=== PATIENT | female | born 1945 | race Caucasian/White ===

== ENCOUNTER 2019-04-20 12:21 | Outpatient (CLI) | payer MEDICARE, OTHER, SELFPAY ==
[2019-04-20 12:57] LABS: Hemoglobin A1C 5.7 % (<5.7)
[2019-04-20 13:01] LABS: Blood Urea Nitrogen 20 mg/dL (7-17); Calcium 8.5 mg/dL (8.4-10.2); Carbon Dioxide 18 mmol/L (22-30); Chloride 111 mmol/L (98-107); Estimated Glomerular Filt Rate 18; Glucose 274 mg/dL (65-105); Potassium 2.9 mmol/L (3.4-5.0); Sodium 140 mmol/L (137-145)
== END 2019-04-20 12:22 | disposition home or self-care (01) ==
PROVIDERS: PCP Family Medicine Adolescent Medicine; Visit Provider Family Medicine Adolescent Medicine
DX: N18.3 Chronic kidney disease, stage 3 (moderate) (principal); E11.22 Type 2 diabetes mellitus with diabetic chronic kidney disease
CPT/HCPCS: 36415; 80048; 83036

== ENCOUNTER 2019-05-17 14:35 | Outpatient (CLI) | payer MEDICARE, OTHER, SELFPAY ==
[2019-05-17 15:12] LABS: Hemoglobin 11.5 g/dL (12.0-15.0); Mean Corpuscular HGB Conc 32.9 g/dl (32-36); Mean Corpuscular Hemoglobin 27.8 pg (26-34); Mean Corpuscular Volume 84.7 fl (80-100); Platelet Count Result 174 k/mm3 (150-375); Red Blood Count 4.13 M/mm3 (4.2-5.4); Red Cell Distribution Width 14.7 % (11.5-14.5); White Blood Count 8.7 K/mm3 (4.5-10.0)
[2019-05-17 15:17] LABS: Potassium 3.8 mmol/L (3.4-5.0)
[2019-05-17 15:18] LABS: Alanine Aminotransferase 22 U/L (4-35); Albumin Level 2.9 g/dL (3.5-5.1); Alkaline Phosphatase 74 U/L (38-126); Aspartate Amino Transferase 21 U/L (14-36); Bilirubin,Total 0.4 mg/dL (0.2-1.3); Blood Urea Nitrogen 30 mg/dL (7-17); Calcium 8.6 mg/dL (8.4-10.2); Carbon Dioxide 21 mmol/L (22-30); Chloride 110 mmol/L (98-107); Estimated Glomerular Filt Rate 20; Glucose 124 mg/dL (65-105); Sodium 142 mmol/L (137-145)
== END 2019-05-17 14:36 | disposition home or self-care (01) ==
LOC: ANHLAB 14:37
PROVIDERS: PCP Family Medicine Adolescent Medicine; Visit Provider Family Medicine Adolescent Medicine
DX: R53.83 Other fatigue (principal); I12.9 Hypertensive chronic kidney disease with stage 1 through stage 4 chronic kidney disease, or unspecified chronic kidney disease; N18.4 Chronic kidney disease, stage 4 (severe); K50.913 Crohn's disease, unspecified, with fistula
CPT/HCPCS: 36415; 80053; 84443; 85027

== ENCOUNTER 2019-05-17 15:22 | Outpatient (CLI) | payer MEDICARE, OTHER, SELFPAY ==
--- NOTE | ~2019-05-17 | XR_ITS ---
XR knee RT min 4V 05/17/2019 15:53 Indication: Osteoarthritis. Chronic right knee pain. Procedure: 4 views right knee Comparison: No prior studies for comparison. Findings: There is mild tricompartment osteoarthritis. There is chondrocalcinosis. There is a small j oint effusion. Osteopenia. No acute fracture or traumatic malalignment. Impression: 1: Mild tricompartment osteoarthritis of the right knee. 2: Chondrocalcinosis. Reviewed, dictated and finalized at location B. GE MECHANIC Impression: 1: Mild tricompartment osteoarthritis of the right knee. 2: Chondrocalcinosis.
--- NOTE | ~2019-05-17 | XR_ITS ---
XR tibia fibula RT 2V 05/17/2019 15:53 Indication: Primary osteoarthritis Procedure: 2 views right tibia/fibula Comparison: No prior studies for comparison. Findings: Osteopenia. There is osteoarthritis of the right knee. No acute fracture or traumatic malal ignment. No significant soft tissue abnormality. No radiopaque foreign bodies. Impression: 1: No acute bone or joint abnormality. Reviewed, dictated and finalized at location B. H BURNER Impression: 1: No acute bone or joint abnormality.
== END 2019-05-17 15:23 | disposition home or self-care (01) ==
LOC: ANHIMG 15:27
PROVIDERS: PCP Family Medicine Adolescent Medicine; Visit Provider Family Medicine Adolescent Medicine
DX: M17.11 Unilateral primary osteoarthritis, right knee (principal)
CPT/HCPCS: 36415; 73564; 73590; 80053; 84443; 85027

== ENCOUNTER 2019-07-12 13:10 | Outpatient (CLI) | payer MEDICARE, SELFPAY ==
[2019-07-12 13:35] LABS: Hematocrit 37.5 % (37.0-47.0); Mean Corpuscular Hemoglobin 27.9 pg (26-34); Mean Corpuscular Volume 87.2 fl (80-100); Mean Platelet Volume 8.6 fl (7.4-10.4); Platelet Count Result 220 k/mm3 (150-375); White Blood Count 10.9 K/mm3 (4.5-10.0)
[2019-07-12 13:47] LABS: Creatinine Urine 100.5 mg/dL
[2019-07-12 13:51] LABS: Alanine Aminotransferase 23 U/L (4-35); Albumin Level 2.8 g/dL (3.5-5.1); Blood Urea Nitrogen 35 mg/dL (7-17); Calcium 8.8 mg/dL (8.4-10.2); Carbon Dioxide 21 mmol/L (22-30); Chloride 116 mmol/L (98-107); Cholesterol 209 mg/dL (0-200); Estimated Glomerular Filt Rate 15; Glucose 149 mg/dL (65-105); HDL Direct 39 mg/dL; Phosphorus 4.8 mg/dL (2.5-4.5); Potassium 4.1 mmol/L (3.4-5.0); Sodium 139 mmol/L (137-145); Triglycerides 221 mg/dL (<150)
[2019-07-12 13:55] LABS: Total Protein Urine Random > 600 mg/dL
[2019-07-12 14:01] LABS: LDL Cholesterol Direct 117 mg/dL; Parathyroid Intact 90.6 pg/mL (7.5-53.5)
[2019-07-12 14:42] LABS: Vitamin D 25 Hydroxy < 12.8 ng/mL
== END 2019-07-12 13:11 | disposition home or self-care (01) ==
PROVIDERS: PCP Family Medicine Adolescent Medicine; Referring Provider Family Medicine Adolescent Medicine; Visit Provider Internal Medicine Nephrology
DX: N18.4 Chronic kidney disease, stage 4 (severe) (principal); E78.5 Hyperlipidemia, unspecified
CPT/HCPCS: 36415; 80061; 80069; 82306; 82570; 83970; 84156; 84460; 85027

== ENCOUNTER 2019-08-24 00:33 | Outpatient (CLI) | payer MEDICARE, SELFPAY ==
[2019-08-24 17:33] LABS: SARS-CoV-2 RNA PCR Negative
== END 2019-08-24 00:34 | disposition home or self-care (01) ==
LOC: ANHCOVIDDT 00:34
PROVIDERS: PCP Family Medicine Adolescent Medicine; Visit Provider Internal Medicine Gastroenterology
DX: Z01.818 Encounter for other preprocedural examination (principal); Z11.59 Encounter for screening for other viral diseases
CPT/HCPCS: 87635; C9803; U0003

== ENCOUNTER 2019-08-26 00:46 | Day surgery (SDC) | payer MEDICARE, SELFPAY ==
[2019-08-23 14:25] VITALS: BMI 31.2
[2019-08-26] VITALS (7 sets, daily range): BP systolic 156–216; BP diastolic 68–89; PULSE 68–83; RESP 19–20; TEMP 36.6; O2SAT 98–99; BMI 32.5
[2019-08-26 07:09] LABS: Glucose Point of Care 129 (65-105)
--- NOTE | 2019-08-26 07:19 | WPDANESEPPF ---
Anes - Initial Pre Proc Eval Procedure: Operation Date: 08/26/19 08:00 Proposed Procedures p Colonoscopy - Isaac Melendez MD Date/Time: 08/26/19 07:19 Surgeon: Isaac Melendez MD Pre Op Diagnosis: Diarrhea Patient Data Age: 74 Gender: F Height: 5 ft 3 in Weight: 80 kg Allergies Allergy/AdvReac Type Severity Reaction Status Date / Time cortisone Allergy Intermediate Dyspnea / Verified 08/26/19 07:09 SOB Penicillins Allergy Intermediate Dyspnea / Verified 08/26/19 07:09 SOB Home Medications Medication Instructions Recorded Confirmed Type acetaminophen [Tylenol Arthritis 650 mg PO Q12H 08/23/19 08/26/19 History Pain] allopurinol 300 mg PO DAILY 08/23/19 08/26/19 History buspirone 10 mg PO BID 08/23/19 08/26/19 History ferrous sulfate 325 mg PO DAILY 08/23/19 08/26/19 History levothyroxine 75 mcg PO DAILY 08/23/19 08/26/19 History loperamide [Imodium A-D] 2 mg PO Q6H PRN 08/23/19 08/26/19 History metoprolol tartrate 50 mg PO Q12H 08/23/19 08/26/19 History gjcqzljx-coq-xyaa-FA-lutein 1 tablet PO DAILY 08/23/19 08/26/19 History [Centrum Silver Women] sertraline 100 mg PO DAILY 08/23/19 08/26/19 History simvastatin 10 mg PO DAILY 08/26/19 08/26/19 History vitamin B complex [Super B-50 1 cap PO DAILY 08/26/19 08/26/19 History Complex] Laboratory Tests 08/26/19 07:04 POC Capillary Glucose 129 mg/dl H mg/dl (65-105) Patient hx anesthesia problems: none Family hx anesthesia problems: none PMFSH Past Medical History Medical History CAD (coronary artery disease) Depression Hypertension BEKA (obstructive sleep apnea) Surgical History Surgical History Stented coronary artery Anes - Eval Final PreProcedure Day of Procedure 08/26/19 07:19 Patient weight: obese Heart: regular rate and rhythm Lungs: clear to auscultation Airway: Mallampati scale class II Neurological: alert and oriented Last oral intake: >/= 8 hours ASA classification: III Emergent: no Anesthetic plan: proceed Anesthesia type and monitoring: general GIVS and standard monitoring Informed Consent: The patient's anesthetic plan and its attendant risks and benefits were discussed with the patient/family/POA. Questions were solicited and answers provided to the satisfaction of the patient/family/POA.
[2019-08-26] MEDS: SODIUM CHLORIDE 0.9% IV 500 ML 10 ML IV CONT (07:23)
[2019-08-26] MEDS: LABETALOL HCL INJ 100 MG/20 ML VIAL IV PUSH (07:31)
--- NOTE | 2019-08-26 07:57 | WPDGICN ---
Assessment and Plan Assessment and plan (1) Abdominal pain: Code(s): R10.9 - Unspecified abdominal pain Status: Acute Assessment and Plan: Patient has diffuse poorly local localized abdominal pain suspicious for irritable bowel syndrome. She gives a history of inflammatory bowel disease but no confirmatory results have been identified. Plan is for colonoscopy for surveillance purposes also to assist with diagnosis. Subsequently she may require treatment for IBD or fiber for possible IBS. (2) History of Crohn's disease: Code(s): Z87.19 - Personal history of other diseases of the digestive system Status: Acute Assessment and Plan: Patient gives a history of Crohn's disease but this is not substantiated. Plan is to defer treatment until colonoscopy and possible small-bowel follow-through to assess for status of this diagnosis. Further recommendations pending colonoscopy. (3) Obesity (BMI 30.0-34.9): Code(s): E66.9 - Obesity, unspecified Status: Acute GI Consult Note Consult date/time: 08/26/19 07:57 HPI: Layla Maher is a 74 year old female Seen in evaluation at the request of Dr. Bonds. Patient presents because of complaints of abdominal pain. She describes rather diffuse abdominal pain. Diarrhea shortly after eating. She denies any bleeding or weight loss. Past medical history is significant for obesity. She has a history of stage 4 chronic kidney disease. She reports that she was diagnosed as having Crohn's disease 6 or 7 years ago but was never placed on medications. Current medications include Imodium taken for control of her diarrhea. Family history is noncontributory. Review of Systems Review of Systems: All systems reviewed & are unremarkable except as noted in HPI and below PMFSH Past Medical History Medical History CAD (coronary artery disease) Depression Hypertension BEKA (obstructive sleep apnea) Surgical History Surgical History Stented coronary artery Meds Home Medications and Allergies Home Medications Medication Instructions Recorded Confirmed Type acetaminophen [Tylenol Arthritis 650 mg PO Q12H 08/23/19 08/26/19 History Pain] allopurinol 300 mg PO DAILY 08/23/19 08/26/19 History buspirone 10 mg PO BID 08/23/19 08/26/19 History ferrous sulfate 325 mg PO DAILY 08/23/19 08/26/19 History levothyroxine 75 mcg PO DAILY 08/23/19 08/26/19 History loperamide [Imodium A-D] 2 mg PO Q6H PRN 08/23/19 08/26/19 History metoprolol tartrate 50 mg PO Q12H 08/23/19 08/26/19 History mhchkcfk-cdr-qetr-FA-lutein 1 tablet PO DAILY 08/23/19 08/26/19 History [Centrum Silver Women] sertraline 100 mg PO DAILY 08/23/19 08/26/19 History simvastatin 10 mg PO DAILY 08/26/19 08/26/19 History vitamin B complex [Super B-50 1 cap PO DAILY 08/26/19 08/26/19 History Complex] Allergies Allergy/AdvReac Type Severity Reaction Status Date / Time cortisone Allergy Intermediate Dyspnea / Verified 08/26/19 07:09 SOB Penicillins Allergy Intermediate Dyspnea / Verified 08/26/19 07:09 SOB Vital Signs Vital Signs - 24 hr 08/26/19 07:17 08/26/19 07:25 08/26/19 07:31 Temperature 36.6 C Pulse Rate 70 68 69 Respiratory Rate 20 Blood Pressure 189/89 H 216/68 H Pulse Oximetry 98 08/26/19 07:45 Temperature Pulse Rate 82 Respiratory Rate Blood Pressure 159/83 H Pulse Oximetry Exam Narrative: Exam Narrative: Physical exam reveals patient to be alert. Somewhat anxious at rest. HEENT exam unremarkable. She is anicteric. Lungs are clear to auscultation and percussion. Heart is without murmur or extra sounds. Abdominal exam she is obese. Bowel sounds are present soft no localized tenderness noted. Digital external rectal exam is normal.
== END 2019-08-26 09:29 | disposition home or self-care (01) ==
PROVIDERS: PCP Family Medicine Adolescent Medicine; Visit Provider Internal Medicine Gastroenterology
PROC: 0DJD8ZZ Inspection of Lower Intestinal Tract, Via Natural or Artificial Opening Endoscopic (ICD-10-PCS; CPT 45378; principal; 2019-08-26 08:00)
DX: K58.0 Irritable bowel syndrome with diarrhea (principal); K64.8 Other hemorrhoids; I10 Essential (primary) hypertension; I25.10 Atherosclerotic heart disease of native coronary artery without angina pectoris; G47.33 Obstructive sleep apnea (adult) (pediatric); F32.9 Major depressive disorder, single episode, unspecified; Z95.5 Presence of coronary angioplasty implant and graft; E66.9 Obesity, unspecified; Z68.32 Body mass index [BMI] 32.0-32.9, adult
CPT/HCPCS: 45378; J2704; J7040

== ENCOUNTER 2019-08-30 07:37 | Outpatient (CLI) | payer MEDICARE, SELFPAY ==
--- NOTE | ~2019-08-30 | XR_ITS ---
EXAMINATION: XR small bowel follow through DATE: 08/30/2019 09:41 INDICATION: Abdominal pain. Diarrhea. TECHNIQUE: Oral contrast was administered, and a time course of radiographs of the abdomen was obtain ed. Fluoroscopy of the small bowel was performed. Fluoroscopy exposure time was 0.3 minutes. The tota l number of images was 13. COMPARISON: CT abdomen and pelvis 07/26/2014 FINDINGS: There are no dilated loops of bowel. No mass or stricture. The terminal ileum is normal. Transit time from the stomach to proximal colon was approximately 1.5 hours. Surgical clips in the right upper qu adrant are likely from cholecystectomy. IMPRESSION: 1. Normal small bowel series. Reviewed, dictated and finalized at location A.
== END 2019-08-30 07:38 | disposition home or self-care (01) ==
PROVIDERS: PCP Family Medicine Adolescent Medicine; Visit Provider Internal Medicine Gastroenterology
DX: R10.9 Unspecified abdominal pain (principal); R19.7 Diarrhea, unspecified
CPT/HCPCS: 74250

== ENCOUNTER 2019-09-14 14:28 | Outpatient (CLI) | payer MEDICARE, SELFPAY ==
[2019-09-14 15:16] LABS: Albumin Level 2.6 g/dL (3.5-5.1); Blood Urea Nitrogen 32 mg/dL (7-17); Calcium 7.9 mg/dL (8.4-10.2); Carbon Dioxide 17 mmol/L (22-30); Chloride 120 mmol/L (98-107); Estimated Glomerular Filt Rate 12; Glucose 175 mg/dL (65-105); Phosphorus 4.9 mg/dL (2.5-4.5); Sodium 140 mmol/L (137-145)
== END 2019-09-14 14:29 | disposition home or self-care (01) ==
PROVIDERS: PCP Family Medicine Adolescent Medicine; Referring Provider Family Medicine Adolescent Medicine; Visit Provider Internal Medicine Nephrology
DX: N18.4 Chronic kidney disease, stage 4 (severe) (principal)
CPT/HCPCS: 36415; 80069

== ENCOUNTER 2019-09-29 15:54 | Outpatient (CLI) | payer MEDICARE, SELFPAY ==
[2019-09-29 16:53] LABS: Hematocrit 34.4 % (37.0-47.0); Mean Corpuscular Hemoglobin 28.7 pg (26-34); Mean Corpuscular Volume 89.8 fl (80-100); Mean Platelet Volume 8.9 fl (7.4-10.4); Platelet Count Result 233 k/mm3 (150-375); Red Blood Count 3.83 M/mm3 (4.2-5.4); Red Cell Distribution Width 16.8 % (11.5-14.5); White Blood Count 9.9 K/mm3 (4.5-10.0)
[2019-09-29 17:01] LABS: Alanine Aminotransferase 36 U/L (4-35); Albumin Level 2.9 g/dL (3.5-5.1); Alkaline Phosphatase 94 U/L (38-126); Aspartate Amino Transferase 35 U/L (14-36); Bilirubin,Total < 0.1 mg/dL (0.2-1.3); Blood Urea Nitrogen 37 mg/dL (7-17); Calcium 8.3 mg/dL (8.4-10.2); Carbon Dioxide 18 mmol/L (22-30); Chloride 117 mmol/L (98-107); Estimated Glomerular Filt Rate 12; Glucose 146 mg/dL (65-105); Potassium 3.3 mmol/L (3.4-5.0); Sodium 141 mmol/L (137-145)
[2019-09-29 17:13] LABS: Add Urine Microscopic? YES; Appearance Urine Clear (Clear); Bacteria Urine Trace /hpf; Bilirubin Urine Negative (Negative); Blood Urine Negative (Negative); Color Urine Yellow (Yellow); Glucose Urine UA 2+ mg/dL (Negative); Ketones Urine Negative (Negative); Leukocyte Esterase Ur Negative LEU/UL (NEGATIVE); Mucus Urine Rare /lpf; Nitrate Urine Negative (Negative); Protein Urine 3+ mg/dL (Negative); RBC Urine 0-2 /hpf (0-2); Specific Grav Ur 1.018 (1.001-1.035); Squamous Epithelial Cell Urine Occasional /hpf (Few); Urobilinogen Urine Negative mg/dL (<2.0); WBC Urine 16-20 /hpf (0-3)
== END 2019-09-29 15:55 | disposition home or self-care (01) ==
LOC: ANHLAB 15:59
PROVIDERS: PCP Family Medicine Adolescent Medicine; Visit Provider Family Medicine Adolescent Medicine
DX: E11.22 Type 2 diabetes mellitus with diabetic chronic kidney disease (principal); R53.83 Other fatigue; N18.4 Chronic kidney disease, stage 4 (severe); K50.913 Crohn's disease, unspecified, with fistula
CPT/HCPCS: 36415; 80053; 81001; 83036; 85027

== ENCOUNTER 2019-10-28 15:29 | Outpatient (CLI) | payer MEDICARE, SELFPAY ==
[2019-10-28 16:19] LABS: Hematocrit 32.1 % (37.0-47.0); Hemoglobin 10.4 g/dL (12.0-15.0); Mean Corpuscular HGB Conc 32.4 g/dl (32-36); Mean Corpuscular Volume 89.4 fl (80-100); Platelet Count Result 200 k/mm3 (150-375); Red Blood Count 3.59 M/mm3 (4.2-5.4); Red Cell Distribution Width 16.4 % (11.5-14.5); White Blood Count 9.8 K/mm3 (4.5-10.0)
[2019-10-28 16:26] LABS: Creatinine Urine 97.4 mg/dL
[2019-10-28 16:30] LABS: Albumin Level 2.9 g/dL (3.5-5.1); Anion Gap 8 mmol/L (8-16); Blood Urea Nitrogen 41 mg/dL (7-17); Calcium 8.2 mg/dL (8.4-10.2); Carbon Dioxide 15 mmol/L (22-30); Chloride 117 mmol/L (98-107); Estimated Glomerular Filt Rate 11; Glucose 120 mg/dL (65-105); Potassium 3.3 mmol/L (3.4-5.0); Sodium 140 mmol/L (137-145)
[2019-10-28 16:42] LABS: Parathyroid Intact 54.5 pg/mL (7.5-53.5)
[2019-10-28 17:12] LABS: Total Protein Urine Random > 600 mg/dL
[2019-10-28 17:47] LABS: Vitamin D 25 Hydroxy < 12.8 ng/mL
== END 2019-10-28 15:30 | disposition home or self-care (01) ==
LOC: ANHLAB 15:34
PROVIDERS: PCP Family Medicine Adolescent Medicine; Visit Provider Internal Medicine Nephrology
DX: N18.4 Chronic kidney disease, stage 4 (severe) (principal)
CPT/HCPCS: 36415; 80069; 82306; 82570; 83970; 84156; 85027

== ENCOUNTER 2020-01-21 06:44 | Outpatient (NON) | payer MEDICARE, SELFPAY ==
[2020-01-23 00:53] LABS: SARS-CoV-2 RNA PCR Negative
== END 2020-01-21 06:45 ==
PROVIDERS: PCP Family Medicine Adolescent Medicine
DX: Z01.812 Encounter for preprocedural laboratory examination (principal); Z20.828 Contact with and (suspected) exposure to other viral communicable diseases
CPT/HCPCS: 87635; C9803; U0003

== ENCOUNTER 2020-01-30 17:51 | Emergency (ER) | payer MEDICARE, SELFPAY ==
[2020-01-30 18:01] VITALS: BP 214/77; PULSE 80; RESP 16; TEMP 36.5; O2SAT 100
--- NOTE | 2020-01-30 18:06 | ECG_ITS ---
Measurements Intervals [place] Rate: 77 P: -4 FL: 170 QRS: -29 QRSD: 90 T: 110 QT: 406 QTc: 460 Interpretive Statements SINUS RHYTHM DELAYED PRECORDIAL R/S TRANSITION BORDERLINE ST-T WAVE ABNORMALITY- HIGH LATERAL LEADS BORDERLINE ECG Electronically Signed On 01-30-2020 20:29:04 PATTERNMAKER PRESSURE CAST by Brennen Keenan D.O.
[2020-01-30 18:48] VITALS: BP 218/74; PULSE 76; RESP 16; O2SAT 98
--- NOTE | 2020-01-30 18:55 | ED.RECABL ---
HPI - Recheck/Abnormal Lab/Rx General Chief Complaint: Recheck/Abnormal Lab/Rx Stated Complaint: htn Time Seen by Provider: 01/30/20 18:29 Source: patient Mode of arrival: ambulatory Limitations: no limitations History of Present Illness HPI narrative: This is a 74 year old female that presents to the ER for hypertension. Reports she was sent here by her home health nurse because her blood pressure was elevated. Patient denies any symptoms currently. Denies vision changes, dizziness, chest pain, shortness of breath, or headache. Related Data Home Medications Medication Instructions Recorded Confirmed acetaminophen [Tylenol Arthritis 650 mg PO Q12H 08/23/19 08/26/19 Pain] allopurinol 300 mg PO DAILY 08/23/19 08/26/19 buspirone 10 mg PO BID 08/23/19 08/26/19 ferrous sulfate 325 mg PO DAILY 08/23/19 08/26/19 levothyroxine 75 mcg PO DAILY 08/23/19 08/26/19 loperamide [Imodium A-D] 2 mg PO Q6H PRN 08/23/19 08/26/19 metoprolol tartrate 50 mg PO Q12H 08/23/19 08/26/19 yodlkvzz-ahu-lhrk-FA-lutein 1 tablet PO DAILY 08/23/19 08/26/19 [Centrum Silver Women] sertraline 100 mg PO DAILY 08/23/19 08/26/19 simvastatin 10 mg PO DAILY 08/26/19 08/26/19 vitamin B complex [Super B-50 1 cap PO DAILY 08/26/19 08/26/19 Complex] Allergies Allergy/AdvReac Type Severity Reaction Status Date / Time cortisone Allergy Intermediate Dyspnea / Verified 08/26/19 07:09 SOB Penicillins Allergy Intermediate Dyspnea / Verified 08/26/19 07:09 SOB Review of Systems Review of Systems: Narrative: CONSTITUTIONAL: Denies fever CARDIOVASCULAR: Denies chest pain RESPIRATORY: Denies dyspnea. NEUROLOGIC: Denies headache, numbness, or weakness. All systems reviewed & are unremarkable except as noted in HPI and below PMFSH Past Medical History Medical History (Updated 01/30/20 @ 20:39 by Nicole Cronin PA-C) CAD (coronary artery disease) Depression History of end stage renal disease Hypertension BEKA (obstructive sleep apnea) Surgical History Surgical History Stented coronary artery Social History Social History Gender identity (if verbalized by the patient): Female Exam Narrative: Exam Narrative: GENERAL: Well-appearing, well-nourished, and in no acute distress. HEAD: Normocephalic, atraumatic. EYES: PERRLA and EOMI. ENT: Nares clear, no rhinorrhea or epistaxis. Mucous membranes moist. Oropharynx without tonsillar hypertrophy exudate or other lesions. NECK: Supple. No adenopathy or masses. CHEST: Clear to auscultation. No respiratory distress. No wheezes rales or rhonchi HEART: Regular rate and rhythm. No murmur heard. Normal peripheral pulses. ABDOMEN: Soft, nontender, nondistended, normal active bowel sounds. Peritoneal dialysis catheter in place, bandage is clean dry and intact. No surrounding erythema, edema or abnormal drainage EXTREMITIES: Normal range of motion. 1+ pitting edema to the bilateral lower extremities SKIN: Warm, dry, no rash. NEURO: No focal deficits. Alert and oriented x3. PSYCH: Normal mood and affect Course Consultations Consultation #1: Spoke with patient's primary about patient and work-up. Would like amlodipine 5 mg added on to hypertension regimen. Will follow-up in clinic Date: 01/30/20 Time: 20:37 Vital Signs Vital signs: Vital Signs Temperature 97.7 F 01/30/20 18:01 Pulse Rate 80 01/30/20 18:01 Respiratory Rate 16 01/30/20 18:01 Blood Pressure 214/77 H 01/30/20 18:01 Pulse Oximetry 100 01/30/20 18:01 Temperature 97.7 F 01/30/20 18:01 Pulse Rate 83 01/30/20 20:23 Respiratory Rate 17 01/30/20 20:23 Blood Pressure 202/88 H 01/30/20 20:23 Pulse Oximetry 98 01/30/20 20:23 MDM - Recheck/Abnormal Lab/Rx MDM Narrative Medical decision making narrative: Patient presents to the emergency department for elevated blood pressure reading. Was sent here by jared
[2020-01-30 19:12] VITALS: PULSE 78
[2020-01-30] MEDS: METOPROLOL TARTRATE 50 MG TAB PO (19:12)
[2020-01-30 19:40] VITALS: BP 208/90; PULSE 82; RESP 17; O2SAT 98
[2020-01-30 20:23] VITALS: BP 202/88; PULSE 83; RESP 17; O2SAT 98
[2020-01-30] MEDS: amLODIPine BESYLATE 5 MG TABLET PO (20:40)
== END 2020-01-30 20:40 | disposition home or self-care (01) ==
PROVIDERS: Emergency Provider Emergency Medicine; PCP Family Medicine Adolescent Medicine
DX: I12.0 Hypertensive chronic kidney disease with stage 5 chronic kidney disease or end stage renal disease (principal); N18.6 End stage renal disease; I25.10 Atherosclerotic heart disease of native coronary artery without angina pectoris; F32.9 Major depressive disorder, single episode, unspecified; G47.33 Obstructive sleep apnea (adult) (pediatric); R94.31 Abnormal electrocardiogram [ECG] [EKG]
CPT/HCPCS: 93005; 99283; A9270

== ENCOUNTER 2020-02-02 10:44 | Inpatient (IN) | payer MEDICARE, SELFPAY ==
[2020-02-02] VITALS (11 sets, daily range): BP systolic 152–210; BP diastolic 60–83; PULSE 66–80; RESP 16–21; TEMP 35.9–36.6; O2SAT 98–100; BMI 33.0; BMI 30.9
--- NOTE | ~2020-02-02 | XR_ITS ---
XR chest 1V DATE: 02/02/2020 11:39 INDICATION: Abdominal pain. Infection. History of Crohn's disease. TECHNIQUE: AP view COMPARISON: 03/30/2019 and 03/15/2018 CT thorax FINDINGS: There is prominent opacity along the right cardiac margin of uncertain significance, not ex plained by prior CT examinations of the chest; repeat CT thorax is recommended. Approximately 1.5 cm opacity is suggested overlying the lateral right lower lung. No pulmonary consolidation is noted. No pleural effusion or pulmonary vascular congestion or pneumoth orax. Borderline heart size. IMPRESSION: Prominent opacity along the right cardiac margin; consider CT thorax for further evaluati on Reviewed, dictated and finalized at location B. ER CHOPPER IMPRESSION: Prominent opacity along the right cardiac margin; consider CT thora x for further evaluation
--- NOTE | ~2020-02-02 | CT_ITS ---
EXAMINATION: CT chest wo con EXAM DATE: 02/02/2020 12:09 INDICATION: Abnormal x-ray. TECHNIQUE: Spiral CT of the chest without contrast. Axial, coronal and sagittal images were reviewe d. Coronal maximum intensity pixel images of chest reviewed. The dose-length product (DLP) for this examination was 327.54 mGy-cm. The exposure was tailored according to patient size (auto mA exposur e control), and iterative reconstruction (ASIR) was used as additional dose reduction technique. Comp arison is made to prior examination from 03/15/2018, 03/30/2019. FINDINGS: Lobular right lower lobe nodules unchanged compared to prior studies, largest measuring 2- 3 cm depending on which plane measured in. There is no other right lower lobe 10 mm nodule also uncha nged. Trace right pleural effusion. Small cluster of left lower lobe nodules unchanged. There is mod erate-sized pericardial effusion. Tracheobronchial tree is patent. There is no mediastinal, hilar or axillary lymphadenopathy. There is no pneumothorax. Heart normal in size. The interventricula r septum is perceptible, suggesting patient is anemic. There are likely coronary arterial stent or s tents. Correlate with prior cardiac history. Cholecystectomy clips. Left renal arterial stent. Perih epatic dialysate. There is moderate thoracic spondylosis without osteoblastic or osteolytic lesions identified. IMPRESSION: 1. Stable pulmonary nodules, benign. 2. Moderate pericardial, small right pleural effusions. Reviewed, dictated and finalized at location A. OGIST AIDE
--- NOTE | ~2020-02-02 | CT_ITS ---
EXAMINATION: CT abdomen pelvis wo con EXAM DATE: 02/02/2020 11:20 INDICATION: Abdominal pain near peritoneal dialysis catheter. TECHNIQUE: Spiral CT of the abdomen and pelvis was performed without contrast. Axial, coronal and s agittal images were reviewed. The dose-length product (DLP) for this examination was 955.86 mGy-cm. The exposure was tailored according to patient size (auto mA exposure control), and iterative recons truction (ASIR) was used as additional dose reduction technique. Comparison is made to prior examinat ion from 07/26/2014. FINDINGS: Some generalized body wall edema. Peritoneal dialysis catheter in position with small amoun t of abdominal dialysate present. The liver, spleen, adrenal glands and pancreas are unremarkable. There are surgical clips in the gallbladder fossa. Some biliary duct dilation which is common findin g following cholecystectomy. There is no nephrolithiasis or hydronephrosis. Mild to moderate bilater al renal atrophy. Several renal cysts measuring up to 1.8 cm and the left kidney. The uterus is not identified and has likely been surgically resected. The bladder is unremarkable. There is no retrop eritoneal or pelvic lymphadenopathy. There is mild scattered arteriosclerotic disease. The appendix is normal. The stomach and small bowel are unremarkable. There is expected amount of c olonic stool. No free intraperitoneal gas. There is moderate-sized pericardial effusion, new comp ared to previous examination. The interventricular septum is perceptible, suggesting patient is anemi c. Lobular right lower lobe nodule measuring about 2 cm, unchanged compared to 2015, benign histol ogy such as hamartoma. Additional smaller right lower lobe nodule, stable or slightly decreased in si ze. There are no osteoblastic or osteolytic lesions identified. IMPRESSION: 1. No acute intra-abdominal findings. 2. Moderate pericardial effusion. 3. Stable right lower lobe nodules, benign. Reviewed, dictated and finalized at location A. K HANDLER
--- NOTE | 2020-02-02 11:07 | ECG_ITS ---
Measurements Intervals [place] Rate: 65 P: 27 UT: 220 QRS: -16 QRSD: 102 T: 121 QT: 433 QTc: 452 Interpretive Statements SINUS RHYTHM BORDERLINE AV CONDUCTION DELAY DELAYED PRECORDIAL R/S TRANSITION ST-T WAVE ABNORMALITY IN HIGH LATERAL LEADS- CONSIDER ISCHEMIA ABNORMAL ECG Electronically Signed On 02-02-2020 14:21:06 REFRIGERATION SPECIALIST by Brennen Keenan D.O.
--- NOTE | 2020-02-02 11:28 | ED.GENADULT ---
HPI - General Adult General Chief complaint: Abdominal Pain Stated complaint: infected peritoneal dialysis catheter Time Seen by Provider: 02/02/20 10:48 Source: patient and EMS Mode of arrival: EMS Limitations: no limitations History of Present Illness HPI narrative: Patient is a 74-year-old female who presents with feeling weak with some diarrhea over the last couple of days patient had on the a peritoneal dialysis catheter placed at [facility] patient has not began her peritoneal dialysis at this time patient lives at home by herself patient denies any URI symptoms chest pain shortness of breath presents in no distress notes some mild discomfort of the abdomen Related Data Home Medications Medication Instructions Recorded Confirmed acetaminophen [Tylenol Arthritis 650 mg PO Q12H 08/23/19 08/26/19 Pain] allopurinol 300 mg PO DAILY 08/23/19 08/26/19 buspirone 10 mg PO BID 08/23/19 08/26/19 ferrous sulfate 325 mg PO DAILY 08/23/19 08/26/19 levothyroxine 75 mcg PO DAILY 08/23/19 08/26/19 loperamide [Imodium A-D] 2 mg PO Q6H PRN 08/23/19 08/26/19 metoprolol tartrate 50 mg PO Q12H 08/23/19 08/26/19 ihhicjdo-nvl-sgap-FA-lutein 1 tablet PO DAILY 08/23/19 08/26/19 [Centrum Silver Women] sertraline 100 mg PO DAILY 08/23/19 08/26/19 simvastatin 10 mg PO DAILY 08/26/19 08/26/19 vitamin B complex [Super B-50 1 cap PO DAILY 08/26/19 08/26/19 Complex] Allergies Allergy/AdvReac Type Severity Reaction Status Date / Time cortisone Allergy Intermediate Dyspnea / Verified 02/02/20 11:08 SOB Penicillins Allergy Intermediate Dyspnea / Verified 02/02/20 11:08 SOB Review of Systems Review of Systems: All systems reviewed & are unremarkable except as noted in HPI and below PMFSH Past Medical History Medical History CAD (coronary artery disease) Depression History of end stage renal disease Hypertension BEKA (obstructive sleep apnea) Surgical History Surgical History Stented coronary artery Social History Social History Gender identity (if verbalized by the patient): Female Exam Narrative: Exam Narrative: GENERAL: Well-appearing, well-nourished, and in no acute distress. HEAD: Normocephalic, atraumatic. EYES: PERRLA and EOMI. ENT: Nares clear, no rhinorrhea or epistaxis. Mucous membranes moist. CHEST: Clear to auscultation. No respiratory distress. No wheezes rales or rhonchi HEART: Regular rate and rhythm. No murmur heard. Normal peripheral pulses. ABDOMEN: Soft, mild tenderness of the abdomen, nondistended. Surgical sites of the abdomen are without erythema or warmth to touch no redness or swelling around the peritoneal dialysis catheter in the left lower abdomen EXTREMITIES: Normal range of motion. No edema. SKIN: Warm, dry, no rash. NEURO: No focal deficits. Alert and oriented x3. Cranial nerves II through XII grossly intact PSYCH: Normal mood and affect. Course Vital Signs Vital signs: Vital Signs Temperature 97.8 F 02/02/20 11:02 Pulse Rate 69 02/02/20 11:02 Respiratory Rate 20 02/02/20 11:02 Blood Pressure 152/79 H 02/02/20 11:02 Pulse Oximetry 100 02/02/20 11:02 Temperature 97.8 F 02/02/20 11:02 Pulse Rate 69 02/02/20 11:02 Respiratory Rate 20 02/02/20 11:02 Blood Pressure 152/79 H 02/02/20 11:02 Pulse Oximetry 100 02/02/20 11:02 Medical Decision Making Vital Signs Vital Signs: Vital Signs Temperature 97.8 F 02/02/20 11:02 Pulse Rate 69 02/02/20 11:02 Respiratory Rate 20 02/02/20 11:02 Blood Pressure 152/79 H 02/02/20 11:02 Pulse Oximetry 100 02/02/20 11:02 Temperature 97.8 F 02/02/20 11:02 Pulse Rate 69 02/02/20 11:02 Respiratory Rate 20 02/02/20 11:02 Blood Pressure 152/79 H 02/02/20 11:02 Pulse Oximetry 100 02/02/20 11:02 Di
--- NOTE | 2020-02-02 11:37 | ED.ABDPAIN ---
HPI - Abdominal Pain General Chief Complaint: Abdominal Pain Stated Complaint: infected peritoneal dialysis catheter Time Seen by Provider: 02/02/20 10:48 Source: patient Mode of arrival: ambulatory Limitations: no limitations History of Present Illness HPI narrative: Patient is a 74-year-old female who presents from home for evaluation of diarrhea fatigue and abdominal discomfort over the last several days patient notes that she had peritoneal dialysis catheter placed on the at [facility] is followed by Dr. Joe. Patient notes loose stools denies any rectal bleeding melena denies fever chills URI symptoms or other complaints presents in no distress patient arrived per private vehicle patient has yet to begin peritoneal dialysis Related Data Home Medications Medication Instructions Recorded Confirmed acetaminophen [Tylenol Arthritis 650 mg PO Q12H 08/23/19 08/26/19 Pain] allopurinol 300 mg PO DAILY 08/23/19 08/26/19 buspirone 10 mg PO BID 08/23/19 08/26/19 ferrous sulfate 325 mg PO DAILY 08/23/19 08/26/19 levothyroxine 75 mcg PO DAILY 08/23/19 08/26/19 loperamide [Imodium A-D] 2 mg PO Q6H PRN 08/23/19 08/26/19 metoprolol tartrate 50 mg PO Q12H 08/23/19 08/26/19 tiissyxa-oxx-qfhe-FA-lutein 1 tablet PO DAILY 08/23/19 08/26/19 [Centrum Silver Women] sertraline 100 mg PO DAILY 08/23/19 08/26/19 simvastatin 10 mg PO DAILY 08/26/19 08/26/19 vitamin B complex [Super B-50 1 cap PO DAILY 08/26/19 08/26/19 Complex] Allergies Allergy/AdvReac Type Severity Reaction Status Date / Time cortisone Allergy Intermediate Dyspnea / Verified 02/02/20 11:08 SOB Penicillins Allergy Intermediate Dyspnea / Verified 02/02/20 11:08 SOB Review of Systems Review of Systems: All systems reviewed & are unremarkable except as noted in HPI and below PMFSH Past Medical History Medical History (Updated 02/02/20 @ 13:27 by Trevin Shipman PA-C) CAD (coronary artery disease) Chronic kidney disease, stage 5 Depression Diarrhea Erythropoietin deficiency anemia History of end stage renal disease Hypertension BEKA (obstructive sleep apnea) Peritonitis Surgical History Surgical History Stented coronary artery Social History Social History Smoking status: Never smoker Gender identity (if verbalized by the patient): Female Exam Narrative: Exam Narrative: GENERAL: Well-appearing, well-nourished, and in no acute distress. HEAD: Normocephalic, atraumatic. EYES: PERRLA and EOMI. ENT: Nares clear, no rhinorrhea or epistaxis. Mucous membranes moist. CHEST: Clear to auscultation. No respiratory distress. No wheezes rales or rhonchi HEART: Regular rate and rhythm. No murmur heard. Normal peripheral pulses. ABDOMEN: Soft, mild tenderness of the abdomen no rebound or guarding, nondistended, normal active bowel sounds. Surgical sites without erythema warmth to touch or drainage no erythema drainage or other abnormalities around the peritoneal dialysis catheter EXTREMITIES: Normal range of motion. No edema. SKIN: Warm, dry, no rash. NEURO: No focal deficits. Alert and oriented x3. Cranial nerves II through XII grossly intact PSYCH: Normal mood and affect. Course Course Emergency Course: Patient will be brought into the hospital per request of stippler antibiotics initiated in the emergency department will be treated for peritonitis patient is agreeing with this plan is hemodynamically stable ABCs stable patient felt appropriate for inpatient treatment. Patient resting comfortably in the room no distress Consultations Consultation #1: Discussed case with nephrology Dr. Joe who ordered an biotics to be given will have culture and cell count on peritoneal fluid placed in hospital for peritonitis patient case also discussed with the hospitalist Date: 02/02/20 Time: 13:24 Vital Signs Vital signs: Vital Sig
[2020-02-02 11:57] LABS: Basophils Absolute Auto 0.1 K/mm3 (0.0-0.1); Basophils Percent Auto 0.4 % (0.2-1.2); Eosinophils Absolute Auto 0.5 K/mm3 (0-0.3); Eosinophils Percent Auto 3.9 % (0-4.4); Hematocrit 29.2 % (37.0-47.0); Hemoglobin 9.2 g/dL (12.0-15.0); Immature Granulocyte Absolute 0.15 K/mm3 (0.00-0.031); Immature Granulocyte Percent A 1.2 % (0-0.5); Lymphocytes Percent Auto 15.7 % (18.3-44.2); Mean Corpuscular HGB Conc 31.5 g/dl (32-36); Mean Corpuscular Hemoglobin 28.8 pg (26-34); Mean Corpuscular Volume 91.5 fl (80-100); Mean Platelet Volume 9.1 fl (7.4-10.4); Monocytes Absolute Auto 1.1 K/mm3 (0.1-0.6); Monocytes Percent Auto 8.8 % (2.6-8.5); Platelet Count Result 262 k/mm3 (150-375); Red Blood Count 3.19 M/mm3 (4.2-5.4); Red Cell Distribution Width 17.2 % (11.5-14.5); White Blood Count 12.8 K/mm3 (4.5-10.0)
[2020-02-02 12:02] LABS: Add Urine Microscopic? YES; Appearance Urine Clear (Clear); Bilirubin Urine Negative (Negative); Blood Urine Negative (Negative); Color Urine Yellow (Yellow); Glucose Urine UA 2+ mg/dL (Negative); Ketones Urine Negative (Negative); Leukocyte Esterase Ur Negative LEU/UL (Negative); Mucus Urine Rare /lpf; Nitrate Urine Negative (Negative); Protein Urine 3+ mg/dL (Negative); Specific Grav Ur 1.023 (1.001-1.035); Squamous Epithelial Cell Urine Few /hpf (Few); Urobilinogen Urine Negative mg/dL (<2.0)
[2020-02-02 12:07] LABS: Prothrombin Time 13.4 Seconds (11.1-14.7)
[2020-02-02 12:08] LABS: Partial Thromboplastin Time 24.5 SECONDS (22.3-36.8)
[2020-02-02 12:14] LABS: Lactic Acid Reflex 0.5 mmol/L (0.7-2.1); Magnesium 1.9 mg/dL (1.6-2.3)
[2020-02-02 12:16] LABS: Alanine Aminotransferase 29 U/L (4-35); Albumin Level 2.7 g/dL (3.5-5.1); Alkaline Phosphatase 80 U/L (38-126); Anion Gap 6 mmol/L (8-16); Aspartate Amino Transferase 24 U/L (14-36); Bilirubin,Total 0.3 mg/dL (0.2-1.3); Blood Urea Nitrogen 44 mg/dL (7-17); CRP 0.6 mg/dL (<1.0); Calcium 8.1 mg/dL (8.4-10.2); Carbon Dioxide 17 mmol/L (22-30); Chloride 119 mmol/L (98-107); Estimated CRCL calculation 9 ml/min; Estimated Glomerular Filt Rate 8; Glucose 152 mg/dL (65-105); Lipase 302 U/L (23-300); Potassium 3.3 mmol/L (3.4-5.0); Sodium 142 mmol/L (137-145)
--- NOTE | 2020-02-02 13:02 | PM.CNNEP ---
Assessment and Plan Assessment and plan (1) Chronic kidney disease, stage 5: Code(s): N18.5 - Chronic kidney disease, stage 5 Status: Acute Assessment and Plan: the patient has chronic kidney disease stage 5. This is most likely due to hypertension and sleep apnea. Her creatinine is a little higher than it was back in October. It is not so high that we need to urgently do hemodialysis right now. (2) Peritonitis: Code(s): K65.9 - Peritonitis, unspecified Status: Acute Assessment and Plan: the patient has cloudy fluid. This is somewhat of a complex situation. One possibility is that she has bacterial peritonitis from contamination from her stool. She could also have translocated bacteria if her Crohn's disease is active. She does not have very much belly pain, however, so this is not an obvious diagnosis. Another possibility is that she has active Crohn's disease with inflammation and there is some sympathetic leukocytosis in the peritoneal cavity because of the inflammation of the colon. The stool cultures and cell count will help us with this. Just in case of infection the patient is receiving vancomycin and Fortaz. I will also add a g of vancomycin in the PD fluid when the dialysis nurses can come and do this. (3) Erythropoietin deficiency anemia: Code(s): D63.1 - Anemia in chronic kidney disease Status: Acute Assessment and Plan: Hemoglobin is a little bit low. I will add some Epogen (4) BEKA (obstructive sleep apnea): Code(s): G47.33 - Obstructive sleep apnea (adult) (pediatric) Status: Acute Assessment and Plan: the patient uses a CPAP machine (5) Hypertension: Code(s): I10 - Essential (primary) hypertension Status: Acute Assessment and Plan: her blood pressure is doing better than it was before. Will continue amlodipine for now (6) History of Crohn's disease: Code(s): Z87.19 - Personal history of other diseases of the digestive system Status: Acute Assessment and Plan: will have Dr. Melendez see While she is here. Is There something else we can do for her diarrhea? History of Present Illness Reason for Consult Consult date: 02/02/20 Chief Complaint Chief complaint: infected peritoneal dialysis catheter History of Present Illness Narrative: Layla is a very pleasant 74-year-old lady who has multiple medical problems including Crohn's disease, chronic kidney disease stage 5, gout, anemia, depression, anxiety, hyperlipidemia, coronary disease, hypertension, sleep apnea. The patient is approaching dialysis. For this reason she went to see Dr. Jordan narayanan who placed a peritoneal dialysis catheter last Thursday. There was a significant amount of adhesions so she also had adhesioysis. There was some bleeding so she was kept that evening. The next day her catheter flushed well so she was discharged. On Thursday the patient had a flush and this went well also. Thursday night she had high blood pressure so went to the ER and they started her on amlodipine. Her blood pressure has been better since then. Yesterday her Crohn's acted up. She had he large amounts of diarrhea. Apparently this stool welled up in her pants and contaminated her catheter. She did not call when this happened but did come to clinic today for another flush. When they brought the fluid out is looked cloudy. He is not having much belly pain. Because of the cloudy fluid she was sent to the emergency room. She says that she does have diarrhea frequently. She says that if she does not eat anything that diarrhea goes away. She says that she saw Dr. ubrnett recently who did a colonoscopy and this showed that the Crohn's was not too bad. So since then she has been using Imodium and dietary measures to slow down her diarrhea. She has no fevers or chills. No belly pain. No blood in her stools. Review of Systems C
--- NOTE | 2020-02-02 13:41 | PM.IMHP ---
H&P: HPI History of Present Illness Date/Time: 02/02/20 13:41 Chief complaint: peritonitis Narrative: Layla Maher is a 74 year old female Who has end-stage renal disease. She sees Dr. Joe. The patient had a peritoneal dialysis catheter placed on the of this month at [facility]. The patient has Crohn's disease and has chronic diarrhea. The patient stated that her insertion site was healing and it was itching until she had a large liquid stool and had gotten it into the surgical site. The patient tells me that she sees Dr. balderrama for her Crohn's disease. She is not on any long-term medications for her Crohn's disease. She takes Imodium for the diarrhea. She stated that she had a colonoscopy about a month ago and was told that everything was fine. She still continues to have loose stools. She denies any blood in her stool. She denies any fever chills. She stated that she had 3 COVID test already and she was negative. Her last COVID test was just prior to her dialysis catheter placement on 01/21/2020 she was found to be negative for COVID. Patient had cloudy fluid drawn from her dialysis catheter and was sent for cultures. Her chest CT was read as stable pulmonary nodules benign. Moderate pericardial small right pleural effusions. abdomen /pelvis CT was read as no acute intra-abdominal findings. Moderate pericardial effusion. Stable right lower lobe nodules benign. Dr. Joe has already seen the patient in the emergency room. The patient was started on vancomycin and Fortaz. Her white count was noted to be 12.8. H&H is 9.2 and 29.2. Potassium 3.3. Chloride 119. Anion gap is 6. BUN 44 creatinine 5.30. The patient was placed in inpatient admission. Date of service is 02/02/2020. Review of Systems Review of Systems: All systems reviewed & are unremarkable except as noted in HPI and below Constitutional: Constitutional: Reports as per HPI and Reports no additional constitutional complaints Eyes: Eyes: Reports as per HPI and Reports no additional eye complaints ENT: Reports system reviewed and no additional complaints, except as documented and Reports Normal hearing present Cardiovascular: Cardiovascular: Reports no additional cardiovascular complaints Respiratory: Respiratory: Reports no additional respiratory complaints and Reports no additional respiratory complaints Gastrointestinal: Gastrointestinal: Reports as per HPI and Reports no additional gastrointestinal complaints Musculoskeletal: Musculoskeletal: Reports no additional musculoskeletal complaints Integumentary/Breasts: Skin/Breast: Reports system reviewed and no additional complaints, except as docu and Reports as per HPI Neurologic: Reports system reviewed and no additional complaints, except as documented, Reports as per HPI and Reports Normal hearing present Psychiatric: Psychiatric: Reports no additional psychiatric complaints and Reports as per HPI Endocrine: Endocrine: Reports no additional endocrine complaints Hematologic/Lymphatic: Hematologic/Lymphatic: Reports no additional hematologic/lymphatic complaints Allergic/Immunologic: Allergic/Immunologic: Reports no additional allergic/immunologic complaints [facility] Past Medical History Medical History (Updated 02/02/20 @ 13:52 by Talya Gallego NP) Anemia of chronic disease CAD (coronary artery disease) 3 cardiac stents Chronic kidney disease, stage 5 Crohn's disease Depression Depression with anxiety Diarrhea DM2 (diabetes mellitus, type 2) the patient continues to monitor blood sugars even though she is no longer on any medications that she lost 40 lb. Erythropoietin deficiency anemia History of end stage renal disease History of kidney stones Hyperlipidemia Hypertension Hypothyroidism BEKA (obstructive sleep apnea) She no longer uses a CPAP machine since she lost 40 lb. Peripheral vascular disease Peritonitis Surgical History Surgical History (Updated 02/02/20 @ 1
--- NOTE | 2020-02-02 13:47 | PC.NURSE ---
TOMASAR faxed to [address] [place] [address].
--- NOTE | 2020-02-02 14:05 | ADMGEN ---
This patient, Layla Maher, was admitted to Medical Room 344-01. Patient/family oriented to hospital policies and general routines including ID bracelet, bed and alarms, visiting hours, pain management, procedures, bathroom and other care routines, personal items, smoking policy, room service/diet, and visiting hours. Information on how to activate the Rapid Response Team has been discussed. Patient/Family are encouraged to report perceived risks to care and to ask questions if they do not understand what they are told or what they should do.
[2020-02-02] MEDS: LACTATED RINGERS 1,000 ML 70 ML IV CONT (14:44)
[2020-02-02 16:27] LABS: Appearance Peritoneal Fluid Cloudy (Clear); Source Peritoneal Fluid Peritoneal Fluid
[2020-02-02 16:29] LABS: Color Peritoneal Fluid Other (Colorless); Lymphocytes Peritoneal Fluid 42 %; Macrophages Peritoneal Fluid 26 %; Mesothelial Cells Peritoneal Fluid 6 %; Neutrophils Peritoneal Fluid 26 % (0-25); Nucleated Cells Peritoneal Flu 90 /uL (0-500); RBC Peritoneal Fluid 1935 /uL (0-100000)
--- NOTE | 2020-02-02 16:42 | WPDGICN ---
Assessment and Plan Assessment and plan (1) Diarrhea: Code(s): R19.7 - Diarrhea, unspecified Status: Acute Assessment and Plan: Patient gives a history of chronic diarrhea. Recent GI evaluation fails to confirm any evidence for Crohn's disease. Colonoscopy was normal as was small-bowel follow-through period yet this remains on her record. Plan is to obtain IBD serology to hopefully exclude this condition. Because of her chronic diarrhea stool cultures will be obtained. Patient has noted some benefit with fiber supplementation which suggested irritable bowel syndrome as a contributing cause. At the present time will await stool cultures and try to limit her Imodium use. Given her history of diabetes diabetic diarrhea appears to be a very likely etiology at the present time period (2) Peritonitis: Code(s): K65.9 - Peritonitis, unspecified Status: Acute Assessment and Plan: Peritonitis is likely etiology for abdominal pain. Currently on antibiotics. Under the direction of the Nephrology service. (3) DM2 (diabetes mellitus, type 2): Code(s): E11.9 - Type 2 diabetes mellitus without complications Status: Chronic Assessment and Plan: Patient does have a history of diabetes mellitus was to likely also contributes to her chronic diarrhea. (4) Chronic kidney disease, stage 5: Code(s): N18.5 - Chronic kidney disease, stage 5 Status: Chronic GI Consult Note Consult date/time: 02/02/20 16:42 HPI: Layla Maher is a 74 year old female I am asked to see at the request of the hospitalist service for chronic diarrhea. Patient reports having diarrhea for many years. In the distant past it was felt she may have had Crohn's disease. She was recently seen my my service because of ongoing diarrhea. She is not taking medicines for Crohn's disease for many years. Recent colonoscopy was performed which revealed a normal findings. Small-bowel follow-through also obtained was unremarkable suggesting no evidence for Crohn's disease. Patient was started on fiber supplements with marked improvement of her diarrhea. She states her stools became somewhat more solid. Out of habit she continues take Imodium twice a day. So it is uncertain what her baseline bowel habits are. She recently complained of worsening diarrhea. She apparently has a standing history of chronic kidney disease for which she is on peritoneal dialysis since period dialysis catheter placed on 01/25/2020. She has developed pain at the catheter site is felt to have peritonitis on this basis. Patient denies any blood in her stools. She denies a any abdominal cramping. Her family history reveals no history of inflammatory bowel disease. Review of Systems Review of Systems: All systems reviewed & are unremarkable except as noted in HPI and below PMFSH Past Medical History Medical History (Updated 02/02/20 @ 13:52 by Talya Gallego NP) Anemia of chronic disease CAD (coronary artery disease) 3 cardiac stents Chronic kidney disease, stage 5 Crohn's disease Depression Depression with anxiety Diarrhea DM2 (diabetes mellitus, type 2) the patient continues to monitor blood sugars even though she is no longer on any medications that she lost 40 lb. Erythropoietin deficiency anemia History of end stage renal disease History of kidney stones Hyperlipidemia Hypertension Hypothyroidism BEKA (obstructive sleep apnea) She no longer uses a CPAP machine since she lost 40 lb. Peripheral vascular disease Peritonitis Surgical History Surgical History (Updated 02/02/20 @ 13:52 by Talya Gallego NP) H/O oophorectomy H/O: hysterectomy History of colonoscopy History of renal stent Hx of cystoscopy Stented coronary artery Social History Social History Smoking status: Never smoker Alcohol intake: never Substance use: never Substance use type: does
[2020-02-02 16:43] LABS: Glucose Point of Care 203 (65-105)
[2020-02-02] MEDS: GENTAMICIN SULFATE 0.1% CR 15 GM TUBE 1 APPLIC TOPICAL (18:40)
[2020-02-02] MEDS: busPIRone HCL 10 MG TABLET PO (18:59)
[2020-02-02] MEDS: oxyCODONE/ACETAMINOPHEN (*CRX) 5-325 MG TABLET 1 TABLET PO (21:08)
[2020-02-02] MEDS: METOPROLOL TARTRATE 50 MG TAB PO (21:09)
[2020-02-02] MEDS: FAMOTIDINE 20 MG/2 ML VIAL IV PUSH (21:09)
[2020-02-02] MEDS: oxyCODONE HCL (*CRX) 2.5 MG TAB IR PO (21:11)
[2020-02-02 22:42] LABS: Glucose Point of Care 139 (65-105)
[2020-02-03] VITALS (8 sets, daily range): BP systolic 167–197; BP diastolic 48–73; PULSE 65–80; RESP 16–17; TEMP 36–36.4; O2SAT 95–100
--- NOTE | 2020-02-03 | ECHO_ITS ---
Patient Info Name: Layla Maher Age: 74 years : 1945 Gender: Female Ht: 63 in Wt: 175 lbs BSA: 1.91 m2 HR: 75 bpm BP: 167 / 48 mmHg Heart Rhythm: Sinus Rhythm Technical Quality: Good Exam Date: 02/03/2020 11:34 AM Exam Location: [facility] Pulmonary Patient Status: Inpatient Admit Date: 02/02/2020 Staff Ordering Physician: Adriana Hutchins PA-C Machine Cloth Examiner: Alicia Holloway RDCS Attending Provider: Adriana Hutchins PA-C Referring Physician: Liset SULLIVAN; Exam Type: CA echo doppler color flow Study Info Indications I31.3 - Pericardial effusion (noninflammatory) Complete two-dimensional, color flow and Doppler transthoracic echocardiogram is performed. Summary 1. Complete two-dimensional, color flow and Doppler transthoracic echocardiogram is performed. 2. There is moderate concentric increased left ventricular wall thickness. 3. Left ventricular systolic function is normal, estimated at 55-60%. 4. There is small circumferential pericardial effusion. 5. There is invagination of the right atrial free wall but no evidence of RV diastolic collapse. Left Ventricle Left ventricular chamber dimension is normal. Left ventricular systolic function is normal, estimated at 55-60%. There is moderate concentric increased left ventricular wall thickness. The left ventricular diastolic function is grade I diastolic dysfunction. Right Ventricle Right ventricular chamber dimension is normal. Left Atria Left atrial chamber dimension is mildly enlarged. Right Atria Right atrial chamber dimension is normal. Aortic Valve The aortic valve is normal. Pulmonic Valve The pulmonic valve is normal. Mitral Valve The mitral valve has normal leaflets. There is trace mitral valve regurgitation. Tricuspid Valve The tricuspid valve leaflets are normal. Pericardium/Pleural There is small circumferential pericardial effusion. Effusion thickness measures 0.5-1.0 cm. Aorta The aortic root size at the sinus of Valsalva is normal. Left Ventricular Outflow Tract Name Value Normal LVOT 2D LVOT Diameter 2.1 cm LVOT Doppler LVOT Peak Velocity 109 cm/s LVOT Peak Gradient 5 mmHg LVOT Mean Gradient 3 mmHg LVOT VTI 21 cm LVOT VTI/AV VTI Ratio 0.7 LVOT Stroke Volume 71 ml LVOT CO 5.4 l/min LVOT CI 2.8 l/min/m2 Pulmonic Valve Name Value Normal RVOT Doppler RVOT Peak Gradient 3 mmHg PV Doppler PV Peak Velocity 103 cm/s PV Peak Gradient 4 mmHg Mitral Valve
[2020-02-03 06:03] LABS: Alanine Aminotransferase 23 U/L (4-35); Albumin Level 2.2 g/dL (3.5-5.1); Alkaline Phosphatase 62 U/L (38-126); Anion Gap 6 mmol/L (8-16); Aspartate Amino Transferase 18 U/L (14-36); Bilirubin,Total 0.3 mg/dL (0.2-1.3); Blood Urea Nitrogen 42 mg/dL (7-17); Calcium 7.9 mg/dL (8.4-10.2); Carbon Dioxide 17 mmol/L (22-30); Chloride 119 mmol/L (98-107); Estimated CRCL calculation 10 ml/min; Estimated Glomerular Filt Rate 9; Glucose 110 mg/dL (65-105); Magnesium 1.8 mg/dL (1.6-2.3); Sodium 142 mmol/L (137-145)
[2020-02-03 06:20] LABS: Basophils Percent Auto 0.3 % (0.2-1.2); Eosinophils Absolute Auto 0.5 K/mm3 (0-0.3); Eosinophils Percent Auto 4.2 % (0-4.4); Hematocrit 26.3 % (37.0-47.0); Hemoglobin 8.4 g/dL (12.0-15.0); Immature Granulocyte Absolute 0.09 K/mm3 (0.00-0.031); Immature Granulocyte Percent A 0.8 % (0-0.5); Lymphocytes Absolute Auto 2.01 K/mm3 (0.9-3.2); Lymphocytes Percent Auto 18.9 % (18.3-44.2); Mean Corpuscular HGB Conc 31.9 g/dl (32-36); Mean Corpuscular Hemoglobin 28.8 pg (26-34); Mean Corpuscular Volume 90.1 fl (80-100); Mean Platelet Volume 8.8 fl (7.4-10.4); Monocytes Absolute Auto 0.9 K/mm3 (0.1-0.6); Monocytes Percent Auto 8.5 % (2.6-8.5); Neutrophils Absolute Auto 7.2 K/mm3 (1.3-6.7); Neutrophils Percent Auto 67.3 % (45.5-73.1); Platelet Count Result 240 k/mm3 (150-375); Red Blood Count 2.92 M/mm3 (4.2-5.4); Red Cell Distribution Width 17.2 % (11.5-14.5); White Blood Count 10.7 K/mm3 (4.5-10.0)
[2020-02-03] MEDS: LEVOTHYROXINE SODIUM 75 MCG TABLET PO (06:24)
[2020-02-03] MEDS: LACTATED RINGERS 1,000 ML 70 ML IV CONT (06:25)
[2020-02-03 06:55] LABS: Lactic Acid Reflex < 0.5 mmol/L (0.7-2.1)
[2020-02-03 07:04] LABS: Hemoglobin A1C 4.8 % (<5.7)
[2020-02-03 07:28] LABS: Glucose Point of Care 112 (65-105)
[2020-02-03] MEDS: SIMVASTATIN 10 MG TABLET PO (08:37)
[2020-02-03] MEDS: VITAMIN B COMPLEX CAPSULE 1 CAP PO (08:37)
[2020-02-03] MEDS: allopurinoL 300 MG TABLET PO (08:37)
[2020-02-03] MEDS: busPIRone HCL 10 MG TABLET PO ×2 (08:37→16:51)
[2020-02-03] MEDS: POTASSIUM CHLORIDE 20 MEQ TABLET 40 MEQ PO (08:37)
[2020-02-03] MEDS: amLODIPine BESYLATE 5 MG TABLET PO (08:37)
[2020-02-03] MEDS: FAMOTIDINE 20 MG/2 ML VIAL IV PUSH ×2 (08:37→21:00)
[2020-02-03] MEDS: FERROUS SULFATE 324 MG TABLET PO (08:37)
[2020-02-03] MEDS: THERAPEUTIC MULTIVITAMINS/MINERALS TAB (*BKC) 1 TABLET PO (08:37)
[2020-02-03] MEDS: GENTAMICIN SULFATE 0.1% CR 15 GM TUBE 1 APPLIC TOPICAL ×3 (08:38→16:52)
[2020-02-03] MEDS: METOPROLOL TARTRATE 50 MG TAB PO ×2 (08:39→20:58)
--- NOTE | 2020-02-03 09:29 | WPDGIPROGNO ---
Progress Note: A&P Additional Plan Patient alert and comfortable this morning. Reports no diarrhea stools with no bowel movements overnight. This morning more comfortable. Physical exam reveals her to be a alert. Less anxious today. Lungs are clear. Heart without murmur. Abdomen bowel sounds are present soft some tenderness at the peritoneal dialysis catheter. She is somewhat obese. Impression 1. Chronic diarrhea. A component of irritable bowel syndrome suggested. Stool cultures are in progress. No evidence for Crohn's disease by recent workup. IBD serology is in progress. Plan is for fiber supplementation. Further recommendations after stool cultures obtained. 2. End-stage renal disease. Now on peritoneal dialysis. 3. Diabetes mellitus. Diarrhea may be on the basis of diabetes. 4. Peritonitis. Currently being managed with antibiotic therapy. Likely related to peritoneal dialysis catheter. Subjective Date/time seen: 02/03/20 09:29 Objective Data Vital Signs Vital Signs: Vital Signs - 24 hr 02/02/20 11:02 02/02/20 11:49 02/02/20 12:13 Temperature 97.8 F Pulse Rate 69 66 73 Respiratory Rate 20 17 Blood Pressure 152/79 H Pulse Oximetry 100 100 100 02/02/20 12:15 02/02/20 12:16 02/02/20 12:30 Temperature Pulse Rate 70 69 71 Respiratory Rate 21 H 19 17 Blood Pressure 171/60 H Pulse Oximetry 100 100 100 02/02/20 12:46 02/02/20 14:05 02/02/20 19:45 Temperature 97.0 F L 96.6 F L Pulse Rate 71 74 79 Respiratory Rate 18 18 16 Blood Pressure 205/72 H 189/75 H Pulse Oximetry 100 100 98 02/02/20 19:47 02/02/20 21:09 02/03/20 05:40 Temperature 96.8 F L Pulse Rate 80 65 Respiratory Rate 16 Blood Pressure 210/83 H 197/72 H Pulse Oximetry 95 02/03/20 08:00 02/03/20 08:39 02/03/20 08:45 Temperature Pulse Rate 75 75 75 Respiratory Rate 16 16 Blood Pressure 167/48 H Pulse Oximetry 100 100 Intake/Output Intake/Output: Intake & Output 01/31/20 02/01/20 02/02/20 02/03/20 23:59 23:59 23:59 23:59 Intake Total 657.126 5419 Output Total 450 800 Balance 21.875 600 Meds/Results Medications: Active Medications Generic Name Dose Route Start Last Admin Trade Name Frenayan PRN Reason Stop Dose Admin Allopurinol 300 mg 02/03/20 09:00 02/03/20 08:37 Allopurinol 300 Mg Tablet PO 300 mg DAILY SUKI Administration Amlodipine Besylate 5 mg 02/03/20 09:00 02/03/20 08:37 Amlodipine Besylate 5 Mg Tablet PO 5 mg DAILY SUKI Administration Buspirone HCl 10 mg 02/02/20 17:25 02/03/20 08:37 Buspirone Hcl 10 Mg Tablet PO 10 mg BID SUKI Administration Dextrose 12.5 gm 02/02/20 13:18 Dextrose 50% 25 Gm/50 Ml Syringe IV PUSH PRN PRN Hypoglycemia Protocol Famotidine 20 mg 02/02/20 21:00 02/03/20 08:37 Famotidine 20 Mg/2 Ml Vial IV PUSH 20 mg Q12HR SUKI Administration Ferrous Sulfate 324 mg 02/03/20 09:00 02/03/20 08:37 Ferrous Sulfate 324 Mg Tablet PO 324 mg DAILY SUKI Administration Gentamicin Sulfate 1 applic 02/02/20 17:30 02/03/20 08:38 Gentamicin Sulfate 0.1% Cr 15 Gm Tube TOPICAL 1 applic TID SUKI Administration Glucagon 1 mg 02/02/20 13:18 Glucagon For Inj 1 Mg Vial IM PRN PRN Hypoglycemia Protocol Glucose 15 gm 02/02/20 13:18 Glucose Oral Gel 15 Gm Of Glucse In 37.5 Gm Tube PO PRN PRN Hypoglycemia Protocol Hydralazine HCl 10 mg 02/03/20 07:57 Hydralazine Hcl 20 Mg/Ml Vial IV PUSH Q8H PRN SBP >180, DBP >100 Dextrose 1,000 mls @ 100 mls/hr 02/02/20 13:18 Dextrose 5% 1,000 Ml IVPB PRN PRN Hypoglycemia Protocol Acetaminophen 1,000 mg in 100 mls @ 400 mls/hr 02/02/20 13:28 Ofirmev 1,000 Mg Ivpb IVPB 02/03/20 13:29 Q6H PRN Mild Pain (1-3) or Fever Gentamicin Sulfate 75 mg/ 101.875 mls @ 100 mls/hr 02/04/20 18:00 Dextrose IVPB Q48H [facility] Insulin Aspart 2 - 5 unit
[2020-02-03 10:23] LABS: Vancomycin Random 17.1 ug/mL (10-20)
--- NOTE | 2020-02-03 11:24 | PM.IMPN ---
Progress Note: A&P Assessment and Plan (1) Peritonitis: Code(s): K65.9 - Peritonitis, unspecified Status: Acute Assessment and Plan: The patient had an episode of severe diarrhea 01/31 and the stool contaminated her catheter. She went to the office for a flush and the fluid was cloudy in appearance. She was informed to proceed to the ED due to concern for peritonitis. She is on empiric gentamicin at this time. Blood cultures and peritoneal cultures are pending. Initial anaerobic peritoneal cultures show no growth and aerobic cultures are pending. Cell counts show 26% neutrophils and 90 nucleated cells. Peritoneal fluid is cloudy. Nephrology is following. Management per nephrology. (2) Crohn's disease: Code(s): K50.90 - Crohn's disease, unspecified, without complications Status: Chronic Assessment and Plan: She has chronic diarrhea and takes immodium. Stool cultures were ordered as well as inflammatory bowel disease panel. She also had a recent colonoscopy which demonstrated mild nonspecific inflammation and internal hemorrhoids. SBFT was also normal per GI reports. GI is following and input is appreciated. Await stool cultures and IBD panel. Continue fiber supplementation. (3) Hypothyroidism: Code(s): E03.9 - Hypothyroidism, unspecified Status: Chronic Assessment and Plan: TSH is normal at 3.76. Continue levothyroxine. (4) Pericardial effusion: Code(s): I31.3 - Pericardial effusion (noninflammatory) Status: Acute Assessment and Plan: CT chest showed moderate sized pericardial effusion. This is likely secondary to CKD stage 5. Small pericardial effusion was visualized on CT chest 03/31/19. Echocardiogram was performed and demonstrates small circumferential pericardial effusion and invagination of the right atrial free wall without evidence of RV diastolic collapse. I will ask cardiology to see her for further recommendations. She is hemodynamically stable. (5) Erythropoietin deficiency anemia: Code(s): D63.1 - Anemia in chronic kidney disease Status: Acute Assessment and Plan: She is receiving EPO per nephrology. Continue to monitor hemoglobin and hematocrit. She has no evidence of ongoing bleeding. Transfuse as needed to maintain Hb >7. (6) Hypertension: Code(s): I10 - Essential (primary) hypertension Status: Acute Assessment and Plan: Blood pressures are fluctuant but intermittently elevated. Amlodipine was initiated recently and will be increased to 10mg PO QD. Dr. Joe is following. Hydralazine is available PRN for severe BP elevation. Continue to monitor. (7) Chronic kidney disease, stage 5: Code(s): N18.5 - Chronic kidney disease, stage 5 Status: Chronic Assessment and Plan: Secondary to hypertension and BEKA. She follows with Dr. Joe. PD catheter was recently placed 01/21/[address] [facility] by Dr. Bartlett in anticipation of peritoneal dialysis in the future. She is stable at this time. Management per nephrology. (8) Hyperlipidemia: Code(s): E78.5 - Hyperlipidemia, unspecified Status: Chronic Assessment and Plan: LFTs are normal. Continue simvastatin. (9) Depression with anxiety: Code(s): F41.8 - Other specified anxiety disorders Status: Chronic Assessment and Plan: Continue prior to admission sertraline and buspirone. (10) DM2 (diabetes mellitus, type 2): Code(s): E11.9 - Type 2 diabetes mellitus without complications Status: Chronic Assessment and Plan: Hemoglobin A1c was 4.8%. Blood sugars well-controlled. She is not on any hypoglycemics at this time since her insulin resistance improved with weight loss. Continue ACHS glucose monitoring, sliding scale insulin, and hypoglycemia protocol. (11) Hypokalemia: Code(s): E87.6 - Hypokalemia Status: Acute Assessment and Bob
[2020-02-03 11:36] LABS: Glucose Point of Care 159 (65-105)
--- NOTE | 2020-02-03 13:35 | PM.PNNEP ---
Progress Note: A&P Assessment and Plan (1) Chronic kidney disease, stage 5: Code(s): N18.5 - Chronic kidney disease, stage 5 Status: Chronic Assessment and Plan: the patient has chronic kidney disease stage 5. This is most likely due to hypertension and sleep apnea. Her creatinine is a little higher than it was back in October. labs stable. no need for HD. she starts training soon. (2) Peritonitis: Code(s): K65.9 - Peritonitis, unspecified Status: Acute Assessment and Plan: the patient has cloudy fluid. This is somewhat of a complex situation. fluid shows only 90 nuc cells. no peritoneal irritation on exam. the pain she has is drain pain, not related to peritonitis. this is just a sign of irritation from the tube on something internal like bowel wall or parietal peritoneum. it may be related to the adhesiolysis. culture is pending so will continue atbs until cx is back. I added triglycerides to the fluid from yesterday. (3) Erythropoietin deficiency anemia: Code(s): D63.1 - Anemia in chronic kidney disease Status: Acute Assessment and Plan: Hemoglobin is a little bit low. I added Epogen (4) BEKA (obstructive sleep apnea): Code(s): G47.33 - Obstructive sleep apnea (adult) (pediatric) Status: Acute Assessment and Plan: the patient uses a CPAP machine (5) Hypertension: Code(s): I10 - Essential (primary) hypertension Status: Acute Assessment and Plan: her blood pressure is doing better than it was before. Will continue amlodipine for now (6) History of Crohn's disease: Code(s): Z87.19 - Personal history of other diseases of the digestive system Status: Acute Assessment and Plan: Dr Melendez is on the case. Subjective Date/time seen: 02/03/20 13:35 Interval history: pt is getting PD. she had vanco IP overnight. She is getting 3 rapid flushes now. she was seen at 1:15pm pt is having pain upon draining when she gets to about 400cc in the cavity. she is not having pain unless she is in the late drain. she is up and walking the halls. Review of Systems Cardiovascular: Cardiovascular: Reports no additional cardiovascular complaints Respiratory: Respiratory: Reports no additional respiratory complaints Gastrointestinal: Gastrointestinal: Reports no additional gastrointestinal complaints Genitourinary: Genitourinary: Reports no additional female genitourinary complaints Exam Narrative: Exam Narrative: WDWN in NAD skin no rash head ncat lungs clear cor reg no rub abd BS+ nontender and soft some tenderness at the surgical site (only a week old) exit site looks okay. some serosanguinous fluid draining. ext no edema. Objective Data Vital Signs Vital Signs: Vital Signs - 24 hr 02/02/20 14:05 02/02/20 19:45 02/02/20 19:47 Temperature 36.1 C L 35.9 C L Pulse Rate 74 79 Respiratory Rate 18 16 Blood Pressure 205/72 H 189/75 H 210/83 H Pulse Oximetry 100 98 02/02/20 21:09 02/03/20 05:40 02/03/20 08:00 Temperature 36.0 C L Pulse Rate 80 65 75 Respiratory Rate 16 16 Blood Pressure 197/72 H Pulse Oximetry 95 100 02/03/20 08:39 02/03/20 08:45 Temperature Pulse Rate 75 75 Respiratory Rate 16 Blood Pressure 167/48 H Pulse Oximetry 100 Intake/Output Intake/Output: Intake & Output 01/31/20 02/01/20 02/02/20 02/03/20 23:59 23:59 23:59 23:59 Intake Total 255.402 2711 Output Total 450 -100 Balance 21.875 2240 Meds/Results Medications: Active Medications Generic Name Dose Route Start Last Admin Trade Name Freq PRN Reason Stop Dose Admin Allopurinol 300 mg 02/03/20 09:00 02/03/20 08:37 Allopurinol 300 Mg Tablet PO 300 mg DAILY SUKI Administration Amlodipine Besylate 5 mg 02/03/20 09:00 02/03/20 08:37 Amlodipine Besylate 5 Mg Tablet PO 5 mg DAILY SUKI Administration Buspirone HCl 10 mg 01/14
--- NOTE | 2020-02-03 13:37 | PC.NURSE ---
RN consult: 3 in/out PD flushes performed per MD order. Flushes performed to assist with pt comfort. MD in room during process and aware that pt retained an estimated 500 ml of 1.5% dianeal (can not continue drain due to pt discomfort).
[2020-02-03 13:45] LABS: Immunochemical Fecal Occult Bl Negative (N)
[2020-02-03 13:46] LABS: IFOB Positive Control Positive
[2020-02-03] MEDS: hydrALAZINE HCL 20 MG/ML VIAL 10 MG IV PUSH (14:08)
[2020-02-03 16:27] LABS: Glucose Point of Care 227 (65-105)
[2020-02-03] MEDS: INSULIN ASPART (*BKC) 100 UNITS/ML SUB-Q (16:52)
--- NOTE | 2020-02-03 17:36 | PCRCNOTE ---
PT REFUSES BIPAP/CPAP AUTO TITRATE. STATES THAT SHE DOES NOT WEAR ONE AT HOME AND HAS NEVER HAD A SLEEP STUDY. DINORAH COVINGTON NOTIFIED.
--- NOTE | 2020-02-03 18:31 | PM.CNCAR ---
Assessment and Plan Additional Plan 74-year-old female with: Stage 5 chronic kidney disease nearing the need for dialysis. She has a uremic pericardial effusion and I do not believe there is anything more to this than that. Uremic effusion such as this rarely become hemodynamically embarrassing and this 1 is not either. Infusions due to uremia can become a large however when they do they typically expand very gradually over time and as such the pericardium typically expands to accommodate the fluid and rarely results in tamponade physiology. There is no echocardiographic or physical exam evidence of tamponade in this lady and there are no specific cardiac recommendations. I informed her that when she does start dialysis very commonly these effusions may decrease in size over time Kirby Farrell MD [facility] History of Present Illness History of Present Illness Consult date/time: 02/03/20 18:31 Reason For Visit: peritonitis Narrative: This is a 74-year-old woman I am seeing this evening at the request of the hospitalist because she has been found to have a pericardial effusion. She is a patient with chronic kidney disease and is nearing the need for dialysis. 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 Jamshid Joe who has been participating in her care here at the hospital as well. She was hospitalized here yesterday it looks like with suspected bacterial peritonitis related to soiling of a recently implanted peritoneal dialysis catheter. she is not having any cardiac complaints or concerns. Part of her evaluation included a CT of the chest which did demonstrate the presence of some pericardial fluid. The finding led to a echocardiogram being requested which I read a short time ago. She does have a small circumferential pericardial effusion which as I mentioned in the report measures between 0.5 and 1 cm in thickness between the epicardial surface and the pericardium. She does have left ventricular hypertrophy with good systolic function. The echocardiogram does demonstrate some invagination of the right atrial free wall due to the increased intrapericardial pressure. As I mentioned in the report there is no stigmata of tamponade right ventricular diastolic collapse is not identified. Because of the findings on the echo I have been asked to see her in consultation. She is receiving antibiotics for her peritonitis and appears to be in fairly good spirits and does not have any other complaints this evening. Review of Systems Constitutional: Constitutional: Reports no additional constitutional complaints Eyes: Eyes: Reports no additional eye complaints ENT: Reports system reviewed and no additional complaints, except as documented Cardiovascular: Cardiovascular: Reports no additional cardiovascular complaints Respiratory: Respiratory: Reports no additional respiratory complaints Gastrointestinal: Gastrointestinal: Reports as per HPI Comments: Patient admitted with abdominal pain as mentioned above due to her peritonitis Genitourinary: Genitourinary: Reports no additional female genitourinary complaints Musculoskeletal: Musculoskeletal: Reports no additional musculoskeletal complaints Integumentary/Breasts: Skin/Breast: Reports system reviewed and no additional complaints, except as docu Endocrine: Endocrine: Reports no additional endocrine complaints Hematologic/Lymphatic: Hematologic/Lymphatic: Reports no additional hematologic/lymphatic complaints Allergic/Immunologic: Allergic/Immunologic: Reports no additional allergic/immunologic complaints [facility] Past Medical History Medical History (Updated 02/03/20 @ 15:42 by Adriana Hutchins PA-C) Anemia of chronic disease CAD (coronary artery disease) 3 cardiac stents Chronic kidney disease, stage 5 Crohn's disease Depression Depression with anxiety Diarrhea DM2 (diabetes mellitus, type 2) the patient continues to monitor blood sugars even though she is no longer on any medications th
[2020-02-03] MEDS: HEPARIN SODIUM 5,000 UNITS/ML VIAL 5000 UNITS SUB-Q (21:01)
[2020-02-03] MEDS: oxyCODONE HCL (*CRX) 2.5 MG TAB IR PO (21:15)
[2020-02-03 22:34] LABS: Glucose Point of Care 170 (65-105)
[2020-02-04] MEDS: LEVOTHYROXINE SODIUM 75 MCG TABLET PO (05:33)
[2020-02-04] MEDS: HEPARIN SODIUM 5,000 UNITS/ML VIAL 5000 UNITS SUB-Q ×2 (05:33→13:39)
[2020-02-04 05:41] VITALS: BP 183/73; PULSE 75; RESP 16; TEMP 36.2; O2SAT 98
[2020-02-04] MEDS: hydrALAZINE HCL 20 MG/ML VIAL 10 MG IV PUSH (05:50)
[2020-02-04 06:34] LABS: Hematocrit 28.1 % (37.0-47.0); Hemoglobin 8.9 g/dL (12.0-15.0); Mean Corpuscular HGB Conc 31.7 g/dl (32-36); Mean Corpuscular Hemoglobin 28.3 pg (26-34); Mean Corpuscular Volume 89.2 fl (80-100); Mean Platelet Volume 8.8 fl (7.4-10.4); Platelet Count Result 261 k/mm3 (150-375); Red Blood Count 3.15 M/mm3 (4.2-5.4); White Blood Count 11.1 K/mm3 (4.5-10.0)
[2020-02-04 06:50] LABS: Anion Gap 8 mmol/L (8-16); Blood Urea Nitrogen 45 mg/dL (7-17); Calcium 8.2 mg/dL (8.4-10.2); Carbon Dioxide 15 mmol/L (22-30); Chloride 119 mmol/L (98-107); Estimated CRCL calculation 9 ml/min; Estimated Glomerular Filt Rate 9; Glucose 136 mg/dL (65-105); Magnesium 1.8 mg/dL (1.6-2.3); Potassium 3.4 mmol/L (3.4-5.0); Sodium 142 mmol/L (137-145)
[2020-02-04 08:00] VITALS: PULSE 73; RESP 16; O2SAT 98
--- NOTE | 2020-02-04 08:19 | WPDGIPROGNO ---
Progress Note: A&P Additional Plan Patient alert and comfortable this morning. Much less anxious. She states she has had no diarrhea and has had good control of bowel movements with no accidents. Current medications include for bowel movements include only fiber supplement Physical exam reveals abdomen to be obese. Some tenderness at peritoneal dialysis site. Impression 1. Chronic diarrhea. Likely irritable bowel syndrome. Plan is to continue fiber supplementation. Stool cultures are pending. There is been no evidence for Crohn's disease. This diagnosis should be excluded at this point. 2. Chronic kidney disease. Patient now on peritoneal dialysis per renal service. 3. Diabetes mellitus. Likely a contributing factor for her diarrhea. Diabetic diarrhea is likely if diarrhea returns. 4. Peritonitis. Patient appears to have this on the basis of peritoneal dialysis. Antibiotics in progress. Subjective Date/time seen: 02/04/20 08:19 Objective Data Vital Signs Vital Signs: Vital Signs - 24 hr 02/03/20 08:39 02/03/20 08:45 02/03/20 14:00 Temperature 97.6 F Pulse Rate 75 75 70 Respiratory Rate 16 16 Blood Pressure 167/48 H 194/72 H Pulse Oximetry 100 100 02/03/20 17:35 02/03/20 20:58 02/03/20 21:39 Temperature 97.2 F L Pulse Rate 80 75 Respiratory Rate 17 Blood Pressure 175/73 H Pulse Oximetry 99 100 02/04/20 05:41 Temperature 97.1 F L Pulse Rate 75 Respiratory Rate 16 Blood Pressure 183/73 H Pulse Oximetry 98 Intake/Output Intake/Output: Intake & Output 02/01/20 02/02/20 02/03/20 02/04/20 23:59 23:59 23:59 23:59 Intake Total 913.391 9527 420 Output Total 450 700 Balance 21.875 2510 420 Meds/Results Medications: Active Medications Generic Name Dose Route Start Last Admin Trade Name Freq PRN Reason Stop Dose Admin Allopurinol 300 mg 02/03/20 09:00 02/03/20 08:37 Allopurinol 300 Mg Tablet PO 300 mg DAILY SUKI Administration Amlodipine Besylate 10 mg 02/04/20 09:00 Amlodipine Besylate 5 Mg Tablet PO DAILY SUKI Buspirone HCl 10 mg 02/02/20 17:25 02/03/20 16:51 Buspirone Hcl 10 Mg Tablet PO 10 mg BID SUKI Administration Dextrose 12.5 gm 02/02/20 13:18 Dextrose 50% 25 Gm/50 Ml Syringe IV PUSH PRN PRN Hypoglycemia Protocol Famotidine 20 mg 02/02/20 21:00 02/03/20 21:00 Famotidine 20 Mg/2 Ml Vial IV PUSH 20 mg Q12HR SUKI Administration Ferrous Sulfate 324 mg 02/03/20 09:00 02/03/20 08:37 Ferrous Sulfate 324 Mg Tablet PO 324 mg DAILY SUKI Administration Gentamicin Sulfate 1 applic 02/02/20 17:30 02/03/20 16:52 Gentamicin Sulfate 0.1% Cr 15 Gm Tube TOPICAL 1 applic TID SUKI Administration Glucagon 1 mg 02/02/20 13:18 Glucagon For Inj 1 Mg Vial IM PRN PRN Hypoglycemia Protocol Glucose 15 gm 02/02/20 13:18 Glucose Oral Gel 15 Gm Of Glucse In 37.5 Gm Tube PO PRN PRN Hypoglycemia Protocol Heparin Sodium (Porcine) 5,000 units 02/03/20 22:00 02/04/20 05:33 Heparin Sodium 5,000 Units/Ml Vial SUB-Q 5,000 units Q8HR SUKI Administration Hydralazine HCl 10 mg 02/03/20 07:57 02/04/20 05:50 Hydralazine Hcl 20 Mg/Ml Vial IV PUSH 10 mg Q8H PRN Administration SBP >180, DBP >100 Dextrose 1,000 mls @ 100 mls/hr 02/02/20 13:18 Dextrose 5% 1,000 Ml IVPB PRN PRN Hypoglycemia Protocol Gentamicin Sulfate 65 mg/ 101.625 mls @ 100 mls/hr 02/04/20 18:00 Dextrose IVPB Q48H [facility] Insulin Aspart 2 - 5 units 02/02/20 17:00 02/04/20 08:02 Insulin Aspart (*Bkc) 100 Units/Ml SUB-Q Not Given TIDWM [facility] Protocol Levothyroxine Sodium 75 mcg 02/03/20 06:30 02/04/20 05:33 Levothyroxine Sodium 75 Mcg Tablet PO 75 mcg DAILY@0630 SUKI Administration Loperamide HCl 2 mg 02/02/20 17:05 Loperamide Hcl 2 Mg Capsule PO Q6H PRN Diarrhea Metoprolol Tartrate 50 mg 02/02/20 21:00
[2020-02-04 08:28] LABS: Glucose Point of Care 145 (65-105)
[2020-02-04] MEDS: VITAMIN B COMPLEX CAPSULE 1 CAP PO (09:01)
[2020-02-04 09:02] VITALS: PULSE 73
[2020-02-04] MEDS: SIMVASTATIN 10 MG TABLET PO (09:02)
[2020-02-04] MEDS: amLODIPine BESYLATE 5 MG TABLET 10 MG PO (09:02)
[2020-02-04] MEDS: METOPROLOL TARTRATE 50 MG TAB PO (09:02)
[2020-02-04] MEDS: THERAPEUTIC MULTIVITAMINS/MINERALS TAB (*BKC) 1 TABLET PO (09:02)
[2020-02-04] MEDS: FERROUS SULFATE 324 MG TABLET PO (09:03)
[2020-02-04] MEDS: FAMOTIDINE 20 MG/2 ML VIAL IV PUSH (09:03)
[2020-02-04] MEDS: allopurinoL 300 MG TABLET PO (09:03)
[2020-02-04] MEDS: busPIRone HCL 10 MG TABLET PO (09:03)
--- NOTE | 2020-02-04 10:57 | PM.PNNEP ---
Progress Note: A&P Assessment and Plan (1) Chronic kidney disease, stage 5: Code(s): N18.5 - Chronic kidney disease, stage 5 Status: Chronic Assessment and Plan: the patient has chronic kidney disease stage 5. This is most likely due to hypertension and sleep apnea. Volume status looks okay. She does have pleural effusions and a pericardial effusion which may be from her uremia. She will be initiating dialysis on Thursday as an outpatient. Hopefully these will all get better with that. (2) Peritonitis: Code(s): K65.9 - Peritonitis, unspecified Status: Acute Assessment and Plan: the patient has cloudy fluid. She did not have enough cells in her fluid to make a cloudy. Her fluid cultures were negative. She had not had any antibiotics before that. Does not have fibrin in her fluid. 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 This is associated with lymphoma, pancreatitis, and amlodipine. The patient had CT scan of her pelvis abdomen and thorax and she has no lymph nodes on exam so I do not think she has lymphoma. She clearly does not have pancreatitis. She is on amlodipine so will stop this. We can start an ADALID-inhibitor once she is on dialysis. Okay for discharge any time from the kidney standpoint. (3) Erythropoietin deficiency anemia: Code(s): D63.1 - Anemia in chronic kidney disease Status: Acute Assessment and Plan: Hemoglobin is a little bit low. Will give a dose of EPO. (4) BEKA (obstructive sleep apnea): Code(s): G47.33 - Obstructive sleep apnea (adult) (pediatric) Status: Acute Assessment and Plan: the patient uses a CPAP machine (5) Hypertension: Code(s): I10 - Essential (primary) hypertension Status: Acute Assessment and Plan: her blood pressure is doing better than it was before. Will start ADALID-inhibitor as an outpatient. (6) History of Crohn's disease: Code(s): Z87.19 - Personal history of other diseases of the digestive system Status: Acute Assessment and Plan: Continue working with Dr. balderrama. (7) UTI (urinary tract infection): Code(s): N39.0 - Urinary tract infection, site not specified Status: Acute Assessment and Plan: The patient has frequency and suprapubic pain. Her urine culture is positive for Klebsiella. Will start Cipro and stop the other antibiotics. Subjective Date/time seen: 02/04/20 10:57 Interval history: The patient is having a little bit of suprapubic pain and frequent urination. No chest pain or shortness of breath Review of Systems Cardiovascular: Cardiovascular: Reports no additional cardiovascular complaints Respiratory: Respiratory: Reports no additional respiratory complaints Gastrointestinal: Gastrointestinal: Reports no additional gastrointestinal complaints Genitourinary: Genitourinary: Reports no additional female genitourinary complaints Exam Narrative: Exam Narrative: WDWN in NAD skin no rash head ncat lungs clear cor reg no rub abd BS+ nontender and soft ext no edema. Objective Data Vital Signs Vital Signs: Vital Signs - 24 hr 02/03/20 14:00 02/03/20 17:35 02/03/20 20:58 Temperature 36.4 C Pulse Rate 70 80 Respiratory Rate 16 Blood Pressure 194/72 H Pulse Oximetry 100 99 02/03/20 21:39 02/04/20 05:41 02/04/20 08:00 Temperature 36.2 C L 36.2 C L Pulse Rate 75 75 73 Respiratory Rate 17 16 16 Blood Pressure 175/73 H 183/73 H Pulse Oximetry 100 98 98 02/04/20 09:02 Temperature Pulse Rate 73 Respiratory Rate Blood Pressure Pulse Oximetry Intake/Output Intake/Output: Intake & Output 02/01/20 02/02/20 02/03/20 02/04/20 23:59 23:59 23:59 23:59 Intake Total 603.799 7534 660 Output Total 450 700 Balance 21.875 2510 660 Meds/Results Medications: Active Medications Generic Name Dose Route Start Last Admin Trade Name Freq PRN Reason Stop Dose Admin Allopurinol
[2020-02-04] MEDS: GENTAMICIN SULFATE 0.1% CR 15 GM TUBE 1 APPLIC TOPICAL (11:23)
[2020-02-04 11:50] LABS: Glucose Point of Care 183 (65-105)
--- NOTE | 2020-02-04 13:25 | PM.DS ---
DS: Admitting Diagnosis Admitting Diagnosis Admitting Diagnosis: peritonitis DS: Discharge Diagnosis Discharge Diagnosis (1) Peritonitis: Code(s): K65.9 - Peritonitis, unspecified Status: Acute Assessment and Plan: Discharge Summary (Date of service 02/04/20): Mrs. Maher is a 74 y.o. female with PMH significant for CKD stage 5 and approaching dialysis, Chron's disease, gout, anemia, hypertension, hypothyroidism, hyperlipidemia, BEKA, and depression who presented to the emergency department 02/02/20 due to concern for peritonitis. She had a peritoneal catheter placed 01/21/[address] Bartlett at [facility] in anticipation of starting peritoneal dialysis and she is followed by Dr. Joe. She notes that she had severe diarrhea with contamination at her PD catheter site 01/31. She went to the office for a flush and the fluid was cloudy in appearance. She was informed to proceed to the ED due to concern for peritonitis. Initial workup included WBC 12,[address] abd/pelvis with moderate pericardial effusion, stable right lower lobe nodules, and no acute intra-abdominal findings. She was treated with empiric gentamicin and admitted to the hospitalist service with nephrology consultation. Blood cultures, stool cultures, and peritoneal cultures were obtained. Peritoneal, stool, and blood cultures were negative for growth. Echocardiogram was ordered for her pericardial effusion and showed small effusion with no evidence of tamponade. The pericardial effusion was felt uremic in nature and cardiology recommended no further evaluation at this time. She was felt stable for discharge from a nephrology standpoint. Nephrology recommended ciprofloxacin for 7 days. She did have urinary frequency and suprapubic tenderness. Urine culture demonstrated klebsiella pneumoniae sensitive to ciprofloxacin. She felt much better. She was discharged in hemodynamically stable condition on the afternoon of 02/04/20. (2) Crohn's disease: Code(s): K50.90 - Crohn's disease, unspecified, without complications Status: Chronic Assessment and Plan: She has chronic diarrhea and takes immodium. Stool cultures were ordered as well as inflammatory bowel disease panel which were negative. She also had a recent colonoscopy which demonstrated mild nonspecific inflammation and internal hemorrhoids. SBFT was also normal per GI reports. GI was consulted and did see her. She will need to follow-up with GI outpatient. (3) Hypothyroidism: Code(s): E03.9 - Hypothyroidism, unspecified Status: Chronic Assessment and Plan: TSH is normal at 3.76. Levothyroxine was continued. (4) Pericardial effusion: Code(s): I31.3 - Pericardial effusion (noninflammatory) Status: Acute Assessment and Plan: CT chest showed moderate sized pericardial effusion. This is likely secondary to CKD stage 5. Small pericardial effusion was visualized on CT chest 03/31/19. Echocardiogram was performed and demonstrates small circumferential pericardial effusion and invagination of the right atrial free wall without evidence of RV diastolic collapse. She was seen by cardiology who felt this was uremic and recommended no further workup at this time. She will begin dialysis in the near future and this should improve. (5) Erythropoietin deficiency anemia: Code(s): D63.1 - Anemia in chronic kidney disease Status: Acute Assessment and Plan: She is receiving EPO per nephrology. H&H were stable. (6) Hypertension: Code(s): I10 - Essential (primary) hypertension Status: Acute Assessment and Plan: Blood pressures were fluctuant but intermittently elevated. Metoprolol was continued. She will be followed by nephrology outpatient for monitoring and medication adjustments. (7) Chronic kidney disease, stage 5: Code(s): N18.5 - Chronic kidney disease, stage 5 Status: Chronic Asse
[2020-02-04] MEDS: EPOETIN ALFA-EPBX 10,000 UNITS/ML VIAL 10000 UNITS SUB-Q (13:33)
[2020-02-04] MEDS: CIPROFLOXACIN 250 MG TABLET PO (14:54)
--- NOTE | 2020-02-04 15:00 | PC.NURSE ---
Home with home health. Verbalized understanding.
[2020-02-08 10:15] LABS: ANCA Screen Negative (Negative); Myeloperoxidase Ab <1.0 AI (<1.0); Proteinase-3 Ab <1.0 AI (<1.0); S cerevisiae Ab (IgA) 10.1 U (<=20.0); S cerevisiae Ab (IgG) 5.6 U (<=20.0)
== END 2020-02-04 15:10 | disposition home health service (06) | DRG 372 ==
LOC: ANHED 13:27 → ANH3MED 13:45
PROVIDERS: Emergency Medicine Emergency Medical Services; Internal Medicine Gastroenterology; Internal Medicine Nephrology; Nurse Practitioner; Admitting Provider Internal Medicine; Emergency Provider Emergency Medicine; PCP Family Medicine Adolescent Medicine; Visit Provider Physician Assistant
DX: K65.9 Peritonitis, unspecified; I12.0 Hypertensive chronic kidney disease with stage 5 chronic kidney disease or end stage renal disease; N18.5 Chronic kidney disease, stage 5; I31.3 Pericardial effusion (noninflammatory); K50.90 Crohn's disease, unspecified, without complications; N39.0 Urinary tract infection, site not specified; B96.1 Klebsiella pneumoniae [K. pneumoniae] as the cause of diseases classified elsewhere; E87.6 Hypokalemia; R91.8 Other nonspecific abnormal finding of lung field; G47.33 Obstructive sleep apnea (adult) (pediatric); E11.51 Type 2 diabetes mellitus with diabetic peripheral angiopathy without gangrene; E11.22 Type 2 diabetes mellitus with diabetic chronic kidney disease; I25.10 Atherosclerotic heart disease of native coronary artery without angina pectoris; F41.8 Other specified anxiety disorders; E78.5 Hyperlipidemia, unspecified; D63.1 Anemia in chronic kidney disease; E03.9 Hypothyroidism, unspecified; M10.9 Gout, unspecified; Z79.899 Other long term (current) drug therapy; Z88.0 Allergy status to penicillin; Z88.8 Allergy status to other drugs, medicaments and biological substances; Z87.442 Personal history of urinary calculi; Z95.5 Presence of coronary angioplasty implant and graft
CPT/HCPCS: 36415; 71045; 71250; 74176; 80048; 80053; 80202; 81001; 82274; 82728; 83036; 83605; 83690; 83735; 84100; 84443; 84478; 85025; 85027; 85610; 85730; 86021; 86140; 86671; 87040; 87045; 87046; 87070; 87075; 87077; 87086; 87088; 87177; 87186; 87205; 87209; 87269; 87272; 87427; 89051; 89055; 93005; 93306; 99283; 99285; A9270; J0360; J1580; J1644; J1815; J3370; J7120; Q5106

== ENCOUNTER 2020-02-07 17:34 | Outpatient (CLI) | payer MEDICARE, SELFPAY ==
--- NOTE | ~2020-02-07 | XR_ITS ---
EXAMINATION: XR abdomen/kub 1V DATE: 02/07/2020 17:59 INDICATION: Poorly functioning peritoneal dialysis catheter TECHNIQUE: A supine view of the abdomen on 2 radiographs was obtained. COMPARISON: CT dated 02/02/2020 FINDINGS: Again seen is a left lower quadrant peritoneal dialysis catheter with distal tip pulled in the deep c entral pelvis. Multiple phleboliths in the pelvis. Small amount of gas scattered throughout a few non dilated loops of small bowel and colon. Cholecystectomy clips in the right upper quadrant. Left renal artery stent. Moderate to severe lumbar spondylosis. IMPRESSION: 1. Dialysis catheter in unchanged position, coiled in the deep pelvis. Reviewed, dictated and finalized at location [facility]
== END 2020-02-07 17:35 | disposition home or self-care (01) ==
PROVIDERS: PCP Family Medicine Adolescent Medicine; Visit Provider Internal Medicine Nephrology
DX: T85.691A Other mechanical complication of intraperitoneal dialysis catheter, initial encounter (principal); M47.816 Spondylosis without myelopathy or radiculopathy, lumbar region; K91.86 Retained cholelithiasis following cholecystectomy
CPT/HCPCS: 74018

== ENCOUNTER 2020-02-28 10:34 | Inpatient (IN) | payer MEDICARE, SELFPAY ==
[2020-02-28] VITALS (13 sets, daily range): BP systolic 125–156; BP diastolic 54–110; PULSE 85–137; RESP 16–23; TEMP 36.8–37.3; O2SAT 91–99; BMI 32.2
--- NOTE | ~2020-02-28 | XR_ITS ---
XR chest port-a-cath/central 03/02/2020 11:27 Indication: Insertion of dialysis tunneled catheter Procedure: AP portable chest Comparison: Comparison to multiple prior studies sequentially, with oldest reviewed study dated 11/24. Findings: Large bore dual-lumen central venous catheter tip in the SVC. There has been development of diffuse bilateral airspace disease. No pleural effusion or pneumothorax. No acute osseous abnormalit y. There are cholecystectomy clips. Impression: 1: Developing diffuse bilateral airspace disease which may represent edema or pneumonia. 2: Cardiomegaly. Reviewed, dictated and finalized at location A. IGHT PIN MAKING MACHINE OPERATOR Impression: 1: Developing diffuse bilateral airspace disease which may represent edema or p neumonia. 2: Cardiomegaly.
--- NOTE | ~2020-02-28 | XR_ITS ---
XR chest 2V 02/28/2020 11:29 Indication: Weakness. Fluid retention. Procedure: 2 view chest Comparison: Comparison to multiple prior studies sequentially, with oldest reviewed study dated 10/2010. Findings: Patchy bilateral airspace disease, compatible with pneumonia. No pleural effusion or pneumo thorax. No acute osseous abnormality. No pneumothorax. Impression: 1: Patchy bilateral airspace disease, compatible with pneumonia. Reviewed, dictated and finalized at location A. TRICAL INTERN Impression: 1: Patchy bilateral airspace disease, compatible with pneumonia.
--- NOTE | ~2020-02-28 | XR_ITS ---
EXAMINATION: XR chest 1V portable EXAM DATE: 03/09/2020 09:47 INDICATION: COVID 19. TECHNIQUE: Portable AP frontal chest x-ray was obtained. Comparison is made to prior examination from 03/07/2020, 03/06/2020. FINDINGS: There is mild interval improvement in the diffuse bilateral airspace disease. Right-sided I J approach dialysis catheter. Mild cardiomegaly and pulmonary vascular congestion. There is no pneumo thorax suspected. There are no pleural effusions. The bones are osteopenic. There are bony degenerat enriqueta changes. IMPRESSION: Moderate bilateral airspace disease with mild improvement. COVID pneumonia. Reviewed, dictated and finalized at location A. O PRODUCTION ASSISTANT IMPRESSION: Moderate bilateral airspace disease with mild improvement. COVID p michelle.
--- NOTE | ~2020-02-28 | XR_ITS ---
EXAMINATION: XR fl guide central line place DATE: 03/02/2020 10:59 INDICATION: Central line placement. TECHNIQUE: 2 intraoperative fluoroscopic views of the chest were obtained. I was not present. Fluoros copy exposure time was 44 seconds. COMPARISON: Chest single view 03/02/2020 FINDINGS: A right internal jugular central venous catheter is seen with tip in the superior vena cava . IMPRESSION: 1. Central line tip in the superior vena cava. Reviewed, dictated and finalized at location A. ALER
--- NOTE | ~2020-02-28 | XR_ITS ---
EXAMINATION: XR chest port-a-cath/central EXAM DATE: 03/07/2020 11:15 INDICATION: Revision, possible replacement of tunneled catheter. TECHNIQUE: Portable AP frontal chest x-ray was obtained. Comparison is made to prior examination from 03/06/2020. FINDINGS: Right IJ approach double lumen dialysis catheter, tip overlying cavoatrial region. There is cardiomegaly. Moderate to large amount of left-sided, moderate right-sided acute airspace disease, e ither edema or infection. Clinical correlation. No pneumothorax. There are mild bony degenerative brent nges. IMPRESSION: 1. Rather extensive left-sided greater than right edema or infection. Clinical correlation. Reviewed, dictated and finalized at location B. US SUPERVISOR IMPRESSION: 1. Rather extensive left-sided greater than right edema or infection. Clinica l correlation.
--- NOTE | ~2020-02-28 | XR_ITS ---
EXAMINATION: XR cervical spine 1V DATE: 03/06/2020 11:38 INDICATION: Central line placement. TECHNIQUE: A lateral view of cervical spine on 2 radiographs was obtained. COMPARISON: Chest single view 03/06/2020 FINDINGS: There is a right internal jugular central venous catheter. There is a kink in the catheter at its most superior position at C3. Bone alignment is normal. There is mild cervical spondylosis. IMPRESSION: 1. Right internal jugular central venous catheter with kink in the catheter at its most superior posi tion at C3. Reviewed, dictated and finalized at location A. ABLE MACHINE SANDER IMPRESSION: 1. Right internal jugular central venous catheter with kink in the catheter at its most superior position at C3.
--- NOTE | ~2020-02-28 | XR_ITS ---
EXAMINATION: XR chest 1V portable INDICATION: Assess position of tunneled dialysis catheter TECHNIQUE: Portable AP chest at 1136 hours COMPARISON: 03/02/2020 FINDINGS: A right internal jugular tunneled dialysis catheter ends with its tip in the right atrium. Diffuse interstitial and airspace opacities persist with slight worsening in the right upper lung zon e. There is no pleural effusion or pneumothorax. Stable cardiomegaly is noted. Surgical clips in the right upper quadrant are likely from prior cholecystectomy. IMPRESSION: 1. Right internal jugular tunneled dialysis catheter ending with its tip in the proximal right atrium . 2. Stable cardiomegaly. 3. Diffuse lung disease with slight worsening in the right upper lung zone, consistent with pneumonia and/or pulmonary edema. Reviewed, dictated and finalized at location A. UNICATIONS PLANNER IMPRESSION: 1. Right internal jugular tunneled dialysis catheter ending with its tip in the proximal right atrium. 2. Stable cardiomegaly. 3. Diffuse lung disease with slight worsening in the right upper lung zone, con sistent with pneumonia and/or pulmonary edema.
--- NOTE | ~2020-02-28 | XR_ITS ---
EXAMINATION: XR fl guide central line place INDICATION: Possible tunnel dialysis catheter revision TECHNIQUE: Two intraoperative fluoroscopic images are submitted for review. Total fluoroscopic time i s 78.1 seconds. COMPARISON: None available FINDINGS: Final fluoroscopic image demonstrates a right internal jugular dialysis catheter coursing b eyond the inferior margin of the image. Please refer to procedure note for full details. IMPRESSION: 1. Right internal jugular tunneled dialysis catheter insertion. Please refer to procedure note for fu ll details. Reviewed, dictated and finalized at location A. SHOP MANAGER IMPRESSION: 1. Right internal jugular tunneled dialysis catheter insertion. Please refer to procedure note for full details.
--- NOTE | 2020-02-28 10:43 | ECG_ITS ---
Measurements Intervals [place] Rate: 106 P: 35 [place]: 188 QRS: -26 QRSD: 90 T: 93 QT: 376 QTc: 499 Interpretive Statements SINUS TACHYCARDIA FREQUENT ATRIAL PREMATURE COMPLEXES ST-T WAVE ABNORMALITY IN HIGH LATERAL LEADS- CONSIDER ISCHEMIA BASELINE ARTIFACT- I, II, III, AVR, AVL, AVF, V1 ABNORMAL ECG Electronically Signed On 02-28-2020 11:34:04 [employer] by Brennen Keenan D.O.
[2020-02-28 11:00] LABS: Basophils Percent Auto 0.1 % (0.2-1.2); Hematocrit 31.1 % (37.0-47.0); Immature Granulocyte Absolute 0.07 K/mm3 (0.00-0.031); Immature Granulocyte Percent A 0.8 % (0-0.5); Mean Corpuscular HGB Conc 32.2 g/dl (32-36); Mean Corpuscular Hemoglobin 28.7 pg (26-34); Mean Corpuscular Volume 89.1 fl (80-100); Mean Platelet Volume 9.1 fl (7.4-10.4); Monocytes Absolute Auto 0.7 K/mm3 (0.1-0.6); Monocytes Percent Auto 7.6 % (2.6-8.5); Neutrophils Absolute Auto 7.3 K/mm3 (1.3-6.7); Neutrophils Percent Auto 84.5 % (45.5-73.1); Platelet Count Result 207 k/mm3 (150-375); Red Blood Count 3.49 M/mm3 (4.2-5.4); Red Cell Distribution Width 16.2 % (11.5-14.5); White Blood Count 8.6 K/mm3 (4.5-10.0)
[2020-02-28 11:09] LABS: INR 1.1; Prothrombin Time 14.4 Seconds (11.1-14.7)
[2020-02-28 11:11] LABS: Alanine Aminotransferase 26 U/L (4-35); Albumin Level 2.5 g/dL (3.5-5.1); Alkaline Phosphatase 65 U/L (38-126); Anion Gap 11 mmol/L (8-16); Aspartate Amino Transferase 37 U/L (14-36); Bilirubin,Total 0.4 mg/dL (0.2-1.3); Blood Urea Nitrogen 42 mg/dL (7-17); Calcium 7.3 mg/dL (8.4-10.2); Carbon Dioxide 14 mmol/L (22-30); Chloride 114 mmol/L (98-107); Estimated CRCL calculation 8 ml/min; Estimated Glomerular Filt Rate 7; Glucose 150 mg/dL (65-105); Potassium 3.1 mmol/L (3.4-5.0); Sodium 139 mmol/L (137-145)
[2020-02-28 11:12] LABS: Lactic Acid Reflex 1.2 mmol/L (0.7-2.1)
[2020-02-28 11:18] LABS: Partial Thromboplastin Time 29.5 SECONDS (22.3-36.8)
[2020-02-28 11:33] LABS: Add Urine Microscopic? YES; Appearance Urine Clear (Clear); Bacteria Urine Trace /hpf; Bilirubin Urine Negative (Negative); Blood Urine 1+ (Negative); Color Urine Yellow (Yellow); Glucose Urine UA 2+ mg/dL (Negative); Ketones Urine Negative (Negative); Leukocyte Esterase Ur Negative LEU/UL (Negative); Mucus Urine Rare /lpf; Nitrate Urine Negative (Negative); Protein Urine 3+ mg/dL (Negative); RBC Urine 0-2 /hpf (0-2); Specific Grav Ur 1.014 (1.001-1.035); Squamous Epithelial Cell Urine Rare /hpf (Few); Urobilinogen Urine Negative mg/dL (<2.0); WBC Urine 0-3 /hpf
--- NOTE | 2020-02-28 11:52 | ED.GENADULT ---
HPI - General Adult General Chief complaint: Weakness Stated complaint: WEAKNESS Source: patient and EMS Mode of arrival: EMS Limitations: no limitations History of Present Illness HPI narrative: 74 years old white female lives alone, came to the emergency room with a chief complaint of generalized gradual progressive weakness, decreased oxygen level, arthritis with progression, scheduled for dialysis tomorrow by Dr. Joe and would like to get the dialysis in the hospital. Patient denies any fever, chills, nausea, vomiting, chest pain or shortness of breath. Basically patient unable to take care of herself. Related Data Home Medications Medication Instructions Recorded Confirmed Centrum Silver Women 1 tablet PO DAILY 08/23/19 02/02/20 acetaminophen [Tylenol Arthritis 650 mg PO Q12H 08/23/19 02/02/20 Pain] allopurinol 300 mg PO DAILY 08/23/19 02/02/20 buspirone 10 mg PO BID 08/23/19 02/02/20 ferrous sulfate 65 mg PO DAILY 08/23/19 02/02/20 levothyroxine 75 mcg PO DAILY 08/23/19 02/02/20 sertraline 100 mg PO DAILY 08/23/19 02/02/20 simvastatin 10 mg PO DAILY 08/26/19 02/02/20 amlodipine 5 mg PO DAILY 02/28/20 aspirin [Adult Aspirin] 81 mg PO DAILY 02/28/20 ergocalciferol (vitamin D2) 1,250 mcg PO WEEKLY 02/28/20 [Vitamin D2] oxybutynin chloride 15 mg PO DAILY 02/28/20 oxycodone-acetaminophen 1 tablet PO Q4H PRN 02/28/20 Allergies Allergy/AdvReac Type Severity Reaction Status Date / Time cortisone Allergy Intermediate Dyspnea / Verified 02/02/20 14:32 SOB Penicillins Allergy Intermediate Dyspnea / Verified 02/02/20 14:32 SOB Review of Systems Review of Systems: Narrative: CONSTITUTIONAL: Denies fever, chills, or sweats. EYES: Denies visual changes, redness, or discharge. ENT: Denies rhinorrhea, congestion, sore throat, or otalgia. CARDIOVASCULAR: Denies chest pain, palpitations, or edema. RESPIRATORY: Denies cough or dyspnea. GASTROINTESTINAL: Denies abdominal pain, nausea, vomiting, or diarrhea., Peritoneal dialysis catheter in place GENITOURINARY: Denies dysuria or hematuria. SKIN: 2+ edema lower extremity bilaterally up to the knees. MUSCULOSKELETAL: Generalized muscle and joint pain NEUROLOGIC: Denies headache, numbness, or weakness. PSYCHIATRIC: Denies anxiety or depression. PMFSH Past Medical History Medical History Anemia of chronic disease CAD (coronary artery disease) 3 cardiac stents Chronic kidney disease, stage 5 Crohn's disease Depression Depression with anxiety Diarrhea DM2 (diabetes mellitus, type 2) the patient continues to monitor blood sugars even though she is no longer on any medications that she lost 40 lb. Erythropoietin deficiency anemia History of end stage renal disease History of kidney stones Hyperlipidemia Hypertension Hypothyroidism BEKA (obstructive sleep apnea) She no longer uses a CPAP machine since she lost 40 lb. Peripheral vascular disease Peritonitis UTI (urinary tract infection) Surgical History Surgical History H/O oophorectomy H/O: hysterectomy History of colonoscopy History of renal stent Hx of cystoscopy Stented coronary artery Social History Social History Smoking status: Never smoker Alcohol intake: never Substance use: never Substance use type: does not use Gender identity (if verbalized by the patient): Female Spiritual care concerns: No Exam Narrative: Exam Narrative: General appearance: Well-developed, well-nourished Skin: Normal color, 2+ edema bilaterally of the lower extremities Head: Normocephalic, nontraumatic Eyes: Clear conjunctiva ENT: Oropharynx normal, ears normal, nose normal Neck: Supple, nontender Chest and respiratory: Airway patent, no respiratory distress, no accessory muscle use Heart: Regular rate/rhythm Abdomen: Soft, nontender, no organomeg
[2020-02-28] MEDS: POTASSIUM CHLORIDE 20 MEQ TABLET 40 MEQ PO ×2 (12:04→22:35)
[2020-02-28 12:38] LABS: CRP 12.6 mg/dL (<1.0)
--- NOTE | 2020-02-28 13:15 | PC.NURSE ---
report called from An[facility] in ED
--- NOTE | 2020-02-28 13:40 | ADMGEN ---
This patient, Layla Maher, was admitted to [facility] Room 331-01. Patient/family oriented to hospital policies and general routines including ID bracelet, bed and alarms, visiting hours, pain management, procedures, bathroom and other care routines, personal items, smoking policy, room service/diet, and visiting hours. Reviewed plan of care. Information on how to activate the Rapid Response Team has been discussed. Patient/Family are encouraged to report perceived risks to care and to ask questions if they do not understand what they are told or what they should do.
--- NOTE | 2020-02-28 14:45 | PM.IMHP ---
H&P: HPI History of Present Illness Date/Time: 02/28/20 14:45 Chief complaint: Generalized weakness. Cheif Complaint: Weakness. Narrative: Layla Maher is a 74-year-old female with diet-controlled diabetes, chronic kidney disease stage 5 for which she is to start peritoneal dialysis in the coming days, anemia of chronic disease, coronary artery disease, hypertension, hypothyroidism, and several other comorbidities who presented to the emergency department earlier today via EMS from home with complaints of generalized weakness. She has had progressive weakness over months, and is to the point where she has had several falls due to ?my legs are just not supporting me.? Her last fall was over a week ago when she denies any injury at that time. Within the last week she had a peritoneal dialysis catheter inserted with the intention of starting dialysis in the coming days per Dr. Joe. She goes on to tell me that she really came to the hospital because she want to start the dialysis here because she is not certain she will be able to do it at home due to weakness. In fact she thinks perhaps she needs rehab before returning home due to her progressive weakness and falls. She also mentions mild hypoxia (reportedly SpO2 around 90%) however she denies cough and shortness of breath. Chest x-ray in the emergency department showed patchy bilateral airspace disease consistent with pneumonia, and with further questioning she mentions that her son has been hacking all over the place? and he has a COVID test pending. At the time my evaluation she has no complaints aside from her chronic pain. She denies fever, chills, sweats, anosmia, dysgeusia, cough, shortness of breath, nausea, vomiting, diarrhea, and dysuria. Review of Systems Review of Systems: Narrative: Twelve systems were reviewed with pertinent positives and negatives as per HPI. She denies sinus congestion, rhinorrhea, otalgia, and odynophagia. No headache. She denies vertigo. No focal weakness or paresthesias. She denies chest pain, pleuritic pain, orthopnea, and PND. Sleep apnea as documented in her EMR however she states that she has never used a CPAP, and she is not really certain that she was ever diagnosed with sleep apnea but goes on to say that since she lost 40 lb as she no longer has it. In any event, she has chronic, intermittent lower extremity edema which is unchanged. She still urinates and denies dysuria and hematuria. Frequent loose stools due to history of Crohn's. Except as documented, all other systems were reviewed and are negative. [facility] Past Medical History Medical History (Updated 02/28/20 @ 20:51 by Yvette Macias PA-C) Anemia of chronic disease Chronic kidney disease, stage 5 In the process of preparing for peritoneal dialysis. Coronary artery disease History of stent x3. Crohn's disease Depression with anxiety Diet-controlled type 2 diabetes mellitus Hemoglobin A1c was 4.8% in 01/2020. Gastroesophageal reflux disease History of kidney stones Hyperlipidemia Hypertension Hypothyroidism Obstructive sleep apnea No longer using CPAP after 40 lb weight loss. Pericardial effusion (~01/2020) Small pericardial effusion on echocardiogram, felt to be related to uremia. Peripheral vascular disease Peritonitis (~01/2020) Renal cell carcinoma (~2004) Restless leg syndrome Shingles (~1991) Surgical History Surgical History (Updated 02/28/20 @ 14:50 by Yvette Macias PA-C) History of appendectomy History of bilateral carpal tunnel release History of cardiac catheterization With stent x3. History of cholecystectomy History of colonoscopy History of cystoscopy With ureteral stents for kidney stones. History of foot surgery Repair of left foot fracture with pinning. History of hysterectomy (~1976) With cystocele and rectocele repairs. History of partial nephrectomy (~2004) Left partial nephrectomy for kidney cancer. History of tonsillectomy F
--- NOTE | 2020-02-28 15:24 | PCPTNOTE ---
Attempted PT evaluation this PM. Pt fatigued and waiting for pain medication to kick in, requesting return for eval tomorrow. Michaela Bee, LEXIET
[2020-02-28 17:59] LABS: Potassium 2.8 mmol/L (3.4-5.0)
[2020-02-28 18:00] LABS: Magnesium 1.6 mg/dL (1.6-2.3)
[2020-02-28] MEDS: oxyCODONE/ACETAMINOPHEN (*CRX) 5-325 MG TABLET 1 TABLET PO (20:13)
[2020-02-28] MEDS: oxyCODONE HCL (*CRX) 2.5 MG TAB IR PO (20:15)
[2020-02-28 20:24] LABS: Magnesium 1.5 mg/dL (1.6-2.3); Phosphorus 5.9 mg/dL (2.5-4.5); Potassium 2.6 mmol/L (3.4-5.0)
[2020-02-28 20:58] LABS: Glucose Point of Care 114 (65-105)
[2020-02-28] MEDS: MAGNESIUM SULF 1 GM/D5W 100 ML 1 GM/100 ML BAG IVPB (22:35)
[2020-02-28] MEDS: SIMVASTATIN 10 MG TABLET PO (22:36)
[2020-02-28] MEDS: busPIRone HCL 10 MG TABLET PO (22:36)
[2020-02-28] MEDS: METOPROLOL TARTRATE 50 MG TAB PO (22:36)
[2020-02-29] VITALS (9 sets, daily range): BP systolic 121–149; BP diastolic 49–64; PULSE 60–92; RESP 16–20; TEMP 37.2–38.1; O2SAT 90–92; BMI 33.0
[2020-02-29 01:42] LABS: SARS-CoV-2 RNA PCR Positive
[2020-02-29] MEDS: ACETAMINOPHEN 325 MG TABLET 650 MG PO (04:40)
[2020-02-29] MEDS: LEVOTHYROXINE SODIUM 75 MCG TABLET PO (06:11)
[2020-02-29 06:32] LABS: Basophils Percent Auto 0.1 % (0.2-1.2); Eosinophils Percent Auto 0.1 % (0-4.4); Hematocrit 26.5 % (37.0-47.0); Hemoglobin 8.4 g/dL (12.0-15.0); Immature Granulocyte Absolute 0.12 K/mm3 (0.00-0.031); Immature Granulocyte Percent A 1.7 % (0-0.5); Lymphocytes Absolute Auto 0.43 K/mm3 (0.9-3.2); Lymphocytes Percent Auto 6.2 % (18.3-44.2); Mean Corpuscular HGB Conc 31.7 g/dl (32-36); Mean Corpuscular Volume 88.3 fl (80-100); Mean Platelet Volume 9.5 fl (7.4-10.4); Monocytes Absolute Auto 0.5 K/mm3 (0.1-0.6); Monocytes Percent Auto 7.1 % (2.6-8.5); Neutrophils Absolute Auto 5.9 K/mm3 (1.3-6.7); Neutrophils Percent Auto 84.8 % (45.5-73.1); Nucleated Red Blood Cells Perc 0.3 % (0.0-0.2); Platelet Count Result 192 k/mm3 (150-375); Red Cell Distribution Width 15.9 % (11.5-14.5); White Blood Count 6.9 K/mm3 (4.5-10.0)
--- NOTE | 2020-02-29 06:36 | PC.NURSE ---
PT REQUESTED HER SON BRETT BE CONTACTED. MESSAGE LEFT FOR SON TO CALL BACK.
[2020-02-29 06:47] LABS: Alanine Aminotransferase 22 U/L (4-35); Albumin Level 2.2 g/dL (3.5-5.1); Alkaline Phosphatase 54 U/L (38-126); Anion Gap 9 mmol/L (8-16); Aspartate Amino Transferase 32 U/L (14-36); Bilirubin,Total 0.2 mg/dL (0.2-1.3); Blood Urea Nitrogen 39 mg/dL (7-17); Calcium 7.5 mg/dL (8.4-10.2); Carbon Dioxide 15 mmol/L (22-30); Chloride 116 mmol/L (98-107); Creatine Kinase 278 U/L (30-135); Estimated CRCL calculation 8 ml/min; Estimated Glomerular Filt Rate 7; Glucose 174 mg/dL (65-105); Magnesium 1.8 mg/dL (1.6-2.3); Sodium 140 mmol/L (137-145)
--- NOTE | 2020-02-29 08:03 | PCOTNOTE ---
Attempted for Occupational Therapy evaluation, per RN unable to see at this time due to dialysis. Will attempt at later time.
[2020-02-29 09:29] LABS: Total Triiodothyronine (T3) 0.69 NG/ML (0.97-1.69)
[2020-02-29] MEDS: MULTIVITAMINS /C LUTEIN (CENTRUM SILVER) TABLET *BKC 1 TAB PO (09:46)
[2020-02-29] MEDS: SERTRALINE HCL 50 MG TABLET 100 MG PO (09:46)
[2020-02-29] MEDS: FERROUS SULFATE 324 MG TABLET PO (09:47)
[2020-02-29] MEDS: allopurinoL 300 MG TABLET PO (09:47)
[2020-02-29] MEDS: busPIRone HCL 10 MG TABLET PO ×2 (09:47→20:02)
[2020-02-29] MEDS: amLODIPine BESYLATE 5 MG TABLET PO (09:47)
[2020-02-29] MEDS: ASPIRIN 325 MG TABLET PO (09:47)
[2020-02-29] MEDS: METOPROLOL TARTRATE 50 MG TAB PO ×2 (09:48→20:01)
[2020-02-29 17:08] LABS: Hepatitis B Surface Antigen Negative (Negative)
[2020-02-29 17:26] LABS: Hepatitis B Surface Anti Res Negative
--- NOTE | 2020-02-29 17:46 | PM.EVENT ---
Event Note Event Note Event Note: On dialysis and tolerating it well. She says that she felt fine with the fluid in overnight last night. Will increase the volume to 1500 for each fill. Seen at 5:00 p.m.
--- NOTE | 2020-02-29 17:47 | PM.CNNEP ---
Assessment and Plan Assessment and plan (1) End stage renal disease: Code(s): N18.6 - End stage renal disease Status: Acute Assessment and Plan: The patient has end-stage renal disease. She has not COVID positive. This complicates things quite a bit. She has not done her training for her peritoneal dialysis. She has to wait 20 days after swab to go for training. If the patient is going home soon we should probably place a PermCath for hemodialysis so she can get dialysis at a COVID positive unit until she clears. Then she can start training for her PD. Discussed at length with the patient. (2) COVID-19: Code(s): U07.1 - COVID-19 Status: Acute Assessment and Plan: The patient has COVID-19. She is in isolation. (3) Anemia of chronic disease: Code(s): D63.8 - Anemia in other chronic diseases classified elsewhere Status: Acute Assessment and Plan: Hemoglobin is 8.4. Will start Epogen. (4) Pneumonia: Code(s): J18.9 - Pneumonia, unspecified organism Status: Acute Assessment and Plan: On ceftriaxone and azithromycin. (5) Pericardial effusion: Onset Date: ~01/2020 Code(s): I31.3 - Pericardial effusion (noninflammatory) Status: Acute Assessment and Plan: Will repeat an echocardiogram down the line. (6) Diet-controlled type 2 diabetes mellitus: Code(s): E11.9 - Type 2 diabetes mellitus without complications Status: Acute Assessment and Plan: On her diet (7) Hyperlipidemia: Code(s): E78.5 - Hyperlipidemia, unspecified Status: Chronic (8) BEKA (obstructive sleep apnea): Code(s): G47.33 - Obstructive sleep apnea (adult) (pediatric) Status: Acute Assessment and Plan: She does not use a CPAP machine History of Present Illness Reason for Consult Consult date: 02/29/20 Chief Complaint Chief complaint: pneumonia,ckd,hypokalemia History of Present Illness Narrative: Layla is a very pleasant 74-year-old lady who has multiple medical problems including end-stage renal disease and has been trying to get training going for peritoneal dialysis. She had a catheter placed a few weeks ago. When it was being flushed it did not work so she went to see Dr. Lockwood who opened up the catheter and it was working fine. She finished her healing. And then since last week she has the had a hard time making it in for training because of multiple symptoms. On Thursday the patient called and canceled her training session because she is afraid her son might have COVID. I talked her Thursday evening and she was going to have her son called Dr. Bonds to clarify his symptoms and see whether he might or might not have COVID or whether he needed to be tested. In the meantime yesterday the patient went to the ER because she had generalized weakness. She did not have a cough or shortness of breath. Her weakness has actually been coming on over a matter of months and is probably related to uremia. But because she had trouble getting in for the training and because recently she has had a hard time even walking, she decided to come to the emergency room. In the ER she was swabbed for COVID and is positive. She was admitted. She had peritoneal dialysis last night and will get it again tonight. She has no cough or shortness of breath. She is not on oxygen. She has coronary artery disease and has had stents x3. She has no chest pain currently. She has a history of a pericardial effusion. She has had hypertension for a long period of time in this is probably with affected her kidneys. She had renal cell carcinoma in 2004. Review of Systems Constitutional: Constitutional: Reports no additional constitutional complaints Eyes: Eyes: Reports no additional eye complaints ENT: Reports system reviewed and no additional complaints, except as documented Cardiovascular: Cardiovascular: Reports no addit
--- NOTE | 2020-02-29 18:01 | PM.IMPN ---
Progress Note: A&P Assessment and Plan (1) Generalized weakness: Code(s): R53.1 - Weakness Status: Acute Assessment and Plan: PT/ OT to start soon (2) Pneumonia: Code(s): J18.9 - Pneumonia, unspecified organism Status: Acute Assessment and Plan: Pt is on iv rocephin and iv zithromax (3) Hypokalemia: Code(s): E87.6 - Hypokalemia Status: Acute Assessment and Plan: potassium supplementation (4) Hypertension: Code(s): I10 - Essential (primary) hypertension Status: Acute (5) Chronic kidney disease, stage 5: Code(s): N18.5 - Chronic kidney disease, stage 5 Status: Chronic Assessment and Plan: Pt to start peritoneal dialysis (6) Anemia of chronic disease: Code(s): D63.8 - Anemia in other chronic diseases classified elsewhere Status: Acute (7) Diet-controlled type 2 diabetes mellitus: Code(s): E11.9 - Type 2 diabetes mellitus without complications Status: Acute (8) Hypothyroidism: Code(s): E03.9 - Hypothyroidism, unspecified Status: Chronic (9) Hyperlipidemia: Code(s): E78.5 - Hyperlipidemia, unspecified Status: Chronic (10) Depression with anxiety: Code(s): F41.8 - Other specified anxiety disorders Status: Chronic Assessment and Plan: Pt is on buspar (11) Crohn's disease: Code(s): K50.90 - Crohn's disease, unspecified, without complications Status: Chronic (12) Suspected COVID-19 virus infection: Code(s): Z20.828 - Contact with and (suspected) exposure to other viral communicable diseases Status: Acute Assessment and Plan: Pt is on isolation Subjective Date/time seen: 02/29/20 18:01 Interval history: 74-year-old female with diet-controlled diabetes, chronic kidney disease stage 5 for which she is to start peritoneal dialysis in the coming days, anemia of chronic disease, coronary artery disease, hypertension, hypothyroidism, and several other comorbidities who presented to the emergency department earlier today via EMS from home with complaints of generalized weakness. Pt is covid positive, presently discussing about dialysis with DR Joe. Review of Systems Review of Systems: All systems reviewed & are unremarkable except as noted in HPI and below Exam Narrative: Exam Narrative: General: Well-developed elderly female. Respiratory: Appears in no respiratory distress. . Gastrointestinal: Peritoneal dialysis catheter in the left mid quadrant. Skin: Warm and dry. Faint skin changes of the lower legs bilaterally due to chronic edema. Extremities: No cyanosis or clubbing. Mild chronic edema BL Neurological: Alert. Cranial nerves 2-12 are grossly intact. No gross focal deficits to casual conversation. Psychiatric: Cooperative. Normal mood and slightly odd affect. Objective Data Vital Signs Vital Signs: Vital Signs - 24 hr 02/28/20 20:39 02/28/20 22:36 02/29/20 00:09 Temperature 37.3 C 37.3 C Pulse Rate 91 91 60 Respiratory Rate 20 18 Blood Pressure 144/54 H 121/49 L Pulse Oximetry 92 92 02/29/20 04:40 02/29/20 05:00 02/29/20 08:00 Temperature 38.1 C H 38.1 C H 37.2 C Pulse Rate 70 66 Respiratory Rate 20 16 Blood Pressure 149/61 H 140/55 L Pulse Oximetry 91 90 02/29/20 09:48 02/29/20 12:00 02/29/20 16:00 Temperature 37.4 C 37.6 C H Pulse Rate 66 63 71 Respiratory Rate 18 16 Blood Pressure 123/58 L 145/56 H Pulse Oximetry 92 91 Intake/Output Intake/Output: Intake & Output 02/26/20 02/27/20 02/28/20 02/29/20 23:59 23:59 23:59 23:59 Intake Total 875 1135 Output Total 2458 Balance 875 -1323 Meds/Results Medications: Active Medications Generic Name Dose Route Start Last Admin Trade Name Freq PRN Reason Stop Dose Admin Acetaminophen 650 mg 02/28/20 19:07 02/29/20 04:40 Acetaminophen 325 Mg Tablet PO 650 mg Q6H PRN Administration Mi
[2020-02-29] MEDS: EPOETIN ALFA-EPBX 10,000 UNITS/ML VIAL 10000 UNITS SUB-Q (18:31)
--- NOTE | 2020-02-29 19:23 | PC.NURSE ---
02/29/20 PT CURRENTLY UNDERGOING PERITONEAL DAILYSIS, DAILY WEIGHT DEFERRED.
[2020-02-29] MEDS: SIMVASTATIN 10 MG TABLET PO (20:01)
[2020-02-29] MEDS: oxyCODONE/ACETAMINOPHEN (*CRX) 5-325 MG TABLET 1 TABLET PO (22:26)
[2020-02-29] MEDS: oxyCODONE HCL (*CRX) 2.5 MG TAB IR PO (22:42)
[2020-03-01] VITALS (10 sets, daily range): BP systolic 98–156; BP diastolic 41–70; PULSE 58–80; RESP 18–20; TEMP 36.2–36.8; O2SAT 89–92
[2020-03-01] MEDS: LEVOTHYROXINE SODIUM 75 MCG TABLET PO (05:35)
[2020-03-01] MEDS: oxyCODONE/ACETAMINOPHEN (*CRX) 5-325 MG TABLET 1 TABLET PO ×3 (05:38→18:17)
[2020-03-01] MEDS: oxyCODONE HCL (*CRX) 2.5 MG TAB IR PO ×3 (05:39→18:16)
--- NOTE | 2020-03-01 06:19 | PC.NURSE ---
MESSAGE LEFT WITH PT SON BRETT PER PT REQUEST.
[2020-03-01 06:42] LABS: Albumin Level 2.5 g/dL (3.5-5.1); Anion Gap 9 mmol/L (8-16); Blood Urea Nitrogen 36 mg/dL (7-17); Calcium 8.2 mg/dL (8.4-10.2); Carbon Dioxide 22 mmol/L (22-30); Chloride 112 mmol/L (98-107); Estimated CRCL calculation 7 ml/min; Estimated Glomerular Filt Rate 6; Glucose 253 mg/dL (65-105); Phosphorus 5.3 mg/dL (2.5-4.5); Potassium 2.8 mmol/L (3.4-5.0); Sodium 143 mmol/L (137-145)
--- NOTE | 2020-03-01 07:50 | PM.CNGS ---
Assessment and Plan Assessment and plan (1) End stage renal disease: Code(s): N18.6 - End stage renal disease Status: Chronic Assessment and Plan: see HPI. Plan to proceed with hemodialysis once access placed. (2) Admission for fitting and adjustment of vascular catheter: Code(s): Z45.2 - Encounter for adjustment and management of vascular access device Status: Acute Assessment and Plan: Patient is high risk for surgical procedure of any kind. Will plan to go ahead with placement of a tunneled Dura Flow central venous catheter under fluoroscopy tomorrow morning 03/02/2020 under anesthesia. The procedure the risks the benefits have been discussed with the patient. All questions were answered. She agrees to go ahead. (3) COVID-19: Code(s): U07.1 - COVID-19 Status: Acute Assessment and Plan: COVID precautions will be taken. Currently has few symptoms and difficult to tell what is from COVID and what is from uremia. (4) Pneumonia: Code(s): J18.9 - Pneumonia, unspecified organism Status: Acute Assessment and Plan: On antibiotics. (5) Hypokalemia: Code(s): E87.6 - Hypokalemia Status: Acute Assessment and Plan: Potassium 2.8 today. This will need to be treated. Defer to hospitalist and Dr. Joe. (6) Crohn's disease: Code(s): K50.90 - Crohn's disease, unspecified, without complications Status: Chronic Assessment and Plan: Had colonoscopy August of 2019. Postprocedure diagnosis was chronic diarrhea and irritable bowel syndrome. internal hemorrhoids and mild nonspecific inflammation was noted. (7) Diarrhea: Code(s): R19.7 - Diarrhea, unspecified Status: Chronic (8) BEKA (obstructive sleep apnea): Code(s): G47.33 - Obstructive sleep apnea (adult) (pediatric) Status: Chronic (9) Diet-controlled type 2 diabetes mellitus: Code(s): E11.9 - Type 2 diabetes mellitus without complications Status: Chronic History of Present Illness Consult details Consult date: 03/01/20 Reason for consult: central line ( Tunneled central venous catheter for hemodialysis requested) Requesting physician: Jamshid Joe MD Narrative: patient is a 74-year-old woman who came to the emergency room 2 days ago for generalized weakness. Weakness has been progressive over several months and she is started to have some falls. She feels her legs are just not supporting her. She has had no substantial injury due to falls. The patient was just discharged from [facility] on February 04, 2020. She had a history of having a peritoneal dialysis catheter placed January [address] Bartlett at [facility]. She has a history of Crohn's disease and chronic diarrhea. On 01/31 she had diarrhea and felt her peritoneal dialysis catheter had become contaminated. Peritoneal fluid flush was cloudy and she went to the emergency room. She was admitted here but thorough workup showed cultures to be negative in the peritoneal fluid, stool, and blood. She had a pericardial effusion but this was felt to be due to uremia. She did have evidence of a UTI and was discharged on ciprofloxacin for 7 days. She was admitted to [facility] two days ago and was noticed to have some evidence of bilateral interstitial infiltrates and pneumonia. PCR testing for COVID was positive. The patient has not been able to receive her training for peritoneal dialysis. Now she has to wait 20 days before she can go for peritoneal dialysis training. She has continued to have problems with uremia and we have been requested to place a tunneled central venous catheter for hemodialysis until training and peritoneal dialysis can be instituted. She is on ceftriaxone and a Zithromax for her pneumonia. She has diet-controlled diabetes as well as obstructive sleep apnea. She does not use a CPAP machine. She has anemia of chronic disease a
[2020-03-01] MEDS: ASPIRIN 325 MG TABLET PO (09:23)
[2020-03-01] MEDS: FERROUS SULFATE 324 MG TABLET PO (09:23)
[2020-03-01] MEDS: POTASSIUM CHLORIDE 20 MEQ PACKET (FOR LIQUID) 40 MEQ PO (09:23)
[2020-03-01] MEDS: amLODIPine BESYLATE 5 MG TABLET PO (09:23)
[2020-03-01] MEDS: allopurinoL 300 MG TABLET PO (09:23)
[2020-03-01] MEDS: METOPROLOL TARTRATE 50 MG TAB PO ×2 (09:24→20:53)
[2020-03-01] MEDS: busPIRone HCL 10 MG TABLET PO ×2 (09:24→20:53)
[2020-03-01] MEDS: MULTIVITAMINS /C LUTEIN (CENTRUM SILVER) TABLET *BKC 1 TAB PO (09:24)
[2020-03-01] MEDS: HEPARIN SODIUM 5,000 UNITS/ML VIAL 5000 UNITS SUB-Q (09:25)
[2020-03-01] MEDS: SERTRALINE HCL 50 MG TABLET 100 MG PO (09:26)
--- NOTE | 2020-03-01 10:09 | WPDANESEPPF ---
Anes - Initial Pre Proc Eval Procedure: Operation Date: 03/02/20 10:00 Proposed Procedures p Insertion Tunneled Dialysis Catheter Under Flouroscopy - Marques Waterman MD Date/Time: 03/01/20 10:09 Surgeon: Francis Pichardo MD Pre Op Diagnosis: pneumonia,ckd,hypokalemia Patient Data Age: 74 Gender: F Height: 1.6 m Weight: 80.8 kg Last Vital Signs Temp 36.6 C 03/01/20 08:00 Pulse 66 03/01/20 09:24 Resp 18 03/01/20 08:00 BP 123/64 03/01/20 08:00 Pulse Ox 92 03/01/20 08:00 Allergies Allergy/AdvReac Type Severity Reaction Status Date / Time cortisone Allergy Intermediate Dyspnea / Verified 02/28/20 15:34 SOB Penicillins Allergy Intermediate Dyspnea / Verified 02/28/20 15:34 SOB Home Medications Medication Instructions Recorded Confirmed Type Centrum Silver Women 1 tablet PO DAILY 08/23/19 02/28/20 History acetaminophen [Tylenol Arthritis 650 mg PO Q12H 08/23/19 02/28/20 History Pain] allopurinol 300 mg PO DAILY 08/23/19 02/28/20 History buspirone 10 mg PO BID 08/23/19 02/28/20 History ferrous sulfate 65 mg PO DAILY 08/23/19 02/28/20 History levothyroxine 75 mcg PO DAILY 08/23/19 02/28/20 History sertraline 100 mg PO DAILY 08/23/19 02/28/20 History simvastatin 10 mg PO HS 08/26/19 02/28/20 History amlodipine 5 mg PO DAILY 02/28/20 02/28/20 History aspirin 325 mg PO DAILY 02/28/20 02/28/20 History ergocalciferol (vitamin D2) 50,000 unit PO WEEKLY 02/28/20 02/28/20 History [Vitamin D2] metoprolol tartrate 50 mg PO Q12H 02/28/20 02/28/20 History oxybutynin chloride 15 mg PO DAILY 02/28/20 02/28/20 History oxycodone-acetaminophen 1 tablet PO Q4H PRN 02/28/20 02/28/20 History Laboratory Tests 02/29/20 03/01/20 03/01/20 15:48 05:50 08:09 Sodium 143 mmol/L mmol/L (137-145) Potassium 2.8 mmol/L L* mmol/L (3.4-5.0) Chloride 112 mmol/L H mmol/L (98-107) Carbon Dioxide 22 mmol/L mmol/L (22-30) Anion Gap 9 mmol/L mmol/L (8-16) BUN 36 mg/dL H mg/dL (7-17) Creatinine 6.50 mg/dL H mg/dL (0.7-1.0) Estim Creat Clear Calc 7 ml/min ml/min Estimated GFR 6 L (59 - ) Glucose 253 mg/dL H mg/dL (65-105) Calcium 8.2 mg/dL L mg/dL (8.4-10.2) Phosphorus 5.3 mg/dL H mg/dL (2.5-4.5) Albumin 2.5 g/dL L g/dL (3.5-5.1) Hep Bs Antigen Negative (Negative) Hep Bs Antibody Negative Blood Type B Positive Antibody Screen Negative Patient hx anesthesia problems: none Family hx anesthesia problems: none [facility] Past Medical History Medical History Anemia of chronic disease Chronic kidney disease, stage 5 In the process of preparing for peritoneal dialysis. Coronary artery disease History of stent x3. COVID-19 Crohn's disease Depression with anxiety Diet-controlled type 2 diabetes mellitus Hemoglobin A1c was 4.8% in 01/2020. End stage renal disease Gastroesophageal reflux disease History of kidney stones Hyperlipidemia Hypertension Hypothyroidism Obstructive sleep apnea No longer using CPAP after 40 lb weight loss. Pericardial effusion (~01/2020) Small pericardial effusion on echocardiogram, felt to be related to uremia. Peripheral vascular disease Peritonitis (~01/2020) Renal cell carcinoma (~2004) Restless leg syndrome Shingles (~1991) Surgical History Surgical History History of appendectomy History of bilateral carpal tunnel release History of cardiac catheterization With stent x3. History of cholecystectomy History of colonoscopy History of cystoscopy With ureteral stents for kidney stones. History of foot surgery Repair of left foot fracture with pinning. History of hysterectomy (~1976) With cystocele and rectocele repairs. History of partial nephrectomy (~2004)
--- NOTE | 2020-03-01 10:58 | PC.NURSE ---
Patient is not drinking her 0800 powdered potassium given to her this morning. I have educated the patient on her current potassium level and what it should be, and the risks involved with having an abnormal potassium level. The patient keeps stating that she is aware and she will drink the liquid sometime . We have changed her remaining doses of potassium to pill to see if she can get those down easier. notified.
[2020-03-01] MEDS: POTASSIUM CHLORIDE 20 MEQ TABLET.ER 40 MEQ PO ×2 (11:24→16:23)
--- NOTE | 2020-03-01 14:09 | PM.IMPN ---
Progress Note: A&P Assessment and Plan (1) Generalized weakness: Code(s): R53.1 - Weakness Status: Acute Assessment and Plan: PT/ OT to start soon (2) Pneumonia: Code(s): J18.9 - Pneumonia, unspecified organism Status: Acute Assessment and Plan: Pt is on iv rocephin and iv zithromax (3) Hypokalemia: Code(s): E87.6 - Hypokalemia Status: Acute Assessment and Plan: potassium supplementation (4) Hypertension: Code(s): I10 - Essential (primary) hypertension Status: Acute (5) Chronic kidney disease, stage 5: Code(s): N18.5 - Chronic kidney disease, stage 5 Status: Chronic Assessment and Plan: Pt to start hemodialysis in [place], pt to have tunnel catheter placement janine under surgery. (6) Anemia of chronic disease: Code(s): D63.8 - Anemia in other chronic diseases classified elsewhere Status: Acute (7) Diet-controlled type 2 diabetes mellitus: Code(s): E11.9 - Type 2 diabetes mellitus without complications Status: Chronic (8) Hypothyroidism: Code(s): E03.9 - Hypothyroidism, unspecified Status: Chronic (9) Hyperlipidemia: Code(s): E78.5 - Hyperlipidemia, unspecified Status: Chronic (10) Depression with anxiety: Code(s): F41.8 - Other specified anxiety disorders Status: Chronic Assessment and Plan: Pt is on buspar (11) Crohn's disease: Code(s): K50.90 - Crohn's disease, unspecified, without complications Status: Chronic (12) Suspected COVID-19 virus infection: Code(s): Z20.828 - Contact with and (suspected) exposure to other viral communicable diseases Status: Acute Assessment and Plan: Pt is on isolation Subjective Date/time seen: 03/01/20 14:09 Interval history: 74-year-old female with diet-controlled diabetes, chronic kidney disease stage 5 for which she is to start peritoneal dialysis in the coming days, anemia of chronic disease, coronary artery disease, hypertension, hypothyroidism, and several other comorbidities who presented to the emergency department earlier today via EMS from home with complaints of generalized weakness. Pt is covid positive, pt to have tunnel catheter placed under surgery and start hemodialysis in [place]. Pt is for discharge tomorrow. From respiratory point of view pt is stable. NO respiratory complaints. Review of Systems Review of Systems: All systems reviewed & are unremarkable except as noted in HPI and below Exam Narrative: Exam Narrative: General: Well-developed elderly female. Respiratory: Appears in no respiratory distress. Gastrointestinal: Peritoneal dialysis catheter in the left mid quadrant. Skin: Warm and dry. Faint skin changes of the lower legs bilaterally due to chronic edema. Extremities: No cyanosis or clubbing. Mild chronic edema BL Neurological: Alert. Cranial nerves 2-12 are grossly intact. No gross focal deficits to casual conversation. Psychiatric: Cooperative. Normal mood and slightly odd affect. Objective Data Vital Signs Vital Signs: Vital Signs - 24 hr 02/29/20 16:00 02/29/20 20:00 02/29/20 20:01 Temperature 37.6 C H 37.3 C Pulse Rate 71 72 92 Respiratory Rate 16 20 Blood Pressure 145/56 H 149/64 H Pulse Oximetry 91 90 03/01/20 00:00 03/01/20 04:00 03/01/20 08:00 Temperature 36.8 C 36.7 C 36.6 C Pulse Rate 70 66 58 L Respiratory Rate 18 18 18 Blood Pressure 154/58 H 153/54 H 123/64 Pulse Oximetry 90 92 92 03/01/20 09:24 Temperature Pulse Rate 66 Respiratory Rate Blood Pressure Pulse Oximetry Intake/Output Intake/Output: Intake & Output 02/27/20 02/28/20 02/29/20 03/01/20 23:59 23:59 23:59 23:59 Intake Total 875 1675 Output Total 8428 Balance 875 -783 Meds/Results Medications: Active Medications Generic Name Dose Route Start Last Admin Trade Name Freq PRN Reason Stop Dose Admin Acetaminoph
[2020-03-01 14:48] LABS: Anion Gap 10 mmol/L (8-16); Blood Urea Nitrogen 37 mg/dL (7-17); Calcium 7.9 mg/dL (8.4-10.2); Carbon Dioxide 20 mmol/L (22-30); Chloride 110 mmol/L (98-107); Estimated CRCL calculation 7 ml/min; Estimated Glomerular Filt Rate 6; Glucose 198 mg/dL (65-105); Sodium 140 mmol/L (137-145)
--- NOTE | 2020-03-01 17:34 | PM.PNNEP ---
Progress Note: A&P Assessment and Plan (1) End stage renal disease: Code(s): N18.6 - End stage renal disease Status: Chronic Assessment and Plan: The patient has end-stage renal disease. She is COVID positive. continue PD while here then change to HD once discharged. after 20 days from [facility] she can go to [place] [facility] and then train when nurse available. Discussed at length with the patient. (2) COVID-19: Code(s): U07.1 - COVID-19 Status: Acute Assessment and Plan: The patient has COVID-19. She is in isolation. NO dex since not hypoxic. (3) Anemia of chronic disease: Code(s): D63.8 - Anemia in other chronic diseases classified elsewhere Status: Acute Assessment and Plan: Hemoglobin is 8.4. she will get epo on HD (4) Pneumonia: Code(s): J18.9 - Pneumonia, unspecified organism Status: Acute Assessment and Plan: On ceftriaxone and azithromycin. (5) Pericardial effusion: Onset Date: ~01/2020 Code(s): I31.3 - Pericardial effusion (noninflammatory) Status: Acute Assessment and Plan: Will repeat an echocardiogram down the line. (6) Diet-controlled type 2 diabetes mellitus: Code(s): E11.9 - Type 2 diabetes mellitus without complications Status: Chronic Assessment and Plan: On her diet (7) Hyperlipidemia: Code(s): E78.5 - Hyperlipidemia, unspecified Status: Chronic (8) BEKA (obstructive sleep apnea): Code(s): G47.33 - Obstructive sleep apnea (adult) (pediatric) Status: Chronic Assessment and Plan: She does not use a CPAP machine Subjective Date/time seen: 03/01/20 17:34 Interval history: pt is up in a chair. feels fine. no sob. very anxious. On PD tariq it well. seen at 2pm. up to 1.5 L volume and doing fine. Review of Systems Cardiovascular: Cardiovascular: Reports no additional cardiovascular complaints Respiratory: Respiratory: Reports no additional respiratory complaints Gastrointestinal: Gastrointestinal: Reports no additional gastrointestinal complaints Genitourinary: Genitourinary: Reports no additional female genitourinary complaints Exam Narrative: Exam Narrative: WDWN in NAD skin no rash head ncat lungs clear bilaterally cor reg no rub abd BS+ nontender and soft ext no edema. Objective Data Vital Signs Vital Signs: Vital Signs - 24 hr 02/29/20 20:00 02/29/20 20:01 03/01/20 00:00 Temperature 37.3 C 36.8 C Pulse Rate 72 92 70 Respiratory Rate 20 18 Blood Pressure 149/64 H 154/58 H Pulse Oximetry 90 90 03/01/20 04:00 03/01/20 08:00 03/01/20 09:24 Temperature 36.7 C 36.6 C Pulse Rate 66 58 L 66 Respiratory Rate 18 18 Blood Pressure 153/54 H 123/64 Pulse Oximetry 92 92 03/01/20 12:00 03/01/20 16:00 Temperature 36.2 C L 36.6 C Pulse Rate 60 68 Respiratory Rate 20 18 Blood Pressure 98/53 L 156/70 H Pulse Oximetry 90 92 Intake/Output Intake/Output: Intake & Output 02/27/20 02/28/20 02/29/20 03/01/20 23:59 23:59 23:59 23:59 Intake Total 875 1675 1010 Output Total 2458 Balance 875 -783 1010 Meds/Results Medications: Active Medications Generic Name Dose Route Start Last Admin Trade Name Freq PRN Reason Stop Dose Admin Acetaminophen 650 mg 02/28/20 19:07 02/29/20 04:40 Acetaminophen 325 Mg Tablet PO 650 mg Q6H PRN Administration Mild Pain (1-3) or Fever Allopurinol 300 mg 02/29/20 09:00 03/01/20 09:23 Allopurinol 300 Mg Tablet PO 300 mg DAILY SUKI Administration Amlodipine Besylate 5 mg 02/29/20 09:00 03/01/20 09:23 Amlodipine Besylate 5 Mg Tablet PO 5 mg DAILY SUKI Administration Aspirin 325 mg 02/29/20 09:00 03/01/20 09:23 Aspirin 325 Mg Tablet PO 325 mg DAILY SUKI Administration Buspirone HCl 10 mg 02/28/20 21:00 03/01/20 09:24 Buspirone Hcl 10 Mg Tablet PO 10 mg Q12HR SUKI Administration Chlorhexidine Glucon
[2020-03-01] MEDS: SIMVASTATIN 10 MG TABLET PO (20:53)
[2020-03-02] VITALS (17 sets, daily range): BP systolic 108–162; BP diastolic 51–83; PULSE 63–83; RESP 16–24; TEMP 36.2–37.3; O2SAT 89–96
[2020-03-02 02:28] LABS: Pneumococcal Antigen Urine Not Detected (Not Detected)
[2020-03-02] MEDS: LEVOTHYROXINE SODIUM 75 MCG TABLET PO (05:47)
[2020-03-02 06:45] LABS: Hematocrit 27.6 % (37.0-47.0); Hemoglobin 8.7 g/dL (12.0-15.0); Mean Corpuscular HGB Conc 31.5 g/dl (32-36); Mean Corpuscular Hemoglobin 27.6 pg (26-34); Mean Corpuscular Volume 87.6 fl (80-100); Mean Platelet Volume 10.4 fl (7.4-10.4); Platelet Count Result 245 k/mm3 (150-375); Red Blood Count 3.15 M/mm3 (4.2-5.4); Red Cell Distribution Width 15.8 % (11.5-14.5)
[2020-03-02 06:57] LABS: Albumin Level 2.4 g/dL (3.5-5.1); Anion Gap 9 mmol/L (8-16); Blood Urea Nitrogen 37 mg/dL (7-17); Calcium 7.8 mg/dL (8.4-10.2); Carbon Dioxide 21 mmol/L (22-30); Chloride 110 mmol/L (98-107); Estimated CRCL calculation 7 ml/min; Estimated Glomerular Filt Rate 6; Glucose 191 mg/dL (65-105); Phosphorus 4.5 mg/dL (2.5-4.5); Sodium 140 mmol/L (137-145)
[2020-03-02] MEDS: METOPROLOL TARTRATE 50 MG TAB PO ×2 (07:30→20:53)
[2020-03-02] MEDS: CHLORHEXIDINE GLUCONATE 4% SOL 120 ML BTL 1 APPLIC TOPICAL (08:30)
--- NOTE | 2020-03-02 08:31 | WPDHPUPDATE1 ---
History and Physical Update Update Date/Time: 03/02/20 08:32 History and Physical has been reviewed, including an updated exam of the patient. There are NO changes in the patient's condition. Risks, benefits, and alternatives have been discussed and questions answered. Patient agrees to proceed with procedure.
--- NOTE | 2020-03-02 09:39 | PC.NURSE ---
Patient to surgery to bed.
[2020-03-02] MEDS: ceFAZolin SODIUM 1 GM VIAL 2 GM IV PUSH (10:12)
[2020-03-02] MEDS: SODIUM CHLORIDE 0.9% IV 1,000 ML 30 ML IV CONT (10:15)
[2020-03-02] MEDS: LIDO 1%/EPINEPHRINE 1:100,000 20 ML VIAL INFILTRATE (10:33)
[2020-03-02] MEDS: HEPARIN SODIUM, PORCINE 10,000 UNITS/10 ML VIAL 5 UNITS IV PUSH (10:35)
--- NOTE | 2020-03-02 11:18 | PM.PROC ---
Procedure Note - Detailed Date of procedure: 03/02/20 Pre-op diagnosis: END-STAGE RENAL DISEASE, INADEQUATE VENOUS ACCESS End-stage renal disease, inadequate venous access Post-op diagnosis: same Procedure performed: Placement right internal jugular tunneled Dura Flow central venous catheter under fluoroscopy Description of procedure: Patient was taken to surgery and induced into general anesthesia per laryngeal mask airway. The head was turned slightly to the left. The right neck and right upper chest were prepped and draped. Full sterile precautions and COVID precautions were used. Local anesthetic was infiltrated in the area of the right internal jugular vein. It took a few punctures to cannulate the vein such that a guidewire would pass but eventually this was accomplished. C-arm fluoroscopy showed the guidewire to be in the superior vena cava. Using C-arm fluoroscopy I mapped out the path of a 32 cm Dura Flow tunneled central venous catheter. The proposed counter incisions to tunnel the catheter were marked on the skin. Local anesthetic was infiltrated into the each of the counter incision sites. Incisions were then made. The exit site of the catheter also was incised. The catheter was then tunneled from just above the clavicle up the neck and out the incision where the guidewire was exiting. Serial dilators were then passed over the guidewire and into the superior vena cava. C-arm fluoroscopy was used to guide the dilators as well. The dilator with sleeve was then passed over the guidewire under fluoroscopy and into this superior vena cava. The dilator and guidewire were removed. The dura Flow catheter tip was then passed through the sleeve and into the superior vena cava. The sleeve was then removed. We checked the position of the catheter with fluoroscopy. It had a very smooth course with no kinks. The tip was in the distal SVC right atrial junction as planned. Both ports of the catheter aspirated blood easily and flushed well with heparin. Final flush of heparin was given into each of the 2 ports. Each port was capped as well. The catheter was sutured to the skin with 3 0 nylon. All the counter incisions were closed with subcuticular interrupted 4 O Vicryl suture. The counter incisions were dressed with Exofin surgical adhesive. Sterile transparent dressing was placed over the end of the catheter. Sponge and needle counts were correct x2. Implants: 32 cm Dura Flow catheter Anesthesia: GLMA and local (0.25% Marcaine with epinephrine) Surgeon: Marques Waterman MD Head Waiter: YARELIS Chavez Estimated blood loss (mL): 10 Drains: No Packing: No Pathology: none sent Complications: None Condition: stable Disposition: floor Findings: None significant
--- NOTE | 2020-03-02 11:30 | PCOTNOTE ---
Attempted to see Patient this A.M. Patient out of the room at this time. Per RN, Patient in down in surgery getting a dialysis catheter. No therapy this A.M.
--- NOTE | 2020-03-02 12:24 | SUR.PHASEI ---
1120 pt placed on cpap pf 5 after being extubated in or. pt drowsy not following commands or making sense. 1145 pt talking making sense, placed on 8L simple mask o2 sat>92%. weaned down to 6L still greater then 92%. 1208 pt placed on 5L nc hanging about 88-90%, alertx3 and talking. spoke with dr campoverde and he is ok with these numbers.
--- NOTE | 2020-03-02 12:54 | PC.NURSE ---
Pt returned from OR per bed.
[2020-03-02] MEDS: POTASSIUM CHLORIDE 20 MEQ TABLET.ER 40 MEQ PO ×2 (13:13→17:00)
[2020-03-02] MEDS: allopurinoL 300 MG TABLET PO (13:14)
[2020-03-02] MEDS: ASPIRIN 325 MG TABLET PO (13:14)
[2020-03-02] MEDS: FERROUS SULFATE 324 MG TABLET PO (13:14)
[2020-03-02] MEDS: busPIRone HCL 10 MG TABLET PO ×2 (13:14→20:54)
[2020-03-02] MEDS: MULTIVITAMINS /C LUTEIN (CENTRUM SILVER) TABLET *BKC 1 TAB PO (13:15)
[2020-03-02] MEDS: SERTRALINE HCL 50 MG TABLET 100 MG PO (13:15)
[2020-03-02] MEDS: amLODIPine BESYLATE 5 MG TABLET PO (13:15)
--- NOTE | 2020-03-02 13:17 | PM.IMPN ---
Progress Note: A&P Assessment and Plan (1) Generalized weakness: Code(s): R53.1 - Weakness Status: Acute Assessment and Plan: PT/ OT to start soon (2) Pneumonia: Code(s): J18.9 - Pneumonia, unspecified organism Status: Acute Assessment and Plan: Pt is on iv rocephin and iv zithromax (3) Hypokalemia: Code(s): E87.6 - Hypokalemia Status: Acute Assessment and Plan: potassium supplementation Potassium is 3 today (4) Hypertension: Code(s): I10 - Essential (primary) hypertension Status: Acute (5) Chronic kidney disease, stage 5: Code(s): N18.5 - Chronic kidney disease, stage 5 Status: Chronic Assessment and Plan: Pt to start hemodialysis in [place] soon, first dialysis here, sp tunnel catheter placement today (6) Anemia of chronic disease: Code(s): D63.8 - Anemia in other chronic diseases classified elsewhere Status: Acute Assessment and Plan: on epogen (7) Diet-controlled type 2 diabetes mellitus: Code(s): E11.9 - Type 2 diabetes mellitus without complications Status: Chronic (8) Hypothyroidism: Code(s): E03.9 - Hypothyroidism, unspecified Status: Chronic Assessment and Plan: on levothyroxine (9) Hyperlipidemia: Code(s): E78.5 - Hyperlipidemia, unspecified Status: Chronic (10) Depression with anxiety: Code(s): F41.8 - Other specified anxiety disorders Status: Chronic Assessment and Plan: Pt is on buspar (11) Crohn's disease: Code(s): K50.90 - Crohn's disease, unspecified, without complications Status: Chronic (12) Suspected COVID-19 virus infection: Code(s): Z20.828 - Contact with and (suspected) exposure to other viral communicable diseases Status: Acute Assessment and Plan: Pt is on isolation, not on oxygen no respiratory compliants Subjective Date/time seen: 03/02/20 13:17 Interval history: 74-year-old female with diet-controlled diabetes, chronic kidney disease stage 5, anemia of chronic disease, coronary artery disease, hypertension, hypothyroidism, and several other comorbidities who presented to the emergency department earlier today via EMS from home with complaints of generalized weakness. Pt is covid positive, pt sp tunnel catheter placed under surgery today, pt to and start hemodialysis here then at [place]. Pt is for discharge thursday. From respiratory point of view pt is stable. NO respiratory complaints. Wants a pepsi Review of Systems Review of Systems: All systems reviewed & are unremarkable except as noted in HPI and below Exam Narrative: Exam Narrative: General: Well-developed elderly female.friendly alert Respiratory: Appears in no respiratory distress. Neck: right internal jugular tunneled Gastrointestinal: soft non tender Skin: Warm and dry. Extremities: No cyanosis or clubbing. Mild chronic edema BL Neurological: Alert. Cranial nerves 2-12 are grossly intact. No gross focal deficits to casual conversation. Psychiatric: Cooperative. Objective Data Vital Signs Vital Signs: Vital Signs - 24 hr 03/01/20 16:00 03/01/20 20:00 03/01/20 20:53 Temperature 36.6 C 36.7 C Pulse Rate 68 64 80 Respiratory Rate 18 18 Blood Pressure 156/70 H 119/41 L Pulse Oximetry 92 90 03/01/20 22:45 03/01/20 23:05 03/02/20 00:00 Temperature 36.9 C Pulse Rate 62 63 Respiratory Rate 20 Blood Pressure 132/63 Pulse Oximetry 90 89 L 96 03/02/20 04:00 03/02/20 07:30 03/02/20 08:00 Temperature 36.7 C 37.1 C Pulse Rate 69 70 71 Respiratory Rate 18 16 Blood Pressure 150/54 H 155/59 H Pulse Oximetry 93 91 03/02/20 11:16 03/02/20 11:30 03/02/20 11:45 Temperature 36.2 C L Pulse Rate 81 83 81 Respiratory Rate 24 H 24 H 22 H Blood Pressure 158/83 H 162/63 H 161/55 H Pulse Oximetry 94 96 90 03/02/20 12:00 03/02/20 12:20 03/02/20 13:00 Temperat
[2020-03-02 14:38] LABS: Glucose Point of Care 207 (65-105)
[2020-03-02] MEDS: EPOETIN ALFA-EPBX 10,000 UNITS/ML VIAL 10000 UNITS SUB-Q (17:03)
[2020-03-02] MEDS: SIMVASTATIN 10 MG TABLET PO (20:53)
[2020-03-02] MEDS: HEPARIN SODIUM 5,000 UNITS/ML VIAL 5000 UNITS SUB-Q (20:54)
[2020-03-03] VITALS (9 sets, daily range): BP systolic 132–166; BP diastolic 54–63; PULSE 69–81; RESP 16–22; TEMP 36.4–36.9; O2SAT 90–91
[2020-03-03 03:13] LABS: Legionella pneumophila Ag Ur Not Detected (Not Detected)
[2020-03-03] MEDS: LEVOTHYROXINE SODIUM 75 MCG TABLET PO (05:27)
[2020-03-03 06:58] LABS: Hematocrit 28.2 % (37.0-47.0); Hemoglobin 8.8 g/dL (12.0-15.0); Mean Corpuscular HGB Conc 31.2 g/dl (32-36); Mean Corpuscular Volume 89.8 fl (80-100); Mean Platelet Volume 10.6 fl (7.4-10.4); Platelet Count Result 262 k/mm3 (150-375); Red Blood Count 3.14 M/mm3 (4.2-5.4); Red Cell Distribution Width 15.7 % (11.5-14.5); White Blood Count 8.4 K/mm3 (4.5-10.0)
[2020-03-03 07:10] LABS: Anion Gap 9 mmol/L (8-16); Blood Urea Nitrogen 39 mg/dL (7-17); Calcium 7.9 mg/dL (8.4-10.2); Carbon Dioxide 21 mmol/L (22-30); Chloride 109 mmol/L (98-107); Estimated CRCL calculation 6 ml/min; Estimated Glomerular Filt Rate 6; Glucose 219 mg/dL (65-105); Potassium 3.5 mmol/L (3.4-5.0); Sodium 139 mmol/L (137-145)
[2020-03-03] MEDS: allopurinoL 300 MG TABLET PO (08:19)
[2020-03-03] MEDS: POTASSIUM CHLORIDE 20 MEQ TABLET.ER 40 MEQ PO (08:19)
[2020-03-03] MEDS: amLODIPine BESYLATE 5 MG TABLET PO (08:20)
[2020-03-03] MEDS: MULTIVITAMINS /C LUTEIN (CENTRUM SILVER) TABLET *BKC 1 TAB PO (08:20)
[2020-03-03] MEDS: SERTRALINE HCL 50 MG TABLET 100 MG PO (08:20)
[2020-03-03] MEDS: FERROUS SULFATE 324 MG TABLET PO (08:20)
[2020-03-03] MEDS: METOPROLOL TARTRATE 50 MG TAB PO ×2 (08:20→23:20)
[2020-03-03] MEDS: busPIRone HCL 10 MG TABLET PO ×2 (08:20→23:23)
[2020-03-03] MEDS: ASPIRIN 325 MG TABLET PO (08:20)
[2020-03-03] MEDS: HEPARIN SODIUM 5,000 UNITS/ML VIAL 5000 UNITS SUB-Q (08:23)
[2020-03-03 12:48] LABS: Glucose Point of Care 258 (65-105)
--- NOTE | 2020-03-03 16:09 | PM.IMPN ---
Progress Note: A&P Assessment and Plan (1) Generalized weakness: Code(s): R53.1 - Weakness Status: Acute Assessment and Plan: PT/ OT to start soon (2) Pneumonia: Code(s): J18.9 - Pneumonia, unspecified organism Status: Acute Assessment and Plan: Pt is on iv rocephin and iv zithromax (3) Hypokalemia: Code(s): E87.6 - Hypokalemia Status: Resolved (4) Hypertension: Code(s): I10 - Essential (primary) hypertension Status: Acute (5) Chronic kidney disease, stage 5: Code(s): N18.5 - Chronic kidney disease, stage 5 Status: Chronic Assessment and Plan: Pt to start hemodialysis in [facility], sp tunnel catheter placement yesteday, PD while in hospital, thursday DC (6) Anemia of chronic disease: Code(s): D63.8 - Anemia in other chronic diseases classified elsewhere Status: Acute Assessment and Plan: on epogen (7) Diet-controlled type 2 diabetes mellitus: Code(s): E11.9 - Type 2 diabetes mellitus without complications Status: Chronic (8) Hypothyroidism: Code(s): E03.9 - Hypothyroidism, unspecified Status: Chronic Assessment and Plan: on levothyroxine (9) Hyperlipidemia: Code(s): E78.5 - Hyperlipidemia, unspecified Status: Chronic (10) Depression with anxiety: Code(s): F41.8 - Other specified anxiety disorders Status: Chronic Assessment and Plan: Pt is on buspar (11) Crohn's disease: Code(s): K50.90 - Crohn's disease, unspecified, without complications Status: Chronic (12) Suspected COVID-19 virus infection: Code(s): Z20.828 - Contact with and (suspected) exposure to other viral communicable diseases Status: Acute Assessment and Plan: Pt is on isolation, not on oxygen no respiratory complaints, covid stable Subjective Date/time seen: 03/03/20 16:09 Interval history: 74-year-old female with diet-controlled diabetes, chronic kidney disease stage 5, anemia of chronic disease, coronary artery disease, hypertension, hypothyroidism, and several other comorbidities who presented to the emergency department earlier today via EMS from home with complaints of generalized weakness. Pt is covid positive, pt sp tunnel catheter placed under surgery today, pt to and start hemodialysis here then at [facility] [place]. Pt is for discharge thursday. From respiratory point of view pt is stable. NO respiratory complaints. Review of Systems Review of Systems: All systems reviewed & are unremarkable except as noted in HPI and below Exam Narrative: Exam Narrative: General: Well-developed elderly female.friendly alert Respiratory: Appears in no respiratory distress. Neck: right internal jugular tunneled Gastrointestinal: soft non tender Skin: Warm and dry. Extremities: No cyanosis or clubbing. Mild chronic edema BL Neurological: Alert. Cranial nerves 2-12 are grossly intact. No gross focal deficits to casual conversation. Psychiatric: Cooperative. Objective Data Vital Signs Vital Signs: Vital Signs - 24 hr 03/02/20 19:30 03/02/20 20:53 03/02/20 22:13 Temperature 37.1 C Pulse Rate 70 72 Respiratory Rate 20 Blood Pressure 108/57 L Pulse Oximetry 92 90 03/03/20 01:08 03/03/20 04:00 03/03/20 08:00 Temperature 36.9 C 36.6 C 36.7 C Pulse Rate 70 71 69 Respiratory Rate 20 20 16 Blood Pressure 137/54 L 156/57 H 132/63 Pulse Oximetry 90 91 91 03/03/20 08:18 03/03/20 08:20 03/03/20 12:00 Temperature 36.6 C 36.8 C Pulse Rate 71 69 73 Respiratory Rate 20 16 Blood Pressure 156/57 H 141/55 H Pulse Oximetry 90 Intake/Output Intake/Output: Intake & Output 02/29/20 03/01/20 03/02/20 03/03/20 23:59 23:59 23:59 23:59 Intake Total 1675 1610 800 440 Output Total 4855 1448 1238 Balance -783 1610 -648 -798 Meds/Results Medications: Active Medications Generic Name Dose Route Start Last Admin T
--- NOTE | 2020-03-03 17:13 | PM.PNNEP ---
Progress Note: A&P Assessment and Plan (1) End stage renal disease: Code(s): N18.6 - End stage renal disease Status: Chronic Assessment and Plan: plan to continue nightly PD while hospitalized HD on discharge given her with outpatient PD training however, patient now refusing HD or PD at this time will need to address goals of care if she really does want to not do any type of dialysis... (2) COVID-19: Code(s): U07.1 - COVID-19 Status: Acute Assessment and Plan: remains on isolation supportive care (3) Anemia of chronic disease: Code(s): D63.8 - Anemia in other chronic diseases classified elsewhere Status: Acute Assessment and Plan: due to ESRD and acute illness Epogen SQ 3x/week planned to continue with HD on discharge (4) Pneumonia: Code(s): J18.9 - Pneumonia, unspecified organism Status: Acute Assessment and Plan: on ceftriaxone and azithromycin follow respiratory status (5) Pericardial effusion: Onset Date: ~01/2020 Code(s): I31.3 - Pericardial effusion (noninflammatory) Status: Acute Assessment and Plan: repeat an echocardiogram down the line related to ESRD (?) Will need to discuss with patient and family goals of care since she is now not wanting to pursue renal replacement therapy as treatment. Will continue to follow Subjective Date/time seen: 03/03/20 17:13 Tells me at the time of my visit that she does not want to do dialysis anymore -- says it is too much with all of her other issues and problems; does not appears to have told anyone else regarding this decision until now. Exam Narrative: Exam Narrative: General: WD/WN female in NAD Heart: normal S1 and S2; no rub Lungs: coarse breath sounds Abdomen: soft, nontender, nondistended, positive bowel sounds Extremities: no cyanosis or clubbing; no edema Skin: warm and dry Objective Data Vital Signs Vital Signs: Vital Signs Temp Pulse Resp BP Pulse Ox 03/03/20 12:00 36.8 C 73 16 141/55 H 90 03/03/20 08:20 69 03/03/20 08:18 36.6 C 71 20 156/57 H 03/03/20 08:00 36.7 C 69 16 132/63 91 03/03/20 04:00 36.6 C 71 20 156/57 H 91 03/03/20 01:08 36.9 C 70 20 137/54 L 90 03/02/20 22:13 37.1 C 72 20 108/57 L 90 03/02/20 20:53 70 03/02/20 19:30 92 Intake/Output Intake/Output: Intake & Output 02/29/20 03/01/20 03/02/20 03/03/20 23:59 23:59 23:59 23:59 Intake Total 1675 1610 800 440 Output Total 2458 1448 1238 Balance -783 1610 -648 -798 Meds/Results Medications: Active Medications Generic Name Dose Route Start Last Admin Trade Name Freq PRN Reason Stop Dose Admin Acetaminophen 650 mg 02/28/20 19:07 02/29/20 04:40 Acetaminophen 325 Mg Tablet PO 650 mg Q6H PRN Administration Mild Pain (1-3) or Fever Allopurinol 300 mg 02/29/20 09:00 03/03/20 08:19 Allopurinol 300 Mg Tablet PO 300 mg DAILY SUKI Administration Amlodipine Besylate 5 mg 02/29/20 09:00 03/03/20 08:20 Amlodipine Besylate 5 Mg Tablet PO 5 mg DAILY SUKI Administration Aspirin 325 mg 02/29/20 09:00 03/03/20 08:20 Aspirin 325 Mg Tablet PO 325 mg DAILY SUKI Administration Buspirone HCl 10 mg 02/28/20 21:00 03/03/20 08:20 Buspirone Hcl 10 Mg Tablet PO 10 mg Q12HR [facility] Administration Epoetin Kelechi-epbx 10,000 units 02/29/20 18:00 03/02/20 17:03 Epoetin Kelechi-Epbx 10,000 Units/Ml Vial SUB-Q 10,000 units [id number] [facility] Administration Ergocalciferol 50,000 unit 03/06/20 09:00 Ergocalciferol 50,000 Unit Capsule PO Tu@0900 [facility] Fentanyl Citrate 12.5 mcg 03/02/20 12:42 Fentanyl Citrate Inj (*Crx) 100 Mcg/2 Ml Vial IV PUSH Q2H PRN Pain Rated 4-6 Fentanyl Citrate 25 mcg 03/02/20 12:42 Fentanyl Citrate Inj (*Crx) 100 Mcg/2 Ml Vial IV PUSH Q2H PRN Pain Rated 7-10 Ferrous Sulfate 324 mg 02/29/20 0
--- NOTE | 2020-03-03 20:12 | PC.NURSE ---
Pt refused [facility] 03/03/20. Pt is alert and oriented x 4. Pt educated on need for treatment and potential consequences of refusing PD. Floor RN notified. Dr. Howard notified.
[2020-03-03] MEDS: oxyCODONE/ACETAMINOPHEN (*CRX) 5-325 MG TABLET 1 TABLET PO (22:42)
[2020-03-03] MEDS: oxyCODONE HCL (*CRX) 2.5 MG TAB IR PO (22:43)
[2020-03-03] MEDS: SIMVASTATIN 10 MG TABLET PO (23:23)
--- NOTE | 2020-03-03 23:37 | PC.NURSE ---
2200 Pt deckined to have her blood sugar checked.
--- NOTE | 2020-03-03 23:37 | PC.NURSE ---
2300 pt assisted to the chair with gait belt and ania steady with assist of 2 staff memebers. Tolerated well. Warm blankets provided. Soda to drink. C/O pain in her mouth and throat. Silvia NUNEZ gave a verbal order for magic mouthwash q 4 hours. Pt allowed time to vent. She wants to go home. She does not want to continue with any form of dialysis. She wants to go home most likely with hospice and spend time with her family.
[2020-03-04] VITALS (9 sets, daily range): BP systolic 106–144; BP diastolic 41–56; PULSE 62–86; RESP 16–20; TEMP 36.2–37.1; O2SAT 90–95
[2020-03-04] MEDS: MAGNES & ALUM HYD/SIMETH/DIPHENHYD/LIDOCAINE 119 ML MOUTHWASH BY MOUTH ×2 (01:00→22:30)
[2020-03-04] MEDS: oxyCODONE HCL (*CRX) 2.5 MG TAB IR PO (03:38)
[2020-03-04] MEDS: oxyCODONE/ACETAMINOPHEN (*CRX) 5-325 MG TABLET 1 TABLET PO (03:41)
[2020-03-04] MEDS: LEVOTHYROXINE SODIUM 75 MCG TABLET PO (06:16)
[2020-03-04] MEDS: busPIRone HCL 10 MG TABLET PO ×2 (09:28→22:29)
[2020-03-04] MEDS: amLODIPine BESYLATE 5 MG TABLET PO (09:28)
[2020-03-04] MEDS: ASPIRIN 325 MG TABLET PO (09:28)
[2020-03-04] MEDS: METOPROLOL TARTRATE 50 MG TAB PO ×2 (09:29→22:29)
[2020-03-04] MEDS: SERTRALINE HCL 50 MG TABLET 100 MG PO (09:30)
[2020-03-04] MEDS: HEPARIN SODIUM 5,000 UNITS/ML VIAL 5000 UNITS SUB-Q ×2 (09:39→22:29)
[2020-03-04 10:17] LABS: Magnesium 1.8 mg/dL (1.6-2.3)
[2020-03-04 10:18] LABS: Albumin Level 2.3 g/dL (3.5-5.1); Anion Gap 10 mmol/L (8-16); Blood Urea Nitrogen 47 mg/dL (7-17); Calcium 7.7 mg/dL (8.4-10.2); Carbon Dioxide 21 mmol/L (22-30); Chloride 106 mmol/L (98-107); Estimated CRCL calculation 6 ml/min; Estimated Glomerular Filt Rate 5; Glucose 112 mg/dL (65-105); Phosphorus 6.4 mg/dL (2.5-4.5); Potassium 4.2 mmol/L (3.4-5.0); Sodium 137 mmol/L (137-145)
--- NOTE | 2020-03-04 11:57 | PCDIET ---
Nutrition Follow-Up Complete: Inadequate Oral Intake as related to pneumonia as evidenced by reported weight loss reported and poor po intake. Meet estimated nutritional needs Goal: progressing towards goal; continue goal Pt current nutrition is Renal Dialysis Nutrition recommendation: + Nepro BID Last recorded weight is 80.1 kg, down from 84.5kg on assessment (I/O +199) Bowel Motility: 2 BMs yesterday Labs Reviewed: GFR 5, 6.4 Phosphorus, 2.3 Albumin Meds Noted:Epogen, Zithromax, fentanyl, Synthroid, multivitamin Additional Notes: Pt has three meals since . When she does eat, she eats well with an average of 70%. We will provide Nepro BID to help meet needs and restore lost protein from dialysis. Nepro provides 425 kcal and 19.1g protein per serving. It is a good source of fiber and an excellent source of high quality protein to help meet nutritional needs and replace protein lost in dialysis. It is low in phosphorus, potassium, and sodium with a carbohydrate steady blend to manage blood glucose response. Recommend assistance with feedings as needed. Will monitor for adequate PO intake every 5 days.
--- NOTE | 2020-03-04 14:04 | PM.PNNEP ---
Progress Note: A&P Assessment and Plan (1) End stage renal disease: Code(s): N18.6 - End stage renal disease Status: Chronic Assessment and Plan: plan was to continue nightly PD while hospitalized plan was also HD on discharge with outpatient PD training however, patient now refusing HD or PD at this time will need to address goals of care if she really does want to not do any type of dialysis...I would probably talk with her POA/family to make sure they aware of what she is saying (2) COVID-19: Code(s): U07.1 - COVID-19 Status: Acute Assessment and Plan: remains on isolation supportive care (3) Anemia of chronic disease: Code(s): D63.8 - Anemia in other chronic diseases classified elsewhere Status: Acute Assessment and Plan: due to ESRD and acute illness Epogen SQ 3x/week planned to continue with HD on discharge (4) Pneumonia: Code(s): J18.9 - Pneumonia, unspecified organism Status: Acute Assessment and Plan: on ceftriaxone and azithromycin follow respiratory status (5) Pericardial effusion: Onset Date: ~01/2020 Code(s): I31.3 - Pericardial effusion (noninflammatory) Status: Acute Assessment and Plan: repeat an echocardiogram down the line related to ESRD (?) Will need to discuss with family goals of care since she is now not wanting to pursue renal replacement therapy as treatment option. Will continue to follow Subjective Date/time seen: 03/04/20 14:04 Refused to do peritoneal dialysis last night and once again tells me that she does not want to do dialysis (peritoneal dialysis or hemodialysis) -- however, there is some concern that she may not fully understand the ramifications of what she is saying (due to possible depression). Exam Narrative: Exam Narrative: General: WD/WN female in NAD Heart: normal S1 and S2; no rub Lungs: coarse breath sounds Abdomen: soft, nontender, nondistended, positive bowel sounds Extremities: no cyanosis or clubbing; no edema Skin: warm and intact Objective Data Vital Signs Vital Signs: Vital Signs Temp Pulse Resp BP Pulse Ox 03/04/20 12:00 36.3 C L 72 18 125/44 L 92 03/04/20 09:29 86 03/04/20 08:00 36.2 C L 80 16 142/56 H 90 03/04/20 04:00 36.4 C 62 20 113/41 L 94 03/04/20 00:00 36.6 C 62 20 106/56 L 95 03/03/20 23:20 81 03/03/20 22:00 36.8 C 81 22 H 166/56 H 90 03/03/20 16:00 36.4 C L 76 18 152/57 H 90 Intake/Output Intake/Output: Intake & Output 03/01/20 03/02/20 03/03/20 03/04/20 23:59 23:59 23:59 23:59 Intake Total 1642 201 9205 200 Output Total 1448 1638 1 Balance 6340 -700 -258 199 Meds/Results Medications: Active Medications Generic Name Dose Route Start Last Admin Trade Name Freq PRN Reason Stop Dose Admin Acetaminophen 650 mg 02/28/20 19:07 02/29/20 04:40 Acetaminophen 325 Mg Tablet PO 650 mg Q6H PRN Administration Mild Pain (1-3) or Fever Allopurinol 300 mg 02/29/20 09:00 03/03/20 08:19 Allopurinol 300 Mg Tablet PO 300 mg DAILY SUKI Administration Amlodipine Besylate 5 mg 02/29/20 09:00 03/04/20 09:28 Amlodipine Besylate 5 Mg Tablet PO 5 mg DAILY SUKI Administration Aspirin 325 mg 02/29/20 09:00 03/04/20 09:28 Aspirin 325 Mg Tablet PO 325 mg DAILY SUKI Administration Buspirone HCl 10 mg 02/28/20 21:00 03/04/20 09:28 Buspirone Hcl 10 Mg Tablet PO 10 mg Q12HR [facility] Administration Epoetin Kelechi-epbx 10,000 units 02/29/20 18:00 03/02/20 17:03 Epoetin Kelechi-Epbx 10,000 Units/Ml Vial SUB-Q 10,000 units [id number] [facility] Administration Ergocalciferol 50,000 unit 03/06/20 09:00 Ergocalciferol 50,000 Unit Capsule PO Tu@0900 [facility] Fentanyl Citrate 12.5 mcg 03/02/20 12:42 Fentanyl Citrate Inj (*Crx) 100 Mcg/2 Ml Vial IV PUSH Q2H PRN Pain Rated 4-6 Fentanyl Citrate 25 mcg 03/02/20
[2020-03-04] MEDS: MULTIVITAMINS /C LUTEIN (CENTRUM SILVER) TABLET *BKC 1 TAB PO (14:08)
[2020-03-04] MEDS: allopurinoL 300 MG TABLET PO (14:09)
[2020-03-04] MEDS: FERROUS SULFATE 324 MG TABLET PO (14:09)
--- NOTE | 2020-03-04 14:26 | PM.IMPN ---
Progress Note: A&P Assessment and Plan (1) Generalized weakness: Code(s): R53.1 - Weakness Status: Acute Assessment and Plan: PT/ OT to start soon 74-year-old female with diet-controlled diabetes, chronic kidney disease stage 5, anemia of chronic disease, coronary artery disease, hypertension, hypothyroidism, and several other comorbidities who presented to the emergency department earlier today via EMS from home with complaints of generalized weakness. Pt is covid positive, pt sp tunnel catheter placed under surgery on , pt to and start hemodialysis here then at [place]. Pt is for discharge thursday. From respiratory point of view pt is stable. NO respiratory complaints. Today patient clinically stable on 4 L nasal cannula and has not had any fever for last 2 days however patient is quite depressed crying does not want to do dialysis, I spoke with the patient's son Dong he will talk to the patient and for dialysis, possibly discharge the patient home tomorrow to have outpatient dialysis. (2) Pneumonia: Code(s): J18.9 - Pneumonia, unspecified organism Status: Acute Assessment and Plan: Pt is on iv rocephin and iv zithromax (3) Hypokalemia: Code(s): E87.6 - Hypokalemia Status: Resolved (4) Hypertension: Code(s): I10 - Essential (primary) hypertension Status: Acute (5) Chronic kidney disease, stage 5: Code(s): N18.5 - Chronic kidney disease, stage 5 Status: Chronic Assessment and Plan: Pt to start hemodialysis in [place] soon, sp tunnel catheter placement yesteday, PD while in hospital, thursday DC (6) Anemia of chronic disease: Code(s): D63.8 - Anemia in other chronic diseases classified elsewhere Status: Acute Assessment and Plan: on epogen (7) Diet-controlled type 2 diabetes mellitus: Code(s): E11.9 - Type 2 diabetes mellitus without complications Status: Chronic (8) Hypothyroidism: Code(s): E03.9 - Hypothyroidism, unspecified Status: Chronic Assessment and Plan: on levothyroxine (9) Hyperlipidemia: Code(s): E78.5 - Hyperlipidemia, unspecified Status: Chronic (10) Depression with anxiety: Code(s): F41.8 - Other specified anxiety disorders Status: Chronic Assessment and Plan: Pt is on buspar (11) Crohn's disease: Code(s): K50.90 - Crohn's disease, unspecified, without complications Status: Chronic (12) Suspected COVID-19 virus infection: Code(s): Z20.828 - Contact with and (suspected) exposure to other viral communicable diseases Status: Acute Assessment and Plan: Pt is on isolation, not on oxygen no respiratory complaints, covid stable Subjective Date/time seen: 03/04/20 14:26 Interval history: 74-year-old female with diet-controlled diabetes, chronic kidney disease stage 5, anemia of chronic disease, coronary artery disease, hypertension, hypothyroidism, and several other comorbidities who presented to the emergency department earlier today via EMS from home with complaints of generalized weakness. Pt is covid positive, pt sp tunnel catheter placed under surgery on , pt to and start hemodialysis here then at [place]. Pt is for discharge thursday. From respiratory point of view pt is stable. NO respiratory complaints. Today patient clinically stable on 4 L nasal cannula and has not had any fever for last 2 days however patient is quite depressed crying does not want to do dialysis, I spoke with the patient's son Dong he will talk to the patient and for dialysis, possibly discharge the patient home tomorrow to have outpatient dialysis. Review of Systems Review of Systems: ROS unobtainable: Yes unobtainable due to medical condition Exam Narrative: Exam Narrative: Patient is crying sitting in the chair Patient is comfortable, NAD HEENT: eyes are clear and none icteric LUNGS: Normal respiratory
[2020-03-04 17:22] LABS: Glucose Point of Care 128 (65-105)
[2020-03-04] MEDS: ACETAMINOPHEN 325 MG TABLET 650 MG PO (22:28)
[2020-03-04] MEDS: SIMVASTATIN 10 MG TABLET PO (22:29)
[2020-03-04 22:53] LABS: Glucose Point of Care 143 (65-105)
[2020-03-05] VITALS (12 sets, daily range): BP systolic 132–162; BP diastolic 52–63; PULSE 70–83; RESP 18–24; TEMP 36.3–36.9; O2SAT 88–99
[2020-03-05] MEDS: MAGNES & ALUM HYD/SIMETH/DIPHENHYD/LIDOCAINE 119 ML MOUTHWASH BY MOUTH ×5 (05:31→21:09)
[2020-03-05 07:14] LABS: Albumin Level 2.4 g/dL (3.5-5.1); Anion Gap 9 mmol/L (8-16); Blood Urea Nitrogen 51 mg/dL (7-17); Calcium 8.1 mg/dL (8.4-10.2); Carbon Dioxide 24 mmol/L (22-30); Chloride 105 mmol/L (98-107); Estimated CRCL calculation 5 ml/min; Estimated Glomerular Filt Rate 5; Glucose 184 mg/dL (65-105); Phosphorus 6.1 mg/dL (2.5-4.5); Potassium 3.8 mmol/L (3.4-5.0); Sodium 138 mmol/L (137-145)
[2020-03-05] MEDS: FERROUS SULFATE 324 MG TABLET PO (09:24)
[2020-03-05] MEDS: allopurinoL 300 MG TABLET PO (09:25)
[2020-03-05] MEDS: amLODIPine BESYLATE 5 MG TABLET PO (09:26)
[2020-03-05] MEDS: busPIRone HCL 10 MG TABLET PO ×2 (09:26→21:09)
[2020-03-05] MEDS: ASPIRIN 325 MG TABLET PO (09:26)
[2020-03-05] MEDS: HEPARIN SODIUM 5,000 UNITS/ML VIAL 5000 UNITS SUB-Q ×2 (09:27→21:10)
[2020-03-05] MEDS: MULTIVITAMINS /C LUTEIN (CENTRUM SILVER) TABLET *BKC 1 TAB PO (09:28)
[2020-03-05] MEDS: METOPROLOL TARTRATE 50 MG TAB PO ×2 (09:28→21:09)
[2020-03-05] MEDS: POTASSIUM CHLORIDE 20 MEQ TABLET.ER 40 MEQ PO ×2 (09:29→18:01)
[2020-03-05] MEDS: SERTRALINE HCL 50 MG TABLET 100 MG PO (09:30)
[2020-03-05] MEDS: oxyCODONE/ACETAMINOPHEN (*CRX) 5-325 MG TABLET 1 TABLET PO (09:55)
[2020-03-05] MEDS: oxyCODONE HCL (*CRX) 2.5 MG TAB IR PO (09:56)
[2020-03-05 11:59] LABS: Glucose Point of Care 172 (65-105)
--- NOTE | 2020-03-05 16:00 | PM.IMPN ---
Progress Note: A&P Assessment and Plan (1) Generalized weakness: Code(s): R53.1 - Weakness Status: Acute Assessment and Plan: PT/ OT to start soon 74-year-old female with diet-controlled diabetes, chronic kidney disease stage 5, anemia of chronic disease, coronary artery disease, hypertension, hypothyroidism, and several other comorbidities who presented to the emergency department earlier today via EMS from home with complaints of generalized weakness. Pt is covid positive, pt sp tunnel catheter placed under surgery on , pt to and start hemodialysis here then at [place]. Pt is for discharge thursday. From respiratory point of view pt is stable. NO respiratory complaints. on 03/04 patient was clinically stable on 4 L nasal cannula and has not had any fever for last 2 days however patient was quite depressed crying, did not wanted to do HD dialysis, I spoke with the patient's son Dong to talk to the patient and decide about dialysis, today early in the morning patient was still quite depressed and was not communicating however later in the afternoon patient has decided to have a dialysis, will continue, patient be seen by manager culture, will monitor patient overnight and further recommendation to follow. (2) Pneumonia: Code(s): J18.9 - Pneumonia, unspecified organism Status: Acute Assessment and Plan: Pt is on iv rocephin and iv zithromax (3) Hypokalemia: Code(s): E87.6 - Hypokalemia Status: Resolved (4) Hypertension: Code(s): I10 - Essential (primary) hypertension Status: Acute (5) Chronic kidney disease, stage 5: Code(s): N18.5 - Chronic kidney disease, stage 5 Status: Chronic Assessment and Plan: Pt to start hemodialysis in [place] soon, sp tunnel catheter placement yesteday, PD while in hospital, thursday DC (6) Anemia of chronic disease: Code(s): D63.8 - Anemia in other chronic diseases classified elsewhere Status: Acute Assessment and Plan: on epogen (7) Diet-controlled type 2 diabetes mellitus: Code(s): E11.9 - Type 2 diabetes mellitus without complications Status: Chronic (8) Hypothyroidism: Code(s): E03.9 - Hypothyroidism, unspecified Status: Chronic Assessment and Plan: on levothyroxine (9) Hyperlipidemia: Code(s): E78.5 - Hyperlipidemia, unspecified Status: Chronic (10) Depression with anxiety: Code(s): F41.8 - Other specified anxiety disorders Status: Chronic Assessment and Plan: Pt is on buspar (11) Crohn's disease: Code(s): K50.90 - Crohn's disease, unspecified, without complications Status: Chronic (12) Suspected COVID-19 virus infection: Code(s): Z20.828 - Contact with and (suspected) exposure to other viral communicable diseases Status: Acute Assessment and Plan: Pt is on isolation, not on oxygen no respiratory complaints, covid stable Subjective Date/time seen: 03/05/20 16:00 Interval history: 74-year-old female with diet-controlled diabetes, chronic kidney disease stage 5, anemia of chronic disease, coronary artery disease, hypertension, hypothyroidism, and several other comorbidities who presented to the emergency department earlier today via EMS from home with complaints of generalized weakness. Pt is covid positive, pt sp tunnel catheter placed under surgery on , pt to and start hemodialysis here then at [place]. Pt is for discharge thursday. From respiratory point of view pt is stable. NO respiratory complaints. on 03/04 patient was clinically stable on 4 L nasal cannula and has not had any fever for last 2 days however patient was quite depressed crying, did not wanted to do HD dialysis, I spoke with the patient's son Dong to talk to the patient and decide about dialysis, today early in the morning patient was still quite depressed and was not communicating however later in the afternoo
--- NOTE | 2020-03-05 16:05 | PM.PNNEP ---
Progress Note: A&P Assessment and Plan (1) End stage renal disease: Code(s): N18.6 - End stage renal disease Status: Chronic Assessment and Plan: continue nightly PD while hospitalized attempted HD today unsuccessful due to HD catheter dysfunction reattempt HD tomorrow (cathflo to dwell in catheter overnight) tentative plan is for HD on discharge with outpatient training for peritoneal dialysis patient had been refusing dialysis treatments but seems amenable currently (2) COVID-19: Code(s): U07.1 - COVID-19 Status: Acute Assessment and Plan: remains on isolation supportive care (3) Anemia of chronic disease: Code(s): D63.8 - Anemia in other chronic diseases classified elsewhere Status: Acute Assessment and Plan: due to ESRD and acute illness Epogen SQ 3x/week planned to continue with HD on discharge (4) Pneumonia: Code(s): J18.9 - Pneumonia, unspecified organism Status: Acute Assessment and Plan: on ceftriaxone and azithromycin follow respiratory status (5) Pericardial effusion: Onset Date: ~01/2020 Code(s): I31.3 - Pericardial effusion (noninflammatory) Status: Acute Assessment and Plan: repeat an echocardiogram down the line related to ESRD (?) Will continue to follow Subjective Date/time seen: 03/05/20 16:05 Tolerated peritoneal dialysis overnight without any issues or problems; attempted hemodialysis today but HD catheter would not aspirate despite multiple attempts by HD nurses; Cathflo instilled in HD catheter to dwell overnight; no apparent distress voiced at this time; initially refused to do dialysis but did not refuse peritoneal dialysis last night. Exam Narrative: Exam Narrative: General: WD/WN female in NAD Heart: normal S1 and S2; no rub Lungs: coarse breath sounds Abdomen: soft, nontender, nondistended, positive bowel sounds Extremities: no cyanosis or clubbing; no edema Skin: no rash Objective Data Vital Signs Vital Signs: Vital Signs Temp Pulse Resp BP Pulse Ox 03/05/20 12:00 36.7 C 73 18 132/60 98 03/05/20 08:42 36.6 C 70 18 154/60 H 03/05/20 08:00 36.9 C 73 18 162/63 H 98 03/05/20 04:00 36.6 C 70 18 154/60 H 98 03/05/20 03:22 97 03/05/20 03:20 79 24 H 88 L 03/05/20 00:00 36.7 C 76 18 140/62 90 03/04/20 22:29 81 03/04/20 21:22 37.1 C 81 20 144/56 H 93 03/04/20 20:00 90 Intake/Output Intake/Output: Intake & Output 03/02/20 03/03/20 03/04/20 03/05/20 23:59 23:59 23:59 23:59 Intake Total 800 1460 1160 420 Output Total 1448 1638 1 142 Balance -648 -178 1159 278 Meds/Results Medications: Active Medications Generic Name Dose Route Start Last Admin Trade Name Freq PRN Reason Stop Dose Admin Acetaminophen 650 mg 02/28/20 19:07 03/04/20 22:28 Acetaminophen 325 Mg Tablet PO 650 mg Q6H PRN Administration Mild Pain (1-3) or Fever Allopurinol 300 mg 02/29/20 09:00 03/05/20 09:25 Allopurinol 300 Mg Tablet PO 300 mg DAILY SUKI Administration Amlodipine Besylate 5 mg 02/29/20 09:00 03/05/20 09:26 Amlodipine Besylate 5 Mg Tablet PO 5 mg DAILY SUKI Administration Aspirin 325 mg 02/29/20 09:00 03/05/20 09:26 Aspirin 325 Mg Tablet PO 325 mg DAILY SUKI Administration Buspirone HCl 10 mg 02/28/20 21:00 03/05/20 09:26 Buspirone Hcl 10 Mg Tablet PO 10 mg Q12HR SUKI Administration Dextrose 12.5 gm 03/04/20 16:48 Dextrose 50% 25 Gm/50 Ml Syringe IV PUSH PRN PRN Hypoglycemia Protocol Epoetin Kelechi-epbx 10,000 units 02/29/20 18:00 03/02/20 17:03 Epoetin Kelechi-Epbx 10,000 Units/Ml Vial SUB-Q 10,000 units [id number] [facility] Administration Ergocalciferol 50,000 unit 03/06/20 09:00 Ergocalciferol 50,000 Unit Capsule PO Tu@0900 [facility] Fentanyl Citrate 12.5 mcg 03/02/20 12:42 Fentanyl Citrate Inj (*Crx) 100
[2020-03-05 16:37] LABS: Glucose Point of Care 142 (65-105)
[2020-03-05] MEDS: ALTEPLASE 2 MG VIAL (CATHFLO) IV PUSH (17:13)
[2020-03-05] MEDS: ALBUMIN HUMAN 25% 12.5 GM/50ML 50 ML IVPB (17:14)
--- NOTE | 2020-03-05 17:46 | PCCCNOTE ---
03/05/2020 at 1746 [facility] unable to accept pt d/t no peritoneal services available
[2020-03-05] MEDS: EPOETIN ALFA-EPBX 10,000 UNITS/ML VIAL 10000 UNITS SUB-Q (18:03)
[2020-03-05] MEDS: SIMVASTATIN 10 MG TABLET PO (21:09)
[2020-03-05 21:39] LABS: Glucose Point of Care 217 (65-105)
[2020-03-06] VITALS (10 sets, daily range): BP systolic 140–181; BP diastolic 55–85; PULSE 74–116; RESP 14–22; TEMP 36–37; O2SAT 93–99
[2020-03-06] MEDS: LEVOTHYROXINE SODIUM 75 MCG TABLET PO (05:41)
[2020-03-06] MEDS: allopurinoL 300 MG TABLET PO (08:08)
[2020-03-06] MEDS: ASPIRIN 325 MG TABLET PO (08:09)
[2020-03-06] MEDS: amLODIPine BESYLATE 5 MG TABLET PO (08:09)
[2020-03-06] MEDS: busPIRone HCL 10 MG TABLET PO ×2 (08:10→20:54)
[2020-03-06] MEDS: ERGOCALCIFEROL 50,000 UNIT CAPSULE 50000 UNITS PO (08:10)
[2020-03-06] MEDS: METOPROLOL TARTRATE 50 MG TAB PO ×2 (08:11→21:09)
[2020-03-06] MEDS: MAGNES & ALUM HYD/SIMETH/DIPHENHYD/LIDOCAINE 119 ML MOUTHWASH BY MOUTH ×4 (08:11→21:30)
[2020-03-06] MEDS: MULTIVITAMINS /C LUTEIN (CENTRUM SILVER) TABLET *BKC 1 TAB PO (08:11)
[2020-03-06] MEDS: POTASSIUM CHLORIDE 20 MEQ TABLET.ER 40 MEQ PO ×2 (08:12→19:50)
[2020-03-06] MEDS: SERTRALINE HCL 50 MG TABLET 100 MG PO (08:13)
[2020-03-06 08:15] LABS: Glucose Point of Care 170 (65-105)
[2020-03-06 08:20] LABS: Potassium 3.8 mmol/L (3.4-5.0)
[2020-03-06 08:23] LABS: Albumin Level 2.5 g/dL (3.5-5.1); Anion Gap 9 mmol/L (8-16); Blood Urea Nitrogen 50 mg/dL (7-17); Carbon Dioxide 25 mmol/L (22-30); Chloride 105 mmol/L (98-107); Estimated CRCL calculation 6 ml/min; Estimated Glomerular Filt Rate 5; Glucose 176 mg/dL (65-105); Phosphorus 5.6 mg/dL (2.5-4.5); Sodium 139 mmol/L (137-145)
--- NOTE | 2020-03-06 11:18 | PCNFU ---
Nutrition Follow-Up Complete: Inadequate Oral Intake as related to pneumonia as evidenced by reported weight loss reported and poor po intake. Goal: Meet estimated nutritional needs Patient is progressing towards goal. We will continue current goal. Pt current nutrition is Renal Dialysis diet. Nutrition recommendation: Agree Last recorded weight is 78.1 kg, down from 84.5kg on admit. Bowel Motility:+BM report 03/05 Labs Reviewed:PO4 5.6,Glu 176,BUN 50,GFR 5,Alb 2.5 Meds Noted:Zoloft,MVI, Lopressor,Synthroid,Heparin,Norvasc,Buspar Additional Notes: Nutrition follow up. Patient has been receiving Peritoneal Dialysis. Nursing is reporting patient has a sore mouth. Oral Intake has been about 30-50%. Patient does have diet supplements of Nepro BID providing an additional 425 kcals and 19 gms protein. Monitoring: will monitor every 5 days.
[2020-03-06] MEDS: FERROUS SULFATE 324 MG TABLET PO (11:41)
[2020-03-06 11:58] LABS: Glucose Point of Care 193 (65-105)
--- NOTE | 2020-03-06 12:22 | PM.PNNEP ---
Progress Note: A&P Assessment and Plan (1) End stage renal disease: Code(s): N18.6 - End stage renal disease Status: Chronic Assessment and Plan: continue nightly PD while hospitalized attempted HD today once again unsuccessful due to HD catheter dysfunction Surgery consulted for possible revision/replacement of HD catheter tentative plan is for HD on discharge with outpatient training for peritoneal dialysis patient had been refusing dialysis treatments but seems amenable currently (2) COVID-19: Code(s): U07.1 - COVID-19 Status: Acute Assessment and Plan: remains on isolation supportive care (3) Anemia of chronic disease: Code(s): D63.8 - Anemia in other chronic diseases classified elsewhere Status: Acute Assessment and Plan: due to ESRD and acute illness Epogen SQ 3x/week planned to continue with HD on discharge (4) Pneumonia: Code(s): J18.9 - Pneumonia, unspecified organism Status: Acute Assessment and Plan: on ceftriaxone and azithromycin follow respiratory status (5) Pericardial effusion: Onset Date: ~01/2020 Code(s): I31.3 - Pericardial effusion (noninflammatory) Status: Acute Assessment and Plan: repeat an echocardiogram down the line related to ESRD (?) Will continue to follow Subjective Date/time seen: 03/06/20 12:22 Attempt at dialysis today unsuccessful despite cathflo dwell overnight in HD catheter; tolerated CCPD overnight without any issues; no other apparent issues or problems; depression/mood seems somewhat better. Exam Narrative: Exam Narrative: General: WD/WN female in NAD Heart: normal S1 and S2; no rub Lungs: coarse breath sounds Abdomen: soft, nontender, nondistended, positive bowel sounds Extremities: no cyanosis or clubbing; no edema Skin: no sq nodules Objective Data Vital Signs Vital Signs: Vital Signs Temp Pulse Resp BP Pulse Ox 03/06/20 12:00 36.9 C 82 18 148/55 H 97 03/06/20 10:07 37.0 C 85 18 159/70 H 03/06/20 09:15 80 150/72 H 03/06/20 08:54 84 146/70 H 03/06/20 08:00 36.9 C 88 14 181/61 H 94 03/06/20 04:00 36.8 C 74 18 159/62 H 99 03/05/20 23:52 36.3 C L 71 20 152/56 H 99 12/21/20 21:09 83 03/05/20 20:00 36.4 C 80 20 140/53 L 94 03/05/20 16:00 36.8 C 78 18 135/52 L 97 Intake/Output Intake/Output: Intake & Output 03/03/20 03/04/20 03/05/20 03/06/20 23:59 23:59 23:59 23:59 Intake Total 1460 1160 960 360 Output Total 1638 1 142 1754 Balance -178 1159 818 -1394 Meds/Results Medications: Active Medications Generic Name Dose Route Start Last Admin Trade Name Freq PRN Reason Stop Dose Admin Acetaminophen 650 mg 02/28/20 19:07 03/04/20 22:28 Acetaminophen 325 Mg Tablet PO 650 mg Q6H PRN Administration Mild Pain (1-3) or Fever Allopurinol 300 mg 02/29/20 09:00 03/06/20 08:08 Allopurinol 300 Mg Tablet PO 300 mg DAILY SUKI Administration Amlodipine Besylate 5 mg 02/29/20 09:00 03/06/20 08:09 Amlodipine Besylate 5 Mg Tablet PO 5 mg DAILY SUKI Administration Aspirin 325 mg 02/29/20 09:00 03/06/20 08:09 Aspirin 325 Mg Tablet PO 325 mg DAILY SUKI Administration Buspirone HCl 10 mg 02/28/20 21:00 03/06/20 08:10 Buspirone Hcl 10 Mg Tablet PO 10 mg Q12HR SUKI Administration Dextrose 12.5 gm 03/04/20 16:48 Dextrose 50% 25 Gm/50 Ml Syringe IV PUSH PRN PRN Hypoglycemia Protocol Epoetin Kelechi-epbx 10,000 units 02/29/20 18:00 03/05/20 18:03 Epoetin Kelechi-Epbx 10,000 Units/Ml Vial SUB-Q 10,000 units [id number] [facility] Administration Ergocalciferol 50,000 unit 03/06/20 09:00 03/06/20 08:10 Ergocalciferol 50,000 Unit Capsule PO 50,000 unit Tu@0900 [facility] Administration Fentanyl Citrate 12.5 mcg 03/02/20 12:42 Fentanyl Citrate Inj (*Crx) 100 Mcg/2 Ml Vial IV PUSH Q2H PRN Pain Ra
--- NOTE | 2020-03-06 14:31 | PCPTNOTE ---
Attempted therapy session, Patient refused treatment. Upon walking in Pt pretended to be asleep, once therapist identified themselves Pt stated abruptly What do you want?! . Therapist explained she was there to help Pt get up to the chair, exercise B LE, and walk around the room to build endurance and strength. Pt stated No. I'm not doing it. I am ready to go home. Just let me go home. Then shut her eyes tightly and refused to open them. Will continue per POC.
--- NOTE | 2020-03-06 15:39 | PM.IMPN ---
Progress Note: A&P Assessment and Plan (1) Generalized weakness: Code(s): R53.1 - Weakness Status: Acute Assessment and Plan: PT/ OT to start soon 03/06/20 15:39 74-year-old female with diet-controlled diabetes, chronic kidney disease stage 5, anemia of chronic disease, coronary artery disease, hypertension, hypothyroidism, and several other comorbidities who presented to the emergency department earlier today via EMS from home with complaints of generalized weakness. Pt is covid positive, pt sp tunnel catheter placed under surgery on , pt to and start hemodialysis here then at [place]. From respiratory point of view pt is stable. NO respiratory complaints. on 03/04 patient was clinically stable on 4 L nasal cannula and has not had any fever for last 2 days however patient was quite depressed crying, did not wanted to do HD dialysis, I spoke with the patient's son Dong to talk to the patient and decide about dialysis, on 03/05 early in the morning patient was still quite depressed and was not communicating however later in the afternoon patient hasd decided to have a dialysis, however dialysis catheter was cloggged catheflo was instilled to do HD today on 03/06 however the catheter is still clogged, will consult general surgery to another dialysis catheter and further recommendation to follow, I spoke her son today and gave the update, once patient is able to have HD will plan for discharge, patient be seen by street car mechanic, will monitor patient overnight and further recommendation to follow. (2) Pneumonia: Code(s): J18.9 - Pneumonia, unspecified organism Status: Acute Assessment and Plan: Pt is on iv rocephin and iv zithromax (3) Hypokalemia: Code(s): E87.6 - Hypokalemia Status: Resolved (4) Hypertension: Code(s): I10 - Essential (primary) hypertension Status: Acute (5) Chronic kidney disease, stage 5: Code(s): N18.5 - Chronic kidney disease, stage 5 Status: Chronic Assessment and Plan: Pt to start hemodialysis in [place] soon, sp tunnel catheter placement yesteday, PD while in hospital, thursday DC (6) Anemia of chronic disease: Code(s): D63.8 - Anemia in other chronic diseases classified elsewhere Status: Acute Assessment and Plan: on epogen (7) Diet-controlled type 2 diabetes mellitus: Code(s): E11.9 - Type 2 diabetes mellitus without complications Status: Chronic (8) Hypothyroidism: Code(s): E03.9 - Hypothyroidism, unspecified Status: Chronic Assessment and Plan: on levothyroxine (9) Hyperlipidemia: Code(s): E78.5 - Hyperlipidemia, unspecified Status: Chronic (10) Depression with anxiety: Code(s): F41.8 - Other specified anxiety disorders Status: Chronic Assessment and Plan: Pt is on buspar (11) Crohn's disease: Code(s): K50.90 - Crohn's disease, unspecified, without complications Status: Chronic (12) Suspected COVID-19 virus infection: Code(s): Z20.828 - Contact with and (suspected) exposure to other viral communicable diseases Status: Acute Assessment and Plan: Pt is on isolation, not on oxygen no respiratory complaints, covid stable Subjective Date/time seen: 03/06/20 15:39 74-year-old female with diet-controlled diabetes, chronic kidney disease stage 5, anemia of chronic disease, coronary artery disease, hypertension, hypothyroidism, and several other comorbidities who presented to the emergency department earlier today via EMS from home with complaints of generalized weakness. Pt is covid positive, pt sp tunnel catheter placed under surgery on , pt to and start hemodialysis here then at [place]. From respiratory point of view pt is stable. NO respiratory complaints. on 03/04 patient was clinically stable on 4 L nasal cannula and has not had any fever for last 2 days however patient was quite de
--- NOTE | 2020-03-06 17:16 | PM.PNGS ---
Progress Note: A&P Assessment and Plan (1) Problem with vascular access: Code(s): Z78.9 - Other specified health status Status: Acute Assessment and Plan: Discussed with Dr. Howard. Will try to revise or replace catheter in OR tomorrow under anesthesia. If cannot replace at IJ position, may need to place new catheter in subclavian position. (2) End stage renal disease: Code(s): N18.6 - End stage renal disease Status: Chronic (3) COVID-19: Code(s): U07.1 - COVID-19 Status: Acute Subjective Subjective Date/Time Seen: 03/06/20 17:16 Patient reports: other (patient confused; tunneled CVC for dialysis not able to flush. Asked to revise or replace.) Exam Const: General: confusion Nutritional Appearance: average body habitus Orientation/consciousness: confusion Neck: Neck: other (right IJ CVC normal appearance to exam) Objective Data Vital Signs Vital Signs: Vital Signs - 24 hr 03/05/20 20:00 03/05/20 21:09 03/05/20 23:52 Temperature 36.4 C 36.3 C L Pulse Rate 80 83 71 Respiratory Rate 20 20 Blood Pressure 140/53 L 152/56 H Pulse Oximetry 94 99 03/06/20 04:00 03/06/20 08:00 03/06/20 08:54 Temperature 36.8 C 36.9 C Pulse Rate 74 88 84 Respiratory Rate 18 14 Blood Pressure 159/62 H 181/61 H 146/70 H Pulse Oximetry 99 94 03/06/20 09:15 03/06/20 10:07 03/06/20 12:00 Temperature 37.0 C 36.9 C Pulse Rate 80 85 82 Respiratory Rate 18 18 Blood Pressure 150/72 H 159/70 H 148/55 H Pulse Oximetry 97 03/06/20 16:00 Temperature 36.6 C Pulse Rate 90 Respiratory Rate 14 Blood Pressure 152/75 H Pulse Oximetry 93 Intake/Output Intake/Output: Intake & Output 03/03/20 03/04/20 03/05/20 03/06/20 23:59 23:59 23:59 23:59 Intake Total 1460 1160 960 360 Output Total 1638 1 142 1754 Balance -178 1159 818 -1394 Meds/Results Medications: Active Medications Generic Name Dose Route Start Last Admin Trade Name Freq PRN Reason Stop Dose Admin Acetaminophen 650 mg 02/28/20 19:07 03/04/20 22:28 Acetaminophen 325 Mg Tablet PO 650 mg Q6H PRN Administration Mild Pain (1-3) or Fever Allopurinol 300 mg 02/29/20 09:00 03/06/20 08:08 Allopurinol 300 Mg Tablet PO 300 mg DAILY SUKI Administration Amlodipine Besylate 5 mg 02/29/20 09:00 03/06/20 08:09 Amlodipine Besylate 5 Mg Tablet PO 5 mg DAILY SUKI Administration Aspirin 325 mg 02/29/20 09:00 03/06/20 08:09 Aspirin 325 Mg Tablet PO 325 mg DAILY SUKI Administration Buspirone HCl 10 mg 02/28/20 21:00 03/06/20 08:10 Buspirone Hcl 10 Mg Tablet PO 10 mg Q12HR SUKI Administration Dextrose 12.5 gm 03/04/20 16:48 Dextrose 50% 25 Gm/50 Ml Syringe IV PUSH PRN PRN Hypoglycemia Protocol Epoetin Kelechi-epbx 10,000 units 02/29/20 18:00 03/05/20 18:03 Epoetin Kelechi-Epbx 10,000 Units/Ml Vial SUB-Q 10,000 units [id number]@1800 [facility] Administration Ergocalciferol 50,000 unit 03/06/20 09:00 03/06/20 08:10 Ergocalciferol 50,000 Unit Capsule PO 50,000 unit Tu@0900 [facility] Administration Fentanyl Citrate 12.5 mcg 03/02/20 12:42 Fentanyl Citrate Inj (*Crx) 100 Mcg/2 Ml Vial IV PUSH Q2H PRN Pain Rated 4-6 Fentanyl Citrate 25 mcg 03/02/20 12:42 Fentanyl Citrate Inj (*Crx) 100 Mcg/2 Ml Vial IV PUSH Q2H PRN Pain Rated 7-10 Ferrous Sulfate 324 mg 02/29/20 08:00 03/06/20 11:41 Ferrous Sulfate 324 Mg Tablet PO 324 mg DAILY@0800 [facility] Administration Glucagon 1 mg 03/04/20 16:48 Glucagon For Inj 1 Mg Vial IM PRN PRN Hypoglycemia Protocol Glucose 15 gm 03/04/20 16:48 Glucose Oral Gel 15 Gm Of Glucse In 37.5 Gm Tube PO PRN PRN Hypoglycemia Protocol Heparin Sodium (Porcine) 5,000 units 03/01/20 09:00 03/06/20 11:42 Heparin Sodium 5,000 Units/Ml Vial SUB-Q Not Given Q12HR [facility] Ceftriaxone Sodium/Dextrose 1 gm in 50 mls @ 100 mls/hr 02/28/20 17:00
[2020-03-06 17:27] LABS: Glucose Point of Care 158 (65-105)
[2020-03-06] MEDS: SIMVASTATIN 10 MG TABLET PO (20:54)
[2020-03-06 21:44] LABS: Glucose Point of Care 160 (65-105)
[2020-03-07] VITALS (27 sets, daily range): BP systolic 84–159; BP diastolic 43–107; PULSE 65–81; RESP 16–22; TEMP 36.1–37; O2SAT 80–99
[2020-03-07] MEDS: MAGNES & ALUM HYD/SIMETH/DIPHENHYD/LIDOCAINE 119 ML MOUTHWASH BY MOUTH ×3 (01:00→12:14)
--- NOTE | 2020-03-07 07:04 | WPDHPUPDATE1 ---
History and Physical Update Update Date/Time: 03/07/20 07:04 History and Physical has been reviewed, including an updated exam of the patient. There are NO changes in the patient's condition. Risks, benefits, and alternatives have been discussed and questions answered. Patient agrees to proceed with procedure.
[2020-03-07 07:10] LABS: Albumin Level 2.5 g/dL (3.5-5.1); Anion Gap 10 mmol/L (8-16); Blood Urea Nitrogen 48 mg/dL (7-17); Calcium 8.4 mg/dL (8.4-10.2); Carbon Dioxide 25 mmol/L (22-30); Chloride 105 mmol/L (98-107); Estimated CRCL calculation 5 ml/min; Estimated Glomerular Filt Rate 5; Glucose 200 mg/dL (65-105); Phosphorus 4.8 mg/dL (2.5-4.5); Potassium 4.4 mmol/L (3.4-5.0); Sodium 140 mmol/L (137-145)
--- NOTE | 2020-03-07 07:45 | WPDANESEFPP ---
Anes - Eval Final PreProcedure Day of Procedure 03/07/20 07:45 Patient weight: overweight Heart: regular rate and rhythm Lungs: decreased breath sounds Airway: Mallampati scale class II Neurological: alert and oriented Last oral intake: >/= 8 hours ASA classification: IV Emergent: no Anesthetic plan: proceed Anesthesia type and monitoring: general GIVS and LMA and standard monitoring Informed Consent: The patient's anesthetic plan and its attendant risks and benefits were discussed with the patient/family/POA. Questions were solicited and answers provided to the satisfaction of the patient/family/POA.
[2020-03-07 07:47] LABS: Glucose Point of Care 174 (65-105)
[2020-03-07 08:35] LABS: Hematocrit 30.8 % (37.0-47.0); Hemoglobin 9.3 g/dL (12.0-15.0); Mean Corpuscular HGB Conc 30.2 g/dl (32-36); Mean Corpuscular Hemoglobin 27.4 pg (26-34); Mean Corpuscular Volume 90.9 fl (80-100); Mean Platelet Volume 9.6 fl (7.4-10.4); Platelet Count Result 302 k/mm3 (150-375); Red Blood Count 3.39 M/mm3 (4.2-5.4); Red Cell Distribution Width 15.1 % (11.5-14.5); White Blood Count 11.2 K/mm3 (4.5-10.0)
[2020-03-07] MEDS: ceFAZolin SODIUM 1 GM VIAL 2 GM IV PUSH (09:49)
[2020-03-07] MEDS: HEPARIN SODIUM 5,000 UNITS/ML VIAL 10000 UNITS IV PUSH (10:01)
[2020-03-07] MEDS: LIDO 1%/EPINEPHRINE 1:100,000 20 ML VIAL INFILTRATE (10:03)
[2020-03-07] MEDS: HEPARIN SODIUM 5,000 UNITS/ML VIAL 5000 UNITS IRRIGATION (10:11)
[2020-03-07] MEDS: SODIUM CHLORIDE 0.9% IV 1,000 ML 30 ML IV CONT (10:15)
--- NOTE | 2020-03-07 10:55 | PM.PROC ---
Procedure Note - Detailed Date of procedure: 03/07/20 Pre-op diagnosis: ESRD, nonfunctioning dialysis vascular access End-stage renal disease, this function dialysis vascular access Post-op diagnosis: same Procedure performed: With removal right internal jugular tunneled central venous catheter, replacement right internal jugular tunneled Dura Flow central venous catheter under fluoroscopy Description of procedure: The patient was taken to surgery and induced into general anesthesia per LMA. The right-sided tunneled central venous catheter was initially left in place and the entire right neck and right upper chest for were prepped and draped. COVID precautions were also taken throughout the case. I initially used heparinized saline and checked each port. Both ports were patent but had sluggish return. I then infiltrated local under the top to right neck incisions as well as the next incision down. Each of these incisions was opened and the 2 incisions at the top were connected by opening the skin between the 2. I exposed the Dura Flow catheter as it curved into the internal jugular vein via the top to incisions. There was a definite kink. I tried multiple times to move or manipulate the catheter to alleviate the kink but was unable to do so. I decided it would be best to simply replace it. I then cut the catheter at this location and passed a guidewire through the distal tip of the catheter into the superior vena cava. The position of the guidewire was verified by fluoroscopy. The distal catheter was then removed. I then cut the suture to the proximal catheter as it exited the skin. I removed sutures from the exit site of the catheter. I then used a curved clamp to open the exit site. I also created a bit larger tunnel at the lower most open incision. The new Dura Flow catheter was then tunneled from the exit site of the existing catheter up and out the incision at the apex of the neck. I then removed the old Dura Flow catheter completely. After pulling the new catheter up to its entire length I then began to use the dilators to pass the catheter over the guidewire. The serial dilators were passed over the guidewire using fluoroscopy. Both passed easily. I then passed the dilator with the sleeve over the guidewire. It passed easily as well and its position was noted by fluoroscopy. I then removed the guidewire and the dilator and. The Dura Flow catheter tip was passed through the sleeve and down into the superior vena cava. The sleeve was then removed. This catheter also had a tendency to kink. I enlarged the lateral aspect of the tract. I also flattened the tissue at the entrance to the internal jugular vein. After some additional manipulation, the catheter passed directly into the internal jugular vein with no kinks whatsoever. This was confirmed by oblique views with C-arm fluoroscopy. AP views with C-arm fluoroscopy showed the tip to be in the distal SVC right atrial junction and no kinks in the catheter either. Both ports aspirated blood well and flushed easily with heparin. I then irrigated the 2 counter incisions that had been opened. The uppermost incisions were closed in layers. The deeper tissues were closed with 3 0 Vicryl interrupted suture. Subcuticular interrupted 4 O Vicryl skin stitches were placed. The 2nd counter incision that had been opened was closed with subcuticular 4 O Vicryl suture as well. I closed the exit site incision with subcuticular 4 O Vicryl skin suture. The catheter was sutured to the skin with 3 0 nylon. Final flush was passed through both ports of the catheter as well. The incisions were dressed with Exofin surgical adhesive. The patient was awakened in the operating room and then taken directly back to her room using standard COVID-19 precautions. Estimated blood loss 30 cc. Sponge and needle counts were correct x2. Surgeon: Marques Waterman MD Attendance Officer: YARELIS Chavez Estimated blood loss (mL):
[2020-03-07 12:06] LABS: Glucose Point of Care 158 (65-105)
[2020-03-07] MEDS: MULTIVITAMINS /C LUTEIN (CENTRUM SILVER) TABLET *BKC 1 TAB PO (12:11)
[2020-03-07] MEDS: METOPROLOL TARTRATE 50 MG TAB PO ×2 (12:12→21:04)
[2020-03-07] MEDS: POTASSIUM CHLORIDE 20 MEQ TABLET.ER 40 MEQ PO ×2 (12:12→17:07)
[2020-03-07] MEDS: allopurinoL 300 MG TABLET PO (12:13)
[2020-03-07] MEDS: amLODIPine BESYLATE 5 MG TABLET PO (12:13)
[2020-03-07] MEDS: FERROUS SULFATE 324 MG TABLET PO (12:13)
[2020-03-07] MEDS: busPIRone HCL 10 MG TABLET PO ×2 (12:13→21:03)
[2020-03-07] MEDS: ASPIRIN 325 MG TABLET PO (12:13)
--- NOTE | 2020-03-07 12:13 | PCPTNOTE ---
Patient out of room for procedure this A.M., unable to be seen for PT. Pt will continue to follow per plan of care.
[2020-03-07] MEDS: SERTRALINE HCL 50 MG TABLET 100 MG PO (12:14)
--- NOTE | 2020-03-07 14:29 | PM.PNNEP ---
Progress Note: A&P Assessment and Plan (1) End stage renal disease: Code(s): N18.6 - End stage renal disease Status: Chronic Assessment and Plan: Getting hemodialysis now. Catheter is working well. Will hold off on PD tonight but then continue PD while hospitalized. tentative plan is for HD at [facility]. Then moved to [place] and trained for peritoneal dialysis while on HD. (2) COVID-19: Code(s): U07.1 - COVID-19 Status: Acute Assessment and Plan: remains on isolation supportive care (3) Anemia of chronic disease: Code(s): D63.8 - Anemia in other chronic diseases classified elsewhere Status: Acute Assessment and Plan: due to ESRD and acute illness Epogen SQ 3x/week planned to continue with HD on discharge (4) Pneumonia: Code(s): J18.9 - Pneumonia, unspecified organism Status: Acute Assessment and Plan: on ceftriaxone and azithromycin follow respiratory status (5) Pericardial effusion: Onset Date: ~01/2020 Code(s): I31.3 - Pericardial effusion (noninflammatory) Status: Acute Assessment and Plan: repeat an echocardiogram down the line related to ESRD (?) Subjective Date/time seen: 03/07/20 14:29 Interval history: pt is lying in bed comfortably. feels fine. no sob. very anxious. Upset she can't see her PET and her 2 sons. On HD tariq it well. seen at 2:20 p.m. Review of Systems Cardiovascular: Cardiovascular: Reports no additional cardiovascular complaints Respiratory: Respiratory: Reports no additional respiratory complaints Gastrointestinal: Gastrointestinal: Reports no additional gastrointestinal complaints Genitourinary: Genitourinary: Reports no additional female genitourinary complaints Exam Narrative: Exam Narrative: General: WD/WN female in NAD Heart: normal S1 and S2; no rub Lungs: coarse breath sounds Abdomen: soft, nontender, nondistended, positive bowel sounds Extremities: no cyanosis or clubbing; no edema Skin: no sq nodules Objective Data Vital Signs Vital Signs: Vital Signs - 24 hr 03/06/20 16:00 03/06/20 20:00 03/06/20 21:09 Temperature 36.6 C 36.9 C Pulse Rate 90 116 H 116 H Respiratory Rate 14 22 H Blood Pressure 152/75 H 140/85 Pulse Oximetry 93 98 03/07/20 00:00 03/07/20 04:00 03/07/20 08:00 Temperature 36.4 C L 36.4 C 36.2 C L Pulse Rate 80 70 68 Respiratory Rate 20 20 20 Blood Pressure 153/73 H 144/61 H 149/62 H Pulse Oximetry 99 98 98 03/07/20 10:55 03/07/20 11:11 03/07/20 11:25 Temperature 36.1 C L Pulse Rate 75 69 72 Respiratory Rate 20 20 20 Blood Pressure 147/107 H 147/69 H 132/61 Pulse Oximetry 92 94 93 03/07/20 11:40 03/07/20 12:00 03/07/20 12:15 Temperature 36.1 C L 36.1 C L Pulse Rate 68 71 72 Respiratory Rate 20 16 20 Blood Pressure 141/65 H 134/52 L 140/58 L Pulse Oximetry 93 94 92 03/07/20 12:25 03/07/20 12:26 Temperature Pulse Rate Respiratory Rate Blood Pressure Pulse Oximetry 80 L 92 Intake/Output Intake/Output: Intake & Output 03/04/20 03/05/20 03/06/20 03/07/20 23:59 23:59 23:59 23:59 Intake Total 3042 015 8672 700 Output Total 1 462 5384 Balance 1155 818 -829 700 Meds/Results Medications: Active Medications Generic Name Dose Route Start Last Admin Trade Name Freq PRN Reason Stop Dose Admin Acetaminophen 650 mg 02/28/20 19:07 03/04/20 22:28 Acetaminophen 325 Mg Tablet PO 650 mg Q6H PRN Administration Mild Pain (1-3) or Fever Allopurinol 300 mg 02/29/20 09:00 03/07/20 12:13 Allopurinol 300 Mg Tablet PO 300 mg DAILY SUKI Administration Amlodipine Besylate 5 mg 02/29/20 09:00 03/07/20 12:13 Amlodipine Besylate 5 Mg Tablet PO 5 mg DAILY SUKI Administration Aspirin 325 mg 02/29/20 09:00 03/07/20 12:13 Aspirin 325 Mg Tablet PO 325 mg DAILY SUKI Administration Buspirone HCl 10 mg 02/28/20
--- NOTE | 2020-03-07 14:50 | PCPTNOTE ---
Patient unable to participate in PT this afternoon due to patient receiving dialysis. PT will continue to follow per plan of care.
--- NOTE | 2020-03-07 14:54 | PM.IMPN ---
Progress Note: A&P Assessment and Plan (1) Generalized weakness: Code(s): R53.1 - Weakness Status: Acute Assessment and Plan: PT/ OT to start soon 03/07/20 14:54 74-year-old female with diet-controlled diabetes, chronic kidney disease stage 5, anemia of chronic disease, coronary artery disease, hypertension, hypothyroidism, and several other comorbidities who presented to the emergency department earlier today via EMS from home with complaints of generalized weakness. Pt is covid positive, pt sp tunnel catheter placed under surgery on , pt to and start hemodialysis here then at [place]. From respiratory point of view pt is stable. NO respiratory complaints. on 03/04 patient was clinically stable on 4 L nasal cannula and has not had any fever for last 2 days however patient was quite depressed crying, did not wanted to do HD dialysis, I spoke with the patient's son Dong to talk to the patient and decide about dialysis, on 03/05 early in the morning patient was still quite depressed and was not communicating however later in the afternoon patient had decided to have a dialysis, however dialysis catheter was cloggged catheflo was instilled to do HD, on 03/06 however the catheter was still clogged, consulted general surgery today you patient was taken to the OR today old catheter was not repairable and new catheter was placed, patient will have HD dialysis today will be trained to have PD as an outpatient. Patient is depressed and wants to go home. (2) Pneumonia: Code(s): J18.9 - Pneumonia, unspecified organism Status: Acute Assessment and Plan: Pt is on iv rocephin and iv zithromax (3) Hypokalemia: Code(s): E87.6 - Hypokalemia Status: Resolved (4) Hypertension: Code(s): I10 - Essential (primary) hypertension Status: Acute (5) Chronic kidney disease, stage 5: Code(s): N18.5 - Chronic kidney disease, stage 5 Status: Chronic Assessment and Plan: Pt to start hemodialysis in [place] soon, sp tunnel catheter placement yesteday, PD while in hospital, thursday DC (6) Anemia of chronic disease: Code(s): D63.8 - Anemia in other chronic diseases classified elsewhere Status: Acute Assessment and Plan: on epogen (7) Diet-controlled type 2 diabetes mellitus: Code(s): E11.9 - Type 2 diabetes mellitus without complications Status: Chronic (8) Hypothyroidism: Code(s): E03.9 - Hypothyroidism, unspecified Status: Chronic Assessment and Plan: on levothyroxine (9) Hyperlipidemia: Code(s): E78.5 - Hyperlipidemia, unspecified Status: Chronic (10) Depression with anxiety: Code(s): F41.8 - Other specified anxiety disorders Status: Chronic Assessment and Plan: Pt is on buspar (11) Crohn's disease: Code(s): K50.90 - Crohn's disease, unspecified, without complications Status: Chronic (12) Suspected COVID-19 virus infection: Code(s): Z20.828 - Contact with and (suspected) exposure to other viral communicable diseases Status: Acute Assessment and Plan: Pt is on isolation, not on oxygen no respiratory complaints, covid stable Subjective Date/time seen: 03/07/20 14:54 74-year-old female with diet-controlled diabetes, chronic kidney disease stage 5, anemia of chronic disease, coronary artery disease, hypertension, hypothyroidism, and several other comorbidities who presented to the emergency department earlier today via EMS from home with complaints of generalized weakness. Pt is covid positive, pt sp tunnel catheter placed under surgery on , pt to and start hemodialysis here then at [place]. From respiratory point of view pt is stable. NO respiratory complaints. on 03/04 patient was clinically stable on 4 L nasal cannula and has not had any fever for last 2 days however patient was quite depressed crying, did not wanted to do HD dialysi
[2020-03-07] MEDS: oxyCODONE/ACETAMINOPHEN (*CRX) 5-325 MG TABLET 1 TABLET PO (17:06)
[2020-03-07] MEDS: EPOETIN ALFA-EPBX 10,000 UNITS/ML VIAL 10000 UNITS SUB-Q (17:08)
[2020-03-07] MEDS: INSULIN ASPART (*BKC) 100 UNITS/ML SUB-Q (18:20)
[2020-03-07 18:23] LABS: Glucose Point of Care 260 (65-105)
[2020-03-07] MEDS: HEPARIN SODIUM 5,000 UNITS/ML VIAL 5000 UNITS SUB-Q (21:02)
[2020-03-07] MEDS: SIMVASTATIN 10 MG TABLET PO (21:07)
[2020-03-07 21:51] LABS: Glucose Point of Care 182 (65-105)
[2020-03-08] VITALS (13 sets, daily range): BP systolic 101–166; BP diastolic 49–74; PULSE 68–78; RESP 20–22; TEMP 36.4–36.6; O2SAT 92–98
[2020-03-08] MEDS: MAGNES & ALUM HYD/SIMETH/DIPHENHYD/LIDOCAINE 119 ML MOUTHWASH BY MOUTH ×6 (00:19→20:46)
[2020-03-08] MEDS: LEVOTHYROXINE SODIUM 75 MCG TABLET PO (05:53)
[2020-03-08 07:12] LABS: Albumin Level 2.3 g/dL (3.5-5.1); Anion Gap 7 mmol/L (8-16); Blood Urea Nitrogen 36 mg/dL (7-17); Calcium 7.8 mg/dL (8.4-10.2); Carbon Dioxide 27 mmol/L (22-30); Chloride 104 mmol/L (98-107); Estimated CRCL calculation 8 ml/min; Estimated Glomerular Filt Rate 8; Glucose 135 mg/dL (65-105); Phosphorus 3.7 mg/dL (2.5-4.5); Potassium 5.5 mmol/L (3.4-5.0); Sodium 138 mmol/L (137-145)
[2020-03-08] MEDS: amLODIPine BESYLATE 5 MG TABLET PO (08:46)
[2020-03-08] MEDS: allopurinoL 300 MG TABLET PO (08:46)
[2020-03-08] MEDS: FERROUS SULFATE 324 MG TABLET PO (08:46)
[2020-03-08] MEDS: busPIRone HCL 10 MG TABLET PO ×2 (08:47→20:46)
[2020-03-08] MEDS: ASPIRIN 325 MG TABLET PO (08:47)
[2020-03-08] MEDS: METOPROLOL TARTRATE 50 MG TAB PO ×2 (08:49→20:46)
[2020-03-08] MEDS: MULTIVITAMINS /C LUTEIN (CENTRUM SILVER) TABLET *BKC 1 TAB PO (08:50)
[2020-03-08] MEDS: SERTRALINE HCL 50 MG TABLET 100 MG PO (08:52)
[2020-03-08] MEDS: POTASSIUM CHLORIDE 20 MEQ TABLET.ER 40 MEQ PO (08:52)
[2020-03-08] MEDS: HEPARIN SODIUM 5,000 UNITS/ML VIAL 5000 UNITS SUB-Q ×2 (08:53→20:46)
[2020-03-08] MEDS: oxyCODONE/ACETAMINOPHEN (*CRX) 5-325 MG TABLET 1 TABLET PO (08:59)
[2020-03-08 09:34] LABS: Glucose Point of Care 123 (65-105)
[2020-03-08 12:19] LABS: Glucose Point of Care 138 (65-105)
--- NOTE | 2020-03-08 14:15 | PM.IMPN ---
Progress Note: A&P Assessment and Plan (1) Generalized weakness: Code(s): R53.1 - Weakness Status: Acute Assessment and Plan: PT/ OT to start soon 03/08/20 14:15 74-year-old female with diet-controlled diabetes, chronic kidney disease stage 5, anemia of chronic disease, coronary artery disease, hypertension, hypothyroidism, and several other comorbidities who presented to the emergency department earlier today via EMS from home with complaints of generalized weakness. Pt is covid positive, pt sp tunnel catheter placed under surgery on , pt to and start hemodialysis here then at [place]. From respiratory point of view pt is stable. NO respiratory complaints. on 03/04 patient was clinically stable on 4 L nasal cannula and has not had any fever for last 2 days however patient was quite depressed crying, did not wanted to do HD dialysis, I spoke with the patient's son Dong to talk to the patient and decide about dialysis, on 03/05 early in the morning patient was still quite depressed and was not communicating however later in the afternoon patient had decided to have a dialysis, however dialysis catheter was cloggged catheflo was instilled to do HD, on 03/06 however the catheter was still clogged, consulted general surgery on 03/07 patient was taken to the OR and old catheter was not repairable and new catheter was placed, and patient had hemodialysis, patient will continue home on dialysis while in the hospital, will need to be trained to have PD as an outpatient. Patient is depressed and wants to go home however today patient is requiring 15 L of oxygen patient does not have any fever patient will be seen by Nephrology and further recommendation to follow. (2) Pneumonia: Code(s): J18.9 - Pneumonia, unspecified organism Status: Acute Assessment and Plan: Pt is on iv rocephin and iv zithromax (3) Hypokalemia: Code(s): E87.6 - Hypokalemia Status: Resolved (4) Hypertension: Code(s): I10 - Essential (primary) hypertension Status: Acute (5) Chronic kidney disease, stage 5: Code(s): N18.5 - Chronic kidney disease, stage 5 Status: Chronic Assessment and Plan: Pt to start hemodialysis in [place] soon, sp tunnel catheter placement yesteday, PD while in hospital, thursday DC (6) Anemia of chronic disease: Code(s): D63.8 - Anemia in other chronic diseases classified elsewhere Status: Acute Assessment and Plan: on epogen (7) Diet-controlled type 2 diabetes mellitus: Code(s): E11.9 - Type 2 diabetes mellitus without complications Status: Chronic (8) Hypothyroidism: Code(s): E03.9 - Hypothyroidism, unspecified Status: Chronic Assessment and Plan: on levothyroxine (9) Hyperlipidemia: Code(s): E78.5 - Hyperlipidemia, unspecified Status: Chronic (10) Depression with anxiety: Code(s): F41.8 - Other specified anxiety disorders Status: Chronic Assessment and Plan: Pt is on buspar (11) Crohn's disease: Code(s): K50.90 - Crohn's disease, unspecified, without complications Status: Chronic (12) Suspected COVID-19 virus infection: Code(s): Z20.828 - Contact with and (suspected) exposure to other viral communicable diseases Status: Acute Assessment and Plan: Pt is on isolation, not on oxygen no respiratory complaints, covid stable Subjective Date/time seen: 03/08/20 14:15 74-year-old female with diet-controlled diabetes, chronic kidney disease stage 5, anemia of chronic disease, coronary artery disease, hypertension, hypothyroidism, and several other comorbidities who presented to the emergency department earlier today via EMS from home with complaints of generalized weakness. Pt is covid positive, pt sp tunnel catheter placed under surgery on , pt to and start hemodialysis here then at [place]. From respiratory point of view pt is
[2020-03-08 17:53] LABS: Glucose Point of Care 139 (65-105)
[2020-03-08] MEDS: SIMVASTATIN 10 MG TABLET PO (20:46)
[2020-03-08 21:08] LABS: Glucose Point of Care 181 (65-105)
[2020-03-09] VITALS (14 sets, daily range): BP systolic 117–144; BP diastolic 48–63; PULSE 66–92; RESP 15–20; TEMP 36.4–37.3; O2SAT 91–97
[2020-03-09] MEDS: MAGNES & ALUM HYD/SIMETH/DIPHENHYD/LIDOCAINE 119 ML MOUTHWASH BY MOUTH ×5 (00:59→21:02)
[2020-03-09] MEDS: LEVOTHYROXINE SODIUM 75 MCG TABLET PO (05:45)
[2020-03-09] MEDS: POTASSIUM CHLORIDE 20 MEQ TABLET.ER 40 MEQ PO (08:50)
[2020-03-09] MEDS: ASPIRIN 325 MG TABLET PO (08:50)
[2020-03-09] MEDS: METOPROLOL TARTRATE 50 MG TAB PO ×2 (08:50→21:02)
[2020-03-09 08:51] LABS: Albumin Level 2.3 g/dL (3.5-5.1); Anion Gap 4 mmol/L (8-16); Blood Urea Nitrogen 36 mg/dL (7-17); Calcium 8.2 mg/dL (8.4-10.2); Carbon Dioxide 32 mmol/L (22-30); Chloride 102 mmol/L (98-107); Estimated CRCL calculation 8 ml/min; Estimated Glomerular Filt Rate 7; Glucose 205 mg/dL (65-105); Phosphorus 3.2 mg/dL (2.5-4.5); Potassium 4.4 mmol/L (3.4-5.0); Sodium 138 mmol/L (137-145)
[2020-03-09] MEDS: SERTRALINE HCL 50 MG TABLET 100 MG PO (08:51)
[2020-03-09] MEDS: allopurinoL 300 MG TABLET PO (08:52)
[2020-03-09] MEDS: FERROUS SULFATE 324 MG TABLET PO (08:52)
[2020-03-09] MEDS: amLODIPine BESYLATE 5 MG TABLET PO (08:52)
[2020-03-09] MEDS: busPIRone HCL 10 MG TABLET PO ×2 (08:52→21:02)
[2020-03-09] MEDS: MULTIVITAMINS /C LUTEIN (CENTRUM SILVER) TABLET *BKC 1 TAB PO (08:52)
[2020-03-09] MEDS: HEPARIN SODIUM 5,000 UNITS/ML VIAL 5000 UNITS SUB-Q ×2 (08:55→21:02)
[2020-03-09 08:59] LABS: Glucose Point of Care 128 (65-105)
--- NOTE | 2020-03-09 09:20 | PM.PNNEP ---
Progress Note: A&P Assessment and Plan (1) End stage renal disease: Code(s): N18.6 - End stage renal disease Status: Chronic Assessment and Plan: Getting hemodialysis now. Catheter is working well. Will hold off on PD tonight but then continue PD while hospitalized. tentative plan is for HD at [facility]. Then moved to [place] and trained for peritoneal dialysis while on HD. (2) COVID-19: Code(s): U07.1 - COVID-19 Status: Acute Assessment and Plan: remains on isolation supportive care (3) Anemia of chronic disease: Code(s): D63.8 - Anemia in other chronic diseases classified elsewhere Status: Acute Assessment and Plan: due to ESRD and acute illness Epogen SQ 3x/week planned to continue with HD on discharge (4) Pneumonia: Code(s): J18.9 - Pneumonia, unspecified organism Status: Acute Assessment and Plan: on ceftriaxone and azithromycin Oxygenation is worse. Will recheck a chest x-ray. Will try to take a little more fluid off tonight. (5) Pericardial effusion: Onset Date: ~01/2020 Code(s): I31.3 - Pericardial effusion (noninflammatory) Status: Acute Assessment and Plan: repeat an echocardiogram down the line related to ESRD (?) (6) Hypertension: Code(s): I10 - Essential (primary) hypertension Status: Acute Assessment and Plan: Well controlled. Since I am taking extra fluid off, I will stop her amlodipine. Subjective Date/time seen: 03/09/20 09:20 Interval history: pt is lying in bed comfortably. feels fine. no sob. very anxious. Upset she can't see her PET and her 2 sons. On HD tariq it well. seen at 9:15am Exam Narrative: Exam Narrative: General: WD/WN female in NAD Heart: normal S1 and S2; no rub Lungs: coarse breath sounds Abdomen: soft, nontender, nondistended, positive bowel sounds Extremities: no cyanosis or clubbing; no edema Skin: no sq nodules Objective Data Vital Signs Vital Signs: Vital Signs - 24 hr 03/08/20 12:03 03/08/20 12:45 03/08/20 15:55 Temperature 36.4 C L Pulse Rate 70 Respiratory Rate 20 Blood Pressure 101/51 L Pulse Oximetry 96 95 95 03/08/20 15:56 03/08/20 16:00 03/08/20 20:00 Temperature 36.6 C 36.6 C Pulse Rate 74 74 Respiratory Rate 20 20 Blood Pressure 139/49 L 141/51 H Pulse Oximetry 93 95 93 03/08/20 20:40 03/08/20 20:46 03/08/20 23:45 Temperature Pulse Rate 74 Respiratory Rate 20 Blood Pressure Pulse Oximetry 93 95 03/09/20 00:00 03/09/20 04:00 03/09/20 05:00 Temperature 36.6 C 36.4 C Pulse Rate 67 72 Respiratory Rate 20 20 20 Blood Pressure 137/61 123/63 Pulse Oximetry 96 96 96 03/09/20 08:00 03/09/20 08:50 Temperature 36.6 C Pulse Rate 66 66 Respiratory Rate 16 Blood Pressure 144/48 H Pulse Oximetry 97 Intake/Output Intake/Output: Intake & Output 03/06/20 03/07/20 03/08/20 03/09/20 23:59 23:59 23:59 23:59 Intake Total 1210 1250 990 200 Output Total 1754 1252 0 0 Balance -544 -2 990 200 Meds/Results Medications: Active Medications Generic Name Dose Route Start Last Admin Trade Name Freq PRN Reason Stop Dose Admin Acetaminophen 650 mg 02/28/20 19:07 03/04/20 22:28 Acetaminophen 325 Mg Tablet PO 650 mg Q6H PRN Administration Mild Pain (1-3) or Fever Allopurinol 300 mg 02/29/20 09:00 03/09/20 08:52 Allopurinol 300 Mg Tablet PO 300 mg DAILY SUKI Administration Aspirin 325 mg 02/29/20 09:00 03/09/20 08:50 Aspirin 325 Mg Tablet PO 325 mg DAILY SUKI Administration Buspirone HCl 10 mg 02/28/20 21:00 03/09/20 08:52 Buspirone Hcl 10 Mg Tablet PO 10 mg Q12HR SUKI Administration Dextrose 12.5 gm 03/04/20 16:48 Dextrose 50% 25 Gm/50 Ml Syringe IV PUSH PRN PRN Hypoglycemia Protocol Epoetin Kelechi-epbx 10,000 units 02/29/20 18:00 03/07/20 17:08 Epoetin
[2020-03-09 12:15] LABS: Glucose Point of Care 120 (65-105)
--- NOTE | 2020-03-09 13:29 | PM.IMPN ---
Progress Note: A&P Assessment and Plan (1) Generalized weakness: Code(s): R53.1 - Weakness Status: Acute Assessment and Plan: PT/ OT to start soon 03/09/20 13:29 74-year-old female with diet-controlled diabetes, chronic kidney disease stage 5, anemia of chronic disease, coronary artery disease, hypertension, hypothyroidism, and several other comorbidities who presented to the emergency department earlier today via EMS from home with complaints of generalized weakness. Pt is covid positive, pt sp tunnel catheter placed under surgery on , pt to and start hemodialysis here then at [place]. From respiratory point of view pt is stable. NO respiratory complaints. on 03/04 patient was clinically stable on 4 L nasal cannula and has not had any fever for last 2 days however patient was quite depressed crying, did not wanted to do HD dialysis, I spoke with the patient's son Dong to talk to the patient and decide about dialysis, on 03/05 early in the morning patient was still quite depressed and was not communicating however later in the afternoon patient had decided to have a dialysis, however dialysis catheter was clogged Cathflo was instilled to do HD, on 03/06 however the catheter was still clogged, consulted general surgery on 03/07 patient was taken to the OR and old catheter was not repairable and new catheter was placed, and patient had hemodialysis, patient will continue HD while in the hospital, will need to be trained to have PD as an outpatient. Patient is depressed and wants to go home however today patient is requiring less than 15 L of oxygen and her clinical symptoms are improving patient does not have any fever patient will be seen by Nephrology and will have HD tomorrow, and further recommendation to follow. (2) Pneumonia: Code(s): J18.9 - Pneumonia, unspecified organism Status: Acute Assessment and Plan: Pt is on iv rocephin and iv zithromax (3) Hypokalemia: Code(s): E87.6 - Hypokalemia Status: Resolved (4) Hypertension: Code(s): I10 - Essential (primary) hypertension Status: Acute (5) Chronic kidney disease, stage 5: Code(s): N18.5 - Chronic kidney disease, stage 5 Status: Chronic Assessment and Plan: Pt to start hemodialysis in [place] soon, sp tunnel catheter placement yesteday, PD while in hospital, thursday DC (6) Anemia of chronic disease: Code(s): D63.8 - Anemia in other chronic diseases classified elsewhere Status: Acute Assessment and Plan: on epogen (7) Diet-controlled type 2 diabetes mellitus: Code(s): E11.9 - Type 2 diabetes mellitus without complications Status: Chronic (8) Hypothyroidism: Code(s): E03.9 - Hypothyroidism, unspecified Status: Chronic Assessment and Plan: on levothyroxine (9) Hyperlipidemia: Code(s): E78.5 - Hyperlipidemia, unspecified Status: Chronic (10) Depression with anxiety: Code(s): F41.8 - Other specified anxiety disorders Status: Chronic Assessment and Plan: Pt is on buspar (11) Crohn's disease: Code(s): K50.90 - Crohn's disease, unspecified, without complications Status: Chronic (12) Suspected COVID-19 virus infection: Code(s): Z20.828 - Contact with and (suspected) exposure to other viral communicable diseases Status: Acute Assessment and Plan: Pt is on isolation, not on oxygen no respiratory complaints, covid stable Subjective Date/time seen: 03/09/20 13:29 74-year-old female with diet-controlled diabetes, chronic kidney disease stage 5, anemia of chronic disease, coronary artery disease, hypertension, hypothyroidism, and several other comorbidities who presented to the emergency department earlier today via EMS from home with complaints of generalized weakness. Pt is covid positive, pt sp tunnel catheter placed under surgery on , pt to and start hemodialys
[2020-03-09 17:35] LABS: Glucose Point of Care 123 (65-105)
[2020-03-09] MEDS: SIMVASTATIN 10 MG TABLET PO (21:02)
[2020-03-09 21:30] LABS: Glucose Point of Care 238 (65-105)
[2020-03-10] MEDS: MAGNES & ALUM HYD/SIMETH/DIPHENHYD/LIDOCAINE 119 ML MOUTHWASH BY MOUTH ×5 (00:36→17:29)
[2020-03-10 04:00] VITALS: BP 146/61; PULSE 74; RESP 18; TEMP 36.4; O2SAT 92
[2020-03-10] MEDS: LEVOTHYROXINE SODIUM 75 MCG TABLET PO (05:39)
[2020-03-10 06:59] LABS: Albumin Level 2.4 g/dL (3.5-5.1); Anion Gap 7 mmol/L (8-16); Blood Urea Nitrogen 33 mg/dL (7-17); Calcium 8.5 mg/dL (8.4-10.2); Carbon Dioxide 33 mmol/L (22-30); Chloride 101 mmol/L (98-107); Estimated CRCL calculation 7 ml/min; Estimated Glomerular Filt Rate 7; Glucose 239 mg/dL (65-105); Phosphorus 3.4 mg/dL (2.5-4.5); Potassium 4.2 mmol/L (3.4-5.0); Sodium 141 mmol/L (137-145)
[2020-03-10 08:00] VITALS: BP 103/67; PULSE 72; PULSE 75; RESP 18; TEMP 36.6; O2SAT 92; O2SAT 93
[2020-03-10 08:55] VITALS: BP 146/61; PULSE 74; RESP 18; TEMP 36.4
[2020-03-10 09:14] VITALS: PULSE 72
[2020-03-10] MEDS: POTASSIUM CHLORIDE 20 MEQ TABLET.ER 40 MEQ PO ×2 (09:14→17:29)
[2020-03-10] MEDS: METOPROLOL TARTRATE 50 MG TAB PO (09:14)
[2020-03-10] MEDS: allopurinoL 300 MG TABLET PO (09:15)
[2020-03-10] MEDS: FERROUS SULFATE 324 MG TABLET PO (09:15)
[2020-03-10] MEDS: ASPIRIN 325 MG TABLET PO (09:15)
[2020-03-10] MEDS: SERTRALINE HCL 50 MG TABLET 100 MG PO (09:15)
[2020-03-10] MEDS: MULTIVITAMINS /C LUTEIN (CENTRUM SILVER) TABLET *BKC 1 TAB PO (09:15)
[2020-03-10] MEDS: busPIRone HCL 10 MG TABLET PO (09:15)
[2020-03-10] MEDS: HEPARIN SODIUM 5,000 UNITS/ML VIAL 5000 UNITS SUB-Q (09:35)
[2020-03-10 10:14] LABS: Glucose Point of Care 149 (65-105)
[2020-03-10 12:00] VITALS: BP 102/58; PULSE 69; RESP 18; TEMP 36.4; O2SAT 98
[2020-03-10 12:01] LABS: Glucose Point of Care 226 (65-105)
--- NOTE | 2020-03-10 12:07 | PM.DS ---
DS: Admitting Diagnosis Admitting Diagnosis Admitting Diagnosis: Generalized weakness. DS: Discharge Diagnosis Discharge Diagnosis (1) Generalized weakness: Code(s): R53.1 - Weakness Status: Acute Assessment and Plan: PT/ OT to start soon 03/09/20 13:29 74-year-old female with diet-controlled diabetes, chronic kidney disease stage 5, anemia of chronic disease, coronary artery disease, hypertension, hypothyroidism, and several other comorbidities who presented to the emergency department earlier today via EMS from home with complaints of generalized weakness. Pt is covid positive, pt sp tunnel catheter placed under surgery on , pt to and start hemodialysis here then at [place]. From respiratory point of view pt is stable. NO respiratory complaints. on 03/04 patient was clinically stable on 4 L nasal cannula and has not had any fever for last 2 days however patient was quite depressed crying, did not wanted to do HD dialysis, I spoke with the patient's son Dong to talk to the patient and decide about dialysis, on 03/05 early in the morning patient was still quite depressed and was not communicating however later in the afternoon patient had decided to have a dialysis, however dialysis catheter was clogged Cathflo was instilled to do HD, on 03/06 however the catheter was still clogged, consulted general surgery on 03/07 patient was taken to the OR and old catheter was not repairable and new catheter was placed, and patient had hemodialysis, patient will continue HD while in the hospital, will need to be trained to have PD as an outpatient. Patient is depressed and wants to go home however today patient is requiring less than 15 L of oxygen and her clinical symptoms are improving patient does not have any fever patient will be seen by Nephrology and will have HD tomorrow, and further recommendation to follow. (2) Pneumonia: Code(s): J18.9 - Pneumonia, unspecified organism Status: Acute Assessment and Plan: Pt is on iv rocephin and iv zithromax (3) Hypokalemia: Code(s): E87.6 - Hypokalemia Status: Resolved (4) Hypertension: Code(s): I10 - Essential (primary) hypertension Status: Acute (5) Chronic kidney disease, stage 5: Code(s): N18.5 - Chronic kidney disease, stage 5 Status: Chronic Assessment and Plan: Pt to start hemodialysis in [place] soon, sp tunnel catheter placement yesteday, PD while in hospital, thursday DC (6) Anemia of chronic disease: Code(s): D63.8 - Anemia in other chronic diseases classified elsewhere Status: Acute Assessment and Plan: on epogen (7) Diet-controlled type 2 diabetes mellitus: Code(s): E11.9 - Type 2 diabetes mellitus without complications Status: Chronic (8) Hypothyroidism: Code(s): E03.9 - Hypothyroidism, unspecified Status: Chronic Assessment and Plan: on levothyroxine (9) Hyperlipidemia: Code(s): E78.5 - Hyperlipidemia, unspecified Status: Chronic (10) Depression with anxiety: Code(s): F41.8 - Other specified anxiety disorders Status: Chronic Assessment and Plan: Pt is on buspar (11) Crohn's disease: Code(s): K50.90 - Crohn's disease, unspecified, without complications Status: Chronic (12) Suspected COVID-19 virus infection: Code(s): Z20.828 - Contact with and (suspected) exposure to other viral communicable diseases Status: Acute Assessment and Plan: Pt is on isolation, not on oxygen no respiratory complaints, covid stable DS: Summary Hospital Course Reason for hospitalization: Chief complaint: Generalized weakness. Cheif Complaint: Weakness. Narrative: Layla Maher is a 74-year-old female with diet-controlled diabetes, chronic kidney disease stage 5 for which she is to start peritoneal dialysis in the coming days, anemia of chronic disease, coronary artery disease, hypertens
[2020-03-10] MEDS: INSULIN ASPART (*BKC) 100 UNITS/ML SUB-Q (12:56)
--- NOTE | 2020-03-10 15:31 | PM.PNNEP ---
Progress Note: A&P Assessment and Plan (1) End stage renal disease: Code(s): N18.6 - End stage renal disease Status: Chronic Assessment and Plan: HD cath working fine. Using PD until discharge. (2) COVID-19: Code(s): U07.1 - COVID-19 Status: Acute Assessment and Plan: remains on isolation supportive care breathing fine now (3) Anemia of chronic disease: Code(s): D63.8 - Anemia in other chronic diseases classified elsewhere Status: Acute Assessment and Plan: due to ESRD and acute illness Epogen SQ 3x/week planned to continue with HD on discharge (4) Pneumonia: Code(s): J18.9 - Pneumonia, unspecified organism Status: Acute Assessment and Plan: on ceftriaxone and azithromycin Oxygenation is worse. Will recheck a chest x-ray. Will try to take a little more fluid off tonight. (5) Pericardial effusion: Onset Date: ~01/2020 Code(s): I31.3 - Pericardial effusion (noninflammatory) Status: Acute Assessment and Plan: repeat an echocardiogram down the line related to ESRD (?) (6) Hypertension: Code(s): I10 - Essential (primary) hypertension Status: Acute Assessment and Plan: Well controlled. Since I am taking extra fluid off, I will stop her amlodipine. Subjective Date/time seen: 03/10/20 15:31 Interval history: pt is lying in bed comfortably. feels fine. no sob. eager for discharge Exam Narrative: Exam Narrative: General: WD/WN female in NAD Heart: normal S1 and S2; no rub Lungs: coarse breath sounds Abdomen: soft, nontender, nondistended, positive bowel sounds Extremities: no cyanosis or clubbing; no edema Skin: no sq nodules Objective Data Vital Signs Vital Signs: Vital Signs - 24 hr 03/09/20 16:00 03/09/20 19:01 03/09/20 20:00 Temperature 36.4 C 36.4 C 37.3 C Pulse Rate 74 74 92 Respiratory Rate 18 18 20 Blood Pressure 117/51 L 117/51 L 130/50 L Pulse Oximetry 93 91 03/09/20 21:00 03/09/20 21:02 03/09/20 23:58 Temperature 36.9 C Pulse Rate 72 79 Respiratory Rate 18 Blood Pressure 123/51 L Pulse Oximetry 91 91 03/10/20 04:00 03/10/20 08:00 03/10/20 08:55 Temperature 36.4 C L 36.6 C 36.4 C L Pulse Rate 74 75 74 Respiratory Rate 18 18 18 Blood Pressure 146/61 H 103/67 146/61 H Pulse Oximetry 92 93 03/10/20 09:14 03/10/20 12:00 Temperature 36.4 C Pulse Rate 72 69 Respiratory Rate 18 Blood Pressure 102/58 L Pulse Oximetry 98 Intake/Output Intake/Output: Intake & Output 03/07/20 03/08/20 03/09/20 03/10/20 23:59 23:59 23:59 23:59 Intake Total 1250 990 560 480 Output Total 1252 0 0 1974 Balance -2 990 560 -1494 Meds/Results Medications: Active Medications Generic Name Dose Route Start Last Admin Trade Name Freq PRN Reason Stop Dose Admin Acetaminophen 650 mg 02/28/20 19:07 03/04/20 22:28 Acetaminophen 325 Mg Tablet PO 650 mg Q6H PRN Administration Mild Pain (1-3) or Fever Allopurinol 300 mg 02/29/20 09:00 03/10/20 09:15 Allopurinol 300 Mg Tablet PO 300 mg DAILY SUKI Administration Aspirin 325 mg 02/29/20 09:00 03/10/20 09:15 Aspirin 325 Mg Tablet PO 325 mg DAILY SUKI Administration Buspirone HCl 10 mg 02/28/20 21:00 03/10/20 09:15 Buspirone Hcl 10 Mg Tablet PO 10 mg Q12HR SUKI Administration Dextrose 12.5 gm 03/04/20 16:48 Dextrose 50% 25 Gm/50 Ml Syringe IV PUSH PRN PRN Hypoglycemia Protocol Epoetin Kelechi-epbx 10,000 units 02/29/20 18:00 03/09/20 17:39 Epoetin Kelechi-Epbx 10,000 Units/Ml Vial SUB-Q Not Given [id number] [facility] Ergocalciferol 50,000 unit 03/06/20 09:00 03/06/20 08:10 Ergocalciferol 50,000 Unit Capsule PO 50,000 unit [id number] [facility] Administration Fentanyl Citrate 12.5 mcg 03/02/20 12:42 Fentanyl Citrate Inj (*Crx) 100 Mcg/2 Ml Vial IV PUSH Q2H PRN Pain Rated 4-6 Fentanyl Citr
[2020-03-10 16:00] VITALS: BP 136/64; PULSE 73; RESP 18; TEMP 36.9; O2SAT 92
[2020-03-10 18:15] LABS: Glucose Point of Care 115 (65-105)
== END 2020-03-10 18:25 | DRG 177 ==
LOC: ANHED 12:00 → ANH3MEDSUR 02-29 13:08
PROVIDERS: Family Medicine; Internal Medicine Nephrology; Physician Assistant; Surgery; Admitting Provider Internal Medicine; Emergency Provider Emergency Medicine; PCP Family Medicine Adolescent Medicine; Visit Provider Family Medicine
PROC: 02HV33Z Insertion of Infusion Device into Superior Vena Cava, Percutaneous Approach (ICD-10-PCS; CPT 36908; principal; 2020-03-02 10:00)
PROC: 0J2SXYZ Change Other Device in Head and Neck Subcutaneous Tissue and Fascia, External Approach (ICD-10-PCS; CPT 36908; principal; 2020-03-07 09:30)
DX: U07.1 COVID-19 (principal); N18.6 End stage renal disease; J12.89 Other viral pneumonia; I12.0 Hypertensive chronic kidney disease with stage 5 chronic kidney disease or end stage renal disease; N17.9 Acute kidney failure, unspecified; K50.90 Crohn's disease, unspecified, without complications; I31.3 Pericardial effusion (noninflammatory); T82.898A Other specified complication of vascular prosthetic devices, implants and grafts, initial encounter; E11.22 Type 2 diabetes mellitus with diabetic chronic kidney disease; E87.6 Hypokalemia; D63.8 Anemia in other chronic diseases classified elsewhere; E03.9 Hypothyroidism, unspecified; F41.8 Other specified anxiety disorders; I25.10 Atherosclerotic heart disease of native coronary artery without angina pectoris; G47.33 Obstructive sleep apnea (adult) (pediatric); E78.5 Hyperlipidemia, unspecified; E11.51 Type 2 diabetes mellitus with diabetic peripheral angiopathy without gangrene; Z90.722 Acquired absence of ovaries, bilateral; Z90.710 Acquired absence of both cervix and uterus; Z95.5 Presence of coronary angioplasty implant and graft; Z99.2 Dependence on renal dialysis; Z85.528 Personal history of other malignant neoplasm of kidney; Z90.49 Acquired absence of other specified parts of digestive tract; Z87.891 Personal history of nicotine dependence
CPT/HCPCS: 36415; 51701; 71045; 71046; 72020; 77001; 80048; 80053; 80069; 81001; 82550; 83605; 83735; 84100; 84132; 84439; 84443; 84480; 85025; 85027; 85610; 85730; 86140; 86706; 86850; 86900; 86901; 87040; 87340; 87449; 87635; 87899; 90945; 93005; 96374; 97110; 97116; 97161; 97165; 97530; 97535; 99285; A9270; C1750; C9803; G0257; J0131; J0456; J0690; J0696; J1100; J1644; J1815; J1956; J2405; J2704; J2997; J3010; J3475; J7030; P9047; Q5106; U0003

== ENCOUNTER → 2021-07-16 14:10 | Outpatient (CLI) | payer MEDICARE, SELFPAY ==
--- NOTE | ~2021-07-16 | MM_ITS ---
EXAMINATION: MM screening victorina BI w mady HISTORY: Screening mammogram TECHNIQUE: Craniocaudal and mediolateral oblique 3-D tomosynthesis images were obtained and synthetic 2-D images were generated. CAD analysis was submitted and interpreted. COMPARISON: 09/19/2013, 05/05/2012 bilateral screening mammogram examinations BREAST PARENCHYMAL COMPOSITION: FINDINGS: There is no evidence of suspicious mass, calcification, or architectural distortion to sugg est malignancy in either breast. There has been no suspicious interval change. IMPRESSION: 1. No mammographic evidence of malignancy. 2. Recommend routine screening mammography in one year. BI-RADS Category 1: Negative Reviewed, dictated and finalized at location A.
== END ==
PROVIDERS: PCP Family Medicine Adolescent Medicine; Visit Provider Family Medicine Adolescent Medicine
DX: Z12.31 Encounter for screening mammogram for malignant neoplasm of breast (principal)
CPT/HCPCS: 77063; 77067

== ENCOUNTER 2021-08-14 17:31 | Emergency (ER) | payer MEDICARE, SELFPAY ==
[2021-08-14 18:07] VITALS: BP 147/65; PULSE 67; RESP 20; TEMP 36.4; O2SAT 97
--- NOTE | 2021-08-14 18:13 | PC.NURSE ---
pt states she is going to go to [facility] where dr. tomas requested her to go.
== END 2021-08-15 02:38 | disposition left against medical advice (07) ==
PROVIDERS: PCP Family Medicine Adolescent Medicine
DX: T80.89XA Other complications following infusion, transfusion and therapeutic injection, initial encounter (principal)
CPT/HCPCS: 99199

== ENCOUNTER 2021-08-20 06:58 | Emergency (ER) | payer MEDICARE, SELFPAY ==
--- NOTE | ~2021-08-20 | XR_ITS ---
EXAMINATION: XR hand RT min 3V DATE: 08/20/2021 08:00 INDICATION: Right hand pain. TECHNIQUE: 3 views of right hand were obtained. COMPARISON: None. FINDINGS: There is widening of scapholunate joint. There is a nondisplaced fracture of radial styloid . There is a bone fragment posterior to the proximal carpal row. Trapezium is absent. There is severe narrowing of scaphoid-trapezoid joint with likely ankylosis. There is mild osteoarthritis of distal radioulnar joint, second and fifth metacarpophalangeal joints, and some of the interphalangeal joints . There are loose bodies in the radiocarpal compartment. IMPRESSION: 1. Nondisplaced fracture of radial styloid. 2. Bone fragment posterior to the proximal carpal row, which may be an avulsion fracture of dorsal po le of triquetrum or a loose body. 3. Absent trapezium. 4. Scapholunate dissociation. 5. Severe narrowing of scaphoid-trapezoid joint with likely ankylosis. 6. Polyarticular osteoarthritis. Reviewed, dictated and finalized at location A. IMPRESSION: 1. Nondisplaced fracture of radial styloid. 2. Bone fragment posterior to the proximal carpal row, which may be an avulsion fracture of dorsal pole of triquetrum or a loose body. 3. Absent trapezium. 4. Scapholunate dissociation. 5. Severe narrowing of scaphoid-trapezoid joint with likely ankylosis. 6. Polyarticular osteoarthritis.
--- NOTE | ~2021-08-20 | XR_ITS ---
EXAMINATION: XR wrist RT min 3V DATE: 08/20/2021 08:00 INDICATION: Right wrist pain. Fall. TECHNIQUE: 4 views of right wrist were obtained. COMPARISON: None. FINDINGS: There is widening of scapholunate joint. No fracture. Trapezium is absent. There is severe narrowing of scaphoid-trapezoid joint with likely ankylosis. There is mild osteoarthritis of distal r adioulnar joint. There are loose bodies in the radiocarpal compartment. IMPRESSION: 1. Scapholunate dissociation. 2. Absent trapezium. 3. Severe narrowing of scaphoid-trapezoid joint with likely ankylosis. 4. Loose bodies in the radiocarpal compartment. Reviewed, dictated and finalized at location A.
--- NOTE | ~2021-08-20 | XR_ITS ---
EXAMINATION: XR chest 2V DATE: 08/20/2021 08:00 INDICATION: Shortness of breath. Right chest wall pain. TECHNIQUE: Frontal and lateral views of the chest were obtained. COMPARISON: Chest single view 02/20/2021 FINDINGS: There is mild atelectasis in the lower lung zones. No pleural effusion or pneumothorax. Car diomegaly is noted. Surgical clips in the right upper quadrant are likely from cholecystectomy. IMPRESSION: 1. Mild atelectasis in the lower lung zones. 2. Cardiomegaly. Reviewed, dictated and finalized at location A.
[2021-08-20 06:57] VITALS: BP 149/50; PULSE 69; RESP 18; TEMP 36.6; O2SAT 93
--- NOTE | 2021-08-20 07:30 | ED.FALL ---
HPI - Fall General Chief Complaint: Fall Stated Complaint: dyspnea, fall last noc History of Present Illness HPI Narrative: 76-year-old female presenting to the emergency department for evaluation of right-sided chest wall pain and right hand pain. Patient reports last night she was walking her dog and the leash got wrapped around her left ankle. Patient reports falling to her right side. Patient did have some shortness of breath immediately after the fall. This morning patient noticed ecchymosis of the right hand and ecchymosis of the right lateral chest and proximal right breast. Patient does have history of renal failure and does have dialysis on Tuesdays and Thursday. When presenting to dialysis today patient was unable to start dialysis because she was having pain with deep inspiration. Related Data Home Medications Medication Instructions Recorded Confirmed ferrous sulfate 325 mg (65 mg 65 mg PO DAILY 08/23/19 05/21/21 iron) tablet levothyroxine 75 mcg tablet 75 mcg PO DAILY 08/23/19 05/21/21 multivit with 1 tablet PO DAILY 08/23/19 05/21/21 sdrrwjbm-cvix-RC-lutein 8 mg iron-400 mcg-300 mcg tablet (Centrum Silver Women) sertraline 100 mg tablet 100 mg PO DAILY 08/23/19 05/21/21 aspirin 325 mg tablet 325 mg PO DAILY 02/28/20 05/21/21 ergocalciferol (vitamin D2) 25,000 50,000 unit PO WEEKLY 02/28/20 05/21/21 unit capsule oxybutynin chloride 15 mg 15 mg PO DAILY 02/28/20 05/21/21 tablet,extended release 24 hr sevelamer carbonate 800 mg tablet 800 mg PO TID 05/21/21 05/21/21 Allergies Allergy/AdvReac Type Severity Reaction Status Date / Time cortisone Allergy Intermediate Dyspnea / Verified 08/20/21 07:05 SOB Penicillins Allergy Intermediate Dyspnea / Verified 08/20/21 07:05 SOB amlodipine AdvReac Intermediate Drowsy Verified 08/20/21 07:05 Review of Systems Review of Systems: CONSTITUTIONAL: Denies fever, chills, or sweats. EYES: Denies visual changes, redness, or discharge. ENT: Denies rhinorrhea, congestion, sore throat, or otalgia. CARDIOVASCULAR: Right lateral chest wall pain RESPIRATORY: Denies cough or dyspnea. GASTROINTESTINAL: Denies abdominal pain, nausea, vomiting, or diarrhea. GENITOURINARY: Denies dysuria or hematuria. SKIN: Denies rash or itching. MUSCULOSKELETAL: Right hand pain NEUROLOGIC: Denies headache, numbness, or weakness. [facility] Past Medical History Medical History Anemia of chronic disease Coronary artery disease History of stent x3. COVID-19 Crohn's disease Depression with anxiety End stage renal disease Gastroesophageal reflux disease History of kidney stones Hypothyroidism Normal colonoscopy 09/02 Obstructive sleep apnea No longer using CPAP after 40 lb weight loss. Pericardial effusion (~01/2020) Small pericardial effusion on echocardiogram, felt to be related to uremia. Peripheral vascular disease Peritonitis (~01/2020) Renal cell carcinoma (~2004) Restless leg syndrome Shingles (~1991) Surgical History Surgical History History of appendectomy History of bilateral carpal tunnel release History of cardiac catheterization With stent x3. History of cholecystectomy History of colonoscopy History of cystoscopy With ureteral stents for kidney stones. History of foot surgery Repair of left foot fracture with pinning. History of hysterectomy (~1976) With cystocele and rectocele repairs. History of partial nephrectomy (~2004) Left partial nephrectomy for kidney cancer. History of tonsillectomy Family History Family History Father Renal cell carcinoma Mother Lung cancer Social History Social History (Updated 05/21/21 @ 14:46 by Torie Bolden MA) Social History: The patient is and lives in [place]. 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
[2021-08-20 07:50] LABS: Basophils Percent Auto 0.3 % (0.2-1.2); Eosinophils Absolute Auto 0.6 K/mm3 (0-0.3); Eosinophils Percent Auto 5.4 % (0-4.4); Hematocrit 29.9 % (37.0-47.0); Hemoglobin 9.5 g/dL (12.0-15.0); Immature Granulocyte Percent A 0.9 % (0-0.5); Lymphocytes Absolute Auto 2.13 K/mm3 (0.9-3.2); Lymphocytes Percent Auto 18.4 % (18.3-44.2); Mean Corpuscular HGB Conc 31.8 g/dl (32-36); Mean Corpuscular Hemoglobin 29.4 pg (26-34); Mean Corpuscular Volume 92.6 fl (80-100); Mean Platelet Volume 8.6 fl (7.4-10.4); Monocytes Percent Auto 8.4 % (2.6-8.5); Neutrophils Absolute Auto 7.7 K/mm3 (1.3-6.7); Neutrophils Percent Auto 66.6 % (45.5-73.1); Platelet Count Result 213 k/mm3 (150-375); Red Blood Count 3.23 M/mm3 (4.2-5.4); Red Cell Distribution Width 15.9 % (11.5-14.5); White Blood Count 11.6 K/mm3 (4.5-10.0)
--- NOTE | 2021-08-20 07:54 | PC.NURSE ---
Patient in radiology.
[2021-08-20 08:04] LABS: Alanine Aminotransferase 18 U/L (6-35); Alkaline Phosphatase 184 U/L (38-126); Anion Gap 12 mmol/L (8-16); Aspartate Amino Transferase 23 U/L (14-36); Bilirubin,Total 0.3 mg/dL (0.2-1.3); Blood Urea Nitrogen 68 mg/dL (7-17); Calcium 8.4 mg/dL (8.4-10.2); Carbon Dioxide 22 mmol/L (22-30); Chloride 104 mmol/L (98-107); Estimated CRCL calculation 6 ml/min; Estimated Glomerular Filt Rate 5; Glucose 154 mg/dL (65-110); Potassium 4.2 mmol/L (3.4-5.0); Sodium 138 mmol/L (137-145)
[2021-08-20] MEDS: HYDROmorphone HCL INJ (*CRX) 1 MG/ML SYR 0.5 MG IV PUSH (08:04)
[2021-08-20 08:07] VITALS: BP 144/60; PULSE 71; RESP 17; O2SAT 95
[2021-08-20 09:13] VITALS: BP 134/59; PULSE 72; RESP 17; O2SAT 99
== END 2021-08-20 09:15 | disposition home or self-care (01) ==
PROVIDERS: Emergency Provider Emergency Medicine; PCP Family Medicine Adolescent Medicine
DX: S52.514A Nondisplaced fracture of right radial styloid process, initial encounter for closed fracture (principal); M25.331 Other instability, right wrist; N18.6 End stage renal disease; I25.10 Atherosclerotic heart disease of native coronary artery without angina pectoris; D64.9 Anemia, unspecified; Z86.16 Personal history of COVID-19; F41.9 Anxiety disorder, unspecified; F32.9 Major depressive disorder, single episode, unspecified; E03.9 Hypothyroidism, unspecified; Z87.442 Personal history of urinary calculi; G47.30 Sleep apnea, unspecified; G25.81 Restless legs syndrome; W01.0XXA Fall on same level from slipping, tripping and stumbling without subsequent striking against object, initial encounter
CPT/HCPCS: 29125; 36415; 71046; 73110; 73130; 80053; 85025; 96374; 99284; A4565; J1170

== ENCOUNTER 2021-12-02 10:55 | Inpatient (IN) | payer MEDICARE, SELFPAY ==
[2021-12-02] VITALS (24 sets, daily range): BP systolic 138–223; BP diastolic 61–102; PULSE 109–155; RESP 16–33; TEMP 36–37.8; O2SAT 93–98; BMI 29.4
--- NOTE | ~2021-12-02 | XR_ITS ---
XR chest 1V portable 12/02/2021 13:03 Indication: Shortness of breath Procedure: AP portable chest Comparison: Comparison to multiple prior studies sequentially, with oldest reviewed study dated 02/14. Findings: Cardiomegaly. There are infiltrates of the mid and lower lungs bilaterally. No significant effusion. No pneumothorax. No acute osseous abnormality. Impression: 1: Bilateral infiltrates of the mid and lower lungs which may represent edema or pneumonia. Reviewed, dictated and finalized at location A. Impression: 1: Bilateral infiltrates of the mid and lower lungs which may represent edema o r pneumonia.
--- NOTE | ~2021-12-02 | XR_ITS ---
EXAMINATION: XR chest 1V portable DATE: 12/04/2021 05:42 INDICATION: Pulmonary edema. TECHNIQUE: A single frontal view of the chest was obtained. COMPARISON: Chest single view 12/02/2021, chest CT 02/02/2020, 09/29/2016 FINDINGS: There is a diffuse interstitial pattern, consistent with mild pulmonary edema. There is mil d atelectasis at left lung base. There is a chronic nodule in right lower lobe, likely benign. No ple ural effusion or pneumothorax. Cardiomegaly is noted. IMPRESSION: 1. Mild pulmonary edema. 2. Mild atelectasis at left lung base. 3. Cardiomegaly. Reviewed, dictated and finalized at location A.
--- NOTE | ~2021-12-02 | US_ITS ---
EXAMINATION:US venous doppler LE BI INDICATION:Shortness of breath. Leg immobility. TECHNIQUE: Multiple grayscale, color flow and Doppler images of the right and left lower extremity de ep venous systems were obtained and reviewed. COMPARISON:09/29/2018 FINDINGS: The common femoral, superficial femoral and popliteal veins demonstrate normal respiratory variation, augmentation and compressibility. Color flow is also seen within the posterior tibial, pe roneal, greater saphenous and profunda veins. IMPRESSION: 1: No lower extremity deep venous thrombosis. Reviewed, dictated and finalized at location A.
--- NOTE | ~2021-12-02 | NM_ITS ---
EXAMINATION: NM pulmonary perfusion DATE: 12/02/2021 14:25 INDICATION: Shortness of breath. TECHNIQUE: 5.2 mCi Tc-99m MAA was administered intravenously for perfusion images. Scintigraphic abilio ges of the chest were obtained. COMPARISON: Chest single view 12/02/2021 FINDINGS: Perfusion images show small matched defects in the lower lobes. IMPRESSION: 1. Pulmonary embolism absent (low probability for pulmonary embolism). Reviewed, dictated and finalized at location A.
[2021-12-02] MEDS: diphenhydrAMINE HCl INJ 50 MG/ML VIAL 25 MG IV PUSH (10:58)
[2021-12-02] MEDS: FAMOTIDINE 20 MG/2 ML VIAL IV PUSH (10:59)
--- NOTE | 2021-12-02 12:27 | ECG_ITS ---
Measurements Intervals [place] Rate: 135 P: -13 NV: 122 QRS: -51 QRSD: 89 T: 61 QT: 310 QTc: 465 Interpretive Statements SINUS TACHYCARDIA LEFT ANTERIOR FASCICULAR BLOCK ABNORMAL ECG COMPARED TO ECG 02/28/2020 10:45:46 LEFT ANTERIOR FASCICULAR BLOCK NOW PRESENT Electronically Signed On 12-02-2021 14:03:32 CDT by Brennen Keenan D.O.
--- NOTE | 2021-12-02 12:28 | ECG_ITS ---
Measurements Intervals [place] Rate: 155 P: 200 CO: 77 QRS: -53 QRSD: 86 T: 55 QT: 292 QTc: 470 Interpretive Statements ATRIAL FLUTTER/TACHYCARDIA WITH RAPID VENTRICULAR RESPONSE LEFT AXIS DEVIATION BORDERLINE R WAVE PROGRESSION, ANTERIOR LEADS CONSIDER INFERIOR INFARCT, AGE INDETERMINATE BASELINE ARTIFACT- I, II, III, AVR, AVL, AVF, V1-V6 ABNORMAL ECG COMPARED TO ECG 02/28/2020 10:45:46 ATRIAL FLUTTER/TACHYCARDIA WITH RAPID VENTRICULAR RESPONSE NOW PRESENT Electronically Signed On 12-02-2021 16:53:01 CDT by Brennen Keenan D.O.
--- NOTE | 2021-12-02 12:28 | ED.ALLEREA ---
HPI - Allergic Reaction General Chief complaint: Allergic Reaction Stated complaint: ?allergic reaction to abx History of Present Illness HPI narrative: Pt received dose of rocephin this morning and then became SOB. Pt denies CP. Pt has PCN allergy. Pt is dialysis pt, M,W, F. Pt has recent hx of leg fx. Related Data Home Medications Medication Instructions Recorded Confirmed levothyroxine 75 mcg tablet 75 mcg PO DAILY 08/23/19 10/01/21 aspirin 325 mg tablet 325 mg PO DAILY 02/28/20 10/01/21 ergocalciferol (vitamin D2) 25,000 50,000 unit PO WEEKLY 02/28/20 10/01/21 unit capsule oxybutynin chloride 15 mg 15 mg PO DAILY 02/28/20 10/01/21 tablet,extended release 24 hr sevelamer carbonate 800 mg tablet 800 mg PO TID 05/21/21 10/01/21 psyllium husk 0.4 gram capsule 1.6 g PO DAILY 10/01/21 10/01/21 (Daily Fiber) vitamin B complex 1 tablet PO DAILY 10/01/21 10/01/21 Allergies Allergy/AdvReac Type Severity Reaction Status Date / Time cortisone Allergy Intermediate Dyspnea / Verified 12/02/21 10:56 SOB Penicillins Allergy Intermediate Dyspnea / Verified 12/02/21 10:56 SOB ceftriaxone [From Rocephin] Allergy Difficulty Verified 12/02/21 10:56 Breathing amlodipine AdvReac Intermediate Drowsy Verified 12/02/21 10:56 Review of Systems Review of Systems: All systems reviewed & are unremarkable except as noted in HPI and below PMFSH Past Medical History Medical History Anemia of chronic disease Coronary artery disease History of stent x3. COVID-19 Crohn's disease Depression with anxiety End stage renal disease Gastroesophageal reflux disease History of kidney stones Hypothyroidism Normal colonoscopy 09/02 Obstructive sleep apnea No longer using CPAP after 40 lb weight loss. Pericardial effusion (~01/2020) Small pericardial effusion on echocardiogram, felt to be related to uremia. Peripheral vascular disease Peritonitis (~01/2020) Renal cell carcinoma (~2004) Restless leg syndrome Shingles (~1991) Surgical History Surgical History History of appendectomy History of bilateral carpal tunnel release History of cardiac catheterization With stent x3. History of cholecystectomy History of colonoscopy History of cystoscopy With ureteral stents for kidney stones. History of foot surgery Repair of left foot fracture with pinning. History of hysterectomy (~1976) With cystocele and rectocele repairs. History of partial nephrectomy (~2004) Left partial nephrectomy for kidney cancer. History of tonsillectomy Family History Family History Father Renal cell carcinoma Acute myocardial infarction Cerebrovascular accident Colon polyp Heart disease Hypertension Mother Lung cancer Acute myocardial infarction Cerebrovascular accident Depression Heart disease Hypertension Son Asthma Social History Social History Social History: Surrogate medical decision maker: Dong Maher, son. Code status: Full code. Smoking packs per day: 1 Smoking cigarettes per day: 20.0 Years smoked: 40 Smoking pack-years: 40.00 Smoking status: Former smoker Tobacco type: cigarettes Second hand tobacco smoke exposure: No Smoking end date: 03/16/93 Alcohol intake: never Substance use: never Substance use type: does not use Additional living arrangements comments: , lives in [place]. 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 Spiritual care concerns: No Agree to blood products: Yes Exam Const: General: healthy appearing Nutritional Appearance: well nourished Orientation/consciousness: patient oriented x3 Limitations: no limitations Eyes: Conjunctivae: conjunctivae normal EOM: EOMs intact b
[2021-12-02 12:46] LABS: Basophils Percent Auto 0.2 % (0.2-1.2); Eosinophils Absolute Auto 0.3 K/mm3 (0-0.3); Eosinophils Percent Auto 2.4 % (0-4.4); Hematocrit 34.1 % (37.0-47.0); Immature Granulocyte Absolute 0.07 K/mm3 (0.00-0.031); Immature Granulocyte Percent A 0.6 % (0-0.5); Lymphocytes Absolute Auto 1.68 K/mm3 (0.9-3.2); Lymphocytes Percent Auto 13.2 % (18.3-44.2); Mean Corpuscular HGB Conc 29.3 g/dl (32-36); Mean Corpuscular Hemoglobin 29.9 pg (26-34); Mean Corpuscular Volume 102.1 fl (80-100); Mean Platelet Volume 8.8 fl (7.4-10.4); Monocytes Absolute Auto 0.5 K/mm3 (0.1-0.6); Monocytes Percent Auto 4.2 % (2.6-8.5); Neutrophils Absolute Auto 10.1 K/mm3 (1.3-6.7); Neutrophils Percent Auto 79.4 % (45.5-73.1); Platelet Count Result 290 k/mm3 (150-375); Red Blood Count 3.34 M/mm3 (4.2-5.4); Red Cell Distribution Width 16.4 % (11.5-14.5); White Blood Count 12.7 K/mm3 (4.5-10.0)
[2021-12-02 13:01] LABS: Alanine Aminotransferase 19 U/L (6-35); Albumin Level 4.5 g/dL (3.5-5.1); Alkaline Phosphatase 197 U/L (38-126); Anion Gap 16 mmol/L (8-16); Aspartate Amino Transferase 23 U/L (14-36); Bilirubin,Total 0.8 mg/dL (0.2-1.3); Blood Urea Nitrogen 42 mg/dL (7-17); Calcium 9.3 mg/dL (8.4-10.2); Carbon Dioxide 23 mmol/L (22-30); Chloride 103 mmol/L (98-107); Estimated CRCL calculation 7 ml/min; Estimated Glomerular Filt Rate 7; Glucose 154 mg/dL (65-110); Potassium 4.4 mmol/L (3.4-5.0); Sodium 142 mmol/L (137-145)
[2021-12-02 13:15] LABS: NT Pro B Type Natriuretic Pept 10500 pg/mL (5-100); Troponin I 0.056 ng/mL (0.000-0.034)
[2021-12-02 13:34] LABS: Platelet Estimate Adequate (Adequate)
[2021-12-02 13:35] LABS: Anisocytosis 1+ (NORMAL); Schistocytes 1+ (NORMAL); Spherocytes 1+ (NORMAL)
[2021-12-02 13:36] LABS: Poikilocytosis 1+ (NORMAL)
--- NOTE | 2021-12-02 13:55 | PC.NURSE ---
Lab called in regards to the blue top specimen being sent down.
[2021-12-02 15:06] LABS: SARS-CoV-2 RNA PCR Negative
[2021-12-02 15:11] LABS: INR 1.1; Partial Thromboplastin Time 24.9 SECONDS (22.3-36.8); Prothrombin Time 13.6 Seconds (11.1-14.7)
--- NOTE | 2021-12-02 15:48 | PC.NURSE ---
Patient taken to dialysis before ICU. carry out clerk to transport patient to ICU after.
--- NOTE | 2021-12-02 15:58 | PC.NURSE ---
Report given to Rubi in the ICU.
--- NOTE | 2021-12-02 16:00 | PC.NURSE ---
Report received from DINORAH Rosen@ in ER. Pt currently in dialysis. Pt placed on our monitor and ED notified.
--- NOTE | 2021-12-02 16:54 | PM.EVENT ---
Event Note Event Note Event Note: Patient was seen at 4:50 p.m.. She is on dialysis. She is very anxious and chilling. For some reason her dialysate temperature is 35.5?. I asked the nurse to change it to 37 right away. Then after examining her I had the nurse switch to dry ultrafiltration which will eliminate the dialysate and therefore the temperature issue. We will continue to remove fluid and see how she does. I asked nursing to give her 0.1 of clonidine p.o. x1 as well to bring her blood pressure down
[2021-12-02 17:07] LABS: Troponin I 0.364 ng/mL (0.000-0.034)
--- NOTE | 2021-12-02 17:11 | PM.EVENT ---
Event Note Event Note Event Note: I saw the patient again at 5:25 p.m.. She is still on dialysis. She is calmer now. She is no longer chilling. Her blood pressure is down to 149. Her pulses still somewhat high at about 138. Will see high we did do with fluid removal. She did get the clonidine as well. Is a lot calmer now. So hopefully things will settle down.
[2021-12-02 17:22] LABS: Hepatitis B Surface Antigen Negative (Negative)
--- NOTE | 2021-12-02 17:35 | PM.CNNEP ---
Assessment and Plan Assessment and plan (1) End stage renal disease: Code(s): N18.6 - End stage renal disease Status: Chronic Assessment and Plan: Layla has end-stage renal disease. She has been on dialysis for few years. She gets dialysis 3 times a week on Wednesdays and Fridays lately. Traditionally she has been on Thursday but she moved her shift because of her being in rehab. The patient does have fluid overload. She has been getting to her dry weight. Perhaps she is not eating very well in rehab and has lost some real weight. We will adjust her dry weight down words as an outpatient. Patient does have a history of coronary disease. Her 1st troponin was 0.056 under 2nd 1 was 0.364. we Can check another 1 later to make sure it does not continue to rise. She does have a flutter with RVR. Part of the fast heart rate could be her chills and anxiety. Part of it could be from fluid overload. Removing fluid might improve the heart rate. Changing the dialysis and having her chill less will also help the heart rate. The clonidine should help her heart rate as well. If the heart rate does not come down much we will give her some metoprolol. (2) Pulmonary edema: Code(s): J81.1 - Chronic pulmonary edema Status: Acute Assessment and Plan: The patient has volume overload. Will take fluid off. (3) Generalized anxiety disorder: Code(s): F41.1 - Generalized anxiety disorder Status: Acute Assessment and Plan: The patient is very anxious right now. (4) Atherosclerotic heart disease of [place] coronary artery without angina pectoris: Code(s): I25.10 - Atherosclerotic heart disease of [place] coronary artery without angina pectoris Status: Acute Assessment and Plan: She is not having any chest pain. (5) Type 2 diabetes mellitus with diabetic polyneuropathy: Code(s): E11.42 - Type 2 diabetes mellitus with diabetic polyneuropathy Status: Acute Assessment and Plan: She is on medications per hospitalist (6) Pure hypercholesterolemia, unspecified: Code(s): E78.00 - Pure hypercholesterolemia, unspecified Status: Acute Assessment and Plan: she is on simvastatin (7) BEKA (obstructive sleep apnea): Code(s): G47.33 - Obstructive sleep apnea (adult) (pediatric) Status: Chronic Assessment and Plan: she does not use a CPAP machine anymore because she lost a lot of weight. (8) Hypothyroidism: Code(s): E03.9 - Hypothyroidism, unspecified Status: Chronic Assessment and Plan: She is on supplements. Will check a TSH (9) Hypertensive chronic kidney disease with stage 5 chronic kidney disease or end stage renal disease: Code(s): I12.0 - Hypertensive chronic kidney disease with stage 5 chronic kidney disease or end stage renal disease Status: Acute Assessment and Plan: her blood pressure is high now. She is getting some clonidine and fluid removal. History of Present Illness Reason for Consult Consult date: 12/02/21 Chief Complaint Chief complaint: Pulmonary Edema History of Present Illness Narrative: Layla is a very pleasant 76-year-old lady who has multiple medical problems including end-stage renal disease on dialysis Wednesdays and Fridays, hypertension, hypothyroidism, gout, GERD, depression, anxiety, hyperlipidemia, anemia of chronic kidney disease, renal osteodystrophy, history of shingles, renal cell carcinoma in the past, peripheral vascular disease, sleep apnea, Crohn's disease. The patient fell and fractured her left leg. She has been in rehab because she is not strong enough to be at home. Today she apparently received some antibiotics and she felt funny and thought she might be having a reaction and so she came to the ER. By the time she got to the ER she was better but she was somewhat short of breath. S
--- NOTE | 2021-12-02 18:45 | PM.IMHP ---
H&P: HPI History of Present Illness Date/Time: 12/02/21 18:45 Chief Complaint: Shortness of breath. Narrative: This is a pleasant 76-year-old female with multiple medical problems including end-stage renal disease on hemodialysis, hypertension, hyperlipidemia, anemia of chronic kidney disease, renal osteodystrophy, renal cell carcinoma, sleep apnea, Crohn's disease, peripheral vascular disease, hypothyroidism, and other comorbidities who presented to the emergency department via EMS from a local rehab facility for evaluation of shortness of breath. She is currently in rehab as she is currently nonweightbearing after fracturing her left lower leg. The last several days she has been complaining of left ear pain and she was given 1 gram of ceftriaxone IM for presumed otitis media. Patient reports that the injection was extremely painful (given in right upper arm) and she became immediately short of breath with chest discomfort and feelings as though she could not move her extremities. She assumes that she was having an allergic reaction to the antibiotic and she came in for evaluation. She was afebrile on arrival however her temperature did get up to 100.1? this evening though she is asymptomatic with that. She was not hypotensive and in fact her blood pressure was 223/98 on arrival. Pertinent labs include a troponin of 0.056, proBNP 57363, sodium 142, potassium 4.4, and a D-dimer 1.40. V/Q scan was low probability for PE. EKG on arrival showed atrial flutter/tachycardia with rapid ventricular response of which she was asymptomatic. With the appearance of volume overload she was sent for dialysis and her blood pressures and heart rate have improved. She is no longer feeling short of breath it she has not had any chest discomfort since shortly after receiving the ceftriaxone today. Troponins have trended up to 1.470, however. On re-evaluation this evening she feels just fine and again she is not having any chest discomfort or shortness of breath. Her ear is no longer hurting. She has not had feelings of fever, chills, or sweats. She also denies sinus congestion, sore throat, and cough. No abdominal pain, nausea, vomiting, or diarrhea. She has not noticed any swelling in her lower extremities and is not having any calf pain. Review of Systems Review of Systems: Twelve systems were reviewed and are negative except for as per HPI. [facility] Past Medical History Medical History Anemia of chronic disease Coronary artery disease History of stent x3. COVID-19 Crohn's disease Depression with anxiety End-stage renal disease on hemodialysis Erythropoietin deficiency anemia Gastroesophageal reflux disease History of kidney stones Hypertension Hypothyroidism Normal colonoscopy (08/2019) Obstructive sleep apnea No longer using CPAP after 40 lb weight loss. Pericardial effusion (~01/2020) Small pericardial effusion on echocardiogram, felt to be related to uremia. Peripheral vascular disease Peritonitis (~01/2020) Renal cell carcinoma (~2004) Renal osteodystrophy Restless leg syndrome Shingles (~1991) Surgical History Surgical History History of appendectomy History of bilateral carpal tunnel release History of cardiac catheterization With stent x3. History of cholecystectomy History of colonoscopy History of cystoscopy With ureteral stents for kidney stones. History of foot surgery Repair of left foot fracture with pinning. History of hysterectomy (~1976) With cystocele and rectocele repairs. History of partial nephrectomy (~2004) Left partial nephrectomy for kidney cancer. History of tonsillectomy Family History Family History Father Renal cell carcinoma Acute myocardial infarction Cerebrovascular accident Colon polyp Heart disease Hypertension Mother Lung cancer Acut
--- NOTE | 2021-12-02 19:06 | ADMGEN ---
This patient, Layla Maher, was admitted to Intensive Care Unit-2. Patient/family oriented to hospital policies and general routines including ID bracelet, bed and alarms, visiting hours, pain management, procedures, bathroom and other care routines, personal items, smoking policy, room service/diet, and visiting hours. Information on how to activate the Rapid Response Team has been discussed. Patient/Family are encouraged to report perceived risks to care and to ask questions if they do not understand what they are told or what they should do. Report received from veneer puller. VS stable. 1.6L removed
--- NOTE | 2021-12-02 19:28 | ECG_ITS ---
Rate ME QRSd QT QTc P QRS T 113 139 91 351 482 -28 -32 48 SINUS TACHYCARDIA ATRIAL COUPLET AND FREQUENT ATRIAL PREMATURE COMPLEXES LEFT AXIS DEVIATION DELAYED PRECORDIAL R/S TRANSITION BASELINE WANDER- II, III ABNORMAL ECG COMPARED TO ECG 12/02/2021 12:54:54 LEFT ANTERIOR FASCICULAR BLOCK HAS RESOLVED Electronically Signed On 12-04-2021 7:45:44 CDT by Brennen MCCARTHY
[2021-12-03] VITALS (11 sets, daily range): BP systolic 135–168; BP diastolic 49–91; PULSE 70–109; RESP 14–24; TEMP 36.6–36.8; O2SAT 93–100
--- NOTE | 2021-12-03 02:36 | ECHO_ITS ---
Patient Info Name: Layla Maher Age: 76 years : 1945 Gender: Female Ht: 63 in Wt: 166 lbs BSA: 1.85 m2 HR: 90 bpm BP: 153 / 59 mmHg Heart Rhythm: Sinus Rhythm Technical Quality: Fair Exam Date: 12/03/2021 8:03 AM Exam Location: [facility] Patient Status: Outpatient Admit Date: 12/02/2021 Staff Ordering Physician: Yvette Macias PA-C Lye Peel Operator: Alize Hodges RDCS Attending Provider: Chrissy Oneal DO Referring Physician: Gilberto BARRON; Exam Type: CA echo doppler color flow Study Info Indications - atrial tachycardia/RVR, elevated troponin Complete two-dimensional, color flow and Doppler transthoracic echocardiogram is performed. Summary 1. Complete two-dimensional, color flow and Doppler transthoracic echocardiogram is performed. 2. Ventricular size with moderate concentric hypertrophy. Good systolic function of all segments with no segmental wall motion abnormalities. Diastolic dysfunction is present. Ejection fraction is 64%. 3. Left atrial chamber dimension is moderately enlarged. 4. There is mild to moderate mitral valve regurgitation. 5. Moderate pulmonary hypertension, estimated pulmonary arterial systolic pressure is 48 mmHg. 6. There is trivial pericardial effusion. 7. Normal sinus rhythm. Left Ventricle Left ventricular chamber dimension is normal. Left ventricular systolic function is normal, estimated at 60-65%. There is moderately increased left ventricular wall thickness. Left ventricular septal wall motion is normal. The left ventricular diastolic function is abnormal. Right Ventricle Right ventricular chamber dimension is normal. Right ventricular systolic function is normal. Left Atria Left atrial chamber dimension is moderately enlarged. Right Atria Right atrial chamber dimension is normal. Aortic Valve The aortic valve is trileaflet. There is mild aortic valve sclerosis. There is no aortic valve stenosis. There is no aortic valve regurgitation. Pulmonic Valve The pulmonic valve is normal. There is no pulmonic valve stenosis. There is trace pulmonic regurgitation. Mitral Valve The mitral valve has normal leaflets. There is no mitral valve stenosis. There is mild to moderate mitral valve regurgitation. The mitral valve annulus is moderately calcified. Tricuspid Valve The tricuspid valve leaflets are normal. There is no significant tricuspid valve stenosis. There is trace tricuspid valve regurgitation. Moderate pulmonary hypertension, estimated pulmonary arterial systolic pressure is 48 mmHg. Pericardium/Pleural The pericardium appears normal. There is trivial pericardial effusion. Inferior Vena Cava Normal inferior vena cava with >50% collapse upon inspiration consistent with Empty right atrial pressure, 10 mmHg. Aorta The aortic root size at the sinus of Valsalva is normal. The prox ascending aorta size is normal. Left Ventricular Outflow Tract Name Value Normal LVOT 2D LVOT Diameter 2.0 cm LVOT Doppler LVOT Peak Gradient 6 mmHg LVOT Mean Gradient 3 mm
[2021-12-03 04:56] LABS: Hematocrit 25.4 % (37.0-47.0); Hemoglobin 7.6 g/dL (12.0-15.0); Mean Corpuscular HGB Conc 29.9 g/dl (32-36); Mean Corpuscular Hemoglobin 30.3 pg (26-34); Mean Corpuscular Volume 101.2 fl (80-100); Mean Platelet Volume 9.3 fl (7.4-10.4); Platelet Count Result 223 k/mm3 (150-375); Red Blood Count 2.51 M/mm3 (4.2-5.4); Red Cell Distribution Width 15.9 % (11.5-14.5); White Blood Count 9.9 K/mm3 (4.5-10.0)
[2021-12-03 05:11] LABS: Alanine Aminotransferase 16 U/L (6-35); Albumin Level 3.6 g/dL (3.5-5.1); Alkaline Phosphatase 110 U/L (38-126); Anion Gap 14 mmol/L (8-16); Aspartate Amino Transferase 26 U/L (14-36); Bilirubin,Total 0.6 mg/dL (0.2-1.3); Blood Urea Nitrogen 36 mg/dL (7-17); Calcium 8.5 mg/dL (8.4-10.2); Carbon Dioxide 26 mmol/L (22-30); Chloride 101 mmol/L (98-107); Estimated CRCL calculation 8 ml/min; Estimated Glomerular Filt Rate 8; Glucose 129 mg/dL (65-110); Magnesium 1.7 mg/dL (1.6-2.3); Phosphorus 3.7 mg/dL (2.5-4.5); Potassium 4.4 mmol/L (3.4-5.0); Sodium 141 mmol/L (137-145)
[2021-12-03] MEDS: oxyCODONE HCL (*CRX) 5 MG TAB IR PO (06:17)
[2021-12-03] MEDS: LEVOTHYROXINE SODIUM 75 MCG TABLET PO (06:17)
--- NOTE | 2021-12-03 08:14 | PM.PNNEP ---
Progress Note: A&P Assessment and Plan (1) End stage renal disease: Code(s): N18.6 - End stage renal disease Status: Chronic Assessment and Plan: Layla has end-stage renal disease. She has been on dialysis for few years. It is due to diabetes and hypertension. She gets dialysis Wednesdays and Fridays. She is due tomorrow. (2) Pulmonary edema: Code(s): J81.1 - Chronic pulmonary edema Status: Acute Assessment and Plan: Lungs sound more clear today. Fluid was removed in dialysis yesterday. (3) Generalized anxiety disorder: Code(s): F41.1 - Generalized anxiety disorder Status: Acute Assessment and Plan: The patient is very anxious right now. (4) Atherosclerotic heart disease of [place] coronary artery without angina pectoris: Code(s): I25.10 - Atherosclerotic heart disease of [place] coronary artery without angina pectoris Status: Acute Assessment and Plan: She is not having any chest pain. She has positive troponins. Echo has been ordered. Cardiology consult is requested. She got a dose of Lovenox last night. (5) Type 2 diabetes mellitus with diabetic polyneuropathy: Code(s): E11.42 - Type 2 diabetes mellitus with diabetic polyneuropathy Status: Acute Assessment and Plan: She is on medications per hospitalist (6) Pure hypercholesterolemia, unspecified: Code(s): E78.00 - Pure hypercholesterolemia, unspecified Status: Acute Assessment and Plan: she is on simvastatin (7) BEKA (obstructive sleep apnea): Code(s): G47.33 - Obstructive sleep apnea (adult) (pediatric) Status: Chronic Assessment and Plan: she does not use a CPAP machine anymore because she lost a lot of weight. (8) Hypothyroidism: Code(s): E03.9 - Hypothyroidism, unspecified Status: Chronic Assessment and Plan: She is on supplements. Will check a TSH (9) Hypertensive chronic kidney disease with stage 5 chronic kidney disease or end stage renal disease: Code(s): I12.0 - Hypertensive chronic kidney disease with stage 5 chronic kidney disease or end stage renal disease Status: Acute Assessment and Plan: her blood pressure is high now. She is getting some clonidine and fluid removal. (10) Erythropoietin deficiency anemia: Code(s): D63.1 - Anemia in chronic kidney disease Status: Acute Assessment and Plan: the patient's hemoglobin was okay when she came in but has dropped to 7.6. Repeat is pending. She is on Epogen. Iron studies are ordered. (11) Renal osteodystrophy: Code(s): N25.0 - Renal osteodystrophy Status: Acute Assessment and Plan: Phosphorus level is normal Subjective Date/time seen: 12/03/21 08:14 Interval history: Patient is feeling better today. No shortness of breath. Heart rate is down. Review of Systems Cardiovascular: Cardiovascular: Reports no additional cardiovascular complaints Respiratory: Respiratory: Reports no additional respiratory complaints Gastrointestinal: Gastrointestinal: Reports no additional gastrointestinal complaints Genitourinary: Genitourinary: Reports no additional female genitourinary complaints Exam Narrative: WDWN in NAD skin no rash head ncat lungs clear cor reg no rub abd BS+ nontender and soft ext no edema. Objective Data Vital Signs Vital Signs: Vital Signs - 24 hr 12/02/21 10:48 12/02/21 11:11 12/02/21 11:42 Temperature 36.9 C Pulse Rate 155 H 143 H Respiratory Rate 33 H 16 Blood Pressure 223/98 H 204/90 H Pulse Oximetry 94 94 93 Oxygen Delivery Nasal Cannula Oxygen Flow Rate 2 12/02/21 11:45 12/02/21 11:46 12/02/21 12:00 Temperature Pulse Rate 140 H 139 H 137 H Respiratory Rate 28 H 27 H 31 H Blood Pressure 204/79 H Pulse Oximetry 93 94 93 Oxygen Delivery Oxygen Flow Rate
[2021-12-03 08:23] LABS: Basophils Percent Auto 0.2 % (0.2-1.2); Eosinophils Absolute Auto 0.4 K/mm3 (0-0.3); Hematocrit 23.8 % (37.0-47.0); Hemoglobin 7.1 g/dL (12.0-15.0); Immature Granulocyte Absolute 0.05 K/mm3 (0.00-0.031); Immature Granulocyte Percent A 0.5 % (0-0.5); Lymphocytes Absolute Auto 1.16 K/mm3 (0.9-3.2); Lymphocytes Percent Auto 12.5 % (18.3-44.2); Mean Corpuscular HGB Conc 29.8 g/dl (32-36); Mean Corpuscular Hemoglobin 30.3 pg (26-34); Mean Corpuscular Volume 101.7 fl (80-100); Mean Platelet Volume 8.6 fl (7.4-10.4); Monocytes Absolute Auto 0.7 K/mm3 (0.1-0.6); Monocytes Percent Auto 7.9 % (2.6-8.5); Neutrophils Absolute Auto 6.9 K/mm3 (1.3-6.7); Neutrophils Percent Auto 74.9 % (45.5-73.1); Platelet Count Result 182 k/mm3 (150-375); Red Blood Count 2.34 M/mm3 (4.2-5.4); White Blood Count 9.3 K/mm3 (4.5-10.0)
[2021-12-03 08:35] LABS: Iron 22 ug/dL (37-170)
[2021-12-03 08:36] LABS: Glucose Point of Care 115 mg/dl (65-105)
[2021-12-03] MEDS: PSYLLIUM POWDER PACKET 1 PACKET BY MOUTH (08:36)
[2021-12-03] MEDS: CHOLECALCIFEROL 1,000 UNITS TABLET 2000 UNITS PO (08:36)
[2021-12-03] MEDS: allopurinoL 300 MG TABLET PO (08:37)
[2021-12-03] MEDS: lisinopriL 20 MG TABLET PO (08:37)
[2021-12-03] MEDS: busPIRone HCL 10 MG TABLET PO ×2 (08:37→17:20)
[2021-12-03] MEDS: THERAPEUTIC MULTIVITAMINS/MINERALS TAB (*BKC) 1 TABLET PO (08:37)
[2021-12-03] MEDS: SERTRALINE HCL 50 MG TABLET 100 MG PO (08:37)
[2021-12-03] MEDS: SODIUM BICARBONATE TAB 650 MG TABLET PO ×2 (08:37→17:20)
--- NOTE | 2021-12-03 08:38 | PM.IMPN ---
Progress Note: A&P Assessment and Plan (1) Allergic reaction caused by a drug: Code(s): T78.40XA - Allergy, unspecified, initial encounter Status: Acute Assessment and Plan: Patient started having shortness of breath and chest discomfort after receiving intramuscular ceftriaxone in the right upper extremity. She also found that she could not move her upper extremities bilaterally, she was also hypertensive in the ER with blood pressure of 223/98 -patient did get dialyzed improvement on her symptoms -currently denies any shortness of breath, chest discomfort. Is able to move upper extremities -continue to monitor (2) End-stage renal disease on hemodialysis: Code(s): N18.6 - End stage renal disease; Z99.2 - Dependence on renal dialysis Status: Acute Assessment and Plan: End-stage renal disease on dialysis, likely related to diabetes and essential hypertension. She gets her dialysis on Mondays, Wednesdays and Fridays -nephrology following -dialysis per Nephrology (3) Volume overload: Code(s): E87.70 - Fluid overload, unspecified Status: Acute Assessment and Plan: Patient was found to have volume overload/pulmonary edema on admission. Could be related to an allergic reaction to the medications, end-stage renal disease -lungs much clear today -O2 sats have been good on room air (4) Hypertension: Code(s): I10 - Essential (primary) hypertension Status: Acute Assessment and Plan: Essential hypertension, patient's blood pressures have been labile according to her. -continue lisinopril -cardiology is evaluating her, may require small dose of beta-sunny given her atrial flutter/fibrillation (5) Anemia of chronic disease: Code(s): D63.8 - Anemia in other chronic diseases classified elsewhere Status: Acute Assessment and Plan: Patient with anemia of chronic disease, she does take iron pills/injections -iron panel does reflect anemia of chronic disease -will discuss with Nephrology regarding erythropoietin/Epogen with dialysis (6) Type 2 diabetes mellitus with diabetic polyneuropathy: Code(s): E11.42 - Type 2 diabetes mellitus with diabetic polyneuropathy Status: Acute Assessment and Plan: Continue sliding scale insulin and Accu-Cheks -continue Lantus (7) Elevated troponin: Code(s): R77.8 - Other specified abnormalities of plasma proteins Status: Acute Assessment and Plan: Elevated troponins, plateaued -could be related to atrial flutter/fibrillation RVR on EKG on admission, malignant hypertension -cardiology was consulted (8) Hypothyroidism: Code(s): E03.9 - Hypothyroidism, unspecified Status: Chronic Assessment and Plan: Continue levothyroxine (9) Pure hypercholesterolemia, unspecified: Code(s): E78.00 - Pure hypercholesterolemia, unspecified Status: Acute Assessment and Plan: Continue simvastatin Plan DVT prophylaxis: SCDs given anemia Stress ulcer prophylaxis: Patient on home famotidine Nutrition: Renal diet Code Status: Do not resuscitate Due to a high probability of clinically significant, life threatening deterioration, the patient required my highest level of preparedness to intervene emergently and I personally spent this critical care time directly and personally managing the patient. This critical care time included obtaining a history; examining the patient; pulse oximetry; ordering and review of studies; arranging urgent treatment with development of a management plan; evaluation of patient's response to treatment; frequent reassessment; and discussions with other providers. It was exclusive of separately billable procedures and treating other patients and teaching time. Please see Assessment and Plan section and the rest of the note for further information on patient assessment and treatment Subjective Date/time seen: 12/03/21 08:38 Inte
[2021-12-03] MEDS: rOPINIRole HCL 0.25 MG TABLET PO ×2 (08:44→17:20)
[2021-12-03 08:45] LABS: Percent Iron Saturation 8 % (20-50)
[2021-12-03 08:55] LABS: Anisocytosis 1+ (NORMAL); Platelet Estimate Adequate (Adequate); Poikilocytosis 1+ (NORMAL)
--- NOTE | 2021-12-03 09:13 | PM.CNCAR ---
Assessment and Plan Assessment and plan (1) Atrial flutter by electrocardiogram: Code(s): I48.92 - Unspecified atrial flutter <Lilia NielsenJONATHAN bates - Last Filed: 12/03/21 14:37> Status: Acute <Lilia ClarkJONATHAN - Last Filed: 12/03/21 14:37> Assessment and Plan: Possible atrial flutter with RVR demonstrated on EKG yesterday at admission. While EKG tracing suspicious for atrial flutter cannot confirm. She is back to sinus rhythm after being dialyzed, remains in sinus rhythm. No history of atrial arrhythmias, not describing any symptoms prior to admission that raise concern for atrial fib/flutter. Would continue to monitor on telemetry for any Aflutter/fib, if she does have any would need to consider anticoagulation, though would be cautious as she is anemic. <Lilia Vallecillo AmebrJONATHAN bates - Last Filed: 12/03/21 14:37> (2) Elevated troponin: Code(s): R77.8 - Other specified abnormalities of plasma proteins <Lilia AngieDana AmberJONATHAN bates - Last Filed: 12/03/21 14:37> Status: Acute <Lilia A. AmberJONATHAN bates - Last Filed: 12/03/21 14:37> Assessment and Plan: Troponin levels have been elevated (0.056, 0.364, 1.470, and 1.41). She denies having any chest pain. Likely elevated secondary to tachycardia, hypertension, CKD. Doubt ACS. She does have a history of CAD, had negative Dobutamine stress test in 2020. Could consider repeat outpatient stress testing. <JNOATHAN Jolly - Last Filed: 12/03/21 14:37> (3) CHF (congestive heart failure): Code(s): I50.9 - Heart failure, unspecified <JONATHAN Jolly - Last Filed: 12/03/21 14:37> Status: Acute <JONATHAN Jolly - Last Filed: 12/03/21 14:37> Assessment and Plan: Some evidence of CHF with CXR showing pulmonary edema and BNP 10,500. Seems euvolemic on exam now after having volume removed with dialysis yesterday. Echo pending. <JONATHAN Jolly - Last Filed: 12/03/21 14:37> (4) End-stage renal disease on hemodialysis: Code(s): N18.6 - End stage renal disease; Z99.2 - Dependence on renal dialysis <JONATHAN Jolly - Last Filed: 12/03/21 14:37> Status: Acute <JONATHAN Jolly - Last Filed: 12/03/21 14:37> Assessment and Plan: On HD. Followed by Dr. Joe. <JONATHAN Jolly - Last Filed: 12/03/21 14:37> On HD. Followed by Dr. Joe. <Noris Holden MD - Last Filed: 12/03/21 16:33> Assessment and Plan: Attending Physician: I have obtained a history, examined the patient and reviewed the records. Agree w/ Lilia Clark's assessment and plan. History as above, sudden onset total-body stiffness , arm pain, tachycardia and shortness of breath Temporally associated with an IM injection of Rocephin. Resolved after dialysis. No other episodes of chest pain or tachycardia. On exam the patient is alert pleasant and chatty, no distress, heart is regular rate rhythm, lungs clear, abdomen soft, no edema. 12/02/2021 EKG at 10:39 a.m. shows sinus tachycardia rate 137, no acute ischemic changes. ( done in the field? ) 12/02/2021 EKG at 10:55 a.m. a.m.: Read as atrial flutter /tachycardia with RVR, left axis deviation. On my review I cannot confirm this is atrial flutter, may be sinus tachycardia or an atrial tachycardia. Baseline artifact. 12/02/2021 EKG at 12:54 p.m.: Sinus tachycardia rate 135, left axis deviation, no ischemic changes. 12/02/2021 EKG at 6:49 p.m.: Sinus tachycardia rate 119, APCs, left axis deviation Rhythm strips reviewed, sinus rhythm/sinus tachycardia. Telemetry reviewed, starting yesterday afternoon, just sinus tachycardia gradually becoming sinus rhythm with APCs. Echo, labs reviewed. Elevated trop noted. up to 1.4, ProBNP 10,500. Impression 1. Possible allergic reaction 2. Tachycardia. I have not found any rhythm strips or EKGs that are convincing for atrial flutter. Looks like just sinus tachycardia. Would
[2021-12-03] MEDS: LOPERAMIDE HCL 2 MG CAPSULE PO ×2 (10:09→20:23)
[2021-12-03] MEDS: INSULIN ASPART (*BKC) 100 UNITS/ML SUB-Q (12:35)
[2021-12-03 12:44] LABS: Glucose Point of Care 239 mg/dl (65-105)
[2021-12-03 13:27] LABS: IFOB Positive Control Positive; Immunochemical Fecal Occult Bl Negative (N)
[2021-12-03 17:26] LABS: Glucose Point of Care 137 mg/dl (65-105)
[2021-12-03] MEDS: SIMVASTATIN 10 MG TABLET PO (20:23)
[2021-12-03 21:19] LABS: Glucose Point of Care 198 mg/dl (65-105)
[2021-12-04] VITALS (21 sets, daily range): BP systolic 105–183; BP diastolic 48–94; PULSE 82–112; RESP 14–22; TEMP 36.8–37.3; O2SAT 93–96
[2021-12-04] MEDS: LEVOTHYROXINE SODIUM 75 MCG TABLET PO (06:23)
[2021-12-04 07:23] LABS: Glucose Point of Care 132 mg/dl (65-105)
--- NOTE | 2021-12-04 08:10 | PC.NURSE ---
PATIENT TAKEN TO DIALYSIS PER BED.
--- NOTE | 2021-12-04 11:02 | PM.PNNEP ---
Progress Note: A&P Assessment and Plan (1) End stage renal disease: Code(s): N18.6 - End stage renal disease Status: Chronic Assessment and Plan: Layla has end-stage renal disease. She has been on dialysis for few years. It is due to diabetes and hypertension. She gets dialysis Wednesdays and Fridays. she is on dialysis currently. (2) Pulmonary edema: Code(s): J81.1 - Chronic pulmonary edema Status: Acute Assessment and Plan: Lungs sound more clear Repeat chest x-ray still shows some fluid. Will take some fluid off in dialysis. (3) Generalized anxiety disorder: Code(s): F41.1 - Generalized anxiety disorder Status: Acute Assessment and Plan: The patient is very anxious right now. (4) Atherosclerotic heart disease of [place] coronary artery without angina pectoris: Code(s): I25.10 - Atherosclerotic heart disease of [place] coronary artery without angina pectoris Status: Acute Assessment and Plan: She is not having any chest pain. She has positive troponins. Echo Shows normal LVEF, moderate pulmonary hypertension, and mild to moderate mitral valve regurgitation. She has left atrial enlargement as well. Cardiology seeing about her rapid heart rate. Considering anticoagulants. Notably, she has fallen twice in the last few months. also consider an outpatient stress test. (5) Type 2 diabetes mellitus with diabetic polyneuropathy: Code(s): E11.42 - Type 2 diabetes mellitus with diabetic polyneuropathy Status: Acute Assessment and Plan: She is on medications per hospitalist (6) Pure hypercholesterolemia, unspecified: Code(s): E78.00 - Pure hypercholesterolemia, unspecified Status: Acute Assessment and Plan: she is on simvastatin (7) BEKA (obstructive sleep apnea): Code(s): G47.33 - Obstructive sleep apnea (adult) (pediatric) Status: Chronic Assessment and Plan: she does not use a CPAP machine anymore because she lost a lot of weight. (8) Hypothyroidism: Code(s): E03.9 - Hypothyroidism, unspecified Status: Chronic Assessment and Plan: She is on supplements. Will check a TSH (9) Hypertensive chronic kidney disease with stage 5 chronic kidney disease or end stage renal disease: Code(s): I12.0 - Hypertensive chronic kidney disease with stage 5 chronic kidney disease or end stage renal disease Status: Acute Assessment and Plan: her blood pressure is high now. She is getting some clonidine and fluid removal. (10) Erythropoietin deficiency anemia: Code(s): D63.1 - Anemia in chronic kidney disease Status: Acute Assessment and Plan: the patient's hemoglobin was okay when she came in but has dropped to 7.6. Repeat is pending. She is on Epogen. Iron studies are ordered. (11) Renal osteodystrophy: Code(s): N25.0 - Renal osteodystrophy Status: Acute Assessment and Plan: Phosphorus level is normal Subjective Date/time seen: 12/04/21 11:02 Interval history: Patient is feeling better today. the patient is on dialysis and tolerating it well. She was seen at 11:05 a.m. Exam Narrative: WDWN in NAD skin no rash or nodules head ncat lungs clear to ausc cor reg no rub or gallop abd BS+ nontender and soft ext no edema. Objective Data Vital Signs Vital Signs: Vital Signs - 24 hr 12/03/21 16:00 12/03/21 20:00 12/03/21 22:00 Temperature 36.7 C 36.7 C Pulse Rate 94 90 Respiratory Rate 16 18 Blood Pressure 168/70 H 163/68 H Pulse Oximetry 98 98 98 Oxygen Delivery Room Air 12/04/21 06:21 12/03/21 19:55 12/04/21 07:25 Temperature 37.2 C 37.2 C Pulse Rate 99 Respiratory Rate 16 14 Blood Pressure 166/68 H 183/70 H Pulse Oximetry 95 98 96 Oxygen Delivery Room Air 12/04/21 08:00 12/04/21 08:08 12/04/21 08:17 Temperature 36.8
[2021-12-04] MEDS: EPOETIN ALFA-EPBX 10,000 UNITS/ML VIAL 10000 UNITS IV PUSH (11:45)
[2021-12-04] MEDS: SODIUM CHLORIDE 0.9% IV 1,000 ML 999 ML IV CONT (11:46)
[2021-12-04] MEDS: allopurinoL 300 MG TABLET PO (12:27)
[2021-12-04] MEDS: busPIRone HCL 10 MG TABLET PO ×2 (12:27→18:20)
[2021-12-04] MEDS: LOPERAMIDE HCL 2 MG CAPSULE PO ×2 (12:28→20:00)
[2021-12-04] MEDS: CHOLECALCIFEROL 1,000 UNITS TABLET 2000 UNITS PO (12:28)
[2021-12-04] MEDS: lisinopriL 20 MG TABLET PO (12:28)
[2021-12-04] MEDS: THERAPEUTIC MULTIVITAMINS/MINERALS TAB (*BKC) 1 TABLET PO (12:28)
[2021-12-04] MEDS: SERTRALINE HCL 50 MG TABLET 100 MG PO (12:29)
[2021-12-04] MEDS: SODIUM BICARBONATE TAB 650 MG TABLET PO ×2 (12:29→18:21)
[2021-12-04] MEDS: rOPINIRole HCL 0.25 MG TABLET PO ×2 (12:29→18:21)
[2021-12-04] MEDS: PSYLLIUM POWDER PACKET 1 PACKET BY MOUTH (12:29)
[2021-12-04 12:47] LABS: Glucose Point of Care 168 mg/dl (65-105)
[2021-12-04 13:05] LABS: Basophils Percent Auto 0.2 % (0.2-1.2); Eosinophils Absolute Auto 0.4 K/mm3 (0-0.3); Eosinophils Percent Auto 3.7 % (0-4.4); Hematocrit 27.6 % (37.0-47.0); Hemoglobin 8.5 g/dL (12.0-15.0); Immature Granulocyte Absolute 0.05 K/mm3 (0.00-0.031); Immature Granulocyte Percent A 0.5 % (0-0.5); Lymphocytes Absolute Auto 0.71 K/mm3 (0.9-3.2); Lymphocytes Percent Auto 7.6 % (18.3-44.2); Mean Corpuscular HGB Conc 30.8 g/dl (32-36); Mean Corpuscular Hemoglobin 30.2 pg (26-34); Mean Corpuscular Volume 98.2 fl (80-100); Mean Platelet Volume 9.1 fl (7.4-10.4); Monocytes Absolute Auto 0.8 K/mm3 (0.1-0.6); Monocytes Percent Auto 8.4 % (2.6-8.5); Neutrophils Absolute Auto 7.4 K/mm3 (1.3-6.7); Neutrophils Percent Auto 79.6 % (45.5-73.1); Platelet Count Result 209 k/mm3 (150-375); Red Blood Count 2.81 M/mm3 (4.2-5.4); Red Cell Distribution Width 15.4 % (11.5-14.5); White Blood Count 9.3 K/mm3 (4.5-10.0)
--- NOTE | 2021-12-04 13:10 | PM.IMPN ---
Progress Note: A&P Assessment and Plan (1) Allergic reaction caused by a drug: Code(s): T78.40XA - Allergy, unspecified, initial encounter Status: Acute Assessment and Plan: Patient started having shortness of breath and chest discomfort after receiving intramuscular ceftriaxone in the right upper extremity. Feeling better already. (2) End-stage renal disease on hemodialysis: Code(s): N18.6 - End stage renal disease; Z99.2 - Dependence on renal dialysis Status: Acute Assessment and Plan: End-stage renal disease on dialysis, likely related to diabetes and essential hypertension. She gets her dialysis on Mondays, Wednesdays and Fridays -nephrology following -dialysis per Nephrology (3) Volume overload: Code(s): E87.70 - Fluid overload, unspecified Status: Acute Assessment and Plan: Patient was found to have volume overload/pulmonary edema on admission. Could be related to an allergic reaction to the medications, end-stage renal disease -lungs much clear today -O2 sats have been good on room air (4) Hypertension: Code(s): I10 - Essential (primary) hypertension Status: Acute Assessment and Plan: Essential hypertension, patient's blood pressures have been labile according to her. -continue lisinopril -cardiology is evaluating her, may require small dose of beta-sunny given her atrial flutter/fibrillation (5) Anemia of chronic disease: Code(s): D63.8 - Anemia in other chronic diseases classified elsewhere Status: Acute Assessment and Plan: Patient with anemia of chronic disease, she does take iron pills/injections -iron panel does reflect anemia of chronic disease -will discuss with Nephrology regarding erythropoietin/Epogen with dialysis (6) Type 2 diabetes mellitus with diabetic polyneuropathy: Code(s): E11.42 - Type 2 diabetes mellitus with diabetic polyneuropathy Status: Acute Assessment and Plan: Continue sliding scale insulin and Accu-Cheks -continue Lantus (7) Elevated troponin: Code(s): R77.8 - Other specified abnormalities of plasma proteins Status: Acute Assessment and Plan: Elevated troponins, plateaued -could be related to atrial flutter/fibrillation RVR on EKG on admission, malignant hypertension -cardiology was consulted (8) Hypothyroidism: Code(s): E03.9 - Hypothyroidism, unspecified Status: Chronic Assessment and Plan: Continue levothyroxine (9) Pure hypercholesterolemia, unspecified: Code(s): E78.00 - Pure hypercholesterolemia, unspecified Status: Acute Assessment and Plan: Continue simvastatin Subjective Date/time seen: 12/04/21 13:10 No shortness of breaths Exam Narrative: General: Pleasant female in no acute distress HEENT:? Moist oral mucosa, pupils equal and reactive, sclera is clear Neck:? Supple, no lymphadenopathy Respiratory:? Clear to auscultation bilaterally, no wheezing, adequate air entry Cardiac:? Currently in sinus rhythm, rate controlled Abdomen:? Soft, nontender, nondistended, normoactive bowel sounds Extremities:? Left lower extremity in immobilizer, able to move left ankle joint wiggle her toes on the left foot. No edema Neuro:? Patient is awake, alert, oriented, nonfocal Skin: Warm and dry Psych:? Normal mentation and affect Objective Data Vital Signs Vital Signs: Vital Signs - 24 hr 12/03/21 16:00 12/03/21 20:00 12/03/21 22:00 Temperature 98.1 F 98.1 F Pulse Rate 94 90 Respiratory Rate 16 18 Blood Pressure 168/70 H 163/68 H Pulse Oximetry 98 98 98 Oxygen Delivery Room Air 12/04/21 06:21 12/03/21 19:55 12/04/21 07:25 Temperature 98.9 F 98.9 F Pulse Rate 99 Respiratory Rate 16 14 Blood Pressure 166/68 H 183/70 H Pulse Oximetry 95 98 96 Oxygen Delivery Room Air 12/04/21 08:00 12/04/21 08:08 12/04/21 08:17 Temperature 98.2 F Pulse Rate 88 95 86 Respiratory Rate 22
[2021-12-04 13:21] LABS: Alanine Aminotransferase 17 U/L (6-35); Albumin Level 4.1 g/dL (3.5-5.1); Alkaline Phosphatase 133 U/L (38-126); Anion Gap 13 mmol/L (8-16); Aspartate Amino Transferase 24 U/L (14-36); Bilirubin,Total 0.9 mg/dL (0.2-1.3); Blood Urea Nitrogen 14 mg/dL (7-17); Calcium 8.7 mg/dL (8.4-10.2); Carbon Dioxide 31 mmol/L (22-30); Chloride 95 mmol/L (98-107); Estimated CRCL calculation 19 ml/min; Estimated Glomerular Filt Rate 21; Glucose 160 mg/dL (65-110); Magnesium 1.8 mg/dL (1.6-2.3); Phosphorus 2.3 mg/dL (2.5-4.5); Potassium 3.7 mmol/L (3.4-5.0); Sodium 139 mmol/L (137-145)
[2021-12-04 16:29] LABS: Glucose Point of Care 216 mg/dl (65-105)
[2021-12-04 18:26] LABS: Glucose Point of Care 153 mg/dl (65-105)
[2021-12-04] MEDS: SIMVASTATIN 10 MG TABLET PO (20:00)
[2021-12-04] MEDS: MELATONIN 3 MG TABLET PO (20:11)
[2021-12-04] MEDS: oxyCODONE HCL (*CRX) 5 MG TAB IR PO (20:11)
[2021-12-04 20:18] LABS: Glucose Point of Care 193 mg/dl (65-105)
[2021-12-05 01:55] VITALS: BP 139/48; PULSE 84; RESP 18; TEMP 36.6; O2SAT 93
[2021-12-05 04:31] LABS: Albumin Level 3.4 g/dL (3.5-5.1); Anion Gap 8 mmol/L (8-16); Blood Urea Nitrogen 27 mg/dL (7-17); Calcium 8.4 mg/dL (8.4-10.2); Carbon Dioxide 34 mmol/L (22-30); Chloride 98 mmol/L (98-107); Estimated CRCL calculation 11 ml/min; Estimated Glomerular Filt Rate 11; Glucose 125 mg/dL (65-110); Phosphorus 3.4 mg/dL (2.5-4.5); Potassium 4.1 mmol/L (3.4-5.0); Sodium 140 mmol/L (137-145)
[2021-12-05] MEDS: LEVOTHYROXINE SODIUM 75 MCG TABLET PO (06:33)
--- NOTE | 2021-12-05 07:43 | PM.PNNEP ---
Progress Note: A&P Assessment and Plan (1) End stage renal disease: Code(s): N18.6 - End stage renal disease Status: Chronic Assessment and Plan: Layla has end-stage renal disease. It is due to diabetes and hypertension. she is due for dialysis tomorrow. (2) Pulmonary edema: Code(s): J81.1 - Chronic pulmonary edema Status: Acute Assessment and Plan: Lungs sound more clear Repeat chest x-ray still shows some fluid. 3L removed in dialysis yesterday. (3) Generalized anxiety disorder: Code(s): F41.1 - Generalized anxiety disorder Status: Acute Assessment and Plan: The patient is much calmer now. (4) Atherosclerotic heart disease of [place] coronary artery without angina pectoris: Code(s): I25.10 - Atherosclerotic heart disease of [place] coronary artery without angina pectoris Status: Acute Assessment and Plan: She is not having any chest pain. She has positive troponins. Echo Shows normal LVEF, moderate pulmonary hypertension, and mild to moderate mitral valve regurgitation. She has left atrial enlargement as well. Cardiology seeing about her rapid heart rate. Their recs: Considering changing to atorvastatin 40. No anticoagulation needed. (5) Type 2 diabetes mellitus with diabetic polyneuropathy: Code(s): E11.42 - Type 2 diabetes mellitus with diabetic polyneuropathy Status: Acute Assessment and Plan: She is on medications per hospitalist (6) Pure hypercholesterolemia, unspecified: Code(s): E78.00 - Pure hypercholesterolemia, unspecified Status: Acute Assessment and Plan: she is on simvastatin . Change to atorvastatin. (7) BEKA (obstructive sleep apnea): Code(s): G47.33 - Obstructive sleep apnea (adult) (pediatric) Status: Chronic Assessment and Plan: she does not use a CPAP machine anymore because she lost a lot of weight. (8) Hypothyroidism: Code(s): E03.9 - Hypothyroidism, unspecified Status: Chronic Assessment and Plan: She is on supplements. Will check a TSH (9) Hypertensive chronic kidney disease with stage 5 chronic kidney disease or end stage renal disease: Code(s): I12.0 - Hypertensive chronic kidney disease with stage 5 chronic kidney disease or end stage renal disease Status: Acute Assessment and Plan: her blood pressure is high now. She is getting some clonidine and fluid removal. (10) Erythropoietin deficiency anemia: Code(s): D63.1 - Anemia in chronic kidney disease Status: Acute Assessment and Plan: the patient's hemoglobin was okay when she came in but has dropped to 7.6. Repeat is pending. She is on Epogen. Iron studies are ordered. (11) Renal osteodystrophy: Code(s): N25.0 - Renal osteodystrophy Status: Acute Assessment and Plan: Phosphorus level is normal Subjective Date/time seen: 12/05/21 07:43 Interval history: Patient is feeling better today. Eager to go back to [facility]. She is excited that Dr. Mcclain can continue care. Exam Narrative: WDWN in NAD skin no rash or nodules head ncat lungs clear bilaterally cor reg no rub or gallop abd BS+ nontender and soft ext no edema or cyanosis. Objective Data Vital Signs Vital Signs: Vital Signs - 24 hr 12/04/21 08:00 12/04/21 08:08 12/04/21 08:17 Temperature 36.8 C Pulse Rate 88 95 86 Respiratory Rate 22 H 18 Blood Pressure 134/74 168/86 H Pulse Oximetry 94 Oxygen Delivery Room Air 12/04/21 08:40 12/04/21 09:00 12/04/21 09:20 Temperature Pulse Rate 96 96 106 H Respiratory Rate Blood Pressure 160/77 H 164/76 H 154/71 H Pulse Oximetry Oxygen Delivery 12/04/21 09:40 12/04/21 10:00 12/04/21 10:20 Temperature Pulse Rate 102 H 104 H 105 H Respiratory Rate Blood Pressure 157/73 H 150/64 H 139/94 H Pulse O
[2021-12-05 08:00] VITALS: BP 138/57; PULSE 93; RESP 17; TEMP 36.7; O2SAT 96
[2021-12-05 08:07] LABS: Glucose Point of Care 187 mg/dl (65-105)
[2021-12-05] MEDS: PSYLLIUM POWDER PACKET 1 PACKET BY MOUTH (08:19)
[2021-12-05] MEDS: allopurinoL 300 MG TABLET PO (08:19)
[2021-12-05] MEDS: THERAPEUTIC MULTIVITAMINS/MINERALS TAB (*BKC) 1 TABLET PO (08:20)
[2021-12-05] MEDS: SODIUM BICARBONATE TAB 650 MG TABLET PO (08:20)
[2021-12-05] MEDS: methocarbamoL 750 MG TABLET PO (08:20)
[2021-12-05] MEDS: CHOLECALCIFEROL 1,000 UNITS TABLET 2000 UNITS PO (08:20)
[2021-12-05] MEDS: busPIRone HCL 10 MG TABLET PO (08:20)
[2021-12-05] MEDS: lisinopriL 20 MG TABLET PO (08:20)
[2021-12-05] MEDS: SERTRALINE HCL 50 MG TABLET 100 MG PO (08:20)
[2021-12-05] MEDS: LOPERAMIDE HCL 2 MG CAPSULE PO (08:21)
[2021-12-05] MEDS: rOPINIRole HCL 0.25 MG TABLET PO (08:21)
[2021-12-05] MEDS: ATORVASTATIN 40 MG TABLET PO (08:39)
--- NOTE | 2021-12-05 11:37 | PM.DS ---
DS: Admitting Diagnosis Discharge Date December 05, 2021 Admitting Diagnosis pulmonary edema, medication reaction DS: Discharge Diagnosis Discharge Diagnosis (1) Volume overload: Code(s): E87.70 - Fluid overload, unspecified Status: Acute Assessment and Plan: The patient presented today with fluid overload and shortness of breath. She is heading to dialysis today per Dr. Joe. (2) Pulmonary edema: Code(s): J81.1 - Chronic pulmonary edema Status: Acute Assessment and Plan: Plan is as detailed above. (3) End-stage renal disease on hemodialysis: Code(s): N18.6 - End stage renal disease; Z99.2 - Dependence on renal dialysis Status: Acute Assessment and Plan: Dr. Joe consulted for dialysis. (4) Elevated troponin: Code(s): R77.8 - Other specified abnormalities of plasma proteins Status: Acute Assessment and Plan: Troponins have increased to 1.470 However she is not having any chest pain at this time, reportedly only having midsternal chest pain shortly after receiving an injection of ceftriaxone this morning. She was in atrial flutter/tachycardia with rapid ventricular response earlier and I suppose this could be rate related in the setting of end-stage renal disease. She now seems to be back into a sinus rhythm. She will be given a dose of Lovenox 1 milligram/kilogram x1 and an echocardiogram has been ordered for a.m. Cardiology has been consulted and their input is appreciated. (5) Hypertension: Code(s): I10 - Essential (primary) hypertension Status: Acute Assessment and Plan: Blood pressures were over 200 on arrival and they have improved with dialysis. Continue antihypertensives and monitor closely. (6) Allergic reaction caused by a drug: Code(s): T78.40XA - Allergy, unspecified, initial encounter Status: Acute Assessment and Plan: Patient believes that she had an allergic reaction to IM ceftriaxone this morning. She started to feel short of breath and had some chest discomfort at that time. There was no mention of urticaria, angioedema, or the like. Her vital signs were stable in fact blood pressures were high on arrival to the ER. I am wondering if instead her symptoms were related to pulmonary edema and high blood pressure. (7) Hypothyroidism: Code(s): E03.9 - Hypothyroidism, unspecified Status: Chronic (8) Anemia of chronic disease: Code(s): D63.8 - Anemia in other chronic diseases classified elsewhere Status: Acute (9) Pure hypercholesterolemia, unspecified: Code(s): E78.00 - Pure hypercholesterolemia, unspecified Status: Acute (10) Type 2 diabetes mellitus with diabetic polyneuropathy: Code(s): E11.42 - Type 2 diabetes mellitus with diabetic polyneuropathy Status: Acute Plan She is currently at [facility] for rehab since breaking her left leg and is eager to return. She wants to be discharged MISAEL. DS: Summary Hospital Course Hospital Course: Patient is a 76-year-old female who came in with medication reaction after a shot of Rocephin. Initial complaints were some shortness of breath and she wasa found have some pulmonary edema. cardiology was consult of and did not recommend any further workup. Patient did receive a couple dialysis treatments and did exceptionally well. She is currently sitting up in doing her normal activities. She can be discharged to follow-up with Cardiology, Nephrology. Time Spent with Patient Time attestation: Total time spent providing and/or coordinating discharge services: Exam Narrative: General: Pleasant female in no acute distress HEENT:? Moist oral mucosa, pupils equal and reactive, sclera is clear Neck:? Supple, no lymphadenopathy Respiratory:? Clear to auscultation bilaterally, no wheezing, adequate air entry Cardiac:? Currently in sinus rhythm, rate controlled Abdomen:? Soft, no
[2021-12-05 12:18] LABS: Glucose Point of Care 192 mg/dl (65-105)
== END 2021-12-05 13:55 | DRG 291 ==
LOC: ANHED 14:42 → ANHICU 15:27
PROVIDERS: Internal Medicine; Internal Medicine Nephrology; Physician Assistant; Admitting Provider Student in an Organized Health Care Education/Training Program; Emergency Provider Emergency Medicine; PCP Family Medicine Adolescent Medicine; Visit Provider Chiropractor
DX: I13.2 Hypertensive heart and chronic kidney disease with heart failure and with stage 5 chronic kidney disease, or end stage renal disease (principal); I50.31 Acute diastolic (congestive) heart failure; N18.6 End stage renal disease; K50.90 Crohn's disease, unspecified, without complications; I48.92 Unspecified atrial flutter; D63.1 Anemia in chronic kidney disease; T36.1X5A Adverse effect of cephalosporins and other beta-lactam antibiotics, initial encounter; R00.0 Tachycardia, unspecified; Z99.2 Dependence on renal dialysis; E78.00 Pure hypercholesterolemia, unspecified; E03.9 Hypothyroidism, unspecified; E11.51 Type 2 diabetes mellitus with diabetic peripheral angiopathy without gangrene; E11.42 Type 2 diabetes mellitus with diabetic polyneuropathy; E11.22 Type 2 diabetes mellitus with diabetic chronic kidney disease; F32.A Depression, unspecified; F41.1 Generalized anxiety disorder; G47.33 Obstructive sleep apnea (adult) (pediatric); G25.81 Restless legs syndrome; I25.10 Atherosclerotic heart disease of native coronary artery without angina pectoris; K21.9 Gastro-esophageal reflux disease without esophagitis; N25.0 Renal osteodystrophy; R06.02 Shortness of breath; R07.89 Other chest pain; R77.8 Other specified abnormalities of plasma proteins; S82.92XD Unspecified fracture of left lower leg, subsequent encounter for closed fracture with routine healing; W19.XXXD Unspecified fall, subsequent encounter; Z20.822 Contact with and (suspected) exposure to COVID-19; Z95.5 Presence of coronary angioplasty implant and graft; Z88.0 Allergy status to penicillin; Z86.16 Personal history of COVID-19; Z87.442 Personal history of urinary calculi; Z85.528 Personal history of other malignant neoplasm of kidney; Z90.49 Acquired absence of other specified parts of digestive tract; Z79.4 Long term (current) use of insulin; Z96.0 Presence of urogenital implants; Z90.710 Acquired absence of both cervix and uterus; Z90.5 Acquired absence of kidney; Z87.891 Personal history of nicotine dependence; Z66 Do not resuscitate
CPT/HCPCS: 36415; 71045; 78580; 80053; 80069; 82274; 82948; 83540; 83550; 83735; 83880; 84100; 84443; 84484; 85025; 85027; 85380; 85610; 85730; 87340; 93005; 93306; 93970; 96374; 96375; 97161; 97165; 97530; 99285; A9270; A9540; C9803; G0257; G0378; J1200; J1815; J7030; Q5105; U0003; U0005

== ENCOUNTER → 2022-02-18 14:29 | Outpatient (CLI) | payer MEDICARE, SELFPAY ==
--- NOTE | ~2022-02-18 | XR_ITS ---
XR lumbar spine 2-3V DATE: 02/18/2022 14:50 INDICATION: Fall 4 months ago. Minimal back pain. TECHNIQUE: AP, lateral, coned lateral lumbosacral views COMPARISON: None FINDINGS: Diffuse osteopenia. Degenerative changes in the lower thoracic spine including severe degen erative disc disease at T12-L1. Moderately prominent degenerative disc disease at L1-2, L2-3 and L3-4. Moderately severe degenerative disc disease at L4-5 with minimal anterolisthesis at this level due to degenerative change at the apophyseal joints. No fracture or bone destruction of the lumbar spine. Lumbar pedicles are intact. Degenerative changes at the sacroiliac joints. Probable left renal artery stent. Abdominal aortic and iliac artery calcifications. Status post cholecystectomy. Approximately 9 mm medial basilar right lower lung pulmonary nodule. IMPRESSION: 9 mm medial basilar right lower lung nodule Osteopenia Multilevel degenerative disc disease, most prominent at L4-5 Degenerative changes apophyseal joints with associated minimal grade 1 anterolisthesis at L4-5 Probable left renal artery stent. Abdominal aortic and iliac artery calcifications Status post cholecystectomy Reviewed, dictated and finalized at location B. ER OPERATOR IMPRESSION: 9 mm medial basilar right lower lung nodule Osteopenia Multilevel degenerative disc disease, most prominent at L4-5 Degenerative changes apophyseal joints with associated minimal grade 1 anteroli sthesis at L4-5 Probable left renal artery stent. Abdominal aortic and iliac artery calcificati ons Status post cholecystectomy
--- NOTE | ~2022-02-18 | XR_ITS ---
XR thoracic spine 3V DATE: 02/18/2022 14:50 INDICATION: Fall 4 months ago. Mid and low back pain TECHNIQUE: AP, lateral and swimmer views COMPARISON: None FINDINGS: There is diffuse osteopenia. There is prominent degenerative disc disease at C6-7. There is degenerative spurring of the thoracic spine with prominent degenerative disc disease particu larly at T12-L1. No fracture or dislocation or bone destruction is evident. The thoracic pedicles are intact. No sang matt soft tissue thickening. Surgical clips, right upper quadrant, likely due to cholecystectomy. IMPRESSION: Osteopenia Moderate degenerative disc disease at C6-7 Degenerative changes of the thoracic spine, most prominent at T12-L1 Reviewed, dictated and finalized at location B. ICAL MANAGER
== END ==
PROVIDERS: PCP Family Medicine Adolescent Medicine; Visit Provider Physician Assistant
DX: M54.50 Low back pain, unspecified (principal); R91.1 Solitary pulmonary nodule; M85.88 Other specified disorders of bone density and structure, other site; M51.36 Other intervertebral disc degeneration, lumbar region; M43.16 Spondylolisthesis, lumbar region; Z90.49 Acquired absence of other specified parts of digestive tract; M50.323 Other cervical disc degeneration at C6-C7 level
CPT/HCPCS: 72072; 72100

== ENCOUNTER 2022-03-13 12:13 | Emergency (ER) | payer MEDICARE, SELFPAY ==
[2022-03-13] VITALS (16 sets, daily range): BP systolic 164–183; BP diastolic 55–74; PULSE 70–94; RESP 12–21; TEMP 36.7; O2SAT 90–99
--- NOTE | ~2022-03-13 | XR_ITS ---
EXAMINATION: XR chest 1V portable INDICATION: Cough TECHNIQUE: Portable AP chest at 1255 hours COMPARISON: 12/04/2021 FINDINGS: Cardiomegaly is noted. There is a mild diffuse interstitial pattern. No pleural effusion or pneumothorax. A chronic nodule is noted in the right lower lobe. IMPRESSION: 1. Cardiomegaly with mild pulmonary edema. Reviewed, dictated and finalized at location L. FOLIO ACCOUNTANT
--- NOTE | ~2022-03-13 | CT_ITS ---
Non-contrast Head CT History: Altered mental status COMPARISON: 01/31/2018 Technique: Axial non-contrast imaging of the brain was performed. Dose reduction technique was used on this scan by utilizing automated exposure control and iterative reconstruction technique. The dose -length product (DLP) was 605.33 mGy-cm. Findings: There is no evidence of intracranial hemorrhage, mass lesion, or acute infarct. Brain par enchyma appears normal. The ventricles and subarachnoid spaces are normal in size. The calvarium ap pears normal. The visualized paranasal sinuses and mastoid air cells are clear. Impression: No significant abnormality seen. Reviewed, dictated and finalized at location . HYPERBARIC Impression: No significant abnormality seen.
--- NOTE | 2022-03-13 12:21 | ECG_ITS ---
Measurements Intervals [place] Rate: 79 P: 34 DE: 200 QRS: -33 QRSD: 98 T: 62 QT: 430 QTc: 494 Interpretive Statements SINUS RHYTHM LEFT AXIS DEVIATION [QRS AXIS < -30] COMPARED TO ECG 12/02/2021 18:49:52 SINUS RHYTHM NOW PRESENT Electronically Signed On 03-13-2022 15:01:19 CALL WORKER by Mark Kaur M.D.
--- NOTE | 2022-03-13 12:40 | ED.WEAKNESS ---
HPI - Weakness General Chief complaint: Weakness Stated complaint: weakness Time Seen by Provider: 03/13/22 12:29 Source: RN notes reviewed History of Present Illness HPI Narrative: Patient presents emergency department from home via EMS for weakness. Patient states that she has been progressively more weak over the past 2 days. States she began to feel sick 2 days ago with a cough this been nonproductive as well as generalized fatigue states that she has chronic renal failure and is followed by Dr. Howard she is on dialysis Thursday with her last dialysis Thursday she missed her Thursday as they would not let her come because her friend she had COVID. Patient states her son was around her on [place] and then tested positive for COVID she states she took a home test yesterday and believes it was positive Related Data Home Medications Medication Instructions Recorded Confirmed acetaminophen 650 mg tablet 650 mg PO Q6H PRN pain or fever 12/02/21 02/18/22 calcium carbonate 600 mg-vitamin 2 tablet PO DAILY 12/02/21 02/18/22 D3 10 mcg (400 unit) tablet (Calcium with Vitamin D) cholecalciferol (vitamin D3) 25 50 mcg PO DAILY 12/02/21 02/18/22 mcg (1,000 unit) tablet (Vitamin D3) loperamide 2 mg tablet 2 mg PO BID PRN Diarrhea 12/02/21 02/18/22 melatonin 3 mg tablet 3 mg PO HS PRN Sleep 12/02/21 02/18/22 multivitamin with minerals-folic 1 tablet PO DAILY 12/02/21 02/18/22 acid 0.4 mg tablet psyllium husk 0.52 gram capsule 0.52 g PO DAILY 12/02/21 02/18/22 (Fiber (psyllium husk)) simvastatin 10 mg tablet 10 mg PO HS 12/02/21 02/18/22 sodium bicarbonate 650 mg tablet 650 mg PO BID 12/02/21 02/18/22 aspirin 325 mg tablet 325 mg PO DAILY 12/26/21 02/18/22 metoprolol tartrate 50 mg tablet 50 mg PO BID 12/26/21 02/18/22 pantoprazole 40 mg tablet,delayed 40 mg PO QAM 12/26/21 02/18/22 release sevelamer carbonate 800 mg tablet 800 mg PO TID 12/26/21 02/18/22 vitamin B comp and C no.3 15 mg-10 1 cap PO DAILY 12/26/21 02/18/22 mg-50 mg-5 mg-300 mg capsule (B Complex Plus Vitamin C) Allergies Allergy/AdvReac Type Severity Reaction Status Date / Time cortisone Allergy Intermediate Dyspnea / Verified 02/18/22 12:50 SOB Penicillins Allergy Intermediate Dyspnea / Verified 02/18/22 12:50 SOB ceftriaxone [From Rocephin] Allergy Difficulty Verified 02/18/22 12:50 Breathing amlodipine AdvReac Intermediate Drowsy Verified 02/18/22 12:50 Review of Systems Review of Systems: Gen.: Denies fevers or chills, reports COVID Eyes: Denies eye pain or visual change ENT: Denies congestion Respiratory: Denies shortness of breath reports cough CV: Denies chest pain or palpitations GI: Denies abdominal pain nausea, emesis or diarrhea denies reports chronic renal failure dialysis Musculoskeletal: Denies back pain or muscle pain Neuro: Reports weakness Skin: Denies rash Except as documented, all other systems reviewed and negative [facility] Past Medical History Medical History Anemia of chronic disease Coronary artery disease History of stent x3. COVID-19 Crohn's disease Depression with anxiety End-stage renal disease on hemodialysis Erythropoietin deficiency anemia Gastroesophageal reflux disease History of kidney stones Hypothyroidism Normal colonoscopy (08/2019) Obstructive sleep apnea No longer using CPAP after 40 lb weight loss. Pericardial effusion (~01/2020) Small pericardial effusion on echocardiogram, felt to be related to uremia. Peripheral vascular disease Peritonitis (~01/2020) Renal cell carcinoma (~2004) Renal osteodystrophy Restless leg syndrome Shingles (~1991) Surgical History Surgical History History of appendectomy History of bilateral carpal tunnel release History of cardiac catheterization With stent x3. History of cholecystectomy History of colonoscopy H
[2022-03-13 13:37] LABS: Alanine Aminotransferase 13 U/L (6-35); Albumin Level 3.8 g/dL (3.5-5.1); Alkaline Phosphatase 127 U/L (38-126); Anion Gap 11 mmol/L (8-16); Aspartate Amino Transferase 20 U/L (14-36); Bilirubin,Total 0.4 mg/dL (0.2-1.3); Blood Urea Nitrogen 46 mg/dL (7-17); Calcium 7.7 mg/dL (8.4-10.2); Carbon Dioxide 27 mmol/L (22-30); Chloride 96 mmol/L (98-107); Estimated CRCL calculation 5 ml/min; Estimated Glomerular Filt Rate 5; Glucose 128 mg/dL (65-110); Magnesium 1.8 mg/dL (1.6-2.3); Sodium 134 mmol/L (137-145)
[2022-03-13 13:40] LABS: Basophils Percent Auto 0.3 % (0.2-1.2); Eosinophils Absolute Auto 0.1 K/mm3 (0-0.3); Eosinophils Percent Auto 1.6 % (0-4.4); Hemoglobin 10.9 g/dL (12.0-15.0); Immature Granulocyte Absolute 0.03 K/mm3 (0.00-0.031); Immature Granulocyte Percent A 0.4 % (0-0.5); Lymphocytes Absolute Auto 0.86 K/mm3 (0.9-3.2); Lymphocytes Percent Auto 10.9 % (18.3-44.2); Mean Corpuscular HGB Conc 30.3 g/dl (32-36); Mean Corpuscular Hemoglobin 27.9 pg (26-34); Mean Corpuscular Volume 92.3 fl (80-100); Mean Platelet Volume 9.6 fl (7.4-10.4); Monocytes Percent Auto 12.7 % (2.6-8.5); Neutrophils Absolute Auto 5.9 K/mm3 (1.3-6.7); Neutrophils Percent Auto 74.1 % (45.5-73.1); Platelet Count Result 181 k/mm3 (150-375); Red Cell Distribution Width 16.1 % (11.5-14.5); White Blood Count 7.9 K/mm3 (4.5-10.0)
[2022-03-13 13:47] LABS: INR 1.2; Partial Thromboplastin Time 32.4 SECONDS (22.3-36.8); Prothrombin Time 14.5 Seconds (11.1-14.7)
[2022-03-13 14:03] LABS: Influenza A QL RT-PCR Negative (Negative); Influenza B QL RT-PCR Negative (Negative); SARS-CoV-2 RNA PCR Positive
[2022-03-13 14:37] LABS: Add Urine Microscopic? YES; Appearance Urine Clear (Clear); Bilirubin Urine Negative (Negative); Blood Urine 2+ (Negative); Color Urine Yellow (Yellow); Glucose Urine UA 1+ mg/dL (Negative); Ketones Urine Negative (Negative); Leukocyte Esterase Ur Negative LEU/UL (Negative); Nitrate Urine Negative (Negative); Protein Urine 3+ mg/dL (Negative); Specific Grav Ur 1.015 (1.001-1.035); Urobilinogen Urine 0.2 mg/dL (<2.0); pH Urine 7.5 (5.0-9.0)
[2022-03-13 15:06] LABS: Bacteria Urine Trace /hpf; Mucus Urine Rare /lpf; Squamous Epithelial Cell Urine Few /hpf (Few)
--- NOTE | 2022-03-13 15:33 | PC.NURSE ---
Walked pt with the pulse ox. Pt was 94% starting out, after walking up the hallway, pt was 92%, and after walking back to pts room, pt was 91%. and RN notified.
== END 2022-03-13 16:23 | disposition home or self-care (01) ==
PROVIDERS: Emergency Provider Emergency Medicine; PCP Family Medicine Adolescent Medicine
DX: U07.1 COVID-19 (principal); N18.6 End stage renal disease; D63.1 Anemia in chronic kidney disease; I73.9 Peripheral vascular disease, unspecified; N25.0 Renal osteodystrophy; E03.9 Hypothyroidism, unspecified; K50.90 Crohn's disease, unspecified, without complications; K21.9 Gastro-esophageal reflux disease without esophagitis; G25.81 Restless legs syndrome; Z99.2 Dependence on renal dialysis; Z95.5 Presence of coronary angioplasty implant and graft; Z90.710 Acquired absence of both cervix and uterus; Z90.5 Acquired absence of kidney; Z85.528 Personal history of other malignant neoplasm of kidney; Z86.16 Personal history of COVID-19; Z87.442 Personal history of urinary calculi; Z87.891 Personal history of nicotine dependence; I51.7 Cardiomegaly; J81.1 Chronic pulmonary edema
CPT/HCPCS: 36415; 70450; 71045; 80053; 81001; 83735; 85025; 85610; 85730; 87636; 93005; 99284

== ENCOUNTER 2022-03-25 09:45 | Observation (INO) | payer MEDICARE, SELFPAY ==
[2022-03-25] VITALS (44 sets, daily range): BP systolic 171–202; BP diastolic 41–84; PULSE 59–81; RESP 13–22; TEMP 36.4–36.6; O2SAT 90–100
--- NOTE | ~2022-03-25 | NM_ITS ---
EXAMINATION: NM pulmonary perfusion DATE: 03/25/2022 15:03 INDICATION: Dyspnea TECHNIQUE: 5.5 mCi Tc-99m MAA by intravenous route. Scintigraphic images of the chest were obtained. COMPARISON: Chest radiograph dated 03/25/2022 and perfusion study dated 12/02/2021. FINDINGS: Cardiomegaly. There are tiny matched perfusion defects in the lower lobes which have decreased since the prior study. No unmatched or new perfusion defects identified. IMPRESSION: 1. Low probability for pulmonary embolism. Reviewed, dictated and finalized at location A. ING SPECIALIST
--- NOTE | ~2022-03-25 | XR_ITS ---
EXAMINATION: XR chest 1V portable DATE: 03/25/2022 10:51 INDICATION: Cough. TECHNIQUE: A single frontal view of the chest was obtained. COMPARISON: Chest single view 03/13/2022, chest CT 02/02/2020 FINDINGS: There is mild atelectasis in the lower lung zones. There is a diffuse interstitial pattern, consistent mild pulmonary edema. No pleural effusion or pneumothorax. Cardiomegaly is noted. IMPRESSION: 1. Mild pulmonary edema. 2. Cardiomegaly. Reviewed, dictated and finalized at location A. MIC TILE SETTER
--- NOTE | 2022-03-25 10:31 | ECG_ITS ---
Measurements Intervals [place] Rate: 61 P: -5 NV: 216 QRS: -29 QRSD: 101 T: 46 QT: 513 QTc: 517 Interpretive Statements SINUS RHYTHM WITH FIRST DEGREE AV BLOCK BORDERLINE R WAVE PROGRESSION, ANTERIOR LEADS BORDERLINE T WAVE ABNORMALITY- ANTERIOR LEADS PROLONGED QT INTERVAL BASELINE ARTIFACT- II, III ABNORMAL ECG COMPARED TO ECG 03/13/2022 12:22:44 FIRST DEGREE AV BLOCK NOW PRESENT PROLONGED QT INTERVAL NOW PRESENT Electronically Signed On 03-25-2022 11:15:01 LOSS PREVENTION OFFICER by Brennen Keenan D.O.
[2022-03-25 11:10] LABS: Partial Thromboplastin Time 24.7 SECONDS (22.3-36.8); Prothrombin Time 13.1 Seconds (11.1-14.7)
[2022-03-25 11:12] LABS: Alanine Aminotransferase 14 U/L (6-35); Albumin Level 3.6 g/dL (3.5-5.1); Alkaline Phosphatase 137 U/L (38-126); Anion Gap 9 mmol/L (8-16); Aspartate Amino Transferase 16 U/L (14-36); Bilirubin,Total 0.7 mg/dL (0.2-1.3); Blood Urea Nitrogen 26 mg/dL (7-17); Carbon Dioxide 32 mmol/L (22-30); Chloride 97 mmol/L (98-107); Estimated Glomerular Filt Rate 9; Glucose 134 mg/dL (65-110); Potassium 3.7 mmol/L (3.4-5.0); Sodium 138 mmol/L (137-145)
[2022-03-25 11:13] LABS: Basophils Percent Auto 0.2 % (0.2-1.2); Eosinophils Absolute Auto 0.3 K/mm3 (0-0.3); Eosinophils Percent Auto 3.5 % (0-4.4); Hematocrit 35.8 % (37.0-47.0); Hemoglobin 10.8 g/dL (12.0-15.0); Immature Granulocyte Absolute 0.07 K/mm3 (0.00-0.031); Immature Granulocyte Percent A 0.9 % (0-0.5); Lymphocytes Absolute Auto 1.24 K/mm3 (0.9-3.2); Lymphocytes Percent Auto 15.4 % (18.3-44.2); Mean Corpuscular HGB Conc 30.2 g/dl (32-36); Mean Corpuscular Hemoglobin 27.9 pg (26-34); Mean Corpuscular Volume 92.5 fl (80-100); Mean Platelet Volume 9.5 fl (7.4-10.4); Monocytes Absolute Auto 0.6 K/mm3 (0.1-0.6); Monocytes Percent Auto 7.3 % (2.6-8.5); Neutrophils Absolute Auto 5.8 K/mm3 (1.3-6.7); Neutrophils Percent Auto 72.7 % (45.5-73.1); Platelet Count Result 217 k/mm3 (150-375); Red Blood Count 3.87 M/mm3 (4.2-5.4); Red Cell Distribution Width 15.9 % (11.5-14.5)
[2022-03-25] MEDS: lisinopriL 20 MG TABLET PO (13:22)
--- NOTE | 2022-03-25 13:32 | PM.CNNEP ---
Assessment and Plan Assessment and plan (1) End stage renal disease: Code(s): N18.6 - End stage renal disease Status: Chronic Assessment and Plan: HD tomorrow and continue M/W/F schedule while hospitalized follow electrolytes, volume status, and clearance (2) COVID-19 virus infection: Code(s): U07.1 - COVID-19 Status: Acute Assessment and Plan: not requiring oxygen at the time of my visit would hold off on any further medications (remdesivir or steroids) continue supportive therapy (3) Hypertension: Code(s): I10 - Essential (primary) hypertension Status: Chronic Assessment and Plan: running a bit high resume home medications follow trend of hemodynamics (4) Anemia: Code(s): D64.9 - Anemia, unspecified Status: Chronic Assessment and Plan: due to ESRD Epogen with dialysis follow trend of H/H (5) Diabetes: Code(s): E11.9 - Type 2 diabetes mellitus without complications Status: Chronic Assessment and Plan: follow accuchecks glycemic control Will continue to follow. History of Present Illness Reason for Consult Consult date: 03/25/22 Reason for consult: end stage renal disease Chief Complaint Chief complaint: COVID-19,Acute Respiratory Failure w/Hypoxia History of Present Illness Narrative: The patient is a 76-year-old female with a past medical history as outlined below who presented to [facility] Emergency Room from home for further evaluation of shortness of breath. The patient was recently diagnosed with COVID-19 in mid November 2021. She has not required any type of hospitalization with regard to this issue and she has been contained to do her normal outpatient dialysis treatments without any significant issues or problems. However, since the diagnosis, she has had on and off issues with shortness of breath and she feels she has been somewhat slow to recover from the illness in general. She reports no fevers, chills, nausea, vomiting, chest pain, or any other symptoms other than a nonproductive cough. She also reported feeling that she is retaining more fluid since the diagnosis of COVID-19 as well. Given these constellation of symptoms and its persistence, she presented to the ER for further assessment. Workup and evaluation emergency room demonstrated the patient be mildly hypoxic and did require supplemental oxygen to get her O2 saturations greater than 90%. Routine blood test demonstrated labs consistent with her known history of end-stage renal disease an unremarkable CBC. Her chest x-ray showed some mild bilateral pleural effusions and cardiomegaly but no overt volume overload. Given her hypoxia and her complex medical history, she was admitted the hospital for further evaluation and therapy. Since her admission, her oxygen saturations have actually normalized without the use of supplement oxygen at the time of my visit. She still feels sort of ?blah? which she still attributes to the COVID-19 but does not feel any worse since her presentation. Renal consultation was requested due to her end-stage renal disease. The patient normally dialyzes on a Thursday, Thursday, Thursday dialysis schedule at [facility] dialysis under the care of Dr. Jamshid Joe. From a dialysis perspective, she has been doing reasonably well and has been compliant with her treatments. Due to her COVID 19 status, she has been dialyzed in an isolation room. However, stability in her electrolytes, volume status, clearance have been noted with her ongoing compliance with dialysis treatments. Her last dialysis treatment was yesterday, Thursday (01/22/2023). Currently, as mentioned above, she is not requiring supplemental oxygen and feels her respiratory status is stable. Review of Systems Review of Systems: As per HPI. [facility] Past Medical History Medical History (Reviewed 03/25/22 @ 15:49 by Nazanin
--- NOTE | 2022-03-25 14:40 | PC.NURSE ---
Patient was sent off with nuclear medicine staff for vq scan
--- NOTE | 2022-03-25 15:36 | PC.NURSE ---
Ambulated in grace. 02 sat dropped to 87% with activity. Pt reported feeling sob after walking.
--- NOTE | 2022-03-25 15:48 | ED.GENADULT ---
HPI - General Adult General Chief complaint: Upper Respiratory Infection Stated complaint: SOB POST COVID MAR 06 Time Seen by Provider: 03/25/22 10:27 Source: RN notes reviewed History of Present Illness HPI narrative: Patient presents emergency department from home for shortness of breath. Patient states she was diagnosed with COVID-19 on March 03. She states that she has not been able to fully recover and has been since feeling more short of breath. States she has had a cough this been nonproductive she is on dialysis and states she last had dialysis yesterday she denies any fevers or chills chest pain abdominal pain nausea vomiting or any other symptoms. States that she does feel since she is had COVID that with her dialysis she has been retaining fluid Related Data Home Medications Medication Instructions Recorded Confirmed acetaminophen 650 mg tablet 650 mg PO Q6H PRN pain or fever 12/02/21 02/18/22 calcium carbonate 600 mg-vitamin 2 tablet PO DAILY 12/02/21 02/18/22 D3 10 mcg (400 unit) tablet (Calcium with Vitamin D) cholecalciferol (vitamin D3) 25 50 mcg PO DAILY 12/02/21 02/18/22 mcg (1,000 unit) tablet (Vitamin D3) loperamide 2 mg tablet 2 mg PO BID PRN Diarrhea 12/02/21 02/18/22 melatonin 3 mg tablet 3 mg PO HS PRN Sleep 12/02/21 02/18/22 multivitamin with minerals-folic 1 tablet PO DAILY 12/02/21 02/18/22 acid 0.4 mg tablet psyllium husk 0.52 gram capsule 0.52 g PO DAILY 12/02/21 02/18/22 (Fiber (psyllium husk)) simvastatin 10 mg tablet 10 mg PO HS 12/02/21 02/18/22 sodium bicarbonate 650 mg tablet 650 mg PO BID 12/02/21 02/18/22 aspirin 325 mg tablet 325 mg PO DAILY 12/26/21 02/18/22 metoprolol tartrate 50 mg tablet 50 mg PO BID 12/26/21 02/18/22 pantoprazole 40 mg tablet,delayed 40 mg PO QAM 12/26/21 02/18/22 release sevelamer carbonate 800 mg tablet 800 mg PO TID 12/26/21 02/18/22 vitamin B comp and C no.3 15 mg-10 1 cap PO DAILY 12/26/21 02/18/22 mg-50 mg-5 mg-300 mg capsule (B Complex Plus Vitamin C) Allergies Allergy/AdvReac Type Severity Reaction Status Date / Time cortisone Allergy Intermediate Dyspnea / Verified 02/18/22 12:50 SOB Penicillins Allergy Intermediate Dyspnea / Verified 02/18/22 12:50 SOB ceftriaxone [From Rocephin] Allergy Difficulty Verified 02/18/22 12:50 Breathing amlodipine AdvReac Intermediate Drowsy Verified 02/18/22 12:50 Review of Systems Review of Systems: Gen.: Denies fevers or chills ENT: Denies congestion Respiratory: See HPI CV: Denies chest pain or palpitations GI: Denies abdominal pain nausea, emesis or diarrhea chronic renal failure with dialysis Musculoskeletal: Denies back pain or muscle pain Neuro: Denies numbness, tingling, weakness or focal weakness Skin: Denies rash Except as documented, all other systems reviewed and negative PMFSH Past Medical History Medical History Anemia of chronic disease Coronary artery disease History of stent x3. COVID-19 Crohn's disease Depression with anxiety End-stage renal disease on hemodialysis Erythropoietin deficiency anemia Gastroesophageal reflux disease History of kidney stones Hypothyroidism Normal colonoscopy (08/2019) Obstructive sleep apnea No longer using CPAP after 40 lb weight loss. Pericardial effusion (~01/2020) Small pericardial effusion on echocardiogram, felt to be related to uremia. Peripheral vascular disease Peritonitis (~01/2020) Renal cell carcinoma (~2004) Renal osteodystrophy Restless leg syndrome Shingles (~1991) Surgical History Surgical History History of appendectomy History of bilateral carpal tunnel release History of cardiac catheterization With stent x3. History of cholecystectomy History of colonoscopy History of cystoscopy With ureteral stents for kidney stones. History of foot surgery Repair of left foot fracture with
[2022-03-25] MEDS: IPRATROPIUM BR 0.02% INH SOLN 0.5 MG/2.5 ML VIAL INHALATION ×2 (16:16→21:04)
[2022-03-25] MEDS: ALBUTEROL SULFATE NEB 2.5 MG/3 ML INH 5 MG INHALATION ×2 (16:16→21:04)
--- NOTE | 2022-03-25 17:14 | PC.NURSE ---
EDP Tra notified of patient's blood pressure prior to admission. Per EDP [place], no further interventions needed at this time. Patient states her blood pressure has been running high for weeks.
--- NOTE | 2022-03-25 17:43 | ADMGEN ---
This patient, Layla Maher, was admitted to Medical Room 253-01. Patient/family oriented to hospital policies and general routines including ID bracelet, bed and alarms, visiting hours, pain management, procedures, bathroom and other care routines, personal items, smoking policy, room service/diet, and visiting hours. Information on how to activate the Rapid Response Team has been discussed. Patient/Family are encouraged to report perceived risks to care and to ask questions if they do not understand what they are told or what they should do.
--- NOTE | 2022-03-25 18:11 | PC.NURSE ---
Patient reports coming into contact with COVID-19 on 02/27/22. Patient officially diagnosed with the disease on 03/14/23. 11 Days have passed since the diagnosis, therefore no droplet precautions were initiated at this time per isolation protocol.
--- NOTE | 2022-03-25 20:32 | PM.IMHP ---
H&P: HPI History of Present Illness Date/Time: 03/25/22 20:32 Chief Complaint: Shortness of breath Narrative: This is a 76-year-old female with past medical history significant for end-stage renal disease on hemodialysis, patient tested positive for COVID 19 in late February she presents today to the emergency room due to worsening shortness of breath for the last few days or so, denies any fevers, rigors, chills, night sweats, nausea, vomiting patient did notice that she was having leg swelling which states is unusual for her. In emergency room patient received breathing treatments which give her significant relief from her symptoms. A chest x-ray was reported as: FINDINGS: There is mild atelectasis in the lower lung zones. There is a diffuse interstitial pattern, consistent mild pulmonary edema. No pleural effusion or pneumothorax. Cardiomegaly is noted. IMPRESSION: 1. Mild pulmonary edema. 2. Cardiomegaly. Review of Systems Review of Systems: Shortness of breath, leg swelling. Constitutional: Constitutional: Denies chills, Denies fever(s), Denies malaise, Denies night sweats and Denies weakness Eyes: Eyes: Denies change in vision ENT: Denies dysphagia, Denies vertigo, Denies dizziness and Denies odynophagia Cardiovascular: Cardiovascular: Denies chest pain and Reports leg edema Respiratory: Respiratory: Reports chest congestion, Denies cough, Denies excessive phlegm production and Reports dyspnea Gastrointestinal: Gastrointestinal: Denies abdominal pain, Denies dyspepsia, Denies heartburn and Denies nausea Genitourinary: Genitourinary: Denies dysuria Musculoskeletal: Musculoskeletal: Reports muscle weakness Integumentary/Breasts: Skin/Breast: Denies rash Neurologic: Denies focal weakness and Denies Sensory deficit (Neuro) Psychiatric: Psychiatric: Reports no additional psychiatric complaints Endocrine: Endocrine: Denies cold intolerance, Denies flushing, Denies heat intolerance, Denies polyphagia, Denies polydipsia and Denies palpitations Hematologic/Lymphatic: Hematologic/Lymphatic: Reports no additional hematologic/lymphatic complaints and Reports as per HPI Allergic/Immunologic: Allergic/Immunologic: Reports no additional allergic/immunologic complaints and Reports as per HPI PMFSH Past Medical History Medical History Anemia of chronic disease Coronary artery disease History of stent x3. COVID-19 Crohn's disease Depression with anxiety End-stage renal disease on hemodialysis Erythropoietin deficiency anemia Gastroesophageal reflux disease History of kidney stones Hypothyroidism Normal colonoscopy (08/2019) Obstructive sleep apnea No longer using CPAP after 40 lb weight loss. Pericardial effusion (~01/2020) Small pericardial effusion on echocardiogram, felt to be related to uremia. Peripheral vascular disease Peritonitis (~01/2020) Renal cell carcinoma (~2004) Renal osteodystrophy Restless leg syndrome Shingles (~1991) Surgical History Surgical History History of appendectomy History of bilateral carpal tunnel release History of cardiac catheterization With stent x3. History of cholecystectomy History of colonoscopy History of cystoscopy With ureteral stents for kidney stones. History of foot surgery Repair of left foot fracture with pinning. History of hysterectomy (~1976) With cystocele and rectocele repairs. History of partial nephrectomy (~2004) Left partial nephrectomy for kidney cancer. History of tonsillectomy Family History Family History Father Renal cell carcinoma Acute myocardial infarction Cerebrovascular accident Colon polyp Heart disease Hypertension Mother Lung cancer Acute myocardial infarction Cerebrovascular accident Depression Heart disease Hypertension Son Asthma Social His
[2022-03-25] MEDS: busPIRone HCL 10 MG TABLET PO (23:40)
[2022-03-25] MEDS: METOPROLOL TARTRATE 50 MG TAB PO (23:41)
[2022-03-25] MEDS: SIMVASTATIN 10 MG TABLET PO (23:41)
[2022-03-25] MEDS: oxyCODONE HCL (*CRX) 5 MG TAB IR PO (23:41)
[2022-03-25] MEDS: VITAMIN B COMPLEX/VIT C CAPSULE 1 EACH PO (23:43)
[2022-03-26] VITALS (20 sets, daily range): BP systolic 134–206; BP diastolic 60–107; PULSE 67–79; RESP 16–22; TEMP 36–36.7; O2SAT 93–99
[2022-03-26] MEDS: IPRATROPIUM BR 0.02% INH SOLN 0.5 MG/2.5 ML VIAL INHALATION ×2 (03:13→09:04)
[2022-03-26] MEDS: ALBUTEROL SULFATE NEB 2.5 MG/3 ML INH 5 MG INHALATION ×2 (03:13→09:04)
[2022-03-26] MEDS: LEVOTHYROXINE SODIUM 75 MCG TABLET PO (06:12)
--- NOTE | 2022-03-26 07:36 | P.PNIM_ITS ---
Progress Note: A&P Assessment and Plan (1) COVID-19 virus infection: Code(s): U07.1 - COVID-19 Status: Acute Assessment and Plan: * Tested positive on 03/13/23 * On room at this time * Probably does not need to be isolated as her shortness of breath is most likely related to fluid overload * On dialysis * Chest xray shows mild pulmonary edema * Nephrology on board * Trend respiratory status (2) Acute respiratory failure with hypoxia: Code(s): J96.01 - Acute respiratory failure with hypoxia Status: Acute Assessment and Plan: * Noted to have saturations * Patient is on room air * Continue to monitor pulse ox 88% * reports dyspnea with exertion, unable to complete sentences * Improved and remains on room air * Continue to trend saturation * Most likely related to fluid overload (3) Chronic kidney disease with end stage renal failure on dialysis: Code(s): N18.6 - End stage renal disease; Z99.2 - Dependence on renal dialysis Status: Acute Assessment and Plan: * Current BUN/Cr 26/4.70 * Nephrology consulted to manage dialysis * Trend labs * Avoid nephrotoxic medications * Renally adjust medications (4) Renal osteodystrophy: Code(s): N25.0 - Renal osteodystrophy Status: Acute Assessment and Plan: * Continue home meds (5) Restless leg syndrome: Code(s): G25.81 - Restless legs syndrome Status: Acute Assessment and Plan: * Continue home meds (6) Generalized anxiety disorder: Code(s): F41.1 - Generalized anxiety disorder Status: Acute Assessment and Plan: * Continue home meds * Trend Mood * Adjust therapy as indicated (7) Type 2 diabetes mellitus with diabetic polyneuropathy: Code(s): E11.42 - Type 2 diabetes mellitus with diabetic polyneuropathy Status: Acute Assessment and Plan: * Current glucose is 134 * A1c in am * Seemingly diet control as patient on no meds * Trend labs * Adjust therapy as indicated (8) Anemia of chronic disease: Code(s): D63.8 - Anemia in other chronic diseases classified elsewhere Status: Acute Assessment and Plan: * Follow-up in outpatient setting with Nephrology * H/H stable at 10.8/35.9 * Continue to trend labs * Anemia labs in the am * supplement as indicated (9) Crohn's disease: Code(s): K50.90 - Crohn's disease, unspecified, without complications Status: Chronic Assessment and Plan: * In remission (10) BEKA (obstructive sleep apnea): Code(s): G47.33 - Obstructive sleep apnea (adult) (pediatric) Status: Chronic Assessment and Plan: * Continue CPAP at nighttime Time Spent With Patient Time with patient: Greater than 35 minutes Subjective Date/time seen: 03/26/22 07:36 Interval history: 03/26/22 03/25/22? 20:32 This is a 76-year-old female with past medical history significant for end-stage renal disease on hemodialysis, patient tested positive for COVID 19 in late February she presents
--- NOTE | 2022-03-26 07:36 | PM.IMPN ---
Progress Note: A&P Assessment and Plan (1) COVID-19 virus infection: Code(s): U07.1 - COVID-19 Status: Acute Assessment and Plan: Tested positive on 03/13/23 On room at this time Probably does not need to be isolated as her shortness of breath is most likely related to fluid overload On dialysis Chest xray shows mild pulmonary edema Nephrology on board Trend respiratory status (2) Acute respiratory failure with hypoxia: Code(s): J96.01 - Acute respiratory failure with hypoxia Status: Acute Assessment and Plan: Noted to have saturations Patient is on room air Continue to monitor pulse ox 88% reports dyspnea with exertion, unable to complete sentences Improved and remains on room air Continue to trend saturation Most likely related to fluid overload (3) Chronic kidney disease with end stage renal failure on dialysis: Code(s): N18.6 - End stage renal disease; Z99.2 - Dependence on renal dialysis Status: Acute Assessment and Plan: Current BUN/Cr 26/4.70 Nephrology consulted to manage dialysis Trend labs Avoid nephrotoxic medications Renally adjust medications (4) Renal osteodystrophy: Code(s): N25.0 - Renal osteodystrophy Status: Acute Assessment and Plan: Continue home meds (5) Restless leg syndrome: Code(s): G25.81 - Restless legs syndrome Status: Acute Assessment and Plan: Continue home meds (6) Generalized anxiety disorder: Code(s): F41.1 - Generalized anxiety disorder Status: Acute Assessment and Plan: Continue home meds Trend Mood Adjust therapy as indicated (7) Type 2 diabetes mellitus with diabetic polyneuropathy: Code(s): E11.42 - Type 2 diabetes mellitus with diabetic polyneuropathy Status: Acute Assessment and Plan: Current glucose is 134 A1c in am Seemingly diet control as patient on no meds Trend labs Adjust therapy as indicated (8) Anemia of chronic disease: Code(s): D63.8 - Anemia in other chronic diseases classified elsewhere Status: Acute Assessment and Plan: Follow-up in outpatient setting with Nephrology H/H stable at 10.8/35.9 Continue to trend labs Anemia labs in the am supplement as indicated (9) Crohn's disease: Code(s): K50.90 - Crohn's disease, unspecified, without complications Status: Chronic Assessment and Plan: In remission (10) BEKA (obstructive sleep apnea): Code(s): G47.33 - Obstructive sleep apnea (adult) (pediatric) Status: Chronic Assessment and Plan: Continue CPAP at nighttime Time Spent With Patient Time with patient: Greater than 35 minutes Subjective Date/time seen: 03/26/22 07:36 Interval history: 03/26/22 03/25/22? 20:32 This is a 76-year-old female with past medical history significant for end-stage renal disease on hemodialysis, patient tested positive for COVID 19 in late February she presents today to the emergency room due to worsening shortness of breath for the last few days or so, denies any fevers, rigors, chills, night sweats, nausea, vomiting patient did notice that she was having leg swelling which states is unusual for her.? In emergency room patient received breathing treatments which give her significant relief from her symptoms.? Review of Systems Review of Systems: All systems reviewed & are unremarkable except as noted in HPI and below Exam Narrative: General: well-nourished, well-appearing 76-year-old female, sitting up in bed, comfortable, NARD Neuro: awake, alert and oriented x4, speech clear, no focal neuro deficits noted HEENMT: normocephalic, atraumatic, EOMI, sclerae anicteric, moist oral mucosa Respiratory: Clear to auscultati
[2022-03-26 08:51] LABS: Hepatitis B Surface Antigen Negative (Negative)
[2022-03-26] MEDS: PANTOPRAZOLE 40 MG TABLET PO (09:07)
[2022-03-26] MEDS: METOPROLOL TARTRATE 50 MG TAB PO (09:08)
[2022-03-26] MEDS: ASPIRIN 325 MG TABLET PO (09:08)
[2022-03-26] MEDS: SEVELAMER CARBONATE 800 MG TABLET PO ×2 (09:08→15:24)
[2022-03-26 09:09] LABS: Hepatitis B Surface Anti Res Negative
[2022-03-26] MEDS: busPIRone HCL 10 MG TABLET PO (09:09)
[2022-03-26] MEDS: PSYLLIUM POWDER PACKET 1 PACKET BY MOUTH (09:09)
[2022-03-26] MEDS: SERTRALINE HCL 50 MG TABLET 100 MG PO (09:09)
[2022-03-26] MEDS: allopurinoL 300 MG TABLET PO (09:09)
[2022-03-26] MEDS: lisinopriL 20 MG TABLET PO (09:09)
[2022-03-26] MEDS: rOPINIRole HCL 0.5 MG TABLET PO (09:09)
[2022-03-26] MEDS: VITAMIN B COMPLEX/VIT C CAPSULE 1 EACH PO (10:27)
[2022-03-26] MEDS: ENOXAPARIN 30 MG/0.3 ML SYRINGE SUB-Q (10:28)
--- NOTE | 2022-03-26 12:00 | PM.DS ---
DS: Admitting Diagnosis Discharge Date 03/26/22 1200 Admitting Diagnosis COVID-19, acute respiratory failure with hypoxia, fluid overload DS: Summary Hospital Course Hospital Course: patient is 76-year-old female with past medical history of end-stage renal disease on dialysis, COVID-19, hypertension, GERD, hyperlipidemia who presented the ED with complaints of increased shortness of breath for the last few days. Patient stated that on her chest x-ray was noted that she had extra fluid and patient stated that she has never had that and that she does not retain fluid after dialysis. She did state that she was feeling a lot better today. She also stated that she was able to breathe well. She is really wanting to go home with an albuterol inhaler. She denies any chest pain, nausea, vomiting, diarrhea, constipation, weakness or fatigue. Patient is sitting in the bed eating her lunch. her lungs are clear per auscultation and states that she feels okay. Patient is stable for discharge for labs and vital signs. patient will be discharged home. Status at Discharge Functional status at discharge: independent ambulation Overall status at discharge: patient is progressing back to baseline Time Spent with Patient Time attestation: Total time spent providing and/or coordinating discharge services: 38 minutes Time spent: Greater than 30 minutes Specific discharge activities: Diagnostic testing, chart review, developing a treatment plan, education, care coordination documentation, physical exam, result review Exam Narrative: General: well-nourished, well-appearing 76-year-old female, sitting up in bed, comfortable, NARD Neuro: awake, alert and oriented x4, speech clear, no focal neuro deficits noted HEENMT: normocephalic, atraumatic, EOMI, sclerae anicteric, moist oral mucosa Respiratory: Clear to auscultation bilaterally without crackles, rhonchi or wheezes, nonlabored breathing Cardio: regular rate, regular rhythm with S1-S2 Abdomen: nondistended, normoactive bowel sounds, soft, nontender to palpation Extremities: no edema, erythema, or tenderness to palpation, DP pulses 2+ bilaterally Skin: no rashes or lesions, warm and dry Psych: appropriate mood and affect, judgment and insight intact DS: Data Data Completed and Pending Labs on day of discharge: Labs from last 24 hours 03/26/22 03/26/22 07:35 07:35 Hep Bs Antigen Negative Hep Bs Antibody Negative Hep B Core Total Ab Pending Discharge Plan Discharge Attending physician on discharge: Kirby Matute Consulting providers: Marcelle Howard Discharging Clinician: Cornelio Wen Patient Disposition: Home, Self-Care Activity: may shower, unlimited and as tolerated Diet: renal Discharge Instructions: Care Coordination: Patient to have Dialysis at [facility] in [place] on MWF at 10:00 AM. Take all medications as prescribed even if feeling better Continue dialysis on your scheduled days Eat well-balanced meals and do not over hydrate Follow-up with Nephrology as indicated If you should experience any chest pain, shortness a breath, fevers greater than 100.4 or any other worrisome symptoms follow-up with primary care provider come back to the ED Follow-up with her primary care provider in 1 week It has been a pleasure taking care of you thank you for using our services Patient Instructions: Antibiotic Form, Help Prevent Suicide (DC) Stand Alone Forms: General Discharge Information Follow-up/Referrals: Marcelle Howard MD [Physician] - Call for Appointment Justen Singer MD [Primary Care Provider] - Call for Appointment Discharge Medications: New albuterol sulfate [Ventolin HFA] 90 mcg/actuation HFA aerosol inhaler 2 puff inhalation QID PRN (Reason: shortness of breath or wheezing) Qty: 8.5 3RF Continued metoprolol tartrate 50 mg tablet 50 mg PO BID aspirin 325 mg tablet 325 mg PO DAILY B Com
--- NOTE | 2022-03-26 14:07 | PM.PNNEP ---
Progress Note: A&P Assessment and Plan (1) End stage renal disease: Code(s): N18.6 - End stage renal disease Status: Chronic Assessment and Plan: HD today and continue M/W/F schedule while hospitalized follow electrolytes, volume status, and clearance (2) COVID-19 virus infection: Code(s): U07.1 - COVID-19 Status: Acute Assessment and Plan: not requiring oxygen at the time of my visit would hold off on any further medications (remdesivir or steroids) continue supportive therapy (3) Hypertension: Code(s): I10 - Essential (primary) hypertension Status: Chronic Assessment and Plan: running a bit high resumed home medications - may improve with dialysis follow trend of hemodynamics (4) Anemia: Code(s): D64.9 - Anemia, unspecified Status: Chronic Assessment and Plan: due to ESRD Epogen with dialysis follow trend of H/H (5) Diabetes: Code(s): E11.9 - Type 2 diabetes mellitus without complications Status: Chronic Assessment and Plan: follow accuchecks glycemic control Will continue to follow. Subjective Date/time seen: 03/26/22 14:07 Tolerating hemodialysis treatment at the time of my visit (seen on HD at 1:45PM); no apparent distress noted at the time of my visit; stable oxygenation and respiratory status without the need for supplemental oxygen; no other issues/events overnight or earlier this AM. Exam Narrative: General: WD/WN Caucsian female in NAD Heart: normal S1 and S2; no rub Lungs: clear anteriorly, decreased at bases Abdomen: soft, nontender, nondistended, positive bowel sounds Extremities: no cyanosis or clubbing; no edema Skin: warm and dry Objective Data Vital Signs Vital Signs: Vital Signs Temp Pulse Resp BP Pulse Ox O2 Del Method O2 Flow Rate 03/26/22 12:42 97.9 F 70 18 179/76 H 03/26/22 09:00 Room Air 03/26/22 09:32 79 22 H 03/26/22 09:31 76 20 03/26/22 09:31 76 20 99 7 03/26/22 09:08 76 03/26/22 06:00 97.8 F 78 16 184/60 H 93 03/26/22 03:13 78 18 03/25/22 23:41 66 03/25/22 21:04 64 16 93 Room Air 03/25/22 21:04 64 16 03/25/22 22:00 97.5 F L 66 18 180/49 H 95 03/25/22 17:35 98 F 72 16 176/62 H 100 03/25/22 18:21 Room Air 03/25/22 17:08 67 15 184/57 H 97 03/25/22 17:03 68 17 94 03/25/22 16:50 67 17 93 03/25/22 16:37 63 17 95 03/25/22 16:15 71 15 98 03/25/22 16:00 63 21 H 98 03/25/22 15:54 67 22 H 97 03/25/22 15:40 76 14 96 03/25/22 15:17 68 16 191/72 H 93 03/25/22 15:15 81 18 93 03/25/22 16:28 59 L 14 03/25/22 16:17 69 16 Intake/Output Intake/Output: Intake & Output 03/23/22 03/24/22 03/25/22 03/26/22 23:59 23:59 23:59 23:59 Intake Total 180 720 Output Total 150 Balance 180 570 Meds/Results Medications: Active Medications Generic Name Dose Route Start Last Admin Trade Name Freq PRN Reason Stop Dose Admin Acetaminophen 650 mg 03/25/22 22:54 Acetaminophen 325 Mg Tablet BY MOUTH Q6H PRN Pain 1-3 or fever Albuterol 5 mg 03/25/22 20:00 03/26/22 15:06 Albuterol Sulfate Neb 2.5 Mg/3 Ml Inh INHALATION Not Given Q6HRT [facility] Allopurinol 300 mg 03/26/22 08:00 03/26/22 09:09 Allopurinol 300 Mg Tablet PO 300 mg DAILY@0800 [facility] Administration Aspirin 325 mg 03/26/22 08:00 03/26/22 09:08 Aspirin 325 Mg Tablet PO 325 mg DAILY@0800 [facility] Administration Buspirone HCl 10 mg 03/25/22 22:55 03/26/22 09:09 Buspirone Hcl 10 Mg Tablet PO 10 mg Q12HR [facility] Administration Enoxaparin Sodium 30 mg 03/26/22 09:00 03/26/22 10:28 Enoxaparin 30 Mg/0.3 Ml Syringe SUB-Q 30 mg DAILY [facility] Administration Epoetin Kelechi-epbx 10,000 units 03/26/22 17:00 Epoetin Kelechi-Epbx 10,000 Units/Ml Vial IV
[2022-03-30 19:30] LABS: Hepatitis B Core Ab Total Nonreactive (Nonreactive)
== END 2022-03-26 17:45 | disposition home or self-care (01) ==
LOC: ANHED 10:44 → ANH2MED 16:45
PROVIDERS: Internal Medicine Nephrology; Admitting Provider Internal Medicine; Emergency Provider Emergency Medicine; PCP Family Medicine Adolescent Medicine; Visit Provider Chiropractor
DX: U07.1 COVID-19 (principal); J96.01 Acute respiratory failure with hypoxia; F41.8 Other specified anxiety disorders; Z86.16 Personal history of COVID-19; E11.22 Type 2 diabetes mellitus with diabetic chronic kidney disease; D63.1 Anemia in chronic kidney disease; N18.6 End stage renal disease; E11.42 Type 2 diabetes mellitus with diabetic polyneuropathy; Z99.2 Dependence on renal dialysis; Z90.5 Acquired absence of kidney; K21.9 Gastro-esophageal reflux disease without esophagitis; K50.90 Crohn's disease, unspecified, without complications; E03.9 Hypothyroidism, unspecified; I25.10 Atherosclerotic heart disease of native coronary artery without angina pectoris; I73.9 Peripheral vascular disease, unspecified; N25.0 Renal osteodystrophy; G47.33 Obstructive sleep apnea (adult) (pediatric); Z99.89 Dependence on other enabling machines and devices; G25.81 Restless legs syndrome; I51.7 Cardiomegaly; J81.1 Chronic pulmonary edema; I44.0 Atrioventricular block, first degree; R94.31 Abnormal electrocardiogram [ECG] [EKG]; J98.11 Atelectasis; E87.70 Fluid overload, unspecified; Z95.5 Presence of coronary angioplasty implant and graft; F41.1 Generalized anxiety disorder; Z87.891 Personal history of nicotine dependence; Z85.528 Personal history of other malignant neoplasm of kidney; Z79.1 Long term (current) use of non-steroidal anti-inflammatories (NSAID); Z79.51 Long term (current) use of inhaled steroids; Z79.82 Long term (current) use of aspirin; Z79.891 Long term (current) use of opiate analgesic; Z79.899 Other long term (current) drug therapy; Z82.49 Family history of ischemic heart disease and other diseases of the circulatory system; Z82.3 Family history of stroke; Z80.51 Family history of malignant neoplasm of kidney; Z80.2 Family history of malignant neoplasm of other respiratory and intrathoracic organs
CPT/HCPCS: 36415; 71045; 78580; 80053; 85025; 85610; 85730; 86704; 86706; 87340; 93005; 94640; 96372; 99291; A9270; A9540; G0257; G0378; J1650; J7030

== ENCOUNTER 2022-06-01 07:13 | Inpatient (IN) | payer MEDICARE, SELFPAY ==
[2022-06-01] VITALS (11 sets, daily range): BP systolic 151–209; BP diastolic 54–85; PULSE 66–78; RESP 14–20; TEMP 36.1–36.3; O2SAT 93–100
--- NOTE | ~2022-06-01 | MR_ITS ---
MRI of the left foot Clinical History: osteomyelitis Technique: Sagittal T1-weighted and STIR images, coronal T1-weighted and T2 fat-sat images, and axial T1-weighted, T1 fat-sat, and T2 fat-sat images were performed. Following intravenous administration of 14 cc MultiHance gadolinium, T1-weighted fat-sat imaging was performed in the axial, coronal, and sagittal planes. Findings: There is hypointense T1 marrow signal involving the distal pharynx of the second digit with areas of cortical destruction, compatible with osteomyelitis. There is associated marrow edema withi n the second distal appendix on fluid sensitive sequences. No evidence of osteomyelitis at any other visualized locations. There is moderate to advanced degenerative change at the second and third tarso metatarsal joints. Flexor and extensor tendons are intact. There is mild edematous change throughout the visualized plan tar musculature of the foot. Visual is plantar fascia is intact. There is minimal nonspecific edemato us change of the medial hallux sesamoid. There is mild dorsal subcutaneous soft tissue edema. No evid ence for abscess. IMPRESSION: Osteomyelitis of the distal phalanx of the second digit. Moderate to advanced degenerative change of the second and third tarsometatarsal joints. Nonspecific mild edema of the medial hallux sesamoid. Nonspecific myositis the plantar muscular to the foot. Reviewed, dictated and finalized at location M. IMPRESSION: Osteomyelitis of the distal phalanx of the second digit. Moderate to advanced degenerative change of the second and third tarsometatarsa l joints. Nonspecific mild edema of the medial hallux sesamoid. Nonspecific myositis the plantar muscular to the foot.
--- NOTE | ~2022-06-01 | XR_ITS ---
XR foot LT min 3V 06/01/2022 09:10 Indication: Left foot pain. Diabetes. Procedure: 4 views left foot Comparison: 10/04/2015 Findings: There is a healed fifth metatarsal fracture proximally. Osteopenia. There is polyarticular osteoarthritis. Lisfranc joint appears to be intact. No acute fracture, subluxation or dislocation. N o focal there is subtle deformity of the tuft of the first distal phalanx which appears changed since prior examination, suspicious for erosion. Mild soft tissue swelling. Impression: 1: Possible erosive change tuft of the left first distal phalanx with overlying soft tissue swelling. Consider osteomyelitis in the appropriate clinical setting. Consider correlation with MRI. Reviewed, dictated and finalized at location A. Impression: 1: Possible erosive change tuft of the left first distal phalanx with overlying soft tissue swelling. Consider osteomyelitis in the appropriate clinical setti ng. Consider correlation with MRI.
--- NOTE | 2022-06-01 08:01 | ED.WOUNDLAC ---
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 Patient still me that she been on different antibiotic including Bactrim and Keflex without improvement. Last dialysis 2 days ago. History of diabetes not on any medications. She denies any fever, chills, nausea, vomiting Related Data Home Medications Medication Instructions Recorded Confirmed acetaminophen 650 mg tablet 650 mg PO Q6H PRN pain or fever 12/02/21 05/26/22 psyllium husk 0.52 gram capsule 0.52 g PO DAILY 12/02/21 05/26/22 (Fiber (psyllium husk)) aspirin 325 mg tablet 325 mg PO DAILY 12/26/21 05/26/22 metoprolol tartrate 50 mg tablet 50 mg PO BID 12/26/21 05/26/22 pantoprazole 40 mg tablet,delayed 40 mg PO QAM 12/26/21 05/26/22 release sevelamer carbonate 800 mg tablet 800 mg PO TID 12/26/21 05/26/22 vitamin B comp and C no.3 15 mg-10 1 cap PO DAILY 12/26/21 05/26/22 mg-50 mg-5 mg-300 mg capsule (B Complex Plus Vitamin C) lisinopril 20 mg tablet 40 mg PO DAILY 05/06/22 05/26/22 loperamide 2 mg tablet 2 mg PO BID PRN Diarrhea 05/06/22 05/26/22 Allergies Allergy/AdvReac Type Severity Reaction Status Date / Time cortisone Allergy Intermediate Dyspnea / Verified 05/26/22 14:46 SOB Penicillins Allergy Intermediate Dyspnea / Verified 05/26/22 14:46 SOB ceftriaxone [From Rocephin] Allergy Difficulty Verified 05/26/22 14:46 Breathing amlodipine AdvReac Intermediate Drowsy Verified 05/26/22 14:46 Review of Systems Review of Systems: All systems reviewed & are unremarkable except as noted in HPI and below PMFSH Past Medical History Medical History Anemia of chronic disease Coronary artery disease History of stent x3. COVID-19 Crohn's disease Depression with anxiety End-stage renal disease on hemodialysis Erythropoietin deficiency anemia Gastroesophageal reflux disease History of kidney stones Hypothyroidism Normal colonoscopy (08/2019) Obstructive sleep apnea No longer using CPAP after 40 lb weight loss. Pericardial effusion (~01/2020) Small pericardial effusion on echocardiogram, felt to be related to uremia. Peripheral vascular disease Peritonitis (~01/2020) Renal cell carcinoma (~2004) Renal osteodystrophy Restless leg syndrome Shingles (~1991) Surgical History Surgical History History of appendectomy History of bilateral carpal tunnel release History of cardiac catheterization With stent x3. History of cholecystectomy History of colonoscopy History of cystoscopy With ureteral stents for kidney stones. History of foot surgery Repair of left foot fracture with pinning. History of hysterectomy (~1976) With cystocele and rectocele repairs. History of partial nephrectomy (~2004) Left partial nephrectomy for kidney cancer. 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 Lost one son of [place] after COVID. Surrogate medical decision maker: Dong Maher, son. Code status: Full code. Smoking packs per day: 1 Smoking cig
[2022-06-01] MEDS: SODIUM CHLORIDE 0.9% IV 1,000 ML 999 ML IV CONT (08:33)
[2022-06-01] MEDS: METOPROLOL TARTRATE 50 MG TAB PO ×2 (08:34→21:00)
[2022-06-01] MEDS: lisinopriL 20 MG TABLET 40 MG PO (08:34)
[2022-06-01] MEDS: amLODIPine BESYLATE 5 MG TABLET PO (08:34)
[2022-06-01 08:36] LABS: Basophils Percent Auto 0.4 % (0.2-1.2); Eosinophils Absolute Auto 0.6 K/mm3 (0-0.3); Eosinophils Percent Auto 7.2 % (0-4.4); Hematocrit 33.3 % (37.0-47.0); Hemoglobin 10.2 g/dL (12.0-15.0); Immature Granulocyte Absolute 0.04 K/mm3 (0.00-0.031); Immature Granulocyte Percent A 0.5 % (0-0.5); Lymphocytes Absolute Auto 1.54 K/mm3 (0.9-3.2); Lymphocytes Percent Auto 19.2 % (18.3-44.2); Mean Corpuscular HGB Conc 30.6 g/dl (32-36); Mean Corpuscular Hemoglobin 29.2 pg (26-34); Mean Corpuscular Volume 95.4 fl (80-100); Mean Platelet Volume 8.9 fl (7.4-10.4); Monocytes Absolute Auto 0.7 K/mm3 (0.1-0.6); Monocytes Percent Auto 8.6 % (2.6-8.5); Neutrophils Absolute Auto 5.1 K/mm3 (1.3-6.7); Neutrophils Percent Auto 64.1 % (45.5-73.1); Platelet Count Result 231 k/mm3 (150-375); Red Blood Count 3.49 M/mm3 (4.2-5.4); Red Cell Distribution Width 14.4 % (11.5-14.5)
[2022-06-01 08:50] LABS: Lactic Acid Reflex 0.9 mmol/L (0.7-2.0)
[2022-06-01 08:52] LABS: Alanine Aminotransferase 18 U/L (6-35); Albumin Level 3.8 g/dL (3.5-5.1); Alkaline Phosphatase 134 U/L (38-126); Anion Gap 7 mmol/L (8-16); Aspartate Amino Transferase 23 U/L (14-36); Bilirubin,Total 0.4 mg/dL (0.2-1.3); Blood Urea Nitrogen 31 mg/dL (7-17); CRP 0.8 mg/dL (<1.0); Calcium 8.7 mg/dL (8.4-10.2); Carbon Dioxide 34 mmol/L (22-30); Chloride 101 mmol/L (98-107); Estimated CRCL calculation 7 ml/min; Estimated Glomerular Filt Rate 8; Glucose 144 mg/dL (65-110); Potassium 4.1 mmol/L (3.4-5.0); Sodium 142 mmol/L (137-145)
[2022-06-01] MEDS: MORPHINE SULFATE (*CRX) 4 MG/ML INJ IV PUSH (09:37)
[2022-06-01] MEDS: ONDANSETRON INJ 4 MG/2 ML VIAL IV PUSH (09:37)
--- NOTE | 2022-06-01 11:49 | ADMGEN ---
This patient, Layla Maher, was admitted to [facility] Surg Room 300-01. Patient/family oriented to hospital policies and general routines including ID bracelet, bed and alarms, visiting hours, pain management, procedures, bathroom and other care routines, personal items, smoking policy, room service/diet, and visiting hours. Information on how to activate the Rapid Response Team has been discussed. Patient/Family are encouraged to report perceived risks to care and to ask questions if they do not understand what they are told or what they should do.
[2022-06-01 11:56] LABS: Glucose Point of Care 159 mg/dl (65-105)
--- NOTE | 2022-06-01 13:00 | PM.IMHP ---
H&P: HPI History of Present Illness Date/Time: 06/01/22 13:00 Chief Complaint: Left toe infection. Narrative: This is a pleasant 77-year-old female with multiple medical problems including end-stage renal disease on hemodialysis, hypertension, hyperlipidemia, anemia of chronic kidney disease, renal osteodystrophy, renal cell carcinoma, sleep apnea, Crohn's disease, peripheral vascular disease, hypothyroidism, diet-controlled diabetes, and other comorbidities who presented to the emergency department from home for evaluation of a worsening left toe infection. Several weeks ago she noticed redness at the tip of her left 2nd toe surrounding a very small ulceration which seemed to develop at the site of a callus. She endorses a small amount of serosanguineous fluid and perhaps a small amount of pus but that seemed to dry up after soaking her foot in Epsom salts. She saw her doctor on 05/19/2022 and was started on Bactrim for 7 days. She finished the antibiotics and had a repeat exam a week thereafter at which time the callused areas on the 1st and 2nd toes was trimmed with a 15 blade and she was started on cephalexin 500 mg t.i.d.. Overall it appeared the wound had improved. She maintains compliance with antibiotic unfortunately the toe has gotten increasingly red and swollen. 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 Radiographs done in the ED showed possible erosive change at the tuft of the left 1st distal phalanx with overlying soft tissue swelling, possibly osteomyelitis. She has been started on empiric antibiotics and is being admitted in this setting for further treatment and evaluation. She has no current complaints and denies fever, chills, sweats, nausea, and vomiting. No history of multidrug resistant organisms. Review of Systems Review of Systems: Twelve systems were reviewed and are negative except for as per HPI. [facility] Past Medical History Medical History (Updated 06/01/22 @ 19:57 by Yvette Macias PA-C) Anemia of chronic disease Coronary artery disease History of stent x3. Crohn's disease Depression with anxiety Diet-controlled diabetes mellitus A1c was 7.0 in 10/2018 and 4.8 in 01/2020. End-stage renal disease on hemodialysis Erythropoietin deficiency anemia Gastroesophageal reflux disease History of kidney stones Hypothyroidism Normal colonoscopy (08/2019) Obstructive sleep apnea No longer using CPAP after 40 lb weight loss. Pericardial effusion (01/2020) Small pericardial effusion on echocardiogram, felt to be related to uremia. Peripheral vascular disease Peritonitis (01/2020) Renal cell carcinoma (2004) Renal osteodystrophy Restless leg syndrome Shingles (1991) Surgical History Surgical History (Updated 06/01/22 @ 13:11 by Yvette Macias PA-C) History of appendectomy History of bilateral carpal tunnel release History of cardiac catheterization With stent x3. History of cholecystectomy History of colonoscopy History of cystoscopy With ureteral stents for kidney stones. History of foot surgery Repair of left foot fracture with pinning. History of hysterectomy (1976) With cystocele and rectocele repairs. History of partial nephrectomy (2004) Left partial nephrectomy for kidney cancer. History of tonsillectomy Family History Family History Father Renal cell carcinoma Acute myocardial infarction Cerebrovascular accident Colon polyp Heart disease Hypertension Mother Lung cancer Acute myocardial infarction Cerebrovascular accident Depression Heart disease Hypertension Son Asthma Social History Social History (Updated 06/01/22 @ 19:51 by Yvette Macias PA-C) Social History: Surrogate medical decision maker: Dong Maher, son. Code status: Full code. Smoking packs per day: 1 Smoking cigare
[2022-06-01 16:45] LABS: Glucose Point of Care 144 mg/dl (65-105)
[2022-06-01] MEDS: HYDROcodone/acetaminophen (*CRX) 5-325 MG TABLET 1 TAB PO (16:55)
--- NOTE | 2022-06-01 17:43 | PC.NURSE ---
Pt arrived to the unit this morning. Pt is A&O4. Pt had family at bedside shortly after arrival. Pt went for MRI this afternoon. Pt family has requested that care coordination give them a call to talk about options for care of pt. Pt has open sore on bottom of great and first toe. Pt reports having pain in her toes. Pt was nervous and anxious about MRI. Pt had elevated blood pressure that was reported to provider at 1419. No new orders. Will continue to monitor pt.
[2022-06-01] MEDS: HEPARIN SODIUM 5,000 UNITS/ML VIAL 5000 UNITS SUB-Q (19:56)
[2022-06-01] MEDS: metroNIDAZOLE 500 MG/ISO 100ML 500 MG/100 ML BAG 100 MG IVPB (19:56)
[2022-06-01 23:49] LABS: Glucose Point of Care 148 mg/dl (65-105)
[2022-06-02] VITALS (20 sets, daily range): BP systolic 131–181; BP diastolic 44–91; PULSE 60–76; RESP 12–16; TEMP 36–37.2; O2SAT 91–100; BMI 29.7
[2022-06-02] MEDS: metroNIDAZOLE 500 MG/ISO 100ML 500 MG/100 ML BAG 100 MG IVPB ×4 (02:52→21:32)
[2022-06-02] MEDS: LEVOTHYROXINE SODIUM 75 MCG TABLET PO (05:32)
[2022-06-02] MEDS: HYDROcodone/acetaminophen (*CRX) 5-325 MG TABLET 1 TAB PO ×3 (05:37→21:34)
[2022-06-02 05:47] LABS: Hematocrit 30.3 % (37.0-47.0); Hemoglobin 9.3 g/dL (12.0-15.0); Mean Corpuscular HGB Conc 30.7 g/dl (32-36); Mean Corpuscular Hemoglobin 28.7 pg (26-34); Mean Corpuscular Volume 93.5 fl (80-100); Platelet Count Result 224 k/mm3 (150-375); Red Blood Count 3.24 M/mm3 (4.2-5.4); Red Cell Distribution Width 14.1 % (11.5-14.5); White Blood Count 8.4 K/mm3 (4.5-10.0)
[2022-06-02 05:54] LABS: Anion Gap 9 mmol/L (8-16); Blood Urea Nitrogen 43 mg/dL (7-17); Carbon Dioxide 26 mmol/L (22-30); Chloride 102 mmol/L (98-107); Estimated CRCL calculation 7 ml/min; Estimated Glomerular Filt Rate 7; Glucose 100 mg/dL (65-110); Magnesium 1.9 mg/dL (1.6-2.3); Potassium 4.4 mmol/L (3.4-5.0); Sodium 137 mmol/L (137-145)
[2022-06-02 05:59] LABS: Hemoglobin A1C 5.7 % (<5.7)
[2022-06-02 06:32] LABS: Hepatitis B Surface Antigen Negative (Negative)
[2022-06-02 06:38] LABS: HAV RESULT Negative (Negative); Hepatitis B Core IgM Result Negative (Negative)
[2022-06-02 06:50] LABS: Hepatitis B Surface Anti Res Positive; Hepatitis C Virus Antibody Negative (Negative)
[2022-06-02 07:44] LABS: Glucose Point of Care 133 mg/dl (65-105)
[2022-06-02] MEDS: ATORVASTATIN 40 MG TABLET PO (08:53)
[2022-06-02] MEDS: rOPINIRole HCL 0.5 MG TABLET PO ×2 (08:53→16:35)
[2022-06-02] MEDS: SERTRALINE HCL 50 MG TABLET 100 MG PO (08:53)
[2022-06-02] MEDS: PANTOPRAZOLE 40 MG TABLET PO (08:53)
[2022-06-02] MEDS: allopurinoL 300 MG TABLET PO (08:53)
[2022-06-02] MEDS: oxyBUTYnin CHLORIDE XL 5 MG TAB.ER.24 15 MG PO (08:53)
[2022-06-02] MEDS: busPIRone HCL 10 MG TABLET PO ×2 (08:53→16:35)
[2022-06-02] MEDS: SEVELAMER CARBONATE 800 MG TABLET PO ×3 (08:54→16:34)
[2022-06-02] MEDS: ASPIRIN 325 MG TABLET PO (08:54)
[2022-06-02] MEDS: HEPARIN SODIUM 5,000 UNITS/ML VIAL 5000 UNITS SUB-Q ×2 (08:59→21:33)
--- NOTE | 2022-06-02 11:04 | PM.CNNEP ---
Assessment and Plan Assessment and plan (1) End stage renal disease: Code(s): N18.6 - End stage renal disease Status: Chronic Assessment and Plan: HD today and continue M/W/F schedule while hospitalized follow electrolytes, volume status, and clearance (2) Cellulitis of toe of left foot: Code(s): L03.032 - Cellulitis of left toe Status: Acute Assessment and Plan: based on exam continue empiric antibiotics follow culture data admission radiographs show possible osteomyelitis of the left 1st toe - MRI ordered for further evaluation. (3) Hypertension: Code(s): I10 - Essential (primary) hypertension Status: Chronic Assessment and Plan: running a bit high this AM but better currently continue home medications follow trend of hemodynamics (4) Anemia: Code(s): D64.9 - Anemia, unspecified Status: Chronic Assessment and Plan: due to ESRD Epogen with dialysis follow trend of H/H (5) Diabetes: Code(s): E11.9 - Type 2 diabetes mellitus without complications Status: Deleted Assessment and Plan: follow accuchecks diet controlled at this time Will continue to follow. History of Present Illness Reason for Consult Consult date: 06/02/22 Reason for consult: end stage renal disease Chief Complaint Chief complaint: toe osteomyelitis History of Present Illness Narrative: The patient is a 77-year-old female with a past medical history as outlined below who presented to [facility] Room from home for further evaluation of worsening left toe wound. Several weeks ago, she noticed some redness at the tip of her left 2nd toe surrounding a very small ulceration which apparently had developed at the side of a callus. She treated this with soaking her foot in Epsom salts and then saw her primary care physician who started her on oral antibiotic therapy. She finished the antibiotics and saw her primary care physician a week after for further assessment. He apparently trim the area with a 15 blade and start her on Keflex for further treatment of a suspected underlying infection. Unfortunately, despite the antibiotic therapy, the wound on her left 2nd toe became increasingly more erythematous, swollen and tender to touch. Given this issue, she presented to the ER for further assessment. Workup and evaluation emergency room demonstrated the patient be hemodynamically stable and routine blood test demonstrated labs consistent with her known history of end-stage renal disease. Imaging studies of her left foot showed possible erosive changes at the tuft of the left 1st distal phalanx with overlying soft tissue swelling and possibly osteomyelitis. Given this radiological finding, appropriate cultures were obtained and she was started on broad-spectrum IV antibiotic therapy with subsequent admission to the hospital for further evaluation and therapy. Renal consultation was requested due to her end-stage renal disease. The patient normally dialyzes on a Thursday, Thursday, Thursday dialysis schedule at [facility] dialysis under the care of Dr. Jamshid Joe. From a dialysis perspective, she has been doing reasonably well and has been compliant with her treatments. She has relative stability in her electrolytes, volume status, clearance have been noted by monthly labs. Her last outpatient dialysis treatment was on Thursday, (05/30/2022) and is due for dialysis today. Currently, she is receiving dialysis at the time of my visit (seen on HD at 11:00AM) and appears to be tolerating it well. Review of Systems Review of Systems: As per HPI. [facility] Past Medical History Medical History Anemia of chronic disease Coronary artery disease History of stent x3. Crohn's disease Depression with anxiety Diet-controlled diabetes mellitus A1c was 7.0 in 10/2018 an
[2022-06-02 11:43] LABS: Glucose Point of Care 136 mg/dl (65-105)
[2022-06-02] MEDS: SILVERGEL (ELTA) 45 ML 1 APPLIC TOPICAL (13:41)
--- NOTE | 2022-06-02 14:55 | PM.IMPN ---
Progress Note: A&P Assessment and Plan (1) Diabetic foot ulcer: Code(s): E11.621 - Type 2 diabetes mellitus with foot ulcer; L97.509 - Non-pressure chronic ulcer of other part of unspecified foot with unspecified severity Status: Acute Assessment and Plan: She has callused ulcers on the tips of the left 1st and 2nd toes as detailed in HPI. Encouraged to follow-up with podiatry at least on a yearly basis as she is a diabetic though diet-controlled. 06/02/2022 interval history: 77 y/o female with left 2nd toe necrosis, erythema, and painful, presented to ER and MRI is suspicious for OM of the left second toe, patient is being treated with levofloxacin, flagyl, and vancomycin, will consult orthopedic surgeon for further recommendation, will follow up. Patient ESRD-HD seen by her chocolate molder and will have scheudled dialysis. (2) Cellulitis of toe of left foot: Code(s): L03.032 - Cellulitis of left toe Status: Acute Assessment and Plan: Continue empiric vancomycin, metronidazole, and levofloxacin. Encouraged elevation of affected extremity. (3) Osteomyelitis of toe of left foot: Code(s): M86.9 - Osteomyelitis, unspecified Status: Acute Assessment and Plan: Radiograph show possible osteomyelitis affecting the tuft of the left 1st toe. Continue empiric antibiotics as above. MRI pending. (4) Diet-controlled diabetes mellitus: Code(s): E11.9 - Type 2 diabetes mellitus without complications Status: Acute Assessment and Plan: Initiate sliding scale insulin, Accu-Cheks, and hypoglycemic protocol. Check hemoglobin A1c. (5) End-stage renal disease on hemodialysis: Code(s): N18.6 - End stage renal disease; Z99.2 - Dependence on renal dialysis Status: Acute Assessment and Plan: Nephrology consulted for dialysis. (6) Anemia of chronic disease: Code(s): D63.8 - Anemia in other chronic diseases classified elsewhere Status: Acute Assessment and Plan: Stable on review of previous labs. (7) Hypertension: Code(s): I10 - Essential (primary) hypertension Status: Chronic Assessment and Plan: Blood pressures have been running high though she does seem a bit anxious. Continue antihypertensives and monitor closely. Blood pressures would be trended and adjustments can be made if indicated. (8) Hypothyroidism: Code(s): E03.9 - Hypothyroidism, unspecified Status: Chronic Assessment and Plan: Continue levothyroxine and check TSH. Subjective Date/time seen: 06/02/22 14:55 HPI-Narrative: This is a pleasant 77-year-old female with multiple medical problems including end-stage renal disease on hemodialysis, hypertension, hyperlipidemia, anemia of chronic kidney disease, renal osteodystrophy, renal cell carcinoma, sleep apnea, Crohn's disease, peripheral vascular disease, hypothyroidism, diet-controlled diabetes, and other comorbidities who presented to the emergency department from home for evaluation of a worsening left toe infection. Several weeks ago she noticed redness at the tip of her left 2nd toe surrounding a very small ulceration which seemed to develop at the site of a callus. She endorses a small amount of serosanguineous fluid and perhaps a small amount of pus but that seemed to dry up after soaking her foot in Epsom salts. She saw her doctor on 05/19/2022 and was started on Bactrim for 7 days. She finished the antibiotics and had a repeat exam a week thereafter at which time the callused areas on the 1st and 2nd toes was trimmed with a 15 blade and she was started on cephalexin 500 mg t.i.d.. Overall it appeared the wound had improved. She maintains compliance with antibiotic unfortunately the toe has gotten increasingly red and swollen. 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
[2022-06-02] MEDS: ALPRAZolam (*CRX) 0.125 MG TABLET PO (15:00)
--- NOTE | 2022-06-02 16:00 | PM.CNOR ---
Assessment and Plan Assessment and plan (1) Osteomyelitis of toe of left foot: Code(s): M86.9 - Osteomyelitis, unspecified Status: Acute Assessment and Plan: History, exam and radiographs/MRI reviewed with the patient. Discussed condition, nature, etiology and course of natural history. Conservative and operative treatment options discussed. Amputation of the 2nd ray of the left foot vs. conservative treatment with termination clerk IV antibiotics reviewed. Patient would like to further consider and discuss with family. Continue IV antibiotics in the interim. Continue daily dressing change as indicated by [facility] wound clinic nurses. Will reevaluate with the patient/Dr. Moran tomorrow to determine further plan of care. (2) Cellulitis of toe of left foot: Code(s): L03.032 - Cellulitis of left toe Status: Acute (3) Diabetic foot ulcer: Code(s): E11.621 - Type 2 diabetes mellitus with foot ulcer; L97.509 - Non-pressure chronic ulcer of other part of unspecified foot with unspecified severity Status: Acute Assessment and Plan: Defer management to medicine team. (4) Chronic kidney disease with end stage renal failure on dialysis: Code(s): N18.6 - End stage renal disease; Z99.2 - Dependence on renal dialysis Status: Acute Assessment and Plan: Nephrology following. (5) Hypertension: Code(s): I10 - Essential (primary) hypertension Status: Chronic History of Present Illness HPI Consult date: 06/02/22 Chief complaint: toe osteomyelitis Narrative: 77 year old female with a history of a 2nd left toe ulcer. Attempted treatment by her PCP with oral antibiotics with only mild improvement. Worsening of symptoms and pain prompted evaluation in the ED. Radiographs of the left foot revealed a possible erosive change tuft of the left first distal phalanx with overlying soft tissue swelling. MRI obtained which reveals osteomyelitis of the distal phalanx of the second digit and nonspecific mild edema of the medial hallux sesamoid. Patient admitted for IV antibiotics. Patient is also on HD. Orthopedic consult requested. Review of Systems Review of Systems: Twelve systems were reviewed and are negative except for as per HPI. [facility] Past Medical History Medical History Anemia of chronic disease Coronary artery disease History of stent x3. Crohn's disease Depression with anxiety Diet-controlled diabetes mellitus A1c was 7.0 in 10/2018 and 4.8 in 01/2020. End-stage renal disease on hemodialysis Erythropoietin deficiency anemia Gastroesophageal reflux disease History of kidney stones Hypothyroidism Normal colonoscopy (08/2019) Obstructive sleep apnea No longer using CPAP after 40 lb weight loss. Pericardial effusion (01/2020) Small pericardial effusion on echocardiogram, felt to be related to uremia. Peripheral vascular disease Peritonitis (01/2020) Renal cell carcinoma (2004) Renal osteodystrophy Restless leg syndrome [place] (1991) Surgical History Surgical History History of appendectomy History of bilateral carpal tunnel release History of cardiac catheterization With stent x3. History of cholecystectomy History of colonoscopy History of cystoscopy With ureteral stents for kidney stones. History of foot surgery Repair of left foot fracture with pinning. History of hysterectomy (1976) With cystocele and rectocele repairs. History of partial nephrectomy (2004) Left partial nephrectomy for kidney cancer. History of tonsillectomy Family History Family History Father Renal cell carcinoma Acute myocardial infarction Cerebrovascular accident Colon polyp Heart disease Hypertension Mother Lung cancer Acute myocardial infarction Cerebrovascular accident Depression Heart disease Hypertensi
[2022-06-02 16:52] LABS: Glucose Point of Care 160 mg/dl (65-105)
[2022-06-02 21:17] LABS: Glucose Point of Care 138 mg/dl (65-105)
[2022-06-02] MEDS: METOPROLOL TARTRATE 50 MG TAB PO (21:34)
[2022-06-03] MEDS: metroNIDAZOLE 500 MG/ISO 100ML 500 MG/100 ML BAG 100 MG IVPB ×4 (02:35→20:29)
[2022-06-03 05:31] VITALS: BP 184/66; PULSE 74; RESP 18; TEMP 36.3; O2SAT 95
[2022-06-03] MEDS: LEVOTHYROXINE SODIUM 75 MCG TABLET PO (06:26)
[2022-06-03 06:37] LABS: Hematocrit 29.7 % (37.0-47.0); Hemoglobin 9.1 g/dL (12.0-15.0); Mean Corpuscular HGB Conc 30.6 g/dl (32-36); Mean Corpuscular Hemoglobin 28.4 pg (26-34); Mean Corpuscular Volume 92.8 fl (80-100); Mean Platelet Volume 9.1 fl (7.4-10.4); Platelet Count Result 219 k/mm3 (150-375); Red Cell Distribution Width 14.2 % (11.5-14.5); White Blood Count 8.7 K/mm3 (4.5-10.0)
[2022-06-03 06:47] LABS: Albumin Level 3.3 g/dL (3.5-5.1); Anion Gap 5 mmol/L (8-16); Blood Urea Nitrogen 32 mg/dL (7-17); Calcium 8.6 mg/dL (8.4-10.2); Carbon Dioxide 29 mmol/L (22-30); Chloride 106 mmol/L (98-107); Estimated CRCL calculation 10 ml/min; Estimated Glomerular Filt Rate 10; Glucose 106 mg/dL (65-110); Magnesium 1.9 mg/dL (1.6-2.3); Phosphorus 3.8 mg/dL (2.5-4.5); Potassium 4.5 mmol/L (3.4-5.0); Sodium 140 mmol/L (137-145)
[2022-06-03 06:51] VITALS: BP 170/78
[2022-06-03 07:50] LABS: Glucose Point of Care 114 mg/dl (65-105)
[2022-06-03] MEDS: SERTRALINE HCL 50 MG TABLET 100 MG PO (08:11)
[2022-06-03] MEDS: oxyBUTYnin CHLORIDE XL 5 MG TAB.ER.24 15 MG PO (08:12)
[2022-06-03] MEDS: allopurinoL 300 MG TABLET PO (08:12)
[2022-06-03] MEDS: busPIRone HCL 10 MG TABLET PO ×2 (08:12→18:03)
[2022-06-03] MEDS: lisinopriL 20 MG TABLET 40 MG PO (08:12)
[2022-06-03] MEDS: ATORVASTATIN 40 MG TABLET PO (08:12)
[2022-06-03] MEDS: rOPINIRole HCL 0.5 MG TABLET PO ×2 (08:12→18:03)
[2022-06-03] MEDS: SEVELAMER CARBONATE 800 MG TABLET PO ×3 (08:12→18:03)
[2022-06-03] MEDS: METOPROLOL TARTRATE 50 MG TAB PO ×2 (08:12→20:30)
[2022-06-03] MEDS: amLODIPine BESYLATE 5 MG TABLET PO (08:12)
[2022-06-03] MEDS: PSYLLIUM SUGAR FREE POWDER PACKET 1 PACKET PO (08:13)
[2022-06-03] MEDS: PANTOPRAZOLE 40 MG TABLET PO (08:13)
--- NOTE | 2022-06-03 11:18 | P.PNNP_ITS ---
Progress Note: A&P Assessment and Plan (1) End stage renal disease: Code(s): N18.6 - End stage renal disease Status: Chronic Assessment and Plan: * HD tomorrow and continue M/W/F schedule while hospitalized * follow electrolytes, volume status, and clearance (2) Cellulitis of toe of left foot: Code(s): L03.032 - Cellulitis of left toe Status: Acute Assessment and Plan: * based on exam * continue empiric antibiotics * follow culture data * complicated by #3 (3) Osteomyelitis of toe of left foot: Code(s): M86.9 - Osteomyelitis, unspecified Status: Acute Assessment and Plan: * as noted by imaging to date (X-ray and MRI) * Orthopedic recommendations noted -- surgery versus ongoing conservative therapy * patient appears to be leaning toward surgical intervention * continue antibiotics for now (4) Hypertension: Code(s): I10 - Essential (primary) hypertension Status: Chronic Assessment and Plan: * somewhat erratic at baseline * continue home medications * follow trend of hemodynamics (5) Anemia: Code(s): D64.9 - Anemia, unspecified Status: Chronic Assessment and Plan: * due to ESRD * Epogen with dialysis * follow trend of H/H (6) Diabetes: Code(s): E11.9 - Type 2 diabetes mellitus without complications Status: Deleted Assessment and Plan: * follow blood sugars * diet controlled at this time Will continue to follow. Subjective Date/time seen: 06/03/22 11:18 Tolerated hemodialysis treatment yesterday without any issues or problems; reduce pain in foot/toes since IV antibiotic therapy initiated; no apparent distress voiced at the time of my visit. Exam Narrative: General: WD/WN female in NAD Heart: normal S1 and S2; no rub Lungs: clear to auscultation Abdomen: soft, nontender, nondistended, positive bowel sounds Extremities: no cyanosis or clubbing; no edema Skin: mild erythema noted on left 2nd toe Objective Data Vital Signs Vital Signs: Vital Signs Temp Pulse Resp BP Pulse Ox O2 Del Method 06/03/22 06:51 170/78 H 06/03/22 05:31 97.4 F L 74 18 184/66 H 95 06/02/22 21:00 76 16 97 Room Air 06/02/22 21:34 76 06/02/22 21:31 97.9 F 74 16 156/61 H 97 06/02/22 14:00 98.2 F 69 16 149/44 H 100 06/02/22 13:27 98.2 F 66 12 163/69 H 06/02/22 13:06 61 132/61 06/02/22 13:00 63 131/59 L 06/02/22 12:40 63 141/61 H 06/02/22 12:20 62 138/67 06/02/22 12:00 60 135/61 06/02/22 11:40 63 149/63 H 06/02/22 11:20 65 142/65 H Intake/Output Intake/Output: Intake & Output 05/31/22 06/01/22 06/02/22 06/03/22 23:59 23:59 23:59 23:59 Intake Total 2138 2420 440 Output Total 4175 Balance 2138 -8484 440 Meds/Results Medications: Active Medications Generic Name Dose Route Start Last Admin Trade Name Freq PRN Reason Stop Dose Admin Acetaminophen 650 mg 06/01/22 13:15 Acetaminophen 325 Mg Tablet PO Q6H PRN Mild Pain (1-3) or Fever
--- NOTE | 2022-06-03 11:18 | PM.PNNEP ---
Progress Note: A&P Assessment and Plan (1) End stage renal disease: Code(s): N18.6 - End stage renal disease Status: Chronic Assessment and Plan: HD tomorrow and continue M/W/F schedule while hospitalized follow electrolytes, volume status, and clearance (2) Cellulitis of toe of left foot: Code(s): L03.032 - Cellulitis of left toe Status: Acute Assessment and Plan: based on exam continue empiric antibiotics follow culture data complicated by #3 (3) Osteomyelitis of toe of left foot: Code(s): M86.9 - Osteomyelitis, unspecified Status: Acute Assessment and Plan: as noted by imaging to date (X-ray and MRI) Orthopedic recommendations noted -- surgery versus ongoing conservative therapy patient appears to be leaning toward surgical intervention continue antibiotics for now (4) Hypertension: Code(s): I10 - Essential (primary) hypertension Status: Chronic Assessment and Plan: somewhat erratic at baseline continue home medications follow trend of hemodynamics (5) Anemia: Code(s): D64.9 - Anemia, unspecified Status: Chronic Assessment and Plan: due to ESRD Epogen with dialysis follow trend of H/H (6) Diabetes: Code(s): E11.9 - Type 2 diabetes mellitus without complications Status: Deleted Assessment and Plan: follow blood sugars diet controlled at this time Will continue to follow. Subjective Date/time seen: 06/03/22 11:18 Tolerated hemodialysis treatment yesterday without any issues or problems; reduce pain in foot/toes since IV antibiotic therapy initiated; no apparent distress voiced at the time of my visit. Exam Narrative: General: WD/WN female in NAD Heart: normal S1 and S2; no rub Lungs: clear to auscultation Abdomen: soft, nontender, nondistended, positive bowel sounds Extremities: no cyanosis or clubbing; no edema Skin: mild erythema noted on left 2nd toe Objective Data Vital Signs Vital Signs: Vital Signs Temp Pulse Resp BP Pulse Ox O2 Del Method 06/03/22 06:51 170/78 H 06/03/22 05:31 97.4 F L 74 18 184/66 H 95 06/02/22 21:00 76 16 97 Room Air 06/02/22 21:34 76 06/02/22 21:31 97.9 F 74 16 156/61 H 97 06/02/22 14:00 98.2 F 69 16 149/44 H 100 06/02/22 13:27 98.2 F 66 12 163/69 H 06/02/22 13:06 61 132/61 06/02/22 13:00 63 131/59 L 06/02/22 12:40 63 141/61 H 06/02/22 12:20 62 138/67 06/02/22 12:00 60 135/61 06/02/22 11:40 63 149/63 H 06/02/22 11:20 65 142/65 H Intake/Output Intake/Output: Intake & Output 05/31/22 06/01/22 06/02/22 06/03/22 23:59 23:59 23:59 23:59 Intake Total 2135 2420 440 Output Total 4175 Balance 2138 -8956 440 Meds/Results Medications: Active Medications Generic Name Dose Route Start Last Admin Trade Name Freq PRN Reason Stop Dose Admin Acetaminophen 650 mg 06/01/22 13:15 Acetaminophen 325 Mg Tablet PO Q6H PRN Mild Pain (1-3) or Fever Hydrocodone Bitart/Acetaminophen 1 tab 06/01/22 13:15 06/02/22 21:34 Hydrocodone/Acetaminophen (*Crx) 5-325 Mg Tablet PO 1 tab Q6H PRN Administration Pain Rated 4-6 Albuterol 2 puff 06/01/22 19:59 Albuterol Sulfate (*Sp) Aerosol 1 Puff INHALATION QID PRN shortness of breath or wheezing Allopurinol 300 mg 06/02/22 09:00 06/03/22 08:12 Allopurinol 300 Mg Tablet PO 300 mg DAILY SUKI Administration Amlodipine Besylate 5 mg 06/02/22 09:00 06/03/22 08:12 Amlodipine Besylate 5 Mg Tablet PO 5 mg DAILY SUKI Administration Aspirin 325 mg 06/02/22 09:00 06/02/22 08:54 Aspirin 325 Mg Tablet PO 325 mg DAILY SUKI Administration Atorvastatin Calcium 40 mg 06/02/22 09:00 06/03/22 08:12 Atorvastatin 40 Mg Tablet PO 40 mg DAILY SUKI Administration Buspirone HCl 10 mg 06/02/22 09:00
--- NOTE | 2022-06-03 11:52 | P.CDI_ITS ---
CDI Query Clarified Diagnosis Clarified Diagnosis: Please clarify if there is a cause and effect relationship between Cellulitis and Diabetes Mellitus. * Cellulitis is related to Diabetes Mellitus. * Cellulitis is not related to Diabetes Mellitus * Unknown if Cellulitis is related to Diabetes Mellitus. <Leila Weber RN - Last Filed: 06/03/22 11:59> Provider Comments Patient with cellulitis most likely multifactorial secondary to diabetes and peripheral vascular disease. <Shakeel Centeno MD - Last Filed: 06/16/22 15:50>
[2022-06-03 12:08] LABS: Glucose Point of Care 215 mg/dl (65-105)
[2022-06-03] MEDS: ASPIRIN 325 MG TABLET PO (12:14)
[2022-06-03] MEDS: HEPARIN SODIUM 5,000 UNITS/ML VIAL 5000 UNITS SUB-Q ×2 (12:15→20:29)
[2022-06-03] MEDS: SILVERGEL (ELTA) 45 ML 1 APPLIC TOPICAL (12:15)
--- NOTE | 2022-06-03 13:12 | PM.IMPN ---
Progress Note: A&P Assessment and Plan (1) Diabetic foot ulcer: Code(s): E11.621 - Type 2 diabetes mellitus with foot ulcer; L97.509 - Non-pressure chronic ulcer of other part of unspecified foot with unspecified severity Status: Acute Assessment and Plan: She has callused ulcers on the tips of the left 1st and 2nd toes as detailed in HPI. Encouraged to follow-up with podiatry at least on a yearly basis as she is a diabetic though diet-controlled. 06/03/2022 interval history: 77 y/o female with left 2nd toe necrosis, erythema, and painful, presented to ER and MRI is suspicious for OM of the left second toe, patient is being treated with levofloxacin, flagyl, and vancomycin, today patient was seen by a orthopedic surgeon and scheduled to have surgery to amputate left 2nd distal phalanx on 06/05, will follow up. Patient with ESRD-HD seen by her head of mathematics and will have scheduled dialysis. (2) Cellulitis of toe of left foot: Code(s): L03.032 - Cellulitis of left toe Status: Acute Assessment and Plan: Continue empiric vancomycin, metronidazole, and levofloxacin. Encouraged elevation of affected extremity. (3) Osteomyelitis of toe of left foot: Code(s): M86.9 - Osteomyelitis, unspecified Status: Acute Assessment and Plan: Radiograph show possible osteomyelitis affecting the tuft of the left 1st toe. Continue empiric antibiotics as above. MRI pending. (4) Diet-controlled diabetes mellitus: Code(s): E11.9 - Type 2 diabetes mellitus without complications Status: Acute Assessment and Plan: Initiate sliding scale insulin, Accu-Cheks, and hypoglycemic protocol. Check hemoglobin A1c. (5) End-stage renal disease on hemodialysis: Code(s): N18.6 - End stage renal disease; Z99.2 - Dependence on renal dialysis Status: Acute Assessment and Plan: Nephrology consulted for dialysis. (6) Anemia of chronic disease: Code(s): D63.8 - Anemia in other chronic diseases classified elsewhere Status: Acute Assessment and Plan: Stable on review of previous labs. (7) Hypertension: Code(s): I10 - Essential (primary) hypertension Status: Chronic Assessment and Plan: Blood pressures have been running high though she does seem a bit anxious. Continue antihypertensives and monitor closely. Blood pressures would be trended and adjustments can be made if indicated. (8) Hypothyroidism: Code(s): E03.9 - Hypothyroidism, unspecified Status: Chronic Assessment and Plan: Continue levothyroxine and check TSH. Subjective Date/time seen: 06/03/22 13:12 She has callused ulcers on the tips of the left 1st and 2nd toes as detailed in HPI. Encouraged to follow-up with podiatry at least on a yearly basis as she is a diabetic though diet-controlled. 06/03/2022 interval history: 77 y/o female with left 2nd toe necrosis, erythema, and painful, presented to ER and MRI is suspicious for OM of the left second toe, patient is being treated with levofloxacin, flagyl, and vancomycin, today patient was seen by a orthopedic surgeon and scheduled to have surgery to amputate left 2nd distal planx on 06/05, will follow up. Patient with ESRD-HD seen by her head of mathematics and will have scheduled dialysis. Objective Data Vital Signs Vital Signs: Vital Signs - 24 hr 06/02/22 13:27 06/02/22 14:00 06/02/22 21:31 Temperature 98.2 F 98.2 F 97.9 F Pulse Rate 66 69 74 Respiratory Rate 12 16 16 Blood Pressure 163/69 H 149/44 H 156/61 H Pulse Oximetry 100 97 Oxygen Delivery 06/02/22 21:34 06/02/22 21:00 06/03/22 05:31 Temperature 97.4 F L Pulse Rate 76 76 74 Respiratory Rate 16 18 Blood Pressure 184/66 H Pulse Oximetry 97 95 Oxygen Delivery Room Air 06/03/22 06:51 Temperature Pulse Rate Respiratory Rate Blood Pressure 170/78 H Pulse Oximetry Oxygen Delivery Intake/Output Intake/Ou
[2022-06-03 14:00] VITALS: BP 163/59; PULSE 71; RESP 18; TEMP 36.4; O2SAT 98
[2022-06-03] MEDS: HYDROcodone/acetaminophen (*CRX) 5-325 MG TABLET 1 TAB PO (14:19)
--- NOTE | 2022-06-03 15:42 | PM.PNORT ---
Progress Note: A&P Assessment and Plan (1) Osteomyelitis of toe of left foot: Code(s): M86.9 - Osteomyelitis, unspecified Status: Acute Assessment and Plan: treatment options including IV antibiotics versus surgical treatment reviewed with patient. Risks, benefits and alternatives discussed in detail. Questions answered. She would like to consider options. Continue IV antibiotics in the interim. Dressing change with silver gel daily. Will follow up to discuss final treatment plan. Subjective Subjective Date/Time Seen: 06/03/22 15:42 Principal diagnosis: Left 2nd toe osteo Exam Const: General: comfortable and no acute distress HENMT: Mouth: Yes moist mucous membranes Eyes: General: appearance normal, both eyes and all related structures Neck: Neck: supple and no JVD Resp: Effort & Inspection: normal respiratory effort Cardio: Rate: regular rate Rhythm: regular rhythm GI: Inspection: non-distended GI Palp: Yes Soft to palpation and No Tenderness to palpation present (GI) Neuro: General: gait normal Cognition (Neuro): normal cognition Speech: normal speech Extrem: Left lower extremity: ankle Details: normal to inspection and no edema; no tenderness and no swelling and foot (see below ) Details: toes with normal ROM, vascular exam Details: dorsalis pedis pulse present, tendon exam active flexion normal and motor-sensory exam two point discrimination abnormal and light-touch abnormal; abnormal capillary refill (sluggish ), no ecchymosis and no crepitus Other: Ulcer on the distal aspect of the left 2nd toe measures 0.5x0.5x0.3cm. Unable to probe beneath skin surface. Unable to palpate bone. No malodor. No purulence. Scant sanguinous drainage. Mild erythema. Palpable pedal pulses. Limited sensation due to neuropathy at baseline. Abrasion to the plantar hallux without signs of infection. Right foot without ulcer. Psych: Mental Status: mental status grossly normal Affect: normal affect Objective Data Vital Signs Vital Signs: Vital Signs - 24 hr 06/02/22 21:31 06/02/22 21:34 06/02/22 21:00 Temperature 97.9 F Pulse Rate 74 76 76 Respiratory Rate 16 16 Blood Pressure 156/61 H Pulse Oximetry 97 97 Oxygen Delivery Room Air 06/03/22 05:31 06/03/22 06:51 06/03/22 14:00 Temperature 97.4 F L 97.5 F L Pulse Rate 74 71 Respiratory Rate 18 18 Blood Pressure 184/66 H 170/78 H 163/59 H Pulse Oximetry 95 98 Oxygen Delivery Intake/Output Intake/Output: Intake & Output 05/31/22 06/01/22 06/02/22 06/03/22 23:59 23:59 23:59 23:59 Intake Total 2132 2420 680 Output Total 4175 Balance 2138 -175 680 Meds/Results Medications: Active Medications Generic Name Dose Route Start Last Admin Trade Name Freq PRN Reason Stop Dose Admin Acetaminophen 650 mg 06/01/22 13:15 Acetaminophen 325 Mg Tablet PO Q6H PRN Mild Pain (1-3) or Fever Hydrocodone Bitart/Acetaminophen 1 tab 06/01/22 13:15 06/03/22 14:19 Hydrocodone/Acetaminophen (*Crx) 5-325 Mg Tablet PO 1 tab Q6H PRN Administration Pain Rated 4-6 Albuterol 2 puff 06/01/22 19:59 Albuterol Sulfate (*Sp) Aerosol 1 Puff INHALATION QID PRN shortness of breath or wheezing Allopurinol 300 mg 06/02/22 09:00 06/03/22 08:12 Allopurinol 300 Mg Tablet PO 300 mg DAILY SUKI Administration Amlodipine Besylate 5 mg 06/02/22 09:00 06/03/22 08:12 Amlodipine Besylate 5 Mg Tablet PO 5 mg DAILY SUKI Administration Aspirin 325 mg 06/02/22 09:00 06/03/22 12:14 Aspirin 325 Mg Tablet PO 325 mg DAILY SUKI Administration Atorvastatin Calcium 40 mg 06/02/22 09:00 06/03/22 08:12 Atorvastatin 40 Mg Tablet PO 40 mg DAILY SUKI Administration Buspirone HCl 10 mg 06/02/22 09:00 06/03/22 08:12 Buspirone Hcl 10 Mg Tablet PO 10 mg BID SUKI Administration Dextrose 12.5 gm 06/01/22 13:15 Dextrose 50% 25 Gm/50 Ml Syringe IV PUSH PRN [facility]
[2022-06-03 16:44] LABS: Glucose Point of Care 106 mg/dl (65-105)
[2022-06-03] MEDS: levoFLOXacin 500 MG/D5W 100 ML 500 MG/100 ML BAG 66.67 MG IVPB (18:03)
[2022-06-03 20:30] VITALS: PULSE 74
[2022-06-03 20:50] VITALS: BP 155/62; PULSE 58; RESP 16; TEMP 36.4; O2SAT 100
[2022-06-03 20:59] LABS: Glucose Point of Care 140 mg/dl (65-105)
[2022-06-04] VITALS (21 sets, daily range): BP systolic 146–193; BP diastolic 56–80; PULSE 65–82; RESP 16–23; TEMP 36–36.8; O2SAT 98–100
[2022-06-04] MEDS: HYDROcodone/acetaminophen (*CRX) 5-325 MG TABLET 1 TAB PO ×2 (01:16→06:42)
[2022-06-04] MEDS: metroNIDAZOLE 500 MG/ISO 100ML 500 MG/100 ML BAG 100 MG IVPB ×4 (03:01→21:14)
[2022-06-04] MEDS: LEVOTHYROXINE SODIUM 75 MCG TABLET PO (05:46)
[2022-06-04 06:35] LABS: Hematocrit 32.7 % (37.0-47.0); Hemoglobin 10.1 g/dL (12.0-15.0); Mean Corpuscular HGB Conc 30.9 g/dl (32-36); Mean Corpuscular Hemoglobin 28.4 pg (26-34); Mean Corpuscular Volume 91.9 fl (80-100); Mean Platelet Volume 9.6 fl (7.4-10.4); Platelet Count Result 236 k/mm3 (150-375); Red Blood Count 3.56 M/mm3 (4.2-5.4); Red Cell Distribution Width 14.2 % (11.5-14.5); White Blood Count 8.9 K/mm3 (4.5-10.0)
[2022-06-04 07:24] LABS: Albumin Level 3.8 g/dL (3.5-5.1); Anion Gap 9 mmol/L (8-16); Blood Urea Nitrogen 45 mg/dL (7-17); Calcium 8.9 mg/dL (8.4-10.2); Carbon Dioxide 27 mmol/L (22-30); Chloride 104 mmol/L (98-107); Estimated CRCL calculation 8 ml/min; Estimated Glomerular Filt Rate 7; Glucose 100 mg/dL (65-110); Magnesium 1.8 mg/dL (1.6-2.3); Phosphorus 3.7 mg/dL (2.5-4.5); Potassium 4.6 mmol/L (3.4-5.0); Sodium 140 mmol/L (137-145)
[2022-06-04 07:39] LABS: Glucose Point of Care 116 mg/dl (65-105)
[2022-06-04] MEDS: SILVERGEL (ELTA) 45 ML 1 APPLIC TOPICAL (08:02)
[2022-06-04] MEDS: oxyBUTYnin CHLORIDE XL 5 MG TAB.ER.24 15 MG PO (08:03)
[2022-06-04] MEDS: SERTRALINE HCL 50 MG TABLET 100 MG PO (08:03)
[2022-06-04] MEDS: rOPINIRole HCL 0.5 MG TABLET PO ×2 (08:04→16:50)
[2022-06-04] MEDS: SEVELAMER CARBONATE 800 MG TABLET PO ×3 (08:04→16:50)
[2022-06-04] MEDS: HEPARIN SODIUM 5,000 UNITS/ML VIAL 5000 UNITS SUB-Q (08:04)
[2022-06-04] MEDS: ASPIRIN 325 MG TABLET PO (08:04)
[2022-06-04] MEDS: PANTOPRAZOLE 40 MG TABLET PO (08:04)
[2022-06-04] MEDS: ATORVASTATIN 40 MG TABLET PO (08:04)
[2022-06-04] MEDS: allopurinoL 300 MG TABLET PO (08:04)
[2022-06-04] MEDS: busPIRone HCL 10 MG TABLET PO ×2 (08:04→16:49)
[2022-06-04 08:21] LABS: Vancomycin Random 9.4 ug/mL (10-20)
[2022-06-04 11:33] LABS: Glucose Point of Care 102 mg/dl (65-105)
--- NOTE | 2022-06-04 13:05 | PM.PNNEP ---
Progress Note: A&P Assessment and Plan (1) End stage renal disease: Code(s): N18.6 - End stage renal disease Status: Chronic Assessment and Plan: HD today and continue M/W/F schedule while hospitalized follow electrolytes, volume status, and clearance (2) Cellulitis of toe of left foot: Code(s): L03.032 - Cellulitis of left toe Status: Acute Assessment and Plan: based on exam continue empiric antibiotics follow culture data complicated by #3 (3) Osteomyelitis of toe of left foot: Code(s): M86.9 - Osteomyelitis, unspecified Status: Acute Assessment and Plan: as noted by imaging to date (X-ray and MRI) Orthopedic recommendations noted patient wants to pursue surgical intervention continue antibiotics for now (4) Hypertension: Code(s): I10 - Essential (primary) hypertension Status: Chronic Assessment and Plan: somewhat erratic at baseline continue home medications follow trend of hemodynamics (5) Anemia: Code(s): D64.9 - Anemia, unspecified Status: Chronic Assessment and Plan: due to ESRD Epogen with dialysis follow trend of H/H (6) Diabetes: Code(s): E11.9 - Type 2 diabetes mellitus without complications Status: Deleted Assessment and Plan: follow blood sugars diet controlled at this time Will continue to follow. Subjective Date/time seen: 06/04/22 13:05 Tolerating dialysis treatment at the time of my visit (seen on HD at 12:50PM); no apparent distress noted; has made decision to proceed with surgery regarding left toe which may tentatively be scheduled for tomorrow. Exam Narrative: General: WD/WN female in NAD Heart: normal S1 and S2; no rub Lungs: clear to auscultation Abdomen: soft, nontender, nondistended, positive bowel sounds Extremities: no cyanosis or clubbing; no edema Skin: mild erythema noted on left 2nd toe Objective Data Vital Signs Vital Signs: Vital Signs Temp Pulse Resp BP Pulse Ox 06/04/22 12:00 70 157/67 H 06/04/22 11:40 70 150/74 H 06/04/22 11:20 70 159/62 H 06/04/22 11:00 70 156/60 H 06/04/22 10:40 69 146/66 H 06/04/22 10:20 69 151/63 H 06/04/22 10:00 65 148/74 H 06/04/22 09:47 66 172/80 H 06/04/22 09:31 98.3 F 67 16 180/77 H 06/04/22 07:42 65 06/04/22 05:36 98.1 F 72 16 185/56 H 100 06/03/22 20:50 97.5 F L 58 L 16 155/62 H 100 06/03/22 20:30 74 06/03/22 14:00 97.5 F L 71 18 163/59 H 98 Intake/Output Intake/Output: Intake & Output 06/01/22 06/02/22 06/03/22 06/04/22 23:59 23:59 23:59 23:59 Intake Total 2138 2420 1520 640 Output Total 4175 200 300 Balance 2138 -1755 1320 340 Meds/Results Medications: Active Medications Generic Name Dose Route Start Last Admin Trade Name Freq PRN Reason Stop Dose Admin Acetaminophen 650 mg 06/01/22 13:15 Acetaminophen 325 Mg Tablet PO Q6H PRN Mild Pain (1-3) or Fever Hydrocodone Bitart/Acetaminophen 1 tab 06/01/22 13:15 06/04/22 06:42 Hydrocodone/Acetaminophen (*Crx) 5-325 Mg Tablet PO 1 tab Q6H PRN Administration Pain Rated 4-6 Albuterol 2 puff 06/01/22 19:59 Albuterol Sulfate (*Sp) Aerosol 1 Puff INHALATION QID PRN shortness of breath or wheezing Allopurinol 300 mg 06/02/22 09:00 06/04/22 08:04 Allopurinol 300 Mg Tablet PO 300 mg DAILY SUKI Administration Amlodipine Besylate 5 mg 06/02/22 09:00 06/04/22 07:42 Amlodipine Besylate 5 Mg Tablet PO Not Given DAILY SUKI Aspirin 325 mg 06/02/22 09:00 06/04/22 08:04 Aspirin 325 Mg Tablet PO 325 mg DAILY SUKI Administration Atorvastatin Calcium 40 mg 06/02/22 09:00 06/04/22 08:04 Atorvastatin 40 Mg Tablet PO 40 mg DAILY SUKI Administration Buspirone HCl 10 mg 06/02/22 09:00 06/04/22 08:04 Buspirone Hcl 10 Mg Tablet PO 10 mg
[2022-06-04] MEDS: EPOETIN ALFA-EPBX 10,000 UNITS/ML VIAL 10000 UNITS IV PUSH (13:11)
--- NOTE | 2022-06-04 16:14 | PC.NURSE ---
On 06/04/22, the student, Narciso Wilkinson, provided care and completed [facility] documentation on this patient. I have reviewed the student's documentation and agree with the findings.
--- NOTE | 2022-06-04 17:32 | PM.PNORT ---
Progress Note: A&P Assessment and Plan (1) Osteomyelitis of toe of left foot: Code(s): M86.9 - Osteomyelitis, unspecified Status: Acute Assessment and Plan: further discussion with the patient regarding left 2nd toe infection. Findings on radiographs and MRI reviewed. Current treatment with IV antibiotics discussed. Surgical treatment with toe amputation reviewed in detail. The risks, benefits and alternatives of operative and non operative treatment were reviewed in detail. All of her questions were answered. She would like to proceed with surgical treatment. We discussed amputation of the left 2nd toe. Discussed nonoperative and operative treatment options with the patient. Risks and benefits of each as well as alternatives were reviewed. All of the patient's questions were answered. The risks of surgery reviewed including but not limited to: Neurovascular damage, wound complication, infection, blood clot, pulmonary embolus, stroke, myocardial infarction, and anesthetic risks up to and including . Continued pain and possible dysfunction were explained. Specific risks of the procedure including later recurrence of deformity. No guarantees were offered. If hardware used, discussed risk of failure/ breakage and possible need for removal. If complications occur, the patient understands the need for further treatment, possible further surgery. Patient verbalizes understanding and wishes to proceed. PLAN: Amputation 2nd toe left foot. (2) Diabetic foot ulcer: Qualifiers: Diabetic foot ulcer location: toe Diabetes mellitus type: type 2 Laterality: left Non-pressure ulcer stage: with necrosis of bone Qualified Code(s): E11.621 - Type 2 diabetes mellitus with foot ulcer; L97.524 - Non-pressure chronic ulcer of other part of left foot with necrosis of bone Code(s): E11.621 - Type 2 diabetes mellitus with foot ulcer; L97.509 - Non-pressure chronic ulcer of other part of unspecified foot with unspecified severity Status: Acute (3) Acute osteomyelitis of toe: Qualifiers: Laterality: left Qualified Code(s): M86.172 - Other acute osteomyelitis, left ankle and foot Code(s): M86.179 - Other acute osteomyelitis, unspecified ankle and foot Status: Acute Subjective Subjective Date/Time Seen: 06/04/22 17:32 Principal diagnosis: Left 2nd toe osteomyelitis Interval history: patient complains of pain distal aspect of the 2nd toe. We reviewed treatment options once again. She would like to proceed with surgery. Review of Systems Constitutional: Constitutional: Denies fever(s) Eyes: Eyes: Denies blurry vision ENT: Reports Normal hearing present Cardiovascular: Cardiovascular: Denies chest pain and Denies dyspnea Respiratory: Respiratory: Denies dyspnea and Denies wheezing Gastrointestinal: Gastrointestinal: Denies abdominal pain Genitourinary: Genitourinary: Denies urinary urgency Musculoskeletal: Musculoskeletal: Reports as per HPI and Denies numbness Integumentary/Breasts: Skin/Breast: Denies changing lesions and Denies sores Neurologic: Reports Normal hearing present, Denies behavioral changes, Denies confusion, Denies numbness and Denies convulsions Psychiatric: Psychiatric: Denies behavioral changes, Denies confusion and Denies hallucinations Endocrine: Endocrine: Denies heat intolerance Hematologic/Lymphatic: Hematologic/Lymphatic: Denies easy bleeding Allergic/Immunologic: Allergic/Immunologic: Denies wheezing Exam Const: General: comfortable and no acute distress HENMT: Mouth: Yes moist mucous membranes Eyes: General: appearance normal, both eyes and all related structures Neck: Neck: supple and no JVD Resp: Effort & Inspection: normal respiratory effort Cardio: Rate: regular rate Rhythm: regular rhythm GI: Inspection: non-distended GI Palp: Yes Soft to palpation and No Tenderness to palpation present (GI) Neuro
[2022-06-04] MEDS: METOPROLOL TARTRATE 50 MG TAB PO (21:14)
[2022-06-05] VITALS (15 sets, daily range): BP systolic 110–192; BP diastolic 47–73; PULSE 60–72; RESP 12–18; TEMP 36–37.1; O2SAT 93–100
[2022-06-05] MEDS: metroNIDAZOLE 500 MG/ISO 100ML 500 MG/100 ML BAG 100 MG IVPB ×4 (03:18→20:11)
[2022-06-05 06:29] LABS: Hematocrit 32.2 % (37.0-47.0); Mean Corpuscular HGB Conc 31.1 g/dl (32-36); Mean Corpuscular Hemoglobin 28.9 pg (26-34); Mean Corpuscular Volume 93.1 fl (80-100); Mean Platelet Volume 9.4 fl (7.4-10.4); Platelet Count Result 205 k/mm3 (150-375); Red Blood Count 3.46 M/mm3 (4.2-5.4); Red Cell Distribution Width 14.2 % (11.5-14.5); White Blood Count 6.1 K/mm3 (4.5-10.0)
[2022-06-05 06:41] LABS: Albumin Level 3.3 g/dL (3.5-5.1); Anion Gap 7 mmol/L (8-16); Blood Urea Nitrogen 33 mg/dL (7-17); Calcium 8.3 mg/dL (8.4-10.2); Carbon Dioxide 29 mmol/L (22-30); Chloride 102 mmol/L (98-107); Estimated CRCL calculation 12 ml/min; Estimated Glomerular Filt Rate 12; Glucose 109 mg/dL (65-110); Magnesium 1.8 mg/dL (1.6-2.3); Phosphorus 2.7 mg/dL (2.5-4.5); Potassium 3.8 mmol/L (3.4-5.0); Sodium 138 mmol/L (137-145)
[2022-06-05] MEDS: SILVERGEL (ELTA) 45 ML 1 APPLIC TOPICAL (08:02)
--- NOTE | 2022-06-05 08:43 | WPDHPUPDATE1 ---
History and Physical Update Update Date/Time: 06/05/22 08:43 History and Physical has been reviewed, including an updated exam of the patient. There are NO changes in the patient's condition. Risks, benefits, and alternatives have been discussed and questions answered. Patient agrees to proceed with procedure.
--- NOTE | 2022-06-05 10:24 | PM.IMPN ---
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 Encouraged elevation of affected extremity. (3) Osteomyelitis of toe of left foot: Code(s): M86.9 - Osteomyelitis, unspecified Status: Acute Assessment and Plan: Radiograph show possible osteomyelitis affecting the tuft of the left 1st toe. Continue empiric antibiotics as above. MRI pending. (4) Diet-controlled diabetes mellitus: Code(s): E11.9 - Type 2 diabetes mellitus without complications Status: Acute Assessment and Plan: Initiate sliding scale insulin, Accu-Cheks, and hypoglycemic protocol. Check hemoglobin A1c. (5) End-stage renal disease on hemodialysis: Code(s): N18.6 - End stage renal disease; Z99.2 - Dependence on renal dialysis Status: Acute Assessment and Plan: Nephrology consulted for dialysis. (6) Anemia of chronic disease: Code(s): D63.8 - Anemia in other chronic diseases classified elsewhere Status: Acute Assessment and Plan: Stable on review of previous labs. (7) Hypertension: Code(s): I10 - Essential (primary) hypertension Status: Chronic Assessment and Plan: Blood pressures have been running high though she does seem a bit anxious. Continue antihypertensives and monitor closely. Blood pressures would be trended and adjustments can be made if indicated. (8) Hypothyroidism: Code(s): E03.9 - Hypothyroidism, unspecified Status: Chronic Assessment and Plan: Continue levothyroxine and check TSH. Subjective Date/time seen: 06/05/22 10:24 No new complaints Exam Narrative: General: Chronically ill-appearing female sitting at side of the bed in no distress. Weight: 70 kg. BMI: 27.3. HEENT: Wearing corrective lenses. PERRL, EOMI. Sclera anicteric. Oral mucosa moist. . Neck: Supple. Respiratory: Lungs are clear to auscultation bilaterally. Cardiovascular: Regular rate and rhythm with S1-S2. Murmur verse bruit from AV fistula. Gastrointestinal: Abdomen is soft, nontender, and nondistended with positive bowel sounds. Skin: Warm and dry. Callused ulcerations at the tip of the left 1st and 2nd toes. Unable to express drainage at this time. She is tender to palpation, more so about the left 2nd toe, where there is more erythema and edema comparatively. Edema and to a lesser extent erythema extends onto the dorsum of the foot and an lower leg. Extremities: No cyanosis or clubbing. She has some edema of the left lower leg. Left upper extremity AV fistula with palpable thrill and bruit. Peripheral pulses intact. Neurological: Alert. Cranial nerves 2-12 are grossly intact. No gross focal deficits to casual conversation. Psychiatric: Pleasant and cooperative with normal mood and affect. Judgment and insight intact. Objective Data Vital Signs Vital Signs: Vital Signs - 24 hr 06/04/22 10:40 06/04/22 11:00 06/04/22 11:20 Temperature Pulse Rate 69 70 70 Respiratory Rate Blood Pressure 146/66 H 156/60 H 159/62 H Pulse Oximetry 06/04/22 11:40 06/04/22 12:00 06/04/22 12:20 Temperature Pulse Rate 70 70 73 Respiratory Rate Blood Pressure 150/74 H 157/67 H 167/77 H
[2022-06-05] MEDS: METOPROLOL TARTRATE 50 MG TAB PO ×2 (13:11→20:12)
[2022-06-05] MEDS: amLODIPine BESYLATE 5 MG TABLET PO (13:11)
--- NOTE | 2022-06-05 13:41 | WPDANESEPPF ---
Anes - Initial Pre Proc Eval Procedure: Operation Date: 06/05/22 14:30 Proposed Procedures p Toe Amputation Left Second Toe(Left) - Simeon Moran MD Date/Time: 06/05/22 13:41 Surgeon: Shakeel Centeno MD Pre Op Diagnosis: toe osteomyelitis Patient Data Age: 77 Gender: F Height: 1.6 m Weight: 76.147 kg Last Vital Signs Temp 36.2 C L 06/05/22 04:52 Pulse 68 06/05/22 13:11 Resp 16 06/05/22 04:52 BP 191/63 H 06/05/22 04:52 Pulse Ox 98 06/05/22 04:52 O2 Del Method Room Air 06/02/22 21:00 Allergies Allergy/AdvReac Type Severity Reaction Status Date / Time cortisone Allergy Intermediate Dyspnea / Verified 06/01/22 12:09 SOB Penicillins Allergy Intermediate Dyspnea / Verified 06/01/22 12:09 SOB [facility] Allergy Difficulty Verified 06/01/22 12:09 Breathing Home Medications Medication Instructions Recorded Confirmed Type allopurinol 300 mg tablet 300 mg PO DAILY #90 tabs 06/24/21 06/01/22 Rx acetaminophen 650 mg tablet 650 mg PO Q6H PRN pain or fever 12/02/21 06/01/22 History psyllium husk 0.52 gram capsule 0.52 g PO DAILY 12/02/21 06/01/22 History (Fiber (psyllium husk)) sertraline 100 mg tablet 100 mg PO DAILY #90 tabs 12/02/21 06/01/22 Rx aspirin 325 mg tablet 325 mg PO DAILY 12/26/21 06/01/22 History metoprolol tartrate 50 mg tablet 50 mg PO BID 12/26/21 06/01/22 History pantoprazole 40 mg tablet,delayed 40 mg PO QAM 12/26/21 06/01/22 History release sevelamer carbonate 800 mg tablet 800 mg PO TID 12/26/21 06/01/22 History levothyroxine 75 mcg tablet 75 mcg PO DAILY #90 tabs 12/31/21 06/01/22 Rx oxybutynin chloride 15 mg 15 mg PO DAILY #30 tabs 01/07/22 06/01/22 Rx tablet,extended release 24 hr ropinirole 0.5 mg tablet 0.5 mg PO BID #60 tabs 02/18/22 06/01/22 Rx albuterol sulfate 90 mcg/actuation 2 puff inhalation QID PRN 03/26/22 06/01/22 Rx aerosol inhaler (Ventolin HFA) shortness of breath or wheezing #8.5 grams amlodipine 5 mg tablet 5 mg PO DAILY #90 tabs 05/06/22 06/01/22 Rx atorvastatin 40 mg tablet 40 mg PO DAILY #90 tabs 05/06/22 06/01/22 Rx lisinopril 20 mg tablet 40 mg PO DAILY 05/06/22 06/01/22 History loperamide 2 mg tablet 2 mg PO BID PRN Diarrhea 05/06/22 06/01/22 History oxycodone 10 mg tablet 10 mg PO TID PRN pain #90 tabs 05/06/22 06/01/22 Rx buspirone 10 mg tablet 10 mg PO BID #60 tabs 05/12/22 06/01/22 Rx cephalexin 500 mg capsule 500 mg PO TID #30 caps 05/26/22 06/01/22 Rx ergocalciferol (vitamin D2) 1,250 50,000 mcg PO WEEKLY 06/01/22 06/01/22 History mcg (50,000 unit) capsule Laboratory Tests 06/05/22 06/05/22 05:51 05:51 WBC 6.1 K/mm3 K/mm3 (4.5-10.0) RBC 3.46 M/mm3 L M/mm3 (4.2-5.4) Hgb 10.0 g/dL L g/dL (12.0-15.0) Hct 32.2 % L % (37.0-47.0) MCV 93.1 fl fl (80-100) MCH 28.9 pg pg (26-34) MCHC 31.1 g/dl L g/dl (32-36) RDW 14.2 % % (11.5-14.5) Plt Count 205 k/mm3 k/mm3 (150-375) MPV 9.4 fl fl (7.4-10.4) Sodium 138 mmol/L mmol/L (137-145) Potassium 3.8 mmol/L mmol/L (3.4-5.0) Chloride 102 mmol/L mmol/L (98-107) Carbon Dioxide 29 mmol/L mmol/L (22-30) Anion Gap 7 mmol/L L mmol/L (8-16) BUN 33 mg/dL H D mg/dL (7-17) Creatinine 3.60 mg/dL H mg/dL (0.7-1.0) Estim Creat Clear Calc 12 ml/min ml/min Estimated GFR 12 L (59 - ) Glucose 109 mg/dL mg/dL (65-110) Calcium 8.3 mg/dL L mg/dL (8.4-10.2) Phosphorus 2.7 mg/dL mg/dL (2.5-4.5) Magnesium 1.8 mg/dL mg/dL (1.6-2.3) Albumin 3.3 g/dL L g/dL (3.5-5.1) Patient hx anesthesia problems: none Family hx anesthesia problems: none Results Review: All pre-operative results and documents have been reviewed as part of the pre-operative evaluation. [facility] Past Medical History Medical History Anemi
[2022-06-05] MEDS: BUPivacaine HCL 0.5% 10 ML AMP 20 ML INFILTRATE (14:22)
[2022-06-05] MEDS: fentaNYL CITRATE INJ (*CRX) 100 MCG/2 ML VIAL 25 MCG IV PUSH ×4 (15:22→15:42)
--- NOTE | 2022-06-05 15:38 | W.PM.PROC2 ---
Procedure Note - Detailed Date of Procedure 06/05/22 Pre-op Diagnosis toe osteomyelitis Post-op Diagnosis Same Procedure Performed Left 2nd toe amputation Surgeon Simeon Moran MD [employer] 1st clinical education assistant Anesthesia MAC Indications 77-year-old with diabetes and peripheral neuropathy with osteomyelitis left 2nd toe. Presents for amputation. Description of Procedure Patient identified in the preoperative holding. Informed consent given. Operative extremity marked. Patient received intravenous antibiotics. Patient brought to the operating room where underwent Intravenous sedation anesthetic by anesthesia team. Positioned supine on operating room table. Time-out performed confirming the patient, site of the surgery and the plan. left foot prepped draped usual sterile surgical fashion using a ChloraPrep skin solution. Elliptical incision made at the middle portion of the left 2nd toe. The distal end of the toe was necrotic and had osteomyelitis changes at the distal phalanx. There was an ulcer present. Amputation level was chosen to provide adequate soft tissue for coverage of the bone. Soft tissue was then dissected off the bone circumferentially which was at the PIP joint level. The joint was then Released circumferentially and the distal toe was passed off as specimen. Articular surface of the distal aspect of the proximal phalanx removed with a rongeur. Wound irrigated. Capsule was repaired with 3 0 Monocryl interrupted suture. Skin repaired with 4 O nylon interrupted suture. Sterile dressing applied. The patient was then woken from anesthesia, extubated and taken to the recovery room in stable condition. All sponge, needle, instrument counts were correct at the end of the case. Urine Output 100
[2022-06-05 15:41] LABS: Glucose Point of Care 112 mg/dl (65-105)
--- NOTE | 2022-06-05 16:06 | PC.NURSE ---
Returned from OR per [[id number]]. Report received from [Cece].
[2022-06-05] MEDS: SODIUM CHLORIDE 0.9% IV 1,000 ML 125 ML IV CONT (16:14)
[2022-06-05] MEDS: SEVELAMER CARBONATE 800 MG TABLET PO (16:38)
[2022-06-05] MEDS: rOPINIRole HCL 0.5 MG TABLET PO (16:38)
[2022-06-05] MEDS: busPIRone HCL 10 MG TABLET PO (16:39)
[2022-06-05] MEDS: ceFAZolin 1 GM/NS 50 ML 1 GM/50 ML BAG IVPB (17:27)
[2022-06-05] MEDS: HYDROcodone/acetaminophen (*CRX) 5-325 MG TABLET 1 TAB PO ×2 (17:33→22:04)
[2022-06-05] MEDS: levoFLOXacin 500 MG/D5W 100 ML 500 MG/100 ML BAG 66.67 MG IVPB (18:23)
[2022-06-05] MEDS: HEPARIN SODIUM 5,000 UNITS/ML VIAL 5000 UNITS SUB-Q (20:16)
[2022-06-06] VITALS (20 sets, daily range): BP systolic 129–204; BP diastolic 58–92; PULSE 57–76; RESP 16–22; TEMP 36.3–36.7; O2SAT 97–100
[2022-06-06] MEDS: ceFAZolin 1 GM/NS 50 ML 1 GM/50 ML BAG IVPB ×2 (01:00→14:08)
[2022-06-06] MEDS: metroNIDAZOLE 500 MG/ISO 100ML 500 MG/100 ML BAG 100 MG IVPB ×2 (05:48→15:07)
[2022-06-06] MEDS: LEVOTHYROXINE SODIUM 75 MCG TABLET PO (05:58)
[2022-06-06] MEDS: HYDROcodone/acetaminophen (*CRX) 5-325 MG TABLET 1 TAB PO ×2 (06:14→12:17)
[2022-06-06 06:29] LABS: Hematocrit 33.2 % (37.0-47.0); Hemoglobin 10.1 g/dL (12.0-15.0); Mean Corpuscular HGB Conc 30.4 g/dl (32-36); Mean Corpuscular Hemoglobin 27.9 pg (26-34); Mean Corpuscular Volume 91.7 fl (80-100); Mean Platelet Volume 9.5 fl (7.4-10.4); Platelet Count Result 210 k/mm3 (150-375); Red Blood Count 3.62 M/mm3 (4.2-5.4); Red Cell Distribution Width 14.1 % (11.5-14.5); White Blood Count 6.7 K/mm3 (4.5-10.0)
[2022-06-06 06:43] LABS: Albumin Level 3.4 g/dL (3.5-5.1); Anion Gap 10 mmol/L (8-16); Blood Urea Nitrogen 42 mg/dL (7-17); Calcium 8.7 mg/dL (8.4-10.2); Carbon Dioxide 25 mmol/L (22-30); Chloride 104 mmol/L (98-107); Estimated CRCL calculation 8 ml/min; Estimated Glomerular Filt Rate 8; Glucose 93 mg/dL (65-110); Magnesium 1.9 mg/dL (1.6-2.3); Phosphorus 3.6 mg/dL (2.5-4.5); Potassium 4.2 mmol/L (3.4-5.0); Sodium 139 mmol/L (137-145)
[2022-06-06 09:02] LABS: Vancomycin Random 7.2 ug/mL (10-20)
--- NOTE | 2022-06-06 09:19 | PM.PNORT ---
Progress Note: A&P Assessment and Plan (1) Osteomyelitis of toe of left foot: Code(s): M86.9 - Osteomyelitis, unspecified Status: Acute Assessment and Plan: POD #1: Left 2nd toe amputation Intraoperative pathology pending. Dressing changed. Incision well approximated. Viable tissue noted. Change dressing daily with adaptic, gauze, kerlex and coband. Continue antibiotics. Okay to transition to oral at discharge. May require assistance with dressing changes at home with HH. PWB on heel with post op shoe. Okay to utilize cane/walker for assistance. Work restrictions reviewed. Dispo: Home when medically cleared Plan for follow up in 3 weeks for suture removal. (2) Diabetic foot ulcer: Qualifiers: Diabetic foot ulcer location: toe Diabetes mellitus type: type 2 Laterality: left Non-pressure ulcer stage: with necrosis of bone Qualified Code(s): E11.621 - Type 2 diabetes mellitus with foot ulcer; L97.524 - Non-pressure chronic ulcer of other part of left foot with necrosis of bone Code(s): E11.621 - Type 2 diabetes mellitus with foot ulcer; L97.509 - Non-pressure chronic ulcer of other part of unspecified foot with unspecified severity Status: Acute Assessment and Plan: Discussed importance of proper nutrition, diabetic diet and medication compliance for optimal healing. Reviewed signs and symptoms of infection including fever, chills, night sweats, nausea, vomiting, diarrhea, changes to the wound bed or purulent drainage to report to immediately once discharged. Patient verbalized understanding. (3) Acute osteomyelitis of toe: Qualifiers: Laterality: left Qualified Code(s): M86.172 - Other acute osteomyelitis, left ankle and foot Code(s): M86.179 - Other acute osteomyelitis, unspecified ankle and foot Status: Acute Subjective Subjective Date/Time Seen: 06/06/22 09:19 Post Op day: 2 Interval history: POD #1: Left 2nd toe amputation Patient doing well today. Hopeful for d/c home after HD. No new concerns. Review of Systems Constitutional: Constitutional: Denies fever(s) Eyes: Eyes: Denies blurry vision ENT: Reports Normal hearing present Cardiovascular: Cardiovascular: Denies chest pain and Denies dyspnea Respiratory: Respiratory: Denies dyspnea and Denies wheezing Gastrointestinal: Gastrointestinal: Denies abdominal pain Genitourinary: Genitourinary: Denies urinary urgency Musculoskeletal: Musculoskeletal: Reports as per HPI and Denies numbness Integumentary/Breasts: Skin/Breast: Denies changing lesions and Denies sores Neurologic: Reports Normal hearing present, Denies behavioral changes, Denies confusion, Denies numbness and Denies convulsions Psychiatric: Psychiatric: Denies behavioral changes, Denies confusion and Denies hallucinations Endocrine: Endocrine: Denies heat intolerance Hematologic/Lymphatic: Hematologic/Lymphatic: Denies easy bleeding Allergic/Immunologic: Allergic/Immunologic: Denies wheezing Exam Const: General: comfortable and no acute distress HENMT: Mouth: Yes moist mucous membranes Eyes: General: appearance normal, both eyes and all related structures Neck: Neck: supple and no JVD Resp: Effort & Inspection: normal respiratory effort Cardio: Rate: regular rate Rhythm: regular rhythm GI: Inspection: non-distended GI Palp: Yes Soft to palpation and No Tenderness to palpation present (GI) Neuro: General: gait normal Cognition (Neuro): normal cognition Speech: normal speech Extrem: Left lower extremity: ankle Details: normal to inspection and no edema; no tenderness and no swelling and foot (see below ) Details: toes with normal ROM, vascular exam Details: dorsalis pedis pulse present, tendon exam active flexion normal and motor-sensory exam two point discrimination abnormal and light-touch abnormal; abnormal capillary refill (sluggish ), no ecchymosis and no crepitus Other: s/p left 2
--- NOTE | 2022-06-06 12:34 | PM.DS ---
DS: Admitting Diagnosis Discharge Date June 06, 2022 Admitting Diagnosis Osteomyelitis of the 2nd toe DS: Discharge Diagnosis Discharge Diagnosis (1) Diabetic foot ulcer: Qualifiers: Diabetic foot ulcer location: toe Diabetes mellitus type: type 2 Laterality: left Non-pressure ulcer stage: with necrosis of bone Qualified Code(s): E11.621 - Type 2 diabetes mellitus with foot ulcer; L97.524 - Non-pressure chronic ulcer of other part of left foot with necrosis of bone Code(s): E11.621 - Type 2 diabetes mellitus with foot ulcer; L97.509 - Non-pressure chronic ulcer of other part of unspecified foot with unspecified severity Status: Acute Assessment and Plan: Surgery planned (2) Cellulitis of toe of left foot: Code(s): L03.032 - Cellulitis of left toe Status: Acute Assessment and Plan: Continue empiric vancomycin, metronidazole, and levofloxacin. Encouraged elevation of affected extremity. (3) Osteomyelitis of toe of left foot: Code(s): M86.9 - Osteomyelitis, unspecified Status: Acute Assessment and Plan: Radiograph show possible osteomyelitis affecting the tuft of the left 1st toe. Continue empiric antibiotics as above. MRI pending. (4) Diet-controlled diabetes mellitus: Code(s): E11.9 - Type 2 diabetes mellitus without complications Status: Acute Assessment and Plan: Initiate sliding scale insulin, Accu-Cheks, and hypoglycemic protocol. Check hemoglobin A1c. (5) End-stage renal disease on hemodialysis: Code(s): N18.6 - End stage renal disease; Z99.2 - Dependence on renal dialysis Status: Acute Assessment and Plan: Nephrology consulted for dialysis. (6) Anemia of chronic disease: Code(s): D63.8 - Anemia in other chronic diseases classified elsewhere Status: Acute Assessment and Plan: Stable on review of previous labs. (7) Hypertension: Code(s): I10 - Essential (primary) hypertension Status: Chronic Assessment and Plan: Blood pressures have been running high though she does seem a bit anxious. Continue antihypertensives and monitor closely. Blood pressures would be trended and adjustments can be made if indicated. (8) Hypothyroidism: Code(s): E03.9 - Hypothyroidism, unspecified Status: Chronic Assessment and Plan: Continue levothyroxine and check TSH. DS: Summary Hospital Course Hospital Course: 77-year-old female came in with osteomyelitis on her 2nd toe on her left foot. Started on antibiotics and Orthopedics was consulted and patient ultimately had amputation. Doing well. Discharge on antibiotics x1 week. Time Spent with Patient Time attestation: Total time spent providing and/or coordinating discharge services: Exam Narrative: General: Chronically ill-appearing female sitting at side of the bed in no distress. Weight: 70 kg. BMI: 27.3. HEENT: Wearing corrective lenses. PERRL, EOMI. Sclera anicteric. Oral mucosa moist. . Neck: Supple. Respiratory: Lungs are clear to auscultation bilaterally. Cardiovascular: Regular rate and rhythm with S1-S2. Murmur verse bruit from AV fistula. Gastrointestinal: Abdomen is soft, nontender, and nondistended with positive bowel sounds. Skin: Warm and dry. Callused ulcerations at the tip of the left 1st and 2nd toes. Unable to express drainage at this time. She is tender to palpation, more so about the left 2nd toe, where there is more erythema and edema comparatively. Edema and to a lesser extent erythema extends onto the dorsum of the foot and an lower leg. Extremities: No cyanosis or clubbing. She has some edema of the left lower leg. Left upper extremity AV fistula with palpable thrill and bruit. Peripheral pulses intact. Neurological: Alert. Cranial nerves 2-12 are grossly intact. No gross focal deficits to casual conversation. Psychiatric: Pleasant and cooperative with normal mood a
--- NOTE | 2022-06-06 13:00 | PM.PNNEP ---
Progress Note: A&P Assessment and Plan (1) End stage renal disease: Code(s): N18.6 - End stage renal disease Status: Chronic Assessment and Plan: HD today and continue M/W/F schedule while hospitalized follow electrolytes, volume status, and clearance (2) Cellulitis of toe of left foot: Code(s): L03.032 - Cellulitis of left toe Status: Acute Assessment and Plan: based on exam continue empiric antibiotics follow culture data complicated by #3 (3) Osteomyelitis of toe of left foot: Code(s): M86.9 - Osteomyelitis, unspecified Status: Acute Assessment and Plan: as noted by imaging to date (X-ray and MRI) s/p left 2nd toe amputation (on 06/05/22) Orthopedic following on antibiotics (4) Hypertension: Code(s): I10 - Essential (primary) hypertension Status: Chronic Assessment and Plan: somewhat erratic at baseline continue home medications follow trend of hemodynamics (5) Anemia: Code(s): D64.9 - Anemia, unspecified Status: Chronic Assessment and Plan: due to ESRD Epogen with dialysis follow trend of H/H (6) Diabetes: Code(s): E11.9 - Type 2 diabetes mellitus without complications Status: Deleted Assessment and Plan: follow blood sugars diet controlled at this time Will continue to follow. Subjective Date/time seen: 06/06/22 13:00 Tolerating dialysis treatment at the time of my visit (seen on HD at ~ 12:50PM); unable to see patient yesterday due to being out of room for procedure/OR; tolerated left 2nd toe amputation yesterday without any issues or problems; pain control seem satisfactory; major complaint is that of frequent bowel movement that she believes is related to too much stool softeners. Exam Narrative: General: WD/WN female in NAD Heart: normal S1 and S2; no rub Lungs: clear to auscultation Abdomen: soft, nontender, nondistended, positive bowel sounds Extremities: no cyanosis or clubbing; no edema Skin: mild erythema noted on left 2nd toe Objective Data Vital Signs Vital Signs: Vital Signs Temp Pulse Resp BP Pulse Ox O2 Del Method 06/06/22 13:00 69 184/82 H 06/06/22 12:40 64 161/92 H 06/06/22 14:07 76 03/24/23 12:20 64 185/92 H 06/06/22 12:00 62 189/84 H 06/06/22 11:40 60 168/65 H 06/06/22 11:20 63 168/78 H 06/06/22 11:00 60 156/82 H 06/06/22 10:40 60 158/67 H 06/06/22 10:20 60 143/75 H 06/06/22 10:00 61 147/71 H 06/06/22 09:53 58 L 181/77 H 06/06/22 09:40 97.7 F 60 20 199/69 H 06/06/22 09:00 Room Air 06/06/22 09:43 97.3 F L 59 L 16 170/70 H 97 06/06/22 06:00 97.6 F 67 16 184/58 H 98 06/05/22 21:43 96.8 F L 60 18 162/56 H 98 06/05/22 20:00 62 18 100 Room Air 06/05/22 20:12 62 06/05/22 18:27 98.2 F 64 18 177/51 H 100 06/05/22 16:50 97.3 F L 61 16 167/52 H 98 06/05/22 16:20 97.4 F L 67 16 163/62 H 98 Intake/Output Intake/Output: Intake & Output 06/03/22 06/04/22 06/05/22 06/06/22 23:59 23:59 23:59 23:59 Intake Total 1620 3304 058 2936 Output Total 200 2700 400 1762 Balance 1420 -870 530 -372 Meds/Results Medications: Active Medications Generic Name Dose Route Start Last Admin Trade Name Freq PRN Reason Stop Dose Admin Acetaminophen 650 mg 06/05/22 15:58 Acetaminophen 325 Mg Tablet PO Q6H PRN Pain Rated 1-3 Hydrocodone Bitart/Acetaminophen 1 tab 06/01/22 13:15 06/06/22 12:17 Hydrocodone/Acetaminophen (*Crx) 5-325 Mg Tablet PO 1 tab Q6H PRN Administration Pain Rated 4-6 Albuterol 2 puff 06/01/22 19:59 Albuterol Sulfate (*Sp) Aerosol 1 Puff INHALATION QID PRN shortness of breath or wheezing Allopurinol 300 mg 06/02/22 09:00 06/06/22 14:06 Allopurinol 300 Mg Tablet PO 300 mg DAILY [facility] Administratio
[2022-06-06] MEDS: SEVELAMER CARBONATE 800 MG TABLET PO ×2 (14:05→17:44)
[2022-06-06] MEDS: lisinopriL 20 MG TABLET 40 MG PO (14:05)
[2022-06-06] MEDS: oxyBUTYnin CHLORIDE XL 5 MG TAB.ER.24 15 MG PO (14:05)
[2022-06-06] MEDS: rOPINIRole HCL 0.5 MG TABLET PO ×2 (14:05→17:44)
[2022-06-06] MEDS: amLODIPine BESYLATE 5 MG TABLET PO (14:06)
[2022-06-06] MEDS: SERTRALINE HCL 50 MG TABLET 100 MG PO (14:06)
[2022-06-06] MEDS: allopurinoL 300 MG TABLET PO (14:06)
[2022-06-06] MEDS: busPIRone HCL 10 MG TABLET PO ×2 (14:06→17:44)
[2022-06-06] MEDS: PANTOPRAZOLE 40 MG TABLET PO (14:06)
[2022-06-06] MEDS: ATORVASTATIN 40 MG TABLET PO (14:07)
[2022-06-06] MEDS: METOPROLOL TARTRATE 50 MG TAB PO (14:07)
[2022-06-06] MEDS: ASPIRIN 325 MG TABLET PO (14:07)
[2022-06-06] MEDS: HEPARIN SODIUM 5,000 UNITS/ML VIAL 5000 UNITS SUB-Q (14:09)
--- NOTE | 2022-06-06 14:27 | WPDANESPN ---
Anes - Prog Note Post-Op Date/Time: 06/06/22 14:27 Cardiovascular status: normal Respiratory status: normal Airway patency: baseline Mental status: baseline Post-Op hydration status: normal Vital Signs: Last Vital Signs Temp 36.3 C L 06/06/22 09:43 Pulse 76 06/06/22 14:07 Resp 16 06/06/22 09:43 BP 185/92 H 06/06/22 12:20 Pulse Ox 97 06/06/22 09:43 O2 Del Method Room Air 06/06/22 09:00 O2 Flow Rate 8 06/05/22 15:15 Pain Score (VAS): 0 I/O: Intake & Output 06/05/22 06/06/22 06/06/22 23:59 07:59 15:59 Intake Total 730 50 120 Balance 730 50 120 Laboratory Tests 06/06/22 05:54 06/06/22 05:54 06/05/22 06/06/22 06/06/22 15:38 05:11 05:54 WBC 6.7 RBC 3.62 L Hgb 10.1 L Hct 33.2 L MCV 91.7 MCH 27.9 MCHC 30.4 L RDW 14.1 Plt Count 210 MPV 9.5 Sodium Potassium Chloride Carbon Dioxide Anion Gap BUN Creatinine Estim Creat Clear Calc Estimated GFR Glucose POC Capillary Glucose 112 H Calcium Phosphorus Magnesium Albumin Random Vancomycin 7.2 L 06/06/22 05:54 WBC RBC Hgb Hct MCV MCH MCHC RDW Plt Count MPV Sodium 139 Potassium 4.2 Chloride 104 Carbon Dioxide 25 Anion Gap 10 BUN 42 H Creatinine 5.30 H Estim Creat Clear Calc 8 Estimated GFR 8 L Glucose 93 POC Capillary Glucose Calcium 8.7 Phosphorus 3.6 Magnesium 1.9 Albumin 3.4 L Random Vancomycin Post-procedural complaints: none Patient Feedback: Patient satisfied with anesthetic care.
[2022-06-06] MEDS: LOPERAMIDE HCL 2 MG CAPSULE PO (16:00)
== END 2022-06-06 18:15 | disposition home health service (06) | DRG 617 ==
LOC: ANHED 09:45 → ANH3MEDSUR 10:41
PROVIDERS: Internal Medicine Nephrology; Orthopaedic Surgery; Physician Assistant; Admitting Provider Family Medicine; Emergency Provider Emergency Medicine; PCP Family Medicine Adolescent Medicine; Visit Provider Chiropractor
PROC: 0Y6S0Z1 Detachment at Left 2nd Toe, High, Open Approach (ICD-10-PCS; principal; 2022-06-05 14:30)
DX: E11.69 Type 2 diabetes mellitus with other specified complication (principal); I12.0 Hypertensive chronic kidney disease with stage 5 chronic kidney disease or end stage renal disease; M86.172 Other acute osteomyelitis, left ankle and foot; K50.90 Crohn's disease, unspecified, without complications; E11.621 Type 2 diabetes mellitus with foot ulcer; L97.524 Non-pressure chronic ulcer of other part of left foot with necrosis of bone; L03.032 Cellulitis of left toe; E11.22 Type 2 diabetes mellitus with diabetic chronic kidney disease; N18.6 End stage renal disease; E03.9 Hypothyroidism, unspecified; I25.10 Atherosclerotic heart disease of native coronary artery without angina pectoris; F41.8 Other specified anxiety disorders; K21.9 Gastro-esophageal reflux disease without esophagitis; D63.1 Anemia in chronic kidney disease; G25.81 Restless legs syndrome; I73.9 Peripheral vascular disease, unspecified; N25.0 Renal osteodystrophy; Z95.5 Presence of coronary angioplasty implant and graft; Z99.2 Dependence on renal dialysis; Z85.53 Personal history of malignant neoplasm of renal pelvis; Z90.49 Acquired absence of other specified parts of digestive tract; Z90.710 Acquired absence of both cervix and uterus; Z87.891 Personal history of nicotine dependence; Z79.82 Long term (current) use of aspirin; Z86.16 Personal history of COVID-19
CPT/HCPCS: 36415; 73630; 73720; 80048; 80053; 80069; 80074; 80202; 82948; 83036; 83605; 83735; 84443; 85025; 85027; 86140; 86706; 87040; 87081; 87340; 88305; 88311; 96361; 96365; 96366; 96367; 96375; 97161; 97165; 99285; A9270; A9577; G0257; G0378; J0690; J1644; J1956; J2270; J2405; J2704; J3010; J3370; J7030; Q5105

== ENCOUNTER 2022-07-20 15:12 | Inpatient (IN) | payer MEDICARE, SELFPAY ==
[2022-07-20] VITALS (59 sets, daily range): BP systolic 128–233; BP diastolic 46–108; PULSE 63–138; RESP 17–33; TEMP 37.1–39.7; O2SAT 94–100; BMI 22.4
--- NOTE | ~2022-07-20 | XR_ITS ---
Portable chest x-ray Comparison: 07/24/2022 Clinical History: Respiratory failure Findings: Endotracheal tube and NG tube are in satisfactory positions. Minimal right pleural effusio n present. There is bibasilar pulmonary edema/atelectasis. Cardiomediastinal silhouette is stable. B ones and soft tissues are unremarkable. Impression: Bibasilar pulmonary edema/atelectasis with minimal right pleural effusion. Support tubes, as above. Reviewed, dictated and finalized at location M. Impression: Bibasilar pulmonary edema/atelectasis with minimal right pleural effusion. Support tubes, as above.
--- NOTE | ~2022-07-20 | XR_ITS ---
EXAMINATION: XR chest 1V portable DATE: 07/20/2022 15:41 INDICATION: Intubation. TECHNIQUE: A single frontal view of the chest was obtained. COMPARISON: Chest single view 03/25/2022, chest CT 02/02/2020 FINDINGS: There is a chronic nodule in right lower lung zone, likely benign. There is a diffuse inter stitial pattern in the lungs, consistent with mild pulmonary edema. No pleural effusion or pneumothor ax. Cardiomegaly is noted. The endotracheal tube tip is 3.2 cm above the forrest. IMPRESSION: 1. Mild pulmonary edema. 2. Cardiomegaly. Reviewed, dictated and finalized at location A.
--- NOTE | ~2022-07-20 | XR_ITS ---
Portable chest x-ray Comparison: 07/23/2022 Clinical History: Respiratory failure Findings: Endotracheal tube and NG tube are in satisfactory positions. Questionable minimal patchy h aziness in the lungs. No pleural effusion or pneumothorax. Cardiomediastinal silhouette is stable. B ones and soft tissues are unremarkable. Impression: Questionable minimal pulmonary edema. Support tubes, as above. Reviewed, dictated and finalized at location . Impression: Questionable minimal pulmonary edema. Support tubes, as above.
--- NOTE | ~2022-07-20 | XR_ITS ---
EXAMINATION: XR abdomen NG/feed tube insert DATE: 07/20/2022 19:13 INDICATION: Orogastric tube insertion. TECHNIQUE: A semiupright view of the abdomen was obtained. COMPARISON: Abdomen radiographs 02/07/2020 FINDINGS: The lower abdomen and right lateral aspect of the abdomen are excluded. Surgical clips in t he right upper quadrant are likely from cholecystectomy. The orogastric tube tip is in the stomach. IMPRESSION: 1. Orogastric tube tip in the stomach. Reviewed, dictated and finalized at location A.
--- NOTE | ~2022-07-20 | CT_ITS ---
EXAMINATION: CT brain wo con DATE: 07/20/2022 15:30 INDICATION: Seizure. TECHNIQUE: Computed tomography (CT) of the head was performed without intravenous contrast. The mA wa s adjusted according to patient size. Iterative reconstruction technique was employed. The dose-lengt h product was 605.33 mGy-cm. COMPARISON: Head CT 03/13/2022 FINDINGS: There are scattered areas of low attenuation in the cerebral white matter. There is no intr acranial hemorrhage, acute infarction, or abnormal intracranial mass lesion. The ventricles are dannie l in size. The orbits are normal. There is mucosal thickening in the paranasal sinuses. The mastoid a ir cells are normal. IMPRESSION: 1. New/worsened extensive nonspecific cerebral white matter disease suspicious for posterior reversib le encephalopathy syndrome (PRES). Consider brain MRI without and with contrast. Reviewed, dictated and finalized at location A. IMPRESSION: 1. New/worsened extensive nonspecific cerebral white matter disease suspicious for posterior reversible encephalopathy syndrome (PRES). Consider brain MRI wit hout and with contrast.
--- NOTE | ~2022-07-20 | XR_ITS ---
EXAMINATION: XR chest 1V portable DATE: 07/21/2022 05:57 INDICATION: Intubated. TECHNIQUE: A single frontal view of the chest was obtained. COMPARISON: Chest single view 07/20/2022 FINDINGS: There are airspace opacities in the lower lung zones. No pleural effusion or pneumothorax. Cardiomegaly is noted. The endotracheal tube tip is 3.9 cm above the forrest. The nasogastric tube tip is in the stomach. IMPRESSION: 1. Worsened airspace opacities in the lower lung zones, consistent with atelectasis versus pneumonia. 2. Cardiomegaly. Reviewed, dictated and finalized at location A. IMPRESSION: 1. Worsened airspace opacities in the lower lung zones, consistent with atelect asis versus pneumonia. 2. Cardiomegaly.
--- NOTE | ~2022-07-20 | CT_ITS ---
EXAMINATION: CT abdomen pelvis wo con DATE: 07/21/2022 00:42 INDICATION: Crohn disease. Leukocytosis. TECHNIQUE: Computed tomography (CT) of the abdomen and pelvis was performed without intravenous contr ast. Automated exposure control and iterative reconstruction technique were employed. The dose-length product was 1028.99 mGy-cm. COMPARISON: CT abdomen and pelvis 02/02/2020 FINDINGS: The visualized portions of the lung bases demonstrate mild atelectasis. There is a stable 1 .8 cm nodule in right lower lobe, likely benign. There is a trace right pleural effusion. Cardiomegal y is noted. There are coronary artery calcifications. There is a small pericardial effusion. The naso gastric tube tip is in the stomach. The liver is normal. There are changes of cholecystectomy. The sp tanika is normal. The pancreatic duct is mildly enlarged without change, likely chronic pancreatitis. T he adrenal glands are normal. There is cortical thinning of the kidneys. There is a 9 mm cyst in left kidney. There is no urolithiasis. There are no dilated loops of bowel. The terminal ileum is normal. The appendix is not visualized. There are no pathologically enlarged lymph nodes. There is calcified atherosclerosis of the aorta and many of the other arteries. There is no free intraperitoneal fluid. There is severe lumbar spine spondylosis. There is mild chronic anterior wedging of multiple thoraci c vertebral bodies. IMPRESSION: 1. Small pericardial effusion with improvement from 02/02/2020. Reviewed, dictated and finalized at location A.
--- NOTE | ~2022-07-20 | XR_ITS ---
Portable chest x-ray Comparison: 07/22/2022 Clinical History: Respiratory failure Findings: Endotracheal tube and NG tube are in satisfactory positions. There are small bilateral ple ural effusions with bibasilar pulmonary edema/atelectasis. Cardiomediastinal silhouette is stable. B ones and soft tissues are unremarkable. Impression: Small bilateral pleural effusions with bibasilar mild pulmonary edema/atelectasis. Support tubes, as above. Reviewed, dictated and finalized at location M. Impression: Small bilateral pleural effusions with bibasilar mild pulmonary edema/atelectas is. Support tubes, as above.
--- NOTE | ~2022-07-20 | XR_ITS ---
EXAMINATION: XR Abdomen PICC DATE: 07/21/2022 12:40 INDICATION: Central line placement. TECHNIQUE: A supine view of the abdomen was obtained. COMPARISON: CT abdomen and pelvis 07/21/2022 FINDINGS: There are no dilated loops of bowel. The nasogastric tube tip is in the stomach. There is a stent in left renal artery. Surgical clips in the right upper quadrant are likely from cholecystecto my. There is a left lower extremity peripherally inserted central venous catheter (PICC) with tip in the inferior vena cava. A catheter overlies the pelvis. IMPRESSION: 1. PICC tip in the inferior vena cava. Reviewed, dictated and finalized at location A.
--- NOTE | ~2022-07-20 | XR_ITS ---
Portable chest x-ray Comparison: 07/21/2022 Clinical History: Respiratory failure Findings: Endotracheal tube and NG tube are in satisfactory positions. Probable minimal pulmonary ed julio cesar pattern. No pleural effusion or pneumothorax Cardiomediastinal silhouette is stable. Bones and s oft tissues are unremarkable. Impression: Probable minimal pulmonary edema pattern. Support tubes, as above. Reviewed, dictated and finalized at location . Impression: Probable minimal pulmonary edema pattern. Support tubes, as above.
[2022-07-20] MEDS: LORazepam INJ (*CRX) 2 MG/ML VIAL IV PUSH (15:14)
--- NOTE | 2022-07-20 15:17 | PC.NURSE ---
etomidate 20mg ivp succ 100 mg ivp 1518 7.5 et tube placed 24 at lip, positive color change on end tital co2 detector, lung sounds noted throughout lung randolph [address] scan with edp, rn and resp at bedside [address]
--- NOTE | 2022-07-20 15:20 | ECG_ITS ---
Measurements Intervals [place] Rate: 113 P: [place]: 0 QRS: -35 QRSD: 97 T: 57 QT: 353 QTc: 486 Interpretive Statements SINUS TACHYCARDIA DELAYED PRECORDIAL R/S TRANSITION CONSIDER INFERIOR INFARCT, AGE INDETERMINATE BASELINE ARTIFACT- II, III, AVL, AVF, V1 ABNORMAL ECG COMPARED TO ECG 03/25/2022 10:39:33 SINUS TACHYCARDIA NOW PRESENT Electronically Signed On 07-20-2022 21:22:17 CDT by Brennen Keenan D.O.
[2022-07-20 15:25] LABS: Glucose Point of Care 221 mg/dl (65-105)
--- NOTE | 2022-07-20 15:28 | ED.NEUROSD ---
HPI - Neuro Symptoms/Deficit General Chief Complaint: Suspected CVA Stated Complaint: code stroke Time Seen by Provider: 07/20/22 15:19 History of Present Illness HPI Narrative: Patient is a 77-year-old female who presents to the ER as a code stroke. Patient found unresponsive on the ground in the bathroom after lying being gone for approximately 5 minutes. Outbound call occurred 1444 so it is estimated that patient's last known well was 1440. Patient had a 1 minute seizure for EMS and the Accu-Chek was in the 300s. Upon arriving in room patient with sonorous respirations and not responsive to noxious stimuli. He does appear like she may have some the decerebrate posturing with sternal rub however then patient went into a second seizure lasting 2 minutes and fell patient received Ativan 2 mg and then received RSI medication. After speaking with the patient's son and it turns out nobody has seen or spoken to the patient since 2 days ago after her dialysis. Family started calling her today at 10 AM and was receiving no answer so went over to check on her. That is when the son found her on the ground with sonorous respirations in the bathroom. Related Data Home Medications Medication Instructions Recorded Confirmed acetaminophen 650 mg tablet 650 mg PO Q6H PRN pain or fever 12/02/21 07/01/22 psyllium husk 0.52 gram capsule 0.52 g PO DAILY 12/02/21 07/01/22 (Fiber (psyllium husk)) aspirin 325 mg tablet 325 mg PO DAILY 12/26/21 07/01/22 metoprolol tartrate 50 mg tablet 50 mg PO BID 12/26/21 07/01/22 sevelamer carbonate 800 mg tablet 800 mg PO TID 12/26/21 07/01/22 lisinopril 20 mg tablet 40 mg PO DAILY 05/06/22 07/01/22 loperamide 2 mg tablet 2 mg PO BID PRN Diarrhea 05/06/22 07/01/22 ergocalciferol (vitamin D2) 1,250 50,000 mcg PO WEEKLY 06/01/22 07/01/22 mcg (50,000 unit) capsule Allergies Allergy/AdvReac Type Severity Reaction Status Date / Time cortisone Allergy Intermediate Dyspnea / Verified 07/01/22 13:49 SOB Penicillins Allergy Intermediate Dyspnea / Verified 07/01/22 13:49 SOB ceftriaxone [From Rocephin] Allergy Difficulty Verified 07/01/22 13:49 Breathing Review of Systems Review of Systems: ROS unobtainable: Yes unobtainable due to medical condition [facility] Past Medical History Medical History Amputation toe Anemia of chronic disease Coronary artery disease History of stent x3. Crohn's disease Depression with anxiety Diet-controlled diabetes mellitus A1c was 7.0 in 10/2018 and 4.8 in 01/2020. End-stage renal disease on hemodialysis Erythropoietin deficiency anemia Gastroesophageal reflux disease History of complete ray amputation of second toe of left foot History of complete ray amputation of second toe of right foot History of kidney stones Hypothyroidism Normal colonoscopy (08/2019) Obstructive sleep apnea No longer using CPAP after 40 lb weight loss. Pericardial effusion (01/2020) Small pericardial effusion on echocardiogram, felt to be related to uremia. Peripheral vascular disease Peritonitis (01/2020) Renal cell carcinoma (2004) Renal osteodystrophy Restless leg syndrome Tushar (1991) Surgical History Surgical History History of appendectomy History of bilateral carpal tunnel release History of cardiac catheterization With stent x3. History of cholecystectomy History of colonoscopy History of cystoscopy With ureteral stents for kidney stones. History of foot surgery Repair of left foot fracture with pinning. History of hysterectomy (1976) With cystocele and rectocele repairs. History of partial nephrectomy (2004) Left partial nephrectomy for kidney cancer. History of tonsillectomy Family History Family History Father Renal cell carcinoma Acute myocardial infarction Cerebrovascular accident
--- NOTE | 2022-07-20 15:45 | PC.NURSE ---
pt noted to have decorticate posturing.
[2022-07-20 15:48] LABS: Basophils Absolute Auto 0.1 K/mm3 (0.0-0.1); Basophils Percent Auto 0.3 % (0.2-1.2); Hematocrit 43.2 % (37.0-47.0); Hemoglobin 13.4 g/dL (12.0-15.0); Immature Granulocyte Absolute 0.24 K/mm3 (0.00-0.031); Immature Granulocyte Percent A 1.1 % (0-0.5); Lymphocytes Absolute Auto 1.16 K/mm3 (0.9-3.2); Lymphocytes Percent Auto 5.2 % (18.3-44.2); Mean Corpuscular Hemoglobin 29.1 pg (26-34); Mean Corpuscular Volume 93.7 fl (80-100); Mean Platelet Volume 9.1 fl (7.4-10.4); Monocytes Absolute Auto 0.7 K/mm3 (0.1-0.6); Monocytes Percent Auto 3.1 % (2.6-8.5); Neutrophils Absolute Auto 20.1 K/mm3 (1.3-6.7); Neutrophils Percent Auto 90.3 % (45.5-73.1); Platelet Count Result 234 k/mm3 (150-375); Red Blood Count 4.61 M/mm3 (4.2-5.4); Red Cell Distribution Width 13.9 % (11.5-14.5); White Blood Count 22.3 K/mm3 (4.5-10.0)
[2022-07-20] MEDS: FENTANYL 2,500MCG/NS250ML(*CRX 2,500 MCG/250 ML BAG 7.5 MCG IV CONT (15:49)
[2022-07-20 15:52] LABS: Base Excess ABG -6.6 mEq/l (+/-2.0); Carboxyhemoglobin 1.2 % THb (0-2.0); Fractional Inspired Oxygen 100 %; HCO3 ABG 16.8 mEq/l (22.0-26.0); Methemoglobin ABG 0.2 %THb (0-1.5); Oxygen Content ABG 19.8 %vol (16.0-22.0); Oxygen Saturation ABG 99.8 % (95.0-100.0); PCO2 ABG 28.1 mmHg (35.0-45.0); PO2 ABG 372.9 mmHg (80.0-100.0); PO2 FiO2 Ratio Arterial Blood 3.73 %; Reduced Hemoglobin 0.6 %THb (0-5.0); Total Hemoglobin 13.7 g/dL (12.0-18.0); pH ABG 7.395 (7.350-7.450)
[2022-07-20] MEDS: MIDAZOLAM 100MG/NS 100ML(*CRX) 100 MG/100 ML BAG IV CONT (15:52)
[2022-07-20 15:53] LABS: Arterial Blood Gas Ventilator rate 18 /MIN; Device VENTILATOR; Modified Allen's Test Unable to perform; Site Drawn RIGHT RADIAL
[2022-07-20 15:54] LABS: Arterial Blood Gas PEEP 5 cmH2O; Arterial Blood Gas Tidal Volume 400 ml; Arterial Blood Gas Vent Mode CMV
[2022-07-20 15:58] LABS: Partial Thromboplastin Time 24.2 SECONDS (22.3-36.8); Prothrombin Time 13.5 Seconds (11.1-14.7)
[2022-07-20 16:06] LABS: Ethanol < 10 mg/dL (<10)
[2022-07-20 16:14] LABS: Alanine Aminotransferase 53 U/L (6-35); Albumin Level 4.7 g/dL (3.5-5.1); Alkaline Phosphatase 113 U/L (38-126); Anion Gap 23 mmol/L (8-16); Aspartate Amino Transferase 53 U/L (14-36); Bilirubin,Total 0.7 mg/dL (0.2-1.3); Blood Urea Nitrogen 31 mg/dL (7-17); Calcium 9.5 mg/dL (8.4-10.2); Carbon Dioxide 17 mmol/L (22-30); Chloride 102 mmol/L (98-107); Estimated CRCL calculation 8 ml/min; Estimated Glomerular Filt Rate 7; Glucose 256 mg/dL (65-110); Potassium 4.7 mmol/L (3.4-5.0); Sodium 142 mmol/L (137-145)
[2022-07-20] MEDS: levETIRAcetam 1000MG/NACL100ML 1,000 MG/100 ML BAG 400 MG IVPB (16:15)
[2022-07-20 16:21] LABS: Troponin I 0.057 ng/mL (0.000-0.034)
[2022-07-20] MEDS: LABETALOL HCL INJ 100 MG/20 ML VIAL 20 MG IV PUSH (16:35)
[2022-07-20] MEDS: LABETALOL HCL INJ 200 MG in DEXTROSE 5% IN WATER 160 ML 120 MG IV CONT ×2 (17:50→19:47)
--- NOTE | 2022-07-20 18:33 | ADMGEN ---
This patient, Layla Maher, was admitted to Intensive Care Unit-7 at 1833. Patient/family oriented to hospital policies and general routines including ID bracelet, bed and alarms, visiting hours, pain management, procedures, bathroom and other care routines, personal items, smoking policy, room service/diet, and visiting hours. Information on how to activate the Rapid Response Team has been discussed. Patient/Family are encouraged to report perceived risks to care and to ask questions if they do not understand what they are told or what they should do.
--- NOTE | 2022-07-20 18:39 | PM.IMHP ---
H&P: HPI History of Present Illness Date/Time: 07/20/22 18:00 Chief Complaint: Unresponsive. Narrative: This is a 77-year-old female with multiple medical problems including end-stage renal disease on hemodialysis, hypertension, hyperlipidemia, anemia of chronic kidney disease, renal osteodystrophy, renal cell carcinoma, sleep apnea, Crohn's disease, peripheral vascular disease, hypothyroidism, diet-controlled diabetes, and other comorbidities who presented to the emergency department via EMS from home for evaluation after she was found unresponsive by her son. She is currently sedated and on mechanical ventilation and all of the following history is obtained via a review of her electronic medical records as well as information obtained from her son and [id number]-[id number]. The patient is known to myself and the hospitalist service from numerous visits over the years, most recently she was admitted in May with an infected diabetic foot ulcer, cellulitis, and osteomyelitis of the left 2nd toe which was ultimately amputated. She has reportedly been doing well since that time however told her son the last couple of days that she was worried that the operative site may be getting infected due to the development of an open scab. Other than that he has not heard any complaints from her. She was last seen normal Thursday afternoon at her dialysis session and reportedly a home health nurse was there on Thursday evening. It does not sound as though anyone spoke to her on Thursday. Fimyeigu-uj-wws phoned her at 10:00 this morning and she did not answer and eventually her son went over to check on her at about 14:00. He found her unresponsive on the toilet with sonorous respirations. She has safety rails on her toilet and was leaning to her right side on the railings with her head just under the sink. It is unclear how long she was in that position but son noted that she made a phone call at about 22:30 last night. EMS was summoned and on their arrival she reportedly had a 1 minute tonic clonic seizure. Vital signs were reportedly stable in her Accu-Chek was in the 300s. Upon arrival to the emergency department she had another witnessed seizure and was given Ativan 2 mg. She was intubated shortly thereafter. ABG showed a pH of 7.395, pCO2 28.1, PO2 372.9, bicarb 16.8. Labs were significant for a WBC count of 22.3, sodium 142, potassium 4.7, chloride 102, carbon dioxide 17, BUN 31, creatinine 6.00, glucose 256, lactic acid 3.6, AST 53, ALT 53, total CK 764, troponin 0.057. Brain CT showed new/worsened extensive nonspecific cerebral white matter disease suspicious for posterior reversible encephalopathy syndrome. Chest x-ray showed mild pulmonary edema and cardiomegaly. EKG showed sinus tachycardia without acute ST segment depressions or elevations. In the ED she spiked a temperature of 103.5? F and her blood pressure were consistently elevated in the 200 systolic, as high as 230/107. She was started on a labetalol drip and she has been admitted to the ICU for close monitoring and further workup. Review of Systems Review of Systems: Unable to obtain given clinical condition. [facility] Past Medical History Medical History Anemia of chronic disease Coronary artery disease History of stent x3. Crohn's disease Depression with anxiety Diet-controlled diabetes mellitus A1c was 7.0 in 10/2018 and 4.8 in 01/2020. End-stage renal disease on hemodialysis Erythropoietin deficiency anemia Gastroesophageal reflux disease History of kidney stones Hypothyroidism Normal colonoscopy (08/2019) Obstructive sleep apnea No longer using CPAP after 40 lb weight loss. Pericardial effusion (01/2020) Small pericardial effusion on echocardiogram, felt to be related to uremia. Peripheral vascular disease Peritonitis (01/2020) Pneumonia Renal cell carcinoma (2004) Renal osteodystrophy Restless leg syndrome Tushar (1991) Surgical
[2022-07-20 19:22] LABS: Creatine Kinase 764 U/L (30-135); Lactic Acid Reflex 3.6 mmol/L (0.7-2.0)
[2022-07-20 22:00] LABS: Reflex Lactic Acid Yes or No Add Lactic
[2022-07-20 22:37] LABS: Lactic Acid 3.1 mmol/L (0.7-2.0)
[2022-07-21] VITALS (55 sets, daily range): BP systolic 126–221; BP diastolic 52–101; PULSE 63–116; RESP 12–211; TEMP 36–38.8; O2SAT 95–100; BMI 23.8
[2022-07-21] LABS: Base Excess ABG 2.3 mEq/l (+/-2.0); Fractional Inspired Oxygen 35 %; HCO3 ABG 25.4 mEq/l (22.0-26.0); Oxygen Content ABG 16.9 %vol (16.0-22.0); Oxygen Saturation ABG 96.9 % (95.0-100.0); Oxyhemoglobin 95.7 % THb (90.0-100.0); PCO2 ABG 34.7 mmHg (35.0-45.0); PO2 ABG 83.2 mmHg (80.0-100.0); PO2 FiO2 Ratio Arterial Blood 2.38 %; Total Hemoglobin 12.5 g/dL (12.0-18.0); pH ABG 7.483 (7.350-7.450)
[2022-07-21 00:01] LABS: Arterial Blood Gas PEEP 5 cmH2O; Arterial Blood Gas Tidal Volume 400 ml; Arterial Blood Gas Vent Mode CMV; Arterial Blood Gas Ventilator rate 18 /MIN; Device VENTILATOR; Modified Allen's Test Pass; Site Drawn RIGHT RADIAL
[2022-07-21 00:17] LABS: Hematocrit 36.1 % (37.0-47.0); Hemoglobin 11.4 g/dL (12.0-15.0); Mean Corpuscular HGB Conc 31.6 g/dl (32-36); Mean Corpuscular Hemoglobin 28.9 pg (26-34); Mean Corpuscular Volume 91.6 fl (80-100); Mean Platelet Volume 9.5 fl (7.4-10.4); Platelet Count Result 177 k/mm3 (150-375); Red Blood Count 3.94 M/mm3 (4.2-5.4); Red Cell Distribution Width 13.8 % (11.5-14.5); White Blood Count 15.6 K/mm3 (4.5-10.0)
[2022-07-21 00:58] LABS: Glucose Point of Care 155 mg/dl (65-105)
[2022-07-21 00:58] LABS: Alanine Aminotransferase 30 U/L (6-35); Albumin Level 3.5 g/dL (3.5-5.1); Alkaline Phosphatase 95 U/L (38-126); Anion Gap 12 mmol/L (8-16); Aspartate Amino Transferase 51 U/L (14-36); Bilirubin,Total 0.7 mg/dL (0.2-1.3); Blood Urea Nitrogen 35 mg/dL (7-17); CRP 3.1 mg/dL (<1.0); Calcium 8.1 mg/dL (8.4-10.2); Carbon Dioxide 25 mmol/L (22-30); Chloride 102 mmol/L (98-107); Creatine Kinase 964 U/L (30-135); Estimated CRCL calculation 8 ml/min; Estimated Glomerular Filt Rate 7; Glucose 134 mg/dL (65-110); Magnesium 1.7 mg/dL (1.6-2.3); Potassium 3.9 mmol/L (3.4-5.0); Sodium 139 mmol/L (137-145); Troponin I 0.492 ng/mL (0.000-0.034)
[2022-07-21 01:09] LABS: Procalcitonin 2.4 ng/mL
[2022-07-21 02:30] LABS: Appearance Urine Clear (Clear); Bacteria Urine None Seen /hpf; Bilirubin Urine Negative (Negative); Blood Urine 2+ (Negative); Color Urine Yellow (Yellow); Glucose Urine UA 2+ mg/dL (Negative); Ketones Urine Trace mg/dL (Negative); Leukocyte Esterase Ur Negative LEU/UL (NEGATIVE); Nitrate Urine Negative (Negative); Protein Urine 4+ mg/dL (Negative); Specific Grav Ur 1.028 (1.001-1.035); Squamous Epithelial Cell Urine None seen /hpf (Few); Urobilinogen Urine 0.2 mg/dL (<2.0); WBC Urine 0-5 /hpf (0-3); pH Urine 7.5 (5.0-9.0)
[2022-07-21 03:18] LABS: Add Urine Microscopic? YES
--- NOTE | 2022-07-21 03:55 | PC.NURSE ---
Temp salas catheter placed at 0220 using sterile techniqe. 50ml urine return. Patient tolerated procedure well. Urine specimen collected
[2022-07-21 04:26] LABS: Creatine Kinase 927 U/L (30-135); Lactic Acid Reflex 2.9 mmol/L (0.7-2.0); Phosphorus 3.7 mg/dL (2.5-4.5)
[2022-07-21] MEDS: MEROPENEM 500 MG in SODIUM CHLORIDE 0.9% IV 100 ML 200 ML IVPB (05:00)
[2022-07-21] MEDS: ACETAMINOPHEN 650 MG SUPPOSITORY RECTAL (06:53)
[2022-07-21] MEDS: LEVOTHYROXINE SODIUM 75 MCG TABLET PO (07:07)
[2022-07-21 07:20] LABS: Influenza A QL RT-PCR Negative (Negative); Influenza B QL RT-PCR Negative (Negative); SARS-CoV-2 RNA PCR Negative (Negative)
[2022-07-21 07:41] LABS: Glucose Point of Care 206 mg/dl (65-105)
[2022-07-21] MEDS: FENTANYL 2,500MCG/NS250ML(*CRX 2,500 MCG/250 ML BAG 10 MCG IV CONT (08:00)
--- NOTE | 2022-07-21 08:43 | WPDCNINT ---
Assessment and Plan Assessment and plan (1) Acute respiratory failure: Code(s): J96.00 - Acute respiratory failure, unspecified whether with hypoxia or hypercapnia Status: Acute Assessment and Plan: Acute respiratory failure likely related to altered mental status, seizures, intubated for airway protection on 07/20/2022 -currently on CMV mode of ventilation, peep of 5 in 35% FiO2, maintain O2 sats > 92% -chest x-ray this morning shows worsening airspace opacities in lower lung zones consistent with atelectasis versus pneumonia, cardiomegaly -ABGs reviewed, ventilator adjusted -continue bronchodilators -sedated with fentanyl and Versed infusion, I have asked the bedside RN to switch to propofol infusion, maintain RASS of 0 to -1. (2) Pneumonia: Qualifiers: Laterality: bilateral Lung location: lower lobe of lung Pneumonia type: due to unspecified organism Qualified Code(s): J18.9 - Pneumonia, unspecified organism Code(s): J18.9 - Pneumonia, unspecified organism Status: Resolved Assessment and Plan: Leukocytosis, fevers, infiltrates on the chest x-ray, likely related to pneumonia -patient started on add azithromycin, aztreonam and vancomycin (07/21), (allergic to penicillins and ceftriaxone) -check blood, sputum cultures, and MRSA screen (3) End-stage renal disease on hemodialysis: Code(s): N18.6 - End stage renal disease; Z99.2 - Dependence on renal dialysis Status: Acute Assessment and Plan: Patient has a history of end-stage renal disease on hemodialysis -nephrology has been following -dialysis per Nephrology (4) Malignant hypertension: Code(s): I10 - Essential (primary) hypertension Status: Acute Assessment and Plan: Patient malignant hypertension with systolic blood pressures in the ED of 230/107 and consistently remained elevated, patient was started on labetalol infusion which was discontinued upon arrival to the ICU -maintain SBP 160-180 mmHg. -CT scan of the brain revealed possibility of PRES syndrome -neurology has been consulted (5) Seizure: Code(s): R56.9 - Unspecified convulsions Status: Acute Assessment and Plan: Patient seizure activities x2 on 07/20/2022. One episode of seizure for EMS and 2nd episode in the ED. both were witnessed seizure activities. -patient started on Keppra, dosed for hemodialysis -neurology has been consulted and await their recommendations -patient will require EEG -cannot obtain MRI since she is on a ventilator (6) Type 2 diabetes mellitus with diabetic chronic kidney disease: Code(s): E11.22 - Type 2 diabetes mellitus with diabetic chronic kidney disease Status: Acute Assessment and Plan: Continue Accu-Cheks and sliding scale insulin (7) Elevated creatine kinase: Code(s): R74.8 - Abnormal levels of other serum enzymes Status: Acute Assessment and Plan: Elevated CK levels as patient was found sitting for extended amount of time in her toilet, also possible related to seizure activity. -will continue to monitor CK levels -volume expansion with albumin (8) Elevated troponin: Code(s): R77.8 - Other specified abnormalities of plasma proteins Status: Acute Assessment and Plan: Troponins 0.492 (initial troponin 0.057) -will repeat another set of troponin this morning -EKG did not show any ST-T changes (9) Hypothyroidism: Code(s): E03.9 - Hypothyroidism, unspecified Status: Acute Assessment and Plan: Continue levothyroxine Plan DVT prophylaxis: Heparin SQ Stress ulcer prophylaxis: Protonix Nutrition: Will start tube feeds Code Status: Full code Critical Care Time Spent: 55 minutes Due to a high probability of clinically significant, life threatening deterioration, the patient required my highest level of preparedness to intervene emergently and I personally spent this critical care time directly and pers
[2022-07-21 09:15] LABS: Triglycerides 182 mg/dL (<150)
[2022-07-21 09:26] LABS: Troponin I 0.443 ng/mL (0.000-0.034)
[2022-07-21] MEDS: INSULIN ASPART (*BKC) 100 UNITS/ML SUB-Q (09:40)
[2022-07-21] MEDS: ALBUMIN HUMAN 25% 25 GM/100 ML 100 ML IVPB ×2 (09:41→17:37)
[2022-07-21 11:16] LABS: Hepatitis B Surface Antigen Negative (Negative)
[2022-07-21 11:33] LABS: Hepatitis B Surface Anti Res Negative
[2022-07-21] MEDS: LIDOCAINE HCL 1% PF INJ 5 ML VIAL INFILTRATE (11:55)
--- NOTE | 2022-07-21 11:57 | WPDNEURCNPN ---
Assessment and Plan Assessment and plan (1) Posterior reversible encephalopathy syndrome (PRES): Code(s): I67.83 - Posterior reversible encephalopathy syndrome Status: Acute (2) Seizure: Code(s): R56.9 - Unspecified convulsions Status: Acute (3) Acute respiratory failure: Code(s): J96.00 - Acute respiratory failure, unspecified whether with hypoxia or hypercapnia Status: Acute (4) Malignant hypertension: Code(s): I10 - Essential (primary) hypertension Status: Acute Plan Layla Maher is a 77 year old female with a history of hypertension, hyperlipidemia, CKD on dialysis, RCC, diabetes mellitus, BEKA, Crohn's disease, peripheral vascular disease, hypothyoridism who presented after being found unresponsive by her son. She had two witnessed seizures on presentation. Blood pressure was elevated to 230s. CT head showed findings suggestive of PRES. - Blood pressure control per ICU - Agree with maintenance Keppra 500mg BID - Routine EEG - MRI brain once extubated Consult date: 07/21/22 Reason for consult: PRES HPI: Layla Maher is a 77 year old female with a history of hypertension, hyperlipidemia, CKD on dialysis, RCC, diabetes mellitus, BEKA, Crohn's disease, peripheral vascular disease, hypothyroidism who presented after being found unresponsive by her son. He found her unresponsive on the toilet, leaning on the safety railings with her head under the sink. Unknown how long patient was unresponsive. EMS was called, and on their arrival she had a 1 minute generalized tonic-clonic seizure. Her blood sugar was noted to be in the 300s. Upon arrival to ED, she had another witnessed seizure, and was given Ativan 2mg. She was intubated shortly afterwards. Labs were significant for elevated WBC 22.3 and elevated CK 764 as well as evidence of chronic renal disease. CT head showed new/worsened white matter disease, suspicious for posterior reversible encephalopathy syndrome. She did have a fever up to 103.5 and her blood pressure as high as 230s in the emergency department. She was started on a labetalol drip and admitted to the ICU. She is still being mechanically ventilated and is on versed and fentanyl. She has been taken of labetalol drip. Her blood pressure has been more stable in the 150s systolic. She is currently being treated for possible pneumonia. She has been started on Keppra 500mg BID. Review of Systems Review of Systems: ROS unobtainable: Yes unobtainable due to endotracheal tube, unobtainable due to medical condition and unobtainable due to mental status PMFSH Past Medical History Medical History Anemia of chronic disease Coronary artery disease History of stent x3. Crohn's disease Depression with anxiety Diet-controlled diabetes mellitus A1c was 7.0 in 10/2018 and 4.8 in 01/2020. End-stage renal disease on hemodialysis Erythropoietin deficiency anemia Gastroesophageal reflux disease History of kidney stones Hypothyroidism Normal colonoscopy (08/2019) Obstructive sleep apnea No longer using CPAP after 40 lb weight loss. Pericardial effusion (01/2020) Small pericardial effusion on echocardiogram, felt to be related to uremia. Peripheral vascular disease Peritonitis (01/2020) Pneumonia Renal cell carcinoma (2004) Renal osteodystrophy Restless leg syndrome Shinyobany (1991) Surgical History Surgical History Amputation toe Left 2nd toe. History of appendectomy History of bilateral carpal tunnel release History of cardiac catheterization With stent x3. History of cholecystectomy History of colonoscopy History of complete ray amputation of second toe of left foot History of complete ray amputation of second toe of right foot History of cystoscopy With ureteral stents for kidney stones. History of foot surgery Repair of left foot fracture with pinning. History o
[2022-07-21 12:44] LABS: Glucose Point of Care 142 mg/dl (65-105)
[2022-07-21] MEDS: HEPARIN SODIUM 5,000 UNITS/ML VIAL 5000 UNITS SUB-Q ×2 (12:49→20:04)
[2022-07-21] MEDS: MINERAL OIL/WHITE PETROLATUM OINTMENT 1 APPLIC EACH EYE ×2 (12:50→20:47)
[2022-07-21] MEDS: SODIUM CHLORIDE 0.9% IV 1,000 ML 999 ML IV CONT (13:20)
[2022-07-21] MEDS: LEVALBUTEROL NEB 1.25 MG/3 ML 0.63 MG INHALATION ×2 (13:41→19:33)
[2022-07-21] MEDS: IPRATROPIUM BR 0.02% INH SOLN 0.5 MG/2.5 ML VIAL INHALATION ×2 (13:41→19:33)
[2022-07-21] MEDS: PROPOFOL IV EMULSION 100 ML 2.27 MG IV CONT (14:07)
--- NOTE | 2022-07-21 14:11 | P.NEURO_ITS ---
Neurology EEG Report General Information Date of Study: 07/21/22 TEST Routine EEG DIAGNOSIS New onset seizure CONDITION OF RECORDING Sedated EEG NUMBER [id number] CLINICAL HISTORY Patient was found unresponsive by son. She had two seizures shortly afterwards described as GTC. Her CT head findings raise concern for PRES. EEG DESCRIPTION The recording is continuos. Background is significantly depressed with very low voltage activity. There are intermittent delta range waves noted throughout the recording, diffusely. There is no significant asymmetry in the background. There is no posterior dominant rhythm or anterior-posterior gradient. Normal sleep architecture was not observed. There are no epileptiform discharges or electrographic seizures. Activation procedures could not be performed due to patient's clinical status. IMPRESSION This is an abnormal routine EEG due to the presence of diffuse slowing and significantly suppressed background. These findings are suggestive of severe enc ephalopathy of unspecified etiology. No seizures were noted throughout the course of the recording. Clinical correlation is recommended.
--- NOTE | 2022-07-21 14:30 | P.CONNP_ITS ---
Assessment and Plan Assessment and plan (1) End stage renal disease: Code(s): N18.6 - End stage renal disease Status: Chronic Assessment and Plan: * HD today and continue M/W/F schedule while hospitalized * follow electrolytes, volume status, and clearance (2) Acute respiratory failure: Code(s): J96.00 - Acute respiratory failure, unspecified whether with hypoxia or hypercapnia Status: Acute Assessment and Plan: * intubated due to AMS, seizures, and airway protection * CXR (in comparison to on admission) concerning for possible pneumonia (see #3) * continue ventilator support * wean when more stable (3) Pneumonia: Qualifiers: Laterality: bilateral Lung location: lower lobe of lung Pneumonia type: due to unspecified organism Qualified Code(s): J18.9 - Pneumonia, unspecified organism Code(s): J18.9 - Pneumonia, unspecified organism Status: Resolved Assessment and Plan: * suggested by CXR findings this AM along with leukocytosis and fevers * follow culture data * empiric antibiotics (4) Seizure: Code(s): R56.9 - Unspecified convulsions Status: Acute Assessment and Plan: * seizure activity x 2 on admission/presentation (both witnessed) * Neurology recommendations noted * EEG today * further imaging once more stable (5) Hypertension: Code(s): I10 - Essential (primary) hypertension Status: Chronic Assessment and Plan: * systolic BP > 200 on admission * was on labetalol gtt but has since been weaned off * CT scan of brain concerning for PRES * resume home medications * follow trend of hemodynamics (6) Anemia: Code(s): D64.9 - Anemia, unspecified Status: Chronic Assessment and Plan: * due to ESRD * Epogen with dialysis * follow trend of H/H (7) Diabetes: Code(s): E11.9 - Type 2 diabetes mellitus without complications Status: Deleted Assessment and Plan: * follow accuchecks * glycemic control per weight recorder I will continue follow patient with you while she remains hospitalized to make further recommendations during hospital course. Thank you for allowing me to participate in the care of this patient. History of Present Illness Reason for Consult Consult date: 07/21/22 Reason for consult: end stage renal disease Chief Complaint Chief complaint: code stroke History of Present Illness Narrative: The information that I have obtained is from review of the electronic medical record as well as discussion with the physician/nurses involved in the patient's care his a.m. unable to get any history from the patient she is currently intubated and on mechanical ventilation. The patient is a 77-year-old female with a past medical history as outlined below who presented to [facility] Emergency Room after being found down. Apparently, the patient's son found the patient unresponsive on the toilet with abnormal breathing. She was leaning on her right side on the safety railing so with her head just underneath the sink. Is unclear how long the patient was in this position before the patient's son found her. She was last known to be in her normal state on Thursday evening EMS was called and apparently, on their arrival, she had a witnessed/documented 1 minute tonic clonic seizure. She was reportedly otherwise hemodynamically stable and her blood sugar was slightly elevated. She was subsequently transferred to the emergency room for further assessment. Workup and ev
--- NOTE | 2022-07-21 14:30 | PM.CNNEP ---
Assessment and Plan Assessment and plan (1) End stage renal disease: Code(s): N18.6 - End stage renal disease Status: Chronic Assessment and Plan: HD today and continue M/W/F schedule while hospitalized follow electrolytes, volume status, and clearance (2) Acute respiratory failure: Code(s): J96.00 - Acute respiratory failure, unspecified whether with hypoxia or hypercapnia Status: Acute Assessment and Plan: intubated due to AMS, seizures, and airway protection CXR (in comparison to on admission) concerning for possible pneumonia (see #3) continue ventilator support wean when more stable (3) Pneumonia: Qualifiers: Laterality: bilateral Lung location: lower lobe of lung Pneumonia type: due to unspecified organism Qualified Code(s): J18.9 - Pneumonia, unspecified organism Code(s): J18.9 - Pneumonia, unspecified organism Status: Resolved Assessment and Plan: suggested by CXR findings this AM along with leukocytosis and fevers follow culture data empiric antibiotics (4) Seizure: Code(s): R56.9 - Unspecified convulsions Status: Acute Assessment and Plan: seizure activity x 2 on admission/presentation (both witnessed) Neurology recommendations noted EEG today further imaging once more stable (5) Hypertension: Code(s): I10 - Essential (primary) hypertension Status: Chronic Assessment and Plan: systolic BP > 200 on admission was on labetalol gtt but has since been weaned off CT scan of brain concerning for PRES resume home medications follow trend of hemodynamics (6) Anemia: Code(s): D64.9 - Anemia, unspecified Status: Chronic Assessment and Plan: due to ESRD Epogen with dialysis follow trend of H/H (7) Diabetes: Code(s): E11.9 - Type 2 diabetes mellitus without complications Status: Deleted Assessment and Plan: follow accuchecks glycemic control per payroll accounting clerk I will continue follow patient with you while she remains hospitalized to make further recommendations during hospital course. Thank you for allowing me to participate in the care of this patient. History of Present Illness Reason for Consult Consult date: 07/21/22 Reason for consult: end stage renal disease Chief Complaint Chief complaint: code stroke History of Present Illness Narrative: The information that I have obtained is from review of the electronic medical record as well as discussion with the physician/nurses involved in the patient's care his a.m. unable to get any history from the patient she is currently intubated and on mechanical ventilation. The patient is a 77-year-old female with a past medical history as outlined below who presented to [facility] Emergency Room after being found down. Apparently, the patient's son found the patient unresponsive on the toilet with abnormal breathing. She was leaning on her right side on the safety railing so with her head just underneath the sink. Is unclear how long the patient was in this position before the patient's son found her. She was last known to be in her normal state on Thursday evening EMS was called and apparently, on their arrival, she had a witnessed/documented 1 minute tonic clonic seizure. She was reportedly otherwise hemodynamically stable and her blood sugar was slightly elevated. She was subsequently transferred to the emergency room for further assessment. Workup and evaluation emergency room demonstrated the patient be quite hypertensive in the 200 systolic. She apparently had another witnessed seizure in the emergency room and was given IV Ativan and was subsequently intubated for airway protection. Repeat labs demonstrated labs consistent with her known history of end-stage renal disease although her lactic acid was slightly elevated and she did have a leukocytosis 22.3. A CT scan of her b
[2022-07-21 16:52] LABS: Glucose Point of Care 170 mg/dl (65-105)
[2022-07-21] MEDS: PANTOPRAZOLE SODIUM IV 40 MG VIAL IV PUSH (16:53)
[2022-07-21] MEDS: CENTRAL LINE FLUSH 10 ML IV PUSH (16:53)
[2022-07-21] MEDS: metroNIDAZOLE 250 MG TABLET 500 MG PO ×2 (16:53→22:32)
[2022-07-21] MEDS: levETIRAcetam 500MG/NACL 100ML 500 MG/100 ML BAG 400 MG IVPB (16:57)
[2022-07-21] MEDS: LABETALOL HCL INJ 200 MG in DEXTROSE 5% IN WATER 160 ML 30 MG IV CONT (20:07)
[2022-07-21] MEDS: LABETALOL HCL INJ 200 MG in DEXTROSE 5% IN WATER 160 ML 120 MG IV CONT (22:03)
[2022-07-22] VITALS (33 sets, daily range): BP systolic 129–193; BP diastolic 40–74; PULSE 72–98; RESP 16–22; TEMP 37.6–37.9; O2SAT 95–100
[2022-07-22] MEDS: ALBUMIN HUMAN 25% 25 GM/100 ML 100 ML IVPB ×2 (00:34→05:28)
[2022-07-22 00:45] LABS: Glucose Point of Care 161 mg/dl (65-105)
[2022-07-22] MEDS: LEVALBUTEROL NEB 1.25 MG/3 ML 0.63 MG INHALATION ×4 (01:58→20:10)
[2022-07-22] MEDS: IPRATROPIUM BR 0.02% INH SOLN 0.5 MG/2.5 ML VIAL INHALATION ×4 (01:58→20:09)
[2022-07-22 05:03] LABS: Alveolar/Arterial O2 Gradient 85.9 mmHg; Base Excess ABG 4.3 mEq/l (+/-2.0); Carboxyhemoglobin 0.3 % THb (0-2.0); Device VENTILATOR; Fractional Inspired Oxygen 30 %; HCO3 ABG 28.7 mEq/l (22.0-26.0); Methemoglobin ABG 0.1 %THb (0-1.5); Modified Allen's Test Pass; Oxygen Content ABG 14.2 %vol (16.0-22.0); PCO2 ABG 42.3 mmHg (35.0-45.0); PO2 ABG 78.3 mmHg (80.0-100.0); PO2 FiO2 Ratio Arterial Blood 2.61 %; Reduced Hemoglobin 4.6 %THb (0-5.0); Site Drawn RIGHT RADIAL; Total Hemoglobin 10.6 g/dL (12.0-18.0)
[2022-07-22 05:04] LABS: Arterial Blood Gas PEEP 5 cmH2O; Arterial Blood Gas Tidal Volume 400 ml; Arterial Blood Gas Vent Mode CMV; Arterial Blood Gas Ventilator rate 16 /MIN
[2022-07-22 05:16] LABS: Glucose Point of Care 195 mg/dl (65-105)
[2022-07-22 05:19] LABS: Basophils Percent Auto 0.2 % (0.2-1.2); Eosinophils Absolute Auto 0.1 K/mm3 (0-0.3); Eosinophils Percent Auto 0.6 % (0-4.4); Hematocrit 26.5 % (37.0-47.0); Hemoglobin 9.3 g/dL (12.0-15.0); Immature Granulocyte Absolute 0.14 K/mm3 (0.00-0.031); Immature Granulocyte Percent A 1.1 % (0-0.5); Lymphocytes Percent Auto 5.4 % (18.3-44.2); Mean Corpuscular HGB Conc 35.1 g/dl (32-36); Mean Corpuscular Hemoglobin 33.1 pg (26-34); Mean Corpuscular Volume 94.3 fl (80-100); Mean Platelet Volume 10.3 fl (7.4-10.4); Monocytes Percent Auto 7.5 % (2.6-8.5); Neutrophils Percent Auto 85.2 % (45.5-73.1); Platelet Count Result 116 k/mm3 (150-375); Red Blood Count 2.81 M/mm3 (4.2-5.4); Red Cell Distribution Width 14.3 % (11.5-14.5); White Blood Count 12.9 K/mm3 (4.5-10.0)
[2022-07-22 05:28] LABS: Lactic Acid Reflex 1.9 mmol/L (0.7-2.0)
[2022-07-22] MEDS: metroNIDAZOLE 250 MG TABLET 500 MG PO ×2 (05:28→13:00)
[2022-07-22 05:33] LABS: Alanine Aminotransferase 23 U/L (6-35); Albumin Level 3.8 g/dL (3.5-5.1); Alkaline Phosphatase 65 U/L (38-126); Anion Gap 11 mmol/L (8-16); Aspartate Amino Transferase 35 U/L (14-36); Bilirubin,Total 0.7 mg/dL (0.2-1.3); Blood Urea Nitrogen 23 mg/dL (7-17); Calcium 8.6 mg/dL (8.4-10.2); Carbon Dioxide 29 mmol/L (22-30); Chloride 96 mmol/L (98-107); Creatine Kinase 602 U/L (30-135); Estimated CRCL calculation 13 ml/min; Estimated Glomerular Filt Rate 12; Glucose 169 mg/dL (65-110); Magnesium 1.9 mg/dL (1.6-2.3); Phosphorus 2.8 mg/dL (2.5-4.5); Potassium 4.3 mmol/L (3.4-5.0); Sodium 136 mmol/L (137-145)
[2022-07-22] MEDS: LEVOTHYROXINE SODIUM 75 MCG TABLET PO (05:37)
[2022-07-22] MEDS: LABETALOL HCL INJ 200 MG in DEXTROSE 5% IN WATER 160 ML 30 MG IV CONT (06:14)
--- NOTE | 2022-07-22 08:42 | WPDINTPN ---
Progress Note: A&P Assessment and Plan (1) Acute respiratory failure: Code(s): J96.00 - Acute respiratory failure, unspecified whether with hypoxia or hypercapnia Status: Acute Assessment and Plan: Acute respiratory failure likely related to altered mental status, seizures, intubated for airway protection on 07/20/2022 -currently on CMV mode of ventilation, peep of 5 in 35% FiO2, maintain O2 sats > 92% -chest x-ray , ABG and vent settings reviewed -continue bronchodilators -sedated with propofol -sedation holiday. Weaning will depend on mental status improvement (2) Pneumonia: Qualifiers: Laterality: bilateral Lung location: lower lobe of lung Pneumonia type: due to unspecified organism Qualified Code(s): J18.9 - Pneumonia, unspecified organism Code(s): J18.9 - Pneumonia, unspecified organism Status: Resolved Assessment and Plan: Leukocytosis, fevers, infiltrates on the chest x-ray, likely related to pneumonia -patient started on add azithromycin, aztreonam and vancomycin (07/21), (allergic to penicillins and ceftriaxone) -blood, sputum cultures, and MRSA screen are negative till now (3) Malignant hypertension: Code(s): I10 - Essential (primary) hypertension Status: Acute Assessment and Plan: Patient malignant hypertension with systolic blood pressures in the ED of 230/107 and consistently remained elevated, patient was started on labetalol infusion which was discontinued upon arrival to the ICU -maintain SBP 160-180 mmHg. -CT scan of the brain revealed possibility of PRES syndrome -neurology following -add amlodipine (4) Seizure: Code(s): R56.9 - Unspecified convulsions Status: Acute Assessment and Plan: Patient seizure activities x2 on 07/20/2022. One episode of seizure for EMS and 2nd episode in the ED. both were witnessed seizure activities. -patient started on Keppra, dosed for hemodialysis -neurology has been consulted and await their recommendations EEG This is an abnormal routine EEG due to the presence of diffuse slowing and significantly suppressed background. These findings are suggestive of severe encephalopathy of unspecified etiology. No seizures were noted throughout the course of the recording. Clinical correlation is recommended. -cannot obtain MRI at [facility] since she is on a ventilator -sedation holiday (5) Posterior reversible encephalopathy syndrome (PRES): Code(s): I67.83 - Posterior reversible encephalopathy syndrome Status: Acute Assessment and Plan: Head CT showed new/worsened extensive nonspecific cerebral white matter disease suspicious for posterior reversible encephalopathy syndrome (PRES). Consider brain MRI without and with contrast. Unable to obtain MRI although it will not change management administrator This may explain altered mental status and seizures Likely secondary to uncontrolled hypertension and end-stage renal disease Blood pressure control Neurology following (6) Type 2 diabetes mellitus with diabetic chronic kidney disease: Code(s): E11.22 - Type 2 diabetes mellitus with diabetic chronic kidney disease Status: Acute Assessment and Plan: Continue Accu-Cheks and sliding scale insulin (7) End-stage renal disease on hemodialysis: Code(s): N18.6 - End stage renal disease; Z99.2 - Dependence on renal dialysis Status: Acute Assessment and Plan: Patient has a history of end-stage renal disease on hemodialysis -nephrology has been following -dialysis per Nephrology (8) Elevated creatine kinase: Code(s): R74.8 - Abnormal levels of other serum enzymes Status: Acute Assessment and Plan: Elevated CK levels as patient was found sitting for extended amount of time in her toilet, also possible related to seizure activity. -will continue to monitor CK levels -receiving dialysis -volume expansion with albumin (9) Elevated troponin: Code(
--- NOTE | 2022-07-22 09:49 | PM.PNNEP ---
Progress Note: A&P Assessment and Plan (1) End stage renal disease: Code(s): N18.6 - End stage renal disease Status: Chronic Assessment and Plan: HD tomorrow and continue M/W/F schedule while hospitalized follow electrolytes, volume status, and clearance (2) Acute respiratory failure: Code(s): J96.00 - Acute respiratory failure, unspecified whether with hypoxia or hypercapnia Status: Acute Assessment and Plan: intubated due to AMS, seizures, and airway protection CXR (in comparison to on admission) concerning for possible pneumonia (see #3) continue ventilator support wean when more stable and improvement in mental status (3) Pneumonia: Qualifiers: Laterality: bilateral Lung location: lower lobe of lung Pneumonia type: due to unspecified organism Qualified Code(s): J18.9 - Pneumonia, unspecified organism Code(s): J18.9 - Pneumonia, unspecified organism Status: Resolved Assessment and Plan: suggested by CXR findings this AM along with leukocytosis and fevers follow culture data empiric antibiotics (4) Seizure: Code(s): R56.9 - Unspecified convulsions Status: Acute Assessment and Plan: seizure activity x 2 on admission/presentation (both witnessed) Neurology following and recommendations noted EEG yesterday with results reviewed further imaging once more stable (5) Hypertension: Code(s): I10 - Essential (primary) hypertension Status: Chronic Assessment and Plan: systolic BP > 200 on admission was on labetalol gtt but has since been weaned off CT scan of brain concerning for PRES resume home medications follow trend of hemodynamics (6) Anemia: Code(s): D64.9 - Anemia, unspecified Status: Chronic Assessment and Plan: due to ESRD Epogen with dialysis follow trend of H/H (7) Diabetes: Code(s): E11.9 - Type 2 diabetes mellitus without complications Status: Deleted Assessment and Plan: follow accuchecks glycemic control per sanitary engineering teacher Will continue to follow. Subjective Date/time seen: 07/22/22 09:49 Interval history: Follow-up for end stage renal disease on hemodialysis. Tolerated dialysis treatment yesterday without any issues or problems; blood pressure under reasonable control without labetalol gtt; remain intubated and on mechanical ventilation; still with low grade fevers in the last 24 hours. Exam Narrative: General: elderly female intubated and mechanical ventilation Heart: normal S1 and S2; no rub Lungs: coarse breath sounds Abdomen: soft, nontender, nondistended, positive bowel sounds Extremities: no cyanosis or clubbing; trace edema Skin: warm and dry Objective Data Vital Signs Vital Signs: Vital Signs Temp Pulse Resp BP Pulse Ox O2 Del Method FiO2 07/22/22 09:00 74 19 170/59 H 97 07/22/22 07:20 80 18 07/22/22 07:10 74 18 07/22/22 07:10 74 96 Mechanical Ventilation 30 07/22/22 07:36 99.6 F 79 17 178/59 H 100 07/22/22 06:14 75 181/55 H 07/22/22 06:00 99.9 F H 79 17 181/55 H 97 07/22/22 06:00 75 07/22/22 06:01 91 99 Mechanical Ventilation 30 07/22/22 05:15 192/57 H 07/22/22 04:00 99.7 F H 76 16 154/48 H 95 07/22/22 04:00 30 07/22/22 04:00 76 16 98 Mechanical Ventilation 07/22/22 01:00 139/46 L 07/22/22 01:15 129/42 L 07/22/22 02:00 99.8 F H 74 16 133/40 L 98 07/22/22 02:00 74 07/22/22 00:00 99.6 F 82 16 153/53 H 97 07/22/22 00:00 30 07/22/22 00:00 82 16 97 Mechanical Ventilation 07/22/22 00:00 76 07/22/22 02:18 76 16 07/22/22 02:00 75 98 Mechanical Ventilation 30 07/22/22 01:58 75 16 07/22/22 00:34 98 172/74 H 07/22/22 00:21 193/68 H 07/21/22 23:15 78 149/52 H 05/0
--- NOTE | 2022-07-22 09:49 | P.PNNP_ITS ---
Progress Note: A&P Assessment and Plan (1) End stage renal disease: Code(s): N18.6 - End stage renal disease Status: Chronic Assessment and Plan: * HD tomorrow and continue M/W/F schedule while hospitalized * follow electrolytes, volume status, and clearance (2) Acute respiratory failure: Code(s): J96.00 - Acute respiratory failure, unspecified whether with hypoxia or hypercapnia Status: Acute Assessment and Plan: * intubated due to AMS, seizures, and airway protection * CXR (in comparison to on admission) concerning for possible pneumonia (see #3) * continue ventilator support * wean when more stable and improvement in mental status (3) Pneumonia: Qualifiers: Laterality: bilateral Lung location: lower lobe of lung Pneumonia type: due to unspecified organism Qualified Code(s): J18.9 - Pneumonia, unspecified organism Code(s): J18.9 - Pneumonia, unspecified organism Status: Resolved Assessment and Plan: * suggested by CXR findings this AM along with leukocytosis and fevers * follow culture data * empiric antibiotics (4) Seizure: Code(s): R56.9 - Unspecified convulsions Status: Acute Assessment and Plan: * seizure activity x 2 on admission/presentation (both witnessed) * Neurology following and recommendations noted * EEG yesterday with results reviewed * further imaging once more stable (5) Hypertension: Code(s): I10 - Essential (primary) hypertension Status: Chronic Assessment and Plan: * systolic BP > 200 on admission * was on labetalol gtt but has since been weaned off * CT scan of brain concerning for PRES * resume home medications * follow trend of hemodynamics (6) Anemia: Code(s): D64.9 - Anemia, unspecified Status: Chronic Assessment and Plan: * due to ESRD * Epogen with dialysis * follow trend of H/H (7) Diabetes: Code(s): E11.9 - Type 2 diabetes mellitus without complications Status: Deleted Assessment and Plan: * follow accuchecks * glycemic control per buncher machine Will continue to follow. Subjective Date/time seen: 07/22/22 09:49 Interval history: Follow-up for end stage renal disease on hemodialysis. Tolerated dialysis treatment yesterday without any issues or problems; blood pressure under reasonable control without labetalol gtt; remain intubated and on mechanical ventilation; still with low grade fevers in the last 24 hours. Exam Narrative: General: elderly female intubated and mechanical ventilation Heart: normal S1 and S2; no rub Lungs: coarse breath sounds Abdomen: soft, nontender, nondistended, positive bowel sounds Extremities: no cyanosis or clubbing; trace edema Skin: warm and dry Objective Data Vital Signs Vital Signs: Vital Signs Temp Pulse Resp BP Pulse Ox O2 Del Method FiO2 07/22/22 09:00 74 19 170/59 H 97 07/22/22 07:20 80 18 07/22/22 07:10 74 18 07/22/22 07:10 74 96 Mechanical Ventilation 30 07/22/22 07:36 99.6 F 79 17 178/59 H 100 07/22/22 06:14 75 181/55 H 07/22/22 06:00 99.9 F H 79 17 181/55 H 97 07/22/22 06:00 75 07/22/22 06:01 91 99 Mechanical Ventilation 30 07/22/22 05:15 192/57 H 05
[2022-07-22] MEDS: HEPARIN SODIUM 5,000 UNITS/ML VIAL 5000 UNITS SUB-Q ×2 (09:57→20:42)
[2022-07-22] MEDS: MINERAL OIL/WHITE PETROLATUM OINTMENT 1 APPLIC EACH EYE ×2 (09:57→20:42)
[2022-07-22] MEDS: PANTOPRAZOLE SODIUM IV 40 MG VIAL IV PUSH (09:57)
[2022-07-22] MEDS: amLODIPine BESYLATE 5 MG TABLET 10 MG FEED TUBE (09:58)
[2022-07-22] MEDS: CENTRAL LINE FLUSH 10 ML IV PUSH ×2 (09:59→13:01)
--- NOTE | 2022-07-22 10:48 | PCNFU ---
Nutrition Follow-Up Complete: Inadequate Oral Intake as related to mechanical vent as evidenced by NPO. goal: Meet estimated nutritional needs Patient is progressing towards goal. We will continue current goal. Pt current nutrition is Nepro at 45 ml/hr. Last recorded weight is 72.1 kg. Bowel Motility:+Bm reported 07/20 Labs Reviewed:Glu 169, GFR 121, BUN 23, Cr 3.6,Hct 26.5,Hgb 9.3,Hct 26.5 Meds Noted:Keppra, Vancomycin, Versed, Fentanyl, Albumin Skin: WNL Additional Notes: Patient remains on mechanical vent and tube feedings of Nepro at 45 ml/hr and tolerating per nursing. Tube feedings providing 1782 kcals/80 gms protein/720 ml water. Meeting 98% caloric needs and 88% protein needs. Flush 30 ml q 4 hours. Agree with diet orders. Will monitor in ICU rounds and reassessing every Thursday and Thursday.
--- NOTE | 2022-07-22 12:03 | WPDNEUROPN ---
Progress Note: A&P Assessment and Plan (1) Seizure: Code(s): R56.9 - Unspecified convulsions Status: Acute (2) Malignant hypertension: Code(s): I10 - Essential (primary) hypertension Status: Acute (3) Posterior reversible encephalopathy syndrome (PRES): Code(s): I67.83 - Posterior reversible encephalopathy syndrome Status: Acute (4) Acute respiratory failure: Code(s): J96.00 - Acute respiratory failure, unspecified whether with hypoxia or hypercapnia Status: Acute Plan Layla Maher is a 77 year old female with a history of hypertension, hyperlipidemia, CKD on dialysis, RCC, diabetes mellitus, BEKA, Crohn's disease, peripheral vascular disease, hypothyroidism who presented after being found unresponsive by her son. It is unknown how long she was down. She had two witnessed seizures on presentation. Blood pressure was elevated to 230s. CT head showed findings suggestive of PRES. Her initial EEG showed very suppressed background, which could be sedation related, but also raises concern for more severe, global injury. No significant change in exam off sedation. Will need to repeat EEG off sedation if able. - I would like to repeat routine EEG tomorrow off sedation. - Blood pressure control per ICU - Agree with maintenance Keppra 500mg BID - MRI brain once extubated Subjective Date/time seen: 07/22/22 12:03 Interval history: Layla Maher is a 77 year old female with a history of hypertension, hyperlipidemia, CKD on dialysis, RCC, diabetes mellitus, BEKA, Crohn's disease, peripheral vascular disease, hypothyroidism who presented after being found unresponsive by her son. He found her unresponsive on the toilet, leaning on the safety railings with her head under the sink. Unknown how long patient was unresponsive. EMS was called, and on their arrival she had a 1 minute generalized tonic-clonic seizure. Her blood sugar was noted to be in the 300s. Upon arrival to ED, she had another witnessed seizure, and was given Ativan 2mg. She was intubated shortly afterwards. Labs were significant for elevated WBC? 22.3 and elevated CK 764 as well as evidence of chronic renal disease. CT head showed new/worsened white matter disease, suspicious for posterior reversible encephalopathy syndrome. She did have a fever up to 103.5 and her blood pressure as high as 230s in the emergency department. She was started on a labetalol drip and admitted to the ICU. She is still being mechanically ventilated and is on versed and fentanyl. She has been taken of labetalol drip. Her blood pressure has been more stable in the 150s systolic. She is currently being treated for possible pneumonia. She has been started on Keppra 500mg BID. Fentanyl and Versed were discontinued yesterday afternoon. Propofol was discontinued ast 7am this morning. Per RN, no significant improvement in exam. Routine EEG done yesterday showed very suppressed background and slowing but no seizures. Review of Systems Review of Systems: ROS unobtainable: Yes unobtainable due to endotracheal tube, unobtainable due to medical condition and unobtainable due to mental status Exam Const: Other: off sedation Eyes: Pupils: Equal, round and reactive pupils present Resp: Other: mechanical ventillation Skin: General skin exam: normal color Neuro: Other: off sedation, eyes are open, staring ahead, no spontaneous eye movements but seems to have some right gaze preference. PERRL. Cough is intact. No gag present. No spontaneous movement of the extremities. No withdrawal of upper extremities to noxious stimuli. Did withdraw LLE slightly to noxious stimuli and slight flicker in the toes of right foot as well. Patient unable to follow commands. Extrem: General: normal to inspection Objective Data Vital Signs Vital Signs: Vital Signs - 24 hr 07/21/22 13:05 07/21/22 13:05 07/21/22 13:05 Temperature 36.8 C 37.1 C Pulse Rate 8
[2022-07-22 12:21] LABS: Glucose Point of Care 176 mg/dl (65-105)
[2022-07-22 17:03] LABS: Glucose Point of Care 161 mg/dl (65-105)
[2022-07-22] MEDS: levETIRAcetam 500MG/NACL 100ML 500 MG/100 ML BAG 400 MG IVPB (17:55)
[2022-07-23] VITALS (34 sets, daily range): BP systolic 148–174; BP diastolic 48–94; PULSE 75–107; RESP 17–21; TEMP 36–38.3; O2SAT 95–98
[2022-07-23] MEDS: IPRATROPIUM BR 0.02% INH SOLN 0.5 MG/2.5 ML VIAL INHALATION ×4 (02:18→20:36)
[2022-07-23] MEDS: LEVALBUTEROL NEB 1.25 MG/3 ML 0.63 MG INHALATION ×4 (02:18→20:36)
[2022-07-23 06:16] LABS: Base Excess ABG 4.3 mEq/l (+/-2.0); HCO3 ABG 27.5 mEq/l (22.0-26.0); Oxygen Saturation ABG 95.2 % (95.0-100.0); PCO2 ABG 36.4 mmHg (35.0-45.0); PO2 ABG 69.1 mmHg (80.0-100.0); pH ABG 7.496 (7.350-7.450)
[2022-07-23 06:17] LABS: Carboxyhemoglobin 0.6 % THb (0-2.0); Oxygen Content ABG 17.7 %vol (16.0-22.0); Oxyhemoglobin 94.4 % THb (90.0-100.0); Total Hemoglobin 13.3 g/dL (12.0-18.0)
[2022-07-23 06:18] LABS: Device VENTILATOR; Fractional Inspired Oxygen 30 %; Modified Allen's Test Pass; Site Drawn RIGHT RADIAL
[2022-07-23 06:19] LABS: Arterial Blood Gas PEEP 5 cmH2O; Arterial Blood Gas Vent Mode CMV; Arterial Blood Gas Ventilator rate 16 /MIN
[2022-07-23 06:20] LABS: Arterial Blood Gas Tidal Volume 400 ml
[2022-07-23] MEDS: LEVOTHYROXINE SODIUM 75 MCG TABLET PO (06:49)
[2022-07-23] MEDS: PROPOFOL IV EMULSION 100 ML 2.27 MG IV CONT (07:05)
[2022-07-23 07:40] LABS: Vancomycin Random 17.6 ug/mL (10-20)
[2022-07-23 07:43] LABS: Alanine Aminotransferase 23 U/L (6-35); Albumin Level 3.7 g/dL (3.5-5.1); Alkaline Phosphatase 100 U/L (38-126); Anion Gap 11 mmol/L (8-16); Aspartate Amino Transferase 31 U/L (14-36); Bilirubin,Total 0.7 mg/dL (0.2-1.3); Blood Urea Nitrogen 40 mg/dL (7-17); Calcium 8.7 mg/dL (8.4-10.2); Carbon Dioxide 26 mmol/L (22-30); Chloride 95 mmol/L (98-107); Estimated CRCL calculation 10 ml/min; Estimated Glomerular Filt Rate 9; Glucose 171 mg/dL (65-110); Phosphorus 2.7 mg/dL (2.5-4.5); Potassium 3.8 mmol/L (3.4-5.0); Sodium 132 mmol/L (137-145)
[2022-07-23 07:59] LABS: Creatine Kinase 484 U/L (30-135); Triglycerides 130 mg/dL (<150)
[2022-07-23 08:11] LABS: Hematocrit 28.4 % (37.0-47.0); Hemoglobin 8.9 g/dL (12.0-15.0); Red Blood Count 3.09 M/mm3 (4.2-5.4); White Blood Count 13.4 K/mm3 (4.5-10.0)
[2022-07-23 08:12] LABS: Basophils Percent Auto 0.2 % (0.2-1.2); Eosinophils Percent Auto 3.2 % (0-4.4); Immature Granulocyte Absolute 0.12 K/mm3 (0.00-0.031); Immature Granulocyte Percent A 0.9 % (0-0.5); Lymphocytes Percent Auto 6.3 % (18.3-44.2); Mean Corpuscular HGB Conc 31.3 g/dl (32-36); Mean Corpuscular Hemoglobin 28.8 pg (26-34); Mean Corpuscular Volume 91.9 fl (80-100); Mean Platelet Volume 9.9 fl (7.4-10.4); Monocytes Percent Auto 7.4 % (2.6-8.5); Platelet Count Result 137 k/mm3 (150-375); Red Cell Distribution Width 14.1 % (11.5-14.5)
[2022-07-23 08:13] LABS: Eosinophils Absolute Auto 0.4 K/mm3 (0-0.3); Lymphocytes Absolute Auto 0.84 K/mm3 (0.9-3.2)
[2022-07-23] MEDS: PANTOPRAZOLE SODIUM IV 40 MG VIAL IV PUSH (08:15)
[2022-07-23] MEDS: amLODIPine BESYLATE 5 MG TABLET 10 MG FEED TUBE (08:15)
[2022-07-23] MEDS: HEPARIN SODIUM 5,000 UNITS/ML VIAL 5000 UNITS SUB-Q ×2 (08:15→20:44)
[2022-07-23] MEDS: metroNIDAZOLE 250 MG TABLET 500 MG PO ×3 (08:17→20:43)
[2022-07-23] MEDS: MINERAL OIL/WHITE PETROLATUM OINTMENT 1 APPLIC EACH EYE ×2 (08:17→20:43)
[2022-07-23 08:22] LABS: Glucose Point of Care 164 mg/dl (65-105)
[2022-07-23 08:22] LABS: Glucose Point of Care 152 mg/dl (65-105)
[2022-07-23 08:30] LABS: Basophils Percent Auto 0.2 % (0.2-1.2); Eosinophils Absolute Auto 0.5 K/mm3 (0-0.3); Eosinophils Percent Auto 3.4 % (0-4.4); Hematocrit 28.4 % (37.0-47.0); Hemoglobin 8.9 g/dL (12.0-15.0); Immature Granulocyte Absolute 0.13 K/mm3 (0.00-0.031); Immature Granulocyte Percent A 0.9 % (0-0.5); Immature Platelet Fraction Pct 4.3 % (0.9-11.2); Lymphocytes Absolute Auto 0.89 K/mm3 (0.9-3.2); Lymphocytes Percent Auto 6.5 % (18.3-44.2); Mean Corpuscular HGB Conc 31.3 g/dl (32-36); Mean Corpuscular Hemoglobin 28.7 pg (26-34); Mean Corpuscular Volume 91.6 fl (80-100); Mean Platelet Volume 10.7 fl (7.4-10.4); Monocytes Absolute Auto 0.9 K/mm3 (0.1-0.6); Monocytes Percent Auto 6.8 % (2.6-8.5); Neutrophils Absolute Auto 11.3 K/mm3 (1.3-6.7); Neutrophils Percent Auto 82.2 % (45.5-73.1); Platelet Count Result 145 k/mm3 (150-375); Red Cell Distribution Width 14.1 % (11.5-14.5); White Blood Count 13.7 K/mm3 (4.5-10.0)
[2022-07-23] MEDS: AZTREONAM 1 GM in SODIUM CHLORIDE 0.9% IV 50 ML 100 ML IVPB (08:30)
--- NOTE | 2022-07-23 09:40 | PC.NURSE ---
Paper documentation exists on this patient due to [employer] [facility] downtime on 07/23/22 from 2200 to 0600.
[2022-07-23] MEDS: LABETALOL HCL INJ 100 MG/20 ML VIAL 20 MG IV PUSH ×2 (09:44→20:54)
--- NOTE | 2022-07-23 09:46 | WPDINTPN ---
Progress Note: A&P Assessment and Plan (1) Acute respiratory failure: Code(s): J96.00 - Acute respiratory failure, unspecified whether with hypoxia or hypercapnia Status: Acute Assessment and Plan: Acute respiratory failure likely related to altered mental status, seizures, intubated for airway protection on 07/20/2022 -currently on CMV mode of ventilation, peep of 5 in 35% FiO2, maintain O2 sats > 92% -chest x-ray , ABG and vent settings reviewed -continue bronchodilators -sedation holiday. Weaning will depend on mental status improvement (2) Pneumonia: Qualifiers: Laterality: bilateral Lung location: lower lobe of lung Pneumonia type: due to unspecified organism Qualified Code(s): J18.9 - Pneumonia, unspecified organism Code(s): J18.9 - Pneumonia, unspecified organism Status: Resolved Assessment and Plan: Leukocytosis, fevers, infiltrates on the chest x-ray, likely related to pneumonia -patient started on add azithromycin, aztreonam and vancomycin (07/21), (allergic to penicillins and ceftriaxone) -blood, sputum cultures, and MRSA screen are negative till now (3) Malignant hypertension: Code(s): I10 - Essential (primary) hypertension Status: Acute Assessment and Plan: Patient malignant hypertension with systolic blood pressures in the ED of 230/107 and consistently remained elevated, patient was started on labetalol infusion which was discontinued upon arrival to the ICU -we have tried to maintain her SBP 160-180 mmHg till now. Will try to bring blood pressure further down to 140-160 -CT scan of the brain revealed possibility of PRES syndrome -neurology following -continue amlodipine. Add metoprolol and losartan -p.r.n. labetalol (4) Seizure: Code(s): R56.9 - Unspecified convulsions Status: Acute Assessment and Plan: Patient seizure activities x2 on 07/20/2022. One episode of seizure for EMS and 2nd episode in the ED. both were witnessed seizure activities. -patient started on Keppra, dosed for hemodialysis -neurology has been consulted and await their recommendations EEG This is an abnormal routine EEG due to the presence of diffuse slowing and significantly suppressed background. These findings are suggestive of severe encephalopathy of unspecified etiology. No seizures were noted throughout the course of the recording. Clinical correlation is recommended. -cannot obtain MRI at [facility] since she is on a ventilator -sedation holiday today - 07/23 repeat EEG performed and report pending (5) Posterior reversible encephalopathy syndrome (PRES): Code(s): I67.83 - Posterior reversible encephalopathy syndrome Status: Acute Assessment and Plan: Head CT showed new/worsened extensive nonspecific cerebral white matter disease suspicious for posterior reversible encephalopathy syndrome (PRES). Consider brain MRI without and with contrast. Unable to obtain MRI although it will not change management specialist This may explain altered mental status and seizures Likely secondary to uncontrolled hypertension and end-stage renal disease Continue with blood pressure control Neurology following (6) Type 2 diabetes mellitus with diabetic chronic kidney disease: Code(s): E11.22 - Type 2 diabetes mellitus with diabetic chronic kidney disease Status: Acute Assessment and Plan: Continue Accu-Cheks and sliding scale insulin (7) End-stage renal disease on hemodialysis: Code(s): N18.6 - End stage renal disease; Z99.2 - Dependence on renal dialysis Status: Acute Assessment and Plan: Patient has a history of end-stage renal disease on hemodialysis -nephrology has been following -dialysis per Nephrology and patient is scheduled for another session today (8) Elevated creatine kinase: Code(s): R74.8 - Abnormal levels of other serum enzymes Status: Acute Assessment and Plan: Elevated CK levels as pa
--- NOTE | 2022-07-23 11:04 | PCFNICU ---
ICU Rounding Note: Pt current nutrition is Nepro at 45 ml/hr. Last recorded weight is 72.1 kg. Bowel Motility:+BM reported 07/20 Labs Reviewed:Glu 171, Cr 4.7,GFR 9, BUN 40, Hct 28.4,Hgb 8.9 Meds Noted:Fentanyl, Keppra, Versed, Vancomycin,, Protonix Skin: WNL Additional Notes: Patient remains on mechanical vent and tube feedings of Nepro at 45 ml/hr and tolerating per nursing. Tube feedings providing 1782 kcals/80 gms protein/720 ml water. Water flush 30 ml a 4 hours. Agree with diet orders. Following daily in ICU rounds. Will monitor in ICU rounds and reassessing every Thursday and Thursday.
--- NOTE | 2022-07-23 11:12 | WPDNEUROLOGY ---
Neurology EEG Report General Information Date of Study: 07/23/22 TEST Routine EEG DIAGNOSIS PRES, new onset seizure CONDITION OF RECORDING Off-sedation EEG NUMBER [id number] CLINICAL HISTORY Repeat routine EEG off sedation. Patient presented initially due to concerns for seizure. She has remained unresponsive since sedation has been weaned off. EEG DESCRIPTION The recording is continuous. The background consists of diffuse mostly delta, but also at times, theta and alpha range waves. There are no significant asymmetries in the background. There is no well-formed posterior dominant rhythm or anterior-posterior gradient. There are occasional sharp transients noted in the left parasagittal region (C3). No electrographic seizures are seen. Normal sleep architecture is not observed. Activation procedures could not be performed due to patient's clinical status. IMPRESSION This is an abnormal routine EEG due to the presence of: 1. Occasional, sharp transients in the left parasagittal region (C3), suggesting a decreased threshold to have seizures from a focal onset mechanism. 2. Diffuse delta and theta range slowing, indicating moderate encephalopathy of unspecified etiology. Overall background is improved from prior routine EEG. Clinical correlation is recommended.
[2022-07-23] MEDS: LOSARTAN POTASSIUM 50 MG TABLET FEED TUBE (11:14)
[2022-07-23] MEDS: METOPROLOL TARTRATE 25 MG TABLET FEED TUBE ×2 (11:14→20:43)
[2022-07-23] MEDS: ALTEPLASE 2 MG VIAL (CATHFLO) IV PUSH ×4 (11:14→14:20)
--- NOTE | 2022-07-23 12:31 | WPDNEUROPN ---
Progress Note: A&P Assessment and Plan (1) Seizure: Code(s): R56.9 - Unspecified convulsions Status: Acute (2) Malignant hypertension: Code(s): I10 - Essential (primary) hypertension Status: Acute (3) Posterior reversible encephalopathy syndrome (PRES): Code(s): I67.83 - Posterior reversible encephalopathy syndrome Status: Acute (4) Acute respiratory failure: Code(s): J96.00 - Acute respiratory failure, unspecified whether with hypoxia or hypercapnia Status: Acute Plan Layla Maher is a 77 year old female with a history of hypertension, hyperlipidemia, CKD on dialysis, RCC, diabetes mellitus, BEKA, Crohn's disease, peripheral vascular disease, hypothyroidism who presented after being found unresponsive by her son. It is unknown how long she was down. She had two witnessed seizures on presentation. Blood pressure was elevated to 230s. CT head showed findings suggestive of PRES. Her initial EEG showed very suppressed background, which could be sedation related, but also raised concern for more severe, global injury. Repeat routine EEG from today shows improved background but still with diffuse slowing and occasional discharges. However, no seizures noted. - Blood pressure control per ICU - Continue maintenance Keppra 500mg BID - MRI brain once extubated Subjective Date/time seen: 07/23/22 12:31 Interval history: Layla Maher is a 77 year old female with a history of hypertension, hyperlipidemia, CKD on dialysis, RCC, diabetes mellitus, BEKA, Crohn's disease, peripheral vascular disease, hypothyroidism who presented after being found unresponsive by her son. He found her unresponsive on the toilet, leaning on the safety railings with her head under the sink. Unknown how long patient was unresponsive. EMS was called, and on their arrival she had a 1 minute generalized tonic-clonic seizure. Her blood sugar was noted to be in the 300s. Upon arrival to ED, she had another witnessed seizure, and was given Ativan 2mg. She was intubated shortly afterwards. Labs were significant for elevated WBC? 22.3 and elevated CK 764 as well as evidence of chronic renal disease. CT head showed new/worsened white matter disease, suspicious for posterior reversible encephalopathy syndrome. She did have a fever up to 103.5 and her blood pressure as high as 230s in the emergency department. She was started on a labetalol drip and admitted to the ICU. She is still being mechanically ventilated and is on versed and fentanyl. She has been taken of labetalol drip. Her blood pressure has been more stable in the 150s systolic. She is currently being treated for possible pneumonia. She has been started on Keppra 500mg BID. Currently on sedation holiday. More movement overall. Routine EEG repeated this morning which showed improved background, but also revealed discharges originating from the left parasagittal region. No seizures noted. Review of Systems Review of Systems: ROS unobtainable: Yes unobtainable due to endotracheal tube, unobtainable due to medical condition and unobtainable due to mental status Exam Const: Other: off sedation Eyes: Pupils: Equal, round and reactive pupils present Resp: Other: mechanical ventillation Skin: General skin exam: normal color Neuro: Other: off sedation, eyes are open with stimulation, gaze is midline. PERRL. Cough is intact. Moving lower extremities spontaneously, moves left more than right. No withdrawal of upper extremities to noxious stimuli. Not able to follow commands Extrem: General: normal to inspection Psych: Other: Unable to assess Objective Data Vital Signs Vital Signs: Vital Signs - 24 hr 07/22/22 13:15 07/22/22 13:15 07/22/22 13:25 Temperature Pulse Rate 78 78 77 Respiratory Rate 22 H 19 Blood Pressure Pulse Oximetry 97 Oxygen Delivery Mechanical Ventilation Fraction of Inspired Oxygen 30
[2022-07-23 12:36] LABS: Glucose Point of Care 173 mg/dl (65-105)
--- NOTE | 2022-07-23 14:45 | P.PNNP_ITS ---
Progress Note: A&P Assessment and Plan (1) End stage renal disease: Code(s): N18.6 - End stage renal disease Status: Chronic Assessment and Plan: * HD today * continue M/W/F schedule while hospitalized * follow electrolytes, volume status, and clearance (2) Acute respiratory failure: Code(s): J96.00 - Acute respiratory failure, unspecified whether with hypoxia or hypercapnia Status: Acute Assessment and Plan: * intubated due to AMS, seizures, and airway protection * CXR (in comparison to on admission) concerning for possible pneumonia (see #3) * continue ventilator support * wean when more stable and improvement in mental status (3) Pneumonia: Qualifiers: Laterality: bilateral Lung location: lower lobe of lung Pneumonia type: due to unspecified organism Qualified Code(s): J18.9 - Pneumonia, unspecified organism Code(s): J18.9 - Pneumonia, unspecified organism Status: Resolved Assessment and Plan: * suggested by CXR findings this AM along with leukocytosis and fevers * follow culture data * empiric antibiotics (4) Seizure: Code(s): R56.9 - Unspecified convulsions Status: Acute Assessment and Plan: * seizure activity x 2 on admission/presentation (both witnessed) * Neurology following and recommendations noted * EEG results reviewed * further imaging once more stable (5) Hypertension: Code(s): I10 - Essential (primary) hypertension Status: Chronic Assessment and Plan: * systolic BP > 200 on admission * was on labetalol gtt but has since been weaned off * CT scan of brain concerning for PRES * resume home medications * follow trend of hemodynamics (6) Anemia: Code(s): D64.9 - Anemia, unspecified Status: Chronic Assessment and Plan: * due to ESRD * Epogen with dialysis * follow trend of H/H (7) Diabetes: Code(s): E11.9 - Type 2 diabetes mellitus without complications Status: Deleted Assessment and Plan: * follow accuchecks * glycemic control per advertising supervisor Will continue to follow. Subjective Date/time seen: 07/23/22 14:45 Interval history: Follow-up for end stage renal disease on hemodialysis. Tolerating dialysis treatment at the time of my visit (seen on HD at ~ 2:35PM); remains intubated and on mechanical ventilation; remains unresponsive when off sedation; EEG results noted; BP on the higher side but stable; low grage temperature noted. Exam Narrative: General: elderly female intubated and mechanical ventilation Heart: normal S1 and S2; no rub Lungs: coarse breath sounds Abdomen: soft, nontender, nondistended, positive bowel sounds Extremities: no cyanosis or clubbing; trace edema Skin: warm and intact Objective Data Vital Signs Vital Signs: Vital Signs Temp Pulse Resp BP Pulse Ox O2 Del Method FiO2 07/23/22 13:55 100.6 F H 96 20 168/64 H 98 07/23/22 14:30 91 21 H 07/23/22 14:08 90 18 07/23/22 14:08 90 96 Mechanical Ventilation 30 07/23/22 12:00 100.6 F H 99 17 163/78 H 96 07/23/22 12:00 92 07/23/22 12:00 30 07/23/22 12:00 96 Mechanical Ventilation 30 07/23/22 11:14 102 H 07/23/22 11:07 104 H 95 Mechanical Ventilation
--- NOTE | 2022-07-23 14:45 | PM.PNNEP ---
Progress Note: A&P Assessment and Plan (1) End stage renal disease: Code(s): N18.6 - End stage renal disease Status: Chronic Assessment and Plan: HD today continue M/W/F schedule while hospitalized follow electrolytes, volume status, and clearance (2) Acute respiratory failure: Code(s): J96.00 - Acute respiratory failure, unspecified whether with hypoxia or hypercapnia Status: Acute Assessment and Plan: intubated due to AMS, seizures, and airway protection CXR (in comparison to on admission) concerning for possible pneumonia (see #3) continue ventilator support wean when more stable and improvement in mental status (3) Pneumonia: Qualifiers: Laterality: bilateral Lung location: lower lobe of lung Pneumonia type: due to unspecified organism Qualified Code(s): J18.9 - Pneumonia, unspecified organism Code(s): J18.9 - Pneumonia, unspecified organism Status: Resolved Assessment and Plan: suggested by CXR findings this AM along with leukocytosis and fevers follow culture data empiric antibiotics (4) Seizure: Code(s): R56.9 - Unspecified convulsions Status: Acute Assessment and Plan: seizure activity x 2 on admission/presentation (both witnessed) Neurology following and recommendations noted EEG results reviewed further imaging once more stable (5) Hypertension: Code(s): I10 - Essential (primary) hypertension Status: Chronic Assessment and Plan: systolic BP > 200 on admission was on labetalol gtt but has since been weaned off CT scan of brain concerning for PRES resume home medications follow trend of hemodynamics (6) Anemia: Code(s): D64.9 - Anemia, unspecified Status: Chronic Assessment and Plan: due to ESRD Epogen with dialysis follow trend of H/H (7) Diabetes: Code(s): E11.9 - Type 2 diabetes mellitus without complications Status: Deleted Assessment and Plan: follow accuchecks glycemic control per copy reader Will continue to follow. Subjective Date/time seen: 07/23/22 14:45 Interval history: Follow-up for end stage renal disease on hemodialysis. Tolerating dialysis treatment at the time of my visit (seen on HD at ~ 2:35PM); remains intubated and on mechanical ventilation; remains unresponsive when off sedation; EEG results noted; BP on the higher side but stable; low grage temperature noted. Exam Narrative: General: elderly female intubated and mechanical ventilation Heart: normal S1 and S2; no rub Lungs: coarse breath sounds Abdomen: soft, nontender, nondistended, positive bowel sounds Extremities: no cyanosis or clubbing; trace edema Skin: warm and intact Objective Data Vital Signs Vital Signs: Vital Signs Temp Pulse Resp BP Pulse Ox O2 Del Method FiO2 07/23/22 13:55 100.6 F H 96 20 168/64 H 98 07/23/22 14:30 91 21 H 07/23/22 14:08 90 18 07/23/22 14:08 90 96 Mechanical Ventilation 07/23/22 12:00 100.6 F H 99 17 163/78 H 96 07/23/22 12:00 92 07/23/22 12:00 30 07/23/22 12:00 96 Mechanical Ventilation 07/23/22 11:14 102 H 07/23/22 11:07 104 H 95 Mechanical Ventilation 07/23/22 10:00 98 07/23/22 10:00 95 21 H 150/68 H 96 07/23/22 08:00 87 07/23/22 08:00 30 07/23/22 08:00 96 Mechanical Ventilation 07/23/22 09:44 106 H 07/23/22 08:42 96 20 07/23/22 08:42 96 97 Mechanical Ventilation 07/23/22 07:47 100.2 F H 89 18 170/48 H 98 07/23/22 02:33 102 H 07/22/22 20:35 74 21 H 07/23/22 05:45 98 97 Mechanical Ventilation 07/23/22 02:18 107 H 97 Mechanical Ventilation 07/23/22 02:18 107 H 17 07/22/22 23:10 97 97 Mechanical Ventilation 07/22/22 20:00 30 07/22/22 20:00 1
--- NOTE | 2022-07-23 14:52 | PM.IMPN ---
Progress Note: A&P Assessment and Plan (1) Acute respiratory failure: Code(s): J96.00 - Acute respiratory failure, unspecified whether with hypoxia or hypercapnia Status: Acute Assessment and Plan: Acute respiratory failure likely related to altered mental status, seizures, intubated for airway protection on 07/20/2022 -currently on CMV mode of ventilation, peep of 5 in 35% FiO2, maintain O2 sats > 92% -chest x-ray , ABG and vent settings reviewed -continue bronchodilators -sedation holiday. Weaning will depend on mental status improvement -vent management per manager therapy (2) Pneumonia: Qualifiers: Laterality: bilateral Lung location: lower lobe of lung Pneumonia type: due to unspecified organism Qualified Code(s): J18.9 - Pneumonia, unspecified organism Code(s): J18.9 - Pneumonia, unspecified organism Status: Resolved Assessment and Plan: Leukocytosis, fevers, infiltrates on the chest x-ray likely related to pneumonia -patient started on azithromycin, aztreonam and vancomycin (07/21), (allergic to penicillins and ceftriaxone) -07/20 BCx: NGTD -07/21 MRSA screen negative -07/21 Sputum culture: Staph aureus Contineu current abx. Narrow coverage when able (3) Malignant hypertension: Code(s): I10 - Essential (primary) hypertension Status: Acute Assessment and Plan: Patient malignant hypertension with systolic blood pressures in the ED of 230/107 and consistently remained elevated, patient was started on labetalol infusion which was discontinued upon arrival to the ICU -try to maintain her SBP 160-180 mmHg till now. Will try to bring blood pressure further down to 140-160 -CT scan of the brain revealed possibility of PRES syndrome -neurology following -continue amlodipine. Metoprolol and losartan added -p.r.n. labetalol (4) Seizure: Code(s): R56.9 - Unspecified convulsions Status: Acute Assessment and Plan: Patient had seizure activity x2 on 07/20/2022. One episode of seizure for EMS and 2nd episode in the ED. both were witnessed seizures. -patient started on Keppra, dosed for hemodialysis -neurology has been consulted and await their recommendations -07/21 EEG: This is an abnormal routine EEG due to the presence of diffuse slowing and significantly suppressed background. These findings are suggestive of severe encephalopathy of unspecified etiology. No seizures were noted throughout the course of the recording. Clinical correlation is recommended. -07/23 EEG off sedation: This is an abnormal routine EEG due to the presence of: 1. Occasional, sharp transients in the left parasagittal region (C3), suggesting a decreased threshold to have seizures from a focal onset mechanism. 2. Diffuse delta and theta range slowing, indicating moderate encephalopathy of unspecified etiology. Overall background is improved from prior routine EEG. Clinical correlation is recommended. -cannot obtain MRI at [facility] since she is on a ventilator -sedation holiday today -appreciate neurology input (5) Posterior reversible encephalopathy syndrome (PRES): Code(s): I67.83 - Posterior reversible encephalopathy syndrome Status: Acute Assessment and Plan: -07/[address]: new/worsened extensive nonspecific cerebral white matter disease suspicious for posterior reversible encephalopathy syndrome (PRES). -Consider brain MRI without and with contrast when able Unable to obtain MRI although it will not global director air and climate change This may explain altered mental status and seizures Likely secondary to uncontrolled hypertension and end-stage renal disease Continue with blood pressure control Neurology following and appreciate theri input (6) Type 2 diabetes mellitus with diabetic chronic kidney disease: Code(s): E11.22 - Type 2 diabetes mellitus with diabetic chronic kidney disease Status: Acute Assessment and Plan: The patient's blood glucose
[2022-07-23] MEDS: levETIRAcetam 500MG/NACL 100ML 500 MG/100 ML BAG 400 MG IVPB (16:13)
[2022-07-23] MEDS: CENTRAL LINE FLUSH 10 ML IV PUSH ×2 (16:23→20:44)
[2022-07-23 18:24] LABS: Glucose Point of Care 213 mg/dl (65-105)
[2022-07-23] MEDS: ACETAMINOPHEN 650 MG SUPPOSITORY RECTAL (18:41)
[2022-07-23] MEDS: INSULIN ASPART (*BKC) 100 UNITS/ML SUB-Q (18:41)
[2022-07-23] MEDS: VANCOMYCIN HCL 500 MG in DEXTROSE 5% 100 ML IVPB (18:44)
[2022-07-23 23:57] LABS: Glucose Point of Care 165 mg/dl (65-105)
[2022-07-24] VITALS (66 sets, daily range): BP systolic 132–197; BP diastolic 53–116; PULSE 63–128; RESP 13–25; TEMP 36–38; O2SAT 94–100
[2022-07-24] MEDS: LABETALOL HCL INJ 100 MG/20 ML VIAL 20 MG IV PUSH ×5 (00:57→23:10)
[2022-07-24] MEDS: PROPOFOL IV EMULSION 100 ML 2.45 MG IV CONT (02:17)
[2022-07-24] MEDS: LEVALBUTEROL NEB 1.25 MG/3 ML 0.63 MG INHALATION ×4 (02:45→20:42)
[2022-07-24] MEDS: IPRATROPIUM BR 0.02% INH SOLN 0.5 MG/2.5 ML VIAL INHALATION ×4 (02:46→20:43)
[2022-07-24 04:49] LABS: Basophils Percent Auto 0.3 % (0.2-1.2); Eosinophils Absolute Auto 0.3 K/mm3 (0-0.3); Eosinophils Percent Auto 2.8 % (0-4.4); Hematocrit 27.1 % (37.0-47.0); Hemoglobin 8.7 g/dL (12.0-15.0); Immature Granulocyte Absolute 0.22 K/mm3 (0.00-0.031); Immature Granulocyte Percent A 1.9 % (0-0.5); Lymphocytes Absolute Auto 0.71 K/mm3 (0.9-3.2); Lymphocytes Percent Auto 6.1 % (18.3-44.2); Mean Corpuscular HGB Conc 32.1 g/dl (32-36); Mean Corpuscular Hemoglobin 29.3 pg (26-34); Mean Corpuscular Volume 91.2 fl (80-100); Mean Platelet Volume 10.1 fl (7.4-10.4); Monocytes Absolute Auto 1.1 K/mm3 (0.1-0.6); Monocytes Percent Auto 9.1 % (2.6-8.5); Neutrophils Absolute Auto 9.3 K/mm3 (1.3-6.7); Neutrophils Percent Auto 79.8 % (45.5-73.1); Platelet Count Result 166 k/mm3 (150-375); Red Blood Count 2.97 M/mm3 (4.2-5.4); White Blood Count 11.6 K/mm3 (4.5-10.0)
[2022-07-24 04:57] LABS: Lactic Acid Reflex 1.2 mmol/L (0.7-2.0); Triglycerides 116 mg/dL (<150)
[2022-07-24 05:01] LABS: Alanine Aminotransferase 25 U/L (6-35); Albumin Level 3.6 g/dL (3.5-5.1); Alkaline Phosphatase 119 U/L (38-126); Anion Gap 8 mmol/L (8-16); Aspartate Amino Transferase 39 U/L (14-36); Bilirubin,Total 0.8 mg/dL (0.2-1.3); Blood Urea Nitrogen 42 mg/dL (7-17); Carbon Dioxide 32 mmol/L (22-30); Chloride 96 mmol/L (98-107); Creatine Kinase 509 U/L (30-135); Estimated CRCL calculation 11 ml/min; Estimated Glomerular Filt Rate 10; Glucose 177 mg/dL (65-110); Magnesium 2.1 mg/dL (1.6-2.3); Phosphorus 2.7 mg/dL (2.5-4.5); Potassium 3.6 mmol/L (3.4-5.0); Sodium 136 mmol/L (137-145)
[2022-07-24 05:15] LABS: Alveolar/Arterial O2 Gradient 104.7 mmHg; Base Excess ABG 5.1 mEq/l (+/-2.0); Carboxyhemoglobin 0.3 % THb (0-2.0); Fractional Inspired Oxygen 30 %; HCO3 ABG 28.5 mEq/l (22.0-26.0); Methemoglobin ABG 0.3 %THb (0-1.5); Oxygen Content ABG 11.9 %vol (16.0-22.0); Oxygen Saturation ABG 94.6 % (95.0-100.0); Oxyhemoglobin 93.3 % THb (90.0-100.0); PCO2 ABG 37.1 mmHg (35.0-45.0); PO2 ABG 65.6 mmHg (80.0-100.0); PO2 FiO2 Ratio Arterial Blood 2.19 %; Reduced Hemoglobin 6.1 %THb (0-5.0)
[2022-07-24 05:17] LABS: Device VENTILATOR; Modified Allen's Test Pass; Site Drawn LEFT RADIAL; pH ABG 7.504 (7.350-7.450)
[2022-07-24 05:18] LABS: Arterial Blood Gas PEEP 5 cmH2O; Arterial Blood Gas Tidal Volume 400 ml; Arterial Blood Gas Vent Mode CMV; Arterial Blood Gas Ventilator rate 16 /MIN
[2022-07-24] MEDS: metroNIDAZOLE 250 MG TABLET 500 MG PO ×3 (06:17→20:31)
[2022-07-24] MEDS: LEVOTHYROXINE SODIUM 75 MCG TABLET PO (06:17)
[2022-07-24] MEDS: CENTRAL LINE FLUSH 10 ML IV PUSH ×3 (06:18→20:40)
[2022-07-24 07:01] LABS: Glucose Point of Care 165 mg/dl (65-105)
[2022-07-24] MEDS: MINERAL OIL/WHITE PETROLATUM OINTMENT 1 APPLIC EACH EYE ×2 (07:28→20:40)
[2022-07-24] MEDS: PROPOFOL IV EMULSION 100 ML 12.23 MG IV CONT (07:28)
[2022-07-24] MEDS: PANTOPRAZOLE SODIUM IV 40 MG VIAL IV PUSH (08:56)
[2022-07-24] MEDS: amLODIPine BESYLATE 5 MG TABLET 10 MG FEED TUBE (08:56)
[2022-07-24] MEDS: HEPARIN SODIUM 5,000 UNITS/ML VIAL 5000 UNITS SUB-Q ×2 (08:57→20:32)
[2022-07-24] MEDS: METOPROLOL TARTRATE 25 MG TABLET FEED TUBE ×2 (08:57→20:32)
[2022-07-24] MEDS: LOSARTAN POTASSIUM 50 MG TABLET FEED TUBE (08:57)
[2022-07-24] MEDS: AZTREONAM 1 GM in SODIUM CHLORIDE 0.9% IV 50 ML 100 ML IVPB (09:06)
--- NOTE | 2022-07-24 09:39 | WPDINTPN ---
Progress Note: A&P Assessment and Plan (1) Acute respiratory failure: Code(s): J96.00 - Acute respiratory failure, unspecified whether with hypoxia or hypercapnia Status: Acute Assessment and Plan: Acute respiratory failure likely related to altered mental status, seizures, intubated for airway protection on 07/20/2022 -currently on CMV mode of ventilation, peep of 5 in 35% FiO2, maintain O2 sats > 92% -chest x-ray , ABG and vent settings reviewed -continue bronchodilators -sedation holiday. Weaning will depend on mental status improvement -will switch propofol to Precedex infusion (2) Pneumonia: Qualifiers: Laterality: bilateral Lung location: lower lobe of lung Pneumonia type: due to unspecified organism Qualified Code(s): J18.9 - Pneumonia, unspecified organism Code(s): J18.9 - Pneumonia, unspecified organism Status: Resolved Assessment and Plan: Leukocytosis, fevers, infiltrates on the chest x-ray, likely related to pneumonia -07/20/2022: Blood cultures are negative x2 -07/21/2022 sputum cultures growing Staph aureus -07/21/2022 MRSA cultures screen are negative -continue azithromycin, aztreonam and vancomycin (07/21), (allergic to penicillins and ceftriaxone) (3) Malignant hypertension: Code(s): I10 - Essential (primary) hypertension Status: Acute Assessment and Plan: Patient malignant hypertension with systolic blood pressures in the ED of 230/107 and consistently remained elevated, patient was started on labetalol infusion which was discontinued upon arrival to the ICU -we have tried to maintain her SBP 160-180 mmHg till now. Will try to bring blood pressure further down to 140-160 -CT scan of the brain revealed possibility of PRES syndrome -neurology following -continue amlodipine, metoprolol, losartan, added hydralazine -p.r.n. labetalol (4) Seizure: Code(s): R56.9 - Unspecified convulsions Status: Acute Assessment and Plan: Patient seizure activities x2 on 07/20/2022. One episode of seizure for EMS and 2nd episode in the ED. both were witnessed seizure activities. -patient started on Keppra, dosed for hemodialysis -neurology has been consulted and await their recommendations 07/21/2022 EEG This is an abnormal routine EEG due to the presence of diffuse slowing and significantly suppressed background. These findings are suggestive of severe encephalopathy of unspecified etiology. No seizures were noted throughout the course of the recording. Clinical correlation is recommended. -cannot obtain MRI at [facility] since she is on a ventilator -sedation holiday today - 07/23 repeat EEG 1. Occasional, sharp transients in the left parasagittal region (C3), suggesting a decreased threshold to have seizures from a focal onset mechanism. 2. Diffuse delta and theta range slowing, indicating moderate encephalopathy of unspecified etiology.Overall background is improved from prior routine EEG. Clinical correlation is recommended. (5) Posterior reversible encephalopathy syndrome (PRES): Code(s): I67.83 - Posterior reversible encephalopathy syndrome Status: Acute Assessment and Plan: Head CT showed new/worsened extensive nonspecific cerebral white matter disease suspicious for posterior reversible encephalopathy syndrome (PRES). Consider brain MRI without and with contrast. Unable to obtain MRI although it will not acid changer This may explain altered mental status and seizures Likely secondary to uncontrolled hypertension and end-stage renal disease Continue with blood pressure control Neurology following (6) Type 2 diabetes mellitus with diabetic chronic kidney disease: Code(s): E11.22 - Type 2 diabetes mellitus with diabetic chronic kidney disease Status: Acute Assessment and Plan: Continue Accu-Cheks and sliding scale insulin (7) End-stage renal disease on hemodialysis: Code(s): N18.6 - E
[2022-07-24] MEDS: dexmedeTOMIDine 400 MCG/100 ML 400 MCG/100 ML BAG IV CONT (10:52)
--- NOTE | 2022-07-24 11:17 | PCFNICU ---
ICU Rounding Note: Pt current nutrition is Nepro at 45 ml/hr. Last recorded weight is 76.7 kg. Bowel Motility:FMS Labs Reviewed:Glu 170, GFR 10, Na 136, Cr 4.3,BUN 42 Meds Noted:Precedex, Propofol 20 [id number] kcals, Flagyl, Keppra, Vancomycin, Albumin. Skin: WNL Additional Notes: Patient on mechanical vent and tube feedings of Nepro at 45 ml/hr and tolerating per nursing. Flush remains at 30 ml q 4 hours. Dialysis planned for today. Agree with diet orders. Will monitor in ICU rounds and reassessing every Thursday and Thursday.
[2022-07-24] MEDS: hydrALAZINE HCL 50 MG TABLET PO ×3 (12:10→20:32)
--- NOTE | 2022-07-24 12:10 | PM.PNNEP ---
Progress Note: A&P Assessment and Plan (1) End stage renal disease: Code(s): N18.6 - End stage renal disease Status: Chronic Assessment and Plan: HD later today will plan/continue T/T/T schedule while in ICU follow electrolytes, volume status, and clearance (2) Acute respiratory failure: Code(s): J96.00 - Acute respiratory failure, unspecified whether with hypoxia or hypercapnia Status: Acute Assessment and Plan: intubated due to AMS, seizures, and airway protection CXR (in comparison to on admission) concerning for possible pneumonia (see #3) continue ventilator support wean when more stable and improvement in mental status (3) Pneumonia: Qualifiers: Laterality: bilateral Lung location: lower lobe of lung Pneumonia type: due to unspecified organism Qualified Code(s): J18.9 - Pneumonia, unspecified organism Code(s): J18.9 - Pneumonia, unspecified organism Status: Resolved Assessment and Plan: suggested by CXR findings this AM along with leukocytosis and fevers follow culture data empiric antibiotics (4) Seizure: Code(s): R56.9 - Unspecified convulsions Status: Acute Assessment and Plan: seizure activity x 2 on admission/presentation (both witnessed) Neurology following and recommendations noted EEG results reviewed further imaging once more stable (5) Hypertension: Code(s): I10 - Essential (primary) hypertension Status: Chronic Assessment and Plan: systolic BP > 200 on admission was on labetalol gtt but has since been weaned off CT scan of brain concerning for PRES on home medications follow trend of hemodynamics (6) Anemia: Code(s): D64.9 - Anemia, unspecified Status: Chronic Assessment and Plan: due to ESRD Epogen with dialysis follow trend of H/H (7) Diabetes: Code(s): E11.9 - Type 2 diabetes mellitus without complications Status: Deleted Assessment and Plan: follow accuchecks glycemic control per reproduction artist Will continue to follow. Subjective Date/time seen: 07/24/22 12:10 Interval history: Follow-up for end stage renal disease on hemodialysis. Only received a partial dialysis treatment (1 hour and 15 minutes) yesterday as infiltrated her AV access with movement of her arm so will receive another short HD treatment later this afternoon; remains intubated/sedated and on mechanical ventilation; even with holding sedation, she is not responsive and does not follow commands; elevated BP noted but remains afebrile. Exam Narrative: General: elderly female intubated/sedated and mechanical ventilation Heart: normal S1 and S2; no rub Lungs: coarse breath sounds Abdomen: soft, nontender, nondistended, positive bowel sounds Extremities: no cyanosis or clubbing; trace edema Skin: no rash Objective Data Vital Signs Vital Signs: Vital Signs Temp Pulse Resp BP Pulse Ox O2 Del Method FiO2 07/24/22 12:00 80 16 07/24/22 12:00 Mechanical Ventilation 30 07/24/22 12:00 77 07/24/22 12:00 30 07/24/22 12:00 99.9 F H 72 14 160/71 H 99 07/24/22 11:45 79 100 Mechanical Ventilation 30 07/24/22 10:00 108 H 17 166/89 H 99 07/24/22 10:56 76 16 07/24/22 10:52 78 13 07/24/22 10:00 79 07/24/22 08:00 Mechanical Ventilation 30 07/24/22 08:00 76 07/24/22 08:00 30 07/24/22 09:07 81 15 07/24/22 08:57 109 H 07/24/22 08:01 76 15 07/24/22 07:59 75 98 Mechanical Ventilation 30 07/24/22 07:50 73 15 07/24/22 07:41 100 F H 113 H 15 155/77 H 100 07/24/22 07:28 63 16 07/24/22 07:28 63 16 07/24/22 03:05 82 19 07/24/22 02:40 78 20 07/24/22 06:18 86 07/24/22 06:00 99.6 F 84 19 197/73 H 99 07/24/22 06:00 81 07/24/22 05:00
--- NOTE | 2022-07-24 12:10 | P.PNNP_ITS ---
Progress Note: A&P Assessment and Plan (1) End stage renal disease: Code(s): N18.6 - End stage renal disease Status: Chronic Assessment and Plan: * HD later today * will plan/continue T/T/T schedule while in ICU * follow electrolytes, volume status, and clearance (2) Acute respiratory failure: Code(s): J96.00 - Acute respiratory failure, unspecified whether with hypoxia or hypercapnia Status: Acute Assessment and Plan: * intubated due to AMS, seizures, and airway protection * CXR (in comparison to on admission) concerning for possible pneumonia (see #3) * continue ventilator support * wean when more stable and improvement in mental status (3) Pneumonia: Qualifiers: Laterality: bilateral Lung location: lower lobe of lung Pneumonia type: due to unspecified organism Qualified Code(s): J18.9 - Pneumonia, unspecified organism Code(s): J18.9 - Pneumonia, unspecified organism Status: Resolved Assessment and Plan: * suggested by CXR findings this AM along with leukocytosis and fevers * follow culture data * empiric antibiotics (4) Seizure: Code(s): R56.9 - Unspecified convulsions Status: Acute Assessment and Plan: * seizure activity x 2 on admission/presentation (both witnessed) * Neurology following and recommendations noted * EEG results reviewed * further imaging once more stable (5) Hypertension: Code(s): I10 - Essential (primary) hypertension Status: Chronic Assessment and Plan: * systolic BP > 200 on admission * was on labetalol gtt but has since been weaned off * CT scan of brain concerning for PRES * on home medications * follow trend of hemodynamics (6) Anemia: Code(s): D64.9 - Anemia, unspecified Status: Chronic Assessment and Plan: * due to ESRD * Epogen with dialysis * follow trend of H/H (7) Diabetes: Code(s): E11.9 - Type 2 diabetes mellitus without complications Status: Deleted Assessment and Plan: * follow accuchecks * glycemic control per tack picker Will continue to follow. Subjective Date/time seen: 07/24/22 12:10 Interval history: Follow-up for end stage renal disease on hemodialysis. Only received a partial dialysis treatment (1 hour and 15 minutes) yesterday as infiltrated her AV access with movement of her arm so will receive another short HD treatment later this afternoon; remains intubated/sedated and on mechanical ventilation; even with holding sedation, she is not responsive and does not follow commands; elevated BP noted but remains afebrile. Exam Narrative: General: elderly female intubated/sedated and mechanical ventilation Heart: normal S1 and S2; no rub Lungs: coarse breath sounds Abdomen: soft, nontender, nondistended, positive bowel sounds Extremities: no cyanosis or clubbing; trace edema Skin: no rash Objective Data Vital Signs Vital Signs: Vital Signs Temp Pulse Resp BP Pulse Ox O2 Del Method FiO2 07/24/22 12:00 80 16 07/24/22 12:00 Mechanical Ventilation 30 07/24/22 12:00 77 07/24/22 12:00 30 07/24/22 12:00 99.9 F H 72 14 160/71 H 99 07/24/22 11:45 79 100 Mechanical Ventilation 07/24/22 10:00 108 H 17 166/89 H 99 07/24/22 10:56
[2022-07-24 12:13] LABS: Glucose Point of Care 175 mg/dl (65-105)
[2022-07-24] MEDS: levETIRAcetam 500MG/NACL 100ML 500 MG/100 ML BAG 400 MG IVPB (15:47)
[2022-07-24] MEDS: EPOETIN ALFA-EPBX 10,000 UNITS/ML VIAL 10000 UNITS IV PUSH (17:07)
[2022-07-24] MEDS: INSULIN ASPART (*BKC) 100 UNITS/ML SUB-Q (17:09)
[2022-07-24 17:15] LABS: Glucose Point of Care 237 mg/dl (65-105)
--- NOTE | 2022-07-24 19:30 | PM.IMPN ---
Progress Note: A&P Assessment and Plan (1) Acute respiratory failure: Code(s): J96.00 - Acute respiratory failure, unspecified whether with hypoxia or hypercapnia Status: Acute Assessment and Plan: Acute respiratory failure likely related to altered mental status, seizures, intubated for airway protection on 07/20/2022 -continue bronchodilators -sedation holiday. Weaning will depend on mental status improvement -vent management per physical integration practitioner (2) Pneumonia: Qualifiers: Laterality: bilateral Lung location: lower lobe of lung Pneumonia type: due to unspecified organism Qualified Code(s): J18.9 - Pneumonia, unspecified organism Code(s): J18.9 - Pneumonia, unspecified organism Status: Resolved Assessment and Plan: Leukocytosis, fevers, infiltrates on the chest x-ray likely related to pneumonia -patient started on azithromycin, aztreonam and vancomycin (07/21), (allergic to penicillins and ceftriaxone) -07/20 BCx: NGTD -07/21 MRSA screen negative -07/21 Sputum culture: Staph aureus Contineu current abx. Narrow coverage when able (3) Malignant hypertension: Code(s): I10 - Essential (primary) hypertension Status: Acute Assessment and Plan: Patient with malignant hypertension with systolic blood pressures in the ED of 230/107 and consistently remained elevated, patient was started on labetalol infusion which was discontinued upon arrival to the ICU -try to maintain her SBP 140-160 -CT scan of the brain revealed possibility of PRES syndrome -neurology following -continue amlodipine, Metoprolol, hydralazine and losartan -p.r.n. labetalol (4) Seizure: Code(s): R56.9 - Unspecified convulsions Status: Acute Assessment and Plan: Patient had seizure activity x2 on 07/20/2022. One episode of seizure for EMS and 2nd episode in the ED. both were witnessed seizures. -patient started on Keppra, dosed for hemodialysis -neurology has been consulted -07/21 EEG: This is an abnormal routine EEG due to the presence of diffuse slowing and significantly suppressed background. These findings are suggestive of severe encephalopathy of unspecified etiology. No seizures were noted throughout the course of the recording. Clinical correlation is recommended. -07/23 EEG off sedation: This is an abnormal routine EEG due to the presence of: 1. Occasional, sharp transients in the left parasagittal region (C3), suggesting a decreased threshold to have seizures from a focal onset mechanism. 2. Diffuse delta and theta range slowing, indicating moderate encephalopathy of unspecified etiology. Overall background is improved from prior routine EEG. Clinical correlation is recommended. -cannot obtain MRI at [facility] since she is on a ventilator -sedation holiday per physical integration practitioner -appreciate neurology input (5) Posterior reversible encephalopathy syndrome (PRES): Code(s): I67.83 - Posterior reversible encephalopathy syndrome Status: Acute Assessment and Plan: -07/[address]: new/worsened extensive nonspecific cerebral white matter disease suspicious for posterior reversible encephalopathy syndrome (PRES). -Consider brain MRI without and with contrast when able Unable to obtain MRI although it will not change consultant This may explain altered mental status and seizures Likely secondary to uncontrolled hypertension and end-stage renal disease Continue with blood pressure control Neurology following and appreciate theri input (6) Type 2 diabetes mellitus with diabetic chronic kidney disease: Code(s): E11.22 - Type 2 diabetes mellitus with diabetic chronic kidney disease Status: Acute Assessment and Plan: The patient's blood glucose was reviewed on 07/24 Glucose remains well controlled. Continue AccuCheks covering with sliding scale. Hypoglycemia protocol available as needed. Continue to monitor (7) End-stage renal disease on hemodial
[2022-07-25] VITALS (27 sets, daily range): BP systolic 136–171; BP diastolic 50–100; PULSE 8–93; RESP 12–21; TEMP 37.5–38.1; O2SAT 93–100
[2022-07-25] MEDS: INSULIN ASPART (*BKC) 100 UNITS/ML SUB-Q ×3 (00:50→18:28)
[2022-07-25] MEDS: hydrALAZINE HCL 20 MG/ML VIAL 10 MG IV PUSH ×2 (01:43→06:29)
[2022-07-25] MEDS: LEVALBUTEROL NEB 1.25 MG/3 ML 0.63 MG INHALATION ×3 (02:32→14:00)
[2022-07-25] MEDS: IPRATROPIUM BR 0.02% INH SOLN 0.5 MG/2.5 ML VIAL INHALATION ×3 (02:32→14:00)
[2022-07-25 04:40] LABS: Glucose Point of Care 209 mg/dl (65-105)
[2022-07-25 06:05] LABS: Alveolar/Arterial O2 Gradient 89.6 mmHg; Base Excess ABG 4.2 mEq/l (+/-2.0); Carboxyhemoglobin 0.3 % THb (0-2.0); Fractional Inspired Oxygen 30 %; Oxygen Content ABG 15.3 %vol (16.0-22.0); Oxygen Saturation ABG 97.2 % (95.0-100.0); Oxyhemoglobin 96.3 % THb (90.0-100.0); PCO2 ABG 34.1 mmHg (35.0-45.0); PO2 ABG 84.2 mmHg (80.0-100.0); PO2 FiO2 Ratio Arterial Blood 2.81 %; Reduced Hemoglobin 3.4 %THb (0-5.0); Total Hemoglobin 11.2 g/dL (12.0-18.0)
[2022-07-25 06:07] LABS: Device VENTILATOR; Modified Allen's Test Pass; Site Drawn RIGHT RADIAL; pH ABG 7.516 (7.350-7.450)
[2022-07-25 06:08] LABS: Arterial Blood Gas PEEP 5 cmH2O; Arterial Blood Gas Vent Mode ASV
[2022-07-25 06:27] LABS: Basophils Absolute Auto 0.1 K/mm3 (0.0-0.1); Basophils Percent Auto 0.4 % (0.2-1.2); Eosinophils Absolute Auto 0.2 K/mm3 (0-0.3); Eosinophils Percent Auto 1.5 % (0-4.4); Hemoglobin 8.7 g/dL (12.0-15.0); Immature Granulocyte Absolute 0.36 K/mm3 (0.00-0.031); Lymphocytes Absolute Auto 0.81 K/mm3 (0.9-3.2); Lymphocytes Percent Auto 6.8 % (18.3-44.2); Mean Corpuscular HGB Conc 31.1 g/dl (32-36); Mean Corpuscular Hemoglobin 28.8 pg (26-34); Mean Corpuscular Volume 92.7 fl (80-100); Mean Platelet Volume 10.4 fl (7.4-10.4); Monocytes Percent Auto 8.7 % (2.6-8.5); Neutrophils Absolute Auto 9.5 K/mm3 (1.3-6.7); Neutrophils Percent Auto 79.6 % (45.5-73.1); Nucleated Red Blood Cells Perc 0.2 % (0.0-0.2); Platelet Count Result 196 k/mm3 (150-375); Red Blood Count 3.02 M/mm3 (4.2-5.4); Red Cell Distribution Width 14.1 % (11.5-14.5); White Blood Count 11.9 K/mm3 (4.5-10.0)
[2022-07-25] MEDS: LEVOTHYROXINE SODIUM 75 MCG TABLET PO (06:30)
[2022-07-25] MEDS: metroNIDAZOLE 250 MG TABLET 500 MG PO ×2 (06:30→14:15)
[2022-07-25 06:45] LABS: Alanine Aminotransferase 28 U/L (6-35); Albumin Level 3.5 g/dL (3.5-5.1); Alkaline Phosphatase 117 U/L (38-126); Anion Gap 8 mmol/L (8-16); Aspartate Amino Transferase 38 U/L (14-36); Bilirubin,Total 0.7 mg/dL (0.2-1.3); Blood Urea Nitrogen 34 mg/dL (7-17); Calcium 9.1 mg/dL (8.4-10.2); Carbon Dioxide 30 mmol/L (22-30); Chloride 101 mmol/L (98-107); Estimated CRCL calculation 15 ml/min; Estimated Glomerular Filt Rate 14; Glucose 216 mg/dL (65-110); Magnesium 2.2 mg/dL (1.6-2.3); Phosphorus 1.8 mg/dL (2.5-4.5); Potassium 3.4 mmol/L (3.4-5.0); Sodium 139 mmol/L (137-145)
[2022-07-25 06:50] LABS: Vancomycin Random 14.4 ug/mL (10-20)
[2022-07-25] MEDS: CENTRAL LINE FLUSH 10 ML IV PUSH ×2 (06:50→14:15)
[2022-07-25 07:26] LABS: Triglycerides 116 mg/dL (<150)
[2022-07-25] MEDS: hydrALAZINE HCL 50 MG TABLET PO ×3 (08:01→16:28)
[2022-07-25] MEDS: MINERAL OIL/WHITE PETROLATUM OINTMENT 1 APPLIC EACH EYE (08:01)
[2022-07-25] MEDS: METOPROLOL TARTRATE 25 MG TABLET FEED TUBE (08:01)
[2022-07-25] MEDS: PANTOPRAZOLE SODIUM IV 40 MG VIAL IV PUSH (08:01)
[2022-07-25] MEDS: LOSARTAN POTASSIUM 100 MG TABLET FEED TUBE (08:01)
[2022-07-25] MEDS: HEPARIN SODIUM 5,000 UNITS/ML VIAL 5000 UNITS SUB-Q (08:02)
[2022-07-25] MEDS: amLODIPine BESYLATE 5 MG TABLET 10 MG FEED TUBE (08:02)
[2022-07-25] MEDS: AZTREONAM 1 GM in SODIUM CHLORIDE 0.9% IV 50 ML 100 ML IVPB (08:04)
[2022-07-25] MEDS: dexmedeTOMIDine 400 MCG/100 ML 400 MCG/100 ML BAG 5.75 MCG IV CONT (08:13)
[2022-07-25] MEDS: VANCOMYCIN 1,000 MG/NS 250 ML 1,000 MG/250 ML BAG 250 MG IVPB (09:17)
--- NOTE | 2022-07-25 09:35 | P.PNNP_ITS ---
Progress Note: A&P Assessment and Plan (1) End stage renal disease: Code(s): N18.6 - End stage renal disease Status: Chronic Assessment and Plan: * HD tomorrow * will plan/continue T/T/T schedule while in ICU * follow electrolytes, volume status, and clearance (2) Acute respiratory failure: Code(s): J96.00 - Acute respiratory failure, unspecified whether with hypoxia or hypercapnia Status: Acute Assessment and Plan: * intubated due to AMS, seizures, and airway protection * CXR (in comparison to on admission) concerning for possible pneumonia (see #3) * continue ventilator support * wean when more stable and improvement in mental status (3) Pneumonia: Qualifiers: Laterality: bilateral Lung location: lower lobe of lung Pneumonia type: due to unspecified organism Qualified Code(s): J18.9 - Pneumonia, unspecified organism Code(s): J18.9 - Pneumonia, unspecified organism Status: Resolved Assessment and Plan: * suggested by CXR findings this AM along with leukocytosis and fevers * follow culture data * empiric antibiotics (4) Seizure: Code(s): R56.9 - Unspecified convulsions Status: Acute Assessment and Plan: * seizure activity x 2 on admission/presentation (both witnessed) * Neurology following and recommendations noted * EEG results reviewed * further imaging once more stable (5) Hypertension: Code(s): I10 - Essential (primary) hypertension Status: Chronic Assessment and Plan: * systolic BP > 200 on admission * was on labetalol gtt but has since been weaned off * CT scan of brain concerning for PRES * on home medications * follow trend of hemodynamics (6) Anemia: Code(s): D64.9 - Anemia, unspecified Status: Chronic Assessment and Plan: * due to ESRD * Epogen with dialysis * follow trend of H/H (7) Diabetes: Code(s): E11.9 - Type 2 diabetes mellitus without complications Status: Deleted Assessment and Plan: * follow accuchecks * glycemic control per hat blocker Will continue to follow. Subjective Date/time seen: 07/25/22 9:35 Interval history: Follow-up for end stage renal disease on hemodialysis. Tolerated short dialysis treatment yesterday without any issues or problems; remains intubated and on mechanical ventilation; blood pressure under better control; low grade fevers noted; still not waking up or following commands as of yet; no other issues/events overnight or earlier this morning. Exam Narrative: General: elderly female intubated/sedated and mechanical ventilation Heart: normal S1 and S2; no rub Lungs: coarse breath sounds Abdomen: soft, nontender, nondistended, positive bowel sounds Extremities: no cyanosis or clubbing; trace edema Skin: no nodules Objective Data Vital Signs Vital Signs: Vital Signs Temp Pulse Resp BP Pulse Ox O2 Del Method FiO2 07/25/22 09:00 74 07/25/22 08:00 59 L 07/25/22 08:00 30 07/25/22 08:00 Mechanical Ventilation 30 07/25/22 11:15 76 100 Mechanical Ventilation 30 07/25/22 10:00 75 16 158/61 H 100 07/25/22 10:27 78 07/25/22 08:00 99.7 F H 73 19 143/100 H 100 07/25/22 08:03 59 L 12 07/25/22 08:03
--- NOTE | 2022-07-25 09:35 | PM.PNNEP ---
Progress Note: A&P Assessment and Plan (1) End stage renal disease: Code(s): N18.6 - End stage renal disease Status: Chronic Assessment and Plan: HD tomorrow will plan/continue T/T/T schedule while in ICU follow electrolytes, volume status, and clearance (2) Acute respiratory failure: Code(s): J96.00 - Acute respiratory failure, unspecified whether with hypoxia or hypercapnia Status: Acute Assessment and Plan: intubated due to AMS, seizures, and airway protection CXR (in comparison to on admission) concerning for possible pneumonia (see #3) continue ventilator support wean when more stable and improvement in mental status (3) Pneumonia: Qualifiers: Laterality: bilateral Lung location: lower lobe of lung Pneumonia type: due to unspecified organism Qualified Code(s): J18.9 - Pneumonia, unspecified organism Code(s): J18.9 - Pneumonia, unspecified organism Status: Resolved Assessment and Plan: suggested by CXR findings this AM along with leukocytosis and fevers follow culture data empiric antibiotics (4) Seizure: Code(s): R56.9 - Unspecified convulsions Status: Acute Assessment and Plan: seizure activity x 2 on admission/presentation (both witnessed) Neurology following and recommendations noted EEG results reviewed further imaging once more stable (5) Hypertension: Code(s): I10 - Essential (primary) hypertension Status: Chronic Assessment and Plan: systolic BP > 200 on admission was on labetalol gtt but has since been weaned off CT scan of brain concerning for PRES on home medications follow trend of hemodynamics (6) Anemia: Code(s): D64.9 - Anemia, unspecified Status: Chronic Assessment and Plan: due to ESRD Epogen with dialysis follow trend of H/H (7) Diabetes: Code(s): E11.9 - Type 2 diabetes mellitus without complications Status: Deleted Assessment and Plan: follow accuchecks glycemic control per bag machine adjuster Will continue to follow. Subjective Date/time seen: 07/25/22 9:35 Interval history: Follow-up for end stage renal disease on hemodialysis. Tolerated short dialysis treatment yesterday without any issues or problems; remains intubated and on mechanical ventilation; blood pressure under better control; low grade fevers noted; still not waking up or following commands as of yet; no other issues/events overnight or earlier this morning. Exam Narrative: General: elderly female intubated/sedated and mechanical ventilation Heart: normal S1 and S2; no rub Lungs: coarse breath sounds Abdomen: soft, nontender, nondistended, positive bowel sounds Extremities: no cyanosis or clubbing; trace edema Skin: no nodules Objective Data Vital Signs Vital Signs: Vital Signs Temp Pulse Resp BP Pulse Ox O2 Del Method FiO2 07/25/22 09:00 74 07/25/22 08:00 59 L 07/25/22 08:00 30 07/25/22 08:00 Mechanical Ventilation 30 07/25/22 11:15 76 100 Mechanical Ventilation 30 07/25/22 10:00 75 16 158/61 H 100 07/25/22 10:27 78 07/25/22 08:00 99.7 F H 73 19 143/100 H 100 07/25/22 08:03 59 L 12 07/25/22 08:03 59 L 100 Mechanical Ventilation 30 07/25/22 08:01 62 07/25/22 00:20 88 20 07/25/22 00:05 78 18 07/25/22 06:00 99.6 F 79 17 168/67 H 100 07/25/22 06:00 79 07/25/22 04:00 74 07/25/22 05:50 75 100 Mechanical Ventilation 30 07/24/22 23:00 167/57 H 07/25/22 03:00 157/52 H 07/24/22 21:00 162/61 H 07/25/22 04:00 72 14 159/85 H 100 07/25/22 04:00 30 07/25/22 00:00 30 07/25/22 02:00 100.2 F H 77 15 142/50 H 07/25/22 00:00 100.3 F H 78 14 171/55 H 07/24/22 22:00 100.4 F H 81 13 156/94 H 07/24/22 20:00 100.0 F H 9
--- NOTE | 2022-07-25 09:52 | WPDINTPN ---
Progress Note: A&P Assessment and Plan (1) Acute respiratory failure: Code(s): J96.00 - Acute respiratory failure, unspecified whether with hypoxia or hypercapnia Status: Acute Assessment and Plan: Acute respiratory failure likely related to altered mental status, seizures, intubated for airway protection on 07/20/2022 -currently on CMV mode of ventilation, peep of 5 in 35% FiO2, maintain O2 sats > 92% -chest x-ray , ABG and vent settings reviewed -continue bronchodilators -sedation holiday. Weaning will depend on mental status improvement -currently on Precedex infusion, weaning Precedex to wake up the patient (2) Pneumonia: Qualifiers: Laterality: bilateral Lung location: lower lobe of lung Pneumonia type: due to unspecified organism Qualified Code(s): J18.9 - Pneumonia, unspecified organism Code(s): J18.9 - Pneumonia, unspecified organism Status: Resolved Assessment and Plan: Leukocytosis, fevers, infiltrates on the chest x-ray, likely related to pneumonia -07/20/2022: Blood cultures are negative x2 -07/21/2022 sputum cultures growing Staph aureus -07/21/2022 MRSA cultures screen are negative -repeat sputum cultures -continue vancomycin (07/21) -07/25/2022: Will discontinue azithromycin and aztreonam (3) Malignant hypertension: Code(s): I10 - Essential (primary) hypertension Status: Acute Assessment and Plan: Patient malignant hypertension with systolic blood pressures in the ED of 230/107 and consistently remained elevated, patient was started on labetalol infusion which was discontinued upon arrival to the ICU -we have tried to maintain her SBP 160-180 mmHg till now. Will try to bring blood pressure further down to 140-160 -CT scan of the brain revealed possibility of PRES syndrome -neurology following -continue amlodipine and hydralazine, increased metoprolol and losartan -p.r.n. labetalol (4) Seizure: Code(s): R56.9 - Unspecified convulsions Status: Acute Assessment and Plan: Patient seizure activities x2 on 07/20/2022. One episode of seizure for EMS and 2nd episode in the ED. both were witnessed seizure activities. -patient started on Keppra, dosed for hemodialysis -neurology has been consulted and await their recommendations 07/21/2022 EEG This is an abnormal routine EEG due to the presence of diffuse slowing and significantly suppressed background. These findings are suggestive of severe encephalopathy of unspecified etiology. No seizures were noted throughout the course of the recording. Clinical correlation is recommended. -cannot obtain MRI at [facility] since she is on a ventilator -sedation holiday today -patient may need to be transferred to outside hospital for MRI, will discuss with Neurology - 07/23 repeat EEG 1. Occasional, sharp transients in the left parasagittal region (C3), suggesting a decreased threshold to have seizures from a focal onset mechanism. 2. Diffuse delta and theta range slowing, indicating moderate encephalopathy of unspecified etiology.Overall background is improved from prior routine EEG. Clinical correlation is recommended. (5) Posterior reversible encephalopathy syndrome (PRES): Code(s): I67.83 - Posterior reversible encephalopathy syndrome Status: Acute Assessment and Plan: Head CT showed new/worsened extensive nonspecific cerebral white matter disease suspicious for posterior reversible encephalopathy syndrome (PRES). Consider brain MRI without and with contrast. Unable to obtain MRI although it will not exchange clerk This may explain altered mental status and seizures Likely secondary to uncontrolled hypertension and end-stage renal disease Continue with blood pressure control Neurology following (6) Type 2 diabetes mellitus with diabetic chronic kidney disease: Code(s): E11.22 - Type 2 diabetes mellitus with diabetic chronic kidney disease Status: Acute
[2022-07-25] MEDS: METOPROLOL TARTRATE 25 MG TABLET PO (10:27)
[2022-07-25] MEDS: ALTEPLASE 2 MG VIAL (CATHFLO) IV PUSH ×2 (12:00)
[2022-07-25 12:02] LABS: Glucose Point of Care 179 mg/dl (65-105)
--- NOTE | 2022-07-25 12:16 | PCNFU ---
Nutrition Follow-Up Complete: Inadequate Oral Intake as related to mechanican vent as evidenced by NPO. New: Increaased protein energy needs related to mechanical ventilation as evidenced by predictive equations Meet estimanted nutritional needs - Goal being met with tube feeding Goal: Pt current nutrition Nepro @ 45: 1782 kcals, 80 g protein, 720 ml free water. Tolerating well. Nutrition recommendation: Add Prosource 1x per day for additional 80 kcals and 20 g protein to meet protein needs. Last recorded weight is 76.7 kg. Bowel Motility:+ BM 07/25/22 Labs Reviewed: BUN 34, Cre 3.2, Glu 216, PO4 1.8 Meds Noted: Precedex, keppra, vanco, flagyl, zithromycin Skin: WNL Additional Notes: Remains on vent. Propofol is discontinued. Recommend adding Prosource 1x per day to meet protein needs while on vent. Will monitor in ICU rounds and reassessing every Thursday and Thursday.
[2022-07-25] MEDS: ACETAMINOPHEN 500 MG TABLET 1000 MG PO (13:10)
[2022-07-25] MEDS: LABETALOL HCL INJ 100 MG/20 ML VIAL 20 MG IV PUSH (15:06)
[2022-07-25] MEDS: levETIRAcetam 500MG/NACL 100ML 500 MG/100 ML BAG 400 MG IVPB (16:24)
--- NOTE | 2022-07-25 17:08 | PM.TDS ---
Transfer Discharge Sum: Prov Provider Date of admission: 07/20/22 17:04 Primary care physician: Justen Singer MD Admitting clinician: Kirby Matute MD Consults: 07/20/22 Consult to Physician Routine Comment: spoke w @ [id number] (, ) Consulting Provider: Marcelle Howard will call order clerk/MD group to consult: nephrology Reason for consultation: dialysis Has provider been notified: Yes 07/20/22 17:07 Consult to Physician Routine Comment: Consulting Provider: Andrés Tran Reason for consultation: malignant htn, pres syndrome, seizure Has provider been notified: Yes 07/20/22 17:08 Consult to Physician Routine Comment: Consulting Provider: Fernando Fleming Reason for consultation: seizure, pres syndrome Has provider been notified: Yes DS: Admitting Diagnosis Discharge Date 07/25/22 Admitting Diagnosis Press, seizure, malignant hypertension DS: Discharge Diagnosis Discharge Diagnosis (1) Posterior reversible encephalopathy syndrome (PRES): Code(s): I67.83 - Posterior reversible encephalopathy syndrome Status: Acute (2) Hypothyroidism: Code(s): E03.9 - Hypothyroidism, unspecified Status: Acute (3) Elevated troponin: Code(s): R77.8 - Other specified abnormalities of plasma proteins Status: Acute (4) Elevated lactic acid level: Code(s): R79.89 - Other specified abnormal findings of blood chemistry Status: Acute (5) Elevated creatine kinase: Code(s): R74.8 - Abnormal levels of other serum enzymes Status: Acute (6) Acute respiratory failure: Code(s): J96.00 - Acute respiratory failure, unspecified whether with hypoxia or hypercapnia Status: Acute Plan # acute respiratory failure #Pneumonia -continue on ventilator CMV peep 5, 35% FiO2 -antibiotics: Azithromycin, Flagyl, vancomycin (aztreonam discontinue) -sedation: Precedex -nebs: levalbuterol -bowel regimen: Colace, MiraLax # acute encephalopathy #malignant hypertension -may be secondary to PRES? Head CT concerning for PRES, recommendation for brain MRI to follow - Blood pressure was 230/107 in the ED, was on labetalol drip, switch amlodipine, hydralazine, increase metoprolol and losartan -patient being transferred for brain MRI while on ventilator, higher level of care -blood pressure management: Losartan 100 mg daily, metoprolol tartrate 50 mg q.12 hours, hydralazine 50 mg q.i.d., p.r.n. labetalol -Keppra for seizure, 2 episodes on 07/20/2022 -unclear underlying mental status, will need further evaluation with brain MRI # chronic conditions -hypothyroidism: Levothyroxine -essential hypertension: As above Diet: NPO, tube feeds DVT prophylaxis: Heparin GI prophylaxis: Protonix Code status: Full code Disposition: Transfer for brain MRI while on ventilator, high-level care Transfer Discharge Sum: Med Medications Active and Home Medications: Home Medications sertraline 100 mg tablet 100 mg PO DAILY #90 tabs 12/02/21 [Rx Confirmed 07/20/22] aspirin 325 mg tablet 325 mg PO DAILY 12/26/21 [History Confirmed 07/20/22] metoprolol tartrate 50 mg tablet 50 mg PO BID 12/26/21 [History Confirmed 07/20/22] levothyroxine 75 mcg tablet 75 mcg PO DAILY #90 tabs 12/31/21 [Rx Confirmed 07/20/22] albuterol sulfate 90 mcg/actuation aerosol inhaler (Ventolin HFA) 2 puff inhalation QID PRN shortness of breath or wheezing #8.5 grams 03/26/22 [Rx Confirmed 07/20/22] buspirone 10 mg tablet 10 mg PO BID #60 tabs 05/12/22 [Rx Confirmed 07/20/22] ergocalciferol (vitamin D2) 1,250 mcg (50,000 unit) capsule 50,000 mcg PO WEEKLY 06/01/22 [History Confirmed 07/20/22] ropinirole 0.5 mg tablet 0.5 mg PO BID #60 tabs 06/13/22 [Rx Confirmed 07/20/22] allopurinol 300 mg tablet 300 mg PO DAILY #90 tabs 06/26/22 [Rx Confirmed 07/20/22] pantoprazole 40 mg tablet,delayed release 40 mg PO QAM #90 tabs 06/26/22 [Rx Confirmed 07/20/22] bupropion HCl 150 mg 24 hr tablet, extended r
[2022-07-25 18:24] LABS: Glucose Point of Care 236 mg/dl (65-105)
== END 2022-07-25 19:25 | disposition short-term general hospital (02) | DRG 70 ==
LOC: ANHED 16:38 → ANHICU 18:35
PROVIDERS: Internal Medicine; Internal Medicine Nephrology; Physician Assistant; Admitting Provider Chiropractor; Emergency Provider Emergency Medicine; PCP Family Medicine Adolescent Medicine; Visit Provider Student in an Organized Health Care Education/Training Program
DX: I67.83 Posterior reversible encephalopathy syndrome (principal); J15.211 Pneumonia due to Methicillin susceptible Staphylococcus aureus; J96.00 Acute respiratory failure, unspecified whether with hypoxia or hypercapnia; N18.6 End stage renal disease; I12.0 Hypertensive chronic kidney disease with stage 5 chronic kidney disease or end stage renal disease; K50.90 Crohn's disease, unspecified, without complications; D63.1 Anemia in chronic kidney disease; E03.9 Hypothyroidism, unspecified; E78.5 Hyperlipidemia, unspecified; E11.22 Type 2 diabetes mellitus with diabetic chronic kidney disease; E11.51 Type 2 diabetes mellitus with diabetic peripheral angiopathy without gangrene; F41.8 Other specified anxiety disorders; G25.81 Restless legs syndrome; G47.33 Obstructive sleep apnea (adult) (pediatric); I25.10 Atherosclerotic heart disease of native coronary artery without angina pectoris; K21.9 Gastro-esophageal reflux disease without esophagitis; N25.0 Renal osteodystrophy; R56.9 Unspecified convulsions; R77.8 Other specified abnormalities of plasma proteins; Z99.2 Dependence on renal dialysis; Z20.822 Contact with and (suspected) exposure to COVID-19; Z88.0 Allergy status to penicillin; Z79.84 Long term (current) use of oral hypoglycemic drugs; Z79.82 Long term (current) use of aspirin; Z89.429 Acquired absence of other toe(s), unspecified side; Z95.5 Presence of coronary angioplasty implant and graft; Z89.422 Acquired absence of other left toe(s); Z89.421 Acquired absence of other right toe(s); Z85.528 Personal history of other malignant neoplasm of kidney; Z90.49 Acquired absence of other specified parts of digestive tract; Z90.710 Acquired absence of both cervix and uterus; Z90.5 Acquired absence of kidney; Z87.891 Personal history of nicotine dependence
CPT/HCPCS: 31500; 36415; 36569; 36600; 70450; 71045; 74176; 80053; 80202; 80307; 81001; 82375; 82550; 82805; 82948; 83050; 83605; 83735; 84100; 84145; 84443; 84478; 84484; 85025; 85027; 85055; 85610; 85730; 86140; 86706; 87040; 87070; 87081; 87147; 87181; 87186; 87205; 87340; 87636; 93005; 94003; 94640; 95816; 96365; 96368; 96375; 99285; A9270; C1751; C9113; G0257; J0131; J0330; J0360; J0456; J1644; J1815; J1953; J2060; J2185; J2250; J2704; J2997; J3010; J3370; J7030; J7060; L1830; P9047; Q5105

== ENCOUNTER 2022-09-28 15:39 | Emergency (ER) | payer MEDICARE, SELFPAY ==
--- NOTE | 2022-09-28 15:46 | ED.FEMALEGU ---
HPI - Female Genitourinary General Chief complaint: Urogenital-Female Stated complaint: painful urination Time Seen by Provider: 09/28/22 15:45 Source: patient Mode of arrival: ambulatory Limitations: no limitations History of Present Illness HPI Narrative: Patient is a 77-year-old female that presents with hallucinations and burning with urination. Patient concerned for UTI. Patient has dialysis Thursday. Patient states she started having the hallucinations on Thursday but is aware of the hallucinations. Patient states she normally urinates 3 to 4 times a day even with dialysis but has not been able to urinate since 7 or 8 this morning. Patient states she has the urgency but is not able to go to the bathroom. Denies any fever, chills, back pain, nausea, vomiting, diarrhea. MD elicited complaint: dysuria Related Data Home Medications Medication Instructions Recorded Confirmed aspirin 325 mg tablet 325 mg PO DAILY 12/26/21 09/28/22 metoprolol tartrate 50 mg tablet 50 mg PO BID 12/26/21 09/28/22 ergocalciferol (vitamin D2) 1,250 50,000 mcg PO WEEKLY 06/01/22 09/28/22 mcg (50,000 unit) capsule amlodipine 5 mg tablet 10 mg PO DAILY 07/21/22 09/28/22 atorvastatin 40 mg tablet 40 mg DAILY 07/21/22 09/28/22 ferrous sulfate 325 mg (65 mg 325 mg PO DAILY 07/21/22 09/28/22 iron) tablet glimepiride 1 mg tablet 1 mg PO BID 07/21/22 09/28/22 omega-3 fatty acids 1 cap PO DAILY 07/21/22 09/28/22 oxybutynin chloride 15 mg 15 mg PO DAILY 07/21/22 09/28/22 tablet,extended release 24 hr oxycodone 10 mg tablet 10 mg PO BID PRN Pain 07/21/22 09/28/22 Allergies Allergy/AdvReac Type Severity Reaction Status Date / Time cortisone Allergy Intermediate Dyspnea / Verified 09/28/22 15:53 SOB Penicillins Allergy Intermediate Dyspnea / Verified 09/28/22 15:53 SOB ceftriaxone [From Rocephin] Allergy Difficulty Verified 09/28/22 15:53 Breathing Review of Systems Review of Systems: All systems reviewed & are unremarkable except as noted in HPI and below Constitutional: Constitutional: Denies chills, Denies fever(s), Denies headache(s), Denies malaise and Denies weakness Eyes: Eyes: Denies change in vision, Denies eye discharge and Denies irritation ENT: Denies otalgia, Denies headache(s), Denies nasal congestion, Denies nasal discharge, Denies sinus pain and Denies sore throat Cardiovascular: Cardiovascular: Denies chest pain, Denies edema, Denies palpitations and Denies dyspnea Respiratory: Respiratory: Denies cough and Denies dyspnea Gastrointestinal: Gastrointestinal: Denies abdominal pain, Denies diarrhea, Denies nausea and Denies vomiting Genitourinary: Genitourinary: Denies hematuria, Reports urinary frequency, Reports nocturia, Reports dysuria, Denies flank pain and Reports urinary urgency Musculoskeletal: Musculoskeletal: Denies back pain and Denies numbness Integumentary/Breasts: Skin/Breast: Denies pruritus and Denies rash Neurologic: Denies headache(s), Denies numbness and Denies weakness Psychiatric: Psychiatric: Reports no additional psychiatric complaints Endocrine: Endocrine: Denies palpitations [facility] Past Medical History Medical History Anemia of chronic disease Coronary artery disease History of stent x3. Crohn's disease Depression with anxiety Diet-controlled diabetes mellitus A1c was 7.0 in 10/2018 and 4.8 in 01/2020. End-stage renal disease on hemodialysis Erythropoietin deficiency anemia Gastroesophageal reflux disease History of kidney stones Hypothyroidism Normal colonoscopy (08/2019) Obstructive sleep apnea No longer using CPAP after 40 lb weight loss. Pericardial effusion (01/2020) Small pericardial effusion on echocardiogram, felt to be related to uremia. Peripheral vascular disease Peritonitis (01/2020) Pneumonia Renal cell carcinoma (2004) Renal osteodystrophy Restless leg syndrome Shingles (199
[2022-09-28 16:00] VITALS: BP 127/95; PULSE 79; RESP 16; TEMP 36.7; O2SAT 98
== END 2022-09-28 17:21 | disposition home or self-care (01) ==
PROVIDERS: Emergency Provider Nurse Practitioner Family; PCP Family Medicine Adolescent Medicine
DX: R30.0 Dysuria (principal); Z87.891 Personal history of nicotine dependence; I25.10 Atherosclerotic heart disease of native coronary artery without angina pectoris; Z95.5 Presence of coronary angioplasty implant and graft; K50.90 Crohn's disease, unspecified, without complications; E11.9 Type 2 diabetes mellitus without complications; N18.6 End stage renal disease; D63.1 Anemia in chronic kidney disease; Z99.2 Dependence on renal dialysis; K21.9 Gastro-esophageal reflux disease without esophagitis; E03.9 Hypothyroidism, unspecified; I73.9 Peripheral vascular disease, unspecified; G25.81 Restless legs syndrome; Z85.528 Personal history of other malignant neoplasm of kidney; Z90.5 Acquired absence of kidney; Z89.422 Acquired absence of other left toe(s); Z89.421 Acquired absence of other right toe(s); Z79.82 Long term (current) use of aspirin
CPT/HCPCS: 99211; G0463

== ENCOUNTER 2022-09-29 11:53 | Emergency (ER) | payer MEDICARE, SELFPAY ==
[2022-09-29 12:05] VITALS: BP 147/47; PULSE 59; RESP 18; TEMP 36.4; O2SAT 96
--- NOTE | 2022-09-29 16:02 | ED.FEMALEGU ---
HPI - Female Genitourinary General Chief complaint: Urogenital-Female Stated complaint: Can't pee, knows she has UTI Time Seen by Provider: 09/29/22 15:15 History of Present Illness HPI Narrative: Patient is a 77-year-old female presenting with concerns for UTI. Patient is a peritoneal dialysis patient. States that she still makes urine. States that she has been unable to pee for the last day even though it feels like she needs to pee. States that this is what it typically feels like when she has a UTI. Denies chest pain, abdominal pain, nausea or vomiting, diarrhea, fevers. No further complaints. Related Data Home Medications Medication Instructions Recorded Confirmed aspirin 325 mg tablet 325 mg PO DAILY 12/26/21 09/28/22 metoprolol tartrate 50 mg tablet 50 mg PO BID 12/26/21 09/28/22 ergocalciferol (vitamin D2) 1,250 50,000 mcg PO WEEKLY 06/01/22 09/28/22 mcg (50,000 unit) capsule amlodipine 5 mg tablet 10 mg PO DAILY 07/21/22 09/28/22 atorvastatin 40 mg tablet 40 mg DAILY 07/21/22 09/28/22 ferrous sulfate 325 mg (65 mg 325 mg PO DAILY 07/21/22 09/28/22 iron) tablet glimepiride 1 mg tablet 1 mg PO BID 07/21/22 09/28/22 omega-3 fatty acids 1 cap PO DAILY 07/21/22 09/28/22 oxybutynin chloride 15 mg 15 mg PO DAILY 07/21/22 09/28/22 tablet,extended release 24 hr oxycodone 10 mg tablet 10 mg PO BID PRN Pain 07/21/22 09/28/22 Allergies Allergy/AdvReac Type Severity Reaction Status Date / Time cortisone Allergy Intermediate Dyspnea / Verified 09/28/22 15:53 SOB Penicillins Allergy Intermediate Dyspnea / Verified 09/28/22 15:53 SOB ceftriaxone [From Rocephin] Allergy Difficulty Verified 09/28/22 15:53 Breathing Review of Systems Review of Systems: All systems reviewed & are unremarkable except as noted in HPI and below PMFSH Past Medical History Medical History Anemia of chronic disease Coronary artery disease History of stent x3. Crohn's disease Depression with anxiety Diet-controlled diabetes mellitus A1c was 7.0 in 10/2018 and 4.8 in 01/2020. End-stage renal disease on hemodialysis Erythropoietin deficiency anemia Gastroesophageal reflux disease History of kidney stones Hypothyroidism Normal colonoscopy (08/2019) Obstructive sleep apnea No longer using CPAP after 40 lb weight loss. Pericardial effusion (01/2020) Small pericardial effusion on echocardiogram, felt to be related to uremia. Peripheral vascular disease Peritonitis (01/2020) Pneumonia Renal cell carcinoma (2004) Renal osteodystrophy Restless leg syndrome Shingles (1991) Surgical History Surgical History Amputation toe Left 2nd toe. History of appendectomy History of bilateral carpal tunnel release History of cardiac catheterization With stent x3. History of cholecystectomy History of colonoscopy History of complete ray amputation of second toe of left foot History of complete ray amputation of second toe of right foot History of cystoscopy With ureteral stents for kidney stones. History of foot surgery Repair of left foot fracture with pinning. History of hysterectomy (1976) With cystocele and rectocele repairs. History of partial nephrectomy (2004) Left partial nephrectomy for kidney cancer. History of tonsillectomy Family History Family History Father Renal cell carcinoma Acute myocardial infarction Cerebrovascular accident Colon polyp Heart disease Hypertension Mother Lung cancer Acute myocardial infarction Cerebrovascular accident Depression Heart disease Hypertension Son Asthma Social History Social History Social History: Surrogate medical decision maker: Dong Maher, son. Code status: Full code. Smoking packs per day: 1 Smoking cigarettes
[2022-09-29 16:45] LABS: Appearance Urine Clear (Clear); Bacteria Urine None Seen /hpf; Bilirubin Urine Negative (Negative); Blood Urine Negative (Negative); Color Urine Yellow (Yellow); Glucose Urine UA Trace mg/dL (Negative); Ketones Urine Negative (Negative); Leukocyte Esterase Ur Negative LEU/UL (Negative); Need Manual Microscopic Reviewed; Nitrate Urine Negative (Negative); Protein Urine 4+ mg/dL (Negative); RBC Urine 0-2 /hpf (0-2); Specific Grav Ur 1.019 (1.001-1.035); Squamous Epithelial Cell Urine None seen /hpf (Few); WBC Urine 0-5 /hpf; pH Urine 7.5 (5.0-9.0)
[2022-09-29 16:46] LABS: Add Urine Microscopic? YES
[2022-09-29 18:34] VITALS: BP 153/66; PULSE 61; RESP 18; O2SAT 97
== END 2022-09-29 18:35 | disposition home or self-care (01) ==
PROVIDERS: General Practice; Emergency Provider Emergency Medicine; PCP Family Medicine Adolescent Medicine
DX: R33.9 Retention of urine, unspecified (principal); F32.A Depression, unspecified; F41.9 Anxiety disorder, unspecified; N18.6 End stage renal disease; Z99.2 Dependence on renal dialysis; D53.8 Other specified nutritional anemias; K21.9 Gastro-esophageal reflux disease without esophagitis; Z87.442 Personal history of urinary calculi; G47.30 Sleep apnea, unspecified; G25.81 Restless legs syndrome; Z85.528 Personal history of other malignant neoplasm of kidney; E03.9 Hypothyroidism, unspecified
CPT/HCPCS: 81001; 99283

== ENCOUNTER 2022-11-04 08:14 | Inpatient (IN) | payer MEDICARE, SELFPAY ==
[2022-11-04] VITALS (41 sets, daily range): BP systolic 93–141; BP diastolic 45–92; PULSE 76–156; RESP 11–27; TEMP 35.9–37; O2SAT 89–100; BMI 25.4
--- NOTE | ~2022-11-04 | MR_ITS ---
EXAMINATION: MRA brain wo con DATE: 11/07/2022 16:53 INDICATION: Right middle cerebral artery vascular distribution infarct TECHNIQUE: Magnetic resonance angiography (MRA) of the brain was performed without intravenous contrast by the 3 D [id number] technique. COMPARISON: Brain MR dated 11/05/2022 FINDINGS: There is normal flow related signal seen within the vertebral, basilar and internal carotid arteries. There is no proximal stenosis. There are no aneurysms identified. Both A1 and P1 segments are paten t. There are also patent bilateral posterior communicator arteries. Cerebral arterial arborization ap pears symmetric. Hyperintense laminar necrosis associated with the region of chronic infarct in the r ight [id number]-esdfermav region. IMPRESSION: 1. 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 Otherwise normal MR angiogram with no evident hemodynamically significant stenosis or aneurysm. Reviewed, dictated and finalized at location A. IMPRESSION: 1. Laminar necrosis/with a region of chronic infarct in the right temporal darius etal occipital region. Otherwise normal MR angiogram with no evident hemodynami meghna significant stenosis or aneurysm.
--- NOTE | ~2022-11-04 | MR_ITS ---
EXAMINATION: MR brain/brain stem wo con DATE: 11/05/2022 10:34 INDICATION: Transient ischemic attack. TECHNIQUE: Magnetic resonance imaging (MRI) of the brain and brainstem was performed without intraven ous contrast. COMPARISON: Head CT 11/04/2022, 07/20/2022 FINDINGS: There is an old infarct in right temporal parietal occipital region. Cortical increased T1- weighted signal intensity and decreased T2*weighted signal intensity in this distribution may be bloo d products or calcification. There are scattered areas of nonspecific increased T2-weighted signal in tensity in the cerebral white matter, which is within normal limits for the patient's age. There is e x vacuo dilatation of trigone and occipital horn of right lateral ventricle. The orbits are normal. T here is mild mucosal thickening in the paranasal sinuses. The mastoid air cells are normal. IMPRESSION: 1. Old infarct in right temporal parietal occipital region, new from 07/20/2022. Reviewed, dictated and finalized at location A.
--- NOTE | ~2022-11-04 | XR_ITS ---
EXAMINATION: XR chest 1V DATE: 11/04/2022 12:58 INDICATION: Altered mental status. Adventitious lung sounds. TECHNIQUE: A single frontal view of the chest was obtained. COMPARISON: Chest single view 07/25/2022, CT abdomen and pelvis 07/21/2022 FINDINGS: There is no pneumonia, pleural effusion, or pneumothorax. Cardiomegaly is noted. IMPRESSION: 1. Cardiomegaly. Reviewed, dictated and finalized at location A. IMPRESSION: 1. Cardiomegaly.
--- NOTE | ~2022-11-04 | US_ITS ---
EXAMINATION: US carotid duplex BI DATE: 11/07/2022 16:48 INDICATION: History of stroke TECHNIQUE: Grayscale, color Doppler, and pulsed Doppler images of the cervical carotid arteries were obtained. The degree of vessel stenosis is placed in one of the following categories: normal, <50%, 5 0-69%, >=70% but less than near-occlusion, near-occlusion, or total occlusion. Note that percent sten osis relative to normal distal artery lumen diameter is indirectly measured from velocity measurement s as described by Reese, et al. Radiology 2003; 229:340-346. Notes: Normal: Peak systolic velocity <125 centimeters/sec and no plaque <50%. Peak systolic velocity <125 ( EDV <40; ICA/CCA PSV ratio <2.0; used these factors only a tandem lesions or low cardiac output or co ntralateral disease) 50-69 %: PSV 125-230 (EDV 40-100; ratio 2-4) >= 70% but less than near occlusion: PSV greater than 230 (EDV > 100; ratio> 4.0) Near Occlusion: PSV that is variable; markedly narrowed lumen Occlusion: Absent flow on color/spectral Doppler and no lumen on cheung scale. COMPARISON: None. FINDINGS: RIGHT: The right common carotid artery (CCA) peak systolic velocity (PSV) is 81 cm/s. The right internal car otid artery (ICA) PSV is 60 cm/s. The right ICA end-diastolic velocity (EDV) is 8 cm/s. The right ICA /CCA PSV ratio is 0.7. The external carotid artery (ECA) PSV is 65 cm/s. There is antegrade flow in t he right vertebral artery. LEFT: The left CCA PSV is 89 cm/s. The left ICA PSV is 74 cm/s. The left ICA EDV is 12 cm/s. The left ICA/C CA PSV ratio is 0.9. The ECA PSV is 108 cm/s. There is antegrade flow in the left vertebral artery. IMPRESSION: 1. Less than 50% stenosis in the right internal carotid artery by sonographic criteria. 2. Less than 50% stenosis in the left internal carotid artery by sonographic criteria. Reviewed, dictated and finalized at location B. IMPRESSION: 1. Less than 50% stenosis in the right internal carotid artery by sonographic c fallon. 2. Less than 50% stenosis in the left internal carotid artery by sonographic hero smart.
--- NOTE | ~2022-11-04 | CT_ITS ---
EXAMINATION: CT brain wo con DATE: 11/04/2022 12:53 INDICATION: Altered mental status. Weakness. TECHNIQUE: Computed tomography (CT) of the head was performed without intravenous contrast. The mA wa s adjusted according to patient size. Iterative reconstruction technique was employed. The dose-lengt h product was 681.00 mGy-cm. COMPARISON: Head CT 07/20/2022 FINDINGS: There is an old infarct in right temporal parietal occipital region. There is ex vacuo dila tation of occipital horn of right lateral ventricle. There is no intracranial hemorrhage, acute infar ction, or abnormal intracranial mass lesion. There is mild mucosal thickening in the paranasal sinuse s. The orbits are normal. There is a trace left mastoid effusion. IMPRESSION: 1. 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 Reviewed, dictated and finalized at location A.
--- NOTE | 2022-11-04 08:16 | ECG_ITS ---
Measurements Intervals [place] Rate: 90 P: TN: 0 QRS: -55 QRSD: 96 T: 43 QT: 388 QTc: 476 Interpretive Statements SINUS RHYTHM VS ECTOPIC ATRIAL RHYTHM WITH BRIEF RUNS OF SVT LEFT ANTERIOR FASCICULAR BLOCK [QRS AXIS <= -45, QR IN I, RS IN II] COMPARED TO ECG 07/20/2022 15:45:33 NO SIGNIFICANT CHANGES Electronically Signed On 11-04-2022 11:27:22 CDT by Mark Kaur M.D.
[2022-11-04 08:54] LABS: Basophils Percent Auto 0.2 % (0.2-1.2); Eosinophils Absolute Auto 0.8 K/mm3 (0-0.3); Eosinophils Percent Auto 5.7 % (0-4.4); Hematocrit 34.9 % (37.0-47.0); Hemoglobin 11.1 g/dL (12.0-15.0); Immature Granulocyte Absolute 0.08 K/mm3 (0.00-0.031); Immature Granulocyte Percent A 0.6 % (0-0.5); Lymphocytes Absolute Auto 1.09 K/mm3 (0.9-3.2); Lymphocytes Percent Auto 7.7 % (18.3-44.2); Mean Corpuscular HGB Conc 31.8 g/dl (32-36); Mean Corpuscular Hemoglobin 29.8 pg (26-34); Mean Corpuscular Volume 93.8 fl (80-100); Mean Platelet Volume 9.3 fl (7.4-10.4); Monocytes Absolute Auto 1.4 K/mm3 (0.1-0.6); Monocytes Percent Auto 9.6 % (2.6-8.5); Neutrophils Absolute Auto 10.7 K/mm3 (1.3-6.7); Neutrophils Percent Auto 76.2 % (45.5-73.1); Platelet Count Result 255 k/mm3 (150-375); Red Blood Count 3.72 M/mm3 (4.2-5.4); Red Cell Distribution Width 14.6 % (11.5-14.5); White Blood Count 14.1 K/mm3 (4.5-10.0)
[2022-11-04 09:03] LABS: Alanine Aminotransferase 15 U/L (6-35); Alkaline Phosphatase 88 U/L (38-126); Anion Gap 15 mmol/L (8-16); Aspartate Amino Transferase 18 U/L (14-36); Bilirubin,Total 0.5 mg/dL (0.2-1.3); Blood Urea Nitrogen 86 mg/dL (7-17); Calcium 8.8 mg/dL (8.4-10.2); Carbon Dioxide 25 mmol/L (22-30); Chloride 90 mmol/L (98-107); Estimated CRCL calculation 5 ml/min; Estimated Glomerular Filt Rate 4; Glucose 108 mg/dL (65-110); Potassium 5.5 mmol/L (3.4-5.0); Sodium 130 mmol/L (137-145)
[2022-11-04] MEDS: SODIUM CHLORIDE 0.9% IV 1,000 ML 999 ML IV CONT (12:33)
[2022-11-04 12:48] LABS: Acetaminophen < 10 ug/mL (10-30); Ammonia < 9 umol/L (9-30); Ethanol < 10 mg/dL (<10); Salicylate < 1.0 mg/dL (2-20)
[2022-11-04 12:54] LABS: INR 1.1; Prothrombin Time 14.6 Seconds (11.1-14.7)
[2022-11-04 12:55] LABS: Partial Thromboplastin Time 27.7 SECONDS (22.3-36.8)
[2022-11-04 12:59] LABS: Amphetamine Screen Urine Negative (Negative); Barbiturate Screen Urine Negative (Negative); Benzodiazepines Screen Urine Negative (Negative); Cannabinoid Screen Urine Negative (Negative); Cocaine Screen Urine Negative (Negative); Methadone Screen Urine Negative (Negative); Opiate Screen Urine Negative (Negative); Phencyclidine Screen Urine Negative (Negative)
[2022-11-04 13:00] LABS: Troponin I 0.018 ng/mL (0.000-0.034)
[2022-11-04 13:02] LABS: Appearance Urine Clear (Clear); Bacteria Urine None Seen /hpf; Bilirubin Urine Negative (Negative); Blood Urine Negative (Negative); Color Urine Yellow (Yellow); Glucose Urine UA Trace mg/dL (Negative); Hyaline Casts Urine Present /lpf; Ketones Urine Negative (Negative); Leukocyte Esterase Ur Negative LEU/UL (Negative); Nitrate Urine Negative (Negative); Protein Urine 3+ mg/dL (Negative); RBC Urine 0-2 /hpf (0-2); Specific Grav Ur 1.013 (1.001-1.035); Squamous Epithelial Cell Urine Occasional /hpf (Few); Urobilinogen Urine 0.2 mg/dL (<2.0)
[2022-11-04 13:05] LABS: Add Urine Microscopic? YES
[2022-11-04 13:11] LABS: Creatine Kinase 30 U/L (30-135)
[2022-11-04 14:05] LABS: Lactic Acid Reflex 1.2 mmol/L (0.7-2.0)
--- NOTE | 2022-11-04 14:50 | ED.GENADULT ---
HPI - General Adult General Chief complaint: Weakness Stated complaint: weak Time Seen by Provider: 11/04/22 11:24 History of Present Illness HPI narrative: 77-year-old female with a history of Crohn's, MDD, hypothyroidism, seizure, Pres Syndrome, HTN, CHF, CVA, CKD on hemodialysis, type 2 diabetes, BEKA reports for evaluation from her home via EMS for increased confusion and weakness. Patient is a poor historian. Per the patient and son at bedside, the patient has been confused for the past couple of days. He states he went to the patient's house yesterday and noticed all the doors were open and the patient was unable to explain why. Patient reports that this morning she got out of bed and walked to her living room, sat in her chair and was able to get up out of her chair. She attributes this to her left leg not working , however states it works fine now. She reports diarrhea that is secondary to her Crohn's disease and unchanged since she was diagnosed at age 10. She denies abdominal pain, chest pain, shortness of breath, headache, neck pain, vision changes, focal numbness or weakness currently, back pain, vomiting, cough, fever. states she was supposed to go to dialysis this morning, however missed it because she came to the ED. Patient lives at home alone. Son present at bedside states that he does not feel comfortable to patient being discharged back to home and is requesting she be placed in assisted living or long term facility. He does report she is DNR/DNI to which patient agrees. Related Data Home Medications Medication Instructions Recorded Confirmed aspirin 325 mg tablet 325 mg PO DAILY 12/26/21 11/04/22 metoprolol tartrate 50 mg tablet 50 mg PO BID 12/26/21 11/04/22 ergocalciferol (vitamin D2) 1,250 50,000 mcg PO WEEKLY 06/01/22 11/04/22 mcg (50,000 unit) capsule amlodipine 5 mg tablet 10 mg PO DAILY 07/21/22 11/04/22 atorvastatin 40 mg tablet 40 mg PO DAILY 07/21/22 11/04/22 ferrous sulfate 325 mg (65 mg 325 mg PO DAILY 07/21/22 11/04/22 iron) tablet glimepiride 1 mg tablet 1 mg PO BID 07/21/22 11/04/22 omega-3 fatty acids 1 cap PO DAILY 07/21/22 11/04/22 oxybutynin chloride 15 mg 15 mg PO DAILY 07/21/22 11/04/22 tablet,extended release 24 hr dronabinol 2.5 mg capsule 2.5 mg PO BID 10/03/22 11/04/22 lisinopril 40 mg tablet 40 mg PO DAILY 11/04/22 11/04/22 Allergies Allergy/AdvReac Type Severity Reaction Status Date / Time cortisone Allergy Intermediate Dyspnea / Verified 10/03/22 11:02 SOB Penicillins Allergy Intermediate Dyspnea / Verified 10/03/22 11:02 SOB ceftriaxone [From Rocephin] Allergy Difficulty Verified 10/03/22 11:02 Breathing Review of Systems Review of Systems: CONSTITUTIONAL: Denies fever, chills EYES: Denies visual changes, redness, or discharge. ENT: Denies rhinorrhea, congestion, sore throat, or otalgia. CARDIOVASCULAR: Denies chest pain, palpitations, or edema. RESPIRATORY: Denies cough or dyspnea. GASTROINTESTINAL: Denies abdominal pain, nausea, vomiting GENITOURINARY: Denies dysuria or hematuria. SKIN: Denies rash or itching. MUSCULOSKELETAL: Denies back pain, joint pain, or myalgia. NEUROLOGIC: See HPI PSYCHIATRIC: Denies anxiety or depression. [facility] Past Medical History Medical History Acute respiratory failure Anemia of chronic disease Coronary artery disease History of stent x3. COVID-19 virus infection Crohn's disease Diet-controlled diabetes mellitus A1c was 7.0 in 10/2018 and 4.8 in 01/2020. End-stage renal disease on hemodialysis Erythropoietin deficiency anemia Gastroesophageal reflux disease History of kidney stones Hypothyroidism Normal colonoscopy (08/2019) Obstructive sleep apnea No longer using CPAP after 40 lb weight loss. Pericardial effusion (01/2020) Small pericardial effusion on echocardiogram, felt to be related to uremia. Peripheral vascular disease Peritonitis (01/2020) P
[2022-11-04] MEDS: LORazepam INJ (*CRX) 2 MG/ML VIAL 0.5 MG IV PUSH ×2 (16:40→16:59)
--- NOTE | 2022-11-04 16:42 | PC.NURSE ---
pt was found at the foot of the bed, standing up, disconnected from the clinical research monitor. This RN and another RN asked pt to lay down and get into bed d/t being a fall risk and needing to be cardiac monitored. Pt states this is BS, i dont care, and I will not lay down. I dont care . This RN instructed that we will call family to come to see pt. Pt would not let RN have her phone and is attempting to get out of bed. LINDA Saunders, ordered medication for pt. PT becoming combative, agitated, and refusing to sit down. Medication given to pt to calm down.
--- NOTE | 2022-11-04 17:12 | PC.NURSE ---
telephone report given Alicia, for room 316.
--- NOTE | 2022-11-04 18:21 | PM.IMHP ---
H&P: HPI History of Present Illness Date/Time: 11/04/22 18:21 Chief Complaint: Confusion Narrative: 77-year-old female with history of Crohn's disease, seizures, PRES syndrome, hypertension, CHF, CVA, ESRD and DM is brought in by EMS for confusion and weakness. Patient is alert but confused; hx obtained from the chart and from family by bedside. Patient was hospitalized here in July for acute respiratory failure from pneumonia and was found to have posterior reversible encephalopathy syndrome. She was transferred to a tertiary care center. She did recover and is now living at home alone. She has a nurse that comes into her house once a week and prepares her medications for the week in a pillbox. Patient was doing well up until 4 days ago when she had difficulty getting out of bed. Family was called and they helped her. She remained weak the following day but family states that improved and she was able to go to hemodialysis. She does hemodialysis [facility]. She had clinical improvement after dialysis. She was able to go out to eat with her family later after dialysis. The next day she felt well. She normally walks with a walker. She does have home therapy. Therapist came out yesterday to see the patient and noted that the patient was very confused. Family was called. They noted that the doors were wide open. Paramedics were called because of the worsening confusion but patient refused transfer. Family states that there has been no complaints of fever, chills, night sweats, nausea, vomiting, chest pain, shortness of breath or cough. Patient makes small amount of urine. She has chronic diarrhea. She has been eating well. Family felt that the patient was safe to be left alone that evening. This morning however patient called the son again stating that she was very weak. Son arrived at the house noted that the patient was confused. She was sitting at the side of the bed and appeared ?depressed?. Speech was clear. Family did find medications scattered on the table and on the floor. Because of this reason, EMS was called and patient was brought to the emergency room for evaluation. Patient was hemodynamically stable. White blood cell count was 14K, sodium 130, potassium 5.5, BUN 86, creatinine 8.7. Total CK and troponins were normal. Ammonia level was less than 9. TSH was normal. Urinalysis was not consistent with UTI. Urine drug screen was negative. Salicylate, acetaminophen alcohol levels were negative. EKG showed normal sinus rhythm versus ectopic atrial rhythm with brief run of SVT. No significant change from prior EKG. Head CT showed old right temporal parietal occipital infarct. This is a new finding when compared to the head CT from July 20. Chest x-ray showed clear lung randolph. She had cardiomegaly noted. Blood cultures and urine cultures were collected. Was given IV fluids. She was given 2 doses of Ativan. According the family patient was yelling out in the emergency room. She also appeared to be paranoid that people were stealing things. Patient was admitted for further care. Patient is awake but confused and unable to provide history. She also was resistant to part of the exam. Review of Systems Review of Systems: ROS unobtainable: Yes unobtainable due to mental status PMFSH Past Medical History Medical History Acute respiratory failure Anemia of chronic disease Coronary artery disease History of stent x3. COVID-19 virus infection Crohn's disease Diet-controlled diabetes mellitus A1c was 7.0 in 10/2018 and 4.8 in 01/2020. End-stage renal disease on hemodialysis Erythropoietin deficiency anemia Gastroesophageal reflux disease History of kidney stones Hypothyroidism Normal colonoscopy (08/2019) Obstructive sleep apnea No longer using CPAP after 40 lb weight loss. Pericardial effusion (01/2020) Small pericardial effusion on ech
[2022-11-04] MEDS: levETIRAcetam 500 MG TABLET PO (20:34)
[2022-11-04] MEDS: MIRTAZAPINE 30 MG TABLET PO (20:34)
[2022-11-04 21:12] LABS: Glucose Point of Care 116 mg/dl (65-105)
[2022-11-05] VITALS (24 sets, daily range): BP systolic 100–188; BP diastolic 47–76; PULSE 69–107; RESP 14–18; TEMP 36–36.6; O2SAT 95–100
[2022-11-05 04:31] LABS: Base Excess ABG -2.4 mEq/l (+/-2.0); Fractional Inspired Oxygen 21 %; Oxygen Saturation ABG 94.3 % (95.0-100.0); Oxyhemoglobin 91.7 % THb (90.0-100.0); PCO2 ABG 36.3 mmHg (35.0-45.0); PO2 ABG 70.3 mmHg (80.0-100.0); PO2 FiO2 Ratio Arterial Blood 3.35 %
[2022-11-05 04:33] LABS: Device ROOM AIR; Modified Allen's Test Pass; Site Drawn RIGHT RADIAL
[2022-11-05 07:03] LABS: Basophils Percent Auto 0.3 % (0.2-1.2); Eosinophils Absolute Auto 0.9 K/mm3 (0-0.3); Eosinophils Percent Auto 9.3 % (0-4.4); Hematocrit 27.8 % (37.0-47.0); Hemoglobin 8.8 g/dL (12.0-15.0); Immature Granulocyte Absolute 0.07 K/mm3 (0.00-0.031); Immature Granulocyte Percent A 0.8 % (0-0.5); Lymphocytes Absolute Auto 1.64 K/mm3 (0.9-3.2); Lymphocytes Percent Auto 17.8 % (18.3-44.2); Mean Corpuscular HGB Conc 31.7 g/dl (32-36); Mean Corpuscular Hemoglobin 29.1 pg (26-34); Mean Corpuscular Volume 92.1 fl (80-100); Mean Platelet Volume 8.9 fl (7.4-10.4); Monocytes Absolute Auto 1.1 K/mm3 (0.1-0.6); Monocytes Percent Auto 11.6 % (2.6-8.5); Neutrophils Absolute Auto 5.5 K/mm3 (1.3-6.7); Neutrophils Percent Auto 60.2 % (45.5-73.1); Platelet Count Result 225 k/mm3 (150-375); Red Blood Count 3.02 M/mm3 (4.2-5.4); Red Cell Distribution Width 14.1 % (11.5-14.5); White Blood Count 9.2 K/mm3 (4.5-10.0)
[2022-11-05 07:20] LABS: Bilirubin,Total 0.4 mg/dL (0.2-1.3); Glucose 82 mg/dL (65-110); Magnesium 1.9 mg/dL (1.6-2.3); Phosphorus 9.7 mg/dL (2.5-4.5); Potassium 5.4 mmol/L (3.4-5.0); Sodium 135 mmol/L (137-145)
[2022-11-05 07:21] LABS: Alanine Aminotransferase 12 U/L (6-35); Albumin Level 3.3 g/dL (3.5-5.1); Alkaline Phosphatase 73 U/L (38-126); Anion Gap 17 mmol/L (8-16); Aspartate Amino Transferase 16 U/L (14-36); Blood Urea Nitrogen 92 mg/dL (7-17); Calcium 7.8 mg/dL (8.4-10.2); Carbon Dioxide 23 mmol/L (22-30); Chloride 95 mmol/L (98-107); Estimated CRCL calculation 4 ml/min; Estimated Glomerular Filt Rate 4
[2022-11-05 07:29] LABS: CRP 17.3 mg/dL (<1.0)
[2022-11-05 07:40] LABS: Cortisol Random 8.65 ug/dL
[2022-11-05 08:09] LABS: Glucose Point of Care 88 mg/dl (65-105)
[2022-11-05] MEDS: SERTRALINE HCL 50 MG TABLET 100 MG PO (08:25)
[2022-11-05] MEDS: levETIRAcetam 500 MG TABLET PO ×2 (08:25→20:45)
[2022-11-05] MEDS: ASPIRIN 325 MG TABLET PO (08:25)
[2022-11-05] MEDS: LEVOTHYROXINE SODIUM 75 MCG TABLET PO (08:25)
[2022-11-05] MEDS: allopurinoL 300 MG TABLET PO (08:25)
[2022-11-05] MEDS: OMEGA 3 POLYUNSAT FATTY ACIDS 1 GM CAP PO (08:25)
[2022-11-05] MEDS: ATORVASTATIN 40 MG TABLET PO (08:26)
[2022-11-05] MEDS: METOPROLOL TARTRATE 50 MG TAB PO ×2 (08:26→20:46)
[2022-11-05] MEDS: oxyBUTYnin CHLORIDE XL 5 MG TAB.ER.24 15 MG PO (08:26)
[2022-11-05] MEDS: buPROPion HCL XL (24 HR) 150 MG TABCR PO (08:26)
[2022-11-05] MEDS: busPIRone HCL 10 MG TABLET PO ×2 (08:26→18:29)
[2022-11-05] MEDS: FERROUS SULFATE 325 MG TABLET DR PO (08:27)
[2022-11-05] MEDS: PANTOPRAZOLE 40 MG TABLET PO (08:27)
[2022-11-05] MEDS: rOPINIRole HCL 0.5 MG TABLET PO ×2 (08:27→18:29)
[2022-11-05 08:31] LABS: Hemoglobin A1C 5.6 % (<5.7)
[2022-11-05 08:46] LABS: Hepatitis B Surface Antigen Negative (Negative)
[2022-11-05 09:07] LABS: Hepatitis B Surface Anti Res Positive
--- NOTE | 2022-11-05 11:38 | WPDNEURCNPN ---
Assessment and Plan Assessment and plan (1) CKD (chronic kidney disease) requiring chronic dialysis: Code(s): N18.6 - End stage renal disease; Z99.2 - Dependence on renal dialysis Status: Acute (2) Major depressive disorder, recurrent, moderate: Code(s): F33.1 - Major depressive disorder, recurrent, moderate Status: Acute (3) Posterior reversible encephalopathy syndrome (PRES): Code(s): I67.83 - Posterior reversible encephalopathy syndrome Status: Acute (4) Seizure: Code(s): R56.9 - Unspecified convulsions Status: Acute (5) Diet-controlled diabetes mellitus: Code(s): E11.9 - Type 2 diabetes mellitus without complications Status: Acute Plan 1 is status post documented stroke on the right side 2. End-stage renal disease on hemodialysis 3. Diabetes mellitus 4. History of posterior reversible ischemic encephalopathy syndrome and 5. History of seizure disorder in addition to the underlying multiple medical problems, will need the edge just mint of the medications will go through the hemodialysis will continue the antihypertensive medication and will benefit from the discharge planning Consult date: 11/05/22 HPI: Layla Maher is a 77 year old female admitted to the hospital in addition to the history of 1. Crohn's disease 2. Major depressive disorder 3. Hypothyroidism 4. Seizure disorder 5. Hypertension 6. Congestive heart failure 7. Press syndrome 8. Diabetes mellitus 9. Obstructive sleep apnea and 10. Chronic renal disease for which she is on hemodialysis brought to the hospital via EMS from home for the complaints of increasing confusion and weakness . This morning she got out of the bed walk to her living room setting chair and was unable to get out of the chair attribute ink that to the left lower extremity not working he did complain of diarrhea again secondary to Crohn's disease she lives at home and does not feel comfortable in going back to home. Medications include aspirin 325 mg daily metoprolol 50 mg b.i.d. amlodipine 10 mg daily atorvastatin 40 mg daily glimepiride 1 mg twice a day and lisinopril 40 mg daily. evaluation up until now includes her CBC with a hemoglobin on the 8.8, sodium 135 with potassium 5.4 but creatinine 9.5 with estimated GFR of only 4, brain MRI documented old infarct in the right temporoparietal occipital region which is new from 07/[address] scan was also abnormal in the same distribution, she is not alcohol intake but former smoker [facility] Past Medical History Medical History Acute respiratory failure Anemia of chronic disease Coronary artery disease History of stent x3. COVID-19 virus infection Crohn's disease Diet-controlled diabetes mellitus A1c was 7.0 in 10/2018 and 4.8 in 01/2020. End-stage renal disease on hemodialysis Erythropoietin deficiency anemia Gastroesophageal reflux disease History of kidney stones Hypothyroidism Normal colonoscopy (08/2019) Obstructive sleep apnea No longer using CPAP after 40 lb weight loss. Pericardial effusion (01/2020) Small pericardial effusion on echocardiogram, felt to be related to uremia. Peripheral vascular disease Peritonitis (01/2020) Pneumonia Renal cell carcinoma (2004) Renal osteodystrophy Restless leg syndrome Shingles (1991) Surgical History Surgical History Amputation toe Left 2nd toe. History of appendectomy History of bilateral carpal tunnel release History of cardiac catheterization With stent x3. History of cholecystectomy History of colonoscopy History of complete ray amputation of second toe of left foot History of complete ray amputation of second toe of right foot History of cystoscopy With ureteral stents for kidney stones. History of foot surgery Repair of left foot fracture with pinning. History of hysterectomy (1976) With cystocele and rectoce
[2022-11-05 11:46] LABS: Glucose Point of Care 170 mg/dl (65-105)
--- NOTE | 2022-11-05 12:05 | PM.IMPN ---
Progress Note: A&P Assessment and Plan (1) Altered mental status: Code(s): R41.82 - Altered mental status, unspecified Status: Acute (2) End-stage renal disease on hemodialysis: Code(s): N18.6 - End stage renal disease; Z99.2 - Dependence on renal dialysis Status: Acute (3) BEKA (obstructive sleep apnea): Code(s): G47.33 - Obstructive sleep apnea (adult) (pediatric) Status: Chronic (4) Diet-controlled diabetes mellitus: Code(s): E11.9 - Type 2 diabetes mellitus without complications Status: Acute (5) Posterior reversible encephalopathy syndrome (PRES): Code(s): I67.83 - Posterior reversible encephalopathy syndrome Status: Acute (6) Seizure: Code(s): R56.9 - Unspecified convulsions Status: Acute (7) Hypertension: Code(s): I10 - Essential (primary) hypertension Status: Chronic Plan Patient appears to been doing well up until a few days prior to this admission when she became more confused. Patient does have a nurse that dispenses her medications once a week. Patient may be taking medications inappropriately resulting in her symptoms. No clear evidence of infectious process. Cultures have been obtained but antibiotics have not been started. Will continue monitor for evidence of infection. She has not missed dialysis although her symptoms seem to improve after her dialysis treatment on Thursday suggesting that she may have a mild uremia contributing to her problems. CVA noted on CT which is a new finding since July but chronic so unlikely to be the cause of her acute symptoms but may be contributing to them. Consider TIA but symptoms have persisted longer than 24 hours making this less likely. No evidence of PRES syndrome by CT scan. Neurology has been consulted with plans for MRI and EEG. Her Keppra has been continued. Nephrology has been consulted with plans for dialysis tomorrow. Serial neuro checks. Start sliding scale protocol. Check A1c. No evidence of hypoglycemia but will hole Amyrl. BP noted to be soft. Will continue metoprolol with parameters. Hold Norvasc and Lisinopril at this time. Hold narcotic. Patient has sleep apnea but presumably has lost considerable amount of weight to no longer requires noninvasive ventilation. Will check ABG to exclude hypercapnia. Will review home medications and continue appropriate medications. SCDs for DVT prophylaxis. Further recommendation as course dictates. Subjective Date/time seen: 11/05/22 12:05 Interval history: No new complaints Exam Narrative: AF 98.3 117/52 92 27 95% ra Gen - well-nourished, well-developed female in no acute respiratory distress who is nontoxic-appearing lying semi recumbent in bed left side down HEENT - normocephalic. Atraumatic. Pupils equal round and reactive. Extraocular motions intact. mild nystagmus with left lateral gaze. Nares patent. Oropharynx was poorly visualized. Dry mucous membranes. Tongue was midline. Palate jackson symmetrically. No facial asymmetry. Neck - neck was supple. No dominant adenopathy, thyromegaly or masses. 2+ carotid upstrokes without bruits. Chest - lungs are clear to auscultation bilaterally. No wheezes or crackles. Breast exam was deferred. CV - heart was regular rate and rhythm. S1-S2. 2/6 systolic murmur USB Abd - abdomen was soft. Nontender. Nondistended. Positive bowel sounds. No organomegaly or masses. Ext - no clubbing, cyanosis or edema. 2+ DP pulses bilaterally. Thrill/bruit left arm fistula. Left 2nd toe amputation Neuro - patient is alert and oriented x2 (month, year). Strength is 5/5 in both upper and lower extremities on limited exam. She refused to lay supine. Cranial nerves 2-12 are intact. Speech is clear. Refused other testing. Psych - pleasant. confused. Skin - warm and dry. Objective Data Vital Signs Vital Signs: Vital Signs - 24 hr 11/04/22 12:21 11/04/22 12:30 11/04/22 13:01 Temp
--- NOTE | 2022-11-05 15:03 | PCNEURO ---
EEG cancelled per Dr Fleming. Pt had two recently and does not feel patient needs another one done at this time.
--- NOTE | 2022-11-05 15:30 | PM.CNNEP ---
Assessment and Plan Assessment and plan (1) End stage renal disease: Code(s): N18.6 - End stage renal disease Status: Deleted Assessment and Plan: HD today and resume T/T/s schedule tomorrow follow electrolytes, volume status, and clearance (2) Altered mental status: Code(s): R41.82 - Altered mental status, unspecified Status: Acute Assessment and Plan: etiology not clear Neurology recommendations noted EEG and MRI ordered uremia playing a role? 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 Thank you for allowing me to participate in the care of this patient. History of Present Illness Reason for Consult Consult date: 11/05/22 Reason for consult: end stage renal disease Chief Complaint Chief complaint: Delerium/CKD History of Present Illness Narrative: The patient is a 77-year-old female with a past medical history as outlined below who presented to [facility] Emergency room via EMS for further evaluation confusion and generalized weakness. The patient was just recently hospitalized in July of 2022 due to acute respiratory failure secondary to pneumonia as well as findings consistent with posterior reversible encephalopathy syndrome. At that time, she was transferred to another facility for ongoing management of this issue. She apparently recovered reasonably well and was subsequently discharged to home. Apparently, the patient had been doing well up until four days prior to admission when she had been having increasing difficulty just getting out of bed. Her family was called due this significance of her weakness and a role able to assist her out of bed. However, she remained weak for the next day but was able to go to her outpatient hemodialysis treatments without any issue. Home therapy came out to see the patient at her home the day prior to admission and noted that she was quite confused. Her family was informed and he requested EMS for further assessment. No reported issues or concerns with regard to fevers, chills, night sweats, nausea, vomiting, chest pain, shortness of breath, or cough. She does have chronic diarrhea secondary to her Crohn's disease but this has not been any different than baseline at the time of EMS assessment, the patient seems to doing somewhat better and refused transfer to the ER for assessment. The next day, the day of admission, the patient called her son same did once again she felt quite weak and with the son came to see the patient, she was once again quite confused. EMS was called once again and she was transferred to the emergency room for further assessment. Workup and evaluation in the emergency room demonstrated the patient to be hemodynamically stable but did seem to be somewhat confused particularly with the events that led to her presentation to the emergency room in general. Routine blood tests were done which demonstrated a mildly elevated white blood cell count, labs consistent with a known history of end-stage renal disease with mild hyponatremia and a mildly elevated potassium as well as an elevated BUN and creatinine. CPK and troponin levels were within normal limits and her ammonia level was normal. TSH was also within normal limits and a urinalysi
[2022-11-05 16:27] LABS: Glucose Point of Care 101 mg/dl (65-105)
--- NOTE | 2022-11-05 16:39 | PC.NURSE ---
Addendum entered by Sherry Atkinson RN 11/05/22 18:46: Pt Hemovac removed, pt tolerated well. Original Note: Pt having dialysis today. Pt continues to have confusion with agitation. Pt son gave consent for 2 nurse verification for pt to have MRI this morning. Pt tolerated well. Pt resting throughout the day. Will continue to monitor pt.
--- NOTE | 2022-11-05 16:54 | PCPTNOTE ---
Attempted PT evaluation, pt currently in dialysis. Will follow.
--- NOTE | 2022-11-05 18:47 | PC.NURSE ---
Pt having dialysis today. Pt continues to have confusion with agitation. Pt son gave consent for 2 nurse verification for pt to have MRI this morning. Pt tolerated well. Pt resting throughout the day. Will continue to monitor pt. Pt had dialysis and tolerated well. Pt had loose BM upon return from dialysis.
[2022-11-05] MEDS: LOPERAMIDE HCL 2 MG CAPSULE 4 MG PO (20:45)
[2022-11-05] MEDS: MIRTAZAPINE 30 MG TABLET PO (20:46)
[2022-11-06] VITALS (24 sets, daily range): BP systolic 119–184; BP diastolic 53–86; PULSE 68–82; RESP 12–18; TEMP 36–36.7; O2SAT 96–98
[2022-11-06 01:32] LABS: Glucose Point of Care 148 mg/dl (65-105)
--- NOTE | 2022-11-06 05:33 | PC.NURSE ---
pt had 3 episodes of diarrhea during this shift, beginning shortly after returning from hemodialysis. pt states she has had crohn's since she was 10yo, and that the diarrhea will not subside until she takes imodium. Pt also stated she would not attempt to eat any supper until she stopped having BMs. Call placed to [facility] who placed an order for a one time dose of imodium as well as an order to collect stool for c-diff testing. pt's diarrhea has seemed to subside since taking imodium, no specimen has been collected at the time of this note.
[2022-11-06 07:43] LABS: Glucose Point of Care 123 mg/dl (65-105)
[2022-11-06 08:02] LABS: Albumin Level 3.2 g/dL (3.5-5.1); Anion Gap 8 mmol/L (8-16); Blood Urea Nitrogen 37 mg/dL (7-17); Carbon Dioxide 24 mmol/L (22-30); Chloride 103 mmol/L (98-107); Estimated CRCL calculation 8 ml/min; Estimated Glomerular Filt Rate 9; Glucose 124 mg/dL (65-110); Phosphorus 5.3 mg/dL (2.5-4.5); Potassium 4.1 mmol/L (3.4-5.0); Sodium 135 mmol/L (137-145)
[2022-11-06] MEDS: oxyBUTYnin CHLORIDE XL 5 MG TAB.ER.24 15 MG PO (09:09)
[2022-11-06] MEDS: buPROPion HCL XL (24 HR) 150 MG TABCR PO (09:09)
[2022-11-06] MEDS: SERTRALINE HCL 50 MG TABLET 100 MG PO (09:10)
[2022-11-06] MEDS: ASPIRIN 325 MG TABLET PO (09:10)
[2022-11-06] MEDS: rOPINIRole HCL 0.5 MG TABLET PO ×2 (09:10→16:54)
[2022-11-06] MEDS: levETIRAcetam 500 MG TABLET PO ×2 (09:10→20:56)
[2022-11-06] MEDS: ATORVASTATIN 40 MG TABLET PO (09:10)
[2022-11-06] MEDS: PANTOPRAZOLE 40 MG TABLET PO (09:10)
[2022-11-06] MEDS: OMEGA 3 POLYUNSAT FATTY ACIDS 1 GM CAP PO (09:10)
[2022-11-06] MEDS: allopurinoL 300 MG TABLET PO (09:11)
[2022-11-06] MEDS: FERROUS SULFATE 325 MG TABLET DR PO (09:11)
[2022-11-06] MEDS: busPIRone HCL 10 MG TABLET PO ×2 (09:11→16:54)
[2022-11-06] MEDS: LEVOTHYROXINE SODIUM 75 MCG TABLET PO (09:11)
--- NOTE | 2022-11-06 10:55 | PM.PNNEP ---
Progress Note: A&P Assessment and Plan (1) End stage renal disease: Code(s): N18.6 - End stage renal disease Status: Deleted Assessment and Plan: HD today and continue T/T/s schedule tomorrow follow electrolytes, volume status, and clearance (2) Altered mental status: Code(s): R41.82 - Altered mental status, unspecified Status: Acute Assessment and Plan: improvement noted etiology not clear Neurology recommendations noted CT and MRI of brain noted EEG results pending follow-up on other pending studies uremia playing a role? -- HD yesterday and today follow mentation (3) Hypertension: Code(s): I10 - Essential (primary) hypertension Status: Chronic Assessment and Plan: reasonable control at this time resume home medications follow trend of hemodynamics (4) Anemia: Code(s): D64.9 - Anemia, unspecified Status: Chronic Assessment and Plan: due to ESRD Epogen with dialysis follow trend of H/H (5) Diabetes: Code(s): E11.9 - Type 2 diabetes mellitus without complications Status: Deleted Assessment and Plan: follow accuchecks glycemic control per line server Will continue to follow. Subjective Date/time seen: 11/06/22 10:55 Interval history: Follow-up for end stage renal disease on hemodialysis. Tolerating hemodialysis treatment at the time of my visit (seen on HD ~ 10:45AM); tolerated dialysis treatment yesterday afternoon as well; mentation seems better if not close to baseline. Exam Narrative: General: elderly female in NAD Heart: normal S1 and S2; no rub Lungs: clear anteriorly Abdomen: soft, nontender, nondistended, positive bowel sounds Extremities: no cyanosis or clubbing; trace edema Skin: warm and dry Objective Data Vital Signs Vital Signs: Vital Signs Temp Pulse Resp BP Pulse Ox O2 Del Method 11/06/22 08:00 73 11/06/22 09:07 75 11/06/22 06:00 97.7 F 75 12 155/53 H 96 11/06/22 04:00 77 11/05/22 20:00 Room Air 11/05/22 22:00 97.3 F L 85 14 155/74 H 100 11/06/22 00:00 78 11/05/22 20:00 90 11/05/22 20:46 85 08/23/23 18:08 87 153/71 H 08/23/23 18:00 88 157/72 H 11/05/22 18:14 97.9 F 89 16 154/68 H 11/05/22 17:40 107 H 163/76 H 11/05/22 17:20 85 157/76 H 11/05/22 17:00 81 134/63 11/05/22 16:40 78 138/62 11/05/22 16:20 75 121/61 11/05/22 16:00 71 124/58 L 11/05/22 15:40 71 118/58 L 11/05/22 15:20 71 115/53 L 11/05/22 16:00 72 11/05/22 15:07 72 114/59 L 11/05/22 14:53 97.3 F L 73 16 130/62 11/05/22 14:46 97.2 F L 69 18 188/58 H 96 11/05/22 14:00 97.8 F 69 18 100/47 L 96 Intake/Output Intake/Output: Intake & Output 11/03/22 11/04/22 11/05/22 11/06/22 23:59 23:59 23:59 23:59 Intake Total 1000 1070 180 Output Total 150 800 Balance 850 270 180 Meds/Results Medications: Active Medications Generic Name Dose Route Start Last Admin Trade Name Freq PRN Reason Stop Dose Admin Albuterol 2 puff 11/04/22 18:51 Albuterol Sulfate (*Sp) Aerosol 1 Puff INHALATION QID PRN shortness of breath or wheezing Allopurinol 300 mg 11/05/22 09:00 11/06/22 09:11 Allopurinol 300 Mg Tablet PO 300 mg DAILY SUKI Administration Aspirin 325 mg 11/05/22 09:00 11/06/22 09:10 Aspirin 325 Mg Tablet PO 325 mg DAILY SUKI Administration Atorvastatin Calcium 40 mg 11/05/22 09:00 11/06/22 09:10 Atorvastatin 40 Mg Tablet PO 40 mg DAILY SUKI Administration Bupropion HCl 150 mg 11/05/22 09:00 11/06/22 09:09 Bupropion Hcl Xl (24 Hr) 150 Mg Tabcr PO 150 mg QAM SUKI Administration Buspirone HCl 10 mg 11/05/22 09:00 11/06/22 09:11 Buspirone Hcl 10 Mg Tablet PO 10 mg BID SUKI Administration Dextrose 12.5 gm 11/04/22 18:48 D
--- NOTE | 2022-11-06 10:55 | P.PNNP_ITS ---
Progress Note: A&P Assessment and Plan (1) End stage renal disease: Code(s): N18.6 - End stage renal disease Status: Deleted Assessment and Plan: * HD today and continue T/T/s schedule tomorrow * follow electrolytes, volume status, and clearance (2) Altered mental status: Code(s): R41.82 - Altered mental status, unspecified Status: Acute Assessment and Plan: * improvement noted * etiology not clear * Neurology recommendations noted * CT and MRI of brain noted * EEG results pending * follow-up on other pending studies * uremia playing a role? -- HD yesterday and today * follow mentation (3) Hypertension: Code(s): I10 - Essential (primary) hypertension Status: Chronic Assessment and Plan: * reasonable control at this time * resume home medications * follow trend of hemodynamics (4) Anemia: Code(s): D64.9 - Anemia, unspecified Status: Chronic Assessment and Plan: * due to ESRD * Epogen with dialysis * follow trend of H/H (5) Diabetes: Code(s): E11.9 - Type 2 diabetes mellitus without complications Status: Deleted Assessment and Plan: * follow accuchecks * glycemic control per drivers' cash clerk Will continue to follow. Subjective Date/time seen: 11/06/22 10:55 Interval history: Follow-up for end stage renal disease on hemodialysis. Tolerating hemodialysis treatment at the time of my visit (seen on HD ~ 10:45AM); tolerated dialysis treatment yesterday afternoon as well; mentation seems better if not close to baseline. Exam Narrative: General: elderly female in NAD Heart: normal S1 and S2; no rub Lungs: clear anteriorly Abdomen: soft, nontender, nondistended, positive bowel sounds Extremities: no cyanosis or clubbing; trace edema Skin: warm and dry Objective Data Vital Signs Vital Signs: Vital Signs Temp Pulse Resp BP Pulse Ox O2 Del Method 11/06/22 08:00 73 11/06/22 09:07 75 11/06/22 06:00 97.7 F 75 12 155/53 H 96 11/06/22 04:00 77 11/05/22 20:00 Room Air 11/05/22 22:00 97.3 F L 85 14 155/74 H 100 11/06/22 00:00 78 11/05/22 20:00 90 11/05/22 20:46 85 11/05/22 18:08 87 153/71 H 11/05/22 18:00 88 157/72 H 11/05/22 18:14 97.9 F 89 16 154/68 H 11/05/22 17:40 107 H 163/76 H 11/05/22 17:20 85 157/76 H 11/05/22 17:00 81 134/63 11/05/22 16:40 78 138/62 11/05/22 16:20 75 121/61 11/05/22 16:00 71 124/58 L 11/05/22 15:40 71 118/58 L 11/05/22 15:20 71 115/53 L 11/05/22 16:00 72 11/05/22 15:07 72 114/59 L 11/05/22 14:53 97.3 F L 73 16 130/62 11/05/22 14:46 97.2 F L 69 18 188/58 H 96 11/05/22 14:00 97.8 F 69 18 100/47 L 96 Intake/Output Intake/Output: Intake & Output 11/03/22 11/04/22 11/05/22 11/06/22 23:59 23:59 23:59 23:59 Intake Total 1000 1070 180 Output Total 150 800 Balance 850 270 180 Meds/Results Medications: Active Medications
[2022-11-06 11:05] LABS: Toxigenic C. Diff POSITIVE (NEGATIVE)
--- NOTE | 2022-11-06 11:06 | PM.IMPN ---
Progress Note: A&P Assessment and Plan (1) Altered mental status: Code(s): R41.82 - Altered mental status, unspecified Status: Acute (2) End-stage renal disease on hemodialysis: Code(s): N18.6 - End stage renal disease; Z99.2 - Dependence on renal dialysis Status: Acute (3) BEKA (obstructive sleep apnea): Code(s): G47.33 - Obstructive sleep apnea (adult) (pediatric) Status: Chronic (4) Diet-controlled diabetes mellitus: Code(s): E11.9 - Type 2 diabetes mellitus without complications Status: Acute (5) Posterior reversible encephalopathy syndrome (PRES): Code(s): I67.83 - Posterior reversible encephalopathy syndrome Status: Acute (6) Seizure: Code(s): R56.9 - Unspecified convulsions Status: Acute (7) Hypertension: Code(s): I10 - Essential (primary) hypertension Status: Chronic Plan Awaiting placement Subjective Date/time seen: 11/06/22 11:06 Interval history: No complaint Exam Narrative: AF 98.3 117/52 92 27 95% ra Gen - well-nourished, well-developed female in no acute respiratory distress who is nontoxic-appearing lying semi recumbent in bed left side down HEENT - normocephalic. Atraumatic. Pupils equal round and reactive. Extraocular motions intact. mild nystagmus with left lateral gaze. Nares patent. Oropharynx was poorly visualized. Dry mucous membranes. Tongue was midline. Palate jackson symmetrically. No facial asymmetry. Neck - neck was supple. No dominant adenopathy, thyromegaly or masses. 2+ carotid upstrokes without bruits. Chest - lungs are clear to auscultation bilaterally. No wheezes or crackles. Breast exam was deferred. CV - heart was regular rate and rhythm. S1-S2. 2/6 systolic murmur USB Abd - abdomen was soft. Nontender. Nondistended. Positive bowel sounds. No organomegaly or masses. Ext - no clubbing, cyanosis or edema. 2+ DP pulses bilaterally. Thrill/bruit left arm fistula. Left 2nd toe amputation Neuro - patient is alert and oriented x2 (month, year). Strength is 5/5 in both upper and lower extremities on limited exam. She refused to lay supine. Cranial nerves 2-12 are intact. Speech is clear. Refused other testing. Psych - pleasant. confused. Skin - warm and dry. Objective Data Vital Signs Vital Signs: Vital Signs - 24 hr 11/05/22 14:00 11/05/22 14:46 11/05/22 14:53 Temperature 97.8 F 97.2 F L 97.3 F L Pulse Rate 69 69 73 Respiratory Rate 18 18 16 Blood Pressure 100/47 L 188/58 H 130/62 Pulse Oximetry 96 96 Oxygen Delivery 11/05/22 15:07 11/05/22 16:00 11/05/22 15:20 Temperature Pulse Rate 72 72 71 Respiratory Rate Blood Pressure 114/59 L 115/53 L Pulse Oximetry Oxygen Delivery 11/05/22 15:40 11/05/22 16:00 11/05/22 16:20 Temperature Pulse Rate 71 71 75 Respiratory Rate Blood Pressure 118/58 L 124/58 L 121/61 Pulse Oximetry Oxygen Delivery 11/05/22 16:40 11/05/22 17:00 11/05/22 17:20 Temperature Pulse Rate 78 81 85 Respiratory Rate Blood Pressure 138/62 134/63 157/76 H Pulse Oximetry Oxygen Delivery 11/05/22 17:40 11/05/22 18:14 11/05/22 18:00 Temperature 97.9 F Pulse Rate 107 H 89 88 Respiratory Rate 16 Blood Pressure 163/76 H 154/68 H 157/72 H Pulse Oximetry Oxygen Delivery 11/05/22 18:08 11/05/22 20:46 11/05/22 20:00 Temperature Pulse Rate 87 85 90 Respiratory Rate Blood Pressure 153/71 H Pulse Oximetry Oxygen Delivery 11/06/22 00:00 11/05/22 22:00 11/05/22 20:00 Temperature 97.3 F L Pulse Rate 78 85 Respiratory Rate 14 Blood Pressure 155/74 H Pulse Oximetry 100 Oxygen Delivery Room Air 11/06/22 04:00 11/06/22 06:00 11/06/22 09:07 Temperature 97.7 F Pulse Rate 77 75 75 Respiratory Rate 12 Blood Pressure 155/53 H Pulse Oximetry 96 Oxygen Delivery 11/06/22 08:00 Temperature Pulse Rate 73 Respiratory Rate Blood Pressure
--- NOTE | 2022-11-06 11:14 | PCPTNOTE ---
Attempted PT evaluation, pt in dialysis. Will follow.
[2022-11-06 11:21] LABS: Glucose Point of Care 131 mg/dl (65-105)
[2022-11-06] MEDS: VANCOMYCIN ORAL 125 MG/2.5 ML SYRUP PO ×2 (12:51→16:59)
[2022-11-06] MEDS: EPOETIN ALFA 10,000 UNITS/ML VIAL 10000 UNITS IV PUSH (13:19)
[2022-11-06 16:33] LABS: Glucose Point of Care 231 mg/dl (65-105)
[2022-11-06] MEDS: INSULIN ASPART (*BKC) 100 UNITS/ML SUB-Q (16:54)
[2022-11-06 17:37] LABS: Levetiracetam Keppra 50.3 mcg/mL (6.0-46.0)
[2022-11-06] MEDS: CHOLESTYRAMINE LIGHT 4 GM POWD.PACK PO (18:00)
[2022-11-06] MEDS: METOPROLOL TARTRATE 50 MG TAB PO (20:58)
[2022-11-06] MEDS: MIRTAZAPINE 30 MG TABLET PO (20:58)
[2022-11-06 23:27] LABS: Glucose Point of Care 92 mg/dl (65-105)
[2022-11-07] VITALS (14 sets, daily range): BP systolic 113–244; BP diastolic 50–90; PULSE 60–80; RESP 14–18; TEMP 35.9–36.6; O2SAT 98–100
[2022-11-07] MEDS: VANCOMYCIN ORAL 125 MG/2.5 ML SYRUP PO ×4 (00:23→17:01)
[2022-11-07] MEDS: hydrALAZINE HCL 20 MG/ML VIAL 10 MG IV PUSH (05:42)
--- NOTE | 2022-11-07 06:32 | PC.NURSE ---
elevated BP of 244/[address] Laws called, and ordered 10mg hydralazine one time IVP. Dose administered. BP rechecked manually after 35 minutes and is now 188/80. This RN called Dr. Laws back with updated pressure.
[2022-11-07 08:15] LABS: Glucose Point of Care 98 mg/dl (65-105)
[2022-11-07] MEDS: amLODIPine BESYLATE 5 MG TABLET PO (09:24)
[2022-11-07] MEDS: FERROUS SULFATE 325 MG TABLET DR PO (09:25)
[2022-11-07] MEDS: levETIRAcetam 500 MG TABLET PO ×2 (09:25→21:07)
[2022-11-07] MEDS: oxyBUTYnin CHLORIDE XL 5 MG TAB.ER.24 15 MG PO (09:25)
[2022-11-07] MEDS: busPIRone HCL 10 MG TABLET PO ×2 (09:25→17:01)
[2022-11-07] MEDS: SERTRALINE HCL 50 MG TABLET 100 MG PO (09:25)
[2022-11-07] MEDS: rOPINIRole HCL 0.5 MG TABLET PO ×2 (09:25→17:01)
[2022-11-07] MEDS: ATORVASTATIN 40 MG TABLET PO (09:25)
[2022-11-07] MEDS: LEVOTHYROXINE SODIUM 75 MCG TABLET PO (09:26)
[2022-11-07] MEDS: allopurinoL 300 MG TABLET PO (09:26)
[2022-11-07] MEDS: OMEGA 3 POLYUNSAT FATTY ACIDS 1 GM CAP PO (09:26)
[2022-11-07] MEDS: ASPIRIN 325 MG TABLET PO (09:26)
[2022-11-07] MEDS: buPROPion HCL XL (24 HR) 150 MG TABCR PO (09:26)
[2022-11-07] MEDS: METOPROLOL TARTRATE 50 MG TAB PO ×2 (09:26→21:06)
[2022-11-07] MEDS: PANTOPRAZOLE 40 MG TABLET PO (09:26)
--- NOTE | 2022-11-07 11:23 | P.PNNP_ITS ---
Progress Note: A&P Assessment and Plan (1) End stage renal disease: Code(s): N18.6 - End stage renal disease Status: Deleted Assessment and Plan: * HD tomorrow and continue T/T/s schedule tomorrow * follow electrolytes, volume status, and clearance (2) Altered mental status: Code(s): R41.82 - Altered mental status, unspecified Status: Acute Assessment and Plan: * improvement noted * etiology not clear * Neurology recommendations noted * CT and MRI of brain noted * carotid dopplers reviewed * uremia playing a role? -- s/p dialysis 2 days in row (Thursday and ) * follow mentation (3) Hypertension: Code(s): I10 - Essential (primary) hypertension Status: Chronic Assessment and Plan: * reasonable control at this time * resume home medications * follow trend of hemodynamics (4) Anemia: Code(s): D64.9 - Anemia, unspecified Status: Chronic Assessment and Plan: * due to ESRD * Epogen with dialysis * follow trend of H/H (5) Diabetes: Code(s): E11.9 - Type 2 diabetes mellitus without complications Status: Deleted Assessment and Plan: * follow accuchecks * glycemic control per basket mender Will continue to follow. Subjective Date/time seen: 11/07/22 11:23 Interval history: Follow-up for end stage renal disease on hemodialysis. Tolerated dialysis treatment yesterday without any issues or problems; seems to be in good spirits today; no apparent distress noted; no events overnight or earlier this morning. Exam Narrative: General: elderly female in NAD Heart: normal S1 and S2; no rub Lungs: clear anteriorly Abdomen: soft, nontender, nondistended, positive bowel sounds Extremities: no cyanosis or clubbing; trace edema Skin: warm and intact Objective Data Vital Signs Vital Signs: Vital Signs Temp Pulse Resp BP Pulse Ox O2 Del Method 11/07/22 10:50 97.1 F L 77 18 125/72 99 11/07/22 10:14 Room Air 11/07/22 08:00 Room Air 11/07/22 10:52 125/72 11/07/22 06:51 96.6 F L 73 14 205/81 H 98 11/07/22 06:14 188/80 H 11/07/22 05:29 67 244/90 H 11/06/22 23:50 98 Room Air 11/07/22 04:00 72 11/07/22 00:00 80 11/06/22 20:00 78 11/06/22 20:00 Room Air 11/06/22 22:00 97.1 F L 78 12 174/74 H 98 11/06/22 20:58 78 Intake/Output Intake/Output: Intake & Output 11/04/22 11/05/22 11/06/22 11/07/22 23:59 23:59 23:59 23:59 Intake Total 1000 1070 1020 440 Output Total 150 800 800 Balance 850 270 220 440 Meds/Results Medications: Active Medications Generic Name Dose Route Start Last Admin Trade Name Freq PRN Reason Stop Dose Admin Albuterol 2 puff 11/04/22 18:51 Albuterol Sulfate (*Sp) Aerosol 1 Puff INHALATION QID PRN shortness of breath or wheezing Allopurinol 300 mg 11/05/22 09:00 11/07/22 09:26 Allopurinol 300 Mg Tablet PO 300 mg DAILY SUKI Administration Amlodipine Besylate 5 mg 11/07/22 09:00 11/07/22 09:2
--- NOTE | 2022-11-07 11:23 | PM.PNNEP ---
Progress Note: A&P Assessment and Plan (1) End stage renal disease: Code(s): N18.6 - End stage renal disease Status: Deleted Assessment and Plan: HD tomorrow and continue T/T/s schedule tomorrow follow electrolytes, volume status, and clearance (2) Altered mental status: Code(s): R41.82 - Altered mental status, unspecified Status: Acute Assessment and Plan: improvement noted etiology not clear Neurology recommendations noted CT and MRI of brain noted carotid dopplers reviewed uremia playing a role? -- s/p dialysis 2 days in row (Thursday and ) follow mentation (3) Hypertension: Code(s): I10 - Essential (primary) hypertension Status: Chronic Assessment and Plan: reasonable control at this time resume home medications follow trend of hemodynamics (4) Anemia: Code(s): D64.9 - Anemia, unspecified Status: Chronic Assessment and Plan: due to ESRD Epogen with dialysis follow trend of H/H (5) Diabetes: Code(s): E11.9 - Type 2 diabetes mellitus without complications Status: Deleted Assessment and Plan: follow accuchecks glycemic control per dicer operator Will continue to follow. Subjective Date/time seen: 11/07/22 11:23 Interval history: Follow-up for end stage renal disease on hemodialysis. Tolerated dialysis treatment yesterday without any issues or problems; seems to be in good spirits today; no apparent distress noted; no events overnight or earlier this morning. Exam Narrative: General: elderly female in NAD Heart: normal S1 and S2; no rub Lungs: clear anteriorly Abdomen: soft, nontender, nondistended, positive bowel sounds Extremities: no cyanosis or clubbing; trace edema Skin: warm and intact Objective Data Vital Signs Vital Signs: Vital Signs Temp Pulse Resp BP Pulse Ox O2 Del Method 11/07/22 10:50 97.1 F L 77 18 125/72 99 11/07/22 10:14 Room Air 11/07/22 08:00 Room Air 11/07/22 10:52 125/72 11/07/22 06:51 96.6 F L 73 14 205/81 H 98 11/07/22 06:14 188/80 H 11/07/22 05:29 67 244/90 H 11/06/22 23:50 98 Room Air 11/07/22 04:00 72 11/07/22 00:00 80 11/06/22 20:00 78 11/06/22 20:00 Room Air 11/06/22 22:00 97.1 F L 78 12 174/74 H 98 11/06/22 20:58 78 Intake/Output Intake/Output: Intake & Output 11/04/22 11/05/22 11/06/22 11/07/22 23:59 23:59 23:59 23:59 Intake Total 1000 1070 1020 440 Output Total 150 800 800 Balance 850 270 220 440 Meds/Results Medications: Active Medications Generic Name Dose Route Start Last Admin Trade Name Freq PRN Reason Stop Dose Admin Albuterol 2 puff 11/04/22 18:51 Albuterol Sulfate (*Sp) Aerosol 1 Puff INHALATION QID PRN shortness of breath or wheezing Allopurinol 300 mg 11/05/22 09:00 11/07/22 09:26 Allopurinol 300 Mg Tablet PO 300 mg DAILY SUKI Administration Amlodipine Besylate 5 mg 11/07/22 09:00 11/07/22 09:24 Amlodipine Besylate 5 Mg Tablet PO 5 mg QAM SUKI Administration Aspirin 325 mg 11/05/22 09:00 11/07/22 09:26 Aspirin 325 Mg Tablet PO 325 mg DAILY SUKI Administration Atorvastatin Calcium 40 mg 11/05/22 09:00 11/07/22 09:25 Atorvastatin 40 Mg Tablet PO 40 mg DAILY SUKI Administration Bupropion HCl 150 mg 11/05/22 09:00 11/07/22 09:26 Bupropion Hcl Xl (24 Hr) 150 Mg Tabcr PO 150 mg QAM SUKI Administration Buspirone HCl 10 mg 11/05/22 09:00 11/07/22 17:01 Buspirone Hcl 10 Mg Tablet PO 10 mg BID SUKI Administration Cholestyramine Resin 4 gm 11/06/22 17:42 11/06/22 18:00 Cholestyramine Light 4 Gm Powd.Pack PO 4 gm BID@1000,1800 PRN Administration Diarrhea Dextrose 12.5 gm 11/04/22 18:48 Dextrose 50% 25 Gm/50 Ml Syringe IV PUSH PRN PRN Hypoglycemia Protocol Ferrous Sulfate
--- NOTE | 2022-11-07 11:31 | PM.DS ---
DS: Admitting Diagnosis Discharge Date November 07, 2022 Admitting Diagnosis Delirium, end-stage renal disease, C diff DS: Discharge Diagnosis Discharge Diagnosis (1) Altered mental status: Code(s): R41.82 - Altered mental status, unspecified Status: Acute (2) End-stage renal disease on hemodialysis: Code(s): N18.6 - End stage renal disease; Z99.2 - Dependence on renal dialysis Status: Acute (3) BEKA (obstructive sleep apnea): Code(s): G47.33 - Obstructive sleep apnea (adult) (pediatric) Status: Chronic (4) Diet-controlled diabetes mellitus: Code(s): E11.9 - Type 2 diabetes mellitus without complications Status: Acute (5) Posterior reversible encephalopathy syndrome (PRES): Code(s): I67.83 - Posterior reversible encephalopathy syndrome Status: Acute (6) Seizure: Code(s): R56.9 - Unspecified convulsions Status: Acute (7) Hypertension: Code(s): I10 - Essential (primary) hypertension Status: Chronic Plan Awaiting placement DS: Summary Hospital Course Hospital Course: Patient is a 77-year-old female who came in with delirium is likely secondary to end-stage renal disease. She was also found have some diarrhea and C diff was checked on admission and was positive. She will be sent home on oral vancomycin. Otherwise after a couple dialysis treatments she is back to her cognitive baseline. She can be discharged Time Spent with Patient Time attestation: Total time spent providing and/or coordinating discharge services: Exam Narrative: AF 98.3 117/52 92 27 95% ra Gen - well-nourished, well-developed female in no acute respiratory distress who is nontoxic-appearing lying semi recumbent in bed left side down HEENT - normocephalic. Atraumatic. Pupils equal round and reactive. Extraocular motions intact. mild nystagmus with left lateral gaze. Nares patent. Oropharynx was poorly visualized. Dry mucous membranes. Tongue was midline. Palate jackson symmetrically. No facial asymmetry. Neck - neck was supple. No dominant adenopathy, thyromegaly or masses. 2+ carotid upstrokes without bruits. Chest - lungs are clear to auscultation bilaterally. No wheezes or crackles. Breast exam was deferred. CV - heart was regular rate and rhythm. S1-S2. 2/6 systolic murmur USB Abd - abdomen was soft. Nontender. Nondistended. Positive bowel sounds. No organomegaly or masses. Ext - no clubbing, cyanosis or edema. 2+ DP pulses bilaterally. Thrill/bruit left arm fistula. Left 2nd toe amputation Neuro - patient is alert and oriented x2 (month, year). Strength is 5/5 in both upper and lower extremities on limited exam. She refused to lay supine. Cranial nerves 2-12 are intact. Speech is clear. Refused other testing. Psych - pleasant. confused. Skin - warm and dry. DS: Data Data Completed and Pending Labs on day of discharge: Labs from last 24 hours 11/07/22 11/06/22 11/06/22 08:12 22:28 16:28 POC Capillary Glucose 98 92 231 H Levetiracetam 11/04/22 15:23 POC Capillary Glucose Levetiracetam 50.3 H Preliminary micro results at discharge 11/04/22 13:47 Blood Culture - Preliminary Blood 11/04/22 12:36 Blood Culture - Preliminary Blood Discharge Plan Discharge Attending physician on discharge: Kirby Matute Consulting providers: Fernando Fleming; Marcelle Howard; Deepthi Maier Discharging Clinician: Kirby Matute Patient Disposition: Home Health Service Activity: as tolerated Diet: as tolerated Discharge Instructions: Per Care Coordination, patient to discharge and resume services with [facility] ) for PT/OT and retirement services. Please fax discharge instructions and medication sheets to [phone]. Patient Instructions: Antibiotic Form Stand Alone Forms: General Discharge Information Follow-up/Referrals: Marcelle Howard MD [Physicia
--- NOTE | 2022-11-07 11:48 | WPDNEUROPN ---
Progress Note: A&P Assessment and Plan (1) Altered mental status: Code(s): R41.82 - Altered mental status, unspecified Status: Acute (2) History of stroke: Code(s): Z86.73 - Personal history of transient ischemic attack (TIA), and cerebral infarction without residual deficits Status: Acute (3) Left arm weakness: Code(s): R29.898 - Other symptoms and signs involving the musculoskeletal system Status: Acute (4) CKD (chronic kidney disease) requiring chronic dialysis: Code(s): N18.6 - End stage renal disease; Z99.2 - Dependence on renal dialysis Status: Acute (5) Diet-controlled diabetes mellitus: Code(s): E11.9 - Type 2 diabetes mellitus without complications Status: Acute (6) Hypertension: Code(s): I10 - Essential (primary) hypertension Status: Chronic Plan Ms. Maher is a 77 year old female with a history of Crohn's disease, PRES, seizures, HTN, CHF, ESRD, and diabetes who was admitted for confusion and generalized weakness. Found to be C. diff positive during admission. MRI brain showed old infarcts in the R [id number] region. Patient denies ever experiencing any focal left sided weakness or numbness. She does have evidence of LUE weakness on exam which correlates with the location of the stroke. - MRA brain and carotid doppler studies - Surface echo with bubble study - Check LDL, A1c - Continue aspirin - LDL goal <70 -- may need to adjust statin dose Subjective Date/time seen: 11/07/22 11:48 Interval history: Ms. Maher is a 77 year old female with a history of Crohn's disease, PRES, seizures, HTN, CHF, ESRD, and diabetes who was admitted for confusion and generalized weakness. She was ultimately found to be C. diff positive and has been treated for that. During the admission she had a CT head which showed old right temporal parietal occipital infarct, which is new from the CT head that was done in July 2022. MRI brain confirmed the stroke as well. Patient denies any left numbness or weakness that she is aware of. She is now back to her baseline mental status. No vessel imaging has been completed yet, or any other stroke work-up. She is already on a daily aspirin and Lipitor 40mg daily. She gets dialysis for ESRD. She is on Keppra 500mg BID for history of seizures. Review of Systems Constitutional: Constitutional: Reports weakness Eyes: Eyes: Reports no additional eye complaints ENT: Reports system reviewed and no additional complaints, except as documented Cardiovascular: Cardiovascular: Reports no additional cardiovascular complaints Respiratory: Respiratory: Reports no additional respiratory complaints Gastrointestinal: Gastrointestinal: Reports diarrhea Genitourinary: Genitourinary: Reports no additional female genitourinary complaints Musculoskeletal: Musculoskeletal: Reports arthralgias Integumentary/Breasts: Skin/Breast: Reports system reviewed and no additional complaints, except as docu Neurologic: Reports as per HPI Psychiatric: Psychiatric: Reports depression Exam Const: General: comfortable and no acute distress HENMT: Mouth: Yes moist mucous membranes Eyes: Pupils: Equal, round and reactive pupils present EOM: EOMs intact bilaterally Resp: Effort & Inspection: normal respiratory effort Skin: General skin exam: normal color Neuro: Other: Awake, alert, PERRL, EOMI, face is symmetric, facial sensation is symmetric, tongue/palate is midline. Strength in RUE and RLE is 5/5. LUE strength is 4/5, LLE strength 5/5. Sensation is intact in the extremities and symmetrical. FNF is normal bilaterally. Comprehension and fluency is intact. Gait deferred. Extrem: General: normal to inspection Psych: Mental Status: mental status grossly normal Affect: normal affect Objective Data Vital Signs Vital Signs: Vital Signs - 24 hr 11/06/22 12:00 11/06/22 12:00 11/06/22 12:20 Temperature Pulse Rate
[2022-11-07 11:55] LABS: Glucose Point of Care 211 mg/dl (65-105)
[2022-11-07] MEDS: INSULIN ASPART (*BKC) 100 UNITS/ML SUB-Q (12:25)
[2022-11-07 12:42] LABS: LDL Cholesterol Direct 66 mg/dL
[2022-11-07 16:47] LABS: Glucose Point of Care 82 mg/dl (65-105)
[2022-11-07 20:38] LABS: Glucose Point of Care 177 mg/dl (65-105)
[2022-11-07] MEDS: MIRTAZAPINE 30 MG TABLET PO (21:07)
[2022-11-08] VITALS (21 sets, daily range): BP systolic 118–196; BP diastolic 53–108; PULSE 64–74; RESP 14–18; TEMP 36–36.6; O2SAT 96–99
--- NOTE | 2022-11-08 | ECHO_ITS ---
Patient Info Name: Layla Maher Age: 77 years : 1945 Gender: Female Ht: 66 in Wt: 157 lbs BSA: 1.83 m2 HR: 68 bpm BP: 125 / 72 mmHg Technical Quality: Fair Exam Date: 11/08/2022 12:52 PM Exam Location: [facility] Pulmonary Exam Room: [facility] Patient Status: Inpatient Admit Date: 11/05/2022 Staff Ordering Physician: Camelia Silvestre MD Music Supervisor: Yen Valencia RDCS Attending Provider: Valentín Robins MD Exam Type: CA echo doppler w bubble study Study Info Indications - stroke work up Complete two-dimensional, color flow and Doppler transthoracic echocardiogram is performed. Contrast/Agitated Saline Contrast/Ag. Saline: Agitated Saline Amount: 20.00 ml Existing IV Access: Yes IV Access Condition: patent with no signs of infiltration Summary 1. Complete two-dimensional, color flow and Doppler transthoracic echocardiogram is performed. 2. Left ventricular systolic function is hyperdynamic, estimated at >70%. 3. There is mildly increased left ventricular wall thickness. 4. The left ventricular diastolic function is grade I diastolic dysfunction. 5. Patent foramen ovale visualized by agitated saline imaging. 6. There is mild mitral valve regurgitation. 7. There is mild mitral valve calcification. 8. There is mild tricuspid valve regurgitation. 9. Mild pulmonary hypertension, estimated pulmonary arterial systolic pressure is 37 mmHg. Left Ventricle Left ventricular chamber dimension is normal. Left ventricular systolic function is hyperdynamic, estimated at >70%. There is mildly increased left ventricular wall thickness. Left ventricular septal wall motion is normal. The left ventricular diastolic function is grade I diastolic dysfunction. Right Ventricle Right ventricular chamber dimension is normal. Right ventricular systolic function is normal. Left Atria Left atrial chamber dimension is normal. Right Atria Right atrial chamber dimension is normal. Atrial Septum Patent foramen ovale visualized by agitated saline imaging. Aortic Valve The aortic valve is trileaflet. There is mild aortic valve sclerosis. There is no aortic valve stenosis. There is no aortic valve regurgitation. Pulmonic Valve The pulmonic valve is normal. There is no pulmonic valve stenosis. There is no pulmonic regurgitation. Mitral Valve The mitral valve has normal leaflets. There is no mitral valve stenosis. There is mild mitral valve regurgitation. There is mild mitral valve calcification. Tricuspid Valve The tricuspid valve leaflets are normal. There is no significant tricuspid valve stenosis. There is mild tricuspid valve regurgitation. Mild pulmonary hypertension, estimated pulmonary arterial systolic pressure is 37 mmHg. Pericardium/Pleural The pericardium appears normal. There is no pericardial effusion. Inferior Vena Cava Normal inferior vena cava with >50% collapse upon inspiration consistent with Empty right atrial pressure, 5 mmHg. Aorta The aortic root size at the sinus of Valsalva is normal. The prox ascending aorta size is normal. Left Ventricular Outflow Tract Name Value Normal LVOT 2D LVOT Diameter 2.0 cm LVOT Doppler
[2022-11-08] MEDS: VANCOMYCIN ORAL 125 MG/2.5 ML SYRUP PO ×4 (05:20→18:24)
[2022-11-08 07:28] LABS: Basophils Percent Auto 0.5 % (0.2-1.2); Eosinophils Absolute Auto 0.6 K/mm3 (0-0.3); Eosinophils Percent Auto 8.1 % (0-4.4); Hematocrit 30.6 % (37.0-47.0); Hemoglobin 9.4 g/dL (12.0-15.0); Immature Granulocyte Absolute 0.09 K/mm3 (0.00-0.031); Immature Granulocyte Percent A 1.2 % (0-0.5); Lymphocytes Absolute Auto 1.86 K/mm3 (0.9-3.2); Lymphocytes Percent Auto 23.9 % (18.3-44.2); Mean Corpuscular HGB Conc 30.7 g/dl (32-36); Mean Corpuscular Hemoglobin 29.4 pg (26-34); Mean Corpuscular Volume 95.6 fl (80-100); Mean Platelet Volume 8.9 fl (7.4-10.4); Monocytes Absolute Auto 0.9 K/mm3 (0.1-0.6); Monocytes Percent Auto 11.6 % (2.6-8.5); Neutrophils Absolute Auto 4.3 K/mm3 (1.3-6.7); Neutrophils Percent Auto 54.7 % (45.5-73.1); Platelet Count Result 302 k/mm3 (150-375); Red Cell Distribution Width 14.4 % (11.5-14.5); White Blood Count 7.8 K/mm3 (4.5-10.0)
[2022-11-08 07:34] LABS: Alanine Aminotransferase 17 U/L (6-35); Albumin Level 3.1 g/dL (3.5-5.1); Alkaline Phosphatase 83 U/L (38-126); Anion Gap 5 mmol/L (8-16); Aspartate Amino Transferase 23 U/L (14-36); Bilirubin,Total 0.3 mg/dL (0.2-1.3); Blood Urea Nitrogen 43 mg/dL (7-17); Calcium 8.4 mg/dL (8.4-10.2); Carbon Dioxide 26 mmol/L (22-30); Chloride 107 mmol/L (98-107); Estimated CRCL calculation 8 ml/min; Estimated Glomerular Filt Rate 8; Glucose 85 mg/dL (65-110); Potassium 4.2 mmol/L (3.4-5.0); Sodium 138 mmol/L (137-145)
[2022-11-08 07:49] LABS: Glucose Point of Care 83 mg/dl (65-105)
[2022-11-08] MEDS: amLODIPine BESYLATE 5 MG TABLET PO (08:51)
[2022-11-08] MEDS: METOPROLOL TARTRATE 50 MG TAB PO (08:51)
[2022-11-08] MEDS: levETIRAcetam 500 MG TABLET PO (08:51)
[2022-11-08] MEDS: busPIRone HCL 10 MG TABLET PO ×2 (08:52→18:24)
[2022-11-08] MEDS: SERTRALINE HCL 50 MG TABLET 100 MG PO (08:52)
[2022-11-08] MEDS: LEVOTHYROXINE SODIUM 75 MCG TABLET PO (08:52)
[2022-11-08] MEDS: allopurinoL 300 MG TABLET PO (08:52)
[2022-11-08] MEDS: OMEGA 3 POLYUNSAT FATTY ACIDS 1 GM CAP PO (08:52)
[2022-11-08] MEDS: PANTOPRAZOLE 40 MG TABLET PO (08:52)
[2022-11-08] MEDS: oxyBUTYnin CHLORIDE XL 5 MG TAB.ER.24 15 MG PO (08:52)
[2022-11-08] MEDS: ATORVASTATIN 40 MG TABLET PO (08:52)
[2022-11-08] MEDS: FERROUS SULFATE 325 MG TABLET DR PO (08:52)
[2022-11-08] MEDS: rOPINIRole HCL 0.5 MG TABLET PO ×2 (08:52→18:24)
[2022-11-08] MEDS: ASPIRIN 325 MG TABLET PO (08:52)
[2022-11-08] MEDS: buPROPion HCL XL (24 HR) 150 MG TABCR PO (09:05)
[2022-11-08 11:54] LABS: Glucose Point of Care 128 mg/dl (65-105)
--- NOTE | 2022-11-08 14:41 | P.PNNP_ITS ---
Progress Note: A&P Assessment and Plan (1) End stage renal disease: Code(s): N18.6 - End stage renal disease Status: Deleted Assessment and Plan: * HD today and continue T/T/s schedule tomorrow * follow electrolytes, volume status, and clearance (2) Altered mental status: Code(s): R41.82 - Altered mental status, unspecified Status: Acute Assessment and Plan: * improvement noted if not back to baseline * etiology not clear * Neurology recommendations noted * testing reviewed * uremia playing a role? * continue supportive therapy (3) Hypertension: Code(s): I10 - Essential (primary) hypertension Status: Chronic Assessment and Plan: * reasonable control at this time * resume home medications * follow trend of hemodynamics (4) Anemia: Code(s): D64.9 - Anemia, unspecified Status: Chronic Assessment and Plan: * due to ESRD * Epogen with dialysis * follow trend of H/H (5) Diabetes: Code(s): E11.9 - Type 2 diabetes mellitus without complications Status: Deleted Assessment and Plan: * follow accuchecks * glycemic control per agitator operator Will continue to follow. Subjective Date/time seen: 11/08/22 14:41 Interval history: Follow-up for end stage renal disease on hemodialysis. Tolerating hemodialysis treatment at the time of my visit (seen on HD at 2:35PM); she appears in good spirits and in no apparent distress; no issues/events overnight or earlier this morning. Exam Narrative: General: elderly female in NAD Heart: normal S1 and S2; no rub Lungs: clear anteriorly Abdomen: soft, nontender, nondistended, positive bowel sounds Extremities: no cyanosis or clubbing; trace edema Skin: no rash or nodules Objective Data Vital Signs Vital Signs: Vital Signs Temp Pulse Resp BP Pulse Ox O2 Del Method 11/08/22 14:00 97.4 F L 71 16 151/70 H 96 11/08/22 14:21 64 162/70 H 11/08/22 08:00 Room Air 11/08/22 08:00 65 11/08/22 08:48 99 Room Air 11/08/22 08:51 68 11/08/22 06:00 96.9 F L 67 14 155/53 H 99 11/08/22 04:00 72 11/08/22 00:00 74 11/07/22 20:00 60 16 100 Room Air 11/07/22 20:00 60 11/07/22 21:58 97.7 F 60 16 113/64 100 11/07/22 21:06 60 11/07/22 16:00 63 Intake/Output Intake/Output: Intake & Output 11/05/22 11/06/22 11/07/22 11/08/22 23:59 23:59 23:59 23:59 Intake Total 1070 1020 680 990 Output Total 800 800 675 Balance 270 220 680 315 Meds/Results Medications: Active Medications Generic Name Dose Route Start Last Admin Trade Name Freq PRN Reason Stop Dose Admin Albuterol 2 puff 11/04/22 18:51 Albuterol Sulfate (*Sp) Aerosol 1 Puff INHALATION QID PRN shortness of breath or wheezing Allopurinol 300 mg 11/05/22 09:00 11/08/22 08:52 Allopurinol 300 Mg Tablet PO 300 mg DAILY SUKI Administration Amlodipine Besylate 5 mg 11/07/22 09:00 11/08/22 08:51 Amlodipine Besylate 5 Mg Tablet PO 5 mg
--- NOTE | 2022-11-08 14:41 | PM.PNNEP ---
Progress Note: A&P Assessment and Plan (1) End stage renal disease: Code(s): N18.6 - End stage renal disease Status: Deleted Assessment and Plan: HD today and continue T/T/s schedule tomorrow follow electrolytes, volume status, and clearance (2) Altered mental status: Code(s): R41.82 - Altered mental status, unspecified Status: Acute Assessment and Plan: improvement noted if not back to baseline etiology not clear Neurology recommendations noted testing reviewed uremia playing a role? continue supportive therapy (3) Hypertension: Code(s): I10 - Essential (primary) hypertension Status: Chronic Assessment and Plan: reasonable control at this time resume home medications follow trend of hemodynamics (4) Anemia: Code(s): D64.9 - Anemia, unspecified Status: Chronic Assessment and Plan: due to ESRD Epogen with dialysis follow trend of H/H (5) Diabetes: Code(s): E11.9 - Type 2 diabetes mellitus without complications Status: Deleted Assessment and Plan: follow accuchecks glycemic control per lpn rn hospice Will continue to follow. Subjective Date/time seen: 11/08/22 14:41 Interval history: Follow-up for end stage renal disease on hemodialysis. Tolerating hemodialysis treatment at the time of my visit (seen on HD at 2:35PM); she appears in good spirits and in no apparent distress; no issues/events overnight or earlier this morning. Exam Narrative: General: elderly female in NAD Heart: normal S1 and S2; no rub Lungs: clear anteriorly Abdomen: soft, nontender, nondistended, positive bowel sounds Extremities: no cyanosis or clubbing; trace edema Skin: no rash or nodules Objective Data Vital Signs Vital Signs: Vital Signs Temp Pulse Resp BP Pulse Ox O2 Del Method 11/08/22 14:00 97.4 F L 71 16 151/70 H 96 11/08/22 14:21 64 162/70 H 11/08/22 08:00 Room Air 11/08/22 08:00 65 11/08/22 08:48 99 Room Air 11/08/22 08:51 68 11/08/22 06:00 96.9 F L 67 14 155/53 H 99 11/08/22 04:00 72 11/08/22 00:00 74 11/07/22 20:00 60 16 100 Room Air 11/07/22 20:00 60 08/25/23 21:58 97.7 F 60 16 113/64 100 11/07/22 21:06 60 11/07/22 16:00 63 Intake/Output Intake/Output: Intake & Output 11/05/22 11/06/22 11/07/22 11/08/22 23:59 23:59 23:59 23:59 Intake Total 1070 1020 680 990 Output Total 800 800 675 Balance 270 220 680 315 Meds/Results Medications: Active Medications Generic Name Dose Route Start Last Admin Trade Name Freq PRN Reason Stop Dose Admin Albuterol 2 puff 11/04/22 18:51 Albuterol Sulfate (*Sp) Aerosol 1 Puff INHALATION QID PRN shortness of breath or wheezing Allopurinol 300 mg 11/05/22 09:00 11/08/22 08:52 Allopurinol 300 Mg Tablet PO 300 mg DAILY SUKI Administration Amlodipine Besylate 5 mg 11/07/22 09:00 11/08/22 08:51 Amlodipine Besylate 5 Mg Tablet PO 5 mg QAM SUKI Administration Aspirin 325 mg 11/05/22 09:00 11/08/22 08:52 Aspirin 325 Mg Tablet PO 325 mg DAILY SUKI Administration Atorvastatin Calcium 40 mg 11/05/22 09:00 11/08/22 08:52 Atorvastatin 40 Mg Tablet PO 40 mg DAILY SUKI Administration Bupropion HCl 150 mg 11/05/22 09:00 11/08/22 09:05 Bupropion Hcl Xl (24 Hr) 150 Mg Tabcr PO 150 mg QAM SUKI Administration Buspirone HCl 10 mg 11/05/22 09:00 11/08/22 08:52 Buspirone Hcl 10 Mg Tablet PO 10 mg BID SUKI Administration Cholestyramine Resin 4 gm 11/06/22 17:42 11/06/22 18:00 Cholestyramine Light 4 Gm Powd.Pack PO 4 gm BID@1000,1800 PRN Administration Diarrhea Dextrose 12.5 gm 11/04/22 18:48 Dextrose 50% 25 Gm/50 Ml Syringe IV PUSH PRN PRN Hypoglycemia Protocol Epoetin Kelechi 10,000 units 11/08/22 20:00 Epoetin Kelechi 10,000 Unit
[2022-11-08] MEDS: EPOETIN ALFA 10,000 UNITS/ML VIAL 10000 UNITS IV PUSH (16:29)
== END 2022-11-08 18:35 | disposition home health service (06) | DRG 291 ==
LOC: ANHED 15:59 → ANH3MEDSUR 17:10
PROVIDERS: Emergency Medicine; Internal Medicine Nephrology; Nurse Practitioner; Student in an Organized Health Care Education/Training Program; Admitting Provider Internal Medicine; Emergency Provider Physician Assistant; PCP Family Medicine Adolescent Medicine; Visit Provider Chiropractor
DX: I13.2 Hypertensive heart and chronic kidney disease with heart failure and with stage 5 chronic kidney disease, or end stage renal disease (principal); N18.6 End stage renal disease; A04.72 Enterocolitis due to Clostridium difficile, not specified as recurrent; K50.90 Crohn's disease, unspecified, without complications; I50.9 Heart failure, unspecified; Z99.2 Dependence on renal dialysis; I25.10 Atherosclerotic heart disease of native coronary artery without angina pectoris; D63.8 Anemia in other chronic diseases classified elsewhere; E11.51 Type 2 diabetes mellitus with diabetic peripheral angiopathy without gangrene; E11.22 Type 2 diabetes mellitus with diabetic chronic kidney disease; E03.9 Hypothyroidism, unspecified; K21.9 Gastro-esophageal reflux disease without esophagitis; N25.0 Renal osteodystrophy; R56.9 Unspecified convulsions; G25.81 Restless legs syndrome; G47.33 Obstructive sleep apnea (adult) (pediatric); F32.9 Major depressive disorder, single episode, unspecified; Z85.528 Personal history of other malignant neoplasm of kidney; Z95.5 Presence of coronary angioplasty implant and graft; Z79.82 Long term (current) use of aspirin; Z86.73 Personal history of transient ischemic attack (TIA), and cerebral infarction without residual deficits; Z89.422 Acquired absence of other left toe(s); Z89.421 Acquired absence of other right toe(s); Z90.5 Acquired absence of kidney; Z87.891 Personal history of nicotine dependence
CPT/HCPCS: 36415; 36600; 70450; 70544; 70551; 71045; 80053; 80069; 80177; 80307; 81001; 82140; 82533; 82550; 82805; 82948; 83036; 83605; 83721; 83735; 84100; 84443; 84484; 85025; 85610; 85730; 86140; 86706; 87040; 87086; 87340; 87493; 93005; 93306; 93880; 96361; 96374; 96375; 97161; 97165; 99285; A9270; G0257; J0360; J1815; J2060; J7030; Q4081

== ENCOUNTER 2022-11-27 17:05 | Emergency (ER) | payer MEDICARE, SELFPAY ==
--- NOTE | ~2022-11-27 | XR_ITS ---
EXAMINATION: XR foot LT min 3V DATE: 11/27/2022 21:26 INDICATION: Left foot pain TECHNIQUE: Dorsoplantar, lateral, and oblique views of the left foot were obtained. COMPARISON: 11/14/2022 FINDINGS: Soft tissue swelling of the great toe persists but has improved. There are changes of amput ation of the second middle and distal phalanges. The bones are osteopenic which limits the sensitivit y for fracture however none is seen. IMPRESSION: 1. No acute osseous abnormality. Reviewed, dictated and finalized at location F.
--- NOTE | ~2022-11-27 | XR_ITS ---
EXAMINATION: XR foot RT min 3V DATE: 11/27/2022 21:26 INDICATION: Right foot pain TECHNIQUE: Dorsoplantar, lateral, and oblique views of the right foot were obtained. COMPARISON: 09/16/2003 FINDINGS: The bones are osteopenic which limits the sensitivity for fracture however none is seen. Th ere is moderate osteoarthritis of multiple interphalangeal joints. There are changes of prior interna l fixation of a fifth metatarsal fracture. Posterior and plantar calcaneal enthesophytes are noted. IMPRESSION: 1. No acute osseous abnormality. Reviewed, dictated and finalized at location F.
[2022-11-27 17:11] VITALS: BP 101/65; PULSE 81; RESP 16; TEMP 37; O2SAT 97
--- NOTE | 2022-11-27 21:33 | ED.GENADULT ---
HPI - General Adult General Chief complaint: Unspecified Stated complaint: foot infection Time Seen by Provider: 11/27/22 20:59 History of Present Illness HPI narrative: Patient is 77-year-old female who presents the emergency department with chief complaint of wounds to the feet. Patient reports she was recently in the hospital for a stroke and also had diarrhea and was treated with oral vancomycin the patient states that she has been seen by Dr. Moran in the orthopedic clinic patient reports that she had a callus on both of her feet the right foot has had with a callus has pulled up. Patient denies purulent drainage denies fever Related Data Home Medications Medication Instructions Recorded Confirmed aspirin 325 mg tablet 325 mg PO DAILY 12/26/21 11/14/22 metoprolol tartrate 50 mg tablet 50 mg PO BID 12/26/21 11/14/22 ergocalciferol (vitamin D2) 1,250 50,000 mcg PO WEEKLY 06/01/22 11/14/22 mcg (50,000 unit) capsule amlodipine 5 mg tablet 10 mg PO DAILY 07/21/22 11/14/22 atorvastatin 40 mg tablet 40 mg PO DAILY 07/21/22 11/14/22 ferrous sulfate 325 mg (65 mg 325 mg PO DAILY 07/21/22 11/14/22 iron) tablet glimepiride 1 mg tablet 1 mg PO BID 07/21/22 11/14/22 omega-3 fatty acids 1 cap PO DAILY 07/21/22 11/14/22 dronabinol 2.5 mg capsule 2.5 mg PO BID 10/03/22 11/14/22 lisinopril 40 mg tablet 40 mg PO DAILY 11/04/22 11/14/22 Allergies Allergy/AdvReac Type Severity Reaction Status Date / Time cortisone Allergy Intermediate Dyspnea / Verified 11/27/22 17:14 SOB Penicillins Allergy Intermediate Dyspnea / Verified 11/27/22 17:14 SOB ceftriaxone [From Rocephin] Allergy Difficulty Verified 11/27/22 17:14 Breathing Review of Systems Review of Systems: A 10 system review of systems was completed on the patient and is negative except for what is stated in the HPI. Nursing and ancillary documentation was reviewed. [facility] Past Medical History Medical History Acute respiratory failure Anemia of chronic disease Callus of foot Coronary artery disease History of stent x3. COVID-19 virus infection Crohn's disease Diet-controlled diabetes mellitus A1c was 7.0 in 10/2018 and 4.8 in 01/2020. End-stage renal disease on hemodialysis Erythropoietin deficiency anemia Gastroesophageal reflux disease History of kidney stones Hypothyroidism Normal colonoscopy (08/2019) Obstructive sleep apnea No longer using CPAP after 40 lb weight loss. Pericardial effusion (01/2020) Small pericardial effusion on echocardiogram, felt to be related to uremia. Peripheral autonomic neuropathy due to diabetes mellitus Peripheral vascular disease Peritonitis (01/2020) Pneumonia Renal cell carcinoma (2004) Renal osteodystrophy Restless leg syndrome Shingles (1991) Surgical History Surgical History Amputation toe Left 2nd toe. History of appendectomy History of bilateral carpal tunnel release History of cardiac catheterization With stent x3. History of cholecystectomy History of colonoscopy History of complete ray amputation of second toe of left foot History of complete ray amputation of second toe of right foot History of cystoscopy With ureteral stents for kidney stones. History of foot surgery Repair of left foot fracture with pinning. History of hysterectomy (1976) With cystocele and rectocele repairs. History of partial nephrectomy (2004) Left partial nephrectomy for kidney cancer. History of tonsillectomy Family History Family History Father Renal cell carcinoma Acute myocardial infarction Cerebrovascular accident Colon polyp Heart disease Hypertension Mother Lung cancer Acute myocardial infarction Cerebrovascular accident Depression Heart disease Hypertension Son Asthma Social History Social Hi
[2022-11-27 21:42] VITALS: BP 143/62; PULSE 83; RESP 16; O2SAT 100
--- NOTE | 2022-11-27 21:45 | PC.NURSE ---
pt c/o wounds to bilateral foot. pt with open wound to r foot. states it opened up yesterday and has been draining clear/pink fluid. states she is concerned that it is infected.
[2022-11-27 22:00] LABS: Basophils Percent Auto 0.4 % (0.2-1.2); Eosinophils Absolute Auto 1.1 K/mm3 (0-0.3); Eosinophils Percent Auto 11.7 % (0-4.4); Hematocrit 34.5 % (37.0-47.0); Hemoglobin 11.1 g/dL (12.0-15.0); Immature Granulocyte Absolute 0.11 K/mm3 (0.00-0.031); Immature Granulocyte Percent A 1.1 % (0-0.5); Lymphocytes Absolute Auto 2.11 K/mm3 (0.9-3.2); Mean Corpuscular HGB Conc 32.2 g/dl (32-36); Mean Corpuscular Hemoglobin 29.5 pg (26-34); Mean Corpuscular Volume 91.8 fl (80-100); Mean Platelet Volume 9.2 fl (7.4-10.4); Monocytes Absolute Auto 0.8 K/mm3 (0.1-0.6); Monocytes Percent Auto 8.8 % (2.6-8.5); Neutrophils Absolute Auto 5.4 K/mm3 (1.3-6.7); Platelet Count Result 292 k/mm3 (150-375); Red Blood Count 3.76 M/mm3 (4.2-5.4); Red Cell Distribution Width 13.6 % (11.5-14.5); White Blood Count 9.6 K/mm3 (4.5-10.0)
[2022-11-27 22:11] LABS: Partial Thromboplastin Time 29.4 SECONDS (22.3-36.8); Prothrombin Time 14.1 Seconds (11.1-14.7)
[2022-11-27 22:14] LABS: Alanine Aminotransferase 38 U/L (6-35); Albumin Level 3.9 g/dL (3.5-5.1); Alkaline Phosphatase 112 U/L (38-126); Anion Gap 9 mmol/L (8-16); Aspartate Amino Transferase 36 U/L (14-36); Bilirubin,Total 0.4 mg/dL (0.2-1.3); Blood Urea Nitrogen 21 mg/dL (7-17); Calcium 9.1 mg/dL (8.4-10.2); Carbon Dioxide 35 mmol/L (22-30); Chloride 92 mmol/L (98-107); Estimated CRCL calculation 12 ml/min; Estimated Glomerular Filt Rate 13; Glucose 138 mg/dL (65-110); Magnesium 2.1 mg/dL (1.6-2.3); Potassium 3.9 mmol/L (3.4-5.0); Sodium 136 mmol/L (137-145)
[2022-11-27 22:19] LABS: Lactic Acid Reflex 2.4 mmol/L (0.7-2.0)
[2022-11-27 22:24] LABS: Erythrocyte Sedimentation Rate 79 mm/hr (0-20)
[2022-11-27 23:08] LABS: Procalcitonin 0.4 ng/mL
[2022-11-27] MEDS: DOXYCYCLINE HYCLATE 100 MG TABLET PO (23:59)
[2022-11-28 00:10] VITALS: BP 107/68; PULSE 67; RESP 16; O2SAT 98
[2022-11-28 00:56] LABS: Reflex Lactic Acid Yes or No Add Lactic
== END 2022-11-28 00:10 | disposition home or self-care (01) ==
PROVIDERS: Emergency Provider Emergency Medicine; PCP Family Medicine Adolescent Medicine
DX: E11.621 Type 2 diabetes mellitus with foot ulcer (principal); L97.519 Non-pressure chronic ulcer of other part of right foot with unspecified severity; E11.22 Type 2 diabetes mellitus with diabetic chronic kidney disease; N18.6 End stage renal disease; D63.1 Anemia in chronic kidney disease; N25.0 Renal osteodystrophy; E11.43 Type 2 diabetes mellitus with diabetic autonomic (poly)neuropathy; E11.51 Type 2 diabetes mellitus with diabetic peripheral angiopathy without gangrene; I73.9 Peripheral vascular disease, unspecified; K50.90 Crohn's disease, unspecified, without complications; K21.9 Gastro-esophageal reflux disease without esophagitis; G47.33 Obstructive sleep apnea (adult) (pediatric); G25.81 Restless legs syndrome; Z99.2 Dependence on renal dialysis; Z66 Do not resuscitate; Z85.528 Personal history of other malignant neoplasm of kidney; Z86.73 Personal history of transient ischemic attack (TIA), and cerebral infarction without residual deficits; Z86.16 Personal history of COVID-19; Z87.01 Personal history of pneumonia (recurrent); Z87.442 Personal history of urinary calculi; Z87.891 Personal history of nicotine dependence; Z89.422 Acquired absence of other left toe(s); Z90.49 Acquired absence of other specified parts of digestive tract; Z89.421 Acquired absence of other right toe(s); Z90.710 Acquired absence of both cervix and uterus; Z90.5 Acquired absence of kidney; Z79.82 Long term (current) use of aspirin; Z79.84 Long term (current) use of oral hypoglycemic drugs
CPT/HCPCS: 11042; 36415; 73630; 80053; 83605; 83735; 84145; 85025; 85610; 85652; 85730; 99284; A9270

== ENCOUNTER 2022-12-21 22:50 | Inpatient (IN) | payer MEDICARE, SELFPAY ==
--- NOTE | ~2022-12-21 | XR_ITS ---
EXAMINATION: XR foot LT min 3V DATE: 12/22/2022 09:09 INDICATION: Left great toe wound. TECHNIQUE: 4 views of left foot were obtained. COMPARISON: Left foot radiographs 11/27/2022 FINDINGS: There is dorsiflexion of the metatarsophalangeal joints and flexion of the interphalangeal joints. There are erosions of tuft of first distal phalanx, consistent with osteomyelitis. There is m ild osteoarthritis of some of the midfoot joints and interphalangeal joints. There is amputation at l eft second proximal interphalangeal joint. IMPRESSION: 1. Erosions of tuft of first distal phalanx, consistent with osteomyelitis. Reviewed, dictated and finalized at location A.
--- NOTE | ~2022-12-21 | CT_ITS ---
EXAMINATION: CT brain wo con DATE: 12/21/2022 23:40 INDICATION: Head injury. TECHNIQUE: Computed tomography (CT) of the head was performed without intravenous contrast. The mA wa s adjusted according to patient size. Iterative reconstruction technique was employed. The dose-lengt h product was 756.67 mGy-cm. COMPARISON: Head CT 11/04/2022 FINDINGS: There is an old infarct in right temporal parietal occipital region. There is no intracrani al hemorrhage, acute infarction, or abnormal intracranial mass lesion. There is ex vacuo dilatation o f trigone and occipital horn of right lateral ventricle. Partially visualized is dental disease. Ther e is mucosal thickening in the paranasal sinuses. The mastoid air cells are normal. The orbits are no rmal. There is frontal scalp soft tissue swelling. IMPRESSION: 1. 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 Reviewed, dictated and finalized at location A.
--- NOTE | ~2022-12-21 | CT_ITS ---
EXAMINATION: CT facial & cervical spine wo DATE: 12/21/2022 23:39 INDICATION: Head injury. TECHNIQUE: Computed tomography (CT) of the maxillofacial region and cervical spine was performed with out intravenous contrast. Automated exposure control and iterative reconstruction technique were empl oyed. The dose-length product was 359.31 mGy-cm. COMPARISON: None FINDINGS: MAXILLOFACIAL CT: There is right frontal scalp soft tissue swelling. There is mild mucosal thickening in the paranasal sinuses. There are carious lesions of teeth 15, 28, and 29. CERVICAL SPINE CT: There is 7 degrees dextrocurvature of cervical spine. Vertebral body heights are normal. There is mil dly decreased disc height at C5-C6 and severely decreased disc height at C6-C7. The following disc le vels are specifically discussed: C2-C3: There is no uncovertebral joint osteoarthritis. There is moderate right and mild left facet barrington int osteoarthritis. There is mild left neural foraminal stenosis. There is mild central canal stenosi s. C3-C4: There is no uncovertebral joint osteoarthritis. There is no facet joint osteoarthritis. There is no neural foraminal stenosis. There is mild central canal stenosis. C4-C5: There is no uncovertebral joint osteoarthritis. There is no facet joint osteoarthritis. There is no neural foraminal stenosis. There is mild central canal stenosis. C5-C6: There is no uncovertebral joint osteoarthritis. There is mild bilateral facet joint osteoarthr itis. There is no neural foraminal stenosis. There is mild central canal stenosis. C6-C7: There is severe bilateral uncovertebral joint osteoarthritis. There is mild bilateral facet barrington int osteoarthritis. There is mild bilateral neural foraminal stenosis. There is mild central canal st enosis. C7-T1: There is no uncovertebral joint osteoarthritis. There is mild bilateral facet joint osteoarthr itis. There is no neural foraminal stenosis. There is no central canal stenosis. IMPRESSION: 1. No fracture. 2. Dental disease. 3. Severe cervical spondylosis. Reviewed, dictated and finalized at location A.
[2022-12-21 22:55] VITALS: BP 94/48; PULSE 83; RESP 16; TEMP 36.7; O2SAT 96
[2022-12-21 23:52] VITALS: BP 103/56; PULSE 75; RESP 13; O2SAT 97
--- NOTE | 2022-12-22 00:07 | ED.FALL ---
HPI - Fall General Chief Complaint: Fall Stated Complaint: Fall yesterday, bruise to forehead Time Seen by Provider: 12/21/22 23:14 History of Present Illness HPI Narrative: 77-year-old female presented to the emergency room for evaluation of altered mental status. Patient does have dementia and has had intermittent episodes of increased confusion. Patient did have a ground-level fall last night and was found lying on the floor this morning. Patient initially declined transport to the emergency department patient called her son seymour and was confused about where she was located. Upon arrival to the emergency department patient is confused but denies any complaints. Related Data Home Medications Medication Instructions Recorded Confirmed aspirin 325 mg tablet 325 mg PO DAILY 12/26/21 12/10/22 metoprolol tartrate 50 mg tablet 50 mg PO BID 12/26/21 12/10/22 amlodipine 5 mg tablet 10 mg PO DAILY 07/21/22 12/10/22 ferrous sulfate 325 mg (65 mg 325 mg PO DAILY 07/21/22 12/10/22 iron) tablet glimepiride 1 mg tablet 1 mg PO BID 07/21/22 12/10/22 omega-3 fatty acids 1 cap PO DAILY 07/21/22 12/10/22 dronabinol 2.5 mg capsule 2.5 mg PO BID 10/03/22 12/10/22 lisinopril 40 mg tablet 40 mg PO DAILY 11/04/22 12/10/22 Allergies Allergy/AdvReac Type Severity Reaction Status Date / Time cortisone Allergy Intermediate Dyspnea / Verified 12/10/22 15:03 SOB Penicillins Allergy Intermediate Dyspnea / Verified 12/10/22 15:03 SOB ceftriaxone [From Rocephin] Allergy Difficulty Verified 12/10/22 15:03 Breathing Review of Systems Review of Systems: All systems reviewed & are unremarkable except as noted in HPI and below PMFSH Past Medical History Medical History Acute respiratory failure Anemia of chronic disease Callus of foot Coronary artery disease History of stent x3. COVID-19 virus infection Crohn's disease Diet-controlled diabetes mellitus A1c was 7.0 in 10/2018 and 4.8 in 01/2020. End-stage renal disease on hemodialysis Erythropoietin deficiency anemia Gastroesophageal reflux disease History of kidney stones Hypothyroidism Normal colonoscopy (08/2019) Obstructive sleep apnea No longer using CPAP after 40 lb weight loss. Pericardial effusion (01/2020) Small pericardial effusion on echocardiogram, felt to be related to uremia. Peripheral autonomic neuropathy due to diabetes mellitus Peripheral vascular disease Peritonitis (01/2020) Pneumonia Renal cell carcinoma (2004) Renal osteodystrophy Restless leg syndrome Shingles (1991) Wound of right foot Surgical History Surgical History Amputation toe Left 2nd toe. History of appendectomy History of bilateral carpal tunnel release History of cardiac catheterization With stent x3. History of cholecystectomy History of colonoscopy History of complete ray amputation of second toe of left foot History of complete ray amputation of second toe of right foot History of cystoscopy With ureteral stents for kidney stones. History of foot surgery Repair of left foot fracture with pinning. History of hysterectomy (1976) With cystocele and rectocele repairs. History of partial nephrectomy (2004) Left partial nephrectomy for kidney cancer. History of tonsillectomy Family History Family History Father Renal cell carcinoma Acute myocardial infarction Cerebrovascular accident Colon polyp Heart disease Hypertension Mother Lung cancer Acute myocardial infarction Cerebrovascular accident Depression Heart disease Hypertension Son Asthma Social History Social History Social History: Surrogate medical decision maker: Dong Maher, son. Code status: DNR Smoking packs per day: 1 Smoking cigarettes per day: 20.0 Years smoked: 20 Smoking pac
[2022-12-22 00:31] LABS: Basophils Percent Auto 0.3 % (0.2-1.2); Eosinophils Absolute Auto 0.3 K/mm3 (0-0.3); Eosinophils Percent Auto 2.2 % (0-4.4); Hemoglobin 10.7 g/dL (12.0-15.0); Immature Granulocyte Absolute 0.13 K/mm3 (0.00-0.031); Lymphocytes Absolute Auto 1.39 K/mm3 (0.9-3.2); Lymphocytes Percent Auto 11.1 % (18.3-44.2); Mean Corpuscular HGB Conc 31.5 g/dl (32-36); Mean Corpuscular Hemoglobin 29.2 pg (26-34); Mean Corpuscular Volume 92.6 fl (80-100); Monocytes Percent Auto 7.7 % (2.6-8.5); Neutrophils Absolute Auto 9.7 K/mm3 (1.3-6.7); Neutrophils Percent Auto 77.7 % (45.5-73.1); Platelet Count Result 320 k/mm3 (150-375); Red Blood Count 3.67 M/mm3 (4.2-5.4); Red Cell Distribution Width 14.1 % (11.5-14.5); White Blood Count 12.5 K/mm3 (4.5-10.0)
[2022-12-22 00:42] LABS: Alanine Aminotransferase 15 U/L (6-35); Albumin Level 3.8 g/dL (3.5-5.1); Alkaline Phosphatase 86 U/L (38-126); Anion Gap 10 mmol/L (8-16); Aspartate Amino Transferase 25 U/L (14-36); Bilirubin,Total 0.7 mg/dL (0.2-1.3); Blood Urea Nitrogen 42 mg/dL (7-17); Calcium 9.1 mg/dL (8.4-10.2); Carbon Dioxide 33 mmol/L (22-30); Chloride 91 mmol/L (98-107); Estimated CRCL calculation 6 ml/min; Estimated Glomerular Filt Rate 7; Glucose 139 mg/dL (65-110); Potassium 4.3 mmol/L (3.4-5.0); Sodium 134 mmol/L (137-145)
[2022-12-22 00:45] LABS: Creatine Kinase 33 U/L (30-135)
[2022-12-22 01:07] LABS: Influenza A QL RT-PCR Negative (Negative); Influenza B QL RT-PCR Negative (Negative); RSV RNA, RT-PCR Negative (Negative); SARS-CoV-2 RNA PCR Negative (Negative)
[2022-12-22 01:32] LABS: Appearance Urine Clear (Clear); Bilirubin Urine Negative (Negative); Blood Urine Negative (Negative); Color Urine Yellow (Yellow); Glucose Urine UA Trace mg/dL (Negative); Ketones Urine Negative (Negative); Leukocyte Esterase Ur 1+ LEU/UL (Negative); Nitrate Urine Negative (Negative); Protein Urine 3+ mg/dL (Negative); Urobilinogen Urine 0.2 mg/dL (<2.0); pH Urine 8.5 (5.0-9.0)
[2022-12-22 01:47] LABS: Bacteria Urine None Seen /hpf; Need Manual Microscopic Reviewed; RBC Urine 0-2 /hpf (0-2); Squamous Epithelial Cell Urine Few /hpf (Few); WBC Urine 51-100 /hpf
[2022-12-22 01:58] LABS: Add Urine Microscopic? YES
--- NOTE | 2022-12-22 05:29 | PM.IMHP ---
H&P: HPI History of Present Illness Date/Time: 12/22/22 05:29 Chief Complaint: Patient was brought to the ER for evaluation with altered mental status Narrative: She is a pleasantly confused 77 years old white female who has dementia and chronic medical issues. She had a ground level fall last night and was found lying on the floor this morning. She called her son last night and was confused confused about her location and whereabouts. She was brought to the ER for evaluation, workup was done which showed UTI. She also has bilateral foot ulcers for which she saw orthopedics few days ago and was recommended amputation of toes. She is being admitted and started on IV antibiotics and IV hydration. Review of Systems Review of Systems: Unable to be obtained. Patient is pleasantly confused ROS unobtainable: Yes unobtainable due to medical condition and unobtainable due to mental status PMFSH Past Medical History Medical History Acute respiratory failure Anemia of chronic disease Callus of foot Coronary artery disease History of stent x3. COVID-19 virus infection Crohn's disease Diet-controlled diabetes mellitus A1c was 7.0 in 10/2018 and 4.8 in 01/2020. End-stage renal disease on hemodialysis Erythropoietin deficiency anemia Gastroesophageal reflux disease History of kidney stones Hypothyroidism Normal colonoscopy (08/2019) Obstructive sleep apnea No longer using CPAP after 40 lb weight loss. Pericardial effusion (01/2020) Small pericardial effusion on echocardiogram, felt to be related to uremia. Peripheral autonomic neuropathy due to diabetes mellitus Peripheral vascular disease Peritonitis (01/2020) Pneumonia Renal cell carcinoma (2004) Renal osteodystrophy Restless leg syndrome Shingles (1991) Wound of right foot Surgical History Surgical History Amputation toe Left 2nd toe. History of appendectomy History of bilateral carpal tunnel release History of cardiac catheterization With stent x3. History of cholecystectomy History of colonoscopy History of complete ray amputation of second toe of left foot History of complete ray amputation of second toe of right foot History of cystoscopy With ureteral stents for kidney stones. History of foot surgery Repair of left foot fracture with pinning. History of hysterectomy (1976) With cystocele and rectocele repairs. History of partial nephrectomy (2004) Left partial nephrectomy for kidney cancer. History of tonsillectomy Family History Family History Father Renal cell carcinoma Acute myocardial infarction Cerebrovascular accident Colon polyp Heart disease Hypertension Mother Lung cancer Acute myocardial infarction Cerebrovascular accident Depression Heart disease Hypertension Son Asthma Social History Social History Social History: Surrogate medical decision maker: Dong Maher, son. Code status: DNR Smoking packs per day: 1 Smoking cigarettes per day: 20.0 Years smoked: 20 Smoking pack-years: 20.00 Smoking status: Former smoker Tobacco type: cigarettes Second hand tobacco smoke exposure: Yes Alcohol intake: never Substance use: never Substance use type: does not use Lack of Transportation: No Lack of Food: Never True Current Housing: I Have Housing Concerned About Future Housing: No Difficulty Paying Gas/Electric Bills: No Difficulty Paying for Meds: No Currently Unemployed: No Education: Don't Know Difficulty w/ Childcare or Family Care: No Living arrangements: alone Additional living arrangements comments: , lives in [place]. 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 Spiritual care concerns: N
--- NOTE | 2022-12-22 08:23 | PC.NURSE ---
This patient, Layla Maher, was admitted to 3 [facility] Room 324-01 on 12/22/22 @ 0340. Patient/family oriented to hospital policies and general routines including ID bracelet, bed and alarms, visiting hours, pain management, procedures, bathroom and other care routines, personal items, smoking policy, room service/diet, and visiting hours. Information on how to activate the Rapid Response Team has been discussed. Patient/Family are encouraged to report perceived risks to care and to ask questions if they do not understand what they are told or what they should do.
[2022-12-22 08:40] VITALS: BMI 25.1
[2022-12-22 10:12] VITALS: O2SAT 92
--- NOTE | 2022-12-22 10:45 | PM.CNNEP ---
Assessment and Plan Assessment and plan (1) End stage renal disease: Code(s): N18.6 - End stage renal disease Status: Chronic Assessment and Plan: HD tomorrow and continue T/T/s outpatient dialysis schedule follow electrolytes, volume status, and clearance (2) Altered mental status: Code(s): R41.82 - Altered mental status, unspecified Status: Acute Assessment and Plan: suspicion falls on acute UTI clinically better at this time follow mentation (3) Acute UTI: Code(s): N39.0 - Urinary tract infection, site not specified Status: Acute Assessment and Plan: suggested by admission UA follow-on urine culture on antibiotics (4) Hypertension: Code(s): I10 - Essential (primary) hypertension Status: Chronic Assessment and Plan: reasonable control at this time resume home medications follow trend of hemodynamics (5) Anemia: Code(s): D64.9 - Anemia, unspecified Status: Chronic Assessment and Plan: due to ESRD Epogen with dialysis follow trend of H/H I will continue follow patient with you while she remains hospitalized to make further recommendations during hospital course. Thank you for allowing me to participate in the care of this patient. History of Present Illness Reason for Consult Consult date: 12/22/22 Reason for consult: end stage renal disease Chief Complaint Chief complaint: UTI, AMS, head injury, dementia History of Present Illness Narrative: The patient is a 77-year-old female with a past medical history as outlined below who presented to [facility] Emergency room via EMS for further evaluation of altered mental status. The patient apparently had a ground level fall the night before admission and she was subsequently found on the floor the next morning. She declined transport to the emergency room at that time as she did not feel any injury was sustained. However, she called her son later that evening and she seemed to be confused as to her overall situation including her whereabouts. Given his change in her mentation, EMS was called and she was subsequently transported to the emergency room for further assessment. Workup and evaluation emergency room demonstrated the patient to be hemodynamically stable but there did seem to be clear evidence of acute confusion. Subsequent imaging studies including a head CT did not demonstrate any acute intracranial pathology or any other type of injuries sustained from the previous fall. Routine blood work demonstrated labs consistent with her known history of end-stage renal disease without any critical electrolyte abnormalities. Her urinalysis was highly suggestive of a urinary tract infection. Given her acute confusion in conjunction with the findings consistent with a urinary tract infection, she was admitted the hospital for gentle IV fluids as well as IV antibiotic therapy and hopeful improvement in her overall mentation. Since her admission, her mentation seems to be doing somewhat better. At the time my visit, she room immediately recognized who I was and inquired if I had set up dialysis tomorrow here at the hospital. Renal consultation was requested due to her end-stage renal disease. The patient normally dialyzes on a Thursday, , Thursday dialysis schedule at [facility] under the care of Dr. Jamshid Joe. From a dialysis perspective, she has been doing reasonably well and has been compliant with her treatments. She has relative stability in her electrolytes, volume status, clearance have been noted by monthly labs. Her last outpatient dialysis treatment was on Thursday (12/20/22) and is due for dialysis tomorrow. Currently, her mention seems to be doing significantly better. Review of Systems Review of Systems: As per HPI. [facility] Past Medical History Medical History (Reviewed 12/22/22 @ 12:
--- NOTE | 2022-12-22 11:46 | PM.CNOR ---
Assessment and Plan Assessment and plan (1) Osteomyelitis of toe of left foot: Code(s): M86.9 - Osteomyelitis, unspecified <FERN Lopez - Last Filed: 12/22/22 12:57> Status: Acute <FERN Lopez - Last Filed: 12/22/22 12:57> Assessment and Plan: History exam and radiographs reviewed with the patient. Radiographs the left foot reveal erosions of tuft of first distal phalanx, consistent with osteomyelitis. Condition, nature, etiology and course of natural history discussed. Conservative and operative treatment options reviewed as well as the risks and benefits of both. The patients questions were answered. The patient desires operative treatment. Discussed Debridement of the left hallux vs. amputation by Dr. Moran. Risks of surgery including but not limited to neurovascular damage, wound complications, blood clot, pulmonary embolus, stroke, myocardial infarction, anesthetic risks up to and including were reviewed. Continued pain and possible dysfunction were explained. No guarantees were offered. The patient understands and wishes to proceed. Plan: Left Hallux debridement vs amputation pending extent of osteomyelitis by Dr. Moran In the interim, daily wound care per [facility] wound nurse team. WBAT. Post op shoe. Elevate. Pain Control. Obtain consent. <FERN Lopez - Last Filed: 12/22/22 12:57> Assessment and Plan: Discussed assessment, labs and radiographs with attending physician and customs consultant surgeon, Dr. Moran who agrees with current plan as indicated. <FERN Lopez - Last Filed: 12/22/22 12:57> Discussed assessment, labs and radiographs with attending physician and customs consultant surgeon, Dr. Moran who agrees with current plan as indicated. patient chart, exam, consultation reviewed. Previous toe amputation. New ulcer which is now failing to heal with exposed bone and radiographs demonstrating osteomyelitis. Reviewed with patient and family. Deteriorating medical condition overall. At risk for further infection. Recommend debridement versus amputation. <Simeon Moran MD - Last Filed: 12/22/22 14:29> History of Present Illness HPI Consult date: 12/22/22 <FERN Lopez - Last Filed: 12/22/22 12:57> 12/22/22 <Simeon Moran MD - Last Filed: 12/22/22 14:29> Chief complaint: UTI, AMS, head injury, dementia <FERN Lopez - Last Filed: 12/22/22 12:57> Narrative: 77-year-old female well [facility] for bilateral foot wounds he presented to the emergency room with confusion after a ground level fall. Per the patient and medical record as well as her son, she has been confused about her location whereabouts over the weekend. A workup in the emergency room revealed a UTI. Patient was admitted for UTI with IV antibiotics and IV hydration. Patient was previously seen in the wound clinic on Thursday at which point she was not exhibiting current symptoms of confusion. The wound on her left foot at that time was stable however there was concern for need for debridement in the future. Radiographs obtained during this hospitalization reveal osteomyelitis of the tuft of the left hallux. Orthopedic consult requested for further surgical workup. <FERN Lopez - Last Filed: 12/22/22 12:57> Review of Systems Review of Systems: All systems reviewed & are unremarkable except as noted in HPI and below <FERN Lopez - Last Filed: 12/22/22 12:57> [facility] Past Medical History Medical History: Medical History Acute respiratory failure Anemia of chronic disease Callus of foot Coronary artery disease History of stent x3. COVID-19 virus infection Crohn's disease Diet-controlled diabetes mellitus A1c was 7.0 in 10/2018 and 4.8 in 01/2020. End-stage renal disease on hemodialysis Erythropoietin deficiency anemia Gastroesophageal reflux disease
[2022-12-22] MEDS: levETIRAcetam 500 MG TABLET PO (13:05)
[2022-12-22] MEDS: SILVERGEL (ELTA) 45 ML 1 APPLIC TOPICAL (13:05)
[2022-12-22] MEDS: METOPROLOL TARTRATE 50 MG TAB PO ×2 (13:05→20:13)
[2022-12-22 14:00] VITALS: BP 92/45; PULSE 81; RESP 20; TEMP 36.7; O2SAT 99
[2022-12-22 14:09] VITALS: BMI 25.1
[2022-12-22] MEDS: rOPINIRole HCL 0.5 MG TABLET PO (17:05)
[2022-12-22] MEDS: busPIRone HCL 10 MG TABLET PO (17:05)
[2022-12-22 20:00] VITALS: BP 123/50; PULSE 77; RESP 18; TEMP 37.2; O2SAT 97
[2022-12-22 20:13] VITALS: PULSE 77
[2022-12-22] MEDS: HEPARIN SODIUM 5,000 UNITS/ML VIAL 5000 UNITS SUB-Q (20:13)
[2022-12-22] MEDS: MIRTAZAPINE 30 MG TABLET PO (20:13)
[2022-12-23] VITALS (31 sets, daily range): BP systolic 80–152; BP diastolic 41–94; PULSE 60–81; RESP 14–21; TEMP 36.4–37.4; O2SAT 94–99
[2022-12-23 06:31] LABS: Basophils Percent Auto 0.3 % (0.2-1.2); Eosinophils Absolute Auto 0.6 K/mm3 (0-0.3); Eosinophils Percent Auto 4.3 % (0-4.4); Hematocrit 30.7 % (37.0-47.0); Hemoglobin 9.6 g/dL (12.0-15.0); Immature Granulocyte Absolute 0.11 K/mm3 (0.00-0.031); Immature Granulocyte Percent A 0.9 % (0-0.5); Lymphocytes Absolute Auto 2.23 K/mm3 (0.9-3.2); Lymphocytes Percent Auto 17.4 % (18.3-44.2); Mean Corpuscular HGB Conc 31.3 g/dl (32-36); Mean Corpuscular Hemoglobin 28.9 pg (26-34); Mean Corpuscular Volume 92.5 fl (80-100); Mean Platelet Volume 9.1 fl (7.4-10.4); Monocytes Absolute Auto 0.9 K/mm3 (0.1-0.6); Monocytes Percent Auto 6.8 % (2.6-8.5); Neutrophils Percent Auto 70.3 % (45.5-73.1); Platelet Count Result 316 k/mm3 (150-375); Red Blood Count 3.32 M/mm3 (4.2-5.4); Red Cell Distribution Width 13.6 % (11.5-14.5); White Blood Count 12.8 K/mm3 (4.5-10.0)
[2022-12-23 06:40] LABS: Lactic Acid Reflex 0.8 mmol/L (0.7-2.0)
[2022-12-23 06:47] LABS: Anion Gap 12 mmol/L (8-16); Blood Urea Nitrogen 56 mg/dL (7-17); Calcium 8.7 mg/dL (8.4-10.2); Carbon Dioxide 29 mmol/L (22-30); Chloride 91 mmol/L (98-107); Estimated CRCL calculation 4 ml/min; Estimated Glomerular Filt Rate 5; Glucose 89 mg/dL (65-110); Phosphorus 6.9 mg/dL (2.5-4.5); Potassium 4.3 mmol/L (3.4-5.0); Sodium 132 mmol/L (137-145)
[2022-12-23 07:26] LABS: Hepatitis B Surface Antigen Negative (Negative)
[2022-12-23 07:47] LABS: Hepatitis B Surface Anti Res Positive
[2022-12-23] MEDS: METOPROLOL TARTRATE 50 MG TAB PO ×2 (09:10→20:18)
[2022-12-23] MEDS: oxyBUTYnin CHLORIDE XL 5 MG TAB.ER.24 15 MG PO (09:11)
[2022-12-23] MEDS: busPIRone HCL 10 MG TABLET PO ×2 (09:12→17:11)
[2022-12-23] MEDS: PANTOPRAZOLE 40 MG TABLET PO (09:12)
[2022-12-23] MEDS: rOPINIRole HCL 0.5 MG TABLET PO ×2 (09:12→17:11)
[2022-12-23] MEDS: buPROPion HCL XL (24 HR) 150 MG TABCR PO (09:12)
[2022-12-23] MEDS: ATORVASTATIN 40 MG TABLET PO (09:12)
[2022-12-23] MEDS: SILVERGEL (ELTA) 45 ML 1 APPLIC TOPICAL (09:13)
--- NOTE | 2022-12-23 09:35 | PCOTNOTE ---
Attempted to see Patient prior to dialysis this A.M. Patient declined to participate, turning head away from therapist. Therapisr attempted again, Patient had been taken to dialysis, out od the room.
--- NOTE | 2022-12-23 10:01 | PCPTNOTE ---
The patient treatment was not able to be completed due to patient out of room for dialysis. Will plan to continue treatment per plan of care.
--- NOTE | 2022-12-23 10:35 | PM.PNNEP ---
Progress Note: A&P Assessment and Plan (1) End stage renal disease: Code(s): N18.6 - End stage renal disease Status: Chronic Assessment and Plan: HD today and continue T/T/s outpatient dialysis schedule follow electrolytes, volume status, and clearance (2) Altered mental status: Code(s): R41.82 - Altered mental status, unspecified Status: Acute Assessment and Plan: suspicion falls on acute UTI clinically better at this time (but a significant component of anxiety noted) follow mentation (3) Acute UTI: Code(s): N39.0 - Urinary tract infection, site not specified Status: Acute Assessment and Plan: suggested by admission UA follow-on urine culture on antibiotics (4) Hypertension: Code(s): I10 - Essential (primary) hypertension Status: Chronic Assessment and Plan: reasonable control at this time if not on the lower side follow trend of hemodynamics (5) Anemia: Code(s): D64.9 - Anemia, unspecified Status: Chronic Assessment and Plan: due to ESRD Epogen with dialysis follow trend of H/H Will continue to follow. Subjective Date/time seen: 12/23/22 10:35 Interval history: Follow-up for end stage renal disease on hemodialysis. Tolerating hemodialysis treatment at the time of my visit (seen on HD at 10:25AM); BP on the low side at start of treatment so getting saline bolus as well as IV albumin; very anxious when seen and worried about procedure/surgery later today. Exam Narrative: General: elderly female in NAD Heart: normal S1 and S2; no rub Lungs: clear anteriorly Abdomen: soft, nontender, nondistended, positive bowel sounds Extremities: no cyanosis or clubbing; no edema Skin: warm and dry Objective Data Vital Signs Vital Signs: Vital Signs Temp Pulse Resp BP Pulse Ox O2 Del Method 12/23/22 09:10 76 12/23/22 06:17 98.1 F 76 18 130/56 L 98 12/22/22 20:00 Room Air 12/22/22 20:00 98.9 F 77 18 123/50 L 97 12/22/22 20:13 77 12/22/22 14:00 98.0 F 81 20 92/45 L 99 Intake/Output Intake/Output: Intake & Output 12/20/22 12/21/22 12/22/22 12/23/22 23:59 23:59 23:59 23:59 Intake Total 120 0 Balance 120 0 Meds/Results Medications: Active Medications Generic Name Dose Route Start Last Admin Trade Name Paul PRN Reason Stop Dose Admin Acetaminophen 650 mg 12/22/22 05:53 Acetaminophen 325 Mg Tablet PO Q4H PRN Mild Pain (1-3) or Fever Al Hydrox/Mg Hydrox/Simethicone 30 ml 12/22/22 05:53 Mag Hydrox/Al Hydrox/Simeth 30 Ml Udc PO QID PRN Dyspepsia Amlodipine Besylate 5 mg 12/23/22 09:00 12/23/22 09:09 Amlodipine Besylate 5 Mg Tablet PO Not Given DAILY SUKI Atorvastatin Calcium 40 mg 12/23/22 09:00 12/23/22 09:12 Atorvastatin 40 Mg Tablet PO 40 mg DAILY SUKI Administration Bupropion HCl 150 mg 12/23/22 09:00 12/23/22 09:12 Bupropion Hcl Xl (24 Hr) 150 Mg Tabcr PO 150 mg QAM SUKI Administration Buspirone HCl 10 mg 12/22/22 17:00 12/23/22 09:12 Buspirone Hcl 10 Mg Tablet PO 10 mg BID SUKI Administration Epoetin Kelechi-epbx 10,000 units 12/23/22 20:00 Epoetin Kelechi-Epbx 10,000 Units/Ml Vial IV PUSH 12/23/22 20:01 ONCE ONE Ergocalciferol 50,000 units 12/29/22 09:00 Ergocalciferol 50,000 Units Capsule PO WEEKLY [facility] Heparin Sodium (Porcine) 5,000 units 12/22/22 09:00 12/23/22 11:02 Heparin Sodium 5,000 Units/Ml Vial SUB-Q Not Given Q12HR SUKI Levofloxacin/Dextrose 500 mg in 100 mls @ 100 mls/hr 12/24/22 06:00 Levaquin 500 Mg/D5w 100 Ml IVPB Q48H SUKI Albumin Human 50 mls @ 999 mls/hr 12/23/22 06:21 Albutein IVPB 01/22/23 06:20 Q10M PRN HYPOTENSION Levetiracetam 500 mg 12/22/22 11:00 12/23/22 11:04 Levetiracetam 500 Mg Tablet PO 500 mg Q12H SUKI Administration Metoprolol Tartr
[2022-12-23] MEDS: levETIRAcetam 500 MG TABLET PO (11:04)
--- NOTE | 2022-12-23 11:04 | PM.IMPN ---
Progress Note: A&P Assessment and Plan (1) Acute UTI: Code(s): N39.0 - Urinary tract infection, site not specified Status: Acute Assessment and Plan: Continue Levaquin. (2) Head injury: Code(s): S09.90XA - Unspecified injury of head, initial encounter Status: Acute Assessment and Plan: No focal neuro deficits. Monitor (3) AMS (altered mental status): Code(s): R41.82 - Altered mental status, unspecified Status: Acute Assessment and Plan: Improved. (4) Wound of right foot: Code(s): S91.301A - Unspecified open wound, right foot, initial encounter Status: Acute Assessment and Plan: Orthopedics consult, planned amputation. Continue antibiotics. (5) Peripheral autonomic neuropathy due to diabetes mellitus: Code(s): E11.43 - Type 2 diabetes mellitus with diabetic autonomic (poly)neuropathy Status: Acute (6) CKD (chronic kidney disease) requiring chronic dialysis: Code(s): N18.6 - End stage renal disease; Z99.2 - Dependence on renal dialysis Status: Acute Assessment and Plan: Nephrology following (7) Major depressive disorder, recurrent, moderate: Code(s): F33.1 - Major depressive disorder, recurrent, moderate Status: Acute Assessment and Plan: Chronic and stable (8) Hypothyroidism: Code(s): E03.9 - Hypothyroidism, unspecified Status: Acute Assessment and Plan: Chronic and stable (9) Diabetic foot ulcer: Code(s): E11.621 - Type 2 diabetes mellitus with foot ulcer; L97.509 - Non-pressure chronic ulcer of other part of unspecified foot with unspecified severity Status: Acute Assessment and Plan: Monitor blood sugars. (10) Anemia: Code(s): D64.9 - Anemia, unspecified Status: Chronic Assessment and Plan: Chronic, monitor. Transfuse as needed. (11) Hypertension: Code(s): I10 - Essential (primary) hypertension Status: Chronic Assessment and Plan: Blood pressure is stable, monitor. (12) Depression: Code(s): F32.A - Depression, unspecified Status: Acute (13) Renal osteodystrophy: Code(s): N25.0 - Renal osteodystrophy Status: Acute (14) Erythropoietin deficiency anemia: Code(s): D63.1 - Anemia in chronic kidney disease Status: Acute (15) End-stage renal disease on hemodialysis: Code(s): N18.6 - End stage renal disease; Z99.2 - Dependence on renal dialysis Status: Acute Assessment and Plan: Management per Nephrology (16) Restless leg syndrome: Code(s): G25.81 - Restless legs syndrome Status: Acute Assessment and Plan: Chronic and stable (17) Aortic atherosclerosis: Code(s): I70.0 - Atherosclerosis of aorta Status: Acute (18) Pure hypercholesterolemia, unspecified: Code(s): E78.00 - Pure hypercholesterolemia, unspecified Status: Acute Assessment and Plan: Chronic and stable (19) Peripheral vascular disease: Code(s): I73.9 - Peripheral vascular disease, unspecified Status: Chronic Subjective Date/time seen: 12/23/22 11:04 Interval history: No complaints Exam Narrative: PHYSICAL EXAMINATION: Vital signs: Please see the chart General physical exam: Unable to be obtained. Patient is pleasantly confused Head/eyes: Atraumatic, EOMI, PERRLA ENT: Moist mucous membranes, nasal passages clear Neck: Supple, full range of motion, trachea midline CVS: S1 + S2, regular rate and rhythm, no murmurs Respiratory: Bilaterally fair air entry in both lung randolph, mild B/L crackles, symmetric chest expansion, no distress Abdomen: Soft, non-tender, bowel sounds +ve, no organomegaly Extremities: No clubbing, no cyanosis, no edema, no calf tenderness Musculoskeletal: Moves all, adequate range of motion, no muscle spasms Skin: Warm, dry, no jaundice, no cyanosis, + bilateral foot ulcers Neurologic
--- NOTE | 2022-12-23 13:35 | PCOTNOTE ---
Patient being taken down to surgery from dialysis at this time. Patient not available for OT treatment session this date.
[2022-12-23] MEDS: SODIUM CHLORIDE 0.9% IV 500 ML 30 ML IV CONT (13:40)
[2022-12-23 13:53] LABS: Glucose Point of Care 100 mg/dl (65-105)
--- NOTE | 2022-12-23 13:53 | WPDANESEPPF ---
Anes - Initial Pre Proc Eval Procedure: Operation Date: 12/23/22 14:00 Proposed Procedures p Left Hallux Debridement Versus Left Hallux Amputation - Simeon Moran MD Date/Time: 12/23/22 13:53 Surgeon: Ashu Da Silva MD Pre Op Diagnosis: UTI, AMS, head injury, dementia Patient Data Age: 77 Gender: F Height: 1.6 m Weight: 64.4 kg Last Vital Signs Temp 97.9 F 12/23/22 09:35 Pulse 78 12/23/22 12:00 Resp 18 12/23/22 09:35 BP 121/58 L 12/23/22 12:03 Pulse Ox 98 12/23/22 06:17 O2 Del Method Room Air 12/22/22 20:00 Allergies Allergy/AdvReac Type Severity Reaction Status Date / Time cortisone Allergy Intermediate Dyspnea / Verified 12/10/22 15:03 SOB Penicillins Allergy Intermediate Dyspnea / Verified 12/10/22 15:03 SOB [facility]ri[facility]one [facility]] Allergy Difficulty Verified 12/10/22 15:03 Breathing Home Medications Medication Instructions Recorded Confirmed Type metoprolol tartrate 50 mg tablet 50 mg PO BID 12/26/21 12/22/22 History pantoprazole 40 mg tablet,delayed 40 mg PO QAM #90 tabs 06/26/22 12/22/22 Rx release amlodipine 5 mg tablet 5 mg PO DAILY 07/21/22 12/22/22 History levetiracetam 500 mg tablet 500 mg PO Q12H #60 tabs 10/29/22 12/22/22 Rx atorvastatin 40 mg tablet 40 mg PO DAILY #90 tabs 12/10/22 12/22/22 Rx bupropion HCl 150 mg 24 hr tablet, 150 mg PO QAM #30 tabs 12/10/22 12/22/22 Rx extended release buspirone 10 mg tablet 10 mg PO BID #60 tabs 12/10/22 12/22/22 Rx ergocalciferol (vitamin D2) 1,250 50,000 mcg PO WEEKLY #4 caps 12/10/22 12/22/22 Rx mcg (50,000 unit) capsule mirtazapine 30 mg tablet 30 mg PO QHS #30 tabs 12/10/22 12/22/22 Rx oxycodone 10 mg tablet 10 mg PO BID PRN Pain #60 tabs 12/10/22 12/22/22 Rx ropinirole 0.5 mg tablet 0.5 mg PO BID #60 tabs 12/10/22 12/22/22 Rx oxybutynin chloride 15 mg 15 mg PO DAILY 12/22/22 12/22/22 History tablet,extended release 24 hr Laboratory Tests 12/23/22 12/23/22 06:14 13:44 WBC 12.8 H K/mm3 (4.5-10.0) RBC 3.32 L M/mm3 (4.2-5.4) Hgb 9.6 L g/dL (12.0-15.0) Hct 30.7 L % (37.0-47.0) MCV 92.5 fl (80-100) MCH 28.9 pg (26-34) MCHC 31.3 L g/dl (32-36) RDW 13.6 % (11.5-14.5) Plt Count 316 k/mm3 (150-375) MPV 9.1 fl (7.4-10.4) Immature Gran % (Auto) 0.9 H % (0-0.5) Neut % (Auto) 70.3 % (45.5-73.1) Lymph % (Auto) 17.4 L % (18.3-44.2) Harnett % (Auto) 6.8 % (2.6-8.5) Eos % (Auto) 4.3 % (0-4.4) Baso % (Auto) 0.3 % (0.2-1.2) Lymph # (Auto) 2.23 K/mm3 (0.9-3.2) Harnett # (Auto) 0.9 H K/mm3 (0.1-0.6) Eos # (Auto) 0.6 H K/mm3 (0-0.3) Baso # (Auto) 0.0 K/mm3 (0.0-0.1) Abs Immat Gran (auto) 0.11 H K/mm3 (0.00-0.031) Absolute Neuts (auto) 9.0 H K/mm3 (1.3-6.7) Absolute Nucleated RBC 0.0 K/mm3 (0.0-0.012) Nucleated RBC % 0.0 % (0.0-0.2) Sodium 132 L mmol/L (137-145) Potassium 4.3 mmol/L (3.4-5.0) Chloride 91 L mmol/L (98-107) Carbon Dioxide 29 mmol/L (22-30) Anion Gap 12 mmol/L (8-16) BUN 56 H D mg/dL (7-17) Creatinine 8.40 H mg/dL (0.7-1.0) Estim Creat Clear Calc 4 ml/min Estimated GFR 5 L (59 - ) Glucose 89 mg/dL (65-110) POC Capillary Glucose Pending Lactic Acid 0.8 mmol/L (0.7-2.0) Calcium 8.7 mg/dL (8.4-10.2) Phosphorus 6.9 H mg/dL (2.5-4.5) Magnesium 2.0 mg/dL (1.6-2.3) Hep Bs Antigen Negative (Negative) Hep Bs Antibody Positive Patient hx anesthesia problems: none Family hx anesthesia problems: none Results Review: All pre-operative results and documents have been reviewed as part of the pre-operative evaluation. [facility] Past Medical History Medical History Acute respiratory fail
--- NOTE | 2022-12-23 14:20 | WPDHPUPDATE1 ---
History and Physical Update Update Date/Time: 12/23/22 14:20 History and Physical has been reviewed, including an updated exam of the patient. There are NO changes in the patient's condition. Risks, benefits, and alternatives have been discussed and questions answered. Patient agrees to proceed with procedure.
[2022-12-23] MEDS: ceFAZolin 500 MG in DEXTROSE 5% IN WATER 50 ML 100 MG IVPB (14:51)
--- NOTE | 2022-12-23 15:00 | SUR.OPER ---
a-v fistula in left upper arm/+ thrill strong in pre op
[2022-12-23] MEDS: BUPivacaine HCL 0.5% PF 30 ML VIAL INFILTRATE (15:08)
--- NOTE | 2022-12-23 15:28 | W.PM.PROC2 ---
Procedure Note - Detailed Date of Procedure 12/23/22 Pre-op Diagnosis UTI, AMS, head injury, dementia Post-op Diagnosis Other (Left hallux osteomyelitis) Procedure Performed Left hallux amputation Surgeon Simeon Moran MD Global Marketing Intern 1st assist Anesthesia MAC Indications 77 year neuropathy and peripheral vascular disease left hallux osteomyelitis ulcer. Ulceration nonhealing. Presents for treatment. Findings Osteomyelitis involving the distal phalanx of hallux. Description of Procedure Patient identified in the preoperative holding. Informed consent given. Operative extremity marked. Patient received intravenous antibiotics. Patient brought to the operating room where underwent IV sedation by anesthesia team. Positioned supine on operating room table. Time-out performed confirming the patient, site of the surgery and the plan. Right foot prepped and draped in usual sterile surgical fashion using Betadine prep solution. There was an ulcer over the distal aspect of the hallux which revealed full-thickness necrosis with exposed bone of the distal phalanx. No ability to heal the wound and no soft tissue coverage of the bone, amputation of the hallux was indicated. Fifteen blade knife used to make fishmouth shaped incision at the base of the hallux. Hemostasis controlled with electrocautery. Interphalangeal joint incised circumferentially with a 15 blade knife and hallux removed and passed off the table. Thorough irrigation done. Articular surface of the proximal phalanx head removed with a rongeur and smoothed. Wound thoroughly irrigated again. Wound closed with 2 0 Vicryl interrupted suture for the deep tissue, 3 O Monocryl interrupted suture for the subcutaneous tissue and 3 O nylon interrupted sutures for the skin. Sterile dressings applied. Patient awoke from anesthesia and taken to the recovery room in stable condition. All sponge needle and instrument counts correct at the end the case. Implants None Estimated Blood Loss 5 Tourniquet Time 0 Drains No Packing No Pathology Yes (Hallux specimen) Complications None Condition Stable Disposition PACU [facility] Billing Surgery - Charge Forward: Surgery Billing ([id number])
[2022-12-23 15:37] LABS: Glucose Point of Care 96 mg/dl (65-105)
--- NOTE | 2022-12-23 15:57 | PC.NURSE ---
Addendum entered by Traci Quispe RN 12/23/22 15:58: Left close to 1pm Original Note: To OR per [], IV [22 r wrist]. Report given to [Leila].
--- NOTE | 2022-12-23 16:13 | PC.NURSE ---
Returned from OR per [ ]. Report received from [Meg].
[2022-12-23] MEDS: MIRTAZAPINE 30 MG TABLET PO (20:18)
[2022-12-23] MEDS: HEPARIN SODIUM 5,000 UNITS/ML VIAL 5000 UNITS SUB-Q (20:19)
--- NOTE | 2022-12-23 23:32 | PC.NURSE ---
PT CONTINUES TO YELL OUT AND STATES SOMEONE IS COMING INTO THE ROOM TO GET HER . PT HAS BEEN REPEATEDLY REORIENTED. PT REFUSING MEDS AND VITALS.
[2022-12-24] VITALS (7 sets, daily range): BP systolic 122–136; BP diastolic 41–64; PULSE 50–73; RESP 16–20; TEMP 36.3–36.9; O2SAT 93–99
[2022-12-24] MEDS: levoFLOXacin 500 MG/D5W 100 ML 500 MG/100 ML BAG 100 MG IVPB (05:22)
[2022-12-24 07:24] LABS: Basophils Percent Auto 0.4 % (0.2-1.2); Eosinophils Absolute Auto 0.5 K/mm3 (0-0.3); Eosinophils Percent Auto 4.4 % (0-4.4); Hematocrit 28.5 % (37.0-47.0); Hemoglobin 8.8 g/dL (12.0-15.0); Immature Granulocyte Absolute 0.09 K/mm3 (0.00-0.031); Immature Granulocyte Percent A 0.8 % (0-0.5); Lymphocytes Absolute Auto 1.43 K/mm3 (0.9-3.2); Lymphocytes Percent Auto 13.4 % (18.3-44.2); Mean Corpuscular HGB Conc 30.9 g/dl (32-36); Mean Corpuscular Hemoglobin 29.1 pg (26-34); Mean Corpuscular Volume 94.4 fl (80-100); Mean Platelet Volume 9.1 fl (7.4-10.4); Monocytes Absolute Auto 0.8 K/mm3 (0.1-0.6); Monocytes Percent Auto 7.7 % (2.6-8.5); Neutrophils Absolute Auto 7.8 K/mm3 (1.3-6.7); Neutrophils Percent Auto 73.3 % (45.5-73.1); Platelet Count Result 282 k/mm3 (150-375); Red Blood Count 3.02 M/mm3 (4.2-5.4); Red Cell Distribution Width 13.9 % (11.5-14.5); White Blood Count 10.6 K/mm3 (4.5-10.0)
[2022-12-24 07:38] LABS: Anion Gap 9 mmol/L (8-16); Blood Urea Nitrogen 24 mg/dL (7-17); Calcium 8.6 mg/dL (8.4-10.2); Carbon Dioxide 25 mmol/L (22-30); Chloride 102 mmol/L (98-107); Estimated CRCL calculation 7 ml/min; Estimated Glomerular Filt Rate 9; Glucose 89 mg/dL (65-110); Potassium 3.8 mmol/L (3.4-5.0); Sodium 136 mmol/L (137-145)
--- NOTE | 2022-12-24 08:09 | PM.PNORT ---
Progress Note: A&P Assessment and Plan (1) Osteomyelitis of toe of left foot: Code(s): M86.9 - Osteomyelitis, unspecified Status: Acute Assessment and Plan: Postoperative day 1 left hallux amputation. Patient states pain much improved today. Anxiety improved. PT/OT with weight-bearing as tolerated. Postop shoe when up. Dressing change in a.m.. Continue IV antibiotics. Subjective Subjective Date/Time Seen: 12/24/22 08:09 Post Op day: 1 Principal diagnosis: Left hallux osteomyelitis Interval history: Patient resting comfortably. Awake and alert. Less confused today. Oriented to person, place and time. Complains of minimal pain left foot. Exam HENMT: Head: normal to inspection, normocephalic and atraumatic Eyes: Conjunctivae: conjunctivae normal Sclera: sclerae normal Resp: Effort & Inspection: normal respiratory effort and no audible wheezes Neuro: General: patient oriented x3 and No confusion Extrem: Other: left foot dressing clean and dry, intact. Negative Homans sign. Right foot toes with good capillary refill and negative Homans sign. Psych: Affect: normal affect Objective Data Vital Signs Vital Signs: Vital Signs - 24 hr 12/23/22 09:10 12/23/22 09:35 12/23/22 09:58 Temperature 97.9 F Pulse Rate 76 70 63 Respiratory Rate 18 Blood Pressure 103/69 89/44 L Pulse Oximetry Oxygen Delivery Oxygen Flow Rate 12/23/22 10:04 12/23/22 10:10 12/23/22 10:15 Temperature Pulse Rate 63 61 72 Respiratory Rate Blood Pressure 80/46 L 106/55 L 94/53 L Pulse Oximetry Oxygen Delivery Oxygen Flow Rate 12/23/22 10:20 12/23/22 10:30 12/23/22 10:45 Temperature Pulse Rate 60 63 65 Respiratory Rate Blood Pressure 86/45 L 84/41 L 103/44 L Pulse Oximetry Oxygen Delivery Oxygen Flow Rate 12/23/22 11:00 12/23/22 11:15 12/23/22 11:30 Temperature Pulse Rate 64 73 78 Respiratory Rate Blood Pressure 120/49 L 126/54 L 131/65 Pulse Oximetry Oxygen Delivery Oxygen Flow Rate 12/23/22 12:03 12/23/22 11:45 12/23/22 12:00 Temperature Pulse Rate 77 78 Respiratory Rate Blood Pressure 121/58 L 134/60 121/58 L Pulse Oximetry Oxygen Delivery Oxygen Flow Rate 12/23/22 15:15 12/23/22 15:30 12/23/22 15:45 Temperature 99.3 F Pulse Rate 78 77 77 Respiratory Rate 21 H 16 14 Blood Pressure 129/43 L 126/66 130/94 H Pulse Oximetry 98 97 96 Oxygen Delivery Simple Face Mask Room Air Room Air Oxygen Flow Rate 6 12/23/22 16:00 12/23/22 16:15 12/23/22 16:30 Temperature 97.6 F 97.7 F Pulse Rate 78 77 76 Respiratory Rate 14 20 16 Blood Pressure 144/60 H 126/51 L 138/48 L Pulse Oximetry 99 98 98 Oxygen Delivery Room Air Oxygen Flow Rate 12/23/22 16:15 12/23/22 16:30 12/23/22 17:00 Temperature 97.6 F 97.7 F 98.1 F Pulse Rate 77 76 69 Respiratory Rate 20 16 18 Blood Pressure 126/51 L 138/48 L 111/63 Pulse Oximetry 98 98 97 Oxygen Delivery Oxygen Flow Rate 12/23/22 17:54 12/23/22 12:15 12/23/22 13:08 Temperature 98.0 F 97.9 F Pulse Rate 66 77 81 Respiratory Rate 20 18 Blood Pressure 114/46 L 125/57 L 136/75 Pulse Oximetry 99 Oxygen Delivery Oxygen Flow Rate 12/23/22 12:30 12/23/22 12:45 12/23/22 12:57 Temperature Pulse Rate 78 79 78 Respiratory Rate Blood Pressure 130/61 135/59 L 152/58 H Pulse Oximetry Oxygen Delivery Oxygen Flow Rate 12/23/22 20:18 12/23/22 21:06 12/23/22 20:00 Temperature 98.6 F Pulse Rate 60 66 Respiratory Rate 18 Blood Pressure 129/51 L Pulse Oximetry 94 Oxygen Delivery Room Air Oxygen Flow Rate 12/24/22 05:54 12/24/22 07:56 Temperature 98.4 F 97.3 F L Pulse Rate 72 71 Respiratory Rate 18 18 Blood Pressure 127/64 136/43 L Pulse Oximetry 96 93 Oxygen Delivery Oxygen Flow Rate Intake/Output Intake/Output: Intake & Output 12/21/22 12/22/22 12/23/22 12/24/22 23:59 2
[2022-12-24] MEDS: oxyBUTYnin CHLORIDE XL 5 MG TAB.ER.24 15 MG PO (09:25)
[2022-12-24] MEDS: PANTOPRAZOLE 40 MG TABLET PO (09:25)
[2022-12-24] MEDS: METOPROLOL TARTRATE 50 MG TAB PO ×2 (09:25→19:53)
[2022-12-24] MEDS: rOPINIRole HCL 0.5 MG TABLET PO ×2 (09:25→17:06)
[2022-12-24] MEDS: ATORVASTATIN 40 MG TABLET PO (09:27)
[2022-12-24] MEDS: HEPARIN SODIUM 5,000 UNITS/ML VIAL 5000 UNITS SUB-Q ×2 (09:27→19:55)
[2022-12-24] MEDS: buPROPion HCL XL (24 HR) 150 MG TABCR PO (09:28)
[2022-12-24] MEDS: amLODIPine BESYLATE 5 MG TABLET PO (09:28)
[2022-12-24] MEDS: busPIRone HCL 10 MG TABLET PO ×2 (09:28→17:06)
[2022-12-24] MEDS: SILVERGEL (ELTA) 45 ML 1 APPLIC TOPICAL (09:30)
[2022-12-24] MEDS: oxyCODONE HCL (*CRX) 5 MG TAB IR 10 MG PO ×2 (10:36→19:53)
[2022-12-24] MEDS: levETIRAcetam 500 MG TABLET PO ×2 (10:36→22:34)
--- NOTE | 2022-12-24 11:24 | PM.IMPN ---
Progress Note: A&P Assessment and Plan (1) End stage renal disease: Code(s): N18.6 - End stage renal disease Status: Chronic (2) AMS (altered mental status): Code(s): R41.82 - Altered mental status, unspecified Status: Acute (3) Diabetes: Code(s): E11.9 - Type 2 diabetes mellitus without complications Status: Chronic (4) Acute UTI: Code(s): N39.0 - Urinary tract infection, site not specified Status: Acute Plan 77F w/ PMH ESRD, hypothyroidism, PVD, crohn's, BEKA, AOCD, DM, CORBY, RLS, OA, HTN, depression, presented with fall at home. she hit her head and was altered. found to have UTI. 12/23 underwent amputation for left hallux osteomyelitis. 1) left hallux osteomyelitis - POD #1 for amputation. mgmt per surgery - cont levaquin, f/u surgical pathology and blood cultures 2) acute UTI - cont levaquin 3) AMS - resolved, likely 2/2 to fall and UTI 4) ESRD - nephrology to manage 5) DM - continue accuchecks. - check HBA1c Full code stable. Subjective Date/time seen: 12/24/22 11:24 Interval history: pt denies complaints aside from pain at her amputation site as the nursing staff has just changed dressings Review of Systems Cardiovascular: Cardiovascular: Denies chest pain and Denies dyspnea Respiratory: Respiratory: Denies cough and Denies dyspnea Gastrointestinal: Gastrointestinal: Denies abdominal pain and Denies vomiting Exam Const: General: comfortable and no acute distress Eyes: Pupils: Equal, round and reactive pupils present Neck: Neck: supple Resp: Effort & Inspection: normal respiratory effort Auscultation: clear to auscultation bilaterally Cardio: Rate: regular rate Rhythm: regular rhythm GI: GI Palp: Yes Soft to palpation and No Tenderness to palpation present (GI) Skin: General skin exam: no erythema Extrem: General: no edema Other: left foot dressings c/d/i Objective Data Vital Signs Vital Signs: Vital Signs - 24 hr 12/23/22 11:30 12/23/22 12:03 12/23/22 11:45 Temperature Pulse Rate 78 77 Respiratory Rate Blood Pressure 131/65 121/58 L 134/60 Pulse Oximetry Oxygen Delivery Oxygen Flow Rate 12/23/22 12:00 12/23/22 15:15 12/23/22 15:30 Temperature 99.3 F Pulse Rate 78 78 77 Respiratory Rate 21 H 16 Blood Pressure 121/58 L 129/43 L 126/66 Pulse Oximetry 98 97 Oxygen Delivery Simple Face Mask Room Air Oxygen Flow Rate 6 12/23/22 15:45 12/23/22 16:00 12/23/22 16:15 Temperature 97.6 F Pulse Rate 77 78 77 Respiratory Rate 14 14 20 Blood Pressure 130/94 H 144/60 H 126/51 L Pulse Oximetry 96 99 98 Oxygen Delivery Room Air Room Air Oxygen Flow Rate 12/23/22 16:30 12/23/22 16:15 12/23/22 16:30 Temperature 97.7 F 97.6 F 97.7 F Pulse Rate 76 77 76 Respiratory Rate 16 20 16 Blood Pressure 138/48 L 126/51 L 138/48 L Pulse Oximetry 98 98 98 Oxygen Delivery Oxygen Flow Rate 12/23/22 17:00 12/23/22 17:54 12/23/22 12:15 Temperature 98.1 F 98.0 F Pulse Rate 69 66 77 Respiratory Rate 18 20 Blood Pressure 111/63 114/46 L 125/57 L Pulse Oximetry 97 99 Oxygen Delivery Oxygen Flow Rate 12/23/22 13:08 12/23/22 12:30 12/23/22 12:45 Temperature 97.9 F Pulse Rate 81 78 79 Respiratory Rate 18 Blood Pressure 136/75 130/61 135/59 L Pulse Oximetry Oxygen Delivery Oxygen Flow Rate 12/23/22 12:57 12/23/22 20:18 12/23/22 21:06 Temperature 98.6 F Pulse Rate 78 60 66 Respiratory Rate 18 Blood Pressure 152/58 H 129/51 L Pulse Oximetry 94 Oxygen Delivery Oxygen Flow Rate 12/23/22 20:00 12/24/22 05:54 12/24/22 07:56 Temperature 98.4 F 97.3 F L Pulse Rate 72 71 Respiratory Rate 18 18 Blood Pressure 127/64 136/43 L Pulse Oximetry 96 93 Oxygen Delivery Room Air Oxygen Flow Rate 12/24/22 09:25 12/24/22 09:27 Temperature Pulse Rate 66 Respiratory Rate Blood Pressure Pulse Oximetry Oxygen Delive
--- NOTE | 2022-12-24 11:43 | PC.NURSE ---
On 12/24/22, the student, [Mary Currie ], provided care and completed [facility] documentation on this patient. I have reviewed the student's documentation and agree with the findings.
[2022-12-24 11:59] LABS: Hemoglobin A1C 5.6 % (<5.7)
--- NOTE | 2022-12-24 13:32 | P.PNNP_ITS ---
Progress Note: A&P Assessment and Plan (1) End stage renal disease: Code(s): N18.6 - End stage renal disease Status: Chronic Assessment and Plan: * HD tomorrow and continue T/T/s outpatient dialysis schedule * follow electrolytes, volume status, and clearance (2) Altered mental status: Code(s): R41.82 - Altered mental status, unspecified Status: Acute Assessment and Plan: * suspicion falls on acute UTI * clinically better at this time (but a significant component of anxiety noted) * follow mentation (3) Acute UTI: Code(s): N39.0 - Urinary tract infection, site not specified Status: Acute Assessment and Plan: * suggested by admission UA * urine culture with Group B Strep * on antibiotics (4) Osteomyelitis of toe of left foot: Code(s): M86.9 - Osteomyelitis, unspecified Status: Acute Assessment and Plan: * Orthopedics following * s/p left hallux amputation (on 12/23/22) * wound care * pain control (5) Hypertension: Code(s): I10 - Essential (primary) hypertension Status: Chronic Assessment and Plan: * reasonable control at this time * follow trend of hemodynamics (6) Anemia: Code(s): D64.9 - Anemia, unspecified Status: Chronic Assessment and Plan: * due to ESRD * Epogen with dialysis * follow trend of H/H Will continue to follow. Subjective Date/time seen: 12/24/22 13:32 Interval history: Follow-up for end stage renal disease on hemodialysis. Tolerated dialysis treatment yesterday although BP ran low during the treatment; s/p surgical intervention by Orthopedics yesterday as well and tolerated the intervention reasonably well; no acute distress voiced. Exam Narrative: General: elderly female in NAD Heart: normal S1 and S2; no rub Lungs: clear anteriorly Abdomen: soft, nontender, nondistended, positive bowel sounds Extremities: no cyanosis or clubbing; no edema Skin: warm and intact Objective Data Vital Signs Vital Signs: Vital Signs Temp Pulse Resp BP Pulse Ox O2 Del Method 12/24/22 13:24 Room Air 12/24/22 11:55 97.3 F L 73 18 126/46 L 95 12/24/22 09:27 Room Air 12/24/22 09:25 66 12/24/22 07:56 97.3 F L 71 18 136/43 L 93 12/24/22 05:54 98.4 F 72 18 127/64 96 12/23/22 20:00 Room Air 12/23/22 21:06 98.6 F 66 18 129/51 L 94 12/23/22 20:18 60 Intake/Output Intake/Output: Intake & Output 12/21/22 12/22/22 12/23/22 12/24/22 23:59 23:59 23:59 23:59 Intake Total 120 0 700 Output Total 0 Balance 120 0 700 Meds/Results Medications: Active Medications Generic Name Dose Route Start Last Admin Trade Name Freq PRN Reason Stop Dose Admin Acetaminophen 650 mg 12/22/22 05:53 Acetaminophen 325 Mg Tablet PO Q4H PRN Mild Pain (1-3) or Fever Al Hydrox/Mg Hydrox/Simethicone 30 ml 12/22/22 05:53 Mag Hydrox/Al Hydrox/Simeth 30 Ml Udc PO QID PRN Dyspepsia Amlodipine Besylate 5 mg 12/23/22 09:00 12/24/22 09:28 Amlodipine Be
--- NOTE | 2022-12-24 13:32 | PM.PNNEP ---
Progress Note: A&P Assessment and Plan (1) End stage renal disease: Code(s): N18.6 - End stage renal disease Status: Chronic Assessment and Plan: HD tomorrow and continue T/T/s outpatient dialysis schedule follow electrolytes, volume status, and clearance (2) Altered mental status: Code(s): R41.82 - Altered mental status, unspecified Status: Acute Assessment and Plan: suspicion falls on acute UTI clinically better at this time (but a significant component of anxiety noted) follow mentation (3) Acute UTI: Code(s): N39.0 - Urinary tract infection, site not specified Status: Acute Assessment and Plan: suggested by admission UA urine culture with Group B Strep on antibiotics (4) Osteomyelitis of toe of left foot: Code(s): M86.9 - Osteomyelitis, unspecified Status: Acute Assessment and Plan: Orthopedics following s/p left hallux amputation (on 12/23/22) wound care pain control (5) Hypertension: Code(s): I10 - Essential (primary) hypertension Status: Chronic Assessment and Plan: reasonable control at this time follow trend of hemodynamics (6) Anemia: Code(s): D64.9 - Anemia, unspecified Status: Chronic Assessment and Plan: due to ESRD Epogen with dialysis follow trend of H/H Will continue to follow. Subjective Date/time seen: 12/24/22 13:32 Interval history: Follow-up for end stage renal disease on hemodialysis. Tolerated dialysis treatment yesterday although BP ran low during the treatment; s/p surgical intervention by Orthopedics yesterday as well and tolerated the intervention reasonably well; no acute distress voiced. Exam Narrative: General: elderly female in NAD Heart: normal S1 and S2; no rub Lungs: clear anteriorly Abdomen: soft, nontender, nondistended, positive bowel sounds Extremities: no cyanosis or clubbing; no edema Skin: warm and intact Objective Data Vital Signs Vital Signs: Vital Signs Temp Pulse Resp BP Pulse Ox O2 Del Method 12/24/22 13:24 Room Air 12/24/22 11:55 97.3 F L 73 18 126/46 L 95 12/24/22 09:27 Room Air 12/24/22 09:25 66 12/24/22 07:56 97.3 F L 71 18 136/43 L 93 12/24/22 05:54 98.4 F 72 18 127/64 96 12/23/22 20:00 Room Air 12/23/22 21:06 98.6 F 66 18 129/51 L 94 12/23/22 20:18 60 Intake/Output Intake/Output: Intake & Output 12/21/22 12/22/22 12/23/22 12/24/22 23:59 23:59 23:59 23:59 Intake Total 120 0 700 Output Total 0 Balance 120 0 700 Meds/Results Medications: Active Medications Generic Name Dose Route Start Last Admin Trade Name Freq PRN Reason Stop Dose Admin Acetaminophen 650 mg 12/22/22 05:53 Acetaminophen 325 Mg Tablet PO Q4H PRN Mild Pain (1-3) or Fever Al Hydrox/Mg Hydrox/Simethicone 30 ml 12/22/22 05:53 Mag Hydrox/Al Hydrox/Simeth 30 Ml Udc PO QID PRN Dyspepsia Amlodipine Besylate 5 mg 12/23/22 09:00 12/24/22 09:28 Amlodipine Besylate 5 Mg Tablet PO 5 mg DAILY SUKI Administration Atorvastatin Calcium 40 mg 12/23/22 09:00 12/24/22 09:27 Atorvastatin 40 Mg Tablet PO 40 mg DAILY SUKI Administration Bupropion HCl 150 mg 12/23/22 09:00 12/24/22 09:28 Bupropion Hcl Xl (24 Hr) 150 Mg Tabcr PO 150 mg QAM SUKI Administration Buspirone HCl 10 mg 12/22/22 17:00 12/24/22 17:06 Buspirone Hcl 10 Mg Tablet PO 10 mg BID SUKI Administration Ergocalciferol 50,000 units 12/29/22 09:00 Ergocalciferol 50,000 Units Capsule PO WEEKLY [facility] Heparin Sodium (Porcine) 5,000 units 12/22/22 09:00 12/24/22 09:27 Heparin Sodium 5,000 Units/Ml Vial SUB-Q 5,000 units Q12HR SUKI Administration Levofloxacin/Dextrose 500 mg in 100 mls @ 100 mls/hr 12/24/22 06:00 12/24/22 06:22 Levaquin 500 Mg/D5w 100 Ml IVPB Infused Q48H [facility] Infusi
[2022-12-24 16:33] LABS: Glucose Point of Care 137 mg/dl (65-105)
--- NOTE | 2022-12-24 19:45 | PC.NURSE ---
Pt has been up in chair and back to bed today. Pt has not had a good appetite, but pt has been encouraged to eat. Pt reports being depressed being in the hospital. Pt dressing change done this AM, pt tolerated well. Pt has been monitored for any changes in status while here.
[2022-12-24] MEDS: MIRTAZAPINE 30 MG TABLET PO (19:55)
[2022-12-24 20:39] LABS: Glucose Point of Care 154 mg/dl (65-105)
[2022-12-25] VITALS (14 sets, daily range): BP systolic 103–185; BP diastolic 51–104; PULSE 68–75; RESP 16–18; TEMP 36.6–37.2; O2SAT 95–97
[2022-12-25 07:02] LABS: Basophils Percent Auto 0.4 % (0.2-1.2); Eosinophils Absolute Auto 0.5 K/mm3 (0-0.3); Eosinophils Percent Auto 4.5 % (0-4.4); Hemoglobin 9.2 g/dL (12.0-15.0); Immature Granulocyte Absolute 0.13 K/mm3 (0.00-0.031); Immature Granulocyte Percent A 1.3 % (0-0.5); Lymphocytes Absolute Auto 1.82 K/mm3 (0.9-3.2); Lymphocytes Percent Auto 18.2 % (18.3-44.2); Mean Corpuscular HGB Conc 31.7 g/dl (32-36); Mean Corpuscular Hemoglobin 29.7 pg (26-34); Mean Corpuscular Volume 93.5 fl (80-100); Monocytes Absolute Auto 0.8 K/mm3 (0.1-0.6); Monocytes Percent Auto 8.1 % (2.6-8.5); Neutrophils Absolute Auto 6.7 K/mm3 (1.3-6.7); Neutrophils Percent Auto 67.5 % (45.5-73.1); Platelet Count Result 298 k/mm3 (150-375); Red Cell Distribution Width 13.6 % (11.5-14.5)
[2022-12-25 07:22] LABS: Anion Gap 10 mmol/L (8-16); Blood Urea Nitrogen 35 mg/dL (7-17); Calcium 8.6 mg/dL (8.4-10.2); Carbon Dioxide 24 mmol/L (22-30); Chloride 102 mmol/L (98-107); Estimated CRCL calculation 7 ml/min; Estimated Glomerular Filt Rate 7; Glucose 86 mg/dL (65-110); Potassium 3.8 mmol/L (3.4-5.0); Sodium 136 mmol/L (137-145)
[2022-12-25 07:49] LABS: Glucose Point of Care 97 mg/dl (65-105)
[2022-12-25] MEDS: PANTOPRAZOLE 40 MG TABLET PO (08:24)
[2022-12-25] MEDS: busPIRone HCL 10 MG TABLET PO ×2 (08:24→18:06)
[2022-12-25] MEDS: rOPINIRole HCL 0.5 MG TABLET PO ×2 (08:24→18:06)
[2022-12-25] MEDS: buPROPion HCL XL (24 HR) 150 MG TABCR PO (08:24)
[2022-12-25] MEDS: oxyBUTYnin CHLORIDE XL 5 MG TAB.ER.24 15 MG PO (08:24)
[2022-12-25] MEDS: ATORVASTATIN 40 MG TABLET PO (08:25)
[2022-12-25] MEDS: SILVERGEL (ELTA) 45 ML 1 APPLIC TOPICAL (08:28)
--- NOTE | 2022-12-25 09:14 | PM.PNORT ---
Progress Note: A&P Assessment and Plan (1) Osteomyelitis of toe of left foot: Code(s): M86.9 - Osteomyelitis, unspecified Status: Acute Assessment and Plan: POD #2: Left Hallux Amputation PT/OT. WBAT on Heel. Post Op Shoe. Dressing removed. Begin daily dressing changes with adaptic to the incision line, cover with gauze, wrap with kerlex and tape in place. Continue IV antibiotics. Pathology results pending. Outpatient antibiotics per hospitalist team. Follow up appt scheduled in the [facility] wound clinic in 1 week. Subjective Subjective Date/Time Seen: 12/25/22 09:14 Post Op day: 2 Principal diagnosis: Left hallux osteomyelitis Interval history: Patient awake and sitting up in chair. Answering all questions appropriately. No new concerns. Hopeful for discharge to Assisted Living. Review of Systems Review of Systems: All systems reviewed & are unremarkable except as noted in HPI and below Exam HENMT: Head: normal to inspection, normocephalic and atraumatic Eyes: Conjunctivae: conjunctivae normal Sclera: sclerae normal Resp: Effort & Inspection: normal respiratory effort and no audible wheezes Neuro: General: patient oriented x3 and No confusion Extrem: Other: Left foot dressing removed. Sutures intact. Incision well approximated. Mild ecchymosis/purplish discoloration to the remaining aspect of the hallux. Palpable pedal pulses. Negative Homans sign. Right foot toes with good capillary refill and negative Homans sign. Psych: Affect: normal affect Objective Data Vital Signs Vital Signs: Vital Signs - 24 hr 12/24/22 09:25 12/24/22 09:27 12/24/22 11:55 Temperature 36.3 C L Pulse Rate 66 73 Respiratory Rate 18 Blood Pressure 126/46 L Pulse Oximetry 95 Oxygen Delivery Room Air 12/24/22 14:24 12/24/22 15:57 12/24/22 19:53 Temperature 36.5 C Pulse Rate 50 L 68 Respiratory Rate 20 Blood Pressure 122/41 L Pulse Oximetry 99 Oxygen Delivery Room Air 12/24/22 20:44 12/24/22 20:00 12/25/22 05:49 Temperature 36.3 C L 36.6 C Pulse Rate 67 73 Respiratory Rate 16 16 Blood Pressure 134/55 L 144/64 H Pulse Oximetry 99 97 Oxygen Delivery Room Air Intake/Output Intake/Output: Intake & Output 12/22/22 12/23/22 12/24/22 12/25/22 23:59 23:59 23:59 23:59 Intake Total 120 0 700 Output Total 0 Balance 120 0 700 Meds/Results Medications: Active Medications Generic Name Dose Route Start Last Admin Trade Name Freq PRN Reason Stop Dose Admin Acetaminophen 650 mg 12/22/22 05:53 Acetaminophen 325 Mg Tablet PO Q4H PRN Mild Pain (1-3) or Fever Al Hydrox/Mg Hydrox/Simethicone 30 ml 12/22/22 05:53 Mag Hydrox/Al Hydrox/Simeth 30 Ml Udc PO QID PRN Dyspepsia Amlodipine Besylate 5 mg 12/23/22 09:00 12/24/22 09:28 Amlodipine Besylate 5 Mg Tablet PO 5 mg DAILY SUKI Administration Atorvastatin Calcium 40 mg 12/23/22 09:00 12/25/22 08:25 Atorvastatin 40 Mg Tablet PO 40 mg DAILY [facility]KI Administration Bupropion HCl 150 mg 12/23/22 09:00 12/25/22 08:24 Bupropion Hcl Xl (24 Hr) 150 Mg Tabcr PO 150 mg QAM [facility]KI Administration Buspirone HCl 10 mg 12/22/22 17:00 12/25/22 08:24 Buspirone Hcl 10 Mg Tablet PO 10 mg BID [facility]KI Administration Epoetin Kelechi-epbx 10,000 units 12/25/22 20:00 Epoetin Kelechi-Epbx 10,000 Units/Ml Vial IV PUSH 12/25/22 20:01 ONCE ONE Ergocalciferol 50,000 units 12/29/22 09:00 Ergocalciferol 50,000 Units Capsule PO WEEKLY [facility] Heparin Sodium (Porcine) 5,000 units 12/22/22 09:00 12/24/22 19:55 Heparin Sodium 5,000 Units/Ml Vial SUB-Q 5,000 units Q12HR [facility] Administration Levofloxacin/Dextrose 500 mg in 100 mls @ 100 mls/hr 12/24/22 06:00 12/24/22 06:22 Levaquin 500 Mg/D5w 100 Ml IVPB Infused Q48H [facility] Infusion Albumin Human 50 mls @ 999 mls/hr 12/23/22 06:21 Albutein IVPB 01/22/23 06:20 Q10M PRN HYPO
[2022-12-25] MEDS: METOPROLOL TARTRATE 50 MG TAB PO ×2 (09:28→22:10)
[2022-12-25] MEDS: amLODIPine BESYLATE 5 MG TABLET PO (09:30)
[2022-12-25] MEDS: HEPARIN SODIUM 5,000 UNITS/ML VIAL 5000 UNITS SUB-Q ×2 (09:30→22:11)
[2022-12-25 11:25] LABS: Glucose Point of Care 179 mg/dl (65-105)
--- NOTE | 2022-12-25 11:48 | PM.DS ---
DS: Admitting Diagnosis Discharge Date 12/25 Admitting Diagnosis uti and falls DS: Discharge Diagnosis Discharge Diagnosis (1) End stage renal disease: Code(s): N18.6 - End stage renal disease Status: Chronic (2) Acute UTI: Code(s): N39.0 - Urinary tract infection, site not specified Status: Acute (3) AMS (altered mental status): Code(s): R41.82 - Altered mental status, unspecified Status: Acute (4) Osteomyelitis of toe of left foot: Code(s): M86.9 - Osteomyelitis, unspecified Status: Acute DS: Summary Hospital Course Hospital Course: 77F w/ PMH ESRD, hypothyroidism, PVD, crohn's, BEKA, AOCD, DM, CORBY, RLS, OA, HTN, depression,? presented with fall at home. she hit her head and was altered. found to have UTI. 12/23 underwent amputation for left hallux osteomyelitis. Since source has been adequately controlled and there are no signs of systemic toxicity, she will complete 7 days of levofloxacin (dialysis dosed), another 5 days of PO abx as outpatient. This will also cover her gram positive UTI. follow up with PCP and ortho, surgical pathology pending She is in stable, improved condition and will be de'ed to SNF for rehab. More than 30 minutes spent on discharge planning and documentation. Time Spent with Patient Time attestation: Total time spent providing and/or coordinating discharge services: Exam Const: General: no acute distress, alert and Physically active Resp: Effort & Inspection: normal respiratory effort Auscultation: clear to auscultation bilaterally Cardio: Rate: regular rate Rhythm: regular rhythm Heart sounds: S1 normal heart sound present and S2 normal heart sound present GI: Inspection: non-distended GI Palp: No abdominal tenderness Auscultation: normal bowel sounds Extrem: Right upper extremity: no edema DS: Data Data Completed and Pending Pending studies at discharge: Pending at discharge 12/23/22 15:06 Surgical [PTH] Routine Labs on day of discharge: Labs from last 24 hours 12/25/22 12/25/22 12/25/22 11:18 07:31 06:39 WBC 10.0 RBC 3.10 L Hgb 9.2 L Hct 29.0 L MCV 93.5 MCH 29.7 MCHC 31.7 L RDW 13.6 Plt Count 298 MPV 9.0 Immature Gran % (Auto) 1.3 H Neut % (Auto) 67.5 Lymph % (Auto) 18.2 L Dundy % (Auto) 8.1 Eos % (Auto) 4.5 H Baso % (Auto) 0.4 Lymph # (Auto) 1.82 Dundy # (Auto) 0.8 H Eos # (Auto) 0.5 H Baso # (Auto) 0.0 Abs Immat Gran (auto) 0.13 H Absolute Neuts (auto) 6.7 Absolute Nucleated RBC 0.0 Nucleated RBC % 0.0 Sodium 136 L Potassium 3.8 Chloride 102 Carbon Dioxide 24 Anion Gap 10 BUN 35 H D Creatinine 6.10 H Estim Creat Clear Calc 7 Estimated GFR 7 L Glucose 86 POC Capillary Glucose 179 H 97 Hemoglobin A1c Calcium 8.6 12/24/22 12/24/22 12/24/22 20:31 16:25 06:53 WBC RBC Hgb Hct MCV MCH MCHC RDW Plt Count MPV Immature Gran % (Auto) Neut % (Auto) Lymph % (Auto) Dundy % (Auto) Eos % (Auto) Baso % (Auto) Lymph # (Auto) Dundy # (Auto) Eos # (Auto) Baso # (Auto) Abs Immat Gran (auto) Absolute Neuts (auto) Absolute Nucleated RBC Nucleated RBC % Sodium Potassium Chloride Carbon Dioxide Anion Gap BUN Creatinine Estim Creat Clear Calc Estimated GFR Glucose POC Capillary Glucose 154 H 137 H Hemoglobin A1c 5.6 Calcium Preliminary micro results at discharge 12/22/22 02:42 Blood Culture - Preliminary Blood Discharge Plan Discharge Attending physician on discharge: Huyen Bass Consulting providers: Marcelle Howard; Simeon Moran Discharging Clinician: Huyen Bass Patient Disposition: SNF Activity: no shower and follow weight bearing status Diet: heart healthy, diabetic and renal Wound Care Instructions: follow gigi
--- NOTE | 2022-12-25 11:51 | PCNFU ---
Nutrition Follow-Up Complete: Moderate protein calorie malnutrition related to chronic illness, increased needs from hemodialysis, inadequate intake as evidenced by weight loss 10%/2 months; Intakes <75% needs >1 month; NFPE findings of moderate muscle wasting and fat loss. Goal:Adequate PO intake at least 75% meals and supplements Pt is progressing towards goal. continue with current goal. Pt current nutrition is 2gm NA, Nepro shakes. Nutrition recommendation: Continue with current plan of care Last recorded weight is 69.1 kg. Bowel Motility: +BM 12/24 Labs Reviewed: Hgb:9.2, HCT:29, NA:136, GFR:7, BUN:35, Cr:6.1 Meds Noted: remeron, protonix Skin: toe surgical wound Additional Notes: Pt intake is good per her report, good appetite, drinking Nepro shakes and likes them. Charted intake 50%. Continue to encourage good po intake. Monitoring intakes, weights, labs, supplement tolerance, plan of care Follow up in 7 days
[2022-12-25] MEDS: levETIRAcetam 500 MG TABLET PO ×2 (13:33→22:09)
[2022-12-25] MEDS: oxyCODONE HCL (*CRX) 5 MG TAB IR 10 MG PO ×2 (13:33→22:23)
--- NOTE | 2022-12-25 14:04 | PM.PNNEP ---
Progress Note: A&P Assessment and Plan (1) End stage renal disease: Code(s): N18.6 - End stage renal disease Status: Chronic Assessment and Plan: HD today and continue T/T/s outpatient dialysis schedule follow electrolytes, volume status, and clearance (2) Altered mental status: Code(s): R41.82 - Altered mental status, unspecified Status: Acute Assessment and Plan: suspicion falls on acute UTI clinically better at this time (but a significant component of anxiety noted) follow mentation (3) Acute UTI: Code(s): N39.0 - Urinary tract infection, site not specified Status: Acute Assessment and Plan: suggested by admission UA urine culture with Group B Strep on antibiotics (4) Osteomyelitis of toe of left foot: Code(s): M86.9 - Osteomyelitis, unspecified Status: Acute Assessment and Plan: Orthopedics following s/p left hallux amputation (on 12/23/22) wound care pain control (5) Hypertension: Code(s): I10 - Essential (primary) hypertension Status: Chronic Assessment and Plan: reasonable control at this time follow trend of hemodynamics (6) Anemia: Code(s): D64.9 - Anemia, unspecified Status: Chronic Assessment and Plan: due to ESRD Epogen with dialysis follow trend of H/H Will continue to follow. Subjective Date/time seen: 12/25/22 14:04 Interval history: Follow-up for end stage renal disease on hemodialysis. Overall, seems to be doing reasonably well; no apparent distress noted; no issues/events overnight or earlier this morning; plan for dialysis this afternoon. Exam Narrative: General: elderly female in NAD Heart: normal S1 and S2; no rub Lungs: clear anteriorly Abdomen: soft, nontender, nondistended, positive bowel sounds Extremities: no cyanosis or clubbing; no edema Skin: no rash or nodules Objective Data Vital Signs Vital Signs: Vital Signs Temp Pulse Resp BP Pulse Ox O2 Del Method 12/25/22 08:20 Room Air 12/25/22 09:28 68 12/25/22 05:49 97.8 F 73 16 144/64 H 97 12/24/22 20:00 Room Air 12/24/22 20:44 97.4 F L 67 16 134/55 L 99 12/24/22 19:53 68 Intake/Output Intake/Output: Intake & Output 12/22/22 12/23/22 12/24/22 12/25/22 23:59 23:59 23:59 23:59 Intake Total 120 0 700 240 Output Total 0 Balance 120 0 700 240 Meds/Results Medications: Active Medications Generic Name Dose Route Start Last Admin Trade Name Freq PRN Reason Stop Dose Admin Acetaminophen 650 mg 12/22/22 05:53 Acetaminophen 325 Mg Tablet PO Q4H PRN Mild Pain (1-3) or Fever Al Hydrox/Mg Hydrox/Simethicone 30 ml 12/22/22 05:53 Mag Hydrox/Al Hydrox/Simeth 30 Ml Udc PO QID PRN Dyspepsia Amlodipine Besylate 5 mg 12/23/22 09:00 12/25/22 09:30 Amlodipine Besylate 5 Mg Tablet PO 5 mg DAILY SUKI Administration Atorvastatin Calcium 40 mg 12/23/22 09:00 12/25/22 08:25 Atorvastatin 40 Mg Tablet PO 40 mg DAILY SUKI Administration Bupropion HCl 150 mg 12/23/22 09:00 12/25/22 08:24 Bupropion Hcl Xl (24 Hr) 150 Mg Tabcr PO 150 mg QAM SUKI Administration Buspirone HCl 10 mg 12/22/22 17:00 12/25/22 08:24 Buspirone Hcl 10 Mg Tablet PO 10 mg BID SUKI Administration Epoetin Kelechi-epbx 10,000 units 12/25/22 20:00 Epoetin Kelechi-Epbx 10,000 Units/Ml Vial IV PUSH 12/25/22 20:01 ONCE ONE Ergocalciferol 50,000 units 12/30/22 09:00 Ergocalciferol 50,000 Units Capsule PO WEEKLY [facility] Heparin Sodium (Porcine) 5,000 units 12/22/22 09:00 12/25/22 09:30 Heparin Sodium 5,000 Units/Ml Vial SUB-Q 5,000 units Q12HR SUKI Administration Levofloxacin/Dextrose 500 mg in 100 mls @ 100 mls/hr 12/24/22 06:00 12/24/22 06:22 Levaquin 500 Mg/D5w 100 Ml IVPB Infused Q48H [facility] Infusion Albumin Human 50 mls @ 999 mls/hr
--- NOTE | 2022-12-25 14:04 | P.PNNP_ITS ---
Progress Note: A&P Assessment and Plan (1) End stage renal disease: Code(s): N18.6 - End stage renal disease Status: Chronic Assessment and Plan: * HD today and continue T/T/s outpatient dialysis schedule * follow electrolytes, volume status, and clearance (2) Altered mental status: Code(s): R41.82 - Altered mental status, unspecified Status: Acute Assessment and Plan: * suspicion falls on acute UTI * clinically better at this time (but a significant component of anxiety noted) * follow mentation (3) Acute UTI: Code(s): N39.0 - Urinary tract infection, site not specified Status: Acute Assessment and Plan: * suggested by admission UA * urine culture with Group B Strep * on antibiotics (4) Osteomyelitis of toe of left foot: Code(s): M86.9 - Osteomyelitis, unspecified Status: Acute Assessment and Plan: * Orthopedics following * s/p left hallux amputation (on 12/23/22) * wound care * pain control (5) Hypertension: Code(s): I10 - Essential (primary) hypertension Status: Chronic Assessment and Plan: * reasonable control at this time * follow trend of hemodynamics (6) Anemia: Code(s): D64.9 - Anemia, unspecified Status: Chronic Assessment and Plan: * due to ESRD * Epogen with dialysis * follow trend of H/H Will continue to follow. Subjective Date/time seen: 12/25/22 14:04 Interval history: Follow-up for end stage renal disease on hemodialysis. Overall, seems to be doing reasonably well; no apparent distress noted; no issues/events overnight or earlier this morning; plan for dialysis this afternoon. Exam Narrative: General: elderly female in NAD Heart: normal S1 and S2; no rub Lungs: clear anteriorly Abdomen: soft, nontender, nondistended, positive bowel sounds Extremities: no cyanosis or clubbing; no edema Skin: no rash or nodules Objective Data Vital Signs Vital Signs: Vital Signs Temp Pulse Resp BP Pulse Ox O2 Del Method 12/25/22 08:20 Room Air 12/25/22 09:28 68 12/25/22 05:49 97.8 F 73 16 144/64 H 97 12/24/22 20:00 Room Air 12/24/22 20:44 97.4 F L 67 16 134/55 L 99 12/24/22 19:53 68 Intake/Output Intake/Output: Intake & Output 12/22/22 12/23/22 12/24/22 12/25/22 23:59 23:59 23:59 23:59 Intake Total 120 0 700 240 Output Total 0 Balance 120 0 700 240 Meds/Results Medications: Active Medications Generic Name Dose Route Start Last Admin Trade Name Freq PRN Reason Stop Dose Admin Acetaminophen 650 mg 12/22/22 05:53 Acetaminophen 325 Mg Tablet PO Q4H PRN Mild Pain (1-3) or Fever Al Hydrox/Mg Hydrox/Simethicone 30 ml 12/22/22 05:53 Mag Hydrox/Al Hydrox/Simeth 30 Ml Udc PO QID PRN Dyspepsia Amlodipine Besylate 5 mg 12/23/22 09:00 12/25/22 09:30 Amlodipine Besylate 5 Mg Tablet PO 5 mg DAILY SUKI Administration Atorvastatin Calcium 40 mg 12/23/22 09:00 12/25/22 08:25 Atorvastatin 40 Mg Tablet PO 40 mg SCOTTY
[2022-12-25 17:06] LABS: Glucose Point of Care 127 mg/dl (65-105)
--- NOTE | 2022-12-25 17:28 | PC.NURSE ---
Dialysis unable to take patient earlier today. Pt will receive dialysis late tonight. Family decided to take family to [facility] tomorrow 12/26/22 due to pt receiving dialysis late today. Dr. Bass made aware and is ok with patient discharging tomorrow.
--- NOTE | 2022-12-25 18:39 | PC.NURSE ---
Mary Pearson performed patient's assessment and care on 12/25/22. I have reviewed her assessments and agree with her charting.
[2022-12-25] MEDS: EPOETIN ALFA-EPBX 10,000 UNITS/ML VIAL 10000 UNITS IV PUSH (20:05)
[2022-12-25 21:01] LABS: Glucose Point of Care 159 mg/dl (65-105)
[2022-12-25] MEDS: MIRTAZAPINE 30 MG TABLET PO (22:11)
[2022-12-26] MEDS: levoFLOXacin 500 MG/D5W 100 ML 500 MG/100 ML BAG 100 MG IVPB (05:34)
[2022-12-26] MEDS: METOPROLOL TARTRATE 50 MG TAB PO (06:21)
[2022-12-26 06:23] VITALS: BP 200/80; PULSE 73; RESP 16; TEMP 37.2; O2SAT 96
[2022-12-26 07:50] LABS: Glucose Point of Care 98 mg/dl (65-105)
[2022-12-26 07:55] VITALS: BP 135/70
[2022-12-26] MEDS: buPROPion HCL XL (24 HR) 150 MG TABCR PO (08:41)
[2022-12-26] MEDS: PANTOPRAZOLE 40 MG TABLET PO (08:41)
[2022-12-26] MEDS: oxyBUTYnin CHLORIDE XL 5 MG TAB.ER.24 15 MG PO (08:41)
[2022-12-26] MEDS: amLODIPine BESYLATE 5 MG TABLET PO (08:41)
[2022-12-26] MEDS: rOPINIRole HCL 0.5 MG TABLET PO (08:42)
[2022-12-26] MEDS: ATORVASTATIN 40 MG TABLET PO (08:42)
[2022-12-26] MEDS: HEPARIN SODIUM 5,000 UNITS/ML VIAL 5000 UNITS SUB-Q (08:42)
[2022-12-26] MEDS: busPIRone HCL 10 MG TABLET PO (08:42)
--- NOTE | 2022-12-26 08:55 | PM.PNORT ---
Progress Note: A&P Assessment and Plan (1) Osteomyelitis of toe of left foot: Code(s): M86.9 - Osteomyelitis, unspecified Status: Acute Assessment and Plan: POD #3: Left Hallux Amputation PT/OT. WBAT on Heel. Post Op Shoe. Dressing removed. Daily dressing changes with gauze to the incision line, wrap with Kerlex and tape in place. Continue antibiotics. Pathology results pending. Outpatient antibiotics per hospitalist team. Follow up appt scheduled in the [facility] wound clinic in 1 week. Subjective Subjective Date/Time Seen: 12/26/22 08:55 Post Op day: 3 Principal diagnosis: Left hallux osteomyelitis Interval history: Patient awake and sitting at bedside. Answering all questions appropriately. No new concerns. Hopeful for discharge to Assisted Living today Review of Systems Review of Systems: All systems reviewed & are unremarkable except as noted in HPI and below Exam HENMT: Head: normal to inspection, normocephalic and atraumatic Eyes: Conjunctivae: conjunctivae normal Sclera: sclerae normal Resp: Effort & Inspection: normal respiratory effort and no audible wheezes Neuro: General: patient oriented x3 and No confusion Extrem: Other: Left foot dressing removed. Sutures intact. Incision well approximated. Mild ecchymosis to the remaining aspect of the hallux. Palpable pedal pulses. Negative Homans sign. Right foot toes with good capillary refill and negative Homans sign. Psych: Affect: normal affect Objective Data Vital Signs Vital Signs: Vital Signs - 24 hr 12/25/22 09:28 12/25/22 19:30 12/25/22 18:37 Temperature 36.6 C Pulse Rate 68 75 70 Respiratory Rate 18 Blood Pressure 164/80 H 173/66 H Pulse Oximetry 12/25/22 18:45 12/25/22 19:00 12/25/22 19:15 Temperature Pulse Rate 72 72 71 Respiratory Rate Blood Pressure 185/72 H 156/82 H 175/70 H Pulse Oximetry 12/25/22 19:30 12/25/22 19:45 12/25/22 20:00 Temperature Pulse Rate 70 72 72 Respiratory Rate Blood Pressure 158/51 H 168/84 H 167/71 H Pulse Oximetry 12/25/22 20:15 12/25/22 20:30 12/25/22 20:45 Temperature Pulse Rate 73 71 70 Respiratory Rate Blood Pressure 158/66 H 135/78 156/104 H Pulse Oximetry 12/25/22 21:00 12/25/22 21:19 12/26/22 06:23 Temperature 37.2 C 37.2 C Pulse Rate 71 73 73 Respiratory Rate 16 16 Blood Pressure 103/64 158/66 H 200/80 H Pulse Oximetry 95 96 12/26/22 07:55 Temperature Pulse Rate Respiratory Rate Blood Pressure 135/70 Pulse Oximetry Intake/Output Intake/Output: Intake & Output 12/23/22 12/24/22 12/25/22 12/26/22 23:59 23:59 23:59 23:59 Intake Total 0 700 910 Output Total 0 Balance 0 700 910 Meds/Results Medications: Active Medications Generic Name Dose Route Start Last Admin Trade Name Freq PRN Reason Stop Dose Admin Acetaminophen 650 mg 12/22/22 05:53 Acetaminophen 325 Mg Tablet PO Q4H PRN Mild Pain (1-3) or Fever Al Hydrox/Mg Hydrox/Simethicone 30 ml 12/22/22 05:53 Mag Hydrox/Al Hydrox/Simeth 30 Ml Udc PO QID PRN Dyspepsia Amlodipine Besylate 5 mg 12/23/22 09:00 12/26/22 08:41 Amlodipine Besylate 5 Mg Tablet PO 5 mg DAILY SUKI Administration Atorvastatin Calcium 40 mg 12/23/22 09:00 12/26/22 08:42 Atorvastatin 40 Mg Tablet PO 40 mg DAILY SUKI Administration Bupropion HCl 150 mg 12/23/22 09:00 12/26/22 08:41 Bupropion Hcl Xl (24 Hr) 150 Mg Tabcr PO 150 mg QAM SUKI Administration Buspirone HCl 10 mg 12/22/22 17:00 12/26/22 08:42 Buspirone Hcl 10 Mg Tablet PO 10 mg BID SUKI Administration Ergocalciferol 50,000 units 12/30/22 09:00 Ergocalciferol 50,000 Units Capsule PO WEEKLY [facility] Heparin Sodium (Porcine) 5,000 units 12/22/22 09:00 12/26/22 08:42 Heparin Sodium 5,000 Units/Ml Vial SUB-Q 5,000 units Q12HR SUKI Administration Levofloxacin/Dextrose 500 mg in 100 mls @ 100 mls/hr
[2022-12-26 10:19] LABS: SARS-CoV-2 RNA PCR Negative (Negative)
[2022-12-26] MEDS: oxyCODONE HCL (*CRX) 5 MG TAB IR 10 MG PO (10:23)
[2022-12-26] MEDS: levETIRAcetam 500 MG TABLET PO (10:23)
== END 2022-12-26 13:20 | DRG 617 ==
LOC: ANHED 12-22 02:37 → ANH3MEDSUR 12-22 03:45
PROVIDERS: Internal Medicine Nephrology; Orthopaedic Surgery; Admitting Provider Family Medicine; Emergency Provider Emergency Medicine; PCP Family Medicine Adolescent Medicine; Visit Provider General Practice
PROC: 0Y6Q0Z0 Detachment at Left 1st Toe, Complete, Open Approach (ICD-10-PCS; principal; 2022-12-23 14:00)
DX: F33.1 Major depressive disorder, recurrent, moderate; E11.621 Type 2 diabetes mellitus with foot ulcer; M86.172 Other acute osteomyelitis, left ankle and foot; K50.90 Crohn's disease, unspecified, without complications; N39.0 Urinary tract infection, site not specified; I12.0 Hypertensive chronic kidney disease with stage 5 chronic kidney disease or end stage renal disease; N18.6 End stage renal disease; L97.524 Non-pressure chronic ulcer of other part of left foot with necrosis of bone; B95.1 Streptococcus, group B, as the cause of diseases classified elsewhere; S00.93XA Contusion of unspecified part of head, initial encounter; W18.30XA Fall on same level, unspecified, initial encounter; D63.1 Anemia in chronic kidney disease; E78.00 Pure hypercholesterolemia, unspecified; E03.9 Hypothyroidism, unspecified; E11.22 Type 2 diabetes mellitus with diabetic chronic kidney disease; E11.51 Type 2 diabetes mellitus with diabetic peripheral angiopathy without gangrene; E11.43 Type 2 diabetes mellitus with diabetic autonomic (poly)neuropathy; F41.1 Generalized anxiety disorder; F03.90 Unspecified dementia, unspecified severity, without behavioral disturbance, psychotic disturbance, mood disturbance, and anxiety; G47.33 Obstructive sleep apnea (adult) (pediatric); G25.81 Restless legs syndrome; I25.10 Atherosclerotic heart disease of native coronary artery without angina pectoris; K21.9 Gastro-esophageal reflux disease without esophagitis; Z99.2 Dependence on renal dialysis; Z66 Do not resuscitate; Z85.528 Personal history of other malignant neoplasm of kidney; Z20.822 Contact with and (suspected) exposure to COVID-19; Z79.82 Long term (current) use of aspirin; Z79.84 Long term (current) use of oral hypoglycemic drugs; Z89.422 Acquired absence of other left toe(s); Z89.421 Acquired absence of other right toe(s); Z90.49 Acquired absence of other specified parts of digestive tract; Z90.710 Acquired absence of both cervix and uterus; Z90.5 Acquired absence of kidney; Z95.5 Presence of coronary angioplasty implant and graft; Z86.16 Personal history of COVID-19; Z87.891 Personal history of nicotine dependence
CPT/HCPCS: 36415; 70450; 70486; 72125; 73630; 80048; 80053; 81001; 82550; 82948; 83036; 83605; 83735; 84100; 85025; 86706; 87040; 87077; 87086; 87088; 87340; 87635; 87637; 88305; 88311; 97110; 97116; 97161; 97164; 97166; 99285; A9270; G0257; J0690; J1644; J1956; J2405; J2704; J3010; J7030; J7040; P9047; Q5105

== ENCOUNTER 2023-01-13 07:16 | Outpatient (RCR) | payer OTHER, MEDICARE, SELFPAY ==
[2022-12-09 09:21] VITALS: BMI 25.8
--- NOTE | 2022-12-09 09:52 | PM.IMHP ---
H&P: HPI History of Present Illness Date/Time: 12/09/22 09:52 Chief Complaint: Bilateral foot ulcers Narrative: 77-year-old female presents to the [place] wound clinic today for evaluation of bilateral foot ulcers. She was previously seen in the outpatient orthopedic clinic by Dr. Laureano and was referred to the Wound Clinic for frequent wound care and monitoring of her foot wounds. She is currently awaiting ROM and TBI which are to be performed in January. Dr. Hill has previously discussed possible need for TMA due to poor blood flow to the digits of bilateral feet. Review of Systems Review of Systems: All systems reviewed & are unremarkable except as noted in HPI and below PMFSH Past Medical History Medical History Acute respiratory failure Anemia of chronic disease Callus of foot Coronary artery disease History of stent x3. COVID-19 virus infection Crohn's disease Diet-controlled diabetes mellitus A1c was 7.0 in 10/2018 and 4.8 in 01/2020. End-stage renal disease on hemodialysis Erythropoietin deficiency anemia Gastroesophageal reflux disease History of kidney stones Hypothyroidism Normal colonoscopy (08/2019) Obstructive sleep apnea No longer using CPAP after 40 lb weight loss. Pericardial effusion (01/2020) Small pericardial effusion on echocardiogram, felt to be related to uremia. Peripheral autonomic neuropathy due to diabetes mellitus Peripheral vascular disease Peritonitis (01/2020) Pneumonia Renal cell carcinoma (2004) Renal osteodystrophy Restless leg syndrome Shingles (1991) Wound of right foot Surgical History Surgical History Amputation toe Left 2nd toe. History of appendectomy History of bilateral carpal tunnel release History of cardiac catheterization With stent x3. History of cholecystectomy History of colonoscopy History of complete ray amputation of second toe of left foot History of complete ray amputation of second toe of right foot History of cystoscopy With ureteral stents for kidney stones. History of foot surgery Repair of left foot fracture with pinning. History of hysterectomy (1976) With cystocele and rectocele repairs. History of partial nephrectomy (2004) Left partial nephrectomy for kidney cancer. History of tonsillectomy Family History Family History Father Renal cell carcinoma Acute myocardial infarction Cerebrovascular accident Colon polyp Heart disease Hypertension Mother Lung cancer Acute myocardial infarction Cerebrovascular accident Depression Heart disease Hypertension Son Asthma Social History Social History Social History: Surrogate medical decision maker: Dong Maher, son. Code status: DNR Smoking packs per day: 1 Smoking cigarettes per day: 20.0 Years smoked: 20 Smoking pack-years: 20.00 Smoking status: Former smoker Tobacco type: cigarettes Second hand tobacco smoke exposure: Yes Alcohol intake: never Substance use: never Substance use type: does not use Lack of Transportation: No Lack of Food: Never True Current Housing: I Have Housing Concerned About Future Housing: No Difficulty Paying Gas/Electric Bills: No Difficulty Paying for Meds: No Currently Unemployed: No Education: Don't Know Difficulty w/ Childcare or Family Care: No Living arrangements: alone Additional living arrangements comments: , lives in [place]. 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 Spiritual care concerns: No Agree to blood products: Yes Meds Home Medications and Allergies Home Medications Medication Instructions Recorded Confirmed Type sertraline 100 mg tablet 100 mg PO DAILY #90 tabs 09
--- NOTE | 2022-12-19 08:59 | PM.IMHP ---
H&P: HPI History of Present Illness Date/Time: 12/19/22 08:59 Chief Complaint: Bilateral foot ulcers Narrative: 77-year-old female presents to the [place] wound clinic today for evaluation of bilateral foot ulcers. She was previously seen in the outpatient orthopedic clinic by Dr. Moran and was referred to the Wound Clinic for frequent wound care and monitoring of her foot wounds. She is currently awaiting ROM and TBI which are to be performed in January. Dr. Moran has previously discussed possible need for TMA due to poor blood flow to the digits of bilateral feet. Review of Systems Review of Systems: All systems reviewed & are unremarkable except as noted in HPI and below PMFSH Past Medical History Medical History Acute respiratory failure Anemia of chronic disease Callus of foot Coronary artery disease History of stent x3. COVID-19 virus infection Crohn's disease Diet-controlled diabetes mellitus A1c was 7.0 in 10/2018 and 4.8 in 01/2020. End-stage renal disease on hemodialysis Erythropoietin deficiency anemia Gastroesophageal reflux disease History of kidney stones Hypothyroidism Normal colonoscopy (08/2019) Obstructive sleep apnea No longer using CPAP after 40 lb weight loss. Pericardial effusion (01/2020) Small pericardial effusion on echocardiogram, felt to be related to uremia. Peripheral autonomic neuropathy due to diabetes mellitus Peripheral vascular disease Peritonitis (01/2020) Pneumonia Renal cell carcinoma (2004) Renal osteodystrophy Restless leg syndrome Shingles (1991) Wound of right foot Surgical History Surgical History Amputation toe Left 2nd toe. History of appendectomy History of bilateral carpal tunnel release History of cardiac catheterization With stent x3. History of cholecystectomy History of colonoscopy History of complete ray amputation of second toe of left foot History of complete ray amputation of second toe of right foot History of cystoscopy With ureteral stents for kidney stones. History of foot surgery Repair of left foot fracture with pinning. History of hysterectomy (1976) With cystocele and rectocele repairs. History of partial nephrectomy (2004) Left partial nephrectomy for kidney cancer. History of tonsillectomy Family History Family History Father Renal cell carcinoma Acute myocardial infarction Cerebrovascular accident Colon polyp Heart disease Hypertension Mother Lung cancer Acute myocardial infarction Cerebrovascular accident Depression Heart disease Hypertension Son Asthma Social History Social History Social History: Surrogate medical decision maker: Dong Maher, son. Code status: DNR Smoking packs per day: 1 Smoking cigarettes per day: 20.0 Years smoked: 20 Smoking pack-years: 20.00 Smoking status: Former smoker Tobacco type: cigarettes Second hand tobacco smoke exposure: Yes Alcohol intake: never Substance use: never Substance use type: does not use Lack of Transportation: No Lack of Food: Never True Current Housing: I Have Housing Concerned About Future Housing: No Difficulty Paying Gas/Electric Bills: No Difficulty Paying for Meds: No Currently Unemployed: No Education: Don't Know Difficulty w/ Childcare or Family Care: No Living arrangements: alone Additional living arrangements comments: , lives in [place]. 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 Spiritual care concerns: No Agree to blood products: Yes Meds Home Medications and Allergies Home Medications Medication Instructions Recorded Confirmed Type aspirin 325 mg tablet 325 mg PO DAILY 12/26/2112/10/
--- NOTE | 2023-01-13 08:57 | PM.PNORT ---
Progress Note: A&P Assessment and Plan (1) Osteomyelitis of toe of left foot: Code(s): M86.9 - Osteomyelitis, unspecified Status: Acute Assessment and Plan: 3 weeks s/p Left Hallux Amputation Sutures removed. Incision well approximated. Small abrasion. Okay to apply silver gel and band-aid daily. Follow up as needed. Subjective Subjective Date/Time Seen: 01/13/23 08:57 Interval history: 3 weeks s/p left hallux amputation. No new concerns. Review of Systems Review of Systems: All systems reviewed & are unremarkable except as noted in HPI and below Exam Const: General: cooperative and average body habitus Nutritional Appearance: average body habitus Orientation/consciousness: patient oriented x3 Limitations: no limitations HENMT: Head: normal to inspection Ears: hearing grossly normal bilaterally Face/Nose/Sinus: Normal external nose present and normal facial exam Face and sinus: normal facial exam Mouth: Yes moist mucous membranes Teeth and gingiva: dentition normal Eyes: General: appearance normal, both eyes and all related structures Pupils: Equal, round and reactive pupils present EOM: EOMs intact bilaterally Neck: Neck: normal visual inspection Chest: Chest palpation & inspection: normal inspection of the chest Resp: Effort & Inspection: normal respiratory effort and able to speak in complete sentences Cardio: Jugular venous distension: no JVD Neuro: General: patient oriented x3 Cranial nerves: Yes Equal, round and reactive pupils present Extrem: Other: Left Hallux amputation with incision well approximated. Sutures removed. No open wounds. Small abraison. Psych: Mental Status: mental status grossly normal Objective Data Meds/Results Medications: Active Medications Generic Name Dose Route Start Last Admin Trade Name Freq PRN Reason Stop Dose Admin Silver Nitrate 1 applic 12/09/22 14:11 Silvergel (Elta) 45 Ml TOPICAL 03/10/23 23:59 PRN PRN Wound Care Wound Care/Dressing Products 1 each 12/09/22 14:11 Foam Bandage (Mepilex 4x4) Bandage TOPICAL 03/10/23 23:55 PRN PRN Wound Care
== END 2023-02-23 10:06 | disposition home or self-care (01) ==
LOC: ANHWOC 07:16
PROVIDERS: PCP Family Medicine Adolescent Medicine; Visit Provider Nurse Practitioner Family
DX: L97.419 Non-pressure chronic ulcer of right heel and midfoot with unspecified severity (principal); L97.529 Non-pressure chronic ulcer of other part of left foot with unspecified severity; E11.621 Type 2 diabetes mellitus with foot ulcer; E11.43 Type 2 diabetes mellitus with diabetic autonomic (poly)neuropathy; L84 Corns and callosities; S98.139D Complete traumatic amputation of one unspecified lesser toe, subsequent encounter; R41.82 Altered mental status, unspecified; Z86.73 Personal history of transient ischemic attack (TIA), and cerebral infarction without residual deficits
CPT/HCPCS: 99213; G0463

== ENCOUNTER 2023-06-03 06:52 | Emergency (ER) | payer MEDICARE, SELFPAY ==
[2023-06-03] VITALS (7 sets, daily range): BP systolic 121–147; BP diastolic 48–58; PULSE 72–82; RESP 12–22; TEMP 37.1; O2SAT 93–97
--- NOTE | ~2023-06-03 | XR_ITS ---
EXAMINATION: XR lumbar spine 2-3V DATE: 06/03/2023 11:08 INDICATION: Low back pain TECHNIQUE: Anteroposterior and lateral views of the lumbar spine, and cone-down lateral view of the l umbosacral junction were obtained. COMPARISON: 02/18/2022 FINDINGS: Alignment is normal. Vertebral body heights are normal. Moderate disc height loss at L4-L5 and at T10 -T11 through T12-L1. Mild disc height loss at L3-4. Severe lower lumbar facet osteoarthritis. Moderat e bilateral sacroiliac osteoarthritis. Cholecystectomy clips in the right upper quadrant. Atheroscler otic abdominal aorta and left renal artery stenting. IMPRESSION: 1. Moderate lumbar and lower thoracic spondylosis. Reviewed, dictated and finalized at location A.
--- NOTE | ~2023-06-03 | CT_ITS ---
Non-contrast Head CT History: Head trauma COMPARISON: 12/21/2022 Technique: Axial non-contrast imaging of the brain was performed. Dose reduction technique was used on this scan by utilizing automated exposure control and iterative reconstruction technique. The dose -length product (DLP) was 908.00 mGy-cm. Findings: There is no evidence of intracranial hemorrhage, mass lesion, or acute infarct. Chronic ri ght parietal infarct noted.. The ventricles and subarachnoid spaces are normal in size. The calvari um appears normal. The visualized paranasal sinuses and mastoid air cells are clear. Impression: No acute abnormality seen. Stable chronic right parietal infarct. Reviewed, dictated and finalized at location . Impression: No acute abnormality seen. Stable chronic right parietal infarct.
--- NOTE | 2023-06-03 07:12 | PC.NURSE ---
BSSR given to DINORAH Urbina and DINORAH Lal at this time. Pt resting comfortably in bed.
--- NOTE | 2023-06-03 07:23 | ECG_ITS ---
Measurements Intervals [place] Rate: 76 P: 10 NE: 220 QRS: -47 QRSD: 96 T: 59 QT: 443 QTc: 499 Interpretive Statements SINUS RHYTHM WITH FIRST DEGREE AV BLOCK LEFT ANTERIOR FASCICULAR BLOCK BASELINE ARTIFACT- I, III, AVR, AVL, V5 ABNORMAL ECG COMPARED TO ECG 11/04/2022 08:18:57 FIRST DEGREE AV BLOCK NOW PRESENT Electronically Signed On 06-03-2023 10:11:18 CDT by Brennen Keenan D.O.
--- NOTE | 2023-06-03 07:36 | ED.FALL ---
HPI - Fall General Chief Complaint: Fall Stated Complaint: fall Time Seen by Provider: 06/03/23 08:08 History of Present Illness HPI Narrative: Pt says she fell and could not get herself up. Pt denies injury but thinks she did hit head. Pt is dialysis pt and had dialysis yesterday. Pt unsure when she fell. Pt has no specific complaints. Related Data Allergies Allergy/AdvReac Type Severity Reaction Status Date / Time cortisone Allergy Intermediate Dyspnea / Verified 06/03/23 07:02 SOB Penicillins Allergy Intermediate Dyspnea / Verified 06/03/23 07:02 SOB ceftriaxone [From Rocephin] Allergy Difficulty Verified 06/03/23 07:02 Breathing Review of Systems Review of Systems: All systems reviewed & are unremarkable except as noted in HPI and below PMFSH Past Medical History Medical History Acute respiratory failure Anemia of chronic disease Callus of foot Coronary artery disease History of stent x3. COVID-19 virus infection Crohn's disease Diet-controlled diabetes mellitus A1c was 7.0 in 10/2018 and 4.8 in 01/2020. End-stage renal disease on hemodialysis Erythropoietin deficiency anemia Gastroesophageal reflux disease History of kidney stones Hypothyroidism Normal colonoscopy (08/2019) Obstructive sleep apnea No longer using CPAP after 40 lb weight loss. Pericardial effusion (01/2020) Small pericardial effusion on echocardiogram, felt to be related to uremia. Peripheral autonomic neuropathy due to diabetes mellitus Peripheral vascular disease Peritonitis (01/2020) Pneumonia Renal cell carcinoma (2004) Renal osteodystrophy Restless leg syndrome Shingles (1991) Wound of right foot Surgical History Surgical History Amputation toe Left 2nd toe. History of appendectomy History of bilateral carpal tunnel release History of cardiac catheterization With stent x3. History of cholecystectomy History of colonoscopy History of complete ray amputation of second toe of left foot History of complete ray amputation of second toe of right foot History of cystoscopy With ureteral stents for kidney stones. History of foot surgery Repair of left foot fracture with pinning. History of hysterectomy (1976) With cystocele and rectocele repairs. History of partial nephrectomy (2004) Left partial nephrectomy for kidney cancer. History of tonsillectomy Family History Family History Father Renal cell carcinoma Acute myocardial infarction Cerebrovascular accident Colon polyp Heart disease Hypertension Mother Lung cancer Acute myocardial infarction Cerebrovascular accident Depression Heart disease Hypertension Son Asthma Social History Social History Social History: Surrogate medical decision maker: Dong Maher, son. Code status: DNR Smoking packs per day: 1 Smoking cigarettes per day: 20.0 Years smoked: 20 Smoking pack-years: 20.00 Smoking status: Never smoker Tobacco type: cigarettes Second hand tobacco smoke exposure: Yes Alcohol intake: never Substance use: never Lack of Transportation: No Lack of Food: Never True Current Housing: I Have Housing Concerned About Future Housing: No Difficulty Paying Gas/Electric Bills: No Difficulty Paying for Meds: No Currently Unemployed: No Education: Don't Know Difficulty w/ Childcare or Family Care: No Living arrangements: alone Additional living arrangements comments: , lives in [place]. 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 Spiritual care concerns: No Agree to blood products: Yes Exam Const: General: healthy appearing, no acute distress and alert Orientation/consciousness: p
[2023-06-03 07:55] LABS: Basophils Percent Auto 0.4 % (0.2-1.2); Eosinophils Absolute Auto 0.1 K/mm3 (0-0.3); Eosinophils Percent Auto 0.9 % (0-4.4); Hematocrit 35.5 % (37.0-47.0); Hemoglobin 11.1 g/dL (12.0-15.0); Immature Granulocyte Percent A 1.2 % (0-0.5); Lymphocytes Percent Auto 10.6 % (18.3-44.2); Mean Corpuscular HGB Conc 31.3 g/dl (32-36); Mean Corpuscular Volume 95.9 fl (80-100); Monocytes Absolute Auto 0.8 K/mm3 (0.1-0.6); Monocytes Percent Auto 9.6 % (2.6-8.5); Neutrophils Absolute Auto 6.6 K/mm3 (1.3-6.7); Neutrophils Percent Auto 77.3 % (45.5-73.1); Platelet Count Result 232 k/mm3 (150-375); Red Cell Distribution Width 15.9 % (11.5-14.5); White Blood Count 8.5 K/mm3 (4.5-10.0)
[2023-06-03 08:06] LABS: Prothrombin Time 14.1 Seconds (11.1-14.7)
[2023-06-03 08:07] LABS: Partial Thromboplastin Time 30.4 Seconds (22.3-36.8)
[2023-06-03 08:18] LABS: Alanine Aminotransferase 23 U/L (6-35); Albumin Level 3.7 g/dL (3.5-5.1); Alkaline Phosphatase 111 U/L (38-126); Aspartate Amino Transferase 36 U/L (14-36); Bilirubin,Total 0.7 mg/dL (0.2-1.3); Blood Urea Nitrogen 26 mg/dL (7-17); Calcium 8.8 mg/dL (8.4-10.2); Carbon Dioxide > 40 mmol/L (22-30); Chloride 93 mmol/L (98-107); Estimated CRCL calculation 7 ml/min; Estimated Glomerular Filt Rate 7; Glucose 115 mg/dL (65-110); Potassium 3.6 mmol/L (3.4-5.0); Sodium 139 mmol/L (137-145)
--- NOTE | 2023-06-03 08:43 | PCRCNOTE ---
Attempted ABG one time; Pt. refused to be stuck again. O2 sat is currently 97% on room air. Dr. Saldana notified.
[2023-06-03] MEDS: MORPHINE SULFATE (*CRX) 2 MG/ML INJ 1 MG IV PUSH (11:09)
== END 2023-06-03 14:16 | disposition home or self-care (01) ==
PROVIDERS: Emergency Provider Emergency Medicine; PCP Family Medicine Adolescent Medicine
DX: M54.50 Low back pain, unspecified (principal); W19.XXXA Unspecified fall, initial encounter; I25.10 Atherosclerotic heart disease of native coronary artery without angina pectoris; K50.90 Crohn's disease, unspecified, without complications; N18.6 End stage renal disease; Z99.2 Dependence on renal dialysis; E03.9 Hypothyroidism, unspecified; G47.33 Obstructive sleep apnea (adult) (pediatric); Z85.53 Personal history of malignant neoplasm of renal pelvis; Z89.422 Acquired absence of other left toe(s)
CPT/HCPCS: 36415; 70450; 72100; 80053; 85025; 85610; 85730; 93005; 96374; 99284; J2270

== ENCOUNTER 2023-07-21 05:02 | Emergency (ER) | payer OTHER, MEDICARE, SELFPAY ==
--- NOTE | ~2023-07-21 | XR_ITS ---
Right foot Technique: AP, oblique, and lateral views were obtained. Clinical History: Pain COMPARISON: 11/27/2022 Findings: There is a probable acute, transverse fracture of the distal portion of the fourth proximal phalanx, nondisplaced. Prior ORIF of the fifth metatarsal is unchanged. Osseous alignment is anatomi c. Joint spaces are preserved without erosive or degenerative change. Soft tissues are unremarkable. Impression: Acute transverse, nondisplaced fracture the distal aspect of the fourth proximal phalanx. Stable prior ORIF of the fifth metatarsal. Reviewed, dictated and finalized at location . Impression: Acute transverse, nondisplaced fracture the distal aspect of the fourth proxima l phalanx. Stable prior ORIF of the fifth metatarsal.
[2023-07-21 05:03] VITALS: BP 146/60; PULSE 77; RESP 16; TEMP 36.5; O2SAT 100
--- NOTE | 2023-07-21 08:18 | PC.NURSE ---
updated [facility].
--- NOTE | 2023-07-21 08:29 | ED.GENADULT ---
HPI - General Adult General Chief complaint: Extremity Injury, Lower Stated complaint: R foot injury Time Seen by Provider: 07/21/23 06:54 History of Present Illness HPI narrative: 78-year-old female presented to the emergency department for evaluation right foot pain. Patient states she was walking back from the bathroom and had acute onset right foot pain. Patient denies any specific incident injury. Patient does have a prior fracture to that foot. Related Data Allergies Allergy/AdvReac Type Severity Reaction Status Date / Time cortisone Allergy Intermediate Dyspnea / Verified 06/17/23 12:41 SOB Penicillins Allergy Intermediate Dyspnea / Verified 06/17/23 12:41 SOB ceftriaxone [From Rocephin] Allergy Difficulty Verified 06/17/23 12:41 Breathing Review of Systems Review of Systems: All systems reviewed & are unremarkable except as noted in HPI and below PMFSH Past Medical History Medical History Acute respiratory failure Anemia of chronic disease Callus of foot Coronary artery disease History of stent x3. COVID-19 virus infection Crohn's disease Diet-controlled diabetes mellitus A1c was 7.0 in 10/2018 and 4.8 in 01/2020. End-stage renal disease on hemodialysis Erythropoietin deficiency anemia Gastroesophageal reflux disease History of kidney stones Hypothyroidism Normal colonoscopy (08/2019) Obstructive sleep apnea No longer using CPAP after 40 lb weight loss. Pericardial effusion (01/2020) Small pericardial effusion on echocardiogram, felt to be related to uremia. Peripheral autonomic neuropathy due to diabetes mellitus Peripheral vascular disease Peritonitis (01/2020) Pneumonia Renal cell carcinoma (2004) Renal osteodystrophy Restless leg syndrome Shingles (1991) Wound of right foot Surgical History Surgical History Amputation toe Left 2nd toe. History of appendectomy History of bilateral carpal tunnel release History of cardiac catheterization With stent x3. History of cholecystectomy History of colonoscopy History of complete ray amputation of second toe of left foot History of complete ray amputation of second toe of right foot History of cystoscopy With ureteral stents for kidney stones. History of foot surgery Repair of left foot fracture with pinning. History of hysterectomy (1976) With cystocele and rectocele repairs. History of partial nephrectomy (2004) Left partial nephrectomy for kidney cancer. History of tonsillectomy Family History Family History Father Renal cell carcinoma Acute myocardial infarction Cerebrovascular accident Colon polyp Heart disease Hypertension Mother Lung cancer Acute myocardial infarction Cerebrovascular accident Depression Heart disease Hypertension Son Asthma Social History Social History Social History: Surrogate medical decision maker: Dong Maher, son. Code status: DNR Smoking packs per day: 1 Smoking cigarettes per day: 20.0 Years smoked: 20 Smoking pack-years: 20.00 Smoking status: Never smoker Tobacco type: cigarettes Second hand tobacco smoke exposure: Yes Alcohol intake: never Substance use: never Lack of Transportation: No Lack of Food: Never True Current Housing: I Have Housing Concerned About Future Housing: No Difficulty Paying Gas/Electric Bills: No Difficulty Paying for Meds: No Currently Unemployed: No Education: Don't Know Difficulty w/ Childcare or Family Care: No Living arrangements: alone Additional living arrangements comments: , lives in [place]. 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 Spiritual care concerns: No Agree to blood produc
[2023-07-21] MEDS: ACETAMINOPHEN 325 MG TABLET 650 MG PO (08:42)
--- NOTE | 2023-07-21 09:07 | PC.NURSE ---
attempted to call [facility]. no answer. left voicemail with call back number for any questions.
== END 2023-07-21 09:10 ==
PROVIDERS: Emergency Provider Emergency Medicine; PCP Family Medicine Adolescent Medicine
DX: S92.534A Nondisplaced fracture of distal phalanx of right lesser toe(s), initial encounter for closed fracture (principal); D64.9 Anemia, unspecified; I25.10 Atherosclerotic heart disease of native coronary artery without angina pectoris; K21.9 Gastro-esophageal reflux disease without esophagitis; Z87.442 Personal history of urinary calculi; G25.81 Restless legs syndrome; G47.30 Sleep apnea, unspecified; N18.6 End stage renal disease; Z99.2 Dependence on renal dialysis; X58.XXXA Exposure to other specified factors, initial encounter
CPT/HCPCS: 73630; 99284; A9270

== ENCOUNTER 2023-08-18 12:23 | Emergency (ER) | payer OTHER, MEDICARE, SELFPAY ==
[2023-08-18] VITALS (16 sets, daily range): BP systolic 73–152; BP diastolic 42–70; PULSE 67–76; RESP 12–19; TEMP 36.6; O2SAT 88–100
--- NOTE | ~2023-08-18 | XR_ITS ---
EXAMINATION: XR chest 2V DATE: 08/18/2023 13:20 INDICATION: Weakness. Dizziness. TECHNIQUE: Frontal and lateral views of the chest were obtained. COMPARISON: Chest single view 11/04/2022 FINDINGS: There is mild atelectasis in the lower lung zones. No pleural effusion or pneumothorax. Car diomegaly is noted. Surgical clips in the right upper quadrant are likely from cholecystectomy. IMPRESSION: 1. Mild atelectasis in the lower lung zones. 2. Cardiomegaly. Reviewed, dictated and finalized at location A.
--- NOTE | 2023-08-18 12:34 | ECG_ITS ---
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 Measurements Intervals [place] Rate: 68 P: -77 MN: 152 QRS: -45 QRSD: 85 T: 59 QT: 450 QTc: 480 Interpretive Statements ECTOPIC ATRIAL RHYTHM LEFT ANTERIOR FASCICULAR BLOCK [QRS AXIS <= -45, QR IN I, RS IN II] No previous ECG available for comparison Electronically Signed On 08-18-2023 14:28:12 CDT by Mark Kaur M.D.
[2023-08-18 12:56] LABS: Basophils Percent Auto 0.2 % (0.2-1.2); Eosinophils Absolute Auto 0.3 K/mm3 (0-0.3); Eosinophils Percent Auto 3.1 % (0-4.4); Hematocrit 36.6 % (37.0-47.0); Hemoglobin 11.6 g/dL (12.0-15.0); Immature Granulocyte Absolute 0.08 K/mm3 (0.00-0.031); Immature Granulocyte Percent A 0.7 % (0-0.5); Lymphocytes Percent Auto 13.1 % (18.3-44.2); Mean Corpuscular HGB Conc 31.7 g/dl (32-36); Mean Corpuscular Hemoglobin 30.4 pg (26-34); Mean Corpuscular Volume 95.8 fl (80-100); Mean Platelet Volume 9.5 fl (7.4-10.4); Monocytes Percent Auto 9.6 % (2.6-8.5); Neutrophils Absolute Auto 7.8 K/mm3 (1.3-6.7); Neutrophils Percent Auto 73.3 % (45.5-73.1); Platelet Count Result 233 k/mm3 (150-375); Red Blood Count 3.82 M/mm3 (4.2-5.4); Red Cell Distribution Width 15.9 % (11.5-14.5); White Blood Count 10.7 K/mm3 (4.5-10.0)
[2023-08-18 13:06] LABS: Alanine Aminotransferase 15 U/L (6-35); Albumin Level 4.1 g/dL (3.5-5.1); Alkaline Phosphatase 152 U/L (38-126); Anion Gap 14 mmol/L (4-12); Aspartate Amino Transferase 18 U/L (14-36); Bilirubin,Total 0.7 mg/dL (0.2-1.3); Blood Urea Nitrogen 44 mg/dL (7-17); Calcium 8.5 mg/dL (8.4-10.2); Carbon Dioxide 30 mmol/L (22-30); Chloride 96 mmol/L (98-107); Estimated Glomerular Filt Rate 4; Glucose 232 mg/dL (65-110); Potassium 3.7 mmol/L (3.4-5.0); Sodium 140 mmol/L (137-145)
[2023-08-18] MEDS: SODIUM CHLORIDE 0.9% IV 500 ML 999 ML IV CONT (14:41)
--- NOTE | 2023-08-18 15:20 | ED.DIZZY ---
HPI - Dizziness General Chief Complaint: Dizziness Stated Complaint: dizzy, missed dialysis Time Seen by Provider: 08/18/23 13:26 Source: patient Mode of arrival: EMS Limitations: no limitations History of Present Illness HPI Narrative: 78-year-old with a history of [place] ESRD on hemodialysis here with complaints of dizziness since this morning. Patient states that for past few days she has not been eating or drinking enough. She states occasionally she gets nauseated which is been ongoing issue for past several years. This morning she felt dizzy and has decided not to go to the dialysis. She presently denies any headache, chest pain no shortness of breath or abdominal pain. MD elicited complaint: dizziness Exacerbating factors: nothing Relieving factors: nothing Associated symptoms: denies other symptoms Related Data Allergies Allergy/AdvReac Type Severity Reaction Status Date / Time cortisone Allergy Intermediate Dyspnea / Verified 08/18/23 12:39 SOB Penicillins Allergy Intermediate Dyspnea / Verified 08/18/23 12:39 SOB ceftriaxone [From Rocephin] Allergy Difficulty Verified 08/18/23 12:39 Breathing Review of Systems Review of Systems: All systems reviewed & are unremarkable except as noted in HPI and below Constitutional: Constitutional: Reports no additional constitutional complaints Eyes: Eyes: Reports no additional eye complaints ENT: Reports system reviewed and no additional complaints, except as documented Cardiovascular: Cardiovascular: Reports no additional cardiovascular complaints Respiratory: Respiratory: Reports no additional respiratory complaints Gastrointestinal: Gastrointestinal: Reports no additional gastrointestinal complaints Musculoskeletal: Musculoskeletal: Reports no additional musculoskeletal complaints Integumentary/Breasts: Skin/Breast: Reports system reviewed and no additional complaints, except as docu Neurologic: Reports system reviewed and no additional complaints, except as documented [facility] Past Medical History Medical History Acute respiratory failure Anemia of chronic disease Callus of foot Coronary artery disease History of stent x3. COVID-19 virus infection Crohn's disease Diet-controlled diabetes mellitus A1c was 7.0 in 10/2018 and 4.8 in 01/2020. End-stage renal disease on hemodialysis Erythropoietin deficiency anemia Gastroesophageal reflux disease History of kidney stones Hypothyroidism Normal colonoscopy (08/2019) Obstructive sleep apnea No longer using CPAP after 40 lb weight loss. Pericardial effusion (01/2020) Small pericardial effusion on echocardiogram, felt to be related to uremia. Peripheral autonomic neuropathy due to diabetes mellitus Peripheral vascular disease Peritonitis (01/2020) Pneumonia Renal cell carcinoma (2004) Renal osteodystrophy Restless leg syndrome Shingles (1991) Wound of right foot Surgical History Surgical History Amputation toe Left 2nd toe. History of appendectomy History of bilateral carpal tunnel release History of cardiac catheterization With stent x3. History of cholecystectomy History of colonoscopy History of complete ray amputation of second toe of left foot History of complete ray amputation of second toe of right foot History of cystoscopy With ureteral stents for kidney stones. History of foot surgery Repair of left foot fracture with pinning. History of hysterectomy (1976) With cystocele and rectocele repairs. History of partial nephrectomy (2004) Left partial nephrectomy for kidney cancer. History of tonsillectomy Family History Family History Father Renal cell carcinoma Acute myocardial infarction Cerebrovascular accident Colon polyp Heart disease Hypertension Mother Lung cancer Acute myocardial infarction Cerebrovascula
== END 2023-08-18 15:38 ==
PROVIDERS: Emergency Provider Family Medicine; PCP Family Medicine Adolescent Medicine
DX: R42 Dizziness and giddiness (principal); N18.6 End stage renal disease; E11.22 Type 2 diabetes mellitus with diabetic chronic kidney disease; E86.1 Hypovolemia; D63.1 Anemia in chronic kidney disease; Z99.2 Dependence on renal dialysis; I25.10 Atherosclerotic heart disease of native coronary artery without angina pectoris; E11.51 Type 2 diabetes mellitus with diabetic peripheral angiopathy without gangrene; I73.9 Peripheral vascular disease, unspecified; E11.43 Type 2 diabetes mellitus with diabetic autonomic (poly)neuropathy; E03.9 Hypothyroidism, unspecified; K50.90 Crohn's disease, unspecified, without complications; K21.9 Gastro-esophageal reflux disease without esophagitis; G47.33 Obstructive sleep apnea (adult) (pediatric); F17.210 Nicotine dependence, cigarettes, uncomplicated; Z66 Do not resuscitate; Z95.5 Presence of coronary angioplasty implant and graft; Z87.442 Personal history of urinary calculi; Z90.49 Acquired absence of other specified parts of digestive tract; Z89.422 Acquired absence of other left toe(s); Z89.421 Acquired absence of other right toe(s); Z90.710 Acquired absence of both cervix and uterus; Z90.5 Acquired absence of kidney; I44.4 Left anterior fascicular block; Z79.899 Other long term (current) drug therapy
CPT/HCPCS: 36415; 71046; 80053; 85025; 93005; 96360; 99284; J7040

== ENCOUNTER 2023-09-09 18:49 | Emergency (ER) | payer OTHER, MEDICARE, SELFPAY ==
--- NOTE | ~2023-09-09 | US_ITS ---
EXAMINATION: US venous doppler UE LT DATE: 09/09/2023 21:06 INDICATION: swelling av fistual eval for thrombus . TECHNIQUE: Grayscale ultrasound images without and with compression and Doppler ultrasound images of the left upper extremity veins were obtained. COMPARISON: None. FINDINGS: The visualized portions of the left internal jugular vein, subclavian vein, axillary vein, brachial v eins, basilic vein, cephalic vein, radial vein, and ulnar vein are patent. Fusiform dilation of the p roximal brachiocephalic fistula to 2.4 cm. IMPRESSION: No deep venous thrombosis. 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 No stenosis or thrombus detect ed in the fistula. Reviewed, dictated and finalized at location K. IMPRESSION: No deep venous thrombosis. 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 No steno sis or thrombus detected in the fistula.
[2023-09-09 18:53] VITALS: BP 104/49; PULSE 55; RESP 16; TEMP 36.3; O2SAT 93
--- NOTE | 2023-09-09 20:35 | ED.GENADULT ---
HPI - General Adult General Chief complaint: Unspecified Stated complaint: HD ACCESS SWELLING LAST HD YESTERDAY Time Seen by Provider: 09/09/23 20:05 History of Present Illness HPI narrative: Patient is a 78-year-old female who presents emergency department with chief complaint of swelling of her left arm AV fistula. The patient reports she is a dialysis patient goes to dialysis Thursday reports that she did normal dialysis yesterday patient reports that she has noticed that her dialysis access has been bruised and has been somewhat swollen the patient states that they did not have difficulty performing dialysis on her yesterday and reports that she still has a palpable thrill although it feels a little subdued compared to normally. Related Data Allergies Allergy/AdvReac Type Severity Reaction Status Date / Time cortisone Allergy Intermediate Dyspnea / Verified 08/26/23 08:53 SOB Penicillins Allergy Intermediate Dyspnea / Verified 08/26/23 08:53 SOB ceftriaxone [From Rocephin] Allergy Difficulty Verified 08/26/23 08:53 Breathing Review of Systems Review of Systems: A 10 system review of systems was completed on the patient and is negative except for what is stated in the HPI. Nursing and ancillary documentation was reviewed. [facility] Past Medical History Medical History Acute respiratory failure Anemia of chronic disease Callus of foot Coronary artery disease History of stent x3. COVID-19 virus infection Crohn's disease Diet-controlled diabetes mellitus A1c was 7.0 in 10/2018 and 4.8 in 01/2020. End-stage renal disease on hemodialysis Erythropoietin deficiency anemia Gastroesophageal reflux disease History of kidney stones Hypothyroidism Normal colonoscopy (08/2019) Obstructive sleep apnea No longer using CPAP after 40 lb weight loss. Osteomyelitis of toe of left foot Pericardial effusion (01/2020) Small pericardial effusion on echocardiogram, felt to be related to uremia. Peripheral autonomic neuropathy due to diabetes mellitus Peripheral vascular disease Peritonitis (01/2020) Pneumonia Renal cell carcinoma (2004) Renal osteodystrophy Restless leg syndrome Shingles (1991) Wound of right foot Surgical History Surgical History Amputation toe Left 2nd toe. History of appendectomy History of bilateral carpal tunnel release History of cardiac catheterization With stent x3. History of cholecystectomy History of colonoscopy History of complete ray amputation of second toe of left foot History of complete ray amputation of second toe of right foot History of cystoscopy With ureteral stents for kidney stones. History of foot surgery Repair of left foot fracture with pinning. History of hysterectomy (1976) With cystocele and rectocele repairs. History of partial nephrectomy (2004) Left partial nephrectomy for kidney cancer. History of tonsillectomy Family History Family History Father Renal cell carcinoma Acute myocardial infarction Cerebrovascular accident Colon polyp Heart disease Hypertension Mother Lung cancer Acute myocardial infarction Cerebrovascular accident Depression Heart disease Hypertension Son Asthma Social History Social History Social History: Surrogate medical decision maker: Dong Maher, son. Code status: DNR Smoking packs per day: 1 Smoking cigarettes per day: 20.0 Years smoked: 20 Smoking pack-years: 20.00 Smoking status: Never smoker Tobacco type: cigarettes Second hand tobacco smoke exposure: Yes Alcohol intake: never Substance use: never Lack of Transportation: No Lack of Food: Never True Current Housing: I Have Housing Concerned About Future Housing:
== END 2023-09-09 21:26 | disposition home or self-care (01) ==
PROVIDERS: Emergency Provider Emergency Medicine; PCP Family Medicine Adolescent Medicine
DX: R22.32 Localized swelling, mass and lump, left upper limb (principal); E11.22 Type 2 diabetes mellitus with diabetic chronic kidney disease; N18.6 End stage renal disease; Z99.2 Dependence on renal dialysis; D63.1 Anemia in chronic kidney disease; N25.0 Renal osteodystrophy; E11.43 Type 2 diabetes mellitus with diabetic autonomic (poly)neuropathy; E11.51 Type 2 diabetes mellitus with diabetic peripheral angiopathy without gangrene; I73.9 Peripheral vascular disease, unspecified; I25.10 Atherosclerotic heart disease of native coronary artery without angina pectoris; E03.9 Hypothyroidism, unspecified; K50.90 Crohn's disease, unspecified, without complications; K21.9 Gastro-esophageal reflux disease without esophagitis; G47.33 Obstructive sleep apnea (adult) (pediatric); G25.81 Restless legs syndrome; Z66 Do not resuscitate; Z95.5 Presence of coronary angioplasty implant and graft; Z86.16 Personal history of COVID-19; Z87.442 Personal history of urinary calculi; Z87.01 Personal history of pneumonia (recurrent); Z85.528 Personal history of other malignant neoplasm of kidney; Z87.891 Personal history of nicotine dependence; Z89.422 Acquired absence of other left toe(s); Z89.421 Acquired absence of other right toe(s); Z90.49 Acquired absence of other specified parts of digestive tract; Z90.710 Acquired absence of both cervix and uterus; Z90.5 Acquired absence of kidney; Z79.899 Other long term (current) drug therapy
CPT/HCPCS: 93971; 99284

== ENCOUNTER 2023-09-21 14:34 | Emergency (ER) | payer OTHER, MEDICARE, SELFPAY ==
--- NOTE | ~2023-09-21 | CT_ITS ---
EXAMINATION: CT hip RT wo con DATE: 09/21/2023 17:06 INDICATION: Right hip pain post fall TECHNIQUE: High resolution computed tomography (CT) of the right hip was performed without intravenou s contrast. Additional sagittal and coronal reconstructions were performed. Automated exposure contro l and iterative reconstruction technique were employed. The dose-length product was 331.03 mGy-cm. COMPARISON: None FINDINGS: Nondisplaced fracture of the right inferior pubic ramus. No other fractures identified. Alignment rem ains essentially anatomic. Chondrocalcinosis and mild osteoarthritis at the right hip with subarticul ar cystic change at both sides of the posterior aspect of the joint space. No right hip joint effusio n.. Moderate osteoarthritis at the right sacroiliac joint. Normal decompressed bladder. The uterus is not identified and has likely been surgically resected. Visualized portions of the bowels are unrema rkable. Mild stranding of the subcutaneous edema or contusion overlying the right greater trochanter. IMPRESSION: 1. Nondisplaced fracture of the right inferior pubic ramus. Reviewed, dictated and finalized at location A.
--- NOTE | ~2023-09-21 | CT_ITS ---
EXAMINATION: CT wrist RT wo con DATE: 09/21/2023 17:06 INDICATION: Right wrist pain. Fall. TECHNIQUE: Computed tomography (CT) of the right wrist was performed without intravenous contrast. Au tomated exposure control and iterative reconstruction technique were employed. The dose-length produc t was 786.47 mGy-cm. COMPARISON: Right wrist radiographs 09/21/2023 FINDINGS: There is a comminuted fracture of distal radius with involvement of the distal articular nova rface and distal radioulnar joint. The main distal fracture fragment demonstrates impaction and dorsa l angulation. There is 8 degrees dorsal tilt of the distal articular surface. Scapholunate dissociati on is noted. There is moderate osteoarthritis of radioscaphoid joint and scaphoid-capitate joint. The re is severe osteoarthritis of the scaphoid-trapezoid joint. Trapezium is absent. There is heterotopi c ossification in the area of trapezium. IMPRESSION: 1. Comminuted fracture of distal radius. 2. Scapholunate dissociation. 3. Polyarticular osteoarthritis. Reviewed, dictated and finalized at location E.
--- NOTE | ~2023-09-21 | XR_ITS ---
XR hip RT min 2V Ordering provider: Alex Goodwin MD History: . RIGHT HIP PAIN, FALL . Comparison: June 11, 2005 FINDINGS: BONES: Highly suggestive fracture of the inferior pubic ramus. Clinical correlation and follow-up adv ised. HIP JOINT SPACES: Mild osteoarthritic changes. SACROILIAC JOINT SPACES: The sacroiliac joint spaces shows a right sacroiliitis. PUBIC SYMPHYSIS: Normal. SOFT TISSUES: Vascular calcifications. IMPRESSION: Highly suggestive fracture of the inferior pubic ramus follow-up and clinical correlation advised.. Reviewed, dictated and finalized at location A. IMPRESSION: Highly suggestive fracture of the inferior pubic ramus follow-up and clinical c orrelation advised..
--- NOTE | ~2023-09-21 | XR_ITS ---
EXAMINATION: XR wrist RT min 3V DATE: 09/21/2023 15:23 INDICATION: Right wrist injury. TECHNIQUE: 3 views of right wrist were obtained. COMPARISON: Right wrist radiographs 08/20/21 FINDINGS: There is a comminuted fracture of distal radius with involvement of the distal articular nova rface. The main distal fracture fragment demonstrates dorsal angulation and impaction. There is 21 de grees dorsal tilt of the distal articular surface. There is an avulsion fracture of the ulnar styloid . Scapholunate dissociation is noted. There is severe osteoarthritis of scaphoid-trapezoid joint. The re are changes of triquetrum resection. IMPRESSION: 1. Comminuted fracture of distal radius. 2. Avulsion fracture of the ulnar styloid. 3. Scapholunate dissociation. 4. Polyarticular osteoarthritis. Reviewed, dictated and finalized at location E.
[2023-09-21 14:35] VITALS: BP 120/58; PULSE 98; RESP 16; TEMP 36.4; O2SAT 98
[2023-09-21 15:57] VITALS: BP 97/73; PULSE 106; RESP 21; O2SAT 96
--- NOTE | 2023-09-21 16:06 | ED.UPPEXIN ---
HPI - Extremity Injury (Upper) General Chief Complaint: Extremity Injury, Upper Stated Complaint: R wrist pain Time Seen by Provider: 09/21/23 16:05 Source: patient Mode of arrival: ambulatory Limitations: no limitations History of Present Illness HPI narrative: 78 YEARS OLD WHITE FEMALE CAME TO THE ED WITH RIGHT WRIST PAIN. PATIENT WAS TRANSFERRING FROM A CHAIR TO CHAIR, LOST BALANCE AND FELL LANDED ON THE RIGHT HAND. ALSO COMPLAINING OF RIGHT GROIN PAIN SHE DENIES ANY HEAD INJURY OR NECK INJURY OR LOSS OF CONSCIOUSNESS OR OTHER INJURIES. Related Data Allergies Allergy/AdvReac Type Severity Reaction Status Date / Time cortisone Allergy Intermediate Dyspnea / Verified 08/26/23 08:53 SOB Penicillins Allergy Intermediate Dyspnea / Verified 08/26/23 08:53 SOB ceftriaxone [From Rocephin] Allergy Difficulty Verified 08/26/23 08:53 Breathing Review of Systems Review of Systems: All systems reviewed & are unremarkable except as noted in HPI and below PMFSH Past Medical History Medical History Acute respiratory failure Anemia of chronic disease Callus of foot Coronary artery disease History of stent x3. COVID-19 virus infection Crohn's disease Diet-controlled diabetes mellitus A1c was 7.0 in 10/2018 and 4.8 in 01/2020. End-stage renal disease on hemodialysis Erythropoietin deficiency anemia Gastroesophageal reflux disease History of kidney stones Hypothyroidism Normal colonoscopy (08/2019) Obstructive sleep apnea No longer using CPAP after 40 lb weight loss. Osteomyelitis of toe of left foot Pericardial effusion (01/2020) Small pericardial effusion on echocardiogram, felt to be related to uremia. Peripheral autonomic neuropathy due to diabetes mellitus Peripheral vascular disease Peritonitis (01/2020) Pneumonia Renal cell carcinoma (2004) Renal osteodystrophy Restless leg syndrome Shingles (1991) Wound of right foot Surgical History Surgical History Amputation toe Left 2nd toe. History of appendectomy History of bilateral carpal tunnel release History of cardiac catheterization With stent x3. History of cholecystectomy History of colonoscopy History of complete ray amputation of second toe of left foot History of complete ray amputation of second toe of right foot History of cystoscopy With ureteral stents for kidney stones. History of foot surgery Repair of left foot fracture with pinning. History of hysterectomy (1976) With cystocele and rectocele repairs. History of partial nephrectomy (2004) Left partial nephrectomy for kidney cancer. History of tonsillectomy Family History Family History Father Renal cell carcinoma Acute myocardial infarction Cerebrovascular accident Colon polyp Heart disease Hypertension Mother Lung cancer Acute myocardial infarction Cerebrovascular accident Depression Heart disease Hypertension Son Asthma Social History Social History Social History: Surrogate medical decision maker: Dong Maher, son. Code status: DNR Smoking packs per day: 1 Smoking cigarettes per day: 20.0 Years smoked: 20 Smoking pack-years: 20.00 Smoking status: Never smoker Tobacco type: cigarettes Second hand tobacco smoke exposure: Yes Alcohol intake: never Substance use: never Lack of Transportation: No Lack of Food: Never True Current Housing: I Have Housing Concerned About Future Housing: No Difficulty Paying Gas/Electric Bills: No Difficulty Paying for Meds: No Currently Unemployed: No Education: Don't Know Difficulty w/ Childcare or Family Care: No Living arrangements: alone Additional living arrangements comments: , lives in [place]. Occupation/Education: retired Additional occupation/education
--- NOTE | 2023-09-21 16:09 | PC.NURSE ---
called patients sidra Villalobos at [phone] per patients request.
[2023-09-21 17:09] VITALS: BP 121/52; PULSE 85; RESP 19; O2SAT 99
[2023-09-21] MEDS: HYDROcodone/acetaminophen (*CRX) 5-325 MG TABLET 1 TAB PO (18:10)
[2023-09-21 18:52] VITALS: BP 111/69; PULSE 78; RESP 19; TEMP 36.8; O2SAT 99
== END 2023-09-21 18:55 | disposition home or self-care (01) ==
PROVIDERS: Emergency Provider Emergency Medicine; PCP Family Medicine Adolescent Medicine
DX: S52.501A Unspecified fracture of the lower end of right radius, initial encounter for closed fracture (principal); S52.611A Displaced fracture of right ulna styloid process, initial encounter for closed fracture; S32.591A Other specified fracture of right pubis, initial encounter for closed fracture
CPT/HCPCS: 29125; 73110; 73200; 73502; 73700; 99284; A4565; A9270

== ENCOUNTER 2023-09-22 10:39 | Observation (INO) | payer OTHER, MEDICARE, SELFPAY ==
[2023-09-22 10:48] VITALS: BP 132/64; PULSE 91; RESP 20; TEMP 36.7; O2SAT 96
[2023-09-22 11:45] VITALS: PULSE 87; RESP 20; O2SAT 100
--- NOTE | 2023-09-22 12:10 | PC.NURSE ---
Zainab josue contacted for additional information/update. Pt was not sent with any emergency paperwork but Ashley, primary caregiver, states they are only an assisted living facility and cannot take care of patient in her current condition - she is a 3 person assist at the moment, unable to bear weight on R leg and she needs more care than they can provide. Pt was given her usual hydrocodone prescription at 0945 this AM but was unable to go to dialysis due to limited transfer mobility from staff/no bina pads. Facility states family usually coordinates any follow-up apts and pt reports unable to get in to see Dr. Vanessa.
--- NOTE | 2023-09-22 12:15 | ED.GENADULT ---
HPI - General Adult General Chief complaint: Unspecified Stated complaint: unable to walk Time Seen by Provider: 09/22/23 12:05 History of Present Illness HPI narrative: 78-year-old female presenting with uncontrolled pain following fractured pelvis. She resides at an assisted living facility and uses a Rollator to ambulate. She fell yesterday and sustained a right wrist fracture and right pelvis fracture. Her pain was controlled with p.o. medications and she was discharged back to her assisted living facility. Unfortunately, the facility feels her pain was poorly controlled they do not feel comfortable giving her more pain meds. Further workup which she was unable to ambulate with her Rollator due to the pain. Patient denies any further trauma or new complaints. Patient is a peritoneal dialysis patient, was unable to get dialysis today due to uncontrolled pain. Related Data Allergies Allergy/AdvReac Type Severity Reaction Status Date / Time cortisone Allergy Intermediate Dyspnea / Verified 09/22/23 15:14 SOB Penicillins Allergy Intermediate Dyspnea / Verified 09/22/23 15:14 SOB ceftriaxone [From Rocephin] Allergy Difficulty Verified 09/22/23 15:14 Breathing Review of Systems Review of Systems: All systems reviewed & are unremarkable except as noted in HPI and below PMFSH Past Medical History Medical History Acute respiratory failure Anemia of chronic disease Callus of foot Coronary artery disease History of stent x3. COVID-19 virus infection Crohn's disease Diet-controlled diabetes mellitus A1c was 7.0 in 10/2018 and 4.8 in 01/2020. End-stage renal disease on hemodialysis Erythropoietin deficiency anemia Gastroesophageal reflux disease History of kidney stones Hypothyroidism Normal colonoscopy (08/2019) Obstructive sleep apnea No longer using CPAP after 40 lb weight loss. Osteomyelitis of toe of left foot Pericardial effusion (01/2020) Small pericardial effusion on echocardiogram, felt to be related to uremia. Peripheral autonomic neuropathy due to diabetes mellitus Peripheral vascular disease Peritonitis (01/2020) Pneumonia Renal cell carcinoma (2004) Renal osteodystrophy Restless leg syndrome Shingles (1991) Wound of right foot Surgical History Surgical History Amputation toe Left 2nd toe. History of appendectomy History of bilateral carpal tunnel release History of cardiac catheterization With stent x3. History of cholecystectomy History of colonoscopy History of complete ray amputation of second toe of left foot History of complete ray amputation of second toe of right foot History of cystoscopy With ureteral stents for kidney stones. History of foot surgery Repair of left foot fracture with pinning. History of hysterectomy (1976) With cystocele and rectocele repairs. History of partial nephrectomy (2004) Left partial nephrectomy for kidney cancer. History of tonsillectomy Family History Family History Father Renal cell carcinoma Acute myocardial infarction Cerebrovascular accident Colon polyp Heart disease Hypertension Mother Lung cancer Acute myocardial infarction Cerebrovascular accident Depression Heart disease Hypertension Son Asthma Social History Social History Social History: Surrogate medical decision maker: Dong Maher, son. Code status: DNR Smoking packs per day: 1 Smoking cigarettes per day: 20.0 Years smoked: 20 Smoking pack-years: 20.00 Smoking status: Never smoker Tobacco type: cigarettes Second hand tobacco smoke exposure: Yes Alcohol intake: never Substance use: never Do You Feel Safe in your Home?: Yes Lack of Transportation: YES Lack of Food: Never True Current Housing: I
[2023-09-22] MEDS: HYDROcodone/acetaminophen (*CRX) 5-325 MG TABLET 1 TAB PO ×2 (13:14→16:57)
[2023-09-22 13:36] LABS: Basophils Percent Auto 0.3 % (0.2-1.2); Eosinophils Absolute Auto 0.3 K/mm3 (0-0.3); Eosinophils Percent Auto 2.4 % (0-4.4); Hematocrit 31.1 % (37.0-47.0); Hemoglobin 10.2 g/dL (12.0-15.0); Immature Granulocyte Absolute 0.13 K/mm3 (0.00-0.031); Immature Granulocyte Percent A 1.1 % (0-0.5); Lymphocytes Absolute Auto 1.37 K/mm3 (0.9-3.2); Lymphocytes Percent Auto 11.6 % (18.3-44.2); Mean Corpuscular HGB Conc 32.8 g/dl (32-36); Mean Corpuscular Hemoglobin 30.6 pg (26-34); Mean Corpuscular Volume 93.4 fl (80-100); Mean Platelet Volume 9.1 fl (7.4-10.4); Monocytes Percent Auto 8.5 % (2.6-8.5); Neutrophils Percent Auto 76.1 % (45.5-73.1); Platelet Count Result 202 k/mm3 (150-375); Red Blood Count 3.33 M/mm3 (4.2-5.4); Red Cell Distribution Width 14.9 % (11.5-14.5); White Blood Count 11.9 K/mm3 (4.5-10.0)
[2023-09-22 13:46] LABS: Anion Gap 17 mmol/L (4-12); Blood Urea Nitrogen 44 mg/dL (7-17); Calcium 8.6 mg/dL (8.4-10.2); Carbon Dioxide 23 mmol/L (22-30); Chloride 98 mmol/L (98-107); Estimated CRCL calculation 5 ml/min; Estimated Glomerular Filt Rate 5; Glucose 159 mg/dL (65-110); Potassium 3.5 mmol/L (3.4-5.0); Sodium 138 mmol/L (137-145)
[2023-09-22 14:14] VITALS: BP 133/54; PULSE 80; RESP 18; O2SAT 97
--- NOTE | 2023-09-22 15:11 | ADMGEN ---
This patient, Layla Maher, was admitted to 3 [facility] Surg Room 320-01. Patient/family oriented to hospital policies and general routines including ID bracelet, bed and alarms, visiting hours, pain management, procedures, bathroom and other care routines, personal items, smoking policy, room service/diet, and visiting hours. Information on how to activate the Rapid Response Team has been discussed. Patient/Family are encouraged to report perceived risks to care and to ask questions if they do not understand what they are told or what they should do.
[2023-09-22 15:12] VITALS: BMI 28.8
--- NOTE | 2023-09-22 15:14 | PM.IMHP ---
H&P: HPI History of Present Illness Date/Time: 09/22/23 15:14 Chief Complaint: Pain in the right hip, right wrist Narrative: Layla Maher is a 78 year old female with pmh of T2DM, ESRD, Anemia, and GERD who presents from home after a fall yesterday with resulting right inf. pubic ramus fracture and right wrist fracture. She was initially seen yesterday in the ED and had improvement in her pain, with f/u arranged with orthopedics, Dr. Paez and was discharged to home. She reports she was at home last night and had pain, but assisted facility nursing staff did not dispense any pain medications as were ordered on her discharge yesterday. The pain continued to increase and she was sent to the Emergency Department for further management of the above noted injuries and intractable pain. On her presentation today, she notes that she was scheduled for dialysis and has now missed that appointment. She denies any shortness of breath. She states she has been well recently, at her approximate baseline in regards to her health status. She does endorse right wrist pain, worse with any movement of the extremity (which is immobilized), and with any attempt to bear weight or transfer. She does deny any recent illness. She has not had shortness of breath, chest pain, n/v. She does generally have diarrheal stools with her Chrons. On ED evaluation she was reporting uncontrolled pain, but this improved significantly with oral pain medications. She is being admitted for further management of her pain and for PT/OT evaluation. Review of Systems Review of Systems: CONSTITUTIONAL: ?No new weight loss, fever, chills, weakness, or fatigue. HEENT: ? No new visual loss, blurred vision, or double vision.? No hearing loss or ear pain.? SKIN: ?No rash or pruritis. CARDIOVASCULAR: ?No chest pain, chest pressure or chest discomfort. No palpitations.? RESPIRATORY: ?No shortness of breath, cough or sputum. GASTROINTESTINAL: ?No anorexia, nausea, vomiting, constipation, or diarrhea. No abdominal pain or bloody stools. NEUROLOGICAL: ?No new headache, dizziness, syncope, paralysis, numbness or tingling in the extremities. No change in bowel or bladder control. ROS negative other than as mentioned above over 14 systems. [facility] Past Medical History Medical History Acute respiratory failure Anemia of chronic disease Callus of foot Coronary artery disease History of stent x3. COVID-19 virus infection Crohn's disease Diet-controlled diabetes mellitus A1c was 7.0 in 10/2018 and 4.8 in 01/2020. End-stage renal disease on hemodialysis Erythropoietin deficiency anemia Gastroesophageal reflux disease History of kidney stones Hypothyroidism Normal colonoscopy (08/2019) Obstructive sleep apnea No longer using CPAP after 40 lb weight loss. Osteomyelitis of toe of left foot Pericardial effusion (01/2020) Small pericardial effusion on echocardiogram, felt to be related to uremia. Peripheral autonomic neuropathy due to diabetes mellitus Peripheral vascular disease Peritonitis (01/2020) Pneumonia Renal cell carcinoma (2004) Renal osteodystrophy Restless leg syndrome [place] (1991) Wound of right foot Surgical History Surgical History Amputation toe Left 2nd toe. History of appendectomy History of bilateral carpal tunnel release History of cardiac catheterization With stent x3. History of cholecystectomy History of colonoscopy History of complete ray amputation of second toe of left foot History of complete ray amputation of second toe of right foot History of cystoscopy With ureteral stents for kidney stones. History of foot surgery Repair of left foot fracture with pinning. History of hysterectomy (1976) With cystocele and rectocele repairs. History of partial nephrectomy (2004) Left partial nephrectomy for kidney cancer.
[2023-09-22 15:24] VITALS: BMI 30.9
[2023-09-22] MEDS: DICYCLOMINE HCL 10 MG CAPSULE 20 MG PO (16:44)
[2023-09-22] MEDS: rOPINIRole HCL 0.5 MG TABLET PO (16:44)
[2023-09-22] MEDS: CYCLOBENZAPRINE HCL 5 MG TABLET PO (16:44)
[2023-09-22] MEDS: busPIRone HCL 10 MG TABLET PO (16:44)
--- NOTE | 2023-09-22 16:55 | PM.CNNEP ---
Assessment and Plan Assessment and plan (1) End stage renal disease: Code(s): N18.6 - End stage renal disease Status: Chronic Assessment and Plan: HD tomorrow (since missed HD treatment today) eventually transition back to T/T/s outpatient dialysis schedule follow electrolytes, volume status, and clearance (2) Pubic ramus fracture: Code(s): S32.599A - Other specified fracture of unspecified pubis, initial encounter for closed fracture Status: Acute Assessment and Plan: Orthopedic Surgery consultation pain control PT/OT as tolerated (3) Wrist fracture: Qualifiers: Encounter type: initial encounter Fracture type: closed Laterality: right Qualified Code(s): S62.101A - Fracture of unspecified carpal bone, right wrist, initial encounter for closed fracture Code(s): S62.109A - Fracture of unspecified carpal bone, unspecified wrist, initial encounter for closed fracture Status: Acute Assessment and Plan: pain control Plastic Surgery consulted (4) Hypertension: Code(s): I10 - Essential (primary) hypertension Status: Chronic Assessment and Plan: reasonable control at this time resume home medications follow trend of hemodynamics (5) Crohn's disease: Code(s): K50.90 - Crohn's disease, unspecified, without complications Status: Chronic Assessment and Plan: chronic issue loose stools/diarrhea at baseline Continue emory and tommie (6) Anemia: Code(s): D64.9 - Anemia, unspecified Status: Chronic Assessment and Plan: due to ESRD Epogen with dialysis follow trend of H/H I will continue follow patient with you while she remains hospitalized to make further recommendations during hospital course. Thank you for allowing me to participate in the care of this patient. History of Present Illness Reason for Consult Consult date: 09/22/23 Reason for consult: end stage renal disease Chief Complaint Chief complaint: pelvic fracture History of Present Illness Narrative: The patient is an 78-year-old female with a past medical history as outlined below who presented to [facility] Emergency room for increased pain secondary to her previous diagnosed right wrist fracture and right inferior pubic ramus fracture. The patient was initially seen the day before in the emergency room following her fall. At that time, she was diagnosed with the above fractures. Her pain was reasonably controlled in the ER and she was arranged for follow-up with outpatient orthopedics and subsequently discharged home. When she returned to her home /assisted living, her pain was initially controlled but apparently the facility nursing staff did not dispense any further pain medications as ordered on her discharge paperwork. The pain continued to worsen / increased to the point where it became almost unbearable. She was subsequently transferred back to the emergency room for further assessment. Workup and evaluation in the emergency room demonstrated the patient was in significant pain but once oral medications were administered, this quickly improved. She had no other acute complaints other than the aforementioned pain. She reported no shortness of breath, chest pain, nausea, vomiting, dizziness, lightheadedness, or palpitations. She does have diarrhea but this is a chronic issue secondary to her Crohn's disease. Given her intractable pain in the likelihood that she would require possible sniff versus rehabilitation, she was admitted for pain management and physical and occupational evaluation. Renal consultation was requested due to her end-stage renal disease. The patient normally dialyzes on a Thursday, , Thursday dialysis schedule at [facility] under the care of Dr. Jamshid Joe. From a dialysis perspective, she has been doing reasonably well and has been compliant w
[2023-09-22 19:46] VITALS: PULSE 80; RESP 18; O2SAT 97
[2023-09-22 20:05] VITALS: BP 152/63; PULSE 83; RESP 18; TEMP 36.4; O2SAT 96
[2023-09-22] MEDS: MIRTAZAPINE 30 MG TABLET PO (20:33)
[2023-09-22] MEDS: METOPROLOL TARTRATE 25 MG TABLET PO (20:33)
[2023-09-22] MEDS: HEPARIN SODIUM 5,000 UNITS/ML VIAL 5000 UNITS SUB-Q (20:33)
[2023-09-22] MEDS: levETIRAcetam 500 MG TABLET PO (20:33)
[2023-09-22] MEDS: CHOLESTYRAMINE LIGHT 4 GM POWD.PACK PO (20:34)
[2023-09-22 20:48] LABS: Glucose Point of Care 168 mg/dl (65-105)
[2023-09-23] VITALS (21 sets, daily range): BP systolic 90–155; BP diastolic 45–68; PULSE 70–86; RESP 16–18; TEMP 35.8–37.9; O2SAT 95–100
[2023-09-23] MEDS: HYDROcodone/acetaminophen (*CRX) 5-325 MG TABLET 1 TAB PO ×4 (06:50→20:31)
--- NOTE | 2023-09-23 06:57 | PM.CNOR ---
Assessment and Plan Assessment and plan (1) Pubic ramus fracture: Code(s): S32.599A - Other specified fracture of unspecified pubis, initial encounter for closed fracture Status: Acute Assessment and Plan: Patient tripped and fell suffering a fracture of the inferior pubic ramus. Apparently she also has a wrist fracture was Dr. Gonzalez consult on. For her pubic ramus fracture this should heal uneventfully with just conservative treatment when she is comfortable she can start putting some weight on it otherwise she will be bed to chair. She will need fdc or rehab consult for now. I anticipate follow-up in 2 weeks will take x-rays again at that point. She has any changes or problems interim she will call discussed. History of Present Illness HPI Consult date: 09/23/23 Chief complaint: pelvic fracture Narrative: Patient suffered a fall tripping over some carpet when she is getting out of a chair to go to her walker. She not only her pelvis but also her wrist. Apparently Dr. Gonzalez is been consult to take care of her wrist. Review of Systems Musculoskeletal: Musculoskeletal: Reports arthralgias, Reports joint swelling and Reports stiffness PMFSH Past Medical History Medical History Acute respiratory failure Anemia of chronic disease Callus of foot Coronary artery disease History of stent x3. COVID-19 virus infection Crohn's disease Diet-controlled diabetes mellitus A1c was 7.0 in 10/2018 and 4.8 in 01/2020. End-stage renal disease on hemodialysis Erythropoietin deficiency anemia Gastroesophageal reflux disease History of kidney stones Hypothyroidism Normal colonoscopy (08/2019) Obstructive sleep apnea No longer using CPAP after 40 lb weight loss. Osteomyelitis of toe of left foot Pericardial effusion (01/2020) Small pericardial effusion on echocardiogram, felt to be related to uremia. Peripheral autonomic neuropathy due to diabetes mellitus Peripheral vascular disease Peritonitis (01/2020) Pneumonia Renal cell carcinoma (2004) Renal osteodystrophy Restless leg syndrome [place] (1992) Wound of right foot Surgical History Surgical History Amputation toe Left 2nd toe. History of appendectomy History of bilateral carpal tunnel release History of cardiac catheterization With stent x3. History of cholecystectomy History of colonoscopy History of complete ray amputation of second toe of left foot History of complete ray amputation of second toe of right foot History of cystoscopy With ureteral stents for kidney stones. History of foot surgery Repair of left foot fracture with pinning. History of hysterectomy (1976) With cystocele and rectocele repairs. History of partial nephrectomy (2004) Left partial nephrectomy for kidney cancer. History of tonsillectomy Family History Family History Father Renal cell carcinoma Acute myocardial infarction Cerebrovascular accident Colon polyp Heart disease Hypertension Mother Lung cancer Acute myocardial infarction Cerebrovascular accident Depression Heart disease Hypertension Son Asthma Social History Social History Social History: Surrogate medical decision maker: Dong Maher, son. Code status: DNR Smoking packs per day: 1 Smoking cigarettes per day: 20.0 Years smoked: 20 Smoking pack-years: 20.00 Smoking status: Never smoker Tobacco type: cigarettes Second hand tobacco smoke exposure: Yes Alcohol intake: never Substance use: never Do You Feel Safe in your Home?: Yes Lack of Transportation: YES Lack of Food: Never True Current Housing: I Have Housing Concerned About Future Housing: No Difficulty Paying Gas/Electric Bills: No Difficulty Paying for Meds:
[2023-09-23 07:08] LABS: Albumin Level 3.5 g/dL (3.5-5.1); Anion Gap 16 mmol/L (4-12); Blood Urea Nitrogen 50 mg/dL (7-17); Calcium 8.1 mg/dL (8.4-10.2); Carbon Dioxide 24 mmol/L (22-30); Chloride 98 mmol/L (98-107); Estimated CRCL calculation 5 ml/min; Estimated Glomerular Filt Rate 4; Glucose 119 mg/dL (65-110); Phosphorus 5.1 mg/dL (2.5-4.5); Potassium 3.6 mmol/L (3.4-5.0); Sodium 138 mmol/L (137-145)
[2023-09-23 07:11] LABS: Hematocrit 30.6 % (37.0-47.0); Hemoglobin 9.7 g/dL (12.0-15.0); Mean Corpuscular HGB Conc 31.7 g/dl (32-36); Mean Corpuscular Hemoglobin 30.1 pg (26-34); Mean Platelet Volume 9.6 fl (7.4-10.4); Platelet Count Result 203 k/mm3 (150-375); Red Blood Count 3.22 M/mm3 (4.2-5.4); Red Cell Distribution Width 14.6 % (11.5-14.5); White Blood Count 8.9 K/mm3 (4.5-10.0)
[2023-09-23 07:41] LABS: Hepatitis B Surface Antigen Negative (Negative)
[2023-09-23 07:41] LABS: Glucose Point of Care 128 mg/dl (65-105)
[2023-09-23 07:59] LABS: Hepatitis B Surface Anti Res Negative
[2023-09-23] MEDS: MORPHINE SULFATE (*CRX) 4 MG/ML INJ IV PUSH ×2 (08:14→13:41)
--- NOTE | 2023-09-23 09:23 | PM.IMPN ---
Progress Note: A&P Assessment and Plan (1) Pubic ramus fracture: Code(s): S32.599A - Other specified fracture of unspecified pubis, initial encounter for closed fracture Status: Acute (2) Wrist fracture: Code(s): S62.109A - Fracture of unspecified carpal bone, unspecified wrist, initial encounter for closed fracture Status: Acute Plan (1) Wrist fracture: Code(s): S62.109A - Fracture of unspecified carpal bone, unspecified wrist, initial encounter for closed fracture Status: Acute Assessment and Plan: - Pain is improved at this time with oral pain medications. Will follow with Lisa for further management. - Cont. with pain medications mild apap, mod norco, severe morphine. Appreciate plastic surgeon recommendations. (2) Pubic ramus fracture: Code(s): S32.599A - Other specified fracture of unspecified pubis, initial encounter for closed fracture Status: Acute Assessment and Plan: - orthopedics have been consulted. Plan for pt/ot evaluation. (3) End stage renal disease: Code(s): N18.6 - End stage renal disease Status: Chronic Assessment and Plan: Missed dialysis today - nephrology has been consulted. Not in florid fluid overload on examination - resting comfortably. (4) Dependence on renal dialysis: Code(s): Z99.2 - Dependence on renal dialysis Status: Acute (5) Anemia of chronic disease: Code(s): D63.8 - Anemia in other chronic diseases classified elsewhere Status: Acute Assessment and Plan: Hgb 10.2, stable with her prior labwork on file. Trend. (6) Crohn's disease: Code(s): K50.90 - Crohn's disease, unspecified, without complications Status: Chronic Assessment and Plan: - Routinely loose stools/diarrhea, no abd. pain. On questran and bentyl which will continue. Plan Layla Maher is a 78 year old female who presents after failing outpatient management of a one day history of right wrist fracture and right inferior ramus fracture with uncontrolled pain. Plan for pt/ot evaluation and further pain management interventions. Subjective Date/time seen: 09/23/23 09:23 Interval history: I saw exam patient today, patient still has pain of left wrist, and pelvics, worse with movement. Denies chest pain, shortness breast, abdomen pain nausea vomiting diarrhea Review of Systems Review of Systems: GENERAL: Pleasant, in no acute distress. Well-nourished. - EYES: EOMI. Anicteric. - HENT: Moist mucous membranes. - LUNGS: Clear to auscultation bilaterally, no wheezing, rhonchi, or rales. - CARDIOVASCULAR: Regular rate and rhythm. No murmur. No JVD. - ABDOMEN: Soft, non-tender and non-distended. No palpable masses. - EXTREMITIES: No edema. Peripheral pulses 2+. Non-tender. Right wrist pain with movement, - NEUROLOGIC: No focal neurological deficits. CN II-XII grossly intact. - PSYCHIATRIC: Awake, Alert and oriented x 3. Appropriate mood and affect. - SKIN: No rashes or lesions. Warm. - LYMPH: No cervical lymphadenopathy. Exam Narrative: GENERAL APPEARANCE: Appears to be in no acute distress. HEAD: normocephalic atraumatic EYES: Vision grossly intact. ENT: Hearing grossly intact, no nasal discharge NECK: Neck supple, trachea midline. CARDIAC: Normal S1/S2. Rhythm is regular. No murmurs, rubs, or gallops. No cyanosis or pallor. Extremities are warm and well perfused. LUNGS: Clear to auscultation without rales, rhonchi, wheezing or diminished breath sounds. Respirations even and unlabored. ABDOMEN: BS positive x 4 quadrants. Soft, nondistended, nontender. No guarding or rebound. MSK: Right wrist immobilized. Distal sensation intact. PERIPHERAL VASCULAR: Peripheral pulses palpable. Normal perfusion, cap refill <2 seconds. No edema. NEURO: Follows commands. No focal deficits. SKIN: [place] without lesions or eruptions. A LUE diaysis graft in place with palpable t
[2023-09-23] MEDS: EPOETIN ALFA-EPBX 4,000 UNITS/ML VIAL 4000 UNITS IV PUSH (10:34)
--- NOTE | 2023-09-23 11:05 | P.PNNP_ITS ---
Progress Note: A&P Assessment and Plan (1) End stage renal disease: Code(s): N18.6 - End stage renal disease Status: Chronic Assessment and Plan: * HD today since missed HD treatment yesterday) * eventually transition back to T/T/s outpatient dialysis schedule - tentatively plan HD tomorrow * follow electrolytes, volume status, and clearance (2) Pubic ramus fracture: Code(s): S32.599A - Other specified fracture of unspecified pubis, initial encounter for closed fracture Status: Acute Assessment and Plan: * Orthopedic Surgery recommendations noted * conservative therapy - no surgical intervention needed * pain control * PT/OT as tolerated * awaiting placement (3) Wrist fracture: Qualifiers: Encounter type: initial encounter Fracture type: closed Laterality: right Qualified Code(s): S62.101A - Fracture of unspecified carpal bone, right wrist, initial encounter for closed fracture Code(s): S62.109A - Fracture of unspecified carpal bone, unspecified wrist, initial encounter for closed fracture Status: Acute Assessment and Plan: * pain control * Plastic Surgery recommendations noted * no surgical intervention * continue splint (4) Hypertension: Code(s): I10 - Essential (primary) hypertension Status: Chronic Assessment and Plan: * reasonable control at this time * resume home medications * follow trend of hemodynamics (5) Crohn's disease: Code(s): K50.90 - Crohn's disease, unspecified, without complications Status: Chronic Assessment and Plan: * chronic issue * loose stools/diarrhea at baseline * Continue questran and bentyl (6) Anemia: Code(s): D64.9 - Anemia, unspecified Status: Chronic Assessment and Plan: * due to ESRD * Epogen with dialysis * follow trend of H/H Will continue to follow. Subjective Date/time seen: 09/23/23 11:05 Interval history: Follow-up for end stage renal disease on hemodialysis. Tolerating dialysis treatment at the time of my visit (seen on HD at 10:55AM); pain control seems to be adequate; no acute distress noted; no issues/events overnight or earlier this AM. Exam Narrative: General: elderly female in NAD Heart: normal S1 and S2; no rub Lungs: clear anteriorly Abdomen: soft, nontender, nondistended, positive bowel sounds Extremities: no cyanosis or clubbing; no edema Skin: warm and dry Objective Data Vital Signs Vital Signs: Vital Signs Temp Pulse Resp BP Pulse Ox O2 Del Method 09/23/23 11:03 83 117/59 L 09/23/23 10:49 83 116/56 L 09/23/23 10:20 86 101/53 L 09/23/23 11:20 84 121/59 L 09/23/23 10:40 83 116/52 L 09/23/23 10:00 85 119/56 L 09/23/23 09:40 76 105/53 L 09/23/23 09:20 73 117/51 L 09/23/23 09:00 70 105/45 L 09/23/23 08:57 71 113/50 L 09/23/23 08:39 98.4 F 71 16 100/48 L 97 09/23/23 04:45 96.4 F L 72 18 155/50 H 95 09/22/23 20:05 97.6 F 83 18 152/63 H 96 09/22/23 19:46 80 18 97 Room Air 09/22/23 15:23 Room Air 09/22/23 14:14 80 18 133/54 L 97 Intake/Output Intake/Output: Intake & Outpu
--- NOTE | 2023-09-23 11:05 | PM.PNNEP ---
Progress Note: A&P Assessment and Plan (1) End stage renal disease: Code(s): N18.6 - End stage renal disease Status: Chronic Assessment and Plan: HD today since missed HD treatment yesterday) eventually transition back to T/T/s outpatient dialysis schedule - tentatively plan HD tomorrow follow electrolytes, volume status, and clearance (2) Pubic ramus fracture: Code(s): S32.599A - Other specified fracture of unspecified pubis, initial encounter for closed fracture Status: Acute Assessment and Plan: Orthopedic Surgery recommendations noted conservative therapy - no surgical intervention needed pain control PT/OT as tolerated awaiting placement (3) Wrist fracture: Qualifiers: Encounter type: initial encounter Fracture type: closed Laterality: right Qualified Code(s): S62.101A - Fracture of unspecified carpal bone, right wrist, initial encounter for closed fracture Code(s): S62.109A - Fracture of unspecified carpal bone, unspecified wrist, initial encounter for closed fracture Status: Acute Assessment and Plan: pain control Plastic Surgery recommendations noted no surgical intervention continue splint (4) Hypertension: Code(s): I10 - Essential (primary) hypertension Status: Chronic Assessment and Plan: reasonable control at this time resume home medications follow trend of hemodynamics (5) Crohn's disease: Code(s): K50.90 - Crohn's disease, unspecified, without complications Status: Chronic Assessment and Plan: chronic issue loose stools/diarrhea at baseline Continue questran and bentyl (6) Anemia: Code(s): D64.9 - Anemia, unspecified Status: Chronic Assessment and Plan: due to ESRD Epogen with dialysis follow trend of H/H Will continue to follow. Subjective Date/time seen: 09/23/23 11:05 Interval history: Follow-up for end stage renal disease on hemodialysis. Tolerating dialysis treatment at the time of my visit (seen on HD at 10:55AM); pain control seems to be adequate; no acute distress noted; no issues/events overnight or earlier this AM. Exam Narrative: General: elderly female in NAD Heart: normal S1 and S2; no rub Lungs: clear anteriorly Abdomen: soft, nontender, nondistended, positive bowel sounds Extremities: no cyanosis or clubbing; no edema Skin: warm and dry Objective Data Vital Signs Vital Signs: Vital Signs Temp Pulse Resp BP Pulse Ox O2 Del Method 07/10/24 11:03 83 117/59 L 09/23/23 10:49 83 116/56 L 09/23/23 10:20 86 101/53 L 09/23/23 11:20 84 121/59 L 09/23/23 10:40 83 116/52 L 09/23/23 10:00 85 119/56 L 09/23/23 09:40 76 105/53 L 09/23/23 09:20 73 117/51 L 09/23/23 09:00 70 105/45 L 09/23/23 08:57 71 113/50 L 09/23/23 08:39 98.4 F 71 16 100/48 L 97 09/23/23 04:45 96.4 F L 72 18 155/50 H 95 09/22/23 20:05 97.6 F 83 18 152/63 H 96 09/22/23 19:46 80 18 97 Room Air 09/22/23 15:23 Room Air 09/22/23 14:14 80 18 133/54 L 97 Intake/Output Intake/Output: Intake & Output 09/20/23 09/21/23 09/22/23 09/23/23 23:59 23:59 23:59 23:59 Intake Total 185 220 Output Total 0 Balance 185 220 Meds/Results Medications: Active Medications Generic Name Dose Route Start Last Admin Trade Name Freq PRN Reason Stop Dose Admin Acetaminophen 325 mg 09/22/23 15:58 Acetaminophen 325 Mg Tablet PO Q4H PRN Mild Pain (1-3) or Fever Hydrocodone Bitart/Acetaminophen 1 tab 09/22/23 15:58 09/23/23 11:37 Hydrocodone/Acetaminophen (*Crx) 5-325 Mg Tablet PO 1 tab Q4H PRN Administration Pain Rated 4-6 Atorvastatin Calcium 40 mg 09/23/23 09:00 Atorvastatin 40 Mg Tablet PO DAILY SUKI Bupropion HCl 150 mg 09/23/23 09:00 Bupropion Hcl Xl (24 Hr) 150 Mg Ta
[2023-09-23] MEDS: HEPARIN SODIUM 1,000 UNITS/ML VIAL 1000 UNITS IV PUSH (11:11)
--- NOTE | 2023-09-23 12:23 | PCPTNOTE ---
Continue to wait for recommendations regarding wrist fractures prior to PT evaluation. Will follow.
[2023-09-23] MEDS: DICYCLOMINE HCL 10 MG CAPSULE 20 MG PO ×2 (13:43→17:12)
--- NOTE | 2023-09-23 13:43 | PCOTNOTE ---
Continue to wait for recommendations regarding wrist fractures prior to OT evaluation. Will follow.
[2023-09-23 14:02] LABS: Glucose Point of Care 162 mg/dl (65-105)
--- NOTE | 2023-09-23 14:18 | WPDCN ---
Assessment and Plan Assessment and plan (1) Wrist fracture: Qualifiers: Encounter type: initial encounter Fracture type: closed Laterality: right Qualified Code(s): S62.101A - Fracture of unspecified carpal bone, right wrist, initial encounter for closed fracture Code(s): S62.109A - Fracture of unspecified carpal bone, unspecified wrist, initial encounter for closed fracture Status: Acute Assessment and Plan: 78yo female with closed intrarticular right distal radius fx, ulnar styloid fx and likley old SL interval widening xray and cit images revwied and agree with report discussed impression and Dx and hopeful expectaiton for healing with conservative mgmt noting articular surface and sicplacement on ct appears reasonable for healing with minimal decrease in hand function. discussed plan for repeat xray weekly to ensure no change in reduction and that surgery could still be possibility if this happens reviwed fx healing and timing Plan: 1) cont splint 2) elevation 3) pain control per primary 4) f/u 1 week HPI Data of Consult Date/Time: 09/23/23 14:18 Requesting Physician: Jakob Robins MD Primary Care Provider: Justen Singer MD Consult Narrative Narrative: Layla Maher is a 78 year old female s/p fall who presented to ED after fall at her assisted living facility noted to have pelvic fx and distal radius fx. placed in right volar splint and discharged but facility unable to achieve adequate pain control so patient now admitted and I was consulted for further fx eval and mgmt has been elevating and compliant with splint no other concerns regarding hand as pt seen and examined bedside PMFSH Past Medical History Medical History Acute respiratory failure Anemia of chronic disease Callus of foot Coronary artery disease History of stent x3. COVID-19 virus infection Crohn's disease Diet-controlled diabetes mellitus A1c was 7.0 in 10/2018 and 4.8 in 01/2020. End-stage renal disease on hemodialysis Erythropoietin deficiency anemia Gastroesophageal reflux disease History of kidney stones Hypothyroidism Normal colonoscopy (08/2019) Obstructive sleep apnea No longer using CPAP after 40 lb weight loss. Osteomyelitis of toe of left foot Pericardial effusion (01/2020) Small pericardial effusion on echocardiogram, felt to be related to uremia. Peripheral autonomic neuropathy due to diabetes mellitus Peripheral vascular disease Peritonitis (01/2020) Pneumonia Renal cell carcinoma (2004) Renal osteodystrophy Restless leg syndrome Shingles (1991) Wound of right foot Surgical History Surgical History Amputation toe Left 2nd toe. History of appendectomy History of bilateral carpal tunnel release History of cardiac catheterization With stent x3. History of cholecystectomy History of colonoscopy History of complete ray amputation of second toe of left foot History of complete ray amputation of second toe of right foot History of cystoscopy With ureteral stents for kidney stones. History of foot surgery Repair of left foot fracture with pinning. History of hysterectomy (1976) With cystocele and rectocele repairs. History of partial nephrectomy (2004) Left partial nephrectomy for kidney cancer. History of tonsillectomy Family History Family History Father Renal cell carcinoma Acute myocardial infarction Cerebrovascular accident Colon polyp Heart disease Hypertension Mother Lung cancer Acute myocardial infarction Cerebrovascular accident Depression Heart disease Hypertension Son Asthma Social History Social History Social History: Surrogate medical decision maker: Dong Maher, son. Code status: DNR Smoking packs per
[2023-09-23] MEDS: CHOLESTYRAMINE LIGHT 4 GM POWD.PACK PO (14:43)
[2023-09-23 16:36] LABS: Glucose Point of Care 251 mg/dl (65-105)
[2023-09-23] MEDS: MEGESTROL ACETATE (*CHEMO) ORAL SUSP 40 MG/ML SYR 200 MG PO (17:10)
[2023-09-23] MEDS: rOPINIRole HCL 0.5 MG TABLET PO (17:12)
[2023-09-23] MEDS: busPIRone HCL 10 MG TABLET PO (17:12)
[2023-09-23] MEDS: HEPARIN SODIUM 5,000 UNITS/ML VIAL 5000 UNITS SUB-Q (20:30)
[2023-09-23] MEDS: levETIRAcetam 500 MG TABLET PO (20:30)
[2023-09-23] MEDS: MIRTAZAPINE 30 MG TABLET PO (20:30)
[2023-09-23] MEDS: METOPROLOL TARTRATE 25 MG TABLET PO (20:31)
[2023-09-24] VITALS (20 sets, daily range): BP systolic 93–161; BP diastolic 41–75; PULSE 57–97; RESP 12–18; TEMP 35.9–37; O2SAT 95–99
[2023-09-24] MEDS: HYDROcodone/acetaminophen (*CRX) 5-325 MG TABLET 1 TAB PO ×4 (00:57→21:40)
[2023-09-24 05:52] LABS: Hematocrit 30.5 % (37.0-47.0); Hemoglobin 9.5 g/dL (12.0-15.0); Mean Corpuscular HGB Conc 31.1 g/dl (32-36); Mean Corpuscular Hemoglobin 29.8 pg (26-34); Mean Corpuscular Volume 95.6 fl (80-100); Mean Platelet Volume 9.1 fl (7.4-10.4); Platelet Count Result 196 k/mm3 (150-375); Red Blood Count 3.19 M/mm3 (4.2-5.4); Red Cell Distribution Width 14.6 % (11.5-14.5); White Blood Count 8.8 K/mm3 (4.5-10.0)
[2023-09-24 06:11] LABS: Alanine Aminotransferase 10 U/L (6-35); Albumin Level 3.3 g/dL (3.5-5.1); Alkaline Phosphatase 140 U/L (38-126); Anion Gap 12 mmol/L (4-12); Aspartate Amino Transferase 13 U/L (14-36); Bilirubin,Total 0.6 mg/dL (0.2-1.3); Blood Urea Nitrogen 28 mg/dL (7-17); Calcium 8.3 mg/dL (8.4-10.2); Carbon Dioxide 29 mmol/L (22-30); Chloride 100 mmol/L (98-107); Estimated CRCL calculation 8 ml/min; Estimated Glomerular Filt Rate 7; Glucose 122 mg/dL (65-110); Phosphorus 3.6 mg/dL (2.5-4.5); Potassium 3.4 mmol/L (3.4-5.0); Sodium 141 mmol/L (137-145)
[2023-09-24 07:40] LABS: Glucose Point of Care 134 mg/dl (65-105)
--- NOTE | 2023-09-24 08:02 | PM.IMPN ---
Progress Note: A&P Assessment and Plan (1) Pubic ramus fracture: Code(s): S32.599A - Other specified fracture of unspecified pubis, initial encounter for closed fracture Status: Acute (2) Wrist fracture: Qualifiers: Encounter type: initial encounter Fracture type: closed Laterality: right Qualified Code(s): S62.101A - Fracture of unspecified carpal bone, right wrist, initial encounter for closed fracture Code(s): S62.109A - Fracture of unspecified carpal bone, unspecified wrist, initial encounter for closed fracture Status: Acute Plan (1) Wrist fracture: Code(s): S62.109A - Fracture of unspecified carpal bone, unspecified wrist, initial encounter for closed fracture Status: Acute Assessment and Plan: - Pain is improved at this time with oral pain medications. Will follow with [place] for further management. - Cont. with pain medications mild apap, mod norco, severe morphine. Appreciate plastic surgeon recommendations. (2) Pubic ramus fracture: Code(s): S32.599A - Other specified fracture of unspecified pubis, initial encounter for closed fracture Status: Acute Assessment and Plan: - orthopedics have been consulted. Plan for pt/ot evaluation. (3) End stage renal disease: Code(s): N18.6 - End stage renal disease Status: Chronic Assessment and Plan: Missed dialysis today - nephrology has been consulted. Not in florid fluid overload on examination - resting comfortably. (4) Dependence on renal dialysis: Code(s): Z99.2 - Dependence on renal dialysis Status: Acute (5) Anemia of chronic disease: Code(s): D63.8 - Anemia in other chronic diseases classified elsewhere Status: Acute Assessment and Plan: Hgb 10.2, stable with her prior labwork on file. Trend. (6) Crohn's disease: Code(s): K50.90 - Crohn's disease, unspecified, without complications Status: Chronic Assessment and Plan: - Routinely loose stools/diarrhea, no abd. pain. On questran and bentyl which will continue. Consulted PT OT home care manager, home care manager is working on placement. Patient will benefit from rehab placement after discharge Subjective Date/time seen: 09/24/23 08:02 Interval history: I saw examined the patient when patient was on hemodialysis. Patient feels pain is better controlled but has still has severe pain when patient was moved out of bed. Patient denies chest pain, shortness of breath. Patient is afebrile, hemodynamically stable Exam Narrative: GENERAL APPEARANCE: Appears to be in no acute distress. HEAD: normocephalic atraumatic EYES: Vision grossly intact. ENT: Hearing grossly intact, no nasal discharge NECK: Neck supple, trachea midline. CARDIAC: Normal S1/S2. Rhythm is regular. No murmurs, rubs, or gallops. No cyanosis or pallor. Extremities are warm and well perfused. LUNGS: Clear to auscultation without rales, rhonchi, wheezing or diminished breath sounds. Respirations even and unlabored. ABDOMEN: BS positive x 4 quadrants. Soft, nondistended, nontender. No guarding or rebound. MSK: Right wrist immobilized. Distal sensation intact. PERIPHERAL VASCULAR: Peripheral pulses palpable. Normal perfusion, cap refill <2 seconds. No edema. NEURO: Follows commands. No focal deficits. SKIN: [place] without lesions or eruptions. A LUE diaysis graft in place with palpable thrill. PSYCH: Stable, no paranoia or delusional thinking. Objective Data Vital Signs Vital Signs: Vital Signs - 24 hr 09/23/23 08:39 09/23/23 08:57 09/23/23 09:00 Temperature 98.4 F Pulse Rate 71 71 70 Respiratory Rate 16 Blood Pressure 100/48 L 113/50 L 105/45 L Pulse Oximetry 97 Oxygen Delivery Fraction of Inspired Oxygen 09/23/23 09:20 09/23/23 09:40 09/23/23 10:00 Temperature Pulse Rate 73 76 85 Respiratory Rate Blood Pressure 117/51 L 105/53 L 119/56 L P
[2023-09-24] MEDS: rOPINIRole HCL 0.5 MG TABLET PO ×2 (08:35→17:01)
[2023-09-24] MEDS: busPIRone HCL 10 MG TABLET PO ×2 (08:35→17:01)
[2023-09-24] MEDS: ATORVASTATIN 40 MG TABLET PO (08:35)
[2023-09-24] MEDS: PANTOPRAZOLE 40 MG TABLET PO (08:35)
[2023-09-24] MEDS: DICYCLOMINE HCL 10 MG CAPSULE 20 MG PO ×2 (08:35→17:01)
[2023-09-24] MEDS: MEGESTROL ACETATE (*CHEMO) ORAL SUSP 40 MG/ML SYR 200 MG PO ×2 (08:35→17:02)
[2023-09-24] MEDS: buPROPion HCL XL (24 HR) 150 MG TABCR PO (08:35)
[2023-09-24] MEDS: levETIRAcetam 500 MG TABLET PO ×2 (08:35→20:28)
[2023-09-24] MEDS: ESCITALOPRAM OXALATE 10 MG TABLET PO (08:35)
--- NOTE | 2023-09-24 08:55 | PCPTNOTE ---
Spoke with Dr. Schmidt (current hospitalist), pt OK to come off bedrest. RN made aware.
--- NOTE | 2023-09-24 08:56 | PCPTNOTE ---
Attempted PT evaluation, pt off the unit at dialysis. Will follow.
--- NOTE | 2023-09-24 09:24 | PC.NURSE ---
during morning med pass this nurse was told that dialysis nurse was ready for pt and to give morning meds, but hold blood pressure meds until she was finished with dialysis. pt stated she does not want dialysis today. pt asked who ordered dialysis. pt was told nephrology doctor ordered dialysis for today. pt also stated she does not want her meds at this time. pt was educated on importance of meds and she then accepted and took meds. pt was then accepting of dialysis if she was able to ask her son first and wanted a cookie before she started. after her needs were met she was accepting with getting dialysis.
[2023-09-24] MEDS: CYCLOBENZAPRINE HCL 5 MG TABLET PO (11:30)
--- NOTE | 2023-09-24 12:15 | P.PNNP_ITS ---
Progress Note: A&P Assessment and Plan (1) End stage renal disease: Code(s): N18.6 - End stage renal disease Status: Chronic Assessment and Plan: * HD today * transitioning back to T/T/s outpatient dialysis schedule * follow electrolytes, volume status, and clearance (2) Pubic ramus fracture: Code(s): S32.599A - Other specified fracture of unspecified pubis, initial encounter for closed fracture Status: Acute Assessment and Plan: * Orthopedic Surgery recommendations noted * conservative therapy - no surgical intervention needed * pain control * PT/OT as tolerated * awaiting placement (3) Wrist fracture: Qualifiers: Encounter type: initial encounter Fracture type: closed Laterality: right Qualified Code(s): S62.101A - Fracture of unspecified carpal bone, right wrist, initial encounter for closed fracture Code(s): S62.109A - Fracture of unspecified carpal bone, unspecified wrist, initial encounter for closed fracture Status: Acute Assessment and Plan: * pain control * Plastic Surgery recommendations noted * no surgical intervention * continue splint (4) Hypertension: Code(s): I10 - Essential (primary) hypertension Status: Chronic Assessment and Plan: * reasonable control at this time * resume home medications * follow trend of hemodynamics (5) Crohn's disease: Code(s): K50.90 - Crohn's disease, unspecified, without complications Status: Chronic Assessment and Plan: * chronic issue * loose stools/diarrhea at baseline * Continue questran and bentyl (6) Anemia: Code(s): D64.9 - Anemia, unspecified Status: Chronic Assessment and Plan: * due to ESRD * Epogen with dialysis * follow trend of H/H Will continue to follow. Subjective Date/time seen: 09/24/23 12:15 Interval history: Follow-up for end stage renal disease on hemodialysis. Tolerating dialysis treatment at the time of my visit (seen on HD at 12:05PM); pain control satisfactory but reports that it worsens with any significant amount of movement; no other issues voiced currently. Exam Narrative: General: elderly female in NAD Heart: normal S1 and S2; no rub Lungs: clear anteriorly Abdomen: soft, nontender, nondistended, positive bowel sounds Extremities: no cyanosis or clubbing; no edema Skin: warm and intact Objective Data Vital Signs Vital Signs: Vital Signs Temp Pulse Resp BP Pulse Ox O2 Del Method FiO2 09/24/23 08:00 Room Air 09/23/23 20:00 Room Air 09/23/23 21:29 99.5 F 81 16 140/68 98 09/23/23 20:31 80 09/23/23 15:45 97 Room Air 21 09/23/23 14:00 97.9 F 80 16 139/57 L 100 Intake/Output Intake/Output: Intake & Output 09/21/23 09/22/23 09/23/23 09/24/23 23:59 23:59 23:59 23:59 Intake Total 185 580 200 Output Total 1550 Balance 185 -970 200 Meds/Results Medications: Active Medications Generic Name Dose Route Start Last Admin Trade Name Jordinq PRN Reason Stop Dose Admin Acetaminophen 325 mg 09/22/23 15:58 Acetaminophen 325 Mg Tablet PO
--- NOTE | 2023-09-24 12:15 | PM.PNNEP ---
Progress Note: A&P Assessment and Plan (1) End stage renal disease: Code(s): N18.6 - End stage renal disease Status: Chronic Assessment and Plan: HD today transitioning back to T/T/s outpatient dialysis schedule follow electrolytes, volume status, and clearance (2) Pubic ramus fracture: Code(s): S32.599A - Other specified fracture of unspecified pubis, initial encounter for closed fracture Status: Acute Assessment and Plan: Orthopedic Surgery recommendations noted conservative therapy - no surgical intervention needed pain control PT/OT as tolerated awaiting placement (3) Wrist fracture: Qualifiers: Encounter type: initial encounter Fracture type: closed Laterality: right Qualified Code(s): S62.101A - Fracture of unspecified carpal bone, right wrist, initial encounter for closed fracture Code(s): S62.109A - Fracture of unspecified carpal bone, unspecified wrist, initial encounter for closed fracture Status: Acute Assessment and Plan: pain control Plastic Surgery recommendations noted no surgical intervention continue splint (4) Hypertension: Code(s): I10 - Essential (primary) hypertension Status: Chronic Assessment and Plan: reasonable control at this time resume home medications follow trend of hemodynamics (5) Crohn's disease: Code(s): K50.90 - Crohn's disease, unspecified, without complications Status: Chronic Assessment and Plan: chronic issue loose stools/diarrhea at baseline Continue emory and luisyl (6) Anemia: Code(s): D64.9 - Anemia, unspecified Status: Chronic Assessment and Plan: due to ESRD Epogen with dialysis follow trend of H/H Will continue to follow. Subjective Date/time seen: 09/24/23 12:15 Interval history: Follow-up for end stage renal disease on hemodialysis. Tolerating dialysis treatment at the time of my visit (seen on HD at 12:05PM); pain control satisfactory but reports that it worsens with any significant amount of movement; no other issues voiced currently. Exam Narrative: General: elderly female in NAD Heart: normal S1 and S2; no rub Lungs: clear anteriorly Abdomen: soft, nontender, nondistended, positive bowel sounds Extremities: no cyanosis or clubbing; no edema Skin: warm and intact Objective Data Vital Signs Vital Signs: Vital Signs Temp Pulse Resp BP Pulse Ox O2 Del Method FiO2 09/24/23 08:00 Room Air 09/23/23 20:00 Room Air 09/23/23 21:29 99.5 F 81 16 140/68 98 09/23/23 20:31 80 09/23/23 15:45 97 Room Air 21 09/23/23 14:00 97.9 F 80 16 139/57 L 100 Intake/Output Intake/Output: Intake & Output 09/21/23 09/22/23 09/23/23 09/24/23 23:59 23:59 23:59 23:59 Intake Total 185 580 200 Output Total 1550 Balance 185 -970 200 Meds/Results Medications: Active Medications Generic Name Dose Route Start Last Admin Trade Name Freq PRN Reason Stop Dose Admin Acetaminophen 325 mg 09/22/23 15:58 Acetaminophen 325 Mg Tablet PO Q4H PRN Mild Pain (1-3) or Fever Hydrocodone Bitart/Acetaminophen 1 tab 09/22/23 15:58 09/24/23 11:29 Hydrocodone/Acetaminophen (*Crx) 5-325 Mg Tablet PO 1 tab Q4H PRN Administration Pain Rated 4-6 Atorvastatin Calcium 40 mg 09/23/23 09:00 09/24/23 08:35 Atorvastatin 40 Mg Tablet PO 40 mg DAILY SUKI Administration Bupropion HCl 150 mg 09/23/23 09:00 09/24/23 08:35 Bupropion Hcl Xl (24 Hr) 150 Mg Tabcr PO 150 mg QAM SUKI Administration Buspirone HCl 10 mg 09/22/23 17:00 09/24/23 08:35 Buspirone Hcl 10 Mg Tablet PO 10 mg BID SUKI Administration Cholestyramine Resin 4 gm 09/22/23 22:00 09/24/23 10:04 Cholestyramine Light 4 Gm Powd.Pack PO Not Given BID@1000,2200 SUKI Cyclobenzaprine HCl 5 mg 09/22/23 16:01 09/24/23 11:3
[2023-09-24] MEDS: EPOETIN ALFA-EPBX 10,000 UNITS/ML VIAL 10000 UNITS IV PUSH (12:17)
[2023-09-24 14:14] LABS: Glucose Point of Care 124 mg/dl (65-105)
[2023-09-24 17:01] LABS: Glucose Point of Care 224 mg/dl (65-105)
[2023-09-24] MEDS: HEPARIN SODIUM 5,000 UNITS/ML VIAL 5000 UNITS SUB-Q (20:27)
[2023-09-24] MEDS: MIRTAZAPINE 30 MG TABLET PO (20:28)
[2023-09-24 21:10] LABS: Glucose Point of Care 227 mg/dl (65-105)
[2023-09-24] MEDS: CHOLESTYRAMINE LIGHT 4 GM POWD.PACK PO (21:37)
[2023-09-25 06:20] VITALS: BP 177/74; PULSE 77; RESP 20; TEMP 35.8; O2SAT 94
[2023-09-25 07:27] LABS: Glucose Point of Care 126 mg/dl (65-105)
[2023-09-25] MEDS: HEPARIN SODIUM 5,000 UNITS/ML VIAL 5000 UNITS SUB-Q (08:14)
[2023-09-25] MEDS: ATORVASTATIN 40 MG TABLET PO (08:15)
[2023-09-25] MEDS: DICYCLOMINE HCL 10 MG CAPSULE 20 MG PO ×3 (08:15→17:10)
[2023-09-25] MEDS: ESCITALOPRAM OXALATE 10 MG TABLET PO (08:15)
[2023-09-25] MEDS: rOPINIRole HCL 0.5 MG TABLET PO ×2 (08:15→17:11)
[2023-09-25] MEDS: levETIRAcetam 500 MG TABLET PO ×2 (08:15→21:24)
[2023-09-25] MEDS: PANTOPRAZOLE 40 MG TABLET PO (08:16)
[2023-09-25] MEDS: busPIRone HCL 10 MG TABLET PO ×2 (08:16→17:11)
[2023-09-25] MEDS: buPROPion HCL XL (24 HR) 150 MG TABCR PO (08:16)
[2023-09-25] MEDS: MEGESTROL ACETATE (*CHEMO) ORAL SUSP 40 MG/ML SYR 200 MG PO ×2 (08:16→17:12)
[2023-09-25] MEDS: HYDROcodone/acetaminophen (*CRX) 5-325 MG TABLET 1 TAB PO ×2 (08:18→21:30)
[2023-09-25 08:20] VITALS: O2SAT 96
[2023-09-25] MEDS: CHOLESTYRAMINE LIGHT 4 GM POWD.PACK PO (09:41)
[2023-09-25 11:24] LABS: Glucose Point of Care 262 mg/dl (65-105)
--- NOTE | 2023-09-25 12:58 | PM.PNNEP ---
Progress Note: A&P Assessment and Plan (1) End stage renal disease: Code(s): N18.6 - End stage renal disease Status: Chronic Assessment and Plan: HD today transitioning back to T/T/s outpatient dialysis schedule follow electrolytes, volume status, and clearance (2) Pubic ramus fracture: Code(s): S32.599A - Other specified fracture of unspecified pubis, initial encounter for closed fracture Status: Acute Assessment and Plan: Orthopedic Surgery recommendations noted conservative therapy - no surgical intervention needed pain control PT/OT as tolerated awaiting placement (3) Wrist fracture: Qualifiers: Encounter type: initial encounter Fracture type: closed Laterality: right Qualified Code(s): S62.101A - Fracture of unspecified carpal bone, right wrist, initial encounter for closed fracture Code(s): S62.109A - Fracture of unspecified carpal bone, unspecified wrist, initial encounter for closed fracture Status: Acute Assessment and Plan: pain control Plastic Surgery recommendations noted no surgical intervention continue splint (4) Hypertension: Code(s): I10 - Essential (primary) hypertension Status: Chronic Assessment and Plan: reasonable control at this time resumed on home medications follow trend of hemodynamics (5) Crohn's disease: Code(s): K50.90 - Crohn's disease, unspecified, without complications Status: Chronic Assessment and Plan: chronic issue loose stools/diarrhea at baseline continue emory and tommie (6) Anemia: Code(s): D64.9 - Anemia, unspecified Status: Chronic Assessment and Plan: due to ESRD Epogen with dialysis follow trend of H/H Will continue to follow. Subjective Date/time seen: 09/25/23 12:58 Interval history: Follow-up for end stage renal disease on hemodialysis. Tolerated dialysis treatment yesterday without any issues or problems; pain control seems to be doing better with movement; no events overnight or earlier this morning. Exam Narrative: General: elderly female in NAD Heart: normal S1 and S2; no rub Lungs: clear anteriorly Abdomen: soft, nontender, nondistended, positive bowel sounds Extremities: no cyanosis or clubbing; no edema Skin: no rash Objective Data Vital Signs Vital Signs: Vital Signs Temp Pulse Resp BP Pulse Ox O2 Del Method FiO2 09/25/23 12:53 97.3 F L 76 16 106/88 96 09/25/23 08:20 96 Room Air 09/25/23 06:20 96.4 F L 77 20 177/74 H 94 09/24/23 21:00 96.7 F L 73 18 111/54 L 99 09/24/23 20:20 74 12 95 Room Air 21 Intake/Output Intake/Output: Intake & Output 09/22/23 09/23/23 09/24/23 09/25/23 23:59 23:59 23:59 23:59 Intake Total 185 580 902 730 Output Total 1550 1500 0 Balance 185 -970 -598 730 Meds/Results Medications: Active Medications Generic Name Dose Route Start Last Admin Trade Name Freq PRN Reason Stop Dose Admin Acetaminophen 325 mg 09/22/23 15:58 Acetaminophen 325 Mg Tablet PO Q4H PRN Mild Pain (1-3) or Fever Hydrocodone Bitart/Acetaminophen 1 tab 09/22/23 15:58 09/25/23 08:18 Hydrocodone/Acetaminophen (*Crx) 5-325 Mg Tablet PO 1 tab Q4H PRN Administration Pain Rated 4-6 Atorvastatin Calcium 40 mg 09/23/23 09:00 09/25/23 08:15 Atorvastatin 40 Mg Tablet PO 40 mg DAILY SUKI Administration Bupropion HCl 150 mg 09/23/23 09:00 09/25/23 08:16 Bupropion Hcl Xl (24 Hr) 150 Mg Tabcr PO 150 mg QAM SUKI Administration Buspirone HCl 10 mg 09/22/23 17:00 09/25/23 17:11 Buspirone Hcl 10 Mg Tablet PO 10 mg BID SUKI Administration Cholestyramine Resin 4 gm 09/22/23 22:00 09/25/23 09:41 Cholestyramine Light 4 Gm Powd.Pack PO 4 gm BID@1000,2200 SUKI Administration Cyclobenzaprine HCl 5 mg 09/22/23 16:01 09/24/23 11:30 Cyclobenzapri
--- NOTE | 2023-09-25 12:58 | P.PNNP_ITS ---
Progress Note: A&P Assessment and Plan (1) End stage renal disease: Code(s): N18.6 - End stage renal disease Status: Chronic Assessment and Plan: * HD today * transitioning back to T/T/s outpatient dialysis schedule * follow electrolytes, volume status, and clearance (2) Pubic ramus fracture: Code(s): S32.599A - Other specified fracture of unspecified pubis, initial encounter for closed fracture Status: Acute Assessment and Plan: * Orthopedic Surgery recommendations noted * conservative therapy - no surgical intervention needed * pain control * PT/OT as tolerated * awaiting placement (3) Wrist fracture: Qualifiers: Encounter type: initial encounter Fracture type: closed Laterality: right Qualified Code(s): S62.101A - Fracture of unspecified carpal bone, right wrist, initial encounter for closed fracture Code(s): S62.109A - Fracture of unspecified carpal bone, unspecified wrist, initial encounter for closed fracture Status: Acute Assessment and Plan: * pain control * Plastic Surgery recommendations noted * no surgical intervention * continue splint (4) Hypertension: Code(s): I10 - Essential (primary) hypertension Status: Chronic Assessment and Plan: * reasonable control at this time * resumed on home medications * follow trend of hemodynamics (5) Crohn's disease: Code(s): K50.90 - Crohn's disease, unspecified, without complications Status: Chronic Assessment and Plan: * chronic issue * loose stools/diarrhea at baseline * continue questran and bentyl (6) Anemia: Code(s): D64.9 - Anemia, unspecified Status: Chronic Assessment and Plan: * due to ESRD * Epogen with dialysis * follow trend of H/H Will continue to follow. Subjective Date/time seen: 09/25/23 12:58 Interval history: Follow-up for end stage renal disease on hemodialysis. Tolerated dialysis treatment yesterday without any issues or problems; pain control seems to be doing better with movement; no events overnight or earlier this morning. Exam Narrative: General: elderly female in NAD Heart: normal S1 and S2; no rub Lungs: clear anteriorly Abdomen: soft, nontender, nondistended, positive bowel sounds Extremities: no cyanosis or clubbing; no edema Skin: no rash Objective Data Vital Signs Vital Signs: Vital Signs Temp Pulse Resp BP Pulse Ox O2 Del Method FiO2 09/25/23 12:53 97.3 F L 76 16 106/88 96 09/25/23 08:20 96 Room Air 09/25/23 06:20 96.4 F L 77 20 177/74 H 94 09/24/23 21:00 96.7 F L 73 18 111/54 L 99 09/24/23 20:20 74 12 95 Room Air 21 Intake/Output Intake/Output: Intake & Output 09/22/23 09/23/23 09/24/23 09/25/23 23:59 23:59 23:59 23:59 Intake Total 185 580 902 730 Output Total 1550 1500 0 Balance 185 -970 -598 730 Meds/Results Medications: Active Medications Generic Name Dose Route Start Last Admin Trade Name Freq PRN Reason Stop Dose Admin Acetaminophen 325 mg 09/22/23 15:58 Acetaminophen 325 Mg Tablet PO Q4H PRN Mild Pain (
--- NOTE | 2023-09-25 13:15 | PM.IMPN ---
Progress Note: A&P Assessment and Plan (1) Pubic ramus fracture: Code(s): S32.599A - Other specified fracture of unspecified pubis, initial encounter for closed fracture Status: Acute (2) Wrist fracture: Qualifiers: Encounter type: initial encounter Fracture type: closed Laterality: right Qualified Code(s): S62.101A - Fracture of unspecified carpal bone, right wrist, initial encounter for closed fracture Code(s): S62.109A - Fracture of unspecified carpal bone, unspecified wrist, initial encounter for closed fracture Status: Acute Plan 79-year-old female presented with uncontrolled pain following fractured pelvis. She decides at in assisted living facility and. She fell on 09/21/2023 and sustained right wrist fracture and right pelvis fracture. Patient was discharged back to her facility however patient was not able to ambulate due to pain and was brought to the ED for further evaluation. Vitals were stable on presentation no new injury or complaint on admission. Patient was admitted for PT OT and placement. Orthopedics were consulted for pelvic fracture ( nondisplaced fracture of right inferior pubic ramus) and will be managed non operatively and weight-bearing as tolerated. Plastic surgery was consulted for right wrist fracture and has been placed on splint. Patient will follow-up with them as an outpatient basis. End-stage renal disease on hemodialysis nephrology on board for inpatient hemodialysis. Anemia chronic disease Type 2 diabetes check A1c at [facility] Crohn's disease Disposition prefers [facility] Subjective Date/time seen: 09/25/23 13:15 Interval history: no overnight events, no fever, chills, no sob, chest pain. up to chair pain controlled on hip Review of Systems Review of Systems: All systems reviewed & are unremarkable except as noted in HPI and below Exam Narrative: GENERAL APPEARANCE: Appears to be in no acute distress. Alert and oriented x3 HEAD: normocephalic atraumatic ENT: Hearing grossly intact, no nasal discharge NECK: Neck supple, trachea midline. CARDIAC: Normal S1/S2. Rhythm is regular. No murmurs, rubs, or gallops. No cyanosis or pallor. Extremities are warm and well perfused LUNGS: Clear to auscultation without rales, rhonchi, wheezing or diminished breath sounds. Respirations even and unlabored. ABDOMEN: BS positive x 4 quadrants. Soft, nondistended, nontender. No guarding or rebound. MSK: Right wrist immobilized. Distal sensation intact. PERIPHERAL VASCULAR: Peripheral pulses palpable. Normal perfusion, cap refill <2 seconds. No edema. NEURO: Follows commands. No focal deficits. SKIN: [place] without lesions or eruptions. A LUE diaysis graft in place with palpable thrill. PSYCH: Stable, no paranoia or delusional thinking. Objective Data Vital Signs Vital Signs: Vital Signs - 24 hr 09/24/23 14:00 09/24/23 15:23 09/24/23 13:20 Temperature 97.1 F L Pulse Rate 74 70 Respiratory Rate 12 Blood Pressure 119/52 L 102/47 L Pulse Oximetry 95 Oxygen Delivery Room Air Fraction of Inspired Oxygen 09/24/23 13:32 09/24/23 20:20 09/24/23 21:00 Temperature 97.5 F L 96.7 F L Pulse Rate 70 74 73 Respiratory Rate 18 12 18 Blood Pressure 102/43 L 111/54 L Pulse Oximetry 95 99 Oxygen Delivery Room Air Fraction of Inspired Oxygen 09/25/23 06:20 09/25/23 08:20 Temperature 96.4 F L Pulse Rate 77 Respiratory Rate 20 Blood Pressure 177/74 H Pulse Oximetry 94 96 Oxygen Delivery Room Air Fraction of Inspired Oxygen Intake/Output Intake/Output: Intake & Output 09/22/23 09/23/23 09/24/23 09/25/23 23:59 23:59 23:59 23:59 Intake Total 185 580 902 730 Output Total 1550 1500 Balance 185 -970 -598 730 Meds/Results Medications: Active Medications Generic Name Dose Route Start Last Admin Trade Name Jordinq PRN Reason Stop Dose Admin Acetaminophen 325 mg 09/22/23 15:58 Acetaminophen 325 Mg Tablet PO
[2023-09-25 13:53] VITALS: BP 106/88; PULSE 76; RESP 16; TEMP 36.3; O2SAT 96
[2023-09-25 16:54] LABS: Glucose Point of Care 157 mg/dl (65-105)
[2023-09-25 16:54] LABS: Hemoglobin A1C 6.9 % (<5.7)
[2023-09-25 20:48] LABS: Glucose Point of Care 264 mg/dl (65-105)
[2023-09-25 21:19] VITALS: BP 149/43; PULSE 82; RESP 18; TEMP 36.6; O2SAT 95
[2023-09-25] MEDS: MIRTAZAPINE 30 MG TABLET PO (21:24)
[2023-09-26] VITALS (20 sets, daily range): BP systolic 99–158; BP diastolic 41–75; PULSE 69–93; RESP 16–20; TEMP 36.3–37; O2SAT 96–99
[2023-09-26] MEDS: HYDROcodone/acetaminophen (*CRX) 5-325 MG TABLET 1 TAB PO ×3 (05:39→22:25)
[2023-09-26 07:49] LABS: Glucose Point of Care 149 mg/dl (65-105)
[2023-09-26] MEDS: busPIRone HCL 10 MG TABLET PO ×2 (08:47→17:58)
[2023-09-26] MEDS: ESCITALOPRAM OXALATE 10 MG TABLET PO (08:47)
[2023-09-26] MEDS: buPROPion HCL XL (24 HR) 150 MG TABCR PO (08:47)
[2023-09-26] MEDS: rOPINIRole HCL 0.5 MG TABLET PO ×2 (08:47→17:58)
[2023-09-26] MEDS: ATORVASTATIN 40 MG TABLET PO (08:47)
[2023-09-26] MEDS: DICYCLOMINE HCL 10 MG CAPSULE 20 MG PO ×3 (08:48→17:58)
[2023-09-26] MEDS: levETIRAcetam 500 MG TABLET PO ×2 (08:48→21:00)
[2023-09-26] MEDS: PANTOPRAZOLE 40 MG TABLET PO (08:50)
--- NOTE | 2023-09-26 11:11 | P.PNNP_ITS ---
Progress Note: A&P Assessment and Plan (1) End stage renal disease: Code(s): N18.6 - End stage renal disease Status: Chronic Assessment and Plan: * HD today * continue T/T/s outpatient dialysis schedule * follow electrolytes, volume status, and clearance (2) Pubic ramus fracture: Code(s): S32.599A - Other specified fracture of unspecified pubis, initial encounter for closed fracture Status: Acute Assessment and Plan: * Orthopedic Surgery recommendations noted * conservative therapy - no surgical intervention needed * pain control * PT/OT as tolerated * awaiting placement (3) Wrist fracture: Qualifiers: Encounter type: initial encounter Fracture type: closed Laterality: right Qualified Code(s): S62.101A - Fracture of unspecified carpal bone, right wrist, initial encounter for closed fracture Code(s): S62.109A - Fracture of unspecified carpal bone, unspecified wrist, initial encounter for closed fracture Status: Acute Assessment and Plan: * pain control * Plastic Surgery recommendations noted * no surgical intervention * continue splint (4) Hypertension: Code(s): I10 - Essential (primary) hypertension Status: Chronic Assessment and Plan: * reasonable control at this time * resumed on home medications * follow trend of hemodynamics (5) Crohn's disease: Code(s): K50.90 - Crohn's disease, unspecified, without complications Status: Chronic Assessment and Plan: * chronic issue * loose stools/diarrhea at baseline * continue questran and bentyl (6) Anemia: Code(s): D64.9 - Anemia, unspecified Status: Chronic Assessment and Plan: * due to ESRD * Epogen with dialysis * follow trend of H/H Will continue to follow. Subjective Date/time seen: 09/26/23 11:11 Interval history: Follow-up for end stage renal disease on hemodialysis. Tolerating dialysis treatment at the time of my visit (seen on HD at 11:00AM); pain control seems reasonable; no apparent distress voiced currently; no other issues/events overnight or earlier this morning. Exam Narrative: General: elderly female in NAD Heart: normal S1 and S2; no rub Lungs: clear anteriorly Abdomen: soft, nontender, nondistended, positive bowel sounds Extremities: no cyanosis or clubbing; no edema Skin: no nodules Objective Data Vital Signs Vital Signs: Vital Signs Temp Pulse Resp BP Pulse Ox O2 Del Method O2 Flow Rate 09/26/23 11:00 78 132/58 L 09/26/23 10:45 73 139/55 L 09/26/23 10:30 81 127/58 L 09/26/23 10:15 84 99/48 L 09/26/23 10:00 69 121/55 L 09/26/23 13:39 98.2 F 89 16 142/62 H 98 09/26/23 09:49 75 158/67 H 09/26/23 09:33 97.3 F L 76 18 150/65 H 98 09/26/23 09:33 0 09/26/23 14:00 97.4 F L 87 20 115/75 99 09/26/23 08:00 Room Air 09/26/23 05:33 97.4 F L 80 16 151/51 H 96 09/25/23 21:19 97.8 F 82 18 149/43 H 95 09/25/23 19:47 Room Air Intake/Output Intake/Output: Intake & Output 09/23/23 09/24/23 09/25/23 09/26/23 23:59 23:59 23:59 23:59 Intake Total 580 902 970 42
--- NOTE | 2023-09-26 11:11 | PM.PNNEP ---
Progress Note: A&P Assessment and Plan (1) End stage renal disease: Code(s): N18.6 - End stage renal disease Status: Chronic Assessment and Plan: HD today continue T/T/s outpatient dialysis schedule follow electrolytes, volume status, and clearance (2) Pubic ramus fracture: Code(s): S32.599A - Other specified fracture of unspecified pubis, initial encounter for closed fracture Status: Acute Assessment and Plan: Orthopedic Surgery recommendations noted conservative therapy - no surgical intervention needed pain control PT/OT as tolerated awaiting placement (3) Wrist fracture: Qualifiers: Encounter type: initial encounter Fracture type: closed Laterality: right Qualified Code(s): S62.101A - Fracture of unspecified carpal bone, right wrist, initial encounter for closed fracture Code(s): S62.109A - Fracture of unspecified carpal bone, unspecified wrist, initial encounter for closed fracture Status: Acute Assessment and Plan: pain control Plastic Surgery recommendations noted no surgical intervention continue splint (4) Hypertension: Code(s): I10 - Essential (primary) hypertension Status: Chronic Assessment and Plan: reasonable control at this time resumed on home medications follow trend of hemodynamics (5) Crohn's disease: Code(s): K50.90 - Crohn's disease, unspecified, without complications Status: Chronic Assessment and Plan: chronic issue loose stools/diarrhea at baseline continue emory and tommie (6) Anemia: Code(s): D64.9 - Anemia, unspecified Status: Chronic Assessment and Plan: due to ESRD Epogen with dialysis follow trend of H/H Will continue to follow. Subjective Date/time seen: 09/26/23 11:11 Interval history: Follow-up for end stage renal disease on hemodialysis. Tolerating dialysis treatment at the time of my visit (seen on HD at 11:00AM); pain control seems reasonable; no apparent distress voiced currently; no other issues/events overnight or earlier this morning. Exam Narrative: General: elderly female in NAD Heart: normal S1 and S2; no rub Lungs: clear anteriorly Abdomen: soft, nontender, nondistended, positive bowel sounds Extremities: no cyanosis or clubbing; no edema Skin: no nodules Objective Data Vital Signs Vital Signs: Vital Signs Temp Pulse Resp BP Pulse Ox O2 Del Method O2 Flow Rate 09/26/23 11:00 78 132/58 L 09/26/23 10:45 73 139/55 L 09/26/23 10:30 81 127/58 L 09/26/23 10:15 84 99/48 L 09/26/23 10:00 69 121/55 L 09/26/23 13:39 98.2 F 89 16 142/62 H 98 09/26/23 09:49 75 158/67 H 09/26/23 09:33 97.3 F L 76 18 150/65 H 98 09/26/23 09:33 0 09/26/23 14:00 97.4 F L 87 20 115/75 99 09/26/23 08:00 Room Air 09/26/23 05:33 97.4 F L 80 16 151/51 H 96 09/25/23 21:19 97.8 F 82 18 149/43 H 95 09/25/23 19:47 Room Air Intake/Output Intake/Output: Intake & Output 09/23/23 09/24/23 09/25/23 09/26/23 23:59 23:59 23:59 23:59 Intake Total 580 902 970 420 Output Total 1550 1500 0 1000 Balance -970 -598 970 -580 Meds/Results Medications: Active Medications Generic Name Dose Route Start Last Admin Trade Name Freq PRN Reason Stop Dose Admin Acetaminophen 325 mg 09/22/23 15:58 Acetaminophen 325 Mg Tablet PO Q4H PRN Mild Pain (1-3) or Fever Hydrocodone Bitart/Acetaminophen 1 tab 09/22/23 15:58 09/26/23 05:39 Hydrocodone/Acetaminophen (*Crx) 5-325 Mg Tablet PO 1 tab Q4H PRN Administration Pain Rated 4-6 Atorvastatin Calcium 40 mg 09/23/23 09:00 09/26/23 08:47 Atorvastatin 40 Mg Tablet PO 40 mg DAILY SUKI Administration Bupropion HCl 150 mg 09/23/23 09:00 09/26/23 08:47 Bupropion Hcl Xl (24 Hr) 150 Mg Tabcr PO 150 mg QAM SUKI
[2023-09-26 11:40] LABS: Albumin Level 3.5 g/dL (3.5-5.1); Anion Gap 11 mmol/L (4-12); Blood Urea Nitrogen 22 mg/dL (7-17); Calcium 8.7 mg/dL (8.4-10.2); Carbon Dioxide 26 mmol/L (22-30); Chloride 103 mmol/L (98-107); Estimated CRCL calculation 12 ml/min; Estimated Glomerular Filt Rate 13; Glucose 187 mg/dL (65-110); Potassium 3.4 mmol/L (3.4-5.0); Sodium 140 mmol/L (137-145)
[2023-09-26] MEDS: EPOETIN ALFA-EPBX 10,000 UNITS/ML VIAL 10000 UNITS IV PUSH (11:41)
[2023-09-26 11:53] LABS: Glucose Point of Care 172 mg/dl (65-105)
--- NOTE | 2023-09-26 12:45 | PM.IMPN ---
Progress Note: A&P Assessment and Plan (1) Pubic ramus fracture: Code(s): S32.599A - Other specified fracture of unspecified pubis, initial encounter for closed fracture Status: Acute (2) Wrist fracture: Qualifiers: Encounter type: initial encounter Fracture type: closed Laterality: right Qualified Code(s): S62.101A - Fracture of unspecified carpal bone, right wrist, initial encounter for closed fracture Code(s): S62.109A - Fracture of unspecified carpal bone, unspecified wrist, initial encounter for closed fracture Status: Acute Plan 79-year-old female presented with uncontrolled pain following fractured pelvis. She decides at in assisted living facility and. She fell on 09/21/2023 and sustained right wrist fracture and right pelvis fracture. Patient was discharged back to her facility however patient was not able to ambulate due to pain and was brought to the ED for further evaluation. Vitals were stable on presentation no new injury or complaint on admission. Patient was admitted for PT OT and placement. Orthopedics were consulted for pelvic fracture ( nondisplaced fracture of right inferior pubic ramus) and will be managed non operatively and weight-bearing as tolerated. Plastic surgery was consulted for right wrist fracture and has been placed on splint. Patient will follow-up with them as an outpatient basis. End-stage renal disease on hemodialysis nephrology on board for inpatient hemodialysis. Anemia chronic disease Type 2 diabetes check A1c at [facility] Crohn's disease Disposition prefers SNF placement authorization pending Subjective Date/time seen: 09/26/23 12:45 Interval history: no new complaints. Seen during dialysis. No fever chills. Review of Systems Review of Systems: All systems reviewed & are unremarkable except as noted in HPI and below Exam Narrative: GENERAL APPEARANCE: Appears to be in no acute distress. Alert and oriented x3 HEAD: normocephalic atraumatic ENT: Hearing grossly intact, no nasal discharge NECK: Neck supple, trachea midline. CARDIAC: Normal S1/S2. Rhythm is regular. No murmurs, rubs, or gallops. No cyanosis or pallor. Extremities are warm and well perfused LUNGS: Clear to auscultation without rales, rhonchi, wheezing or diminished breath sounds. Respirations even and unlabored. ABDOMEN: BS positive x 4 quadrants. Soft, nondistended, nontender. No guarding or rebound. MSK: Right wrist immobilized. Distal sensation intact. PERIPHERAL VASCULAR: Peripheral pulses palpable. Normal perfusion, cap refill <2 seconds. No edema. NEURO: Follows commands. No focal deficits. SKIN: [place] without lesions or eruptions. A LUE diaysis graft in place with palpable thrill. PSYCH: Stable, no paranoia or delusional thinking. Objective Data Vital Signs Vital Signs: Vital Signs - 24 hr 09/25/23 13:53 09/25/23 19:47 09/25/23 21:19 Temperature 97.3 F L 97.8 F Pulse Rate 76 82 Respiratory Rate 16 18 Blood Pressure 106/88 149/43 H Pulse Oximetry 96 95 Oxygen Delivery Room Air 09/26/23 05:33 09/26/23 08:00 Temperature 97.4 F L Pulse Rate 80 Respiratory Rate 16 Blood Pressure 151/51 H Pulse Oximetry 96 Oxygen Delivery Room Air Intake/Output Intake/Output: Intake & Output 09/23/23 09/24/23 09/25/23 09/26/23 23:59 23:59 23:59 23:59 Intake Total 580 902 970 420 Output Total 1550 1500 0 Balance -970 -598 970 420 Meds/Results Medications: Active Medications Generic Name Dose Route Start Last Admin Trade Name Freq PRN Reason Stop Dose Admin Acetaminophen 325 mg 09/22/23 15:58 Acetaminophen 325 Mg Tablet PO Q4H PRN Mild Pain (1-3) or Fever Hydrocodone Bitart/Acetaminophen 1 tab 09/22/23 15:58 09/26/23 05:39 Hydrocodone/Acetaminophen (*Crx) 5-325 Mg Tablet PO 1 tab Q4H PRN Administration Pain Rated 4-6 Atorvastatin Calcium 40 mg 09/23/23 09:00 09/26/23 08:47 Atorvastatin 40 Mg Tablet
[2023-09-26 14:01] LABS: Hematocrit 33.1 % (37.0-47.0); Hemoglobin 10.8 g/dL (12.0-15.0); Mean Corpuscular HGB Conc 32.6 g/dl (32-36); Mean Corpuscular Hemoglobin 30.4 pg (26-34); Mean Corpuscular Volume 93.2 fl (80-100); Mean Platelet Volume 9.5 fl (7.4-10.4); Platelet Count Result 196 k/mm3 (150-375); Red Blood Count 3.55 M/mm3 (4.2-5.4); Red Cell Distribution Width 14.2 % (11.5-14.5); White Blood Count 8.5 K/mm3 (4.5-10.0)
[2023-09-26 17:12] LABS: Glucose Point of Care 264 mg/dl (65-105)
[2023-09-26] MEDS: MEGESTROL ACETATE (*CHEMO) ORAL SUSP 40 MG/ML SYR 200 MG PO (17:58)
[2023-09-26 20:31] LABS: Glucose Point of Care 247 mg/dl (65-105)
[2023-09-26] MEDS: MIRTAZAPINE 30 MG TABLET PO (20:59)
[2023-09-27 05:11] VITALS: BP 155/41; PULSE 75; RESP 20; TEMP 36.6; O2SAT 96
[2023-09-27 07:52] LABS: Glucose Point of Care 118 mg/dl (65-105)
[2023-09-27] MEDS: MEGESTROL ACETATE (*CHEMO) ORAL SUSP 40 MG/ML SYR 200 MG PO ×2 (09:02→16:33)
[2023-09-27] MEDS: DICYCLOMINE HCL 10 MG CAPSULE 20 MG PO ×3 (09:02→16:33)
[2023-09-27] MEDS: buPROPion HCL XL (24 HR) 150 MG TABCR PO (09:02)
[2023-09-27] MEDS: CHOLESTYRAMINE LIGHT 4 GM POWD.PACK PO ×2 (09:02→21:05)
[2023-09-27] MEDS: HEPARIN SODIUM 5,000 UNITS/ML VIAL 5000 UNITS SUB-Q ×2 (09:02→21:05)
[2023-09-27] MEDS: ATORVASTATIN 40 MG TABLET PO (09:02)
[2023-09-27] MEDS: ESCITALOPRAM OXALATE 10 MG TABLET PO (09:02)
[2023-09-27] MEDS: rOPINIRole HCL 0.5 MG TABLET PO ×2 (09:03→16:33)
[2023-09-27] MEDS: HYDROcodone/acetaminophen (*CRX) 5-325 MG TABLET 1 TAB PO ×3 (09:03→19:20)
[2023-09-27] MEDS: levETIRAcetam 500 MG TABLET PO ×2 (09:03→21:05)
[2023-09-27 09:04] VITALS: PULSE 70
[2023-09-27] MEDS: PANTOPRAZOLE 40 MG TABLET PO (09:04)
[2023-09-27] MEDS: busPIRone HCL 10 MG TABLET PO ×2 (09:04→16:33)
[2023-09-27] MEDS: METOPROLOL TARTRATE 25 MG TABLET PO ×2 (09:04→21:05)
--- NOTE | 2023-09-27 11:20 | P.PNNP_ITS ---
Progress Note: A&P Assessment and Plan (1) End stage renal disease: Code(s): N18.6 - End stage renal disease Status: Chronic Assessment and Plan: * HD yesterday * continue T/T/s outpatient dialysis schedule * follow electrolytes, volume status, and clearance (2) Pubic ramus fracture: Code(s): S32.599A - Other specified fracture of unspecified pubis, initial encounter for closed fracture Status: Acute Assessment and Plan: * Orthopedic Surgery recommendations noted * conservative therapy - no surgical intervention needed * pain control * PT/OT as tolerated * awaiting placement (3) Wrist fracture: Qualifiers: Encounter type: initial encounter Fracture type: closed Laterality: right Qualified Code(s): S62.101A - Fracture of unspecified carpal bone, right wrist, initial encounter for closed fracture Code(s): S62.109A - Fracture of unspecified carpal bone, unspecified wrist, initial encounter for closed fracture Status: Acute Assessment and Plan: * pain control * Plastic Surgery recommendations noted * no surgical intervention * continue splint (4) Hypertension: Code(s): I10 - Essential (primary) hypertension Status: Chronic Assessment and Plan: * reasonable control at this time * resumed on home medications * follow trend of hemodynamics (5) Crohn's disease: Code(s): K50.90 - Crohn's disease, unspecified, without complications Status: Chronic Assessment and Plan: * chronic issue * loose stools/diarrhea at baseline * continue questran and bentyl (6) Anemia: Code(s): D64.9 - Anemia, unspecified Status: Chronic Assessment and Plan: * due to ESRD * Epogen with dialysis * follow trend of H/H Will continue to follow. Subjective Date/time seen: 09/27/23 11:20 Interval history: Follow-up for end stage renal disease on hemodialysis. Tolerated dialysis treatment yesterday without any issues or problems; able to move around better now given good pain control with current medications; no events overnight or earlier this morning; overall, feels pretty good. Exam Narrative: General: elderly female in NAD Heart: normal S1 and S2; no rub Lungs: clear anteriorly Abdomen: soft, nontender, nondistended, positive bowel sounds Extremities: no cyanosis or clubbing; no edema Skin: warm and dry Objective Data Vital Signs Vital Signs: Vital Signs Temp Pulse Resp BP Pulse Ox O2 Del Method FiO2 09/27/23 11:18 97.6 F 72 16 157/86 H 98 09/27/23 08:00 Room Air 09/27/23 09:04 70 09/27/23 05:11 97.9 F 75 20 155/41 H 96 09/26/23 21:02 98.4 F 90 18 122/51 L 97 09/26/23 19:57 87 20 99 Room Air 0 Intake/Output Intake/Output: Intake & Output 09/24/23 09/25/23 09/26/23 09/27/23 23:59 23:59 23:59 23:59 Intake Total 067 648 3352 560 Output Total 1500 0 1000 0 Balance -598 970 680 560 Meds/Results Medications: Active Medications Generic Name Dose Route Start Last Admin Trade Name Freq PRN Reason Stop Dose Admin Acetaminophen 325 mg 09/22/23 15:58
--- NOTE | 2023-09-27 11:20 | PM.PNNEP ---
Progress Note: A&P Assessment and Plan (1) End stage renal disease: Code(s): N18.6 - End stage renal disease Status: Chronic Assessment and Plan: HD yesterday continue T/T/s outpatient dialysis schedule follow electrolytes, volume status, and clearance (2) Pubic ramus fracture: Code(s): S32.599A - Other specified fracture of unspecified pubis, initial encounter for closed fracture Status: Acute Assessment and Plan: Orthopedic Surgery recommendations noted conservative therapy - no surgical intervention needed pain control PT/OT as tolerated awaiting placement (3) Wrist fracture: Qualifiers: Encounter type: initial encounter Fracture type: closed Laterality: right Qualified Code(s): S62.101A - Fracture of unspecified carpal bone, right wrist, initial encounter for closed fracture Code(s): S62.109A - Fracture of unspecified carpal bone, unspecified wrist, initial encounter for closed fracture Status: Acute Assessment and Plan: pain control Plastic Surgery recommendations noted no surgical intervention continue splint (4) Hypertension: Code(s): I10 - Essential (primary) hypertension Status: Chronic Assessment and Plan: reasonable control at this time resumed on home medications follow trend of hemodynamics (5) Crohn's disease: Code(s): K50.90 - Crohn's disease, unspecified, without complications Status: Chronic Assessment and Plan: chronic issue loose stools/diarrhea at baseline continue emory and tommie (6) Anemia: Code(s): D64.9 - Anemia, unspecified Status: Chronic Assessment and Plan: due to ESRD Epogen with dialysis follow trend of H/H Will continue to follow. Subjective Date/time seen: 09/27/23 11:20 Interval history: Follow-up for end stage renal disease on hemodialysis. Tolerated dialysis treatment yesterday without any issues or problems; able to move around better now given good pain control with current medications; no events overnight or earlier this morning; overall, feels pretty good. Exam Narrative: General: elderly female in NAD Heart: normal S1 and S2; no rub Lungs: clear anteriorly Abdomen: soft, nontender, nondistended, positive bowel sounds Extremities: no cyanosis or clubbing; no edema Skin: warm and dry Objective Data Vital Signs Vital Signs: Vital Signs Temp Pulse Resp BP Pulse Ox O2 Del Method FiO2 09/27/23 11:18 97.6 F 72 16 157/86 H 98 09/27/23 08:00 Room Air 09/27/23 09:04 70 09/27/23 05:11 97.9 F 75 20 155/41 H 96 09/26/23 21:02 98.4 F 90 18 122/51 L 97 09/26/23 19:57 87 20 99 Room Air 0 Intake/Output Intake/Output: Intake & Output 09/24/23 09/25/23 09/26/23 09/27/23 23:59 23:59 23:59 23:59 Intake Total 054 284 4691 560 Output Total 1500 0 1000 0 Balance -598 970 680 560 Meds/Results Medications: Active Medications Generic Name Dose Route Start Last Admin Trade Name Freq PRN Reason Stop Dose Admin Acetaminophen 325 mg 09/22/23 15:58 Acetaminophen 325 Mg Tablet PO Q4H PRN Mild Pain (1-3) or Fever Hydrocodone Bitart/Acetaminophen 1 tab 09/22/23 15:58 09/27/23 14:32 Hydrocodone/Acetaminophen (*Crx) 5-325 Mg Tablet PO 1 tab Q4H PRN Administration Pain Rated 4-6 Atorvastatin Calcium 40 mg 09/23/23 09:00 09/27/23 09:02 Atorvastatin 40 Mg Tablet PO 40 mg DAILY SUKI Administration Bupropion HCl 150 mg 09/23/23 09:00 09/27/23 09:02 Bupropion Hcl Xl (24 Hr) 150 Mg Tabcr PO 150 mg QAM SUKI Administration Buspirone HCl 10 mg 09/22/23 17:00 09/27/23 16:33 Buspirone Hcl 10 Mg Tablet PO 10 mg BID SUKI Administration Cholestyramine Resin 4 gm 09/22/23 22:00 09/27/23 09:02 Cholestyramine Light 4 Gm Powd.Pack PO 4 gm BID@1000,2200 SUKI Administration C
[2023-09-27 11:53] LABS: Glucose Point of Care 267 mg/dl (65-105)
--- NOTE | 2023-09-27 12:36 | PM.IMPN ---
Progress Note: A&P Assessment and Plan (1) Pubic ramus fracture: Code(s): S32.599A - Other specified fracture of unspecified pubis, initial encounter for closed fracture Status: Acute (2) Wrist fracture: Qualifiers: Encounter type: initial encounter Fracture type: closed Laterality: right Qualified Code(s): S62.101A - Fracture of unspecified carpal bone, right wrist, initial encounter for closed fracture Code(s): S62.109A - Fracture of unspecified carpal bone, unspecified wrist, initial encounter for closed fracture Status: Acute Plan 79-year-old female presented with uncontrolled pain following fractured pelvis. She decides at in assisted living facility and. She fell on 09/21/2023 and sustained right wrist fracture and right pelvis fracture. Patient was discharged back to her facility however patient was not able to ambulate due to pain and was brought to the ED for further evaluation. Vitals were stable on presentation no new injury or complaint on admission. Patient was admitted for PT OT and placement. Orthopedics were consulted for pelvic fracture ( nondisplaced fracture of right inferior pubic ramus) and will be managed non operatively and weight-bearing as tolerated. Plastic surgery was consulted for right wrist fracture and has been placed on splint. Patient will follow-up with them as an outpatient basis. End-stage renal disease on hemodialysis nephrology on board for inpatient hemodialysis. Anemia chronic disease Type 2 diabetes check A1c at [facility] Crohn's disease Disposition prefers SNF placement authorization pending Subjective Date/time seen: 09/27/23 12:36 Interval history: No overnight events pain controlled. No chest pain or shortness of breath. Review of Systems Review of Systems: All systems reviewed & are unremarkable except as noted in HPI and below Exam Narrative: GENERAL APPEARANCE: Appears to be in no acute distress. Alert and oriented x3 HEAD: normocephalic atraumatic ENT: Hearing grossly intact, no nasal discharge NECK: Neck supple, trachea midline. CARDIAC: Normal S1/S2. Rhythm is regular. No murmurs, rubs, or gallops. No cyanosis or pallor. Extremities are warm and well perfused LUNGS: Clear to auscultation without rales, rhonchi, wheezing or diminished breath sounds. Respirations even and unlabored. ABDOMEN: BS positive x 4 quadrants. Soft, nondistended, nontender. No guarding or rebound. MSK: Right wrist immobilized. Distal sensation intact. PERIPHERAL VASCULAR: Peripheral pulses palpable. Normal perfusion, cap refill <2 seconds. No edema. NEURO: Follows commands. No focal deficits. SKIN: [place] without lesions or eruptions. A LUE diaysis graft in place with palpable thrill. PSYCH: Stable, no paranoia or delusional thinking. Objective Data Vital Signs Vital Signs: Vital Signs - 24 hr 09/26/23 14:00 09/26/23 13:39 09/26/23 12:45 Temperature 97.4 F L 98.2 F Pulse Rate 87 89 87 Respiratory Rate 20 16 Blood Pressure 115/75 142/62 H 135/62 Pulse Oximetry 99 98 Oxygen Delivery Fraction of Inspired Oxygen 09/26/23 13:00 09/26/23 13:15 09/26/23 13:26 Temperature Pulse Rate 92 93 80 Respiratory Rate Blood Pressure 122/41 L 109/62 116/52 L Pulse Oximetry Oxygen Delivery Fraction of Inspired Oxygen 09/26/23 19:57 09/26/23 21:02 09/27/23 05:11 Temperature 98.4 F 97.9 F Pulse Rate 87 90 75 Respiratory Rate 20 18 20 Blood Pressure 122/51 L 155/41 H Pulse Oximetry 99 97 96 Oxygen Delivery Room Air Fraction of Inspired Oxygen 0 09/27/23 09:04 09/27/23 08:00 Temperature Pulse Rate 70 Respiratory Rate Blood Pressure Pulse Oximetry Oxygen Delivery Room Air Fraction of Inspired Oxygen Intake/Output Intake/Output: Intake & Output 09/24/23 09/25/23 09/26/23 09/27/23 23:59 23:59 23:59 23:59 Intake Total 025 409 3908 440 Output Total 1500 0 1000 0 Balance -598 970 680 440 Meds
--- NOTE | 2023-09-27 13:17 | PC.NURSE ---
pt refused insulin despite poc glucose reading 264 mg/dl. pt was educated about high blood sugar and the risks that come with it. pt states she does not take insulin at home and refuses to take it here. informed MD of her refusal.
[2023-09-27 13:48] VITALS: BP 157/86; PULSE 72; RESP 16; TEMP 36.4; O2SAT 98
[2023-09-27 16:36] LABS: Glucose Point of Care 181 mg/dl (65-105)
[2023-09-27 20:00] VITALS: O2SAT 98
[2023-09-27 21:05] VITALS: BP 127/90; PULSE 69; RESP 18; TEMP 36.2; O2SAT 98
[2023-09-27] MEDS: MIRTAZAPINE 30 MG TABLET PO (21:05)
[2023-09-27 21:29] LABS: Glucose Point of Care 172 mg/dl (65-105)
[2023-09-28] MEDS: HYDROcodone/acetaminophen (*CRX) 5-325 MG TABLET 1 TAB PO ×3 (01:49→20:55)
[2023-09-28 05:50] VITALS: BP 155/51; PULSE 70; RESP 20; TEMP 35.9; O2SAT 95
[2023-09-28 07:57] LABS: Glucose Point of Care 132 mg/dl (65-105)
[2023-09-28 08:00] VITALS: PULSE 70; RESP 20; O2SAT 95
[2023-09-28] MEDS: METOPROLOL TARTRATE 25 MG TABLET PO ×2 (09:04→20:56)
[2023-09-28] MEDS: HEPARIN SODIUM 5,000 UNITS/ML VIAL 5000 UNITS SUB-Q ×2 (09:04→20:56)
[2023-09-28] MEDS: ATORVASTATIN 40 MG TABLET PO (09:04)
[2023-09-28] MEDS: buPROPion HCL XL (24 HR) 150 MG TABCR PO (09:04)
[2023-09-28] MEDS: levETIRAcetam 500 MG TABLET PO ×2 (09:04→20:56)
[2023-09-28] MEDS: ESCITALOPRAM OXALATE 10 MG TABLET PO (09:04)
[2023-09-28] MEDS: PANTOPRAZOLE 40 MG TABLET PO (09:04)
[2023-09-28] MEDS: busPIRone HCL 10 MG TABLET PO ×2 (09:04→18:08)
[2023-09-28] MEDS: DICYCLOMINE HCL 10 MG CAPSULE 20 MG PO ×3 (09:04→18:07)
[2023-09-28] MEDS: rOPINIRole HCL 0.5 MG TABLET PO ×2 (09:05→18:08)
[2023-09-28] MEDS: MEGESTROL ACETATE (*CHEMO) ORAL SUSP 40 MG/ML SYR 200 MG PO (09:05)
--- NOTE | 2023-09-28 10:06 | PM.PNNEP ---
Progress Note: A&P Assessment and Plan (1) End stage renal disease: Code(s): N18.6 - End stage renal disease Status: Chronic Assessment and Plan: HD tomorrow continue T/T/s outpatient dialysis schedule follow electrolytes, volume status, and clearance (2) Pubic ramus fracture: Code(s): S32.599A - Other specified fracture of unspecified pubis, initial encounter for closed fracture Status: Acute Assessment and Plan: Orthopedic Surgery recommendations noted conservative therapy - no surgical intervention needed pain control PT/OT as tolerated awaiting placement (3) Wrist fracture: Qualifiers: Encounter type: initial encounter Fracture type: closed Laterality: right Qualified Code(s): S62.101A - Fracture of unspecified carpal bone, right wrist, initial encounter for closed fracture Code(s): S62.109A - Fracture of unspecified carpal bone, unspecified wrist, initial encounter for closed fracture Status: Acute Assessment and Plan: pain control Plastic Surgery recommendations noted no surgical intervention continue splint (4) Hypertension: Code(s): I10 - Essential (primary) hypertension Status: Chronic Assessment and Plan: reasonable control at this time resumed on home medications follow trend of hemodynamics (5) Crohn's disease: Code(s): K50.90 - Crohn's disease, unspecified, without complications Status: Chronic Assessment and Plan: chronic issue loose stools/diarrhea at baseline continue emory and tommie (6) Anemia: Code(s): D64.9 - Anemia, unspecified Status: Chronic Assessment and Plan: due to ESRD Epogen with dialysis follow trend of H/H Will continue to follow. Subjective Date/time seen: 09/28/23 10:06 Interval history: Follow-up for end stage renal disease on hemodialysis. No apparent distress noted at the time of my visit; placement attempting to be finalized per care coordination/social work; no new issues/events to report currently. Exam Narrative: General: elderly female in NAD Heart: normal S1 and S2; no rub Lungs: clear anteriorly Abdomen: soft, nontender, nondistended, positive bowel sounds Extremities: no cyanosis or clubbing; no edema Skin: warm and intact Objective Data Vital Signs Vital Signs: Vital Signs Temp Pulse Resp BP Pulse Ox O2 Del Method FiO2 09/28/23 10:02 97.6 F 67 18 126/50 L 100 09/28/23 08:00 70 20 95 Room Air 0 09/28/23 05:50 96.6 F L 70 20 155/51 H 95 09/27/23 21:05 97.2 F L 69 18 127/90 98 09/27/23 20:00 98 Room Air Intake/Output Intake/Output: Intake & Output 09/25/23 09/26/23 09/27/23 09/28/23 23:59 23:59 23:59 23:59 Intake Total 970 1680 1080 520 Output Total 0 1000 0 Balance 528 637 8970 520 Meds/Results Medications: Active Medications Generic Name Dose Route Start Last Admin Trade Name Freq PRN Reason Stop Dose Admin Acetaminophen 325 mg 09/22/23 15:58 Acetaminophen 325 Mg Tablet PO Q4H PRN Mild Pain (1-3) or Fever Hydrocodone Bitart/Acetaminophen 1 tab 09/22/23 15:58 09/28/23 13:31 Hydrocodone/Acetaminophen (*Crx) 5-325 Mg Tablet PO 1 tab Q4H PRN Administration Pain Rated 4-6 Atorvastatin Calcium 40 mg 09/23/23 09:00 09/28/23 09:04 Atorvastatin 40 Mg Tablet PO 40 mg DAILY SUKI Administration Bupropion HCl 150 mg 09/23/23 09:00 09/28/23 09:04 Bupropion Hcl Xl (24 Hr) 150 Mg Tabcr PO 150 mg QAM SUKI Administration Buspirone HCl 10 mg 09/22/23 17:00 09/28/23 09:04 Buspirone Hcl 10 Mg Tablet PO 10 mg BID SUKI Administration Cholestyramine Resin 4 gm 09/22/23 22:00 09/28/23 12:56 Cholestyramine Light 4 Gm Powd.Pack PO 4 gm BID@1000,2200 SUKI Administration Cyclobenzaprine HCl 5 mg 09/22/23 16:01 09/24/23 11:30 Cyclobenzaprine Hcl 5 M
--- NOTE | 2023-09-28 10:06 | P.PNNP_ITS ---
Progress Note: A&P Assessment and Plan (1) End stage renal disease: Code(s): N18.6 - End stage renal disease Status: Chronic Assessment and Plan: * HD tomorrow * continue T/T/s outpatient dialysis schedule * follow electrolytes, volume status, and clearance (2) Pubic ramus fracture: Code(s): S32.599A - Other specified fracture of unspecified pubis, initial encounter for closed fracture Status: Acute Assessment and Plan: * Orthopedic Surgery recommendations noted * conservative therapy - no surgical intervention needed * pain control * PT/OT as tolerated * awaiting placement (3) Wrist fracture: Qualifiers: Encounter type: initial encounter Fracture type: closed Laterality: right Qualified Code(s): S62.101A - Fracture of unspecified carpal bone, right wrist, initial encounter for closed fracture Code(s): S62.109A - Fracture of unspecified carpal bone, unspecified wrist, initial encounter for closed fracture Status: Acute Assessment and Plan: * pain control * Plastic Surgery recommendations noted * no surgical intervention * continue splint (4) Hypertension: Code(s): I10 - Essential (primary) hypertension Status: Chronic Assessment and Plan: * reasonable control at this time * resumed on home medications * follow trend of hemodynamics (5) Crohn's disease: Code(s): K50.90 - Crohn's disease, unspecified, without complications Status: Chronic Assessment and Plan: * chronic issue * loose stools/diarrhea at baseline * continue questran and bentyl (6) Anemia: Code(s): D64.9 - Anemia, unspecified Status: Chronic Assessment and Plan: * due to ESRD * Epogen with dialysis * follow trend of H/H Will continue to follow. Subjective Date/time seen: 09/28/23 10:06 Interval history: Follow-up for end stage renal disease on hemodialysis. No apparent distress noted at the time of my visit; placement attempting to be finalized per care coordination/social work; no new issues/events to report currently. Exam Narrative: General: elderly female in NAD Heart: normal S1 and S2; no rub Lungs: clear anteriorly Abdomen: soft, nontender, nondistended, positive bowel sounds Extremities: no cyanosis or clubbing; no edema Skin: warm and intact Objective Data Vital Signs Vital Signs: Vital Signs Temp Pulse Resp BP Pulse Ox O2 Del Method FiO2 09/28/23 10:02 97.6 F 67 18 126/50 L 100 09/28/23 08:00 70 20 95 Room Air 0 09/28/23 05:50 96.6 F L 70 20 155/51 H 95 09/27/23 21:05 97.2 F L 69 18 127/90 98 09/27/23 20:00 98 Room Air Intake/Output Intake/Output: Intake & Output 09/25/23 09/26/23 09/27/23 09/28/23 23:59 23:59 23:59 23:59 Intake Total 970 1680 1080 520 Output Total 0 1000 0 Balance 054 443 6620 520 Meds/Results Medications: Active Medications Generic Name Dose Route Start Last Admin Trade Name Freq PRN Reason Stop Dose Admin Acetaminophen 325 mg 09/22/23 15:58 Acetaminophen 325 Mg Tablet PO Q4H PRN Mild Pain (1-3) or Fe
[2023-09-28 11:46] LABS: Glucose Point of Care 158 mg/dl (65-105)
--- NOTE | 2023-09-28 11:46 | PM.DS ---
DS: Admitting Diagnosis Discharge Date Admitting Diagnosis fall DS: Discharge Diagnosis Discharge Diagnosis (1) Pubic ramus fracture: Code(s): S32.599A - Other specified fracture of unspecified pubis, initial encounter for closed fracture Status: Acute (2) Wrist fracture: Qualifiers: Encounter type: initial encounter Fracture type: closed Laterality: right Qualified Code(s): S62.101A - Fracture of unspecified carpal bone, right wrist, initial encounter for closed fracture Code(s): S62.109A - Fracture of unspecified carpal bone, unspecified wrist, initial encounter for closed fracture Status: Acute DS: Summary Hospital Course Hospital Course: 79-year-old female presented with uncontrolled pain following fractured pelvis. She decides at in assisted living facility where She fell on 09/21/2023 and sustained right wrist fracture and right pelvis fracture. Patient was discharged back to her facility however patient was not able to ambulate due to pain and was brought to the ED for further evaluation. Vitals were stable on presentation no new injury or complaint on admission. Patient was admitted for PT OT and placement. Orthopedics were consulted for pelvic fracture ( nondisplaced fracture of right inferior pubic ramus) and will be managed non operatively and weight-bearing as tolerated. Plastic surgery was consulted for right wrist fracture and has been placed on splint. Patient will follow-up with them as an outpatient basis. End-stage renal disease on hemodialysis nephrology on board for inpatient hemodialysis. this was continued while hospitalization Anemia chronic disease Type 2 diabetes A1c 6.9. Placed on SSI. Continue to follow-up as an outpatient to discuss treatment options Crohn's disease Disposition prefers SNF placement authorization obtained and will be discharged to SNF today. Time Spent with Patient Time attestation: Total time spent providing and/or coordinating discharge services: 35 minutes Exam Narrative: GENERAL APPEARANCE: Appears to be in no acute distress. Alert and oriented x3 HEAD: normocephalic atraumatic ENT: Hearing grossly intact, no nasal discharge NECK: Neck supple, trachea midline. CARDIAC: Normal S1/S2. Rhythm is regular. No murmurs, rubs, or gallops. No cyanosis or pallor. Extremities are warm and well perfused LUNGS: Clear to auscultation without rales, rhonchi, wheezing or diminished breath sounds. Respirations even and unlabored. ABDOMEN: BS positive x 4 quadrants. Soft, nondistended, nontender. No guarding or rebound. MSK: Right wrist immobilized. Distal sensation intact. PERIPHERAL VASCULAR: Peripheral pulses palpable. Normal perfusion, cap refill <2 seconds. No edema. NEURO: Follows commands. No focal deficits. SKIN: [place] without lesions or eruptions. A LUE diaysis graft in place with palpable thrill. PSYCH: Stable, no paranoia or delusional thinking. DS: Data Data Completed and Pending Labs on day of discharge: Labs from last 24 hours 09/28/23 09/28/23 09/27/23 11:39 07:46 21:05 POC Capillary Glucose 158 H 132 H 172 H 09/27/23 09/27/23 16:31 11:47 POC Capillary Glucose 181 H 267 H Discharge Plan Discharge Attending physician on discharge: Mendez Chen Consulting providers: Taqueria Martinez; Lan Strong; Marcelle Howard Discharging Clinician: Mendez Chen Anticipated Discharge Date/Time: 09/28/23 11:43 Patient Disposition: SNF Activity: as tolerated Diet: heart healthy and renal Discharge Instructions: hemodialysis as previously scheduled Thursday accuchecks ac and hs. Stand Alone Forms: General Discharge Information Follow-up/Referrals: Jae Vanessa MD [Physician] - 1 Week Lan Strong MD [Physician] - 2 Weeks Justen Singer MD [Primary Care Provider] - 1 Week Discharge Medications: Continued dicyclomine 2
[2023-09-28] MEDS: CHOLESTYRAMINE LIGHT 4 GM POWD.PACK PO (12:56)
[2023-09-28 13:32] VITALS: BP 126/50; PULSE 67; RESP 18; TEMP 36.4; O2SAT 100
--- NOTE | 2023-09-28 16:32 | PM.IMPN ---
Progress Note: A&P Assessment and Plan (1) Pubic ramus fracture: Code(s): S32.599A - Other specified fracture of unspecified pubis, initial encounter for closed fracture Status: Acute (2) Wrist fracture: Qualifiers: Encounter type: initial encounter Fracture type: closed Laterality: right Qualified Code(s): S62.101A - Fracture of unspecified carpal bone, right wrist, initial encounter for closed fracture Code(s): S62.109A - Fracture of unspecified carpal bone, unspecified wrist, initial encounter for closed fracture Status: Acute Plan 79-year-old female presented with uncontrolled pain following fractured pelvis. She decides at in assisted living facility and. She fell on 09/21/2023 and sustained right wrist fracture and right pelvis fracture. Patient was discharged back to her facility however patient was not able to ambulate due to pain and was brought to the ED for further evaluation. Vitals were stable on presentation no new injury or complaint on admission. Patient was admitted for PT OT and placement. Orthopedics were consulted for pelvic fracture ( nondisplaced fracture of right inferior pubic ramus) and will be managed non operatively and weight-bearing as tolerated. Plastic surgery was consulted for right wrist fracture and has been placed on splint. Patient will follow-up with them as an outpatient basis. End-stage renal disease on hemodialysis nephrology on board for inpatient hemodialysis. Anemia chronic disease Type 2 diabetes check A1c at [facility] Crohn's disease Disposition prefers SNF placement authorization pending Subjective Date/time seen: 09/28/23 16:32 Interval history: No overnight events pain controlled. No chest pain or shortness of breath. SNF authorization still pending Review of Systems Review of Systems: All systems reviewed & are unremarkable except as noted in HPI and below Exam Narrative: GENERAL APPEARANCE: Appears to be in no acute distress. Alert and oriented x3 HEAD: normocephalic atraumatic ENT: Hearing grossly intact, no nasal discharge NECK: Neck supple, trachea midline. CARDIAC: Normal S1/S2. Rhythm is regular. No murmurs, rubs, or gallops. No cyanosis or pallor. Extremities are warm and well perfused LUNGS: Clear to auscultation without rales, rhonchi, wheezing or diminished breath sounds. Respirations even and unlabored. ABDOMEN: BS positive x 4 quadrants. Soft, nondistended, nontender. No guarding or rebound. MSK: Right wrist immobilized. Distal sensation intact. PERIPHERAL VASCULAR: Peripheral pulses palpable. Normal perfusion, cap refill <2 seconds. No edema. NEURO: Follows commands. No focal deficits. SKIN: [place] without lesions or eruptions. A LUE diaysis graft in place with palpable thrill. PSYCH: Stable, no paranoia or delusional thinking. Objective Data Vital Signs Vital Signs: Vital Signs - 24 hr 09/27/23 20:00 09/27/23 21:05 09/28/23 05:50 Temperature 97.2 F L 96.6 F L Pulse Rate 69 70 Respiratory Rate 18 20 Blood Pressure 127/90 155/51 H Pulse Oximetry 98 98 95 Oxygen Delivery Room Air Fraction of Inspired Oxygen 09/28/23 08:00 09/28/23 13:32 Temperature 97.6 F Pulse Rate 70 67 Respiratory Rate 20 18 Blood Pressure 126/50 L Pulse Oximetry 95 100 Oxygen Delivery Room Air Fraction of Inspired Oxygen 0 Intake/Output Intake/Output: Intake & Output 09/25/23 09/26/23 09/27/23 09/28/23 23:59 23:59 23:59 23:59 Intake Total 970 1680 1080 520 Output Total 0 1000 0 Balance 142 445 3015 520 Meds/Results Medications: Active Medications Generic Name Dose Route Start Last Admin Trade Name Freq PRN Reason Stop Dose Admin Acetaminophen 325 mg 09/22/23 15:58 Acetaminophen 325 Mg Tablet PO Q4H PRN Mild Pain (1-3) or Fever Hydrocodone Bitart/Acetaminophen 1 tab 09/22/23 15:58 09/28/23 13:31 Hydrocodone/Acetaminophen (*Crx) 5-325 Mg Tablet PO 1 tab Q4H PRN Admini
[2023-09-28 17:09] LABS: Glucose Point of Care 157 mg/dl (65-105)
[2023-09-28 20:00] VITALS: O2SAT 92
[2023-09-28 20:55] VITALS: BP 133/60; PULSE 69; RESP 18; TEMP 36.5; O2SAT 92
[2023-09-28] MEDS: MIRTAZAPINE 30 MG TABLET PO (20:56)
[2023-09-28 21:34] LABS: Glucose Point of Care 265 mg/dl (65-105)
[2023-09-29] VITALS (20 sets, daily range): BP systolic 101–131; BP diastolic 50–84; PULSE 59–75; RESP 16–20; TEMP 36–37; O2SAT 95–98
[2023-09-29] MEDS: HYDROcodone/acetaminophen (*CRX) 5-325 MG TABLET 1 TAB PO ×3 (03:16→19:42)
[2023-09-29 06:56] LABS: Hematocrit 31.3 % (37.0-47.0); Hemoglobin 10.2 g/dL (12.0-15.0); Mean Corpuscular HGB Conc 32.6 g/dl (32-36); Mean Corpuscular Hemoglobin 30.5 pg (26-34); Mean Corpuscular Volume 93.7 fl (80-100); Mean Platelet Volume 9.1 fl (7.4-10.4); Platelet Count Result 233 k/mm3 (150-375); Red Blood Count 3.34 M/mm3 (4.2-5.4); Red Cell Distribution Width 14.7 % (11.5-14.5); White Blood Count 10.9 K/mm3 (4.5-10.0)
[2023-09-29 07:05] LABS: Albumin Level 3.6 g/dL (3.5-5.1); Anion Gap 15 mmol/L (4-12); Blood Urea Nitrogen 54 mg/dL (7-17); Calcium 8.9 mg/dL (8.4-10.2); Carbon Dioxide 23 mmol/L (22-30); Chloride 101 mmol/L (98-107); Estimated CRCL calculation 6 ml/min; Estimated Glomerular Filt Rate 5; Glucose 137 mg/dL (65-110); Potassium 4.2 mmol/L (3.4-5.0); Sodium 139 mmol/L (137-145)
[2023-09-29 07:30] LABS: Glucose Point of Care 141 mg/dl (65-105)
[2023-09-29] MEDS: METOPROLOL TARTRATE 25 MG TABLET PO ×2 (10:37→19:41)
[2023-09-29] MEDS: DICYCLOMINE HCL 10 MG CAPSULE 20 MG PO ×3 (10:37→18:30)
[2023-09-29] MEDS: levETIRAcetam 500 MG TABLET PO ×2 (10:38→19:41)
[2023-09-29] MEDS: PANTOPRAZOLE 40 MG TABLET PO (10:38)
[2023-09-29] MEDS: busPIRone HCL 10 MG TABLET PO ×2 (10:38→18:29)
[2023-09-29] MEDS: ESCITALOPRAM OXALATE 10 MG TABLET PO (10:38)
[2023-09-29] MEDS: buPROPion HCL XL (24 HR) 150 MG TABCR PO (10:38)
[2023-09-29] MEDS: rOPINIRole HCL 0.5 MG TABLET PO ×2 (10:38→18:30)
[2023-09-29] MEDS: ATORVASTATIN 40 MG TABLET PO (10:38)
[2023-09-29] MEDS: HEPARIN SODIUM 5,000 UNITS/ML VIAL 5000 UNITS SUB-Q ×2 (10:39→19:41)
[2023-09-29] MEDS: CHOLESTYRAMINE LIGHT 4 GM POWD.PACK PO (10:39)
[2023-09-29 11:18] LABS: Glucose Point of Care 132 mg/dl (65-105)
--- NOTE | 2023-09-29 12:39 | PCNWS ---
Weekly nutritional screen. Patient is tolerating current Renal diet with adequate intake most meals. No weight loss reported. Will send Nepro shakes daily for pt to consume during dialysis times.
--- NOTE | 2023-09-29 15:20 | PM.PNNEP ---
Progress Note: A&P Assessment and Plan (1) End stage renal disease: Code(s): N18.6 - End stage renal disease Status: Chronic Assessment and Plan: HD today continue T/T/s outpatient dialysis schedule follow electrolytes, volume status, and clearance (2) Pubic ramus fracture: Code(s): S32.599A - Other specified fracture of unspecified pubis, initial encounter for closed fracture Status: Acute Assessment and Plan: Orthopedic Surgery recommendations noted conservative therapy - no surgical intervention needed pain control PT/OT as tolerated awaiting placement (3) Wrist fracture: Qualifiers: Encounter type: initial encounter Fracture type: closed Laterality: right Qualified Code(s): S62.101A - Fracture of unspecified carpal bone, right wrist, initial encounter for closed fracture Code(s): S62.109A - Fracture of unspecified carpal bone, unspecified wrist, initial encounter for closed fracture Status: Acute Assessment and Plan: pain control Plastic Surgery recommendations noted no surgical intervention continue splint (4) Hypertension: Code(s): I10 - Essential (primary) hypertension Status: Chronic Assessment and Plan: reasonable control at this time resumed on home medications follow trend of hemodynamics (5) Crohn's disease: Code(s): K50.90 - Crohn's disease, unspecified, without complications Status: Chronic Assessment and Plan: chronic issue loose stools/diarrhea at baseline continue emory and tommie (6) Anemia: Code(s): D64.9 - Anemia, unspecified Status: Chronic Assessment and Plan: due to ESRD Epogen with dialysis follow trend of H/H Will continue to follow. Subjective Date/time seen: 09/29/23 15:20 Interval history: Follow-up regarding end stage renal disease on hemodialysis. Tolerating dialysis treatment at the time of my visit (seen on HD at 3:10PM); no new issues or problems voiced; hoping for discharge today assuming insurance approved SNF/rehab; no apparent distress otherwise; pain control seems well controlled. Exam Narrative: General: elderly female in NAD Heart: normal S1 and S2; no rub Lungs: clear anteriorly Abdomen: soft, nontender, nondistended, positive bowel sounds Extremities: no cyanosis or clubbing; no edema Skin: no rash or nodules Objective Data Vital Signs Vital Signs: Vital Signs Temp Pulse Resp BP Pulse Ox O2 Del Method FiO2 09/29/23 15:15 61 121/52 L 09/29/23 15:00 60 117/59 L 09/29/23 14:21 59 L 119/54 L 09/29/23 14:11 97.5 F L 64 16 119/54 L 95 09/29/23 14:11 95 09/29/23 05:10 96.8 F L 66 20 123/84 98 09/28/23 20:00 92 Room Air 09/28/23 20:55 97.7 F 69 18 133/60 92 Intake/Output Intake/Output: Intake & Output 09/26/23 09/27/23 09/28/23 09/29/23 23:59 23:59 23:59 23:59 Intake Total 1680 1080 760 540 Output Total 1000 0 Balance 680 1080 760 540 Meds/Results Medications: Active Medications Generic Name Dose Route Start Last Admin Trade Name Freq PRN Reason Stop Dose Admin Acetaminophen 325 mg 09/22/23 15:58 Acetaminophen 325 Mg Tablet PO Q4H PRN Mild Pain (1-3) or Fever Hydrocodone Bitart/Acetaminophen 1 tab 09/22/23 15:58 09/29/23 10:38 Hydrocodone/Acetaminophen (*Crx) 5-325 Mg Tablet PO 1 tab Q4H PRN Administration Pain Rated 4-6 Atorvastatin Calcium 40 mg 09/23/23 09:00 09/29/23 10:38 Atorvastatin 40 Mg Tablet PO 40 mg DAILY SUKI Administration Bupropion HCl 150 mg 09/23/23 09:00 09/29/23 10:38 Bupropion Hcl Xl (24 Hr) 150 Mg Tabcr PO 150 mg QAM SUKI Administration Buspirone HCl 10 mg 09/22/23 17:00 09/29/23 10:38 Buspirone Hcl 10 Mg Tablet PO 10 mg BID SUKI Administration Cholestyramine Resin 4 gm 09/22/23 22:00 09/29/23 10:3
--- NOTE | 2023-09-29 15:20 | P.PNNP_ITS ---
Progress Note: A&P Assessment and Plan (1) End stage renal disease: Code(s): N18.6 - End stage renal disease Status: Chronic Assessment and Plan: * HD today * continue T/T/s outpatient dialysis schedule * follow electrolytes, volume status, and clearance (2) Pubic ramus fracture: Code(s): S32.599A - Other specified fracture of unspecified pubis, initial encounter for closed fracture Status: Acute Assessment and Plan: * Orthopedic Surgery recommendations noted * conservative therapy - no surgical intervention needed * pain control * PT/OT as tolerated * awaiting placement (3) Wrist fracture: Qualifiers: Encounter type: initial encounter Fracture type: closed Laterality: right Qualified Code(s): S62.101A - Fracture of unspecified carpal bone, right wrist, initial encounter for closed fracture Code(s): S62.109A - Fracture of unspecified carpal bone, unspecified wrist, initial encounter for closed fracture Status: Acute Assessment and Plan: * pain control * Plastic Surgery recommendations noted * no surgical intervention * continue splint (4) Hypertension: Code(s): I10 - Essential (primary) hypertension Status: Chronic Assessment and Plan: * reasonable control at this time * resumed on home medications * follow trend of hemodynamics (5) Crohn's disease: Code(s): K50.90 - Crohn's disease, unspecified, without complications Status: Chronic Assessment and Plan: * chronic issue * loose stools/diarrhea at baseline * continue questran and bentyl (6) Anemia: Code(s): D64.9 - Anemia, unspecified Status: Chronic Assessment and Plan: * due to ESRD * Epogen with dialysis * follow trend of H/H Will continue to follow. Subjective Date/time seen: 09/29/23 15:20 Interval history: Follow-up regarding end stage renal disease on hemodialysis. Tolerating dialysis treatment at the time of my visit (seen on HD at 3:10PM); no new issues or problems voiced; hoping for discharge today assuming insurance approved SNF/rehab; no apparent distress otherwise; pain control seems well controlled. Exam Narrative: General: elderly female in NAD Heart: normal S1 and S2; no rub Lungs: clear anteriorly Abdomen: soft, nontender, nondistended, positive bowel sounds Extremities: no cyanosis or clubbing; no edema Skin: no rash or nodules Objective Data Vital Signs Vital Signs: Vital Signs Temp Pulse Resp BP Pulse Ox O2 Del Method FiO2 09/29/23 15:15 61 121/52 L 09/29/23 15:00 60 117/59 L 09/29/23 14:21 59 L 119/54 L 09/29/23 14:11 97.5 F L 64 16 119/54 L 95 09/29/23 14:11 95 09/29/23 05:10 96.8 F L 66 20 123/84 98 09/28/23 20:00 92 Room Air 09/28/23 20:55 97.7 F 69 18 133/60 92 Intake/Output Intake/Output: Intake & Output 09/26/23 09/27/23 09/28/23 09/29/23 23:59 23:59 23:59 23:59 Intake Total 1680 1080 760 540 Output Total 1000 0 Balance 680 1080 760 540 Meds/Results Medications: Active Medications Generic Name Dose Route Start Last Admin
[2023-09-29] MEDS: EPOETIN ALFA-EPBX 4,000 UNITS/ML VIAL 4000 UNITS IV PUSH (17:00)
[2023-09-29] MEDS: HEPARIN SODIUM 1,000 UNITS/ML VIAL 3000 UNITS (17:01)
[2023-09-29 18:07] LABS: SARS-CoV-2 RNA PCR Negative (Negative)
[2023-09-29] MEDS: MIRTAZAPINE 30 MG TABLET PO (19:41)
== END 2023-09-29 19:57 ==
LOC: ANHED 12:48 → ANH3MEDSUR 15:13
PROVIDERS: Internal Medicine Nephrology; Nurse Practitioner Family; Admitting Provider Internal Medicine; Emergency Provider Emergency Medicine; PCP Family Medicine Adolescent Medicine; Visit Provider Internal Medicine
DX: G89.11 Acute pain due to trauma (principal); R10.2 Pelvic and perineal pain; S32.591D Other specified fracture of right pubis, subsequent encounter for fracture with routine healing; S62.101D Fracture of unspecified carpal bone, right wrist, subsequent encounter for fracture with routine healing; W01.0XXD Fall on same level from slipping, tripping and stumbling without subsequent striking against object, subsequent encounter; I12.0 Hypertensive chronic kidney disease with stage 5 chronic kidney disease or end stage renal disease; E11.22 Type 2 diabetes mellitus with diabetic chronic kidney disease; N18.6 End stage renal disease; Z99.2 Dependence on renal dialysis; D63.1 Anemia in chronic kidney disease; E11.42 Type 2 diabetes mellitus with diabetic polyneuropathy; E11.51 Type 2 diabetes mellitus with diabetic peripheral angiopathy without gangrene; E03.9 Hypothyroidism, unspecified; Z11.52 Encounter for screening for COVID-19; G47.33 Obstructive sleep apnea (adult) (pediatric); K50.90 Crohn's disease, unspecified, without complications; I25.10 Atherosclerotic heart disease of native coronary artery without angina pectoris; K21.9 Gastro-esophageal reflux disease without esophagitis; N25.0 Renal osteodystrophy; G25.81 Restless legs syndrome; Z95.5 Presence of coronary angioplasty implant and graft; Z90.5 Acquired absence of kidney; Z85.528 Personal history of other malignant neoplasm of kidney; Z66 Do not resuscitate
CPT/HCPCS: 36415; 80048; 80053; 80069; 82948; 83036; 84100; 85025; 85027; 86706; 87340; 87635; 96372; 96374; 96375; 96376; 97110; 97116; 97161; 97166; 97530; 97535; 99285; A9270; G0257; G0378; J1644; J2270; J7030; Q5105

== ENCOUNTER 2023-10-05 00:14 | Emergency (ER) | payer OTHER, MEDICARE, SELFPAY ==
--- NOTE | ~2023-10-05 | CT_ITS ---
EXAMINATION: CT cervical spine wo con DATE: 10/05/2023 00:44 INDICATION: Status post fall. Neck pain. TECHNIQUE: Computed tomography (CT) of the cervical spine was performed without intravenous contrast. The dose-length product was 377 mGy-cm. Automated exposure control and iterative reconstruction tech nique were employed. COMPARISON: None FINDINGS: Straightening of cervical lordosis. There is degenerative anterolisthesis at C3-4. There is disc narrowing at C6-7. There is multilevel uncinate and facet hypertrophy. Lung apices are unremark able. No fracture or traumatic malalignment. IMPRESSION: 1. No acute abnormality of the cervical spine. 2: Moderate cervical spondylosis. Reviewed, dictated and finalized at location B.
--- NOTE | ~2023-10-05 | CT_ITS ---
CT brain wo con Ordering provider: Ramon Mclaughlin History: 78 years Female with . Fall . Comparison: June 03, 2023 Technique: CT of the head without contrast. Radiation reduction technique utilized. DLP is 681mGy-cm. FINDINGS: BRAIN PARENCHYMA AND CSF SPACES: Mild leukoaraiosis and diffuse cortical atrophy. Mild atheromatous d isease. Widening of the CSF space in the frontal areas which may indicate CSF hygroma. 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 Small frontal right parafalcine meningioma is noted measuring 6 mm unchang ed from previous examination. No midline shift, mass effect or hemorrhage. The brain parenchyma and CSF spaces are otherwise normal. VISUALIZED PARANASAL SINUSES: Bilateral maxillary sinus disease. MASTOIDS: Well aerated. BONES: The bones appear intact. SOFT TISSUES: Visualized nasopharynx is normal. Superficial soft tissues are normal. IMPRESSION: No acute intracranial findings. Possible bifrontal CSF hygroma. 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 Small frontal right parafalcine meningioma unchanged from previous examination. Reviewed, dictated and finalized at location A.
--- NOTE | ~2023-10-05 | XR_ITS ---
EXAMINATION: XR pelvis 1-2V DATE: 10/05/2023 00:48 INDICATION: Pelvic pain post fall TECHNIQUE: An anteroposterior view of the pelvis was obtained. COMPARISON: CT dated 09/21/2023 FINDINGS: Subtle cortical irregularity and suggestion of some early callus formation at a nondisplaced fracture at the right inferior pubic ramus. No new fractures identified. Alignment remains anatomic. Moderate osteoarthritis at the bilateral sacroiliac joints. Bilateral hip joint spaces appear relatively pres erved. Moderate lower lumbar spondylosis with severe facet osteoarthritis. IMPRESSION: 1. Nondisplaced subacute fracture of the right inferior pubic ramus. No acute osseous abnormality. Reviewed, dictated and finalized at location A. IMPRESSION: 1. Nondisplaced subacute fracture of the right inferior pubic ramus. No acute o sseous abnormality.
[2023-10-05 00:12] VITALS: BP 156/67; PULSE 82; RESP 16; TEMP 36.4; O2SAT 100
[2023-10-05 01:05] VITALS: BP 147/57; PULSE 86; RESP 16; O2SAT 98
[2023-10-05] MEDS: ACETAMINOPHEN 500 MG TABLET 1000 MG PO (01:56)
--- NOTE | 2023-10-05 02:06 | ED.GENADULT ---
HPI - General Adult General Chief complaint: Fall Stated complaint: FELL HIT HEAD Time Seen by Provider: 10/05/23 00:20 History of Present Illness HPI narrative: This is a 70-year-old female presenting after a fall. Patient said she sat on a slippery pillow on her bed and then slid off her bed onto the ground. She then landed on her rear end. She believe she may have hit her head but is unsure. Patient is not in any pain at this time. Related Data Allergies Allergy/AdvReac Type Severity Reaction Status Date / Time cortisone Allergy Intermediate Dyspnea / Verified 09/22/23 15:14 SOB Penicillins Allergy Intermediate Dyspnea / Verified 09/22/23 15:14 SOB ceftriaxone [From Rocephin] Allergy Difficulty Verified 09/22/23 15:14 Breathing PMFSH Past Medical History Medical History Acute respiratory failure Anemia of chronic disease Callus of foot Coronary artery disease History of stent x3. COVID-19 virus infection Crohn's disease Diet-controlled diabetes mellitus A1c was 7.0 in 10/2018 and 4.8 in 01/2020. End-stage renal disease on hemodialysis Erythropoietin deficiency anemia Gastroesophageal reflux disease History of kidney stones Hypothyroidism Normal colonoscopy (08/2019) Obstructive sleep apnea No longer using CPAP after 40 lb weight loss. Osteomyelitis of toe of left foot Pericardial effusion (01/2020) Small pericardial effusion on echocardiogram, felt to be related to uremia. Peripheral autonomic neuropathy due to diabetes mellitus Peripheral vascular disease Peritonitis (01/2020) Pneumonia Renal cell carcinoma (2004) Renal osteodystrophy Restless leg syndrome Shingles (1991) Wound of right foot Surgical History Surgical History Amputation toe Left 2nd toe. History of appendectomy History of bilateral carpal tunnel release History of cardiac catheterization With stent x3. History of cholecystectomy History of colonoscopy History of complete ray amputation of second toe of left foot History of complete ray amputation of second toe of right foot History of cystoscopy With ureteral stents for kidney stones. History of foot surgery Repair of left foot fracture with pinning. History of hysterectomy (1976) With cystocele and rectocele repairs. History of partial nephrectomy (2004) Left partial nephrectomy for kidney cancer. History of tonsillectomy Family History Family History Father Renal cell carcinoma Acute myocardial infarction Cerebrovascular accident Colon polyp Heart disease Hypertension Mother Lung cancer Acute myocardial infarction Cerebrovascular accident Depression Heart disease Hypertension Son Asthma Social History Social History Social History: Surrogate medical decision maker: Dong Maher, son. Code status: DNR Smoking packs per day: 1 Smoking cigarettes per day: 20.0 Years smoked: 20 Smoking pack-years: 20.00 Smoking status: Never smoker Tobacco type: cigarettes Second hand tobacco smoke exposure: Yes Alcohol intake: never Substance use: never Do You Feel Safe in your Home?: Yes Lack of Transportation: YES Lack of Food: Never True Current Housing: I Have Housing Concerned About Future Housing: No Difficulty Paying Gas/Electric Bills: No Difficulty Paying for Meds: No Currently Unemployed: No Education: Decline to Answer Difficulty w/ Childcare or Family Care: No Living arrangements: alone Additional living arrangements comments: , lives in [place]. 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 Spiritual care concerns: No Agree to blood products: Yes Exam Narrative: APPEARANCE: No apparent
== END 2023-10-05 03:28 ==
PROVIDERS: Emergency Provider Emergency Medicine; PCP Family Medicine Adolescent Medicine
DX: Z04.3 Encounter for examination and observation following other accident (principal); S32.591D Other specified fracture of right pubis, subsequent encounter for fracture with routine healing; X58.XXXD Exposure to other specified factors, subsequent encounter; R93.0 Abnormal findings on diagnostic imaging of skull and head, not elsewhere classified; M47.812 Spondylosis without myelopathy or radiculopathy, cervical region; E11.22 Type 2 diabetes mellitus with diabetic chronic kidney disease; N18.6 End stage renal disease; Z99.2 Dependence on renal dialysis; D63.1 Anemia in chronic kidney disease; N25.0 Renal osteodystrophy; E11.43 Type 2 diabetes mellitus with diabetic autonomic (poly)neuropathy; E11.51 Type 2 diabetes mellitus with diabetic peripheral angiopathy without gangrene; I73.9 Peripheral vascular disease, unspecified; I25.10 Atherosclerotic heart disease of native coronary artery without angina pectoris; E03.9 Hypothyroidism, unspecified; K50.90 Crohn's disease, unspecified, without complications; K21.9 Gastro-esophageal reflux disease without esophagitis; G47.33 Obstructive sleep apnea (adult) (pediatric); G25.81 Restless legs syndrome; Z66 Do not resuscitate; Z95.5 Presence of coronary angioplasty implant and graft; Z86.16 Personal history of COVID-19; Z87.442 Personal history of urinary calculi; Z87.01 Personal history of pneumonia (recurrent); Z85.528 Personal history of other malignant neoplasm of kidney; Z87.891 Personal history of nicotine dependence; Z89.422 Acquired absence of other left toe(s); Z89.421 Acquired absence of other right toe(s); Z90.49 Acquired absence of other specified parts of digestive tract; Z90.710 Acquired absence of both cervix and uterus; Z90.5 Acquired absence of kidney; Z79.899 Other long term (current) drug therapy; W06.XXXA Fall from bed, initial encounter
CPT/HCPCS: 70450; 72125; 72170; 99284; A9270

== ENCOUNTER 2023-12-22 14:34 | Outpatient (CLI) | payer MEDICARE, SELFPAY ==
--- NOTE | ~2023-12-22 | XR_ITS ---
Right wrist Technique: PA, oblique, lateral, and ulnar deviation views were obtained. Clinical History: Fracture COMPARISON: 09/21/2023 Findings: There are subacute probable healing fracture of the distal radius, with fracture line still visible as discrete lucencies, but surrounding callus formation is present. Alignment is unchanged. Stable widening of the scapholunate interval. There is advanced degenerative change of the triscaphe joint and first CMC joint. Trapezium is absent. Soft tissues are unremarkable. Impression: Subacute healing fracture of the distal radius, unchanged in alignment from prior exam. Scapholunate dissociation, unchanged. Degenerative changes at the radial side of the wrist, as above. Reviewed, dictated and finalized at location M. Impression: Subacute healing fracture of the distal radius, unchanged in alignment from gigi or exam. Scapholunate dissociation, unchanged. Degenerative changes at the radial side of the wrist, as above.
== END 2023-12-22 14:35 | disposition home or self-care (01) ==
PROVIDERS: PCP Family Medicine Adolescent Medicine; Visit Provider Plastic Surgery
DX: S52.501D Unspecified fracture of the lower end of right radius, subsequent encounter for closed fracture with routine healing (principal); X58.XXXD Exposure to other specified factors, subsequent encounter; M19.031 Primary osteoarthritis, right wrist; M18.11 Unilateral primary osteoarthritis of first carpometacarpal joint, right hand
CPT/HCPCS: 73110

== ENCOUNTER 2024-01-14 10:14 | Emergency (ER) | payer MEDICARE, SELFPAY ==
[2024-01-14 10:17] VITALS: BP 109/68; PULSE 96; RESP 16; O2SAT 95
--- NOTE | 2024-01-14 11:10 | ED.GENADULT ---
HPI - General Adult General Chief complaint: Recheck/Abnormal Lab/Rx Stated complaint: low BP, weakness Time Seen by Provider: 01/14/24 10:16 History of Present Illness HPI narrative: 70-year-old female presents to the emergency department for evaluation for weakness. Patient states after she got her dialysis on Thursday and afterwards was feeling lightheaded. Patient states she no longer feels weak and patient's blood pressure is improved. At time of evaluation patient is not hypotensive and patient denies any pain or complaints. Related Data Allergies Allergy/AdvReac Type Severity Reaction Status Date / Time cortisone Allergy Intermediate Dyspnea / Verified 12/22/23 13:39 SOB Penicillins Allergy Intermediate Dyspnea / Verified 12/22/23 13:39 SOB ceftriaxone [From Rocephin] Allergy Difficulty Verified 12/22/23 13:39 Breathing Review of Systems Review of Systems: All systems reviewed & are unremarkable except as noted in HPI and below PMFSH Past Medical History Medical History Acute respiratory failure Anemia of chronic disease Callus of foot Coronary artery disease History of stent x3. COVID-19 virus infection Crohn's disease Diet-controlled diabetes mellitus A1c was 7.0 in 10/2018 and 4.8 in 01/2020. End-stage renal disease on hemodialysis Erythropoietin deficiency anemia Gastroesophageal reflux disease History of kidney stones Hypothyroidism Normal colonoscopy (08/2019) Obstructive sleep apnea No longer using CPAP after 40 lb weight loss. Osteomyelitis of toe of left foot Pericardial effusion (01/2020) Small pericardial effusion on echocardiogram, felt to be related to uremia. Peripheral autonomic neuropathy due to diabetes mellitus Peripheral vascular disease Peritonitis (01/2020) Pneumonia Renal cell carcinoma (2004) Renal osteodystrophy Restless leg syndrome Shingles (1991) Wound of right foot Surgical History Surgical History Amputation toe Left 2nd toe. History of appendectomy History of bilateral carpal tunnel release History of cardiac catheterization With stent x3. History of cholecystectomy History of colonoscopy History of complete ray amputation of second toe of left foot History of complete ray amputation of second toe of right foot History of cystoscopy With ureteral stents for kidney stones. History of foot surgery Repair of left foot fracture with pinning. History of hysterectomy (1976) With cystocele and rectocele repairs. History of partial nephrectomy (2004) Left partial nephrectomy for kidney cancer. History of tonsillectomy Family History Family History Father Renal cell carcinoma Acute myocardial infarction Cerebrovascular accident Colon polyp Heart disease Hypertension Mother Lung cancer Acute myocardial infarction Cerebrovascular accident Depression Heart disease Hypertension Son Asthma Social History Social History Social History: Surrogate medical decision maker: Dong Maher, son. Code status: DNR Smoking packs per day: 1 Smoking cigarettes per day: 20.0 Years smoked: 20 Smoking pack-years: 20.00 Smoking status: Never smoker Tobacco type: cigarettes Second hand tobacco smoke exposure: Yes Alcohol intake: never Substance use: never Do You Feel Safe in your Home?: Yes Lack of Transportation: YES Lack of Food: Never True Current Housing: I Have Housing Concerned About Future Housing: No Difficulty Paying Gas/Electric Bills: No Difficulty Paying for Meds: No Currently Unemployed: No Education: Decline to Answer Difficulty w/ Childcare or Family Care: No Living arrangements: alone Additional living arrangements comments: , lives in [place]. 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 Spiritual care concerns: No Agree to blood products: Yes Exam Narrative: APPEARANCE: Well appearing, no pain, no distress, well-nourished. HEAD: normocephalic, atraumatic. EYES: PERRLA/EOMI, conjunctivae clear. NOSE: Normal no drainage EARS:TMS clear with good light reflex. THROAT: Pharynx clear, no exudate. NECK: Supple. No adenopathy, no masses. RESPIRATORY: Airway patent, respirations nonlabored. Clear to auscultation bilaterally, no rales, rhonchi, wheezing. CARDIOVASCULAR: Regular rate and rhythm without murmurs rubs or gallops. ABDOMINAL: Soft, nontender, nondistended, normal bowel sounds MUSCULOSKELETAL: Moves all extremities. Strength/ROM intact, No edema, No calf tenderness. NEURO: Alert. Cranial nerves II through XII intact. Grossly intact SKIN: Warm, dry. Normal Color Course Vital Signs Vital signs: Vital Signs Pulse Rate 96 01/14/24 10:17 Respiratory Rate 16 01/14/24 10:17 Blood Pressure 109/68 10/31/24 10:17 Pulse Oximetry 95 01/14/24 10:17 Oxygen Delivery Room Air 01/14/24 10:17 Pulse Rate 90 01/14/24 12:04 Respiratory Rate 16 01/14/24 12:04 Blood Pressure 115/47 L 01/14/24 12:04 Pulse Oximetry 97 01/14/24 12:04 Oxygen Delivery Room Air 01/14/24 10:17 Medical Decision Making MDM Narrative Medical decision making narrative: 70-year-old female presents emergency department for evaluation for hypotension. Patient's blood pressures remained stable emergency department. Patient was treated with a 500 mL bolus. Patient is afebrile with no leukocytosis and hemoglobin of 10. Patient electrolytes are similar to her baseline. Patient was comfortable the plan for discharge and close follow-up. Differential Diagnosis Differential Diagnosis: Electrolyte abnormality, hypotension Vital Signs Vital Signs: Vital Signs Pulse Rate 96 01/14/24 10:17 Respiratory Rate 16 01/14/24 10:17 Blood Pressure 109/68 01/14/24 10:17 Pulse Oximetry 95 01/14/24 10:17 Oxygen Delivery Room Air 01/14/24 10:17 Pulse Rate 90 01/14/24 12:04 Respiratory Rate 16 01/14/24 12:04 Blood Pressure 115/47 L 01/14/24 12:04 Pulse Oximetry 97 01/14/24 12:04 Oxygen Delivery Room Air 01/14/24 10:17 Lab Data 01/14/24 12:01 01/14/24 12:01 Labs: Lab Results 01/14/24 Range/Units 12:01 WBC 8.8 (4.5-10.0) K/mm3 RBC 3.24 L (4.2-5.4) M/mm3 Hgb 10.0 L (12.0-15.0) g/dL Hct 30.5 L (37.0-47.0) % MCV 94.1 (80-100) fl MCH 30.9 (26-34) pg MCHC 32.8 (32-36) g/dl RDW 17.0 H (11.5-14.5) % Plt Count 203 (150-375) k/mm3 MPV 9.1 (7.4-10.4) fl Immature Gran % (Auto) 0.8 H (0-0.5) % Neut % (Auto) 72.2 (45.5-73.1) % Lymph % (Auto) 14.6 L (18.3-44.2) % [place] % (Auto) 8.5 (2.6-8.5) % Eos % (Auto) 3.6 (0-4.4) % Baso % (Auto) 0.3 (0.2-1.2) % Lymph # (Auto) 1.29 (0.9-3.2) K/mm3 [place] # (Auto) 0.8 H (0.1-0.6) K/mm3 Eos # (Auto) 0.3 (0-0.3) K/mm3 Baso # (Auto) 0.0 (0.0-0.1) K/mm3 Abs Immat Gran (auto) 0.07 H (0.00-0.031) K/mm3 Absolute Neuts (auto) 6.4 (1.3-6.7) K/mm3 Absolute Nucleated RBC 0.000 (0.0-0.012) K/mm3 Nucleated RBC % 0.0 (0.0-0.2) % Sodium 138 (137-145) mmol/L Potassium 3.4 (3.4-5.0) mmol/L Chloride 97 L (98-107) mmol/L Carbon Dioxide 28 (22-30) mmol/L Anion Gap 13 H (4-12) mmol/L BUN 32 H D (7-17) mg/dL Creatinine 5.90 H (0.7-1.0) mg/dL Estim Creat Clear Calc 7 ml/min Estimated GFR 7 L (59 - ) Glucose 251 H (65-110) mg/dL Calcium 8.7 (8.4-10.2) mg/dL Total Bilirubin 0.5 (0.2-1.3) mg/dL AST 19 (14-36) U/L ALT 15 (6-35) U/L Alkaline Phosphatase 158 H (38-126) U/L Total Protein 7.0 (6.3-8.2) g/dL Albumin 3.7 (3.5-5.1) g/dL Discharge Plan Discharge Clinical Impression: Hypotension Patient Disposition: Home, Self-Care Condition: Stable Instructions: Antibiotic Form Additional Instructions: Have close follow-up with your primary care physician. If you have any worsening symptoms please call or return to the emergency department. Prescriptions: No Action dicyclomine 20 mg tablet 20 mg PO TID Qty: 90 5RF metoprolol tartrate 25 mg tablet 25 mg PO BID Qty: 60 5RF Cholestyramine Light 4 gram powder 4 g PO BID Qty: 239.4 5RF Rx Instructions: administer w/meal; avoid other meds within 1hr before or 4-6hr after dose escitalopram oxalate 10 mg tablet 10 mg PO DAILY Qty: 30 5RF cyclobenzaprine 5 mg tablet 5 mg PO TID PRN (Reason: muscle spasm) Qty: 10 0RF atorvastatin 40 mg tablet 40 mg PO DAILY Qty: 90 2RF bupropion HCl 150 mg tablet extended release 24 hr 150 mg PO QAM Qty: 90 1RF buspirone 10 mg tablet 10 mg PO BID Qty: 180 1RF diclofenac sodium [Voltaren Arthritis Pain] 1 % gel 2 g topical BID PRN (Reason: knee pain) Qty: 200 5RF Rx Instructions: apply to single elbow, wrist or hand; for hand includes palm/fingers/back of hand ergocalciferol (vitamin D2) 1,250 mcg (50,000 unit) capsule 50,000 mcg PO WEEKLY Qty: 4 5RF levetiracetam 500 mg tablet 500 mg PO Q12H Qty: 180 1RF mirtazapine 30 mg tablet 30 mg PO QHS Qty: 90 1RF pantoprazole 40 mg tablet,delayed release (DR/EC) 40 mg PO QAM Qty: 90 1RF ropinirole 0.5 mg tablet 0.5 mg PO BID Qty: 180 1RF megestrol 400 mg/10 mL (10 mL) suspension 200 mg PO BID Qty: 300 3RF hydrocodone-acetaminophen 5-325 mg tablet 1 tablet PO QID PRN (Reason: pain) Qty: 120 0RF Follow-up/Referrals: Justen Singer MD [Primary Care Provider] -
[2024-01-14 12:04] VITALS: BP 115/47; PULSE 90; RESP 16; O2SAT 97
[2024-01-14] MEDS: SODIUM CHLORIDE 0.9% IV 500 ML 999 ML IV CONT (12:04)
[2024-01-14 12:09] LABS: Basophils Percent Auto 0.3 % (0.2-1.2); Eosinophils Absolute Auto 0.3 K/mm3 (0-0.3); Eosinophils Percent Auto 3.6 % (0-4.4); Hematocrit 30.5 % (37.0-47.0); Immature Granulocyte Absolute 0.07 K/mm3 (0.00-0.031); Immature Granulocyte Percent A 0.8 % (0-0.5); Lymphocytes Absolute Auto 1.29 K/mm3 (0.9-3.2); Lymphocytes Percent Auto 14.6 % (18.3-44.2); Mean Corpuscular HGB Conc 32.8 g/dl (32-36); Mean Corpuscular Hemoglobin 30.9 pg (26-34); Mean Corpuscular Volume 94.1 fl (80-100); Mean Platelet Volume 9.1 fl (7.4-10.4); Monocytes Absolute Auto 0.8 K/mm3 (0.1-0.6); Monocytes Percent Auto 8.5 % (2.6-8.5); Neutrophils Absolute Auto 6.4 K/mm3 (1.3-6.7); Neutrophils Percent Auto 72.2 % (45.5-73.1); Platelet Count Result 203 k/mm3 (150-375); Red Blood Count 3.24 M/mm3 (4.2-5.4); White Blood Count 8.8 K/mm3 (4.5-10.0)
[2024-01-14 12:20] LABS: Alanine Aminotransferase 15 U/L (6-35); Albumin Level 3.7 g/dL (3.5-5.1); Alkaline Phosphatase 158 U/L (38-126); Anion Gap 13 mmol/L (4-12); Aspartate Amino Transferase 19 U/L (14-36); Bilirubin,Total 0.5 mg/dL (0.2-1.3); Blood Urea Nitrogen 32 mg/dL (7-17); Calcium 8.7 mg/dL (8.4-10.2); Carbon Dioxide 28 mmol/L (22-30); Chloride 97 mmol/L (98-107); Estimated CRCL calculation 7 ml/min; Estimated Glomerular Filt Rate 7; Glucose 251 mg/dL (65-110); Potassium 3.4 mmol/L (3.4-5.0); Sodium 138 mmol/L (137-145)
--- NOTE | 2024-01-14 12:27 | PC.NURSE ---
Per pt request, son and POA called and updated of pt condition. All questions answered.
--- NOTE | 2024-01-14 13:15 | PC.NURSE ---
Report called to DINORAH Shepard at [facility]. All questions answered. Son, Dong, to pick pt up at approximately 1400 and transport pt back to [facility].
== END 2024-01-14 14:40 | disposition home or self-care (01) ==
PROVIDERS: Emergency Provider Emergency Medicine; PCP Family Medicine Adolescent Medicine
DX: I95.9 Hypotension, unspecified (principal); I25.10 Atherosclerotic heart disease of native coronary artery without angina pectoris; E03.9 Hypothyroidism, unspecified; K50.90 Crohn's disease, unspecified, without complications; K21.9 Gastro-esophageal reflux disease without esophagitis; G47.33 Obstructive sleep apnea (adult) (pediatric); Z85.528 Personal history of other malignant neoplasm of kidney; E11.22 Type 2 diabetes mellitus with diabetic chronic kidney disease; N18.6 End stage renal disease; Z99.2 Dependence on renal dialysis
CPT/HCPCS: 36415; 80053; 85025; 96360; 99283; J7040

== ENCOUNTER 2024-02-17 13:57 | Inpatient (IN) | payer MEDICARE, SELFPAY ==
--- NOTE | ~2024-02-17 | CT_ITS ---
CTA chest PE protocol Ordering provider: Johnie Hunter MD History: 78 years Female with . dyspnea . Comparison: None. Technique: CT angiogram chest was performed following timed intravenous injection of contrast. Thin s lice axial images and reformatted coronal images were obtained. Three dimensional reformatted images of the chest were also obtained using a [employer] workstation. . Automated exposure control and iterati ve reconstruction technique were employed. The dose-length product was 413.35 mGy-cm. 100 mL Omnipaqu e 350 was given IV. Findings: PULMONARY ARTERIES: No pulmonary embolus. VISUALIZED THORACIC INLET: Normal. MEDIASTINUM: Aorta/coronary arteries: Mild atheromatous disease. Heart/other: The heart is slightly enlarged. Lymph nodes: No mediastinal or hilar adenopathy. Prevascular lymph nodes with the largest measuring 1 .1 cm is seen. LUNGS: Soft tissues density is seen in the left upper lobe which may be pneumonia but a mass is not excluded . Nodule is seen in the left lung upper lobe anteriorly measuring 1 cm. Focal area also seen in the l eft lower lobe laterally measuring 1.8 cm. Nodule is seen in the right lower lobe measuring 1.6 cm. M ass is seen in the right upper lobe measuring 2.7 cm. No infiltrates or effusions. No pneumothorax. VISUALIZED UPPER ABDOMEN: Severe narrowing at the origin of the superior mesenteric artery. Sliding h iatus hernia. Prominent pancreatic duct. Dilated CBD. Hepatomegaly. Atrophic kidneys. Slightly promi nent left adrenal gland. Otherwise, the visualized upper abdomen is normal. MUSCULOSKELETAL: Soft tissues: The superficial soft tissues are normal. Bones: Age appropriate degenerative changes of the spine. . Fracture is seen in the right 4 and fifth ribs IMPRESSION: 1. Multiple nodules with the largest in the right upper lobe. Further evaluation with PET scan advis ed. 2. Left upper lobe density which may indicate pneumonia versus a mass. Further evaluation advised. 3. No pulmonary embolism. 4. 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 5. Sliding hiatus hernia 6. Atrophic kidneys. 7. Hepatomegaly 8. Prominent pancreatic duct and CBD. Reviewed, dictated and finalized at location A. 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 Multiple nodules with the largest in the right upper lobe. Further evaluati on with PET scan advised. 2. Left upper lobe density which may indicate pneumonia versus a mass. Further evaluation advised. 3. No pulmonary embolism. 4. Severe near occlusion narrowing of the origin of the superior mesenteric ar fran. 5. Sliding hiatus hernia 6. Atrophic kidneys. 7. Hepatomegaly 8. Prominent pancreatic duct and CBD.
--- NOTE | ~2024-02-17 | XR_ITS ---
Clinical Indication: Chest pain PA and lateral views of the chest: Comparison: 08/18/2023 Findings: Stable linear scarring right lung base. There is a new 1.8 cm nodular opacity at the periph eral right midlung. There is a hazy airspace opacity left perihilar region measuring approximately 3 cm in diameter.. Cardiomediastinal silhouette is within normal limits. Bones and soft tissues are un remarkable. Impression: New bilateral airspace opacities versus nodules, as detailed above. This could reflect pneumonia vers us neoplastic/metastatic disease. Chest CT recommended to further evaluate. Reviewed, dictated and finalized at location . [place] [employer] Impression: New bilateral airspace opacities versus nodules, as detailed above. This could reflect pneumonia versus neoplastic/metastatic disease. Chest CT recommended to further evaluate.
--- NOTE | 2024-02-17 13:59 | ECG_ITS ---
Test Date: 2024-02-17 14:05:17 Measurements Intervals [place] Rate: 92 P: 72 [place]: 204 QRS: -66 QRSD: 90 T: 52 QT: 373 QTc: 463 Interpretive Statements SINUS RHYTHM WITH OCCASIONAL SUPRAVENTRICULAR PREMATURE COMPLEXES PATTERN CONSISTENT WITH PULMONARY DISEASE LEFT ANTERIOR FASCICULAR BLOCK [QRS AXIS <= -45, QR IN I, RS IN II] ABNORMAL ECG Compared to ECG 08/18/2023 12:39:44 Ectopic atrial rhythm no longer present Electronically Signed On 02-17-2024 15:05:11 [employer] by Michael Enciso M.D.
[2024-02-17 14:00] VITALS: BP 122/49; PULSE 93; RESP 16; TEMP 36.4; O2SAT 99
[2024-02-17 14:17] LABS: Basophils Percent Auto 0.5 % (0.2-1.2); Eosinophils Absolute Auto 0.4 K/mm3 (0-0.3); Eosinophils Percent Auto 4.6 % (0-4.4); Hematocrit 34.3 % (37.0-47.0); Immature Granulocyte Percent A 1.2 % (0-0.5); Lymphocytes Absolute Auto 1.36 K/mm3 (0.9-3.2); Lymphocytes Percent Auto 16.8 % (18.3-44.2); Mean Corpuscular HGB Conc 32.1 g/dl (32-36); Mean Corpuscular Hemoglobin 30.8 pg (26-34); Mean Corpuscular Volume 96.1 fl (80-100); Mean Platelet Volume 8.8 fl (7.4-10.4); Monocytes Absolute Auto 0.5 K/mm3 (0.1-0.6); Monocytes Percent Auto 6.4 % (2.6-8.5); Neutrophils Absolute Auto 5.7 K/mm3 (1.3-6.7); Neutrophils Percent Auto 70.5 % (45.5-73.1); Platelet Count Result 220 k/mm3 (150-375); Red Blood Count 3.57 M/mm3 (4.2-5.4); Red Cell Distribution Width 15.2 % (11.5-14.5); White Blood Count 8.1 K/mm3 (4.5-10.0)
[2024-02-17 14:31] LABS: Prothrombin Time 13.8 Seconds (11.1-14.7)
[2024-02-17 14:32] LABS: Partial Thromboplastin Time 31.4 Seconds (22.3-36.8)
[2024-02-17 14:35] LABS: Alanine Aminotransferase 16 U/L (6-35); Albumin Level 4.2 g/dL (3.5-5.1); Alkaline Phosphatase 162 U/L (38-126); Anion Gap 13 mmol/L (4-12); Aspartate Amino Transferase 18 U/L (14-36); Bilirubin,Total 0.6 mg/dL (0.2-1.3); Blood Urea Nitrogen 22 mg/dL (7-17); Calcium 8.5 mg/dL (8.4-10.2); Carbon Dioxide 26 mmol/L (22-30); Chloride 98 mmol/L (98-107); Estimated CRCL calculation 9 ml/min; Estimated Glomerular Filt Rate 9; Glucose 299 mg/dL (65-110); Lipase 194 U/L (23-300); Potassium 3.3 mmol/L (3.4-5.0); Sodium 137 mmol/L (137-145)
--- NOTE | 2024-02-17 15:14 | ED_ITS ---
HPI - Chest Pain General Chief Complaint: Chest Pain <Divine Leone PA-C - Last Filed: 02/17/24 15:23> Stated Complaint: chest pain <Divine Leone PA-C - Last Filed: 02/17/24 15:23> Time Seen by Provider: 02/17/24 15:16 <Divine Leone PA-C - Last Filed: 02/17/24 15:23> Focused HPI: Patient is a 78 y/o female, with PMH of CAD s/p stent placement 10+ years ago, DM, Crohn's disease, ESRD on HD MWF, who presents to the ED with c/o CP. Having intermittent midsternal chest pain, radiating through to her back over the last 2 days. States pain is intermittent. States pain is worse with stress and exertion. She has had a mild cough, mild shortness of breath recently. Denies pain or swelling in legs. Denies fevers. Patient received her full dialysis treatment today. States during her last two treatments, her HR has been elevated throughout the treatments. Patient notes she was taken off her metoprolol 2 weeks ago d/t hypotension. GENERAL: elderly, obese with BMI of 30.1, and in no acute distress. HEAD: Normocephalic, atraumatic. CHEST: Clear to auscultation. ?No respiratory distress. no focal lung sounds. HEART: Regular rate and rhythm.? NEURO: ?Alert and oriented x3. Patient screened in triage and initial orders placed.? ?Additional care and disposition to be based upon?diagnostic testing and treatment. <Divine Leone PA-C - Last Filed: 02/17/24 15:23> Source: patient <Divine Leone PA-C - Last Filed: 02/17/24 15:23> Mode of arrival: ambulatory <Divine Leone PA-C - Last Filed: 02/17/24 15:23> Limitations: no limitations <SEDRICK Nicole Last Filed: 02/17/24 15:23> History of Present Illness HPI narrative: I agree with the HPI as written in the medical screening exam. <Johnie Hunter MD - Last Filed: 02/18/24 00:25> Related Data Allergies/Adverse Reactions: Allergies Allergy/AdvReac Type Severity Reaction Status Date / Time cortisone Allergy Intermediate Dyspnea / Verified 02/10/24 13:51 SOB Penicillins Allergy Intermediate Dyspnea / Verified 02/10/24 13:51 SOB ceftriaxone [From Rocephin] Allergy Difficulty Verified 02/10/24 13:51 Breathing <Divine Leone PA-C - Last Filed: 02/17/24 15:23> Review of Systems Review of Systems: All systems reviewed & are unremarkable except as noted in HPI and below <Johnie Hunter MD - Last Filed: 02/18/24 00:25> PENDING SALE TO [facility] Past Medical History Medical History: Medical History Acute respiratory failure Anemia of chronic disease Callus of foot Coronary artery disease History of stent x3. COVID-19 virus infection Crohn's disease Diet-controlled diabetes mellitus A1c was 7.0 in 10/2018 and 4.8 in 01/2020. End-stage renal disease on hemodialysis Erythropoietin deficiency anemia Gastroesophageal reflux disease History of kidney stones Hypothyroidism Normal colonoscopy (08/2019) Obstructive sleep apnea No longer using CPAP after 40 lb weight loss. Osteomyelitis of toe of left foot Pericardial effusion (01/2020) Small pericardial effusion on echocardiogram, felt to be related to uremia. Peripheral autonomic neuropathy due to diabetes mellitus Peripheral vascular disease Peritonitis (01/2020) Pneumonia Renal cell carcinoma (2004) Renal osteodystrophy Restless leg syndrome Shingles (1991) Wound of right foot <Divine Leone PA-C - Last Filed: 02/17/24 15:23> Surgical History Surgical History: Surgical History Amputation toe Left 2nd toe. History of appendectomy History of bilateral carpal tunnel release History of cardiac catheterization With stent x3. History of cholecystectomy History of colonoscopy History of complete ray amputation of second toe of left foot History of complete ray amputation of second toe of right foot History of cystoscopy With ureteral stents for kidney stones. History of foot surgery Repair of left foot fracture with pinning. History of hysterectomy (1976) With cystocele and rectocele repairs. History of partial nephrectomy (2004) Left partial nephrectomy for kidney cancer. History of tonsillectomy <Divine Leone PA-C - Last Filed: 02/17/24 15:23> Family History Family History: Family History Father Renal cell carcinoma Acute myocardial infarction Cerebrovascular accident Colon polyp Heart disease Hypertension Mother Lung cancer Acute myocardial infarction Cerebrovascular accident Depression Heart disease Hypertension Son Asthma <Divine Leone PA-C - Last Filed: 02/17/24 15:23> Social History Social History: Social History Social History: Surrogate medical decision maker: Dong Maher, son. Code status: DNR Smoking packs per day: 1 Smoking cigarettes per day: 20.0 Years smoked: 20 Smoking pack-years: 20.00 Smoking status: Never smoker Tobacco type: cigarettes Second hand tobacco smoke exposure: No Alcohol intake: never Substance use: never Do You Feel Safe in your Home?: Yes Lack of Transportation: No Lack of Food: Never True Current Housing: I Have Housing Concerned About Future Housing: No Difficulty Paying Gas/Electric Bills: No Difficulty Paying for Meds: No Currently Unemployed: No Education: High School Diploma/GED Difficulty w/ Childcare or Family Care: No Living arrangements: alone Additional living arrangements comments: , lives in [place]. 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 Spiritual care concerns: No Agree to blood products: Yes <Divine Leone PA-C - Last Filed: 02/17/24 15:23> Exam Narrative: GENERAL: Well-developed, well-nourished, and in no acute distress. HEAD: Normocephalic, atraumatic. EYES: PERRLA and EOMI. NECK: Supple. No JVD CHEST: Faint rales noted in the left posterior lung field with good aeration. No respiratory distress. No wheezes or rhonchi HEART: Regular rate and rhythm. No murmur heard. Normal peripheral pulses. ABDOMEN: Soft, nontender, nondistended, normal active bowel sounds. EXTREMITIES: Normal range of motion. No edema. SKIN: Warm, dry, no rash. NEURO: Alert and oriented x3. No focal deficit. Moving all 4 limbs spontaneously PSYCH: Normal mood and affect. <Johnie Hunter MD - Last Filed: 02/18/24 00:25> Course Course Emergency Course: 20:48 - Troponins negative x2. CBC demonstrates white count of 8.1 hemoglobin of 11. Chemistries demonstrate creatinine of 4.6 with BUN of 22 and potassium of 3.3. The patient tested negative for influenza, COVID and RSV. Chest x-ray showed changes concerning for pulmonary nodules versus pneumonia. CTA of the chest demonstrates his consistent with pneumonia in the left upper lobe with nodules in the right lower lung concerning for malignancy with PET scan recommended. Interpretation of the image was delayed. EKG is not concerning for ischemia. Will start on cefepime and Doxycycline. I discussed the patient with hospitalist, FELISA Bruno who accepts admission and requests nephrology referral. 21:16 - I discussed the patient with educational program assistant, Dr. Howard who agrees to consult <Johnie Hunter MD - Last Filed: 02/18/24 00:25> Vital Signs Vital signs: Vital Signs Temperature 97.6 F 02/17/24 14:00 Pulse Rate 93 02/17/24 14:00 Respiratory Rate 16 02/17/24 14:00 Blood Pressure 122/49 L 02/17/24 14:00 Pulse Oximetry 99 02/17/24 14:00 Temperature 97.4 F L 02/17/24 22:00 Pulse Rate 88 02/17/24 22:00 Respiratory Rate 20 02/17/24 22:00 Blood Pressure 128/48 L 02/17/24 22:00 Pulse Oximetry 99 02/17/24 22:00 Oxygen Delivery Room Air 02/17/24 18:10 <Divine Leone PA-C - Last Filed: 02/17/24 15:23> Vital Signs Temperature 97.6 F 02/17/24 14:00 Pulse Rate 93 02/17/24 14:00 Respiratory Rate 16 02/17/24 14:00 Blood Pressure 122/49 L 02/17/24 14:00 Pulse Oximetry 99 02/17/24 14:00 Temperature 97.4 F L 02/17/24 22:00 Pulse Rate 88 02/17/24 22:00 Respiratory Rate 20 02/17/24 22:00 Blood Pressure 128/48 L 02/17/24 22:00 Pulse Oximetry 99 02/17/24 22:00 Oxygen Delivery Room Air 02/17/24 18:10 <Johnie Hunter MD - Last Filed: 02/18/24 00:25> MDM - Chest Pain MDM Narrative Medical decision making narrative: MSE by SHWETHA in triage. <Divine Leone PA-C - Last Filed: 02/17/24 15:23> MSE by SHWETHA in triage. plan: Imaging, labs, EKG, troponin, reassess <Johnie Hunter MD - Last Filed: 02/18/24 00:25> Differential Diagnosis Differential diagnosis: Likely costochondritis and other ( ACS, pneumonia, PE, pleurisy, metabolic abnormality, other) <Johnie Hunter MD - Last Filed: 02/18/24 00:25> Lab Data Result diagrams: 02/17/24 14:09 02/17/24 14:09 <Divine Leone PA-C - Last Filed: 02/17/24 15:23> Labs: Lab Results 02/17/24 02/17/24 02/17/24 Range/Units 14:09 15:34 17:10 WBC 8.1 (4.5-10.0) K/mm3 RBC 3.57 L (4.2-5.4) M/mm3 Hgb 11.0 L (12.0-15.0) g/dL Hct 34.3 L (37.0-47.0) % MCV 96.1 (80-100) fl MCH 30.8 (26-34) pg MCHC 32.1 (32-36) g/dl RDW 15.2 H (11.5-14.5) % Plt Count 220 (150-375) k/mm3 MPV 8.8 (7.4-10.4) fl Immature Gran % (Auto) 1.2 H (0-0.5) % Neut % (Auto) 70.5 (45.5-73.1) % Lymph % (Auto) 16.8 L (18.3-44.2) % [place] % (Auto) 6.4 (2.6-8.5) % Eos % (Auto) 4.6 H (0-4.4) % Baso % (Auto) 0.5 (0.2-1.2) % Lymph # (Auto) 1.36 (0.9-3.2) K/mm3 [place] # (Auto) 0.5 (0.1-0.6) K/mm3 Eos # (Auto) 0.4 H (0-0.3) K/mm3 Baso # (Auto) 0.0 (0.0-0.1) K/mm3 Abs Immat Gran (auto) 0.10 H (0.00-0.031) K/mm3 Absolute Neuts (auto) 5.7 (1.3-6.7) K/mm3 Absolute Nucleated RBC 0.000 (0.0-0.012) K/mm3 Nucleated RBC % 0.0 (0.0-0.2) % PT 13.8 (11.1-14.7) Seconds INR 1.0 APTT 31.4 (22.3-36.8) Seconds D-Dimer 0.71 H (<0.48) ug/mL Sodium 137 (137-145) mmol/L Potassium 3.3 L (3.4-5.0) mmol/L Chloride 98 (98-107) mmol/L Carbon Dioxide 26 (22-30) mmol/L Anion Gap 13 H (4-12) mmol/L BUN 22 H D (7-17) mg/dL Creatinine 4.60 H (0.7-1.0) mg/dL Estim Creat Clear Calc 9 ml/min Estimated GFR 9 L (59 - ) Glucose 299 H (65-110) mg/dL Hemoglobin A1c Pending Calcium 8.5 (8.4-10.2) mg/dL Total Bilirubin 0.6 (0.2-1.3) mg/dL AST 18 (14-36) U/L ALT 16 (6-35) U/L Alkaline Phosphatase 162 H (38-126) U/L Troponin I 0.030 0.027 (0.000-0.034) ng/mL Total Protein 7.0 (6.3-8.2) g/dL Albumin 4.2 (3.5-5.1) g/dL Lipase 194 (23-300) U/L Influenza A (RT-PCR) Negative (Negative) Influenza B (RT-PCR) Negative (Negative) RSV (RT-PCR) Negative (Negative) SARS-CoV-2 RNA (RT-PCR) Negative (Negative) 02/17/24 Range/Units 20:27 WBC (4.5-10.0) K/mm3 RBC (4.2-5.4) M/mm3 Hgb (12.0-15.0) g/dL Hct (37.0-47.0) % MCV (80-100) fl MCH (26-34) pg MCHC (32-36) g/dl RDW (11.5-14.5) % Plt Count (150-375) k/mm3 MPV (7.4-10.4) fl Immature Gran % (Auto) (0-0.5) % Neut % (Auto) (45.5-73.1) % Lymph % (Auto) (18.3-44.2) % [place] % (Auto) (2.6-8.5) % Eos % (Auto) (0-4.4) % Baso % (Auto) (0.2-1.2) % Lymph # (Auto) (0.9-3.2) K/mm3 [place] # (Auto) (0.1-0.6) K/mm3 Eos # (Auto) (0-0.3) K/mm3 Baso # (Auto) (0.0-0.1) K/mm3 Abs Immat Gran (auto) (0.00-0.031) K/mm3 Absolute Neuts (auto) (1.3-6.7) K/mm3 Absolute Nucleated RBC (0.0-0.012) K/mm3 Nucleated RBC % (0.0-0.2) % PT (11.1-14.7) Seconds INR APTT (22.3-36.8) Seconds D-Dimer (<0.48) ug/mL Sodium (137-145) mmol/L Potassium (3.4-5.0) mmol/L Chloride (98-107) mmol/L Carbon Dioxide (22-30) mmol/L Anion Gap (4-12) mmol/L BUN (7-17) mg/dL Creatinine (0.7-1.0) mg/dL Estim Creat Clear Calc ml/min Estimated GFR (59 - ) Glucose (65-110) mg/dL Hemoglobin A1c Calcium (8.4-10.2) mg/dL Total Bilirubin (0.2-1.3) mg/dL AST (14-36) U/L ALT (6-35) U/L Alkaline Phosphatase (38-126) U/L Troponin I 0.025 (0.000-0.034) ng/mL Total Protein (6.3-8.2) g/dL Albumin (3.5-5.1) g/dL Lipase (23-300) U/L Influenza A (RT-PCR) (Negative) Influenza B (RT-PCR) (Negative) RSV (RT-PCR) (Negative) SARS-CoV-2 RNA (RT-PCR) (Negative) <Divine Leone PA-C - Last Filed: 02/17/24 15:23> Lab Results 02/17/24 02/17/24 02/17/24 Range/Units 14:09 15:34 17:10 WBC 8.1 (4.5-10.0) K/mm3 RBC 3.57 L (4.2-5.4) M/mm3 Hgb 11.0 L (12.0-15.0) g/dL Hct 34.3 L (37.0-47.0) % MCV 96.1 (80-100) fl MCH 30.8 (26-34) pg MCHC 32.1 (32-36) g/dl RDW 15.2 H (11.5-14.5) % Plt Count 220 (150-375) k/mm3 MPV 8.8 (7.4-10.4) fl Immature Gran % (Auto) 1.2 H (0-0.5) % Neut % (Auto) 70.5 (45.5-73.1) % Lymph % (Auto) 16.8 L (18.3-44.2) % [place] % (Auto) 6.4 (2.6-8.5) % Eos % (Auto) 4.6 H (0-4.4) % Baso % (Auto) 0.5 (0.2-1.2) % Lymph # (Auto) 1.36 (0.9-3.2) K/mm3 [place] # (Auto) 0.5 (0.1-0.6) K/mm3 Eos # (Auto) 0.4 H (0-0.3) K/mm3 Baso # (Auto) 0.0 (0.0-0.1) K/mm3 Abs Immat Gran (auto) 0.10 H (0.00-0.031) K/mm3 Absolute Neuts (auto) 5.7 (1.3-6.7) K/mm3 Absolute Nucleated RBC 0.000 (0.0-0.012) K/mm3 Nucleated RBC % 0.0 (0.0-0.2) % PT 13.8 (11.1-14.7) Seconds INR 1.0 APTT 31.4 (22.3-36.8) Seconds D-Dimer 0.71 H (<0.48) ug/mL Sodium 137 (137-145) mmol/L Potassium 3.3 L (3.4-5.0) mmol/L Chloride 98 (98-107) mmol/L Carbon Dioxide 26 (22-30) mmol/L Anion Gap 13 H (4-12) mmol/L BUN 22 H D (7-17) mg/dL Creatinine 4.60 H (0.7-1.0) mg/dL Estim Creat Clear Calc 9 ml/min Estimated GFR 9 L (59 - ) Glucose 299 H (65-110) mg/dL Hemoglobin A1c Pending Calcium 8.5 (8.4-10.2) mg/dL Total Bilirubin 0.6 (0.2-1.3) mg/dL AST 18 (14-36) U/L ALT 16 (6-35) U/L Alkaline Phosphatase 162 H (38-126) U/L Troponin I 0.030 0.027 (0.000-0.034) ng/mL Total Protein 7.0 (6.3-8.2) g/dL Albumin 4.2 (3.5-5.1) g/dL Lipase 194 (23-300) U/L Influenza A (RT-PCR) Negative (Negative) Influenza B (RT-PCR) Negative (Negative) RSV (RT-PCR) Negative (Negative) SARS-CoV-2 RNA (RT-PCR) Negative (Negative) 02/17/24 Range/Units 20:27 WBC (4.5-10.0) K/mm3 RBC (4.2-5.4) M/mm3 Hgb (12.0-15.0) g/dL Hct (37.0-47.0) % MCV (80-100) fl MCH (26-34) pg MCHC (32-36) g/dl RDW (11.5-14.5) % Plt Count (150-375) k/mm3 MPV (7.4-10.4) fl Immature Gran % (Auto) (0-0.5) % Neut % (Auto) (45.5-73.1) % Lymph % (Auto) (18.3-44.2) % [place] % (Auto) (2.6-8.5) % Eos % (Auto) (0-4.4) % Baso % (Auto) (0.2-1.2) % Lymph # (Auto) (0.9-3.2) K/mm3 [place] # (Auto) (0.1-0.6) K/mm3 Eos # (Auto) (0-0.3) K/mm3 Baso # (Auto) (0.0-0.1) K/mm3 Abs Immat Gran (auto) (0.00-0.031) K/mm3 Absolute Neuts (auto) (1.3-6.7) K/mm3 Absolute Nucleated RBC (0.0-0.012) K/mm3 Nucleated RBC % (0.0-0.2) % PT (11.1-14.7) Seconds INR APTT (22.3-36.8) Seconds D-Dimer (<0.48) ug/mL Sodium (137-145) mmol/L Potassium (3.4-5.0) mmol/L Chloride (98-107) mmol/L Carbon Dioxide (22-30) mmol/L Anion Gap (4-12) mmol/L BUN (7-17) mg/dL Creatinine (0.7-1.0) mg/dL Estim Creat Clear Calc ml/min Estimated GFR (59 - ) Glucose (65-110) mg/dL Hemoglobin A1c Calcium (8.4-10.2) mg/dL Total Bilirubin (0.2-1.3) mg/dL AST (14-36) U/L ALT (6-35) U/L Alkaline Phosphatase (38-126) U/L Troponin I 0.025 (0.000-0.034) ng/mL Total Protein (6.3-8.2) g/dL Albumin (3.5-5.1) g/dL Lipase (23-300) U/L Influenza A (RT-PCR) (Negative) Influenza B (RT-PCR) (Negative) RSV (RT-PCR) (Negative) SARS-CoV-2 RNA (RT-PCR) (Negative) <Johnie Hunter MD - Last Filed: 02/18/24 00:25> ECG Data EKG #1: Attestation: I personally reviewed and interpreted this ECG as follows: <Johnie Hunter MD - Last Filed: 02/18/24 00:25> ECG completion date: 02/17/24 <Johnie Hunter MD - Last Filed: 02/18/24 00:25> ECG completion time: 14:05 <Johnie Hunter MD - Last Filed: 02/18/24 00:25> Prior ECG tracings: available for review <Johnie Hunter MD - Last Filed: 02/18/24 00:25> Interpretation: sinus rhythm With first-degree AV block, rate 92, left axis, no ST segment elevations or T-wave inversions concerning for ischemia, otherwise normal intervals with QTC 463. compared to EKG done in August 2023, ectopic atrial rhythm no longer present <Johnie Hunter MD - Last Filed: 02/18/24 00:25> EKG #2: Attestation: I personally reviewed and interpreted this ECG as follows: <Johnie Hunter MD - Last Filed: 02/18/24 00:25> ECG completion date: 02/17/24 <Johnie Hunter MD - Last Filed: 02/18/24 00:25> ECG completion time: 18:33 <Johnie Hunter MD - Last Filed: 02/18/24 00:25> Prior ECG tracings: available for review <Johnie Hunter MD - Last Filed: 02/18/24 00:25> Interpretation: sinus rhythm, rate 79, left axis, first-degree AV block, no ST segment elevations concerning for ischemia <Johnie Hunter MD - Last Filed: 02/18/24 00:25> Discharge Plan Discharge Clinical Impression: Pneumonia, End stage renal disease, Multiple lung nodules on CT <Divine Leone PA-C - Last Filed: 02/17/24 15:23> Patient Disposition: Still a Patient <Divine Lenoe PA-C - Last Filed: 02/17/24 15:23> Condition: Serious <Divine Leone PA-C - Last Filed: 02/17/24 15:23> Time of Disposition: 20:48 <Divine Leone PA-C - Last Filed: 02/17/24 15:23> 20:48 <Johnie Hunter MD - Last Filed: 02/18/24 00:25>
[2024-02-17 15:46] LABS: D Dimer 0.71 ug/mL (<0.48)
[2024-02-17 16:19] LABS: Influenza A QL RT-PCR Negative (Negative); Influenza B QL RT-PCR Negative (Negative); RSV RNA, RT-PCR Negative (Negative); SARS-CoV-2 RNA PCR Negative (Negative)
[2024-02-17 17:43] LABS: Troponin I 0.027 ng/mL (0.000-0.034)
[2024-02-17 18:10] VITALS: BP 111/44; PULSE 77; PULSE 80; RESP 20; O2SAT 100
--- NOTE | 2024-02-17 18:16 | ECG_ITS ---
Test Date: 2024-02-17 18:33:28 Measurements Intervals [place] Rate: 79 P: 3 MD: 241 QRS: -58 QRSD: 97 T: 67 QT: 429 QTc: 494 Interpretive Statements SINUS RHYTHM WITH FIRST DEGREE AV BLOCK PATTERN CONSISTENT WITH PULMONARY DISEASE LEFT ANTERIOR FASCICULAR BLOCK [QRS AXIS <= -45, QR IN I, RS IN II] Compared to ECG 02/17/2024 14:05:17 First degree AV block now present Electronically Signed On 02-18-2024 09:49:27 PRODUCTION MECHANIC by Regan Singh M.D.
--- NOTE | 2024-02-17 19:14 | PC.NURSE ---
Assumed care of patient after receiving report from DINORAH Urbina. No questions at this time.
[2024-02-17 19:16] VITALS: BP 157/74; PULSE 83; RESP 20; O2SAT 100
[2024-02-17 20:54] LABS: Troponin I 0.025 ng/mL (0.000-0.034)
--- NOTE | 2024-02-17 21:15 | PC.NURSE ---
This RN attempted to get blood cultures. Pt refused all suggestions stating Youre not going to get anything. ED Charge, Barbara, notified. Phlebotomy called.
[2024-02-17 21:43] VITALS: BP 148/82; PULSE 88; RESP 16; O2SAT 96
[2024-02-17 21:46] VITALS: BMI 31.6
[2024-02-17 22:00] VITALS: BP 128/48; PULSE 88; RESP 20; TEMP 36.3; O2SAT 99
--- NOTE | 2024-02-17 22:23 | ADMGEN ---
This patient, Layla Maher, was admitted to [facility] Surg Room 302-01. Patient/family oriented to hospital policies and general routines including ID bracelet, bed and alarms, visiting hours, pain management, procedures, bathroom and other care routines, personal items, smoking policy, room service/diet, and visiting hours. Information on how to activate the Rapid Response Team has been discussed. Patient/Family are encouraged to report perceived risks to care and to ask questions if they do not understand what they are told or what they should do.
[2024-02-17] MEDS: CEFEPIME 2 GM/NS 50 ML 2 GM/50 ML BAG IVPB (23:26)
[2024-02-17] MEDS: DOXYCYCLINE HYCLATE 100 MG TABLET PO (23:27)
--- NOTE | 2024-02-17 23:57 | PM.IMHP ---
H&P: HPI History of Present Illness Date/Time: 02/17/24 23:07 Chief Complaint: cough, shortness of breath Narrative: This is a 78-year-old female patient with a history of CAD s/p stent placement 10+ years ago, DM, Crohn's disease, ESRD on HD MWF, who presented to the ED with c/o central chest pain radiating into her back. Patient reported mild cough mild shortness of breath recently. She reports that the pain is intermittent and worsens with exertion. Pain has been present for 2 days. She went to dialysis today. Patient recently had her metoprolol stopped because of low blood pressure. She was able to complete full session of dialysis but noted her heart rate went up to [address] Joe recommended she come to the ER for evaluation. Workup shows normal troponins, normal white blood cell count and stable chronic anemia. Chemistry panel consistent with ESRD. Imaging showed left upper lobe pneumonia and concerning nodules in multiple lobes that might be malignancy. Patient was started on cefepime and doxycycline in the emergency department. She did receive a CTA of the chest to rule out PE so she will likely have to undergo hemodialysis again in the morning after contrast exposure. Nephrology was consulted by the emergency department. Review of patient's past medical history does include renal cell carcinoma. Review of Systems Review of Systems: All systems reviewed & are unremarkable except as noted in HPI and below PMFSH Past Medical History Medical History Acute respiratory failure Anemia of chronic disease Callus of foot Coronary artery disease History of stent x3. COVID-19 virus infection Crohn's disease Diet-controlled diabetes mellitus A1c was 7.0 in 10/2018 and 4.8 in 01/2020. End-stage renal disease on hemodialysis Erythropoietin deficiency anemia Gastroesophageal reflux disease History of kidney stones Hypothyroidism Normal colonoscopy (08/2019) Obstructive sleep apnea No longer using CPAP after 40 lb weight loss. Osteomyelitis of toe of left foot Pericardial effusion (01/2020) Small pericardial effusion on echocardiogram, felt to be related to uremia. Peripheral autonomic neuropathy due to diabetes mellitus Peripheral vascular disease Peritonitis (01/2020) Pneumonia Renal cell carcinoma (2004) Renal osteodystrophy Restless leg syndrome [place] (1991) Wound of right foot Surgical History Surgical History Amputation toe Left 2nd toe. History of appendectomy History of bilateral carpal tunnel release History of cardiac catheterization With stent x3. History of cholecystectomy History of colonoscopy History of complete ray amputation of second toe of left foot History of complete ray amputation of second toe of right foot History of cystoscopy With ureteral stents for kidney stones. History of foot surgery Repair of left foot fracture with pinning. History of hysterectomy (1976) With cystocele and rectocele repairs. History of partial nephrectomy (2004) Left partial nephrectomy for kidney cancer. History of tonsillectomy Family History Family History Father Renal cell carcinoma Acute myocardial infarction Cerebrovascular accident Colon polyp Heart disease Hypertension Mother Lung cancer Acute myocardial infarction Cerebrovascular accident Depression Heart disease Hypertension Son Asthma Social History Social History (Updated 02/18/24 @ 03:06 by Damion Maynard APRN) Social History: Surrogate medical decision maker: Dong Maher, son. Code status: Modified Code, No Intubation Smoking packs per day: 1 Smoking cigarettes per day: 20.0 Years smoked: 20 Smoking pack-years: 20.00 Smoking status: Former smoker Tobacco type: cigarettes Second hand tobacco smoke exposure: No Alcohol intake: never Substance use: never Do You Feel Safe in your Home?: Yes Lack of Transportation: No Lack of Food: Never True Current Housing: I Have Housing Concerned About Future Housing: No Difficulty Paying Gas/Electric Bills: No Difficulty Paying for Meds: No Currently Unemployed: No Education: High School Diploma/GED Difficulty w/ Childcare or Family Care: No Living arrangements: alone Additional living arrangements comments: , lives in [place]. 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 Spiritual care concerns: No Agree to blood products: Yes Meds Home Medications and Allergies Home Medications Medication Instructions Recorded Confirmed Type atorvastatin 40 mg tablet 40 mg PO DAILY #90 tabs 03/11/23 02/17/24 Rx bupropion HCl 150 mg 24 hr tablet, 150 mg PO QAM #90 tabs 03/11/23 02/17/24 Rx extended release buspirone 10 mg tablet 10 mg PO BID #180 tabs 03/11/23 02/17/24 Rx diclofenac sodium 1 % topical gel 2 g topical BID PRN knee pain #200 03/11/23 02/17/24 Rx (Voltaren Arthritis Pain) grams ergocalciferol (vitamin D2) 1,250 50,000 mcg PO WEEKLY #4 caps 03/11/23 02/17/24 Rx mcg (50,000 unit) capsule levetiracetam 500 mg tablet 500 mg PO Q12H #180 tabs 03/11/23 02/17/24 Rx mirtazapine 30 mg tablet 30 mg PO QHS #90 tabs 03/11/23 02/17/24 Rx pantoprazole 40 mg tablet,delayed 40 mg PO QAM #90 tabs 03/11/23 02/17/24 Rx release ropinirole 0.5 mg tablet 0.5 mg PO BID #180 tabs 03/11/23 02/17/24 Rx cyclobenzaprine 5 mg tablet 5 mg PO TID PRN muscle spasm #10 06/03/23 02/17/24 Rx tabs escitalopram oxalate 10 mg tablet 10 mg PO DAILY #30 tabs 06/17/23 02/17/24 Rx dicyclomine 20 mg tablet 20 mg PO TID #90 tabs 08/05/23 02/17/24 Rx megestrol 400 mg/10 mL (10 mL) 200 mg (5 mL) PO BID #300 mL 08/27/23 02/17/24 Rx oral suspension hydrocodone 5 mg-acetaminophen 325 1 tablet PO QID PRN pain #120 tabs 01/26/24 02/17/24 Rx mg tablet cholestyramine-aspartame 4 gram 4 g PO TID #239.4 grams 02/10/24 02/17/24 Rx oral powder (Cholestyramine Light) clobetasol 0.05 % topical cream 1 applic topical BID #30 grams 02/10/24 02/17/24 Rx loperamide 2 mg tablet 4 mg PO QID PRN loose stool #100 02/10/24 02/17/24 Rx tabs Allergies Allergy/AdvReac Type Severity Reaction Status Date / Time cortisone Allergy Intermediate Dyspnea / Verified 02/10/24 13:51 SOB Penicillins Allergy Intermediate Dyspnea / Verified 02/10/24 13:51 SOB ceftriaxone [From Rocephin] Allergy Difficulty Verified 02/10/24 13:51 Breathing Vital Signs Vital Signs - 24 hr 02/17/24 14:00 02/17/24 18:10 02/17/24 18:10 Temperature 36.4 C Pulse Rate 93 77 Respiratory Rate 16 Blood Pressure 122/49 L Pulse Oximetry 99 100 Oxygen Delivery Room Air 02/17/24 18:10 02/17/24 19:16 02/17/24 21:43 Temperature Pulse Rate 80 83 88 Respiratory Rate 20 20 16 Blood Pressure 111/44 L 157/74 H 148/82 H Pulse Oximetry 100 100 96 Oxygen Delivery 02/17/24 22:00 Temperature 36.3 C L Pulse Rate 88 Respiratory Rate 20 Blood Pressure 128/48 L Pulse Oximetry 99 Oxygen Delivery Exam Narrative: GENERAL: Chronically ill appearing but in no acute distress. HEAD: Normocephalic, atraumatic. EYES: PERRLA and EOMI. NECK: Supple. No JVD CHEST: Faint rales noted in the left posterior lung field with good aeration. No respiratory distress. No wheezes or rhonchi HEART: Regular rate and rhythm. No murmur heard. Normal peripheral pulses. ABDOMEN: Soft, nontender, nondistended, normal active bowel sounds. EXTREMITIES: Normal range of motion. No edema. Left upper arm dialysis site intact. SKIN: Warm, dry, no rash. NEURO: Alert and oriented x3. No focal deficit. Moving all 4 limbs spontaneously PSYCH: Normal mood and affect. H&P: Results Labs Labs: Short CBC 02/17/24 Range/Units 14:09 WBC 8.1 (4.5-10.0) K/mm3 Hgb 11.0 L (12.0-15.0) g/dL Hct 34.3 L (37.0-47.0) % Plt Count 220 (150-375) k/mm3 [facility] 02/17/24 14:09 Sodium 137 Potassium 3.3 L Chloride 98 Carbon Dioxide 26 BUN 22 H D Creatinine 4.60 H Glucose 299 H Calcium 8.5 Cardiac Enzymes 02/17/24 02/17/24 02/17/24 Range/Units 14:09 17:10 20:27 Troponin I 0.030 0.027 0.025 (0.000-0.034) ng/mL Liver Function 02/17/24 Range/Units 14:09 Total Bilirubin 0.6 (0.2-1.3) mg/dL AST 18 (14-36) U/L ALT 16 (6-35) U/L Alkaline Phosphatase 162 H (38-126) U/L Albumin 4.2 (3.5-5.1) g/dL Pulse Oximetry SpO2 results: 96-99% on room air Attestation: I personally reviewed and interpreted this pulse oximetry as follows: Interpretation: No need for supplemental oxygenation at this time ECG Attestation: I personally reviewed and interpreted this ECG as follows: ECG completion date: 02/17/24 ECG completion time: 18:33 Prior ECG tracings: available for review Interpretation: Sinus rhythm rate of 79 first-degree block TX interval 241 QRS duration 97 QTC prolonged at 494 QRS axis -58 left axis deviation no STEMI Imaging Chest x-ray: Radiologist's impression: Clinical Indication: Chest pain PA and lateral views of the chest: Comparison: 08/18/2023 Findings: Stable linear scarring right lung base. There is a new 1.8 cm nodular opacity at the peripheral right midlung. There is a hazy airspace opacity left perihilar region measuring approximately 3 cm in diameter.. Cardiomediastinal silhouette is within normal limits. Bones and soft tissues are unremarkable. Impression: New bilateral airspace opacities versus nodules, as detailed above. This could reflect pneumonia versus neoplastic/metastatic disease. Chest CT recommended to further evaluate. Reviewed, dictated and finalized at location . [place] [employer] CT scan - chest: Radiologist's impression: CTA chest PE protocol Ordering provider: Johnie Hunter MD History: 78 years Female with . dyspnea . Comparison: None. Technique: CT angiogram chest was performed following timed intravenous injection of contrast. Thin slice axial images and reformatted coronal images were obtained. Three dimensional reformatted images of the chest were also obtained using a [employer] workstation. . Automated exposure control and iterative reconstruction technique were employed. The dose-length product was 413.35 mGy-cm. 100 mL Omnipaque 350 was given IV. Findings: PULMONARY ARTERIES: No pulmonary embolus. VISUALIZED THORACIC INLET: Normal. MEDIASTINUM: Aorta/coronary arteries: Mild atheromatous disease. Heart/other: The heart is slightly enlarged. Lymph nodes: No mediastinal or hilar adenopathy. Prevascular lymph nodes with the largest measuring 1.1 cm is seen. LUNGS: Soft tissues density is seen in the left upper lobe which may be pneumonia but a mass is not excluded. Nodule is seen in the left lung upper lobe anteriorly measuring 1 cm. Focal area also seen in the left lower lobe laterally measuring 1.8 cm. Nodule is seen in the right lower lobe measuring 1.6 cm. Mass is seen in the right upper lobe measuring 2.7 cm. No infiltrates or effusions. No pneumothorax. VISUALIZED UPPER ABDOMEN: Severe narrowing at the origin of the superior mesenteric artery. Sliding hiatus hernia. Prominent pancreatic duct. Dilated CBD. Hepatomegaly. Atrophic kidneys. Slightly prominent left adrenal gland. Otherwise, the visualized upper abdomen is normal. MUSCULOSKELETAL: Soft tissues: The superficial soft tissues are normal. Bones: Age appropriate degenerative changes of the spine. . Fracture is seen in the right 4 and fifth ribs IMPRESSION: 1. Multiple nodules with the largest in the right upper lobe. Further evaluation with PET scan advised. 2. Left upper lobe density which may indicate pneumonia versus a mass. Further evaluation advised. 3. No pulmonary embolism. 4. 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 5. Sliding hiatus hernia 6. Atrophic kidneys. 7. Hepatomegaly 8. Prominent pancreatic duct and CBD. Reviewed, dictated and finalized at location A. [place] [employer] Assessment and Plan Assessment and plan (1) Pneumonia: Qualifiers: Laterality: left Lung location: upper lobe of lung Pneumonia type: due to unspecified organism Qualified Code(s): J18.9 - Pneumonia, unspecified organism Code(s): J18.9 - Pneumonia, unspecified organism Status: Acute Assessment and Plan: -Left upper lobe nodule vs focal pneumonia -Chest pain on exertion with negative troponins -Cefepime and doxycycline ordered -MRSA PCR ordered -Prolonged QTC would limit azithromycin or levofloxacin from being preferred agents (2) Multiple lung nodules on CT: Code(s): R91.8 - Other nonspecific abnormal finding of lung field Status: Acute Assessment and Plan: -Multiple nodules in multiple lobes -Former smoker and family history of lung cancer -Personal history documented of renal cell carcinoma -PET scan recommended by Radiology -Check with IR to see if biopsy can be obtained on this hospitalization, will hold heparin SQ until this is answered (3) Type 2 diabetes mellitus with diabetic chronic kidney disease: Code(s): E11.22 - Type 2 diabetes mellitus with diabetic chronic kidney disease Status: Acute Assessment and Plan: -Hemoglobin A1c 7.2 -Patient not on any medications for diabetes at this time -ACHS fingerstick with SSI (4) Crohn's disease: Code(s): K50.90 - Crohn's disease, unspecified, without complications Status: Chronic Assessment and Plan: Chronic, currently symptoms controlled. (5) End-stage renal disease on hemodialysis: Code(s): N18.6 - End stage renal disease; Z99.2 - Dependence on renal dialysis Status: Acute Assessment and Plan: -MWF Dialysis schedule -Recieved IV contrast for CTA after dialysis on Friday 02/16 -Nephrology consulted -Hold on replacement of potassium 3.3 at this time -Monitor AM labs Plan -Recommend reaching out to Interventional Radiology to see if any lung mass can be biopsied while patient is admitted. -Consider pulmonology consult if IR unable to biopsy. Quality VTE Prophylaxis VTE prophylaxis: pharmacologic ordered (heparin SQ) Hospitalist [facility] Advance Care Plan I have confirmed that the patient's Advanced Care Plan is present, code status is documented, or surrogate decision maker is listed in patient medical record.: Yes Medication Reconciliation I have utilized all available resources to obtain, update and review the patients current medications (includes all prescriptions, OTC, herbals, cannabis, and nutritional supplements).: Yes
[2024-02-18 01:02] LABS: Hemoglobin A1C 7.2 % (<5.7)
[2024-02-18] MEDS: levETIRAcetam 500 MG TABLET PO ×3 (01:15→20:14)
[2024-02-18] MEDS: HYDROcodone/acetaminophen (*CRX) 5-325 MG TABLET 1 TAB PO ×4 (01:16→20:13)
[2024-02-18] MEDS: rOPINIRole HCL 0.5 MG TABLET PO ×3 (01:16→20:14)
[2024-02-18] MEDS: MIRTAZAPINE 30 MG TABLET PO ×2 (01:16→20:14)
[2024-02-18 05:53] VITALS: BP 123/52; PULSE 79; RESP 20; TEMP 36.2; O2SAT 97
[2024-02-18 06:59] LABS: MRSA (PCR) NOT DETECTED (NOT DETECTE)
[2024-02-18 07:27] LABS: Basophils Percent Auto 0.3 % (0.2-1.2); Eosinophils Absolute Auto 0.4 K/mm3 (0-0.3); Eosinophils Percent Auto 4.5 % (0-4.4); Hematocrit 29.8 % (37.0-47.0); Hemoglobin 9.6 g/dL (12.0-15.0); Immature Granulocyte Absolute 0.11 K/mm3 (0.00-0.031); Immature Granulocyte Percent A 1.3 % (0-0.5); Lymphocytes Absolute Auto 1.64 K/mm3 (0.9-3.2); Lymphocytes Percent Auto 18.9 % (18.3-44.2); Mean Corpuscular HGB Conc 32.2 g/dl (32-36); Mean Corpuscular Hemoglobin 30.8 pg (26-34); Mean Corpuscular Volume 95.5 fl (80-100); Mean Platelet Volume 9.4 fl (7.4-10.4); Monocytes Absolute Auto 0.8 K/mm3 (0.1-0.6); Monocytes Percent Auto 9.3 % (2.6-8.5); Neutrophils Absolute Auto 5.7 K/mm3 (1.3-6.7); Neutrophils Percent Auto 65.7 % (45.5-73.1); Platelet Count Result 207 k/mm3 (150-375); Red Blood Count 3.12 M/mm3 (4.2-5.4); Red Cell Distribution Width 15.1 % (11.5-14.5); White Blood Count 8.7 K/mm3 (4.5-10.0)
[2024-02-18] MEDS: CHOLESTYRAMINE LIGHT 4 GM POWD.PACK PO ×2 (07:47→15:23)
[2024-02-18 07:50] LABS: Glucose Point of Care 102 mg/dl (65-105)
[2024-02-18 08:02] LABS: Alanine Aminotransferase 12 U/L (6-35); Albumin Level 3.4 g/dL (3.5-5.1); Alkaline Phosphatase 141 U/L (38-126); Aspartate Amino Transferase 16 U/L (14-36); Bilirubin,Total 0.5 mg/dL (0.2-1.3); Blood Urea Nitrogen 31 mg/dL (7-17); Calcium 8.2 mg/dL (8.4-10.2); Carbon Dioxide 30 mmol/L (22-30); Estimated CRCL calculation 6 ml/min; Estimated Glomerular Filt Rate 6; Glucose 99 mg/dL (65-110); Magnesium 1.4 mg/dL (1.6-2.3)
[2024-02-18] MEDS: ATORVASTATIN 40 MG TABLET PO (08:53)
[2024-02-18] MEDS: buPROPion HCL XL (24 HR) 150 MG TABCR PO (08:54)
[2024-02-18] MEDS: PANTOPRAZOLE 40 MG TABLET PO (08:54)
[2024-02-18] MEDS: DICYCLOMINE HCL 10 MG CAPSULE 20 MG PO ×3 (08:54→17:55)
[2024-02-18] MEDS: ESCITALOPRAM OXALATE 10 MG TABLET PO (08:54)
[2024-02-18] MEDS: busPIRone HCL 10 MG TABLET PO ×2 (08:54→17:55)
[2024-02-18] MEDS: CLOBETASOL PROPIONATE 0.05% CREAM 15 GM 1 APPLIC TOPICAL (08:55)
--- NOTE | 2024-02-18 09:15 | PM.IMPN ---
Progress Note: A&P Assessment and Plan (1) Pneumonia: Qualifiers: Laterality: left Lung location: upper lobe of lung Pneumonia type: due to unspecified organism Qualified Code(s): J18.9 - Pneumonia, unspecified organism Code(s): J18.9 - Pneumonia, unspecified organism Status: Acute Assessment and Plan: -Left upper lobe nodule vs focal pneumonia -Chest pain on exertion with negative troponins -Cefepime and doxycycline ordered -MRSA PCR ordered -Prolonged QTC would limit azithromycin or levofloxacin from being preferred agents (2) Multiple lung nodules on CT: Code(s): R91.8 - Other nonspecific abnormal finding of lung field Status: Acute Assessment and Plan: -Multiple nodules in multiple lobes -Former smoker and family history of lung cancer -Personal history documented of renal cell carcinoma -PET scan recommended by Radiology will resume heparin for DVT prophylaxis _pulm. consulted- will treat pneumonia first. Dr Barrios will see her tomorrow. will need to f/up as an oupt. to establish, monitor nodules and re assess mass (3) Type 2 diabetes mellitus with diabetic chronic kidney disease: Code(s): E11.22 - Type 2 diabetes mellitus with diabetic chronic kidney disease Status: Acute Assessment and Plan: -Hemoglobin A1c 7.2 -Patient not on any medications for diabetes at this time -ACHS fingerstick with SSI (4) Crohn's disease: Code(s): K50.90 - Crohn's disease, unspecified, without complications Status: Chronic Assessment and Plan: Chronic, currently symptoms controlled. (5) End-stage renal disease on hemodialysis: Code(s): N18.6 - End stage renal disease; Z99.2 - Dependence on renal dialysis Status: Acute Assessment and Plan: -MWF Dialysis schedule -Recieved IV contrast for CTA after dialysis on Friday 02/16 -Nephrology consulted -Hold on replacement of potassium 3.3 at this time -Monitor AM labs Plan -Recommend reaching out to Interventional Radiology to see if any lung mass can be biopsied while patient is admitted. -Consider pulmonology consult if IR unable to biopsy. Time Spent With Patient Time with patient: Greater than 35 minutes Subjective Date/time seen: 02/18/24 09:15 Interval history: cough, shortness of breath Narrative retrieved from H/P: This is a 78-year-old female patient with a history of CAD s/p stent placement 10+ years ago, DM, Crohn's disease, ESRD on HD MWF, who presented to the ED with c/o central chest pain radiating into her back. Patient reported mild cough mild shortness of breath recently. She reports that the pain is intermittent and worsens with exertion. Pain has been present for 2 days. She went to dialysis today. Patient recently had her metoprolol stopped because of low blood pressure. She was able to complete full session of dialysis but noted her heart rate went up to [address] Joe recommended she come to the ER for evaluation. Workup shows normal troponins, normal white blood cell count and stable chronic anemia. Chemistry panel consistent with ESRD. Imaging showed left upper lobe pneumonia and concerning nodules in multiple lobes that might be malignancy. Patient was started on cefepime and doxycycline in the emergency department. She did receive a CTA of the chest to rule out PE so she will likely have to undergo hemodialysis again in the morning after contrast exposure. Nephrology was consulted by the emergency department. Review of patient's past medical history does include renal cell carcinoma. seen and examined. nephrology consulted. Review of Systems Review of Systems: All systems reviewed & are unremarkable except as noted in HPI and below Exam Narrative: GENERAL: Chronically ill appearing but in no acute distress. HEAD: Normocephalic, atraumatic. EYES: PERRLA and EOMI. NECK: Supple. No JVD CHEST: Faint rales noted in the left posterior lung field with good aeration. No respiratory distress. No wheezes or rhonchi HEART: Regular rate and rhythm. No murmur heard. Normal peripheral pulses. ABDOMEN: Soft, nontender, nondistended, normal active bowel sounds. EXTREMITIES: Normal range of motion. No edema. Left upper arm dialysis site intact. SKIN: Warm, dry, no rash. NEURO: Alert and oriented x3. No focal deficit. Moving all 4 limbs spontaneously PSYCH: Normal mood and affect. Objective Data Vital Signs Vital Signs: Vital Signs - 24 hr 02/17/24 14:00 02/17/24 18:10 02/17/24 18:10 Temperature 97.6 F Pulse Rate 93 77 Respiratory Rate 16 Blood Pressure 122/49 L Pulse Oximetry 99 100 Oxygen Delivery Room Air 02/17/24 18:10 02/17/24 19:16 02/17/24 21:43 Temperature Pulse Rate 80 83 88 Respiratory Rate 20 20 16 Blood Pressure 111/44 L 157/74 H 148/82 H Pulse Oximetry 100 100 96 Oxygen Delivery 02/17/24 22:00 02/18/24 04:41 02/18/24 05:53 Temperature 97.4 F L 97.2 F L Pulse Rate 88 79 Respiratory Rate 20 20 Blood Pressure 128/48 L 123/52 L Pulse Oximetry 99 97 Oxygen Delivery Room Air Intake/Output Intake/Output: Intake & Output 02/15/24 02/16/24 02/17/24 02/18/24 23:59 23:59 23:59 23:59 Intake Total 50 Balance 50 Meds/Results Medications: Active Medications Generic Name Dose Route Start Last Admin Trade Name Freq PRN Reason Stop Dose Admin Acetaminophen 650 mg 02/17/24 20:48 Acetaminophen 325 Mg Tablet PO Q4H PRN Mild Pain (1-3) or Fever Hydrocodone Bitart/Acetaminophen 1 tab 02/17/24 23:38 02/18/24 08:58 Hydrocodone/Acetaminophen (*Crx) 5-325 Mg Tablet PO 1 tab QID PRN Administration pain 4-6 Atorvastatin Calcium 40 mg 02/18/24 09:00 02/18/24 08:53 Atorvastatin 40 Mg Tablet PO 40 mg DAILY SUKI Administration Bupropion HCl 150 mg 02/18/24 09:00 02/18/24 08:54 Bupropion Hcl Xl (24 Hr) 150 Mg Tabcr PO 150 mg QAM SUKI Administration Buspirone HCl 10 mg 02/18/24 09:00 02/18/24 08:54 Buspirone Hcl 10 Mg Tablet PO 10 mg BID SUKI Administration Cholestyramine Resin 4 gm 02/18/24 09:00 02/18/24 07:47 Cholestyramine Light 4 Gm Powd.Pack PO 4 gm TID SUKI Administration Clobetasol Propionate 1 applic 02/18/24 09:00 02/18/24 08:55 Clobetasol Propionate 0.05% Cream 15 Gm TOPICAL 1 applic BID SUKI Administration Cyclobenzaprine HCl 5 mg 02/17/24 23:38 Cyclobenzaprine Hcl 5 Mg Tablet PO TID PRN muscle spasm Dextrose 12.5 gm 02/17/24 23:59 Dextrose 50% 25 Gm/50 Ml Syringe IV PUSH PRN PRN Hypoglycemia Protocol Diclofenac Sodium 1 applic 02/17/24 23:38 Diclofenac Sodium 1% 100 Gm Gel (*Bkc) TOPICAL BID PRN painful joints Dicyclomine HCl 20 mg 02/18/24 09:00 02/18/24 08:54 Dicyclomine Hcl 10 Mg Capsule PO 20 mg TID SUKI Administration Escitalopram Oxalate 10 mg 02/18/24 09:00 02/18/24 08:54 Escitalopram Oxalate 10 Mg Tablet PO 10 mg DAILY SUKI Administration Glucagon 1 mg 02/17/24 23:59 Glucagon For Inj 1 Mg Vial IM PRN PRN Hypoglycemia Protocol Glucose 15 gm 02/17/24 23:59 Glucose Oral Gel 15 Gm Of Glucse In 37.5 Gm Tube PO PRN PRN Hypoglycemia Protocol Heparin Sodium (Porcine) 5,000 units 02/18/24 09:00 Heparin Sodium 5,000 Units/Ml Vial SUB-Q Q12HR SUKI Cefepime HCl 1 gm in 50 mls @ 100 mls/hr 02/18/24 18:00 Maxipime 1 Gm/Ns 50 Ml IVPB Q24H SUKI Insulin Aspart 4 - 8 units 02/18/24 08:00 02/18/24 08:02 Insulin Aspart (*Bkc) 100 Units/Ml SUB-Q Not Given TIDWM [facility] Protocol Levetiracetam 500 mg 02/17/24 23:40 02/18/24 08:54 Levetiracetam 500 Mg Tablet PO 500 mg Q12HR SUKI Administration Loperamide HCl 4 mg 02/17/24 23:38 Loperamide Hcl 2 Mg Capsule PO QID PRN loose stool Megestrol Acetate 200 mg 02/18/24 09:00 02/18/24 08:55 Megestrol Acetate (*Chemo) Oral Susp 40 Mg/Ml Syr PO Not Given BID SUKI Mirtazapine 30 mg 02/17/24 23:40 02/18/24 01:16 Mirtazapine 30 Mg Tablet PO 30 mg QHS SUKI Administration Pantoprazole Sodium 40 mg 02/18/24 09:00 02/18/24 08:54 Pantoprazole 40 Mg Tablet PO 40 mg QAM SUKI Administration Ropinirole HCl 0.5 mg 02/17/24 23:40 02/18/24 08:54 Ropinirole Hcl 0.5 Mg Tablet PO 0.5 mg Q12HR SUKI Administration Radiology Results: ITS Impressions Chest X-Ray 02/17/24 14:42 Impression: New bilateral airspace opacities versus nodules, as detailed above. This could reflect pneumonia versus neoplastic/metastatic disease. Chest CT recommended to further evaluate. Chest CTA 02/17/24 20:14 IMPRESSION: 1. Multiple nodules with the largest in the right upper lobe. Further evaluation with PET scan advised. 2. Left upper lobe density which may indicate pneumonia versus a mass. Further evaluation advised. 3. No pulmonary embolism. 4. 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 5. Sliding hiatus hernia 6. Atrophic kidneys. 7. Hepatomegaly 8. Prominent pancreatic duct and CBD. Labs Labs: Laboratory Results - last 24 hr 02/17/24 02/17/24 02/17/24 14:09 15:34 17:10 WBC 8.1 RBC 3.57 L Hgb 11.0 L Hct 34.3 L MCV 96.1 MCH 30.8 MCHC 32.1 RDW 15.2 H Plt Count 220 MPV 8.8 Immature Gran % (Auto) 1.2 H Neut % (Auto) 70.5 Lymph % (Auto) 16.8 L [place] % (Auto) 6.4 Eos % (Auto) 4.6 H Baso % (Auto) 0.5 Lymph # (Auto) 1.36 [place] # (Auto) 0.5 Eos # (Auto) 0.4 H Baso # (Auto) 0.0 Abs Immat Gran (auto) 0.10 H Absolute Neuts (auto) 5.7 Absolute Nucleated RBC 0.000 Nucleated RBC % 0.0 PT 13.8 INR 1.0 APTT 31.4 D-Dimer 0.71 H Sodium 137 Potassium 3.3 L Chloride 98 Carbon Dioxide 26 Anion Gap 13 H BUN 22 H D Creatinine 4.60 H Estim Creat Clear Calc 9 Estimated GFR 9 L Glucose 299 H POC Capillary Glucose Hemoglobin A1c Calcium 8.5 Magnesium Total Bilirubin 0.6 AST 18 ALT 16 Alkaline Phosphatase 162 H Troponin I 0.030 0.027 Total Protein 7.0 Albumin 4.2 Lipase 194 Nasal MRSA (PCR) Influenza A (RT-PCR) Negative Influenza B (RT-PCR) Negative RSV (RT-PCR) Negative SARS-CoV-2 RNA (RT-PCR) Negative 02/17/24 02/17/24 02/18/24 20:27 23:10 05:32 WBC RBC Hgb Hct MCV MCH MCHC RDW Plt Count MPV Immature Gran % (Auto) Neut % (Auto) Lymph % (Auto) [place] % (Auto) Eos % (Auto) Baso % (Auto) Lymph # (Auto) [place] # (Auto) Eos # (Auto) Baso # (Auto) Abs Immat Gran (auto) Absolute Neuts (auto) Absolute Nucleated RBC Nucleated RBC % PT INR APTT D-Dimer Sodium Potassium Chloride Carbon Dioxide Anion Gap BUN Creatinine Estim Creat Clear Calc Estimated GFR Glucose POC Capillary Glucose Hemoglobin A1c 7.2 H Calcium Magnesium Total Bilirubin AST ALT Alkaline Phosphatase Troponin I 0.025 Total Protein Albumin Lipase Nasal MRSA (PCR) Not detected Influenza A (RT-PCR) Influenza B (RT-PCR) RSV (RT-PCR) SARS-CoV-2 RNA (RT-PCR) 02/18/24 02/18/24 06:17 07:33 WBC 8.7 RBC 3.12 L Hgb 9.6 L Hct 29.8 L MCV 95.5 MCH 30.8 MCHC 32.2 RDW 15.1 H Plt Count 207 MPV 9.4 Immature Gran % (Auto) 1.3 H Neut % (Auto) 65.7 Lymph % (Auto) 18.9 [place] % (Auto) 9.3 H Eos % (Auto) 4.5 H Baso % (Auto) 0.3 Lymph # (Auto) 1.64 [place] # (Auto) 0.8 H Eos # (Auto) 0.4 H Baso # (Auto) 0.0 Abs Immat Gran (auto) 0.11 H Absolute Neuts (auto) 5.7 Absolute Nucleated RBC 0.000 Nucleated RBC % 0.0 PT INR APTT D-Dimer Sodium Potassium Chloride Carbon Dioxide 30 Anion Gap BUN 31 H Creatinine 6.70 H Estim Creat Clear Calc 6 Estimated GFR 6 L Glucose 99 POC Capillary Glucose 102 Hemoglobin A1c Calcium 8.2 L Magnesium 1.4 L Total Bilirubin 0.5 AST 16 ALT 12 Alkaline Phosphatase 141 H Troponin I Total Protein 6.0 L Albumin 3.4 L Lipase Nasal MRSA (PCR) Influenza A (RT-PCR) Influenza B (RT-PCR) RSV (RT-PCR) SARS-CoV-2 RNA (RT-PCR) Quality VTE Prophylaxis VTE prophylaxis: pharmacologic ordered (heparin SQ)
[2024-02-18 09:17] VITALS: O2SAT 96
[2024-02-18 09:42] LABS: Anion Gap 8 mmol/L (4-12); Chloride 102 mmol/L (98-107); Potassium 3.7 mmol/L (3.4-5.0); Sodium 140 mmol/L (137-145)
[2024-02-18 10:18] LABS: Hepatitis B Surface Antigen Negative (Negative)
[2024-02-18 10:39] LABS: Hepatitis B Surface Anti Res Positive
[2024-02-18 11:41] LABS: Glucose Point of Care 223 mg/dl (65-105)
--- NOTE | 2024-02-18 12:01 | P.CONNP_ITS ---
Assessment and Plan Assessment and plan (1) End stage renal disease: Code(s): N18.6 - End stage renal disease Status: Chronic Assessment and Plan: * HD tomorrow * continue T/T/S outpatient dialysis schedule * follow electrolytes, volume status, and clearance (2) Pneumonia: Qualifiers: Laterality: left Lung location: upper lobe of lung Pneumonia type: due to unspecified organism Qualified Code(s): J18.9 - Pneumonia, unspecified organism Code(s): J18.9 - Pneumonia, unspecified organism Status: Acute Assessment and Plan: * based on admission imaging * follow culture data * on antibiotics * respiratory status stable (3) Multiple lung nodules on CT: Code(s): R91.8 - Other nonspecific abnormal finding of lung field Status: Acute Assessment and Plan: * as noted on admission CT of chest * multiple nodules in multiple lobes * known former smoker and family history of lung cancer * known history of renal cell carcinoma as well * possible biopsy if IR able (4) Hypertension: Code(s): I10 - Essential (primary) hypertension Status: Chronic Assessment and Plan: * reasonable control at this time * resume home medications * follow trend of hemodynamics (5) Crohn's disease: Code(s): K50.90 - Crohn's disease, unspecified, without complications Status: Chronic Assessment and Plan: * chronic issue * loose stools/diarrhea at baseline * continue supportive therapy (6) Anemia: Code(s): D64.9 - Anemia, unspecified Status: Chronic Assessment and Plan: * due to ESRD * Retacrit with dialysis * follow trend of H/H (7) Diabetes: Code(s): E11.9 - Type 2 diabetes mellitus without complications Status: Chronic Assessment and Plan: * follow accu-cheks * glycemic control per hospitalists I will continue to follow the patient with you while she remains hospitalized and make further recommendations as deemed necessary. Thank you for allowing me to participate in the care of this patient. History of Present Illness Reason for Consult Consult date: 02/18/24 Reason for consult: end stage renal disease Chief Complaint Chief complaint: Pneumonia History of Present Illness Narrative: Renal consultation was requested due to her end-stage renal disease. The patient normally dialyzes on a Thursday, , Thursday dialysis schedule at [facility] under the care of Dr. Jamshid Joe. From a dialysis perspective, she has been doing reasonably well and has been compliant with her treatments. She has relative stability in her electrolytes, volume status, clearance as noted by monthly labs. Her last outpatient dialysis treatment was yesterday (02/17/24) and is due for dialysis tomorrow Currently, her appears in no acute distress at the time of my visit Review of Systems Review of Systems: As per HPI. [facility] Past Medical History Medical History Acute respiratory failure Anemia of chronic disease Callus of foot Coronary artery disease History of stent x3. COVID-19 virus infection Crohn's disease Diet-controlled diabetes mellitus A1c was 7.0 in 10/2018 and 4.8 in 01/2020. End-stage renal disease on hemodialysis Erythropoietin deficiency anemia Gastroesophageal reflux disease History of kidney stones Hypothyroidism Normal colonoscopy (08/2019) Obstructive sleep apnea No longer using CPAP after 40 lb weight loss. Osteomyelitis of toe of left foot Pericardial effusion (01/2020) Small pericardial effusion on echocardiogram, felt to be related to uremia. Peripheral autonomic neuropathy due to diabetes mellitus Peripheral vascular disease Peritonitis (01/2020) Pneumonia Renal cell carcinoma (2004) Renal osteodystrophy Restless leg syndrome Shingles (1991) Wound of right foot Surgical History Surgical History Amputation toe Left 2nd toe. History of appendectomy History of bilateral carpal tunnel release History of cardiac catheterization With stent x3. History of cholecystectomy History of colonoscopy History of complete ray amputation of second toe of left foot History of complete ray amputation of second toe of right foot History of cystoscopy With ureteral stents for kidney stones. History of foot surgery Repair of left foot fracture with pinning. History of hysterectomy (1976) With cystocele and rectocele repairs. History of partial nephrectomy (2004) Left partial nephrectomy for kidney cancer. History of tonsillectomy Family History Family History Father Renal cell carcinoma Acute myocardial infarction Cerebrovascular accident Colon polyp Heart disease Hypertension Mother Lung cancer Acute myocardial infarction Cerebrovascular accident Depression Heart disease Hypertension Son Asthma Social History Social History (Updated 02/18/24 @ 03:06 by Damion Maynard APRN) Social History: Surrogate medical decision maker: Dong Maher, son. Code status: Modified Code, No Intubation Smoking packs per day: 1 Smoking cigarettes per day: 20.0 Years smoked: 20 Smoking pack-years: 20.00 Smoking status: Former smoker Tobacco type: cigarettes Second hand tobacco smoke exposure: No Alcohol intake: never Substance use: never Do You Feel Safe in your Home?: Yes Lack of Transportation: No Lack of Food: Never True Current Housing: I Have Housing Concerned About Future Housing: No Difficulty Paying Gas/Electric Bills: No Difficulty Paying for Meds: No Currently Unemployed: No Education: High School Diploma/GED Difficulty w/ Childcare or Family Care: No Living arrangements: alone Additional living arrangements comments: , lives in [place]. 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 Spiritual care concerns: No Agree to blood products: Yes Meds Home Medications and Allergies Home Medications Medication Instructions Recorded Confirmed Type atorvastatin 40 mg tablet 40 mg PO DAILY #90 tabs 03/11/23 02/17/24 Rx bupropion HCl 150 mg 24 hr tablet, 150 mg PO QAM #90 tabs 03/11/23 02/17/24 Rx extended release buspirone 10 mg tablet 10 mg PO BID #180 tabs 03/11/23 02/17/24 Rx diclofenac sodium 1 % topical gel 2 g topical BID PRN knee pain #200 03/11/23 02/17/24 Rx (Voltaren Arthritis Pain) grams ergocalciferol (vitamin D2) 1,250 50,000 mcg PO WEEKLY #4 caps 03/11/23 02/17/24 Rx mcg (50,000 unit) capsule levetiracetam 500 mg tablet 500 mg PO Q12H #180 tabs 03/11/23 02/17/24 Rx mirtazapine 30 mg tablet 30 mg PO QHS #90 tabs 03/11/23 02/17/24 Rx pantoprazole 40 mg tablet,delayed 40 mg PO QAM #90 tabs 03/11/23 02/17/24 Rx release ropinirole 0.5 mg tablet 0.5 mg PO BID #180 tabs 03/11/23 02/17/24 Rx cyclobenzaprine 5 mg tablet 5 mg PO TID PRN muscle spasm #10 06/03/23 02/17/24 Rx tabs escitalopram oxalate 10 mg tablet 10 mg PO DAILY #30 tabs 06/17/23 02/17/24 Rx dicyclomine 20 mg tablet 20 mg PO TID #90 tabs 08/05/23 02/17/24 Rx megestrol 400 mg/10 mL (10 mL) 200 mg (5 mL) PO BID #300 mL 08/27/23 02/17/24 Rx oral suspension hydrocodone 5 mg-acetaminophen 325 1 tablet PO QID PRN pain #120 tabs 01/26/24 02/17/24 Rx mg tablet cholestyramine-aspartame 4 gram 4 g PO TID #239.4 grams 02/10/24 02/17/24 Rx oral powder (Cholestyramine Light) clobetasol 0.05 % topical cream 1 applic topical BID #30 grams 02/10/24 02/17/24 Rx loperamide 2 mg tablet 4 mg PO QID PRN loose stool #100 02/10/24 02/17/24 Rx tabs Allergies Allergy/AdvReac Type Severity Reaction Status Date / Time cortisone Allergy Intermediate Dyspnea / Verified 02/10/24 13:51 SOB Penicillins Allergy Intermediate Dyspnea / Verified 02/10/24 13:51 SOB ceftriaxone [From Rocephin] Allergy Difficulty Verified 02/10/24 13:51 Breathing Vital Signs Vital Signs Temp Pulse Resp BP Pulse Ox O2 Del Method 02/18/24 09:17 96 Room Air 02/18/24 05:53 97.2 F L 79 20 123/52 L 97 02/18/24 04:41 Room Air 02/17/24 22:00 97.4 F L 88 20 128/48 L 99 02/17/24 21:43 88 16 148/82 H 96 02/17/24 19:16 83 20 157/74 H 100 02/17/24 18:10 80 20 111/44 L 100 02/17/24 18:10 100 Room Air 02/17/24 18:10 77 02/17/24 14:00 97.6 F 93 16 122/49 L 99 Exam Narrative: GENERAL APPEARANCE: elderly female in NAD HEENT: normocephalic, atraumatic, normal conjunctiva and sclera, nares patient NECK: no lymphadenopathy, thyromegaly, or JVD MOUTH: normal lips, teeth, and gums CARDIOVASCULAR: RRR, normal S1 and S2, no rub RESPIRATORY: clear anteriorly; a few bibasilar crackles ABDOMEN: soft, nontender, nondistended, positive bowel sounds present EXTREMITIES: no evidence of cyanosis, clubbing; trace edema NEUROLOGICAL: awake and alert; CN II - XII intact; no focal deficits Results Lab Results 02/18/24 06:17 02/18/24 06:17 Lab results: Most recent lab results Calcium 8.2 mg/dL (8.4-10.2) L 02/18/24 06:17 Magnesium 1.4 mg/dL (1.6-2.3) L 02/18/24 06:17
[2024-02-18 14:00] VITALS: BP 105/74; PULSE 73; RESP 18; TEMP 36.2; O2SAT 100
--- NOTE | 2024-02-18 15:44 | P.CONPL_ITS ---
Assessment and Plan Assessment and plan (1) Multiple lung nodules on CT: Code(s): R91.8 - Other nonspecific abnormal finding of lung field Status: Acute Assessment and Plan: CT 02/17/24 shows multiple pulmonary nodules, largest RUL 2.7 cm, RLL 1.6 cm, YAZMIN 1 cm, LLL 1.8 cm. Radiologist recommended PET scan after discharge. She has a family history of lung cancer, her mother from lung cancer age 74. (2) History of tobacco abuse: Code(s): Z87.891 - Personal history of nicotine dependence Status: Acute Assessment and Plan: smoked 1.2 ppd, stopped 1993, 30 years = 15 pack years, no vaping or marijuana. Plan plan: She is stable for discharge. Best plan is to have her PET scan after discharge, then follow up in pulmonary office. Biopsy will be considered based on results of the PET scan. I will request Dr Singer order the PET and see her after results are available. History of Present Illness History of Present Illness Consult date: 02/19/24 Chief complaint: Pneumonia Narrative: patient was seen Feb 19, 2024 at 18:45 Room 302; son Wilfredo was present during the visit She is being discharged home to [facility] NEW: Layla Maher is 78 years old, had a CTA Feb 16 showing multiple nodules including 2.6 cm nodule in the RUL peripherally, RLL 1.6 cm, YAZMIN 1 cm, LLL 1.8 cm. Radiologist recommends PET scan. She was admitted Dec 5 c/o intermittent chest pain, mild cough, and shortness of breath. Chest CT showed multiple pulmonary nodules. She was at treated for pneumonia, feels much better compared to admission. She did not have occupational exposure to asbestos, silica, vapors. No history. 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 The patient's mother from lung cancer at age 74, was a smoker. tobacco: She is an ex-smoker, quit 1993, smoked 1/2 ppd. 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 PMH: CAD s/p stent placement 10+ years ago, DM, Crohn's disease, ESRD on HD MWF for 4 years. DATA * 02/17/2024 CTA ;MEDIASTINUM: Aorta/coronary arteries: Mild atheromatous disease. Heart/other: The heart is slightly enlarged. Lymph nodes: No mediastinal or hi lar adenopathy. Prevascular lymph nodes with the largest measuring 1.1 cm is seen. LUNGS: Soft tissues density is seen in the left upper lobe which may be pneumonia but a mass is not excluded. Nodule is seen in the left lung upper lobe anteriorly measuring 1 cm. Focal area also seen in the left lower lobe laterally measuring 1.8 cm. Nodule is seen in the right lower lobe measuring 1.6 cm. Mass is seen in the right upper lobe measuring 2.7 cm. No infiltrates or effusions. No pneumothorax. VISUALIZED UPPER ABDOMEN: Severe narrowing at the origin of the superior mesenteric artery. Sliding hiatus hernia. Prominent pancreatic duct. Dilated CBD. Hepatomegaly. Atrophic kidneys. Slightly prominent left adrenal gland. Otherwise, the visualized upper abdomen is normal. MUSCULOSKELETAL: Soft tissues: The superficial soft tissues are normal. Bones: Age appropriate degenerative changes of the spine. . Fracture is seen in the right 4 and fifth ribs IMPRESSION: 1. Multiple nodules with the largest in the right upper lobe. Further evaluation with PET scan advised. 2. Left upper lobe density which may indicate pneumonia versus a mass. Further evaluation advised. 3. No pulmonary embolism. 4. 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 5. Sliding hiatus hernia 6. Atrophic kidneys. 7. Hepatomegaly 8. Prominent pancreatic duct and CBD. Review of Systems Review of Systems: no weight loss, no dysphagia, no chronic cough, no chest pain, no hemoptysis. All systems reviewed & are unremarkable except as noted in HPI and below PMFSH Past Medical History Medical History Acute respiratory failure Anemia of chronic disease Callus of foot Coronary artery disease History of stent x3. COVID-19 virus infection Crohn's disease Diet-controlled diabetes mellitus A1c was 7.0 in 10/2018 and 4.8 in 01/2020. End-stage renal disease on hemodialysis Erythropoietin deficiency anemia Gastroesophageal reflux disease History of kidney stones Hypothyroidism Normal colonoscopy (08/2019) Obstructive sleep apnea No longer using CPAP after 40 lb weight loss. Osteomyelitis of toe of left foot Pericardial effusion (01/2020) Small pericardial effusion on echocardiogram, felt to be related to uremia. Peripheral autonomic neuropathy due to diabetes mellitus Peripheral vascular disease Peritonitis (01/2020) Pneumonia Renal cell carcinoma (2004) Renal osteodystrophy Restless leg syndrome Shingles (1991) Wound of right foot Surgical History Surgical History Amputation toe Left 2nd toe. History of appendectomy History of bilateral carpal tunnel release History of cardiac catheterization With stent x3. History of cholecystectomy History of colonoscopy History of complete ray amputation of second toe of left foot History of complete ray amputation of second toe of right foot History of cystoscopy With ureteral stents for kidney stones. History of foot surgery Repair of left foot fracture with pinning. History of hysterectomy (1976) With cystocele and rectocele repairs. History of partial nephrectomy (2004) Left partial nephrectomy for kidney cancer. History of tonsillectomy Family History Family History Father Renal cell carcinoma Acute myocardial infarction Cerebrovascular accident Colon polyp Heart disease Hypertension Mother Lung cancer Acute myocardial infarction Cerebrovascular accident Depression Heart disease Hypertension Son Asthma Social History Social History (Updated 02/18/24 @ 03:06 by Damion Maynard APRN) Social History: Surrogate medical decision maker: Dong Maher, son. Code status: Modified Code, No Intubation Smoking packs per day: 1 Smoking cigarettes per day: 20.0 Years smoked: 20 Smoking pack-years: 20.00 Smoking status: Former smoker Tobacco type: cigarettes Second hand tobacco smoke exposure: No Alcohol intake: never Substance use: never Do You Feel Safe in your Home?: Yes Lack of Transportation: No Lack of Food: Never True Current Housing: I Have Housing Concerned About Future Housing: No Difficulty Paying Gas/Electric Bills: No Difficulty Paying for Meds: No Currently Unemployed: No Education: High School Diploma/GED Difficulty w/ Childcare or Family Care: No Living arrangements: alone Additional living arrangements comments: , lives in [place]. 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 Spiritual care concerns: No Agree to blood products: Yes Meds Home Medications and Allergies Home Medications Medication Instructions Recorded Confirmed Type atorvastatin 40 mg tablet 40 mg PO DAILY #90 tabs 03/11/23 02/17/24 Rx bupropion HCl 150 mg 24 hr tablet, 150 mg PO QAM #90 tabs 03/11/23 02/17/24 Rx extended release buspirone 10 mg tablet 10 mg PO BID #180 tabs 03/11/23 02/17/24 Rx diclofenac sodium 1 % topical gel 2 g topical BID PRN knee pain #200 03/11/23 02/17/24 Rx (Voltaren Arthritis Pain) grams ergocalciferol (vitamin D2) 1,250 50,000 mcg PO WEEKLY #4 caps 03/11/23 02/17/24 Rx mcg (50,000 unit) capsule levetiracetam 500 mg tablet 500 mg PO Q12H #180 tabs 03/11/23 02/17/24 Rx mirtazapine 30 mg tablet 30 mg PO QHS #90 tabs 03/11/23 02/17/24 Rx pantoprazole 40 mg tablet,delayed 40 mg PO QAM #90 tabs 03/11/23 02/17/24 Rx release ropinirole 0.5 mg tablet 0.5 mg PO BID #180 tabs 03/11/23 02/17/24 Rx cyclobenzaprine 5 mg tablet 5 mg PO TID PRN muscle spasm #10 06/03/23 02/17/24 Rx tabs escitalopram oxalate 10 mg tablet 10 mg PO DAILY #30 tabs 06/17/23 02/17/24 Rx dicyclomine 20 mg tablet 20 mg PO TID #90 tabs 08/05/23 02/17/24 Rx megestrol 400 mg/10 mL (10 mL) 200 mg (5 mL) PO BID #300 mL 08/27/23 02/17/24 Rx oral suspension hydrocodone 5 mg-acetaminophen 325 1 tablet PO QID PRN pain #120 tabs 01/26/24 02/17/24 Rx mg tablet cholestyramine-aspartame 4 gram 4 g PO TID #239.4 grams 02/10/24 02/17/24 Rx oral powder (Cholestyramine Light) clobetasol 0.05 % topical cream 1 applic topical BID #30 grams 02/10/24 02/17/24 Rx loperamide 2 mg tablet 4 mg PO QID PRN loose stool #100 02/10/24 02/17/24 Rx tabs doxycycline monohydrate 100 mg 100 mg PO BID #10 caps 02/19/24 Rx capsule Allergies Allergy/AdvReac Type Severity Reaction Status Date / Time cortisone Allergy Intermediate Dyspnea / Verified 02/10/24 13:51 SOB Penicillins Allergy Intermediate Dyspnea / Verified 02/10/24 13:51 SOB ceftriaxone [From Rocephin] Allergy Difficulty Verified 02/10/24 13:51 Breathing Vital Signs Vital Signs - 24 hr 02/17/24 18:10 02/17/24 18:10 02/17/24 18:10 Temperature Pulse Rate 77 80 Respiratory Rate 20 Blood Pressure 111/44 L Pulse Oximetry 100 100 Oxygen Delivery Room Air 02/17/24 19:16 02/17/24 21:43 02/17/24 22:00 Temperature 36.3 C L Pulse Rate 83 88 88 Respiratory Rate 20 16 20 Blood Pressure 157/74 H 148/82 H 128/48 L Pulse Oximetry 100 96 99 Oxygen Delivery 02/18/24 04:41 02/18/24 05:53 02/18/24 09:17 Temperature 36.2 C L Pulse Rate 79 Respiratory Rate 20 Blood Pressure 123/52 L Pulse Oximetry 97 96 Oxygen Delivery Room Air Room Air 02/18/24 08:00 02/18/24 14:00 Temperature 36.2 C L Pulse Rate 73 Respiratory Rate 18 Blood Pressure 105/74 Pulse Oximetry 100 Oxygen Delivery Room Air Exam Narrative: GEN: Alert, oriented, not in distress. She is breathing room air, saturation is 97%. Shei s in a wheelchair for her ride to the car. HEENT: pupils are equal, EOMI, symmetrical face; oral membranes dry, Mallampati II airway NECK: Trachea is midline CHEST: Equal air entry, symmetric excursion, decresed breath sounds right base. No wheezing. CV: Regular S1S2 no m/g/r ABD : (+) bowel sounds Extremities : no clubbing, cyanosis, or edema PSYCH: normal thought and speech Results Laboratory Findings 02/19/24 05:32 02/19/24 05:32 ABG, PT/INR, D-dimer: PT/INR, D-dimer PT 13.8 Seconds (11.1-14.7) 02/17/24 14:09 INR 1.0 02/17/24 14:09 D-Dimer 0.71 ug/mL (<0.48) H 02/17/24 14:09 Abnormal lab findings: Abnormal Labs 02/17/24 02/17/24 02/18/24 14:09 23:10 06:17 RBC 3.57 L 3.12 L Hgb 11.0 L 9.6 L Hct 34.3 L 29.8 L RDW 15.2 H 15.1 H Immature Gran % (Auto) 1.2 H 1.3 H Lymph % (Auto) 16.8 L Drew % (Auto) 9.3 H Eos % (Auto) 4.6 H 4.5 H Drew # (Auto) 0.8 H Eos # (Auto) 0.4 H 0.4 H Abs Immat Gran (auto) 0.10 H 0.11 H D-Dimer 0.71 H Potassium 3.3 L Anion Gap 13 H BUN 22 H D 31 H Creatinine 4.60 H 6.70 H Estimated GFR 9 L 6 L Glucose 299 H POC Capillary Glucose Hemoglobin A1c 7.2 H Calcium 8.2 L Magnesium 1.4 L Alkaline Phosphatase 162 H 141 H Total Protein 6.0 L Albumin 3.4 L 02/18/24 11:30 RBC Hgb Hct RDW Immature Gran % (Auto) Lymph % (Auto) [place] % (Auto) Eos % (Auto) Drew # (Auto) Eos # (Auto) Abs Immat Gran (auto) D-Dimer Potassium Anion Gap BUN Creatinine Estimated GFR Glucose POC Capillary Glucose 223 H Hemoglobin A1c Calcium Magnesium Alkaline Phosphatase Total Protein Albumin
[2024-02-18 17:02] LABS: Glucose Point of Care 152 mg/dl (65-105)
[2024-02-18] MEDS: CEFEPIME 1 GM/NS 50 ML 1 GM/50 ML BAG IVPB (17:54)
[2024-02-18] MEDS: CYCLOBENZAPRINE HCL 5 MG TABLET PO (20:13)
[2024-02-18 20:48] LABS: Glucose Point of Care 276 mg/dl (65-105)
[2024-02-18 22:00] VITALS: BP 150/58; PULSE 90; RESP 16; TEMP 35.9; O2SAT 95
[2024-02-19] VITALS (19 sets, daily range): BP systolic 126–179; BP diastolic 47–83; PULSE 73–101; RESP 16–18; TEMP 36–37; O2SAT 95–98
[2024-02-19] MEDS: HYDROcodone/acetaminophen (*CRX) 5-325 MG TABLET 1 TAB PO ×2 (05:24→19:47)
[2024-02-19 06:08] LABS: Basophils Percent Auto 0.2 % (0.2-1.2); Eosinophils Absolute Auto 0.5 K/mm3 (0-0.3); Eosinophils Percent Auto 5.1 % (0-4.4); Hematocrit 30.8 % (37.0-47.0); Hemoglobin 9.9 g/dL (12.0-15.0); Immature Granulocyte Absolute 0.11 K/mm3 (0.00-0.031); Immature Granulocyte Percent A 1.2 % (0-0.5); Lymphocytes Absolute Auto 1.61 K/mm3 (0.9-3.2); Mean Corpuscular HGB Conc 32.1 g/dl (32-36); Mean Corpuscular Hemoglobin 30.7 pg (26-34); Mean Corpuscular Volume 95.4 fl (80-100); Monocytes Absolute Auto 0.7 K/mm3 (0.1-0.6); Monocytes Percent Auto 7.3 % (2.6-8.5); Neutrophils Absolute Auto 6.5 K/mm3 (1.3-6.7); Neutrophils Percent Auto 69.2 % (45.5-73.1); Platelet Count Result 223 k/mm3 (150-375); Red Blood Count 3.23 M/mm3 (4.2-5.4); Red Cell Distribution Width 14.9 % (11.5-14.5); White Blood Count 9.5 K/mm3 (4.5-10.0)
[2024-02-19 06:53] LABS: Alanine Aminotransferase 13 U/L (6-35); Albumin Level 3.8 g/dL (3.5-5.1); Alkaline Phosphatase 155 U/L (38-126); Anion Gap 14 mmol/L (4-12); Aspartate Amino Transferase 16 U/L (14-36); Bilirubin,Total 0.6 mg/dL (0.2-1.3); Blood Urea Nitrogen 44 mg/dL (7-17); Calcium 8.6 mg/dL (8.4-10.2); Carbon Dioxide 24 mmol/L (22-30); Chloride 103 mmol/L (98-107); Estimated CRCL calculation 5 ml/min; Estimated Glomerular Filt Rate 5; Glucose 114 mg/dL (65-110); Magnesium 1.5 mg/dL (1.6-2.3); Sodium 141 mmol/L (137-145)
[2024-02-19 07:33] LABS: Glucose Point of Care 117 mg/dl (65-105)
--- NOTE | 2024-02-19 09:11 | PC.NURSE ---
Patient taken to dialysis via bed at 0900.
--- NOTE | 2024-02-19 09:14 | PM.IMPN ---
Progress Note: A&P Assessment and Plan (1) Pneumonia: Qualifiers: Laterality: left Lung location: upper lobe of lung Pneumonia type: due to unspecified organism Qualified Code(s): J18.9 - Pneumonia, unspecified organism Code(s): J18.9 - Pneumonia, unspecified organism Status: Acute Assessment and Plan: -Left upper lobe nodule vs focal pneumonia -Chest pain on exertion with negative troponins -Cefepime and doxycycline ordered -MRSA PCR ordered -Prolonged QTC would limit azithromycin or levofloxacin from being preferred agents (2) Multiple lung nodules on CT: Code(s): R91.8 - Other nonspecific abnormal finding of lung field Status: Acute Assessment and Plan: -Multiple nodules in multiple lobes -Former smoker and family history of lung cancer -Personal history documented of renal cell carcinoma -PET scan recommended by Radiology will resume heparin for DVT prophylaxis _pulm. consulted- will treat pneumonia first. Dr Barrios will see her tomorrow. will need to f/up as an oupt. to establish, monitor nodules and re assess mass (3) Type 2 diabetes mellitus with diabetic chronic kidney disease: Code(s): E11.22 - Type 2 diabetes mellitus with diabetic chronic kidney disease Status: Acute Assessment and Plan: -Hemoglobin A1c 7.2 -Patient not on any medications for diabetes at this time -ACHS fingerstick with SSI (4) Crohn's disease: Code(s): K50.90 - Crohn's disease, unspecified, without complications Status: Chronic Assessment and Plan: Chronic, currently symptoms controlled. (5) End-stage renal disease on hemodialysis: Code(s): N18.6 - End stage renal disease; Z99.2 - Dependence on renal dialysis Status: Acute Assessment and Plan: -MWF Dialysis schedule -Recieved IV contrast for CTA after dialysis on Friday 02/16 -Nephrology consulted -Hold on replacement of potassium 3.3 at this time -Monitor AM labs Plan -Recommend reaching out to Interventional Radiology to see if any lung mass can be biopsied while patient is admitted. -Consider pulmonology consult if IR unable to biopsy. Subjective Date/time seen: 02/19/24 09:14 Interval history: cough, shortness of breath Narrative retrieved from H/P: This is a 78-year-old female patient with a history of CAD s/p stent placement 10+ years ago, DM, Crohn's disease, ESRD on HD MWF, who presented to the ED with c/o central chest pain radiating into her back. Patient reported mild cough mild shortness of breath recently. She reports that the pain is intermittent and worsens with exertion. Pain has been present for 2 days. She went to dialysis today. Patient recently had her metoprolol stopped because of low blood pressure. She was able to complete full session of dialysis but noted her heart rate went up to [address] Joe recommended she come to the ER for evaluation. Workup shows normal troponins, normal white blood cell count and stable chronic anemia. Chemistry panel consistent with ESRD. Imaging showed left upper lobe pneumonia and concerning nodules in multiple lobes that might be malignancy. Patient was started on cefepime and doxycycline in the emergency department. She did receive a CTA of the chest to rule out PE so she will likely have to undergo hemodialysis again in the morning after contrast exposure. Nephrology was consulted by the emergency department. Review of patient's past medical history does include renal cell carcinoma. 02/17 seen and examined. nephrology consulted. 02/18 pulm was consulted. will need to establish and f/u with pulm for further monitoring and r eval. Review of Systems Review of Systems: All systems reviewed & are unremarkable except as noted in HPI and below Exam Narrative: GENERAL: Chronically ill appearing but in no acute distress. HEAD: Normocephalic, atraumatic. EYES: PERRLA and EOMI. NECK: Supple. No JVD CHEST: Faint rales noted in the left posterior lung field with good aeration. No respiratory distress. No wheezes or rhonchi HEART: Regular rate and rhythm. No murmur heard. Normal peripheral pulses. ABDOMEN: Soft, nontender, nondistended, normal active bowel sounds. EXTREMITIES: Normal range of motion. No edema. Left upper arm dialysis site intact. SKIN: Warm, dry, no rash. NEURO: Alert and oriented x3. No focal deficit. Moving all 4 limbs spontaneously PSYCH: Normal mood and affect. Objective Data Vital Signs Vital Signs: Vital Signs - 24 hr 02/18/24 09:17 02/18/24 14:00 02/18/24 20:00 Temperature 97.2 F L Pulse Rate 73 Respiratory Rate 18 Blood Pressure 105/74 Pulse Oximetry 96 100 Oxygen Delivery Room Air Room Air 02/18/24 22:00 02/19/24 05:50 Temperature 96.7 F L 97.2 F L Pulse Rate 90 86 Respiratory Rate 16 16 Blood Pressure 150/58 H 148/57 H Pulse Oximetry 95 95 Oxygen Delivery Intake/Output Intake/Output: Intake & Output 02/16/24 02/17/24 02/18/24 02/19/24 23:59 23:59 23:59 23:59 Intake Total 50 1020 Balance 50 1020 Meds/Results Medications: Active Medications Generic Name Dose Route Start Last Admin Trade Name Freq PRN Reason Stop Dose Admin Acetaminophen 650 mg 02/17/24 20:48 Acetaminophen 325 Mg Tablet PO Q4H PRN Mild Pain (1-3) or Fever Hydrocodone Bitart/Acetaminophen 1 tab 02/17/24 23:38 02/19/24 05:24 Hydrocodone/Acetaminophen (*Crx) 5-325 Mg Tablet PO 1 tab QID PRN Administration pain 4-6 Atorvastatin Calcium 40 mg 02/18/24 09:00 02/18/24 08:53 Atorvastatin 40 Mg Tablet PO 40 mg DAILY SUKI Administration Bupropion HCl 150 mg 02/18/24 09:00 02/18/24 08:54 Bupropion Hcl Xl (24 Hr) 150 Mg Tabcr PO 150 mg QAM SUKI Administration Buspirone HCl 10 mg 02/18/24 09:00 02/18/24 17:55 Buspirone Hcl 10 Mg Tablet PO 10 mg BID SUKI Administration Cholestyramine Resin 4 gm 02/18/24 15:00 02/19/24 09:11 Cholestyramine Light 4 Gm Powd.Pack PO Not Given 1000,1500,2200 SUKI Clobetasol Propionate 1 applic 02/18/24 11:06 Clobetasol Propionate 0.05% Cream 15 Gm TOPICAL BID PRN rash Cyclobenzaprine HCl 5 mg 02/17/24 23:38 02/18/24 20:13 Cyclobenzaprine Hcl 5 Mg Tablet PO 5 mg TID PRN Administration muscle spasm Dextrose 12.5 gm 02/17/24 23:59 Dextrose 50% 25 Gm/50 Ml Syringe IV PUSH PRN PRN Hypoglycemia Protocol Diclofenac Sodium 1 applic 02/17/24 23:38 Diclofenac Sodium 1% 100 Gm Gel (*Bkc) TOPICAL BID PRN painful joints Dicyclomine HCl 20 mg 02/18/24 09:00 02/18/24 17:55 Dicyclomine Hcl 10 Mg Capsule PO 20 mg TID SUKI Administration Epoetin Kelechi-epbx 10,000 units 02/19/24 18:10 Epoetin Kelechi-Epbx 10,000 Units/Ml Vial IV PUSH 02/19/24 18:11 ONCE ONE Escitalopram Oxalate 10 mg 02/18/24 09:00 02/18/24 08:54 Escitalopram Oxalate 10 Mg Tablet PO 10 mg DAILY SUKI Administration Glucagon 1 mg 02/17/24 23:59 Glucagon For Inj 1 Mg Vial IM PRN PRN Hypoglycemia Protocol Glucose 15 gm 02/17/24 23:59 Glucose Oral Gel 15 Gm Of Glucse In 37.5 Gm Tube PO PRN PRN Hypoglycemia Protocol Heparin Sodium (Porcine) 5,000 units 02/18/24 09:00 02/18/24 20:16 Heparin Sodium 5,000 Units/Ml Vial SUB-Q Not Given Q12HR SUKI Cefepime HCl 1 gm in 50 mls @ 100 mls/hr 02/18/24 18:00 02/18/24 18:24 Maxipime 1 Gm/Ns 50 Ml IVPB Infused Q24H SUKI Infusion Albumin Human 50 mls @ 999 mls/hr 02/19/24 06:08 Albutein IVPB 03/20/24 06:07 Q10M PRN HYPOTENSION Insulin Aspart 4 - 8 units 02/18/24 08:00 02/19/24 07:36 Insulin Aspart (*Bkc) 100 Units/Ml SUB-Q Not Given TIDWM SUKI Protocol Levetiracetam 500 mg 02/17/24 23:40 02/18/24 20:14 Levetiracetam 500 Mg Tablet PO 500 mg Q12HR SUKI Administration Loperamide HCl 4 mg 02/17/24 23:38 Loperamide Hcl 2 Mg Capsule PO QID PRN loose stool Mirtazapine 30 mg 02/17/24 23:40 02/18/24 20:14 Mirtazapine 30 Mg Tablet PO 30 mg QHS SUKI Administration Pantoprazole Sodium 40 mg 02/18/24 09:00 02/18/24 08:54 Pantoprazole 40 Mg Tablet PO 40 mg QAM SUKI Administration Ropinirole HCl 0.5 mg 02/17/24 23:40 02/18/24 20:14 Ropinirole Hcl 0.5 Mg Tablet PO 0.5 mg Q12HR SUKI Administration Radiology Results: ITS Impressions Chest X-Ray 02/17/24 14:42 Impression: New bilateral airspace opacities versus nodules, as detailed above. This could reflect pneumonia versus neoplastic/metastatic disease. Chest CT recommended to further evaluate. Chest CTA 02/17/24 20:14 IMPRESSION: 1. Multiple nodules with the largest in the right upper lobe. Further evaluation with PET scan advised. 2. Left upper lobe density which may indicate pneumonia versus a mass. Further evaluation advised. 3. No pulmonary embolism. 4. 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 5. Sliding hiatus hernia 6. Atrophic kidneys. 7. Hepatomegaly 8. Prominent pancreatic duct and CBD. Labs Labs: Laboratory Results - last 24 hr 02/18/24 02/18/24 02/18/24 06:17 11:30 16:58 WBC RBC Hgb Hct MCV MCH MCHC RDW Plt Count MPV Immature Gran % (Auto) Neut % (Auto) Lymph % (Auto) [place] % (Auto) Eos % (Auto) Baso % (Auto) Lymph # (Auto) [place] # (Auto) Eos # (Auto) Baso # (Auto) Abs Immat Gran (auto) Absolute Neuts (auto) Absolute Nucleated RBC Nucleated RBC % Sodium 140 Potassium 3.7 Chloride 102 Carbon Dioxide Anion Gap 8 BUN Creatinine Estim Creat Clear Calc Estimated GFR Glucose POC Capillary Glucose 223 H 152 H Calcium Magnesium Total Bilirubin AST ALT Alkaline Phosphatase Total Protein Albumin Hep Bs Antigen Negative Hep Bs Antibody Positive 02/18/24 02/19/24 02/19/24 20:43 05:32 07:16 WBC 9.5 RBC 3.23 L Hgb 9.9 L Hct 30.8 L MCV 95.4 MCH 30.7 MCHC 32.1 RDW 14.9 H Plt Count 223 MPV 9.0 Immature Gran % (Auto) 1.2 H Neut % (Auto) 69.2 Lymph % (Auto) 17.0 L [place] % (Auto) 7.3 Eos % (Auto) 5.1 H Baso % (Auto) 0.2 Lymph # (Auto) 1.61 [place] # (Auto) 0.7 H Eos # (Auto) 0.5 H Baso # (Auto) 0.0 Abs Immat Gran (auto) 0.11 H Absolute Neuts (auto) 6.5 Absolute Nucleated RBC 0.000 Nucleated RBC % 0.0 Sodium 141 Potassium 4.0 Chloride 103 Carbon Dioxide 24 Anion Gap 14 H BUN 44 H D Creatinine 8.50 H Estim Creat Clear Calc 5 Estimated GFR 5 L Glucose 114 H POC Capillary Glucose 276 H 117 H Calcium 8.6 Magnesium 1.5 L Total Bilirubin 0.6 AST 16 ALT 13 Alkaline Phosphatase 155 H Total Protein 7.0 Albumin 3.8 Hep Bs Antigen Hep Bs Antibody Quality VTE Prophylaxis VTE prophylaxis: pharmacologic ordered (heparin SQ)
--- NOTE | 2024-02-19 09:40 | P.PNNP_ITS ---
Progress Note: A&P Assessment and Plan (1) End stage renal disease: Code(s): N18.6 - End stage renal disease Status: Chronic Assessment and Plan: * HD today * continue T/T/S outpatient dialysis schedule * follow electrolytes, volume status, and clearance (2) Pneumonia: Qualifiers: Laterality: left Lung location: upper lobe of lung Pneumonia type: due to unspecified organism Qualified Code(s): J18.9 - Pneumonia, unspecified organ ism Code(s): J18.9 - Pneumonia, unspecified organism Status: Acute Assessment and Plan: * based on admission imaging * follow culture data * on antibiotics * respiratory status stable (3) Multiple lung nodules on CT: Code(s): R91.8 - Other nonspecific abnormal finding of lung field Status: Acute Assessment and Plan: * as noted on admission CT of chest * multiple nodules in multiple lobes * known former smoker and family history of lung cancer * known history of renal cell carcinoma as well * Pulmonary consulted/following (4) Hypertension: Code(s): I10 - Essential (primary) hypertension Status: Chronic Assessment and Plan: * reasonable control at this time * resume home medications * follow trend of hemodynamics (5) Crohn's disease: Code(s): K50.90 - Crohn's disease, unspecified, without complications Status: Chronic Assessment and Plan: * chronic issue * loose stools/diarrhea at baseline * continue supportive therapy (6) Anemia: Code(s): D64.9 - Anemia, unspecified Status: Chronic Assessment and Plan: * due to ESRD * Retacrit with dialysis * follow trend of H/H (7) Diabetes: Code(s): E11.9 - Type 2 diabetes mellitus without complications Status: Chronic Assessment and Plan: * follow accu-cheks * glycemic control per hospitalists Will continue to follow. Subjective Date/time seen: 02/19/24 09:40 Interval history: Follow-up for end stage renal disease on hemodialysis. Tolerating dialysis treatment at the time of my visit (seen on HD at 9:30AM); no apparent distress noted; reports feeling better overall with less coughing since admission; no issues/events overnight or earlier this morning. Exam Narrative: General: elderly female in NAD Heart: normal S1 and S2; no rub Lungs: clear anteriorly; few crackles at the bases Abdomen: soft, nontender, nondistended, positive bowel sounds Extremities: no cyanosis or clubbing; no edema Skin: warm and dry Objective Data Vital Signs Vital Signs: Vital Signs Temp Pulse Resp BP Pulse Ox O2 Del Method FiO2 02/19/24 09:33 75 146/66 H 02/19/24 09:21 98.1 F 84 16 146/63 H 98 02/19/24 09:21 98 02/19/24 08:00 Room Air 02/19/24 05:50 97.2 F L 86 16 148/57 H 95 02/18/24 22:00 96.7 F L 90 16 150/58 H 95 02/18/24 20:00 Room Air 02/18/24 14:00 97.2 F L 73 18 105/74 100 Intake/Output Intake/Output: Intake & Output 02/16/24 02/17/24 02/18/24 02/19/24 23:59 23:59 23:59 23:59 Intake Total 50 1020 Balance 50 1020 Meds/Results Medications: Active Medications Generic Name Dose Route Start Last Admin Trade Name Freq PRN Reason Stop Dose Admin Acetaminophen 650 mg 02/17/24 20:48 Acetaminophen 325 Mg Tablet PO Q4H PRN Mild Pain (1-3) or Fever Hydrocodone Bitart/Acetaminophen 1 tab 02/17/24 23:38 02/19/24 05:24 Hydrocodone/Acetaminophen (*Crx) 5-325 Mg Tablet PO 1 tab QID PRN Administration pain 4-6 Atorvastatin Calcium 40 mg 02/18/24 09:00 02/18/24 08:53 Atorvastatin 40 Mg Tablet PO 40 mg DAILY SUKI Administration Bupropion HCl 150 mg 02/18/24 09:00 02/18/24 08:54 Bupropion Hcl Xl (24 Hr) 150 Mg Tabcr PO 150 mg QAM SUKI Administration Buspirone HCl 10 mg 02/18/24 09:00 02/18/24 17:55 Buspirone Hcl 10 Mg Tablet PO 10 mg BID SUKI Administration Cholestyramine Resin 4 gm 02/18/24 15:00 02/19/24 09:11 Cholestyramine Light 4 Gm Powd.Pack PO Not Given 1000,1500,2200 SUKI Clobetasol Propionate 1 applic 02/18/24 11:06 Clobetasol Propionate 0.05% Cream 15 Gm TOPICAL BID PRN rash Cyclobenzaprine HCl 5 mg 02/17/24 23:38 02/18/24 20:13 Cyclobenzaprine Hcl 5 Mg Tablet PO 5 mg TID PRN Administration muscle spasm Dextrose 12.5 gm 02/17/24 23:59 Dextrose 50% 25 Gm/50 Ml Syringe IV PUSH PRN PRN Hypoglycemia Protocol Diclofenac Sodium 1 applic 02/17/24 23:38 Diclofenac Sodium 1% 100 Gm Gel (*Bkc) TOPICAL BID PRN painful joints Dicyclomine HCl 20 mg 02/18/24 09:00 02/19/24 09:21 Dicyclomine Hcl 10 Mg Capsule PO Not Given TID SUKI Epoetin Kelechi-epbx 10,000 units 02/19/24 18:10 Epoetin Kelechi-Epbx 10,000 Units/Ml Vial IV PUSH 02/19/24 18:11 ONCE ONE Escitalopram Oxalate 10 mg 02/18/24 09:00 02/18/24 08:54 Escitalopram Oxalate 10 Mg Tablet PO 10 mg DAILY SUKI Administration Glucagon 1 mg 02/17/24 23:59 Glucagon For Inj 1 Mg Vial IM PRN PRN Hypoglycemia Protocol Glucose 15 gm 02/17/24 23:59 Glucose Oral Gel 15 Gm Of Glucse In 37.5 Gm Tube PO PRN PRN Hypoglycemia Protocol Heparin Sodium (Porcine) 5,000 units 02/18/24 09:00 02/18/24 20:16 Heparin Sodium 5,000 Units/Ml Vial SUB-Q Not Given Q12HR SUKI Cefepime HCl 1 gm in 50 mls @ 100 mls/hr 02/18/24 18:00 02/18/24 18:24 Maxipime 1 Gm/Ns 50 Ml IVPB Infused Q24H SUKI Infusion Albumin Human 50 mls @ 999 mls/hr 02/19/24 06:08 Albutein IVPB 03/20/24 06:07 Q10M PRN HYPOTENSION Insulin Aspart 4 - 8 units 02/18/24 08:00 02/19/24 07:36 Insulin Aspart (*Bkc) 100 Units/Ml SUB-Q Not Given TIDWM SUKI Protocol Levetiracetam 500 mg 02/17/24 23:40 02/18/24 20:14 Levetiracetam 500 Mg Tablet PO 500 mg Q12HR SUKI Administration Loperamide HCl 4 mg 02/17/24 23:38 Loperamide Hcl 2 Mg Capsule PO QID PRN loose stool Mirtazapine 30 mg 02/17/24 23:40 02/18/24 20:14 Mirtazapine 30 Mg Tablet PO 30 mg QHS SUKI Administration Pantoprazole Sodium 40 mg 02/18/24 09:00 02/18/24 08:54 Pantoprazole 40 Mg Tablet PO 40 mg QAM SUKI Administration Ropinirole HCl 0.5 mg 02/17/24 23:40 02/18/24 20:14 Ropinirole Hcl 0.5 Mg Tablet PO 0.5 mg Q12HR SUKI Administration Radiology Results: ITS Impressions Chest X-Ray 02/17/24 14:42 Impression: New bilateral airspace opacities versus nodules, as detailed above. This could reflect pneumonia versus neoplastic/metastatic disease. Chest CT recommended to further evaluate. Chest CTA 02/17/24 20:14 IMPRESSION: 1. Multiple nodules with the largest in the right upper lobe. Further evaluation with PET scan advised. 2. Left upper lobe density which may indicate pneumonia versus a mass. Further evaluation advised. 3. No pulmonary embolism. 4. 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 5. Sliding hiatus hernia 6. Atrophic kidneys. 7. Hepatomegaly 8. Prominent pancreatic duct and CBD. Labs Labs: Laboratory Tests 02/19/24 05:32 02/19/24 05:32 Calcium 8.6 Magnesium 1.5 L Total Bilirubin 0.6 AST 16 ALT 13 Alkaline Phosphatase 155 H Total Protein 7.0 Albumin 3.8 Microbiology 02/17/24 23:10 Blood Blood Culture - Preliminary 02/17/24 23:10 Blood Blood Culture - Preliminary
[2024-02-19] MEDS: SODIUM CHLORIDE 0.9% IV 1,000 ML 999 ML IV CONT (11:27)
[2024-02-19] MEDS: HEPARIN SODIUM 1,000 UNITS/ML VIAL 5000 UNITS (11:28)
[2024-02-19] MEDS: EPOETIN ALFA-EPBX 10,000 UNITS/ML VIAL 10000 UNITS IV PUSH (11:29)
--- NOTE | 2024-02-19 13:33 | PC.NURSE ---
Patient back from dialysis at this time.
[2024-02-19] MEDS: ESCITALOPRAM OXALATE 10 MG TABLET PO (13:41)
[2024-02-19] MEDS: DICYCLOMINE HCL 10 MG CAPSULE 20 MG PO ×2 (13:41→16:35)
[2024-02-19] MEDS: levETIRAcetam 500 MG TABLET PO ×2 (13:41→19:44)
[2024-02-19] MEDS: HEPARIN SODIUM 5,000 UNITS/ML VIAL 5000 UNITS SUB-Q (13:41)
[2024-02-19] MEDS: PANTOPRAZOLE 40 MG TABLET PO (13:41)
[2024-02-19] MEDS: rOPINIRole HCL 0.5 MG TABLET PO ×2 (13:41→19:44)
[2024-02-19] MEDS: ATORVASTATIN 40 MG TABLET PO (13:41)
[2024-02-19] MEDS: buPROPion HCL XL (24 HR) 150 MG TABCR PO (13:41)
[2024-02-19] MEDS: busPIRone HCL 10 MG TABLET PO ×2 (13:41→16:35)
--- NOTE | 2024-02-19 14:05 | PM.DS ---
DS: Admitting Diagnosis Discharge Date 02/18 Admitting Diagnosis sob,cough DS: Discharge Diagnosis Discharge Diagnosis (1) Pneumonia: Qualifiers: Laterality: left Lung location: upper lobe of lung Pneumonia type: due to unspecified organism Qualified Code(s): J18.9 - Pneumonia, unspecified organism Code(s): J18.9 - Pneumonia, unspecified organism Status: Acute (2) Multiple lung nodules on CT: Code(s): R91.8 - Other nonspecific abnormal finding of lung field Status: Acute (3) Type 2 diabetes mellitus with diabetic chronic kidney disease: Code(s): E11.22 - Type 2 diabetes mellitus with diabetic chronic kidney disease Status: Acute (4) Crohn's disease: Code(s): K50.90 - Crohn's disease, unspecified, without complications Status: Chronic (5) End-stage renal disease on hemodialysis: Code(s): N18.6 - End stage renal disease; Z99.2 - Dependence on renal dialysis Status: Acute DS: Summary Hospital Course Hospital Course: cough, shortness of breath Narrative retrieved from H/P: This is a 78-year-old female patient with a history of CAD s/p stent placement 10+ years ago, DM, Crohn's disease, ESRD on HD MWF, who presented to the ED with c/o central chest pain radiating into her back. Patient reported mild cough mild shortness of breath recently. She reports that the pain is intermittent and worsens with exertion. Pain has been present for 2 days. She went to dialysis today. Patient recently had her metoprolol stopped because of low blood pressure. She was able to complete full session of dialysis but noted her heart rate went up to [address] Joe recommended she come to the ER for evaluation. Workup shows normal troponins, normal white blood cell count and stable chronic anemia. Chemistry panel consistent with ESRD. Imaging showed left upper lobe pneumonia and concerning nodules in multiple lobes that might be malignancy. Patient was started on cefepime and doxycycline in the emergency department. She did receive a CTA of the chest to rule out PE so she will likely have to undergo hemodialysis again in the morning after contrast exposure. Nephrology was consulted by the emergency department. Review of patient's past medical history does include renal cell carcinoma. Discussed with pulmonology- Dr Barrios- will see and mehran burks today. Once antibiotics are completed and pneumonia treatment- pt is to f/u with pulm for further evaluation or nodules/mass. Pt had dialysis today- 02/18- toelrated it well. COugh is pretty much gone- pt denies sob, on RA- stable for discharge with PO antibiotics and close f/u with nephrology/pulm. Once she is seen per Dr Barrios, she is free to go. Status at Discharge Functional status at discharge: independent ambulation Overall status at discharge: patient is progressing back to baseline Time Spent with Patient Time attestation: Total time spent providing and/or coordinating discharge services: Time spent: Greater than 30 minutes Exam Narrative: GENERAL: Chronically ill appearing but in no acute distress. HEAD: Normocephalic, atraumatic. EYES: PERRLA and EOMI. NECK: Supple. No JVD CHEST: Faint rales noted in the left posterior lung field with good aeration. No respiratory distress. No wheezes or rhonchi HEART: Regular rate and rhythm. No murmur heard. Normal peripheral pulses. ABDOMEN: Soft, nontender, nondistended, normal active bowel sounds. EXTREMITIES: Normal range of motion. No edema. Left upper arm dialysis site intact. SKIN: Warm, dry, no rash. NEURO: Alert and oriented x3. No focal deficit. Moving all 4 limbs spontaneously PSYCH: Normal mood and affect. Const: General: comfortable DS: Data Data Completed and Pending Completed studies during hospitalization: chest CTA Labs on day of discharge: Labs from last 24 hours 02/19/24 02/19/24 02/18/24 07:16 05:32 20:43 WBC 9.5 RBC 3.23 L Hgb 9.9 L Hct 30.8 L MCV 95.4 MCH 30.7 MCHC 32.1 RDW 14.9 H Plt Count 223 MPV 9.0 Immature Gran % (Auto) 1.2 H Neut % (Auto) 69.2 Lymph % (Auto) 17.0 L Edmonson % (Auto) 7.3 Eos % (Auto) 5.1 H Baso % (Auto) 0.2 Lymph # (Auto) 1.61 Edmonson # (Auto) 0.7 H Eos # (Auto) 0.5 H Baso # (Auto) 0.0 Abs Immat Gran (auto) 0.11 H Absolute Neuts (auto) 6.5 Absolute Nucleated RBC 0.000 Nucleated RBC % 0.0 Sodium 141 Potassium 4.0 Chloride 103 Carbon Dioxide 24 Anion Gap 14 H BUN 44 H D Creatinine 8.50 H Estim Creat Clear Calc 5 Estimated GFR 5 L Glucose 114 H POC Capillary Glucose 117 H 276 H Calcium 8.6 Magnesium 1.5 L Total Bilirubin 0.6 AST 16 ALT 13 Alkaline Phosphatase 155 H Total Protein 7.0 Albumin 3.8 02/18/24 16:58 WBC RBC Hgb Hct MCV MCH MCHC RDW Plt Count MPV Immature Gran % (Auto) Neut % (Auto) Lymph % (Auto) Edmonson % (Auto) Eos % (Auto) Baso % (Auto) Lymph # (Auto) Edmonson # (Auto) Eos # (Auto) Baso # (Auto) Abs Immat Gran (auto) Absolute Neuts (auto) Absolute Nucleated RBC Nucleated RBC % Sodium Potassium Chloride Carbon Dioxide Anion Gap BUN Creatinine Estim Creat Clear Calc Estimated GFR Glucose POC Capillary Glucose 152 H Calcium Magnesium Total Bilirubin AST ALT Alkaline Phosphatase Total Protein Albumin Preliminary micro results at discharge 02/17/24 23:10 Blood Culture - Preliminary Blood 02/17/24 23:10 Blood Culture - Preliminary Blood Discharge Plan Discharge Attending physician on discharge: Valentín Robins Consulting providers: Marcelle Howard; Barbara Barrios Discharging Clinician: Merly Bruno Patient Disposition: Home, Self-Care Activity: july shower Diet: as tolerated and renal Discharge Instructions: you were admitted for pneumonia. You were treated with IV antibiotics and switched to orals. Please continue taking them until the course is finished. As we discussed, Dr Barrios will see you prior to your discharge and you will follow up with her outpt. Patient Instructions: Antibiotic Form Stand Alone Forms: General Discharge Information Follow-up/Referrals: Barbara Barrios MD [Physician] - 2 Weeks Marcelle Howard MD [Physician] - 2 Weeks Justen Singer MD [Primary Care Provider] - 2 Weeks Discharge Medications: New doxycycline monohydrate 100 mg capsule 100 mg PO BID Qty: 10 0RF Continued dicyclomine 20 mg tablet 20 mg PO TID Qty: 90 5RF loperamide 2 mg tablet 4 mg PO QID PRN (Reason: loose stool) Qty: 100 5RF Cholestyramine Light 4 gram powder 4 g PO TID Qty: 239.4 5RF Rx Instructions: administer w/meal; avoid other meds within 1hr before or 4-6hr after dose clobetasol 0.05 % cream 1 applic topical BID Qty: 30 0RF escitalopram oxalate 10 mg tablet 10 mg PO DAILY Qty: 30 5RF cyclobenzaprine 5 mg tablet 5 mg PO TID PRN (Reason: muscle spasm) Qty: 10 0RF atorvastatin 40 mg tablet 40 mg PO DAILY Qty: 90 2RF bupropion HCl 150 mg tablet extended release 24 hr 150 mg PO QAM Qty: 90 1RF buspirone 10 mg tablet 10 mg PO BID Qty: 180 1RF diclofenac sodium [Voltaren Arthritis Pain] 1 % gel 2 g topical BID PRN (Reason: knee pain) Qty: 200 5RF Rx Instructions: apply to single elbow, wrist or hand; for hand includes palm/fingers/back of hand ergocalciferol (vitamin D2) 1,250 mcg (50,000 unit) capsule 50,000 mcg PO WEEKLY Qty: 4 5RF levetiracetam 500 mg tablet 500 mg PO Q12H Qty: 180 1RF mirtazapine 30 mg tablet 30 mg PO QHS Qty: 90 1RF pantoprazole 40 mg tablet,delayed release (DR/EC) 40 mg PO QAM Qty: 90 1RF ropinirole 0.5 mg tablet 0.5 mg PO BID Qty: 180 1RF megestrol 400 mg/10 mL (10 mL) suspension 200 mg PO BID Qty: 300 3RF hydrocodone-acetaminophen 5-325 mg tablet 1 tablet PO QID PRN (Reason: pain) Qty: 120 0RF Date of admission: 02/18/24 07:57 Primary Care Provider: Justen Singer Admitting Provider: Valentín Robins Attending physician on admission: Valentín Robins Condition: Serious Quality VTE Prophylaxis VTE prophylaxis: pharmacologic ordered (heparin SQ) Hospitalist MIPS Heart Failure (Exclusion) Patient has history of Heart Transplant or Left Ventricular Assistive Device?: No IF YES, STOP HERE Heart Failure (Qualifier) Patient has current or prior documentation of LVEF less than or equal to 40%, or mod/servere depressed LVSF?: No IF NO, STOP HERE
[2024-02-19] MEDS: LOPERAMIDE HCL 2 MG CAPSULE 4 MG PO (16:35)
[2024-02-19 16:39] LABS: Glucose Point of Care 274 mg/dl (65-105)
[2024-02-19] MEDS: MIRTAZAPINE 30 MG TABLET PO (19:44)
== END 2024-02-19 19:58 | DRG 193 ==
LOC: ANHED 16:48 → ANH3MEDSUR 21:36
PROVIDERS: Emergency Medicine; Internal Medicine Nephrology; Nurse Practitioner; Physician Assistant; Admitting Provider Internal Medicine; Emergency Provider Preventive Medicine Aerospace Medicine; PCP Family Medicine Adolescent Medicine; Visit Provider Nurse Practitioner
DX: J18.9 Pneumonia, unspecified organism (principal); N18.6 End stage renal disease; K50.90 Crohn's disease, unspecified, without complications; R91.8 Other nonspecific abnormal finding of lung field; E11.22 Type 2 diabetes mellitus with diabetic chronic kidney disease; I25.10 Atherosclerotic heart disease of native coronary artery without angina pectoris; E11.43 Type 2 diabetes mellitus with diabetic autonomic (poly)neuropathy; E66.9 Obesity, unspecified; D63.8 Anemia in other chronic diseases classified elsewhere; K21.9 Gastro-esophageal reflux disease without esophagitis; E03.9 Hypothyroidism, unspecified; G47.33 Obstructive sleep apnea (adult) (pediatric); I73.9 Peripheral vascular disease, unspecified; G25.81 Restless legs syndrome; Z99.2 Dependence on renal dialysis; Z95.5 Presence of coronary angioplasty implant and graft; Z86.16 Personal history of COVID-19; Z68.30 Body mass index [BMI] 30.0-30.9, adult; Z85.528 Personal history of other malignant neoplasm of kidney; Z90.49 Acquired absence of other specified parts of digestive tract; Z90.710 Acquired absence of both cervix and uterus; Z66 Do not resuscitate
CPT/HCPCS: 36415; 71046; 71275; 80053; 82948; 83036; 83690; 83735; 84484; 85025; 85380; 85610; 85730; 86706; 87040; 87340; 87637; 87641; 93005; 96365; 99285; A9270; G0257; G0378; J0692; J1644; J1815; J7030; P9047; Q5105; Q9967

== ENCOUNTER 2024-03-01 10:41 | Outpatient (CLI) | payer MEDICARE, SELFPAY ==
--- NOTE | ~2024-03-01 | PE_ITS ---
EXAMINATION: PET skull to mid thigh DATE: 03/01/2024 13:00 INDICATION: Multiple pulmonary nodules. TECHNIQUE: Blood glucose level was 114 mg/dL. 9.927 mCi of 18-fluorodeoxyglucose (18-FDG) was adminis tered i.v. Low dose computed tomography (CT) images were acquired from the base of the brain to the p roximal thighs for attenuation correction and anatomic localization. Automated exposure control was e mployed. Dose-length product (DLP) was 1029 mGy-cm. Positron emission tomography (PET) images were ac quired in the same distribution. COMPARISON: Chest CT 02/17/2024, head CT 10/05/2023, CT abdomen and pelvis 07/21/22, 02/02/20 FINDINGS: Head/neck: There are no pathologically enlarged lymph nodes. 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 Chest: There is a 2.1 cm nodule in right lung upper lobe with maximum SUV of 8.3. There is a 1.5 cm n odule in right lung lower lobe without increased activity that measured 2.0 cm on 02/02/20, likely be nign. There is a 6 mm nodule in right lower lobe without increased activity that measured 10 mm on , likely benign. There are airspace opacities with air bronchograms and increased activity in l eft upper lobe, consistent with pneumonia. No pleural effusion. Cardiomegaly is noted. There are aliza nary artery calcifications. No pericardial effusion. There is a moderate-sized sliding hernia. Abdomen/pelvis/proximal thighs: The liver and spleen are normal. There are changes of cholecystectomy . The pancreas and adrenal glands are normal. There is moderate atrophy of the kidneys. There are no dilated loops of bowel. There are no pathologically enlarged lymph nodes. There is no free intraperit lucio fluid. There are widespread arterial calcifications. There is a healing fracture of right infer ior pubic ramus. IMPRESSION: 1. 2.1 cm nodule in right lung upper lobe with increased activity, consistent primary bronchogenic ca rcinoma. CT-guided biopsy is recommended. 2. Left upper lobe pneumonia, stable from 02/17/24. Reviewed, dictated and finalized at location [facility] [employer] IMPRESSION: 1. 2.1 cm nodule in right lung upper lobe with increased activity, consistent p rimary bronchogenic carcinoma. CT-guided biopsy is recommended. 2. Left upper lobe pneumonia, stable from 02/17/24.
[2024-03-01 11:16] LABS: Glucose Point of Care 114 mg/dl (65-105)
== END 2024-03-01 10:42 | disposition home or self-care (01) ==
PROVIDERS: PCP Family Medicine Adolescent Medicine; Visit Provider Family Medicine Adolescent Medicine
DX: R91.1 Solitary pulmonary nodule (principal); J18.1 Lobar pneumonia, unspecified organism
CPT/HCPCS: 78815; A9552

== ENCOUNTER 2024-03-11 09:00 | Inpatient (IN) | payer MEDICARE, SELFPAY ==
[2024-03-11] VITALS (36 sets, daily range): BP systolic 116–191; BP diastolic 46–98; PULSE 81–108; RESP 13–20; TEMP 36.4–37; O2SAT 92–100; BMI 28.5
--- NOTE | ~2024-03-11 | XR_ITS ---
EXAMINATION: XR chest 1V portable DATE: 03/11/2024 09:35 INDICATION: Dyspnea. Cough. TECHNIQUE: A single frontal view of the chest was obtained. COMPARISON: Chest 2 views 02/17/2024, chest CT 02/17/2024 FINDINGS: There are airspace opacities in the mid and lower lung zones. There is a nodule in right up per lobe. No pleural effusion or pneumothorax. Cardiomegaly is noted. IMPRESSION: 1. Airspace opacities in the mid and lower lung zones, consistent with pneumonia. 2. Nodule in right lung upper lobe, consistent with primary bronchogenic carcinoma. 3. Cardiomegaly. Reviewed, dictated and finalized at location A. 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 Airspace opacities in the mid and lower lung zones, consistent with pneumoni a. 2. Nodule in right lung upper lobe, consistent with primary bronchogenic carcin jose. 3. Cardiomegaly.
--- NOTE | 2024-03-11 09:07 | ECG_ITS ---
Test Date: 2024-03-11 09:25:42 Measurements Intervals Poth Rate: 85 P: -9 MD: 220 QRS: -49 QRSD: 76 T: 30 QT: 361 QTc: 430 Interpretive Statements SINUS RHYTHM WITH FIRST DEGREE AV BLOCK PATTERN CONSISTENT WITH PULMONARY DISEASE LEFT ANTERIOR FASCICULAR BLOCK [QRS AXIS <= -45, QR IN I, RS IN II] ABNORMAL ECG Electronically Signed On 03-11-2024 17:21:14 [employer] SU[employer] SPECIALIST by Michael Enciso M.D.
[2024-03-11 10:00] LABS: Basophils Percent Auto 0.4 % (0.2-1.2); Eosinophils Absolute Auto 0.4 K/mm3 (0-0.3); Eosinophils Percent Auto 4.6 % (0-4.4); Hematocrit 32.1 % (37.0-47.0); Hemoglobin 10.2 g/dL (12.0-15.0); Immature Granulocyte Percent A 1.3 % (0-0.5); Lymphocytes Absolute Auto 1.06 K/mm3 (0.9-3.2); Lymphocytes Percent Auto 13.8 % (18.3-44.2); Mean Corpuscular HGB Conc 31.8 g/dl (32-36); Mean Corpuscular Hemoglobin 31.3 pg (26-34); Mean Corpuscular Volume 98.5 fl (80-100); Mean Platelet Volume 8.7 fl (7.4-10.4); Monocytes Absolute Auto 0.9 K/mm3 (0.1-0.6); Monocytes Percent Auto 11.1 % (2.6-8.5); Neutrophils Absolute Auto 5.3 K/mm3 (1.3-6.7); Neutrophils Percent Auto 68.8 % (45.5-73.1); Platelet Count Result 212 k/mm3 (150-375); Red Blood Count 3.26 M/mm3 (4.2-5.4); Red Cell Distribution Width 15.9 % (11.5-14.5); White Blood Count 7.7 K/mm3 (4.5-10.0)
[2024-03-11 10:08] LABS: Influenza A QL RT-PCR Negative (Negative); Influenza B QL RT-PCR Negative (Negative); RSV RNA, RT-PCR Negative (Negative); SARS-CoV-2 RNA PCR Negative (Negative)
[2024-03-11 10:13] LABS: Alanine Aminotransferase 19 U/L (6-35); Albumin Level 3.5 g/dL (3.5-5.1); Alkaline Phosphatase 146 U/L (38-126); Anion Gap 10 mmol/L (4-12); Aspartate Amino Transferase 23 U/L (14-36); Bilirubin,Total 0.5 mg/dL (0.2-1.3); Blood Urea Nitrogen 66 mg/dL (7-17); Calcium 8.6 mg/dL (8.4-10.2); Carbon Dioxide 25 mmol/L (22-30); Chloride 107 mmol/L (98-107); Estimated CRCL calculation 5 ml/min; Estimated Glomerular Filt Rate 4; Glucose 122 mg/dL (65-110); Potassium 4.8 mmol/L (3.4-5.0); Sodium 142 mmol/L (137-145)
--- NOTE | 2024-03-11 12:56 | ED_ITS ---
HPI - SOB/Dyspnea General Chief Complaint: Shortness of Breath/Dyspnea Stated Complaint: SOB Time Seen by Provider: 03/11/24 12:05 Source: patient and old records reviewed Mode of arrival: wheelchair Limitations: no limitations History of Present Illness HPI Narrative: 78-year-old with a history of hypertension, Crohn's, CAD, ESRD on hemodialysis Thursday here with complaints of cough and shortness of breath for past several weeks. Patient states that she has been on 2 rounds of antibiotics with very minimal relief. She denies any chest pain or fever or chills. She states that she could not get her dialysis today because she was short of breath and she was coughing. MD elicited complaint: shortness of breath and cough Pertinent past history: other (recent diagnosis of lung mass) Onset (ago): week(s) (2) Timing: constant Severity: moderate Exacerbating factors: nothing Relieving factors: nothing Associated symptoms: denies other symptoms Treatment prior to arrival: none Related Data Allergies Allergy/AdvReac Type Severity Reaction Status Date / Time cortisone Allergy Intermediate Dyspnea / Verified 02/10/24 13:51 SOB Penicillins Allergy Intermediate Dyspnea / Verified 02/10/24 13:51 SOB ceftriaxone (From Rocephin) Allergy Difficulty Verified 02/10/24 13:51 Breathing Review of Systems 2 Review of Systems: All systems reviewed & are unremarkable except as noted in HPI and below Constitutional: Constitutional: Reports no additional constitutional complaints Eyes: Eyes: Reports no additional eye complaints ENT: Reports system reviewed and no additional complaints, except as documented Cardiovascular: Cardiovascular: Reports no additional cardiovascular complaints Respiratory: Respiratory: Reports as per HPI Gastrointestinal: Gastrointestinal: Reports no additional gastrointestinal complaints Musculoskeletal: Musculoskeletal: Reports no additional musculoskeletal complaints Neurologic: Reports system reviewed and no additional complaints, except as documented Psychiatric: Psychiatric: Reports no additional psychiatric complaints Endocrine: Endocrine: Reports no additional endocrine complaints Hematologic/Lymphatic: Hematologic/Lymphatic: Reports no additional hematologic/lymphatic complaints [facility] Past Medical History Medical History Acute respiratory failure Anemia of chronic disease Callus of foot Coronary artery disease History of stent x3. COVID-19 virus infection Crohn's disease Diet-controlled diabetes mellitus A1c was 7.0 in 10/2018 and 4.8 in 01/2020. End-stage renal disease on hemodialysis Erythropoietin deficiency anemia Gastroesophageal reflux disease History of kidney stones Hypothyroidism Normal colonoscopy (08/2019) Obstructive sleep apnea No longer using CPAP after 40 lb weight loss. Osteomyelitis of toe of left foot Pericardial effusion (01/2020) Small pericardial effusion on echocardiogram, felt to be related to uremia. Peripheral autonomic neuropathy due to diabetes mellitus Peripheral vascular disease Peritonitis (01/2020) Pneumonia Renal cell carcinoma (2004) Renal osteodystrophy Restless leg syndrome Shingles (1991) Wound of right foot Surgical History Surgical History Amputation toe Left 2nd toe. History of appendectomy History of bilateral carpal tunnel release History of cardiac catheterization With stent x3. History of cholecystectomy History of colonoscopy History of complete ray amputation of second toe of left foot History of complete ray amputation of second toe of right foot History of cystoscopy With ureteral stents for kidney stones. History of foot surgery Repair of left foot fracture with pinning. History of hysterectomy (1976) With cystocele and rectocele repairs. History of partial nephrectomy (2004) Left partial nephrectomy for kidney cancer. History of tonsillectomy Family History Family History Father Renal cell carcinoma Acute myocardial infarction Cerebrovascular accident Colon polyp Heart disease Hypertension Mother Lung cancer Acute myocardial infarction Cerebrovascular accident Depression Heart disease Hypertension Son Asthma Social History Social History (Updated 02/18/24 @ 03:06 by Damion Maynard APRN) Social History: Surrogate medical decision maker: Dong Maher, son. Code status: Modified Code, No Intubation Smoking packs per day: 1 Smoking cigarettes per day: 20.0 Years smoked: 20 Smoking pack-years: 20.00 Smoking status: Former smoker Tobacco type: cigarettes Second hand tobacco smoke exposure: No Alcohol intake: never Substance use: never Do You Feel Safe in your Home?: Yes Lack of Transportation: No Lack of Food: Never True Current Housing: I Have Housing Concerned About Future Housing: No Difficulty Paying Gas/Electric Bills: No Difficulty Paying for Meds: No Currently Unemployed: No Education: High School Diploma/GED Difficulty w/ Childcare or Family Care: No Living arrangements: alone Additional living arrangements comments: , lives in [place]. 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 Spiritual care concerns: No Agree to blood products: Yes Exam 2 Narrative: GENERAL: ill -appearing, well-nourished, and in no acute distress. HEAD: Normocephalic, atraumatic. EYES: PERRLA and EOMI. ENT: Nares clear, no rhinorrhea or epistaxis. Mucous membranes moist. NECK: Supple. CHEST: Clear to auscultation. No respiratory distress. HEART: Regular rate and rhythm. No murmur heard. Normal peripheral pulses. ABDOMEN: Soft, nontender, nondistended, normal active bowel sounds. EXTREMITIES: Normal range of motion. No edema. SKIN: Warm, dry, no rash. NEURO: No focal deficits. Alert and oriented x3. PSYCH: Normal mood and affect. Course Course Emergency Course: Informed patient about her lab work, chest x-ray and EKG findings. I discussed with Dr. Joe recommended patient be admitted and be dialyzed. Vital Signs Vital signs: Vital Signs Temperature 36.4 C 03/11/24 09:03 Pulse Rate 89 03/11/24 09:03 Respiratory Rate 20 03/11/24 09:03 Blood Pressure 148/69 H 03/11/24 09:03 Pulse Oximetry 100 03/11/24 09:03 Temperature 36.4 C 03/11/24 09:03 Pulse Rate 92 03/11/24 10:05 Respiratory Rate 19 03/11/24 10:05 Blood Pressure 116/98 H 03/11/24 09:16 Pulse Oximetry 99 03/11/24 11:38 Oxygen Delivery Room Air 03/11/24 11:38 MDM - SOB/Dyspnea Differential Diagnosis Differential diagnosis: Likely acute exacerbation of chronic obstructive airways disease, community acquired pneumonia and other (lung mass) Medical Records Attestation: I reviewed the patient's medical records. Lab Data Attestation: I reviewed the patient's lab results. 03/11/24 09:51 03/11/24 09:50 Labs: Lab Results 03/11/24 03/11/24 03/11/24 Range/Units 09:26 09:50 09:51 WBC 7.7 (4.5-10.0) K/mm3 RBC 3.26 L (4.2-5.4) M/mm3 Hgb 10.2 L (12.0-15.0) g/dL Hct 32.1 L (37.0-47.0) % MCV 98.5 (80-100) fl MCH 31.3 (26-34) pg MCHC 31.8 L (32-36) g/dl RDW 15.9 H (11.5-14.5) % Plt Count 212 (150-375) k/mm3 MPV 8.7 (7.4-10.4) fl Immature Gran % (Auto) 1.3 H (0-0.5) % Neut % (Auto) 68.8 (45.5-73.1) % Lymph % (Auto) 13.8 L (18.3-44.2) % Callahan % (Auto) 11.1 H (2.6-8.5) % Eos % (Auto) 4.6 H (0-4.4) % Baso % (Auto) 0.4 (0.2-1.2) % Lymph # (Auto) 1.06 (0.9-3.2) K/mm3 Callahan # (Auto) 0.9 H (0.1-0.6) K/mm3 Eos # (Auto) 0.4 H (0-0.3) K/mm3 Baso # (Auto) 0.0 (0.0-0.1) K/mm3 Abs Immat Gran (auto) 0.10 H (0.00-0.031) K/mm3 Absolute Neuts (auto) 5.3 (1.3-6.7) K/mm3 Absolute Nucleated RBC 0.000 (0.0-0.012) K/mm3 Nucleated RBC % 0.0 (0.0-0.2) % Sodium 142 (137-145) mmol/L Potassium 4.8 (3.4-5.0) mmol/L Chloride 107 (98-107) mmol/L Carbon Dioxide 25 (22-30) mmol/L Anion Gap 10 (4-12) mmol/L BUN 66 H D (7-17) mg/dL Creatinine 9.00 H (0.7-1.0) mg/dL Estim Creat Clear Calc 5 ml/min Estimated GFR 4 L (59 - ) Glucose 122 H (65-110) mg/dL Calcium 8.6 (8.4-10.2) mg/dL Total Bilirubin 0.5 (0.2-1.3) mg/dL AST 23 (14-36) U/L ALT 19 (6-35) U/L Alkaline Phosphatase 146 H (38-126) U/L Total Protein 6.0 L (6.3-8.2) g/dL Albumin 3.5 (3.5-5.1) g/dL Influenza A (RT-PCR) Negative (Negative) Influenza B (RT-PCR) Negative (Negative) RSV (RT-PCR) Negative (Negative) SARS-CoV-2 RNA (RT-PCR) Negative (Negative) Imaging Data Attestation: I personally reviewed and interpreted this imaging study as follows: Radiologist's impression: ITS Impressions Chest X-Ray 03/11/24 09:36 IMPRESSION: 1. Airspace opacities in the mid and lower lung zones, consistent with pneumonia. 2. Nodule in right lung upper lobe, consistent with primary bronchogenic carcinoma. 3. Cardiomegaly. ECG Data EKG #1: EKG Interpretation: normal rate (85), sinus rhythm, no ST changes, normal QRS, normal QT and NL axis Discharge Plan Discharge Clinical Impression: Shortness of breath, ESRD on dialysis Fluid overload Qualifiers: Hypervolemia type: other Qualified Code(s): E87.79 - Other fluid overload Patient Disposition: Still a Patient Condition: Stable Patient Language: Frisian Prescriptions: No Action dicyclomine 20 mg tablet 20 mg PO TID Qty: 90 5RF loperamide 2 mg tablet 4 mg PO QID PRN (Reason: loose stool) Qty: 100 5RF Cholestyramine Light 4 gram powder 4 g PO TID Qty: 239.4 5RF Rx Instructions: administer w/meal; avoid other meds within 1hr before or 4-6hr after dose clobetasol 0.05 % cream 1 applic topical BID Qty: 30 0RF escitalopram oxalate 10 mg tablet 10 mg PO DAILY Qty: 30 5RF cyclobenzaprine 5 mg tablet 5 mg PO TID PRN (Reason: muscle spasm) Qty: 10 0RF atorvastatin 40 mg tablet 40 mg PO DAILY Qty: 90 2RF bupropion HCl 150 mg tablet extended release 24 hr 150 mg PO QAM Qty: 90 1RF buspirone 10 mg tablet 10 mg PO BID Qty: 180 1RF diclofenac sodium [Voltaren Arthritis Pain] 1 % gel 2 g topical BID PRN (Reason: knee pain) Qty: 200 5RF Rx Instructions: apply to single elbow, wrist or hand; for hand includes palm/fingers/back of hand ergocalciferol (vitamin D2) 1,250 mcg (50,000 unit) capsule 50,000 mcg PO WEEKLY Qty: 4 5RF levetiracetam 500 mg tablet 500 mg PO Q12H Qty: 180 1RF mirtazapine 30 mg tablet 30 mg PO QHS Qty: 90 1RF pantoprazole 40 mg tablet,delayed release (DR/EC) 40 mg PO QAM Qty: 90 1RF ropinirole 0.5 mg tablet 0.5 mg PO BID Qty: 180 1RF megestrol 400 mg/10 mL (10 mL) suspension 200 mg PO BID Qty: 300 3RF hydrocodone-acetaminophen 5-325 mg tablet 1 tablet PO QID PRN (Reason: pain) Qty: 120 0RF levofloxacin 500 mg tablet 500 mg PO DAILY Qty: 10 0RF Follow-up/Referrals: Justen Singer MD [Primary Care Provider] - Time of Disposition: 13:11
[2024-03-11] MEDS: SODIUM CHLORIDE 0.9% IV 1,000 ML 150 ML IV CONT (13:21)
--- NOTE | 2024-03-11 13:38 | PM.IMHP ---
H&P: HPI History of Present Illness Date/Time: 03/11/24 13:38 Chief Complaint: Shortness of breath, recently treated for pneumonia Narrative: 78-year-old female with a past medical history of end-stage renal disease on hemodialysis Thursday, anemia of chronic disease with baseline hemoglobin around 10, coronary artery disease status post stent placement over 10 years ago, Crohn's disease, type 2 diabetes mellitus, GERD and restless leg syndrome among other comorbidities who presented to the ER via EMS from [facility] due to shortness of breath with recent treatment for pneumonia. She is concerned because her cough has been persistent and has been getting worse. She has also noticed helped wheezing over the last several days. She states that she usually gets hemodialysis Thursday. She had not had dialysis since March 08. She reports that her usual dry weight is 78 lb and she is currently up to 91 lb. She had not noticed any increased lower extremity swelling but on exam she did have some 1+ pitting edema. Increased abdominal distension recently. She does have Crohn's and has chronic diarrhea. She reports that she usually has enough fluid losses with her Crohn's disease and stools that she not require much fluid removal when she goes to dialysis. she has noted that instead of only urinating every couple of days she is actually urinated 2 or 3 times a day for the last several days. She denies any dysuria or urinary frequency. She has not had any recent fevers or chills. She reports almost immediate improvement her breathing after starting dialysis. She also had subjective improvement in her breathing with nebulizer treatment that was being administered during dialysis. She denies any chest pain or palpitations. The patient reports that she recently was diagnosed with a pulmonary nodule. She had a PET scan on March 01 which demonstrated 2.1 cm nodule the right upper lobe increased activity consistent with primary bronchogenic carcinoma. CT-guided biopsy has been recommended with patient reports that she has been coughing consistently since her recent hospitalization and has not had improvement in her cough long enough to have her biopsy performed. She is extremely concerned about this nodule given that her mother of lung cancer. Patient was seen and examined while on dialysis. She has been on dialysis since 2019. She sees Dr. Joe and Dr. Howard. Review of Systems Review of Systems: 12 systems were reviewed with pertinent positives and negatives per HPI. Except as documented in the HPI, all other systems were reviewed and are negative. [facility] Past Medical History Medical History (Updated 03/11/24 @ 14:01 by Gem Bradley DO) Diastolic dysfunction Echocardiogram October 2022: EF greater than 70% mildly increased left ventricular wall thickness, grade 1 diastolic dysfunction, patent foramen ovale visualized on agitated saline mild mitral valve regurgitation, mild tricuspid valve regurgitation mild pulmonary hypertension with RVSP of 37 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 COVID-19 virus infection Renal osteodystrophy Erythropoietin deficiency anemia End-stage renal disease on hemodialysis Thursday Normal colonoscopy (08/2019) Tushar (1991) Gastroesophageal reflux disease Restless leg syndrome Renal cell carcinoma (2004) Obstructive sleep apnea No longer using CPAP after 40 lb weight loss. Coronary artery disease History of stent x3. Anemia of chronic disease Pericardial effusion (01/2020) Small pericardial effusion on echocardiogram, felt to be related to uremia. Hypothyroidism Peripheral vascular disease Crohn's disease History of kidney stones Peritonitis (01/2020) Surgical History Surgical History Amputation toe Left 2nd toe. History of complete ray amputation of second toe of left foot History of complete ray amputation of second toe of right foot History of cholecystectomy History of appendectomy History of foot surgery Repair of left foot fracture with pinning. History of partial nephrectomy (2004) Left partial nephrectomy for kidney cancer. History of tonsillectomy History of bilateral carpal tunnel release History of hysterectomy (1976) With cystocele and rectocele repairs. History of cardiac catheterization With stent x3. History of cystoscopy With ureteral stents for kidney stones. History of colonoscopy Family History Family History Father Renal cell carcinoma Acute myocardial infarction Cerebrovascular accident Colon polyp Heart disease Hypertension Mother Lung cancer Acute myocardial infarction Cerebrovascular accident Depression Heart disease Hypertension Son Asthma Social History Social History (Updated 03/11/24 @ 16:54 by Gem Bradley DO) Social History: Patient is retired. 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 She had 1 son who at 50 years old heart attack. She has a 2nd son who is still living and he was her surrogate decision maker. To smoke 1 pack of cigarettes per day for about 30 years. She quit smoking in 1995. She denies any alcohol use or illicit substance use. She is living in [facility]. Surrogate medical decision maker: Dong Maher, son. Code status: DNR/DNI Smoking packs per day: 1 Smoking cigarettes per day: 20.0 Years smoked: 30 Smoking pack-years: 30.00 Smoking status: Former smoker Tobacco type: cigarettes Second hand tobacco smoke exposure: No Alcohol intake: never Substance use: never Do You Feel Safe in your Home?: Yes Lack of Transportation: No Lack of Food: Never True Current Housing: I Have Housing Concerned About Future Housing: No Difficulty Paying Gas/Electric Bills: No Difficulty Paying for Meds: No Currently Unemployed: No Education: High School Diploma/GED Difficulty w/ Childcare or Family Care: No Living arrangements: alone Additional living arrangements comments: , lives in [place]. 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 Spiritual care concerns: No Agree to blood products: Yes Meds Home Medications and Allergies Home Medications ?Medication ?Instructions ?Recorded ?Confirmed ?Type atorvastatin 40 mg tablet 40 mg PO DAILY #90 tabs 03/11/23 02/17/24 Rx bupropion HCl 150 mg 24 hr tablet, 150 mg PO QAM #90 tabs 03/11/23 02/17/24 Rx extended release buspirone 10 mg tablet 10 mg PO BID #180 tabs 03/11/23 02/17/24 Rx diclofenac sodium 1 % topical gel 2 g topical BID PRN knee pain #200 03/11/23 02/17/24 Rx (Voltaren Arthritis Pain) grams ergocalciferol (vitamin D2) 1,250 50,000 mcg (40 x 1,250 mcg (50,000 03/11/23 02/17/24 Rx mcg (50,000 unit) capsule unit)) PO WEEKLY #4 caps levetiracetam 500 mg tablet 500 mg PO Q12H #180 tabs 03/11/23 02/17/24 Rx mirtazapine 30 mg tablet 30 mg PO QHS #90 tabs 03/11/23 02/17/24 Rx pantoprazole 40 mg tablet,delayed 40 mg PO QAM #90 tabs 03/11/23 02/17/24 Rx release ropinirole 0.5 mg tablet 0.5 mg PO BID #180 tabs 03/11/23 02/17/24 Rx cyclobenzaprine 5 mg tablet 5 mg PO TID PRN muscle spasm #10 06/03/23 02/17/24 Rx tabs escitalopram oxalate 10 mg tablet 10 mg PO DAILY #30 tabs 06/17/23 02/17/24 Rx dicyclomine 20 mg tablet 20 mg PO TID #90 tabs 08/05/23 02/17/24 Rx megestrol 400 mg/10 mL (10 mL) 200 mg (5 mL) PO BID #300 mL 08/27/23 02/17/24 Rx oral suspension cholestyramine-aspartame 4 gram 4 g PO TID #239.4 grams 02/10/24 02/17/24 Rx oral powder (Cholestyramine Light) clobetasol 0.05 % topical cream 1 applic topical BID #30 grams 02/10/24 02/17/24 Rx loperamide 2 mg tablet 4 mg (2 x 2 mg) PO QID PRN loose 02/10/24 02/17/24 Rx stool #100 tabs hydrocodone 5 mg-acetaminophen 325 1 tablet PO QID PRN pain #120 tabs 02/29/24 Rx mg tablet levofloxacin 500 mg tablet 500 mg PO DAILY #10 tabs 03/10/24 Rx Allergies Allergy/AdvReac Type Severity Reaction Status Date / Time cortisone Allergy Intermediate Dyspnea / Verified 02/10/24 13:51 SOB Penicillins Allergy Intermediate Dyspnea / Verified 02/10/24 13:51 SOB ceftriaxone (From Rocephin) Allergy Difficulty Verified 02/10/24 13:51 Breathing Vital Signs Vital Signs - 24 hr 03/11/24 09:03 03/11/24 09:11 03/11/24 09:15 Temperature 97.6 F Pulse Rate 89 88 88 Respiratory Rate 20 15 17 Blood Pressure 148/69 H Pulse Oximetry 100 Oxygen Delivery 03/11/24 09:16 03/11/24 09:44 03/11/24 09:45 Temperature Pulse Rate 89 88 Respiratory Rate 19 16 13 Blood Pressure 116/98 H Pulse Oximetry 97 100 Oxygen Delivery 03/11/24 10:05 03/11/24 11:13 03/11/24 11:30 Temperature Pulse Rate 92 81 85 Respiratory Rate 19 15 18 Blood Pressure Pulse Oximetry Oxygen Delivery 03/11/24 11:38 03/11/24 12:04 03/11/24 12:48 Temperature Pulse Rate 87 85 Respiratory Rate 18 13 Blood Pressure Pulse Oximetry 99 99 Oxygen Delivery Room Air Exam Narrative: wt 75kg BMI 28.4 Const: Other: Your stated age, chronically ill-appearing, lying in ER stretcher with head of bed at 30? HENMT: Other: Is normocephalic atraumatic, mucous membranes are tacky, no oral pharyngeal erythema Eyes: Other: Pupils are equal and reactive, positive conjunctival pallor, no scleral icterus Neck: Other: No JVD, no thyromegaly Resp: Other: Diffuse wheezing bilateral lung, crackles noted throughout, mild tachypnea, no accessory muscle use Cardio: Other: Mildly tachycardic, undergoing nebulizer treatment at the time of evaluation, 2+ right radial, equal pulse palpable pedal pulses bilateral GI: Other: Distended, moderately firm, nontender, positive bowel sounds Skin: Other: Generalized pallor, non jaundice, chronic skin changes to bilateral lower extremities Neuro: Other: Alert orient x4, speech is clear, no facial asymmetry, no localizing neurologic deficits noted during the course of conversation Extrem: Other: 1+ pitting edema at the ankles, AV fistula in the left upper arm not evaluated as the patient was actively on dialysis, otherwise moves all extremities equally Psych: Other: Appropriate mood and affect, pleasant and cooperative, appropriate judgment and insight H&P: Results Labs Labs: Laboratory Tests 03/11/24 09:51 03/11/24 09:50 03/11/24 03/11/24 03/11/24 09:26 09:50 09:51 WBC 7.7 RBC 3.26 L Hgb 10.2 L Hct 32.1 L MCV 98.5 MCH 31.3 MCHC 31.8 L RDW 15.9 H Plt Count 212 MPV 8.7 Immature Gran % (Auto) 1.3 H Neut % (Auto) 68.8 Lymph % (Auto) 13.8 L [place] % (Auto) 11.1 H Eos % (Auto) 4.6 H Baso % (Auto) 0.4 Lymph # (Auto) 1.06 [place] # (Auto) 0.9 H Eos # (Auto) 0.4 H Baso # (Auto) 0.0 Abs Immat Gran (auto) 0.10 H Absolute Neuts (auto) 5.3 Absolute Nucleated RBC 0.000 Nucleated RBC % 0.0 Sodium 142 Potassium 4.8 Chloride 107 Carbon Dioxide 25 Anion Gap 10 BUN 66 H D Creatinine 9.00 H Estim Creat Clear Calc 5 Estimated GFR 4 L Glucose 122 H Calcium 8.6 Total Bilirubin 0.5 AST 23 ALT 19 Alkaline Phosphatase 146 H Total Protein 6.0 L Albumin 3.5 Procalcitonin 0.4 Hep Bs Antigen Pending Hep Bs Antibody Pending Influenza A (RT-PCR) Negative Influenza B (RT-PCR) Negative RSV (RT-PCR) Negative SARS-CoV-2 RNA (RT-PCR) Negative Impressions Chest X-Ray 03/11/24 09:36 (but per my review imaging appears more consistent with pulmonary vascular congestion, pulmonary edema) IMPRESSION: 1. Airspace opacities in the mid and lower lung zones, consistent with pneumonia. 2. Nodule in right lung upper lobe, consistent with primary bronchogenic carcinoma. 3. Cardiomegaly. EKG: Sinus rhythm with first-degree block rate of 85 pulmonary disease pattern left anterior fascicular block QTC 430 unchanged from prior All imaging and EKGs personally reviewed and interpreted. And unless stated otherwise agree with radiologic and cardiology interpretation. Assessment and Plan Assessment and plan (1) Fluid overload: Qualifiers: Hypervolemia type: other Qualified Code(s): E87.79 - Other fluid overload Code(s): E87.70 - Fluid overload, unspecified Status: Acute (2) ESRD on dialysis: Code(s): N18.6 - End stage renal disease; Z99.2 - Dependence on renal dialysis Status: Acute (3) Type 2 diabetes mellitus with diabetic chronic kidney disease: Qualifiers: Chronic kidney disease stage: on chronic dialysis Diabetes mellitus detention insulin use: without detention use Qualified Code(s): E11.22 - Type 2 diabetes mellitus with diabetic chronic kidney disease; N18.6 - End stage renal disease; Z99.2 - Dependence on renal dialysis Code(s): E11.22 - Type 2 diabetes mellitus with diabetic chronic kidney disease Status: Acute (4) Hypertensive chronic kidney disease with stage 5 chronic kidney disease or end stage renal disease: Code(s): I12.0 - Hypertensive chronic kidney disease with stage 5 chronic kidney disease or end stage renal disease Status: Acute (5) Type 2 diabetes mellitus with diabetic polyneuropathy: Qualifiers: Diabetes mellitus detention insulin use: 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 Imaging on my review appears more consistent with pulmonary vascular congestion/pulmonary edema. The patient missed dialysis today due to her symptoms. Nephrology has been consulted and patient will undergo hemodialysis today for fluid removal. Patient's electrolytes are stable with creatinine only minimally elevated above baseline. I will not treat the patient for pneumonia as clinical picture does not suggest pneumonia and symptoms seem to be more due to volume overload. Likely patient's blood pressures are stable. Patient's glucoses are stable despite diagnosis of diabetes her diabetes is historically diet controlled with most recent A1c of 7.2% on February 16. Will continue consistent carbohydrate diet will check Accu-Cheks a.c. HS and will provide hypoglycemia protocol as needed. Will resume the patient's home depression and anxiety medications. Will continue her home medications for GERD, restless leg and Keppra. Will check CBC with a.m. labs to rule out developing leukocytosis. Will repeat renal function panel in a.m. to evaluate electrolyte stability. Patient reports significant improvement in shortness of breath current dialysis ongoing. She does have significant being on exam which is likely due to volume overload. However, she did reported significant history of asthma as child and did have past medical history of smoking in the distant past. Will continue with scheduled nebulizer treatments to see if there may be some component of underlying component of underlying COPD/asthma exacerbation. And if the patient may benefit from some oral steroids. Patient has been admitted as inpatient status and will require greater than 2 midnight stay for treatment and optimization of multiple acute on chronic conditions. Quality VTE Prophylaxis VTE prophylaxis: pharmacologic ordered (Heparin 5000 units subQ q.12 hours.) Hospitalist [facility] Advance Care Plan I have confirmed that the patient's Advanced Care Plan is present, code status is documented, or surrogate decision maker is listed in patient medical record.: Yes Medication Reconciliation I have utilized all available resources to obtain, update and review the patients current medications (includes all prescriptions, OTC, herbals, cannabis, and nutritional supplements).: Yes
[2024-03-11 13:47] LABS: Procalcitonin 0.4 ng/mL
--- NOTE | 2024-03-11 13:52 | PC.NURSE ---
Patient out of department for dialysis. Signed consent obtained.
--- NOTE | 2024-03-11 14:05 | PC.NURSE ---
pt to dialysis at 1355
[2024-03-11 14:07] LABS: Hepatitis B Surface Antigen Negative (Negative)
[2024-03-11] MEDS: HEPARIN SODIUM 1,000 UNITS/ML VIAL 3000 UNITS (14:20)
[2024-03-11 14:28] LABS: Hepatitis B Surface Anti Res Positive
[2024-03-11] MEDS: IPRATROPIUM BR 0.02% INH SOLN 0.5 MG/2.5 ML VIAL INHALATION ×2 (15:21→20:45)
[2024-03-11] MEDS: ALBUTEROL SULFATE NEB 2.5 MG/3 ML INH INHALATION ×2 (15:21→20:45)
[2024-03-11] MEDS: EPOETIN ALFA-EPBX 10,000 UNITS/ML VIAL 10000 UNITS IV PUSH (15:31)
[2024-03-11] MEDS: SODIUM CHLORIDE 0.9% IV 1,000 ML 999 ML IV CONT (17:36)
--- NOTE | 2024-03-11 18:15 | ADMGEN ---
This patient, Layla Maher, was admitted to Medical Room 251-01. Patient/family oriented to hospital policies and general routines including ID bracelet, bed and alarms, visiting hours, pain management, procedures, bathroom and other care routines, personal items, smoking policy, room service/diet, and visiting hours. Information on how to activate the Rapid Response Team has been discussed. Patient/Family are encouraged to report perceived risks to care and to ask questions if they do not understand what they are told or what they should do.
[2024-03-11 18:31] LABS: Glucose Point of Care 117 mg/dl (65-105)
[2024-03-11] MEDS: HEPARIN SODIUM 5,000 UNITS/ML VIAL 5000 UNITS SUB-Q (20:14)
[2024-03-11] MEDS: ACETAMINOPHEN 325 MG TABLET 650 MG PO (20:15)
[2024-03-11 23:01] LABS: Glucose Point of Care 138 mg/dl (65-105)
[2024-03-12] VITALS (19 sets, daily range): BP systolic 117–142; BP diastolic 42–63; PULSE 81–97; RESP 16–24; TEMP 36.5–36.8; O2SAT 90–98
[2024-03-12 05:16] LABS: Basophils Percent Auto 0.1 % (0.2-1.2); Eosinophils Absolute Auto 0.2 K/mm3 (0-0.3); Eosinophils Percent Auto 3.1 % (0-4.4); Hemoglobin 9.8 g/dL (12.0-15.0); Immature Granulocyte Absolute 0.09 K/mm3 (0.00-0.031); Immature Granulocyte Percent A 1.2 % (0-0.5); Lymphocytes Absolute Auto 1.22 K/mm3 (0.9-3.2); Lymphocytes Percent Auto 16.4 % (18.3-44.2); Mean Corpuscular HGB Conc 31.6 g/dl (32-36); Mean Corpuscular Hemoglobin 30.7 pg (26-34); Mean Corpuscular Volume 97.2 fl (80-100); Mean Platelet Volume 8.8 fl (7.4-10.4); Monocytes Absolute Auto 0.8 K/mm3 (0.1-0.6); Monocytes Percent Auto 10.8 % (2.6-8.5); Neutrophils Absolute Auto 5.1 K/mm3 (1.3-6.7); Neutrophils Percent Auto 68.4 % (45.5-73.1); Platelet Count Result 185 k/mm3 (150-375); Red Blood Count 3.19 M/mm3 (4.2-5.4); Red Cell Distribution Width 15.7 % (11.5-14.5); White Blood Count 7.4 K/mm3 (4.5-10.0)
[2024-03-12 05:30] LABS: Albumin Level 3.2 g/dL (3.5-5.1); Anion Gap 2 mmol/L (4-12); Blood Urea Nitrogen 32 mg/dL (7-17); Calcium 7.8 mg/dL (8.4-10.2); Carbon Dioxide 35 mmol/L (22-30); Chloride 100 mmol/L (98-107); Estimated CRCL calculation 9 ml/min; Estimated Glomerular Filt Rate 8; Glucose 113 mg/dL (65-110); Phosphorus 4.2 mg/dL (2.5-4.5); Potassium 4.3 mmol/L (3.4-5.0); Sodium 137 mmol/L (137-145)
--- NOTE | 2024-03-12 07:19 | P.CONNP_ITS ---
Assessment and Plan Assessment and plan (1) End stage renal disease: Code(s): N18.6 - End stage renal disease Status: Chronic Assessment and Plan: * The patient has end-stage renal disease. * She gets dialysis 3 times a week on Wednesdays and Fridays. * Because of the holidays this has been shifted to Thursday and Thursday. * She had a dialysis yesterday here after she got to the ER. * Volume status looks okay. * Electrolytes look okay. * Will get dialysis tomorrow (2) Pneumonia: Qualifiers: Laterality: left Lung location: upper lobe of lung Pneumonia type: due to unspecified organism Qualified Code(s): J18.9 - Pneumonia, unspecified organism Code(s): J18.9 - Pneumonia, unspecified organism Status: Acute Assessment and Plan: * Patient has cough wheezing and shortness of breath. * White cell count is okay. Chest x-ray showed infiltrate. * This may have something to do with the lung nodule. * Patient feels better this morning. She is not on oxygen (3) Multiple lung nodules on CT: Code(s): R91.8 - Other nonspecific abnormal finding of lung field Status: Acute Assessment and Plan: * Shown on CT. PET scan was positive as well. * Biopsy once patient is better. (4) Hypertension: Code(s): I10 - Essential (primary) hypertension Status: Chronic Assessment and Plan: * Blood pressure rises and falls depending on fluid status and levels of anxiety. * This morning the blood pressure looks much better. (5) Anemia: Code(s): D64.9 - Anemia, unspecified Status: Chronic Assessment and Plan: * due to ESRD * Hemoglobin 9.8 today. * Will give EPO tomorrow (6) Crohn's disease: Code(s): K50.90 - Crohn's disease, unspecified, without complications Status: Chronic Assessment and Plan: * chronic issue * loose stools/diarrhea at baseline * continue supportive therapy (7) Diabetes: Code(s): E11.9 - Type 2 diabetes mellitus without complications Status: Chronic Assessment and Plan: * On Accu-Cheks and sliding scale insulin per hospitalists History of Present Illness Reason for Consult Consult date: 03/12/24 Chief Complaint Chief complaint: Shortness of Breath/Fluid Overload/ESRD History of Present Illness Narrative: Layla is a very pleasant 78-year-old who has multiple problems including end- stage renal disease on dialysis Wednesdays and Fridays, diastolic dysfunction but good systolic function, diabetes, neuropathy, Crohn's disease, hypothyroidism, peripheral vascular disease, anemia of chronic kidney disease, renal osteodystrophy, coronary disease status post stents x3, sleep apnea, history of renal cell carcinoma, GERD, and a lung mass. The patient has had recurrent pneumonia lately. Patient says the last when ?never went away ?so she went to see Dr. Bonds who gave her an oral antibiotic to try to finish it off. However 2 days ago the patient started getting more of a cough and more short of breath. Yesterday it got much worse and so she came to the ER. In the ER she was found to be wheezing and short of breath. Chest x-ray showed pneumonia again. She was given inhalers which helped her symptoms very much and they gave her antibiotics and admitted her to the hospital. Today she feels much less short of breath. She is not on oxygen. She still is coughing some. The patient was recently diagnosed with a lung mass. PET scan showed signs consistent with possible malignancy so she is supposed to get a transthoracic needle biopsy. This is not been scheduled yet. Patient goes to dialysis 3 times a week. She generally does not have very much fluid on each time. Her labs are generally pretty good although she does have some problems with phosphorus occasionally. Review of Systems 2 Constitutional: Constitutional: Reports no additional constitutional complaints Eyes: Eyes: Reports no additional eye complaints ENT: Reports system reviewed and no additional complaints, except as documented Cardiovascular: Cardiovascular: Reports no additional cardiovascular complaints Respiratory: Respiratory: Reports no additional respiratory complaints Gastrointestinal: Gastrointestinal: Reports no additional gastrointestinal complaints Genitourinary: Genitourinary: Reports no additional female genitourinary complaints Musculoskeletal: Musculoskeletal: Reports no additional musculoskeletal complaints Integumentary/Breasts: Skin/Breast: Reports system reviewed and no additional complaints, except as docu Neurologic: Reports system reviewed and no additional complaints, except as documented Psychiatric: Psychiatric: Reports no additional psychiatric complaints Endocrine: Endocrine: Reports no additional endocrine complaints PMFSH Past Medical History Medical History Diastolic dysfunction Echocardiogram October 2022: EF greater than 70% mildly increased left ventricular wall thickness, grade 1 diastolic dysfunction, patent foramen ovale visualized on agitated saline mild mitral valve regurgitation, mild tricuspid valve regurgitation mild pulmonary hypertension with RVSP of 37 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 COVID-19 virus infection Renal osteodystrophy Erythropoietin deficiency anemia End-stage renal disease on hemodialysis Thursday Normal colonoscopy (08/2019) Tushar (1991) Gastroesophageal reflux disease Restless leg syndrome Renal cell carcinoma (2004) Obstructive sleep apnea No longer using CPAP after 40 lb weight loss. Coronary artery disease History of stent x3. Anemia of chronic disease Pericardial effusion (01/2020) Small pericardial effusion on echocardiogram, felt to be related to uremia. Hypothyroidism Peripheral vascular disease Crohn's disease History of kidney stones Peritonitis (01/2020) Surgical History Surgical History Amputation toe Left 2nd toe. History of complete ray amputation of second toe of left foot History of complete ray amputation of second toe of right foot History of cholecystectomy History of appendectomy History of foot surgery Repair of left foot fracture with pinning. History of partial nephrectomy (2004) Left partial nephrectomy for kidney cancer. History of tonsillectomy History of bilateral carpal tunnel release History of hysterectomy (1976) With cystocele and rectocele repairs. History of cardiac catheterization With stent x3. History of cystoscopy With ureteral stents for kidney stones. History of colonoscopy Family History Family History Father Renal cell carcinoma Acute myocardial infarction Cerebrovascular accident Colon polyp Heart disease Hypertension Mother Lung cancer Acute myocardial infarction Cerebrovascular accident Depression Heart disease Hypertension Son Asthma Social History Social History Social History: Patient is retired. 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 She had 1 son who at 50 years old heart attack. She has a 2nd son who is still living and he was her surrogate decision maker. To smoke 1 pack of cigarettes per day for about 30 years. She quit smoking in 1995. She denies any alcohol use or illicit substance use. She is living in [facility]. Surrogate medical decision maker: Dong Maher, son. Code status: DNR/DNI Smoking packs per day: 0.5 Smoking cigarettes per day: 10.0 Years smoked: 10 Smoking pack-years: 5.00 Smoking status: Former smoker Tobacco type: cigarettes Second hand tobacco smoke exposure: No Smoking end date: 03/16/93 Alcohol intake: never Substance use: never Do You Feel Safe in your Home?: Yes Lack of Transportation: No Lack of Food: Never True Current Housing: I Have Housing Concerned About Future Housing: No Difficulty Paying Gas/Electric Bills: No Difficulty Paying for Meds: No Currently Unemployed: No Education: High School Diploma/GED Difficulty w/ Childcare or Family Care: No Living arrangements: alone Additional living arrangements comments: , lives in [place]. 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 Spiritual care concerns: No Agree to blood products: Yes Meds Home Medications and Allergies Home Medications ?Medication ?Instructions ?Recorded ?Confirmed ?Type atorvastatin 40 mg tablet 40 mg PO DAILY #90 tabs 03/11/23 03/11/24 Rx bupropion HCl 150 mg 24 hr tablet, 150 mg PO QAM #90 tabs 03/11/23 03/11/24 Rx extended release diclofenac sodium 1 % topical gel 2 g topical BID PRN knee pain #200 03/11/23 03/11/24 Rx (Voltaren Arthritis Pain) grams levetiracetam 500 mg tablet 500 mg PO Q12H #180 tabs 03/11/23 03/11/24 Rx mirtazapine 30 mg tablet 30 mg PO QHS #90 tabs 03/11/23 03/11/24 Rx pantoprazole 40 mg tablet,delayed 40 mg PO QAM #90 tabs 03/11/23 03/11/24 Rx release ropinirole 0.5 mg tablet 0.5 mg PO BID #180 tabs 03/11/23 03/11/24 Rx cyclobenzaprine 5 mg tablet 5 mg PO TID PRN muscle spasm #10 06/03/23 03/11/24 Rx tabs escitalopram oxalate 10 mg tablet 10 mg PO DAILY #30 tabs 06/17/23 03/11/24 Rx dicyclomine 20 mg tablet 20 mg PO TID #90 tabs 08/05/23 03/11/24 Rx cholestyramine-aspartame 4 gram 4 g PO TID #239.4 grams 02/10/24 03/11/24 Rx oral powder (Cholestyramine Light) loperamide 2 mg tablet 4 mg (2 x 2 mg) PO QID PRN loose 02/10/24 03/11/24 Rx stool #100 tabs hydrocodone 5 mg-acetaminophen 325 1 tablet PO QID PRN pain #120 tabs 02/29/24 03/11/24 Rx mg tablet levofloxacin 500 mg tablet 500 mg PO DAILY #10 tabs 03/10/24 03/11/24 Rx acetaminophen 325 mg capsule 650 mg PO QID PRN pain 03/11/24 03/11/24 History bisacodyl 10 mg rectal suppository 10 mg RECTAL DAILY PRN constipation 03/11/24 03/11/24 History buspirone 10 mg tablet 5 mg PO BID 03/11/24 03/11/24 History ergocalciferol (vitamin D2) 1,250 1,250 mcg PO WEEKLY 03/11/24 03/11/24 History mcg (50,000 unit) capsule Allergies Allergy/AdvReac Type Severity Reaction Status Date / Time cortisone Allergy Intermediate Dyspnea / Verified 03/11/24 18:31 SOB Penicillins Allergy Intermediate Dyspnea / Verified 03/11/24 18:31 SOB ceftriaxone (From Rocephin) Allergy Difficulty Verified 03/11/24 18:31 Breathing Vital Signs Vital Signs - 24 hr 03/11/24 09:03 03/11/24 09:11 03/11/24 09:15 Temperature 97.6 F Pulse Rate 89 88 88 Respiratory Rate 20 15 17 Blood Pressure 148/69 H Pulse Oximetry 100 Oxygen Delivery 03/11/24 09:16 03/11/24 09:44 03/11/24 09:45 Temperature Pulse Rate 89 88 Respiratory Rate 19 16 13 Blood Pressure 116/98 H Pulse Oximetry 97 100 Oxygen Delivery 03/11/24 10:05 03/11/24 11:13 03/11/24 11:30 Temperature Pulse Rate 92 81 85 Respiratory Rate 19 15 18 Blood Pressure Pulse Oximetry Oxygen Delivery 03/11/24 11:38 03/11/24 12:04 03/11/24 12:48 Temperature Pulse Rate 87 85 Respiratory Rate 18 13 Blood Pressure Pulse Oximetry 99 99 Oxygen Delivery Room Air 03/11/24 14:05 03/11/24 14:25 03/11/24 14:30 Temperature 97.7 F Pulse Rate 83 81 82 Respiratory Rate 20 Blood Pressure 172/78 H 191/85 H 164/80 H Pulse Oximetry 100 Oxygen Delivery 03/11/24 14:45 03/11/24 15:00 03/11/24 15:15 Temperature Pulse Rate 84 89 92 Respiratory Rate Blood Pressure 138/75 140/80 138/82 Pulse Oximetry Oxygen Delivery 03/11/24 15:20 03/11/24 15:24 03/11/24 15:30 Temperature Pulse Rate 90 89 Respiratory Rate 20 Blood Pressure 167/78 H Pulse Oximetry 100 Oxygen Delivery Room Air 03/11/24 15:34 03/11/24 15:45 03/11/24 16:00 Temperature Pulse Rate 95 100 103 H Respiratory Rate 20 Blood Pressure 182/86 H 185/91 H Pulse Oximetry Oxygen Delivery 03/11/24 16:15 03/11/24 16:30 03/11/24 16:45 Temperature Pulse Rate 101 H 108 H 101 H Respiratory Rate Blood Pressure 173/81 H 143/76 H 147/71 H Pulse Oximetry Oxygen Delivery 03/11/24 17:00 03/11/24 17:15 03/11/24 17:30 Temperature Pulse Rate 97 97 99 Respiratory Rate Blood Pressure 126/62 141/66 H 153/63 H Pulse Oximetry Oxygen Delivery 03/11/24 17:42 03/11/24 18:00 03/11/24 20:00 Temperature 98.2 F Pulse Rate 97 99 92 Respiratory Rate 18 16 Blood Pressure 172/71 H 174/88 H Pulse Oximetry 97 97 Oxygen Delivery Room Air 03/11/24 20:00 03/11/24 20:45 03/11/24 20:45 Temperature Pulse Rate 95 90 Respiratory Rate 20 Blood Pressure Pulse Oximetry 92 Oxygen Delivery Room Air 03/11/24 21:20 03/11/24 21:37 03/12/24 00:00 Temperature 98.3 F Pulse Rate 93 92 84 Respiratory Rate 20 16 Blood Pressure 133/46 L Pulse Oximetry 97 Oxygen Delivery 03/12/24 00:48 03/12/24 04:00 03/12/24 05:10 Temperature 97.7 F 97.8 F Pulse Rate 88 94 93 Respiratory Rate 16 16 Blood Pressure 134/53 L 139/43 L Pulse Oximetry 94 98 Oxygen Delivery 03/12/24 06:00 Temperature 97.8 F Pulse Rate 93 Respiratory Rate 16 Blood Pressure 139/43 L Pulse Oximetry 98 Oxygen Delivery Exam 2 Narrative: Exam Narrative: Well developed well-nourished female in no acute distress Skin is warm and dry without rash Head normocephalic atraumatic Eyes normal sclerae and conjunctivae Mouth normal lips teeth and gums Neck no nodes no thyromegaly no carotid bruits Axillae no nodes Back no CVA tenderness Lungs symmetric and clear to auscultation and percussion Heart regular rate and rhythm without rub or gallop Abdomen bowel sounds positive soft nontender, no HSM, masses, or bruits. Extremities no cyanosis, clubbing, or edema Pulses 2+ equal in radial arteries Psychological not anxious or depressed Neuro alert and oriented x3 motor 5/5 cranial nerves 2-12 intact reflexes 2+ and equal in the biceps and patellar tendons cerebellar normal rapid alternating movements Results Lab Results 03/12/24 05:01 03/12/24 05:01 Lab results: Most recent lab results Calcium 7.8 mg/dL (8.4-10.2) L 03/12/24 05:01 Phosphorus 4.2 mg/dL (2.5-4.5) 03/12/24 05:01
[2024-03-12] MEDS: IPRATROPIUM BR 0.02% INH SOLN 0.5 MG/2.5 ML VIAL INHALATION ×3 (07:40→20:53)
[2024-03-12] MEDS: ALBUTEROL SULFATE NEB 2.5 MG/3 ML INH INHALATION ×3 (07:40→20:53)
[2024-03-12 08:14] LABS: Glucose Point of Care 125 mg/dl (65-105)
[2024-03-12] MEDS: HEPARIN SODIUM 5,000 UNITS/ML VIAL 5000 UNITS SUB-Q ×2 (08:51→20:32)
--- NOTE | 2024-03-12 10:58 | P.PNIM_ITS ---
Progress Note: A&P Assessment and Plan (1) Fluid overload: Qualifiers: Hypervolemia type: other Qualified Code(s): E87.79 - Other fluid overload Code(s): E87.70 - Fluid overload, unspecified Status: Acute Assessment and Plan: - Related to missed HD due to change in schedule because of holidays. - Patient had HD yesterday and is scheduled for another session tomorrow. - Reports much improvement in symptoms. - Nephro managing HD and we appreciate assistance. (2) ESRD on dialysis: Code(s): N18.6 - End stage renal disease; Z99.2 - Dependence on renal dialysis Status: Acute Assessment and Plan: - HD schedule affected by holidays. - Normal schedule for pt M,W,F but missed Thursday due to holiday. 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 - States she was diabetic 10 yrs ago but lost a lot of weight and diabetes med discontinued. - Refusing diabetic meds now. - A1C 7.2 - We'll d'c insulin per patient request. (4) Hypertensive chronic kidney disease with stage 5 chronic kidney disease or end stage renal disease: Code(s): I12.0 - Hypertensive chronic kidney disease with stage 5 chronic kidney disease or end stage renal disease Status: Acute Assessment and Plan: - BP currently trending wnl post HD. - Monitor for now. (5) Type 2 diabetes mellitus with diabetic polyneuropathy: Qualifiers: Diabetes mellitus senior living insulin use: without closing machine operator use Qualified Code(s): E11.42 - Type 2 diabetes mellitus with diabetic polyneuropathy Code(s): E11.42 - Type 2 diabetes mellitus with diabetic polyneuropathy Status: Acute Assessment and Plan: - Mgt as # 3. Time Spent With Patient Time with patient: 15 - 25 minutes Subjective Date/time seen: 03/12/24 10:00 Patient states she feels much better than yesterday and her breathing is much better. Interval history: Patient calm on bedrest and looks to be in no acute distress. Review of Systems Review of Systems: 12 systems were reviewed with pertinent positives and negatives per HPI. Except as documented in the HPI, all other systems were reviewed and are negative. All systems reviewed & are unremarkable except as noted in HPI and below Exam Narrative: General: Well appearing, no acute distress. HEENT: Atraumatic, PERRL, EOM, moist mucosa. NECK: Supple. Lungs: Faint expiratory wheezes. Heart: RRR, Grade II apical murmur. Abdomen: Soft, non-tender, non-distended, +ve BS X4 quadrants. Extremities: Acyanotic, trace edema citlalli. LE. Skin: Warm and dry with no lesions. Neuro: Well oriented. CN II-XII grossly intact. Psych: Pleasant and co-operative. Objective Data Vital Signs Vital Signs: Vital Signs - 24 hr 03/11/24 11:13 03/11/24 11:30 03/11/24 11:38 Temperature Pulse Rate 81 85 Respiratory Rate 15 18 Blood Pressure Pulse Oximetry 99 Oxygen Delivery Room Air 03/11/24 12:04 03/11/24 12:48 03/11/24 14:05 Temperature 97.7 F Pulse Rate 87 85 83 Respiratory Rate 18 13 20 Blood Pressure 172/78 H Pulse Oximetry 99 100 Oxygen Delivery 03/11/24 14:25 03/11/24 14:30 03/11/24 14:45 Temperature Pulse Rate 81 82 84 Respiratory Rate Blood Pressure 191/85 H 164/80 H 138/75 Pulse Oximetry Oxygen Delivery 03/11/24 15:00 03/11/24 15:15 03/11/24 15:20 Temperature Pulse Rate 89 92 Respiratory Rate Blood Pressure 140/80 138/82 Pulse Oximetry 100 Oxygen Delivery Room Air 03/11/24 15:24 03/11/24 15:30 03/11/24 15:34 Temperature Pulse Rate 90 89 95 Respiratory Rate 20 20 Blood Pressure 167/78 H Pulse Oximetry Oxygen Delivery 03/11/24 15:45 03/11/24 16:00 03/11/24 16:15 Temperature Pulse Rate 100 103 H 101 H Respiratory Rate Blood Pressure 182/86 H 185/91 H 173/81 H Pulse Oximetry Oxygen Delivery 03/11/24 16:30 03/11/24 16:45 03/11/24 17:00 Temperature Pulse Rate 108 H 101 H 97 Respiratory Rate Blood Pressure 143/76 H 147/71 H 126/62 Pulse Oximetry Oxygen Delivery 03/11/24 17:15 03/11/24 17:30 03/11/24 17:42 Temperature Pulse Rate 97 99 97 Respiratory Rate Blood Pressure 141/66 H 153/63 H 172/71 H Pulse Oximetry Oxygen Delivery 03/11/24 18:00 03/11/24 20:00 03/11/24 20:00 Temperature 98.2 F Pulse Rate 99 92 95 Respiratory Rate 18 16 Blood Pressure 174/88 H Pulse Oximetry 97 97 Oxygen Delivery Room Air 03/11/24 20:45 03/11/24 20:45 03/11/24 21:20 Temperature Pulse Rate 90 93 Respiratory Rate 20 20 Blood Pressure Pulse Oximetry 92 Oxygen Delivery Room Air 03/11/24 21:37 03/12/24 00:00 03/12/24 00:48 Temperature 98.3 F 97.7 F Pulse Rate 92 84 88 Respiratory Rate 16 16 Blood Pressure 133/46 L 134/53 L Pulse Oximetry 97 94 Oxygen Delivery 03/12/24 04:00 03/12/24 05:10 03/12/24 06:00 Temperature 97.8 F 97.8 F Pulse Rate 94 93 93 Respiratory Rate 16 16 Blood Pressure 139/43 L 139/43 L Pulse Oximetry 98 98 Oxygen Delivery 03/12/24 07:43 03/12/24 07:43 03/12/24 07:49 Temperature Pulse Rate 90 86 Respiratory Rate 22 H 24 H Blood Pressure Pulse Oximetry 90 Oxygen Delivery Room Air 03/12/24 08:50 03/12/24 10:00 Temperature 98.1 F Pulse Rate 96 87 Respiratory Rate 16 Blood Pressure 117/45 L Pulse Oximetry 96 Oxygen Delivery Intake/Output Intake/Output: Intake & Output 03/09/24 03/10/24 03/11/24 03/12/24 23:59 23:59 23:59 23:59 Intake Total 200 Output Total 965 Balance -965 200 Meds/Results Medications: Active Medications Generic Name Dose Route Start Last Admin Trade Name Freq PRN Reason Stop Dose Admin Acetaminophen 650 mg 03/11/24 13:12 03/11/24 20:15 Acetaminophen 325 Mg Tablet PO 650 mg Q4H PRN Administration Mild Pain (1-3) or Fever Albuterol 2.5 mg 03/11/24 14:00 03/12/24 07:40 Albuterol Sulfate Neb 2.5 Mg/3 Ml Inh INHALATION 2.5 mg Q6HRT SUKI Administration Dextrose 12.5 gm 03/11/24 14:07 Dextrose 50% 25 Gm/50 Ml Syringe IV PUSH PRN PRN Hypoglycemia Protocol Epoetin Kelechi-epbx 10,000 units 03/13/24 07:00 Epoetin Kelechi-Epbx 10,000 Units/Ml Vial IV PUSH 03/13/24 07:01 ONCE ONE Glucagon 1 mg 03/11/24 14:07 Glucagon For Inj 1 Mg Vial IM PRN PRN Hypoglycemia Protocol Glucose 15 gm 03/11/24 14:07 Glucose Oral Gel 15 Gm Of Glucse In 37.5 Gm Tube PO PRN PRN Hypoglycemia Protocol Heparin Sodium (Porcine) 5,000 units 03/11/24 21:00 03/12/24 08:51 Heparin Sodium 5,000 Units/Ml Vial SUB-Q 5,000 units Q12HR SUKI Administration Dextrose 1,000 mls @ 100 mls/hr 03/11/24 14:07 Dextrose 5% 1,000 Ml IVPB PRN PRN Hypoglycemia Protocol Albumin Human 50 mls @ 999 mls/hr 03/12/24 07:28 Albutein IVPB 03/13/24 07:27 Q10M PRN HYPOTENSION Ipratropium [place] 0.5 mg 03/11/24 14:00 03/12/24 07:40 Ipratropium Br 0.02% Inh Soln 0.5 Mg/2.5 Ml Vial INHALATION 0.5 mg Q6HRT SUKI Administration Morphine Sulfate 2 mg 03/11/24 13:12 Morphine Sulfate (*Crx) 2 Mg/Ml Inj IV PUSH Q2H PRN Pain Rated 7-10 Radiology Results: ITS Impressions Chest X-Ray 03/11/24 09:36 IMPRESSION: 1. Airspace opacities in the mid and lower lung zones, consistent with pneumonia. 2. Nodule in right lung upper lobe, consistent with primary bronchogenic carcinoma. 3. Cardiomegaly. Labs Labs: Laboratory Results - last 24 hr 03/11/24 03/11/24 03/11/24 09:50 18:28 21:41 WBC RBC Hgb Hct MCV MCH MCHC RDW Plt Count MPV Immature Gran % (Auto) Neut % (Auto) Lymph % (Auto) [place] % (Auto) Eos % (Auto) Baso % (Auto) Lymph # (Auto) [place] # (Auto) Eos # (Auto) Baso # (Auto) Abs Immat Gran (auto) Absolute Neuts (auto) Absolute Nucleated RBC Nucleated RBC % Sodium Potassium Chloride Carbon Dioxide Anion Gap BUN Creatinine Estim Creat Clear Calc Estimated GFR Glucose POC Capillary Glucose 117 H 138 H Calcium Phosphorus Albumin Procalcitonin 0.4 Hep Bs Antigen Negative Hep Bs Antibody Positive 03/12/24 03/12/24 05:01 08:10 WBC 7.4 RBC 3.19 L Hgb 9.8 L Hct 31.0 L MCV 97.2 MCH 30.7 MCHC 31.6 L RDW 15.7 H Plt Count 185 MPV 8.8 Immature Gran % (Auto) 1.2 H Neut % (Auto) 68.4 Lymph % (Auto) 16.4 L [place] % (Auto) 10.8 H Eos % (Auto) 3.1 Baso % (Auto) 0.1 L Lymph # (Auto) 1.22 [place] # (Auto) 0.8 H Eos # (Auto) 0.2 Baso # (Auto) 0.0 Abs Immat Gran (auto) 0.09 H Absolute Neuts (auto) 5.1 Absolute Nucleated RBC 0.000 Nucleated RBC % 0.0 Sodium 137 Potassium 4.3 Chloride 100 Carbon Dioxide 35 H Anion Gap 2 L BUN 32 H D Creatinine 5.00 H Estim Creat Clear Calc 9 Estimated GFR 8 L Glucose 113 H POC Capillary Glucose 125 H Calcium 7.8 L Phosphorus 4.2 Albumin 3.2 L Procalcitonin Hep Bs Antigen Hep Bs Antibody Quality VTE Prophylaxis VTE prophylaxis: pharmacologic ordered (Heparin 5000 units subQ q.12 hours.) Hospitalist MIPS Advance Care Plan I have confirmed that the patient's Advanced Care Plan is present, code status is documented, or surrogate decision maker is listed in patient medical record.: Yes Medication Reconciliation I have utilized all available resources to obtain, update and review the patients current medications (includes all prescriptions, OTC, herbals, cannabis, and nutritional supplements).: Yes
[2024-03-12] MEDS: DICYCLOMINE HCL 10 MG CAPSULE 20 MG PO (17:24)
[2024-03-12] MEDS: busPIRone HCL 5 MG TABLET PO (17:25)
[2024-03-12] MEDS: rOPINIRole HCL 0.5 MG TABLET PO (17:25)
[2024-03-12] MEDS: levETIRAcetam 500 MG TABLET PO (20:33)
[2024-03-12] MEDS: MIRTAZAPINE 30 MG TABLET PO (20:33)
[2024-03-12] MEDS: CYCLOBENZAPRINE HCL 5 MG TABLET PO (20:42)
[2024-03-12] MEDS: ACETAMINOPHEN 325 MG TABLET 650 MG PO (20:43)
[2024-03-13] VITALS (34 sets, daily range): BP systolic 120–187; BP diastolic 42–86; PULSE 84–122; RESP 18–24; TEMP 36.3–37.4; O2SAT 90–100
[2024-03-13] MEDS: IPRATROPIUM BR 0.02% INH SOLN 0.5 MG/2.5 ML VIAL INHALATION ×4 (02:03→20:56)
[2024-03-13] MEDS: ALBUTEROL SULFATE NEB 2.5 MG/3 ML INH INHALATION ×4 (02:03→20:56)
[2024-03-13 05:22] LABS: Hematocrit 31.4 % (37.0-47.0); Hemoglobin 9.9 g/dL (12.0-15.0); Mean Corpuscular HGB Conc 31.5 g/dl (32-36); Mean Corpuscular Volume 98.4 fl (80-100); Mean Platelet Volume 8.6 fl (7.4-10.4); Platelet Count Result 180 k/mm3 (150-375); Red Blood Count 3.19 M/mm3 (4.2-5.4); Red Cell Distribution Width 15.7 % (11.5-14.5); White Blood Count 7.1 K/mm3 (4.5-10.0)
[2024-03-13 05:34] LABS: Albumin Level 3.3 g/dL (3.5-5.1); Anion Gap 6 mmol/L (4-12); Blood Urea Nitrogen 47 mg/dL (7-17); Calcium 7.9 mg/dL (8.4-10.2); Carbon Dioxide 31 mmol/L (22-30); Chloride 103 mmol/L (98-107); Estimated CRCL calculation 6 ml/min; Estimated Glomerular Filt Rate 5; Glucose 117 mg/dL (65-110); Phosphorus 5.1 mg/dL (2.5-4.5); Potassium 3.9 mmol/L (3.4-5.0); Sodium 140 mmol/L (137-145)
[2024-03-13] MEDS: rOPINIRole HCL 0.5 MG TABLET PO ×2 (08:33→17:10)
[2024-03-13] MEDS: levETIRAcetam 500 MG TABLET PO ×2 (08:33→20:44)
[2024-03-13] MEDS: PANTOPRAZOLE 40 MG TABLET PO (08:33)
[2024-03-13] MEDS: buPROPion HCL XL (24 HR) 150 MG TABCR PO (08:33)
[2024-03-13] MEDS: ESCITALOPRAM OXALATE 10 MG TABLET PO (08:33)
[2024-03-13] MEDS: busPIRone HCL 5 MG TABLET PO ×2 (08:33→17:10)
[2024-03-13] MEDS: DICYCLOMINE HCL 10 MG CAPSULE 20 MG PO ×3 (08:33→17:10)
[2024-03-13] MEDS: ATORVASTATIN 40 MG TABLET PO (08:33)
[2024-03-13] MEDS: CHOLESTYRAMINE LIGHT 4 GM POWD.PACK PO ×3 (08:34→17:10)
[2024-03-13] MEDS: HEPARIN SODIUM 1,000 UNITS/ML VIAL 1000 UNITS IV PUSH (08:55)
--- NOTE | 2024-03-13 09:02 | PC.NURSE ---
Patient to HD 0845, breakfast, tissues, and cell phone taken as well.
[2024-03-13] MEDS: CYCLOBENZAPRINE HCL 5 MG TABLET PO (09:46)
[2024-03-13] MEDS: HEPARIN SODIUM 1,000 UNITS/ML VIAL 500 UNITS IV PUSH (10:15)
[2024-03-13] MEDS: MORPHINE SULFATE (*CRX) 2 MG/ML INJ IV PUSH ×2 (11:54→21:02)
[2024-03-13] MEDS: EPOETIN ALFA-EPBX 10,000 UNITS/ML VIAL 10000 UNITS IV PUSH (12:15)
--- NOTE | 2024-03-13 13:07 | PC.NURSE ---
Patient resting in bed for morning assessment. She has concerns she is declining as she had trouble breathing last night. RT gave her a treatment and she states she feels better but still cannot breathe she is saturating and 100% on RA. Patient taken to HD approximately 0845. I returned to HD two times, once for Flexeril requested by HD RN and again for complaints of 7/10 pain by patient and a replacement depends as patient had an episode of bowel incontinence. HD RN called at approximately 1305 to state patient is completed with her treatment.
--- NOTE | 2024-03-13 13:48 | P.PNNP_ITS ---
Progress Note: A&P Assessment and Plan (1) End stage renal disease: Code(s): N18.6 - End stage renal disease Status: Chronic Assessment and Plan: * The patient has end-stage renal disease. * She gets dialysis 3 times a week on Wednesdays and Fridays. * Because of the holidays this has been shifted to Thursday and Thursday. * Her dialysis is underway * Volume status looks okay. * Electrolytes look okay. * will finish the dialysis. She will get another treatment on Thursday (2) Pneumonia: Qualifiers: Laterality: left Lung location: upper lobe of lung Pneumonia type: due to unspecified organism Qualified Code(s): J18.9 - Pneumonia, unspecified organism Code(s): J18.9 - Pneumonia, unspecified organism Status: Acute Assessment and Plan: * Patient has cough wheezing and shortness of breath. * White cell count is okay. Chest x-ray showed infiltrate. * she feels better today. She did have a spell of shortness of breath this morning. Questionable mobilization of secretions? She looks pretty good now. (3) Multiple lung nodules on CT: Code(s): R91.8 - Other nonspecific abnormal finding of lung field Status: Acute Assessment and Plan: * Shown on CT. PET scan was positive as well. * Biopsy once patient is better. (4) Hypertension: Code(s): I10 - Essential (primary) hypertension Status: Chronic Assessment and Plan: * Blood pressure rises and falls depending on fluid status and levels of anxiety. * This morning the blood pressure Pretty good in the 150. She has not done with her dialysis yet. (5) Anemia: Code(s): D64.9 - Anemia, unspecified Status: Chronic Assessment and Plan: * due to ESRD * Hemoglobin 9.8 today. * Getting Epogen today (6) Crohn's disease: Code(s): K50.90 - Crohn's disease, unspecified, without complications Status: Chronic Assessment and Plan: * chronic issue * loose stools/diarrhea at baseline * continue supportive therapy (7) Diabetes: Code(s): E11.9 - Type 2 diabetes mellitus without complications Status: Chronic Assessment and Plan: * On Accu-Cheks and sliding scale insulin per hospitalists Subjective Date/time seen: 03/13/24 13:48 Interval history: patient is on dialysis. Tolerating it well. She was seen at 11:30 a.m.. Blood pressure is doing pretty well. Nurse is going for 1L. The patient says that she had shortness of breath this morning. She called the nurse and nurse came in. She did not give her oxygen or breathing treatment but sat the patient up in bed and the patient coughed and felt better. The patient is anxious about going home because of that shortness of breath ricardo. Review of Systems Cardiovascular: Cardiovascular: Reports no additional cardiovascular complaints Respiratory: Respiratory: Reports no additional respiratory complaints Gastrointestinal: Gastrointestinal: Reports no additional gastrointestinal complaints Genitourinary: Genitourinary: Reports no additional female genitourinary complaints Exam Narrative: WDWN in NAD skin no rash head ncat lungs clear cor reg no rub abd BS+ nontender and soft ext no edema. Objective Data Vital Signs Vital Signs: Vital Signs - 24 hr 03/12/24 16:00 03/12/24 16:00 03/12/24 20:00 Temperature 97.8 F 98.3 F Pulse Rate 97 90 84 Respiratory Rate 16 18 Blood Pressure 142/53 H 132/63 Pulse Oximetry 96 96 Oxygen Delivery 03/12/24 20:00 03/12/24 20:55 03/12/24 20:56 Temperature Pulse Rate 81 91 Respiratory Rate 19 Blood Pressure Pulse Oximetry 94 Oxygen Delivery Room Air 03/12/24 21:04 03/12/24 22:00 03/13/24 00:00 Temperature 98.3 F 97.4 F L Pulse Rate 87 89 101 H Respiratory Rate 19 18 18 Blood Pressure 136/42 L 137/44 L Pulse Oximetry 94 90 Oxygen Delivery 03/13/24 00:00 03/13/24 02:04 03/13/24 02:11 Temperature Pulse Rate 96 99 98 Respiratory Rate 19 19 Blood Pressure Pulse Oximetry Oxygen Delivery 03/13/24 04:00 03/13/24 04:00 03/13/24 06:00 Temperature 97.4 F L 97.4 F L Pulse Rate 100 96 101 H Respiratory Rate 18 18 Blood Pressure 151/56 H 151/50 H Pulse Oximetry 92 91 Oxygen Delivery 03/13/24 07:14 03/13/24 08:40 03/13/24 08:50 Temperature 98.1 F 98.1 F Pulse Rate 102 H 103 H 96 Respiratory Rate 24 H 20 18 Blood Pressure 128/42 L 142/69 H Pulse Oximetry 98 100 Oxygen Delivery 03/13/24 08:59 03/13/24 09:15 03/13/24 09:30 Temperature Pulse Rate 96 98 104 H Respiratory Rate Blood Pressure 146/68 H 169/80 H 177/76 H Pulse Oximetry Oxygen Delivery 03/13/24 09:45 03/13/24 10:00 03/13/24 10:15 Temperature Pulse Rate 102 H 99 97 Respiratory Rate Blood Pressure 159/58 H 187/86 H 138/82 Pulse Oximetry Oxygen Delivery 03/13/24 10:30 03/13/24 10:45 03/13/24 11:00 Temperature Pulse Rate 98 94 122 H Respiratory Rate Blood Pressure 155/71 H 164/73 H 150/70 H Pulse Oximetry Oxygen Delivery 03/13/24 11:15 03/13/24 11:30 03/13/24 11:45 Temperature Pulse Rate 96 102 H 120 H Respiratory Rate Blood Pressure 167/74 H 162/85 H 152/69 H Pulse Oximetry Oxygen Delivery 03/13/24 12:00 03/13/24 12:15 03/13/24 12:30 Temperature Pulse Rate 94 107 H 97 Respiratory Rate Blood Pressure 150/73 H 150/78 H 159/74 H Pulse Oximetry Oxygen Delivery 03/13/24 12:43 03/13/24 13:00 03/13/24 13:41 Temperature 98.2 F Pulse Rate 92 93 84 Respiratory Rate 18 20 Blood Pressure 154/71 H 154/70 H Pulse Oximetry 94 Oxygen Delivery Intake/Output Intake/Output: Intake & Output 03/10/24 03/11/24 03/12/24 03/13/24 23:59 23:59 23:59 23:59 Intake Total 440 Output Total 965 988 Balance -965 440 -988 Meds/Results Medications: Active Medications Generic Name Dose Route Start Last Admin Trade Name Freq PRN Reason Stop Dose Admin Acetaminophen 650 mg 03/11/24 13:12 03/12/24 20:43 Acetaminophen 325 Mg Tablet PO 650 mg Q4H PRN Administration Fever Acetaminophen 650 mg 03/12/24 16:55 Acetaminophen 325 Mg Tablet PO QID PRN PAIN RATED 1-3 Albuterol 2.5 mg 03/11/24 14:00 03/13/24 13:39 Albuterol Sulfate Neb 2.5 Mg/3 Ml Inh INHALATION 2.5 mg Q6HRT SUKI Administration Atorvastatin Calcium 40 mg 03/13/24 09:00 03/13/24 08:33 Atorvastatin 40 Mg Tablet PO 40 mg DAILY [facility]KI Administration Bisacodyl 10 mg 03/12/24 16:55 Bisacodyl 10 Mg Suppository RECTAL DAILY PRN constipation Bupropion HCl 150 mg 03/13/24 09:00 03/13/24 08:33 Bupropion Hcl Xl (24 Hr) 150 Mg Tabcr PO 150 mg QAM [facility]KI Administration Buspirone HCl 5 mg 03/12/24 17:00 03/13/24 08:33 Buspirone Hcl 5 Mg Tablet PO 5 mg BID SU[facility] Administration Cholestyramine Resin 4 gm 03/13/24 08:00 03/13/24 13:35 Cholestyramine Light 4 Gm Powd.Pack PO 4 gm 0800,1200,1600 [facility] Administration Cyclobenzaprine HCl 5 mg 03/12/24 16:55 03/13/24 09:46 Cyclobenzaprine Hcl 5 Mg Tablet PO 5 mg TID PRN Administration muscle spasm Dextrose 12.5 gm 03/11/24 14:07 Dextrose 50% 25 Gm/50 Ml Syringe IV PUSH PRN PRN Hypoglycemia Protocol Diclofenac Sodium 0 applic 03/12/24 16:55 Diclofenac Sodium 1% 100 Gm Gel (*Bkc) TOPICAL BID PRN knee pain Dicyclomine HCl 20 mg 03/12/24 17:00 03/13/24 13:35 Dicyclomine Hcl 10 Mg Capsule PO 20 mg TID SUKI Administration Ergocalciferol 50,000 units 03/16/24 09:00 Ergocalciferol 50,000 Units Capsule PO We@0900 [facility] Escitalopram Oxalate 10 mg 03/13/24 09:00 03/13/24 08:33 Escitalopram Oxalate 10 Mg Tablet PO 10 mg DAILY SUKI Administration Glucagon 1 mg 03/11/24 14:07 Glucagon For Inj 1 Mg Vial IM PRN PRN Hypoglycemia Protocol Glucose 15 gm 03/11/24 14:07 Glucose Oral Gel 15 Gm Of Glucse In 37.5 Gm Tube PO PRN PRN Hypoglycemia Protocol Heparin Sodium (Porcine) 5,000 units 03/11/24 21:00 03/13/24 10:27 Heparin Sodium 5,000 Units/Ml Vial SUB-Q Not Given Q12HR SUKI Dextrose 1,000 mls @ 100 mls/hr 03/11/24 14:07 Dextrose 5% 1,000 Ml IVPB PRN PRN Hypoglycemia Protocol Ipratropium [place] 0.5 mg 03/11/24 14:00 03/13/24 13:40 Ipratropium Br 0.02% Inh Soln 0.5 Mg/2.5 Ml Vial INHALATION 0.5 mg Q6HRT SUKI Administration Levetiracetam 500 mg 03/12/24 21:00 03/13/24 08:33 Levetiracetam 500 Mg Tablet PO 500 mg Q12H [facility]KI Administration Loperamide HCl 4 mg 03/12/24 16:55 Loperamide Hcl 2 Mg Capsule PO QID PRN loose stool Mirtazapine 30 mg 03/12/24 21:00 03/12/24 20:33 Mirtazapine 30 Mg Tablet PO 30 mg QHS [facility]KI Administration Morphine Sulfate 2 mg 03/11/24 13:12 03/13/24 11:54 Morphine Sulfate (*Crx) 2 Mg/Ml Inj IV PUSH 2 mg Q2H PRN Administration Pain Rated 7-10 Pantoprazole Sodium 40 mg 03/13/24 09:00 03/13/24 08:33 Pantoprazole 40 Mg Tablet PO 40 mg QAM SUKI Administration Ropinirole HCl 0.5 mg 03/12/24 17:00 03/13/24 08:33 Ropinirole Hcl 0.5 Mg Tablet PO 0.5 mg BID SUKI Administration Radiology Results: ITS Impressions Chest X-Ray 03/11/24 09:36 IMPRESSION: 1. Airspace opacities in the mid and lower lung zones, consistent with pneumonia. 2. Nodule in right lung upper lobe, consistent with primary bronchogenic carcinoma. 3. Cardiomegaly. Labs Labs: Laboratory Results - last 24 hr 03/13/24 05:15 WBC 7.1 RBC 3.19 L Hgb 9.9 L Hct 31.4 L MCV 98.4 MCH 31.0 MCHC 31.5 L RDW 15.7 H Plt Count 180 MPV 8.6 Sodium 140 Potassium 3.9 Chloride 103 Carbon Dioxide 31 H Anion Gap 6 BUN 47 H D Creatinine 7.40 H Estim Creat Clear Calc 6 Estimated GFR 5 L Glucose 117 H Calcium 7.9 L Phosphorus 5.1 H Albumin 3.3 L
--- NOTE | 2024-03-13 15:22 | P.PNIM_ITS ---
Progress Note: A&P Assessment and Plan (1) Fluid overload: Qualifiers: Hypervolemia type: other Qualified Code(s): E87.79 - Other fluid overload Code(s): E87.70 - Fluid overload, unspecified Status: Acute Assessment and Plan: - Related to missed HD due to change in schedule because of holidays. - Patient had HD yesterday and is scheduled for another session today. - Reports still having SOB. - Nephro managing HD and we appreciate assistance. (2) ESRD on dialysis: Code(s): N18.6 - End stage renal disease; Z99.2 - Dependence on renal dialysis Status: Acute Assessment and Plan: - HD schedule affected by holidays. - Normal schedule for pt M,W,F but missed Thursday due to holiday. - Cr improved post HD yesterday; 9>>5 - HD mgt per qualification engineer, scheduled for session today. 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 - States she was diabetic 10 yrs ago but lost a lot of weight and diabetes med discontinued. - Refusing diabetic meds now. - A1C 7.2 - d'c insulin per patient request. (4) Hypertensive chronic kidney disease with stage 5 chronic kidney disease or end stage renal disease: Code(s): I12.0 - Hypertensive chronic kidney disease with stage 5 chronic kidney disease or end stage renal disease Status: Acute Assessment and Plan: - BP currently trending wnl post HD. - Monitor for now. (5) Type 2 diabetes mellitus with diabetic polyneuropathy: Qualifiers: Diabetes mellitus care home insulin use: without care home use Qualified Code(s): E11.42 - Type 2 diabetes mellitus with diabetic polyneur opathy Code(s): E11.42 - Type 2 diabetes mellitus with diabetic polyneuropathy Status: Acute Assessment and Plan: - Mgt as # 3. Time Spent With Patient Time with patient: 15 - 25 minutes Subjective Date/time seen: 03/13/24 09:22 Patient calm on bedrest and states she had a really difficult time due to SOB. Reports intermittent moist cough episodes with nothing coming out. Interval history: Patient calm on bedrest and looks to be in no acute distress. Review of Systems Review of Systems: All systems reviewed & are unremarkable except as noted in HPI and below Exam Narrative: General: Fair appearing, no acute distress. HEENT: Atraumatic, PERRL, EOM, moist mucosa. NECK: Supple. Lungs: Faint expiratory wheezes with slight crackles to bases. Heart: RRR, Grade II apical murmur. Abdomen: Soft, non-tender, non-distended, +ve BS X4 quadrants. Extremities: Acyanotic, trace edema citlalli. LE. Skin: Warm and dry with no lesions. Neuro: Well oriented. CN II-XII grossly intact. Psych: Pleasant and co-operative. Objective Data Vital Signs Vital Signs: Vital Signs - 24 hr 03/12/24 16:00 03/12/24 16:00 03/12/24 20:00 Temperature 97.8 F 98.3 F Pulse Rate 97 90 84 Respiratory Rate 16 18 Blood Pressure 142/53 H 132/63 Pulse Oximetry 96 96 Oxygen Delivery 03/12/24 20:00 03/12/24 20:55 03/12/24 20:56 Temperature Pulse Rate 81 91 Respiratory Rate 19 Blood Pressure Pulse Oximetry 94 Oxygen Delivery Room Air 03/12/24 21:04 03/12/24 22:00 03/13/24 00:00 Temperature 98.3 F 97.4 F L Pulse Rate 87 89 101 H Respiratory Rate 19 18 18 Blood Pressure 136/42 L 137/44 L Pulse Oximetry 94 90 Oxygen Delivery 03/13/24 00:00 03/13/24 02:04 03/13/24 02:11 Temperature Pulse Rate 96 99 98 Respiratory Rate 19 19 Blood Pressure Pulse Oximetry Oxygen Delivery 03/13/24 04:00 03/13/24 04:00 03/13/24 06:00 Temperature 97.4 F L 97.4 F L Pulse Rate 100 96 101 H Respiratory Rate 18 18 Blood Pressure 151/56 H 151/50 H Pulse Oximetry 92 91 Oxygen Delivery 03/13/24 07:14 03/13/24 08:40 03/13/24 08:50 Temperature 98.1 F 98.1 F Pulse Rate 102 H 103 H 96 Respiratory Rate 24 H 20 18 Blood Pressure 128/42 L 142/69 H Pulse Oximetry 98 100 Oxygen Delivery 03/13/24 08:59 03/13/24 09:15 03/13/24 09:30 Temperature Pulse Rate 96 98 104 H Respiratory Rate Blood Pressure 146/68 H 169/80 H 177/76 H Pulse Oximetry Oxygen Delivery 03/13/24 09:45 03/13/24 10:00 03/13/24 10:15 Temperature Pulse Rate 102 H 99 97 Respiratory Rate Blood Pressure 159/58 H 187/86 H 138/82 Pulse Oximetry Oxygen Delivery 03/13/24 10:30 03/13/24 10:45 03/13/24 11:00 Temperature Pulse Rate 98 94 122 H Respiratory Rate Blood Pressure 155/71 H 164/73 H 150/70 H Pulse Oximetry Oxygen Delivery 03/13/24 11:15 03/13/24 11:30 03/13/24 11:45 Temperature Pulse Rate 96 102 H 120 H Respiratory Rate Blood Pressure 167/74 H 162/85 H 152/69 H Pulse Oximetry Oxygen Delivery 03/13/24 12:00 03/13/24 12:15 03/13/24 12:30 Temperature Pulse Rate 94 107 H 97 Respiratory Rate Blood Pressure 150/73 H 150/78 H 159/74 H Pulse Oximetry Oxygen Delivery 03/13/24 12:43 03/13/24 13:00 03/13/24 13:41 Temperature 98.2 F Pulse Rate 92 93 84 Respiratory Rate 18 20 Blood Pressure 154/71 H 154/70 H Pulse Oximetry 94 Oxygen Delivery 03/13/24 13:45 03/13/24 14:09 Temperature 99.1 F Pulse Rate 97 98 Respiratory Rate 20 20 Blood Pressure 120/47 L Pulse Oximetry 98 Oxygen Delivery Intake/Output Intake/Output: Intake & Output 03/10/24 03/11/24 03/12/24 03/13/24 23:59 23:59 23:59 23:59 Intake Total 440 60 Output Total 965 988 Balance -965 440 -928 Meds/Results Medications: Active Medications Generic Name Dose Route Start Last Admin Trade Name Freq PRN Reason Stop Dose Admin Acetaminophen 650 mg 03/11/24 13:12 03/12/24 20:43 Acetaminophen 325 Mg Tablet PO 650 mg Q4H PRN Administration Fever Acetaminophen 650 mg 03/12/24 16:55 Acetaminophen 325 Mg Tablet PO QID PRN PAIN RATED 1-3 Albuterol 2.5 mg 03/11/24 14:00 03/13/24 13:39 Albuterol Sulfate Neb 2.5 Mg/3 Ml Inh INHALATION 2.5 mg Q6HRT [facility] Administration Atorvastatin Calcium 40 mg 03/13/24 09:00 03/13/24 08:33 Atorvastatin 40 Mg Tablet PO 40 mg DAILY [facility] Administration Bisacodyl 10 mg 03/12/24 16:55 Bisacodyl 10 Mg Suppository RECTAL DAILY PRN constipation Bupropion HCl 150 mg 03/13/24 09:00 03/13/24 08:33 Bupropion Hcl Xl (24 Hr) 150 Mg Tabcr PO 150 mg QAM [facility] Administration Buspirone HCl 5 mg 03/12/24 17:00 03/13/24 08:33 Buspirone Hcl 5 Mg Tablet PO 5 mg BID [facility] Administration Cholestyramine Resin 4 gm 03/13/24 08:00 03/13/24 13:35 Cholestyramine Light 4 Gm Powd.Pack PO 4 gm 0800,1200,1600 [facility] Administration Cyclobenzaprine HCl 5 mg 03/12/24 16:55 03/13/24 09:46 Cyclobenzaprine Hcl 5 Mg Tablet PO 5 mg TID PRN Administration muscle spasm Dextrose 12.5 gm 03/11/24 14:07 Dextrose 50% 25 Gm/50 Ml Syringe IV PUSH PRN PRN Hypoglycemia Protocol Diclofenac Sodium 0 applic 03/12/24 16:55 Diclofenac Sodium 1% 100 Gm Gel (*Bkc) TOPICAL BID PRN knee pain Dicyclomine HCl 20 mg 03/12/24 17:00 03/13/24 13:35 Dicyclomine Hcl 10 Mg Capsule PO 20 mg TID [facility] Administration Ergocalciferol 50,000 units 03/16/24 09:00 Ergocalciferol 50,000 Units Capsule PO We@0900 [facility] Escitalopram Oxalate 10 mg 03/13/24 09:00 03/13/24 08:33 Escitalopram Oxalate 10 Mg Tablet PO 10 mg DAILY [facility] Administration Glucagon 1 mg 03/11/24 14:07 Glucagon For Inj 1 Mg Vial IM PRN PRN Hypoglycemia Protocol Glucose 15 gm 03/11/24 14:07 Glucose Oral Gel 15 Gm Of Glucse In 37.5 Gm Tube PO PRN PRN Hypoglycemia Protocol Heparin Sodium (Porcine) 5,000 units 03/11/24 21:00 03/13/24 10:27 Heparin Sodium 5,000 Units/Ml Vial SUB-Q Not Given Q12HR [facility] Dextrose 1,000 mls @ 100 mls/hr 03/11/24 14:07 Dextrose 5% 1,000 Ml IVPB PRN PRN Hypoglycemia Protocol Ipratropium [place] 0.5 mg 03/11/24 14:00 03/13/24 13:40 Ipratropium Br 0.02% Inh Soln 0.5 Mg/2.5 Ml Vial INHALATION 0.5 mg Q6HRT [facility]KI Administration Levetiracetam 500 mg 03/12/24 21:00 03/13/24 08:33 Levetiracetam 500 Mg Tablet PO 500 mg Q12H [facility] Administration Loperamide HCl 4 mg 03/12/24 16:55 Loperamide Hcl 2 Mg Capsule PO QID PRN loose stool Mirtazapine 30 mg 03/12/24 21:00 03/12/24 20:33 Mirtazapine 30 Mg Tablet PO 30 mg QHS [facility]KI Administration Morphine Sulfate 2 mg 03/11/24 13:12 03/13/24 11:54 Morphine Sulfate (*Crx) 2 Mg/Ml Inj IV PUSH 2 mg Q2H PRN Administration Pain Rated 7-10 Pantoprazole Sodium 40 mg 03/13/24 09:00 03/13/24 08:33 Pantoprazole 40 Mg Tablet PO 40 mg QAM [facility]KI Administration Ropinirole HCl 0.5 mg 03/12/24 17:00 03/13/24 08:33 Ropinirole Hcl 0.5 Mg Tablet PO 0.5 mg BID SUKI Administration Radiology Results: ITS Impressions Chest X-Ray 03/11/24 09:36 IMPRESSION: 1. Airspace opacities in the mid and lower lung zones, consistent with pneumonia. 2. Nodule in right lung upper lobe, consistent with primary bronchogenic carcinoma. 3. Cardiomegaly. Labs Labs: Laboratory Results - last 24 hr 03/13/24 05:15 WBC 7.1 RBC 3.19 L Hgb 9.9 L Hct 31.4 L MCV 98.4 MCH 31.0 MCHC 31.5 L RDW 15.7 H Plt Count 180 MPV 8.6 Sodium 140 Potassium 3.9 Chloride 103 Carbon Dioxide 31 H Anion Gap 6 BUN 47 H D Creatinine 7.40 H Estim Creat Clear Calc 6 Estimated GFR 5 L Glucose 117 H Calcium 7.9 L Phosphorus 5.1 H Albumin 3.3 L Quality VTE Prophylaxis VTE prophylaxis: pharmacologic ordered (Heparin 5000 units subQ q.12 hours.) Hospitalist MIPS Advance Care Plan I have confirmed that the patient's Advanced Care Plan is present, code status is documented, or surrogate decision maker is listed in patient medical record.: Yes Medication Reconciliation I have utilized all available resources to obtain, update and review the patients current medications (includes all prescriptions, OTC, herbals, ca nnabis, and nutritional supplements).: Yes
[2024-03-13] MEDS: HEPARIN SODIUM 5,000 UNITS/ML VIAL 5000 UNITS SUB-Q (20:44)
[2024-03-13] MEDS: MIRTAZAPINE 30 MG TABLET PO (20:45)
[2024-03-14] VITALS (13 sets, daily range): BP systolic 125–142; BP diastolic 45–68; PULSE 86–155; RESP 17–20; TEMP 36.4–36.7; O2SAT 92–97
--- NOTE | 2024-03-14 01:22 | ECG_ITS ---
Test Date: 2024-03-14 01:37:44 Measurements Intervals [place] Rate: 103 P: -42 IN: 144 QRS: -53 QRSD: 94 T: 55 QT: 371 QTc: 487 Interpretive Statements SINUS TACHYCARDIA WITH OCCASIONAL SUPRAVENTRICULAR PREMATURE COMPLEXES PATTERN CONSISTENT WITH PULMONARY DISEASE LEFT ANTERIOR FASCICULAR BLOCK [QRS AXIS <= -45, QR IN I, RS IN II] Compared to ECG 03/11/2024 09:25:42 Sinus rhythm no longer present First degree AV block no longer present Electronically Signed On 03-14-2024 18:16:10 [employer] by Maurice Kelley M.D.
[2024-03-14] MEDS: IPRATROPIUM BR 0.02% INH SOLN 0.5 MG/2.5 ML VIAL INHALATION ×3 (01:52→14:02)
[2024-03-14 02:58] LABS: Hematocrit 30.8 % (37.0-47.0); Hemoglobin 9.6 g/dL (12.0-15.0); Mean Corpuscular HGB Conc 31.2 g/dl (32-36); Mean Corpuscular Hemoglobin 30.7 pg (26-34); Mean Corpuscular Volume 98.4 fl (80-100); Mean Platelet Volume 8.8 fl (7.4-10.4); Platelet Count Result 184 k/mm3 (150-375); Red Blood Count 3.13 M/mm3 (4.2-5.4); Red Cell Distribution Width 15.9 % (11.5-14.5); White Blood Count 6.6 K/mm3 (4.5-10.0)
[2024-03-14 03:12] LABS: Anion Gap 1 mmol/L (4-12); Blood Urea Nitrogen 21 mg/dL (7-17); Calcium 8.4 mg/dL (8.4-10.2); Carbon Dioxide 35 mmol/L (22-30); Chloride 101 mmol/L (98-107); Estimated CRCL calculation 12 ml/min; Estimated Glomerular Filt Rate 11; Glucose 115 mg/dL (65-110); Potassium 3.9 mmol/L (3.4-5.0); Sodium 137 mmol/L (137-145)
[2024-03-14 03:29] LABS: D Dimer 1.01 ug/mL (<0.48)
--- NOTE | 2024-03-14 04:09 | PM.EVENT ---
Event Note Event Note Event Note: I received a call from the patient's nurse at about 01:00 with reports that the patient's heart rate was in the 140s and what appeared to be sinus tachycardia. The patient was asleep at that time an asymptomatic when she was wakened. Other vital signs were stable. She endorses mild dyspnea on exertion though that has been an ongoing issue and is not new. She does not have complaints of chest discomfort, palpitations, or pleuritic pain. Pulmonary embolism is a consideration though seems less likely by history. Check D-dimer and if elevated when adjusted for age, a chest CTA should be considered. Check TSH and T4 as well. Continue telemetry monitoring.
[2024-03-14 04:52] LABS: Free T4 Free Thyroxine Reflex 1.01 ng/dL (0.78-2.19)
[2024-03-14 06:02] LABS: Total Triiodothyronine (T3) 1.26 NG/ML (0.97-1.69)
[2024-03-14] MEDS: ALBUTEROL SULFATE NEB 2.5 MG/3 ML INH INHALATION ×2 (07:53→14:02)
[2024-03-14] MEDS: levETIRAcetam 500 MG TABLET PO (08:54)
[2024-03-14] MEDS: buPROPion HCL XL (24 HR) 150 MG TABCR PO (08:54)
[2024-03-14] MEDS: busPIRone HCL 5 MG TABLET PO (08:54)
[2024-03-14] MEDS: CHOLESTYRAMINE LIGHT 4 GM POWD.PACK PO ×2 (08:54→12:12)
[2024-03-14] MEDS: ESCITALOPRAM OXALATE 10 MG TABLET PO (08:54)
[2024-03-14] MEDS: PANTOPRAZOLE 40 MG TABLET PO (08:54)
[2024-03-14] MEDS: rOPINIRole HCL 0.5 MG TABLET PO (08:54)
[2024-03-14] MEDS: DICYCLOMINE HCL 10 MG CAPSULE 20 MG PO ×2 (08:54→12:12)
[2024-03-14] MEDS: ATORVASTATIN 40 MG TABLET PO (08:54)
[2024-03-14] MEDS: HEPARIN SODIUM 5,000 UNITS/ML VIAL 5000 UNITS SUB-Q (09:07)
--- NOTE | 2024-03-14 09:26 | P.PNNP_ITS ---
Progress Note: A&P Assessment and Plan (1) End stage renal disease: Code(s): N18.6 - End stage renal disease Status: Chronic Assessment and Plan: * HD tomorrow * continue Thu//Thursday outpatient dialysis schedule this week (due to holidays) * follow electrolytes, volume status, and clearance (2) Fluid overload: Qualifiers: Hypervolemia type: other Qualified Code(s): E87.79 - Other fluid overload Code(s): E87.70 - Fluid overload, unspecified Status: Acute Assessment and Plan: * history/presentation more consistent with this * clinical improvement noted with increased ultrafiltration/fluid removal with dialysis * follow respiratory status (3) Pneumonia: Qualifiers: Laterality: left Lung location: upper lobe of lung Pneumonia type: due to unspecified organism Qualified Code(s): J18.9 - Pneumonia, unspecified organism Code(s): J18.9 - Pneumonia, unspecified organism Status: Acute Assessment and Plan: * based on admission imaging * however, clinical presentation not indicative * no leukocytosis * no fevers * no hypoxia * suspect admission symptoms more related to #2 * holding antibiotics at this time (4) Hypertension: Code(s): I10 - Essential (primary) hypertension Status: Chronic Assessment and Plan: * reasonable control at this time * resume home medications * follow trend of hemodynamics (5) Anemia: Code(s): D64.9 - Anemia, unspecified Status: Chronic Assessment and Plan: * due to ESRD * Retacrit with dialysis * follow trend of H/H (6) Crohn's disease: Code(s): K50.90 - Crohn's disease, unspecified, without complications Status: Chronic Assessment and Plan: * chronic issue * loose stools/diarrhea at baseline * continue supportive therapy (7) Diabetes: Code(s): E11.9 - Type 2 diabetes mellitus without complications Status: Chronic Assessment and Plan: * follow accu-cheks * glycemic control per hospitalists Will continue to follow. Subjective Date/time seen: 03/14/24 09:26 Interval history: Follow-up for end stage renal disease on hemodialysis. Chart reviewed -- assuming care from Dr. Joe; tolerated dialysis treatment yesterday without any issues or problems; breathing/respiratory status as well as cough appear to have improved in general; noted tachycardia overnight but was asymptomatic from this issue; no apparent distress noted at the time of my visit. Exam 2 Narrative: General: elderly female in NAD Heart: tachycardic at times; normal S1 and S2; no rub Lungs: clear anteriorly; decreased at bases Abdomen: soft, nontender, nondistended, positive bowel sounds Extremities: no cyanosis or clubbing; no edema Skin: warm and dry Objective Data Vital Signs Vital Signs: Vital Signs Temp Pulse Resp BP Pulse Ox O2 Del Method 03/14/24 08:50 155 H 03/14/24 08:50 92 Room Air 03/14/24 08:15 86 20 03/14/24 08:00 97.6 F 100 18 138/58 L 96 03/14/24 07:54 88 20 03/14/24 07:54 92 Room Air 03/14/24 06:00 97.6 F 102 H 18 125/45 L 95 03/14/24 04:00 101 H 03/14/24 04:00 97.6 F 104 H 18 137/63 95 03/14/24 01:53 106 H 20 03/14/24 01:45 105 H 20 03/14/24 00:00 101 H 03/14/24 00:00 98.1 F 100 18 142/56 H 93 03/13/24 22:00 98.5 F 100 18 149/60 H 92 03/13/24 21:05 89 20 03/13/24 20:55 88 20 03/13/24 20:00 93 03/13/24 20:00 98.8 F 92 18 167/56 H 98 03/13/24 16:00 99.4 F 94 24 H 138/58 L 99 03/13/24 16:00 90 03/13/24 14:09 98 20 03/13/24 13:45 99.1 F 97 20 120/47 L 98 03/13/24 13:41 84 20 03/13/24 13:00 98.2 F 93 18 154/70 H 94 03/13/24 12:43 92 154/71 H 03/13/24 12:30 97 159/74 H 03/13/24 12:15 107 H 150/78 H 03/13/24 12:00 94 03/13/24 12:00 94 150/73 H 03/13/24 11:45 120 H 152/69 H 03/13/24 11:30 102 H 162/85 H Intake/Output Intake/Output: Intake & Output 03/11/24 03/12/24 03/13/24 03/14/24 23:59 23:59 23:59 23:59 Intake Total 440 60 240 Output Total 965 988 Balance -965 440 -928 240 Meds/Results Medications: Active Medications Generic Name Dose Route Start Last Admin Trade Name Freq PRN Reason Stop Dose Admin Acetaminophen 650 mg 03/11/24 13:12 03/12/24 20:43 Acetaminophen 325 Mg Tablet PO 650 mg Q4H PRN Administration Fever Acetaminophen 650 mg 03/12/24 16:55 Acetaminophen 325 Mg Tablet PO QID PRN PAIN RATED 1-3 Albuterol 2.5 mg 03/11/24 14:00 03/14/24 07:53 Albuterol Sulfate Neb 2.5 Mg/3 Ml Inh INHALATION 2.5 mg Q6HRT SUKI Administration Atorvastatin Calcium 40 mg 03/13/24 09:00 03/14/24 08:54 Atorvastatin 40 Mg Tablet PO 40 mg DAILY SUKI Administration Bisacodyl 10 mg 03/12/24 16:55 Bisacodyl 10 Mg Suppository RECTAL DAILY PRN constipation Bupropion HCl 150 mg 03/13/24 09:00 03/14/24 08:54 Bupropion Hcl Xl (24 Hr) 150 Mg Tabcr PO 150 mg QAM SUKI Administration Buspirone HCl 5 mg 03/12/24 17:00 03/14/24 08:54 Buspirone Hcl 5 Mg Tablet PO 5 mg BID SUKI Administration Cholestyramine Resin 4 gm 03/13/24 08:00 03/14/24 08:54 Cholestyramine Light 4 Gm Powd.Pack PO 4 gm 0800,1200,1600 SUKI Administration Cyclobenzaprine HCl 5 mg 03/12/24 16:55 03/13/24 09:46 Cyclobenzaprine Hcl 5 Mg Tablet PO 5 mg TID PRN Administration muscle spasm Dextrose 12.5 gm 03/11/24 14:07 Dextrose 50% 25 Gm/50 Ml Syringe IV PUSH PRN PRN Hypoglycemia Protocol Diclofenac Sodium 0 applic 03/12/24 16:55 Diclofenac Sodium 1% 100 Gm Gel (*Bkc) TOPICAL BID PRN knee pain Dicyclomine HCl 20 mg 03/12/24 17:00 03/14/24 08:54 Dicyclomine Hcl 10 Mg Capsule PO 20 mg TID SUKI Administration Ergocalciferol 50,000 units 03/16/24 09:00 Ergocalciferol 50,000 Units Capsule PO We@0900 [facility] Escitalopram Oxalate 10 mg 03/13/24 09:00 03/14/24 08:54 Escitalopram Oxalate 10 Mg Tablet PO 10 mg DAILY SUKI Administration Glucagon 1 mg 03/11/24 14:07 Glucagon For Inj 1 Mg Vial IM PRN PRN Hypoglycemia Protocol Glucose 15 gm 03/11/24 14:07 Glucose Oral Gel 15 Gm Of Glucse In 37.5 Gm Tube PO PRN PRN Hypoglycemia Protocol Heparin Sodium (Porcine) 5,000 units 03/11/24 21:00 03/14/24 09:07 Heparin Sodium 5,000 Units/Ml Vial SUB-Q 5,000 units Q12HR SUKI Administration Dextrose 1,000 mls @ 100 mls/hr 03/11/24 14:07 Dextrose 5% 1,000 Ml IVPB PRN PRN Hypoglycemia Protocol Ipratropium [place] 0.5 mg 03/11/24 14:00 03/14/24 07:53 Ipratropium Br 0.02% Inh Soln 0.5 Mg/2.5 Ml Vial INHALATION 0.5 mg Q6HRT SUKI Administration Levetiracetam 500 mg 03/12/24 21:00 03/14/24 08:54 Levetiracetam 500 Mg Tablet PO 500 mg Q12H SUKI Administration Loperamide HCl 4 mg 03/12/24 16:55 Loperamide Hcl 2 Mg Capsule PO QID PRN loose stool Mirtazapine 30 mg 03/12/24 21:00 03/13/24 20:45 Mirtazapine 30 Mg Tablet PO 30 mg QHS SUKI Administration Morphine Sulfate 2 mg 03/11/24 13:12 03/13/24 21:02 Morphine Sulfate (*Crx) 2 Mg/Ml Inj IV PUSH 2 mg Q2H PRN Administration Pain Rated 7-10 Pantoprazole Sodium 40 mg 03/13/24 09:00 03/14/24 08:54 Pantoprazole 40 Mg Tablet PO 40 mg QAM SUKI Administration Ropinirole HCl 0.5 mg 03/12/24 17:00 03/14/24 08:54 Ropinirole Hcl 0.5 Mg Tablet PO 0.5 mg BID SUKI Administration Radiology Results: ITS Impressions Chest X-Ray 03/11/24 09:36 IMPRESSION: 1. Airspace opacities in the mid and lower lung zones, consistent with pneumonia. 2. Nodule in right lung upper lobe, consistent with primary bronchogenic carcinoma. 3. Cardiomegaly. Labs Labs: Laboratory Tests 03/14/24 02:39 03/14/24 02:39 Calcium 8.4 TSH (Reflex) 16.800 H Free T4 1.01 Total T3 1.26
--- NOTE | 2024-03-14 12:57 | PM.DS ---
DS: Admitting Diagnosis Discharge Date 03/14/34 Admitting Diagnosis Shortness of Breath DS: Discharge Diagnosis Discharge Diagnosis (1) Fluid overload: Qualifiers: Hypervolemia type: other Qualified Code(s): E87.79 - Other fluid overload Code(s): E87.70 - Fluid overload, unspecified Status: Acute Assessment and Plan: - Related to missed HD due to change in schedule because of holidays. - Patient had HD yesterday and is scheduled for another session tomorrow outpatient. - Reports much improvement in SOB. - Nephro assisted in managing pt HD. (2) ESRD on dialysis: Code(s): N18.6 - End stage renal disease; Z99.2 - Dependence on renal dialysis Status: Acute Assessment and Plan: - HD schedule affected by holidays and pt missed a session as location was closed. - Normal schedule for pt M,W,F but missed Thursday due to holiday. - HD managed by industrial maintenance manager inpatient. (3) Type 2 diabetes mellitus with diabetic chronic kidney disease: Qualifiers: Diabetes mellitus exterminator termite insulin use: without exterminator termite use Chronic kidney disease stage: on chronic dialysis Qualified Code(s): E11.22 - Type 2 diabetes mellitus with diabetic chronic kidney disease; N18.6 - End stage renal disease; Z99.2 - Dependence on renal dialysis Code(s): E11.22 - Type 2 diabetes mellitus with diabetic chronic kidney disease Status: Acute Assessment and Plan: - Pt reported she was not diabetic. - Stated she was diabetic 10 yrs ago but lost a lot of weight and diabetes med discontinued. - Refused diabetic meds inpatient. - A1C 7.2 (4) Hypertensive chronic kidney disease with stage 5 chronic kidney disease or end stage renal disease: Code(s): I12.0 - Hypertensive chronic kidney disease with stage 5 chronic kidney disease or end stage renal disease Status: Acute Assessment and Plan: - BP well controlled inpatient. (5) Type 2 diabetes mellitus with diabetic polyneuropathy: Qualifiers: Diabetes mellitus exterminator termite insulin use: without long-term use Qualified Code(s): E11.42 - Type 2 diabetes mellitus with diabetic polyneuropathy Code(s): E11.42 - Type 2 diabetes mellitus with diabetic polyneuropathy Status: Acute Assessment and Plan: - Refused diabetic medications. Plan Discharge home. DS: Summary Hospital Course Reason for hospitalization: Shortness of Breath Hospital Course: Patient presented to the ER with reports of SOB that started the day before she presented. Patient reported that her normal dialysis days were but she had missed Thursday because the dialysis center was closed for the holiday. She was observed in the ER and initial work-up labs showed a Creatinine of 9. Nephrology was consulted and after evaluation, she was noted to be in fluid overload. Patient was also having episodes of moist coughs likely from the fluid overload. CXR showed Airspace opacities in the mid and lower lung zones, consistent with pneumonia. Nodule in right lung upper lobe, consistent with primary bronchogenic carcinoma and Cardiomegaly. Patient was just discharged from this facility about 3 weeks prior to this presentation, when she was treated for PNA and completed antibiotics therapy. The opacities noted on the current CXR appear to be residuals from her last infection, as the patient did not appear to be undergoing any infectious process, with no fevers or white count. Patient had also been seen by the Laboratory Worker with regards to her lung nodules, and outpatient PET SCAN was recommended and already done by patient. Patient reported that she will wait at least 6 months and decide on Biopsy or treatment. After 2 sessions of hemodialysis patient reports feeling much better and SOB is resolved. Pt wants to be discharged so that she can get on her usual HD schedule outpatient. She has been cleared for discharge by the industrial maintenance manager and pt is medically stable for discharge with no acute distress noted or reported prior to discharge. All her other chronic conditions remained stable inpatient, including her blood pressure.Pt A1C was 7.2 but she refused diabetes medications, stating she was taken off years ago when she lost a lot of weight. Status at Discharge Functional status at discharge: independent ambulation Overall status at discharge: patient is back to baseline Time Spent with Patient Time attestation: Total time spent providing and/or coordinating discharge services: Time spent: Greater than 30 minutes Exam Narrative: General: Well appearing, no acute distress. HEENT: Atraumatic, PERRL, EOM, moist mucosa. NECK: Supple. Lungs: Faint crackles to bases otherwise clear. Heart: RRR, Grade II apical murmur. Abdomen: Soft, non-tender, non-distended, +ve BS X4 quadrants. Extremities: Acyanotic, no edema citlalli. LE. Skin: Warm and dry with no lesions. Neuro: Well oriented. CN II-XII grossly intact. Psych: Pleasant and co-operative. DS: Data Data Completed and Pending Labs on day of discharge: Labs from last 24 hours 03/14/24 02:39 WBC 6.6 RBC 3.13 L Hgb 9.6 L Hct 30.8 L MCV 98.4 MCH 30.7 MCHC 31.2 L RDW 15.9 H Plt Count 184 MPV 8.8 D-Dimer 1.01 H Sodium 137 Potassium 3.9 Chloride 101 Carbon Dioxide 35 H Anion Gap 1 L BUN 21 H D Creatinine 4.00 H Estim Creat Clear Calc 12 Estimated GFR 11 L Glucose 115 H Calcium 8.4 TSH (Reflex) 16.800 H Free T4 1.01 Total T3 1.26 Discharge Plan Discharge Attending physician on discharge: Mendez Chen Consulting providers: Jamshid Joe Discharging Clinician: Wally Naranjo Anticipated Discharge Date/Time: 03/14/24 13:30 Patient Disposition: Home, Self-Care Activity: as tolerated Diet: heart healthy and renal Patient Instructions: Antibiotic Form Patient Language: Tajik Stand Alone Forms: General Discharge Information Follow-up/Referrals: Jamshid Joe MD [Physician] - 1 Week Justen Singer MD [Primary Care Provider] - 1 Week Discharge Medications: Continued dicyclomine 20 mg tablet 20 mg PO TID Qty: 90 5RF loperamide 2 mg tablet 4 mg PO QID PRN (Reason: loose stool) Qty: 100 5RF Cholestyramine Light 4 gram powder 4 g PO TID Qty: 239.4 5RF Rx Instructions: administer w/meal; avoid other meds within 1hr before or 4-6hr after dose escitalopram oxalate 10 mg tablet 10 mg PO DAILY Qty: 30 5RF acetaminophen 325 mg capsule 650 mg PO QID PRN (Reason: pain) bisacodyl 10 mg suppository 10 mg RECTAL DAILY PRN (Reason: constipation) ergocalciferol (vitamin D2) 1,250 mcg (50,000 unit) capsule 1,250 mcg PO WEEKLY Patient Comments: On Wednesdays buspirone 10 mg tablet 5 mg PO BID cyclobenzaprine 5 mg tablet 5 mg PO TID PRN (Reason: muscle spasm) Qty: 10 0RF atorvastatin 40 mg tablet 40 mg PO DAILY Qty: 90 2RF bupropion HCl 150 mg tablet extended release 24 hr 150 mg PO QAM Qty: 90 1RF diclofenac sodium [Voltaren Arthritis Pain] 1 % gel 2 g topical BID PRN (Reason: knee pain) Qty: 200 5RF Rx Instructions: apply to single elbow, wrist or hand; for hand includes palm/fingers/back of hand levetiracetam 500 mg tablet 500 mg PO Q12H Qty: 180 1RF mirtazapine 30 mg tablet 30 mg PO QHS Qty: 90 1RF pantoprazole 40 mg tablet,delayed release (DR/EC) 40 mg PO QAM Qty: 90 1RF ropinirole 0.5 mg tablet 0.5 mg PO BID Qty: 180 1RF hydrocodone-acetaminophen 5-325 mg tablet 1 tablet PO QID PRN (Reason: pain) Qty: 120 0RF levofloxacin 500 mg tablet 500 mg PO DAILY Qty: 10 0RF Patient Comments: Until 03/20/24 Date of admission: 03/11/24 13:12 Primary Care Provider: Justen Singer Admitting Provider: Gem Bradley Attending physician on admission: Gem Bradley Condition: Stable Quality If No VTE Prophylaxis Answer both mechanical and pharmacologic: Reason no mechanical VTE proph: low risk/not indicated Reason no pharmacologic proph: low risk/not indicated Hospitalist MIPS Heart Failure (Exclusion) Patient has history of Heart Transplant or Left Ventricular Assistive Device?: No IF YES, STOP HERE Heart Failure (Qualifier) Patient has current or prior documentation of LVEF less than or equal to 40%, or mod/servere depressed LVSF?: No IF NO, STOP HERE
== END 2024-03-14 16:00 | DRG 640 ==
LOC: ANHED 13:11 → ANH2MED 13:59
PROVIDERS: Emergency Medicine; Internal Medicine Nephrology; Physician Assistant; Admitting Provider Internal Medicine; Emergency Provider Family Medicine; PCP Family Medicine Adolescent Medicine; Visit Provider Nurse Practitioner Adult Health
DX: E87.70 Fluid overload, unspecified (principal); N18.6 End stage renal disease; I12.0 Hypertensive chronic kidney disease with stage 5 chronic kidney disease or end stage renal disease; K50.90 Crohn's disease, unspecified, without complications; D63.1 Anemia in chronic kidney disease; E03.9 Hypothyroidism, unspecified; E11.22 Type 2 diabetes mellitus with diabetic chronic kidney disease; E11.42 Type 2 diabetes mellitus with diabetic polyneuropathy; F41.9 Anxiety disorder, unspecified; F32.A Depression, unspecified; G47.33 Obstructive sleep apnea (adult) (pediatric); I25.10 Atherosclerotic heart disease of native coronary artery without angina pectoris; R91.8 Other nonspecific abnormal finding of lung field; Z95.5 Presence of coronary angioplasty implant and graft; Z99.2 Dependence on renal dialysis; Z20.822 Contact with and (suspected) exposure to COVID-19; Z85.528 Personal history of other malignant neoplasm of kidney; Z89.422 Acquired absence of other left toe(s); Z89.421 Acquired absence of other right toe(s); Z90.49 Acquired absence of other specified parts of digestive tract; Z90.5 Acquired absence of kidney; Z87.891 Personal history of nicotine dependence; Z66 Do not resuscitate
CPT/HCPCS: 36415; 71045; 80048; 80053; 80069; 82948; 84145; 84439; 84443; 84480; 85025; 85027; 85380; 86706; 87340; 87637; 93005; 94640; 99285; A9270; G0257; J1644; J2270; J7030; Q5105

== ENCOUNTER 2024-04-12 08:54 | Outpatient (CLI) | payer MEDICARE, SELFPAY ==
[2024-04-01 16:10] VITALS: BMI 30.8
--- NOTE | 2024-04-01 16:11 | PC.NURSE ---
Pre Radiology instructions Report to the outpatient murphy howard on date __04/12/24___ at time __9:00AM for procedure Time: _11:00AM___ YOU MAY BE MONITORED AT HOSPITAL FOR UP TO 4 HOURS AFTER YOUR PROCEDURE. A visitor will be allowed to accompany the patient into the hospital. You and your visitor will be asked to self-screen and do not enter if you have any COVID symptoms. A mask is OPTIONAL within the hospital. Patients are to have no food or drink 6 hours prior to procedure time Driving will be restricted after the procedure, you must have a person to drive you home. Labs will be drawn in preop area and once reviewed, you will be taken to radiology area for procedure. When the procedure is completed, you will be taken to outpatient where you will be monitored for several hours. You may have one visitor in this area. Other than holding anti-coagulants, patient may take other medication(s) as scheduled. Prior to your appointment date patients are instructed to hold anti-coagulants after discussing with ordering provider to stop. If unable to discontinue anti-coagulants please notify radiologist. ? No aspirin or warfarin (Coumadin) for 7 days prior to the procedure. ? No clopidogrel (Plavix), ticagrelor (Brilinta), prasugrel (Effient) or dabigatran (Pradaxa) for 5 days prior to the procedure. ? No rivaroxaban (Xarelto), apixaban (Eliquis), dipyridamole (Aggrenox or Persantine) or cilostazol (Pletal) for 2 days prior to the procedure. Medications to discontinue per physician: ____NONE____ Date to take last dose: Please leave all valuables, including medications, at home the day of procedure. The hospital will not accept responsibility for valuables. Wear comfortable, loose fitting clothing.? Follow any additional instructions given to you from ordering provider. Telephone instructions given to ____PATIENT/ASSISTED STAFF and asked if any additional questions and then verbalized understanding. Patient advised to call scheduling provider office or registration scheduling [phone] if any additional questions.
[2024-04-12] VITALS (10 sets, daily range): BP systolic 110–143; BP diastolic 55–85; PULSE 81–91; RESP 14–20; TEMP 36.7; O2SAT 95–100
--- NOTE | ~2024-04-12 | CT_ITS ---
EXAMINATION: CT biopsy lung w/imaging DATE: 04/12/2024 12:40 INDICATION: PET Positive lesion in the right upper lobe. TECHNIQUE: The procedure including the risks, benefits, and alternatives was discussed with the patie nt. Risks discussed included bleeding, infection, pneumothorax, hemoptysis, and nontargeted biopsy. The patient was brought to the CT scanner and placed in the supine position on the CT table. A timeout was then performed as per protocol. Limited scan of the chest demonstrated the known 21 mm right upper lobe nodule, as well as the previo usly identified nodules within the right lower lobe. Marking of the overlying skin was made utilizing the shortest distance for adequate sampling. The right anterior lateral chest wall was then prepped and draped in the standard sterile fashion. 1% lidocaine without epinephrine was utilized for soft tissue analgesia. A 17-gauge introducer was then advanced through the anterior chest wall and directly into the PET pos itive abnormality within the right chest. Utilizing an 18-gauge biopsy device multiple specimens were obtained and placed immediately into form minna for pathologic evaluation. Post sampling imaging was then performed once all devices were removed which demonstrated trace peril esional hemorrhage without right-sided pneumothorax. A sterile dressing were applied The patient was then transported to the recovery area in stable condition. FINDINGS: Dedicated CT images during the biopsy demonstrate the introducer to be located centrally wi thin the right upper lobe nodule. 2 specimens were then obtained. After multiple episodes of coughing, the introducer inadvertently withdrew from the lesion, located i n a more cranial position. The introducer was then readjusted where additional specimens were obtaine d. IMPRESSION: 1. Technically successful CT-guided core biopsy of a 21 mm PET positive right upper lobe lesion, as d etailed above. No immediate complications were encountered. Pathology is pending. Reviewed, dictated and finalized at location A. D CANE SCALER HELPER IMPRESSION: 1. Technically successful CT-guided core biopsy of a 21 mm PET positive right u pper lobe lesion, as detailed above. No immediate complications were encountered. Pathology is pending.
--- NOTE | ~2024-04-12 | XR_ITS ---
CHEST RADIOGRAPH CLINICAL HISTORY: S/P RT LUNG BIOPSY . COMPARISON: 02/17/2024 TECHNIQUE: Single portable view of the chest. FINDINGS The cardiomediastinal silhouette is unremarkable. Trace perilesional hemorrhage within the right lateral upper lobe, consistent with biopsy. The right lung is fully inflated. IMPRESSION: No pneumothorax following right-sided lung biopsy Reviewed, dictated and finalized at location A. ER CRIMINAL
--- NOTE | ~2024-04-12 | XR_ITS ---
CHEST RADIOGRAPH CLINICAL HISTORY: post R lung biopsy . TECHNIQUE: Single portable view of the chest. FINDINGS The cardiomediastinal silhouette is unremarkable. Trace perilesional hemorrhage system with patient's history. The right lung is fully inflated. The left lung is clear. IMPRESSION: No pneumothorax following right lung biopsy, as detailed above Reviewed, dictated and finalized at location A. SERVICE COORDINATOR
--- OUTSIDE RECORDS SUMMARY | 2024-04-12 09:15 | XMS_ITS | Clinical Summary ---
Author Organization [facility] Address [address] [place] [address] Care Team Providers Care Scratcher Tender Name Role Phone Justen Singer MD Primary Care Prov ider Jamshid Joe MD Unavailable [phone] Alex Edgar MD Unavailable [phone] Allergies Active Allergy Reactions Criticality Noted Date Comments Cortisone Shortness of breath High Penicillins Shortness of breath High Medications allopurinol (ZYLOPRIM) 300 mg tablet Take 1 tablet by mouth daily. 07/21/19 09 Active aspirin 325 mg tablet Take 1 tablet by mouth daily. 02/15/20 09 Active busPIRone (BUSPAR) 10 mg tabletIndications:Gen eralized Anxiety Disorder Take 2 tablets by mouth daily Active glimepiride (AMARYL) 4 mg tabletIndications:typ e 2 diabetes mellitus Take 1.5 tablets by mouth 2 (two) times a day. 05/08/19 12 Active ferrous sulfate 325 mg (65 mg of elemental iron) tabletIndications:Iro n Deficiency Anemia Take 1 tablet by mouth daily. 07/21/19 09 Active multivit with min-folic acid 200 mcg tablet,chewable Take 1 tablet/chew tab by mouth daily. Active nitroglycerin (NITROSTAT) 0.[address] 1 tablet under the tongue as needed. 07/21/[address] (PROTONIX) 40 mg EC tablet Take 1 tablet by mouth daily. 11/15/19 09 Active simvastatin (ZOCOR) 10 mg tablet Take 1 tablet by mouth daily 11/15/19 09 Active sertraline (ZOLOFT) 100 mg tablet Take 1 tablet by mouth daily 02/29/20 13 Active vitamin B complex vit C no.4 (SUPER B COMPLEX + C ORAL) Take 1 tablet by mouth daily. Active ONETOUCH ULTRA BLUE TEST STRIP strip TEST ONCE D 1 07/17/19 18 Active metoprolol tartrate (LOPRESSOR) 50 mg immediate release tablet Take 50 mg by mouth 2 (two) times a day 1 06/24/19 18 Active oxyCODONE-acetaminoph en (PERCOCET) 7.5-325 mg per tabletIndications:Junie n TK 1 T PO TID PRN 0 07/01/19 18 Active tobramycin-dexamethas one (TOBRADEX) ophthalmic solution INSTILL 1 DROP INTO THE OD 4 TIMES A DAY 0 07/22/19 18 Active cyanocobalamin (Vitamin B-12) 500 mcg tabletIndications:Pre vention of Vitamin B12 Deficiency Take 500 mcg by mouth daily Active acetaminophen ER (TYLENOL) 650 mg 8 hr tablet Take 650 mg by mouth every 8 (eight) hours as needed for pain Active levothyroxine (SYNTHROID) 75 mcg tablet Take 75 mcg by mouth barytes grinder before breakfast Active Vitamin D2 1,250 mcg (50,000 unit) capsule Take 1 capsule by mouth once a week 11/22/19 21 Active sevelamer (RENVELA) 800 mg tabletIndications:[place] al Osteodystrophy with Hyperphosphatemia Take 800 mg by mouth 3 (three) times a day with meals Active oxybutynin XL (DITROPAN XL) 15 mg 24 hr tablet Take 15 mg by mouth daily Active amLODIPine (NORVASC) 2.5 mg tablet Take 2.5 mg by mouth daily 04/18/19 23 Active vitamin B complex (SUPER B-50 COMPLEX ORAL) Super B Complex Active lisinopriL (PRINIVIL,ZESTRIL) 40 mg tablet Take 40 mg by mouth daily 03/19/19 23 Active rOPINIRole (REQUIP) 0.5 mg tablet Take 0.5 mg by mouth 2 (two) times a day Active Active Problems Problem Noted Date Diagnosed Date Multiple pulmonary nodules 08/15/2014 Nocturia 05/24/2012 Splitting of urinary stream 05/24/2012 Diabetes mellitus 05/24/2012 Type 2 diabetes mellitus 05/24/2012 Overview (06/25/2017): Description: age of onset was 57 years old in 2002 Crohn's disease ([facility]) 05/24/2012 Calculus of kidney 05/24/2012 Hypertension 05/24/2012 Hyperlipidemia 07/29/2010 Overview (06/25/2017): Description: Hyperlipidemia Chronic coronary artery disease 07/29/2010 Overview (06/25/2017): Description: Multi-vessel Coronary Artery Stenosis 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 End stage renal disease ([facility]) ESRD (end stage renal disease) ([facility]) Immunizations Name Administration Dates Next Due Influenza, Trivalent, Preservative Free, Intramu scular 03/26/2012 Surgical History Surgery Date Site/Laterality Comments IN LAPAROSCOPY SURG PARTIAL NEPHRECTOMY Left Kidney Surgery Laparoscopic Partial Nephrectomy - oncocytoma (Added by TW Conv) APPENDECTOMY Appendectomy - (Added by TW Conv) HYSTERECTOMY Hysterectomy - (Added by TW Conv) FOOT FRACTURE SURGERY Treatment Of Foot Fracture - 2004 (Added by TW Conv) CHOLECYSTECTOMY Cholecystectomy - 2005 (Added by TW Conv) IN PRQ TRLUML CORONARY STENT W/ANGIO ONE ART/BRNCH Cath Placement Of Stent 1 - (Added by TW Conv) Medical History Medical History Date Comments Personal history of other di seases of the circulatory system History of hypertension - (A dded by TW Conv) Personal history of other en docrine, nutritional and metabolic disease History of diabetes mellitus - (Added by TW Conv) Personal history of other sp ecified conditions History of chest pain - (Add ed by TW Conv) Benign neoplasm of kidney Renal oncocytoma - (Added by TW Conv) Crohn's disease without comp lication ([facility]) (HCC) Crohn's disease - (Added by TW Conv) Calculus of kidney Nephrolithias is - (Added by TW Conv) Atherosclerotic heart diseas e of [place] coronary artery without angina pectoris Arteriosclerot ic heart disease (ASHD) - Multi-vessel Coronary Artery Stenosis (Added by TW Conv) Hyperlipidemia Hyperlipidemia - Hyperlipidemia (Added by TW Conv) Family History Medical History Relation Name Comments Heart attack Father Family history of heart attack - (Added by TW Conv) Thyroid disease Other 1 Thyroid Diso rder - sister (Added by TW Conv) Heart disease Other 2 Heart Disease - mother and father (Added by TW Conv) Cancer Other 3 Cancer - mother and father (Added by TW Conv) Stroke Other 4 Stroke Syndrome - mother and father (Added by TW Conv) Relation Name Status Comments Father Other 1 Other 2 Other 3 Other 4 Social History Tobacco Use Types Packs/Day Years Used Date Smoking Tobacco: Former Smokeless Tobacco: Never Tobacco Cessation:Counseling Given: Not Answered Comments Unknown Sex and Gender Information Value Date Recorded Sex Assigned at Not on file Legal Sex Female 6:58 AM HEAD HOLDER Gender Identity Not on file Sexual Orientation Not on file Obstetrics History Last Filed Vital Signs Vital Sign Reading Time Taken Comments Blood Pressure 178/70 05/06/2022 9:26 AM HEAD HOLDER Pulse 73 05/06/2022 9:26 AM HEAD HOLDER Temperature 36.6 ??C (97.8 ??F) 08/26/2021 2:10 PM CD T Respiratory Rate 18 03/19/2020 8:41 PM HEAD HOLDER Oxygen Saturation 90% 05/06/2022 9:26 AM HEAD HOLDER Inhaled Oxygen Concentration - - Weight 73.9 kg (163 lb) 05/06/2022 9:26 AM HEAD HOLDER Height 160 cm (5' 3 ) 05/06/2022 9:26 AM HEAD HOLDER Body Mass Index 28.87 05/06/2022 9:26 AM HEAD HOLDER Plan of Treatment Health Maintenance Due Date Last Done Comments Albumin Creatinine Ratio, Urine 1945 Depression Screening 1945 Fall Risk Assessment 1945 Osteoporosis Screening-Bone Density Scan 1945 Dilated Eye Exam 1945 Foot Exam 1945 DTaP/Tdap/Td Vaccine (1 - Tdap) 1956 Hepatitis B Screening 05/30/1963 Zoster Vaccine (1 of 2) 05/30/1995 Well Visit 65+ 2010 Pneumococcal vaccine 65+ (2 of 2 - PPSV23 or PCV20) 09/04/2020 07/10/2020 Hemoglobin A1C 05/23/2021 11/23/2020 Lipid Panel 11/23/2021 11/23/2020 eGFR 11/23/2021 11/23/2020, 01/0 06/2020, 03/15/2020 Covid-19 Vaccine (2023-2 5 season) 2023 06/06/2020, 05/15/2020 Influenza Vaccine (#1) 2023 , 11/23/2019, 01/06/2019, Additional history exists Hepatitis C Screening Completed 11/23/2020 Procedures Procedure Name Priority Date/Time Associated Diagnosis Comments HEPATITIS C ANTIBODY Routine 11/23/2020 12:05 PM CDT End stage renal disease (CMS/HCC) (HCC) EGFR Routine 11/23/2020 12:05 PM CDT End stage renal disease (CMS/HCC) (HCC) HEMOGLOBIN A1C Routine 11/23/2020 12:05 PM CDT End stage renal disease (CMS/HCC) (HCC) LIPID PANEL Routine 11/23/2020 12:05 PM CDT End stage renal disease (CMS/HCC) (HCC) from Last 3 Months or Most Recently Relevant to Health Maintenance Results * (ABNORMAL) eGFR (11/23/2020 12:05 PM CDT) [facility] eGFR 8(L) 90 - 130 mL/min/1.7 3 m2 [facility] Comment: Interpretive Data Reference Interval Normal ?>/= 90 mL/min/1.73m2 Mildly decreased* ? 60 - 89 mL/min/1.73m2 Mildly to moderately decreased ?45 - 59 mL/min/1.73m2 Moderately to severely decreased ??30 - 44 mL/min/1.73m2 Severely decreased ?15 - 29 mL/min/1.73m2 Kidney Failure ?< 15 ??mL/min/1.73m2 *Relative to young adult level Estimated glomerular filtration rate is determined by the CKD-EPI equation recommended by the National Kidney Foundation (KDIGO 2012 Clinical Practice Guideline for the Evaluation and Management of Chronic Kidney Disease. Kidney Intnl Suppl Mar 2012;3:1). The CKD-EPI equation should not be used for patients with unstable renal function and has not been validated in children and those over 70. Current interpretive data was last reviewed 2020 Blood 11/23/2020 12:0 5 PM CDT 11/23/2020 12:24 PM CDT Jani Rose MD LAB BLOOD ORDERABLES Final Result Performing Organization Address [facility] Co de Phone Number [facility] [place] [address] * Hepatitis C antibody (11/23/2020 12:05 PM CDT) Hep C Ab Nonreactive Nonreactive [facility] Comment:Antibodies to HCV no t detected. Does NOT exclude the possibility of recent exposure to HCV. Blood 11/23/2020 12:0 5 PM CDT 11/23/2020 12:20 PM CDT Jani Rose MD LAB MICROBIOLOGY - GENERAL ORDERABLES Edited Result - Final Performing Organization Address [facility] de Phone Number [facility] [place] [address] * (ABNORMAL) Hemoglobin A1c (11/23/2020 12:05 PM CDT) Hgb A1C 6.1(H) 4.0 - 5.6 % [facility] Estimated Average Glucose 128 mg/dL [facility] Comment: The ADA recommends reporting an estimated Average Glucose (eAG) with all Hemoglobin A1c results using the equation derived from a study of 507 normal and diabetic adults. ??Minority populations were underrepresented and children were not included. ?? (Diabetes Care 2020; 43(S1): S66-S76). ??The eAG is not equivalent to a fasting glucose. Blood 11/23/2020 12:0 5 PM CDT 11/23/2020 12:20 PM CDT us Jani Rose MD LAB BLOOD ORDERABLES Final Result [facility] Department [place] [address] * (ABNORMAL) Lipid panel (11/23/2020 12:05 PM CDT) Cholesterol 148 30 - 199 mg/dL [facility] Comment: Interpretive Data Ages < or = 19 years ??Acceptable: ? <170 mg/dL ??Borderline high: ??170-199 mg/dL ??High: ? >or= 200 mg/dL Ages > or = 20 years ??Desirable: ?<200 mg/dL ??Borderline high: ??200-239 mg/dL ??High: ? >or= 240 mg/dL Literature References: 1. Expert Panel on Integrated Guidelines for Cardiovascular Health and Risk Reduction in Children and Adolescents. Pediatrics 2011;128:S213 2. NCEP Expert Panel. Circulation 2004;110:227 Current Interpretive Data was last revised on 2017. Triglycerides 303(H) <=149 mg/dL [facility] Comment: Interpretive Data Ages < or = 9 years ??Acceptable: ? <75 mg/dL ??Borderline high: ??75-99 mg/dL ??High: ? >or= 100 mg/dL Ages 10 to 20 years ??Acceptable: ? <90 mg/dL ??Borderline high: ??90-129 mg/dL ??High: ? >or= 130 mg/dL Ages > or = 20 years ??Desirable: ?<150 mg/dL ??Borderline high: ??150-199 mg/dL ??High: ? 200-499 mg/dL ?Very high: ?? >or= 499 mg/dL Literature References: 1. Expert Panel on Integrated Guidelines for Cardiovascular Health and Risk Reduction in Children and Adolescents. Pediatrics 2011;128:S213 2. NCEP Expert Panel. Circulation 2004;110:227 Current Interpretive Data was last revised on 2017. HDL 41 >=40 mg/dL [facility] Comment: Interpretive Data Ages < or = 19 years ??Acceptable: ? >45 mg/dL ??Borderline low: ?? 40-45 mg/dL ??Low: ? <40 mg/dL Ages > or = 20 years ??Desirable: ?>or= 60 mg/dL ??Low: ? <40 mg/dL Literature References: 1. Expert Panel on Integrated Guidelines for Cardiovascular Health and Risk Reduction in Children and Adolescents. Pediatrics 2011;128:S213 2. NCEP Expert Panel. Circulation 2004;110:227 Current Interpretive Data was last revised on 2017. LDL, calculated 46 <=129 mg/dL [facility] Comment: Interpretive Data Ages < or = 19 years ??Acceptable: ? <110 mg/dL ??Borderline high: ??110-129 mg/dL ??High: ?>or= 130 mg/dL Ages > or = 20 years ??Optimal: ? <100 mg/dL ??Near optimal: ?100-129 mg/dL ??Borderline high: ?? 130-159 mg/dL ??High: ?>160 mg/dL Literature References: 1. Expert Panel on Integrated Guidelines for Cardiovascular Health and Risk Reduction in Children and Adolescents. Pediatrics 2011;128:S213 2. NCEP Expert Panel. Circulation 2004;110:227 Current Interpretive Data was last revised on 2017. Non-HDL Cholesterol 107 mg/dL [facility] Comment: Interpretive Data Ages < or = 19 years ??Acceptable: ?<120 mg/dL ??Borderline high: ??120-144 mg/dL ??High: ?>145 mg/dL Ages > or = 20 years ??When triglycerides are >200 mg/dL, Non-HDL cholesterol is a secondary target of ? therapy with treatment goals that are 30 mg/dL greater than the LDL cholesterol target. ? Literature References: 1. Expert Panel on Integrated Guidelines for Cardiovascular Health and Risk Reduction in Children and Adolescents. Pediatrics 2011;128:S213 2. NCEP Expert Panel. Circulation 2004;110:227 Current Interpretive Data was last revised on 2017. Chol/HDL ratio 4 [facility] Blood 11/23/2020 12:0 5 PM CDT 11/23/2020 12:20 PM CDT us Jani Rose MD LAB BLOOD ORDERABLES Final Result [facility] Department [place] [address] from Last 3 Months or Most Recently Relevant to Health Maintenance Insurance MEDICARE [facility] MEDICARE [facility] MEDICARE [facility] Care Teams Scratcher Tender Relationship Specialty Start Date End Date Justen Singer MD [address] [place] [address] PCP - General Family Medicine 08/27/20 Jamshid Joe MD [address] [place] [id number] Referring Physician Nephrology 10/08/20 Alex Edgar MD [address] [place] [address] Referring Physician Cardiology 10/08/20
--- OUTSIDE RECORDS SUMMARY | 2024-04-12 09:15 | XMS_ITS | Clinical Summary ---
Author Organization [facility] Address [address], [place] [address] Phone Care Team Providers Care Oval Or Circular Glass Cutter Name Role Phone Justen Bonds MD Primary Care Provider [phone] Allergies Active Allergy Reactions Criticality Noted Date Comments Cortisone Shortness of breath High 01/12/2019 Penicillins Shortness of breath High 01/12/2019 Other reaction(s): Unknown Prednisone 01/12/2019 Other reaction(s): Unknown Medications Medication Sig Dispensed Refills Start Date End Date Status Multiple Vitamins-Minerals (MULTIVITAL-M PO) Take 1 tablet by mouth Active allopurinol (ZYLOPRIM) 300 MG tablet Take 1 tablet by mouth 07/20/2008 Active aspirin 81 MG tablet daily Acti ve cyanocobalamin (V-R VITAMIN B-12) 500 MCG tablet Take 500 mcg by mouth daily Active glimepiride (AMARYL) 4 MG tablet Take 1.5 tablets by mouth 2 times daily 05/08/2011 Active nitroglycerin (NITROSTAT) 0.[address] 1 tablet under the tongue 07/20/2008 Active SITagliptin (JANUVIA) 100 MG tablet 1 tablet daily Active metoprolol tartrate (LOPRESSOR) 50 MG tablet 06/07/2019 Active sertraline (ZOLOFT) 100 MG tablet 05/30/2019 Active oxyCODONE-acetaminoph en (PERCOCET) 7.5-325 MG per tablet 04/20/2019 Active levothyroxine (SYNTHROID, LEVOTHROID) 75 MCG tablet 05/19/2019 Active busPIRone (BUSPAR) 10 MG tablet 07/02/2019 Active CLENPIQ 10-3.5-12 MG-GM -GM/160ML solution 08/22/2019 Active amLODIPine (NORVASC) 5 MG tablet Take 1 tablet (5 mg total) by mouth 1 (one) time each day 30 tablet 11 03/21/2021 Active Active Problems Problem Noted Date Diagnosed Date Chronic kidney disease, Stage V 11/02/2019 Gastroesophageal reflux disease 01/12/2019 Overview (01/12/2019): well controlled on her medication. 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 Immunizations Name Administration Dates Next Due Influenza (IM) Preservative Free 03/26/2012 Influenza TIV (IM) 01/06/2019 Pneumococcal Conjugate 03/14/2019(Deferred: Naomy ent Refused) Family History Medical History Relation Comments Kidney stone Brother Kidney disease Father Relation Status Comments Brother Father Social History Tobacco Use Types Packs/Day Years Used Date Smoking Tobacco: Never Smokeless Tobacco: Never Alcohol Use Standard Drinks/Week Comments Yes 0 (1 standard drink = 0.6 oz pur e alcohol) Sex and Gender Information Value Date Recorded Sex Assigned at Not on file Gender Identity Not on file Sexual Orientation Not on file Last Filed Vital Signs Vital Sign Reading Time Taken Comments Blood Pressure 134/70 11/02/2019 2:59 PM CDT Pulse 84 11/02/2019 2:59 PM CDT Temperature 36.6 ??C (97.9 ??F) 11/02/2019 2:59 PM CD T Respiratory Rate - - Oxygen Saturation - - Inhaled Oxygen Concentration - - Weight 82.1 kg (181 lb) 11/02/2019 2:59 PM CDT Height 162.6 cm (5' 4 ) 11/02/2019 2:59 PM CDT Body Mass Index 31.07 11/02/2019 2:59 PM CDT Plan of Treatment Health Maintenance Due Date Last Done Comments Pneumococcal PPSV23/PCV13 65 + Years / Low and Medium Risk (1 of 4 - PCV) 2010 Influenza Vaccine (#1) 2023 01/06/2019, 2012 Care Teams Oval Or Circular Glass Cutter Relationship Specialty Start Date End Date Justen Bonds MD [address] [place] [id number] PCP - General Family Medicine 01/10/19
--- OUTSIDE RECORDS SUMMARY | 2024-04-12 09:15 | XMS_ITS | Referral Summary ---
Author Organization [facility] Address [address] [place] [address] Care Team Providers Care Public Health Nurse Name Role Phone Justen Singer MD Primary Care Prov ider Jamshid Joe MD Unavailable [phone] Alex Edgar MD Unavailable [phone] Allergies Active Allergy Reactions Criticality Noted [...] mcg tablet Take 75 mcg by mouth early childhood assistant before breakfast Active Vitamin D2 1,250 mcg [...] of onset was 57 years old in 2003 Crohn's disease ([facility]/HCC) 05/24/2012 Calculus of kidney 05/24/2012 Hypertension 05/24/2012 Hyperlipidemia 07/29/2010 Overview (06/25/2017): Description: Hyperlipidemia Chronic coronary artery disease 07/29/2010 Overview (06/25/2017): Description: Multi-vessel Coronary Artery Stenosis 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 End stage renal disease ([facility]) ESRD (end stage renal disease) ([facility]) Immunizations Name Administration Dates Next Due Influenza, Trivalent, Preservative Free, Intramu scular 03/26/2012 Social History Tobacco Use Types Packs/Day Years Used Date Smoking Tobacco: Former Smokeless Tobacco: Never Tobacco Cessation:Counseling Given: Not Answered Comments Unknown Sex and Gender Information Value Date Recorded Sex Assigned at Not on file Legal Sex Female 6:58 AM FEATHER SEPARATOR Gender Identity Not on file Sexual Orientation Not on file Last Filed Vital Signs Vital Sign Reading Time Taken Comments Blood Pressure 178/70 05/06/2022 9:26 AM FEATHER SEPARATOR Pulse 73 05/06/2022 9:26 AM FEATHER SEPARATOR Temperature 36.6 ??C (97.8 ??F) 08/26/2021 2:10 PM CD T Respiratory Rate 18 03/19/2020 8:41 PM FEATHER SEPARATOR Oxygen Saturation 90% 05/06/2022 9:26 AM FEATHER SEPARATOR Inhaled Oxygen Concentration - - Weight 73.9 kg (163 lb) 05/06/2022 9:26 AM FEATHER SEPARATOR Height 160 cm (5' 3 ) 05/06/2022 9:26 AM FEATHER SEPARATOR Body Mass Index 28.87 05/06/2022 9:26 AM FEATHER SEPARATOR Plan of Treatment Not on file Procedures Procedure Name Priority Date/Time Associated Diagnosis Comments HEPATITIS C ANTIBODY Routine 11/23/2020 12:05 PM CDT End stage renal disease ([facility]) (HCC) EGFR Routine 11/23/2020 12:05 PM CDT End stage renal disease (CMS/HCC) (HCC) HEMOGLOBIN A1C Routine 11/23/2020 12:05 PM CDT End stage renal disease (CMS/HCC) (HCC) LIPID PANEL Routine 11/23/2020 12:05 PM CDT End stage renal disease (CMS/HCC) (HCC) from Last 3 Months or Most Recently Relevant to Health Maintenance Results * (ABNORMAL) eGFR (11/23/2020 12:05 PM CDT) [facility] eGFR 8(L) 90 - 130 mL/min/1.7 3 m2 [facility] Comment: Interpretive Data Reference Interval Normal ?>/= [...] 5 PM CDT 11/23/2020 12:24 PM CDT us Jani Rose MD LAB BLOOD ORDERABLES Final Result [facility] [place] [address] * Hepatitis C antibody (11/23/2020 12:05 PM CDT) [facility] Hep C Ab Nonreactive Nonreactive [facility] Comment:Antibodies to HCV no t detected. Does NOT exclude the possibility of recent exposure to HCV. Blood 11/23/2020 12:0 5 PM CDT 11/23/2020 12:20 PM CDT Jani Rose MD LAB MICROBIOLOGY - GENERAL ORDERABLES Edited Result - Final Performing Organization Address [facility] [place] [address] * (ABNORMAL) Hemoglobin A1c (11/23/2020 12:05 PM CDT) [facility] Hgb A1C 6.1(H) 4.0 - 5.6 % [facility] Estimated Average Glucose 128 mg/dL [facility] Comment: The ADA recommends reporting an estimated [...] 12:20 PM CDT Jani Rose MD LAB BLOOD ORDERABLES Final Result Performing Organization Address [facility] Co [place] [address] * (ABNORMAL) Lipid panel (11/23/2020 12:05 PM CDT) [facility] Cholesterol 148 30 - 199 mg/dL [facility] Comment: Interpretive Data Ages < or = [...] on 2017. Triglycerides 303(H) <=149 mg/dL [facility] Comment: Interpretive Data Ages < or [...] on 2017. HDL 41 >=40 mg/dL [facility] Comment: Interpretive Data Ages < or [...] on 2017. LDL, calculated 46 <=129 mg/dL [facility] Comment: Interpretive Data Ages < or = [...] revised on 2017. Non-HDL Cholesterol 107 mg/dL [facility] Comment: Interpretive Data Ages < or = [...] last revised on 2017. Chol/HDL ratio 4 [facility] Blood 11/23/2020 12:0 5 PM CDT 11/23/2020 12:20 PM CDT us Jani Rose MD LAB BLOOD ORDERABLES Final Result [facility] [place] [address] from Last 3 Months or Most Recently Relevant to Health Maintenance Insurance MEDICARE [facility] MEDICARE [facility] MEDICARE [facility] Care Teams Public Health Nurse Relationship Specialty Start Date End Date Justen Singer MD [address] [facility] [place] [address] PCP - General Family Medicine 08/27/20 Jamshid Joe MD [address] [place], [place] [id number] Referring Physician Nephrology 10/08/20 Alex Edgar MD [address] [place], [place] [id number] Referring Physician Cardiology 10/08/20
--- OUTSIDE RECORDS SUMMARY | 2024-04-12 09:15 | XMS_ITS | Encounter Summary ---
Author Organization [facility] Address [address] [place] [address] Phone Care Team Providers Care Water Purification Chemist Name Role Phone Justen Singer MD Primary Care Prov ider Justen Singer MD Primary Care Prov ider Lita Elizabeth RN Unavailable Jamshid Joe MD Unavailable [phone] Alex Edgar MD Unavailable [phone] Encounter Details Date Type Department Care Team (Late st Contact Info) Description 12/15/2019 Telephone [facility] Cardiology [address] [facility] [address] [facility] [address]th [place] [address] [place] [address] Alex Edgar MD [address] [facility] [address] [place] [address] Social History Tobacco Use Types Packs/Day Years Used Date Smoking Tobacco: Former Smokeless Tobacco: Never Comments Unknown Sex and Gender Information Value Date Recorded Sex Assigned at Not on file Legal Sex Female 6:58 AM COOKER OPERATOR Gender Identity Not on file Sexual Orientation Not on file documented as of this encounter Plan of Treatment Not on file documented as of this encounter Visit Diagnoses Not on filedocumented in this encounter Additional Health Concerns Infection Onset Date Last Indicated Resolved Time COVID19 03/19/2020 03/19/202004/02/2020 3:07 AM COOKER OPERATOR documented as of this encounter Care Teams Water Purification Chemist Relationship Specialty Start Date End Date Justen Singer MD [address] [place] [address] PCP - General 03/27/17 08/26/20 Justen Singer MD [address] [place] [address] PCP - General Family Medicine 08/27/20 Lita Elizabeth, DINORAH [address] [id number] Registered Nurse Chalker Soles 08/27/20 Jamshid Joe MD [address] [address] Referring Physician Nephrology 10/08/20 Alex Edgar MD [address] [address] Referring Physician Cardiology 10/08/20 documented as of this encounter
--- OUTSIDE RECORDS SUMMARY | 2024-04-12 09:16 | XMS_ITS | Referral Summary ---
Author Organization [facility] Address [address] [facility] [place] [address] Care Team Providers Care Data Migration Lead Name Role Phone Justen Singer MD Primary Care Provider + Source Comments [facility],non-owned Affiliates and Associated Physician Practices is amultiple site organization consisting of ambulatory clinics and hospital sitesin [place], [place], [place] and [place]. This disclosure is being madepursuant to the Care Everywhere program and may not contain all information available regarding this patient. Last updated 17.[facility] wutabout Allergies Active Allergy Reactions Criticality Noted Date Comments Cortisone Anaphylaxis High 02/13/2020 Penicillins Anaphylaxis High 02/13/2020 Ceftriaxone Anaphylaxis High 02/28/2022 Medications * Be aware that medications may not be up to date on this document. Alwaysverify current medications with the patient. Medication Sig Dispensed Refills Start Date End Date Status atorvastatin (Lipitor) 40 MG tablet Take 1 (one) tablet by mouth at bedtime 06/09/2022 Active pantoprazole EC (Protonix) 40 MG tablet Take 1 (one) tablet by mouth once daily 06/09/2022 Active lisinopril (Prinivil; Zestril) 40 MG tablet Take 1 (one) tablet by mouth once daily Active acetaminophen (Tylenol) 325 MG tablet Take 2 (two) tablets by mouth every 4 hours as needed Maximum allowable Acetaminophen amount = 4 Grams (4000 mg) / 24 hours. 08/14/2022 Active aspirin (Aspirin) 81 MG chew tablet Take 1 (one) tablet by mouth once daily 08/15/2022 Active Sodium Chloride Flush (0.9% NaCl) injection 3 mL by Intracatheter route every 8 hours 08/14/2022 Active Sodium Chloride Flush (0.9% NaCl) injection 1-10 mL by Intracatheter route as needed (peripheral line flush) 08/14/2022 Active dextrose 10 % INJ 125 mL by Intravenous route as needed (Bedside Glucose less than 70 mg/dL -If NOT able to eat and/or NPO and with IV Access) 08/14/2022 Active albumin human 25 % 50 mL by Intravenous route as needed (Can give for soft BP SBP < 90 and DBP < 60 during iHD as needed.) 08/14/2022 Active vitamin B complex w/ C 60mg & FA 0.8mg (Nephro-Max) 0.8 MG TABS tablet Take 1 (one) tablet by mouth once daily 08/15/2022 Active epoetin (Epogen; Procrit) 4000 UNIT/ML injection 1 mL by Intravenous route Give in dialysis on Thursday, & Thursday08/15/2022 Active levothyroxine (Synthroid) 75 MCG tablet Take 1 (one) tablet by mouth once daily 08/15/2022 Active levETIRAcetam (Keppra) 500 MG tablet Take 1 (one) tablet by mouth 2 times daily 08/14/2022 Active melatonin 3 MG tablet Take 1 (one) tablet by mouth at bedtime 08/14/2022 Active lidocaine (Lidoderm) 5 % patch Apply 1 (one) patch to skin every 24 hours Apply patch to most painful area and remove after 12 hours. May reapply a new patch 12 hours later. 08/14/2022 Active vitamin D3 (Cholecalciferol) 25 MCG (1000 UNITS) tablet Take 2 (two) tablets by mouth once daily 08/15/2022 Active metoprolol tartrate IR (Lopressor) 50 MG tablet Take 1 (one) tablet by mouth 2 times daily 08/14/2022 Active amLODIPine (Norvasc) 10 MG tablet Take 1 (one) tablet by mouth once daily 08/15/2022 Active droNABinol (Marinol) 2.5 MG capsule Take 1 (one) capsule by mouth 2 times daily 08/14/2022 Activ e hydrALAZINE (Apresoline) 25 MG tablet Take 1 (one) tablet by mouth 3 times daily 08/14/2022 Active Sodium Chloride Flush (0.9% NaCl) injection 10-40 mL by Intracatheter route every 8 hours 08/14/2022 Active Sodium Chloride Flush (0.9% NaCl) injection 10-40 mL by Intravenous route as needed (mid-line flush) 08/14/2022 Active methyl salicylate-menthol (Anand Dial) ointment Apply to affected area 4 times daily as needed (back pain) 08/14/2022 Active insulin lispro (HumaLOG;ADMelog) 100 UNIT/ML pen Inject 0 (zero) Units to 7 (seven) Units subcutaneously 3 times daily with meals 08/14/2022 Active Active Problems Problem Noted Date Diagnosed Date Acute CVA (cerebrovascular accident) 07/27/2022 Seizures 07/26/2022 HTN (hypertension) 07/26/2022 Posterior reversible encephalopathy syndrome ([place] ES) 07/26/2022 Unresponsive 07/25/2022 Acute encephalopathy 07/25/2022 Acute respiratory failure with hypoxia 3 ESRD (end stage renal disease) 07/25/2022 Primary hypertension 07/25/2022 SAH (subarachnoid hemorrhage) 10/25/2021 Closed fracture of left tibial plateau 2 Closed fracture of left fibula 10/25/2021 Displaced fracture of right radial styloid process, initial encounter for closed fracture 10/25/2021 Aspiration pneumonia 10/25/2021 Diabetes mellitus 10/25/2021 Fall 10/22/2021 Immunizations Name Administration Dates Next Due INFLUENZA VACCINE, TRIV. (AF LURIA, FLUZONE TRIVALENT; 6MO+) (IIV3) 01/06/2019 [employer] primary Monoval ent 12+ yr 0.3ml 10/26/2021(Deferred: Patient Refused - pt refused once it was time to administer) FLU VACCINE QUAD IIV4 PF ID 11/29/2019, 0 FLU VACCINE TRI IIV3 SPLIT P F IM (FLUVIRIN) 03/26/2012 Pneumococcal Pcv13 Conj 07/10/2020 Social History Tobacco Use Types Packs/Day Years Used Date Smoking Tobacco: Former Cigarettes 1 34 Smokeless Tobacco: Never Tobacco Cessation:Counseling Given: Not Answered Alcohol Use Standard Drinks/Week Comments Not Currently 0 (1 standard drink = 0.6 oz pur e alcohol) AUDIT-C Answer Date Recorded Q1: How often do you have a drink containing alcohol? Never 07/26/2022 Q2: How many drinks containi ng alcohol do you have on a typical day when you are drinking? Patient does not drink Q3: How often do you have si x or more drinks on one occasion? Never 07/26/2022 Hunger Vital Sign Answer Date Recorded Within the past 12 months, y ou worried that your food would run out before you got the money to buy more. Never true 10/24/19 22 Within the past 12 months, t he food you bought just didn't last and you didn't have money to get more. Never true 10/23/2021 Sex and Gender Information Value Date Recorded Sex Assigned at Not on file Gender Identity Not on file Sexual Orientation Not on file Last Filed Vital Signs Vital Sign Reading Time Taken Comments Blood Pressure 140/55 08/14/2022 7:51 AM CDT Pulse 69 08/14/2022 7:51 AM CDT Temperature 36.8 ??C (98.2 ??F) 08/14/2022 7:51 AM CD T Respiratory Rate 20 08/14/2022 7:51 AM CDT Oxygen Saturation 95% 08/14/2022 7:51 AM CDT Inhaled Oxygen Concentration 30% 08/03/2022 1 2:00 PM CDT Weight 69.5 kg (153 lb 4.8 oz) 08/12/2022 4:00 A M CDT Height 165.1 cm (5' 5 ) 07/28/2022 8:29 PM CDT Body Mass Index 25.51 07/28/2022 8:29 PM CDT Functional Status Functional Status Response Date of Assess ment Is person deaf or have serious hearing difficult y? No 07/26/2022 Is person blind or have serious difficulty seein g? No 07/26/2022 Does person have serious dif ficulty walking/climbing stairs? No 07/26/2022 Does person have difficulty dressing/bathing? No 07/26/2022 Does person have difficulty doing errands alone? No 07/26/2022 Cognitive Status Response Date of Assessm ent Does person have difficulty concentrating/remembering/making decisions? No 07/26/2022 Plan of Treatment Not on file Procedures Procedure Name Priority Date/Time Associated Diagnosis Comments HEMOGLOBIN A1C Routine 07/26/2022 4:40 AM CDT from Last 3 Months or Most Recently Relevant to Health Maintenance Results * (ABNORMAL) HEMOGLOBIN A1C (07/26/2022 4:40 AM CDT) Hemoglobin A1c 6.1(H) <=5.6 % 07/27/2022 9:53 AM CDT [facility] Estimated Average Glucose 128 mg/dL 07/27/2022 9:53 AM CDT [facility] Comment: HbA1c Interpretation: Normal : < 5.7% Pre-diabetes: 5.7-6.4% Diabetes: Equal to or greater than 6.5% Test results diagnostic of diabetes should be repeated for confirmation. Treatment target values recommended by ADA and other clinical organizations should be used to evaluate metabolic control in patients. Reference: [place] Diabetes Association, Standards of Care in Diabetes -2020 In patients 70 years and older consider HbA1c target range of 7.0-7.5% (Reference: Miguel Adams et al. JAMDA. 2012) The Sebia assay for the measurement of HbA1c is a National Glycohemoglobin Standardization Program (NGSP) certified method. Blood BLOOD SPECIMEN / Unknown Venipuncture / Unknown 07/26/2022 4:40 AM CDT 07/26/2022 4:49 AM CDT Sree Wade MD LAB - CHEMISTRY NELLI Valentino Organization Address City/State/ZIP Co de Phone Number [facility] [address] [place] [address], [facility] [phone] from Last 3 Months or Most Recently Relevant to Health Maintenance Advance Directives Documents on File Type Date Recorded Patient Manager Global Expl anation Adv Directive/Living Will/POA 08/15/2022 11:36 AM Adv Directive/Living Will/POA 07/05/2020 2:33 PM * LIMITED RESUSCITATION-PRIOR AND AFTER ARREST (Latest Code Status on File) Date Activated Date Inactivated Comments 07/31/2022 11:45 AM 08/14/2022 2:19 PM Question Answer Comments Limited Resuscitation: No Chest Compress ionNo Cardioversion, No Defibrilation, No External or Internal Pacemaker * Full Code Date Activated Date Inactivated Comments 07/25/2022 8:14 PM 07/31/2022 11:45 AM * Full Code Date Activated Date Inactivated Comments 10/22/2021 3:50 PM 10/30/2021 11:48 AM Care Teams Data Migration Lead Relationship Specialty Start Date End Date Justen Singer MD [address] [facility] [address] [place] [address] PCP - General 02/14/20
--- OUTSIDE RECORDS SUMMARY | 2024-04-12 09:17 | XMS_ITS | Clinical Summary ---
Author Organization [facility] Address [address] [facility] [place] [address] Care Team Providers Care Quality Control Scientist Name Role Phone Justen Singer MD Primary Care Provider + Source Comments [facility],non-owned Affiliates and Associated Physician Practices is amultiple site organization consisting of ambulatory clinics and hospital sitesin [place], [place] and [place]. This disclosure is being madepursuant to the Care Everywhere program and may not contain all information available regarding this patient. Last updated 17.[facility] Allergies Active Allergy Reactions Criticality Noted Date [...] HTN (hypertension) 07/26/2022 Posterior reversible encephalopathy syndrome ([place] ES) 07/26/2022 Unresponsive 07/25/2022 Acute encephalopathy 07/25/2022 [...] (AF LURIA, FLUZONE TRIVALENT; 6MO+) (IIV3) 01/06/2019 [employer] primary Monoval ent 12+ yr 0.3ml 10/26/2021(Deferred: Patient Refused - pt refused once it was time to administer) FLU VACCINE QUAD IIV4 PF ID 11/29/2019, 0 FLU VACCINE TRI IIV3 SPLIT P F IM (FLUVIRIN) 03/26/2012 Pneumococcal Pcv13 Conj 07/10/2020 Family History Medical History Relation Name Comments CAD (Coronary Artery Disease) Father Cancer - Renal Father Hypertension Father CAD (Coronary Artery Disease) Mother Cancer - Lung Mother Hypertension Mother Relation Name Status Comments Father Mother Social History Tobacco Use Types Packs/Day Years [...] Mass Index 25.51 07/28/2022 8:29 PM CDT Plan of Treatment Health Maintenance Due Date Last Done Comments BONE DENSITY TESTING 1945 MEDICARE AWV ? 12 MONTHS 1945 HEPATITIS C SCREENING 05/25/1963 DTAP/TDAP/TD VACCINES (1 - Tdap) 1964 HEPATITIS B VACCINE (1 of 3 - Risk Dialysis 4-dose series) 1965 ZOSTER VACCINE (1 of 2) 05/30/1995 Respiratory Syncytial Virus (RSV) Vaccine Pt: or over 60 yrs (1 - 1-dose 75+ series) 2020 PNEUMOCOCCAL VACCINE 50+ (2 of 2 - PPSV23) 09/04/2020 07/10/2020 DIABETES RETINOPATHY SCREENING 10/25/2021 DIABETES-FOOT EXAM WITH MONOFILAMENT 10/25/2021 DIABETES-HGB A1C 01/26/2023 07/26/2022, 02/2022, 11/23/2020 COVID-19 VACCINE ( season) 2023 01/03/2021, 06/06/2020, 05/15/2020 INFLUENZA VACCINE (#1) 2023 , 11/23/2019, 01/06/2019, Additional history exists DEPRESSION SCREENING 03/16/2024 HIB VACCINE Aged Out No longer eligi ble based on patient's age to complete this topic HPV VACCINE Aged Out No longer eligi ble based on patient's age to complete this topic MENINGOCOCCAL (Group B) VACCINE Aged Out No longer eligible based on patient's age to complete this topic MENINGOCOCCAL VACCINE Aged Out No melba yaritza eligible based on patient's age to complete this topic Procedures Procedure Name Priority Date/Time Associated Diagnosis Comments HEMOGLOBIN A1C Routine 07/26/2022 4:40 AM CDT from Last 3 Months or Most Recently Relevant to Health Maintenance Results * (ABNORMAL) HEMOGLOBIN A1C (07/26/2022 4:40 AM CDT) Hemoglobin A1c 6.1(H) <=5.6 % 07/27/2022 9:53 AM CDT [facility] Estimated Average Glucose 128 mg/dL 07/27/2022 9:53 AM CDT [facility] Comment: HbA1c Interpretation: Normal : < 5.7% Pre-diabetes: 5.7-6.4% Diabetes: Equal to or greater than 6.5% Test results diagnostic of diabetes should be repeated for confirmation. Treatment target values recommended by ADA and other clinical organizations should be used to evaluate metabolic control in patients. Reference: [place] Diabetes Association, Standards of Care in Diabetes [...] Organization Address City/State/ZIP Co de Phone Number [facility] [address] [place] [address], [facility] [phone] from Last 3 Months or Most Recently Relevant to Health Maintenance Advance Directives Documents on File Type Date Recorded Patient Medical Claims Analyst Expl anation Adv Directive/Living Will/POA 08/15/2022 11:36 [...] 3:50 PM 10/30/2021 11:48 AM Care Teams Quality Control Scientist Relationship Specialty Start Date End Date Justen Singer MD [address] [address] PCP - General 02/14/20
--- OUTSIDE RECORDS SUMMARY | 2024-04-12 09:17 | XMS_ITS | Clinical Summary ---
Author Organization [facility] Address [address] [facility] [place] [address] Phone Care Team Providers Care Trimmer Machine Operator Name Role Phone Justen Singer MD Primary Care Provider [phone] Allergies Active Allergy Reactions Criticality Noted Date Comments Cortisone Shortness of Breath/Wheezing High 01/12/2019 Penicillins Shortness of Breath/Wheezing High 01/12/2019 Other reaction(s): Unknown Medications allopurinoL (ZYLOPRIM) 300 mg tablet Take 300 mg by mouth daily at bedtime. 0 Active aspirin (SHANIKA) 325 mg tablet Take 1 Tablet by mouth. 9 Active busPIRone (BUSPAR) 10 mg tablet Take 10 mg by mouth 2 times daily. 0 Active cholecalciferol , vitamin D3, 1,000 unit 3 Active ferrous sulfate 325 mg (65 mg iron) tablet Take 1 Tablet by mouth. 9 Active levothyroxine 75 mcg tablet Take 75 mcg by mouth daily. 0 Active metoprolol tartrate (LOPRESSOR) 25 mg tablet Take 50 mg by mouth 2 times daily. 8 Active multivit with min-folic acid 200 mcg Tablet, Chewable Take by mouth. Activ e sertraline (ZOLOFT) 100 mg tablet Take 100 mg by mouth daily. 0 Active ergocalciferol (VITAMIN D2) 50,000 unit capsule Take 50,000 Units by mouth. Active B-complex + vitamin C (SUPER B-C) Tablet Take 1 Tablet by mouth daily. Active acetaminophen (TYLENOL ARTHRITIS) 650 mg Extended Release tablet Take 650 mg by mouth every 6 hours as needed for Pain. Active loperamide HCl (IMODIUM ORAL) Take by mouth 1 time daily as needed. Max 4 tabs in 24 hours Active doxycycline hyclate (VIBRAMYCIN) 100 mg capsule Take 100 mg by mouth 2 times daily. Active oxybutynin chloride (DITROPAN XL) 15 mg Extended Release 24 hour tablet Take 15 mg by mouth daily. Active insulin aspart (NovoLOG) 100 unit/mL injection Inject by subcutaneous injection 4 times daily with meals and at bedtime. Per sliding scale: 0-199 = 0 units 200-250 = 2 units 251-300 = 3 units 301-350 = 4 units 351-400 = 5 units >400, call Active traMADoL (ULTRAM) 50 mg tabletIndicatio ns:End stage renal disease (CMS/HCC) Take 2 Tablets (100 mg) by mouth every 6 hours as needed for Pain. 20 Tablet 1 Active Active Problems Problem Noted Date Diagnosed Date Chronic renal failure, stage 5 11/23/2019 Social History Tobacco Use Types Packs/Day Years Used Date Smoking Tobacco: Former Cigarettes 0.5 35 0 12/13/1958 - 12/13/1993 Smokeless Tobacco: Former Quit: 1994 Alcohol Use Standard Drinks/Week Comments Not Currently 0 (1 standard drink = 0.6 oz pur e alcohol) Comments No Sex and Gender Information Value Date Recorded Sex Assigned at Not on file Legal Sex Female 10:53 AM CDT Gender Identity Not on file Sexual Orientation Not on file Last Filed Vital Signs Vital Sign Reading Time Taken Comments Blood Pressure 173/60 04/24/2020 9:15 AM EXTRAS CASTING DIRECTOR Pulse 59 04/24/2020 6:13 AM EXTRAS CASTING DIRECTOR Temperature 36.6 ??C (97.8 ??F) 04/24/2020 6:13 AM CS T Respiratory Rate 17 04/24/2020 9:15 AM EXTRAS CASTING DIRECTOR Oxygen Saturation 97% 04/24/2020 9:15 AM EXTRAS CASTING DIRECTOR Inhaled Oxygen Concentration - - Weight 68 kg (150 lb) 04/24/2020 6:13 AM EXTRAS CASTING DIRECTOR Height 160 cm (5' 3 ) 04/24/2020 6:13 AM EXTRAS CASTING DIRECTOR Body Mass Index 26.57 04/24/2020 6:13 AM EXTRAS CASTING DIRECTOR Plan of Treatment Health Maintenance Due Date Last Done Comments DIABETES ANNUAL FOOT EXAM 05/30/1963 DIABETES ANNUAL RETINAL EXAM 05/30/1963 DIABETES MICROALBUMIN ANNUAL SCREEN 05/30/1963 LDL CHOLESTEROL ANNUAL 05/30/1963 DTAP/TDAP/TD VACCINES (1 - Tdap) 1964 ZOSTER VACCINE (1 of 2) 05/30/1995 OSTEOPOROSIS SCREENING 2010 RSV VACCINE (60+ or ) (1 - 1-dose 75+ series) 2020 PNEUMOCOCCAL VACCINE 65+ YEA RS (2 of 2 - PPSV23) 09/04/2020 07/10/2020 DIABETES HBA1C Q 6 MONTHS 01/26/2023 07/26/2022, 02/2022 INFLUENZA VACCINE (#1) 2023 , 11/23/2019, 01/06/2019, Additional history exists Medical Devices Implanted Type Area Fibre Cement Moulder Device Identifier Shelf Expiration Date Model / Serial / Lot 3 Cardiac Stents Left Renal Stent Explanted Type Area Fibre Cement Moulder Device Identifier Shelf Expiration Date Model / Serial / Lot Cath Pd Howard Curl 2cuff [id number] - [id number] Implanted:Qty : 1 on 01/25/2020 by Rafita Bartlett MD at [facility] Explanted:Qty : 1 on 04/24/2020 by Hawk Angel MD at [facility] Catheter N/A: Abdomen [employer] - COVIDIEN 09/12/2024 [id number] / / [id number] Insurance MEDICARE PART A AND B [facility] SUPP Advance Directives For more information, please contact: [phone] * Full Code (Latest Code Status on File) Date Activated Date Inactivated Comments 04/24/2020 7:08 AM 04/24/2020 11:55 AM * Full Code Date Activated Date Inactivated Comments 04/24/2020 5:39 AM 04/24/2020 7:07 AM * Full Code Date Activated Date Inactivated Comments 01/25/2020 5:51 AM 01/26/2020 7:33 PM Care Teams Trimmer Machine Operator Relationship Specialty Start Date End Date Justen Singer MD [address] [address] PCP - General Family Practice 01/25/20
--- OUTSIDE RECORDS SUMMARY | 2024-04-12 09:17 | XMS_ITS | Patient Health Summary ---
Author Organization [facility] Address [address] [place] [address] Care Team Providers Care Tool Dispatcher Name Role Phone Justen Singer MD Primary Care Provider + Note from [facility],non-owned Affiliates and Associated Physician Practices is amultiple site organization consisting of ambulatory clinics and hospital sitesin [place], [place], [place] and [place]. This disclosure is being madepursuant to the Care Everywhere program and may not contain all information available regarding this patient. Last updated 17.[facility] Allergies * Cortisone(Anaphylaxis) -High Criticality * Penicillins(Anaphylaxis) -High Criticality * Ceftriaxone(Anaphylaxis) -High Criticality Medications * Be aware that medications may not be up to date on this document. Alwaysverify current medications with the patient. * atorvastatin (Lipitor) 40 MG tablet(Started 06/09/2022) Take 1 (one) tablet by mouth at bedtime * pantoprazole EC (Protonix) 40 MG tablet(Started 06/09/2022) Take 1 (one) tablet by mouth once daily * lisinopril (Prinivil; Zestril) 40 MG tablet Take 1 (one) tablet by mouth once daily * acetaminophen (Tylenol) 325 MG tablet(Started 08/14/2022) Take 2 (two) tablets by mouth every 4 hours as needed Maximum allowable Acetaminophen amount = 4 Grams (4000 mg) / 24 hours. * aspirin (Aspirin) 81 MG chew tablet(Started 08/15/2022) Take 1 (one) tablet by mouth once daily * Sodium Chloride Flush (0.9% NaCl) injection(Started 08/14/2022) 3 mL by Intracatheter route every 8 hours * Sodium Chloride Flush (0.9% NaCl) injection(Started 08/14/2022) 1-10 mL by Intracatheter route as needed (peripheral line flush) * dextrose 10 % INJ(Started 08/14/2022) 125 mL by Intravenous route as needed (Bedside Glucose less than 70 mg/dL -If NOT able to eat and/or NPO and with IV Access) * albumin human 25 %(Started 08/14/2022) 50 mL by Intravenous route as needed (Can give for soft BP SBP < 90 and DBP < 60 during iHD as needed.) * vitamin B complex w/ C 60mg & FA 0.8mg (Nephro-Max) 0.8 MG TABS tablet (Started 08/15/2022) Take 1 (one) tablet by mouth once daily * epoetin (Epogen; Procrit) 4000 UNIT/ML injection(Started 08/15/2022) 1 mL by Intravenous route Give in dialysis on Thursday, & Thursday * levothyroxine (Synthroid) 75 MCG tablet(Started 08/15/2022) Take 1 (one) tablet by mouth once daily * levETIRAcetam (Keppra) 500 MG tablet(Started 08/14/2022) Take 1 (one) tablet by mouth 2 times daily * melatonin 3 MG tablet(Started 08/14/2022) Take 1 (one) tablet by mouth at bedtime * lidocaine (Lidoderm) 5 % patch(Started 08/14/2022) Apply 1 (one) patch to skin every 24 hours Apply patch to most painful area and remove after 12 hours. May reapply a new patch 12 hours later. * vitamin D3 (Cholecalciferol) 25 MCG (1000 UNITS) tablet(Started 08/15/2022) Take 2 (two) tablets by mouth once daily * metoprolol tartrate IR (Lopressor) 50 MG tablet(Started 08/14/2022) Take 1 (one) tablet by mouth 2 times daily * amLODIPine (Norvasc) 10 MG tablet(Started 08/15/2022) Take 1 (one) tablet by mouth once daily * droNABinol (Marinol) 2.5 MG capsule(Started 08/14/2022) Take 1 (one) capsule by mouth 2 times daily * hydrALAZINE (Apresoline) 25 MG tablet(Started 08/14/2022) Take 1 (one) tablet by mouth 3 times daily * Sodium Chloride Flush (0.9% NaCl) injection(Started 08/14/2022) 10-40 mL by Intracatheter route every 8 hours * Sodium Chloride Flush (0.9% NaCl) injection(Started 08/14/2022) 10-40 mL by Intravenous route as needed (mid-line flush) * methyl salicylate-menthol (Annad Dial) ointment(Started 08/14/2022) Apply to affected area 4 times daily as needed (back pain) * insulin lispro (HumaLOG;ADMelog) 100 UNIT/ML pen(Started 08/14/2022) Inject 0 (zero) Units to 7 (seven) Units subcutaneously 3 times daily with meals Active Problems Problem Noted Date Diagnosed Date Acute CVA (cerebrovascular accident) 07/27/2022 Seizures 07/26/2022 HTN (hypertension) 07/26/2022 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 (AFLURIA, FLUZONE TRIVALENT; 6MO+) (IIV3)(Given 01/06/2019) * FLU VACCINE QUAD IIV4 PF ID(Given 11/29/2019, 11/23/2019) * FLU VACCINE TRI IIV3 SPLIT PF IM (FLUVIRIN)(Given 03/26/2012) * Pneumococcal Pcv13 Conj(Given 07/10/2020) Social History Tobacco Use Types Packs/Day Years [...] Mass Index 25.51 07/28/2022 8:29 PM CDT Procedures * SARS-COV-2 (COVID-19) RAPID(Performed 08/14/2022) * MAGNESIUM BLOOD(Performed 08/14/2022) * GLUCOSE - POINT OF CARE(Performed 08/14/2022) * CBC W/O DIFFERENTIAL(Performed 08/14/2022) * GLUCOSE - POINT OF CARE(Performed 08/13/2022) * GLUCOSE - POINT OF CARE(Performed 08/13/2022) * GLUCOSE - POINT OF CARE(Performed 08/13/2022) * GLUCOSE - POINT OF CARE(Performed 08/12/2022) * GLUCOSE - POINT OF CARE(Performed 08/12/2022) * HEMODIALYSIS INPATIENT(Performed 08/12/2022) * GLUCOSE - POINT OF CARE(Performed 08/12/2022) * GLUCOSE - POINT OF CARE(Performed 08/12/2022) * RENAL FUNCTION PANEL(Performed 08/12/2022) * CBC W/O DIFFERENTIAL(Performed 08/12/2022) * MAGNESIUM BLOOD(Performed 08/12/2022) * GLUCOSE - POINT OF CARE(Performed 08/12/2022) * GLUCOSE - POINT OF CARE(Performed 08/11/2022) * GLUCOSE - POINT OF CARE(Performed 08/11/2022) * GLUCOSE - POINT OF CARE(Performed 08/11/2022) * GLUCOSE - POINT OF CARE(Performed 08/11/2022) * GLUCOSE - POINT OF CARE(Performed 08/11/2022) * GLUCOSE - POINT OF CARE(Performed 08/11/2022) * HEMODIALYSIS INPATIENT(Performed 08/11/2022) * PHOSPHORUS BLOOD(Performed 08/11/2022) * COMPREHENSIVE METABOLIC PANEL(Performed 08/11/2022) * CBC W/O DIFFERENTIAL(Performed 08/11/2022) * MAGNESIUM BLOOD(Performed 08/11/2022) * GLUCOSE - POINT OF CARE(Performed 08/10/2022) * GLUCOSE - POINT OF CARE(Performed 08/10/2022) * GLUCOSE - POINT OF CARE(Performed 08/10/2022) * GLUCOSE - POINT OF CARE(Performed 08/10/2022) * GLUCOSE - POINT OF CARE(Performed 08/10/2022) * CBC W/O DIFFERENTIAL(Performed 08/10/2022) * RENAL FUNCTION PANEL(Performed 08/10/2022) * MAGNESIUM BLOOD(Performed 08/10/2022) * GLUCOSE - POINT OF CARE(Performed 08/09/2022) * GLUCOSE - POINT OF CARE(Performed 08/09/2022) * GLUCOSE - POINT OF CARE(Performed 08/09/2022) * GLUCOSE - POINT OF CARE(Performed 08/09/2022) * GLUCOSE - POINT OF CARE(Performed 08/09/2022) * CBC W/O DIFFERENTIAL(Performed 08/09/2022) * RENAL FUNCTION PANEL(Performed 08/09/2022) * MAGNESIUM BLOOD(Performed 08/09/2022) * GLUCOSE - POINT OF CARE(Performed 08/08/2022) * GLUCOSE - POINT OF CARE(Performed 08/08/2022) * GLUCOSE - POINT OF CARE(Performed 08/08/2022) * GLUCOSE - POINT OF CARE(Performed 08/08/2022) * CBC W/O DIFFERENTIAL(Performed 08/08/2022) * RENAL FUNCTION PANEL(Performed 08/08/2022) * MAGNESIUM BLOOD(Performed 08/08/2022) * GLUCOSE - POINT OF CARE(Performed 08/07/2022) * GLUCOSE - POINT OF CARE(Performed 08/07/2022) * GLUCOSE - POINT OF CARE(Performed 08/07/2022) * HEMODIALYSIS INPATIENT(Performed 08/07/2022) * GLUCOSE - POINT OF CARE(Performed 08/07/2022) * GLUCOSE - POINT OF CARE(Performed 08/07/2022) * GLUCOSE - POINT OF CARE(Performed 08/07/2022) * CBC W/O DIFFERENTIAL(Performed 08/07/2022) * RENAL FUNCTION PANEL(Performed 08/07/2022) * MAGNESIUM BLOOD(Performed 08/07/2022) * GLUCOSE - POINT OF CARE(Performed 08/06/2022) * GLUCOSE - POINT OF CARE(Performed 08/06/2022) * CARDIAC EKG ORDER(Performed 08/06/2022) * EKG 12-LEAD(Performed 08/06/2022) Performed for Primary hypertension * GLUCOSE - POINT OF CARE(Performed 08/06/2022) * GLUCOSE - POINT OF CARE(Performed 08/06/2022) * CBC W AUTO DIFFERENTIAL(Performed 08/06/2022) * RENAL FUNCTION PANEL(Performed 08/06/2022) * MAGNESIUM BLOOD(Performed 08/06/2022) * GLUCOSE - POINT OF CARE(Performed 08/06/2022) * GLUCOSE - POINT OF CARE(Performed 08/05/2022) * GLUCOSE - POINT OF CARE(Performed 08/05/2022) * GLUCOSE - POINT OF CARE(Performed 08/05/2022) * HEMODIALYSIS INPATIENT(Performed 08/05/2022) * VAS DIALYSIS EXIST ACCESS SCAN(Performed 08/05/2022) Performed for Hemodialysis access, fistula mature (HCC), ESRD (end stage renal disease) (HCC), Hematoma of arm, left, initial encounter * GLUCOSE - POINT OF CARE(Performed 08/05/2022) * GLUCOSE - POINT OF CARE(Performed 08/05/2022) * CBC W AUTO DIFFERENTIAL(Performed 08/05/2022) * RENAL FUNCTION PANEL(Performed 08/05/2022) * MAGNESIUM BLOOD(Performed 08/05/2022) * GLUCOSE - POINT OF CARE(Performed 08/04/2022) * GLUCOSE - POINT OF CARE(Performed 08/04/2022) * GLUCOSE - POINT OF CARE(Performed 08/04/2022) * GLUCOSE - POINT OF CARE(Performed 08/04/2022) * GLUCOSE - POINT OF CARE(Performed 08/04/2022) * GLUCOSE - POINT OF CARE(Performed 08/04/2022) * GLUCOSE - POINT OF CARE(Performed 08/04/2022) * CBC W AUTO DIFFERENTIAL(Performed 08/04/2022) * RENAL FUNCTION PANEL(Performed 08/04/2022) * MAGNESIUM BLOOD(Performed 08/04/2022) * GLUCOSE - POINT OF CARE(Performed 08/03/2022) * GLUCOSE - POINT OF CARE(Performed 08/03/2022) * GLUCOSE - POINT OF CARE(Performed 08/03/2022) * GLUCOSE - POINT OF CARE(Performed 08/03/2022) * GLUCOSE - POINT OF CARE(Performed 08/03/2022) * GLUCOSE - POINT OF CARE(Performed 08/03/2022) * CBC W AUTO DIFFERENTIAL(Performed 08/03/2022) * RENAL FUNCTION PANEL(Performed 08/03/2022) * MAGNESIUM BLOOD(Performed 08/03/2022) * GLUCOSE - POINT OF CARE(Performed 08/03/2022) * HEMODIALYSIS INPATIENT(Performed 08/03/2022) * GLUCOSE - POINT OF CARE(Performed 08/02/2022) * GLUCOSE - POINT OF CARE(Performed 08/02/2022) * GLUCOSE - POINT OF CARE(Performed 08/02/2022) * GLUCOSE - POINT OF CARE(Performed 08/02/2022) * GLUCOSE - POINT OF CARE(Performed 08/02/2022) * CBC W AUTO DIFFERENTIAL(Performed 08/02/2022) * RENAL FUNCTION PANEL(Performed 08/02/2022) * MAGNESIUM BLOOD(Performed 08/02/2022) * GLUCOSE - POINT OF CARE(Performed 08/01/2022) * GLUCOSE - POINT OF CARE(Performed 08/01/2022) * GLUCOSE - POINT OF CARE(Performed 08/01/2022) * GLUCOSE - POINT OF CARE(Performed 08/01/2022) * GLUCOSE - POINT OF CARE(Performed 08/01/2022) * GLUCOSE - POINT OF CARE(Performed 08/01/2022) * CBC W AUTO DIFFERENTIAL(Performed 08/01/2022) * RENAL FUNCTION PANEL(Performed 08/01/2022) * MAGNESIUM BLOOD(Performed 08/01/2022) * GLUCOSE - POINT OF CARE(Performed 08/01/2022) * GLUCOSE - POINT OF CARE(Performed 07/31/2022) * GLUCOSE - POINT OF CARE(Performed 07/31/2022) * GLUCOSE - POINT OF CARE(Performed 07/31/2022) * HEMODIALYSIS INPATIENT(Performed 07/31/2022) * GLUCOSE - POINT OF CARE(Performed 07/31/2022) * GLUCOSE - POINT OF CARE(Performed 07/31/2022) * GLUCOSE - POINT OF CARE(Performed 07/31/2022) * CBC W AUTO DIFFERENTIAL(Performed 07/31/2022) * RENAL FUNCTION PANEL(Performed 07/31/2022) * MAGNESIUM BLOOD(Performed 07/31/2022) * GLUCOSE - POINT OF CARE(Performed 07/30/2022) * GLUCOSE - POINT OF CARE(Performed 07/30/2022) * GLUCOSE - POINT OF CARE(Performed 07/30/2022) * GLUCOSE - POINT OF CARE(Performed 07/30/2022) * GLUCOSE - POINT OF CARE(Performed 07/30/2022) * GLUCOSE - POINT OF CARE(Performed 07/30/2022) * VITAMIN D 25-HYDROXY(Performed 07/30/2022) * PTH INTACT W/O CALCIUM(Performed 07/30/2022) * CBC W AUTO DIFFERENTIAL(Performed 07/30/2022) * RENAL FUNCTION PANEL(Performed 07/30/2022) * MAGNESIUM BLOOD(Performed 07/30/2022) * GLUCOSE - POINT OF CARE(Performed 07/29/2022) * BLOOD GASES ART + COOX PANEL(Performed 07/29/2022) * XR ABDOMEN KUB PORTABLE(Performed 07/29/2022) Performed for Acute respiratory failure with hypoxia (HCC) * XR CHEST 1VW PORTABLE(Performed 07/29/2022) Performed for Acute respiratory failure with hypoxia (HCC) * GLUCOSE - POINT OF CARE(Performed 07/29/2022) * XR CHEST 1VW PORTABLE(Performed 07/29/2022) Performed for Acute respiratory failure with hypoxia (HCC) * BLOOD GASES ART + COOX PANEL(Performed 07/29/2022) * GLUCOSE - POINT OF CARE(Performed 07/29/2022) * BLOOD GASES GUY + COOX PANEL(Performed 07/29/2022) * GLUCOSE - POINT OF CARE(Performed 07/29/2022) * HEMODIALYSIS INPATIENT(Performed 07/29/2022) * GLUCOSE - POINT OF CARE(Performed 07/29/2022) * B-TYPE NATRIURETIC PEPTIDE(Performed 07/29/2022) * CBC W AUTO DIFFERENTIAL(Performed 07/29/2022) * RENAL FUNCTION PANEL(Performed 07/29/2022) * MAGNESIUM BLOOD(Performed 07/29/2022) * GLUCOSE - POINT OF CARE(Performed 07/29/2022) * GLUCOSE - POINT OF CARE(Performed 07/29/2022) * ECHO LIMITED W BUBBLE STUDY(Performed 07/28/2022) Performed for Acute CVA (cerebrovascular accident) (HCC) * GLUCOSE - POINT OF CARE(Performed 07/28/2022) * GLUCOSE - POINT OF CARE(Performed 07/28/2022) * VAS CAROTID DUPLEX BILATERAL(Performed 07/28/2022) Performed for Cerebrovascular accident (CVA), unspecified mechanism (HCC) * ECHO COMPLETE(Performed 07/28/2022) Performed for Posterior reversible encephalopathy syndrome (PRES), Acute encephalopathy * GLUCOSE - POINT OF CARE(Performed 07/28/2022) * HEMODIALYSIS INPATIENT(Performed 07/28/2022) * GLUCOSE - POINT OF CARE(Performed 07/28/2022) * GLUCOSE - POINT OF CARE(Performed 07/28/2022) * FERRITIN(Performed 07/28/2022) * IRON + TRANSFERRIN PANEL(Performed 07/28/2022) * LIPID PROFILE(Performed 07/28/2022) * CBC W AUTO DIFFERENTIAL(Performed 07/28/2022) * RENAL FUNCTION PANEL(Performed 07/28/2022) * MAGNESIUM BLOOD(Performed 07/28/2022) * GLUCOSE - POINT OF CARE(Performed 07/27/2022) * GLUCOSE - POINT OF CARE(Performed 07/27/2022) * BLOOD GASES ART + COOX PANEL(Performed 07/27/2022) * GLUCOSE - POINT OF CARE(Performed 07/27/2022) * GLUCOSE - POINT OF CARE(Performed 07/27/2022) * GLUCOSE - POINT OF CARE(Performed 07/27/2022) * TSH REFLEX FREE T4(Performed 07/27/2022) * CBC W AUTO DIFFERENTIAL(Performed 07/27/2022) * RENAL FUNCTION PANEL(Performed 07/27/2022) * MAGNESIUM BLOOD(Performed 07/27/2022) * GLUCOSE - POINT OF CARE(Performed 07/27/2022) * GLUCOSE - POINT OF CARE(Performed 07/27/2022) * EKG 12-LEAD(Performed 07/26/2022) Performed for Posterior reversible encephalopathy syndrome (PRES) * GLUCOSE - POINT OF CARE(Performed 07/26/2022) * HEPATITIS B SURFACE ANTIBODY QUANT(Performed 07/26/2022) * HEPATITIS B SURFACE ANTIGEN W RFLX CONFIRMATION(Performed 07/26/2022) * GLUCOSE - POINT OF CARE(Performed 07/26/2022) * GLUCOSE - POINT OF CARE(Performed 07/26/2022) * HEMODIALYSIS INPATIENT(Performed 07/26/2022) * CBC W AUTO DIFFERENTIAL(Performed 07/26/2022) * RENAL FUNCTION PANEL(Performed 07/26/2022) * MAGNESIUM BLOOD(Performed 07/26/2022) * GLUCOSE - POINT OF CARE(Performed 07/26/2022) * MRI ANGIO BRAIN ARTERIAL WO CONT(Performed 07/26/2022) Performed for Unresponsive * MRI BRAIN WO CONTRAST(Performed 07/26/2022) Performed for Unresponsive * HEMOGLOBIN A1C(Performed 07/26/2022) * GLUCOSE - POINT OF CARE(Performed 07/26/2022) * GLUCOSE - POINT OF CARE(Performed 07/25/2022) * BLOOD GASES GUY + COOX PANEL(Performed 07/25/2022) * XR SKULL 3VW OR LESS(Performed 07/25/2022) Performed for Unresponsive * XR PELVIS 1 OR 2VW(Performed 07/25/2022) Performed for Unresponsive * EEG VIDEO MONITORING(Performed 07/25/2022) * BLOOD GASES ART + COOX PANEL(Performed 07/25/2022) * XR CHEST 1VW PORTABLE(Performed 07/25/2022) Performed for Unresponsive * XR ABDOMEN KUB PORTABLE(Performed 07/25/2022) Performed for Unresponsive * CULTURE URINE(Performed 07/25/2022) * PHOSPHORUS BLOOD(Performed 07/25/2022) * MAGNESIUM BLOOD(Performed 07/25/2022) * COMPREHENSIVE METABOLIC PANEL(Performed 07/25/2022) * CBC W AUTO DIFFERENTIAL(Performed 07/25/2022) * IR ANGIO AV SHUNT IMAGING(Performed 02/28/2022) Performed for ESRD (end stage renal disease) (HCC) * XR KNEE LEFT 3VW(Performed 02/19/2022) Performed for Orthopedic aftercare * XR KNEE LEFT 2VW OR LESS(Performed 01/08/2022) Performed for Closed fracture of left tibial plateau with routine healing, subsequent encounter * XR KNEE LEFT 3VW(Performed 12/11/2021) Performed for Closed fracture of left tibial plateau, initial encounter * XR KNEE LEFT 3VW(Performed 11/13/2021) Performed for Orthopedic aftercare * XR CHEST 1VW PORTABLE(Performed 10/30/2021) Performed for Fall, initial encounter * GLUCOSE - POINT OF CARE(Performed 10/30/2021) * CBC W/O DIFFERENTIAL(Performed 10/30/2021) * XR KNEE LEFT 3VW(Performed 10/30/2021) Performed for Closed fracture of left tibial plateau, initial encounter * GLUCOSE - POINT OF CARE(Performed 10/30/2021) * GLUCOSE - POINT OF CARE(Performed 10/29/2021) * PHOSPHORUS BLOOD(Performed 10/29/2021) * MAGNESIUM BLOOD(Performed 10/29/2021) * COMPREHENSIVE METABOLIC PANEL(Performed 10/29/2021) * CBC W/O DIFFERENTIAL(Performed 10/29/2021) * GLUCOSE - POINT OF CARE(Performed 10/29/2021) * GLUCOSE - POINT OF CARE(Performed 10/29/2021) * SARS-COV-2 (COVID-19) RAPID(Performed 10/29/2021) * GLUCOSE - POINT OF CARE(Performed 10/29/2021) * PHOSPHORUS BLOOD(Performed 10/29/2021) * MAGNESIUM BLOOD(Performed 10/29/2021) * COMPREHENSIVE METABOLIC PANEL(Performed 10/29/2021) * CBC W/O DIFFERENTIAL(Performed 10/29/2021) * GLUCOSE - POINT OF CARE(Performed 10/29/2021) * HEMODIALYSIS INPATIENT(Performed 10/28/2021) * GLUCOSE - POINT OF CARE(Performed 10/28/2021) * IR ANGIO AV SHUNT IMAGING(Performed 10/28/2021) Performed for ESRD (end stage renal disease) on dialysis (HCC) * GLUCOSE - POINT OF CARE(Performed 10/28/2021) * GLUCOSE - POINT OF CARE(Performed 10/28/2021) * PHOSPHORUS BLOOD(Performed 10/28/2021) * MAGNESIUM BLOOD(Performed 10/28/2021) * COMPREHENSIVE METABOLIC PANEL(Performed 10/28/2021) * CBC W/O DIFFERENTIAL(Performed 10/28/2021) * GLUCOSE - POINT OF CARE(Performed 10/28/2021) * GLUCOSE - POINT OF CARE(Performed 10/27/2021) * HEMODIALYSIS INPATIENT(Performed 10/27/2021) * GLUCOSE - POINT OF CARE(Performed 10/27/2021) * GLUCOSE - POINT OF CARE(Performed 10/27/2021) * GLUCOSE - POINT OF CARE(Performed 10/27/2021) * PHOSPHORUS BLOOD(Performed 10/27/2021) * MAGNESIUM BLOOD(Performed 10/27/2021) * COMPREHENSIVE METABOLIC PANEL(Performed 10/27/2021) * CBC W/O DIFFERENTIAL(Performed 10/27/2021) * GLUCOSE - POINT OF CARE(Performed 10/26/2021) * GLUCOSE - POINT OF CARE(Performed 10/26/2021) * GLUCOSE - POINT OF CARE(Performed 10/26/2021) * GLUCOSE - POINT OF CARE(Performed 10/26/2021) * PHOSPHORUS BLOOD(Performed 10/26/2021) * MAGNESIUM BLOOD(Performed 10/26/2021) * COMPREHENSIVE METABOLIC PANEL(Performed 10/26/2021) * CBC W/O DIFFERENTIAL(Performed 10/26/2021) * GLUCOSE - POINT OF CARE(Performed 10/25/2021) * GLUCOSE - POINT OF CARE(Performed 10/25/2021) * HEMODIALYSIS INPATIENT(Performed 10/25/2021) * SARS-COV-2 (COVID-19) RAPID(Performed 10/25/2021) * GLUCOSE - POINT OF CARE(Performed 10/25/2021) * GLUCOSE - POINT OF CARE(Performed 10/25/2021) * GLUCOSE - POINT OF CARE(Performed 10/25/2021) * HEMOGLOBIN A1C(Performed 10/25/2021) * PHOSPHORUS BLOOD(Performed 10/25/2021) * MAGNESIUM BLOOD(Performed 10/25/2021) * COMPREHENSIVE METABOLIC PANEL(Performed 10/25/2021) * CBC W/O DIFFERENTIAL(Performed 10/25/2021) * GLUCOSE - POINT OF CARE(Performed 10/24/2021) * GLUCOSE - POINT OF CARE(Performed 10/24/2021) * GLUCOSE - POINT OF CARE(Performed 10/24/2021) * HEPATITIS B SURFACE ANTIGEN W RFLX CONFIRMATION(Performed 10/24/2021) * PHOSPHORUS BLOOD(Performed 10/24/2021) * MAGNESIUM BLOOD(Performed 10/24/2021) * COMPREHENSIVE METABOLIC PANEL(Performed 10/24/2021) * CBC W/O DIFFERENTIAL(Performed 10/24/2021) * HEMODIALYSIS INPATIENT(Performed 10/23/2021) * COMPREHENSIVE METABOLIC PANEL(Performed 10/23/2021) Performed for ESRD (end stage renal disease) on dialysis ([facility]) * CBC W/O DIFFERENTIAL(Performed 10/23/2021) Performed for Aspiration pneumonia of right lower lobe, unspecified aspiration pneumonia type ([facility]) * CT HEAD WO CONTRAST(Performed 10/22/2021) Performed for Subarachnoid hemorrhage following injury, no loss of consciousness, initial encounter([facility]) * XR TIBIA FIBULA LEFT 2VW(Performed 10/22/2021) Performed for Acute pain of left knee * CT KNEE LEFT WO CONTRAST(Performed 10/22/2021) Performed for Acute pain of left knee * CT CHEST ABDOMEN PELVIS W CONT(Performed 10/22/2021) Performed for Fall, initial encounter * PTH INTACT W/O CALCIUM(Performed 10/22/2021) * XR WRIST RIGHT 3VW OR MORE(Performed 10/22/2021) Performed for Fall, initial encounter * HEMODIALYSIS INPATIENT(Performed 10/22/2021) * CT LUMBAR SPINE WO CONTRAST(Performed 10/22/2021) Performed for Fall, initial encounter * CT THORACIC SPINE WO CONTRAST(Performed 10/22/2021) Performed for Fall, initial encounter * CT CERVICAL SPINE WO CONTRAST(Performed 10/22/2021) Performed for Fall, initial encounter * CT HEAD WO CONTRAST(Performed 10/22/2021) Performed for Fall, initial encounter * XR KNEE LEFT 3VW(Performed 10/22/2021) Performed for Acute pain of left knee * XR CHEST 1VW PORTABLE(Performed 10/22/2021) Performed for Fall, initial encounter * COMPREHENSIVE METABOLIC PANEL(Performed 10/22/2021) * CBC W AUTO DIFFERENTIAL(Performed 10/22/2021) * ED LACERATION REPAIR(Performed 07/04/2021) * IR ANGIO AV SHUNT IMAGING(Performed 03/18/2021) Performed for End stage renal disease ([facility]) * IR CENTRAL LINE REMOVAL(Performed 01/09/2021) Performed for End stage renal disease ([facility]) * IR ANGIO AV SHUNT IMAGING(Performed 10/24/2020) Performed for End stage renal disease ([facility]) * VAS DIALYSIS EXIST ACCESS SCAN(Performed 08/28/2020) Performed for End stage renal disease ([facility]) * CARDIAC EKG ORDER(Performed 07/06/2020) * CREATION ARTERIOVENOUS (AV) FISTULA WITH/WITHOUT GRAFT(Performed 07/04/2020) Performed for ESRD (end stage renal disease) on dialysis ([facility]) * POTASSIUM WHOLE BLD(Performed 07/04/2020) Performed for ESRD (end stage renal disease) ([facility]) * GLUCOSE - POINT OF CARE(Performed 07/04/2020) * BASIC METABOLIC PANEL (CALCIUM TOTAL)(Performed 07/02/2020) Performed for ESRD (end stage renal disease) on dialysis ([facility]) * CBC W AUTO DIFFERENTIAL(Performed 07/02/2020) Performed for ESRD (end stage renal disease) on dialysis ([facility]) * EKG 12-LEAD(Performed 07/02/2020) Performed for Hypertension, unspecified type * VAS BILAT MAPPING FOR HEMODIALYSIS(Performed 06/22/2020) Performed for ESRD (end stage renal disease) on dialysis ([facility]) * IR CENTRAL LINE INSERT TUNNEL(Performed 05/21/2020) Performed for ESRD (end stage renal disease) ([facility]) * IR CENTRAL LINE INSERT TUNNEL(Performed 05/03/2020) Performed for ESRD (end stage renal disease) ([facility]) * OXYGEN(Performed 02/13/2020) * FL PERITONEUM(Performed 02/13/2020) Performed for End stage renal disease ([facility]) Results * SARS-COV-2 (COVID-19) RAPID (08/14/2022 10:36 AM CDT) Only the most recent of3 resultswithin the time period is included. COVID-19 PCR Not detected Not detected 08/15/19 11:18 AM CDT [facility] Microbiology SPECIMEN FROM NASOPHARYNGEAL STRUCTURE / Unknown Collection / Unknown 08/14/2022 10:36 AM CDT 08/14/2022 10:40 AM CDT Narrative [facility] - 08/14/2022 11:18 AM CDT The [employer] Xpert Xpress SARS-COV-2 has been authorized by the Food and Drug Administration (FDA) under an Emergency Use Authorization (EUA). This test has been validated in accordance with the FDA's guidance document Policy for Diagnostic Testing in Laboratories Certified to perform High Complexity Testing under CLIA prior to Emergency Use Authorization for Coronavirus Disease-2019 during the Public Health Emergency issued on May 14, 2019. FDA independent review of this validation is pending. This test is only authorized for the duration of the time the declaration that circumstances exist justifying the authorization of emergency use of in vitro diagnostic tests for detection of SARS-COV-2 virus and/or diagnosis of COVID-19 infection under 564(b) (1) of the Act. 21 U.S.C. 360bbb-3 (b) (1), unless the authorization is terminated or revoked sooner. Fact Sheets for this EUA assay are available upon request. Mary Nevarez PA-C LAB - MICROBIOLO GY ORDERABLES [address] [address], [facility] [phone] * MAGNESIUM BLOOD (08/14/2022 10:30 AM CDT) Only the most recent of27 resultswithin the time period is included. Magnesium 1.7 1.6 - 2.6 mg/dL 08/14/2022 11:22 AM CDT [facility] Blood BLOOD SPECIMEN / Unknown Lab Venipuncture / Unknown 08/14/2022 10:30 AM CDT 08/14/2022 10:50 AM CDT Michael Ordoñez CLIENT SERVICE CONSULTANT-FORMATION TESTING OPERATOR LAB - CHEMISTRY ORDERABLES [facility] [address] [place] [address], [place] [phone] * (ABNORMAL) GLUCOSE - POINT OF CARE (08/14/2022 9:18 AM CDT) Only the most recent of136 resultswithin the time period is included. Pathologist [facility] Glucose WB/POC 126(H) 70 - 115 mg/dL 08/14/2022 9:19 AM CDT [facility] Specimen Type Cap Fingerstick 2022 9:19 AM CDT [facility] Blood BLOOD SPECIMEN / Unknown 08/14/2022 9:18 AM CDT 08/14/2022 9:19 AM CDT Jason Strauss MD LAB - POINT OF CARE ORDERABLES Performing Organization Address [facility]/ZIP Co de Phone Number [address] [address], [facility] [phone] * (ABNORMAL) CBC W/O DIFFERENTIAL (08/14/2022 8:23 AM CDT) Only the most recent of16 resultswithin the time period is included. Pathologist [facility] WBC 10.7(H) 3.5 - 10.5 10? 3 /uL 08/14/2022 9:[address] [facility] RBC 3.01(L) 3.80 - 5.20 10? 6 /uL 08/14/2022 9:[address] [facility] Hemoglobin 8.5(L) 12.0 - 15.6 g/dL 08/14/2022 9:[address] [facility] Hematocrit 27.0(L) 35.0 - 45.0 % 08/14/2022 9:[address] [facility] MCV 89.7 80.7 - 98.3 fL 08/14/2022 9:[address] [facility] MCH 28.2 26.7 - 34.0 pg 08/14/2022 9:[address] [facility] MCHC 31.5 30.8 - 35.9 g/dL 08/14/2022 9:[address] [facility] RDW-SD 45.1 36.0 - 50.0 fL 08/14/2022 9:[address] [facility] RDW-CV 14.0 11.2 - 14.8 % 08/14/2022 9:[address] [facility] Platelet Count 322 150 - 400 10? 3 /uL 08/14/2022 9:[address] [facility] MPV 9.5 9.4 - 12.9 fL 08/14/2022 9:[address] [facility] nRBC Absolute 0.00 0 10? 3 /uL 08/14/2022 9:[address] [facility] nRBC Auto 0.0 0 /100 WBC 08/14/2022 9:[address] [facility] Blood BLOOD SPECIMEN / Unknown Lab Venipuncture / Unknown 08/14/2022 8:23 AM CDT 08/14/2022 9:25 AM T Michael Ordoñez CLIENT SERVICE CONSULTANT-FORMATION TESTING OPERATOR LAB - HEMATOLOGY ORDERABLES [address] [address], [facility] [phone] * (ABNORMAL) RENAL FUNCTION PANEL (08/12/2022 3:38 AM CDT) Only the most recent of17 resultswithin the time period is included. BUN 22 7 - 26 mg/dL 08/12/2022 5:[address] [facility] Creatinine 3.11(H) 0.56 - 0.96 mg/dL 08/12/2022 5:[address] [facility] Sodium 141 136 - 145 mmol/L 08/12/2022 5:[address] [facility] Potassium 4.4 3.5 - 4.5 mmol/L 08/12/2022 5:[address] [facility] Chloride 104 98 - 107 mmol/L 08/12/2022 5:[address] [facility] CO2 24 22 - 29 mmol/L 08/12/2022 5:[address] [facility] Glucose 91 70 - 115 mg/dL 08/12/2022 5:[address] [facility] Albumin 2.7(L) 3.4 - 5.0 g/dL 08/12/2022 5:[address] [facility] Calcium 9.1 8.4 - 10.2 mg/dL 08/12/2022 5:[address] [facility] Phosphorus 3.5 2.9 - 5.1 mg/dL 08/12/2022 5:[address] [facility] Anion Gap 17 8 - 18 08/12/2022 5:[address] [facility] BUN/Creatinine Ratio 7 7 - 23 08/12/2022 5:[address] [facility] Osmolality Calculated 295 270 - 300 mOsm/kg 08/12/2022 5:[address] [facility] eGFR by CKD-EPI 15(L) >=90 mL/min/1.7 3 m2 08/12/2022 5:[address] [facility] Blood BLOOD SPECIMEN / Unknown Lab Venipuncture / Unknown 08/12/2022 3:38 AM CDT 08/12/2022 4:11 AM CDT Michael Ordoñez CLIENT SERVICE CONSULTANT-FORMATION TESTING OPERATOR LAB - CHEMISTRY ORDERABLES [facility] [address] [place] [address], [facility] [phone] * (ABNORMAL) COMPREHENSIVE METABOLIC PANEL (08/11/2022 2:51 AM CDT) Only the most recent of11 resultswithin the time period is included. BUN 49(H) 7 - 26 mg/dL 08/11/2022 3:[address] [facility] Creatinine 5.48(H) 0.56 - 0.96 mg/dL 08/11/2022 3:[address] [facility] Sodium 146(H) 136 - 145 mmol/L 08/11/2022 3:[address] [facility] Potassium 4.4 3.5 - 4.5 mmol/L 08/11/2022 3:[address] [facility] Chloride 107 98 - 107 mmol/L 08/11/2022 3:[address] [facility] CO2 23 22 - 29 mmol/L 08/11/2022 3:[address] [facility] Glucose 114 70 - 115 mg/dL 08/11/2022 3:[address] [facility] Calcium 9.0 8.4 - 10.2 mg/dL 08/11/2022 3:[address] [facility] Protein Total 5.8(L) 6.0 - 8.3 g/dL 08/11/2022 3:[address] [facility] Albumin 2.6(L) 3.4 - 5.0 g/dL 08/11/2022 3:[address] [facility] Bilirubin Total 0.6 0.2 - 1.2 mg/dL 08/11/2022 3:[address] [facility] Alkaline Phosphatase 93 40 - 150 U/L 08/11/2022 3:[address] [facility] ALT 28 5 - 55 U/L 08/11/2022 3:[address] [facility] AST 18 5 - 34 U/L 08/11/2022 3:[address] [facility] Anion Gap 20(H) 8 - 18 08/11/2022 3:[address] [facility] BUN/Creatinine Ratio 9 7 - 23 08/11/2022 3:[address] [facility] Osmolality Calculated 316(H) 270 - 300 mOsm/kg 08/11/2022 3:[address] [facility] Albumin/Globulin Ratio 0.8(L) 1.1 - 2.3 08/11/2022 3:[address] [facility] eGFR by CKD-EPI 8(L) >=90 mL/min/1.7 3 m2 08/11/2022 3:[address] [facility] Blood BLOOD SPECIMEN / Unknown Venipuncture / Unknown 08/11/2022 2:51 AM CDT 08/11/2022 2:54 AM T Michael Ordoñez CLIENT SERVICE CONSULTANT-FORMATION TESTING OPERATOR LAB - CHEMISTRY ORDERABLES [facility] [address] [place] [address], [facility] [phone] * (ABNORMAL) PHOSPHORUS BLOOD (08/11/2022 2:51 AM CDT) Only the most recent of9 resultswithin the time period is included. Pathologist [facility] Phosphorus 5.3(H) 2.9 - 5.1 mg/dL 08/11/2022 3:21 AM CDT [facility] Blood BLOOD SPECIMEN / Unknown Venipuncture / Unknown 08/11/2022 2:51 AM CDT 08/11/2022 2:54 AM CDT Michael Ordoñez [facility] LAB - CHEMISTRY ORDERABLES [facility] [address] [place] [address], [facility] [phone] * CARDIAC EKG ORDER (08/06/2022 2:23 PM CDT) Only the most recent of2 resultswithin the time period is included. Narrative 08/06/2022 2:23 PM CDT Ordered by an unspecified provider. Scanned Document CARDIAC SERVICES ORD ERABLES * EKG 12-LEAD (08/06/2022 2:12 PM CDT) Only the most recent of3 resultswithin the time period is included. Ventricular Rate 76 BPM [facility] MUSE Atrial Rate 76 BPM [facility] MUSE P-R Interval 202 ms [facility] MUSE QRS Duration ms 94 ms [facility] MUSE Q-T Interval ms 424 ms [facility] MUSE QTC Calculation (Bezet) 477 ms [facility] MUSE Calculated P [place] 40 degrees SL MUSE Calculated R [place] -25 degrees SL MUSE Calculated T [place] 77 degrees [facility] MUSE Interpretation EKG NORMAL SINUS RHYTHM MINIMAL VOLTAGE CRITERIA FOR LVH, MAY BE NORMAL VARIANT ( [employer] product ) NONSPECIFIC T WAVE ABNORMALITY PROLONGED QT ABNORMAL ECG WHEN COMPARED WITH ECG OF 26-JUL-2022 20:44, PREMATURE VENTRICULAR COMPLEXES ARE NO LONGER PRESENT PREMATURE ATRIAL COMPLEXES ARE NO LONGER PRESENT T WAVE INVERSION NOW EVIDENT IN ANTERIOR LEADS Confirmed by MAR ??LUIS MODI ([id number]) on 08/08/2022 7:57:28 AM [facility] MUSE 08/06/2022 2:12 PM CDT 08/08/2022 7:57 AM CDT Judie Yuen PA-C ECG ORDERABLES [facility] MUSE * (ABNORMAL) CBC W AUTO DIFFERENTIAL (08/06/2022 1:33 AM CDT) Only the most recent of15 resultswithin the time period is included. WBC 9.9 3.5 - 10.5 10? 3 /uL 08/06/2022 2:[address] [facility] RBC 2.75(L) 3.80 - 5.20 10? 6 /uL 08/06/2022 2:[address] [facility] Hemoglobin 7.7(L) 12.0 - 15.6 g/dL 08/06/2022 2:[address] [facility] Hematocrit 23.7(L) 35.0 - 45.0 % 08/06/2022 2:[address] [facility] MCV 86.2 80.7 - 98.3 fL 08/06/2022 2:[address] [facility] MCH 28.0 26.7 - 34.0 pg 08/06/2022 2:[address] [facility] MCHC 32.5 30.8 - 35.9 g/dL 08/06/2022 2:[address] [facility] RDW-SD 46.2 36.0 - 50.0 fL 08/06/2022 2:[address] [facility] RDW-CV 14.8 11.2 - 14.8 % 08/06/2022 2:[address] [facility] Platelet Count 478(H) 150 - 400 10? 3 /uL 08/06/2022 2:[address] [facility] MPV 8.8(L) 9.4 - 12.9 fL 08/06/2022 2:[address] [facility] nRBC Absolute 0.00 0 10? 3 /uL 08/06/2022 2:[address] [facility] nRBC Auto 0.0 0 /100 WBC 08/06/2022 2:[address] [facility] Neutrophils % 68.3 35.0 - 70.0 % 08/06/2022 2:[address] [facility] Lymphocytes % 14.9(L) 20.0 - 43.0 % 08/06/2022 2:[address] [facility] Monocytes % 12.0 5.0 - 13.0 % 08/06/2022 2:[address] [facility] Eosinophils % 2.6 0.0 - 6.0 % 08/06/2022 2:[address] [facility] Basophil % 0.2 0.0 - 2.0 % 08/06/2022 2:[address] [facility] Neutrophils Absolute 6.75 1.60 - 7.00 10? 3 /uL 08/06/2022 2:[address] [facility] Lymphocyte Absolute 1.48 1.10 - 3.90 10? 3 /uL 08/06/2022 2:[address] [facility] Monocytes Absolute 1.19(H) 0.26 - 1.07 10? 3 /uL 08/06/2022 2:[address] [facility] Eosinophils Absolute 0.26 0.00 - 0.47 10? 3 /uL 08/06/2022 2:[address] [facility] Basophils Absolute 0.02 0.00 - 0.08 10? 3 /uL 08/06/2022 2:[address] [facility] Immature Granulocytes % 2.0(H) 0.0 - 1.0 % 08/06/2022 2:[address] [facility] Immature Granulocytes Absolute 0.20 08/06/2022 2:[address] [facility] Blood BLOOD SPECIMEN / Unknown Lab Venipuncture / Unknown 08/06/2022 1:33 AM CDT 08/06/2022 2:37 AM CDT Sree Wade MD LAB - HEMATOLOGY ORD ERABLES [facility] [address] [address], [facility] [phone] * VAS DIALYSIS EXIST ACCESS SCAN (08/05/2022 8:50 AM CDT) Only the most recent of2 resultswithin the time period is included. Anatomical Region Laterality Modality Lower Extremity Intravascular Ul trasound 08/05/2022 7:56 AM CDT Narrative Procedure Note Juan Carlos Mendoza MD - 08/06/2022 Jakob Hazel MD VASCULAR LAB OR DERABLES * (ABNORMAL) PTH INTACT W/O CALCIUM (07/30/2022 3:00 AM CDT) Only the most recent of2 resultswithin the time period is included. PTH Intact 328.5(H) 8.0 - 77.0 pg/mL 07/30/2022 3:39 AM CDT [facility] Blood BLOOD SPECIMEN / Unknown Venipuncture / Unknown 07/30/2022 3:00 AM CDT 07/30/2022 3:08 AM CDT Roney Manriquez MD LAB - CHEMISTRY NELLI PATEL [address] [address], [facility] [phone] * (ABNORMAL) VITAMIN D 25-HYDROXY (07/30/2022 3:00 AM CDT) Vitamin D, 25 Hydroxy 25.0(L) 30.0 - 80.0 ng/mL 07/30/2022 3:53 AM CDT [facility] Comment: The recommendations for 25-Hydroxy Vitamin D clinical decision points are as follows: ? Deficient: ? <20.0 ng/mL ? Insufficient: ? 20.0 - 29.9 ng/mL ? Sufficient: ? 30.0 - 100.0 ng/mL ? Potential Toxicity: ??>100 ng/mL Reference: The Endocrine Society Clinical Practice Guidelines. 2011 If the 25-Hydroxy Vitamin D results are inconsitent with clinical evidence, it is recommended that follow-up testing using a method such as LC/MS/MS be performed to confirm the result. ? Blood BLOOD SPECIMEN / Unknown Venipuncture / Unknown 07/30/2022 3:00 AM CDT 07/30/2022 3:08 AM CDT Roney Manriquez MD LAB - CHEMISTRY NELLI PATEL [facility] [address] [place] [address], [facility] [phone] * (ABNORMAL) BLOOD GASES ART + COOX PANEL (07/29/2022 11:15 PM CDT) Only the most recent of4 resultswithin the time period is included. pH Arterial 7.49(H) 7.35 - 7.45 pH 07/29/2022 11:[address] [facility] pO2 Arterial 96 80 - 100 mmHg 07/29/2022 11:[address] [facility] pCO2 Arterial 34(L) 35 - 45 mmHg 3 11:[address] [facility] HCO3 Arterial 25.9 20.0 - 30.0 mmol/L 07/29/2022 11:[address] [facility] BE Arterial 2.6(H) -2.0 - 2.0 mmol/L 07/29/2022 11:[address] [facility] Oxyhemoglobin Arterial 96.4 % 07/29/2022 11:[address] [facility] Dexoyhemoglobin (HHB) % 1.2 % 07/29/2022 11:[address] [facility] Methemoglobin 0.8 0.0 - 2.0 % 07/29/2022 11:23 PM CDT [facility] LAB[facility]ORY [facility] Carboxyhemoglobin 1.7 0.0 - 2.0 % 2022 11:23 PM CDT [facility] O2 Content Arterial 12.2 Interpret within clinical context ml/dL 07/29/2022 11:23 PM T [facility] Hemoglobin by COOX 8.9(L) 12.0 - 15.6 g/dL 07/29/2022 11:23 PM T [facility] O2 Saturation Arterial 99 90 - 100 % 07/29/2022 11:23 PM T [facility] FI O2 Arterial 50.0 % 07/29/2022 11:23 PM T [facility] Blood, arterial ARTERIAL BLOOD SPECIMEN / Unknown Arterial Puncture / Unknown 07/29/2022 11:15 PM CDT 07/29/2022 11:20 PM CDT Narrative [facility] LAB[facility]ATORY [facility] - 07/29/2022 11:23 PM CDT Carboxyhemoglobin Normal Concentration: Non-smokers: 0-2%; Smokers: 0-9%; Toxic: >20% Roney Manriquez MD LAB - BLOOD GASES OR DERABLES [facility] [address] [place] [address], [facility] [phone] * XR ABDOMEN KUB PORTABLE (07/29/2022 10:14 PM CDT) Only the most recent of2 resultswithin the time period is included. Anatomical Region Laterality Modality Abdomen Radiographic Carli ging 07/30/2022 7:40 AM CDT Narrative 07/30/2022 10:55 AM CDT PROCEDURE: ??XR ABDOMEN KUB PORTABLE DATE/TIME OF EXAM: ??07/29/2022 10:14 PM CLINICAL INFORMATION: None relevant/not provided if blank. Indication: J96.01: Acute respiratory failure with hypoxia (CMS/HCC) Additional History: COMPARISON: X-ray abdomen KUB 07/25/2022 FINDINGS/IMPRESSION: Enteric tube is seen coursing below the diaphragm with tip projecting in the gastric body. Report dictated by Kingsley Light MD, MD (radiology supervisor). > Dictated by Kingsley Light MD (Knocker Out) 07/30/2022 7:40 AM Balwinder Tena MD have personally reviewed and interpreted this examination/study. > Interpreting Provider: Balwinder Love MD on 07/30/2022 10:55 AM Procedure Note Balwinder Love MD - 07/30/2022 PROCEDURE: XR ABDOMEN KUB PORTABLE DATE/TIME OF EXAM: 07/29/2022 10:14 PM CLINICAL INFORMATION: None relevant/not provided if blank. Indication: J96.01: Acute respiratory failure with hypoxia (CMS/HCC) Additional History: COMPARISON: X-ray abdomen KUB 07/25/2022 FINDINGS/IMPRESSION: Enteric tube is seen coursing below the diaphragm with tip projecting in the gastric body. Report dictated by Kingsley Light MD, MD (radiology supervisor). > Dictated by Kingsley Light MD (Knocker Out) 07/30/2022 7:40 AM IBalwinder MD have personally reviewed and interpreted this examination/study. > Interpreting Provider: Balwinder Love MD on 07/30/2022 10:55 AM Roney Manriquez MD DIAGNOSTIC IMAGING O RDERABLES * XR CHEST 1VW PORTABLE (07/29/2022 10:13 PM CDT) Only the most recent of5 resultswithin the time period is included. Anatomical Region Laterality Modality Chest Radiographic Carli ging 07/30/2022 7:41 AM CDT Narrative 07/30/2022 10:55 AM CDT PROCEDURE: ??XR CHEST 1VW PORTABLE, DATE/TIME OF EXAM: ??07/29/2022 10:13 PM, LOCATION ??[facility] INDICATION: J96.01: Acute respiratory failure with hypoxia (CMS/HCC) ADDITIONAL CLINICAL INFORMATION: Ordering Provider Reason For Exam: ??ETT placement COMPARISON: Chest x-ray 07/29/2022 at 7:10 PM. TECHNIQUE: Frontal radiograph of the chest. FINDINGS/IMPRESSION: Devices/lines: *ET tube is in the midthoracic trachea above the forrest directed towards the right mainstem bronchus *Enteric tube is seen coursing below the diaphragm with tip not visualized There are patchy perihilar and bibasilar opacities suggestive of pulmonary edema with cardiomegaly and pleural effusions. Small bilateral pleural effusions. No pneumothorax. The cardiac silhouette is enlarged. The mediastinal silhouette is normal. These findings were discussed in detail with the patient's care provider, Dr. Cheng by Dr. Light via telephone at 9:22 AM on 07/20/2022 with readback comprehension and verification. Report dictated by Kingsley Light MD, MD (radiology supervisor). > Dictated by Kingsley Light MD (Knocker Out) 07/30/2022 7:41 AM Balwinder Tena MD have personally reviewed and interpreted this examination/study. > Interpreting Provider: Balwinder Love MD on 07/30/2022 10:55 AM Procedure Note Blawinder Love MD - 07/30/2022 PROCEDURE: XR CHEST 1VW PORTABLE, DATE/TIME OF EXAM: 07/29/2022 10:13PM, LOCATION [facility] INDICATION: J96.01: Acute respiratory failure with hypoxia (CMS/HCC) ADDITIONAL CLINICAL INFORMATION: Ordering Provider Reason For Exam: ETT placement COMPARISON: Chest x-ray 07/29/2022 at 7:10 PM. TECHNIQUE: Frontal radiograph of the chest. FINDINGS/IMPRESSION: Devices/lines: *ET tube is in the midthoracic trachea above the forrest directed towards the right mainstem bronchus *Enteric tube is seen coursing below the diaphragm with tip notvisualized There are patchy perihilar and bibasilar opacities suggestive ofpulmonary edema with cardiomegaly and pleural effusions. Small bilateral pleural effusions. No pneumothorax. The cardiac silhouette is enlarged. The mediastinal silhouette is normal. These findings were discussed in detail with the patient's careprovider, Dr. Cheng by Dr. Light via telephone at 9:22 AM on 07/20/2022 withreadback comprehension and verification. Report dictated by Kingsley Light MD, MD (radiology supervisor). > Dictated by Kingsley Light MD (Knocker Out) 07/30/2022 7:41 AM Balwinder Tena MD have personally reviewed and interpreted this examination/study. > Interpreting Provider: Balwinder Love MD on 07/30/2022 10:55 AM Roney Manriquez MD DIAGNOSTIC IMAGING O RDERABLES * (ABNORMAL) BLOOD GASES GUY + COOX PANEL (07/29/2022 2:49 PM CDT) Only the most recent of2 resultswithin the time period is included. pH Venous 7.53(H) 7.32 - 7.42 pH 07/29/2022 3:[address] [facility] pO2 Venous 90(H) 35 - 40 mmHg 07/29/2022 3:[address] [facility] pCO2 Venous 35(L) 40 - 50 mmHg 07/29/2022 3:[address] [facility] HCO3 Venous 29.2 20 - 30 mmol/L 07/29/2022 3:[address] [facility] Base Excess Venous 5.9(H) -2.0 - 2.0 mmol/L 07/29/2022 3:[address] [facility] Oxyhemoglobin Venous 97.1 % 07/14 3:[address] [facility] Deoxyhemoglobin (HHB) Venous % 1.0 % 07/29/2022 3:[address] [facility] Methemoglobin 0.8 0.0 - 2.0 % 07/29/2022 3:[address] [facility] Carboxyhemoglobin 1.2 0.0 - 2.0 % 2022 3:[address] [facility] O2 Content Venous 6.6 Interpret within clinical context ml/dL 07/29/2022 3:[address] [facility] Hemoglobin by COOX 4.7(LL) 12.0 - 15.6 g/dL 07/29/2022 3:[address] [facility] O2 Saturation Venous 99 >=70 % 07/14 3:[address] [facility] FI O2 Mixed Venous 24.0 % 2022 3:[address] [facility] Blood BLOOD SPECIMEN / Unknown Venipuncture / Unknown 07/29/2022 2:49 PM CDT 07/29/2022 2:51 PM CDT Narrative [facility] - 07/29/2022 3:29 PM CDT Carboxyhemoglobin Normal Concentration: Non-smokers: 0-2%; Smokers: 0-9%; Toxic: >20% Roney Manriquez MD LAB - BLOOD GASES OR DERABLES Performing Organization Address [facility] Phone Number [facility] [address] [place] [address], [facility] [phone] * (ABNORMAL) B-TYPE NATRIURETIC PEPTIDE (07/29/2022 3:37 AM CDT) [facility] BNP 602(H) <100 pg/mL 07/29/2022 4:17 AM CDT [facility] Comment: A decision threshold of 100 pg/mL has been demonstrated to provide the maximal combination of sensitivity, specificity and predictive value for the diagnosis of congestive heart failure (CHF). ??Virtually all patients with no evidence of CHF have BNP values less than 100 pg/mL. A BNP value greater than 100 pg/mL is consistent with the diagnosis of CHF in the appropriate clinical setting. In a study of 693 patients (male and female) with diagnosed CHF, the following values were determined based on the NYHA functional classification system: NYHA Functional Class ?Mean Valule (pg/mL) ? % >100 pg/mL ?I ?320 ? 58.1 ?II ? 432 ? 73.0 ?III ?656 ? 79.0 ?IV ?1635 ? 98.3 ? Blood BLOOD SPECIMEN / Unknown Venipuncture / Unknown 07/29/2022 3:37 AM CDT 07/29/2022 3:45 AM CDT Roney Manriquez MD LAB - CHEMISTRY NELLI PATEL [facility] [address] [place] [address], [facility] [phone] * ECHO LIMITED W BUBBLE STUDY (07/28/2022 10:01 PM CDT) Only the most recent of2 resultswithin the time period is included. BSA [id number] m2 [facility] CV FUJ I PACS Anatomical Region Laterality Modality Ultrasound Addenda Addendum by Lokesh Monteiro MD on 07/29/2022 9:39 AM CDT ?No evidence of right to left shunt confirmed by agitated saline contrast and by Valsalva maneuver. Left Atrium No evidence of right to left shunt confirmed by agitated saline contrast and by Valsalva maneuver. Study Details Study quality was good. The apical view was obtained. Saline ultrasound enhancing agent used. Patient exhibited sinus rhythm. Roney Manriquez MD ECHO CUPID * VAS CAROTID DUPLEX BILATERAL (07/28/2022 2:21 PM CDT) Anatomical Region Laterality Modality Neck Intravascular Ul trasound 07/28/2022 11:4 1 AM CDT Narrative Procedure Note Franki Farley MD - 07/29/2022 Sree Wade MD VASCULAR LAB ORDERAB LES * (ABNORMAL) IRON + TRANSFERRIN PANEL (07/28/2022 4:09 AM CDT) [facility] Iron 16(L) 40 - 150 ug/dL 07/28/2022 4:48 AM CDT [facility] Transferrin 124(L) 174 - 382 mg/dL 07/28/2022 4:48 AM CDT [facility] Transferrin Saturation % 10(L) 16 - 50 % 07/28/2022 4:48 AM CDT [facility] TIBC Calculated 155(L) 240 - 450 ug/dL 07/28/2022 4:48 AM CDT [facility] Blood BLOOD SPECIMEN / Unknown Venipuncture / Unknown 07/28/2022 4:09 AM CDT 07/28/2022 4:16 AM CDT Sree Wade MD LAB - CHEMISTRY NELLI PATEL [address] [address], [place] [phone] * (ABNORMAL) FERRITIN (07/28/2022 4:09 AM CDT) [facility] Ferritin 1,939(H) 13 - 204 ng/mL 07/28/2022 5:39 AM CDT [facility] Comment:Result obtained by smiley morgan. Blood BLOOD SPECIMEN / Unknown Venipuncture / Unknown 07/28/2022 4:09 AM CDT 07/28/2022 4:16 AM CDT Sree Wade MD LAB - CHEMISTRY NELLI PATEL [address] [address], [place] [phone] * (ABNORMAL) LIPID PROFILE (07/28/2022 4:09 AM CDT) [facility] Cholesterol Total 88 <200 mg/dL 07/28/2022 4:[address] [facility] HDL 23(L) >40 mg/dL 07/28/2022 4:[address] [facility] Comment: ATP III Classification of HDL Cholesterol: ? <40 mg/dL: ??Considered a major risk factor. ? >60 mg/dL: ??Considered a negative risk factor. ? LDL Calculated 37 <100 mg/dL 07/28/2022 4:[address] [facility] Comment: ATP III Classification of LDL Cholesterol: ?<100 mg/dL: ??Optimal ? 100 - 129 mg/dL: ??Near Optimal/Above Optimal ? 130 - 159 mg/dL: ??Borderline High ? 160 - 189 mg/dL: ??High ?>190 mg/dL: ??Very High ? Triglycerides 139 <150 mg/dL 07/28/2022 4:[address] [facility] Comment: ATP III Classification of Triglycerides: ?<150 mg/dL: ??Normal ? 150 - 199 mg/dL: ??Borderline High ? 200 - 400 mg/dL: ??High ?>500 mg/dL: ??Very High Blood BLOOD SPECIMEN / Unknown Venipuncture / Unknown 07/28/2022 4:09 AM CDT 07/28/2022 4:15 AM CDT Sree Wade MD LAB - CHEMISTRY NELLI Valentino Organization Address City/State/ZIP Co de Phone Number [facility] [address] [place] [id number], [place] [phone] * TSH REFLEX FREE T4 (07/27/2022 4:04 AM CDT) TSH 2.570 0.350 - 4.940 uIU/mL 07/27/2022 5:03 AM T [facility] Blood BLOOD SPECIMEN / Unknown Venipuncture / Unknown 07/27/2022 4:04 AM CDT 07/27/2022 4:15 AM CDT Sree Wade MD LAB - CHEMISTRY ORDE AMANDA Performing Organization Address City/[facility]/ZIP Co de Phone Number [id number] [place] [address], [facility] [phone] * HEPATITIS B SURFACE ANTIBODY QUANT (07/26/2022 5:15 PM CDT) [facility] Hepatitis B Virus Surface Antibody 9.22 IU/L 07/29/2022 12:05 PM CDT IDZhui Xin ([facility]) Comment: The anti-HBs is less than 10 IU/L and is therefore negative. There is no evidence of recovery from hepatitis B infection or evidence of antibody response to HBV vaccination. An anti-HBs result greater than or equal to 10 IU/L indicates immunity. Reference Interval: anti-HBs 9.99 IU/L or less ....... Negative 10.00 IU/L or greater ... Positive Results greater than 1,000.00 IU/L are reported as greater than 1,000.00 IU/L. This assay should not be used for blood donor screening, associated re-entry protocols, or for screening Human Cell, Tissues and Cellular and Tissue-Based Products (HCT/P). Performed By: [facility] [address] [place] [address] Surgical Dressing Maker: Khanh Gabriel MD, PhD Blood BLOOD SPECIMEN / Unknown Venipuncture / Unknown 07/26/2022 5:15 PM CDT 07/26/2022 5:17 PM CDT Jose Thomas MD LAB - SE ROLOGY ORDERABLES Performing Organization Address City/[facility]/ZIP Co de Phone Number [facility]) [address] * HEPATITIS B SURFACE ANTIGEN W RFLX CONFIRMATION (07/26/2022 5:15 PM CDT) Only the most recent of2 resultswithin the time period is included. Hepatitis B Virus Surface Antigen Non-reacti ve Non-reacti ve 07/26/2022 6:09 PM CDT [facility]ORY [facility] Blood BLOOD SPECIMEN / Unknown Venipuncture / Unknown 07/26/2022 5:15 PM CDT 07/26/2022 5:17 PM CDT Jose Hayder Thomas MD LAB - CH EMISTRY ORDERABLES [facility] [address] [place] [address], [facility] [phone] * MRI ANGIO BRAIN ARTERIAL WO CONT (07/26/2022 5:36 AM CDT) Anatomical Region Laterality Modality Head Magnetic Resonan ce 07/26/2022 10:5 2 PM CDT Impressions 07/27/2022 8:36 AM CDT IMPRESSION: 1.Transcortical restricted diffusion in the right occipitotemporal and parietal regions. Involvement of both MCA and INFORMATICS NURSE territories is atypical however, these findings could represent evolving acute or recent cortical border zone infarction. Differential diagnosis would include posterior reversible encephalopathy syndrome, (PRES), giving the clinical scenario, however the findings are more focal and solely unilateral. Continued attention on follow-up is recommended to evaluate interval evolution. 2.No evidence of hemorrhagic transformation. 3.Additional chronic findings as outlined above. 4.No midline shift. 5.No large vessel occlusion is identified in the head. Preliminary results were submitted in synapse by Keith Suero on 07/26/2022 at 9:06:26 AM. Results of this exam were communicated with closed loop confirmation to Dr. Kaur by Dr. Larsen on ??07/27/2022 at 7:51 AM with read back comprehension and verification. Results of this exam were communicated with closed loop confirmation to Dr. Pearson by Dr. Larsen on ??07/27/2022 at 8:16 AM with read back comprehension and verification. > Interpreting Provider: Marla Larsen MD on 07/27/2022 8:36 AM Narrative 07/27/2022 8:36 AM CDT PROCEDURE: ??MRI BRAIN WO CONTRAST, MRI ANGIO BRAIN ARTERIAL WO CONT. LOCATION ??[facility] DATE/TIME OF EXAM: ??07/26/2022 5:36 AM CLINICAL INFORMATION: None relevant/not provided if blank. Indication: R41.89: Unresponsive ADDITIONAL CLINICAL INFORMATION: Ordering Provider Reason For Exam: ??Concern for PRES, unresponsive off sedation Technologist Note: ??Does the patient have a defibrillator, pacemaker, aneurysm clips or implanted mechanical devices?->No Does the patient have metal implants or stents?->No Additional: ??77 year old lady with complex PMH here for acute encephalopathy and 2 witnessed seizyures of unknown semiology and duration. MRI on prelim shows multiple regions of diffusion restriction in R occipital lobe and T2 hyperintensities in b/l hemispheres on prelim. In the setting of HTN emergency this is concerning for PRES. MRA on prelim looks with out stenosis or occlusion. EEG showed no seizures and mild encephalopathy. Patient is following commands. Visual randolph could not be assessed. EXAMINATION: 1. Magnetic resonance imaging (MRI) of the brain without contrast 2. Magnetic resonance angiography (MRA) of the head without contrast TECHNIQUE: MRI of the brain was performed without contrast according to standard protocol. MR arteriography of the head was performed without contrast utilizing time of flight technique. COMPARISON: CT of the head from 10/22/2021. FINDINGS: Brain: No evidence of acute or chronic hemorrhage is identified. There is a region of transcortical restricted diffusion involving the right occipitotemporal and parietal regions, concerning for evolving acute infarction versus sequela of posterior reversible encephalopathy syndrome, (PRES). There is mild local mass effect with edema resulting in effacement of the overlaying sulci. There is mild to moderate cerebral volume loss with associated ex vacuo ventricular dilatation. There is asymmetric prominence of the frontal subarachnoid spaces suggesting regional atrophy. No significant mass effect or midline shift is seen. Periventricular white matter FLAIR hyperintensities likely represent sequelae of chronic small vessel ischemic disease. There is a small perivascular space, (favored) versus small chronic infarction along the posterior anterior aspect of the right basal ganglia. Smaller perivascular spaces along the posterior aspect of the left basal ganglia. The corpus callosum appears grossly unremarkable. The sella appears flattened and the pituitary height measures approximately 3.1 mm suggesting partial empty sella. The posterior fossa, brainstem, and craniocervical junction appear grossly unremarkable. The visualized portions of the orbits appear grossly unremarkable. There is diffuse paranasal sinus disease with moderate mucosal thickening in the maxillary and sphenoid sinuses and partial opacification of the ethmoid air cells and the frontal sinuses. Partial opacification of the mastoid air cells bilaterally. Normal flow voids are demonstrated in the carotid arteries and basilar artery. The calvarium and visualized cervical spine appear normal. Angiographic findings: There is atherosclerotic disease involving the distal internal carotid arteries without significant focal stenosis. The anterior and middle cerebral arteries appear normal. There is atherosclerotic disease involving the distal vertebral arteries without significant focal stenosis. The basilar artery and posterior cerebral arteries appear normal with origin of the right posterior cerebral artery. A smaller left P-comm is also noted. No aneurysms, large vessel vascular occlusions, or hemodynamically significant intracranial stenoses are identified. Procedure Note Marla Larsen MD - 07/27/2022 PROCEDURE: MRI BRAIN WO CONTRAST, MRI ANGIO BRAIN ARTERIAL WO CONT. LOCATION [facility] DATE/TIME OF EXAM: 07/26/2022 5:36 AM CLINICAL INFORMATION: None relevant/not provided if blank. Indication: R41.89: Unresponsive ADDITIONAL CLINICAL INFORMATION: Ordering Provider Reason For Exam: Concern for PRES, unresponsive off sedation Technologist Note: Does the patient have a defibrillator, pacemaker, aneurysm clips or implanted mechanical devices?->No Does the patienthave metal implants or stents?->No Additional: 77 year old lady with complex PMH here for acute encephalopathy and 2 witnessed seizyures of unknown semiology andduration. MRI on prelim shows multiple regions of diffusion restriction in R occipital lobe and T2 hyperintensities in b/l hemispheres on prelim. Inthe setting of HTN emergency this is concerning for PRES. MRA on prelimlooks with out stenosis or occlusion. EEG showed no seizures and mild encephalopathy. Patient is following commands. Visual randolph could notbe assessed. EXAMINATION: 1. Magnetic resonance imaging (MRI) of the brain without contrast 2. Magnetic resonance angiography (MRA) of the head without contrast TECHNIQUE: MRI of the brain was performed without contrast according to standard protocol. MR arteriography of the head was performed without contrast utilizing time of flight technique. COMPARISON: CT of the head from 10/22/2021. FINDINGS: Brain: No evidence of acute or chronic hemorrhage is identified. There is aregion of transcortical restricted diffusion involving the rightoccipitotemporal and parietal regions, concerning for evolving acute infarction versus sequela of posterior reversible encephalopathy syndrome, (PRES). Thereis mild local mass effect with edema resulting in effacement of theoverlaying sulci. There is mild to moderate cerebral volume loss with associated ex vacuo ventricular dilatation. There is asymmetric prominence of thefrontal subarachnoid spaces suggesting regional atrophy. No significant masseffect or midline shift is seen. Periventricular white matter FLAIR hyperintensities likely represent sequelae of chronic small vesselischemic disease. There is a small perivascular space, (favored) versus small chronic infarction along the posterior anterior aspect of the rightbasal ganglia. Smaller perivascular spaces along the posterior aspect of theleft basal ganglia. The corpus callosum appears grossly unremarkable. Thesella appears flattened and the pituitary height measures approximately 3.1 mm suggesting partial empty sella. The posterior fossa, brainstem, and craniocervical junction appear grossly unremarkable. The visualized portions of the orbits appear grossly unremarkable. Thereis diffuse paranasal sinus disease with moderate mucosal thickening in the maxillary and sphenoid sinuses and partial opacification of the ethmoidair cells and the frontal sinuses. Partial opacification of the mastoid air cells bilaterally. Normal flow voids are demonstrated in the carotid arteries and basilar artery. The calvarium and visualized cervical spine appear normal. Angiographic findings: There is atherosclerotic disease involving the distal internal carotid arteries without significant focal stenosis. The anterior and middle cerebral arteries appear normal. There is atherosclerotic diseaseinvolving the distal vertebral arteries without significant focal stenosis. The basilar artery and posterior cerebral arteries appear normal with origin of the right posterior cerebral artery. A smaller left P-comm is also noted. No aneurysms, large vessel vascular occlusions, or hemodynamically significant intracranial stenoses are identified. IMPRESSION: 1.Transcortical restricted diffusion in the right occipitotemporal and parietal regions. Involvement of both MCA and INFORMATICS NURSE territories isatypical however, these findings could represent evolving acute or recentcortical border zone infarction. Differential diagnosis would include posterior reversible encephalopathy syndrome, (PRES), giving the clinicalscenario, however the findings are more focal and solely unilateral. Continued attention on follow-up is recommended to evaluate interval evolution. 2.No evidence of hemorrhagic transformation. 3.Additional chronic findings as outlined above. 4.No midline shift. 5.No large vessel occlusion is identified in the head. Preliminary results were submitted in synapse by Keith Suero on 07/26/2022 at 9:06:26 AM. Results of this exam were communicated with closed loop confirmation toDr. Kaur by Dr. Larsen on 07/27/2022 at 7:51 AM with read backcomprehension and verification. Results of this exam were communicated with closed loop confirmation toDr. Pearson by Dr. Larsen on 07/27/2022 at 8:16 AM with read back comprehension and verification. > Interpreting Provider: Marla Larsen MD on 07/27/2022 8:36 AM Sree Wade MD MR ORDERABLES * MRI BRAIN WO CONTRAST (07/26/2022 5:36 AM CDT) Anatomical Region Laterality Modality Head Magnetic Resonan ce 07/26/2022 10:5 2 PM CDT Impressions 07/27/2022 8:36 AM CDT IMPRESSION: 1.Transcortical restricted diffusion in the right occipitotemporal and parietal regions. Involvement of both MCA and INFORMATICS NURSE territories is atypical however, these findings could represent evolving acute or recent cortical border zone infarction. Differential diagnosis would include posterior reversible encephalopathy syndrome, (PRES), giving the clinical scenario, however the findings are more focal and solely unilateral. Continued attention on follow-up is recommended to evaluate interval evolution. 2.No evidence of hemorrhagic transformation. 3.Additional chronic findings as outlined above. 4.No midline shift. 5.No large vessel occlusion is identified in the head. Preliminary results were submitted in synapse by Keith Suero on 07/26/2022 at 9:06:26 AM. Results of this exam were communicated with closed loop confirmation to Dr. Kaur by Dr. Larsen on ??07/27/2022 at 7:51 AM with read back comprehension and verification. Results of this exam were communicated with closed loop confirmation to Dr. Pearson by Dr. Larsen on ??07/27/2022 at 8:16 AM with read back comprehension and verification. > Interpreting Provider: Marla Larsen MD on 07/27/2022 8:36 AM Narrative 07/27/2022 8:36 AM CDT PROCEDURE: ??MRI BRAIN WO CONTRAST, MRI ANGIO BRAIN ARTERIAL WO CONT. LOCATION ??[facility] DATE/TIME OF EXAM: ??07/26/2022 5:36 AM CLINICAL INFORMATION: None relevant/not provided if blank. Indication: R41.89: Unresponsive ADDITIONAL CLINICAL INFORMATION: Ordering Provider Reason For Exam: ??Concern for PRES, unresponsive off sedation Technologist Note: ??Does the patient have a defibrillator, pacemaker, aneurysm clips or implanted mechanical devices?->No Does the patient have metal implants or stents?->No Additional: ??77 year old lady with complex PMH here for acute encephalopathy and 2 witnessed seizyures of unknown semiology and duration. MRI on prelim shows multiple regions of diffusion restriction in R occipital lobe and T2 hyperintensities in b/l hemispheres on prelim. In the setting of HTN emergency this is concerning for PRES. MRA on prelim looks with out stenosis or occlusion. EEG showed no seizures and mild encephalopathy. Patient is following commands. Visual randolph could not be assessed. EXAMINATION: 1. Magnetic resonance imaging (MRI) of the brain without contrast 2. Magnetic resonance angiography (MRA) of the head without contrast TECHNIQUE: MRI of the brain was performed without contrast according to standard protocol. MR arteriography of the head was performed without contrast utilizing time of flight technique. COMPARISON: CT of the head from 10/22/2021. FINDINGS: Brain: No evidence of acute or chronic hemorrhage is identified. There is a region of transcortical restricted diffusion involving the right occipitotemporal and parietal regions, concerning for evolving acute infarction versus sequela of posterior reversible encephalopathy syndrome, (PRES). There is mild local mass effect with edema resulting in effacement of the overlaying sulci. There is mild to moderate cerebral volume loss with associated ex vacuo ventricular dilatation. There is asymmetric prominence of the frontal subarachnoid spaces suggesting regional atrophy. No significant mass effect or midline shift is seen. Periventricular white matter FLAIR hyperintensities likely represent sequelae of chronic small vessel ischemic disease. There is a small perivascular space, (favored) versus small chronic infarction along the posterior anterior aspect of the right basal ganglia. Smaller perivascular spaces along the posterior aspect of the left basal ganglia. The corpus callosum appears grossly unremarkable. The sella appears flattened and the pituitary height measures approximately 3.1 mm suggesting partial empty sella. The posterior fossa, brainstem, and craniocervical junction appear grossly unremarkable. The visualized portions of the orbits appear grossly unremarkable. There is diffuse paranasal sinus disease with moderate mucosal thickening in the maxillary and sphenoid sinuses and partial opacification of the ethmoid air cells and the frontal sinuses. Partial opacification of the mastoid air cells bilaterally. Normal flow voids are demonstrated in the carotid arteries and basilar artery. The calvarium and visualized cervical spine appear normal. Angiographic findings: There is atherosclerotic disease involving the distal internal carotid arteries without significant focal stenosis. The anterior and middle cerebral arteries appear normal. There is atherosclerotic disease involving the distal vertebral arteries without significant focal stenosis. The basilar artery and posterior cerebral arteries appear normal with origin of the right posterior cerebral artery. A smaller left P-comm is also noted. No aneurysms, large vessel vascular occlusions, or hemodynamically significant intracranial stenoses are identified. Procedure Note Marla Larsen MD - 07/27/2022 PROCEDURE: MRI BRAIN WO CONTRAST, MRI ANGIO BRAIN ARTERIAL WO CONT. LOCATION [facility] DATE/TIME OF EXAM: 07/26/2022 5:36 AM CLINICAL INFORMATION: None relevant/not provided if blank. Indication: R41.89: Unresponsive ADDITIONAL CLINICAL INFORMATION: Ordering Provider Reason For Exam: Concern for PRES, unresponsive off sedation Technologist Note: Does the patient have a defibrillator, pacemaker, aneurysm clips or implanted mechanical devices?->No Does the patienthave metal implants or stents?->No Additional: 77 year old lady with complex PMH here for acute encephalopathy and 2 witnessed seizyures of unknown semiology andduration. MRI on prelim shows multiple regions of diffusion restriction in R occipital lobe and T2 hyperintensities in b/l hemispheres on prelim. Inthe setting of HTN emergency this is concerning for PRES. MRA on prelimlooks with out stenosis or occlusion. EEG showed no seizures and mild encephalopathy. Patient is following commands. Visual randolph could notbe assessed. EXAMINATION: 1. Magnetic resonance imaging (MRI) of the brain without contrast 2. Magnetic resonance angiography (MRA) of the head without contrast TECHNIQUE: MRI of the brain was performed without contrast according to standard protocol. MR arteriography of the head was performed without contrast utilizing time of flight technique. COMPARISON: CT of the head from 10/22/2021. FINDINGS: Brain: No evidence of acute or chronic hemorrhage is identified. There is aregion of transcortical restricted diffusion involving the rightoccipitotemporal and parietal regions, concerning for evolving acute infarction versus sequela of posterior reversible encephalopathy syndrome, (PRES). Thereis mild local mass effect with edema resulting in effacement of theoverlaying sulci. There is mild to moderate cerebral volume loss with associated ex vacuo ventricular dilatation. There is asymmetric prominence of thefrontal subarachnoid spaces suggesting regional atrophy. No significant masseffect or midline shift is seen. Periventricular white matter FLAIR hyperintensities likely represent sequelae of chronic small vesselischemic disease. There is a small perivascular space, (favored) versus small chronic infarction along the posterior anterior aspect of the rightbasal ganglia. Smaller perivascular spaces along the posterior aspect of theleft basal ganglia. The corpus callosum appears grossly unremarkable. Thesella appears flattened and the pituitary height measures approximately 3.1 mm suggesting partial empty sella. The posterior fossa, brainstem, and craniocervical junction appear grossly unremarkable. The visualized portions of the orbits appear grossly unremarkable. Thereis diffuse paranasal sinus disease with moderate mucosal thickening in the maxillary and sphenoid sinuses and partial opacification of the ethmoidair cells and the frontal sinuses. Partial opacification of the mastoid air cells bilaterally. Normal flow voids are demonstrated in the carotid arteries and basilar artery. The calvarium and visualized cervical spine appear normal. Angiographic findings: There is atherosclerotic disease involving the distal internal carotid arteries without significant focal stenosis. The anterior and middle cerebral arteries appear normal. There is atherosclerotic diseaseinvolving the distal vertebral arteries without significant focal stenosis. The basilar artery and posterior cerebral arteries appear normal with origin of the right posterior cerebral artery. A smaller left P-comm is also noted. No aneurysms, large vessel vascular occlusions, or hemodynamically significant intracranial stenoses are identified. IMPRESSION: 1.Transcortical restricted diffusion in the right occipitotemporal and parietal regions. Involvement of both MCA and INFORMATICS NURSE territories isatypical however, these findings could represent evolving acute or recentcortical border zone infarction. Differential diagnosis would include posterior reversible encephalopathy syndrome, (PRES), giving the clinicalscenario, however the findings are more focal and solely unilateral. Continued attention on follow-up is recommended to evaluate interval evolution. 2.No evidence of hemorrhagic transformation. 3.Additional chronic findings as outlined above. 4.No midline shift. 5.No large vessel occlusion is identified in the head. Preliminary results were submitted in synapse by Keith Suero on 07/26/2022 at 9:06:26 AM. Results of this exam were communicated with closed loop confirmation toDr. Kaur by Dr. Larsen on 07/27/2022 at 7:51 AM with read backcomprehension and verification. Results of this exam were communicated with closed loop confirmation toDr. Pearson by Dr. Larsen on 07/27/2022 at 8:16 AM with read back comprehension and verification. > Interpreting Provider: Marla Larsen MD on 07/27/2022 8:36 AM Sree Wade MD MR ORDERABLES * (ABNORMAL) HEMOGLOBIN A1C (07/26/2022 4:40 AM CDT) Only the most recent of2 resultswithin the time period is included. Hemoglobin A1c 6.1(H) <=5.6 % 07/27/2022 9:53 AM CDT [facility]AT[facility] Estimated Average Glucose 128 mg/dL 07/27/2022 9:53 AM CDT [facility] Comment: HbA1c Interpretation: Normal : < 5.7% Pre-diabetes: 5.7-6.4% Diabetes: Equal to or greater than 6.5% Test results diagnostic of diabetes should be repeated for confirmation. Treatment target values recommended by ADA and other clinical organizations should be used to evaluate metabolic control in patients. Reference: [place] [employer], Standards of Care in Diabetes -2020 In patients 70 years and older consider HbA1c target range of 7.0-7.5% (Reference: Miguel Adams, et al. JAMDA. 2012) The [employer] assay for the measurement of HbA1c is a National Glycohemoglobin Standardization Program (NGSP) certified method. Blood BLOOD SPECIMEN / Unknown Venipuncture / Unknown 07/26/2022 4:40 AM CDT 07/26/2022 4:49 AM CDT Sree Wade MD LAB - CHEMISTRY NELLI PATEL [facility] Organization Address City/State/ZIP Co de Phone Number [facility] [address] [place] [id number], [facility] [phone] * XR SKULL 3VW OR LESS (07/25/2022 10:52 PM CDT) Anatomical Region Laterality Modality Head Radiographic Carli ging 07/26/2022 9:30 AM CDT Narrative 07/26/2022 12:49 PM CDT PROCEDURE: ??XR SKULL 3VW OR LESS DATE/TIME OF EXAM: ??07/25/2022 10:52 PM CLINICAL INFORMATION: None relevant/not provided if blank. Indication: R41.89: Unresponsive Additional History: COMPARISON: None. FINDINGS/IMPRESSION: Endotracheal and enteric tube are partially visualized. Multiple dental restorations are identified. No other metallic objects. No acute calvarial fracture. No air-fluid levels within the paranasal sinuses. Severe degenerative changes in the right acromioclavicular and right glenohumeral joints. IDeejay have personally reviewed and interpreted this examination/study. > Interpreting Provider: Deejay Espinoza on 07/26/2022 12:49 PM Procedure Note Deejay Espinoza MD - 07/26/2022 PROCEDURE: XR SKULL 3VW OR LESS DATE/TIME OF EXAM: 07/25/2022 10:52 PM CLINICAL INFORMATION: None relevant/not provided if blank. Indication: R41.89: Unresponsive Additional History: COMPARISON: None. FINDINGS/IMPRESSION: Endotracheal and enteric tube are partially visualized. Multiple dental restorations are identified. No other metallic objects. No acute calvarial fracture. No air-fluid levels within the paranasal sinuses. Severe degenerative changes in the right acromioclavicular and right glenohumeral joints. IDeejay have personally reviewed and interpreted this examination/study. > Interpreting Provider: Deejay Espinoza on 07/26/2022 12:49 PM Sree Wade MD DIAGNOSTIC IMAGING O RDERABLES * XR PELVIS 1 OR 2VW (07/25/2022 10:52 PM CDT) Anatomical Region Laterality Modality Pelvis Radiographic Carli ging 07/26/2022 9:29 AM CDT Narrative 07/26/2022 12:49 PM CDT PROCEDURE: ??XR PELVIS 1 OR 2VW DATE/TIME OF EXAM: ??07/25/2022 10:52 PM CLINICAL INFORMATION: None relevant/not provided if blank. Indication: R41.89: Unresponsive Additional History: COMPARISON: None. FINDINGS/IMPRESSION: No acute fracture. The femoral heads are well-seated in the respective acetabula. Severe degenerative changes in the bilateral hip joints. Severe osteopenia. No metallic objects are seen. Extensive atherosclerotic vascular calcification. IDeejay have personally reviewed and interpreted this examination/study. > Interpreting Provider: Deejay Espinoza on 07/26/2022 12:49 PM Procedure Note Deejay Espinoza MD - 07/26/2022 PROCEDURE: XR PELVIS 1 OR 2VW DATE/TIME OF EXAM: 07/25/2022 10:52 PM CLINICAL INFORMATION: None relevant/not provided if blank. Indication: R41.89: Unresponsive Additional History: COMPARISON: None. FINDINGS/IMPRESSION: No acute fracture. The femoral heads are well-seated in the respective acetabula. Severe degenerative changes in the bilateral hip joints.Severe osteopenia. No metallic objects are seen. Extensive atherosclerotic vascular calcification. IDeejay have personally reviewed and interpreted this examination/study. > Interpreting Provider: Deejay Espinoza on 07/26/2022 12:49 PM Sree Wade MD DIAGNOSTIC IMAGING O RDERABLES * CULTURE URINE (07/25/2022 8:34 PM CDT) Culture Urine No growth (<100 CFU/mL) KERI 07/27/2022 5:33 AM CDT [facility] MICROBIOLOGY Urine URINE SPECIMEN OBTAINED BY CLEAN CATCH PROCEDURE / Unknown Collection / Unknown 07/25/2022 8:34 PM CDT 07/25/2022 8:37 PM CDT Sree Wade MD LAB - MICROBIOLOGY O RDERABLES [facility] MICROBIOLOGY [address] [place] [address], [facility] [phone] * IR ANGIO AV SHUNT IMAGING (02/28/2022 2:06 PM [employer]) Only the most recent of4 resultswithin the time period is included. Anatomical Region Laterality Modality Lower Extremity, Upper Extremity, Chest X-Ray Angiography Narrative 02/28/2022 2:16 PM Shakeel Can MD ? 02/28/2022 ??2:35 PM VASCULAR AND INTERVENTIONAL RADIOLOGY EXAMINATION: DIALYSIS FISTULAGRAM Date: 02/28/2022 History: Layla Maher is a 76 year old female with history of hypertension, diabetes, and end-stage renal disease who dialyzes through a left upper arm brachiocephalic arteriovenous fistula. ?? The patient states that she was infiltrated on Thursday with bruising. ??At dialysis today, there was difficulty cannulating the mid upper arm cephalic vein. ??The patient does note intermittent prolonged bleeding upon decannulation lasting 10-15 minutes. ??No complaints of left upper extremity swelling. ?? Fistulagram is requested. Diagnosis code: N18.6 Fluoroscopy time: ??0.2 minutes. Absorbed patient dose: ??4.38 mGy. Contrast amount: ??15 mL Isovue-300. Technique: The risks, benefits, and alternatives were discussed and informed consent was obtained. ??Prior to beginning the procedure, universal protocol was performed to confirm the patient's identity and the planned procedure. ??Maximum sterile barriers including cap, mask, hand hygiene, sterile gloves, sterile gown, large sterile drape, and 2% chlorhexidine for cutaneous antisepsis were used. Preprocedure limited left upper extremity arteriovenous fistula duplex was performed. ??There is no flow-limiting stenosis of the arteriovenous anastomosis. The skin over the left upper extremity dialysis arteriovenous brachiocephalic fistula was sterilely prepped, draped, and infiltrated with 1% lidocaine. ??Antegrade access was obtained within the juxta anastomotic antecubital cephalic vein using a micropuncture needle set followed by the placement of a 5-Zambian catheter. ??Multiple DSA images were obtained to visualize the dialysis access from the distal humeral level through the superior vena cava. ??At the end of the procedure, the 5-Zambian catheter was removed, manual pressure was held to achieve hemostasis, and a sterile dressing was applied. ??The patient tolerated the procedure well and without complications. Findings: ??Preprocedure ultrasound images demonstrated a normal sized arteriovenous anastomosis without focal stenosis. ??At the proximal/mid upper arm, the cephalic vein is deep from the skin surface. ??A moderately sized ovoid hematoma (from recent infiltration) is present adjacent to the mid upper arm cephalic vein. ??This hematoma is further increasing the depth of the cephalic vein from the skin surface. ??The cephalic vein at the antecubital fossa and distal upper arm demonstrates adequate size and is superficial. Angiographic images demonstrate a 10-20% focal non flow-limiting mid humeral level cephalic vein stenosis. ??There is no focal flow-limiting stenosis of the left cephalic arch, left subclavian vein, left brachiocephalic vein, or superior vena cava. ??Brisk flow is present within the dialysis access. IMPRESSION: Successful dialysis fistulagram failing to reveal evidence of focal flow limiting stenosis or thrombus, as described above. PLAN: ??The dialysis access is ready for immediate use. ??The skin overlying the cephalic vein at its most superficial aspects (antecubital fossa and distal upper arm) was marked to facilitate cannulation. ??Additionally, a temporary tourniquet should be placed at the proximal left upper arm prior to cannulation. ??The proximal/mid upper arm cephalic vein should not be cannulated given the depth of the cephalic vein from the skin surface. Vladislav Porras M.D. Vascular and Interventional Radiology [facility] [phone] CC: Patient's weight count operator: Dr. Jamshid Joe Dialysis unit: [facility] Jamshid Joe MD IR ORDERABLES * XR KNEE LEFT 3VW (02/19/2022 8:42 AM [employer]) Only the most recent of5 resultswithin the time period is included. Anatomical Region Laterality Modality Lower Extremity Radiographic Carli ging 02/19/2022 8:42 AM [employer] Impressions 02/19/2022 8:47 AM [employer] IMPRESSION: Unchanged alignment of tibial plateau and fibular head fractures. > Dictated by Rickey White MD (radiology supervisor) I, Nicolas Rosas MD have personally reviewed and interpreted this examination/study. > Interpreting Provider: Nicolas Rosas MD on 02/19/2022 8:47 AM Narrative 02/19/2022 8:47 AM [employer] PROCEDURE: ??XR KNEE LEFT 3VW, DATE/TIME OF EXAM: ??02/19/2022 8:42 AM, LOCATION: ??[facility] INDICATION: Z47.89: Orthopedic aftercare ADDITIONAL CLINICAL INFORMATION: Ordering Provider Reason For Exam: ??f/u Technologist Note: Additional: COMPARISON: 01/08/2022 TECHNIQUE: Frontal, lateral and sunrise radiographs of the left knee. FINDINGS: Redemonstrated depressed tibial plateau fracture more prominent laterally, unchanged in alignment. Lateral compartment joint space narrowing. 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 Fragmentation at the superior aspect of patella is noted. Mildly displaced fracture of the fibular head in unchanged osseous alignment. Trace suprapatellar effusion is noted. Mild soft tissue swelling is seen. Procedure Note Nicolas Rosas MD - 02/19/2022 PROCEDURE: XR KNEE LEFT 3VW, DATE/TIME OF EXAM: 02/19/2022 8:42 AM, LOCATION: [facility] INDICATION: Z47.89: Orthopedic aftercare ADDITIONAL CLINICAL INFORMATION: Ordering Provider Reason For Exam: f/u Technologist Note: Additional: COMPARISON: 01/08/2022 TECHNIQUE: Frontal, lateral and sunrise radiographs of the left knee. FINDINGS: Redemonstrated depressed tibial plateau fracture more prominentlaterally, unchanged in alignment. Lateral compartment joint space narrowing. Tricompartmental osteoarthritis with associated periarticular spurringand sclerosis. Fragmentation at the superior aspect of patella is noted.Mildly displaced fracture of the fibular head in unchanged osseous alignment. Trace suprapatellar effusion is noted. Mild soft tissue swelling isseen. IMPRESSION: Unchanged alignment of tibial plateau and fibular head fractures. > Dictated by Rickey White MD (radiology supervisor) I, Nicolas Rosas MD have personally reviewed and interpreted this examination/study. > Interpreting Provider: Nicolas Rosas MD on 02/19/2022 8:47 AM Dong Marquez MD DIAGNOSTIC IMAGING O RDERABLES * XR KNEE LEFT 2VW OR LESS (01/08/2022 9:04 AM CDT) Anatomical Region Laterality Modality Lower Extremity Radiographic Carli ging 01/08/2022 9:15 AM CDT Impressions 01/08/2022 9:26 AM CDT IMPRESSION: Unchanged osseous alignment tibial plateau and proximal fibular fractures. Report dictated by Lay Stinson DO (radiology supervisor). Nicolas Tena MD have personally reviewed and interpreted this examination/study. > Interpreting Provider: Nicolas Rosas MD on 01/08/2022 9:26 AM Narrative 01/08/2022 9:26 AM CDT PROCEDURE: ??XR KNEE LEFT 2VW OR LESS, DATE/TIME OF EXAM: ??01/08/2022 9:04 AM, LOCATION ??[facility] INDICATION: S82.142D: Closed fracture of left tibial plateau with routine healing, subsequent encounter ADDITIONAL CLINICAL INFORMATION: Ordering Provider Reason For Exam: ??f/u COMPARISON: Left knee dated 12/11/2021 FINDINGS: Redemonstrated depressed tibial plateau fracture, more prominent laterally. The osseous alignment is unchanged. The knee joint space laterally is diminished. Small joint effusion. Patellar spurring is noted. A proximal fibular fracture is also redemonstrated. Soft tissue swelling is present. Procedure Note Nicolas Rosas MD - 01/08/2022 PROCEDURE: XR KNEE LEFT 2VW OR LESS, DATE/TIME OF EXAM: 29:04 AM, LOCATION [facility] INDICATION: S82.142D: Closed fracture of left tibial plateau with routine healing, subsequent encounter ADDITIONAL CLINICAL INFORMATION: Ordering Provider Reason For Exam: f/u COMPARISON: Left knee dated 12/11/2021 FINDINGS: Redemonstrated depressed tibial plateau fracture, more prominentlaterally. The osseous alignment is unchanged. The knee joint space laterally is diminished. Small joint effusion. Patellar spurring is noted. A proximal fibular fracture is also redemonstrated. Soft tissue swelling ispresent. IMPRESSION: Unchanged osseous alignment tibial plateau and proximal fibular fractures. Report dictated by Lay Stinson DO (radiology supervisor). Nicolas Tena MD have personally reviewed and interpreted this examination/study. > Interpreting Provider: Nicolas Rosas MD on 01/08/2022 9:26 AM Dong Marquez MD DIAGNOSTIC IMAGING O RDERABLES * CT HEAD WO CONTRAST (10/22/2021 11:45 PM CDT) Only the most recent of2 resultswithin the time period is included. Anatomical Region Laterality Modality Head Computed Tomogra phy 10/23/2021 9:10 AM CDT Impressions 10/23/2021 10:00 AM CDT IMPRESSION: Small volume subdural hemorrhage along the right interhemispheric falx is grossly unchanged. Tiny focus of sulcal hyperintensity along the left cerebral convexity is grossly unchanged. Large posterior scalp hematoma is redemonstrated. > Interpreting Provider: Blake Salas MD on 10/23/2021 10:00 AM Narrative 10/23/2021 10:00 AM CDT INDICATION: Trauma COMPARISON: 10/22/2021 at 0828. TECHNIQUE: CT head without intravenous contrast FINDINGS: The large left posterior scalp hematoma is redemonstrated. Mild thickening of the right anterior interhemispheric falx most likely representing small volume subdural hemorrhage is grossly unchanged. The previously described tiny focus of sulcal hyperintensity along the left cerebral convexity is grossly unchanged. CSF density lesion in the lower third of the right basal ganglia which may represent a prominent perivascular space or a chronic lacunar infarct is unchanged. No significant mass effect or midline shift. No hydrocephalus. Ghotra-white matter differentiation grossly unchanged. Procedure Note Blake Salas MD - 10/23/2021 INDICATION: Trauma COMPARISON: 10/22/2021 at 0828. TECHNIQUE: CT head without intravenous contrast FINDINGS: The large left posterior scalp hematoma is redemonstrated. Mildthickening of the right anterior interhemispheric falx most likely representingsmall volume subdural hemorrhage is grossly unchanged. The previouslydescribed tiny focus of sulcal hyperintensity along the left cerebral convexity is grossly unchanged. CSF density lesion in the lower third of the rightbasal ganglia which may represent a prominent perivascular space or a chronic lacunar infarct is unchanged. No significant mass effect or midlineshift. No hydrocephalus. Ghotra-white matter differentiation grossly unchanged. IMPRESSION: Small volume subdural hemorrhage along the right interhemispheric falx is grossly unchanged. Tiny focus of sulcal hyperintensity along the left cerebral convexity is grossly unchanged. Large posterior scalp hematoma is redemonstrated. > Interpreting Provider: Blake Salas MD on 10/23/2021 10:00 AM Alex Upton MD CT ORDERABLES * XR TIBIA FIBULA LEFT 2VW (10/22/2021 3:12 PM CDT) Anatomical Region Laterality Modality Lower Extremity Radiographic Carli ging 10/22/2021 3:15 PM CDT Narrative 10/22/2021 3:42 PM CDT PROCEDURE: ??XR TIBIA FIBULA LEFT 2VW, DATE/TIME OF EXAM: ??10/22/2021 3:15 PM, LOCATION ??[facility] INDICATION: M25.562: Acute pain of left knee ADDITIONAL CLINICAL INFORMATION: Ordering Provider Reason For Exam: ??post knee-immobilizer COMPARISON: CT left knee from earlier the same day FINDINGS/IMPRESSION: Status post placement of an external brace/immobilizer. Redemonstrated comminuted, displaced fracture of the proximal tibia is again noted, further characterized on the prior CT left knee. Redemonstrated mildly displaced fracture of the fibular head. Osseous alignment is unchanged. Chondrocalcinosis is noted in the lateral compartment. Soft tissue swelling is present. Report dictated by Kaela Reyes MD (radiology supervisor). IEmilia MD have personally reviewed and interpreted this examination/study. > Interpreting Provider: Emilia Bustillo MD on 10/22/2021 3:42 PM Procedure Note Emilia Bustillo MD - 10/22/2021 PROCEDURE: XR TIBIA FIBULA LEFT 2VW, DATE/TIME OF EXAM: 10/22/2021 3:15PM, LOCATION [facility] INDICATION: M25.562: Acute pain of left knee ADDITIONAL CLINICAL INFORMATION: Ordering Provider Reason For Exam: post knee-immobilizer COMPARISON: CT left knee from earlier the same day FINDINGS/IMPRESSION: Status post placement of an external brace/immobilizer. Redemonstrated comminuted, displaced fracture of the proximal tibia is again noted, further characterized on the prior CT left knee. Redemonstrated mildly displaced fracture of the fibular head. Osseous alignment is unchanged. Chondrocalcinosis is noted in the lateral compartment. Soft tissue swelling is present. Report dictated by Kaela Reyes MD (radiology supervisor). Emilia Tena MD have personally reviewed and interpreted this examination/study. > Interpreting Provider: Emilia Bustillo MD on 10/22/2021 3:42 PM Alex Upton MD DIAGNOSTIC CARLI GING ORDERABLES * CT KNEE LEFT WO CONTRAST (10/22/2021 1:15 PM CDT) Anatomical Region Laterality Modality Lower Extremity Computed Tomogra phy 10/22/2021 1:58 PM CDT Impressions 10/22/2021 2:21 PM CDT IMPRESSION: 1.Proximal tibial fractures with involvement of the medial and lateral tibial plateau. ?? 2.Nondisplaced fibular head fracture. > Dictated by Ulises Villasenor DO (radiology supervisor). ISherly MD have personally reviewed and interpreted this examination/study. > Interpreting Provider: Sherly So MD on 10/22/2021 2:21 PM Narrative 10/22/2021 2:21 PM CDT PROCEDURE: ??CT KNEE LEFT WO CONTRAST, DATE/TIME OF EXAM: ??10/22/2021 1:16 PM, LOCATION ??[facility] INDICATION: M25.562: Acute pain of left knee ADDITIONAL CLINICAL INFORMATION: Ordering Provider Reason For Exam: ??fall with tenderness Technologist Note: Additional: COMPARISON: Left knee x-ray dated 10/22/2021 TECHNIQUE: CT of the left knee was performed without contrast utilizing standard protocol. CT dose reduction technique was used, including Automated Exposure Control. FINDINGS: Acute comminuted, mildly displaced fractures of the proximal tibia involving the medial and lateral tibial plateaus. There is approximately 4 mm depression of the posterior aspect of the lateral tibial plateau. A fracture line along the lateral tibial plateau extends down to the metadiaphysis. No significant depression of the medial tibial plateau. Acute nondisplaced fracture of the fibular head (series 7, image 30). Moderate volume hemarthrosis. Chondrocalcinosis is noted in the lateral knee compartment. Incidentally noted are degenerative changes associated with chondrocalcinosis. Procedure Note Sherly So MD - 10/22/2021 PROCEDURE: CT KNEE LEFT WO CONTRAST, DATE/TIME OF EXAM: 10/22/2021 1:16PM, LOCATION [facility] INDICATION: M25.562: Acute pain of left knee ADDITIONAL CLINICAL INFORMATION: Ordering Provider Reason For Exam: fall with tenderness Technologist Note: Additional: COMPARISON: Left knee x-ray dated 10/22/2021 TECHNIQUE: CT of the left knee was performed without contrast utilizing standard protocol. CT dose reduction technique was used, including Automated ExposureControl. FINDINGS: Acute comminuted, mildly displaced fractures of the proximal tibia involving the medial and lateral tibial plateaus. There is approximately4 mm depression of the posterior aspect of the lateral tibial plateau. A fracture line along the lateral tibial plateau extends down to the metadiaphysis. No significant depression of the medial tibial plateau. Acute nondisplaced fracture of the fibular head (series 7, image 30). Moderate volume hemarthrosis. Chondrocalcinosis is noted in the lateral knee compartment. Incidentally noted are degenerative changes associated with chondrocalcinosis. IMPRESSION: 1.Proximal tibial fractures with involvement of the medial and lateral tibial plateau. 2.Nondisplaced fibular head fracture. > Dictated by Ulises Villasenor DO (radiology supervisor). I, Sherly So MD have personally reviewed and interpreted this examination/study. > Interpreting Provider: Sherly So MD on 10/22/2021 2:21PM Alex Upton MD CT ORDERABLES * CT CHEST ABDOMEN PELVIS W CONT (10/22/2021 1:15 PM CDT) Anatomical Region Laterality Modality Chest, Abdomen, Pelvis Computed Tomography 10/22/2021 1:36 PM CDT Impressions 10/22/2021 4:34 PM CDT Impression: 1.Findings most consistent with sequela of aspiration in the right upper lower lobes. Of note, esophageal reflux places the patient at risk for aspiration. 2.Lung nodules measuring 1.7 and 0.9 cm in the right lower lobe. These nodules were stable by report on CT chest dated 11/29/[address] abdomen pelvis dated 11/21/2020. Recommend comparison with outside imaging to document stability. 3.Intrauterine extrahepatic biliary dilatation with concomitant pancreatic ductal dilatation without CT evidence of ampullary pancreatic mass. Recommend correlation with laboratory values such as LFTs, alkaline phosphatase, and pancreatic enzymes. Consideration of ERCP to evaluate for occult ampullary process should be considered. Dictated by Tay Conti MD (radiology supervisor). > Dictated by Tay Conti (Knocker Out) 10/22/2021 3:57 PM IKRISTY MD have personally reviewed and interpreted this examination/study. > Interpreting Provider: KRISTY GUNTER MD on 10/22/2021 4:34 PM Narrative 10/22/2021 4:34 PM CDT PROCEDURE: ??CT CHEST ABDOMEN PELVIS W CONT, DATE/TIME OF EXAM: ??10/22/2021 1:16 PM, LOCATION ??[facility] INDICATION: W19.XXXA: Fall, initial encounter ADDITIONAL CLINICAL INFORMATION: Ordering Provider Reason For Exam: ??fall Technologist Note: Additional: COMPARISON: None. TECHNIQUE: CT of the chest, abdomen, and pelvis was performed after the uneventful administration of 100 mL of Isovue 370 intravenous contrast according to standard protocol. Findings: Chest: Lower Neck and Axillae: Normal. Lungs: There are peripherally predominant peribronchovascular consolidations and ground glass opacities in the inferior segment right upper lobe posterior and superior segment right lower lobe superior segments. There are 1.7 cm and a 0.9 cm pulmonary nodule are seen in the right lower lobe. Dependent atelectatic changes are seen. No pleural fluid or pneumothorax is present. Heart and Pericardium: Cardiomegaly without pericardial fluid or thickening. Mediastinum and Belle: No enlarged lymph nodes are present. The esophagus is fluid-filled. Thoracic Vasculature: The aorta and its branch vessels are atherosclerotic. Abdomen/pelvis: Liver: The liver enhances homogeneously. Pancreas/Gallbladder and Bile Ducts: The gallbladder is surgically absent. There is mild diffuse intrahepatic bile duct dilatation. There is moderate diffuse dilatation of the common bile duct, measuring up to 1 cm, as well as main pancreatic, measuring up to 7 mm (series 4 image 100). No discrete ampullary or pancreatic head mass is identified. Dilatation abruptly ends at the level of the apices. The pancreas is atrophic. Spleen: Normal. Adrenals: Normal. Kidneys: Bilateral kidneys are atrophic. A 1.1 cm cyst is seen in the lower pole of the left kidney (series 4 image 114). There is a 7 mm hypodense lesion in the superior pole of the left kidney, too small to characterize (series 4 image 98). Gastrointestinal: The stomach and visualized loops of large and small bowel are unremarkable. Mesentery/Peritoneum/Retroperitoneum: No free intraperitoneal air. No free fluid in the abdomen or pelvis. Bladder: Normal. Reproductive Organs: The uterus is absent. Abdominal Vasculature: Extensive atherosclerotic calcification of the aorta and its branch vessels. There is a left renal artery stent which is patent. There is a mural noncalcified atheromatous plaque at the bifurcation of the left common iliac artery (series 4 image 145) which causes moderate stenosis. There is suggestion of bilateral femoral artery stents, partially imaged. Bones: Bone windows demonstrate no suspicious lytic or blastic lesions. The visible osseous structures are intact. Degenerative changes are seen in the spine. Soft tissues: Normal. Procedure Note Kristy Gunter MD - 10/22/2021 PROCEDURE: CT CHEST ABDOMEN PELVIS W CONT, DATE/TIME OF EXAM: 10/22/2021 1:16 PM, LOCATION [facility] INDICATION: W19.XXXA: Fall, initial encounter ADDITIONAL CLINICAL INFORMATION: Ordering Provider Reason For Exam: fall Technologist Note: Additional: COMPARISON: None. TECHNIQUE: CT of the chest, abdomen, and pelvis was performed after the uneventful administration of 100 mL of Isovue 370 intravenous contrast according to standard protocol. Findings: Chest: Lower Neck and Axillae: Normal. Lungs: There are peripherally predominant peribronchovascular consolidationsand ground glass opacities in the inferior segment right upper lobeposterior and superior segment right lower lobe superior segments. There are 1.7cm and a 0.9 cm pulmonary nodule are seen in the right lower lobe.Dependent atelectatic changes are seen. No pleural fluid or pneumothorax ispresent. Heart and Pericardium: Cardiomegaly without pericardial fluid or thickening. Mediastinum and Belle: No enlarged lymph nodes are present. The esophagus is fluid-filled. Thoracic Vasculature: The aorta and its branch vessels are atherosclerotic. Abdomen/pelvis: Liver: The liver enhances homogeneously. Pancreas/Gallbladder and Bile Ducts: The gallbladder is surgically absent. There is mild diffuse intrahepatic bile duct dilatation. There is moderate diffuse dilatation of the common bile duct, measuring up to 1 cm, as well as main pancreatic, measuringup to 7 mm (series 4 image 100). No discrete ampullary or pancreatic headmass is identified. Dilatation abruptly ends at the level of the apices. The pancreas is atrophic. Spleen: Normal. Adrenals: Normal. Kidneys: Bilateral kidneys are atrophic. A 1.1 cm cyst is seen in the lower poleof the left kidney (series 4 image 114). There is a 7 mm hypodense lesionin the superior pole of the left kidney, too small to characterize (series4 image 98). Gastrointestinal: The stomach and visualized loops of large and small bowel areunremarkable. Mesentery/Peritoneum/Retroperitoneum: No free intraperitoneal air. No free fluid in the abdomen or pelvis. Bladder: Normal. Reproductive Organs: The uterus is absent. Abdominal Vasculature: Extensive atherosclerotic calcification of the aorta and its branch vessels. There is a left renal artery stent which is patent. There is a mural noncalcified atheromatous plaque at the bifurcation of the left common iliac artery (series 4 image 145) which causes moderate stenosis. There is suggestion of bilateral femoral artery stents, partiallyimaged. Bones: Bone windows demonstrate no suspicious lytic or blastic lesions. The visible osseous structures are intact. Degenerative changes are seen inthe spine. Soft tissues: Normal. Impression: 1.Findings most consistent with sequela of aspiration in the right upper lower lobes. Of note, esophageal reflux places the patient at risk for aspiration. 2.Lung nodules measuring 1.7 and 0.9 cm in the right lower lobe. These nodules were stable by report on CT chest dated 11/29/[address] abdomen pelvis dated 11/21/2020. Recommend comparison with outside imaging to document stability. 3.Intrauterine extrahepatic biliary dilatation with concomitantpancreatic ductal dilatation without CT evidence of ampullary pancreatic mass. Recommend correlation with laboratory values such as LFTs, alkaline phosphatase, and pancreatic enzymes. Consideration of ERCP to evaluatefor occult ampullary process should be considered. Dictated by Tay Conti MD (radiology supervisor). > Dictated by Tay Conti (Knocker Out) 10/22/2021 3:57 PM KRISTY Tena MD have personally reviewed and interpreted this examination/study. > Interpreting Provider: KRISTY GUNTER MD on 10/22/2021 4:34 PM Alex Upton MD CT ORDERABLES * XR WRIST RIGHT 3VW OR MORE (10/22/2021 9:53 AM CDT) Anatomical Region Laterality Modality Wrist / Hand Radiographic Carli ging 10/22/2021 9:55 AM CDT Impressions 10/22/2021 11:31 AM CDT IMPRESSION: 1.Likely subacute fracture deformity (corresponding with patient's history) of the radial styloid process with overlying soft tissue swelling. Acute on subacute injury cannot be excluded. Correlation with prior radiographs, if available, is recommended. 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 Report dictated by Kaela Reyes MD (radiology supervisor). > Dictated by Kaela Reyes (Knocker Out) 10/22/2021 11:08 AM KRISTY Tena MD have personally reviewed and interpreted this examination/study. > Interpreting Provider: KRISTY GUNTER MD on 10/22/2021 11:31 AM Narrative 10/22/2021 11:31 AM CDT PROCEDURE: ??XR WRIST RIGHT 3VW OR MORE, DATE/TIME OF EXAM: ??10/22/2021 9:53 AM, LOCATION ??[facility] INDICATION: W19.XXXA: Fall, initial encounter ADDITIONAL CLINICAL INFORMATION: Ordering Provider Reason For Exam: ??prior fx, new fall Technologist Note: Additional: COMPARISON: None. FINDINGS: No acute fracture or subluxation. Subacute fracture deformity of the radial styloid process. Posttraumatic/degenerative osteoarthritis involving the 1st and 2nd carpometacarpal joint spaces. Chondrocalcinosis of the TFC. The bones are diffusely demineralized. Soft tissue swelling is noted at the radial aspect of the wrist. Procedure Note Kristy Gunter MD - 10/22/2021 PROCEDURE: XR WRIST RIGHT 3VW OR MORE, DATE/TIME OF EXAM: 29:53 AM, LOCATION [facility] INDICATION: W19.XXXA: Fall, initial encounter ADDITIONAL CLINICAL INFORMATION: Ordering Provider Reason For Exam: prior fx, new fall Technologist Note: Additional: COMPARISON: None. FINDINGS: No acute fracture or subluxation. Subacute fracture deformity of theradial styloid process. Posttraumatic/degenerative osteoarthritis involving the 1st and 2nd carpometacarpal joint spaces. Chondrocalcinosis of the TFC.The bones are diffusely demineralized. Soft tissue swelling is noted at the radial aspect of the wrist. IMPRESSION: 1.Likely subacute fracture deformity (corresponding with patient'shistory) of the radial styloid process with overlying soft tissue swelling. Acuteon subacute injury cannot be excluded. Correlation with prior radiographs,if available, is recommended. 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 Report dictated by Kaela Reyes MD (radiology supervisor). > Dictated by Kaela Reyes (Knocker Out) 10/22/2021 11:08 AM KRISTY Tena MD have personally reviewed and interpreted this examination/study. > Interpreting Provider: KRISTY GUNTER MD on 10/22/2021 11:31 AM Alex Upton MD DIAGNOSTIC CARLI GING ORDERABLES * CT LUMBAR SPINE WO CONTRAST (10/22/2021 8:45 AM CDT) Anatomical Region Laterality Modality Spine Computed Tomogra phy 10/22/2021 8:51 AM CDT Impressions 10/22/2021 10:31 AM CDT IMPRESSION: 1.Minimal hyperdensity in the left frontoparietal sulci along the inferior aspect of the left central sulcus, may represent small volume subarachnoid hemorrhage. Attention on follow-up is recommended. 2.Otherwise, no evidence of acute intracranial hemorrhage, mass effect, shift. 3.No evidence of acute fracture in the cervical, thoracic, or lumbar spine. 4.Recommend CT chest, abdomen, and pelvis for further evaluation of pulmonary findings. Report dictated by Yonas Saunders MD, PhD (radiology supervisor). Marla Tena MD have personally reviewed and interpreted this examination/study. > Interpreting Provider: Marla Larsen MD on 10/22/2021 10:31 AM Narrative 10/22/2021 10:31 AM CDT PROCEDURE: ??CT HEAD WO CONTRAST, CT LUMBAR SPINE WO CONTRAST, CT THORACIC SPINE WO CONTRAST, CT CERVICAL SPINE WO CONTRAST, DATE/TIME OF EXAM: 10/22/2021 8:46 AM, LOCATION ??[facility] INDICATION: W19.XXXA: Fall, initial encounter ADDITIONAL CLINICAL INFORMATION: Ordering Provider Reason For Exam: ??fall, scalp hematoma over L (accession [id number]), fracture (accession [id number]), fracture (accession [id number]), fall (accession [id number]) Technologist Note: ??None Additional: ??None COMPARISON: None. CT HEAD WO CONTRAST, CT LUMBAR SPINE WO CONTRAST, CT THORACIC SPINE WO CONTRAST, CT CERVICAL SPINE WO CONTRAST DATE: 10/22/2021 8:46 AM EXAMINATION: 1.Computed tomography (CT) of the head without contrast 2.CT of the cervical spine without contrast 3.CT of the thoracic spine without contrast 4.CT of the lumbar spine without contrast HISTORY: W19.XXXA: Fall, initial encounter TECHNIQUE: CT of the head and cervical, thoracic, and lumbar spine was performed without contrast according to standard protocol. FINDINGS: Head: There is a large volume hematoma overlying the left occipital scalp, measuring approximately 1.7 cm in thickness, (series 3, image 20). There is prominence of the extra-axial subarachnoid spaces over the bilateral frontal sulci. There is a punctate hyperdensity in the left frontoparietal sulci along the inferior aspect of the left central sulcus, which may represent small volume subarachnoid hemorrhage (series 4, image 15). There is mild cerebral volume loss with associated ex vacuo ventricular dilatation. Prominence of the subarachnoid spaces along the anterior frontal regions. The basilar cisterns are patent. No mass effect or midline shift is seen. The ghotra-white matter differentiation is normal. Periventricular white matter hypoattenuation is indicative of chronic small vessel ischemic disease. There is vascular calcification of the carotid siphons. No acute calvarial fracture is identified.. The orbits appear normal. There is mild mucosal thickening of the bilateral maxillary sinuses. Otherwise, the paranasal sinuses are clear. The mastoid air cells are clear. There is an enlarged right submandibular gland with no adjacent fat stranding. Cervical spine: The curvature of the spine is normal. There is a 1 mm anterolisthesis of C3 on C4. Vertebral bodies are normal in height without evidence of acute fracture. Other than middle atlantoaxial joint osteoarthritis, the craniocervical junction appears normal. There is mild degenerative disc disease specifically at C5-C6 and C6-C7. No significant/high-grade central canal stenosis is seen. There are varying degrees of mild facet osteoarthritis. There are varying degrees of mild uncovertebral joint osteoarthritis there is moderate bilateral neuroforaminal stenosis at C5-C6. There is atherosclerotic calcification of the carotid bifurcations. Retropharyngeal course of the vertebral arteries. Thoracic spine: There is moderate kyphosis centered at T8-T9 with levorotation. Vertebral bodies are normal in height without evidence of acute fracture. There is advanced degenerative disc disease. No high-grade spinal canal stenosis is identified. There is mild facet osteoarthritis at multiple levels. No significant/high-grade neural foraminal stenosis is seen. Borderline left atrial enlargement. Calcification along the mitral annulus. Suspected coronary artery calcification. There is a partially visualized pulmonary consolidation in the right lung field, which may represent aspiration. There is a pulmonary nodule in the right lung base measuring 5 mm in diameter (series 4, image 148). Lumbar spine: Mild exaggeration of the lumbar lordosis. The alignment is otherwise maintained. Vertebral bodies are normal in height without evidence of acute fracture. There is advanced degenerative disc disease. No significant/high-grade central canal stenosis is seen. There is mild facet osteoarthritis at multiple levels. There are varying degrees of neural foraminal stenosis at multiple levels. There is atherosclerotic calcification of the abdominal aorta and its branch vessels. There are degenerative changes of the SI joints. Procedure Note Marla Larsen MD - 10/22/2021 PROCEDURE: CT HEAD WO CONTRAST, CT LUMBAR SPINE WO CONTRAST, CTTHORACIC SPINE WO CONTRAST, CT CERVICAL SPINE WO CONTRAST, DATE/TIME OF EXAM: 10/22/2021 8:46 AM, LOCATION [facility] INDICATION: W19.XXXA: Fall, initial encounter ADDITIONAL CLINICAL INFORMATION: Ordering Provider Reason For Exam: fall, scalp hematoma over L(accession [id number]), fracture (accession [id number]), fracture ([id number]), fall (accession [id number]) Technologist Note: None Additional: None COMPARISON: None. CT HEAD WO CONTRAST, CT LUMBAR SPINE WO CONTRAST, CT THORACIC SPINE WO CONTRAST, CT CERVICAL SPINE WO CONTRAST DATE: 10/22/2021 8:46 AM EXAMINATION: 1.Computed tomography (CT) of the head without contrast 2.CT of the cervical spine without contrast 3.CT of the thoracic spine without contrast 4.CT of the lumbar spine without contrast HISTORY: W19.XXXA: Fall, initial encounter TECHNIQUE: CT of the head and cervical, thoracic, and lumbar spine was performed without contrast according to standard protocol. FINDINGS: Head: There is a large volume hematoma overlying the left occipital scalp, measuring approximately 1.7 cm in thickness, (series 3, image 20). Thereis prominence of the extra-axial subarachnoid spaces over the bilateral frontal sulci. There is a punctate hyperdensity in the left frontoparietal sulci alongthe inferior aspect of the left central sulcus, which may represent small volume subarachnoid hemorrhage (series 4, image 15). There is mildcerebral volume loss with associated ex vacuo ventricular dilatation. Prominenceof the subarachnoid spaces along the anterior frontal regions. The basilar cisterns are patent. No mass effect or midline shift is seen. The ghotra-white matter differentiation is normal. Periventricular whitematter hypoattenuation is indicative of chronic small vessel ischemic disease. There is vascular calcification of the carotid siphons. No acutecalvarial fracture is identified.. The orbits appear normal. There is mild mucosal thickening of the bilateral maxillary sinuses. Otherwise, the paranasal sinuses are clear. The mastoid air cells are clear. There is an enlarged right submandibular gland with no adjacent fat stranding. Cervical spine: The curvature of the spine is normal. There is a 1 mm anterolisthesis ofC3 on C4. Vertebral bodies are normal in height without evidence of acute fracture. Other than middle atlantoaxial joint osteoarthritis, the craniocervical junction appears normal. There is mild degenerative disc disease specifically at C5-C6 and C6-C7. No significant/high-gradecentral canal stenosis is seen. There are varying degrees of mild facet osteoarthritis. There are varying degrees of mild uncovertebral joint osteoarthritis there is moderate bilateral neuroforaminal stenosis at C5-C6. There is atherosclerotic calcification of the carotidbifurcations. Retropharyngeal course of the vertebral arteries. Thoracic spine: There is moderate kyphosis centered at T8-T9 with levorotation.Vertebral bodies are normal in height without evidence of acute fracture. There is advanced degenerative disc disease. No high-grade spinal canal stenosisis identified. There is mild facet osteoarthritis at multiple levels. No significant/high-grade neural foraminal stenosis is seen. Borderlineleft atrial enlargement. Calcification along the mitral annulus. Suspected coronary artery calcification. There is a partially visualized pulmonary consolidation in the right lung field, which may represent aspiration. There is a pulmonary nodule in the right lung base measuring 5 mm in diameter (series 4, image 148). Lumbar spine: Mild exaggeration of the lumbar lordosis. The alignment is otherwise maintained. Vertebral bodies are normal in height without evidence ofacute fracture. There is advanced degenerative disc disease. No significant/high-grade central canal stenosis is seen. There is mildfacet osteoarthritis at multiple levels. There are varying degrees of neural foraminal stenosis at multiple levels. There is atherosclerotic calcification of the abdominal aorta and its branch vessels. There are degenerative changes of the SI joints. IMPRESSION: 1.Minimal hyperdensity in the left frontoparietal sulci along theinferior aspect of the left central sulcus, may represent small volumesubarachnoid hemorrhage. Attention on follow-up is recommended. 2.Otherwise, no evidence of acute intracranial hemorrhage, mass effect, shift. 3.No evidence of acute fracture in the cervical, thoracic, or lumbarspine. 4.Recommend CT chest, abdomen, and pelvis for further evaluation of pulmonary findings. Report dictated by Yonas Saunders MD, PhD (radiology supervisor). I, Marla Larsen MD have personally reviewed and interpretedthis examination/study. > Interpreting Provider: Marla Larsen MD on 10/22/2021 10:31 AM Alex Upton MD CT ORDERABLES * CT THORACIC SPINE WO CONTRAST (10/22/2021 8:45 AM CDT) Anatomical Region Laterality Modality Spine Computed Tomogra phy 10/22/2021 8:51 AM CDT Impressions 10/22/2021 10:31 AM CDT IMPRESSION: 1.Minimal hyperdensity in the left frontoparietal sulci along the inferior aspect of the left central sulcus, may represent small volume subarachnoid hemorrhage. Attention on follow-up is recommended. 2.Otherwise, no evidence of acute intracranial hemorrhage, mass effect, shift. 3.No evidence of acute fracture in the cervical, thoracic, or lumbar spine. 4.Recommend CT chest, abdomen, and pelvis for further evaluation of pulmonary findings. Report dictated by Yonas Saunders MD, PhD (radiology supervisor). I, Marla Larsen MD have personally reviewed and interpreted this examination/study. > Interpreting Provider: Marla Larsen MD on 10/22/2021 10:31 AM Narrative 10/22/2021 10:31 AM CDT PROCEDURE: ??CT HEAD WO CONTRAST, CT LUMBAR SPINE WO CONTRAST, CT THORACIC SPINE WO CONTRAST, CT CERVICAL SPINE WO CONTRAST, DATE/TIME OF EXAM: 10/22/2021 8:46 AM, LOCATION ??[facility] INDICATION: W19.XXXA: Fall, initial encounter ADDITIONAL CLINICAL INFORMATION: Ordering Provider Reason For Exam: ??fall, scalp hematoma over L (accession [id number]), fracture (accession [id number]), fracture (accession [id number]), fall (accession [id number]) Technologist Note: ??None Additional: ??None COMPARISON: None. CT HEAD WO CONTRAST, CT LUMBAR SPINE WO CONTRAST, CT THORACIC SPINE WO CONTRAST, CT CERVICAL SPINE WO CONTRAST DATE: 10/22/2021 8:46 AM EXAMINATION: 1.Computed tomography (CT) of the head without contrast 2.CT of the cervical spine without contrast 3.CT of the thoracic spine without contrast 4.CT of the lumbar spine without contrast HISTORY: W19.XXXA: Fall, initial encounter TECHNIQUE: CT of the head and cervical, thoracic, and lumbar spine was performed without contrast according to standard protocol. FINDINGS: Head: There is a large volume hematoma overlying the left occipital scalp, measuring approximately 1.7 cm in thickness, (series 3, image 20). There is prominence of the extra-axial subarachnoid spaces over the bilateral frontal sulci. There is a punctate hyperdensity in the left frontoparietal sulci along the inferior aspect of the left central sulcus, which may represent small volume subarachnoid hemorrhage (series 4, image 15). There is mild cerebral volume loss with associated ex vacuo ventricular dilatation. Prominence of the subarachnoid spaces along the anterior frontal regions. The basilar cisterns are patent. No mass effect or midline shift is seen. The ghotra-white matter differentiation is normal. Periventricular white matter hypoattenuation is indicative of chronic small vessel ischemic disease. There is vascular calcification of the carotid siphons. No acute calvarial fracture is identified.. The orbits appear normal. There is mild mucosal thickening of the bilateral maxillary sinuses. Otherwise, the paranasal sinuses are clear. The mastoid air cells are clear. There is an enlarged right submandibular gland with no adjacent fat stranding. Cervical spine: The curvature of the spine is normal. There is a 1 mm anterolisthesis of C3 on C4. Vertebral bodies are normal in height without evidence of acute fracture. Other than middle atlantoaxial joint osteoarthritis, the craniocervical junction appears normal. There is mild degenerative disc disease specifically at C5-C6 and C6-C7. No significant/high-grade central canal stenosis is seen. There are varying degrees of mild facet osteoarthritis. There are varying degrees of mild uncovertebral joint osteoarthritis there is moderate bilateral neuroforaminal stenosis at C5-C6. There is atherosclerotic calcification of the carotid bifurcations. Retropharyngeal course of the vertebral arteries. Thoracic spine: There is moderate kyphosis centered at T8-T9 with levorotation. Vertebral bodies are normal in height without evidence of acute fracture. There is advanced degenerative disc disease. No high-grade spinal canal stenosis is identified. There is mild facet osteoarthritis at multiple levels. No significant/high-grade neural foraminal stenosis is seen. Borderline left atrial enlargement. Calcification along the mitral annulus. Suspected coronary artery calcification. There is a partially visualized pulmonary consolidation in the right lung field, which may represent aspiration. There is a pulmonary nodule in the right lung base measuring 5 mm in diameter (series 4, image 148). Lumbar spine: Mild exaggeration of the lumbar lordosis. The alignment is otherwise maintained. Vertebral bodies are normal in height without evidence of acute fracture. There is advanced degenerative disc disease. No significant/high-grade central canal stenosis is seen. There is mild facet osteoarthritis at multiple levels. There are varying degrees of neural foraminal stenosis at multiple levels. There is atherosclerotic calcification of the abdominal aorta and its branch vessels. There are degenerative changes of the SI joints. Procedure Note Marla Larsen MD - 10/22/2021 PROCEDURE: CT HEAD WO CONTRAST, CT LUMBAR SPINE WO CONTRAST, CTTHORACIC SPINE WO CONTRAST, CT CERVICAL SPINE WO CONTRAST, DATE/TIME OF EXAM: 10/22/2021 8:46 AM, LOCATION [facility] INDICATION: W19.XXXA: Fall, initial encounter ADDITIONAL CLINICAL INFORMATION: Ordering Provider Reason For Exam: fall, scalp hematoma over L(accession [id number]), fracture (accession [id number]), fracture ([id number]), fall (accession [id number]) Technologist Note: None Additional: None COMPARISON: None. CT HEAD WO CONTRAST, CT LUMBAR SPINE WO CONTRAST, CT THORACIC SPINE WO CONTRAST, CT CERVICAL SPINE WO CONTRAST DATE: 10/22/2021 8:46 AM EXAMINATION: 1.Computed tomography (CT) of the head without contrast 2.CT of the cervical spine without contrast 3.CT of the thoracic spine without contrast 4.CT of the lumbar spine without contrast HISTORY: W19.XXXA: Fall, initial encounter TECHNIQUE: CT of the head and cervical, thoracic, and lumbar spine was performed without contrast according to standard protocol. FINDINGS: Head: There is a large volume hematoma overlying the left occipital scalp, measuring approximately 1.7 cm in thickness, (series 3, image 20). Thereis prominence of the extra-axial subarachnoid spaces over the bilateral frontal sulci. There is a punctate hyperdensity in the left frontoparietal sulci alongthe inferior aspect of the left central sulcus, which may represent small volume subarachnoid hemorrhage (series 4, image 15). There is mildcerebral volume loss with associated ex vacuo ventricular dilatation. Prominenceof the subarachnoid spaces along the anterior frontal regions. The basilar cisterns are patent. No mass effect or midline shift is seen. The ghotra-white matter differentiation is normal. Periventricular whitematter hypoattenuation is indicative of chronic small vessel ischemic disease. There is vascular calcification of the carotid siphons. No acutecalvarial fracture is identified.. The orbits appear normal. There is mild mucosal thickening of the bilateral maxillary sinuses. Otherwise, the paranasal sinuses are clear. The mastoid air cells are clear. There is an enlarged right submandibular gland with no adjacent fat stranding. Cervical spine: The curvature of the spine is normal. There is a 1 mm anterolisthesis ofC3 on C4. Vertebral bodies are normal in height without evidence of acute fracture. Other than middle atlantoaxial joint osteoarthritis, the craniocervical junction appears normal. There is mild degenerative disc disease specifically at C5-C6 and C6-C7. No significant/high-gradecentral canal stenosis is seen. There are varying degrees of mild facet osteoarthritis. There are varying degrees of mild uncovertebral joint osteoarthritis there is moderate bilateral neuroforaminal stenosis at C5-C6. There is atherosclerotic calcification of the carotidbifurcations. Retropharyngeal course of the vertebral arteries. Thoracic spine: There is moderate kyphosis centered at T8-T9 with levorotation.Vertebral bodies are normal in height without evidence of acute fracture. There is advanced degenerative disc disease. No high-grade spinal canal stenosisis identified. There is mild facet osteoarthritis at multiple levels. No significant/high-grade neural foraminal stenosis is seen. Borderlineleft atrial enlargement. Calcification along the mitral annulus. Suspected coronary artery calcification. There is a partially visualized pulmonary consolidation in the right lung field, which may represent aspiration. There is a pulmonary nodule in the right lung base measuring 5 mm in diameter (series 4, image 148). Lumbar spine: Mild exaggeration of the lumbar lordosis. The alignment is otherwise maintained. Vertebral bodies are normal in height without evidence ofacute fracture. There is advanced degenerative disc disease. No significant/high-grade central canal stenosis is seen. There is mildfacet osteoarthritis at multiple levels. There are varying degrees of neural foraminal stenosis at multiple levels. There is atherosclerotic calcification of the abdominal aorta and its branch vessels. There are degenerative changes of the SI joints. IMPRESSION: 1.Minimal hyperdensity in the left frontoparietal sulci along theinferior aspect of the left central sulcus, may represent small volumesubarachnoid hemorrhage. Attention on follow-up is recommended. 2.Otherwise, no evidence of acute intracranial hemorrhage, mass effect, shift. 3.No evidence of acute fracture in the cervical, thoracic, or lumbarspine. 4.Recommend CT chest, abdomen, and pelvis for further evaluation of pulmonary findings. Report dictated by Yonas Saunders MD, PhD (radiology supervisor). IMarla MD have personally reviewed and interpretedthis examination/study. > Interpreting Provider: Marla Larsen MD on 10/22/2021 10:31 AM Alex Upton MD CT ORDERABLES * CT CERVICAL SPINE NON CONTRAST - suspected c-spine fracture (10/22/2021 8:45 AM CDT) Anatomical Region Laterality Modality Spine Computed Tomogra phy 10/22/2021 8:51 AM CDT Impressions 10/22/2021 10:31 AM CDT IMPRESSION: 1.Minimal hyperdensity in the left frontoparietal sulci along the inferior aspect of the left central sulcus, may represent small volume subarachnoid hemorrhage. Attention on follow-up is recommended. 2.Otherwise, no evidence of acute intracranial hemorrhage, mass effect, shift. 3.No evidence of acute fracture in the cervical, thoracic, or lumbar spine. 4.Recommend CT chest, abdomen, and pelvis for further evaluation of pulmonary findings. Report dictated by Yonas Saunders MD, PhD (radiology supervisor). I, Marla Larsen MD have personally reviewed and interpreted this examination/study. > Interpreting Provider: Marla Larsen MD on 10/22/2021 10:31 AM Narrative 10/22/2021 10:31 AM CDT PROCEDURE: ??CT HEAD WO CONTRAST, CT LUMBAR SPINE WO CONTRAST, CT THORACIC SPINE WO CONTRAST, CT CERVICAL SPINE WO CONTRAST, DATE/TIME OF EXAM: 10/22/2021 8:46 AM, LOCATION ??[facility] INDICATION: W19.XXXA: Fall, initial encounter ADDITIONAL CLINICAL INFORMATION: Ordering Provider Reason For Exam: ??fall, scalp hematoma over L (accession [id number]), fracture (accession [id number]), fracture (accession [id number]), fall (accession [id number]) Technologist Note: ??None Additional: ??None COMPARISON: None. CT HEAD WO CONTRAST, CT LUMBAR SPINE WO CONTRAST, CT THORACIC SPINE WO CONTRAST, CT CERVICAL SPINE WO CONTRAST DATE: 10/22/2021 8:46 AM EXAMINATION: 1.Computed tomography (CT) of the head without contrast 2.CT of the cervical spine without contrast 3.CT of the thoracic spine without contrast 4.CT of the lumbar spine without contrast HISTORY: W19.XXXA: Fall, initial encounter TECHNIQUE: CT of the head and cervical, thoracic, and lumbar spine was performed without contrast according to standard protocol. FINDINGS: Head: There is a large volume hematoma overlying the left occipital scalp, measuring approximately 1.7 cm in thickness, (series 3, image 20). There is prominence of the extra-axial subarachnoid spaces over the bilateral frontal sulci. There is a punctate hyperdensity in the left frontoparietal sulci along the inferior aspect of the left central sulcus, which may represent small volume subarachnoid hemorrhage (series 4, image 15). There is mild cerebral volume loss with associated ex vacuo ventricular dilatation. Prominence of the subarachnoid spaces along the anterior frontal regions. The basilar cisterns are patent. No mass effect or midline shift is seen. The ghotra-white matter differentiation is normal. Periventricular white matter hypoattenuation is indicative of chronic small vessel ischemic disease. There is vascular calcification of the carotid siphons. No acute calvarial fracture is identified.. The orbits appear normal. There is mild mucosal thickening of the bilateral maxillary sinuses. Otherwise, the paranasal sinuses are clear. The mastoid air cells are clear. There is an enlarged right submandibular gland with no adjacent fat stranding. Cervical spine: The curvature of the spine is normal. There is a 1 mm anterolisthesis of C3 on C4. Vertebral bodies are normal in height without evidence of acute fracture. Other than middle atlantoaxial joint osteoarthritis, the craniocervical junction appears normal. There is mild degenerative disc disease specifically at C5-C6 and C6-C7. No significant/high-grade central canal stenosis is seen. There are varying degrees of mild facet osteoarthritis. There are varying degrees of mild uncovertebral joint osteoarthritis there is moderate bilateral neuroforaminal stenosis at C5-C6. There is atherosclerotic calcification of the carotid bifurcations. Retropharyngeal course of the vertebral arteries. Thoracic spine: There is moderate kyphosis centered at T8-T9 with levorotation. Vertebral bodies are normal in height without evidence of acute fracture. There is advanced degenerative disc disease. No high-grade spinal canal stenosis is identified. There is mild facet osteoarthritis at multiple levels. No significant/high-grade neural foraminal stenosis is seen. Borderline left atrial enlargement. Calcification along the mitral annulus. Suspected coronary artery calcification. There is a partially visualized pulmonary consolidation in the right lung field, which may represent aspiration. There is a pulmonary nodule in the right lung base measuring 5 mm in diameter (series 4, image 148). Lumbar spine: Mild exaggeration of the lumbar lordosis. The alignment is otherwise maintained. Vertebral bodies are normal in height without evidence of acute fracture. There is advanced degenerative disc disease. No significant/high-grade central canal stenosis is seen. There is mild facet osteoarthritis at multiple levels. There are varying degrees of neural foraminal stenosis at multiple levels. There is atherosclerotic calcification of the abdominal aorta and its branch vessels. There are degenerative changes of the SI joints. Procedure Note Marla Larsen MD - 10/22/2021 PROCEDURE: CT HEAD WO CONTRAST, CT LUMBAR SPINE WO CONTRAST, CTTHORACIC SPINE WO CONTRAST, CT CERVICAL SPINE WO CONTRAST, DATE/TIME OF EXAM: 10/22/2021 8:46 AM, LOCATION [facility] INDICATION: W19.XXXA: Fall, initial encounter ADDITIONAL CLINICAL INFORMATION: Ordering Provider Reason For Exam: fall, scalp hematoma over L(accession [id number]), fracture (accession [id number]), fracture ([id number]), fall (accession [id number]) Technologist Note: None Additional: None COMPARISON: None. CT HEAD WO CONTRAST, CT LUMBAR SPINE WO CONTRAST, CT THORACIC SPINE WO CONTRAST, CT CERVICAL SPINE WO CONTRAST DATE: 10/22/2021 8:46 AM EXAMINATION: 1.Computed tomography (CT) of the head without contrast 2.CT of the cervical spine without contrast 3.CT of the thoracic spine without contrast 4.CT of the lumbar spine without contrast HISTORY: W19.XXXA: Fall, initial encounter TECHNIQUE: CT of the head and cervical, thoracic, and lumbar spine was performed without contrast according to standard protocol. FINDINGS: Head: There is a large volume hematoma overlying the left occipital scalp, measuring approximately 1.7 cm in thickness, (series 3, image 20). Thereis prominence of the extra-axial subarachnoid spaces over the bilateral frontal sulci. There is a punctate hyperdensity in the left frontoparietal sulci alongthe inferior aspect of the left central sulcus, which may represent small volume subarachnoid hemorrhage (series 4, image 15). There is mildcerebral volume loss with associated ex vacuo ventricular dilatation. Prominenceof the subarachnoid spaces along the anterior frontal regions. The basilar cisterns are patent. No mass effect or midline shift is seen. The ghotra-white matter differentiation is normal. Periventricular whitematter hypoattenuation is indicative of chronic small vessel ischemic disease. There is vascular calcification of the carotid siphons. No acutecalvarial fracture is identified.. The orbits appear normal. There is mild mucosal thickening of the bilateral maxillary sinuses. Otherwise, the paranasal sinuses are clear. The mastoid air cells are clear. There is an enlarged right submandibular gland with no adjacent fat stranding. Cervical spine: The curvature of the spine is normal. There is a 1 mm anterolisthesis ofC3 on C4. Vertebral bodies are normal in height without evidence of acute fracture. Other than middle atlantoaxial joint osteoarthritis, the craniocervical junction appears normal. There is mild degenerative disc disease specifically at C5-C6 and C6-C7. No significant/high-gradecentral canal stenosis is seen. There are varying degrees of mild facet osteoarthritis. There are varying degrees of mild uncovertebral joint osteoarthritis there is moderate bilateral neuroforaminal stenosis at C5-C6. There is atherosclerotic calcification of the carotidbifurcations. Retropharyngeal course of the vertebral arteries. Thoracic spine: There is moderate kyphosis centered at T8-T9 with levorotation.Vertebral bodies are normal in height without evidence of acute fracture. There is advanced degenerative disc disease. No high-grade spinal canal stenosisis identified. There is mild facet osteoarthritis at multiple levels. No significant/high-grade neural foraminal stenosis is seen. Borderlineleft atrial enlargement. Calcification along the mitral annulus. Suspected coronary artery calcification. There is a partially visualized pulmonary consolidation in the right lung field, which may represent aspiration. There is a pulmonary nodule in the right lung base measuring 5 mm in diameter (series 4, image 148). Lumbar spine: Mild exaggeration of the lumbar lordosis. The alignment is otherwise maintained. Vertebral bodies are normal in height without evidence ofacute fracture. There is advanced degenerative disc disease. No significant/high-grade central canal stenosis is seen. There is mildfacet osteoarthritis at multiple levels. There are varying degrees of neural foraminal stenosis at multiple levels. There is atherosclerotic calcification of the abdominal aorta and its branch vessels. There are degenerative changes of the SI joints. IMPRESSION: 1.Minimal hyperdensity in the left frontoparietal sulci along theinferior aspect of the left central sulcus, may represent small volumesubarachnoid hemorrhage. Attention on follow-up is recommended. 2.Otherwise, no evidence of acute intracranial hemorrhage, mass effect, shift. 3.No evidence of acute fracture in the cervical, thoracic, or lumbarspine. 4.Recommend CT chest, abdomen, and pelvis for further evaluation of pulmonary findings. Report dictated by Yonas Saunders MD, PhD (radiology supervisor). I, Marla Larsen MD have personally reviewed and interpretedthis examination/study. > Interpreting Provider: Marla Larsen MD on 10/22/2021 10:31 AM Alex Upton MD CT ORDERABLES * Laceration Repair (07/04/2021 7:56 PM CDT) Narrative Rebecca Johnson MD - 07/04/2021 7:56 PM CDT Rebecca Johnson MD ? 07/04/2021 ??8:54 PM Laceration Repair Date/Time: 07/04/2021 7:56 PM Performed by: Yonas Morales MD Authorized by: Rebecca Johnson MD Consent: ??Consent obtained: ??Verbal ??Consent given by: ??Patient ??Risks discussed: ??Infection and need for additional repair Anesthesia: ??Anesthesia method: ??None Laceration details: ??Location: left AC. ??Length (cm): ??0.1 (pinpoint) Exploration: ??Limited defect created (wound extended): no ?Hemostasis achieved with: ??Direct pressure ??Contaminated: no ?? Treatment: ??Debridement: ??None ??Undermining: ??None Skin repair: ??Repair method: ??Tissue adhesive Approximation: ??Approximation: ??Close Repair type: ??Repair type: ??Simple Post-procedure details: ??Dressing: ??Open (no dressing) ??Procedure completion: ??Tolerated well, no immediate complications Comments: ?? Small pinpoint laceration over L AC fistula. Laceration caused by dialysis fistula access from her session today. Laceration was leaking clear fluid. Dr. Rebecca Johnson was present for the entirety of the procedure Rebecca Johnson MD PROCEDURE/MINOR SURG ICAL ORDERABLES * IR CENTRAL LINE REMOVAL (01/09/2021 12:15 PM CDT) Anatomical Region Laterality Modality X-Ray Angiograph y Narrative 01/09/2021 12:16 PM CDT Shakeel Porras MD ? 01/09/2021 12:17 PM VASCULAR AND INTERVENTIONAL RADIOLOGY EXAMINATION: TUNNELED CENTRAL VENOUS CATHETER REMOVAL Date: 01/09/2021 History: Layla Maher is a 75 year old female with history of hypertension, diabetes, and end-stage renal disease who is now successfully dialyzing through her left upper arm brachiocephalic arteriovenous fistula; created by Dr. Weber on 07/04/2020. ?? Removal of the patient's right thoracic tunneled hemodialysis catheter is requested. Diagnosis code: N18.6 Technique: The risks, benefits, and alternatives were discussed and informed consent was obtained. ??Prior to beginning the procedure, universal protocol was performed to confirm the patient's identity and the planned procedure. ??Maximum sterile barriers including cap, mask, hand hygiene, sterile gloves, sterile gown, large sterile drape, and 2% chlorhexidine for cutaneous antisepsis were used. The skin adjacent to the right thoracic tunneled catheter entry site was sterilely prepped, draped, and infiltrated with 1% lidocaine. ??Blunt dissection was then used to free the tunneled hemodialysis catheter cuff. ??The catheter was removed in its entirety and pressure held at the site to obtain hemostasis. ??A sterile dressing was applied. ??The patient tolerated the procedure well and without complications. Findings: The catheter exit site showed no evidence of infection. IMPRESSION: Successful tunneled catheter removal, as described above. Vladislav Porras M.D. Vascular and Interventional Radiology [facility] [phone] CC: Patient's weight count operator: Dr. Jamshid Joe Dialysis unit: [facility] Jamshid Joe MD IR ORDERABLES * POTASSIUM WHOLE BLD (07/04/2020 11:13 AM CDT) Potassium Whole Blood 4.5 3.5 - 5.5 mmol/L 07/04/2020 11:20 AM CDT [facility] Blood WHOLE BLOOD SPECIMEN / Unknown Venipuncture / Unknown 07/04/2020 11:13 AM CDT 07/04/2020 11:16 AM CDT Kirby Weber MD LAB - CHEMISTRY OR DERABLES [facility] [address] [place] [address], [facility] [phone] * (ABNORMAL) BASIC METABOLIC PANEL (CALCIUM TOTAL) (07/02/2020 12:29 PM CDT) BUN 42(H) 7 - 26 mg/dL 07/02/2020 1:[address] [facility] Creatinine 5.5(H) 0.6 - 1.2 mg/dL 07/02/2020 1:[address] [facility] Sodium 143 136 - 145 mmol/L 07/02/2020 1:[address] [facility] Potassium 5.1(H) 3.5 - 4.5 mmol/L 07/02/2020 1:[address] [facility] Chloride 107 98 - 107 mmol/L 07/02/2020 1:[address] [facility] CO2 22 22 - 29 mmol/L 07/02/2020 1:[address] [facility] Glucose 106 70 - 115 mg/dL 07/02/2020 1:[address] [facility] Calcium 8.8 8.4 - 10.2 mg/dL 07/02/2020 1:[address] [facility] Anion Gap 19(H) 8 - 18 07/02/2020 1:[address] [facility] BUN/Creatinine Ratio 8 7 - 23 07/02/2020 1:[address] [facility] Osmolality Calculated 307(H) 270 - 300 mOsm/kg 07/02/2020 1:[address] [facility] eGFR 8(L) >60 mL/min/1.7 3 m2 07/02/2020 1:[address] [facility] Blood BLOOD SPECIMEN / Unknown Lab Venipuncture / Unknown 07/02/2020 12:29 PM CDT 07/02/2020 12:54 PM CDT Kirby Weber MD LAB - CHEMISTRY OR DERABLES [facility] [address] [place] [address], [facility] [phone] * VAS BILAT MAPPING FOR HEMODIALYSIS (06/22/2020 2:04 PM CDT) Anatomical Region Laterality Modality Lower Extremity, Upper Extremity Intravascular Ultrasound 06/22/2020 1:14 PM CDT Narrative 06/24/2020 12:12 PM CDT Procedure Note Michael Hernandez MD - 06/24/2020 Kirby Weber MD VASCULAR LAB ORDER VEL * IR CENTRAL LINE INSERT TUNNEL (05/21/2020 11:21 AM [employer]) Only the most recent of2 resultswithin the time period is included. Anatomical Region Laterality Modality Chest, Upper Extremity X-Ray Ang iography Narrative 05/21/2020 11:19 AM [employer] Paulo Lockwood MD ? 05/21/2020 ??1:20 PM Layla Nika 1945 [id number] Interventional Nephrology Procedure Date: ??05/21/2020 Attending Surgeon and performing the procedure: ??Paulo Lockwood MD Special Needs Caregiver: RT Tara. Medical indication for the procedure: The patient is a 74-year-old with end-stage renal disease. ??She has only recently started on dialysis. ??She is currently dialyzing through a left internal jugular vein tunneled dialysis catheter. ??Referred due to malfunction of the catheter. ?? There very poor flows along the left internal jugular vein tunneled dialysis catheter. ?? EXAM: ?? BP 183/75 ??Pulse 64 ??Resp 16 ??SpO2 99% General appearance: alert, cooperative, no distress Chest: ??There is no drainage from the exit site. ??No tenderness along the tunnel. Heart: Regular rate, normal S1 and S2, without murmurs Lungs: breath sounds normal and symmetric; no wheezes Extremities: no cyanosis or edema. ?? Indications for the procedure: ?? 1. ? End-stage renal disease on dialysis. 2. ? Malfunction in left internal jugular vein tunneled dialysis catheter. Procedures Performed: 1. ??ANGIOGRAPHIC PROCEDURES: ??ULTRASOUND GUIDANCE FOR VASCULAR ACCESS WITH PERMANENT RECORDING;33449 2. ??CATHETER PLACEMENT: FLUOROSCOPIC GUIDANCE FOR CVC PROCEDURE; 55094 3. ??CATHETER PLACEMENT: INSERTION OF TUNNELED CENTRALLY INSERTED CVC; AGE 5 OR OLDER; 45954 4. ??CATHETER PLACEMENT: REMOVAL OF TUNNELED CENTRALLY INSERTED CVC; 97452 5. SEDATION CODES: ??SEDATION - MODERATE INITIAL; 26470 Findings: 1. ??The right internal jugular vein is patent and compressible under ultrasound color Doppler. 2. ??The right internal jugular vein was cannulated with a 21 gauge micropuncture needle using ultrasound guidance for vascular access. ??A posterior approach was used. ??The tip of the needle was observed entering the lumen of the vein in real-time and permanent recording was obtained. 3. ?? A 23 cm tip to cuff glide path catheter is observed entering the lumen of the right internal jugular vein at the base of the neck. ??The tip position in the mid to low right atrium. ??No kinks observed along entire trajectory of the catheter. ??A 23 cm tip to cuff glide path catheter is also observed entering the lumen of the left internal jugular vein with the tip just below the superior vena cava right atrial junction. 4. ?? A 23 cm tip to cuff glide path catheter was recovered in its entirety from the left internal jugular vein. 5. ?? The final preform plate maker film shows a 23 cm tip to cuff glide path catheter entering the right internal jugular vein at the base of the neck. ??The tip position in the mid to low right atrium. ??No kinks observed along entire trajectory of the catheter. ??The left tunneled dialysis catheter is no longer present. Description of the procedure: ?? Technique: The risks, benefits, and alternatives were discussed and informed consent was obtained. ??Prior to beginning the procedure, universal protocol was performed to confirm the patient's identity and the planned procedure. ??Maximum sterile barriers including cap, mask, hand hygiene, sterile gloves, sterile gown, large sterile drape, sterile gel, sterile ultrasound probe cover, and 2% chlorhexidine for cutaneous antisepsis were used. Prior to the procedure, the right internal jugular vein was evaluated by ultrasound and an image of the patent vessel was recorded in the patient's electronic medical record. ??The skin over this vein was sterilely prepped, draped, and infiltrated with 1% lidocaine. ??This vein was then accessed with a 21-gauge needle using real-time ultrasound guidance. ??A guidewire was passed centrally using fluoroscopic guidance. ??The intravascular length from the access site to the right atrium was assessed. After infiltrating the skin in the subclavicular region with 1% lidocaine, a short transverse incision was made and the 23 cm tip to cuff glide path catheter was tunneled to the internal jugular vein access site and inserted through a peel-away sheath. ??The peel-away sheath was then removed. Catheter evaluation demonstrated excellent bidirectional flow. ??The catheter was flushed with heparin and sutured in place using 2-0 Prolene. ??The incision in the lower neck was closed using Exofin skin glue and once dry we applied a Steri-Strip. ??Sterile dressings were applied. Moderate sedation was ordered by me and administer intravenously and monitored by the procedure nurse as an independent observer who was present throughout the procedure. ??The following parameters were monitored: ??Oxygen saturation, heart rate, blood pressure, End Tidal CO2, and response to care. ??Intra-service sedation start time was 10:52 a.m. and end time was 11:02 a.m.. ?? Total physician intra service sedation time was 10 minutes. Attention was then turned to the removal of the left internal jugular vein tunneled dialysis catheter. ??The chest, the neck, and the catheter were prepared with chlorhexidine. ??The area was draped under sterile conditions. ??The cuff was identified by palpation. ??The exit site and tunnel track up to the cuff were infiltrated with 1 percent lidocaine. ??The cuff was then released using blunt dissection and the catheter pulled. ??A 23 cm tip to cuff glide path catheter was recovered in its entirety and intact. ??Pressure was applied to the left internal jugular vein venotomy at the base of the neck for 5 min and hemostasis obtained. Versed IV: 1 mg ??Versed wasted: 1 mg Fentanyl IV: 50 mcg Fentanyl wasted: 50 mcg Fluoroscopy time: 0.55 min. Absorbed patient dose: 9.88 ??mGy. COMPLICATIONS: NONE. RECOMMENDATIONS: 1. May access catheter for dialysis immediately. 2. Follow-up as needed. 3. The patient is to be schedule with Dr. Rafita Bartlett MD for the construction of an AV access. Paulo Lockwood MD 05/21/2020 11:19 AM [facility] VAC [phone] Jamshid Joe MD [facility] Jamshid Joe MD IR ORDERABLES * IR: OXYGEN (02/13/2020 1:14 PM [employer]) Narrative Paulo Lockwood MD - 02/13/2020 1:14 PM [employer] Paulo Lockwood MD ? 02/13/2020 ??1:23 PM Layla Casanovad [id number] Interventional Nephrology Procedure Date: ??02/13/2020 Attending Surgeon and performing the procedure: ??Paulo Lockwood MD Medical indication for the procedure: The patient is a 74-year-old woman with end-stage renal disease status post placement of a peritoneal dialysis catheter. ??Patient referred for evaluation of the catheter due to malfunction. ?? Intention is to performed PD graft. ?? EXAM: ?? There were no vitals taken for this visit. General appearance: alert, cooperative, no distress Heart: Regular rate, normal S1 and S2, without murmurs Lungs: breath sounds normal and symmetric; no wheezes Abdomen: ??PD catheter without exit site erythema or drainage. ?? Abdomen soft benign bowel sounds present. Extremities: no cyanosis or edema. ?? Indications for the procedure: ?? 1. ? Peritoneal dialysis catheter dysfunction [T85.611A] Procedures Performed: 1. ??PERITONEAL DIALYSIS CATHETER PLACEMENT: ??INJECTION OF AIR/CONTRAST OF PERITONEAL CAVITY; 01065; 42105 Findings: 1. ??Contrast injection into the peritoneal cavity confirmed that the PD catheter is in the floor of the pelvis. ??No kinks observed. ??The prostate is completely away from the omentum. Description of the procedure: ?? After informed consent was obtained Layla Maher was taken to the angiography suite and placed on the fluoroscopy table in the supine position. Prior to beginning the procedure, universal protocol was performed to confirm the patient's identity and the planned procedure. ??Maximum sterile barriers including cap, mask, hand hygiene, sterile gloves, sterile gown, large sterile drape, sterile gel, sterile ultrasound probe cover, and 2% chlorhexidine for cutaneous antisepsis were used. The iodinated cap from the transfer set was removed, and the transfer set was unlocked. ??No drainage was obtained. ??A and flush was met with resistance. ??The transfer set was removed. ??As soon as the transfer set was removed initially clear fluid was drained. ??200 mL of saline were flushed and 200 mL drain back. ??5 cc of contrast were infused to obtain images and confirm position of the catheter. ??I did several 50 cc flushes until clear fluid was observed. ??An additional 200 cc of saline solution were infused into the peritoneum. ??The catheter was then locked with 5000 units heparin. The following parameters were monitored: ??Oxygen saturation, heart rate, blood pressure, End Tidal CO2, and response to care. The patient tolerated the procedure well. IP Contrast: ??5 mL of Isovue 300. Fluoroscopy time: 0.5 min. Absorbed patient dose: 14.93 ??mGy. COMPLICATIONS: No. IMPRESSION: A peritoneal dialysis catheter is present. ??The intraperitoneal curled tip is position in the floor of the pelvis along the midline. ??No kinks observed along entire trajectory of the catheter. RECOMMENDATIONS: 1. Patient can start peritoneal dialysis if needed. 2. Follow-up as needed. Paulo Lockwood MD 02/13/2020 1:14 PM [facility] VAC 610 - [phone] Rafita Powers MD [facility] dialysis Paulo Lockwood MD RESPIRATORY THERA PY ORDERABLES * FL PERITONEUM (02/13/2020 12:05 PM MAJOR LEAGUE BASEBALL UMPIRE) Anatomical Region Laterality Modality Abdomen X-Ray Angiograph y Narrative 02/13/2020 1:14 PM MAJOR LEAGUE BASEBALL UMPIRE Paulo Lockwood MD ? 02/13/2020 ??1:23 PM Layla Casanovad 1945 [id number] Interventional Nephrology Procedure Date: ??02/13/2020 Attending Surgeon and performing the procedure: ??Paulo Lockwood MD Medical indication for the procedure: The patient is a 74-year-old woman with end-stage renal disease status post placement of a peritoneal dialysis catheter. ??Patient referred for evaluation of the catheter due to malfunction. ?? Intention is to performed PD graft. ?? EXAM: ?? There were no vitals taken for this visit. General appearance: alert, cooperative, no distress Heart: Regular rate, normal S1 and S2, without murmurs Lungs: breath sounds normal and symmetric; no wheezes Abdomen: ??PD catheter without exit site erythema or drainage. ?? Abdomen soft benign bowel sounds present. Extremities: no cyanosis or edema. ?? Indications for the procedure: ?? 1. ? Peritoneal dialysis catheter dysfunction [T85.611A] Procedures Performed: 1. ??PERITONEAL DIALYSIS CATHETER PLACEMENT: ??INJECTION OF AIR/CONTRAST OF PERITONEAL CAVITY; 20584; 15209 Findings: 1. ??Contrast injection into the peritoneal cavity confirmed that the PD catheter is in the floor of the pelvis. ??No kinks observed. ??The prostate is completely away from the omentum. Description of the procedure: ?? After informed consent was obtained Layla Maher was taken to the angiography suite and placed on the fluoroscopy table in the supine position. Prior to beginning the procedure, universal protocol was performed to confirm the patient's identity and the planned procedure. ??Maximum sterile barriers including cap, mask, hand hygiene, sterile gloves, sterile gown, large sterile drape, sterile gel, sterile ultrasound probe cover, and 2% chlorhexidine for cutaneous antisepsis were used. The iodinated cap from the transfer set was removed, and the transfer set was unlocked. ??No drainage was obtained. ??A and flush was met with resistance. ??The transfer set was removed. ??As soon as the transfer set was removed initially clear fluid was drained. ??200 mL of saline were flushed and 200 mL drain back. ??5 cc of contrast were infused to obtain images and confirm position of the catheter. ??I did several 50 cc flushes until clear fluid was observed. ??An additional 200 cc of saline solution were infused into the peritoneum. ??The catheter was then locked with 5000 units heparin. The following parameters were monitored: ??Oxygen saturation, heart rate, blood pressure, End Tidal CO2, and response to care. The patient tolerated the procedure well. IP Contrast: ??5 mL of Isovue 300. Fluoroscopy time: 0.5 min. Absorbed patient dose: 14.93 ??mGy. COMPLICATIONS: No. IMPRESSION: A peritoneal dialysis catheter is present. ??The intraperitoneal curled tip is position in the floor of the pelvis along the midline. ??No kinks observed along entire trajectory of the catheter. RECOMMENDATIONS: 1. Patient can start peritoneal dialysis if needed. 2. Follow-up as needed. Paulo Lockwood MD 02/13/2020 1:14 PM [facility] VAC 132 - [phone] Rafita Powers MD [facility] home dialysis Jamshid Joe MD FLUOROSCOPY ORDERABL ES Care Teams Tool Dispatcher Relationship Specialty Start Date End Date Justen Singer MD [address] [address] PCP - General 02/14/20
[2024-04-12 09:40] LABS: Mean Platelet Volume 8.8 fl (7.4-10.4); Platelet Count Result 206 k/mm3 (150-375)
[2024-04-12 10:15] LABS: Prothrombin Time 13.9 Seconds (11.1-14.7)
--- NOTE | 2024-04-12 12:45 | PM.OP ---
Procedure Note - Brief Procedure Note - Brief Date of procedure: 04/12/24 lung nodule Post-op diagnosis: Same Procedure performed: CT guided R lung biopsy Surgeon: Gabby Toro MD Description of procedure: sterile technique, CT guidance, 17G introducer, 18G specimens. No PTX. Trace perilesional hemorrhage Estimated blood loss (mL): 0.1 Pathology: Yes (R UL specimens to pathology) Complications: No immediate complications Condition: Stable Disposition: Same day
--- NOTE | 2024-04-12 15:15 | SUR.PHASEII ---
CXR okjosé Toro; sindy to d/c.
== END 2024-04-12 15:40 | disposition home or self-care (01) ==
PROVIDERS: PCP Family Medicine Adolescent Medicine; Visit Provider Radiology Diagnostic Radiology
PROC: BB24ZZZ Computerized Tomography (CT Scan) of Bilateral Lungs (ICD-10-PCS; CPT 32408; principal; 2024-04-12 11:00)
DX: Z01.818 Encounter for other preprocedural examination (principal); J84.10 Pulmonary fibrosis, unspecified; R91.1 Solitary pulmonary nodule
CPT/HCPCS: 32408; 36415; 71045; 85049; 85610; 88305; 88312; 88342

== ENCOUNTER 2024-05-30 08:24 | Emergency (ER) | payer MEDICARE, SELFPAY ==
[2024-05-30 08:24] VITALS: BP 145/60; PULSE 87; RESP 18; TEMP 36.4; O2SAT 96
[2024-05-30] MEDS: SODIUM CHLORIDE 0.9% IV 1,000 ML 999 ML IV CONT (09:12)
[2024-05-30] MEDS: LOPERAMIDE HCL 2 MG CAPSULE 4 MG PO (09:12)
[2024-05-30 09:13] LABS: Basophils Percent Auto 0.2 % (0.2-1.2); Eosinophils Absolute Auto 0.4 K/mm3 (0-0.3); Eosinophils Percent Auto 4.3 % (0-4.4); Hematocrit 34.9 % (37.0-47.0); Hemoglobin 11.5 g/dL (12.0-15.0); Immature Granulocyte Absolute 0.11 K/mm3 (0.00-0.031); Immature Granulocyte Percent A 1.1 % (0-0.5); Lymphocytes Absolute Auto 1.09 K/mm3 (0.9-3.2); Lymphocytes Percent Auto 11.2 % (18.3-44.2); Mean Corpuscular Hemoglobin 31.2 pg (26-34); Mean Corpuscular Volume 94.6 fl (80-100); Mean Platelet Volume 9.1 fl (7.4-10.4); Monocytes Absolute Auto 0.7 K/mm3 (0.1-0.6); Monocytes Percent Auto 7.5 % (2.6-8.5); Neutrophils Absolute Auto 7.3 K/mm3 (1.3-6.7); Neutrophils Percent Auto 75.7 % (45.5-73.1); Platelet Count Result 240 k/mm3 (150-375); Red Blood Count 3.69 M/mm3 (4.2-5.4); Red Cell Distribution Width 16.3 % (11.5-14.5); White Blood Count 9.7 K/mm3 (4.5-10.0)
--- OUTSIDE RECORDS SUMMARY | 2024-05-30 09:17 | XMS_ITS | Clinical Summary ---
Author Organization [facility] Address [address] [place] [address] Care Team Providers Care Shellfish Harvester Name Role Phone Justen Singer MD Primary Care Prov ider Jamshid Joe MD Unavailable [phone] Alex Edgar MD Unavailable [phone] Allergies Active Allergy Reactions Criticality Noted [...] mcg tablet Take 75 mcg by mouth supervisor esters and emulsifiers before breakfast Active Vitamin D2 1,250 mcg [...] 57 years old in 2003 Crohn's disease 05/24/2012 Calculus of kidney 05/24/2012 Hypertension 05/24/2012 Hyperlipidemia 07/29/2010 Overview (06/25/2017): Description: Hyperlipidemia Chronic coronary artery disease 07/29/2010 Overview (06/25/2017): Description: Multi-vessel Coronary Artery Stenosis 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 End stage renal disease ESRD (end stage renal disease) Immunizations Immunization Administration Dates Next Due Influenza, Trivalent, Preservative Free, Intramu scular 03/26/2012 Surgical History Surgery Date Site/Laterality Comments OK LAPAROSCOPY SURG PARTIAL NEPHRECTOMY Left Kidney Surgery Laparoscopic Partial Nephrectomy - oncocytoma (Added by TW Conv) APPENDECTOMY Appendectomy - (Added by TW Conv) HYSTERECTOMY Hysterectomy - (Added by TW Conv) FOOT FRACTURE SURGERY Treatment Of Foot Fracture - 2004 (Added by TW Conv) CHOLECYSTECTOMY Cholecystectomy - 2005 (Added by TW Conv) OK PRQ TRLUML CORONARY STENT W/ANGIO ONE ART/BRNCH [...] TW Conv) Crohn's disease without comp lication (HCC) Crohn's disease - (Added by TW Conv) Calculus of kidney Nephrolithias is - (Added by TW Conv) Atherosclerotic heart diseas e of [place] coronary artery without angina pectoris Arteriosclerot ic [...] on file Legal Sex Female 6:58 AM LADIES' HAT TRIMMER Gender Identity Not on file Sexual Orientation Not on file Obstetrics History Last Filed Vital Signs Vital Sign Reading Time Taken Comments Blood Pressure 178/70 05/06/2022 9:26 AM LADIES' HAT TRIMMER Pulse 73 05/06/2022 9:26 AM LADIES' HAT TRIMMER Temperature 36.6 C (97.8 F) 08/26/2021 2:10 PM CDT Respiratory Rate 18 03/19/2020 8:41 PM LADIES' HAT TRIMMER Oxygen Saturation 90% 05/06/2022 9:26 AM LADIES' HAT TRIMMER Inhaled Oxygen Concentration - - Weight 73.9 kg (163 lb) 05/06/2022 9:26 AM LADIES' HAT TRIMMER Height 160 cm (5' 3 ) 05/06/2022 9:26 AM LADIES' HAT TRIMMER Body Mass Index 28.87 05/06/2022 9:26 AM LADIES' HAT TRIMMER Plan of Treatment Health Maintenance Due Date Last Done Comments Albumin Creatinine Ratio, Urine 1945 Depression Screening 1945 Fall Risk Assessment 1945 Osteoporosis Screening-Bone Density Scan 1945 Dilated Eye Exam 1945 Foot Exam 1945 DTaP/Tdap/Td Vaccine (1 - Tdap) 1956 Hepatitis B Screening 05/30/1963 Zoster Vaccine (1 of 2) 05/30/1995 Well Visit 65+ 2010 Pneumococcal vaccine 65+ (2 of 2 - PPSV23) 09/04/2020 07/10/2020 Lipid Panel 11/23/2021 11/23/2020 eGFR 11/23/2021 11/23/2020, 01/0 06/2020, 03/15/2020 Hemoglobin A1C 04/27/2022 10/25/2021, 11/23/2020 Covid-19 Vaccine (3 - 2023-2 5 season) 2023 06/06/2020, 05/15/2020 Influenza Vaccine (#1) 2023 0, 11/23/2019, 01/06/2019, Additional history exists Hepatitis C Screening Completed 11/23/2020 Procedures Procedure Name Priority Date/Time Associated Diagnosis Comments HEPATITIS C ANTIBODY Routine 11/23/2020 12:05 PM CDT End stage renal disease (HCC) EGFR Routine 11/23/2020 12:05 PM CDT End stage renal disease (HCC) HEMOGLOBIN A1C Routine 11/23/2020 12:05 PM CDT End stage renal disease (HCC) LIPID PANEL Routine 11/23/2020 12:05 PM CDT End stage renal disease (HCC) from Last 3 Months or Most Recently Relevant to Health Maintenance Results * (ABNORMAL) eGFR (11/23/2020 12:05 PM CDT) eGFR 8(L) 90 - 130 mL/min/1.7 3 m2 [facility] Comment: Interpretive Data Reference Interval Normal >/= 90 mL/min/1.73m2 Mildly decreased* 60 - 89 mL/min/1.73m2 Mildly to moderately decreased 45 - 59 mL/min/1.73m2 Moderately to severely decreased 30 - 44 mL/min/1.73m2 Severely decreased 15 - 29 mL/min/1.73m2 Kidney Failure < 15 mL/min/1.73m2 *Relative to young adult level Estimated glomerular [...] BLOOD ORDERABLES Final Result Performing Organization Address City/[facility]/ZIP Co de Phone Number [facility] [place] [address] * Hepatitis C antibody (11/23/2020 12:05 PM CDT) [facility] Hep C Ab Nonreactive Nonreactive [facility] Comment:Antibodies to HCV no t detected. Does NOT exclude the possibility of recent exposure to HCV. Blood 11/23/2020 12:0 5 PM CDT 11/23/2020 12:20 PM CDT Jani Rose MD LAB MICROBIOLOGY - GENERAL ORDERABLES Edited Result - Final Performing Organization Address [facility] [place] [address] * (ABNORMAL) Hemoglobin A1c (11/23/2020 12:05 PM CDT) [facility] Hgb A1C 6.1(H) 4.0 - 5.6 % [facility] Estimated Average Glucose 128 mg/dL [facility] Comment: The ADA recommends reporting an estimated Average Glucose (eAG) with all Hemoglobin A1c results using the equation derived from a study of 507 normal and diabetic adults. Minority populations were underrepresented and children were not included. (Diabetes Care 2020; 43(S1): S66-S76). The eAG is not equivalent to a fasting glucose. Blood 11/23/2020 12:0 5 PM CDT 11/23/2020 12:20 PM CDT Jani Rose MD LAB BLOOD ORDERABLES Final Result Performing Organization Address City/[facility] [place] [address] * (ABNORMAL) Lipid panel (11/23/2020 12:05 PM CDT) [facility] Cholesterol 148 30 - 199 mg/dL [facility] Comment: Interpretive Data Ages < or = 19 years Acceptable: <170 mg/dL Borderline high: 170-199 mg/dL High: >or= 200 mg/dL Ages > or = 20 years Desirable: <200 mg/dL Borderline high: 200-239 mg/dL High: >or= 240 mg/dL Literature References: 1. Expert Panel on Integrated Guidelines for Cardiovascular Health and Risk Reduction in Children and Adolescents. Pediatrics 2011;128:S213 2. NCEP Expert Panel. Circulation 2004;110:227 Current Interpretive Data was last revised on 2017. Triglycerides 303(H) <=149 mg/dL [facility] Comment: Interpretive Data Ages < or = 9 years Acceptable: <75 mg/dL Borderline high: 75-99 mg/dL High: >or= 100 mg/dL Ages 10 to 20 years Acceptable: <90 mg/dL Borderline high: 90-129 mg/dL High: >or= 130 mg/dL Ages > or = 20 years Desirable: <150 mg/dL Borderline high: 150-199 mg/dL High: 200-499 mg/dL Very high: >or= 499 mg/dL Literature References: 1. Expert Panel on Integrated Guidelines for Cardiovascular Health and Risk Reduction in Children and Adolescents. Pediatrics 2011;128:S213 2. NCEP Expert Panel. Circulation 2004;110:227 Current Interpretive Data was last revised on 2017. HDL 41 >=40 mg/dL [facility] Comment: Interpretive Data Ages < or = 19 years Acceptable: >45 mg/dL Borderline low: 40-45 mg/dL Low: <40 mg/dL Ages > or = 20 years Desirable: >or= 60 mg/dL Low: <40 mg/dL Literature References: 1. Expert Panel on Integrated Guidelines for Cardiovascular Health and Risk Reduction in Children and Adolescents. Pediatrics 2011;128:S213 2. NCEP Expert Panel. Circulation 2004;110:227 Current Interpretive Data was last revised on 2017. LDL, calculated 46 <=129 mg/dL [facility] Comment: Interpretive Data Ages < or = 19 years Acceptable: <110 mg/dL Borderline high: 110-129 mg/dL High: >or= 130 mg/dL Ages > or = 20 years Optimal: <100 mg/dL Near optimal: 100-129 mg/dL Borderline high: 130-159 mg/dL High: >160 mg/dL Literature References: 1. Expert Panel on Integrated Guidelines for Cardiovascular Health and Risk Reduction in Children and Adolescents. Pediatrics 2011;128:S213 2. NCEP Expert Panel. Circulation 2004;110:227 Current Interpretive Data was last revised on 2017. Non-HDL Cholesterol 107 mg/dL [facility] Comment: Interpretive Data Ages < or = 19 years Acceptable: <120 mg/dL Borderline high: 120-144 mg/dL High: >145 mg/dL Ages > or = 20 years When triglycerides are >200 mg/dL, Non-HDL cholesterol is a secondary target of therapy with treatment goals that are 30 mg/dL greater than the LDL cholesterol target. Literature References: 1. Expert Panel on Integrated Guidelines for Cardiovascular Health and Risk Reduction in Children and Adolescents. Pediatrics 2011;128:S213 2. NCEP Expert Panel. Circulation 2004;110:227 Current Interpretive Data was last revised on 2017. Chol/HDL ratio 4 [facility] Blood 11/23/2020 12:0 5 PM CDT 11/23/2020 12:20 PM CDT us Jani Rose MD LAB BLOOD ORDERABLES Final Result [facility] Department [place] [address] from Last 3 Months or Most Recently Relevant to Health Maintenance Insurance [facility] MEDICARE [facility] MEDICARE [facility] [place] Care Teams Shellfish Harvester Relationship Specialty Start Date End Date Justen Singer MD [address] [place] [address] PCP - General Family Medicine 08/27/20 Jamshid Joe MD [address] [place] [id number] Referring Physician Nephrology 10/08/20 Alex Edgar MD [address] [place] [id number] Referring Physician Cardiology 10/08/20
--- OUTSIDE RECORDS SUMMARY | 2024-05-30 09:17 | XMS_ITS | Clinical Summary ---
Author Organization [facility] Address [address], [place] [address] Phone Care Team Providers Care Nail Tech Name Role Phone Justen Bonds MD Primary Care Provider Allergies Active Allergy Reactions Criticality Noted Date [...] 84 11/02/2019 2:59 PM CDT Temperature 36.6 C (97.9 F) 11/02/2019 2:59 PM CDT Respiratory Rate - - Oxygen Saturation - [...] Vaccine (#1) 2023 01/06/2019, 2012 Care Teams Nail Tech Relationship Specialty Start Date End Date Justen Bonds MD [address] [address] PCP - General Family Medicine 01/10/19
--- OUTSIDE RECORDS SUMMARY | 2024-05-30 09:17 | XMS_ITS | Encounter Summary ---
Author Organization [facility] Address [address] [place] [address] Phone Care Team Providers Care Mining Machinery Assembler Name Role Phone Justen Singer MD Primary Care Prov ider Justen Singer MD Primary Care Prov ider Lita Elizabeth RN Unavailable Jamshid Joe MD Unavailable [phone] Alex Edgar MD Unavailable [phone] Encounter Details Date Type Department Care Team (Late st Contact Info) Description 12/15/2019 Telephone [facility] Cardiology [address] [facility] Advanced Medicine 8th [place] [address] [place] [address] Alex Edgar MD [address] [facility] [address] [place] [address] Social History Tobacco Use Types Packs/Day Years Used Date Smoking Tobacco: Former Smokeless Tobacco: Never Comments Unknown Sex and Gender Information Value Date Recorded Sex Assigned at Not on file Legal Sex Female 6:58 AM SUPPLIER QUALITY ENGINEERING MANAGER Gender Identity Not on file Sexual Orientation Not on file documented as of this encounter Plan of Treatment Not on file documented as of this encounter Visit Diagnoses Not on filedocumented in this encounter Additional Health Concerns Infection Onset Date Last Indicated Resolved Time COVID19 03/19/2020 03/19/202004/02/2020 3:07 AM SUPPLIER QUALITY ENGINEERING MANAGER documented as of this encounter Care Teams Mining Machinery Assembler Relationship Specialty Start Date End Date Justen Singer MD [address] [place] [address] PCP - General 03/27/17 08/26/20 Justen Singer MD [address] [place] [address] PCP - General Family Medicine 08/27/20 Lita Elizabeth, DINORAH [address] [id number] Registered Nurse Sales And Business Development Manager 08/27/20 Jamshid Joe MD [address] [address] Referring Physician Nephrology 10/08/20 Alex Edgar MD [address] [address] Referring Physician Cardiology 10/08/20 documented as of this encounter
--- OUTSIDE RECORDS SUMMARY | 2024-05-30 09:17 | XMS_ITS | Referral Summary ---
Author Organization [facility] Address [address] [place] [address] Care Team Providers Care Tie Buyer Name Role Phone Justen Singer MD Primary Care Prov ider Jamshid Joe MD Unavailable [phone] Alex Edgar MD Unavailable [phone] Allergies Active Allergy Reactions Criticality Noted [...] mcg tablet Take 75 mcg by mouth hoisting engine operator before breakfast Active Vitamin D2 1,250 mcg [...] on file Legal Sex Female 6:58 AM RN PROVIDER RELATIONS Gender Identity Not on file Sexual Orientation Not on file Last Filed Vital Signs Vital Sign Reading Time Taken Comments Blood Pressure 178/70 05/06/2022 9:26 AM RN PROVIDER RELATIONS Pulse 73 05/06/2022 9:26 AM RN PROVIDER RELATIONS Temperature 36.6 C (97.8 F) 08/26/2021 2:10 PM CDT Respiratory Rate 18 03/19/2020 8:41 PM RN PROVIDER RELATIONS Oxygen Saturation 90% 05/06/2022 9:26 AM RN PROVIDER RELATIONS Inhaled Oxygen Concentration - - Weight 73.9 kg (163 lb) 05/06/2022 9:26 AM RN PROVIDER RELATIONS Height 160 cm (5' 3 ) 05/06/2022 9:26 AM RN PROVIDER RELATIONS Body Mass Index 28.87 05/06/2022 9:26 AM RN PROVIDER RELATIONS Plan of Treatment Not on file Procedures [...] * (ABNORMAL) eGFR (11/23/2020 12:05 PM CDT) Pathologist [facility] eGFR 8(L) 90 - 130 mL/min/1.7 3 m2 [facility] Comment: Interpretive Data Reference Interval Normal >/= [...] Rose MD LAB BLOOD ORDERABLES Final Result [facility] [place] [address] * Hepatitis C antibody (11/23/2020 12:05 PM CDT) Pathologist [facility] Hep C Ab Nonreactive Nonreactive [facility] Comment:Antibodies to HCV no t detected. Does NOT exclude the possibility of recent exposure to HCV. Blood 11/23/2020 12:0 5 PM CDT 11/23/2020 12:20 PM CDT Jani Rose MD LAB MICROBIOLOGY - GENERAL ORDERABLES Edited Result - Final Performing Organization Address [facility] Co de Phone Number [facility] [place] [address] * (ABNORMAL) Hemoglobin A1c (11/23/2020 12:05 PM CDT) Hgb A1C 6.1(H) 4.0 - 5.6 % [facility] Estimated Average Glucose 128 mg/dL [facility] Comment: The ADA recommends reporting an [...] BLOOD ORDERABLES Final Result Performing Organization Address [facility] Co de Phone Number [facility] [place] [address] * (ABNORMAL) Lipid panel (11/23/2020 12:05 PM CDT) Cholesterol 148 30 - 199 mg/dL [facility] Comment: Interpretive Data Ages < or [...] revised on 2017. Triglycerides 303(H) <=149 mg/dL [facility] Comment: Interpretive Data Ages < or [...] revised on 2017. HDL 41 >=40 mg/dL [facility] Comment: Interpretive Data Ages < or [...] on 2017. LDL, calculated 46 <=129 mg/dL [facility] Comment: Interpretive Data Ages < or [...] revised on 2017. Non-HDL Cholesterol 107 mg/dL [facility] Comment: Interpretive Data Ages < or = [...] last revised on 2017. Chol/HDL ratio 4 JAYNA FISHMAN Blood 11/23/2020 12:0 5 PM CDT 11/23/2020 12:20 PM CDT us Jani Rose MD LAB BLOOD ORDERABLES Final Result [facility] [place] [address] from Last 3 Months or Most Recently Relevant to Health Maintenance Insurance MEDICARE [facility] MEDICARE [facility] MEDICARE [facility] Care Teams Tie Buyer Relationship Specialty Start Date End Date Jutsen Singer MD [address] [place] [address] PCP - General Family Medicine 08/27/20 Jamshid Joe MD [address] [place] [address] Referring Physician Nephrology 10/08/20 Alex Edgar MD [address] [place] [address] Referring Physician Cardiology 10/08/20
--- OUTSIDE RECORDS SUMMARY | 2024-05-30 09:19 | XMS_ITS | Referral Summary ---
Author Organization [facility] Address [address] [facility] [place] [address] Care Team Providers Care Snow Removing Supervisor Name Role Phone Justen Singer MD Primary Care Provider + Source Comments [facility],non-owned Affiliates and Associated Physician Practices is amultiple site organization consisting of ambulatory clinics and hospital sitesin [place], [place], [place] and [place]. This disclosure is being madepursuant to the Care Everywhere program and may not contain all information available regarding this patient. Last updated [facility] Interview Rocket Allergies Active Allergy Reactions Criticality Noted Date [...] (AF LURIA, FLUZONE TRIVALENT; 6MO+) (IIV3) 01/06/2019 [facility] primary [place] ent 12+ yr 0.3ml 10/26/2021(Deferred: [...] 69 08/14/2022 7:51 AM CDT Temperature 36.8 C (98.2 F) 08/14/2022 7:51 AM CDT Respiratory Rate 20 08/14/2022 7:51 AM CDT [...] 6.1(H) <=5.6 % 07/27/2022 9:53 AM CDT [facility] Estimated Average Glucose 128 mg/dL 07/27/2022 9:53 AM CDT [facility] Comment: HbA1c Interpretation: Normal : < 5.7% Pre-diabetes: 5.7-6.4% Diabetes: Equal to or greater than 6.5% Test results diagnostic of diabetes should be repeated for confirmation. Treatment target values recommended by ADA and other clinical organizations should be used to evaluate metabolic control in patients. Reference: [place] [employer] Association, Standards of Care in Diabetes [...] Wade MD LAB - CHEMISTRY NELLI PATEL [facility] Organization Address City/State/ZIP Co de Phone Number [facility] [address] [place] [address], [facility] [phone] from Last 3 Months or Most Recently Relevant to Health Maintenance Advance Directives Documents on File Type Date Recorded Patient Corporate Quality Assurance Manager Expl anation Adv Directive/Living Will/POA 08/15/2022 11:36 [...] 3:50 PM 10/30/2021 11:48 AM Care Teams Snow Removing Supervisor Relationship Specialty Start Date End Date Justen Singer MD [address] [facility] [address] [place] [address] PCP - General 02/14/20
--- OUTSIDE RECORDS SUMMARY | 2024-05-30 09:19 | XMS_ITS | Clinical Summary ---
Author Organization [facility] Address [address] [facility] [place] [address] Phone Care Team Providers Care Multiple Wire Sawyer Name Role Phone Justen Singer MD Primary Care Provider [phone] Allergies Active Allergy Reactions Criticality Noted Date [...] Comments Blood Pressure 173/60 04/24/2020 9:15 AM DIE REPAIR Pulse 59 04/24/2020 6:13 AM DIE REPAIR Temperature 36.6 C (97.8 F) 04/24/2020 6:13 AM DIE REPAIR Respiratory Rate 17 04/24/2020 9:15 AM DIE REPAIR Oxygen Saturation 97% 04/24/2020 9:15 AM DIE REPAIR Inhaled Oxygen Concentration - - Weight 68 kg (150 lb) 04/24/2020 6:13 AM DIE REPAIR Height 160 cm (5' 3 ) 04/24/2020 6:13 AM DIE REPAIR Body Mass Index 26.57 04/24/2020 6:13 AM DIE REPAIR Plan of Treatment Health Maintenance Due Date Last Done Comments DIABETES ANNUAL FOOT EXAM 05/30/1963 DIABETES ANNUAL RETINAL EXAM 05/30/1963 DIABETES MICROALBUMIN ANNUAL SCREEN 05/30/1963 LDL CHOLESTEROL ANNUAL 05/30/1963 DTAP/TDAP/TD VACCINES (1 - Tdap) 1964 ZOSTER VACCINE (1 of 2) 05/30/1995 OSTEOPOROSIS SCREENING 2010 RSV VACCINE (60+ or ) (1 - 1-dose 75+ series) 2020 PNEUMOCOCCAL VACCINE 50+ YEA RS (2 of 2 - PPSV23) 09/04/2020 07/10/2020 DIABETES HBA1C Q 6 MONTHS 01/26/2023 07/26/2022, 02/2022 INFLUENZA VACCINE (#1) 2023 , 11/23/2019, 01/06/2019, Additional history exists Medical Devices Implanted Type Area Blow Torch Burner Device Identifier Shelf Expiration Date Model / Serial / Lot 3 Cardiac Stents Left Renal Stent Explanted Type Area Blow Torch Burner Device Identifier Shelf Expiration Date Model / Serial / Lot Cath Pd Howard Curl 2cuff [id number] - [id number] Implanted:Qty : 1 on 01/25/2020 by Rafita Bartlett MD at [facility] Explanted:Qty : 1 on 04/24/2020 by Hawk Angel MD at [facility] Catheter N/A: Abdomen [employer] - COVIDIEN 09/12/2024 [id number] / / [id number] Insurance MEDICARE PART A AND B [facility] SUPP Advance Directives For more information, please contact: [phone] * Full Code (Latest Code Status on File) Date Activated Date Inactivated Comments 04/24/2020 7:08 AM 04/24/2020 11:55 AM * Full Code Date Activated Date Inactivated Comments 04/24/2020 5:39 AM 04/24/2020 7:07 AM * Full Code Date Activated Date Inactivated Comments 01/25/2020 5:51 AM 01/26/2020 7:33 PM Care Teams Multiple Wire Sawyer Relationship Specialty Start Date End Date Justen Singer MD [address] [address] PCP - General Family Practice 01/25/20
--- OUTSIDE RECORDS SUMMARY | 2024-05-30 09:19 | XMS_ITS | Continuity of Care Document ---
Author Organization [facility] Address [address] [place] [address] Phone Care Team Providers Care Construction Project Assistant Name Role Phone Paulo Lockwood MD Unavailable Unavailabl e Allergies, Adverse Reactions, Alerts Substance Reaction Status Criticality ceftriaxone Active No Information cortisone Active No Information PENICILLIN Active No Information Medications Medication Instructions Dosage Effective Dates (start - stop) Status Comments atorvastatin 40 mg tablet - Active bupropion HCl XL 150 mg 24 hr tablet, extended release - Active dicyclomine 20 mg tablet - A ctive levetiracetam 500 mg tablet - Active metoprolol tartrate 25 mg tablet - Active mirtazapine 30 mg tablet - A ctive pantoprazole 40 mg tablet,delayed release - Active ropinirole 0.5 mg tablet - A ctive ergocalciferol (vitamin D2) 1,250 mcg (50,000 unit) capsule - Active escitalopram 10 mg tablet - Active Cholestyramine Light 4 gram powder for susp in a packet - Active cyclobenzaprine 5 mg tablet - Active fluconazole 150 mg tablet - Active buspirone 10 mg tablet - Act enriqueta oxycodone 10 mg tablet - Act enriqueta dicyclomine 10 mg capsule - Active metoprolol tartrate 50 mg tablet - Active Cholestyramine Light 4 gram oral powder - Active oxybutynin chloride ER 15 mg tablet,extended release 24 hr - Active amlodipine 5 mg tablet - Act enriqueta Vitamin D2 1,250 mcg (50,000 unit) capsule - Active doxycycline hyclate 100 mg tablet TAKE 1 TABLET BY MOUTH TWICE DAILY - Active Procedures Procedure Date CONTRAST, 300/ML, PER ML MOD SED BY OR SUP BY PHYSICIAN INTRO CATH DIALYSIS CIRCUIT Radiation Exposure Documented To Be Coded Intro cath dialysis circuit Place catheter in artery Artery x-rays arm/leg Mod sed same phys/qhp 5/>yrs Intro cath dialysis circuit Place catheter in artery Artery x-rays arm/leg Mod sed same phys/qhp 5/>yrs CONTRAST, 300/ML, PER ML MOD SED BY OR SUP BY PHYSICIAN INTRO CATH DIALYSIS CIRCUIT Radiation Exposure Documented To Be Coded Intro cath dialysis circuit Mod sed same phys/qhp 5/>yrs Intro cath dialysis circuit Mod sed same phys/qhp 5/>yrs Advance Directives Directive Yes / No Effective Date File Name No Information Encounters Encounter Description Practice Location Reason(s) For Visit Diagnoses Date Provider Providers Copied on Encounter [facility], [address] [place], [place], [id number], tel:[phone] [facility] No Information 4 Fabián Bates . [address] [place] [address], [id number] , [place]. tel: [phone] [facility], [address] [place], [place], [id number], tel:[phone] [facility] Stricture of ArteryEnd stage renal disease 4 Fabián Bates . [address] [place], [place], [id number] , [place]. tel:[phone] Referring Provider: Jamshid Owens, [address] [place] [address], [id number]. tel:[phone] [facility], [address] [place] [address], [id number], tel:[phone] [facility] End stage renal diseaseStricture of Artery 0 4 Lockwood Paulo . [address] [place] [address], [id number] , . tel:[phone] Referring Provider: Jamshid Owens, [address] [place] [address], [id number]. tel:[phone] [facility], [address] [place] [address], [id number], tel:[phone] [facility] Compression of VeinEnd stage renal disease Nov-0 4 Lockwood Paulo . [address] [place] [address], [id number] , . tel:[phone] Referring Provider: Jamshid Owens, [address] [place] [address], [id number]. tel:[phone] [facility], [address] [place] [address], [id number], tel:[phone] [facility] Compression of VeinEnd stage renal disease Nov-0 4 Lockwood Paulo . [address] [place] [address], [id number] , . tel:[phone] Referring Provider: Jamshid Owens, [address] [place] [address], [id number]. tel:[phone] As per patient privacy policy some of the clinical information may not be visible. Family History Family Member Type Diagnosis Age At Onset No Information Payers Payer name Insurance type Covered republican ID Authoriza tion(s) No Information Social History Type Description Quantity Date Captured Comments Sex Female Smoking Status No Information Gender Identity Female Chief Complaint And Reason For Visit No Information Reason For Referral Reason For Referral No Information Plan Of Treatment Date Type Action Status Appointment Layla Maher //LILIA AVF 6 Month F/u - BOOKED Appointment LAYLA MAHER // LILIA AVF 6 MONTH F/U BOOKED Future Order: Radiology Order Up per Body Flouroscopy ([id number]), Ordered on: Ordered Future Order: Radiology Order Up per Body Flouroscopy ([id number]), Ordered on: Ordered History Of Present Illness Encounter Date Complaint History Of Prese nt Illness No Information Functional Status Date Functional Assessmen t No Information Instructions Date Instruction Additional Infor mation No Information Assessments Type Assessment Date No Information Patient Care Teams Name Effective Dates (start - stop) Status Members No Information
--- OUTSIDE RECORDS SUMMARY | 2024-05-30 09:19 | XMS_ITS | Patient Health Summary ---
Author Organization [facility] Address [address] [place] [address] Care Team Providers Care Television Station Manager Name Role Phone Justen Singer MD Primary Care Provider + Note from [facility],non-owned Affiliates and Associated Physician Practices is amultiple site organization consisting of ambulatory clinics and hospital sitesin [place], [place], [place] and [place]. This disclosure is being madepursuant to the Care Everywhere program and may not contain all information available regarding this patient. Last updated 17.[facility] Allergies * Cortisone(Anaphylaxis) -High Criticality * Penicillins(Anaphylaxis) [...] as needed (mid-line flush) * methyl salicylate-menthol (Anand Dial) ointment(Started 08/14/2022) Apply to affected area 4 times daily as needed (back pain) * insulin lispro (HumaLOG;ADMelog) 100 UNIT/ML pen(Started 08/14/2022) Inject 0 (zero) Units to 7 (seven) Units subcutaneously 3 times daily with meals Active Problems Problem Noted Date Diagnosed Date Acute CVA (cerebrovascular accident) 07/27/2022 Seizures 07/26/2022 HTN (hypertension) 07/26/2022 Posterior reversible encephalopathy syndrome (WA ES) 07/26/2022 Unresponsive 07/25/2022 Acute encephalopathy 07/25/2022 [...] stage renal disease) on dialysis (HCC) * CBC W/O DIFFERENTIAL(Performed 10/23/2021) Performed for Aspiration pneumonia of right lower lobe, unspecified aspiration pneumonia type ([facility]) * CT HEAD WO CONTRAST(Performed 10/22/2021) Performed for Subarachnoid hemorrhage following injury, no loss of consciousness, initial encounter([facility]) * XR TIBIA FIBULA LEFT 2VW(Performed 10/22/2021) [...] 03/18/2021) Performed for End stage renal disease ([facility]) * IR CENTRAL LINE REMOVAL(Performed 01/09/2021) Performed for End stage renal disease ([facility]) * IR ANGIO AV SHUNT IMAGING(Performed 10/24/2020) Performed for End stage renal disease ([facility]) * VAS DIALYSIS EXIST ACCESS SCAN(Performed 08/28/2020) Performed for End stage renal disease ([facility]) * CARDIAC EKG ORDER(Performed 07/06/2020) * CREATION ARTERIOVENOUS (AV) FISTULA WITH/WITHOUT GRAFT(Performed 07/04/2020) Performed for ESRD (end stage renal disease) on dialysis ([facility]) * POTASSIUM WHOLE BLD(Performed 07/04/2020) Performed for ESRD (end stage renal disease) ([facility]) * GLUCOSE - POINT OF CARE(Performed 07/04/2020) * BASIC METABOLIC PANEL (CALCIUM TOTAL)(Performed 07/02/2020) Performed for ESRD (end stage renal disease) on dialysis ([facility]) * CBC W AUTO DIFFERENTIAL(Performed 07/02/2020) Performed for ESRD (end stage renal disease) on dialysis ([facility]) * EKG 12-LEAD(Performed 07/02/2020) Performed for Hypertension, unspecified type * VAS BILAT MAPPING FOR HEMODIALYSIS(Performed 06/22/2020) Performed for ESRD (end stage renal disease) on dialysis ([facility]) * IR CENTRAL LINE INSERT TUNNEL(Performed 05/21/2020) Performed for ESRD (end stage renal disease) ([facility]) * IR CENTRAL LINE INSERT TUNNEL(Performed 05/03/2020) Performed for ESRD (end stage renal disease) ([facility]) * OXYGEN(Performed 02/13/2020) * FL PERITONEUM(Performed 02/13/2020) Performed for End stage renal disease ([facility]) Results * SARS-COV-2 (COVID-19) RAPID (08/14/2022 10:36 AM CDT) Only the most recent of3 resultswithin the time period is included. Pathologist [facility] COVID-19 PCR Not detected Not detected 08/15/19 11:18 AM CDT [facility] Microbiology SPECIMEN FROM NASOPHARYNGEAL STRUCTURE / Unknown Collection / Unknown 08/14/2022 10:36 AM CDT 08/14/2022 10:40 AM CDT Narrative [facility] - 08/14/2022 11:18 AM CDT The [employer]ep[employer] Xpert Xpress SARS-COV-2 has been authorized by [...] Nevarez PA-C LAB - MICROBIOLO GY ORDERABLES Performing Organization Address [facility]/State/ZIP Co de Phone Number [facility] [address] [place] [phone], [facility] [phone] * MAGNESIUM BLOOD (08/14/2022 10:30 AM CDT) Only the most recent of27 resultswithin the time period is included. Magnesium 1.7 1.6 - 2.6 mg/dL 08/14/2022 11:22 AM CDT [facility] Blood BLOOD SPECIMEN / Unknown Lab Venipuncture / Unknown 08/14/2022 10:30 AM CDT 08/14/2022 10:50 AM CDT Michael Ordoñez BEATER LEAD-VALVE AND REGULATOR REPAIRER LAB - CHEMISTRY ORDERABLES Performing Organization Address City/[facility]/ZIP Co de Phone Number [address] [address], [facility] [phone] * (ABNORMAL) GLUCOSE - POINT OF CARE (08/14/2022 9:18 AM CDT) Only the most recent of136 resultswithin the time period is included. Glucose WB/POC 126(H) 70 - 115 mg/dL 08/14/2022 9:19 AM CDT [facility] Specimen Type Cap Fingerstick 2022 9:19 AM CDT [facility] Blood BLOOD SPECIMEN / Unknown 08/14/2022 9:18 AM CDT 08/14/2022 9:19 AM CDT Jason Strauss MD LAB - POINT OF CARE ORDERABLES Performing Organization Address [facility]/ZIP Co de Phone Number [address] [address], [facility] [phone] * (ABNORMAL) CBC W/O DIFFERENTIAL (08/14/2022 8:23 AM CDT) Only the most recent of16 resultswithin the time period is included. Pathologist [facility] WBC 10.7(H) 3.5 - 10.5 10 3/uL 08/14/2022 9:34 AM [facility] RBC 3.01(L) 3.80 - 5.20 10 6/uL 08/14/2022 9:34 AM [facility] Hemoglobin 8.5(L) 12.0 - 15.6 g/dL 08/14/2022 9:34 AM [facility] Hematocrit 27.0(L) 35.0 - 45.0 % 08/14/2022 9:34 AM [facility] MCV 89.7 80.7 - 98.3 fL 08/14/2022 9:34 AM [facility] MCH 28.2 26.7 - 34.0 pg 08/14/2022 9:34 AM [facility] MCHC 31.5 30.8 - 35.9 g/dL 08/14/2022 9:34 AM [facility] RDW-SD 45.1 36.0 - 50.0 fL 08/14/2022 9:34 AM [facility] RDW-CV 14.0 11.2 - 14.8 % 08/14/2022 9:34 AM [facility] Platelet Count 322 150 - 400 10 3/uL 08/14/2022 9:34 AM [facility] MPV 9.5 9.4 - 12.9 fL 08/14/2022 9:34 AM [facility] nRBC Absolute 0.00 0 10 3/uL 08/14/2022 9:34 AM [facility] nRBC Auto 0.0 0 /100 WBC 08/14/2022 9:34 AM [facility] Blood BLOOD SPECIMEN / Unknown Lab Venipuncture / Unknown 08/14/2022 8:23 AM CDT 08/14/2022 9:25 AM T Michael Ordoñez BEATER LEAD-VALVE AND REGULATOR REPAIRER LAB - HEMATOLOGY ORDERABLES [facility] [address] [place] [phone], [facility] [phone] * (ABNORMAL) RENAL FUNCTION PANEL (08/12/2022 3:38 AM T) Only the most recent of17 resultswithin the time period is included. BUN 22 7 - 26 mg/dL 08/12/2022 5:07 AM [facility] Creatinine 3.11(H) 0.56 - 0.96 mg/dL 08/12/2022 5:07 AM [facility] Sodium 141 136 - 145 mmol/L 08/12/2022 5:07 AM [facility] Potassium 4.4 3.5 - 4.5 mmol/L 08/12/2022 5:07 AM [facility] Chloride 104 98 - 107 mmol/L 08/12/2022 5:07 AM [facility] CO2 24 22 - 29 mmol/L 08/12/2022 5:07 AM CDT [facility] Glucose 91 70 - 115 mg/dL 08/12/2022 5:07 AM [facility] Albumin 2.7(L) 3.4 - 5.0 g/dL 08/12/2022 5:07 AM [facility] Calcium 9.1 8.4 - 10.2 mg/dL 08/12/2022 5:07 AM [facility] Phosphorus 3.5 2.9 - 5.1 mg/dL 08/12/2022 5:07 AM [facility] Anion Gap 17 8 - 18 08/12/2022 5:07 AM [facility] BUN/Creatinine Ratio 7 7 - 23 08/12/2022 5:07 AM [facility] Osmolality Calculated 295 270 - 300 mOsm/kg 08/12/2022 5:07 AM [facility] eGFR by CKD-EPI 15(L) >=90 mL/min/1.7 3 m2 08/12/2022 5:07 AM [facility] Blood BLOOD SPECIMEN / Unknown Lab Venipuncture / Unknown 08/12/2022 3:38 AM CDT 08/12/2022 4:11 AM CDT Michael Ordoñez BEATER LEAD-VALVE AND REGULATOR REPAIRER LAB - CHEMISTRY ORDERABLES [facility] [address] [place] [address], [facility] [phone] * (ABNORMAL) COMPREHENSIVE METABOLIC PANEL (08/11/2022 2:51 AM CDT) Only the most recent of11 resultswithin the time period is included. BUN 49(H) 7 - 26 mg/dL 08/11/2022 3:21 AM [facility] Creatinine 5.48(H) 0.56 - 0.96 mg/dL 08/11/2022 3:21 AM [facility] Sodium 146(H) 136 - 145 mmol/L 08/11/2022 3:21 AM [facility] Potassium 4.4 3.5 - 4.5 mmol/L 08/11/2022 3:21 AM [facility] Chloride 107 98 - 107 mmol/L 08/11/2022 3:21 AM [facility] CO2 23 22 - 29 mmol/L 08/11/2022 3:21 AM [facility] Glucose 114 70 - 115 mg/dL 08/11/2022 3:21 AM [facility] Calcium 9.0 8.4 - 10.2 mg/dL 08/11/2022 3:21 AM [facility] Protein Total 5.8(L) 6.0 - 8.3 g/dL 08/11/2022 3:21 AM [facility] Albumin 2.6(L) 3.4 - 5.0 g/dL 08/11/2022 3:21 AM [facility] Bilirubin Total 0.6 0.2 - 1.2 mg/dL 08/11/2022 3:21 AM [facility] Alkaline Phosphatase 93 40 - 150 U/L 08/11/2022 3:21 AM [facility] ALT 28 5 - 55 U/L 08/11/2022 3:21 AM [facility] AST 18 5 - 34 U/L 08/11/2022 3:21 AM [facility] Anion Gap 20(H) 8 - 18 08/11/2022 3:21 AM [facility] BUN/Creatinine Ratio 9 7 - 23 08/11/2022 3:21 AM [facility] Osmolality Calculated 316(H) 270 - 300 mOsm/kg 08/11/2022 3:21 AM [facility] Albumin/Globulin Ratio 0.8(L) 1.1 - 2.3 08/11/2022 3:21 AM [facility] eGFR by CKD-EPI 8(L) >=90 mL/min/1.7 3 m2 08/11/2022 3:21 AM [facility] Blood BLOOD SPECIMEN / Unknown Venipuncture / Unknown 08/11/2022 2:51 AM T 08/11/2022 2:54 AM T Michael Ordoñez BEATER LEAD-VALVE AND REGULATOR REPAIRER LAB - CHEMISTRY ORDERABLES [facility] [address] [place] [address], [place] [phone] * (ABNORMAL) PHOSPHORUS BLOOD (08/11/2022 2:51 AM CDT) Only the most recent of9 resultswithin the time period is included. [facility] Phosphorus 5.3(H) 2.9 - 5.1 mg/dL 08/11/2022 3:21 AM CDT [facility] Blood BLOOD SPECIMEN / Unknown Venipuncture / Unknown 08/11/2022 2:51 AM CDT 08/11/2022 2:54 AM CDT Michael Ordoñez BEATER LEAD-VALVE AND REGULATOR REPAIRER LAB - CHEMISTRY ORDERABLES [facility] [address] [place] [address], [facility] [phone] * CARDIAC EKG ORDER (08/06/2022 2:23 PM CDT) Only the most recent of2 resultswithin the time period is included. Narrative 08/06/2022 2:23 PM CDT Ordered by an unspecified provider. Scanned Document CARDIAC SERVICES ORD ERABLES * EKG 12-LEAD (08/06/2022 2:12 PM CDT) Only the most recent of3 resultswithin the time period is included. [facility] Ventricular Rate 76 BPM [facility] Atrial Rate 76 BPM [facility] P-R Interval 202 ms [facility] QRS Duration ms 94 ms [facility] Q-T Interval ms 424 ms [facility] QTC Calculation (Bezet) 477 ms [facility] Calculated P [place] 40 degrees [facility] Calculated R [place] -25 degrees [facility] Calculated T [place] 77 degrees [facility] Interpretation EKG NORMAL SINUS RHYTHM MINIMAL VOLTAGE CRITERIA FOR LVH, MAY BE NORMAL VARIANT ( Trey product ) NONSPECIFIC T WAVE ABNORMALITY PROLONGED QT ABNORMAL ECG WHEN COMPARED WITH ECG OF 26-JUL-2022 20:44, PREMATURE VENTRICULAR COMPLEXES ARE NO LONGER PRESENT PREMATURE ATRIAL COMPLEXES ARE NO LONGER PRESENT T WAVE INVERSION NOW EVIDENT IN ANTERIOR LEADS Confirmed by LUIS FIGUEROA MD ([id number]) on 08/08/2022 7:57:28 AM [facility] M[facility] 08/06/2022 2:12 PM CDT 08/08/2022 7:57 AM CDT Judie Yuen PA-C ECG ORDERABLES [facility] ALBERTO * (ABNORMAL) CBC W AUTO DIFFERENTIAL (08/06/2022 1:33 AM CDT) Only the most recent of15 resultswithin the time period is included. WBC 9.9 3.5 - 10.5 10 3/uL 08/06/2022 2:50 AM [facility] RBC 2.75(L) 3.80 - 5.20 10 6/uL 08/06/2022 2:50 AM [facility] Hemoglobin 7.7(L) 12.0 - 15.6 g/dL 08/06/2022 2:50 AM [facility] Hematocrit 23.7(L) 35.0 - 45.0 % 08/06/2022 2:50 AM [facility] MCV 86.2 80.7 - 98.3 fL 08/06/2022 2:50 AM [facility] MCH 28.0 26.7 - 34.0 pg 08/06/2022 2:50 AM [facility] MCHC 32.5 30.8 - 35.9 g/dL 08/06/2022 2:50 AM [facility] RDW-SD 46.2 36.0 - 50.0 fL 08/06/2022 2:50 AM [facility] RDW-CV 14.8 11.2 - 14.8 % 08/06/2022 2:50 AM [facility] Platelet Count 478(H) 150 - 400 10 3/uL 08/06/2022 2:50 AM [facility] MPV 8.8(L) 9.4 - 12.9 fL 08/06/2022 2:50 AM [facility] nRBC Absolute 0.00 0 10 3/uL 08/06/2022 2:50 AM [facility] nRBC Auto 0.0 0 /100 WBC 08/06/2022 2:50 AM [facility] Neutrophils % 68.3 35.0 - 70.0 % 08/06/2022 2:50 AM [facility] Lymphocytes % 14.9(L) 20.0 - 43.0 % 08/06/2022 2:50 AM [facility] Monocytes % 12.0 5.0 - 13.0 % 08/06/2022 2:50 AM [facility] Eosinophils % 2.6 0.0 - 6.0 % 08/06/2022 2:50 AM [facility] Basophil % 0.2 0.0 - 2.0 % 08/06/2022 2:50 AM [facility] Neutrophils Absolute 6.75 1.60 - 7.00 10 3/uL 08/06/2022 2:50 AM [facility] Lymphocyte Absolute 1.48 1.10 - 3.90 10 3/uL 08/06/2022 2:50 AM [facility] Monocytes Absolute 1.19(H) 0.26 - 1.07 10 3/uL 08/06/2022 2:50 AM [facility] Eosinophils Absolute 0.26 0.00 - 0.47 10 3/uL 08/06/2022 2:50 AM [facility] Basophils Absolute 0.02 0.00 - 0.08 10 3/uL 08/06/2022 2:50 AM [facility] Immature Granulocytes % 2.0(H) 0.0 - 1.0 % 08/06/2022 2:50 AM [facility] Immature Granulocytes Absolute 0.20 08/06/2022 2:50 AM [facility] Blood BLOOD SPECIMEN / Unknown Lab Venipuncture / Unknown 08/06/2022 1:33 AM CDT 08/06/2022 2:37 AM [facility] Sree Wade MD LAB - HEMATOLOGY ORD ERABLES [facility] [address] [place] [address], [facility] [phone] * VAS DIALYSIS EXIST ACCESS SCAN (08/05/2022 [...] - 77.0 pg/mL 07/30/2022 3:39 AM CDT [facility] Blood BLOOD SPECIMEN / Unknown Venipuncture / Unknown 07/30/2022 3:00 AM CDT 07/30/2022 3:08 AM CDT Roney Manriquez MD LAB - CHEMISTRY NELLI PATEL [address] [address], [facility] [phone] * (ABNORMAL) VITAMIN D 25-HYDROXY (07/30/2022 3:00 AM CDT) Vitamin D, 25 Hydroxy 25.0(L) 30.0 - 80.0 ng/mL 07/30/2022 3:53 AM CDT [facility] Comment: The recommendations for 25-Hydroxy Vitamin D clinical decision points are as follows: Deficient: <20.0 ng/mL Insufficient: 20.0 - 29.9 ng/mL Sufficient: 30.0 - 100.0 ng/mL Potential Toxicity: >100 ng/mL Reference: The Endocrine Society Clinical Practice Guidelines. 2011 If the 25-Hydroxy Vitamin D results are inconsitent with clinical evidence, it is recommended that follow-up testing using a method such as LC/MS/MS be performed to confirm the result. Blood BLOOD SPECIMEN / Unknown Venipuncture / Unknown 07/30/2022 3:00 AM CDT 07/30/2022 3:08 AM CDT Roney Manriquez MD LAB - CHEMISTRY NELLI PATEL [facility] [address] [place] [address], [facility] [phone] * (ABNORMAL) BLOOD GASES ART + COOX PANEL (07/29/2022 11:15 PM CDT) Only the most recent of4 resultswithin the time period is included. pH Arterial 7.49(H) 7.35 - 7.45 pH 07/29/2022 11:23 PM [facility] pO2 Arterial 96 80 - 100 mmHg 07/29/2022 11:23 PM [facility] pCO2 Arterial 34(L) 35 - 45 mmHg 11:23 PM [facility] HCO3 Arterial 25.9 20.0 - 30.0 mmol/L 07/29/2022 11:23 PM [facility] BE Arterial 2.6(H) -2.0 - 2.0 mmol/L 07/29/2022 11:23 PM [facility] Oxyhemoglobin Arterial 96.4 % 07/29/2022 11:23 PM [facility] Dexoyhemoglobin (HHB) % 1.2 % 07/29/2022 11:23 PM [facility] Methemoglobin 0.8 0.0 - 2.0 % 07/29/2022 11:23 PM [facility] Carboxyhemoglobin 1.7 0.0 - 2.0 % 2022 11:23 PM [facility] O2 Content Arterial 12.2 Interpret within clinical context ml/dL 07/29/2022 11:23 PM [facility] Hemoglobin by COOX 8.9(L) 12.0 - 15.6 g/dL 07/29/2022 11:23 PM [facility] O2 Saturation Arterial 99 90 - 100 % 07/29/2022 11:23 PM [facility] FI O2 Arterial 50.0 % 07/29/2022 11:23 PM CDT [facility] Blood, arterial ARTERIAL BLOOD SPECIMEN / Unknown Arterial Puncture / Unknown 07/29/2022 11:15 PM CDT 07/29/2022 11:20 PM CDT Narrative [facility] - 07/29/2022 11:23 PM CDT Carboxyhemoglobin Normal Concentration: Non-smokers: 0-2%; Smokers: 0-9%; Toxic: >20% Roney Manriquez MD LAB - BLOOD GASES OR DERABLES [facility] [address] [place] [address], [facility] [phone] * XR ABDOMEN KUB PORTABLE (07/29/2022 10:14 PM CDT) Only the most recent of2 resultswithin the time period is included. Anatomical Region Laterality Modality Abdomen Radiographic Carli ging 07/30/2022 7:40 AM CDT Narrative 07/30/2022 10:55 AM CDT PROCEDURE: XR ABDOMEN KUB PORTABLE DATE/TIME OF EXAM: 07/29/2022 10:14 PM CLINICAL INFORMATION: None relevant/not provided if blank. Indication: J96.01: Acute respiratory failure with hypoxia (CMS/HCC) Additional History: COMPARISON: X-ray abdomen KUB 07/25/2022 FINDINGS/IMPRESSION: Enteric tube is seen coursing below the diaphragm with tip projecting in the gastric body. Report dictated by Kingsley Light MD, MD (radiology administrator). > Dictated by Kingsley Light MD (Probate Clerk) 07/30/2022 7:40 AM IBalwinder MD have personally [...] dictated by Kingsley Light MD, MD (radiology administrator). > Dictated by Kingsley Light MD (Probate Clerk) 07/30/2022 7:40 AM I, Balwinder Love MD have personally reviewed and interpreted this examination/study. > Interpreting Provider: Balwinder Love MD on 07/30/2022 10:55 AM Roney Manriquez MD DIAGNOSTIC IMAGING O RDERABLES * XR CHEST 1VW PORTABLE (07/29/2022 10:13 PM CDT) Only the most recent of5 resultswithin the time period is included. Anatomical Region Laterality Modality Chest Radiographic Carli ging 07/30/2022 7:41 AM CDT Narrative 07/30/2022 10:55 AM CDT PROCEDURE: XR CHEST 1VW PORTABLE, DATE/TIME OF EXAM: 07/29/2022 10:13 PM, LOCATION [facility] INDICATION: J96.01: Acute respiratory failure with hypoxia [...] dictated by Kingsley Light MD, MD (radiology administrator). > Dictated by Kingsley Light MD (Probate Clerk) 07/30/2022 7:41 AM Balwinder Tena MD have personally reviewed and interpreted this examination/study. > Interpreting Provider: Balwinder Love MD on 07/30/2022 10:55 AM Procedure Note Balwinder Love MD - 07/30/2022 PROCEDURE: XR CHEST 1VW PORTABLE, DATE/TIME OF EXAM: 07/29/2022 10:13PM, LOCATION [facility] INDICATION: J96.01: Acute respiratory failure with hypoxia [...] verification. Report dictated by Kingsley Light MD, (radiology administrator). > Dictated by Kingsley Light MD (Probate Clerk) 07/30/2022 7:41 AM Balwinder Tena MD have personally reviewed and interpreted this examination/study. > Interpreting Provider: Balwinder Love MD on 07/30/2022 10:55 AM Roney Manriquez MD DIAGNOSTIC IMAGING O RDERABLES * (ABNORMAL) BLOOD GASES GUY + COOX PANEL (07/29/2022 2:49 PM CDT) Only the most recent of2 resultswithin the time period is included. pH Venous 7.53(H) 7.32 - 7.42 pH 07/29/2022 3:29 PM CDT [facility] pO2 Venous 90(H) 35 - 40 mmHg 07/29/2022 3:29 PM [facility] pCO2 Venous 35(L) 40 - 50 mmHg 07/29/2022 3:29 PM [facility] HCO3 Venous 29.2 20 - 30 mmol/L 07/29/2022 3:29 PM [facility] Base Excess Venous 5.9(H) -2.0 - 2.0 mmol/L 07/29/2022 3:29 PM [facility] Oxyhemoglobin Venous 97.1 % 07/14 3:29 PM [facility] Deoxyhemoglobin (HHB) Venous % 1.0 % 07/29/2022 3:29 PM [facility] Methemoglobin 0.8 0.0 - 2.0 % 07/29/2022 3:29 PM [facility] Carboxyhemoglobin 1.2 0.0 - 2.0 % 2022 3:29 PM [facility] O2 Content Venous 6.6 Interpret within clinical context ml/dL 07/29/2022 3:29 PM [facility] Hemoglobin by COOX 4.7(LL) 12.0 - 15.6 g/dL 07/29/2022 3:29 PM [facility] O2 Saturation Venous 99 >=70 % 07/14 3:29 PM [facility] FI O2 Mixed Venous 24.0 % 2022 3:29 PM [facility] Blood BLOOD SPECIMEN / Unknown Venipuncture / Unknown 07/29/2022 2:49 PM CDT 07/29/2022 2:51 PM [facility] - 07/29/2022 3:29 PM T Carboxyhemoglobin Normal Concentration: Non-smokers: 0-2%; Smokers: 0-9%; Toxic: >20% Roney Manriquez MD LAB - BLOOD GASES OR DERABLES [facility] [address] [place] [address], [facility] [phone] * (ABNORMAL) B-TYPE NATRIURETIC PEPTIDE (07/29/2022 3:37 AM CDT) BNP 602(H) <100 pg/mL 07/29/2022 4:17 AM CDT [facility] Comment: A decision threshold of 100 pg/mL has been demonstrated to provide the maximal combination of sensitivity, specificity and predictive value for the diagnosis of congestive heart failure (CHF). Virtually all patients with no evidence of CHF have BNP values less than 100 pg/mL. A BNP value greater than 100 pg/mL is consistent with the diagnosis of CHF in the appropriate clinical setting. In a study of 693 patients (male and female) with diagnosed CHF, the following values were determined based on the NYHA functional classification system: NYHA Functional Class Mean Valule (pg/mL) % >100 pg/mL I 320 58.1 II 432 73.0 III 656 79.0 IV 1635 98.3 Blood BLOOD SPECIMEN / Unknown Venipuncture / Unknown 07/29/2022 3:37 AM CDT 07/29/2022 3:45 AM CDT Roney Manriquez MD LAB - CHEMISTRY NELLI PATEL [facility] [address] [address], [facility] [phone] * ECHO LIMITED W BUBBLE STUDY (07/28/2022 10:01 PM CDT) Only the most recent of2 resultswithin the time period is included. BSA [id number] m2 SS CV FUJ I PACS Anatomical Region Laterality Modality Ultrasound Addenda Addendum by Lokesh Monteiro MD on 07/29/2022 9:39 AM CDT No evidence of right to left shunt [...] + TRANSFERRIN PANEL (07/28/2022 4:09 AM CDT) Iron 16(L) 40 - 150 ug/dL 07/28/2022 4:48 AM CDT [facility] Transferrin 124(L) 174 - 382 mg/dL 07/28/2022 4:48 AM CDT [facility] Transferrin Saturation % 10(L) 16 - 50 % 07/28/2022 4:48 AM CDT [facility] TIBC Calculated 155(L) 240 - 450 ug/dL 07/28/2022 4:48 AM CDT [facility] Blood BLOOD SPECIMEN / Unknown Venipuncture / Unknown 07/28/2022 4:09 AM CDT 07/28/2022 4:16 AM CDT Sree Wade MD LAB - CHEMISTRY [facility] [address] [address], [facility] [phone] * (ABNORMAL) FERRITIN (07/28/2022 4:09 AM CDT) Ferritin 1,939(H) 13 - 204 ng/mL 07/28/2022 5:39 AM CDT [facility] Comment:Result obtained by smiley morgan. Blood BLOOD SPECIMEN / Unknown Venipuncture / Unknown 07/28/2022 4:09 AM CDT 07/28/2022 4:16 AM CDT Sree Wade MD LAB - CHEMISTRY [facility] [address] [place] [address], [facility] [phone] * (ABNORMAL) LIPID PROFILE (07/28/2022 4:09 AM CDT) Cholesterol Total 88 <200 mg/dL 07/28/2022 4:44 AM T [facility] HDL 23(L) >40 mg/dL 07/28/2022 4:44 AM T [facility] Comment: ATP III Classification of HDL Cholesterol: <40 mg/dL: Considered a major risk factor. >60 mg/dL: Considered a negative risk factor. LDL Calculated 37 <100 mg/dL 07/28/2022 4:44 AM [facility] Comment: ATP III Classification of LDL Cholesterol: <100 mg/dL: Optimal 100 - 129 mg/dL: Near Optimal/Above Optimal 130 - 159 mg/dL: Borderline High 160 - 189 mg/dL: High >190 mg/dL: Very High Triglycerides 139 <150 mg/dL 07/28/2022 4:44 AM [facility] Comment: ATP III Classification of Triglycerides: <150 mg/dL: Normal 150 - 199 mg/dL: Borderline High 200 - 400 mg/dL: High >500 mg/dL: Very High Blood BLOOD SPECIMEN / Unknown Venipuncture / Unknown 07/28/2022 4:09 AM CDT 07/28/2022 4:15 AM CDT Sree Wade MD LAB - CHEMISTRY [facility] Organization Address City/State/ZIP Co de Phone Number [address] [address], [facility] [phone] * TSH REFLEX FREE T4 (07/27/2022 4:04 AM CDT) TSH 2.570 0.350 - 4.940 uIU/mL 07/27/2022 5:03 AM [facility] Blood BLOOD SPECIMEN / Unknown Venipuncture / Unknown 07/27/2022 4:04 AM CDT 07/27/2022 4:15 AM CDT Sree Wade MD LAB - CHEMISTRY [place] [address] [id number] [place] [phone], [facility] [phone] * HEPATITIS B SURFACE ANTIBODY QUANT (07/26/2022 5:15 PM CDT) Hepatitis B Virus Surface Antibody 9.22 IU/L 07/29/2022 12:05 PM CDT [facility] [employer] ([facility]) Comment: The anti-HBs is less than 10 [...] Cellular and Tissue-Based Products (HCT/P). Performed By: [employer] [address] [place] [address] Dietetics Director: Khanh Gabriel MD, PhD Blood BLOOD SPECIMEN / Unknown Venipuncture / Unknown 07/26/2022 5:15 PM CDT 07/26/2022 5:17 PM CDT Jose Thomas MD LAB - SE ROLOGY ORDERABLES [facility]) [address] * HEPATITIS B SURFACE ANTIGEN W RFLX CONFIRMATION (07/26/2022 5:15 PM CDT) Only the most recent of2 resultswithin the time period is included. Hepatitis B Virus Surface Antigen Non-reacti ve Non-reacti ve 07/26/2022 6:09 PM CDT [facility] Blood BLOOD SPECIMEN / Unknown Venipuncture / Unknown 07/26/2022 5:15 PM CDT 07/26/2022 5:17 PM CDT Jose Hayder Thomas MD LAB - CH EMISTRY ORDERABLES [facility] [address] [place] [address], [facility] [phone] * MRI ANGIO BRAIN ARTERIAL WO CONT (07/26/2022 5:36 AM CDT) Anatomical Region Laterality Modality Head Magnetic Resonan ce 07/26/2022 10:5 2 PM CDT Impressions 07/27/2022 8:36 AM CDT IMPRESSION: 1.Transcortical restricted diffusion in the right occipitotemporal and parietal regions. Involvement of both MCA and LOSS PREVENTION INVESTIGATOR territories is atypical however, these findings could [...] to Dr. Kaur by Dr. Larsen on 07/27/2022 at 7:51 AM with read back comprehension and verification. Results of this exam were communicated with closed loop confirmation to Dr. Pearson by Dr. Larsen on 07/27/2022 at 8:16 AM with read back comprehension and verification. > Interpreting Provider: Marla Larsen MD on 07/27/2022 8:36 AM Narrative 07/27/2022 8:36 AM CDT PROCEDURE: MRI BRAIN WO CONTRAST, MRI ANGIO BRAIN ARTERIAL WO CONT. LOCATION [facility] DATE/TIME OF EXAM: 07/26/2022 5:36 AM CLINICAL INFORMATION: None relevant/not provided if blank. Indication: R41.89: Unresponsive ADDITIONAL CLINICAL INFORMATION: Ordering Provider Reason For Exam: Concern for PRES, unresponsive off sedation Technologist Note: Does the patient have a defibrillator, pacemaker, aneurysm clips or implanted mechanical devices?->No Does the patient have metal implants or stents?->No Additional: 77 year [...] MRI ANGIO BRAIN ARTERIAL WO CONT. LOCATION [facility] DATE/TIME OF EXAM: 07/26/2022 5:36 AM CLINICAL [...] parietal regions. Involvement of both MCA and LOSS PREVENTION INVESTIGATOR territories isatypical however, these findings could represent [...] parietal regions. Involvement of both MCA and LOSS PREVENTION INVESTIGATOR territories is atypical however, these findings could [...] to Dr. Kaur by Dr. Larsen on 07/27/2022 at 7:51 AM with read back comprehension and verification. Results of this exam were communicated with closed loop confirmation to Dr. Pearson by Dr. Larsen on 07/27/2022 at 8:16 AM with read back comprehension and verification. > Interpreting Provider: Marla Larsen MD on 07/27/2022 8:36 AM Narrative 07/27/2022 8:36 AM CDT PROCEDURE: MRI BRAIN WO CONTRAST, MRI ANGIO BRAIN ARTERIAL WO CONT. LOCATION [facility] DATE/TIME OF EXAM: 07/26/2022 5:36 AM CLINICAL INFORMATION: None relevant/not provided if blank. Indication: R41.89: Unresponsive ADDITIONAL CLINICAL INFORMATION: Ordering Provider Reason For Exam: Concern for PRES, unresponsive off sedation Technologist Note: Does the patient have a defibrillator, pacemaker, aneurysm clips or implanted mechanical devices?->No Does the patient have metal implants or stents?->No Additional: 77 year [...] MRI ANGIO BRAIN ARTERIAL WO CONT. LOCATION [facility] DATE/TIME OF EXAM: 07/26/2022 5:36 AM CLINICAL [...] parietal regions. Involvement of both MCA and LOSS PREVENTION INVESTIGATOR territories isatypical however, these findings could represent [...] 6.1(H) <=5.6 % 07/27/2022 9:53 AM CDT [facility] Estimated Average Glucose 128 mg/dL 07/27/2022 9:53 AM CDT [facility] Comment: HbA1c Interpretation: Normal : < 5.7% Pre-diabetes: 5.7-6.4% Diabetes: Equal to or greater than 6.5% Test results diagnostic of diabetes should be repeated for confirmation. Treatment target values recommended by ADA and other clinical organizations should be used to evaluate metabolic control in patients. Reference: [place] [employer], Standards of Care in Diabetes [...] Sree Wade MD LAB [facility] Organization Address City/State/[facility] Co de Phone Number [facility] [address] [place] [phone], [facility] [phone] * XR SKULL 3VW OR LESS (07/25/2022 10:52 PM CDT) Anatomical Region Laterality Modality Head Radiographic Carli ging 07/26/2022 9:30 AM CDT Narrative 07/26/2022 12:49 PM CDT PROCEDURE: XR SKULL 3VW OR LESS DATE/TIME [...] the right acromioclavicular and right glenohumeral joints. Deejay Tena have personally reviewed and interpreted this examination/study. [...] CDT Narrative 07/26/2022 12:49 PM CDT PROCEDURE: XR PELVIS 1 OR 2VW DATE/TIME OF EXAM: 07/25/2022 10:52 PM CLINICAL INFORMATION: None relevant/not provided if blank. Indication: R41.89: Unresponsive Additional History: COMPARISON: None. FINDINGS/IMPRESSION: No acute fracture. The femoral heads are well-seated in the respective acetabula. Severe degenerative changes in the bilateral hip joints. Severe osteopenia. No metallic objects are seen. Extensive atherosclerotic vascular calcification. Deejay Tena have personally reviewed and interpreted this examination/study. [...] objects are seen. Extensive atherosclerotic vascular calcification. I, Deejay Espinoza have personally reviewed and interpreted this examination/study. > Interpreting Provider: Deejay Espinoza on 07/26/2022 12:49 PM Sree Wade MD DIAGNOSTIC IMAGING O RDERABLES * CULTURE URINE (07/25/2022 8:34 PM CDT) Culture Urine No growth (<100 CFU/mL) KERI 07/27/2022 5:33 AM CDT [facility] MICROBIOLOGY Urine URINE SPECIMEN OBTAINED BY CLEAN CATCH PROCEDURE / Unknown Collection / Unknown 07/25/2022 8:34 PM CDT 07/25/2022 8:37 PM CDT Sree Wade MD LAB - MICROBIOLOGY O RDERABLES [facility] MICROBIOLOGY [address] [place] [address], [facility] [phone] * IR ANGIO AV SHUNT IMAGING (02/28/2022 2:06 PM PROGRAM DIRECTOR/TRAFFIC DIRECTOR) Only the most recent of4 resultswithin the time period is included. Anatomical Region Laterality Modality Lower Extremity, Upper Extremity, Chest X-Ray Angiography Narrative 02/28/2022 2:16 PM PROGRAM DIRECTOR/TRAFFIC DIRECTOR Shakeel Porras MD 02/28/2022 2:35 PM VASCULAR AND INTERVENTIONAL RADIOLOGY EXAMINATION: DIALYSIS FISTULAGRAM Date: 02/28/2022 History: Layla Maher is a 76 year old female with history of hypertension, diabetes, and end-stage renal disease who dialyzes through a left upper arm brachiocephalic arteriovenous fistula. The patient states that she was infiltrated on Thursday with bruising. At dialysis today, there was difficulty cannulating the mid upper arm cephalic vein. The patient does note intermittent prolonged bleeding upon decannulation lasting 10-15 minutes. No complaints of left upper extremity swelling. Fistulagram is requested. Diagnosis code: N18.6 Fluoroscopy time: 0.2 minutes. Absorbed patient dose: 4.38 mGy. Contrast amount: 15 mL Isovue-300. Technique: The risks, benefits, and alternatives were discussed and informed consent was obtained. Prior to beginning the procedure, universal protocol was performed to confirm the patient's identity and the planned procedure. Maximum sterile barriers including cap, mask, hand hygiene, sterile gloves, sterile gown, large sterile drape, and 2% chlorhexidine for cutaneous antisepsis were used. Preprocedure limited left upper extremity arteriovenous fistula duplex was performed. There is no flow-limiting stenosis of the arteriovenous anastomosis. The skin over the left upper extremity dialysis arteriovenous brachiocephalic fistula was sterilely prepped, draped, and infiltrated with 1% lidocaine. Antegrade access was obtained within the juxta anastomotic antecubital cephalic vein using a micropuncture needle set followed by the placement of a 5-Monegasque catheter. Multiple DSA images were obtained to visualize the dialysis access from the distal humeral level through the superior vena cava. At the end of the procedure, the 5-Monegasque catheter was removed, manual pressure was held to achieve hemostasis, and a sterile dressing was applied. The patient tolerated the procedure well and without complications. Findings: Preprocedure ultrasound images demonstrated a normal sized arteriovenous anastomosis without focal stenosis. At the proximal/mid upper arm, the cephalic vein is deep from the skin surface. A moderately sized ovoid hematoma (from recent infiltration) is present adjacent to the mid upper arm cephalic vein. This hematoma is further increasing the depth of the cephalic vein from the skin surface. The cephalic vein at the antecubital fossa and distal upper arm demonstrates adequate size and is superficial. Angiographic images demonstrate a 10-20% focal non flow-limiting mid humeral level cephalic vein stenosis. There is no focal flow-limiting stenosis of the left cephalic arch, left subclavian vein, left brachiocephalic vein, or superior vena cava. Brisk flow is present within the dialysis access. IMPRESSION: Successful dialysis fistulagram failing to reveal evidence of focal flow limiting stenosis or thrombus, as described above. PLAN: The dialysis access is ready for immediate use. The skin overlying the cephalic vein at its most superficial aspects (antecubital fossa and distal upper arm) was marked to facilitate cannulation. Additionally, a temporary tourniquet should be placed at the proximal left upper arm prior to cannulation. The proximal/mid upper arm cephalic vein should not be cannulated given the depth of the cephalic vein from the skin surface. Vladislav Porras M.D. Vascular and Interventional Radiology [facility] [phone] CC: Patient's fundraising sale representative: Dr. Jamshid Joe Dialysis unit: [facility] Jamshid Joe MD IR ORDERABLES * XR KNEE LEFT 3VW (02/19/2022 8:42 AM PROGRAM DIRECTOR/TRAFFIC DIRECTOR) Only the most recent of5 resultswithin the time period is included. Anatomical Region Laterality Modality Lower Extremity Radiographic Carli ging 02/19/2022 8:42 AM PROGRAM DIRECTOR/TRAFFIC DIRECTOR Impressions 02/19/2022 8:47 AM PROGRAM DIRECTOR/TRAFFIC DIRECTOR IMPRESSION: Unchanged alignment of tibial plateau and fibular head fractures. > Dictated by Rickey White MD (radiology administrator) I, Nicolas Rosas MD have personally reviewed and interpreted this examination/study. > Interpreting Provider: Nicolas Rosas MD on 02/19/2022 8:47 AM Narrative 02/19/2022 8:47 AM PROGRAM DIRECTOR/TRAFFIC DIRECTOR PROCEDURE: XR KNEE LEFT 3VW, DATE/TIME OF EXAM: 02/19/2022 8:42 AM, LOCATION: [facility] INDICATION: Z47.89: Orthopedic aftercare ADDITIONAL CLINICAL INFORMATION: [...] DATE/TIME OF EXAM: 02/19/2022 8:42 AM, LOCATION: [facility] INDICATION: Z47.89: Orthopedic aftercare ADDITIONAL CLINICAL INFORMATION: [...] > Dictated by Rickey White MD (radiology administrator) INicolas MD have personally reviewed and interpreted this [...] Report dictated by Lay Stinson DO (radiology administrator). Nicolas Tena MD have personally reviewed and interpreted this examination/study. > Interpreting Provider: Nicolas Rosas MD on 01/08/2022 9:26 AM Narrative 01/08/2022 9:26 AM CDT PROCEDURE: XR KNEE LEFT 2VW OR LESS, DATE/TIME OF EXAM: 01/08/2022 9:04 AM, LOCATION [facility] INDICATION: S82.142D: Closed fracture of left tibial [...] LEFT 2VW OR LESS, DATE/TIME OF EXAM: :04 AM, LOCATION [facility] INDICATION: S82.142D: Closed fracture of left tibial [...] Report dictated by Lay Stinson DO (radiology administrator). I, Nicolas Rosas MD have personally reviewed [...] CDT Narrative 10/22/2021 3:42 PM CDT PROCEDURE: XR TIBIA FIBULA LEFT 2VW, DATE/TIME OF EXAM: 10/22/2021 3:15 PM, LOCATION [facility] INDICATION: M25.562: Acute pain of left knee [...] Report dictated by Kaela Reyes MD (radiology administrator). Emilia Tena MD have personally reviewed and interpreted this examination/study. > Interpreting Provider: Emilia Bustillo MD on 10/22/2021 3:42 PM Procedure Note Emilia Bustillo MD - 10/22/2021 PROCEDURE: XR TIBIA FIBULA LEFT 2VW, DATE/TIME OF EXAM: 10/22/2021 3:15PM, LOCATION [facility] INDICATION: M25.562: Acute pain of left knee [...] Report dictated by Kaela Reyes MD (radiology administrator). Emilia Tena MD have personally reviewed and [...] > Dictated by Ulises Villasenor DO (radiology administrator). ISherly MD have personally reviewed and interpreted this examination/study. > Interpreting Provider: Sherly So MD on 10/22/2021 2:21 PM Narrative 10/22/2021 2:21 PM CDT PROCEDURE: CT KNEE LEFT WO CONTRAST, DATE/TIME OF EXAM: 10/22/2021 1:16 PM, [facility] INDICATION: M25.562: Acute pain of left knee [...] WO CONTRAST, DATE/TIME OF EXAM: 10/22/2021 1:16PM, [facility] INDICATION: M25.562: Acute pain of left knee [...] > Dictated by Ulises Villasenor DO (radiology administrator). Sherly Tena MD have personally reviewed and interpreted [...] considered. Dictated by Tay Conti MD (radiology administrator). > Dictated by Tay Conti (Probate Clerk) 10/22/2021 3:57 PM KRISTY Tena MD have personally reviewed and interpreted this examination/study. > Interpreting Provider: KRISTY GUNTER MD on 10/22/2021 4:34 PM Narrative 10/22/2021 4:34 PM CDT PROCEDURE: CT CHEST ABDOMEN PELVIS W CONT, DATE/TIME OF EXAM: 10/22/2021 1:16 PM, LOCATION [facility] INDICATION: W19.XXXA: Fall, initial encounter ADDITIONAL CLINICAL [...] DATE/TIME OF EXAM: 10/22/2021 1:16 PM, LOCATION [facility] INDICATION: W19.XXXA: Fall, initial encounter ADDITIONAL CLINICAL [...] considered. Dictated by Tay Conti MD (radiology administrator). > Dictated by Tay Conti (Probate Clerk) 10/22/2021 3:57 PM IKRISTY MD have personally [...] Report dictated by Kaela Reyes MD (radiology administrator). > Dictated by Kaela Reyes (Probate Clerk) 10/22/2021 11:08 AM KRISTY Tena MD have personally reviewed and interpreted this examination/study. > Interpreting Provider: KRISTY GUNTER MD on 10/22/2021 11:31 AM Narrative 10/22/2021 11:31 AM CDT PROCEDURE: XR WRIST RIGHT 3VW OR MORE, DATE/TIME OF EXAM: 10/22/2021 9:53 AM, LOCATION [facility] INDICATION: W19.XXXA: Fall, initial encounter ADDITIONAL CLINICAL [...] MORE, DATE/TIME OF EXAM: 29:53 AM, LOCATION [facility] INDICATION: W19.XXXA: Fall, initial encounter ADDITIONAL CLINICAL [...] Report dictated by Kaela Reyes MD (radiology administrator). > Dictated by Kaela Reyes (Probate Clerk) 10/22/2021 11:08 AM KRISTY Tena MD have [...] dictated by Yonas Saunders MD, PhD (radiology administrator). I, Marla Larsen MD have personally reviewed and interpreted this examination/study. > Interpreting Provider: Marla Larsen MD on 10/22/2021 10:31 AM Narrative 10/22/2021 10:31 AM CDT PROCEDURE: CT HEAD WO CONTRAST, CT LUMBAR SPINE WO CONTRAST, CT THORACIC SPINE WO CONTRAST, CT CERVICAL SPINE WO CONTRAST, DATE/TIME OF EXAM: 10/22/2021 8:46 AM, LOCATION [facility] INDICATION: W19.XXXA: Fall, initial encounter ADDITIONAL CLINICAL INFORMATION: Ordering Provider Reason For Exam: fall, scalp hematoma over L (accession [id number]), fracture (accession [id number]), fracture (accession [id number]), fall (accession [id number]) Technologist Note: None Additional: None COMPARISON: None. [...] DATE/TIME OF EXAM: 10/22/2021 8:46 AM, LOCATION [facility] INDICATION: W19.XXXA: Fall, initial encounter ADDITIONAL CLINICAL INFORMATION: Ordering Provider Reason For Exam: fall, scalp hematoma over L(accession [id number]), fracture (accession [id number]), fracture ([id number]), fall (accession [id number]) Technologist Note: None Additional: None COMPARISON: None. [...] dictated by Yonas Saunders MD, PhD (radiology administrator). Marla Tena MD have personally reviewed and interpretedthis examination/study. [...] dictated by Yonas Saunders MD, PhD (radiology administrator). Marla Tena MD have personally reviewed and interpreted this examination/study. > Interpreting Provider: Marla Larsen MD on 10/22/2021 10:31 AM Narrative 10/22/2021 10:31 AM CDT PROCEDURE: CT HEAD WO CONTRAST, CT LUMBAR SPINE WO CONTRAST, CT THORACIC SPINE WO CONTRAST, CT CERVICAL SPINE WO CONTRAST, DATE/TIME OF EXAM: 10/22/2021 8:46 AM, LOCATION [facility] INDICATION: W19.XXXA: Fall, initial encounter ADDITIONAL CLINICAL INFORMATION: Ordering Provider Reason For Exam: fall, scalp hematoma over L (accession [id number]), fracture (accession [id number]), fracture (accession [id number]), fall (accession [id number]) Technologist Note: None Additional: None COMPARISON: None. [...] DATE/TIME OF EXAM: 10/22/2021 8:46 AM, LOCATION [facility] INDICATION: W19.XXXA: Fall, initial encounter ADDITIONAL CLINICAL INFORMATION: Ordering Provider Reason For Exam: fall, scalp hematoma over L(accession [id number]), fracture (accession [id number]), fracture ([id number]), fall (accession [id number]) Technologist Note: None Additional: None COMPARISON: None. [...] dictated by Yonas Saunders MD, PhD (radiology administrator). Marla Tena MD have personally reviewed and interpretedthis examination/study. [...] dictated by Yonas Saunders MD, PhD (radiology administrator). Marla Tena MD have personally reviewed and interpreted this examination/study. > Interpreting Provider: Marla Larsen MD on 10/22/2021 10:31 AM Narrative 10/22/2021 10:31 AM CDT PROCEDURE: CT HEAD WO CONTRAST, CT LUMBAR SPINE WO CONTRAST, CT THORACIC SPINE WO CONTRAST, CT CERVICAL SPINE WO CONTRAST, DATE/TIME OF EXAM: 10/22/2021 8:46 AM, LOCATION [facility] INDICATION: W19.XXXA: Fall, initial encounter ADDITIONAL CLINICAL INFORMATION: Ordering Provider Reason For Exam: fall, scalp hematoma over L (accession [id number]), fracture (accession [id number]), fracture (accession [id number]), fall (accession [id number]) Technologist Note: None Additional: None COMPARISON: None. [...] DATE/TIME OF EXAM: 10/22/2021 8:46 AM, LOCATION [facility] INDICATION: W19.XXXA: Fall, initial encounter ADDITIONAL CLINICAL INFORMATION: Ordering Provider Reason For Exam: fall, scalp hematoma over L(accession [id number]), fracture (accession [id number]), fracture ([id number]), fall (accession [id number]) Technologist Note: None Additional: None COMPARISON: None. [...] dictated by Yonas Saunders MD, PhD (radiology administrator). I, Marla Larsen MD have personally reviewed and interpretedthis examination/study. > Interpreting Provider: Marla Larsen MD on 10/22/2021 10:31 AM Alex Upton MD CT ORDERABLES * Laceration Repair (07/04/2021 7:56 PM CDT) Narrative Rebecca Johnson MD - 07/04/2021 7:56 PM CDT Rebecca Johnson MD 07/04/2021 8:54 PM Laceration Repair Date/Time: 07/04/2021 7:56 PM Performed by: Yonas Morales MD Authorized by: Rebecca Johnson MD Consent: Consent obtained: Verbal Consent given by: Patient Risks discussed: Infection and need for additional repair Anesthesia: Anesthesia method: None Laceration details: Location: left AC. Length (cm): 0.1 (pinpoint) Exploration: Limited defect created (wound extended): no Hemostasis achieved with: Direct pressure Contaminated: no Treatment: Debridement: None Undermining: None Skin repair: Repair method: Tissue adhesive Approximation: Approximation: Close Repair type: Repair type: Simple Post-procedure details: Dressing: Open (no dressing) Procedure completion: Tolerated well, no immediate complications Comments: Small pinpoint laceration over L AC fistula. [...] 01/09/2021 12:16 PM CDT Shakeel Porras MD 01/09/2021 12:17 PM VASCULAR AND INTERVENTIONAL RADIOLOGY EXAMINATION: TUNNELED CENTRAL VENOUS CATHETER REMOVAL Date: 01/09/2021 History: Layla Maher is a 75 year old female with history of hypertension, diabetes, and end-stage renal disease who is now successfully dialyzing through her left upper arm brachiocephalic arteriovenous fistula; created by Dr. Weber on 07/04/2020. Removal of the patient's right thoracic tunneled hemodialysis catheter is requested. Diagnosis code: N18.6 Technique: The risks, benefits, and alternatives were discussed and informed consent was obtained. Prior to beginning the procedure, universal protocol was performed to confirm the patient's identity and the planned procedure. Maximum sterile barriers including cap, mask, hand hygiene, sterile gloves, sterile gown, large sterile drape, and 2% chlorhexidine for cutaneous antisepsis were used. The skin adjacent to the right thoracic tunneled catheter entry site was sterilely prepped, draped, and infiltrated with 1% lidocaine. Blunt dissection was then used to free the tunneled hemodialysis catheter cuff. The catheter was removed in its entirety and pressure held at the site to obtain hemostasis. A sterile dressing was applied. The patient tolerated the procedure well and without complications. Findings: The catheter exit site showed no evidence of infection. IMPRESSION: Successful tunneled catheter removal, as described above. Vladislav Porras M.D. Vascular and Interventional Radiology [facility] [phone] CC: Patient's fundraising sale representative: Dr. Jamshid Joe Dialysis unit: [facility] aJmshid Joe MD IR ORDERABLES * POTASSIUM WHOLE BLD (07/04/2020 11:13 AM CDT) Pathologist [facility] Potassium Whole Blood 4.5 3.5 - 5.5 mmol/L 07/04/2020 11:20 AM CDT [facility] Blood WHOLE BLOOD SPECIMEN / Unknown Venipuncture / Unknown 07/04/2020 11:13 AM CDT 07/04/2020 11:16 AM CDT Kirby Weber MD LAB - CHEMISTRY OR DERABLES [facility] [address] [place] [id number], [facility] [phone] * (ABNORMAL) BASIC METABOLIC PANEL (CALCIUM TOTAL) (07/02/2020 12:29 PM CDT) Pathologist [facility] BUN 42(H) 7 - 26 mg/dL 07/02/2020 1:25 PM CDT [facility] Creatinine 5.5(H) 0.6 - 1.2 mg/dL 07/02/2020 1:25 PM CDT [facility] Sodium 143 136 - 145 mmol/L 07/02/2020 1:25 PM T [facility] Potassium 5.1(H) 3.5 - 4.5 mmol/L 07/02/2020 1:25 PM T [facility] Chloride 107 98 - 107 mmol/L 07/02/2020 1:25 PM T [facility] CO2 22 22 - 29 mmol/L 07/02/2020 1:25 PM T [facility] Glucose 106 70 - 115 mg/dL 07/02/2020 1:25 PM T [facility] Calcium 8.8 8.4 - 10.2 mg/dL 07/02/2020 1:25 PM CDT [facility] Anion Gap 19(H) 8 - 18 07/02/2020 1:25 PM CDT [facility] BUN/Creatinine Ratio 8 7 - 23 07/02/2020 1:25 PM CDT [facility] [facility] Osmolality Calculated 307(H) 270 - 300 mOsm/kg 07/02/2020 1:25 PM CDT [facility] eGFR 8(L) >60 mL/min/1.7 3 m2 07/02/2020 1:25 PM CDT [facility] Blood BLOOD SPECIMEN / Unknown Lab Venipuncture / Unknown 07/02/2020 12:29 PM CDT 07/02/2020 12:54 PM CDT Kirby Weber MD LAB - CHEMISTRY OR DERABLES [facility] [address] [place] [id number], [facility] [phone] * VAS BILAT MAPPING FOR HEMODIALYSIS (06/22/2020 2:04 PM CDT) Anatomical Region Laterality Modality Lower Extremity, Upper Extremity Intravascular Ultrasound 06/22/2020 1:14 PM CDT Narrative 06/24/2020 12:12 PM CDT Procedure Note Michael Hernandez MD - 06/24/2020 Kirby Weber MD VASCULAR LAB ORDER VEL * IR CENTRAL LINE INSERT TUNNEL (05/21/2020 11:21 AM PROGRAM DIRECTOR/TRAFFIC DIRECTOR) Only the most recent of2 resultswithin the time period is included. Anatomical Region Laterality Modality Chest, Upper Extremity X-Ray Ang iography Narrative 05/21/2020 11:19 AM PROGRAM DIRECTOR/TRAFFIC DIRECTOR Paulo Lockwood MD 05/21/2020 1:20 PM Layla Maher 1945 [id number] Interventional Nephrology Procedure Date: 05/21/2020 Attending Surgeon and performing the procedure: Paulo Lockwood MD Nursery Worker: Dipak Gregory RT. Medical indication for the procedure: The patient is a 74-year-old with end-stage renal disease. She has only recently started on dialysis. She is currently dialyzing through a left internal jugular vein tunneled dialysis catheter. Referred due to malfunction of the catheter. There very poor flows along the left internal jugular vein tunneled dialysis catheter. EXAM: BP 183/75 Pulse 64 Resp 16 SpO2 99% General appearance: alert, cooperative, no distress Chest: There is no drainage from the exit site. No tenderness along the tunnel. Heart: Regular rate, normal S1 and S2, without murmurs Lungs: breath sounds normal and symmetric; no wheezes Extremities: no cyanosis or edema. Indications for the procedure: 1. End-stage renal disease on dialysis. 2. Malfunction in left internal jugular vein tunneled dialysis catheter. Procedures Performed: 1. ANGIOGRAPHIC PROCEDURES: ULTRASOUND GUIDANCE FOR VASCULAR ACCESS WITH PERMANENT RECORDING;23825 2. CATHETER PLACEMENT: FLUOROSCOPIC GUIDANCE FOR CVC PROCEDURE; 48591 3. CATHETER PLACEMENT: INSERTION OF TUNNELED CENTRALLY INSERTED CVC; AGE 5 OR OLDER; 88355 4. CATHETER PLACEMENT: REMOVAL OF TUNNELED CENTRALLY INSERTED CVC; 94030 5. SEDATION CODES: SEDATION - MODERATE INITIAL; 68191 Findings: 1. The right internal jugular vein is patent and compressible under ultrasound color Doppler. 2. The right internal jugular vein was cannulated with a 21 gauge micropuncture needle using ultrasound guidance for vascular access. A posterior approach was used. The tip of the needle was observed entering the lumen of the vein in real-time and permanent recording was obtained. 3. A 23 cm tip to cuff glide path catheter is observed entering the lumen of the right internal jugular vein at the base of the neck. The tip position in the mid to low right atrium. No kinks observed along entire trajectory of the catheter. A 23 cm tip to cuff glide path catheter is also observed entering the lumen of the left internal jugular vein with the tip just below the superior vena cava right atrial junction. 4. A 23 cm tip to cuff glide path catheter was recovered in its entirety from the left internal jugular vein. 5. The final remote encoding operations supervisor film shows a 23 cm tip to cuff glide path catheter entering the right internal jugular vein at the base of the neck. The tip position in the mid to low right atrium. No kinks observed along entire trajectory of the catheter. The left tunneled dialysis catheter is no longer present. Description of the procedure: Technique: The risks, benefits, and alternatives were discussed and informed consent was obtained. Prior to beginning the procedure, universal protocol was performed to confirm the patient's identity and the planned procedure. Maximum sterile barriers including cap, mask, hand hygiene, sterile gloves, sterile gown, large sterile drape, sterile gel, sterile ultrasound probe cover, and 2% chlorhexidine for cutaneous antisepsis were used. Prior to the procedure, the right internal jugular vein was evaluated by ultrasound and an image of the patent vessel was recorded in the patient's electronic medical record. The skin over this vein was sterilely prepped, draped, and infiltrated with 1% lidocaine. This vein was then accessed with a 21-gauge needle using real-time ultrasound guidance. A guidewire was passed centrally using fluoroscopic guidance. The intravascular length from the access site to the right atrium was assessed. After infiltrating the skin in the subclavicular region with 1% lidocaine, a short transverse incision was made and the 23 cm tip to cuff glide path catheter was tunneled to the internal jugular vein access site and inserted through a peel-away sheath. The peel-away sheath was then removed. Catheter evaluation demonstrated excellent bidirectional flow. The catheter was flushed with heparin and sutured in place using 2-0 Prolene. The incision in the lower neck was closed using Exofin skin glue and once dry we applied a Steri-Strip. Sterile dressings were applied. Moderate sedation was ordered by nv and administer intravenously and monitored by the procedure nurse as an independent observer who was present throughout the procedure. The following parameters were monitored: Oxygen saturation, heart rate, blood pressure, End Tidal CO2, and response to care. Intra-service sedation start time was 10:52 a.m. and end time was 11:02 a.m.. Total physician intra service sedation time was 10 minutes. Attention was then turned to the removal of the left internal jugular vein tunneled dialysis catheter. The chest, the neck, and the catheter were prepared with chlorhexidine. The area was draped under sterile conditions. The cuff was identified by palpation. The exit site and tunnel track up to the cuff were infiltrated with 1 percent lidocaine. The cuff was then released using blunt dissection and the catheter pulled. A 23 cm tip to cuff glide path catheter was recovered in its entirety and intact. Pressure was applied to the left internal jugular vein venotomy at the base of the neck for 5 min and hemostasis obtained. Versed IV: 1 mg Versed wasted: 1 mg Fentanyl IV: 50 mcg Fentanyl wasted: 50 mcg Fluoroscopy time: 0.55 min. Absorbed patient dose: 9.88 mGy. COMPLICATIONS: NONE. RECOMMENDATIONS: 1. May access catheter for dialysis immediately. 2. Follow-up as needed. 3. The patient is to be schedule with Dr. Rafita Bartlett MD for the construction of an AV access. Paulo Lockwood MD 05/21/2020 11:19 AM [facility] [phone] Jamshid Joe MD [facility] Jamshid Joe MD IR ORDERABLES * IR: OXYGEN (02/13/2020 1:14 PM PROGRAM DIRECTOR/TRAFFIC DIRECTOR) Narrative Paulo Lockwood MD - 02/13/2020 1:14 PM PROGRAM DIRECTOR/TRAFFIC DIRECTOR Paulo Lockwood MD 02/13/2020 1:23 PM Layla Mahre 1945 [id number] Interventional Nephrology Procedure Date: 02/13/2020 Attending Surgeon and performing the procedure: Paulo Lockwood MD Medical indication for the procedure: The patient is a 74-year-old woman with end-stage renal disease status post placement of a peritoneal dialysis catheter. Patient referred for evaluation of the catheter due to malfunction. Intention is to performed PD graft. EXAM: There were no vitals taken for this visit. General appearance: alert, cooperative, no distress Heart: Regular rate, normal S1 and S2, without murmurs Lungs: breath sounds normal and symmetric; no wheezes Abdomen: PD catheter without exit site erythema or drainage. Abdomen soft benign bowel sounds present. Extremities: no cyanosis or edema. Indications for the procedure: 1. Peritoneal dialysis catheter dysfunction [T85.611A] Procedures Performed: 1. PERITONEAL DIALYSIS CATHETER PLACEMENT: INJECTION OF AIR/CONTRAST OF PERITONEAL CAVITY; 20319; 58901 Findings: 1. Contrast injection into the peritoneal cavity confirmed that the PD catheter is in the floor of the pelvis. No kinks observed. The prostate is completely away from the omentum. Description of the procedure: After informed consent was obtained Layla Maher was taken to the angiography suite and placed on the fluoroscopy table in the supine position. Prior to beginning the procedure, universal protocol was performed to confirm the patient's identity and the planned procedure. Maximum sterile barriers including cap, mask, hand hygiene, sterile gloves, sterile gown, large sterile drape, sterile gel, sterile ultrasound probe cover, and 2% chlorhexidine for cutaneous antisepsis were used. The iodinated cap from the transfer set was removed, and the transfer set was unlocked. No drainage was obtained. A and flush was met with resistance. The transfer set was removed. As soon as the transfer set was removed initially clear fluid was drained. 200 mL of saline were flushed and 200 mL drain back. 5 cc of contrast were infused to obtain images and confirm position of the catheter. I did several 50 cc flushes until clear fluid was observed. An additional 200 cc of saline solution were infused into the peritoneum. The catheter was then locked with 5000 units heparin. The following parameters were monitored: Oxygen saturation, heart rate, blood pressure, End Tidal CO2, and response to care. The patient tolerated the procedure well. IP Contrast: 5 mL of Isovue 300. Fluoroscopy time: 0.5 min. Absorbed patient dose: 14.93 mGy. COMPLICATIONS: No. IMPRESSION: A peritoneal dialysis catheter is present. The intraperitoneal curled tip is position in the floor of the pelvis along the midline. No kinks observed along entire trajectory of the catheter. RECOMMENDATIONS: 1. Patient can start peritoneal dialysis if needed. 2. Follow-up as needed. Paulo Lockwood MD 02/13/2020 1:14 PM [facility] [phone] Rafita Powers MD [facility] dialysis Paulo Lockwood MD RESPIRATORY THERA PY ORDERABLES * FL PERITONEUM (02/13/2020 12:05 PM PROGRAM DIRECTOR/TRAFFIC DIRECTOR) Anatomical Region Laterality Modality Abdomen X-Ray Angiograph y Narrative 02/13/2020 1:14 PM PROGRAM DIRECTOR/TRAFFIC DIRECTOR Paulo Lockwood MD 02/13/2020 1:23 PM Layla Maher 1945 [id number] Interventional Nephrology Procedure Date: 02/13/2020 Attending Surgeon and performing the procedure: Paulo Lockwood MD Medical indication for the procedure: The patient is a 74-year-old woman with end-stage renal disease status post placement of a peritoneal dialysis catheter. Patient referred for evaluation of the catheter due to malfunction. Intention is to performed PD graft. EXAM: There were no vitals taken for this visit. General appearance: alert, cooperative, no distress Heart: Regular rate, normal S1 and S2, without murmurs Lungs: breath sounds normal and symmetric; no wheezes Abdomen: PD catheter without exit site erythema or drainage. Abdomen soft benign bowel sounds present. Extremities: no cyanosis or edema. Indications for the procedure: 1. Peritoneal dialysis catheter dysfunction [T85.611A] Procedures Performed: 1. PERITONEAL DIALYSIS CATHETER PLACEMENT: INJECTION OF AIR/CONTRAST OF PERITONEAL CAVITY; 50990; 38256 Findings: 1. Contrast injection into the peritoneal cavity confirmed that the PD catheter is in the floor of the pelvis. No kinks observed. The prostate is completely away from the omentum. Description of the procedure: After informed consent was obtained Layla Maher was taken to the angiography suite and placed on the fluoroscopy table in the supine position. Prior to beginning the procedure, universal protocol was performed to confirm the patient's identity and the planned procedure. Maximum sterile barriers including cap, mask, hand hygiene, sterile gloves, sterile gown, large sterile drape, sterile gel, sterile ultrasound probe cover, and 2% chlorhexidine for cutaneous antisepsis were used. The iodinated cap from the transfer set was removed, and the transfer set was unlocked. No drainage was obtained. A and flush was met with resistance. The transfer set was removed. As soon as the transfer set was removed initially clear fluid was drained. 200 mL of saline were flushed and 200 mL drain back. 5 cc of contrast were infused to obtain images and confirm position of the catheter. I did several 50 cc flushes until clear fluid was observed. An additional 200 cc of saline solution were infused into the peritoneum. The catheter was then locked with 5000 units heparin. The following parameters were monitored: Oxygen saturation, heart rate, blood pressure, End Tidal CO2, and response to care. The patient tolerated the procedure well. IP Contrast: 5 mL of Isovue 300. Fluoroscopy time: 0.5 min. Absorbed patient dose: 14.93 mGy. COMPLICATIONS: No. IMPRESSION: A peritoneal dialysis catheter is present. The intraperitoneal curled tip is position in the floor of the pelvis along the midline. No kinks observed along entire trajectory of the catheter. RECOMMENDATIONS: 1. Patient can start peritoneal dialysis if needed. 2. Follow-up as needed. Paulo Lockwood MD 02/13/2020 1:14 PM [facility] VAC [phone] Rafita Powers MD [facility] home dialysis Jamshid Joe MD FLUOROSCOPY ORDERABL ES Care Teams Television Station Manager Relationship Specialty Start Date End Date Justen Singer MD [address] [address] PCP - General 02/14/20
--- OUTSIDE RECORDS SUMMARY | 2024-05-30 09:19 | XMS_ITS | Clinical Summary ---
Author Organization [facility] Address [address] [place] [address] Care Team Providers Care Drum Tender Name Role Phone Justen Singer MD Primary Care Provider + Source Comments [facility],non-owned Affiliates and Associated Physician Practices is amultiple site organization consisting of ambulatory clinics and hospital sitesin [place], [place]. This disclosure is being madepursuant to the Care Everywhere program and may not contain all information available regarding this patient. Last updated 17.[facility] Allergies Active Allergy Reactions Criticality Noted Date [...] HTN (hypertension) 07/26/2022 Posterior reversible encephalopathy syndrome (SD ES) 07/26/2022 Unresponsive 07/25/2022 Acute encephalopathy 07/25/2022 [...] (AF LURIA, FLUZONE TRIVALENT; 6MO+) (IIV3) 01/06/2019 [facility] primary Monoval ent 12+ yr 0.3ml 10/26/2021(Deferred: [...] Comments BONE DENSITY TESTING 1945 MEDICARE AWV 12 MONTHS 1945 HEPATITIS C SCREENING 05/25/1963 [...] complete this topic MENINGOCOCCAL (Group B) VACCINE SHARED DECISION-MAKING Aged Out No longer eligible based on patient's age to complete this topic MENINGOCOCCAL GROUPS A/C/Y/W VACCINE Aged Out No longer eligible based on patient's age to complete this topic Procedures Procedure Name Priority Date/Time Associated Diagnosis Comments HEMOGLOBIN A1C Routine 07/26/2022 4:40 AM CDT from Last 3 Months or Most Recently Relevant to Health Maintenance Results * (ABNORMAL) HEMOGLOBIN A1C (07/26/2022 4:40 AM CDT) Hemoglobin A1c 6.1(H) <=5.6 % 07/27/2022 9:53 AM CDT [facility] Estimated Average Glucose 128 mg/dL 07/27/2022 9:53 AM CDT [facility] Comment: HbA1c Interpretation: Normal : < 5.7% Pre-diabetes: 5.7-6.4% Diabetes: Equal to or greater than 6.5% Test results diagnostic of diabetes should be repeated for confirmation. Treatment target values recommended by ADA and other clinical organizations should be used to evaluate metabolic control in patients. Reference: [place] [employer], Standards of Care in Diabetes -2020 In patients 70 years and older consider HbA1c target range of 7.0-7.5% (Reference: Rivera A, et kathya. JAMDA. 2012) The [place] assay for the measurement of HbA1c is a National Glycohemoglobin Standardization Program (NGSP) certified method. Blood BLOOD SPECIMEN / Unknown Venipuncture / Unknown 07/26/2022 4:40 AM CDT 07/26/2022 4:49 AM CDT Sree Wade MD LAB - CHEMISTRY NELLI PATEL [facility] Organization Address City/State/ZIP Co de Phone Number [facility] [address] [place] [address], [facility] [phone] from Last 3 Months or Most Recently Relevant to Health Maintenance Advance Directives Documents on File Type Date Recorded Patient Visitor Services Specialist Expl anation Adv Directive/Living Will/POA 08/15/2022 11:36 [...] 3:50 PM 10/30/2021 11:48 AM Care Teams Drum Tender Relationship Specialty Start Date End Date Justen Singer MD [address] [address] PCP - General 02/14/20
[2024-05-30 09:24] LABS: Alanine Aminotransferase 17 U/L (6-35); Albumin Level 3.9 g/dL (3.5-5.1); Alkaline Phosphatase 134 U/L (38-126); Anion Gap 19 mmol/L (4-12); Aspartate Amino Transferase 17 U/L (14-36); Bilirubin,Total 0.5 mg/dL (0.2-1.3); Blood Urea Nitrogen 49 mg/dL (7-17); Calcium 8.3 mg/dL (8.4-10.2); Carbon Dioxide 22 mmol/L (22-30); Chloride 101 mmol/L (98-107); Estimated CRCL calculation 5 ml/min; Estimated Glomerular Filt Rate 5; Glucose 211 mg/dL (65-110); Lipase 177 U/L (23-300); Potassium 3.3 mmol/L (3.4-5.0); Sodium 142 mmol/L (137-145)
--- NOTE | 2024-05-30 09:31 | ED_ITS ---
HPI - General Adult General Chief complaint: Nausea/Vomiting/Diarrhea Stated complaint: diarrhea Time Seen by Provider: 05/30/24 08:27 History of Present Illness HPI narrative: Patient is a 79-year-old female who presents ER with diarrhea. Ongoing for 3-4 days. [facility] ran out of her loperamide and so she has developed diarrhea. She has not called anybody bring her the same [id number] medication. Loss she came here today to be evaluated. She feels slightly dehydrated. No blood in her stool. No abdominal pain outside of the cramping that occurs before having diarrhea. Related Data Home Medications ?Medication ?Instructions ?Recorded ?Confirmed ?Last Taken ?Type acetaminophen 325 mg capsule 650 mg PO QID PRN pain 03/11/24 04/01/24 Unknown History bisacodyl 10 mg rectal suppository 10 mg RECTAL DAILY PRN constipation 03/11/24 04/01/24 Unknown History ergocalciferol (vitamin D2) 1,250 1,250 mcg PO WEEKLY 03/11/24 04/01/24 03/09/24 History mcg (50,000 unit) capsule buspirone 5 mg tablet 5 mg PO BID 04/01/24 04/01/24 Unknown History cholestyramine-aspartame 4 gram 1 ea PO TID 04/01/24 04/01/24 Unknown History oral powder for susp in a packet (Cholestyramine Light) clobetasol 0.05 % topical cream 1 applic topical BID 04/01/24 04/01/24 Unknown History magnesium citrate (Citrate of 296 ml PO DAILY PRN constipation 04/01/24 04/01/24 Unknown History Magnesia oral) magnesium hydroxide 400 mg/5 mL 30 ml PO DAILY PRN constipation 04/01/24 04/01/24 Unknown History oral suspension (Bo Milk of Magnesia) Allergies Allergy/AdvReac Type Severity Reaction Status Date / Time cortisone Allergy Intermediate Dyspnea / Verified 05/30/24 08:33 SOB Penicillins Allergy Intermediate Dyspnea / Verified 05/30/24 08:33 SOB ceftriaxone (From Rocephin) Allergy Difficulty Verified 05/30/24 08:33 Breathing Review of Systems 2 Review of Systems: All systems reviewed & are unremarkable except as noted in HPI and below Constitutional: Constitutional: Reports no additional constitutional complaints Cardiovascular: Cardiovascular: Reports no additional cardiovascular complaints Respiratory: Respiratory: Reports no additional respiratory complaints Gastrointestinal: Gastrointestinal: Reports no additional gastrointestinal complaints [facility] Past Medical History Medical History Diastolic dysfunction Echocardiogram October 2022: EF greater than 70% mildly increased left ventricular wall thickness, grade 1 diastolic dysfunction, patent foramen ovale visualized on agitated saline mild mitral valve regurgitation, mild tricuspid valve regurgitation mild pulmonary hypertension with RVSP of 37 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 COVID-19 virus infection Renal osteodystrophy Erythropoietin deficiency anemia End-stage renal disease on hemodialysis Thursday Normal colonoscopy (08/2019) Tushar (1991) Gastroesophageal reflux disease Restless leg syndrome Renal cell carcinoma (2004) Obstructive sleep apnea No longer using CPAP after 40 lb weight loss. Coronary artery disease History of stent x3. Anemia of chronic disease Pericardial effusion (01/2020) Small pericardial effusion on echocardiogram, felt to be related to uremia. Hypothyroidism Peripheral vascular disease Crohn's disease History of kidney stones Peritonitis (01/2020) Surgical History Surgical History Amputation toe Left 2nd toe. History of complete ray amputation of second toe of left foot History of complete ray amputation of second toe of right foot History of cholecystectomy History of appendectomy History of foot surgery Repair of left foot fracture with pinning. History of partial nephrectomy (2004) Left partial nephrectomy for kidney cancer. History of tonsillectomy History of bilateral carpal tunnel release History of hysterectomy (1976) With cystocele and rectocele repairs. History of cardiac catheterization With stent x3. History of cystoscopy With ureteral stents for kidney stones. History of colonoscopy Family History Family History Father Renal cell carcinoma Acute myocardial infarction Cerebrovascular accident Colon polyp Heart disease Hypertension Mother Lung cancer Acute myocardial infarction Cerebrovascular accident Depression Heart disease Hypertension Son Asthma Social History Social History Social History: Patient is retired. 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 She had 1 son who at 50 years old heart attack. She has a 2nd son who is still living and he was her surrogate decision maker. To smoke 1 pack of cigarettes per day for about 30 years. She quit smoking in 1995. She denies any alcohol use or illicit substance use. She is living in [facility]. Surrogate medical decision maker: Dong Maher, son. Code status: DNR/DNI Smoking packs per day: 0.5 Smoking cigarettes per day: 10.0 Years smoked: 10 Smoking pack-years: 5.00 Smoking status: Former smoker Tobacco type: cigarettes Second hand tobacco smoke exposure: No Smoking end date: 03/16/93 Alcohol intake: never Substance use: never Do You Feel Safe in your Home?: Yes Lack of Transportation: No Lack of Food: Never True Current Housing: I Have Housing Concerned About Future Housing: No Difficulty Paying Gas/Electric Bills: No Difficulty Paying for Meds: No Currently Unemployed: No Education: High School Diploma/GED Difficulty w/ Childcare or Family Care: No Living arrangements: alone Additional living arrangements comments: , lives in [place]. 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 Spiritual care concerns: No Agree to blood products: Yes Exam 2 Narrative: GENERAL: Well-appearing, well-nourished, and in no acute distress. HEAD: Normocephalic, atraumatic. ENT: Mucous membranes moist. CHEST: Clear to auscultation. No respiratory distress. HEART: Regular rate and rhythm. Normal peripheral pulses. ABDOMEN: Soft, nontender, nondistended. EXTREMITIES: Normal range of motion. No edema. SKIN: Warm, dry, no rash. NEURO: Alert and oriented x3. PSYCH: Normal mood and affect. Course Course Emergency Course: Resting comfortably. Given loperamide. Also received 500 mL IV fluid. Discharge home. Patient will reschedule her dialysis that she was due for today. Vital Signs Vital signs: Vital Signs Temperature 97.6 F 05/30/24 08:24 Pulse Rate 87 05/30/24 08:24 Respiratory Rate 18 05/30/24 08:24 Blood Pressure 145/60 H 05/30/24 08:24 Pulse Oximetry 96 05/30/24 08:24 Oxygen Delivery Room Air 05/30/24 08:24 Temperature 97.6 F 05/30/24 08:24 Pulse Rate 87 05/30/24 08:24 Respiratory Rate 18 05/30/24 08:24 Blood Pressure 145/60 H 05/30/24 08:24 Pulse Oximetry 96 05/30/24 08:24 Oxygen Delivery Room Air 05/30/24 08:24 Medical Decision Making Vital Signs Vital Signs: Vital Signs Temperature 97.6 F 05/30/24 08:24 Pulse Rate 87 05/30/24 08:24 Respiratory Rate 18 05/30/24 08:24 Blood Pressure 145/60 H 05/30/24 08:24 Pulse Oximetry 96 05/30/24 08:24 Oxygen Delivery Room Air 05/30/24 08:24 Temperature 97.6 F 05/30/24 08:24 Pulse Rate 87 05/30/24 08:24 Respiratory Rate 18 05/30/24 08:24 Blood Pressure 145/60 H 05/30/24 08:24 Pulse Oximetry 96 05/30/24 08:24 Oxygen Delivery Room Air 05/30/24 08:24 Lab Data 05/30/24 09:08 05/30/24 09:08 Labs: Lab Results 05/30/24 Range/Units 09:08 WBC 9.7 (4.5-10.0) K/mm3 RBC 3.69 L (4.2-5.4) M/mm3 Hgb 11.5 L (12.0-15.0) g/dL Hct 34.9 L (37.0-47.0) % MCV 94.6 (80-100) fl MCH 31.2 (26-34) pg MCHC 33.0 (32-36) g/dl RDW 16.3 H (11.5-14.5) % Plt Count 240 (150-375) k/mm3 MPV 9.1 (7.4-10.4) fl Immature Gran % (Auto) 1.1 H (0-0.5) % Neut % (Auto) 75.7 H (45.5-73.1) % Lymph % (Auto) 11.2 L (18.3-44.2) % [place] % (Auto) 7.5 (2.6-8.5) % Eos % (Auto) 4.3 (0-4.4) % Baso % (Auto) 0.2 (0.2-1.2) % Lymph # (Auto) 1.09 (0.9-3.2) K/mm3 [place] # (Auto) 0.7 H (0.1-0.6) K/mm3 Eos # (Auto) 0.4 H (0-0.3) K/mm3 Baso # (Auto) 0.0 (0.0-0.1) K/mm3 Abs Immat Gran (auto) 0.11 H (0.00-0.031) K/mm3 Absolute Neuts (auto) 7.3 H (1.3-6.7) K/mm3 Absolute Nucleated RBC 0.000 (0.0-0.012) K/mm3 Nucleated RBC % 0.0 (0.0-0.2) % Sodium 142 (137-145) mmol/L Potassium 3.3 L (3.4-5.0) mmol/L Chloride 101 (98-107) mmol/L Carbon Dioxide 22 (22-30) mmol/L Anion Gap 19 H (4-12) mmol/L BUN 49 H D (7-17) mg/dL Creatinine 8.30 H (0.7-1.0) mg/dL Estim Creat Clear Calc 5 ml/min Estimated GFR 5 L (59 - ) Glucose 211 H (65-110) mg/dL Calcium 8.3 L (8.4-10.2) mg/dL Total Bilirubin 0.5 (0.2-1.3) mg/dL AST 17 (14-36) U/L ALT 17 (6-35) U/L Alkaline Phosphatase 134 H (38-126) U/L Total Protein 7.0 (6.3-8.2) g/dL Albumin 3.9 (3.5-5.1) g/dL Lipase 177 (23-300) U/L Discharge Plan Discharge Clinical Impression: Diarrhea Patient Disposition: Home, Self-Care Condition: Stable Instructions: Acute Diarrhea (ED) Additional Instructions: Please drink plenty of fluids at home. Return to the emergency department if you develop high fevers, have persistent severe abdominal pain, or have bloody stools or vomit, as these could be signs of a more serious medical emergency. Return to the emergency department if you are unable to keep down liquids because of severe nausea/vomiting. Patient Language: Greenlandic Prescriptions: New loperamide 2 mg tablet 2 mg PO QID PRN (Reason: loose stool) Qty: 20 0RF No Action dicyclomine 20 mg tablet 20 mg PO TID Qty: 90 5RF loperamide 2 mg tablet 4 mg PO QID PRN (Reason: loose stool) Qty: 100 5RF Cholestyramine Light 4 gram powder 4 g PO TID Qty: 239.4 5RF Rx Instructions: administer w/meal; avoid other meds within 1hr before or 4-6hr after dose escitalopram oxalate 10 mg tablet 10 mg PO DAILY Qty: 30 5RF acetaminophen 325 mg capsule 650 mg PO QID PRN (Reason: pain) bisacodyl 10 mg suppository 10 mg RECTAL DAILY PRN (Reason: constipation) ergocalciferol (vitamin D2) 1,250 mcg (50,000 unit) capsule 1,250 mcg PO WEEKLY Patient Comments: On Wednesdays cyclobenzaprine 5 mg tablet 5 mg PO TID PRN (Reason: muscle spasm) Qty: 10 0RF magnesium citrate [Citrate of Magnesia] Solution 296 ml PO DAILY PRN (Reason: constipation) magnesium hydroxide [Bo Milk of Magnesia] 400 mg/5 mL suspension 30 ml PO DAILY PRN (Reason: constipation) buspirone 5 mg tablet 5 mg PO BID clobetasol 0.05 % cream 1 applic TOPICAL BID cholestyramine-aspartame [Cholestyramine Light] 4 gram powder in packet 1 ea PO TID atorvastatin 40 mg tablet 40 mg PO DAILY Qty: 90 2RF bupropion HCl 150 mg tablet extended release 24 hr 150 mg PO QAM Qty: 90 1RF diclofenac sodium [Voltaren Arthritis Pain] 1 % gel 2 g topical BID PRN (Reason: knee pain) Qty: 200 5RF Rx Instructions: apply to single elbow, wrist or hand; for hand includes palm/fingers/back of hand levetiracetam 500 mg tablet 500 mg PO Q12H Qty: 180 1RF mirtazapine 30 mg tablet 30 mg PO QHS Qty: 90 1RF pantoprazole 40 mg tablet,delayed release (DR/EC) 40 mg PO QAM Qty: 90 1RF ropinirole 0.5 mg tablet 0.5 mg PO BID Qty: 180 1RF hydrocodone-acetaminophen 5-325 mg tablet 1 tablet PO QID PRN (Reason: pain) Qty: 120 0RF Follow-up/Referrals: Justen Singer MD [Primary Care Provider] -
== END 2024-05-30 11:14 ==
PROVIDERS: Emergency Provider Emergency Medicine; PCP Family Medicine Adolescent Medicine
DX: R19.7 Diarrhea, unspecified (principal); E11.22 Type 2 diabetes mellitus with diabetic chronic kidney disease; N18.6 End stage renal disease; Z99.2 Dependence on renal dialysis; D63.1 Anemia in chronic kidney disease; N25.0 Renal osteodystrophy; E11.43 Type 2 diabetes mellitus with diabetic autonomic (poly)neuropathy; E11.51 Type 2 diabetes mellitus with diabetic peripheral angiopathy without gangrene; I73.9 Peripheral vascular disease, unspecified; I25.10 Atherosclerotic heart disease of native coronary artery without angina pectoris; E03.9 Hypothyroidism, unspecified; G25.81 Restless legs syndrome; K21.9 Gastro-esophageal reflux disease without esophagitis; K50.90 Crohn's disease, unspecified, without complications; Z66 Do not resuscitate; Z85.528 Personal history of other malignant neoplasm of kidney; Z86.16 Personal history of COVID-19; Z87.891 Personal history of nicotine dependence; Z89.422 Acquired absence of other left toe(s); Z89.421 Acquired absence of other right toe(s); Z90.5 Acquired absence of kidney; Z90.49 Acquired absence of other specified parts of digestive tract; Z90.710 Acquired absence of both cervix and uterus; Z79.899 Other long term (current) drug therapy
CPT/HCPCS: 36415; 80053; 83690; 85025; 96360; 99283; A9270; J7030

== ENCOUNTER 2024-06-29 20:26 | Emergency (ER) | payer MEDICARE, SELFPAY ==
--- NOTE | ~2024-06-29 | CT_ITS ---
CT abdomen pelvis wo con Ordering provider: Katie Rao MD History: 79 years Female with . abd pain . Comparison: February 17, 2024 Technique: CT abdomen and pelvis without IV and without oral contrast. Automated exposure control and iterative reconstruction technique were employed. The dose-length product was 806.23 mGy-cm. Findings: VISUALIZED LOWER CHEST: Focal density in the right upper lobe partly imaged. Nodule in the right lowe r lobe unchanged from previous examination. Small nodule is seen in the right lower lobe posteriorly unchanged. Multiple patchy opacities suggestive of focal pneumonia versus atelectatic changes. Underl miguel emphysematous changes. UPPER ABDOMINAL ORGANS: Liver: Hepatomegaly. Gallbladder: Status post cholecystectomy. Prominent CBD measuring 1.3 cm. Spleen: Normal. Stomach/duodenum: Sliding hiatus hernia. Pancreas: Atrophic pancreas with prominent duct. Follow-up advised. Adrenals: Normal. Kidneys: Atrophic both kidneys. PELVIC ORGANS: The bladder is underfilled. BOWEL AND MESENTERY: Colon: No evidence of diverticulitis. The appendix is not demonstrated.. Small Bowel: Normal. No obstruction. Peritoneum/mesentery: No free air or free fluid. No mesenteric lymphadenopathy. RETROPERITONEUM: Mild atheromatous disease of the abdominal aorta. No retroperitoneal lymphadenopat hy. MUSCULOSKELETAL: Superficial soft tissues: Edema in the subcutaneous tissues is seen in the pelvis. The superficial so ft tissues are normal. Bones: Age appropriate degenerative changes of the spine. Healed fracture in the right inferior pubic ramus. Bilateral sacroiliitis. IMPRESSION: 1. Multiple nodules in the lung bases which may be metastatic. 2. Hepatomegaly. 3. Atrophic kidneys. 4. Sliding hiatus hernia. 5. No evidence of appendicitis, diverticulitis or intestinal obstruction Reviewed, dictated and finalized at location A.
[2024-06-29 20:32] VITALS: BP 152/65; PULSE 82; RESP 18; TEMP 36.6; O2SAT 97
--- NOTE | 2024-06-29 20:35 | ECG_ITS ---
Test Date: 2024-06-29 20:48:07 Measurements Intervals [place]ck[place] Rate: 84 P: -7 WA: 225 QRS: -59 QRSD: 90 T: 55 QT: 412 QTc: 489 Interpretive Statements SINUS RHYTHM WITH FIRST DEGREE AV BLOCK LEFT ANTERIOR FASCICULAR BLOCK BASELINE ARTIFACT- I, II, AVR ABNORMAL ECG Compared to ECG 03/14/2024 01:37:44 HEART RATE HAS DECREASED First degree AV block now present Electronically Signed On 06-29-2024 21:46:44 CDT by Brennen Keenan D.O.
--- OUTSIDE RECORDS SUMMARY | 2024-06-29 20:48 | XMS_ITS | Clinical Summary ---
Author Organization [facility] Address [address], [place] [address] Phone Care Team Providers Care Insulation Blower Name Role Phone Justen Bonds MD Primary Care Provider Allergies Active Allergy Reactions Criticality Noted Date Comments Cortisone Shortness of breath High 01/12/2019 Penicillins Shortness of breath High 01/12/2019 Other reaction(s): Unknown Prednisone 01/12/2019 Other reaction(s): Unknown Medications Multiple Vitamins-Minera ls (MULTIVITAL-M PO) Take 1 tablet by mouth Active allopurinol (ZYLOPRIM) 300 MG tablet Take 1 tablet by mouth 07/20/2008 Active aspirin 81 MG tablet daily Active cyanocobalamin (V-R VITAMIN B-12) 500 MCG tablet [...] sertraline (ZOLOFT) 100 MG tablet 05/30/2019 Active oxyCODONE-aceta minophen (PERCOCET) 7.5-325 MG per tablet 04/20/2019 Active [...] Description: Hyperlipidemia 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 Immunizations Immunization Administration Dates Next Due Influenza (IM) Preservative [...] = 0.6 oz pur e alcohol) Comments Unknown Sex and Gender Information Value Date Recorded Sex Assigned at Not on file Legal Sex Female 11:53 AM MDT Gender Identity Not on file Sexual Orientation [...] Medium Risk (1 of 4 - PCV) 05/30/1995 Influenza Vaccine (Season Ended) 2024 01/07/20 19, 03/26/2012 Insurance MEDICARE [facility] [place] [facility] PM INTERFACED INSURANCE Care Teams Insulation Blower Relationship Specialty Start Date End Date Justen Bonds MD [address] [address] PCP - General Family Medicine 01/10/19
--- OUTSIDE RECORDS SUMMARY | 2024-06-29 20:48 | XMS_ITS | Encounter Summary ---
Author Organization [facility] Address [address] [place] [address] Phone Care Team Providers Care Supervisor Glycerin Name Role Phone Justen Singer MD Primary Care Prov ider Justen Singer MD Primary Care Prov ider Lita Elizabeth RN Unavailable Jamshid Joe MD Unavailable [phone] Alex Edgar MD Unavailable [phone] Encounter Details Date Type Department Care Team (Late st Contact Info) Description 12/15/2019 Telephone [facility] Cardiology [address] [facility] Advanced Medicine 8th [place] [address] [place] [address] Alex Edgar MD [address] [facility] [address] [place] [address] Social History Tobacco Use Types Packs/Day Years Used Date Smoking Tobacco: Former Smokeless Tobacco: Never Comments Unknown Sex and Gender Information Value Date Recorded Sex Assigned at Not on file Legal Sex Female 6:58 AM [employer] Gender Identity Not on file Sexual Orientation Not on file documented as of this encounter Plan of Treatment Not on file documented as of this encounter Visit Diagnoses Not on filedocumented in this encounter Additional Health Concerns Infection Onset Date Last Indicated Resolved Time COVID19 03/19/2020 03/19/202004/02/2020 3:07 AM [employer] documented as of this encounter Care Teams Supervisor Glycerin Relationship Specialty Start Date End Date Justen Singer MD [address] [place] [address] PCP - General 03/27/17 08/26/20 Justen Singer MD [address] [place] [address] PCP - General Family Medicine 08/27/20 Lita Elizabeth, DINORAH [address] [id number] Registered Nurse Cargo Checker 08/27/20 Jamshid Joe MD [address] [address] Referring Physician Nephrology 10/08/20 Alex Edgar MD [address] [address] Referring Physician Cardiology 10/08/20 documented as of this encounter
--- OUTSIDE RECORDS SUMMARY | 2024-06-29 20:48 | XMS_ITS | Clinical Summary ---
Author Organization [facility] Address [address] [facility] [place] [address] Phone Care Team Providers Care Counselor Marriage And Family Name Role Phone Justen Singer MD Primary Care Provider [phone] Allergies Active Allergy Reactions Criticality Noted Date [...] Comments Blood Pressure 173/60 04/24/2020 9:15 AM GRINDER LAP Pulse 59 04/24/2020 6:13 AM GRINDER LAP Temperature 36.6 C (97.8 F) 04/24/2020 6:13 AM GRINDER LAP Respiratory Rate 17 04/24/2020 9:15 AM GRINDER LAP Oxygen Saturation 97% 04/24/2020 9:15 AM GRINDER LAP Inhaled Oxygen Concentration - - Weight 68 kg (150 lb) 04/24/2020 6:13 AM GRINDER LAP Height 160 cm (5' 3 ) 04/24/2020 6:13 AM GRINDER LAP Body Mass Index 26.57 04/24/2020 6:13 AM GRINDER LAP Plan of Treatment Health Maintenance Due Date [...] history exists Medical Devices Implanted Type Area Implementation Specialist Device Identifier Shelf Expiration Date Model / Serial / Lot 3 Cardiac Stents Left Renal Stent Explanted Type Area Implementation Specialist Device Identifier Shelf Expiration Date Model / Serial / Lot Cath Pd Howard Curl 2cuff [id number] - [id number] Implanted:Qty : 1 on 01/25/2020 by Rafita Bartlett MD at [facility] Explanted:Qty : 1 on 04/24/2020 by Hawk Angel MD at [facility] Catheter N/A: Abdomen [employer] - COVIDIEN 09/12/2024 [id number] / / [id number] Insurance MEDICARE PART A AND B [facility] SU[facility] Advance Directives For more information, please contact: [phone] * Full Code (Latest Code Status on File) Date Activated Date Inactivated Comments 04/24/2020 7:08 AM 04/24/2020 11:55 AM * Full Code Date Activated Date Inactivated Comments 04/24/2020 5:39 AM 04/24/2020 7:07 AM * Full Code Date Activated Date Inactivated Comments 01/25/2020 5:51 AM 01/26/2020 7:33 PM Care Teams Counselor Marriage And Family Relationship Specialty Start Date End Date Justen Singer MD PCP - General Family Practice 01/25/20
--- OUTSIDE RECORDS SUMMARY | 2024-06-29 20:48 | XMS_ITS | Clinical Summary ---
Author Organization [facility] Address [address] [place] [address] Care Team Providers Care Paid Search Manager Name Role Phone Justen Singer MD Primary Care Prov ider Jamshid Joe MD Unavailable [phone] Alex Edgar MD Unavailable [phone] Allergies Active Allergy Reactions Criticality Noted [...] mcg tablet Take 75 mcg by mouth product demonstrator before breakfast Active Vitamin D2 1,250 mcg [...] 03/26/2012 Surgical History Surgery Date Site/Laterality Comments [place] LAPAROSCOPY SURG PARTIAL NEPHRECTOMY Left Kidney Surgery Laparoscopic Partial Nephrectomy - oncocytoma (Added by TW Conv) APPENDECTOMY Appendectomy - (Added by TW Conv) HYSTERECTOMY Hysterectomy - (Added by TW Conv) FOOT FRACTURE SURGERY Treatment Of Foot Fracture - 2004 (Added by TW Conv) CHOLECYSTECTOMY Cholecystectomy - 2005 (Added by TW Conv) [place] PRQ TRLUML CORONARY STENT W/ANGIO ONE ART/BRNCH [...] TW Conv) Atherosclerotic heart diseas [place] coronary artery without angina pectoris Arteriosclerot ic [...] on file Legal Sex Female 6:58 AM CHILD DEVELOPMENT ASSISTANT Gender Identity Not on file Sexual Orientation Not on file Obstetrics History Last Filed Vital Signs Vital Sign Reading Time Taken Comments Blood Pressure 178/70 05/06/2022 9:26 AM CHILD DEVELOPMENT ASSISTANT Pulse 73 05/06/2022 9:26 AM CHILD DEVELOPMENT ASSISTANT Temperature 36.6 C (97.8 F) 08/26/2021 2:10 PM CDT Respiratory Rate 18 03/19/2020 8:41 PM CHILD DEVELOPMENT ASSISTANT Oxygen Saturation 90% 05/06/2022 9:26 AM CHILD DEVELOPMENT ASSISTANT Inhaled Oxygen Concentration - - Weight 73.9 kg (163 lb) 05/06/2022 9:26 AM CHILD DEVELOPMENT ASSISTANT Height 160 cm (5' 3 ) 05/06/2022 9:26 AM CHILD DEVELOPMENT ASSISTANT Body Mass Index 28.87 05/06/2022 9:26 AM CHILD DEVELOPMENT ASSISTANT Plan of Treatment Health Maintenance Due Date [...] 90 - 130 mL/min/1.7 3 m2 [facility] Comment: Interpretive Data Reference Interval Normal >/= [...] BLOOD ORDERABLES Final Result Performing Organization Address City/[facility]/ZIP Co de Phone Number [facility] [place] [address] * Hepatitis C antibody (11/23/2020 12:05 PM CDT) [facility] Hep C Ab Nonreactive Nonreactive [facility] Comment:Antibodies to HCV no t detected. Does NOT exclude the possibility of recent exposure to HCV. Blood 11/23/2020 12:0 5 PM CDT 11/23/2020 12:20 PM CDT Jani Rose MD LAB MICROBIOLOGY - GENERAL ORDERABLES Edited Result - Final Performing Organization Address [facility] [place] [address] * (ABNORMAL) Hemoglobin A1c (11/23/2020 12:05 PM CDT) [facility] Hgb A1C 6.1(H) 4.0 - 5.6 % [facility] Estimated Average Glucose 128 mg/dL [facility] Comment: The ADA recommends reporting an estimated [...] BLOOD ORDERABLES Final Result Performing Organization Address City/[facility] [place] [address] * (ABNORMAL) Lipid panel (11/23/2020 12:05 PM CDT) [facility] Cholesterol 148 30 - 199 mg/dL [facility] Comment: Interpretive Data Ages < or = [...] revised on 2017. Triglycerides 303(H) <=149 mg/dL [facility] Comment: Interpretive Data Ages < or = [...] revised on 2017. HDL 41 >=40 mg/dL [facility] Comment: Interpretive Data Ages < or = [...] on 2017. LDL, calculated 46 <=129 mg/dL [facility] Comment: Interpretive Data Ages < or = [...] revised on 2017. Non-HDL Cholesterol 107 mg/dL [facility] Comment: Interpretive Data Ages < or = [...] last revised on 2017. Chol/HDL ratio 4 [facility] Blood 11/23/2020 12:0 5 PM CDT 11/23/2020 12:20 PM CDT us Jani Rose MD LAB BLOOD ORDERABLES Final Result [facility] Department [place] [address] from Last 3 Months or Most Recently Relevant to Health Maintenance Insurance MEDICARE [facility] MEDICARE [facility] MEDICARE [facility] [place] Care Teams Paid Search Manager Relationship Specialty Start Date End Date Justen Singer MD [address] [place] [address] PCP - General Family Medicine 08/27/20 Jamshid Joe MD [address] [place] [address] Referring Physician Nephrology 10/08/20 Alex Edgar MD [address] [place] [address] Referring Physician Cardiology 10/08/20
--- OUTSIDE RECORDS SUMMARY | 2024-06-29 20:48 | XMS_ITS | Referral Summary ---
Author Organization [facility] Address [address] [place] [address] Care Team Providers Care Clinical Trial Associate Name Role Phone Justen Singer MD Primary Care Prov ider Jamshid Joe MD Unavailable [phone] Alex Edgar MD Unavailable [phone] Allergies Active Allergy Reactions Criticality Noted [...] mcg tablet Take 75 mcg by mouth customer insight analyst before breakfast Active Vitamin D2 1,250 mcg [...] on file Legal Sex Female 6:58 AM WIRE SPLICER Gender Identity Not on file Sexual Orientation Not on file Last Filed Vital Signs Vital Sign Reading Time Taken Comments Blood Pressure 178/70 05/06/2022 9:26 AM WIRE SPLICER Pulse 73 05/06/2022 9:26 AM WIRE SPLICER Temperature 36.6 C (97.8 F) 08/26/2021 2:10 PM CDT Respiratory Rate 18 03/19/2020 8:41 PM WIRE SPLICER Oxygen Saturation 90% 05/06/2022 9:26 AM WIRE SPLICER Inhaled Oxygen Concentration - - Weight 73.9 kg (163 lb) 05/06/2022 9:26 AM WIRE SPLICER Height 160 cm (5' 3 ) 05/06/2022 9:26 AM WIRE SPLICER Body Mass Index 28.87 05/06/2022 9:26 AM WIRE SPLICER Plan of Treatment Not on file Procedures [...] 8(L) 90 - 130 mL/min/1.7 3 m2 [facility] Comment: Interpretive Data Reference Interval Normal >/= [...] Rose MD LAB BLOOD ORDERABLES Final Result [facility] Department [place] [address] * Hepatitis C antibody (11/23/2020 12:05 PM CDT) Pathologist [facility] Hep C Ab Nonreactive Nonreactive [facility] Comment:Antibodies to HCV no t detected. Does NOT exclude the possibility of recent exposure to HCV. Blood 11/23/2020 12:0 5 PM CDT 11/23/2020 12:20 PM CDT Jani Rose MD LAB MICROBIOLOGY - GENERAL ORDERABLES Edited Result - Final Performing Organization Address [facility] Co de Phone Number [facility] Department [place] [address] * (ABNORMAL) Hemoglobin A1c (11/23/2020 12:05 PM CDT) Hgb A1C 6.1(H) 4.0 - 5.6 % [facility] Estimated Average Glucose 128 mg/dL [facility] Comment: The ADA recommends reporting an estimated [...] BLOOD ORDERABLES Final Result Performing Organization Address [facility] Co de Phone Number [facility] Department [place] [address] * (ABNORMAL) Lipid panel (11/23/2020 12:05 PM CDT) Cholesterol 148 30 - 199 mg/dL [facility] Comment: Interpretive Data Ages < or [...] revised on 2017. Triglycerides 303(H) <=149 mg/dL [facility] Comment: Interpretive Data Ages < or [...] revised on 2017. HDL 41 >=40 mg/dL [facility] Comment: Interpretive Data Ages < or [...] on 2017. LDL, calculated 46 <=129 mg/dL [facility] Comment: Interpretive Data Ages < or [...] revised on 2017. Non-HDL Cholesterol 107 mg/dL [facility] Comment: Interpretive Data Ages < or [...] MD LAB BLOOD ORDERABLES Final Result [facility] [address] [facility] Department [place] [address] from Last 3 Months or Most Recently Relevant to Health Maintenance Insurance MEDICARE [facility] MEDICARE [facility] MEDICARE [facility] Care Teams Clinical Trial Associate Relationship Specialty Start Date End Date Justen Singer MD [address] [place] [address] PCP - General Family Medicine 08/27/20 Jamshid Joe MD [address] [place] [address] Referring Physician Nephrology 10/08/20 Alex Edgar MD [address] [place] [address] Referring Physician Cardiology 10/08/20
--- OUTSIDE RECORDS SUMMARY | 2024-06-29 20:48 | XMS_ITS | Clinical Summary ---
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 This disclosure is being madepursuant to the Care Everywhere program and may not contain all information available regarding this patient. Last updated 17.[facility] Allergies Active Allergy Reactions Criticality Noted Date Comments Cortisone Anaphylaxis High 02/13/2020 Penicillins Anaphylaxis High 02/13/2020 Ceftriaxone Anaphylaxis High 02/28/2022 Medications * Be aware that medications may not be up to date on this document. Alwaysverify current medications with the patient. atorvastatin (Lipitor) 40 MG tablet Take 1 (one) tablet by mouth at bedtime 3 Active pantoprazole EC (Protonix) 40 MG tablet Take 1 (one) tablet by mouth once daily 3 Active lisinopril (Prinivil; Zestril) 40 MG tablet Take 1 (one) tablet by mouth once daily Active acetaminophen (Tylenol) 325 MG tablet Take 2 (two) tablets by mouth every 4 hours as needed Maximum allowable Acetaminophen amount = 4 Grams (4000 mg) / 24 hours. 3 Active aspirin (Aspirin) 81 MG chew tablet Take 1 (one) tablet by mouth once daily 3 Active Sodium Chloride Flush (0.9% NaCl) injection 3 mL by Intracatheter route every 8 hours 3 Active Sodium Chloride Flush (0.9% NaCl) injection 1-10 mL by Intracatheter route as needed (peripheral line flush) 3 Active dextrose 10 % INJ 125 mL by Intravenous route as needed (Bedside Glucose less than 70 mg/dL -If NOT able to eat and/or NPO and with IV Access) 3 Active albumin human 25 % 50 mL by Intravenous route as needed (Can give for soft BP SBP < 90 and DBP < 60 during iHD as needed.) 3 Active vitamin B complex w/ C 60mg & FA 0.8mg (Nephro-Max) 0.8 MG TABS tablet Take 1 (one) tablet by mouth once daily 3 Active epoetin (Epogen; Procrit) 4000 UNIT/ML injection 1 mL by Intravenous route Give in dialysis on Thursday, & Thursday 3 Active levothyroxine (Synthroid) 75 MCG tablet Take 1 (one) tablet by mouth once daily 3 Active levETIRAcetam (Keppra) 500 MG tablet Take 1 (one) tablet by mouth 2 times daily 3 Active melatonin 3 MG tablet Take 1 (one) tablet by mouth at bedtime 3 Active lidocaine (Lidoderm) 5 % patch Apply 1 (one) patch to skin every 24 hours Apply patch to most painful area and remove after 12 hours. May reapply a new patch 12 hours later. 3 Active vitamin D3 (Cholecalcifer ol) 25 MCG (1000 UNITS) tablet Take 2 (two) tablets by mouth once daily 3 Active metoprolol tartrate IR (Lopressor) 50 MG tablet Take 1 (one) tablet by mouth 2 times daily 3 Active amLODIPine (Norvasc) 10 MG tablet Take 1 (one) tablet by mouth once daily 3 Active droNABinol (Marinol) 2.5 MG capsule Take 1 (one) capsule by mouth 2 times daily 3 Active hydrALAZINE (Apresoline) 25 MG tablet Take 1 (one) tablet by mouth 3 times daily 3 Active Sodium Chloride Flush (0.9% NaCl) injection 10-40 mL by Intracatheter route every 8 hours 3 Active Sodium Chloride Flush (0.9% NaCl) injection 10-40 mL by Intravenous route as needed (mid-line flush) 3 Active methyl salicylate-men thol (Anand Dial) ointment Apply to affected area 4 times daily as needed (back pain) 3 Active insulin lispro (HumaLOG;ADMel og) 100 UNIT/ML pen Inject 0 (zero) Units to 7 (seven) Units subcutaneously 3 times daily with meals 3 Active Active Problems Problem Noted Date Diagnosed Date Acute CVA (cerebrovascular accident) 07/27/2022 Seizures 07/26/2022 HTN (hypertension) 07/26/2022 Posterior reversible encephalopathy syndrome (TN ES) 07/26/2022 Unresponsive 07/25/2022 Acute encephalopathy 07/25/2022 Acute respiratory failure with hypoxia 3 ESRD (end stage renal disease) 07/25/2022 Primary hypertension 07/25/2022 SAH (subarachnoid hemorrhage) 10/25/2021 Closed fracture of left tibial plateau 2 Closed fracture of left fibula 10/25/2021 Displaced fracture of right radial styloid process, initial encounter for closed fracture 10/25/2021 Aspiration pneumonia 10/25/2021 Diabetes mellitus 10/25/2021 Fall 10/22/2021 Immunizations Immunization Administration Dates Next Due INFLUENZA VACCINE, TRIV. (AF LURIA, FLUZONE TRIVALENT; 6MO+) (IIV3) 01/06/2019 Covid Animoto primary Monoval ent 12+ yr 0.3ml 10/26/2021(Deferred: [...] money to get more. 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 Gender Identity Not on file Sexual Orientation [...] TESTING 1945 MEDICARE AWV 12 MONTHS 1945 DTAP/TDAP/TD VACCINES (1 - Tdap) 1964 HEPATITIS [...] VACCINE ( season) 2023 01/03/2021, 06/06/2020, 05/15/2020 DEPRESSION SCREENING 03/16/2024 INFLUENZA VACCINE (Season Ended) 2024 11/29/2019, 11/23/2019, 01/06/2019, Additional history exists HIB VACCINE Aged Out No longer eligi [...] 6.1(H) <=5.6 % 07/27/2022 9:53 AM CDT [facility] Estimated Average Glucose 128 mg/dL 07/27/2022 9:53 AM CDT [facility] Comment: HbA1c Interpretation: Normal : < 5.7% Pre-diabetes: 5.7-6.4% Diabetes: Equal to or greater than 6.5% Test results diagnostic of diabetes should be repeated for confirmation. Treatment target values recommended by ADA and other clinical organizations should be used to evaluate metabolic control in patients. Reference: [place] [employer], Standards of Care in [...] CDT Sree Wade MD LAB - CHEMISTRY ORDERABLES Mai escalona Result [facility] [address] [place] [address], [facility] [phone] from Last 3 Months or Most Recently Relevant to Health [place] [address] MEDICARE [facility] MEDICARE MEDICARE Advance Directives Documents on File Type Date Recorded Patient Interactive Producer Expl anation Adv Directive/Living Will/POA 08/15/2022 11:36 [...] 3:50 PM 10/30/2021 11:48 AM Care Teams Crankshaft Straightener Relationship Specialty Start Date End Date Justen Singer MD [address] [address] PCP - General 02/14/20
[2024-06-29 20:56] LABS: Basophils Percent Auto 0.4 % (0.2-1.2); Eosinophils Absolute Auto 0.5 K/mm3 (0-0.3); Eosinophils Percent Auto 6.2 % (0-4.4); Hematocrit 36.4 % (37.0-47.0); Hemoglobin 11.5 g/dL (12.0-15.0); Immature Granulocyte Absolute 0.11 K/mm3 (0.00-0.031); Immature Granulocyte Percent A 1.4 % (0-0.5); Lymphocytes Absolute Auto 1.41 K/mm3 (0.9-3.2); Lymphocytes Percent Auto 18.5 % (18.3-44.2); Mean Corpuscular HGB Conc 31.6 g/dl (32-36); Mean Corpuscular Hemoglobin 30.3 pg (26-34); Mean Corpuscular Volume 95.8 fl (80-100); Mean Platelet Volume 9.2 fl (7.4-10.4); Monocytes Absolute Auto 0.7 K/mm3 (0.1-0.6); Monocytes Percent Auto 8.7 % (2.6-8.5); Neutrophils Absolute Auto 4.9 K/mm3 (1.3-6.7); Neutrophils Percent Auto 64.8 % (45.5-73.1); Platelet Count Result 220 k/mm3 (150-375); Red Cell Distribution Width 14.9 % (11.5-14.5); White Blood Count 7.6 K/mm3 (4.5-10.0)
[2024-06-29 21:07] LABS: Alanine Aminotransferase 19 U/L (6-35); Albumin Level 4.2 g/dL (3.5-5.1); Alkaline Phosphatase 149 U/L (38-126); Anion Gap 13 mmol/L (4-12); Aspartate Amino Transferase 19 U/L (14-36); Bilirubin,Total 0.5 mg/dL (0.2-1.3); Blood Urea Nitrogen 27 mg/dL (7-17); Calcium 8.6 mg/dL (8.4-10.2); Carbon Dioxide 29 mmol/L (22-30); Chloride 97 mmol/L (98-107); Estimated CRCL calculation 10 ml/min; Estimated Glomerular Filt Rate 10; Glucose 198 mg/dL (65-110); Lipase 143 U/L (23-300); Magnesium 1.6 mg/dL (1.6-2.3); Potassium 3.9 mmol/L (3.4-5.0); Sodium 139 mmol/L (137-145)
--- NOTE | 2024-06-29 22:19 | PC.NURSE ---
Pt states she barely makes urine anymore due to her kidney failure. Pt taken to bathroom to try and provide urine sample, attempt was unsuccessful. EDP made aware.
--- NOTE | 2024-06-29 23:46 | ED.GENADULT ---
HPI - General Adult General Chief complaint: Nausea/Vomiting/Diarrhea Stated complaint: diarrhea, abd pain Time Seen by Provider: 06/29/24 20:35 History of Present Illness HPI narrative: Patient is a 79-year-old female who presents the emergency department this evening complaining of nausea, vomiting and diarrhea for the past few days. Patient states that this is not very unusual for her as she has a history of Crohn's disease. She is complaining of mid abdominal burning which she felt earlier in the day, however, patient currently states that that has resolved and is currently denying any symptoms. Admits to history of end-stage renal disease on hemodialysis Thursday, Thursday but states that during her last 2 sessions she had the majority of the sessions but not the full session as her ride was late. Currently denying any chest pain or shortness of breath, any recent illness, fevers or chills. Related Data Home Medications ?Medication ?Instructions ?Recorded ?Confirmed ?Last Taken ?Type acetaminophen 325 mg capsule 650 mg PO QID PRN pain 03/11/24 04/01/24 Unknown History bisacodyl 10 mg rectal suppository 10 mg RECTAL DAILY PRN constipation 03/11/24 04/01/24 Unknown History ergocalciferol (vitamin D2) 1,250 1,250 mcg PO WEEKLY 03/11/24 04/01/24 03/09/24 History mcg (50,000 unit) capsule buspirone 5 mg tablet 5 mg PO BID 04/01/24 04/01/24 Unknown History cholestyramine-aspartame 4 gram 1 ea PO TID 04/01/24 04/01/24 Unknown History oral powder for susp in a packet (Cholestyramine Light) magnesium citrate (Citrate of 296 ml PO DAILY PRN constipation 04/01/24 04/01/24 Unknown History Magnesia oral) magnesium hydroxide 400 mg/5 mL 30 ml PO DAILY PRN constipation 04/01/24 04/01/24 Unknown History oral suspension (Bo Milk of Magnesia) Allergies Allergy/AdvReac Type Severity Reaction Status Date / Time cortisone Allergy Intermediate Dyspnea / Verified 05/30/24 08:33 SOB Penicillins Allergy Intermediate Dyspnea / Verified 05/30/24 08:33 SOB ceftriaxone (From Rocephin) Allergy Difficulty Verified 05/30/24 08:33 Breathing Review of Systems Review of Systems: All systems are reviewed and are negative unless stated otherwise in the HPI. 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 COVID-19 virus infection Renal osteodystrophy Erythropoietin deficiency anemia End-stage renal disease on hemodialysis Thursday Normal colonoscopy (08/2019) Shingles (1991) Gastroesophageal reflux disease Restless leg syndrome Renal cell carcinoma (2004) Obstructive sleep apnea No longer using CPAP after 40 lb weight loss. Coronary artery disease History of stent x3. Anemia of chronic disease Pericardial effusion (01/2020) Small pericardial effusion on echocardiogram, felt to be related to uremia. Hypothyroidism Peripheral vascular disease Crohn's disease History of kidney stones Peritonitis (01/2020) Surgical History Surgical History Amputation toe Left 2nd toe. History of complete ray amputation of second toe of left foot History of complete ray amputation of second toe of right foot History of cholecystectomy History of appendectomy History of foot surgery Repair of left foot fracture with pinning. History of partial nephrectomy (2004) Left partial nephrectomy for kidney cancer. History of tonsillectomy History of bilateral carpal tunnel release History of hysterectomy (1976) With cystocele and rectocele repairs. History of cardiac catheterization With stent x3. History of cystoscopy With ureteral stents for kidney stones. History of colonoscopy Family History Family History Father Renal cell carcinoma Acute myocardial infarction Cerebrovascular accident Colon polyp Heart disease Hypertension Mother Lung cancer Acute myocardial infarction Cerebrovascular accident Depression Heart disease Hypertension Son Asthma Social History Social History Social History: Patient is retired. 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 She had 1 son who at 50 years old heart attack. She has a 2nd son who is still living and he was her surrogate decision maker. To smoke 1 pack of cigarettes per day for about 30 years. She quit smoking in 1995. She denies any alcohol use or illicit substance use. She is living in [facility]. Surrogate medical decision maker: Dong Maher, son. Code status: DNR/DNI Smoking packs per day: 0.5 Smoking cigarettes per day: 10.0 Years smoked: 10 Smoking pack-years: 5.00 Smoking status: Former smoker Tobacco type: cigarettes Second hand tobacco smoke exposure: No Smoking end date: 03/16/93 Alcohol intake: never Substance use: never Do You Feel Safe in your Home?: Yes Lack of Transportation: No Lack of Food: Never True Current Housing: I Have Housing Concerned About Future Housing: No Difficulty Paying Gas/Electric Bills: No Difficulty Paying for Meds: No Currently Unemployed: No Education: High School Diploma/GED Difficulty w/ Childcare or Family Care: No Living arrangements: alone Additional living arrangements comments: , lives in [place]. 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 Spiritual care concerns: No Agree to blood products: Yes Exam Narrative: General: Alert, awake, afebrile, in no acute distress. HEENT: PERRL, no rhinorrhea, no post nasal drip, oropharynx clear. Neck: Trachea midline, no JVD, no lymphadenopathy. Cardiovascular: Regular rate and rhythm, no murmurs, rubs or gallops, no peripheral edema. Respiratory: Clear to auscultation bilaterally, no tachypnea, no wheezing, no rhonchi, no rubs, no respiratory distress. Abdomen: Soft, nontender, nondistended, no rebound, no guarding, no peritoneal signs. Musculoskeletal: No joint swelling or deformity, normal muscle tone. Skin: No rashes or petechia, no signs of infection. Psychiatric: Alert and oriented, normal behavior and judgment for situation. Neurological: Alert and oriented to person, place, and time. Follows all commands. No focal deficits, speech is clear and fluent. Course Vital Signs Vital signs: Vital Signs Temperature 98 F 06/29/24 20:32 Pulse Rate 82 06/29/24 20:32 Respiratory Rate 18 06/29/24 20:32 Blood Pressure 152/65 H 06/29/24 20:32 Pulse Oximetry 97 06/29/24 20:32 Oxygen Delivery Room Air 06/29/24 20:32 Temperature 98 F 06/29/24 20:32 Pulse Rate 82 06/29/24 20:32 Respiratory Rate 18 06/29/24 20:32 Blood Pressure 152/65 H 06/29/24 20:32 Pulse Oximetry 97 06/29/24 20:32 Oxygen Delivery Room Air 06/29/24 20:32 Medical Decision Making MDM Narrative Medical decision making narrative: The patient was evaluated by myself in the emergency department. History is obtained from patient who is an independent historian and physical exam was performed. External medical records were reviewed at this time. IV was established and pertinent tests were ordered. EKG was obtained which revealed sinus rhythm rate of 84 beats per minute, no evidence of acute ischemia. EKG was independently interpreted by me and is currently pending official cardiology read. Laboratory results obtained revealing out creatinine of 4.42 and a BUN of 27 which is lower than patient's normal baseline given her history of end-stage renal disease, otherwise unremarkable. Imaging studies obtained included CT abdomen pelvis with IV contrast which was independently interpreted by me revealing: IMPRESSION: 1. Multiple nodules in the lung bases which may be metastatic. 2. Hepatomegaly. 3. Atrophic kidneys. 4. Sliding hiatus hernia. 5. No evidence of appendicitis, diverticulitis or intestinal obstruction. Patient was informed of these findings at bedside. Per chart review, patient had a pulmonary nodule in her upper lung region biopsied end of March and patient was informed that she was told that it was benign. Patient was informed regarding her multiple nodules in the lung bases and she states that she follows up with her primary care physician for repeat CT scans regularly to monitor these nodules. Differential diagnosis considerations include acute viral syndrome, gastroenteritis, dehydration, electrolyte derangements. Comorbidities impacting this visit include none. I have evaluated and discussed social determinants of health with the patient that could potentially impact subsequent diagnosis and treatment plans. On repeat assessment of the patient, reevaluation revealed that the patient is doing well and is in no acute distress. Patient symptoms have improved since she arrived to our emergency department. Repeat vital signs were all reviewed and noted to be stable. Differential diagnosis and treatment plan were discussed with the patient at bedside. Patient agrees with discussion and after shared medical decision making agrees with discharge. All questions were answered to the patient's satisfaction. Patient will follow up with her PCP in 3-5 days. Patient was provided with strict return precautions and instructed to return to the emergency department if any new or worsening symptoms develop. The patient was discharged in stable condition. Vital Signs Vital Signs: Vital Signs Temperature 98 F 06/29/24 20:32 Pulse Rate 82 06/29/24 20:32 Respiratory Rate 18 06/29/24 20:32 Blood Pressure 152/65 H 06/29/24 20:32 Pulse Oximetry 97 06/29/24 20:32 Oxygen Delivery Room Air 06/29/24 20:32 Temperature 98 F 06/29/24 20:32 Pulse Rate 82 06/29/24 20:32 Respiratory Rate 18 06/29/24 20:32 Blood Pressure 152/65 H 06/29/24 20:32 Pulse Oximetry 97 06/29/24 20:32 Oxygen Delivery Room Air 06/29/24 20:32 Lab Data 06/29/24 20:47 06/29/24 20:47 Labs: Lab Results 06/29/24 Range/Units 20:47 WBC 7.6 (4.5-10.0) K/mm3 RBC 3.80 L (4.2-5.4) M/mm3 Hgb 11.5 L (12.0-15.0) g/dL Hct 36.4 L (37.0-47.0) % MCV 95.8 (80-100) fl MCH 30.3 (26-34) pg MCHC 31.6 L (32-36) g/dl RDW 14.9 H (11.5-14.5) % Plt Count 220 (150-375) k/mm3 MPV 9.2 (7.4-10.4) fl Immature Gran % (Auto) 1.4 H (0-0.5) % Neut % (Auto) 64.8 (45.5-73.1) % Lymph % (Auto) 18.5 (18.3-44.2) % [place] % (Auto) 8.7 H (2.6-8.5) % Eos % (Auto) 6.2 H (0-4.4) % Baso % (Auto) 0.4 (0.2-1.2) % Lymph # (Auto) 1.41 (0.9-3.2) K/mm3 [place] # (Auto) 0.7 H (0.1-0.6) K/mm3 Eos # (Auto) 0.5 H (0-0.3) K/mm3 Baso # (Auto) 0.0 (0.0-0.1) K/mm3 Abs Immat Gran (auto) 0.11 H (0.00-0.031) K/mm3 Absolute Neuts (auto) 4.9 (1.3-6.7) K/mm3 Absolute Nucleated RBC 0.000 (0.0-0.012) K/mm3 Nucleated RBC % 0.0 (0.0-0.2) % Sodium 139 (137-145) mmol/L Potassium 3.9 (3.4-5.0) mmol/L Chloride 97 L (98-107) mmol/L Carbon Dioxide 29 (22-30) mmol/L Anion Gap 13 H (4-12) mmol/L BUN 27 H D (7-17) mg/dL Creatinine 4.42 H (0.7-1.0) mg/dL Estim Creat Clear Calc 10 ml/min Estimated GFR 10 L (59 - ) Glucose 198 H (65-110) mg/dL Calcium 8.6 (8.4-10.2) mg/dL Magnesium 1.6 (1.6-2.3) mg/dL Total Bilirubin 0.5 (0.2-1.3) mg/dL AST 19 (14-36) U/L ALT 19 (6-35) U/L Alkaline Phosphatase 149 H (38-126) U/L Total Protein 7.0 (6.3-8.2) g/dL Albumin 4.2 (3.5-5.1) g/dL Lipase 143 (23-300) U/L Discharge Plan Discharge Clinical Impression: Enteritis, Nausea vomiting and diarrhea, Lung nodule, multiple Patient Disposition: SNF Condition: Improved Instructions: Acute Nausea and Vomiting (ED), Acute Diarrhea (ED), Pulmonary Nodules (ED), Enteritis (ED) Additional Instructions: Please follow-up with your family doctor within the next 3-5 days. Return to emergency department if any new or worsening symptoms develop. You need to follow-up with her primary care physician regarding the lung nodules seen at the base of your lungs. Patient Language: Hebrew Prescriptions: No Action dicyclomine 20 mg tablet 20 mg PO TID Qty: 90 5RF loperamide 2 mg tablet 4 mg PO QID PRN (Reason: loose stool) Qty: 100 5RF Cholestyramine Light 4 gram powder 4 g PO TID Qty: 239.4 5RF Rx Instructions: administer w/meal; avoid other meds within 1hr before or 4-6hr after dose escitalopram oxalate 10 mg tablet 10 mg PO DAILY Qty: 30 5RF acetaminophen 325 mg capsule 650 mg PO QID PRN (Reason: pain) bisacodyl 10 mg suppository 10 mg RECTAL DAILY PRN (Reason: constipation) ergocalciferol (vitamin D2) 1,250 mcg (50,000 unit) capsule 1,250 mcg PO WEEKLY Patient Comments: On Wednesdays loperamide 2 mg tablet 2 mg PO QID PRN (Reason: loose stool) Qty: 20 0RF cyclobenzaprine 5 mg tablet 5 mg PO TID PRN (Reason: muscle spasm) Qty: 10 0RF magnesium citrate [Citrate of Magnesia] Solution 296 ml PO DAILY PRN (Reason: constipation) magnesium hydroxide [Bo Milk of Magnesia] 400 mg/5 mL suspension 30 ml PO DAILY PRN (Reason: constipation) buspirone 5 mg tablet 5 mg PO BID cholestyramine-aspartame [Cholestyramine Light] 4 gram powder in packet 1 ea PO TID atorvastatin 40 mg tablet 40 mg PO DAILY Qty: 90 2RF bupropion HCl 150 mg tablet extended release 24 hr 150 mg PO QAM Qty: 90 1RF diclofenac sodium [Voltaren Arthritis Pain] 1 % gel 2 g topical BID PRN (Reason: knee pain) Qty: 200 5RF Rx Instructions: apply to single elbow, wrist or hand; for hand includes palm/fingers/back of hand levetiracetam 500 mg tablet 500 mg PO Q12H Qty: 180 1RF mirtazapine 30 mg tablet 30 mg PO QHS Qty: 90 1RF pantoprazole 40 mg tablet,delayed release (DR/EC) 40 mg PO QAM Qty: 90 1RF ropinirole 0.5 mg tablet 0.5 mg PO BID Qty: 180 1RF hydrocodone-acetaminophen 5-325 mg tablet 1 tablet PO QID PRN (Reason: pain) Qty: 120 0RF clobetasol 0.05 % cream See Rx Instructions .ROUTE .COMPLEX Qty: 30 0RF Dose Instruction: APPLY TO AFFECTED AREAS TWICE DAILY Rx Instructions: APPLY TO AFFECTED AREAS TWICE DAILY Follow-up/Referrals: Justen Singer MD [Primary Care Provider] - 3 Days Time of Disposition: 23:43
[2024-06-30 00:08] VITALS: BP 148/90; PULSE 86; RESP 15; O2SAT 98
== END 2024-06-30 00:08 ==
PROVIDERS: Emergency Provider Emergency Medicine; PCP Family Medicine Adolescent Medicine
DX: K52.9 Noninfective gastroenteritis and colitis, unspecified (principal); R91.8 Other nonspecific abnormal finding of lung field; N18.6 End stage renal disease; Z99.2 Dependence on renal dialysis; K21.9 Gastro-esophageal reflux disease without esophagitis; G25.81 Restless legs syndrome; E03.9 Hypothyroidism, unspecified; Z87.442 Personal history of urinary calculi; K50.90 Crohn's disease, unspecified, without complications
CPT/HCPCS: 36415; 74176; 80053; 83690; 83735; 85025; 93005; 99284

== ENCOUNTER 2024-08-04 06:59 | Emergency (ER) | payer MEDICARE, SELFPAY ==
--- NOTE | ~2024-08-04 | XR_ITS ---
XR knee RT 3V Ordering provider: Tala Saldana III, DO History: . fall . Comparison: May 17, 2019 FINDINGS: BONES: No acute fracture or dislocation. Osteopenia of the bones. JOINT SPACES: Severe narrowing of the lateral compartment. Severe narrowing of the patellofemoral elizabeth nt. Marginal osteophytes in the knee and patella. SOFT TISSUES: Vascular calcifications. IMPRESSION: No acute osseous abnormality right knee. Severe osteoarthritic changes. Reviewed, dictated and finalized at location A.
--- NOTE | ~2024-08-04 | XR_ITS ---
3 VIEWS LUMBAR SPINE Ordering provider: Tala Saldana III, DO History: . fall . Comparison: None. FINDINGS: VERTEBRAL BODIES:Possibility of fracture at the sacrococcygeal area is not excluded. Otherwise, No v isible fracture or subluxation. Degenerative changes of the spine. DISK SPACES: Narrowing of the disc T12-L1, L3-L4 and L4-L5. Facet joint disease at the level of L5-S1. Bilateral severe hip osteoarthritic changes. Bilateral sac roiliitis. SOFT TISSUES: Vascular calcifications. IMPRESSION: Possible fracture or destructive seizure area. Otherwise, No acute osseous abnormality lumbar spine. Multilevel degenerative disc disease. Reviewed, dictated and finalized at location A. IMPRESSION: Possible fracture or destructive seizure area. Otherwise, No acute osseous abno rmality lumbar spine. Multilevel degenerative disc disease.
--- NOTE | ~2024-08-04 | XR_ITS ---
XR knee LT 3V Ordering provider: Tala Saldana III, DO History: . fall, pain . Comparison: June 11, 2005 FINDINGS: BONES: No acute fracture or dislocation. Osteopenia of the bones. JOINT SPACES: Narrowing of the lateral compartment. Marginal osteophytes in the mid patella. Narrowin g of the patellofemoral joint. Chondrocalcinosis in the medial and lateral menisci. SOFT TISSUES: Vascular calcifications. IMPRESSION: No acute osseous abnormality left knee. Severe osteoarthritic changes. Reviewed, dictated and finalized at location A.
[2024-08-04 07:07] VITALS: BP 118/76; PULSE 80; RESP 16; O2SAT 98
--- OUTSIDE RECORDS SUMMARY | 2024-08-04 07:28 | XMS_ITS | Clinical Summary ---
Author Organization [facility] Address [address] [place] [address] Care Team Providers Care Senior Painter Name Role Phone Justen Singer MD Primary Care Prov ider Jamshid Joe MD Unavailable [phone] Alex Edgar MD Unavailable [phone] Allergies Active Allergy Reactions Criticality Noted [...] mcg tablet Take 75 mcg by mouth capture manager before breakfast Active Vitamin D2 1,250 mcg [...] 03/26/2012 Surgical History Surgery Date Site/Laterality Comments [place] LAPAROSCOPY SURG PARTIAL NEPHRECTOMY Left Kidney Surgery Laparoscopic Partial Nephrectomy - oncocytoma (Added by TW Conv) APPENDECTOMY Appendectomy - (Added by TW Conv) HYSTERECTOMY Hysterectomy - (Added by TW Conv) FOOT FRACTURE SURGERY Treatment Of Foot Fracture - 2004 (Added by TW Conv) CHOLECYSTECTOMY Cholecystectomy - 2005 (Added by TW Conv) [place] PRQ TRLUML CORONARY STENT W/ANGIO ONE ART/BRNCH [...] TW Conv) Atherosclerotic heart diseas e of [place] coronary artery without angina pectoris Arteriosclerot ic [...] on file Legal Sex Female 6:58 AM BATTERY CONTAINER TESTER ALUMINUM Gender Identity Not on file Sexual Orientation Not on file Obstetrics History Last Filed Vital Signs Vital Sign Reading Time Taken Comments Blood Pressure 178/70 05/06/2022 9:26 AM BATTERY CONTAINER TESTER ALUMINUM Pulse 73 05/06/2022 9:26 AM BATTERY CONTAINER TESTER ALUMINUM Temperature 36.6 C (97.8 F) 08/26/2021 2:10 PM CDT Respiratory Rate 18 03/19/2020 8:41 PM BATTERY CONTAINER TESTER ALUMINUM Oxygen Saturation 90% 05/06/2022 9:26 AM BATTERY CONTAINER TESTER ALUMINUM Inhaled Oxygen Concentration - - Weight 73.9 kg (163 lb) 05/06/2022 9:26 AM BATTERY CONTAINER TESTER ALUMINUM Height 160 cm (5' 3 ) 05/06/2022 9:26 AM BATTERY CONTAINER TESTER ALUMINUM Body Mass Index 28.87 05/06/2022 9:26 AM BATTERY CONTAINER TESTER ALUMINUM Plan of Treatment Health Maintenance Due Date [...] 5 season) 2023 06/06/2020, 05/15/2020 Influenza Vaccine (Season Ended) 2024 11/29/2019, 11/23/2019, 01/06/2019, Additional history exists Hepatitis C [...] 90 - 130 mL/min/1.7 3 m2 [facility] Comment: Interpretive Data Reference Interval Normal [...] ORDERABLES Final Result Performing Organization Address City/[facility] Co de Phone Number [facility] [place] [address] * Hepatitis C antibody (11/23/2020 12:05 PM CDT) [facility] Hep C Ab Nonreactive Nonreactive [facility] Comment:Antibodies to HCV no t detected. Does NOT exclude the possibility of recent exposure to HCV. Blood 11/23/2020 12:0 5 PM CDT 11/23/2020 12:20 PM CDT Jani Rose MD LAB MICROBIOLOGY - GENERAL ORDERABLES Edited Result - Final Performing Organization Address [facility] [place] [address] * (ABNORMAL) Hemoglobin A1c (11/23/2020 12:05 PM CDT) [facility] Hgb A1C 6.1(H) 4.0 - 5.6 % [facility] Estimated Average Glucose 128 mg/dL [facility] Comment: The ADA recommends reporting an [...] ORDERABLES Final Result Performing Organization Address City/[facility] [place] [place] [address] * (ABNORMAL) Lipid panel (11/23/2020 12:05 PM CDT) [facility] Cholesterol 148 30 - 199 mg/dL [facility] Comment: Interpretive Data Ages < [...] revised on 2017. Triglycerides 303(H) <=149 mg/dL [facility] Comment: Interpretive Data Ages < [...] revised on 2017. HDL 41 >=40 mg/dL [facility] Comment: Interpretive Data Ages < [...] on 2017. LDL, calculated 46 <=129 mg/dL [facility] Comment: Interpretive Data Ages < [...] revised on 2017. Non-HDL Cholesterol 107 mg/dL [facility] Comment: Interpretive Data Ages < or [...] last revised on 2017. Chol/HDL ratio 4 [facility] Blood 11/23/2020 12:0 5 PM CDT 11/23/2020 12:20 PM CDT us Jani Rose MD LAB BLOOD ORDERABLES Final Result [facility] [place] [address] from Last 3 Months or Most Recently Relevant to Health Maintenance Insurance [employer] [facility] [employer] [facility] [employer] [facility] Care Teams Senior Painter Relationship Specialty Start Date End Date Justen Singer MD [address] [place] [address] PCP - General Family Medicine 08/27/20 Jamshid Joe MD [address] [place] [id number] Referring Physician Nephrology 10/08/20 Alex Edgar MD [address] [place] [address] Referring Physician Cardiology 10/08/20
--- OUTSIDE RECORDS SUMMARY | 2024-08-04 07:28 | XMS_ITS | Encounter Summary ---
Author Organization [facility] Address [address] [place] [address] Phone Care Team Providers Care Lead Supply Worker Name Role Phone Justen Singer MD Primary Care Prov ider Justen Singer MD Primary Care Prov ider Lita Elizabeth RN Unavailable [phone] Jamshid Joe MD Unavailable [phone] Alex Edgar MD Unavailable [phone] Encounter Details Date Type Department Care Team (Late st Contact Info) Description 12/15/2019 Telephone [facility] Cardiology [address] [facility] Advanced Medicine [address] [place] [address] [place] [address] Alex Edgar MD [address] [facility] [address] [place] [address] Social History Tobacco Use Types Packs/Day Years Used Date Smoking Tobacco: Former Smokeless Tobacco: Never Comments Unknown Sex and Gender Information Value Date Recorded Sex Assigned at Not on file Legal Sex Female 6:58 AM INTEGRATED CIRCUIT IC LAYOUT DESIGNER Gender Identity Not on file Sexual Orientation Not on file documented as of this encounter Plan of Treatment Not on file documented as of this encounter Visit Diagnoses Not on filedocumented in this encounter Additional Health Concerns Infection Onset Date Last Indicated Resolved Time COVID19 03/19/2020 03/19/202004/02/2020 3:07 AM INTEGRATED CIRCUIT IC LAYOUT DESIGNER documented as of this encounter Care Teams Lead Supply Worker Relationship Specialty Start Date End Date Justen Singer MD [address] [place] [address] PCP - General 03/27/17 08/26/20 Justen Singer MD [address] [place] [address] PCP - General Family Medicine 08/27/20 Lita Elizabeth, DINORAH [address] [id number] Registered Nurse [place] 08/27/20 Jamshid Joe MD [address] [address] Referring Physician Nephrology 10/08/20 Alex Edgar MD [address] [address] Referring Physician Cardiology 10/08/20 documented as of this encounter
--- OUTSIDE RECORDS SUMMARY | 2024-08-04 07:28 | XMS_ITS | Continuity of Care Document ---
Author Organization [facility] Address [address] [place] [address] Phone Care Team Providers Care Manager Delivery Name Role Phone Paulo Lockwood MD Unavailable [...] Diagnoses Date Provider Providers Copied on Encounter [facility], [address] [place], [place], [id number], tel:[phone] [facility] No Information Fabián Bates . [address] [place], [place], [id number] , [place]. tel:[phone] [facility], [address] [place], [place], [id number], [place] tel:[phone] [facility] Compression of VeinEnd stage renal disease May-2 5 Lockwood Paulo . [address] [place] [address], [id number] , [place]. tel:[phone] Referring Provider: Jamshid Owens, [address] [place] [address], [id number]. tel:[phone] [facility], [address] [place] [address], [id number], [place] tel:[phone] [facility] End stage renal diseaseCompression of Vein 5 Lockwood Paulo . [address] [place] [address], [id number] , [place]. tel:[phone] Referring Provider: Jamshid Owens, [address] [place] [address], [id number]. tel:[phone] [facility], [address] [place] [address], [id number], [place] tel:[phone] [facility] Stricture of ArteryEnd stage renal disease Dec-0 4 Lockwood Paulo . [address] [place] [address], [id number] , [place]. tel:[phone] Referring Provider: Jamshid Owens, [address] [place] [address], [id number]. tel:[phone] [facility], [address] [place] [address], [id number], [place] tel:[phone] [facility] End stage renal diseaseStricture of Artery 0 4 Lockwood Paulo . [address] [place] [address], [id number] , [place]. tel:[phone] Referring Provider: Jamshid Owens, [address] [place] [address], [id number]. tel:[phone] [facility], [address] [place] [address], [id number], tel:[phone] [facility] Compression of VeinEnd stage renal disease Sep-0 4 Lockwood Paulo . [address] [facility], [place], [place], [id number] , [place]. tel:[phone] Referring Provider: Jamshid Owens, [address] [place] [address], [place], [address]. tel:[phone] [facility], [address] [place], [place], [id number], tel:[phone] [facility] Compression of VeinEnd stage renal disease Sep-0 4 Lockwood Paulo . [address] [place], [place], [id number] , [place]. tel:[phone] Referring Provider: Jamshid Owens, [address] [place] [address], [id number]. tel:[phone] As per patient privacy policy some of the clinical information may not be visible. Family History Family Member Type Diagnosis Age At Onset No Information Payers Payer name Insurance type Covered democrat ID Ok cisse(s) Medicare [place] [id number] [employer] [place] [employer] BL [id number] Social History Type Description Quantity Date Captured Comments Sex Female Smoking Status No Information Gender Identity Female Chief Complaint And Reason For Visit No Information Reason For Referral Reason For Referral No Information Plan Of Treatment Date Type Action Status Appointment Layla Maher //LILIA WINTER 6 Month F/u BOOKED Future Order: Radiology Order Up per Body Flouroscopy ([id number]), Ordered on: Ordered Future Order: Radiology Order Up per Body Flouroscopy ([id number]), Ordered on: Ordered Future Order: Radiology Order Up per Body Flouroscopy ([id number]), Ordered on: Ordered History Of Present Illness Encounter Date Complaint History Of Prese nt Illness No Information Functional Status Date Functional Assessmen t No Information Instructions Date Instruction Additional Infor mation No Information Assessments Type Assessment Date No Information Patient Care Teams Name Effective Dates (start - stop) Status Members No Information
--- OUTSIDE RECORDS SUMMARY | 2024-08-04 07:28 | XMS_ITS | Referral Summary ---
Author Organization [facility] Address [address] [place] [address] Care Team Providers Care Block Engraver Name Role Phone Justen Singer MD Primary Care Prov ider Jamshid Joe MD Unavailable [phone] Alex Edgar MD Unavailable [phone] Allergies Active Allergy Reactions Criticality Noted [...] mcg tablet Take 75 mcg by mouth desk clerk before breakfast Active Vitamin D2 1,250 mcg [...] on file Legal Sex Female 6:58 AM EXPRESS CLERK Gender Identity Not on file Sexual Orientation Not on file Last Filed Vital Signs Vital Sign Reading Time Taken Comments Blood Pressure 178/70 05/06/2022 9:26 AM EXPRESS CLERK Pulse 73 05/06/2022 9:26 AM EXPRESS CLERK Temperature 36.6 C (97.8 F) 08/26/2021 2:10 PM CDT Respiratory Rate 18 03/19/2020 8:41 PM EXPRESS CLERK Oxygen Saturation 90% 05/06/2022 9:26 AM EXPRESS CLERK Inhaled Oxygen Concentration - - Weight 73.9 kg (163 lb) 05/06/2022 9:26 AM EXPRESS CLERK Height 160 cm (5' 3 ) 05/06/2022 9:26 AM EXPRESS CLERK Body Mass Index 28.87 05/06/2022 9:26 AM EXPRESS CLERK Plan of Treatment Not on file Procedures [...] (ABNORMAL) eGFR (11/23/2020 12:05 PM CDT) Pathologist [facility] eGFR 8(L) 90 - 130 mL/min/1.7 3 m2 [facility] Comment: Interpretive Data Reference Interval [...] Rose MD LAB BLOOD ORDERABLES Final Result [facility] Department [place] [address] * Hepatitis C antibody (11/23/2020 12:05 PM CDT) Pathologist [facility] Hep C Ab Nonreactive Nonreactive [facility] Comment:Antibodies to HCV no t detected. Does NOT exclude the possibility of recent exposure to HCV. Blood 11/23/2020 12:0 5 PM CDT 11/23/2020 12:20 PM CDT Jani Rose MD LAB MICROBIOLOGY - GENERAL ORDERABLES Edited Result - Final Performing Organization Address [facility] Co de Phone Number [facility] Department [place] [address] * (ABNORMAL) Hemoglobin A1c (11/23/2020 12:05 PM CDT) Hgb A1C 6.1(H) 4.0 - 5.6 % [facility] Estimated Average Glucose 128 mg/dL [facility] Comment: The ADA recommends reporting [...] BLOOD ORDERABLES Final Result Performing Organization Address [facility] Co de Phone Number [facility] Department [place] [address] * (ABNORMAL) Lipid panel (11/23/2020 12:05 PM CDT) Cholesterol 148 30 - 199 mg/dL [facility] Comment: Interpretive Data Ages < [...] revised on 2017. Triglycerides 303(H) <=149 mg/dL [facility] Comment: Interpretive Data Ages < [...] revised on 2017. HDL 41 >=40 mg/dL [facility] Comment: Interpretive Data Ages < [...] on 2017. LDL, calculated 46 <=129 mg/dL [facility] Comment: Interpretive Data Ages < [...] revised on 2017. Non-HDL Cholesterol 107 mg/dL [facility] Comment: Interpretive Data Ages < or [...] MD LAB BLOOD ORDERABLES Final Result [facility] Department [place] [address] from Last 3 Months or Most Recently Relevant to Health Maintenance Insurance MEDICARE [facility] MEDICARE [facility] MEDICARE [facility] Care Teams Block Engraver Relationship Specialty Start Date End Date Justen Singer MD [address] [place] [address] PCP - General Family Medicine 08/27/20 Jamshid Joe MD [address] [place] [address] Referring Physician Nephrology 10/08/20 Alex Edgar MD [address] [place] [address] Referring Physician Cardiology 10/08/20
--- OUTSIDE RECORDS SUMMARY | 2024-08-04 07:28 | XMS_ITS | Clinical Summary ---
Author Organization [facility] Address [address], [place] [address] Phone Care Team Providers Care Supervisor Malted Milk Name Role Phone Justen Bonds MD Primary [...] Ended) 2024 01/07/20 19, 03/26/2012 Insurance MEDICARE [facility] [employer] [facility] PM INTERFACED INSURANCE Care Teams Supervisor Malted Milk Relationship Specialty Start Date End Date Justen Bonds MD [address] [address] PCP - General Family Medicine 01/10/19
--- OUTSIDE RECORDS SUMMARY | 2024-08-04 07:29 | XMS_ITS | Clinical Summary ---
Author Organization [facility] Address [address] [facility] [place] [address] Phone Care Team Providers Care Jtac Name Role Phone Justen Singer MD Primary Care Provider [phone] Allergies Active Allergy Reactions Criticality Noted Date [...] hours as needed for Pain. 20 Tablet Active Active Problems Problem Noted Date Diagnosed [...] Comments Blood Pressure 173/60 04/24/2020 9:15 AM BELLY DUMP DRIVER Pulse 59 04/24/2020 6:13 AM BELLY DUMP DRIVER Temperature 36.6 C (97.8 F) 04/24/2020 6:13 AM BELLY DUMP DRIVER Respiratory Rate 17 04/24/2020 9:15 AM BELLY DUMP DRIVER Oxygen Saturation 97% 04/24/2020 9:15 AM BELLY DUMP DRIVER Inhaled Oxygen Concentration - - Weight 68 kg (150 lb) 04/24/2020 6:13 AM BELLY DUMP DRIVER Height 160 cm (5' 3 ) 04/24/2020 6:13 AM BELLY DUMP DRIVER Body Mass Index 26.57 04/24/2020 6:13 AM BELLY DUMP DRIVER Plan of Treatment Health Maintenance Due Date [...] 01/26/2023 07/26/2022, 02/2022 INFLUENZA VACCINE (#1) 2023 0, 11/23/2019, 01/06/2019, Additional history exists Medical Devices Implanted Type Area Communication Clerk Device Identifier Shelf Expiration Date Model / Serial / Lot 3 Cardiac Stents Left Renal Stent Explanted Type Area Communication Clerk Device Identifier Shelf Expiration Date Model / Serial / Lot Cath Pd Howard Curl 2cuff [id number] - [id number] Implanted:Qty : 1 on 01/25/2020 by Rafita Bartlett MD at [facility] Explanted:Qty : 1 on 04/24/2020 by Hawk Angel MD at [facility] Catheter N/A: Abdomen [employer] - [employer] 09/12/2024 [id number] / / [id number] Insurance MEDICARE PART A AND B [facility] Advance Directives For more information, please contact: [phone] * Full Code (Latest Code Status on File) Date Activated Date Inactivated Comments 04/24/2020 7:08 AM 04/24/2020 11:55 AM * Full Code Date Activated Date Inactivated Comments 04/24/2020 5:39 AM 04/24/2020 7:07 AM * Full Code Date Activated Date Inactivated Comments 01/25/2020 5:51 AM 01/26/2020 7:33 PM Care Teams Jtac Relationship Specialty Start Date End Date Justen Singer MD PCP - General Family Practice 01/25/20
--- OUTSIDE RECORDS SUMMARY | 2024-08-04 07:29 | XMS_ITS | Clinical Summary ---
Author Organization [facility] Address [address] [place] [address] Care Team Providers Care Technical Support Analyst Name Role Phone Justen Singer MD Primary Care Provider + Source Comments [facility],non-owned Affiliates and Associated Physician Practices is amultiple site organization consisting of ambulatory clinics and hospital sitesin [place], [place], [place] and [place]. This disclosure is being madepursuant to the Care Everywhere program and may not contain all information available regarding this patient. Last updated 17.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 Treatment target values recommended by ADA and other clinical organizations should be used to evaluate metabolic control in patients. Reference: [place] Diabetes Association, Standards of Care in Diabetes [...] LAB - CHEMISTRY ORDERABLES Mai escalona Result [facility] [address] [place] [address], [facility] [phone] from Last 3 Months or Most Recently Relevant to [place] [address] MEDICARE [facility] MEDICARE MEDICARE Advance Directives Documents on File Type Date Recorded Patient Production Control Clerk Expl anation Adv Directive/Living Will/POA 08/15/2022 11:36 [...] 3:50 PM 10/30/2021 11:48 AM Care Teams Technical Support Analyst Relationship Specialty Start Date End Date Justen Singer MD [address] [address] PCP - General 02/14/20
[2024-08-04] MEDS: MORPHINE SULFATE INJ (*CRX) 10 MG/ML AMP 4 MG IM (07:46)
[2024-08-04] MEDS: ONDANSETRON HCL ODT 4 MG TABLET PO (07:46)
--- NOTE | 2024-08-04 09:41 | ED.FALL ---
HPI - Fall General Chief Complaint: Fall Stated Complaint: FALL Time Seen by Provider: 08/04/24 07:20 History of Present Illness HPI Narrative: Pt slid out of wheelchair onto knees on floor and couldn't get up due to pain in her knees. Pt also has some pian in her low back. Pt denies numbness or weakness. Pt denies problems with bladder or bowels. Related Data Home Medications ?Medication ?Instructions ?Recorded ?Confirmed ?Last Taken ?Type acetaminophen 325 mg capsule 650 mg PO QID PRN pain 03/11/24 04/01/24 Unknown History bisacodyl 10 mg rectal suppository 10 mg RECTAL DAILY PRN constipation 03/11/24 04/01/24 Unknown History ergocalciferol (vitamin D2) 1,250 1,250 mcg PO WEEKLY 03/11/24 04/01/24 03/09/24 History mcg (50,000 unit) capsule cholestyramine-aspartame 4 gram 1 ea PO TID 04/01/24 04/01/24 Unknown History oral powder for susp in a packet (Cholestyramine Light) magnesium citrate (Citrate of 296 ml PO DAILY PRN constipation 04/01/24 04/01/24 Unknown History Magnesia oral) magnesium hydroxide 400 mg/5 mL 30 ml PO DAILY PRN constipation 04/01/24 04/01/24 Unknown History oral suspension (Bo Milk of Magnesia) buspirone 5 mg tablet 5 mg PO TID 07/13/24 Unknown History Allergies Allergy/AdvReac Type Severity Reaction Status Date / Time cortisone Allergy Intermediate Dyspnea / Verified 08/04/24 10:26 SOB Penicillins Allergy Intermediate Dyspnea / Verified 08/04/24 10:26 SOB ceftriaxone (From Rocephin) Allergy Difficulty Verified 08/04/24 10:26 Breathing Review of Systems Review of Systems: All systems reviewed & are unremarkable except as noted in HPI and below PMFSH Past Medical History Medical History Diastolic dysfunction Echocardiogram October 2022: EF greater than 70% mildly increased left ventricular wall thickness, grade 1 diastolic dysfunction, patent foramen ovale visualized on agitated saline mild mitral valve regurgitation, mild tricuspid valve regurgitation mild pulmonary hypertension with RVSP of 37 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 COVID-19 virus infection Renal osteodystrophy Erythropoietin deficiency anemia End-stage renal disease on hemodialysis Thursday Normal colonoscopy (08/2019) Tushar (1991) Gastroesophageal reflux disease Restless leg syndrome Renal cell carcinoma (2004) Obstructive sleep apnea No longer using CPAP after 40 lb weight loss. Coronary artery disease History of stent x3. Anemia of chronic disease Pericardial effusion (01/2020) Small pericardial effusion on echocardiogram, felt to be related to uremia. Hypothyroidism Peripheral vascular disease Crohn's disease History of kidney stones Peritonitis (01/2020) Surgical History Surgical History Amputation toe Left 2nd toe. History of complete ray amputation of second toe of left foot History of complete ray amputation of second toe of right foot History of cholecystectomy History of appendectomy History of foot surgery Repair of left foot fracture with pinning. History of partial nephrectomy (2004) Left partial nephrectomy for kidney cancer. History of tonsillectomy History of bilateral carpal tunnel release History of hysterectomy (1976) With cystocele and rectocele repairs. History of cardiac catheterization With stent x3. History of cystoscopy With ureteral stents for kidney stones. History of colonoscopy Family History Family History Father Renal cell carcinoma Acute myocardial infarction Cerebrovascular accident Colon polyp Heart disease Hypertension Mother Lung cancer Acute myocardial infarction Cerebrovascular accident Depression Heart disease Hypertension Son Asthma Social History Social History Social History: Patient is retired. 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 She had 1 son who at 50 years old heart attack. She has a 2nd son who is still living and he was her surrogate decision maker. To smoke 1 pack of cigarettes per day for about 30 years. She quit smoking in 1995. She denies any alcohol use or illicit substance use. She is living in [facility]. Surrogate medical decision maker: Dong Maher, son. Code status: DNR/DNI Smoking packs per day: 0.5 Smoking cigarettes per day: 10.0 Years smoked: 10 Smoking pack-years: 5.00 Smoking status: Former smoker Tobacco type: cigarettes Second hand tobacco smoke exposure: No Smoking end date: 03/16/93 Alcohol intake: never Substance use: never Do You Feel Safe in your Home?: Yes Lack of Transportation: No Lack of Food: Never True Current Housing: I Have Housing Concerned About Future Housing: No Difficulty Paying Gas/Electric Bills: No Difficulty Paying for Meds: No Currently Unemployed: No Education: High School Diploma/GED Difficulty w/ Childcare or Family Care: No Living arrangements: alone Additional living arrangements comments: , lives in [place]. 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 Spiritual care concerns: No Agree to blood products: Yes Exam Const: General: healthy appearing and no acute distress Nutritional Appearance: well nourished Orientation/consciousness: patient oriented x3 Limitations: no limitations Resp: Effort & Inspection: normal respiratory effort Auscultation: clear to auscultation bilaterally Cardio: Rate: regular rate Rhythm: regular rhythm GI: GI Palp: Yes Soft to palpation and No Tenderness to palpation present (GI) Auscultation: normal bowel sounds Back/Spine/Pelvis: Other: some tenderness over low back minimal Skin: General skin exam: normal color Rashes: no rashes Wounds: no wounds Neuro: General: patient oriented x3, moves all extremities, no focal motor deficits and CN's II-XI intact bilaterally Speech: normal speech Extrem: Other: some tenderness and swelling to knees b/l but no swelling or effusion and good rom Psych: Mental Status: mental status grossly normal Affect: normal affect Attitude: cooperative Course Vital Signs Vital signs: Vital Signs Pulse Rate 80 08/04/24 07:07 Respiratory Rate 16 08/04/24 07:07 Blood Pressure 118/76 08/04/24 07:07 Pulse Oximetry 98 08/04/24 07:07 Oxygen Delivery Room Air 08/04/24 07:07 Pulse Rate 90 08/04/24 10:06 Respiratory Rate 18 08/04/24 10:06 Blood Pressure 151/67 H 08/04/24 10:06 Pulse Oximetry 93 08/04/24 10:06 Oxygen Delivery Room Air 08/04/24 07:07 MDM - Fall MDM Narrative Medical decision making narrative: pt slipped out of chair and fell on knees. will xray knees and low back. knee x rays no fx. no definite fx on ls spine but can't exclude sacral fx. since treatment pain contol for this pt does not want ct will send home on [place]. Discharge Plan Discharge Clinical Impression: Contusion of knee, Low back pain Patient Disposition: Home Condition: Stable Instructions: Antibiotic Form, Contusion in Adults (ED) Patient Language: Citizen Of [place] Prescriptions: New hydrocodone-acetaminophen 5-325 mg tablet 1 tablet PO Q6H PRN (Reason: pain) Qty: 14 0RF No Action dicyclomine 20 mg tablet 20 mg PO TID Qty: 90 5RF loperamide 2 mg tablet 4 mg PO QID PRN (Reason: loose stool) Qty: 100 5RF Cholestyramine Light 4 gram powder 4 g PO TID Qty: 239.4 5RF Rx Instructions: administer w/meal; avoid other meds within 1hr before or 4-6hr after dose escitalopram oxalate 10 mg tablet 10 mg PO DAILY Qty: 30 5RF acetaminophen 325 mg capsule 650 mg PO QID PRN (Reason: pain) bisacodyl 10 mg suppository 10 mg RECTAL DAILY PRN (Reason: constipation) ergocalciferol (vitamin D2) 1,250 mcg (50,000 unit) capsule 1,250 mcg PO WEEKLY Patient Comments: On Wednesdays loperamide 2 mg tablet 2 mg PO QID PRN (Reason: loose stool) Qty: 20 0RF cyclobenzaprine 5 mg tablet 5 mg PO TID PRN (Reason: muscle spasm) Qty: 10 0RF magnesium citrate [Citrate of Magnesia] Solution 296 ml PO DAILY PRN (Reason: constipation) magnesium hydroxide [Bo Milk of Magnesia] 400 mg/5 mL suspension 30 ml PO DAILY PRN (Reason: constipation) cholestyramine-aspartame [Cholestyramine Light] 4 gram powder in packet 1 ea PO TID atorvastatin 40 mg tablet 40 mg PO DAILY Qty: 90 2RF bupropion HCl 150 mg tablet extended release 24 hr 150 mg PO QAM Qty: 90 1RF diclofenac sodium [Voltaren Arthritis Pain] 1 % gel 2 g topical BID PRN (Reason: knee pain) Qty: 200 5RF Rx Instructions: apply to single elbow, wrist or hand; for hand includes palm/fingers/back of hand levetiracetam 500 mg tablet 500 mg PO Q12H Qty: 180 1RF mirtazapine 30 mg tablet 30 mg PO QHS Qty: 90 1RF pantoprazole 40 mg tablet,delayed release (DR/EC) 40 mg PO QAM Qty: 90 1RF ropinirole 0.5 mg tablet 0.5 mg PO BID Qty: 180 1RF clobetasol 0.05 % cream See Rx Instructions .ROUTE .COMPLEX Qty: 30 0RF Dose Instruction: APPLY TO AFFECTED AREAS TWICE DAILY Rx Instructions: APPLY TO AFFECTED AREAS TWICE DAILY buspirone 5 mg tablet 5 mg PO TID hydrocodone-acetaminophen 5-325 mg tablet 1 tablet PO QID PRN (Reason: pain) Qty: 120 0RF Follow-up/Referrals: Justen Singer MD [Primary Care Provider] -
[2024-08-04 10:06] VITALS: BP 151/67; PULSE 90; RESP 18; O2SAT 93
--- NOTE | 2024-08-04 10:35 | PC.NURSE ---
Report given to Ashley at [facility]. Pt son called, Dong suazo can provide transportation
== END 2024-08-04 10:36 | disposition home or self-care (01) ==
PROVIDERS: Emergency Provider Emergency Medicine; PCP Family Medicine Adolescent Medicine
DX: S80.02XA Contusion of left knee, initial encounter (principal); S80.01XA Contusion of right knee, initial encounter; S39.92XA Unspecified injury of lower back, initial encounter; E11.43 Type 2 diabetes mellitus with diabetic autonomic (poly)neuropathy; E11.22 Type 2 diabetes mellitus with diabetic chronic kidney disease; N18.6 End stage renal disease; Z99.2 Dependence on renal dialysis; D63.1 Anemia in chronic kidney disease; N25.0 Renal osteodystrophy; E11.51 Type 2 diabetes mellitus with diabetic peripheral angiopathy without gangrene; I73.9 Peripheral vascular disease, unspecified; I25.10 Atherosclerotic heart disease of native coronary artery without angina pectoris; E03.9 Hypothyroidism, unspecified; K50.90 Crohn's disease, unspecified, without complications; K21.9 Gastro-esophageal reflux disease without esophagitis; G25.81 Restless legs syndrome; G47.33 Obstructive sleep apnea (adult) (pediatric); Z66 Do not resuscitate; Z95.5 Presence of coronary angioplasty implant and graft; Z85.528 Personal history of other malignant neoplasm of kidney; Z86.16 Personal history of COVID-19; Z87.442 Personal history of urinary calculi; Z87.891 Personal history of nicotine dependence; Z89.422 Acquired absence of other left toe(s); Z89.421 Acquired absence of other right toe(s); Z90.49 Acquired absence of other specified parts of digestive tract; Z90.5 Acquired absence of kidney; Z90.710 Acquired absence of both cervix and uterus; Z79.899 Other long term (current) drug therapy; W05.0XXA Fall from non-moving wheelchair, initial encounter; M51.379 Other intervertebral disc degeneration, lumbosacral region without mention of lumbar back pain or lower extremity pain; R93.7 Abnormal findings on diagnostic imaging of other parts of musculoskeletal system
CPT/HCPCS: 72100; 73562; 96372; 99284; A9270; J2270

== ENCOUNTER 2024-10-17 15:56 | Emergency (ER) | payer MEDICARE, SELFPAY ==
[2024-10-17] VITALS (19 sets, daily range): BP systolic 61–135; BP diastolic 29–88; PULSE 81–109; RESP 16–24; TEMP 36.3; O2SAT 94–98
--- NOTE | ~2024-10-17 | XR_ITS ---
EXAMINATION: XR chest 1V portable DATE: 10/17/2024 16:36 INDICATION: Shortness of breath TECHNIQUE: frontal view of the chest was obtained. COMPARISON: Chest radiograph dated 04/12/2024 FINDINGS: Persistent linear and streaky airspace opacities in the bilateral mid to lower lung zones consistent with atelectasis/scarring. No new airspace opacities, ulnar edema, pleural effusion or pneumothorax. Borderline heart size. Coronary artery stenting. IMPRESSION: 1. No significant interval change in chronic streaky and linear opacities in bilateral mid and lower lung zones and favor atelectasis/scarring over pneumonia. 2. Borderline heart size. Reviewed, dictated and finalized at location A. IMPRESSION: 1. No significant interval change in chronic streaky and linear opacities in bi lateral mid and lower lung zones and favor atelectasis/scarring over pneumonia. 2. Borderline heart size.
--- NOTE | 2024-10-17 16:22 | ECG_ITS ---
Test Date: 2024-10-17 16:51:38 Measurements Intervals [place] Rate: 83 P: 8 WV: 208 QRS: -58 QRSD: 97 T: 78 QT: 398 QTc: 470 Interpretive Statements SINUS RHYTHM WITH FIRST DEGREE AV BLOCK LEFT ANTERIOR FASCICULAR BLOCK BASELINE ARTIFACT- II ABNORMAL ECG Compared to ECG 06/29/2024 20:48:07 NO SIGNIFICANT CHANGE Electronically Signed On 10-17-2024 19:47:17 CDT by Brennen Keenan D.O.
--- OUTSIDE RECORDS SUMMARY | 2024-10-17 16:26 | XMS_ITS | Encounter Summary ---
Author Organization [facility] Address [address] [place] [address] Phone Care Team Providers Care Historiography Professor Name Role Phone Justen Singer MD Primary Care Prov ider Justen Singer MD Primary Care Prov ider Lita Elizabeth RN Unavailable Jamshid Joe MD Unavailable [phone] Alex Edgar MD Unavailable [phone] Encounter Details Date Type Department Care Team (Late st Contact Info) Description 12/15/2019 Telephone [facility] Cardiology [address] [facility] ([place], [place]) Advanced Medicine 8th [place] [address] [place] [address] Alex Edgar MD [address] [facility] [address] [place] [address] Social History Tobacco Use Types Packs/Day Years Used Date Smoking Tobacco: Former Smokeless Tobacco: Never Comments Unknown Sex and Gender Information Value Date Recorded Sex Assigned at Not on file Legal Sex Female 6:58 AM ACCOUNT SERVICE ASSOCIATE Gender Identity Not on file Sexual Orientation Not on file documented as of this encounter Plan of Treatment Not on file documented as of this encounter Visit Diagnoses Not on filedocumented in this encounter Additional Health Concerns Infection Onset Date Last Indicated Resolved Time COVID19 03/19/2020 03/19/202004/02/2020 3:07 AM ACCOUNT SERVICE ASSOCIATE documented as of this encounter Care Teams Historiography Professor Relationship Specialty Start Date End Date Justen Singer MD [address] [place] [address] PCP - General 03/27/17 08/26/20 Justen Singer MD [address] [place] [address] PCP - General Family Medicine 08/27/20 Lita Elizabeth, DINORAH [address] [id number] Registered Nurse Poultry Farm Laborer 08/27/20 Jamshid Joe MD [address] [address] Referring Physician Nephrology 10/08/20 Alex Edgar MD [address] [address] Referring Physician Cardiology 10/08/20 documented as of this encounter
--- OUTSIDE RECORDS SUMMARY | 2024-10-17 16:26 | XMS_ITS | Patient Health Record ---
Author Organization [facility] Address [address] [place] [address] Care Team Providers Care Refrigeration Technician Name Role Phone Kailee Lan Unavailable [phone] Reason For Referral No Information Medications Medication SIG (Take, Route, Frequency, Duration) Notes Start Date End Date Status Sulfamethoxazole-Trimet hoprim 400-80 MG Oral 06/24/2023 Active Cyclobenzaprine HCl 5 MG Oral 06/24/2023 Active Cholecalciferol 1.25 MG (64229 UT) Oral 06/24/2023 Active Atorvastatin Calcium 40 MG Oral 06/24/2023 Active Paxlovid (300/100) 20 x 150 MG & 10 x 100MG Oral *Reorder from [employer] for eRx and Interaction Alerts* 06/24/2023 Active Sertraline HCl 100 MG Oral 06/24/2023 Active busPIRone HCl 10 MG Oral 06/24/2023 Active Ciprofloxacin HCl 500 MG Oral 06/24/2023 Active buPROPion HCl ER (XL) 300 MG Oral 06/24/2023 Active Levothyroxine Sodium 75 MCG Oral 06/24/2023 Active amLODIPine Besylate 5 MG Oral 06/24/2023 Active rOPINIRole HCl 0.5 MG Oral 06/24/2023 Active buPROPion HCl ER (XL) 150 MG Oral 06/24/2023 Active Escitalopram Oxalate 10 MG Oral 06/24/2023 Active Lisinopril 40 MG Oral 06/24/2023 Ac tive Metoprolol Tartrate 50 MG Oral 06/24/2023 Active oxyCODONE HCl 10 MG Oral 06/24/2023 Active Mirtazapine 30 MG Oral 06/24/2023 A ctive Pantoprazole Sodium 40 MG Oral 06/24/2023 Active Ergocalciferol 1.25 MG (26425 UT) Oral 06/24/2023 Active levETIRAcetam 500 MG Oral 06/24/2023 Active Vancomycin HCl 125 MG Oral 06/24/2023 Active Cholestyramine Light 4 GM/DOSE Oral 06/24/2023 Active levoFLOXacin 750 MG Oral 06/24/2023 Active Plan Of Treatment No Information Insurance Providers Payer Name Payer Address Payer Phone Subscriber Number Group Number Insured Name Patient Relationship to Insured Coverage Start Date Coverage End Date [place] Medicare Supplement [address] [place] [address] [id number] LEV ANDERSON Self - patient is the insured Medical (General) History Surgical History Surgery Date(Month/Year) Removal of gallbladder (11504) Hysterectomy (94881) 05/14/1976 Appendectomy (18666) 06/03/1983 Cardiac stent 06/10/1999
--- OUTSIDE RECORDS SUMMARY | 2024-10-17 16:26 | XMS_ITS | Clinical Summary ---
Author Organization [facility] Address [address] [address] Phone Care Team Providers Care Drafter Automotive Design Layout Name Role Phone Justen Bonds MD Primary Care Provider [phone] Allergies Active Allergy Reactions Criticality Noted Date [...] 2:59 PM CDT Height 162.6 cm (5' 4) 11/02/2019 2:59 PM CDT Body Mass Index 31.07 11/02/2019 2:59 PM CDT Plan of Treatment Health Maintenance Due Date Last Done Comments Pneumococcal PPSV23/PCV13 65 + Years / Low and Medium Risk (1 of 2 - PCV) 05/30/1995 Influenza Vaccine (#1) 2024 01/06/2019, 2012 Insurance MEDICARE [facility] [email or web address] [employer] [place] [facility] PM INTERFACED INSURANCE Care Teams Drafter Automotive Design Layout Relationship Specialty Start Date End Date Justen Bonds MD [address] [address] PCP - General Family Medicine 01/10/19
--- OUTSIDE RECORDS SUMMARY | 2024-10-17 16:26 | XMS_ITS | Referral Summary ---
Author Organization [facility] Address [address] [place] [address] Care Team Providers Care Morning Babysitter Name Role Phone Justen Singer MD Primary Care Prov ider Jamshid Joe MD Unavailable Alex Edgar MD Unavailable Allergies Active Allergy Reactions Criticality Noted Date [...] mcg tablet Take 75 mcg by mouth window shade cutter before breakfast Active Vitamin D2 1,250 mcg [...] on file 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 CURING ROOM Gender Identity Not on file Sexual Orientation Not on file Last Filed Vital Signs Vital Sign Reading Time Taken Comments Blood Pressure 178/70 05/06/2022 9:26 AM SUPERVISOR CURING ROOM Pulse 73 05/06/2022 9:26 AM SUPERVISOR CURING ROOM Temperature 36.6 C (97.8 F) 08/26/2021 2:10 PM CDT Respiratory Rate 18 03/19/2020 8:41 PM SUPERVISOR CURING ROOM Oxygen Saturation 90% 05/06/2022 9:26 AM SUPERVISOR CURING ROOM Inhaled Oxygen Concentration - - Weight 73.9 kg (163 lb) 05/06/2022 9:26 AM SUPERVISOR CURING ROOM Height 160 cm (5' 3) 05/06/2022 9:26 AM SUPERVISOR CURING ROOM Body Mass Index 28.87 05/06/2022 9:26 AM SUPERVISOR CURING ROOM Plan of Treatment Not on file Procedures [...] (ABNORMAL) eGFR (11/23/2020 12:05 PM CDT) Pathologist [facility] eGFR 8(L) 90 - 130 mL/min/1.7 3 m2 [facility] Comment: Interpretive Data Reference Interval Normal [...] Rose MD LAB BLOOD ORDERABLES Final Result [facility] [place] [address] * Hepatitis C antibody (11/23/2020 12:05 PM CDT) Pathologist [facility] Hep C Ab Nonreactive Nonreactive [facility] Comment:Antibodies to HCV no t detected. Does NOT exclude the possibility of recent exposure to HCV. Blood 11/23/2020 12:0 5 PM CDT 11/23/2020 12:20 PM CDT Jani Rose MD LAB MICROBIOLOGY - GENERAL ORDERABLES Edited Result - Final Performing Organization Address [facility] Co de Phone Number [facility] [place] [address] * (ABNORMAL) Hemoglobin A1c (11/23/2020 12:05 PM CDT) Hgb A1C 6.1(H) 4.0 - 5.6 % [facility] Estimated Average Glucose 128 mg/dL [facility] Comment: The ADA recommends reporting an [...] BLOOD ORDERABLES Final Result Performing Organization Address [facility] Co de Phone Number [facility] [place] [address] * (ABNORMAL) Lipid panel (11/23/2020 12:05 PM CDT) Cholesterol 148 30 - 199 mg/dL [facility] Comment: Interpretive Data Ages < or [...] revised on 2017. Triglycerides 303(H) <=149 mg/dL [facility] Comment: Interpretive Data Ages < or [...] revised on 2017. HDL 41 >=40 mg/dL [facility] Comment: Interpretive Data Ages < or [...] on 2017. LDL, calculated 46 <=129 mg/dL [facility] Comment: Interpretive Data Ages < or [...] revised on 2017. Non-HDL Cholesterol 107 mg/dL [facility] Comment: Interpretive Data Ages < or [...] MD LAB BLOOD ORDERABLES Final Result [facility] [place] [address] from Last 3 Months or Most Recently Relevant to Health Maintenance Insurance MEDICARE [facility] MEDICARE [facility] MEDICARE [facility] Care Teams Morning Babysitter Relationship Specialty Start Date End Date Justen Singer MD [address] [place] [address] PCP - General Family Medicine 08/27/20 Jamshid Joe MD [address] [place] [address] Referring Physician Nephrology 10/08/20 Alex Edgar MD [address] [place] [address] Referring Physician Cardiology 10/08/20
--- OUTSIDE RECORDS SUMMARY | 2024-10-17 16:26 | XMS_ITS | Clinical Summary ---
Author Organization [facility] Address [address] [place] [address] Care Team Providers Care Fur Dry Cleaner Hand Name Role Phone Justen Singer MD Primary Care Prov ider Jamshid Joe MD Unavailable [phone] Alex Edgar MD Unavailable [phone] Allergies Active Allergy Reactions Criticality Noted [...] mcg tablet Take 75 mcg by mouth finisher accordion before breakfast Active Vitamin D2 1,250 mcg [...] 03/26/2012 Surgical History Surgery Date Site/Laterality Comments AK LAPAROSCOPY SURG PARTIAL NEPHRECTOMY Left Kidney Surgery Laparoscopic Partial Nephrectomy - oncocytoma (Added by TW Conv) APPENDECTOMY Appendectomy - (Added by TW Conv) HYSTERECTOMY Hysterectomy - (Added by TW Conv) FOOT FRACTURE SURGERY Treatment Of Foot Fracture - 2004 (Added by TW Conv) CHOLECYSTECTOMY Cholecystectomy - 2005 (Added by TW Conv) AK PRQ TRLUML CORONARY STENT W/ANGIO ONE ART/BRNCH [...] TW Conv) Atherosclerotic heart diseas e of kashia coronary artery without angina pectoris Arteriosclerot ic [...] on file Legal Sex Female 6:58 AM HOSPITAL AIDE Gender Identity Not on file Sexual Orientation Not on file Obstetrics History Last Filed Vital Signs Vital Sign Reading Time Taken Comments Blood Pressure 178/70 05/06/2022 9:26 AM HOSPITAL AIDE Pulse 73 05/06/2022 9:26 AM HOSPITAL AIDE Temperature 36.6 C (97.8 F) 08/26/2021 2:10 PM CDT Respiratory Rate 18 03/19/2020 8:41 PM HOSPITAL AIDE Oxygen Saturation 90% 05/06/2022 9:26 AM HOSPITAL AIDE Inhaled Oxygen Concentration - - Weight 73.9 kg (163 lb) 05/06/2022 9:26 AM HOSPITAL AIDE Height 160 cm (5' 3) 05/06/2022 9:26 AM HOSPITAL AIDE Body Mass Index 28.87 05/06/2022 9:26 AM HOSPITAL AIDE Plan of Treatment Health Maintenance Due Date [...] season) 2023 06/06/2020, 05/15/2020 Influenza Vaccine (#1) 2024 , 11/23/2019, 01/06/2019, Additional history exists Hepatitis [...] 90 - 130 mL/min/1.7 3 m2 [facility] Comment: Interpretive Data Reference Interval [...] BLOOD ORDERABLES Final Result Performing Organization Address City/[facility]/ZIP Co de Phone Number [facility] [place] [address] * Hepatitis C antibody (11/23/2020 12:05 PM CDT) [facility] Hep C Ab Nonreactive Nonreactive [facility] Comment:Antibodies to HCV no t detected. Does NOT exclude the possibility of recent exposure to HCV. Blood 11/23/2020 12:0 5 PM CDT 11/23/2020 12:20 PM CDT Jani Rose MD LAB MICROBIOLOGY - GENERAL ORDERABLES Edited Result - Final Performing Organization Address [facility] [place] [address] * (ABNORMAL) Hemoglobin A1c (11/23/2020 12:05 PM CDT) [facility] Hgb A1C 6.1(H) 4.0 - 5.6 % [facility] Estimated Average Glucose 128 mg/dL [facility] Comment: The ADA recommends reporting [...] BLOOD ORDERABLES Final Result Performing Organization Address City/[facility] [place] [address] * (ABNORMAL) Lipid panel (11/23/2020 12:05 PM CDT) [facility] Cholesterol 148 30 - 199 mg/dL [facility] Comment: Interpretive Data Ages < [...] revised on 2017. Triglycerides 303(H) <=149 mg/dL [facility] Comment: Interpretive Data Ages < [...] revised on 2017. HDL 41 >=40 mg/dL [facility] Comment: Interpretive Data Ages < [...] on 2017. LDL, calculated 46 <=129 mg/dL [facility] Comment: Interpretive Data Ages < [...] revised on 2017. Non-HDL Cholesterol 107 mg/dL [facility] Comment: Interpretive Data Ages < [...] last revised on 2017. Chol/HDL ratio 4 [facility] Blood 11/23/2020 12:0 5 PM CDT 11/23/2020 12:20 PM CDT us Jani Rose MD LAB BLOOD ORDERABLES Final Result [facility] Department [place] [address] from Last 3 Months or Most Recently Relevant to Health Maintenance Insurance MEDICARE [facility] MEDICARE [facility] MEDICARE [facility] [place] Care Teams Fur Dry Cleaner Hand Relationship Specialty Start Date End Date Justen Singer MD [address] [place] [address] PCP - General Family Medicine 08/27/20 Jamshid Joe MD [address] [place] [address] Referring Physician Nephrology 10/08/20 Alex Edgar MD [address] [place] [address] Referring Physician Cardiology 10/08/20
--- OUTSIDE RECORDS SUMMARY | 2024-10-17 16:27 | XMS_ITS | Clinical Summary ---
Author Organization [facility] Address [address] [facility] [place] [address] Care Team Providers Care Tourist Cabin Keeper Name Role Phone Justen Singer MD Primary Care Provider + Source Comments [facility],non-owned Affiliates and Associated Physician Practices is amultiple site organization consisting of ambulatory clinics and hospital sitesin [place], [place], [place] and [place]. This disclosure is being madepursuant to the Care Everywhere program and may not contain all information available regarding this patient. Last updated 17.[facility] Allergies Active Allergy Reactions Criticality Noted Date [...] LURIA, FLUZONE TRIVALENT; 6MO+) (IIV3) 01/06/2019 Covid StartSpanish primary Monoval ent 12+ yr 0.3ml 10/26/2021(Deferred: [...] on file Legal Sex Female 12:[address] Gender Identity Not on file Sexual [...] A M CDT Height 165.1 cm (5' 5) 07/28/2022 8:29 PM CDT Body Mass Index [...] PNEUMOCOCCAL VACCINE 50+ (2 of 2 - PPSV23, PCV20, or PCV21) 09/04/2020 07/10/2020 DIABETES RETINOPATHY SCREENING 10/25/2021 DIABETES-FOOT EXAM WITH MONOFILAMENT 10/25/2021 DIABETES-HGB A1C 01/26/2023 07/26/2022, 02/2022, 11/23/2020 COVID-19 VACCINE ( season) 2023 01/03/2021, 06/06/2020, 05/15/2020 DEPRESSION SCREENING 03/16/2024 INFLUENZA VACCINE (#1) 2024 , 11/23/2019, 01/06/2019, Additional history exists HIB VACCINE [...] % 07/27/2022 9:53 AM CDT [facility] Estimated Average Glucose 128 mg/dL 07/27/2022 9:53 AM CDT [facility] Comment: HbA1c Interpretation: Normal : < 5.7% Pre-diabetes: 5.7-6.4% Diabetes: Equal to or greater than 6.5% Test results diagnostic of diabetes should be repeated for confirmation. Treatment target values recommended by ADA and other clinical organizations should be used to evaluate metabolic control in patients. Reference: [place] Diabetes Association, Standards of Care in Diabetes -2020 In patients 70 years and older consider HbA1c target range of 7.0-7.5% (Reference: Miguel Adams et al. JAMDA. 2012) The Sebia assay for the measurement of HbA1c is a National Glycohemoglobin Standardization Program (NGSP) certified method. Blood BLOOD SPECIMEN / Unknown Venipuncture / Unknown 07/26/2022 4:40 AM CDT 07/26/2022 4:49 AM CDT us Sree Wade MD LAB - CHEMISTRY ORDERABLES Mai escalona Result [facility] [address] [place] [address], [facility] [phone] from Last 3 Months or Most Recently Relevant to Health [place] [address] MEDICARE [facility] MEDICARE MEDICARE Advance Directives Documents on File Type Date Recorded Patient [employer] Essbase Developer Expl anation Adv Directive/Living Will/POA 08/15/2022 11:36 [...] 3:50 PM 10/30/2021 11:48 AM Care Teams Tourist Cabin Keeper Relationship Specialty Start Date End Date Justen Singer MD [address] [place] [address] [address] [place] [address] PCP - General 02/14/20
--- OUTSIDE RECORDS SUMMARY | 2024-10-17 16:27 | XMS_ITS | Clinical Summary ---
Author Organization [facility] Address [address] [place] [address] Phone Care Team Providers Care Medical Territory Manager Name Role Phone Justen Singer MD Primary Care Provider [phone] Allergies Active Allergy Reactions Criticality Noted Date [...] Comments Blood Pressure 173/60 04/24/2020 9:15 AM PRINCIPAL WEB DEVELOPER Pulse 59 04/24/2020 6:13 AM PRINCIPAL WEB DEVELOPER Temperature 36.6 C (97.8 F) 04/24/2020 6:13 AM PRINCIPAL WEB DEVELOPER Respiratory Rate 17 04/24/2020 9:15 AM PRINCIPAL WEB DEVELOPER Oxygen Saturation 97% 04/24/2020 9:15 AM PRINCIPAL WEB DEVELOPER Inhaled Oxygen Concentration - - Weight 68 kg (150 lb) 04/24/2020 6:13 AM PRINCIPAL WEB DEVELOPER Height 160 cm (5' 3) 04/24/2020 6:13 AM PRINCIPAL WEB DEVELOPER Body Mass Index 26.57 04/24/2020 6:13 AM PRINCIPAL WEB DEVELOPER Plan of Treatment Health Maintenance Due Date [...] 50+ YEA RS (2 of 2 - PPSV23, PCV20, or PCV21) 09/04/2020 07/10/2020 DIABETES HBA1C Q 6 MONTHS 01/26/2023 07/26/2022, 02/2022 INFLUENZA VACCINE (#1) 2024 , 11/23/2019, 01/06/2019, Additional history exists Medical Devices Implanted Type Area Child Development Director Device Identifier Shelf Expiration Date Model / Serial / Lot 3 Cardiac Stents Left Renal Stent Explanted Type Area Child Development Director Device Identifier Shelf Expiration Date Model / Serial / Lot Cath Pd Howard Curl 2cuff [id number] - [id number] Implanted:Qty : 1 on 01/25/2020 by Rafita Bartlett MD at [facility] Explanted:Qty : 1 on 04/24/2020 by Hawk Angel MD at [facility] Catheter N/A: Abdomen [employer] - COVIDIEN 09/12/2024 [id number] / / [id number] Insurance MEDICARE PART A AND B [facility] Advance Directives For more information, please contact: [phone] * Full Code (Latest Code Status on File) Date Activated Date Inactivated Comments 04/24/2020 7:08 AM 04/24/2020 11:55 AM * Full Code Date Activated Date Inactivated Comments 04/24/2020 5:39 AM 04/24/2020 7:07 AM * Full Code Date Activated Date Inactivated Comments 01/25/2020 5:51 AM 01/26/2020 7:33 PM Care Teams Medical Territory Manager Relationship Specialty Start Date End Date Justen Singer MD PCP - General Family Practice 01/25/20
[2024-10-17] MEDS: SODIUM CHLORIDE 0.9% IV 250 ML 999 ML IV CONT (16:47)
[2024-10-17 16:54] LABS: Hematocrit 41.0 % (37.0-47.0); Hemoglobin 12.8 g/dL (12.0-15.0); Immature Granulocyte Percent A 1.8 % (0-0.5); Lymphocytes Absolute Auto 1.11 K/mm3 (0.9-3.2); Mean Corpuscular HGB Conc 31.2 g/dl (32-36); Mean Corpuscular Hemoglobin 30.3 pg (26-34); Mean Corpuscular Volume 96.9 fl (80-100); Nucleated Red Blood Cells Absolute Auto 0.000 K/mm3 (0.0-0.012); Nucleated Red Blood Cells Perc 0.0 % (0.0-0.2); Platelet Count Result 188 k/mm3 (150-375); Red Blood Count 4.23 M/mm3 (4.2-5.4); White Blood Count 14.7 K/mm3 (4.5-10.0)
[2024-10-17 17:34] LABS: Alanine Aminotransferase 34 U/L (6-35); Albumin Level 4.3 g/dL (3.5-5.1); Alkaline Phosphatase 99 U/L (38-126); Anion Gap 14 mmol/L (4-12); Aspartate Amino Transferase 25 U/L (14-36); Bilirubin,Total 0.9 mg/dL (0.2-1.3); Blood Urea Nitrogen 25 mg/dL (7-17); Calcium 8.9 mg/dL (8.4-10.2); Carbon Dioxide 25 mmol/L (22-30); Chloride 95 mmol/L (98-107); Estimated CRCL calculation 10 ml/min; Estimated Glomerular Filt Rate 11; Glucose 200 mg/dL (65-110); Potassium 4.3 mmol/L (3.4-5.0); Sodium 134 mmol/L (137-145); Total Protein 7.3 g/dL (6.3-8.2)
--- NOTE | 2024-10-17 17:45 | ED_ITS ---
HPI - General Adult General Chief complaint: Recheck/Abnormal Lab/Rx Stated complaint: lethargic Time Seen by Provider: 10/17/24 16:01 Source: patient Mode of arrival: EMS Limitations: no limitations History of Present Illness HPI narrative: 79-year-old with history of diastolic CHF, ESRD on hemodialysis, diabetes here with the complaints of shortness of breath and confusion ,she had dialysis earlier . she was found to be hypotensive , was given 100 ml of NS Enroute to the hospital . She denies any chest pain , fever or chills. Onset (ago): hour(s) (1) Severity: moderate Relieving factors: none Exacerbating factors: none Associated symptoms: denies other symptoms Related Data Home Medications ?Medication ?Instructions ?Recorded ?Confirmed ?Last Taken ?Type acetaminophen 325 mg capsule 650 mg PO QID PRN pain 03/11/24 08/25/24 Unknown History bisacodyl 10 mg rectal suppository 10 mg RECTAL DAILY PRN constipation 03/11/24 08/25/24 Unknown History ergocalciferol (vitamin D2) 1,250 1,250 mcg PO WEEKLY 03/11/24 08/25/24 03/09/24 History mcg (50,000 unit) capsule cholestyramine-aspartame 4 gram 1 ea PO TID 04/01/24 08/25/24 Unknown History oral powder for susp in a packet (Cholestyramine Light) magnesium citrate (Citrate of 296 ml PO DAILY PRN constipation 04/01/24 08/25/24 Unknown History Magnesia oral) magnesium hydroxide 400 mg/5 mL 30 ml PO DAILY PRN constipation 04/01/24 08/25/24 Unknown History oral suspension (Bo Milk of Magnesia) buspirone 5 mg tablet 5 mg PO TID 07/13/24 08/25/24 Unknown History Allergies Allergy/AdvReac Type Severity Reaction Status Date / Time cortisone Allergy Intermediate Dyspnea / Verified 08/25/24 10:44 SOB Penicillins Allergy Intermediate Dyspnea / Verified 08/25/24 10:44 SOB ceftriaxone (From Rocephin) Allergy Difficulty Verified 08/25/24 10:44 Breathing Review of Systems 2 Review of Systems: All systems reviewed & are unremarkable except as noted in HPI and below Constitutional: Constitutional: Reports no additional constitutional complaints Eyes: Eyes: Reports no additional eye complaints ENT: Reports system reviewed and no additional complaints, except as documented Cardiovascular: Cardiovascular: Reports no additional cardiovascular complaints Respiratory: Respiratory: Reports as per HPI Musculoskeletal: Musculoskeletal: Reports no additional musculoskeletal complaints Integumentary/Breasts: Skin/Breast: Reports system reviewed and no additional complaints, except as docu PMFSH Past Medical History Medical History Pubic ramus fracture Diastolic dysfunction Echocardiogram October 2022: EF greater than 70% mildly increased left ventricular wall thickness, grade 1 diastolic dysfunction, patent foramen ovale visualized on agitated saline mild mitral valve regurgitation, mild tricuspid valve regurgitation mild pulmonary hypertension with RVSP of 37 Peripheral autonomic neuropathy due to diabetes mellitus Osteomyelitis of toe of left foot COVID-19 virus infection Renal osteodystrophy Erythropoietin deficiency anemia End-stage renal disease on hemodialysis Thursday Normal colonoscopy (08/2019) Shingles (1991) Gastroesophageal reflux disease Restless leg syndrome Renal cell carcinoma (2004) Obstructive sleep apnea No longer using CPAP after 40 lb weight loss. Coronary artery disease History of stent x3. Anemia of chronic disease Pericardial effusion (01/2020) Small pericardial effusion on echocardiogram, felt to be related to uremia. Peripheral vascular disease Crohn's disease History of kidney stones Peritonitis (01/2020) Surgical History Surgical History Amputation toe Left 2nd toe. History of complete ray amputation of second toe of left foot History of complete ray amputation of second toe of right foot History of cholecystectomy History of appendectomy History of foot surgery Repair of left foot fracture with pinning. History of partial nephrectomy (2004) Left partial nephrectomy for kidney cancer. History of tonsillectomy History of bilateral carpal tunnel release History of hysterectomy (1976) With cystocele and rectocele repairs. History of cardiac catheterization With stent x3. History of cystoscopy With ureteral stents for kidney stones. History of colonoscopy Family History Family History Father Renal cell carcinoma Acute myocardial infarction Cerebrovascular accident Colon polyp Heart disease Hypertension Mother Lung cancer Acute myocardial infarction Cerebrovascular accident Depression Heart disease Hypertension Son Asthma Social History Social History Social History: Patient is retired. 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 She had 1 son who at 50 years old heart attack. She has a 2nd son who is still living and he was her surrogate decision maker. To smoke 1 pack of cigarettes per day for about 30 years. She quit smoking in 1995. She denies any alcohol use or illicit substance use. She is living in [facility]. Surrogate medical decision maker: Dong Maher, son. Code status: DNR/DNI Smoking packs per day: 0.5 Smoking cigarettes per day: 10.0 Years smoked: 10 Smoking pack-years: 5.00 Smoking status: Former smoker Tobacco type: cigarettes Second hand tobacco smoke exposure: No Smoking end date: 03/16/93 Alcohol intake: never Substance use: never Do You Feel Safe in your Home?: Yes Lack of Transportation: No Lack of Food: Never True Current Housing: I Have Housing Concerned About Future Housing: No Difficulty Paying Gas/Electric Bills: No Difficulty Paying for Meds: No Currently Unemployed: No Education: High School Diploma/GED Difficulty w/ Childcare or Family Care: No Living arrangements: alone Additional living arrangements comments: , lives in [place]. 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 Spiritual care concerns: No Agree to blood products: Yes Exam 2 Narrative: GENERAL: Well-appearing, well-nourished, and in no acute distress. HEAD: Normocephalic, atraumatic. EYES: PERRLA and EOMI. ENT: Nares clear, no rhinorrhea NECK: Supple. CHEST: Clear to auscultation. No respiratory distress. HEART: Regular rate and rhythm. No murmur heard. Normal peripheral pulses. ABDOMEN: Soft, nontender, nondistended, normal active bowel sounds. EXTREMITIES: Normal range of motion. No edema. SKIN: Warm, dry, no rash. NEURO: No focal deficits. Alert and oriented x3. PSYCH: Normal mood and affect. Course Course Emergency Course: Her blood pressure improved with the 250 mL of fluid normal saline bolus. Did inform her about the lab work and x-ray 5 good complaining of for SUKUMAR horses in the lower extremity suspect most likely from her dialysis. Vital Signs Vital signs: Vital Signs Temperature 36.3 C L 10/17/24 16:00 Pulse Rate 81 10/17/24 16:00 Respiratory Rate 16 10/17/24 16:00 Blood Pressure 101/44 L 10/17/24 16:00 Pulse Oximetry 98 10/17/24 16:00 Oxygen Delivery Room Air 10/17/24 16:00 Temperature 36.3 C L 10/17/24 16:00 Pulse Rate 84 10/17/24 16:46 Respiratory Rate 20 10/17/24 16:46 Blood Pressure 112/68 10/17/24 16:45 Pulse Oximetry 96 10/17/24 16:25 Oxygen Delivery Room Air 10/17/24 16:00 Medical Decision Making Differential Diagnosis Differential Diagnosis: Dehydration, septicemia, pneumonia, Medical Records Medical records reviewed: Yes I reviewed the external patient's medical records. Vital Signs Vital Signs: Vital Signs Temperature 36.3 C L 10/17/24 16:00 Pulse Rate 81 10/17/24 16:00 Respiratory Rate 16 10/17/24 16:00 Blood Pressure 101/44 L 10/17/24 16:00 Pulse Oximetry 98 10/17/24 16:00 Oxygen Delivery Room Air 10/17/24 16:00 Temperature 36.3 C L 10/17/24 16:00 Pulse Rate 84 10/17/24 16:46 Respiratory Rate 20 10/17/24 16:46 Blood Pressure 112/68 10/17/24 16:45 Pulse Oximetry 96 10/17/24 16:25 Oxygen Delivery Room Air 10/17/24 16:00 Lab Data 10/17/24 16:44 10/17/24 17:14 Labs: Lab Results 10/17/24 10/17/24 Range/Units 16:44 17:14 WBC 14.7 H (4.5-10.0) K/mm3 RBC 4.23 (4.2-5.4) M/mm3 Hgb 12.8 (12.0-15.0) g/dL Hct 41.0 (37.0-47.0) % MCV 96.9 (80-100) fl MCH 30.3 (26-34) pg MCHC 31.2 L (32-36) g/dl RDW 15.9 H (11.5-14.5) % Plt Count 188 (150-375) k/mm3 MPV 10.0 (7.4-10.4) fl Immature Gran % (Auto) 1.8 H (0-0.5) % Neut % (Auto) 79.7 H (45.5-73.1) % Lymph % (Auto) 7.6 L (18.3-44.2) % Barry % (Auto) 9.0 H (2.6-8.5) % Eos % (Auto) 1.6 (0-4.4) % Baso % (Auto) 0.3 (0.2-1.2) % Lymph # (Auto) 1.11 (0.9-3.2) K/mm3 Barry # (Auto) 1.3 H (0.1-0.6) K/mm3 Eos # (Auto) 0.2 (0-0.3) K/mm3 Baso # (Auto) 0.1 (0.0-0.1) K/mm3 Abs Immat Gran (auto) 0.27 H (0.00-0.031) K/mm3 Absolute Neuts (auto) 11.7 H (1.3-6.7) K/mm3 Absolute Nucleated RBC 0.000 (0.0-0.012) K/mm3 Nucleated RBC % 0.0 (0.0-0.2) % Sodium 134 L (137-145) mmol/L Potassium 4.3 (3.4-5.0) mmol/L Chloride 95 L (98-107) mmol/L Carbon Dioxide 25 (22-30) mmol/L Anion Gap 14 H (4-12) mmol/L BUN 25 H (7-17) mg/dL Creatinine 3.97 H (0.7-1.0) mg/dL Estim Creat Clear Calc 10 ml/min Estimated GFR 11 L (59 - ) Glucose 200 H (65-110) mg/dL Calcium 8.9 (8.4-10.2) mg/dL Total Bilirubin 0.9 (0.2-1.3) mg/dL AST 25 (14-36) U/L ALT 34 (6-35) U/L Alkaline Phosphatase 99 (38-126) U/L Total Protein 7.3 (6.3-8.2) g/dL Albumin 4.3 (3.5-5.1) g/dL Imaging Data Radiologist's impression: ITS Impressions Chest X-Ray 10/17/24 16:46 IMPRESSION: 1. No significant interval change in chronic streaky and linear opacities in bilateral mid and lower lung zones and favor atelectasis/scarring over pneumonia. 2. Borderline heart size. ECG Data EKG #1: ECG completion date: 10/17/24 ECG completion time: 18:07 EKG Interpretation: normal rate (83), sinus rhythm, no ST changes, NL axis and no acute changes Discharge Plan Discharge Clinical Impression: Hypotension of hemodialysis Patient Disposition: NH Senior Care/Asst Living Condition: Stable Instructions: Hypotension (DC) Additional Instructions: continue home medications, follow with your doctor. Patient Language: Sinhala Prescriptions: No Action dicyclomine 20 mg tablet 20 mg PO TID Qty: 90 5RF loperamide 2 mg tablet 4 mg PO QID PRN (Reason: loose stool) Qty: 100 5RF Cholestyramine Light 4 gram powder 4 g PO TID Qty: 239.4 5RF Rx Instructions: administer w/meal; avoid other meds within 1hr before or 4-6hr after dose budesonide 9 mg tablet,delayed and ext.release 9 mg PO DAILY Qty: 30 1RF escitalopram oxalate 10 mg tablet 10 mg PO DAILY Qty: 30 5RF acetaminophen 325 mg capsule 650 mg PO QID PRN (Reason: pain) bisacodyl 10 mg suppository 10 mg RECTAL DAILY PRN (Reason: constipation) ergocalciferol (vitamin D2) 1,250 mcg (50,000 unit) capsule 1,250 mcg PO WEEKLY Patient Comments: On Wednesdays loperamide 2 mg tablet 2 mg PO QID PRN (Reason: loose stool) Qty: 20 0RF cyclobenzaprine 5 mg tablet 5 mg PO TID PRN (Reason: muscle spasm) Qty: 10 0RF magnesium citrate [Citrate of Magnesia] Solution 296 ml PO DAILY PRN (Reason: constipation) magnesium hydroxide [Bo Milk of Magnesia] 400 mg/5 mL suspension 30 ml PO DAILY PRN (Reason: constipation) cholestyramine-aspartame [Cholestyramine Light] 4 gram powder in packet 1 ea PO TID hydrocodone-acetaminophen 5-325 mg tablet 1 tablet PO Q6H PRN (Reason: pain) Qty: 14 0RF atorvastatin 40 mg tablet 40 mg PO DAILY Qty: 90 2RF bupropion HCl 150 mg tablet extended release 24 hr 150 mg PO QAM Qty: 90 1RF diclofenac sodium [Voltaren Arthritis Pain] 1 % gel 2 g topical BID PRN (Reason: knee pain) Qty: 200 5RF Rx Instructions: apply to single elbow, wrist or hand; for hand includes palm/fingers/back of hand levetiracetam 500 mg tablet 500 mg PO Q12H Qty: 180 1RF mirtazapine 30 mg tablet 30 mg PO QHS Qty: 90 1RF pantoprazole 40 mg tablet,delayed release (DR/EC) 40 mg PO QAM Qty: 90 1RF ropinirole 0.5 mg tablet 0.5 mg PO BID Qty: 180 1RF clobetasol 0.05 % cream See Rx Instructions .ROUTE .COMPLEX Qty: 30 0RF Dose Instruction: APPLY TO AFFECTED AREAS TWICE DAILY Rx Instructions: APPLY TO AFFECTED AREAS TWICE DAILY buspirone 5 mg tablet 5 mg PO TID hydrocodone-acetaminophen 5-325 mg tablet 1 tablet PO QID PRN (Reason: pain) Qty: 120 0RF Follow-up/Referrals: Justen Singer MD [Primary Care Provider] - Time of Disposition: 18:06
[2024-10-17] MEDS: MORPHINE SULFATE (*CRX) 2 MG/ML INJ IV PUSH (18:07)
== END 2024-10-17 19:03 ==
PROVIDERS: Emergency Provider Family Medicine; PCP Family Medicine Adolescent Medicine
DX: I95.3 Hypotension of hemodialysis (principal); R94.31 Abnormal electrocardiogram [ECG] [EKG]; N18.6 End stage renal disease; Z99.2 Dependence on renal dialysis; N25.0 Renal osteodystrophy; D64.9 Anemia, unspecified; K21.9 Gastro-esophageal reflux disease without esophagitis; G25.81 Restless legs syndrome; G47.30 Sleep apnea, unspecified; I25.10 Atherosclerotic heart disease of native coronary artery without angina pectoris; Z87.442 Personal history of urinary calculi; Z87.891 Personal history of nicotine dependence
CPT/HCPCS: 36415; 71045; 80053; 85025; 93005; 96361; 96374; 99284; J2270; J7050

== ENCOUNTER 2024-11-09 15:43 | Emergency (ER) | payer MEDICARE, SELFPAY ==
--- OUTSIDE RECORDS SUMMARY | 2024-06-13 05:35 | XMS_ITS | Continuity of Care Document ---
Author Organization [facility] Address [address] [place] [address] Phone Care Team Providers Care Sap Abap Developer Name Role Phone Fabián MODI, Paulo Unavailable Unavailabl e Allergies, Adverse Reactions, Alerts [...] dialysis circuit Mod sed same phys/qhp 5/>yrs CONTRAST, 300/ML, [...] Diagnoses Date Provider Providers Copied on Encounter [facility], [address] [place], [place], [id number], tel:[phone] [facility] No Information Fabián Bates . [address] [facility] [place], [id number] , . tel: [phone] [facility], [address] [place], [place], [id number], [place] tel:[phone] [facility] Compression of VeinEnd stage renal disease May-2 5 [place] Paulo . [address] [place] [address], [id number] , . tel:[phone] Referring Provider: Jamshid Owens, [address] [place] [address], [id number]. tel:[phone] [facility], [address] [place] [address], [id number], [place] tel:[phone] [facility] Compression of VeinEnd stage renal disease May-2 5 [place] Paulo . [address] [place] [address], [id number] , [place]. tel:[phone] Referring Provider: Jamshid Owens, [address] [place] [address], [id number]. tel:[phone] [facility], [address] [place] [address], [id number], [place] tel:[phone] [facility] Stricture of ArteryEnd stage renal disease Oct-0 4 [place] Paulo . [address] [place] [address], [id number] , [place]. tel:[phone] Referring Provider: Jamshid Owens, [address] [place] [address], [id number]. tel:[phone] [facility], [address] [place] [address], [id number], [place] tel:[phone] [facility] End stage renal diseaseStricture of Artery Oct-0 4 [place] Paulo . [address] [place] [address], [id number] , [place]. tel:[phone] Referring Provider: Jamshid Owens, [address] [place] [address], [id number]. tel:[phone] [facility], [address] [place] [address], [id number], tel:[phone] [facility] Compression of VeinEnd stage renal disease Sep-0 4 Fabián Salmerondro . [address] [place], [place], [id number] , [place]. tel:[phone] Referring Provider: Jamshid Owens, [address] [place] [address], [id number]. tel:[phone] [facility], [address] [place], [place], [id number], tel:[phone] [facility] End stage renal diseaseCompression of Vein Sep-0 4 Fabián Salmerondro . [address] [place], [place], [id number] , [place]. [phone] Referring Provider: Jamshid Owens, [address] [place] [address], [id number]. tel:[phone] As per patient privacy policy some of the clinical information may not be visible. Family History Family Member Type Diagnosis Age At Onset No Information Payers Payer name Insurance type Covered constitution party ID Ok cisse(s) Medicare [place] MB [id number] [facility] Medigap BL [id number] Social History Type Description Quantity Date Captured Comments Sex Female Smoking Status No Information Gender Identity Female Chief Complaint And Reason For Visit No Information Reason For Referral Reason For Referral No Information Plan Of Treatment Date Type Action Status Appointment Layla Maher //LILIA WINTER 6 Month F/u BOOKED Future Order: Radiology Order Up per Body Flouroscopy ([id number]), Ordered on: Ordered Future Order: Radiology Order Up per Body Flouroscopy ([id number]), Ordered on: Ordered Future Order: Radiology Order Up per Body Flouroscopy ([id number]), Ordered on: Ordered History Of Present Illness Encounter Date Complaint History Of Prese nt Illness No Information Functional Status Date Functional Assessmen t No Information Instructions Date Instruction Additional Infor mation No Information Assessments Type Assessment Date No Information Patient Care Teams Name Effective Dates (start - stop) Status Members No Information
--- NOTE | ~2024-11-09 | CT_ITS ---
EXAMINATION: CT diagnostic chest wo con DATE: 11/09/2024 18:42 INDICATION: Eval PNA TECHNIQUE: Computed tomography (CT) of the chest was performed without intravenous contrast. Additional 3D reconstructions utilizing coronal maximum intensity projection (MIP) were performed. Automated exposure control and iterative reconstruction technique were employed. The dose-length product was 15 8.49 mGy-cm. COMPARISON: PET/CT dated 03/01/[address] dated 02/17/2024 FINDINGS: There are a couple 4 mm nodules at the superior segment of the left lower lobe. Linear bands of discoid atelectasis/scarring in the bilateral mid and lower lungs. No interval change in a 1.6 cm mass at the lateral basilar right lower lobe which was without increased uptake on prior PET study and which is been present since 02/02/2020, likely benign. The previously seen and biopsied mass in the right middle lobe with pathology read as consistent with granulomatous disease has essentially resolved. No evident consolidation to suggest pneumonia. No pulmonary edema or pleural effusion. Heart size is normal. Atherosclerotic coronary artery calcification is. Thoracic aorta is normal in caliber. No pathol ogically enlarged thoracic lymphadenopathy. Moderate-sized sliding-type hiatal hernia. Cholecystectomy clips at the gallbladder fossa. Thoracic kyphosis with severe spondylosis and chronic mild anterior wedging of a few mid and lower thoracic vertebral bodies. IMPRESSION: 1. Couple new 4 mm nodule superior segment of the left lower lobe which are most likely infectious/inflammatory in etiology but would recommend 6 month follow-up low-dose noncontrast chest CT. 2. No change in a 1.6 similar chronic nodule in the right lower lobe is without evident increased FDG activity on prior PET/CT and most likely benign. 3. Moderate-sized sliding-type hiatal hernia. Reviewed, dictated and finalized at location A. IMPRESSION: 1. Couple new 4 mm nodule superior segment of the left lower lobe which are mos t likely infectious/inflammatory in etiology but would recommend 6 month follow -up low-dose noncontrast chest CT. 2. No change in a 1.6 similar chronic nodule in the right lower lobe is without evident increased FDG activity on prior PET/CT and most likely benign. 3. Moderate-sized sliding-type hiatal hernia.
--- NOTE | ~2024-11-09 | XR_ITS ---
EXAMINATION: XR chest 1V portable, 11/09/2024 17:20 CDT HISTORY: Weakness COMPARISON: Comparison 10/17/2024 Technique: Single view. Findings: Mild pulmonary venous congestion. Scattered bilateral small infiltrates. No pneumothorax. Mild cardiomegaly. Mediastinal and hilar contours are within normal limits. Bony thorax no acute abnormality. Impression: CHF. Superimposed early pneumonia suspected. The findings are progressed compared to the previous study. Reviewed, dictated and finalized at location A. Impression: CHF. Superimposed early pneumonia suspected. The findings are progressed compar ed to the previous study.
[2024-11-09 15:45] VITALS: BP 119/47; PULSE 110; RESP 16; O2SAT 97
--- NOTE | 2024-11-09 15:49 | ECG_ITS ---
Test Date: 2024-11-09 15:50:56 Measurements Intervals [place] Rate: 107 P: 267 ND: 170 QRS: -74 QRSD: 101 T: 45 QT: 361 QTc: 483 Interpretive Statements ECTOPIC ATRIAL TACHYCARDIA LEFT AXIS DEVIATION POSSIBLE LEFT ATRIAL ENLARGEMENT POOR R WAVE PROGRESSION CONSIDER INFERIOR INFARCT, AGE INDETERMINATE BASELINE ARTIFACT- I, II, III ABNORMAL ECG Compared to ECG 10/17/2024 16:51:38 Sinus rhythm no longer present Electronically Signed On 11-09-2024 15:55:38 CDT by Brennen Keenan D.O.
[2024-11-09 16:04] LABS: Hematocrit 39.6 % (37.0-47.0); Hemoglobin 12.4 g/dL (12.0-15.0); Immature Granulocyte Percent A 2.6 % (0-0.5); Lymphocytes Absolute Auto 1.44 K/mm3 (0.9-3.2); Mean Corpuscular HGB Conc 31.3 g/dl (32-36); Mean Corpuscular Hemoglobin 30.2 pg (26-34); Mean Corpuscular Volume 96.6 fl (80-100); Nucleated Red Blood Cells Absolute Auto 0.000 K/mm3 (0.0-0.012); Nucleated Red Blood Cells Perc 0.0 % (0.0-0.2); Platelet Count Result 280 k/mm3 (150-375); Red Blood Count 4.10 M/mm3 (4.2-5.4); White Blood Count 9.2 K/mm3 (4.5-10.0)
[2024-11-09 16:21] LABS: Alanine Aminotransferase 25 U/L (6-35); Albumin Level 4.5 g/dL (3.5-5.1); Alkaline Phosphatase 92 U/L (38-126); Anion Gap 11 mmol/L (4-12); Aspartate Amino Transferase 22 U/L (14-36); Bilirubin,Total 0.5 mg/dL (0.2-1.3); Blood Urea Nitrogen 11 mg/dL (7-17); Calcium 9.1 mg/dL (8.4-10.2); Carbon Dioxide 31 mmol/L (22-30); Chloride 96 mmol/L (98-107); Estimated CRCL calculation 13 ml/min; Estimated Glomerular Filt Rate 14; Glucose 210 mg/dL (65-110); Potassium 3.7 mmol/L (3.4-5.0); Sodium 138 mmol/L (137-145); Total Protein 7.7 g/dL (6.3-8.2)
[2024-11-09] MEDS: SODIUM CHLORIDE 0.9% IV 1,000 ML 999 ML IV CONT (16:45)
[2024-11-09 17:02] LABS: Influenza A QL RT-PCR Negative (Negative); Influenza B QL RT-PCR Negative (Negative); RSV RNA, RT-PCR Negative (Negative); SARS-CoV-2 RNA PCR Negative (Negative)
--- OUTSIDE RECORDS SUMMARY | 2024-11-09 17:08 | XMS_ITS | Clinical Summary ---
Author Organization [facility] Address [address] [address] Phone Care Team Providers Care Fingernail Sculptor Name Role Phone Justen Bonds MD Primary Care Provider [phone] Allergies Active Allergy Reactions Criticality Noted Date [...] Vaccine (#1) 2024 01/06/2019, 2012 Insurance MEDICARE [facility] PM INTERFACED INSURANCE Care Teams Fingernail Sculptor Relationship Specialty Start Date End Date Justen Bonds MD [phone] [address] PCP - General Family Medicine 01/10/19
--- OUTSIDE RECORDS SUMMARY | 2024-11-09 17:08 | XMS_ITS | Patient Health Record ---
Author Organization [facility] Address [address] [place] [address] Care Team Providers Care Metal Hardener Name Role Phone Kailee Lan Unavailable [phone] Reason For Referral No Information Medications Medication SIG (Take, Route, Frequency, Duration) Notes Start Date End Date Status Sulfamethoxazole-Trimet hoprim 400-80 MG Tablet Oral 06/24/2023 Acti ve Cyclobenzaprine HCl 5 MG Tablet Oral 06/24/2023 Active Cholecalciferol 1.25 MG (41163 UT) Capsule Oral 06/24/2023 Active Atorvastatin Calcium 40 MG Tablet Oral 06/24/2023 Active Paxlovid (300/100) 20 x 150 MG & 10 x 100MG Tablet Therapy Pack Oral *Reorder from [employer] for eRx and Interaction Alerts* 06/24/2023 Active Sertraline HCl 100 MG Tablet Oral 06/24/2023 Active busPIRone HCl 10 MG Tablet Oral 06/24/2023 Active Ciprofloxacin HCl 500 MG Tablet Oral 06/24/2023 Active buPROPion HCl ER (XL) 300 MG Tablet Extended Release 24 Hour Oral 06/24/2023 Active Levothyroxine Sodium 75 MCG Tablet Oral 06/24/2023 Active amLODIPine Besylate 5 MG Tablet Oral 06/24/2023 Active rOPINIRole HCl 0.5 MG Tablet Oral 06/24/2023 Active buPROPion HCl ER (XL) 150 MG Tablet Extended Release 24 Hour Oral 06/24/2023 Active Escitalopram Oxalate 10 MG Tablet Oral 06/24/2023 Active Lisinopril 40 MG Tablet Oral 06/24/2023 Active Metoprolol Tartrate 50 MG Tablet Oral 06/24/2023 Active oxyCODONE HCl 10 MG Tablet Oral 06/24/2023 Active Mirtazapine 30 MG Tablet Oral 06/24/2023 Active Pantoprazole Sodium 40 MG Tablet Delayed Release Oral 06/24/2023 Active Ergocalciferol 1.25 MG (23705 UT) Capsule Oral 06/24/2023 Active levETIRAcetam 500 MG Tablet Oral 06/24/2023 Active Vancomycin HCl 125 MG Capsule Oral 06/24/2023 Active Cholestyramine Light 4 GM/DOSE Powder Oral 06/24/2023 Active levoFLOXacin 750 MG Tablet Oral 06/24/2023 Active Social History Social History Additional Details Category Social Info Options Details Migrated Social History Migrated Social History Alcohol Intake: None 04/27/2023,Tobacco Years: Never smoker 04/27/2023 Plan Of Treatment No Information Insurance Providers Payer Name Payer Address Payer Phone Subscriber Number Group Number Insured Name Patient Relationship to Insured Coverage Start Date Coverage End Date [facility] Medicare Supplement [address] [place] [address] [id number] LEV ANDERSON Self - patient is the insured Medical (General) History Surgical History Surgery Date(Month/Year) Removal of gallbladder (40667) Hysterectomy (04850) 05/14/1976 Appendectomy (63716) 06/03/1983 Cardiac stent 06/10/1999
--- OUTSIDE RECORDS SUMMARY | 2024-11-09 17:08 | XMS_ITS | Clinical Summary ---
Author Organization [facility] Address [facility] [place] [address] Care Team Providers Care Machine Setup Operator Name Role Phone Justen Singer MD Primary Care Prov ider Jamshid Joe MD Unavailable [phone] Alex Edgar MD Unavailable [phone] Allergies Active Allergy Reactions Criticality Noted [...] Take 75 mcg by mouth early childhood before breakfast Active Vitamin D2 1,250 mcg [...] renal disease ESRD (end stage renal disease) Encounters Date Type Department Care Team Description 11/01/2024 5:53 PM CDT - 11/01/2024 11:59 PM CDT Hospital Encounter [address] [address] Abdominal pain, unspecified abdominal location; Abdomen enlarged Discharge Disposition: Discharge to home or self care from Last 3 Months Immunizations Immunization Administration Dates Next Due Influenza, Trivalent, Preservative Free, Intramu scular 03/26/2012 Surgical History Surgery Date Site/Laterality Comments RI LAPAROSCOPY SURG PARTIAL NEPHRECTOMY Left Kidney Surgery Laparoscopic Partial Nephrectomy - oncocytoma (Added by TW Conv) APPENDECTOMY Appendectomy - (Added by TW Conv) HYSTERECTOMY Hysterectomy - (Added by TW Conv) FOOT FRACTURE SURGERY Treatment Of Foot Fracture - 2004 (Added by TW Conv) CHOLECYSTECTOMY Cholecystectomy - 2005 (Added by TW Conv) RI PRQ TRLUML CORONARY STENT W/ANGIO ONE ART/BRNCH [...] TW Conv) 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 Arteriosclerot ic [...] on file 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 Sex 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 Gender Identity Not on file Sexual Orientation Not on file Obstetrics History Last Filed Vital Signs Vital Sign Reading Time Taken Comments Blood Pressure 178/70 05/06/2022 9:26 AM DOUBLE NEEDLE STITCHER Pulse 73 05/06/2022 9:26 AM DOUBLE NEEDLE STITCHER Temperature 36.6 C (97.8 F) 08/26/2021 2:10 PM CDT Respiratory Rate 18 03/19/2020 8:41 PM DOUBLE NEEDLE STITCHER Oxygen Saturation 90% 05/06/2022 9:26 AM DOUBLE NEEDLE STITCHER Inhaled Oxygen Concentration - - Weight 73.9 kg (163 lb) 05/06/2022 9:26 AM DOUBLE NEEDLE STITCHER Height 160 cm (5' 3) 05/06/2022 9:26 AM DOUBLE NEEDLE STITCHER Body Mass Index 28.87 05/06/2022 9:26 AM DOUBLE NEEDLE STITCHER Plan of Treatment Health Maintenance Due Date Last Done Comments Albumin Creatinine Ratio, Urine 1945 Depression Screening 1945 Fall Risk Assessment 1945 Osteoporosis Screening-Bone Density Scan 1945 Dilated Eye Exam 1945 Foot Exam 1945 Hepatitis B Screening 05/30/1963 Zoster Vaccine (1 of 2) 05/30/1995 Well Visit 65+ 2010 DTaP/Tdap/Td Vaccine (1 - Tdap) 09/28/2012 3 Pneumococcal vaccine 65+ (2 of 2 - PPSV23, PCV20, or PCV21) 09/04/2020 07/10/2020 eGFR 11/23/2021 11/23/2020, 01/0 06/2020, 03/15/2020 Hemoglobin A1C 01/26/2023 07/26/2022, 0804/2021, 11/23/2020 Lipid Panel 07/29/2023 07/28/2022, 11/23/2020 Covid-19 Vaccine (2023-2 5 season) 2023 01/03/2021, 06/06/2020, 05/15/2020 Influenza Vaccine (#1) 2024 , 11/29/2019, 11/23/2019, Additional history exists Hepatitis C Screening Completed 11/23/2020 Procedures Procedure Name Priority Date/Time Associated Diagnosis Comments US ABDOMEN COMPLETE Schedule Routine, Read Routine (OP Routine) 11/01/2024 6:45 PM CDT Abdominal pain, unspecified abdominal location Abdomen enlarged HEPATITIS C ANTIBODY Routine 11/23/2020 12:05 PM CDT End stage renal disease (HCC) EGFR Routine 11/23/2020 12:05 PM CDT End stage renal disease (HCC) HEMOGLOBIN A1C Routine 11/23/2020 12:05 PM CDT End stage renal disease (HCC) LIPID PANEL Routine 11/23/2020 12:05 PM CDT End stage renal disease (HCC) from Last 3 Months or Most Recently Relevant to Health Maintenance Results * US Abdomen Complete (11/01/2024 6:45 PM CDT) Anatomical Region Laterality Modality Abdomen N/A Ultrasound 11/02/2024 1:54 AM CDT Narrative 11/02/2024 1:56 AM CDT EXAM DESCRIPTION: US ABDOMEN COMPLETE REASON FOR STUDY: Abdominal pain, enlarged abdomen today TECHNIQUE: Grayscale images acquired of the abdomen and recorded on PACS. Additional selected color Doppler and spectral images recorded. COMPARISON: None FINDINGS: PANCREAS: The pancreas was obscured by bowel gas. LIVER: The liver demonstrates an increase in echotexture with attenuation of the ultrasound beam characteristic of fatty infiltration. No cystic or solid mass lesions were seen within the liver. The liver measures 18 cm in greatest diameter. GALLBLADDER: Gallbladder surgically absent. BILIARY: There is no intrahepatic biliary ductal dilatation. The common bile duct was not visualized. INFERIOR VENA CAVA: Not seen. AORTA: Not seen. RIGHT KIDNEY: The right kidney was poorly visualized. LEFT KIDNEY: Left kidney was poorly visualized. SPLEEN: Not visualized. PERITONEAL AND PLEURAL SPACES: No ascites or effusions. OTHER: No other significant finding. IMPRESSION: 1. Fatty infiltration of the liver. 2. Surgical absence of the gallbladder. 3. Nonvisualization of the pancreas, common bile duct, aorta, inferior vena cava, spleen and kidneys. THIS IS AN ELECTRONICALLY VERIFIED FINAL REPORT 11/02/2024 1:56 AM - Electronically signed by Dipak Bruno M.D. KT T: Report ID: [id number] Reading Location: [place] [address] Procedure Note Dipak Bruno MD - 11/02/2024 EXAM DESCRIPTION: US ABDOMEN COMPLETE REASON FOR STUDY: Abdominal pain, enlarged abdomen today TECHNIQUE: Grayscale images acquired of the abdomen and recorded on PACS. Additional selected color Doppler and spectral images recorded. COMPARISON: None FINDINGS: PANCREAS: The pancreas was obscured by bowel gas. LIVER: The liver demonstrates an increase in echotexture withattenuation of the ultrasound beam characteristic of fatty infiltration. No cystic orsolid mass lesions were seen within the liver. The liver measures 18 cm ingreatest diameter. GALLBLADDER: Gallbladder surgically absent. BILIARY: There is no intrahepatic biliary ductal dilatation. The common bile duct was not visualized. INFERIOR VENA CAVA: Not seen. AORTA: Not seen. RIGHT KIDNEY: The right kidney was poorly visualized. LEFT KIDNEY: Left kidney was poorly visualized. SPLEEN: Not visualized. PERITONEAL AND PLEURAL SPACES: No ascites or effusions. OTHER: No other significant finding. IMPRESSION: 1. Fatty infiltration of the liver. 2. Surgical absence of the gallbladder. 3. Nonvisualization of the pancreas, common bile duct, aorta, inferiorvena cava, spleen and kidneys. THIS IS AN ELECTRONICALLY VERIFIED FINAL REPORT 11/02/2024 1:56 AM - Electronically signed by Dipak Bruno M.D. KT T: Report ID: [id number] Reading Location: [id number] us Jamshid Joe MD IMG US PROCEDURES Final Resu lt * (ABNORMAL) eGFR (11/23/2020 12:05 PM CDT) eGFR 8(L) 90 - 130 mL/min/1.7 3 m2 [facility] Comment: Interpretive Data Reference Interval Normal [...] MD LAB BLOOD ORDERABLES Final Result [facility] Department [place] [address] * Hepatitis C antibody (11/23/2020 12:05 PM CDT) Pathologist [facility] Hep C Ab Nonreactive Nonreactive [facility] Comment:Antibodies to HCV no t detected. Does NOT exclude the possibility of recent exposure to HCV. Blood 11/23/2020 12:0 5 PM CDT 11/23/2020 12:20 PM CDT Jani Rose MD LAB MICROBIOLOGY - GENERAL ORDERABLES Edited Result - Final Performing Organization Address [place] Co de Phone Number [facility] Department [place] [address] * (ABNORMAL) Hemoglobin A1c (11/23/2020 12:05 PM CDT) Hgb A1C 6.1(H) 4.0 - 5.6 % [facility] Estimated Average Glucose 128 mg/dL [facility] Comment: The ADA recommends reporting an [...] BLOOD ORDERABLES Final Result Performing Organization Address [place] Co de Phone Number [facility] Department [place] [address] * (ABNORMAL) Lipid panel (11/23/2020 12:05 PM CDT) Cholesterol 148 30 - 199 mg/dL [facility] Comment: Interpretive Data Ages < [...] revised on 2017. Triglycerides 303(H) <=149 mg/dL [facility] Comment: Interpretive Data Ages < or [...] on 2017. HDL 41 >=40 mg/dL [facility] Comment: Interpretive Data Ages < or = [...] on 2017. LDL, calculated 46 <=129 mg/dL [facility] Comment: Interpretive Data Ages < or = [...] on 2017. Non-HDL Cholesterol 107 mg/dL [facility] Comment: Interpretive Data Ages < or = [...] revised on 2017. Chol/HDL ratio 4 [facility] WANG Blood 11/23/2020 12:0 5 PM CDT 11/23/2020 12:20 PM CDT us Jani Rose MD LAB BLOOD ORDERABLES Final Result [facility] Department [place] [address] from Last 3 Months or Most Recently Relevant to Health Maintenance Insurance MEDICARE [facility] MEDICARE [facility] MEDICARE IDPA Care Teams Machine Setup Operator Relationship Specialty Start Date End Date Justen Singer MD PCP - General Family Medicine 08/27/20 Jamshid Joe MD Referring Physician Nephrology 10/08/20 Alex Edgar MD Referring Physician Cardiology 10/08/20
--- OUTSIDE RECORDS SUMMARY | 2024-11-09 17:08 | XMS_ITS | Encounter Summary ---
Author Organization [facility] Address [address] [place] [address] Phone Care Team Providers Care Goat Farmer Name Role Phone Justen Singer MD Primary Care Prov ider Justen Singer MD Primary Care Prov ider Lita Elizabeth RN Unavailable Jamshid Joe MD Unavailable [phone] Alex Edgar MD Unavailable Encounter Details Date Type Department Care Team (Late st Contact Info) Description 12/15/2019 Telephone [facility] Cardiology [address] [facility] Advanced Medicine 8th [place] [address] [place] [address] Alex Edgar MD [address] [facility] [address] [place], [place] [id number] Social History Tobacco Use Types Packs/Day Years Used Date Smoking Tobacco: Former Smokeless Tobacco: Never Comments Unknown Sex and Gender Information Value Date Recorded Sex Assigned at Not on file 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 [employer] Gender Identity Not on file Sexual Orientation Not on file documented as of this encounter Plan of Treatment Not on file documented as of this encounter Visit Diagnoses Not on filedocumented in this encounter Additional Health Concerns Infection Onset Date Last Indicated Resolved Time COVID19 03/19/2020 03/19/2020 04/02/2020 3:07 AM BUSINESS ANALYST [employer] documented as of this encounter Care Teams Goat Farmer Relationship Specialty Start Date End Date Justen Singer MD PCP - General 03/27/17 08/26/20 Justen Singer MD PCP - General Family Medicine 08/27/20 Lita Elizabeth, RN [address] [phone] Registered Nurse Underground Repairer 08/27/20 Jamshid Joe MD [address] [address] Referring Physician Nephrology 10/08/20 Alex Edgar MD [address] [address] Referring Physician Cardiology 10/08/20 documented as of this encounter
--- OUTSIDE RECORDS SUMMARY | 2024-11-09 17:08 | XMS_ITS | Clinical Summary ---
Author Organization [facility] Address [address] [facility] [place] [address] Phone Care Team Providers Care Finishing Pan Operator Name Role Phone Justen Singer MD Primary Care Provider [phone] Allergies Active Allergy Reactions Criticality Noted Date [...] Comments Blood Pressure 173/60 04/24/2020 9:15 AM LIVESTOCK HANDLER Pulse 59 04/24/2020 6:13 AM LIVESTOCK HANDLER Temperature 36.6 C (97.8 F) 04/24/2020 6:13 AM LIVESTOCK HANDLER Respiratory Rate 17 04/24/2020 9:15 AM LIVESTOCK HANDLER Oxygen Saturation 97% 04/24/2020 9:15 AM LIVESTOCK HANDLER Inhaled Oxygen Concentration - - Weight 68 kg (150 lb) 04/24/2020 6:13 AM LIVESTOCK HANDLER Height 160 cm (5' 3) 04/24/2020 6:13 AM LIVESTOCK HANDLER Body Mass Index 26.57 04/24/2020 6:13 AM LIVESTOCK HANDLER Plan of Treatment Health Maintenance Due Date [...] 01/26/2023 07/26/2022, 02/2022 INFLUENZA VACCINE (#1) 2024 0, 11/23/2019, 01/06/2019, Additional history exists Medical Devices Implanted Type Area Electrical Sign Wirer Helper Device Identifier Shelf Expiration Date Model / Serial / Lot 3 Cardiac Stents Left Renal Stent Explanted Type Area Electrical Sign Wirer Helper Device Identifier Shelf Expiration Date Model / Serial / Lot Cath Pd Howard Curl 2cuff [id number] - [id number] Implanted:Qty : 1 on 01/25/2020 by Rafita Bartlett MD at [facility] Explanted:Qty : 1 on 04/24/2020 by Hawk Angel MD at [facility] Catheter N/A: Abdomen [employer] - COVIDIEN 09/12/2024 [id number] / / [id number] Insurance MEDICARE PART A AND B [facility] SUPP Advance Directives For more information, please contact: [phone] * Full Code (Latest Code Status on File) Date Activated Date Inactivated Comments 04/24/2020 7:08 AM 04/24/2020 11:55 AM * Full Code Date Activated Date Inactivated Comments 04/24/2020 5:39 AM 04/24/2020 7:07 AM * Full Code Date Activated Date Inactivated Comments 01/25/2020 5:51 AM 01/26/2020 7:33 PM Care Teams Finishing Pan Operator Relationship Specialty Start Date End Date Justen Singer MD PCP - General Family Practice 01/25/20
--- OUTSIDE RECORDS SUMMARY | 2024-11-09 17:08 | XMS_ITS | Clinical Summary ---
Author Organization [facility] [employer] Address [address] [place] [address] Care Team Providers Care Dental Equipment Repairer Name Role Phone Justen Singer MD Primary Care Provider + Source Comments [facility] [employer],non-owned Affiliates and Associated Physician Practices is amultiple site organization consisting of ambulatory clinics and hospital sitesin [place], [place], [place] and [place]. This disclosure is being madepursuant to the Care Everywhere program and may not contain all information available regarding this patient. 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 Treatment target values recommended by ADA and other clinical organizations should be used to evaluate metabolic control in patients. Reference: [place] [employer], Standards of Care in Diabetes [...] ORDERABLES Mai escalona Result [facility] [address] [place] [address], [facility] [phone] from Last 3 Months or Most Recently Relevant to [place] [address] MEDICARE [facility] MEDICARE MEDICARE Advance Directives Documents on File Type Date Recorded Patient Bomb Loader Expl anation Adv Directive/Living Will/POA 08/15/2022 11:36 [...] 3:50 PM 10/30/2021 11:48 AM Care Teams Dental Equipment Repairer Relationship Specialty Start Date End Date Justen Singer MD [address] [place] [address] [address] [place] [address] PCP - General 02/14/20
--- NOTE | 2024-11-09 19:05 | ED_ITS ---
HPI - General Adult General Chief complaint: Weakness Stated complaint: hypotensive Time Seen by Provider: 11/09/24 16:06 History of Present Illness HPI narrative: This is a 79-year-old female with end-stage renal disease on hemodialysis presenting for low blood pressures after dialysis. Patient says that she frequently it is too much fluid taken off at dialysis and develops cramps in her legs. This happened multiple times over the last several weeks. Today after undergoing dialysis she started to feel woozy and lightheaded and her blood pressure dropped. She was then sent to the hospital for evaluation. Blood pressure has since improved although it is still low. She is denying any complaints at this time such as headaches, fevers chest pain difficulty breathing abdominal pain or urinary symptoms. Related Data Home Medications ?Medication ?Instructions ?Recorded ?Confirmed ?Last Taken ?Type acetaminophen 325 mg capsule 650 mg PO QID PRN pain 08/25/24 Unknown History bisacodyl 10 mg rectal suppository 10 mg RECTAL DAILY PRN constipation 03/11/24 08/25/24 Unknown History ergocalciferol (vitamin D2) 1,250 1,250 mcg PO WEEKLY 03/11/24 08/25/24 03/09/24 History mcg (50,000 unit) capsule cholestyramine-aspartame 4 gram 1 ea PO TID 04/01/24 0 08/25/24 Unknown History oral powder for susp in a packet (Cholestyramine Light) magnesium citrate (Citrate of 296 ml PO DAILY PRN cons tipation 04/01/24 08/25/24 Unknown History Magnesia oral) magnesium hydroxide 400 mg/5 mL 30 ml PO DAILY PRN con stipation 04/01/24 08/25/24 Unknown History oral suspension (Bo Milk of Magnesia) buspirone 5 mg tablet 5 mg PO TID 07/13/24 5 Unknown History Allergies Allergy/AdvReac Type Severity Reaction Status Date / Time cortisone Allergy Intermediate Dyspnea / Verified 08/25/24 10:44 SOB Penicillins Allergy Intermediate Dyspnea / Verified 08/25/24 10:44 SOB ceftriaxone (From Rocephin) Allergy Difficulty Verified 08/25/24 10:44 Breathing PMFSH Past Medical History Medical History Pubic ramus fracture Diastolic dysfunction Echocardiogram October 2022: EF greater than 70% mildly increased left ventricular wall thickness, grade 1 diastolic dysfunction, patent foramen ovale visualized on agitated saline mild mitral valve regurgitation, mild tricuspid valve regurgitation mild pulmonary hypertension with RVSP of 37 Peripheral autonomic neuropathy due to diabetes mellitus Osteomyelitis of toe of left foot COVID-19 virus infection Renal osteodystrophy Erythropoietin deficiency anemia End-stage renal disease on hemodialysis Thursday Normal colonoscopy (08/2019) [place] (1991) Gastroesophageal reflux disease Restless leg syndrome Renal cell carcinoma (2004) Obstructive sleep apnea No longer using CPAP after 40 lb weight loss. Coronary artery disease History of stent x3. Anemia of chronic disease Pericardial effusion (01/2020) Small pericardial effusion on echocardiogram, felt to be related to uremia. Peripheral vascular disease Crohn's disease History of kidney stones Peritonitis (01/2020) Surgical History Surgical History Amputation toe Left 2nd toe. History of complete ray amputation of second toe of left foot History of complete ray amputation of second toe of right foot History of cholecystectomy History of appendectomy History of foot surgery Repair of left foot fracture with pinning. History of partial nephrectomy (2004) Left partial nephrectomy for kidney cancer. History of tonsillectomy History of bilateral carpal tunnel release History of hysterectomy (1976) With cystocele and rectocele repairs. History of cardiac catheterization With stent x3. History of cystoscopy With ureteral stents for kidney stones. History of colonoscopy Family History Family History Father Renal cell carcinoma Acute myocardial infarction Cerebrovascular accident Colon polyp Heart disease Hypertension Mother Lung cancer Acute myocardial infarction Cerebrovascular accident Depression Heart disease Hypertension Son Asthma Social History Social History Social History: Patient is retired. 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 She had 1 son who at 50 years old heart attack. She has a 2nd son who is still living and he was her surrogate decision maker. To smoke 1 pack of cigarettes per day for about 30 years. She quit smoking in 1995. She denies any alcohol use or illicit substance use. She is living in [facility]. Surrogate medical decision maker: Dong Maher, son. Code status: DNR/DNI Smoking packs per day: 0.5 Smoking cigarettes per day: 10.0 Years smoked: 10 Smoking pack-years: 5.00 Smoking status: Former smoker Tobacco type: cigarettes Second hand tobacco smoke exposure: No Smoking end date: 03/16/93 Alcohol intake: never Substance use: never Do You Feel Safe in your Home?: Yes Lack of Transportation: No Lack of Food: Never True Current Housing: I Have Housing Concerned About Future Housing: No Difficulty Paying Gas/Electric Bills: No Difficulty Paying for Meds: No Currently Unemployed: No Education: High School Diploma/GED Difficulty w/ Childcare or Family Care: No Living arrangements: alone Additional living arrangements comments: , lives in [place]. 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 Spiritual care concerns: No Agree to blood products: Yes Exam 2 Narrative: APPEARANCE: No apparent distress. Head: atraumatic. EYES: EOMI, NOSE: Atraumatic NECK: Trachea midline RESPIRATORY: No increased rate of breathing clear to auscultation CARDIOVASCULAR: RRR, no peripheral edema, dialysis access in left upper extremity ABDOMINAL: Non-distended soft nontender MUSCULOSKELETAl: No obvious deformities NEURO: Alert. Moving 4/4 extremities SKIN:: Warm, dry. Normal color PSYCHIATRIC: Normal affect Course Vital Signs Vital signs: Vital Signs Pulse Rate 110 H 11/09/24 15:45 Respiratory Rate 16 11/09/24 15:45 Blood Pressure 119/47 L 11/09/24 15:45 Pulse Oximetry 97 11/09/24 15:45 Oxygen Delivery Room Air 11/09/24 15:45 Pulse Rate 110 H 11/09/24 15:45 Respiratory Rate 16 11/09/24 15:45 Blood Pressure 119/47 L 11/09/24 15:45 Pulse Oximetry 97 11/09/24 15:45 Oxygen Delivery Room Air 11/09/24 15:45 Medical Decision Making [facility] Narrative Medical decision making narrative: -Course: 79-year-old female presenting low blood pressures after dialysis. Her only complaint is weakness. Blood pressures are soft on arrival. She has no other physical complaints. Patient given 1 L of fluid with significant improvement. Screening lab work/ infectious were negative. Her chest x-ray was initially read as CHF/pneumonia which does not fit her clinical picture. CT non-con was ordered which not show any evidence of pneumonia. On re-evaluation patient's blood pressure is improved. She is no longer tachycardic. She is requesting discharge. She will follow-up with Dr. Joe to discuss her dialysis regimen as she has been having significant difficulty with over the last several weeks. Given return precautions for fevers chest pain difficulty breathing weakness or abdominal pain. -DDX includes but is not limited to: Pneumonia, over-diuresis, UTI sepsis dehydration Vital Signs Vital Signs: Vital Signs Pulse Rate 110 H 11/09/24 15:45 Respiratory Rate 16 11/09/24 15:45 Blood Pressure 119/47 L 11/09/24 15:45 Pulse Oximetry 97 11/09/24 15:45 Oxygen Delivery Room Air 11/09/24 15:45 Pulse Rate 110 H 11/09/24 15:45 Respiratory Rate 16 11/09/24 15:45 Blood Pressure 119/47 L 11/09/24 15:45 Pulse Oximetry 97 11/09/24 15:45 Oxygen Delivery Room Air 11/09/24 15:45 Lab Data 11/09/24 15:59 11/09/24 15:59 Labs: Lab Results 11/09/24 11/09/24 Range/Units 15:59 16:22 WBC 9.2 (4.5-10.0) K/mm3 RBC 4.10 L (4.2-5.4) M/mm3 Hgb 12.4 (12.0-15.0) g/dL Hct 39.6 (37.0-47.0) % MCV 96.6 (80-100) fl MCH 30.2 (26-34) pg MCHC 31.3 L (32-36) g/dl RDW 15.2 H (11.5-14.5) % Plt Count 280 (150-375) k/mm3 MPV 8.8 (7.4-10.4) fl Immature Gran % (Auto) 2.6 H (0-0.5) % Neut % (Auto) 69.9 (45.5-73.1) % Lymph % (Auto) 15.7 L (18.3-44.2) % [place] % (Auto) 7.7 (2.6-8.5) % Eos % (Auto) 3.7 (0-4.4) % Baso % (Auto) 0.4 (0.2-1.2) % Lymph # (Auto) 1.44 (0.9-3.2) K/mm3 [place] # (Auto) 0.7 H (0.1-0.6) K/mm3 Eos # (Auto) 0.3 (0-0.3) K/mm3 Baso # (Auto) 0.0 (0.0-0.1) K/mm3 Abs Immat Gran (auto) 0.24 H (0.00-0.031) K/mm3 Absolute Neuts (auto) 6.4 (1.3-6.7) K/mm3 Absolute Nucleated RBC 0.000 (0.0-0.012) K/mm3 Nucleated RBC % 0.0 (0.0-0.2) % Sodium 138 (137-145) mmol/L Potassium 3.7 (3.4-5.0) mmol/L Chloride 96 L (98-107) mmol/L Carbon Dioxide 31 H (22-30) mmol/L Anion Gap 11 (4-12) mmol/L BUN 11 D (7-17) mg/dL Creatinine 3.22 H (0.7-1.0) mg/dL Estim Creat Clear Calc 13 ml/min Estimated GFR 14 L (59 - ) Glucose 210 H (65-110) mg/dL Calcium 9.1 (8.4-10.2) mg/dL Total Bilirubin 0.5 (0.2-1.3) mg/dL AST 22 (14-36) U/L ALT 25 (6-35) U/L Alkaline Phosphatase 92 (38-126) U/L Total Protein 7.7 (6.3-8.2) g/dL Albumin 4.5 (3.5-5.1) g/dL Influenza A (RT-PCR) Negative (Negative) Influenza B (RT-PCR) Negative (Negative) RSV (RT-PCR) Negative (Negative) SARS-CoV-2 RNA (RT-PCR) Negative (Negative) Discharge Plan Discharge Clinical Impression: Dehydration Patient Disposition: Home Condition: Stable Instructions: Antibiotic Form, Dehydration (DC) Additional Instructions: You seen in the emergency department for low blood pressure. This is likely from her dialysis and blood pressure responded to 1 L of normal saline. Please schedule appointment Dr. Joe discussed your dialysis regimen. If you develop any new symptoms such as weakness, chest pain difficulty breathing please return to ED for re-evaluation. Patient Language: British Prescriptions: No Action dicyclomine 20 mg tablet 20 mg PO TID Qty: 90 5RF loperamide 2 mg tablet 4 mg PO QID PRN (Reason: loose stool) Qty: 100 5RF Cholestyramine Light 4 gram powder 4 g PO TID Qty: 239.4 5RF Rx Instructions: administer w/meal; avoid other meds within 1hr before or 4-6hr after dose budesonide 9 mg tablet,delayed and ext.release 9 mg PO DAILY Qty: 30 1RF escitalopram oxalate 10 mg tablet 10 mg PO DAILY Qty: 30 5RF acetaminophen 325 mg capsule 650 mg PO QID PRN (Reason: pain) bisacodyl 10 mg suppository 10 mg RECTAL DAILY PRN (Reason: constipation) ergocalciferol (vitamin D2) 1,250 mcg (50,000 unit) capsule 1,250 mcg PO WEEKLY Patient Comments: On Wednesdays loperamide 2 mg tablet 2 mg PO QID PRN (Reason: loose stool) Qty: 20 0RF cyclobenzaprine 5 mg tablet 5 mg PO TID PRN (Reason: muscle spasm) Qty: 10 0RF magnesium citrate [Citrate of Magnesia] Solution 296 ml PO DAILY PRN (Reason: constipation) magnesium hydroxide [Bo Milk of Magnesia] 400 mg/5 mL suspension 30 ml PO DAILY PRN (Reason: constipation) cholestyramine-aspartame [Cholestyramine Light] 4 gram powder in packet 1 ea PO TID hydrocodone-acetaminophen 5-325 mg tablet 1 tablet PO Q6H PRN (Reason: pain) Qty: 14 0RF atorvastatin 40 mg tablet 40 mg PO DAILY Qty: 90 2RF bupropion HCl 150 mg tablet extended release 24 hr 150 mg PO QAM Qty: 90 1RF diclofenac sodium [Voltaren Arthritis Pain] 1 % gel 2 g topical BID PRN (Reason: knee pain) Qty: 200 5RF Rx Instructions: apply to single elbow, wrist or hand; for hand includes palm/fingers/back of hand levetiracetam 500 mg tablet 500 mg PO Q12H Qty: 180 1RF mirtazapine 30 mg tablet 30 mg PO QHS Qty: 90 1RF pantoprazole 40 mg tablet,delayed release (DR/EC) 40 mg PO QAM Qty: 90 1RF ropinirole 0.5 mg tablet 0.5 mg PO BID Qty: 180 1RF clobetasol 0.05 % cream See Rx Instructions .ROUTE .COMPLEX Qty: 30 0RF Dose Instruction: APPLY TO AFFECTED AREAS TWICE DAILY Rx Instructions: APPLY TO AFFECTED AREAS TWICE DAILY buspirone 5 mg tablet 5 mg PO TID hydrocodone-acetaminophen 5-325 mg tablet 1 tablet PO QID PRN (Reason: pain) Qty: 120 0RF Follow-up/Referrals: Justen Singer MD [Primary Care Provider, Family Practice] Jamshid Joe MD [Physician, Nephrology] - 1 Day Referral Note: Low bps after dialysis
[2024-11-09 19:55] VITALS: BP 104/59; PULSE 68; RESP 18; O2SAT 98
== END 2024-11-09 19:56 | disposition home or self-care (01) ==
PROVIDERS: Student in an Organized Health Care Education/Training Program; Emergency Provider Emergency Medicine; PCP Family Medicine Adolescent Medicine
DX: E86.0 Dehydration (principal); Z20.822 Contact with and (suspected) exposure to COVID-19; N18.6 End stage renal disease; Z99.2 Dependence on renal dialysis; K21.9 Gastro-esophageal reflux disease without esophagitis; G25.81 Restless legs syndrome; Z85.528 Personal history of other malignant neoplasm of kidney; G47.30 Sleep apnea, unspecified; I25.10 Atherosclerotic heart disease of native coronary artery without angina pectoris; D64.9 Anemia, unspecified; K50.90 Crohn's disease, unspecified, without complications; Z87.442 Personal history of urinary calculi
CPT/HCPCS: 36415; 71045; 71250; 80053; 85025; 87637; 93005; 96360; 99284; J7030

== ENCOUNTER 2024-11-12 15:46 | Emergency (ER) | payer MEDICARE, SELFPAY ==
--- OUTSIDE RECORDS SUMMARY | 2024-06-13 05:35 | XMS_ITS | Continuity of Care Document ---
Author Organization [facility] Address [address] [place] [address] Phone Care Team Providers Care Ged Teacher Name Role Phone Fabián MODI, Paulo Unavailable [...] Diagnoses Date Provider Providers Copied on Encounter [facility], [address] [place], [place], [id number], [place] tel:[phone] [facility] No Information Fabián Bates. [address] [place], [place], [id number], [place]. tel:[phone] [facility], [address] [place] [address], [id number], [place] tel:[phone] [facility] Compression of VeinEnd stage renal disease [place] Paulo. [address] [place] [address], [id number], [place]. tel:[phone] Referring Provider: Jamshid Owens, [address] [place] [address], [id number]. tel:[phone] [facility], [address] [place] [address], [id number], [place] tel:[phone] [facility] Compression of VeinEnd stage renal disease [place] Paulo. [address] [place] [address], [id number], [place]. tel:[phone] Referring Provider: Jamshid Owens, [address] [place] [address], [id number]. tel:[phone] [facility], [address] [place] [address], [id number], [place] tel:[phone] [facility] Stricture of ArteryEnd stage renal disease [place] Paulo. [address] [place] [address], [id number], [place]. tel:[phone] Referring Provider: Jamshid Owens, [address] [place] [address], [id number]. tel:[phone] [facility], [address] [place] [address], [id number], [place] tel:[phone] [facility] Stricture of ArteryEnd stage renal disease [place] Paulo. [address] [place] [address], [id number], [place]. tel:[phone] Referring Provider: Jamshid Owens, [address] [place] [address], [id number]. tel:[phone] [facility], [address] [place] [address], [id number], [place] tel:[phone] [facility] Compression of VeinEnd stage renal disease [place] Paulo. [address] [place], [place], [id number], [place]. tel:[phone] Referring Provider: Jamshid Owens, [address] [place] [address], [id number]. tel:[phone] [facility], [address] [place], [place], [id number], [place] tel:[phone] [facility] Compression of VeinEnd stage renal disease Fabián Bates. [address] [place], [place], [id number], [place]. tel:[phone] Referring Provider: Jamshid Owens, [address] [place] [address], [id number]. tel:[phone] As per patient privacy policy some of the clinical information may not be visible. Family History Family Member Type Diagnosis Age At Onset No Information Payers Payer name Insurance type Covered republican ID Authorcurly cisse(s) Medicare [place] MB [id number] [place] [facility] [place] Medigap BL [id number] Social History Type Description Quantity Date Captured Comments Sex Female Smoking Status No Information Gender Identity Female Chief Complaint And Reason For Visit No Information Reason For Referral Reason For Referral No Information Plan Of Treatment Date Type Action Status Appointment Layla Maher //LILIA WINTER 6 Month F/u BOOKED Future Order: Radiology Order Up per Body Flouroscopy ([id number]), Ordered on: Ordered Future Order: Radiology Order Up per Body Flouroscopy ([id number]), Ordered on: Ordered Future Order: Radiology Order Up per Body Flouroscopy ([id number]), Ordered on: Ordered History Of Present Illness Encounter Date Complaint History Of Prese nt Illness No Information Functional Status Date Functional Assessmen t No Information Instructions Date Instruction Additional Infor mation No Information Assessments Type Assessment Date No Information Patient Care Teams Name Effective Dates (start - stop) Status Members No Information
[2024-11-12] VITALS (7 sets, daily range): BP systolic 93–148; BP diastolic 39–60; PULSE 79–108; RESP 14–20; TEMP 36.6; O2SAT 93–100
--- NOTE | ~2024-11-12 | XR_ITS ---
EXAMINATION: XR chest 1V portable, 11/12/2024 16:49 CDT HISTORY: WEAKNESS,DIZZINESS COMPARISON: No comparisons available. Technique: Single view. Findings: Mild pulmonary venous congestion. No pneumothorax. Mild cardiomegaly. Mediastinal and hilar contours are within normal limits. Bony thorax no acute abnormality. Impression: CHF Reviewed, dictated and finalized at location A. Impression: CHF
--- NOTE | 2024-11-12 16:05 | ECG_ITS ---
Test Date: 2024-11-12 18:30:45 Measurements Intervals [place] Rate: 81 P: 31 SD: 222 QRS: -35 QRSD: 109 T: 79 QT: 422 QTc: 490 Interpretive Statements SINUS RHYTHM WITH FIRST DEGREE AV BLOCK WITH FREQUENT SUPRAVENTRICULAR PREMATURE COMPLEXES LEFT AXIS DEVIATION DELAYED PRECORDIAL R/S TRANSITION ABNORMAL ECG Compared to ECG 11/09/2024 15:50:56 ECTOPIC ATRIAL TACHYCARDIA NO LONGER PRESENT Electronically Signed On 11-12-2024 18:42:34 CDT by Brennen Keenan D.O.
[2024-11-12 16:21] LABS: Hematocrit 36.4 % (37.0-47.0); Hemoglobin 11.4 g/dL (12.0-15.0); Immature Granulocyte Percent A 2.1 % (0-0.5); Lymphocytes Absolute Auto 1.79 K/mm3 (0.9-3.2); Mean Corpuscular HGB Conc 31.3 g/dl (32-36); Mean Corpuscular Hemoglobin 30.3 pg (26-34); Mean Corpuscular Volume 96.8 fl (80-100); Nucleated Red Blood Cells Absolute Auto 0.080 K/mm3 (0.0-0.012); Nucleated Red Blood Cells Perc 0.8 % (0.0-0.2); Platelet Count Result 249 k/mm3 (150-375); Red Blood Count 3.76 M/mm3 (4.2-5.4); White Blood Count 9.9 K/mm3 (4.5-10.0)
[2024-11-12 16:41] LABS: Alanine Aminotransferase 26 U/L (6-35); Albumin Level 4.0 g/dL (3.5-5.1); Alkaline Phosphatase 106 U/L (38-126); Anion Gap 13 mmol/L (4-12); Aspartate Amino Transferase 25 U/L (14-36); Bilirubin,Total 0.4 mg/dL (0.2-1.3); Blood Urea Nitrogen 36 mg/dL (7-17); Calcium 9.4 mg/dL (8.4-10.2); Carbon Dioxide 27 mmol/L (22-30); Chloride 101 mmol/L (98-107); Estimated CRCL calculation 8 ml/min; Estimated Glomerular Filt Rate 8; Glucose 130 mg/dL (65-110); Potassium 4.0 mmol/L (3.4-5.0); Sodium 141 mmol/L (137-145); Total Protein 6.8 g/dL (6.3-8.2)
--- OUTSIDE RECORDS SUMMARY | 2024-11-12 16:41 | XMS_ITS | Clinical Summary ---
Author Organization [facility] Address [address] [facility] [place] [address] Phone Care Team Providers Care Steam Plant Records Clerk Name Role Phone Justen Singer MD Primary Care Provider [phone] Allergies Active Allergy Reactions Criticality Noted Date [...] Comments Blood Pressure 173/60 04/24/2020 9:15 AM COMMUNITY ASSOCIATION MANAGER Pulse 59 04/24/2020 6:13 AM COMMUNITY ASSOCIATION MANAGER Temperature 36.6 C (97.8 F) 04/24/2020 6:13 AM COMMUNITY ASSOCIATION MANAGER Respiratory Rate 17 04/24/2020 9:15 AM COMMUNITY ASSOCIATION MANAGER Oxygen Saturation 97% 04/24/2020 9:15 AM COMMUNITY ASSOCIATION MANAGER Inhaled Oxygen Concentration - - Weight 68 kg (150 lb) 04/24/2020 6:13 AM COMMUNITY ASSOCIATION MANAGER Height 160 cm (5' 3) 04/24/2020 6:13 AM COMMUNITY ASSOCIATION MANAGER Body Mass Index 26.57 04/24/2020 6:13 AM COMMUNITY ASSOCIATION MANAGER Plan of Treatment Health Maintenance Due Date [...] history exists Medical Devices Implanted Type Area Tunnel Kiln Repairer Device Identifier Shelf Expiration Date Model / Serial / Lot 3 Cardiac Stents Left Renal Stent Explanted Type Area Tunnel Kiln Repairer Device Identifier Shelf Expiration Date Model / Serial / Lot Cath Pd Howard Curl 2cuff [id number] - [id number] Implanted:Qty : 1 on 01/25/2020 by Rafita Bartlett MD at [facility] Explanted:Qty : 1 on 04/24/2020 by Hawk Angel MD at [facility] Catheter N/A: Abdomen [employer] - COVIDIEN 09/12/2024 [id number] / / [id number] Insurance MEDICARE PART A AND B [facility] SUPP Advance Directives For more information, please contact: [phone] * Full Code (Latest Code Status on File) Date Activated Date Inactivated Comments 04/24/2020 7:08 AM 04/24/2020 11:55 AM * Full Code Date Activated Date Inactivated Comments 04/24/2020 5:39 AM 04/24/2020 7:07 AM * Full Code Date Activated Date Inactivated Comments 01/25/2020 5:51 AM 01/26/2020 7:33 PM Care Teams Steam Plant Records Clerk Relationship Specialty Start Date End Date Justen Singer MD PCP - General Family Practice 01/25/20
--- OUTSIDE RECORDS SUMMARY | 2024-11-12 16:41 | XMS_ITS | Patient Health Record ---
Author Organization [facility] [employer] Address [address] [place] [address] Care Team Providers Care Bonsai Culturist Name Role Phone Kailee Lan Unavailable [phone] Reason For Referral No Information Medications Medication SIG (Take, Route, Frequency, Duration) Notes Start Date End Date Status Sulfamethoxazole-Trimet hoprim 400-80 MG Tablet Oral 06/24/2023 Acti ve Cyclobenzaprine HCl 5 MG Tablet Oral 06/24/2023 Active Cholecalciferol 1.25 MG (73491 UT) Capsule Oral 06/24/2023 Active Atorvastatin Calcium 40 MG Tablet Oral 06/24/2023 Active Paxlovid (300/100) 20 x 150 MG & 10 x 100MG Tablet Therapy Pack Oral *Reorder from [employer] for eRx and Interaction Alerts* 06/24/2023 Active [...] Release Oral 06/24/2023 Active Ergocalciferol 1.25 MG (60215 UT) Capsule Oral 06/24/2023 Active levETIRAcetam 500 [...] Insured Coverage Start Date Coverage End Date [facility] Medicare Supplement [address] [place] [address] [id number] LEV ANDERSON Self - patient is the insured Medical (General) History Surgical History Surgery Date(Month/Year) Removal of gallbladder (44469) Hysterectomy (41377) 05/14/1976 Appendectomy (39117) 06/03/1983 Cardiac stent 06/10/1999
--- OUTSIDE RECORDS SUMMARY | 2024-11-12 16:41 | XMS_ITS | Clinical Summary ---
Author Organization [facility] [employer] Address [address] [place] [address] Care Team Providers Care Manager Mutual Fund Name Role Phone Justen Singer MD Primary Care Provider + Source Comments [facility],non-owned Affiliates and Associated Physician Practices is amultiple site organization consisting of ambulatory clinics and hospital sitesin [place], [place], [place] and [place]. This disclosure is being madepursuant to the Care Everywhere program and may not contain all information available regarding this patient. 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 Treatment target values recommended by ADA and other clinical organizations should be used to evaluate metabolic control in patients. Reference: [place] [employer], Standards of Care in Diabetes [...] Sree Wade MD LAB - CHEMISTRY ORDERABLES [employer]Mi escalona Result [facility] [address] [place] [address], [facility] [phone] from Last 3 Months or Most Recently Relevant to Health [place] [address] MEDICARE [facility] MEDICARE MEDICARE Advance Directives Documents on File Type Date Recorded Patient Leak Hunter Expl anation Adv Directive/Living Will/POA 08/15/2022 11:36 [...] 3:50 PM 10/30/2021 11:48 AM Care Teams Manager Mutual Fund Relationship Specialty Start Date End Date Justen Singer MD [address] [place] [address] [address] [place] [address] PCP - General 02/14/20
--- OUTSIDE RECORDS SUMMARY | 2024-11-12 16:41 | XMS_ITS | Clinical Summary ---
Author Organization [facility] Address Formerly [facility] [place] [address] Care Team Providers Care Refinery Operator Coking Name Role Phone Justen Singer MD Primary Care Prov ider Jamshid Joe MD Unavailable [phone] Alex Edgar MD Unavailable [phone] Allergies Active Allergy Reactions Criticality Noted [...] mcg tablet Take 75 mcg by mouth stereo equipment installer before breakfast Active Vitamin D2 1,250 mcg [...] - 11/01/2024 11:59 PM CDT Hospital Encounter [address] [address] Abdominal pain, unspecified abdominal location; Abdomen enlarged Discharge Disposition: Discharge to home or self care from Last 3 Months Immunizations Immunization Administration Dates Next Due Influenza, Trivalent, Preservative Free, Intramu scular 03/26/2012 Surgical History Surgery Date Site/Laterality Comments [place] LAPAROSCOPY SURG PARTIAL NEPHRECTOMY Left Kidney Surgery Laparoscopic Partial Nephrectomy - oncocytoma (Added by TW Conv) APPENDECTOMY Appendectomy - (Added by TW Conv) HYSTERECTOMY Hysterectomy - (Added by TW Conv) FOOT FRACTURE SURGERY Treatment Of Foot Fracture - 2004 (Added by TW Conv) CHOLECYSTECTOMY Cholecystectomy - 2005 (Added by TW Conv) TN PRQ TRLUML CORONARY STENT W/ANGIO ONE ART/BRNCH [...] TW Conv) Atherosclerotic heart diseas e of [place] coronary artery without angina pectoris Arteriosclerot ic [...] on file Legal Sex Female 6:58 AM FORMS ANALYST Gender Identity Not on file Sexual Orientation Not on file Obstetrics History Last Filed Vital Signs Vital Sign Reading Time Taken Comments Blood Pressure 178/70 05/06/2022 9:26 AM FORMS ANALYST Pulse 73 05/06/2022 9:26 AM FORMS ANALYST Temperature 36.6 C (97.8 F) 08/26/2021 2:10 PM CDT Respiratory Rate 18 03/19/2020 8:41 PM FORMS ANALYST Oxygen Saturation 90% 05/06/2022 9:26 AM FORMS ANALYST Inhaled Oxygen Concentration - - Weight 73.9 kg (163 lb) 05/06/2022 9:26 AM FORMS ANALYST Height 160 cm (5' 3) 05/06/2022 9:26 AM FORMS ANALYST Body Mass Index 28.87 05/06/2022 9:26 AM FORMS ANALYST Plan of Treatment Health Maintenance Due Date [...] Dipak Bruno M.D. KT T: Report ID: [id number] Reading Location: [place] [address] Procedure Note Dipak Bruno MD - 11/02/2024 [...] Dipak Bruno M.D. KT T: Report ID: [id number] Reading Location: [id number] us Jamshid Joe MD IMG US PROCEDURES Final Resu lt * (ABNORMAL) eGFR (11/23/2020 12:05 PM CDT) eGFR 8(L) 90 - 130 mL/min/1.7 3 m2 [facility] Comment: Interpretive Data Reference Interval Normal [...] Rose MD LAB BLOOD ORDERABLES Final Result [facility] Department [place] [address] * Hepatitis C antibody (11/23/2020 12:05 PM CDT) Pathologist [facility] Hep C Ab Nonreactive Nonreactive [facility] Comment:Antibodies to HCV no t detected. Does NOT exclude the possibility of recent exposure to HCV. Blood 11/23/2020 12:0 5 PM CDT 11/23/2020 12:20 PM CDT Jani Rose MD LAB MICROBIOLOGY - GENERAL ORDERABLES Edited Result - Final Performing Organization Address [facility] Co de Phone Number [facility] [place] [address] * (ABNORMAL) Hemoglobin A1c (11/23/2020 12:05 PM CDT) Hgb A1C 6.1(H) 4.0 - 5.6 % [facility] Estimated Average Glucose 128 mg/dL [facility] Comment: The ADA recommends reporting an [...] BLOOD ORDERABLES Final Result Performing Organization Address [facility] Co de Phone Number [facility] Department [place] [address] * (ABNORMAL) Lipid panel (11/23/2020 12:05 PM CDT) Cholesterol 148 30 - 199 mg/dL [facility] Comment: Interpretive Data Ages < or [...] revised on 2017. Triglycerides 303(H) <=149 mg/dL [facility] Comment: Interpretive Data Ages < or [...] MD LAB BLOOD ORDERABLES Final Result [facility] [place] [address] from Last 3 Months or Most Recently Relevant to Health Maintenance Insurance MEDICARE [facility] MEDICARE [facility] MEDICARE [place] Care Teams Refinery Operator Coking Relationship Specialty Start Date End Date Justen Singer MD PCP - General Family Medicine 08/27/20 Jamshid Joe MD Referring Physician Nephrology 10/08/20 Alex Edgar MD Referring Physician Cardiology 10/08/20
--- OUTSIDE RECORDS SUMMARY | 2024-11-12 16:41 | XMS_ITS | Encounter Summary ---
Author Organization [facility] Address [address] [place] [address] Phone Care Team Providers Care Nurse Behavioral Health Care Name Role Phone Justen Singer MD Primary Care Prov ider Justen Singer MD Primary Care Prov ider Lita Elizabeth RN Unavailable Jamshid Joe MD Unavailable [phone] Alex Edgar MD Unavailable Encounter Details Date Type Department Care Team (Late st Contact Info) Description 12/15/2019 Telephone [facility] Cardiology [address] [facility] Advanced Medicine [address]th [place] [address] [place] [address] Alex Edgar MD [address] [facility] [address] [place], [place] [id number] Social History Tobacco Use Types Packs/Day Years Used Date Smoking Tobacco: Former Smokeless Tobacco: Never Comments Unknown Sex and Gender Information Value Date Recorded Sex Assigned at Not on file Legal Sex Female 6:58 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 Gender Identity Not on file Sexual Orientation Not on file documented as of this encounter Plan of Treatment Not on file documented as of this encounter Visit Diagnoses Not on filedocumented in this encounter Additional Health Concerns Infection Onset Date Last Indicated Resolved Time COVID19 03/19/2020 03/19/2020 04/02/2020 3:07 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 documented as of this encounter Care Teams Nurse Behavioral Health Care Relationship Specialty Start Date End Date Justen Singer MD PCP - General 03/27/17 08/26/20 Justen Singer MD PCP - General Family Medicine 08/27/20 Lita Elizabeth, RN [address] [id number] Registered Nurse Business Intelligence Engineer 08/27/20 Jamshid Joe MD [address] [address] Referring Physician Nephrology 10/08/20 Alex Edgar MD [address] [address] Referring Physician Cardiology 10/08/20 documented as of this encounter
--- NOTE | 2024-11-12 18:40 | ED.GENADULT ---
HPI - General Adult General Chief complaint: Dizziness Stated complaint: Dizzy & Weak Time Seen by Provider: 11/12/24 16:22 History of Present Illness HPI narrative: Patient is a 79-year-old female who presents ER due to weakness. She had dialysis yesterday and was found to be hypotensive. She was then sent back to her facility. The facility discovered this today because she is reporting some continued weakness the center here for evaluation. No chest pain or shortness of breath. Reports she has chronic diarrhea. She does not drink much water. No fevers or chills. No syncope or dizziness today. Related Data Home Medications ?Medication ?Instructions ?Recorded ?Confirmed ?Last Taken ?Type acetaminophen 325 mg capsule 650 mg PO QID PRN pain 03/11/24 08/25/24 Unknown History bisacodyl 10 mg rectal suppository 10 mg RECTAL DAILY PRN constipation 03/11/24 08/25/24 Unknown History ergocalciferol (vitamin D2) 1,250 1,250 mcg PO WEEKLY 03/11/24 08/25/24 03/09/24 History mcg (50,000 unit) capsule cholestyramine-aspartame 4 gram 1 ea PO TID 04/01/24 08/25/24 Unknown History oral powder for susp in a packet (Cholestyramine Light) magnesium citrate (Citrate of 296 ml PO DAILY PRN constipation 04/01/24 08/25/24 Unknown History Magnesia oral) magnesium hydroxide 400 mg/5 mL 30 ml PO DAILY PRN constipation 04/01/24 08/25/24 Unknown History oral suspension (Bo Milk of Magnesia) buspirone 5 mg tablet 5 mg PO TID 07/13/24 08/25/24 Unknown History Allergies Allergy/AdvReac Type Severity Reaction Status Date / Time cortisone Allergy Intermediate Dyspnea / Verified 08/25/24 10:44 SOB Penicillins Allergy Intermediate Dyspnea / Verified 08/25/24 10:44 SOB ceftriaxone (From Rocephin) Allergy Difficulty Verified 08/25/24 10:44 Breathing Review of Systems Review of Systems: All systems reviewed & are unremarkable except as noted in HPI and below Constitutional: Constitutional: Reports no additional constitutional complaints ENT: Reports system reviewed and no additional complaints, except as documented Cardiovascular: Cardiovascular: Reports no additional cardiovascular complaints Respiratory: Respiratory: Reports no additional respiratory complaints Musculoskeletal: Musculoskeletal: Reports no additional musculoskeletal complaints [facility] Past Medical History Medical History Pubic ramus fracture Diastolic dysfunction Echocardiogram October 2022: EF greater than 70% mildly increased left ventricular wall thickness, grade 1 diastolic dysfunction, patent foramen ovale visualized on agitated saline mild mitral valve regurgitation, mild tricuspid valve regurgitation mild pulmonary hypertension with RVSP of 37 Peripheral autonomic neuropathy due to diabetes mellitus Osteomyelitis of toe of left foot COVID-19 virus infection Renal osteodystrophy Erythropoietin deficiency anemia End-stage renal disease on hemodialysis Thursday Normal colonoscopy (08/2019) Tushar (1991) Gastroesophageal reflux disease Restless leg syndrome Renal cell carcinoma (2004) Obstructive sleep apnea No longer using CPAP after 40 lb weight loss. Coronary artery disease History of stent x3. Anemia of chronic disease Pericardial effusion (01/2020) Small pericardial effusion on echocardiogram, felt to be related to uremia. Peripheral vascular disease Crohn's disease History of kidney stones Peritonitis (01/2020) Surgical History Surgical History Amputation toe Left 2nd toe. History of complete ray amputation of second toe of left foot History of complete ray amputation of second toe of right foot History of cholecystectomy History of appendectomy History of foot surgery Repair of left foot fracture with pinning. History of partial nephrectomy (2004) Left partial nephrectomy for kidney cancer. History of tonsillectomy History of bilateral carpal tunnel release History of hysterectomy (1976) With cystocele and rectocele repairs. History of cardiac catheterization With stent x3. History of cystoscopy With ureteral stents for kidney stones. History of colonoscopy Family History Family History Father Renal cell carcinoma Acute myocardial infarction Cerebrovascular accident Colon polyp Heart disease Hypertension Mother Lung cancer Acute myocardial infarction Cerebrovascular accident Depression Heart disease Hypertension Son Asthma Social History Social History Social History: Patient is retired. 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 She had 1 son who at 50 years old heart attack. She has a 2nd son who is still living and he was her surrogate decision maker. To smoke 1 pack of cigarettes per day for about 30 years. She quit smoking in 1995. She denies any alcohol use or illicit substance use. She is living in [facility]. Surrogate medical decision maker: Dong Maher, son. Code status: DNR/DNI Smoking packs per day: 0.5 Smoking cigarettes per day: 10.0 Years smoked: 10 Smoking pack-years: 5.00 Smoking status: Former smoker Tobacco type: cigarettes Second hand tobacco smoke exposure: No Smoking end date: 03/16/93 Alcohol intake: never Substance use: never Do You Feel Safe in your Home?: Yes Lack of Transportation: No Lack of Food: Never True Current Housing: I Have Housing Concerned About Future Housing: No Difficulty Paying Gas/Electric Bills: No Difficulty Paying for Meds: No Currently Unemployed: No Education: High School Diploma/GED Difficulty w/ Childcare or Family Care: No Living arrangements: alone Additional living arrangements comments: , lives in [place]. 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 Spiritual care concerns: No Agree to blood products: Yes Exam Narrative: GENERAL: Chronically ill-appearing, well-nourished, and in no acute distress. HEAD: Normocephalic, atraumatic. ENT: Mucous membranes moist. CHEST: Clear to auscultation. No respiratory distress. HEART: Regular rate and rhythm. Normal peripheral pulses. ABDOMEN: Soft, nontender, nondistended. EXTREMITIES: Normal range of motion. No edema. SKIN: Warm, dry, no rash. NEURO: Alert and oriented x3. PSYCH: Normal mood and affect. Course Course Emergency Course: Patient resting comfortably. No significant changes in the patient's lab work. Chronic anemia at 11.4, elevated creatinine at 5.4 with BUN of 36. Potassium normal. Congestive changes on chest x-ray but no hypoxia or abnormal lung sounds. Vital Signs Vital signs: Vital Signs Temperature 97.9 F 11/12/24 15:55 Pulse Rate 95 11/12/24 15:55 Respiratory Rate 16 11/12/24 15:55 Blood Pressure 93/39 L 11/12/24 15:55 Pulse Oximetry 100 11/12/24 15:55 Temperature 97.9 F 11/12/24 15:55 Pulse Rate 80 11/12/24 18:17 Respiratory Rate 14 11/12/24 18:17 Blood Pressure 111/60 11/12/24 18:17 Pulse Oximetry 96 08/30/25 18:17 Medical Decision Making Vital Signs Vital Signs: Vital Signs Temperature 97.9 F 11/12/24 15:55 Pulse Rate 95 11/12/24 15:55 Respiratory Rate 16 11/12/24 15:55 Blood Pressure 93/39 L 11/12/24 15:55 Pulse Oximetry 100 11/12/24 15:55 Temperature 97.9 F 11/12/24 15:55 Pulse Rate 80 11/12/24 18:17 Respiratory Rate 14 11/12/24 18:17 Blood Pressure 111/60 11/12/24 18:17 Pulse Oximetry 96 11/12/24 18:17 Lab Data 11/12/24 16:17 11/12/24 16:17 Labs: Lab Results 11/12/24 Range/Units 16:17 WBC 9.9 (4.5-10.0) K/mm3 RBC 3.76 L (4.2-5.4) M/mm3 Hgb 11.4 L (12.0-15.0) g/dL Hct 36.4 L (37.0-47.0) % MCV 96.8 (80-100) fl MCH 30.3 (26-34) pg MCHC 31.3 L (32-36) g/dl RDW 15.9 H (11.5-14.5) % Plt Count 249 (150-375) k/mm3 MPV 8.7 (7.4-10.4) fl Immature Gran % (Auto) 2.1 H (0-0.5) % Neut % (Auto) 65.2 (45.5-73.1) % Lymph % (Auto) 18.1 L (18.3-44.2) % Miller % (Auto) 10.3 H (2.6-8.5) % Eos % (Auto) 3.9 (0-4.4) % Baso % (Auto) 0.4 (0.2-1.2) % Lymph # (Auto) 1.79 (0.9-3.2) K/mm3 Miller # (Auto) 1.0 H (0.1-0.6) K/mm3 Eos # (Auto) 0.4 H (0-0.3) K/mm3 Baso # (Auto) 0.0 (0.0-0.1) K/mm3 Abs Immat Gran (auto) 0.21 H (0.00-0.031) K/mm3 Absolute Neuts (auto) 6.5 (1.3-6.7) K/mm3 Absolute Nucleated RBC 0.080 H (0.0-0.012) K/mm3 Nucleated RBC % 0.8 H (0.0-0.2) % Sodium 141 (137-145) mmol/L Potassium 4.0 (3.4-5.0) mmol/L Chloride 101 (98-107) mmol/L Carbon Dioxide 27 (22-30) mmol/L Anion Gap 13 H (4-12) mmol/L BUN 36 H D (7-17) mg/dL Creatinine 5.40 H (0.7-1.0) mg/dL Estim Creat Clear Calc 8 ml/min Estimated GFR 8 L (59 - ) Glucose 130 H (65-110) mg/dL Calcium 9.4 (8.4-10.2) mg/dL Total Bilirubin 0.4 (0.2-1.3) mg/dL AST 25 (14-36) U/L ALT 26 (6-35) U/L Alkaline Phosphatase 106 (38-126) U/L Total Protein 6.8 (6.3-8.2) g/dL Albumin 4.0 (3.5-5.1) g/dL Imaging Data Radiologist's impression: ITS Impressions Chest X-Ray 11/12/24 17:16 Impression: CHF Discharge Plan Discharge Clinical Impression: Generalized weakness Patient Disposition: Home Condition: Stable Instructions: Antibiotic Form, Weakness (ED) Additional Instructions: Please return to the emergency department if you develop severe and persistent chest pain, difficulty breathing, dizziness, leg swelling or if you are coughing up blood as these can be signs of a medical emergency. Please call your doctor for a follow up appointment to determine the need for further testing. Patient Language: Malay Prescriptions: No Action dicyclomine 20 mg tablet 20 mg PO TID Qty: 90 5RF loperamide 2 mg tablet 4 mg PO QID PRN (Reason: loose stool) Qty: 100 5RF Cholestyramine Light 4 gram powder 4 g PO TID Qty: 239.4 5RF Rx Instructions: administer w/meal; avoid other meds within 1hr before or 4-6hr after dose budesonide 9 mg tablet,delayed and ext.release 9 mg PO DAILY Qty: 30 1RF escitalopram oxalate 10 mg tablet 10 mg PO DAILY Qty: 30 5RF acetaminophen 325 mg capsule 650 mg PO QID PRN (Reason: pain) bisacodyl 10 mg suppository 10 mg RECTAL DAILY PRN (Reason: constipation) ergocalciferol (vitamin D2) 1,250 mcg (50,000 unit) capsule 1,250 mcg PO WEEKLY Patient Comments: On Wednesdays loperamide 2 mg tablet 2 mg PO QID PRN (Reason: loose stool) Qty: 20 0RF cyclobenzaprine 5 mg tablet 5 mg PO TID PRN (Reason: muscle spasm) Qty: 10 0RF magnesium citrate [Citrate of Magnesia] Solution 296 ml PO DAILY PRN (Reason: constipation) magnesium hydroxide [Bo Milk of Magnesia] 400 mg/5 mL suspension 30 ml PO DAILY PRN (Reason: constipation) cholestyramine-aspartame [Cholestyramine Light] 4 gram powder in packet 1 ea PO TID hydrocodone-acetaminophen 5-325 mg tablet 1 tablet PO Q6H PRN (Reason: pain) Qty: 14 0RF atorvastatin 40 mg tablet 40 mg PO DAILY Qty: 90 2RF bupropion HCl 150 mg tablet extended release 24 hr 150 mg PO QAM Qty: 90 1RF diclofenac sodium [Voltaren Arthritis Pain] 1 % gel 2 g topical BID PRN (Reason: knee pain) Qty: 200 5RF Rx Instructions: apply to single elbow, wrist or hand; for hand includes palm/fingers/back of hand levetiracetam 500 mg tablet 500 mg PO Q12H Qty: 180 1RF mirtazapine 30 mg tablet 30 mg PO QHS Qty: 90 1RF pantoprazole 40 mg tablet,delayed release (DR/EC) 40 mg PO QAM Qty: 90 1RF clobetasol 0.05 % cream See Rx Instructions .ROUTE .COMPLEX Qty: 30 0RF Dose Instruction: APPLY TO AFFECTED AREAS TWICE DAILY Rx Instructions: APPLY TO AFFECTED AREAS TWICE DAILY buspirone 5 mg tablet 5 mg PO TID hydrocodone-acetaminophen 5-325 mg tablet 1 tablet PO QID PRN (Reason: pain) Qty: 120 0RF ropinirole 0.5 mg tablet 0.5 mg PO BID Qty: 180 1RF Follow-up/Referrals: Justen Singer MD [Primary Care Provider, Family Practice] - 1 Week
== END 2024-11-12 18:55 ==
PROVIDERS: Emergency Medicine; Emergency Provider Emergency Medicine; PCP Family Medicine Adolescent Medicine
DX: R53.1 Weakness (principal); E11.43 Type 2 diabetes mellitus with diabetic autonomic (poly)neuropathy; E11.22 Type 2 diabetes mellitus with diabetic chronic kidney disease; N18.6 End stage renal disease; Z99.2 Dependence on renal dialysis; D63.1 Anemia in chronic kidney disease; N25.0 Renal osteodystrophy; E11.51 Type 2 diabetes mellitus with diabetic peripheral angiopathy without gangrene; I73.9 Peripheral vascular disease, unspecified; I25.10 Atherosclerotic heart disease of native coronary artery without angina pectoris; E03.9 Hypothyroidism, unspecified; K50.90 Crohn's disease, unspecified, without complications; K21.9 Gastro-esophageal reflux disease without esophagitis; G25.81 Restless legs syndrome; G47.33 Obstructive sleep apnea (adult) (pediatric); Z66 Do not resuscitate; Z95.5 Presence of coronary angioplasty implant and graft; Z85.528 Personal history of other malignant neoplasm of kidney; Z86.16 Personal history of COVID-19; Z87.442 Personal history of urinary calculi; Z87.891 Personal history of nicotine dependence; Z89.422 Acquired absence of other left toe(s); Z89.421 Acquired absence of other right toe(s); Z90.49 Acquired absence of other specified parts of digestive tract; Z90.5 Acquired absence of kidney; Z90.710 Acquired absence of both cervix and uterus; Z79.899 Other long term (current) drug therapy; I44.0 Atrioventricular block, first degree; I49.1 Atrial premature depolarization
CPT/HCPCS: 36415; 71045; 80053; 85025; 93005; 99284

== ENCOUNTER 2024-12-14 12:23 | Emergency (ER) | payer MEDICARE, SELFPAY ==
[2024-12-14] VITALS (8 sets, daily range): BP systolic 134–136; BP diastolic 56–75; PULSE 74–116; RESP 15–24; TEMP 36.8; O2SAT 92–98
--- OUTSIDE RECORDS SUMMARY | 2024-12-14 13:16 | XMS_ITS | Clinical Summary ---
Author Organization [facility] Address [address] [facility] [place] [address] Phone Care Team Providers Care Compliance Consultant Name Role Phone Justen Singer MD Primary Care Provider [phone] Allergies Active Allergy Reactions Criticality Noted Date [...] 50 mg tabletIndicatio ns:End stage renal disease Take 2 Tablets (100 mg) by mouth [...] Comments Blood Pressure 173/60 04/24/2020 9:15 AM ASSISTED LIVING MANAGER Pulse 59 04/24/2020 6:13 AM ASSISTED LIVING MANAGER Temperature 36.6 C (97.8 F) 04/24/2020 6:13 AM ASSISTED LIVING MANAGER Respiratory Rate 17 04/24/2020 9:15 AM ASSISTED LIVING MANAGER Oxygen Saturation 97% 04/24/2020 9:15 AM ASSISTED LIVING MANAGER Inhaled Oxygen Concentration - - Weight 68 kg (150 lb) 04/24/2020 6:13 AM ASSISTED LIVING MANAGER Height 160 cm (5' 3) 04/24/2020 6:13 AM ASSISTED LIVING MANAGER Body Mass Index 26.57 04/24/2020 6:13 AM ASSISTED LIVING MANAGER Plan of Treatment Health Maintenance Due [...] history exists Medical Devices Implanted Type Area Check Clerk Device Identifier Shelf Expiration Date Model / Serial / Lot 3 Cardiac Stents Left Renal Stent Explanted Type Area Check Clerk Device Identifier Shelf Expiration Date Model / Serial / Lot Cath Pd Howard Curl 2cuff [id number] - [id number] Implanted:Qty : 1 on 01/25/2020 by Rafita Bartlett MD at [facility] Explanted:Qty : 1 on 04/24/2020 by Hawk Angel MD at [facility] Catheter N/A: Abdomen [employer] - COVIDIEN 09/12/2024 [id number] / / [id number] Insurance MEDICARE PART A AND B [facility] SUPP Advance Directives For more information, please contact: [phone] * Full Code (Latest Code Status on File) Date Activated Date Inactivated Comments 04/24/2020 7:08 AM 04/24/2020 11:55 AM * Full Code Date Activated Date Inactivated Comments 04/24/2020 5:39 AM 04/24/2020 7:07 AM * Full Code Date Activated Date Inactivated Comments 01/25/2020 5:51 AM 01/26/2020 7:33 PM Care Teams Compliance Consultant Relationship Specialty Start Date End Date Justen Singer MD PCP - General Family Practice 01/25/20
--- OUTSIDE RECORDS SUMMARY | 2024-12-14 13:16 | XMS_ITS | Clinical Summary ---
Author Organization [facility] Address [address], [place] [address] Phone Care Team Providers Care Plastic Straightening Roll Operator Name Role Phone Justen Bonds MD Primary [...] Vaccine (#1) 2024 01/06/2019, 2012 Insurance MEDICARE [facility] [employer] [facility] PM INTERFACED INSURANCE Care Teams Plastic Straightening Roll Operator Relationship Specialty Start Date End Date Justen Bonds MD [address] [address] PCP - General Family Medicine 01/10/19
--- OUTSIDE RECORDS SUMMARY | 2024-12-14 13:16 | XMS_ITS | Clinical Summary ---
Author Organization [facility] Address [address] [facility] [place] [address] Care Team Providers Care Electromechanical Equipment Tester Name Role Phone Justen Singer MD Primary Care Provider + Source Comments [facility],non-owned Affiliates and Associated Physician Practices is amultiple site organization consisting of ambulatory clinics and hospital sitesin [place], [place], [place] and [place]. This disclosure is being madepursuant to the Care Everywhere program and may not contain all information available regarding this patient. Last updated 17.[facility] Allergies Active Allergy Reactions Criticality Noted Date [...] HTN (hypertension) 07/26/2022 Posterior reversible encephalopathy syndrome (VT ES) 07/26/2022 Unresponsive 07/25/2022 Acute encephalopathy 07/25/2022 [...] LURIA, FLUZONE TRIVALENT; 6MO+) (IIV3) 01/06/2019 Covid News in Shorts primary Monoval ent 12+ yr 0.3ml 10/26/2021(Deferred: [...] on file Legal Sex Female 12:[address]ING Gender Identity Not on file Sexual Orientation [...] 10/25/2021 DIABETES-HGB A1C 01/26/2023 07/26/2022, 02/2022, 11/23/2020 DEPRESSION SCREENING 03/16/2024 COVID-19 VACCINE ( season) 2024 01/03/2021, 06/06/2020, 05/15/2020 INFLUENZA VACCINE (#1) 2024 , 11/23/2019, 01/06/2019, [...] 6.1(H) <=5.6 % 07/27/2022 9:53 AM CDT [facility] Estimated Average Glucose 128 mg/dL 07/27/2022 9:53 AM CDT [facility] Comment: HbA1c Interpretation: Normal : < 5.7% Pre-diabetes: 5.7-6.4% Diabetes: Equal to or greater than 6.5% Test results diagnostic of diabetes should be repeated for confirmation. Treatment target values recommended by ADA and other clinical organizations should be used to evaluate metabolic control in patients. 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
--- OUTSIDE RECORDS SUMMARY | 2024-12-14 13:16 | XMS_ITS | Encounter Summary ---
Author Organization [facility] Address [address] [place] [address] Phone Care Team Providers Care Syrup Blender Name Role Phone Justen Singer MD Primary Care Prov ider Justen Singer MD Primary Care Prov ider Lita Elizabeth RN Unavailable Jamshid Joe MD Unavailable [phone] Alex Edgar MD Unavailable [phone] Encounter Details Date Type Department Care Team (Late st Contact Info) Description 12/15/2019 Telephone [facility] Cardiology [address] [facility] Advanced Medicine 8th [place] [address] [place] [address] Alex Edgar MD [address] [facility] [address] [place], [place] [id number] Social History Tobacco Use Types Packs/Day Years Used Date Smoking Tobacco: Former Smokeless Tobacco: Never Comments Unknown Sex and Gender Information Value Date Recorded Sex Assigned at Not on file Legal Sex Female 6:58 AM LEGAL ARBITRATOR Gender Identity Not on file Sexual Orientation Not on file documented as of this encounter Plan of Treatment Not on file documented as of this encounter Visit Diagnoses Not on filedocumented in this encounter Additional Health Concerns Infection Onset Date Last Indicated Resolved Time COVID19 03/19/2020 03/19/2020 04/02/2020 3:07 AM LEGAL ARBITRATOR documented as of this encounter Care Teams Syrup Blender Relationship Specialty Start Date End Date Justen Singer MD PCP - General 03/27/17 08/26/20 Justen Singer MD PCP - General Family Medicine 08/27/20 Lita Elizabeth, RN [address] [id number] Registered Nurse Service Officer 08/27/20 Jamshid Joe MD [address] [address] Referring Physician Nephrology 10/08/20 Alex Edgar MD [address] [address] Referring Physician Cardiology 10/08/20 documented as of this encounter
--- OUTSIDE RECORDS SUMMARY | 2024-12-14 13:16 | XMS_ITS | Encounter Summary ---
Author Organization [facility] Address [address] [place] [address] Care Team Providers Care Dry Cleaning Attendant Name Role Phone Justen Singer MD Primary Care Prov ider Jamshid Joe MD Unavailable [phone] Alex Edgar MD Unavailable Encounter Details Date Type Department Care Team (Late st Contact Info) Description 11/08/2022 Orders Only [facility] Information Management [address] [place] [address] Scanning, Provider Social History Tobacco Use Types Packs/Day Years Used Date Smoking Tobacco: Former Smokeless Tobacco: Never Comments Unknown Sex and Gender Information Value Date Recorded Sex Assigned at Not on file Legal Sex Female 6:58 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 Gender Identity Not on file Sexual Orientation Not on file documented as of this encounter Plan of Treatment Not on file documented as of this encounter Procedures Procedure Name Priority Date/Time Associated Diagnosis Comments CARDIOLOGY DOCUMENT SCAN 11/08/2022 documented in this encounter Results * Cardiology Document Scan (11/08/2022) Anatomical Region Laterality Modality Other us Provider Scanning CV CARDIAC SERVICES PROCEDURES Final Result documented in this encounter Visit Diagnoses Not on filedocumented in this encounter Care Teams Dry Cleaning Attendant Relationship Specialty Start Date End Date Justen Singer MD PCP - General Family Medicine 08/27/20 Jamshid Joe MD Referring Physician Nephrology 10/08/20 Alex Edgar MD Referring Physician Cardiology 10/08/20 documented as of this encounter
--- OUTSIDE RECORDS SUMMARY | 2024-12-14 13:16 | XMS_ITS | Clinical Summary ---
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 before breakfast Active Vitamin D2 1,250 mcg [...] - 11/01/2024 11:59 PM CDT Hospital Encounter [address] [address] Abdominal pain, unspecified abdominal location; Abdomen enlarged Discharge Disposition: Discharge to home or self care from Last 3 Months Immunizations Immunization Administration Dates Next Due Influenza, Trivalent, Preservative Free, Intramu scular 03/26/2012 Surgical History Surgery Date Site/Laterality Comments ID LAPAROSCOPY SURG PARTIAL NEPHRECTOMY Left Kidney Surgery Laparoscopic Partial Nephrectomy - oncocytoma (Added by TW Conv) APPENDECTOMY Appendectomy - (Added by TW Conv) HYSTERECTOMY Hysterectomy - (Added by TW Conv) FOOT FRACTURE SURGERY Treatment Of Foot Fracture - 2004 (Added by TW Conv) CHOLECYSTECTOMY Cholecystectomy - 2005 (Added by TW Conv) ID PRQ [id number] CORONARY STENT W/ANGIO ONE ART/BRNCH [...] TW Conv) Atherosclerotic heart diseas e of ramona coronary artery without angina pectoris Arteriosclerot ic [...] on file Legal Sex Female 6:58 AM 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 LIVESTOCK INSPECTOR Gender Identity Not on file Sexual Orientation Not on file Obstetrics History Last Filed Vital Signs Vital Sign Reading Time Taken Comments Blood Pressure 178/70 05/06/2022 9:26 AM VETERINARY LIVESTOCK INSPECTOR Pulse 73 05/06/2022 9:26 AM VETERINARY LIVESTOCK INSPECTOR Temperature 36.6 C (97.8 F) 08/26/2021 2:10 PM CDT Respiratory Rate 18 03/19/2020 8:41 PM VETERINARY LIVESTOCK INSPECTOR Oxygen Saturation 90% 05/06/2022 9:26 AM VETERINARY LIVESTOCK INSPECTOR Inhaled Oxygen Concentration - - Weight 73.9 kg (163 lb) 05/06/2022 9:26 AM VETERINARY LIVESTOCK INSPECTOR Height 160 cm (5' 3) 05/06/2022 9:26 AM VETERINARY LIVESTOCK INSPECTOR Body Mass Index 28.87 05/06/2022 9:26 AM VETERINARY LIVESTOCK INSPECTOR Plan of Treatment Health Maintenance Due Date Last Done Comments Albumin Creatinine Ratio, Urine 1945 Depression Screening 1945 Fall Risk Assessment 1945 Osteoporosis Screening-Bone Density Scan 1945 Dilated Eye Exam 1945 Foot Exam 1945 Zoster Vaccine (1 of 2) 05/30/1995 Well Visit 65+ 2010 DTaP/Tdap/Td Vaccine (1 - Tdap) 09/28/2012 3 Pneumococcal vaccine 65+ (2 of 2 - PPSV23, PCV20, or PCV21) 09/04/2020 07/10/2020 eGFR 11/23/2021 11/23/2020, 06/2020, 03/15/2020 Hemoglobin A1C 01/26/2023 07/26/2022, 10/14, 11/23/2020 Lipid Panel 07/29/2023 07/28/2022, 11/23/2020 Covid-19 Vaccine (2024-04 6 season) 2024 01/03/2021, 06/06/2020, 05/15/2020 Influenza Vaccine (#1) 2024 , 11/29/2019, 11/23/2019, Additional history exists Hepatitis B Screening Completed 11/23/2020 Hepatitis C Screening Completed 11/23/2020 Procedures Procedure [...] Dipak Bruno M.D. KT T: Report ID: [id number] Reading Location: [place] [address] Procedure Note Dipak Bruno MD - 11/02/2024 [...] Dipak Bruno M.D. KT T: Report ID: [id number] Reading Location: [id number] [place] Jamshid Joe MD IMG US PROCEDURES Final Resu lt * (ABNORMAL) eGFR (11/23/2020 12:05 PM CDT) Pathologist [facility] eGFR 8(L) 90 - 130 mL/min/1.7 3 m2 [facility] Comment: Interpretive Data Reference [...] Rose MD LAB BLOOD ORDERABLES Final Result [facility] Department [place] [address] * Hepatitis C antibody (11/23/2020 12:05 PM CDT) [facility] Hep C Ab Nonreactive Nonreactive [facility] Comment:Antibodies to HCV no t detected. Does NOT exclude the possibility of recent exposure to HCV. Blood 11/23/2020 12:0 5 PM CDT 11/23/2020 12:20 PM CDT Jani Rose MD LAB MICROBIOLOGY - GENERAL ORDERABLES Edited Result - Final Performing Organization Address [facility] Co de Phone Number [facility] Department [place] [address] * (ABNORMAL) Hemoglobin A1c (11/23/2020 12:05 PM CDT) Hgb A1C 6.1(H) 4.0 - 5.6 % [facility] Estimated Average Glucose 128 mg/dL JAYNA [...] BLOOD ORDERABLES Final Result Performing Organization Address [facility] de Phone Number [facility] Department [place] [address] * (ABNORMAL) Lipid panel (11/23/2020 12:05 PM CDT) Cholesterol 148 30 - 199 mg/dL [facility] Comment: Interpretive [...] on 2017. Triglycerides 303(H) <=149 mg/dL [facility] Comment: Interpretive [...] on 2017. HDL 41 >=40 mg/dL [facility] Comment: Interpretive [...] 2017. LDL, calculated 46 <=129 mg/dL [facility] Comment: Interpretive [...] MD LAB BLOOD ORDERABLES Final Result [facility] Department [place] [address] from Last 3 Months or Most Recently Relevant to Health Maintenance Insurance MEDICARE [facility] MEDICARE [facility] MEDICARE IDPA [facility] MEDICARE SUPPLEMENT Care Teams Production Generalist Relationship Specialty Start Date End Date Justen Singer MD PCP - General Family Medicine 08/27/20 Jamshid Joe MD Referring Physician Nephrology 10/08/20 Alex Edgar MD Referring Physician Cardiology 10/08/20
[2024-12-14] MEDS: HYDROcodone/acetaminophen (*CRX) 7.5-325 MG TABLET 1 TAB PO (13:36)
--- NOTE | 2024-12-14 13:36 | ED_ITS ---
HPI - General Adult General Chief complaint: Unspecified Stated complaint: muscle spasms Time Seen by Provider: 12/14/24 12:26 History of Present Illness HPI narrative: 79-year-old female to the emergency department for evaluation for lower abdominal cramping and cramping in her left shoulder. Patient states he does have history of restless leg and feels like her restless leg is spreading to her left arm. Patient did have dialysis today and felt the symptoms worsened after her dialysis. Patient states that she did go to dialysis today and did complete her dialysis today patient denies any chest pain or shortness breath. Related Data Home Medications ?Medication ?Instructions ?Recorded ?Confirmed ?Last Taken ?Type acetaminophen 325 mg capsule 650 mg PO QID PRN pain 08/25/24 Unknown History bisacodyl 10 mg rectal suppository 10 mg RECTAL DAILY PRN constipation 03/11/24 08/25/24 Unknown History ergocalciferol (vitamin D2) 1,250 1,250 mcg PO WEEKLY 03/11/24 08/25/24 03/09/24 History mcg (50,000 unit) capsule cholestyramine-aspartame 4 gram 1 ea PO TID 04/01/24 0 08/25/24 Unknown History oral powder for susp in a packet (Cholestyramine Light) magnesium citrate (Citrate of 296 ml PO DAILY PRN cons tipation 04/01/24 08/25/24 Unknown History Magnesia oral) magnesium hydroxide 400 mg/5 mL 30 ml PO DAILY PRN con stipation 04/01/24 08/25/24 Unknown History oral suspension (Bo Milk of Magnesia) buspirone 5 mg tablet 5 mg PO TID 07/13/24 5 Unknown History Allergies Allergy/AdvReac Type Severity Reaction Status Date / Time cortisone Allergy Intermediate Dyspnea / Verified 08/25/24 10:44 SOB Penicillins Allergy Intermediate Dyspnea / Verified 08/25/24 10:44 SOB ceftriaxone (From Rocephin) Allergy Difficulty Verified 08/25/24 10:44 Breathing Review of Systems 2 Review of Systems: All systems reviewed & are unremarkable except as noted in HPI and below PMFSH Past Medical History Medical History Pubic ramus fracture Diastolic dysfunction Echocardiogram October 2022: EF greater than 70% mildly increased left ventricular wall thickness, grade 1 diastolic dysfunction, patent foramen ovale visualized on agitated saline mild mitral valve regurgitation, mild tricuspid valve regurgitation mild pulmonary hypertension with RVSP of 37 Peripheral autonomic neuropathy due to diabetes mellitus Osteomyelitis of toe of left foot COVID-19 virus infection Renal osteodystrophy Erythropoietin deficiency anemia End-stage renal disease on hemodialysis Thursday Normal colonoscopy (08/2019) Tushar (1991) Gastroesophageal reflux disease Restless leg syndrome Renal cell carcinoma (2004) Obstructive sleep apnea No longer using CPAP after 40 lb weight loss. Coronary artery disease History of stent x3. Anemia of chronic disease Pericardial effusion (01/2020) Small pericardial effusion on echocardiogram, felt to be related to uremia. Peripheral vascular disease Crohn's disease History of kidney stones Peritonitis (01/2020) Surgical History Surgical History Amputation toe Left 2nd toe. History of complete ray amputation of second toe of left foot History of complete ray amputation of second toe of right foot History of cholecystectomy History of appendectomy History of foot surgery Repair of left foot fracture with pinning. History of partial nephrectomy (2004) Left partial nephrectomy for kidney cancer. History of tonsillectomy History of bilateral carpal tunnel release History of hysterectomy (1976) With cystocele and rectocele repairs. History of cardiac catheterization With stent x3. History of cystoscopy With ureteral stents for kidney stones. History of colonoscopy Family History Family History Father Renal cell carcinoma Acute myocardial infarction Cerebrovascular accident Colon polyp Heart disease Hypertension Mother Lung cancer Acute myocardial infarction Cerebrovascular accident Depression Heart disease Hypertension Son Asthma Social History Social History Social History: Patient is retired. 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 She had 1 son who at 50 years old heart attack. She has a 2nd son who is still living and he was her surrogate decision maker. To smoke 1 pack of cigarettes per day for about 30 years. She quit smoking in 1995. She denies any alcohol use or illicit substance use. She is living in [facility]. Surrogate medical decision maker: Dong Maher, son. Code status: DNR/DNI Smoking packs per day: 0.5 Smoking cigarettes per day: 10.0 Years smoked: 10 Smoking pack-years: 5.00 Smoking status: Former smoker Tobacco type: cigarettes Second hand tobacco smoke exposure: No Smoking end date: 03/16/93 Alcohol intake: never Substance use: never Do You Feel Safe in your Home?: Yes Lack of Transportation: No Lack of Food: Never True Current Housing: I Have Housing Concerned About Future Housing: No Difficulty Paying Gas/Electric Bills: No Difficulty Paying for Meds: No Currently Unemployed: No Education: High School Diploma/GED Difficulty w/ Childcare or Family Care: No Living arrangements: alone Additional living arrangements comments: , lives in [place]. 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 Spiritual care concerns: No Agree to blood products: Yes Exam 2 Narrative: APPEARANCE: Uncomfortable appearing HEAD: normocephalic, atraumatic. EYES: PERRLA/EOMI, conjunctivae clear. NOSE: Normal no drainage EARS:TMS clear with good light reflex. THROAT: Pharynx clear, no exudate. NECK: Supple. No adenopathy, no masses. RESPIRATORY: Airway patent, respirations nonlabored. Clear to auscultation bilaterally, no rales, rhonchi, wheezing. CARDIOVASCULAR: Regular rate and rhythm without murmurs rubs or gallops. ABDOMINAL: Soft, nontender, nondistended, normal bowel sounds MUSCULOSKELETAL: Moves all extremities. Strength/ROM intact, No edema, No calf tenderness. NEURO: Alert. Cranial nerves II through XII intact. SKIN: Warm, dry. Normal Color Course Vital Signs Vital signs: Vital Signs Temperature 98.3 F 12/14/24 12:24 Pulse Rate 116 H 12/14/24 12:24 Respiratory Rate 16 12/14/24 12:24 Blood Pressure 136/56 L 12/14/24 12:24 Pulse Oximetry 96 12/14/24 12:24 Oxygen Delivery Room Air 12/14/24 12:24 Temperature 98.3 F 12/14/24 12:24 Pulse Rate 74 12/14/24 15:18 Respiratory Rate 15 12/14/24 15:18 Blood Pressure 134/75 12/14/24 15:18 Pulse Oximetry 98 12/14/24 15:18 Oxygen Delivery Room Air 12/14/24 12:24 Medical Decision Making MDM Narrative Medical decision making narrative: 79-year-old female present ready department for evaluation for muscle cramping after her dialysis. Patient is currently afebrile with a leukocytosis of 10.8 hemoglobin 10.3. Patient has an INR 1.1. Patient's CMP is similar to her baseline. Patient was treated with p.o. Monson and on re-evaluation patient states she does feel improved. Differential Diagnosis Differential Diagnosis: Electrolyte abnormality, hypokalemia, hypomagnesemia, dehydration, restless leg, anxiety Vital Signs Vital Signs: Vital Signs Temperature 98.3 F 12/14/24 12:24 Pulse Rate 116 H 12/14/24 12:24 Respiratory Rate 16 12/14/24 12:24 Blood Pressure 136/56 L 12/14/24 12:24 Pulse Oximetry 96 12/14/24 12:24 Oxygen Delivery Room Air 12/14/24 12:24 Temperature 98.3 F 12/14/24 12:24 Pulse Rate 74 12/14/24 15:18 Respiratory Rate 15 12/14/24 15:18 Blood Pressure 134/75 12/14/24 15:18 Pulse Oximetry 98 12/14/24 15:18 Oxygen Delivery Room Air 12/14/24 12:24 Lab Data 12/14/24 14:03 12/14/24 14:03 Labs: Lab Results 12/14/24 Range/Units 14:03 WBC 10.8 H (4.5-10.0) K/mm3 RBC 3.34 L (4.2-5.4) M/mm3 Hgb 10.3 L (12.0-15.0) g/dL Hct 32.0 L (37.0-47.0) % MCV 95.8 (80-100) fl MCH 30.8 (26-34) pg MCHC 32.2 (32-36) g/dl RDW 16.4 H (11.5-14.5) % Plt Count 233 (150-375) k/mm3 MPV 8.6 (7.4-10.4) fl Immature Gran % (Auto) 1.8 H (0-0.5) % Neut % (Auto) 73.7 H (45.5-73.1) % Lymph % (Auto) 12.9 L (18.3-44.2) % [place] % (Auto) 8.2 (2.6-8.5) % Eos % (Auto) 2.9 (0-4.4) % Baso % (Auto) 0.5 (0.2-1.2) % Lymph # (Auto) 1.39 (0.9-3.2) K/mm3 [place] # (Auto) 0.9 H (0.1-0.6) K/mm3 Eos # (Auto) 0.3 (0-0.3) K/mm3 Baso # (Auto) 0.1 (0.0-0.1) K/mm3 Abs Immat Gran (auto) 0.19 H (0.00-0.031) K/mm3 Absolute Neuts (auto) 8.0 H (1.3-6.7) K/mm3 Absolute Nucleated RBC 0.000 (0.0-0.012) K/mm3 Nucleated RBC % 0.0 (0.0-0.2) % PT 13.7 (11.1-14.7) Seconds INR 1.1 APTT 25.2 (22.3-36.8) Seconds Sodium 136 L (137-145) mmol/L Potassium 3.9 (3.4-5.0) mmol/L Chloride 99 (98-107) mmol/L Carbon Dioxide 29 (22-30) mmol/L Anion Gap 8 (4-12) mmol/L BUN 28 H (7-17) mg/dL Creatinine 5.33 H (0.7-1.0) mg/dL Estim Creat Clear Calc 8 ml/min Estimated GFR 8 L (59 - ) Glucose 175 H (65-110) mg/dL Calcium 8.4 (8.4-10.2) mg/dL Magnesium 1.7 (1.6-2.3) mg/dL Total Bilirubin 0.4 (0.2-1.3) mg/dL AST 21 (14-36) U/L ALT 23 (6-35) U/L Alkaline Phosphatase 94 (38-126) U/L Total Protein 6.4 (6.3-8.2) g/dL Albumin 3.8 (3.5-5.1) g/dL Discharge Plan Discharge Clinical Impression: Cramp in muscle Patient Disposition: [facility] Condition: Stable Instructions: Antibiotic Form Additional Instructions: Have close follow-up with your primary care physician. If you have any worsening symptoms then please call or return to the emergency department. Patient Language: Bruneian Prescriptions: No Action dicyclomine 20 mg tablet 20 mg PO TID Qty: 90 5RF loperamide 2 mg tablet 4 mg PO QID PRN (Reason: loose stool) Qty: 100 5RF Cholestyramine Light 4 gram powder 4 g PO TID Qty: 239.4 5RF Rx Instructions: administer w/meal; avoid other meds within 1hr before or 4-6hr after dose budesonide 9 mg tablet,delayed and ext.release 9 mg PO DAILY Qty: 30 1RF escitalopram oxalate 10 mg tablet 10 mg PO DAILY Qty: 30 5RF acetaminophen 325 mg capsule 650 mg PO QID PRN (Reason: pain) bisacodyl 10 mg suppository 10 mg RECTAL DAILY PRN (Reason: constipation) ergocalciferol (vitamin D2) 1,250 mcg (50,000 unit) capsule 1,250 mcg PO WEEKLY Patient Comments: On Wednesdays loperamide 2 mg tablet 2 mg PO QID PRN (Reason: loose stool) Qty: 20 0RF cyclobenzaprine 5 mg tablet 5 mg PO TID PRN (Reason: muscle spasm) Qty: 10 0RF magnesium citrate [Citrate of Magnesia] Solution 296 ml PO DAILY PRN (Reason: constipation) magnesium hydroxide [Bo Milk of Magnesia] 400 mg/5 mL suspension 30 ml PO DAILY PRN (Reason: constipation) cholestyramine-aspartame [Cholestyramine Light] 4 gram powder in packet 1 ea PO TID hydrocodone-acetaminophen 5-325 mg tablet 1 tablet PO Q6H PRN (Reason: pain) Qty: 14 0RF atorvastatin 40 mg tablet 40 mg PO DAILY Qty: 90 2RF bupropion HCl 150 mg tablet extended release 24 hr 150 mg PO QAM Qty: 90 1RF diclofenac sodium [Voltaren Arthritis Pain] 1 % gel 2 g topical BID PRN (Reason: knee pain) Qty: 200 5RF Rx Instructions: apply to single elbow, wrist or hand; for hand includes palm/fingers/back of hand levetiracetam 500 mg tablet 500 mg PO Q12H Qty: 180 1RF mirtazapine 30 mg tablet 30 mg PO QHS Qty: 90 1RF pantoprazole 40 mg tablet,delayed release (DR/EC) 40 mg PO QAM Qty: 90 1RF clobetasol 0.05 % cream See Rx Instructions .ROUTE .COMPLEX Qty: 30 0RF Dose Instruction: APPLY TO AFFECTED AREAS TWICE DAILY Rx Instructions: APPLY TO AFFECTED AREAS TWICE DAILY buspirone 5 mg tablet 5 mg PO TID hydrocodone-acetaminophen 5-325 mg tablet 1 tablet PO QID PRN (Reason: pain) Qty: 120 0RF ropinirole 0.5 mg tablet 0.5 mg PO BID Qty: 180 1RF Follow-up/Referrals: Justen Singer MD [Primary Care Provider, Family Practice]
[2024-12-14 14:13] LABS: Hematocrit 32.0 % (37.0-47.0); Hemoglobin 10.3 g/dL (12.0-15.0); Immature Granulocyte Percent A 1.8 % (0-0.5); Lymphocytes Absolute Auto 1.39 K/mm3 (0.9-3.2); Mean Corpuscular HGB Conc 32.2 g/dl (32-36); Mean Corpuscular Hemoglobin 30.8 pg (26-34); Mean Corpuscular Volume 95.8 fl (80-100); Nucleated Red Blood Cells Absolute Auto 0.000 K/mm3 (0.0-0.012); Nucleated Red Blood Cells Perc 0.0 % (0.0-0.2); Platelet Count Result 233 k/mm3 (150-375); Red Blood Count 3.34 M/mm3 (4.2-5.4); White Blood Count 10.8 K/mm3 (4.5-10.0)
[2024-12-14 14:23] LABS: INR 1.1; Partial Thromboplastin Time 25.2 Seconds (22.3-36.8); Prothrombin Time 13.7 Seconds (11.1-14.7)
[2024-12-14 14:27] LABS: Alanine Aminotransferase 23 U/L (6-35); Albumin Level 3.8 g/dL (3.5-5.1); Alkaline Phosphatase 94 U/L (38-126); Anion Gap 8 mmol/L (4-12); Aspartate Amino Transferase 21 U/L (14-36); Bilirubin,Total 0.4 mg/dL (0.2-1.3); Blood Urea Nitrogen 28 mg/dL (7-17); Calcium 8.4 mg/dL (8.4-10.2); Carbon Dioxide 29 mmol/L (22-30); Chloride 99 mmol/L (98-107); Estimated CRCL calculation 8 ml/min; Estimated Glomerular Filt Rate 8; Glucose 175 mg/dL (65-110); Magnesium 1.7 mg/dL (1.6-2.3); Potassium 3.9 mmol/L (3.4-5.0); Sodium 136 mmol/L (137-145); Total Protein 6.4 g/dL (6.3-8.2)
== END 2024-12-14 15:21 ==
PROVIDERS: Emergency Provider Emergency Medicine; PCP Family Medicine Adolescent Medicine
DX: R25.2 Cramp and spasm (principal); M25.512 Pain in left shoulder; N18.6 End stage renal disease; I25.10 Atherosclerotic heart disease of native coronary artery without angina pectoris; Z87.891 Personal history of nicotine dependence
CPT/HCPCS: 36415; 80053; 83735; 85025; 85610; 85730; 99283; A9270

== ENCOUNTER 2025-01-17 07:42 | Emergency (ER) | payer MEDICARE, SELFPAY ==
--- NOTE | ~2025-01-17 | CT_ITS ---
EXAMINATION: CT cervical spine wo con COMPARISON: None HISTORY: unwitnessed fall TECHNIQUE: Axial images were obtained through the spine without IV contrast. Coronal, sagittal reconstruction images were obtained from the axial views. CT scan performed using dose optimization techniques including the following automated exposure control; adjustment of mA and/or kV; use of iterative reconstruction technique. Automatic exposure control was used to reduce radiation dose. Permanent radiation dose record is archived to PACS. FINDINGS: The vertebral heights are intact. No fracture or subluxation. There is moderate to severe loss of disc height C5-6 and C6-7 with moderate to severe canal and foraminal stenosis. Soft tissues unremarkable. Impression: No acute abnormality. Reviewed, dictated and finalized at location P. N PERFORMANCE CONSULTANT Impression: No acute abnormality.
--- NOTE | ~2025-01-17 | CT_ITS ---
EXAMINATION: CT brain wo con DATE: 01/17/2025 08:09 INDICATION: Head injury. TECHNIQUE: Computed tomography (CT) of the head was performed without intravenous contrast. The mA was adjusted according to patient size. Iterative reconstruction technique was employed. The dose-length product was 605.33 mGy-cm. 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 There are scattered areas of low attenuation in the cerebral white matter, which is within normal limits for the patient's age. There is no intracranial hemorrhage or acute infarction. There is a 7 mm calcified right parafalcine mass. There is ex vacuo dilatation of the trigone and occipital horn of right lateral ventricle. The orbits are normal. There is mild mucosal thickening in the paranasal sinuses. The mastoid air cells are normal. There is right frontal scalp soft tissue swelling. IMPRESSION: 1. 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 2. Stable 7 mm calcified right parafalcine mass, which may be a meningioma or a benign dural calcification. Reviewed, dictated and finalized at location E. E MAKER
[2025-01-17 07:42] VITALS: BP 139/79; PULSE 81; RESP 14; TEMP 36.7; O2SAT 97
--- NOTE | 2025-01-17 07:53 | ECG_ITS ---
Test Date: 2025-01-17 08:38:21 Measurements Intervals [place] Rate: 84 P: 0 IN: 0 QRS: -42 QRSD: 102 T: 74 QT: 388 QTc: 460 Interpretive Statements SINUS TACHYCARDIA LEFT AXIS DEVIATION [QRS AXIS < -30] Electronically Signed On 01-17-2025 21:20:39 [employer]EARCH & INSIGHTS EXECUTIVE by Maurice Kelley M.D.
--- NOTE | 2025-01-17 08:02 | ED.FALL ---
HPI - Fall General Chief Complaint: Fall Stated Complaint: fall Time Seen by Provider: 01/17/25 07:45 History of Present Illness HPI Narrative: Patient was sitting in her wheelchair today when she passed out, tipped forward and hit her head, loss of consciousness, states that this has happened in the past. No chest pain or shortness of breath. Unsure if this is because she is dehydrated. She is a dialysis patient. Related Data Home Medications ?Medication ?Instructions ?Recorded ?Confirmed ?Last Taken ?Type acetaminophen 325 mg capsule 650 mg PO QID PRN pain 03/11/24 08/25/24 Unknown History bisacodyl 10 mg rectal suppository 10 mg RECTAL DAILY PRN constipation 03/11/24 08/25/24 Unknown History ergocalciferol (vitamin D2) 1,250 1,250 mcg PO WEEKLY 03/11/24 08/25/24 03/09/24 History mcg (50,000 unit) capsule cholestyramine-aspartame 4 gram 1 ea PO TID 04/01/24 08/25/24 Unknown History oral powder for susp in a packet (Cholestyramine Light) magnesium citrate (Citrate of 296 ml PO DAILY PRN constipation 04/01/24 08/25/24 Unknown History Magnesia oral) magnesium hydroxide 400 mg/5 mL 30 ml PO DAILY PRN constipation 04/01/24 08/25/24 Unknown History oral suspension (Bo Milk of Magnesia) buspirone 5 mg tablet 5 mg PO TID 07/13/24 08/25/24 Unknown History Allergies Allergy/AdvReac Type Severity Reaction Status Date / Time cortisone Allergy Intermediate Dyspnea / Verified 08/25/24 10:44 SOB Penicillins Allergy Intermediate Dyspnea / Verified 08/25/24 10:44 SOB ceftriaxone (From Rocephin) Allergy Difficulty Verified 08/25/24 10:44 Breathing Review of Systems Review of Systems: All systems reviewed & are unremarkable except as noted in HPI and below PMFSH Past Medical History Medical History Pubic ramus fracture Diastolic dysfunction Echocardiogram October 2022: EF greater than 70% mildly increased left ventricular wall thickness, grade 1 diastolic dysfunction, patent foramen ovale visualized on agitated saline mild mitral valve regurgitation, mild tricuspid valve regurgitation mild pulmonary hypertension with RVSP of 37 Peripheral autonomic neuropathy due to diabetes mellitus Osteomyelitis of toe of left foot COVID-19 virus infection Renal osteodystrophy Erythropoietin deficiency anemia End-stage renal disease on hemodialysis Thursday Normal colonoscopy (08/2019) Tushar (1991) Gastroesophageal reflux disease Restless leg syndrome Renal cell carcinoma (2004) Obstructive sleep apnea No longer using CPAP after 40 lb weight loss. Coronary artery disease History of stent x3. Anemia of chronic disease Pericardial effusion (01/2020) Small pericardial effusion on echocardiogram, felt to be related to uremia. Peripheral vascular disease Crohn's disease History of kidney stones Peritonitis (01/2020) Surgical History Surgical History Amputation toe Left 2nd toe. History of complete ray amputation of second toe of left foot History of complete ray amputation of second toe of right foot History of cholecystectomy History of appendectomy History of foot surgery Repair of left foot fracture with pinning. History of partial nephrectomy (2004) Left partial nephrectomy for kidney cancer. History of tonsillectomy History of bilateral carpal tunnel release History of hysterectomy (1976) With cystocele and rectocele repairs. History of cardiac catheterization With stent x3. History of cystoscopy With ureteral stents for kidney stones. History of colonoscopy Family History Family History Father Renal cell carcinoma Acute myocardial infarction Cerebrovascular accident Colon polyp Heart disease Hypertension Mother Lung cancer Acute myocardial infarction Cerebrovascular accident Depression Heart disease Hypertension Son Asthma Social History Social History Social History: Patient is retired. 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 She had 1 son who at 50 years old heart attack. She has a 2nd son who is still living and he was her surrogate decision maker. To smoke 1 pack of cigarettes per day for about 30 years. She quit smoking in 1995. She denies any alcohol use or illicit substance use. She is living in [facility]. Surrogate medical decision maker: Dong Maher, son. Code status: DNR/DNI Smoking packs per day: 0.5 Smoking cigarettes per day: 10.0 Years smoked: 10 Smoking pack-years: 5.00 Smoking status: Former smoker Tobacco type: cigarettes Second hand tobacco smoke exposure: No Smoking end date: 03/16/93 Alcohol intake: never Substance use: never Do You Feel Safe in your Home?: Yes Lack of Transportation: No Lack of Food: Never True Current Housing: I Have Housing Concerned About Future Housing: No Difficulty Paying Gas/Electric Bills: No Difficulty Paying for Meds: No Currently Unemployed: No Education: High School Diploma/GED Difficulty w/ Childcare or Family Care: No Living arrangements: alone Additional living arrangements comments: , lives in [place]. 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 Spiritual care concerns: No Agree to blood products: Yes Exam Narrative: EXAMINATION OF ORGAN SYSTEMS/BODY AREAS: Constitutional: Vital signs per nursing GENERAL:[No acute distress, non-toxic appearing.] HEAD: Large hematoma right forehead EYES: EOMI, conjunctiva normal ENT: Hearing grossly intact LUNGS: Nonlabored breathing. HEART: [Regular rate and rhythm] ABD: [Soft], [nontender to palpation] EXT: Normal range of motion SKIN: Hematoma right forehead NEURO: [Alert and oriented x 3. No gross focal sensory or strength deficits.] PSYCH: Normal affect Course Vital Signs Vital signs: Vital Signs Temperature 98.1 F 01/17/25 07:42 Pulse Rate 81 01/17/25 07:42 Respiratory Rate 14 01/17/25 07:42 Blood Pressure 139/79 01/17/25 07:42 Pulse Oximetry 97 01/17/25 07:42 Oxygen Delivery Room Air 01/17/25 07:42 Temperature 98.1 F 01/17/25 07:42 Pulse Rate 81 01/17/25 07:42 Respiratory Rate 14 01/17/25 07:42 Blood Pressure 139/79 01/17/25 07:42 Pulse Oximetry 97 01/17/25 07:42 Oxygen Delivery Room Air 01/17/25 07:42 MDM - Fall MDM Narrative Medical decision making narrative: Patient presents here after she passed out and fell out of her wheelchair, smacking her head on the ground. Denies loss of consciousness, nausea vomiting, chest pain or shortness of breath, cannot recall what happened before this, denies any symptoms prior to passing out. States she has had this happen before when she has been dehydrated. She is well-appearing here either she does have a large bruise to her right forehead, otherwise no tenderness anywhere else, will obtain CT brain and C-spine to rule out acute bleeding and fracture. Imaging thankfully without acute abnormality, labs within acceptable limits, EKG on my independent interpretation here shows regular rate 84, QRS 102, QTC 460, no obvious ST elevations, left axis deviation. I did discuss all these findings with the patient, at this point she states she needs to leave now because she has to go to her orthopedic appointment, she feels comfortable with discharge, I have given her strict return precautions and she is agreeable to plan Lab Data 01/17/25 08:44 01/17/25 08:44 Labs: Lab Results 01/17/25 Range/Units 08:44 WBC 9.2 (4.5-10.0) K/mm3 RBC 3.46 L (4.2-5.4) M/mm3 Hgb 10.4 L (12.0-15.0) g/dL Hct 33.3 L (37.0-47.0) % MCV 96.2 (80-100) fl MCH 30.1 (26-34) pg MCHC 31.2 L (32-36) g/dl RDW 16.4 H (11.5-14.5) % Plt Count 233 (150-375) k/mm3 MPV 8.4 (7.4-10.4) fl Immature Gran % (Auto) 2.4 H (0-0.5) % Neut % (Auto) 68.5 (45.5-73.1) % Lymph % (Auto) 15.4 L (18.3-44.2) % [place] % (Auto) 9.6 H (2.6-8.5) % Eos % (Auto) 3.7 (0-4.4) % Baso % (Auto) 0.4 (0.2-1.2) % Lymph # (Auto) 1.42 (0.9-3.2) K/mm3 [place] # (Auto) 0.9 H (0.1-0.6) K/mm3 Eos # (Auto) 0.3 (0-0.3) K/mm3 Baso # (Auto) 0.0 (0.0-0.1) K/mm3 Abs Immat Gran (auto) 0.22 H (0.00-0.031) K/mm3 Absolute Neuts (auto) 6.3 (1.3-6.7) K/mm3 Absolute Nucleated RBC 0.000 (0.0-0.012) K/mm3 Nucleated RBC % 0.0 (0.0-0.2) % Sodium 138 (137-145) mmol/L Potassium 4.5 (3.4-5.0) mmol/L Chloride 98 (98-107) mmol/L Carbon Dioxide 32 H (22-30) mmol/L Anion Gap 8 (4-12) mmol/L BUN 30 H (7-17) mg/dL Creatinine 5.28 H (0.7-1.0) mg/dL Estim Creat Clear Calc 8 ml/min Estimated GFR 8 L (59 - ) Glucose 99 (65-110) mg/dL Calcium 8.7 (8.4-10.2) mg/dL Total Bilirubin 0.5 (0.2-1.3) mg/dL AST 22 (14-36) U/L ALT 21 (6-35) U/L Alkaline Phosphatase 81 (38-126) U/L Total Protein 6.5 (6.3-8.2) g/dL Albumin 3.8 (3.5-5.1) g/dL Discharge Plan Discharge Clinical Impression: Fall, Facial hematoma Patient Disposition: Home Condition: Stable Instructions: Fall Prevention for Older Adults (ED), Hematoma (ED) Additional Instructions: Please follow up with your doctor; use ice on your bruise in you can take Tylenol as needed for pain. You can always return for any further issues. Patient Language: Bulgarian Prescriptions: No Action dicyclomine 20 mg tablet 20 mg PO TID Qty: 90 5RF Cholestyramine Light 4 gram powder 4 g PO TID Qty: 239.4 5RF Rx Instructions: administer w/meal; avoid other meds within 1hr before or 4-6hr after dose budesonide 9 mg tablet,delayed and ext.release 9 mg PO DAILY Qty: 30 1RF escitalopram oxalate 10 mg tablet 10 mg PO DAILY Qty: 30 5RF acetaminophen 325 mg capsule 650 mg PO QID PRN (Reason: pain) bisacodyl 10 mg suppository 10 mg RECTAL DAILY PRN (Reason: constipation) ergocalciferol (vitamin D2) 1,250 mcg (50,000 unit) capsule 1,250 mcg PO WEEKLY Patient Comments: On Wednesdays loperamide 2 mg tablet 2 mg PO QID PRN (Reason: loose stool) Qty: 20 0RF cyclobenzaprine 5 mg tablet 5 mg PO TID PRN (Reason: muscle spasm) Qty: 10 0RF magnesium citrate [Citrate of Magnesia] Solution 296 ml PO DAILY PRN (Reason: constipation) magnesium hydroxide [Bo Milk of Magnesia] 400 mg/5 mL suspension 30 ml PO DAILY PRN (Reason: constipation) cholestyramine-aspartame [Cholestyramine Light] 4 gram powder in packet 1 ea PO TID hydrocodone-acetaminophen 5-325 mg tablet 1 tablet PO Q6H PRN (Reason: pain) Qty: 14 0RF atorvastatin 40 mg tablet 40 mg PO DAILY Qty: 90 2RF bupropion HCl 150 mg tablet extended release 24 hr 150 mg PO QAM Qty: 90 1RF diclofenac sodium [Voltaren Arthritis Pain] 1 % gel 2 g topical BID PRN (Reason: knee pain) Qty: 200 5RF Rx Instructions: apply to single elbow, wrist or hand; for hand includes palm/fingers/back of hand levetiracetam 500 mg tablet 500 mg PO Q12H Qty: 180 1RF mirtazapine 30 mg tablet 30 mg PO QHS Qty: 90 1RF pantoprazole 40 mg tablet,delayed release (DR/EC) 40 mg PO QAM Qty: 90 1RF clobetasol 0.05 % cream See Rx Instructions .ROUTE .COMPLEX Qty: 30 0RF Dose Instruction: APPLY TO AFFECTED AREAS TWICE DAILY Rx Instructions: APPLY TO AFFECTED AREAS TWICE DAILY buspirone 5 mg tablet 5 mg PO TID hydrocodone-acetaminophen 5-325 mg tablet 1 tablet PO QID PRN (Reason: pain) Qty: 120 0RF ropinirole 1 mg tablet 1 mg PO BID Qty: 180 1RF loperamide 2 mg tablet 4 mg PO QID PRN (Reason: loose stool) Qty: 100 5RF Follow-up/Referrals: Justen Singer MD [Primary Care Provider, Family Practice] - 2 Days
[2025-01-17 08:49] LABS: Hematocrit 33.3 % (37.0-47.0); Hemoglobin 10.4 g/dL (12.0-15.0); Immature Granulocyte Percent A 2.4 % (0-0.5); Lymphocytes Absolute Auto 1.42 K/mm3 (0.9-3.2); Mean Corpuscular HGB Conc 31.2 g/dl (32-36); Mean Corpuscular Hemoglobin 30.1 pg (26-34); Mean Corpuscular Volume 96.2 fl (80-100); Nucleated Red Blood Cells Absolute Auto 0.000 K/mm3 (0.0-0.012); Nucleated Red Blood Cells Perc 0.0 % (0.0-0.2); Platelet Count Result 233 k/mm3 (150-375); Red Blood Count 3.46 M/mm3 (4.2-5.4); White Blood Count 9.2 K/mm3 (4.5-10.0)
--- OUTSIDE RECORDS SUMMARY | 2025-01-17 08:59 | XMS_ITS | Clinical Summary ---
Author Organization [facility] Address [address], [place] [address] Phone Care Team Providers Care Material Assembler Name Role Phone Justen Bonds MD Primary Care Provider [phone] Allergies Active Allergy Reactions Criticality Noted Date [...] Immunizations Immunization Administration Dates Next Due Influenza TIV (IM) 01/06/2019 Influenza, split virus, trivalent, PF 03/26/2012 Pneumococcal Conjugate 03/14/2019(Deferred: Naomy ent Refused) Family [...] Vaccine (#1) 2024 01/06/2019, [address] [facility] PM INTERFACED INSURANCE Care Teams Material Assembler Relationship Specialty Start Date End Date Justen Bonds MD [phone] [id number] PCP - General Family Medicine 01/10/19
--- OUTSIDE RECORDS SUMMARY | 2025-01-17 08:59 | XMS_ITS | Clinical Summary ---
Author Organization [facility] Address [address] [facility] [place] [address] Phone Care Team Providers Care Litigation Attorney Associate Name Role Phone Justen Singer MD Primary Care Provider [phone] Allergies Active Allergy Reactions Criticality Noted Date [...] Comments Blood Pressure 173/60 04/24/2020 9:15 AM TECHNOLOGY RECRUITER Pulse 59 04/24/2020 6:13 AM TECHNOLOGY RECRUITER Temperature 36.6 C (97.8 F) 04/24/2020 6:13 AM TECHNOLOGY RECRUITER Respiratory Rate 17 04/24/2020 9:15 AM TECHNOLOGY RECRUITER Oxygen Saturation 97% 04/24/2020 9:15 AM TECHNOLOGY RECRUITER Inhaled Oxygen Concentration - - Weight 68 kg (150 lb) 04/24/2020 6:13 AM TECHNOLOGY RECRUITER Height 160 cm (5' 3) 04/24/2020 6:13 AM TECHNOLOGY RECRUITER Body Mass Index 26.57 04/24/2020 6:13 AM TECHNOLOGY RECRUITER Plan of Treatment Health Maintenance Due Date [...] history exists Medical Devices Implanted Type Area Regional Marketing Manager Device Identifier Shelf Expiration Date Model / Serial / Lot 3 Cardiac Stents Left Renal Stent Explanted Type Area Regional Marketing Manager Device Identifier Shelf Expiration Date Model / Serial / Lot Cath Pd Howard Curl 2cuff [id number] - [id number] Implanted:Qty : 1 on 01/25/2020 by Rafita Bartlett MD at [facility] Explanted:Qty : 1 on 04/24/2020 by Hawk Angel MD at [facility] Catheter N/A: Abdomen [employer] - COVIDIEN 09/12/2024 [id number] / / [id number] Insurance MEDICARE PART A AND B [facility] SUPP Advance Directives For more information, please contact: [phone] * Full Code (Latest Code Status on File) Date Activated Date Inactivated Comments 04/24/2020 7:08 AM 04/24/2020 11:55 AM * Full Code Date Activated Date Inactivated Comments 04/24/2020 5:39 AM 04/24/2020 7:07 AM * Full Code Date Activated Date Inactivated Comments 01/25/2020 5:51 AM 01/26/2020 7:33 PM Care Teams Litigation Attorney Associate Relationship Specialty Start Date End Date Justen Singer MD PCP - General Family Practice 01/25/20
[2025-01-17 09:00] LABS: Alanine Aminotransferase 21 U/L (6-35); Albumin Level 3.8 g/dL (3.5-5.1); Alkaline Phosphatase 81 U/L (38-126); Anion Gap 8 mmol/L (4-12); Aspartate Amino Transferase 22 U/L (14-36); Bilirubin,Total 0.5 mg/dL (0.2-1.3); Blood Urea Nitrogen 30 mg/dL (7-17); Calcium 8.7 mg/dL (8.4-10.2); Carbon Dioxide 32 mmol/L (22-30); Chloride 98 mmol/L (98-107); Estimated CRCL calculation 8 ml/min; Estimated Glomerular Filt Rate 8; Glucose 99 mg/dL (65-110); Potassium 4.5 mmol/L (3.4-5.0); Sodium 138 mmol/L (137-145); Total Protein 6.5 g/dL (6.3-8.2)
[2025-01-17 09:01] VITALS: BP 131/67; PULSE 86; RESP 14; O2SAT 99
[2025-01-17 09:31] VITALS: BP 143/55; PULSE 90; RESP 20; O2SAT 98
--- NOTE | 2025-01-17 10:19 | PC.NURSE ---
pt ride is on their way to take pt home. pt was given socks due to not having any shoes. pt given water and a warm blanket and placed in wheelchair in waiting room to wait for her ride
[2025-01-17 10:21] VITALS: BP 137/67; PULSE 79; RESP 18; O2SAT 98
== END 2025-01-17 10:24 ==
PROVIDERS: Emergency Provider Emergency Medicine; PCP Family Medicine Adolescent Medicine
DX: S00.83XA Contusion of other part of head, initial encounter (principal); N18.6 End stage renal disease; Z99.2 Dependence on renal dialysis; K21.9 Gastro-esophageal reflux disease without esophagitis; I25.10 Atherosclerotic heart disease of native coronary artery without angina pectoris; G47.30 Sleep apnea, unspecified; Z95.5 Presence of coronary angioplasty implant and graft; Z87.442 Personal history of urinary calculi; W05.0XXA Fall from non-moving wheelchair, initial encounter
CPT/HCPCS: 36415; 70450; 72125; 80053; 85025; 93005; 99284

== ENCOUNTER 2025-01-29 08:54 | Emergency (ER) | payer MEDICARE, SELFPAY ==
--- OUTSIDE RECORDS SUMMARY | 2024-12-12 07:17 | XMS_ITS | Continuity of Care Document ---
Author Organization [facility] Address [address] [place] [address] Phone Care Team Providers Care Document Control Specialist Name Role Phone Tyree MODI, Veeral Unavailable [...] Copied on Encounter [facility], [address] [place] [address], [id number], [place] tel:[phone] [facility] No Information Nov- 5 Bhoot Veeral. [address], [place], [address], [place]. tel:[phone] [facility], [address] [place] [address], [id number], [place] tel:[phone] [facility] End stage renal disease Nov- 5 Bhoot Veeral. [address], [place], [address], [place]. tel:[phone] Referring Provider: Jamshid Owens, [address] [place] [address], [address]. tel:[phone] [facility], [address] [place] [address], [id number], [place] tel:[phone] [facility] End stage renal disease Nov-2 5 Bhoot Veeral. [address], [place], [address], [place]. tel:[phone] Referring Provider: Jamshid Owens, [address] [place] [address], [address]. tel:[phone] [facility], [address] [place] [address], [id number], [place] tel:[phone] [facility] No Information Nov- 5 Bhoot Veeral. [address], [place], [address], [place]. tel:[phone] [facility], [address] [place], [place], [id number], [place] tel:[phone] [facility] Compression of VeinEnd stage renal disease May-2 5 [place] Paulo . [address] [place] [address], [id number] , . tel:[phone] Referring Provider: Jamshid Owens, [address] [place] [address], [address]. tel:[phone] [facility], [address] [place] [address], [id number], [place] tel:[phone] [facility] Compression of VeinEnd stage renal disease May-2 5 [place] Paulo . [address] [place] [address], [id number] , [place]. [phone] Referring Provider: Jamshid Owens, [address] [place] [address], [id number]. tel:[phone] [facility], [address] [place] [address], [id number], [place] tel:[phone] [facility] Stricture of ArteryEnd stage renal disease Oct-0 4 [place] Paulo . [address] [place] [address], [id number] , [place]. tel:[phone] Referring Provider: Jamshid Owens, [address] [place] [address], [address]. tel:[phone] [facility], [address] [place] [address], [id number], [place] tel:[phone] [facility] End stage renal diseaseStricture of Artery Oct-0 4 [place] Paulo . [address] [place] [address], [id number] , [place]. tel:[phone] Referring Provider: Jamshid Owens, [address] [place] [address], [address]. tel:[phone] [facility], [address] [place] [address], [id number], tel:[phone] [facility] Compression of VeinEnd stage renal disease Sep-0 6 4 Lock[place]danny Salmerondro . [address] [place], [place], [id number] , [place]. [phone] Referring Provider: Jamshid Owens, [address] [place] [address], [address]. tel:[phone] [facility], [address] [facility], [place], [place], [id number], [place] tel:[phone] [facility] Compression of VeinEnd stage renal disease Sep-0 4 Fabián Paulo . [address] [place], [place], [id number] , [place]. [phone] Referring Provider: Jamshid Owens, [address] [place] [address], [id number]. tel:[phone] As per patient privacy policy some of the clinical information may not be visible. Family History Family Member Type Diagnosis Age At Onset No Information Payers Payer name Insurance type Covered libertarian ID Ok cisse(s) Medicare [place] MB [id number] [facility] Mcaid [id number] Social History Type Description Quantity Date Captured Comments Sex Female Smoking Status No Information Gender Identity Female Chief Complaint And Reason For Visit No Information Reason For Referral Reason For Referral No Information Plan Of Treatment Date Type Action Status Appointment Layla Maher // LILIA WINTER 6 Month F/u BOOKED Future Order: Radiology Order Up per Body Flouroscopy ([id number]), Ordered on: Ordered Future Order: Radiology Order Up per Body Flouroscopy ([id number]), Ordered on: Ordered Future Order: Radiology Order Up per Body Flouroscopy ([id number]), Ordered on: Ordered Future Order: Radiology Order Up per Body Flouroscopy ([id number]), Ordered on: Ordered History Of Present Illness Encounter Date Complaint History Of Prese nt Illness No Information Functional Status Date Functional Assessmen t No Information Instructions Date Instruction Additional Infor mation No Information Assessments Type Assessment Date No Information Patient Care Teams Name Effective Dates (start - stop) Status Members No Information
--- OUTSIDE RECORDS SUMMARY | 2024-12-12 07:17 | XMS_ITS | Continuity of Care Document ---
Author Organization [facility] Address [address] [place] [address] Phone Care Team Providers Care Children'S Counselor Name Role Phone Tyree MODI, Veeral Unavailable [...] Diagnoses Date Provider Providers Copied on Encounter [facility], [address] [place] [address], [id number], [place] tel:[phone] [facility] No Information Nov- 5 Bhoot Veeral. [address], [place], [address], [place]. tel:[phone] [facility], [address] [place] [address], [id number], [place] tel:[phone] [facility] End stage renal disease Nov- 5 Bhoot Veeral. [address], [place], [address], [place]. tel:[phone] Referring Provider: Jamshid Owens, [address] [place] [address], [address]. tel:[phone] [facility], [address] [place] [address], [id number], [place] tel:[phone] [facility] End stage renal disease Nov-2 5 Bhoot Veeral. [address], [place], [address], [place]. tel:[phone] Referring Provider: Jamshid Owens, [address] [place] [address], [address]. tel:[phone] [facility], [address] [place] [address], [id number], [place] tel:[phone] [facility] No Information Nov- 5 Bhoot Veeral. [address], [place], [address], [place]. tel:[phone] [facility], [address] [place], [place], [id number], [place] tel:[phone] [facility] Compression of VeinEnd stage renal disease May-2 5 [place] Paulo . [address] [place], [place], [id number] , . tel:[phone] Referring Provider: Jamshid Owens, [address] [place] [address], [address]. tel:[phone] [facility], [address] [place] [address], [id number], [place] tel:[phone] [facility] End stage renal diseaseCompression of Vein May-2 5 [place] Paulo . [address] [place] [address], [id number] , [place]. [phone] Referring Provider: Jamshid Owens, [address] [place] [address], [address]. tel:[phone] [facility], [address] [place] [address], [id number], [place] tel:[phone] [facility] Stricture of ArteryEnd stage renal disease Dec-0 4 [place] Paulo . [address] [place] [address], [id number] , [place]. [phone] Referring Provider: Jamshid Owens, [address] [place] [address], [address]. tel:[phone] [facility], [address] [place] [address], [id number], [place] tel:[phone] [facility] Stricture of ArteryEnd stage renal disease Oct-0 4 [place] Paulo . [address] [place] [address], [id number] , [place]. tel:[phone] Referring Provider: Jamshid Owens, [address] [place] [address], [address]. tel:[phone] [facility], [address] [place] [address], [id number], tel:[phone] [facility] Compression of VeinEnd stage renal disease Sep-0 6 4 Fabián Fairo . [address] [place], [place], [id number] , [place]. [phone] Referring Provider: Jamshid Owens, [address] [place] [address], [address]. tel:[phone] [facility], [address] [place], [place], [id number], tel:[phone] [facility] End stage renal diseaseCompression of Vein Sep-0 4 [place] Paulo . [address] [place], [place], [id number] , [place]. [phone] Referring Provider: Jamshid Owens, [address] [place] [address], [address]. tel:[phone] As per patient privacy policy some of the clinical information may not be visible. Family History Family Member Type Diagnosis Age At Onset No Information Payers Payer name Insurance type Covered green party ID Ok cisse(s) Medicare [place] MB [id number] [facility] Mcaid [id number] Social History Type Description Quantity Date Captured Comments Sex Female Smoking Status No Information Gender Identity Female Chief Complaint And Reason For Visit No Information Reason For Referral Reason For Referral No Information Plan Of Treatment Date Type Action Status Appointment Layla Maher // LILIA WINTER 6 Month F/u BOOKED Future Order: Radiology Order Up per Body Flouroscopy ([id number]), Ordered on: Ordered Future Order: Radiology Order Up per Body Flouroscopy ([id number]), Ordered on: Ordered Future Order: Radiology Order Up per Body Flouroscopy ([id number]), Ordered on: Ordered Future Order: Radiology Order Up per Body Flouroscopy ([id number]), Ordered on: Ordered History Of Present Illness Encounter Date Complaint History Of Prese nt Illness No Information Functional Status Date Functional Assessmen t No Information Instructions Date Instruction Additional Infor mation No Information Assessments Type Assessment Date No Information Patient Care Teams Name Effective Dates (start - stop) Status Members No Information
--- NOTE | ~2025-01-29 | XR_ITS ---
Examination: XR pelvis 1-2V, XR knee RT 3V, XR knee LT 3V Clinical History: fall Comparison: Left knee radiographs 08/04/2024 Right knee radiographs 08/04/2024 CT abdomen and pelvis 06/29/2024 Technique: AP pelvis, 3 views right knee, 3 views left knee Findings/impression: Pelvis: 1. No acute fracture identified, but significant overlying soft tissue artifact and osteopenia. 2. Chronic fracture right inferior pubic ramus. Right knee: 1. Joint effusion. 2. No acute fracture or dislocation. 3. Severe lateral compartment joint space narrowing. Moderate patellofemoral compartment joint space narrowing. 4. Mild tricompartmental marginal osteophytes. 5. Chondrocalcinosis. 6. Peripheral arterial disease. Left knee: 1. Possible small joint effusion. 2. No acute fracture or dislocation. 3. Moderate lateral compartment joint space narrowing. 4. Patellar marginal osteophytes. 5. Chondrocalcinosis. Reviewed, dictated and finalized at location R. IAL DEPUTY SHERIFF
[2025-01-29 09:03] VITALS: BP 157/69; PULSE 85; RESP 20; TEMP 36.4; O2SAT 100
--- OUTSIDE RECORDS SUMMARY | 2025-01-29 10:25 | XMS_ITS | Encounter Summary ---
Author Organization [facility] Address [address] [place] [address] Phone Care Team Providers Care Pulp Maker Name Role Phone Justen Singer MD Primary Care Prov ider Justen Singer MD Primary Care Prov ider Lita Elizabeth RN Unavailable Jamshid Joe MD Unavailable [phone] Alex Edgar MD Unavailable Encounter Details Date Type Department Care Team (Late st Contact Info) Description 12/15/2019 Telephone [facility] Cardiology [address] [place] [address] [place] [address] Alex Edgar MD [address] [facility] [address] [place], [place] [id number] Social History Tobacco Use Types Packs/Day Years Used Date Smoking Tobacco: Former Smokeless Tobacco: Never Comments Unknown Sex and Gender Information Value Date Recorded Sex Assigned at Not on file Legal Sex Female 6:58 AM NET UI DEVELOPER Gender Identity Not on file Sexual Orientation Not on file documented as of this encounter Plan of Treatment Not on file documented as of this encounter Visit Diagnoses Not on filedocumented in this encounter Additional Health Concerns Infection Onset Date Last Indicated Resolved Time COVID19 03/19/2020 03/19/2020 04/02/2020 3:07 AM NET UI DEVELOPER documented as of this encounter Care Teams Pulp Maker Relationship Specialty Start Date End Date Justen Singer MD PCP - General 03/27/17 08/26/20 Justen Singer MD PCP - General Family Medicine 08/27/20 Lita Elizabeth, RN [address] [id number] Registered Nurse Shrimping Boat Captain 08/27/20 Jamshid Joe MD [address] [address] Referring Physician Nephrology 10/08/20 Alex Edgar MD [address] [address] Referring Physician Cardiology 10/08/20 documented as of this encounter
--- OUTSIDE RECORDS SUMMARY | 2025-01-29 10:25 | XMS_ITS | Clinical Summary ---
Author Organization [facility] Address [address] [facility], [address] [place] [address] Care Team Providers Care Global Creative Chairman Name Role Phone Justen Singer MD Primary Care Prov ider Jamshid Joe MD Unavailable [phone] Alex Edgar MD Unavailable [phone] Allergies Active Allergy Reactions Criticality Noted [...] mcg tablet Take 75 mcg by mouth gun perforator loader before breakfast Active Vitamin D2 1,250 mcg [...] - 11/01/2024 11:59 PM CDT Hospital Encounter [address] [address] Abdominal pain, unspecified abdominal location; Abdomen enlarged Discharge Disposition: Discharge to home or self care from Last 3 Months Immunizations Immunization Administration Dates Next Due Influenza, Trivalent, Preservative Free, Intramu scular 03/26/2012 Surgical History Surgery Date Site/Laterality Comments [place] LAPAROSCOPY SURG PARTIAL NEPHRECTOMY Left Kidney Surgery Laparoscopic Partial Nephrectomy - oncocytoma (Added by TW Conv) APPENDECTOMY Appendectomy - (Added by TW Conv) HYSTERECTOMY Hysterectomy - (Added by TW Conv) FOOT FRACTURE SURGERY Treatment Of Foot Fracture - 2004 (Added by TW Conv) CHOLECYSTECTOMY Cholecystectomy - 2005 (Added by TW Conv) [place] PRQ TRLUML CORONARY STENT W/ANGIO ONE ART/BRNCH [...] TW Conv) Atherosclerotic heart diseas e of galena coronary artery without angina pectoris Arteriosclerot ic [...] on file Legal Sex Female 6:58 AM MOTOR ASSEMBLY SUPERVISOR Gender Identity Not on file Sexual Orientation Not on file Last Filed Vital Signs Vital Sign Reading Time Taken Comments Blood Pressure 178/70 05/06/2022 9:26 AM MOTOR ASSEMBLY SUPERVISOR Pulse 73 05/06/2022 9:26 AM MOTOR ASSEMBLY SUPERVISOR Temperature 36.6 C (97.8 F) 08/26/2021 2:10 PM CDT Respiratory Rate 18 03/19/2020 8:41 PM MOTOR ASSEMBLY SUPERVISOR Oxygen Saturation 90% 05/06/2022 9:26 AM MOTOR ASSEMBLY SUPERVISOR Inhaled Oxygen Concentration - - Weight 73.9 kg (163 lb) 05/06/2022 9:26 AM MOTOR ASSEMBLY SUPERVISOR Height 160 cm (5' 3) 05/06/2022 9:26 AM MOTOR ASSEMBLY SUPERVISOR Body Mass Index 28.87 05/06/2022 9:26 AM MOTOR ASSEMBLY SUPERVISOR Plan of Treatment Health Maintenance Due Date Last Done Comments Albumin Creatinine Ratio, Urine 1945 Depression Screening 1945 Fall Risk Assessment 1945 Osteoporosis Screening-Bone Density Scan 1945 Dilated Eye Exam 1945 Foot Exam 1945 Zoster Vaccine (1 of 2) 1964 Well Visit 65+ 2010 DTaP/Tdap/Td Vaccine (1 [...] Dipak Bruno M.D. KT T: Report ID: [id number] Reading Location: [place] [address] Procedure Note Dipak Bruno MD - 11/02/2024 [...] Dipak Bruno M.D. KT T: Report ID: [id number] Reading Location: [id number] us Jamshid Joe MD IMG US PROCEDURES Final Resu lt * (ABNORMAL) eGFR (11/23/2020 12:05 PM CDT) eGFR 8(L) 90 - 130 mL/min/1.7 3 m2 [facility] Comment: Interpretive Data Reference Interval [...] Rose MD LAB BLOOD ORDERABLES Final Result [facility] [place] [address] * Hepatitis C antibody (11/23/2020 12:05 PM CDT) Pathologist [facility] Hep C Ab Nonreactive Nonreactive [facility] Comment:Antibodies to HCV no t detected. Does NOT exclude the possibility of recent exposure to HCV. Blood 11/23/2020 12:0 5 PM CDT 11/23/2020 12:20 PM CDT Jani Rose MD LAB MICROBIOLOGY - GENERAL ORDERABLES Edited Result - Final Performing Organization Address [facility] Co de Phone Number [facility] [place] [address] * (ABNORMAL) Hemoglobin A1c (11/23/2020 12:05 PM CDT) Hgb A1C 6.1(H) 4.0 - 5.6 % [facility] Estimated Average Glucose 128 mg/dL [facility] Comment: The ADA recommends reporting an [...] Final Result Performing Organization Address [facility] Co de Phone Number [facility] Department [place] [address] * (ABNORMAL) Lipid panel (11/23/2020 12:05 PM CDT) Cholesterol 148 30 - 199 mg/dL [facility] Comment: Interpretive Data Ages < [...] revised on 2017. Triglycerides 303(H) <=149 mg/dL [facility] Comment: Interpretive Data Ages < or [...] MD LAB BLOOD ORDERABLES Final Result [facility] [address] [facility] [place] [address] from Last 3 Months or Most Recently Relevant to Health Maintenance Insurance MEDICARE [facility] MEDICARE [facility] MEDICARE IDPA [facility] MEDICARE SUPPLEMENT Member Subscriber Plan / Payer (Ef fective 2024-Present) Name:Layla Maher Relation to Subscriber:Self Name:Layla Maher Payer ID:[id number] Group ID:Not on file Type:[employer] Address: [address] [place] [id number] Care Teams Global Creative Chairman Relationship Specialty Start Date End Date Justen Singer MD PCP - General Family Medicine 08/27/20 Jamshid Joe MD Referring Physician Nephrology 10/08/20 Alex Edgar MD Referring Physician Cardiology 10/08/20
--- OUTSIDE RECORDS SUMMARY | 2025-01-29 10:26 | XMS_ITS | Clinical Summary ---
Author Organization [facility] Address [address] [place] [address] Care Team Providers Care Chemist Organic Name Role Phone Justen Singer MD Primary Care Provider + Source Comments [facility],non-owned Affiliates and Associated Physician Practices is amultiple site organization consisting of ambulatory clinics and hospital sitesin [place], [place], [place] and [place]. This disclosure is being madepursuant to the Care Everywhere program and may not contain all information available regarding this patient. Last updated 17.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 Treatment target values recommended by ADA and other clinical organizations should be used to evaluate metabolic control in patients. Reference: [place] Diabetes Association, Standards of Care in Diabetes [...] LAB - CHEMISTRY ORDERABLES Mai escalona Result [facility] [address] [place] [address], [facility] [phone] from Last 3 Months or Most Recently Relevant to [place] [address] MEDICARE [facility] MEDICARE MEDICARE Advance Directives Documents on File Type Date Recorded Patient Registrar Museum Expl anation Adv Directive/Living Will/POA 08/15/2022 11:36 [...] 3:50 PM 10/30/2021 11:48 AM Care Teams Chemist Organic Relationship Specialty Start Date End Date Justen Singer MD [address] [address] PCP - General 02/14/20
--- OUTSIDE RECORDS SUMMARY | 2025-01-29 10:26 | XMS_ITS | Patient Health Record ---
Author Organization [facility] [employer] Address [address] [place] [address] Care Team Providers Care Shotweld Operator Name Role Phone Kailee Lan Unavailable [phone] Reason For Referral No Information Medications Medication SIG (Take, Route, Frequency, Duration) Notes Start Date End Date Status Sulfamethoxazole-Trimet hoprim 400-80 MG Tablet Oral 06/24/2023 Acti ve Cyclobenzaprine HCl 5 MG Tablet Oral 06/24/2023 Active Cholecalciferol 1.25 MG (33887 UT) Capsule Oral 06/24/2023 Active Atorvastatin Calcium 40 MG Tablet Oral 06/24/2023 Active Paxlovid (300/100) 20 x 150 MG & 10 x 100MG Tablet Therapy Pack Oral *Reorder from [employer] for eRx and Interaction Alerts* 06/24/2023 Active [...] Release Oral 06/24/2023 Active Ergocalciferol 1.25 MG (44333 UT) Capsule Oral 06/24/2023 Active levETIRAcetam 500 [...] Insured Coverage Start Date Coverage End Date [facility] Medicare Supplement [address] [place] [address] [id number] LEV ANDERSON Self - patient is the insured Medical (General) History Surgical History Surgery Date(Month/Year) Removal of gallbladder (65566) Hysterectomy (38539) 05/14/1976 Appendectomy (77452) 06/03/1983 Cardiac stent 06/10/1999
--- OUTSIDE RECORDS SUMMARY | 2025-01-29 10:26 | XMS_ITS | Clinical Summary ---
Author Organization [facility] Address [address] [place] [address] Phone Care Team Providers Care Commercial Lease Administrator Name Role Phone Justne Singer MD Primary Care Provider [phone] Allergies Active Allergy Reactions Criticality Noted Date [...] Comments Blood Pressure 173/60 04/24/2020 9:15 AM MAJOR LEAGUE BASEBALL UMPIRE Pulse 59 04/24/2020 6:13 AM MAJOR LEAGUE BASEBALL UMPIRE Temperature 36.6 C (97.8 F) 04/24/2020 6:13 AM MAJOR LEAGUE BASEBALL UMPIRE Respiratory Rate 17 04/24/2020 9:15 AM MAJOR LEAGUE BASEBALL UMPIRE Oxygen Saturation 97% 04/24/2020 9:15 AM MAJOR LEAGUE BASEBALL UMPIRE Inhaled Oxygen Concentration - - Weight 68 kg (150 lb) 04/24/2020 6:13 AM MAJOR LEAGUE BASEBALL UMPIRE Height 160 cm (5' 3) 04/24/2020 6:13 AM MAJOR LEAGUE BASEBALL UMPIRE Body Mass Index 26.57 04/24/2020 6:13 AM MAJOR LEAGUE BASEBALL UMPIRE Plan of Treatment Health Maintenance Due Date [...] history exists Medical Devices Implanted Type Area Toe Lining Closer Device Identifier Shelf Expiration Date Model / Serial / Lot 3 Cardiac Stents Left Renal Stent Explanted Type Area Toe Lining Closer Device Identifier Shelf Expiration Date Model / Serial / Lot Cath Pd Howard Curl 2cuff [id number] - [id number] Implanted:Qty : 1 on 01/25/2020 by Rafita Bartlett MD at [facility] Explanted:Qty : 1 on 04/24/2020 by Hawk Angel MD at [facility] Catheter N/A: Abdomen [employer] - COVIDIEN 09/12/2024 [id number] / / [id number] Insurance MEDICARE PART A AND B [employer] SUPP Advance Directives For more information, please contact: [phone] * Full Code (Latest Code Status on File) Date Activated Date Inactivated Comments 04/24/2020 7:08 AM 04/24/2020 11:55 AM * Full Code Date Activated Date Inactivated Comments 04/24/2020 5:39 AM 04/24/2020 7:07 AM * Full Code Date Activated Date Inactivated Comments 01/25/2020 5:51 AM 01/26/2020 7:33 PM Care Teams Commercial Lease Administrator Relationship Specialty Start Date End Date Justen Singer MD PCP - General Family Practice 01/25/20
[2025-01-29] MEDS: MORPHINE SULFATE (*CRX) 4 MG/ML INJ IV PUSH (10:42)
[2025-01-29] MEDS: ONDANSETRON INJ 4 MG/2 ML VIAL IV PUSH (10:42)
[2025-01-29 10:48] VITALS: BP 136/74; PULSE 92; RESP 20; O2SAT 100
--- NOTE | 2025-01-29 12:24 | ED.FALL ---
HPI - Fall General Chief Complaint: Fall Stated Complaint: fall Time Seen by Provider: 01/29/25 10:10 Source: patient Mode of arrival: EMS Limitations: no limitations History of Present Illness HPI Narrative: 79-year-old with a history of hypertension, ESRD presently living in custodial was brought in by EMS from the facility with a complains of fall. Patient states that she told out of the bed now complaining of pain to both knees. She denied any head and neck injuries. No LOC. She states the left knee is extremely painful and swollen MD complaint: fall Onset (ago): hour(s) (1) Fall from: out of bed Fall witnessed: yes, by living facility staff Place fall occurred: custodial/SNF Loss of consciousness: none Prolonged down time: no Symptoms prior to fall: none Location of injury - extremities: Bilateral: knee Severity: moderate Quality: aching Associated symptoms (after fall): denies Related Data Home Medications ?Medication ?Instructions ?Recorded ?Confirmed ?Last Taken ?Type acetaminophen 325 mg capsule 650 mg PO QID PRN pain 03/11/24 01/17/25 Unknown History bisacodyl 10 mg rectal suppository 10 mg RECTAL DAILY PRN constipation 03/11/24 01/17/25 Unknown History ergocalciferol (vitamin D2) 1,250 1,250 mcg PO WEEKLY 03/11/24 01/17/25 03/09/24 History mcg (50,000 unit) capsule cholestyramine-aspartame 4 gram 1 ea PO TID 04/01/24 01/17/25 Unknown History oral powder for susp in a packet (Cholestyramine Light) magnesium citrate (Citrate of 296 ml PO DAILY PRN constipation 04/01/24 01/17/25 Unknown History Magnesia oral) magnesium hydroxide 400 mg/5 mL 30 ml PO DAILY PRN constipation 04/01/24 01/17/25 Unknown History oral suspension (Bo Milk of Magnesia) buspirone 5 mg tablet 5 mg PO TID 07/13/24 01/17/25 Unknown History Allergies Allergy/AdvReac Type Severity Reaction Status Date / Time cortisone Allergy Intermediate Dyspnea / Verified 01/29/25 09:09 SOB Penicillins Allergy Intermediate Dyspnea / Verified 01/29/25 09:09 SOB ceftriaxone (From Rocephin) Allergy Difficulty Verified 01/29/25 09:09 Breathing Review of Systems Review of Systems: All systems reviewed & are unremarkable except as noted in HPI and below Constitutional: Constitutional: Reports no additional constitutional complaints Eyes: Eyes: Reports no additional eye complaints Cardiovascular: Cardiovascular: Reports no additional cardiovascular complaints Respiratory: Respiratory: Reports no additional respiratory complaints Gastrointestinal: Gastrointestinal: Reports no additional gastrointestinal complaints Musculoskeletal: Musculoskeletal: Reports as per HPI Neurologic: Reports system reviewed and no additional complaints, except as documented PMF Past Medical History Medical History Metatarsal fracture, pathologic Peroneal tendinitis of both lower legs Pubic ramus fracture Diastolic dysfunction Echocardiogram October 2022: EF greater than 70% mildly increased left ventricular wall thickness, grade 1 diastolic dysfunction, patent foramen ovale visualized on agitated saline mild mitral valve regurgitation, mild tricuspid valve regurgitation mild pulmonary hypertension with RVSP of 37 Peripheral autonomic neuropathy due to diabetes mellitus Osteomyelitis of toe of left foot COVID-19 virus infection Renal osteodystrophy Erythropoietin deficiency anemia End-stage renal disease on hemodialysis Thursday Normal colonoscopy (08/2019) Tushar (1991) Gastroesophageal reflux disease Restless leg syndrome Renal cell carcinoma (2004) Obstructive sleep apnea No longer using CPAP after 40 lb weight loss. Coronary artery disease History of stent x3. Anemia of chronic disease Pericardial effusion (01/2020) Small pericardial effusion on echocardiogram, felt to be related to uremia. Peripheral vascular disease Crohn's disease History of kidney stones Peritonitis (01/2020) Surgical History Surgical History Amputation toe Left 2nd toe. History of complete ray amputation of second toe of left foot History of complete ray amputation of second toe of right foot History of cholecystectomy History of appendectomy History of foot surgery Repair of left foot fracture with pinning. History of partial nephrectomy (2004) Left partial nephrectomy for kidney cancer. History of tonsillectomy History of bilateral carpal tunnel release History of hysterectomy (1976) With cystocele and rectocele repairs. History of cardiac catheterization With stent x3. History of cystoscopy With ureteral stents for kidney stones. History of colonoscopy Family History Family History Father Renal cell carcinoma Acute myocardial infarction Cerebrovascular accident Colon polyp Heart disease Hypertension Mother Lung cancer Acute myocardial infarction Cerebrovascular accident Depression Heart disease Hypertension Son Asthma Social History Social History Social History: Patient is retired. 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 She had 1 son who at 50 years old heart attack. She has a 2nd son who is still living and he was her surrogate decision maker. To smoke 1 pack of cigarettes per day for about 30 years. She quit smoking in 1995. She denies any alcohol use or illicit substance use. She is living in [facility]. Surrogate medical decision maker: Dong Maher, son. Code status: DNR/DNI Smoking packs per day: 0.5 Smoking cigarettes per day: 10.0 Years smoked: 10 Smoking pack-years: 5.00 Smoking status: Former smoker Tobacco type: cigarettes Second hand tobacco smoke exposure: No Smoking end date: 03/16/93 Alcohol intake: never Substance use: never Do You Feel Safe in your Home?: Yes Lack of Transportation: No Lack of Food: Never True Current Housing: I Have Housing Concerned About Future Housing: No Difficulty Paying Gas/Electric Bills: No Difficulty Paying for Meds: No Currently Unemployed: No Education: High School Diploma/GED Difficulty w/ Childcare or Family Care: No Living arrangements: alone Additional living arrangements comments: , lives in [place]. 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 Spiritual care concerns: No Agree to blood products: Yes Exam Narrative: GENERAL: Well-appearing, well-nourished, and in no acute distress. HEAD: Normocephalic, atraumatic. EYES: PERRLA and EOMI. ENT: Nares clear, no rhinorrhea or epistaxis. Mucous membranes moist. NECK: Supple. CHEST: Clear to auscultation. No respiratory distress. HEART: Regular rate and rhythm. No murmur heard. Normal peripheral pulses. ABDOMEN: Soft, nontender, nondistended, normal active bowel sounds. EXTREMITIES: Normal range of motion. Left knee shows moderate amount of soft tissue swelling possible effusion, a large bruise noted on the left buttock SKIN: Warm, dry, no rash. NEURO: No focal deficits. Alert and oriented x3. PSYCH: Normal mood and affect. Course Course Emergency Course: Pain is much better after receiving IV morphine. Informed her about the x-ray findings. Advised her to continue home medications, fall precautions. Vital Signs Vital signs: Vital Signs Temperature 36.4 C 01/29/25 09:03 Pulse Rate 85 01/29/25 09:03 Respiratory Rate 20 01/29/25 09:03 Blood Pressure 157/69 H 01/29/25 09:03 Pulse Oximetry 100 01/29/25 09:03 Oxygen Delivery Room Air 01/29/25 09:03 Temperature 36.4 C 01/29/25 09:03 Pulse Rate 92 01/29/25 10:48 Respiratory Rate 20 01/29/25 10:48 Blood Pressure 136/74 01/29/25 10:48 Pulse Oximetry 100 01/29/25 10:48 Oxygen Delivery Room Air 01/29/25 09:03 MDM - Fall Differential Diagnosis Differential diagnosis: Likely other (fracture knee , pelvis) Medical Records Attestation: I reviewed the patient's medical records. Discharge Plan Discharge Clinical Impression: Contusion of knee, right Qualifiers: Encounter type: initial encounter Qualified Code(s): S80.01XA - Contusion of right knee, initial encounter Contusion of left knee Qualifiers: Encounter type: initial encounter Qualified Code(s): S80.02XA - Contusion of left knee, initial encounter Patient Disposition: [facility] Living Condition: Stable Instructions: Contusion in Adults (ED) Additional Instructions: Fall precautions, , ice pack to the left knee. Patient Language: Portuguese Prescriptions: No Action dicyclomine 20 mg tablet 20 mg PO TID Qty: 90 5RF Cholestyramine Light 4 gram powder 4 g PO TID Qty: 239.4 5RF Rx Instructions: administer w/meal; avoid other meds within 1hr before or 4-6hr after dose budesonide 9 mg tablet,delayed and ext.release 9 mg PO DAILY Qty: 30 1RF diclofenac sodium [Arthritis Pain (diclofenac)] 1 % gel 2 g topical QID Qty: 50 2RF Rx Instructions: Apply to bilateral feet daily as needed escitalopram oxalate 10 mg tablet 10 mg PO DAILY Qty: 30 5RF acetaminophen 325 mg capsule 650 mg PO QID PRN (Reason: pain) bisacodyl 10 mg suppository 10 mg RECTAL DAILY PRN (Reason: constipation) ergocalciferol (vitamin D2) 1,250 mcg (50,000 unit) capsule 1,250 mcg PO WEEKLY Patient Comments: On Wednesdays loperamide 2 mg tablet 2 mg PO QID PRN (Reason: loose stool) Qty: 20 0RF cyclobenzaprine 5 mg tablet 5 mg PO TID PRN (Reason: muscle spasm) Qty: 10 0RF magnesium citrate [Citrate of Magnesia] Solution 296 ml PO DAILY PRN (Reason: constipation) magnesium hydroxide [Bo Milk of Magnesia] 400 mg/5 mL suspension 30 ml PO DAILY PRN (Reason: constipation) cholestyramine-aspartame [Cholestyramine Light] 4 gram powder in packet 1 ea PO TID hydrocodone-acetaminophen 5-325 mg tablet 1 tablet PO Q6H PRN (Reason: pain) Qty: 14 0RF atorvastatin 40 mg tablet 40 mg PO DAILY Qty: 90 2RF bupropion HCl 150 mg tablet extended release 24 hr 150 mg PO QAM Qty: 90 1RF diclofenac sodium [Voltaren Arthritis Pain] 1 % gel 2 g topical BID PRN (Reason: knee pain) Qty: 200 5RF Rx Instructions: apply to single elbow, wrist or hand; for hand includes palm/fingers/back of hand levetiracetam 500 mg tablet 500 mg PO Q12H Qty: 180 1RF mirtazapine 30 mg tablet 30 mg PO QHS Qty: 90 1RF pantoprazole 40 mg tablet,delayed release (DR/EC) 40 mg PO QAM Qty: 90 1RF clobetasol 0.05 % cream See Rx Instructions .ROUTE .COMPLEX Qty: 30 0RF Dose Instruction: APPLY TO AFFECTED AREAS TWICE DAILY Rx Instructions: APPLY TO AFFECTED AREAS TWICE DAILY buspirone 5 mg tablet 5 mg PO TID ropinirole 1 mg tablet 1 mg PO BID Qty: 180 1RF loperamide 2 mg tablet 4 mg PO QID PRN (Reason: loose stool) Qty: 100 5RF hydrocodone-acetaminophen 5-325 mg tablet 1 tablet PO QID PRN (Reason: pain) Qty: 120 0RF Follow-up/Referrals: Justen Singer MD [Primary Care Provider, Family Practice] Time of Disposition: 12:36
== END 2025-01-29 13:04 ==
PROVIDERS: Emergency Provider Family Medicine; PCP Family Medicine Adolescent Medicine
DX: S80.02XA Contusion of left knee, initial encounter (principal); S80.01XA Contusion of right knee, initial encounter; N18.6 End stage renal disease; E11.22 Type 2 diabetes mellitus with diabetic chronic kidney disease; I12.0 Hypertensive chronic kidney disease with stage 5 chronic kidney disease or end stage renal disease; D63.1 Anemia in chronic kidney disease; N25.0 Renal osteodystrophy; Z99.2 Dependence on renal dialysis; E11.43 Type 2 diabetes mellitus with diabetic autonomic (poly)neuropathy; E11.51 Type 2 diabetes mellitus with diabetic peripheral angiopathy without gangrene; I73.9 Peripheral vascular disease, unspecified; I25.10 Atherosclerotic heart disease of native coronary artery without angina pectoris; G25.81 Restless legs syndrome; K50.90 Crohn's disease, unspecified, without complications; K21.9 Gastro-esophageal reflux disease without esophagitis; Z66 Do not resuscitate; Z95.1 Presence of aortocoronary bypass graft; Z86.16 Personal history of COVID-19; Z87.442 Personal history of urinary calculi; Z87.891 Personal history of nicotine dependence; Z85.528 Personal history of other malignant neoplasm of kidney; Z89.422 Acquired absence of other left toe(s); Z89.421 Acquired absence of other right toe(s); Z90.49 Acquired absence of other specified parts of digestive tract; Z90.5 Acquired absence of kidney; Z90.710 Acquired absence of both cervix and uterus; Z79.899 Other long term (current) drug therapy; W06.XXXA Fall from bed, initial encounter
CPT/HCPCS: 72170; 73562; 96374; 96375; 99284; J2270; J2405

== ENCOUNTER 2025-02-04 15:50 | Emergency (ER) | payer MEDICARE, SELFPAY ==
--- OUTSIDE RECORDS SUMMARY | 2024-12-12 07:17 | XMS_ITS | Continuity of Care Document ---
Author Organization [facility] Address [address] [place] [address] Phone Care Team Providers Care Water Leak Repairer Name Role Phone Tyree MODI, Veeral Unavailable [...] Diagnoses Date Provider Providers Copied on Encounter [facility], [address] [place] [address], [id number], [place] tel:[phone] [facility] No Information Nov- 5 Bhoot Veeral. [address], [place], [address], [place]. tel:[phone] [facility], [address] [place] [address], [id number], [place] tel:[phone] [facility] End stage renal disease Nov- 5 Bhoot Veeral. [address], [place], [address], [place]. tel:[phone] Referring Provider: Jamshid Owens, [address] [place] [address], [id number]. tel:[phone] [facility], [address] [place] [address], [id number], [place] tel:[phone] [facility] End stage renal disease Nov-2 5 Bhoot Veeral. [address], [place], [address], [place]. tel:[phone] Referring Provider: Jamshid Owens, [address] [place] [address], [id number]. tel:[phone] [facility], [address] [place] [address], [id number], [place] tel:[phone] [facility] No Information Nov- 5 Bhoot Veeral. [address], [place], [address], [place]. tel:[phone] [facility], [address] [place], [place], [id number], [place] tel:[phone] [facility] Compression of VeinEnd stage renal disease May-2 5 Lockwood Paulo . [address] [place] [address], [id number] , . tel:[phone] Referring Provider: Jamshid Owens, [address] [place] [address], [address]. tel:[phone] [facility], [address] [place] [address], [id number], [place] tel:[phone] [facility] Compression of VeinEnd stage renal disease May-2 5 Lockwood Paulo . [address] [place] [address], [id number] , [place]. tel:[phone] Referring Provider: Jamshid Owens, [address] [place] [address], [id number]. tel:[phone] [facility], [address] [place] [address], [id number], [place] tel:[phone] [facility] Stricture of ArteryEnd stage renal disease Dec-0 4 Lockwood Paulo . [address] [place] [address], [id number] , [place]. tel:[phone] Referring Provider: Jamshid Owens, [address] [place] [address], [id number]. tel:[phone] [facility], [address] [place] [address], [id number], [place] tel:[phone] [facility] Stricture of ArteryEnd stage renal disease Dec-0 4 Lockwood Paulo . [address] [place] [address], [id number] , [place]. tel:[phone] Referring Provider: Jamshid Owens, [address] [place] [address], [id number]. tel:[phone] [facility], [address] [place] [address], [id number], [place] tel:[phone] [facility] Compression of VeinEnd stage renal disease Sep-0 4 Lockwood Paulo . [address] [place], [place], [id number] , [place]. [phone] Referring Provider: Jamshid Owens, [address] [place] [address], [id number]. tel:[phone] [facility], [address] [place], [place], [id number], tel:[phone] [facility] End stage renal diseaseCompression of Vein Nov- 4 Fabián Minorjandro . [address] [place], [place], [id number] , [place]. [phone] Referring Provider: Jamshid Owens, [address] [place] [address], [address]. tel:[phone] As per patient privacy policy some of the clinical information may not be visible. Family History Family Member Type Diagnosis Age At Onset No Information Payers Payer name Insurance type Covered libertarian ID Ok cisse(s) Medicare [place] [id number] [facility] Mcaid [id number] Social History Type Description Quantity Date Captured Comments Sex Female Smoking Status No Information Gender Identity Female Chief Complaint And Reason For Visit No Information Reason For Referral Reason For Referral No Information Plan Of Treatment Date Type Action Status Appointment Layla Maher // LILIA WINTER 6 Month F/u BOOKED Future Order: Radiology Order Up per Body Flouroscopy ([id number]), Ordered on: Ordered Future Order: Radiology Order Up per Body Flouroscopy ([id number]), Ordered on: Ordered Future Order: Radiology Order Up per Body Flouroscopy ([id number]), Ordered on: Ordered Future Order: Radiology Order Up per Body Flouroscopy ([id number]), Ordered on: Ordered History Of Present Illness Encounter Date Complaint History Of Prese nt Illness No Information Functional Status Date Functional Assessmen t No Information Instructions Date Instruction Additional Infor mation No Information Assessments Type Assessment Date No Information Patient Care Teams Name Effective Dates (start - stop) Status Members No Information
--- NOTE | ~2025-02-04 | CT_ITS ---
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 TECHNIQUE: CT scan of the abdomen and pelvis was performed without IV contrast. One or more of the following dose reduction techniques were used: automated exposure control, adjustment of the mA and/or kV according to patient size, use of iterative reconstruction technique. Unless otherwise stated, incidental findings do not require dedicated follow up imaging FINDINGS: CT abdomen: LUNG BASES: There are no nodules noted the largest in the right lower lobe 1.5 x 1.5 cm. LIVER: There is intrahepatic biliary duct dilatation with dilatation of the CBD measuring 2 cm tapering abruptly. SPLEEN: Unremarkable, no splenomegaly. KIDNEYS: Right Kidney: Right kidney is atrophic with subcentimeter complex focus incompletely evaluated, ultrasound recommended. Left Kidney: Left kidney is atrophic with subcentimeter probable renal cysts. ADRENAL GLANDS: Unremarkable. PANCREAS: The pancreatic duct is dilated. There is a cystic lesion in the uncinate process of the pancreas measuring 1 x 1 cm. GALLBLADDER/BILIARY: Post cholecystectomy. STOMACH AND ESOPHAGUS: Visualized stomach and esophagus within normal limits. BOWEL/MESENTERY: No colitis or diverticulitis. Appendix not identified. Mesentery normal. No thickening or dilated loops of small bowel. ADENOPATHY/RETROPERITONEUM: No lymphadenopathy. AORTA/VASCULATURE: Normal caliber aorta. FREE FLUID OR FREE AIR: No free fluid or free air.. CT pelvis: SOLID ORGANS/REPRODUCTIVE: Post hysterectomy. No adnexal mass. BLADDER: Within normal limits. OSSEOUS STRUCTURES: Abnormal density in the right femoral head suspicious for avascular necrosis. OVERLYING SOFT TISSUES: Unremarkable. IMPRESSION: 1. Findings concerning for pancreatic neoplasm with dilatation of the biliary tree. Contrast-enhanced MRI with MRCP sequences is recommended. 2. Right lung nodule suspicious for neoplasm. PET CT is recommended Reviewed, dictated and finalized at location P. 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 Findings concerning for pancreatic neoplasm with dilatation of the biliary t ree. Contrast-enhanced MRI with MRCP sequences is recommended. 2. Right lung nodule suspicious for neoplasm. PET CT is recommended
[2025-02-04 15:52] VITALS: BP 138/67; PULSE 110; RESP 14; TEMP 36.6; O2SAT 97
--- OUTSIDE RECORDS SUMMARY | 2025-02-04 16:47 | XMS_ITS | Clinical Summary ---
Author Organization [facility] Address [address] [place] [address] Care Team Providers Care Securities Broker Name Role Phone Justen Singer MD Primary Care Provider + Source Comments [facility],non-owned Affiliates and Associated Physician Practices is amultiple site organization consisting of ambulatory clinics and hospital sitesin [place], [place], [place] and [place]. This disclosure is being madepursuant to the Care Everywhere program and may not contain all information available regarding this patient. 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 Estimated Average Glucose 128 mg/dL 07/27/2022 9:53 AM CDT [facility] Comment: HbA1c Interpretation: Normal : < 5.7% Pre-diabetes: 5.7-6.4% Diabetes: Equal to or greater than 6.5% Test results diagnostic of diabetes should be repeated for confirmation. Treatment target values recommended by ADA and other clinical organizations should be used to evaluate metabolic control in patients. Reference: [place] Diabetes Association, Standards of Care in Diabetes [...] LAB - CHEMISTRY ORDERABLES Mai escalona Result [facility] [address] [place] [address], [facility] [phone] from Last 3 Months or Most Recently Relevant to [place] [address] MEDICARE [facility] MEDICARE MEDICARE Advance Directives Documents on File Type Date Recorded Patient School Psychologist Expl anation Adv Directive/Living Will/POA 08/15/2022 11:36 [...] 3:50 PM 10/30/2021 11:48 AM Care Teams Securities Broker Relationship Specialty Start Date End Date Justen Singer MD [address] [address] PCP - General 02/14/20
--- OUTSIDE RECORDS SUMMARY | 2025-02-04 16:47 | XMS_ITS | Encounter Summary ---
Author Organization [facility] Address [address] [place] [address] Phone Care Team Providers Care Channel Sales Director Name Role Phone Justen Singer MD Primary Care Prov ider Justen Singer MD Primary Care Prov ider Lita Elizabeth RN Unavailable Jamshid Joe MD Unavailable [phone] Alex Edgar MD Unavailable [phone] Encounter Details Date Type Department Care Team (Late st Contact Info) Description 12/15/2019 Telephone [facility] Cardiology [address] [place] [address] [place] [address] Alex Edgar MD [address] [facility] [place], [place] [id number] Social History Tobacco Use Types Packs/Day Years Used Date Smoking Tobacco: Former Smokeless Tobacco: Never Comments Unknown Sex and Gender Information Value Date Recorded Sex Assigned at Not on file Legal Sex Female 6:58 AM MOTOR 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 Gender Identity Not on file Sexual Orientation Not on file documented as of this encounter Plan of Treatment Not on file documented as of this encounter Visit Diagnoses Not on filedocumented in this encounter Additional Health Concerns Infection Onset Date Last Indicated Resolved Time COVID19 03/19/2020 03/19/2020 04/02/2020 3:07 AM MOTOR 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 documented as of this encounter Care Teams Channel Sales Director Relationship Specialty Start Date End Date Justen Singer MD PCP - General 03/27/17 08/26/20 Justen Singer MD PCP - General Family Medicine 08/27/20 Lita Elizabeth, RN [address] [id number] Registered Nurse Work And Family Life Consultant 08/27/20 Jamshid Joe MD [address] [address] Referring Physician Nephrology 10/08/20 Alex Edgar MD [address] [address] Referring Physician Cardiology 10/08/20 documented as of this encounter
--- OUTSIDE RECORDS SUMMARY | 2025-02-04 16:47 | XMS_ITS | Clinical Summary ---
Author Organization [facility] Address [address] [place] [address] Phone Care Team Providers Care Dye Line Operator Name Role Phone Justen Singer MD Primary Care Provider [phone] Allergies Active Allergy Reactions Criticality Noted Date [...] Comments Blood Pressure 173/60 04/24/2020 9:15 AM BUSINESS SERVICES DIRECTOR Pulse 59 04/24/2020 6:13 AM BUSINESS SERVICES DIRECTOR Temperature 36.6 C (97.8 F) 04/24/2020 6:13 AM BUSINESS SERVICES DIRECTOR Respiratory Rate 17 04/24/2020 9:15 AM BUSINESS SERVICES DIRECTOR Oxygen Saturation 97% 04/24/2020 9:15 AM BUSINESS SERVICES DIRECTOR Inhaled Oxygen Concentration - - Weight 68 kg (150 lb) 04/24/2020 6:13 AM BUSINESS SERVICES DIRECTOR Height 160 cm (5' 3) 04/24/2020 6:13 AM BUSINESS SERVICES DIRECTOR Body Mass Index 26.57 04/24/2020 6:13 AM BUSINESS SERVICES DIRECTOR Plan of Treatment Health Maintenance Due [...] history exists Medical Devices Implanted Type Area Pharmacy Technician Infusion Device Identifier Shelf Expiration Date Model / Serial / Lot 3 Cardiac Stents Left Renal Stent Explanted Type Area Pharmacy Technician Infusion Device Identifier Shelf Expiration Date Model / Serial / Lot Cath Pd Howard Curl 2cuff [id number] - [id number] Implanted:Qty : 1 on 01/25/2020 by Rafita Bartlett MD at [facility] Explanted:Qty : 1 on 04/24/2020 by Hawk Angel MD at [facility] Catheter N/A: Abdomen [employer] - COVIDIEN 09/12/2024 [id number] / / [id number] Insurance MEDICARE PART A AND B BCBS SUPP Advance Directives For more information, please contact: [phone] * Full Code (Latest Code Status on File) Date Activated Date Inactivated Comments 04/24/2020 7:08 AM 04/24/2020 11:55 AM * Full Code Date Activated Date Inactivated Comments 04/24/2020 5:39 AM 04/24/2020 7:07 AM * Full Code Date Activated Date Inactivated Comments 01/25/2020 5:51 AM 01/26/2020 7:33 PM Care Teams Dye Line Operator Relationship Specialty Start Date End Date Justen Singer MD PCP - General Family Practice 01/25/20
--- OUTSIDE RECORDS SUMMARY | 2025-02-04 16:47 | XMS_ITS | Patient Health Record ---
Author Organization [facility] Address [address] [place] [address] Care Team Providers Care Sleep Technologist Name Role Phone Kailee Lan Unavailable [phone] Reason For Referral No Information Medications Medication SIG (Take, Route, Frequency, Duration) Notes Start Date End Date Status Sulfamethoxazole-Trimet hoprim 400-80 MG Tablet Oral 06/24/2023 Acti ve Cyclobenzaprine HCl 5 MG Tablet Oral 06/24/2023 Active Cholecalciferol 1.25 MG (70380 UT) Capsule Oral 06/24/2023 Active Atorvastatin Calcium 40 MG Tablet Oral 06/24/2023 Active Paxlovid (300/100) 20 x 150 MG & 10 x 100MG Tablet Therapy Pack Oral *Reorder from CheckInPage for eRx and Interaction Alerts* 06/24/2023 Active [...] Release Oral 06/24/2023 Active Ergocalciferol 1.25 MG (41796 UT) Capsule Oral 06/24/2023 Active levETIRAcetam 500 [...] Insured Coverage Start Date Coverage End Date [facility] Medicare Supplement [address] [place] [address] [id number] LEV ANDERSON Self - patient is the insured Medical (General) History Surgical History Surgery Date(Month/Year) Removal of gallbladder (15747) Hysterectomy (35389) 05/14/1976 Appendectomy (78900) 06/03/1983 Cardiac stent 06/10/1999
--- OUTSIDE RECORDS SUMMARY | 2025-02-04 16:47 | XMS_ITS | Clinical Summary ---
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 Vitamin D2 1,250 [...] 57 years old in 2002 Crohn's disease 05/24/2012 Calculus of kidney 05/24/2012 Hypertension 05/24/2012 Hyperlipidemia 07/29/2010 Overview (06/25/2017): Description: Hyperlipidemia Chronic coronary artery disease 07/29/2010 Overview (06/25/2017): Description: Multi-vessel Coronary Artery Stenosis 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 End stage renal disease ESRD (end stage renal disease) Immunizations Immunization Administration Dates Next Due Influenza, Trivalent, Preservative Free, Intramu scular 03/26/2012 Surgical History Surgery Date Site/Laterality Comments CT LAPAROSCOPY SURG PARTIAL NEPHRECTOMY Left Kidney Surgery Laparoscopic Partial Nephrectomy - oncocytoma (Added by TW Conv) APPENDECTOMY Appendectomy - (Added by TW Conv) HYSTERECTOMY Hysterectomy - (Added by TW Conv) FOOT FRACTURE SURGERY Treatment Of Foot Fracture - 2004 (Added by TW Conv) CHOLECYSTECTOMY Cholecystectomy - 2005 (Added by TW Conv) CT PRQ TRLUML CORONARY STENT W/ANGIO ONE ART/BRNCH [...] TW Conv) Atherosclerotic heart diseas e of telida coronary artery without angina pectoris Arteriosclerot ic [...] on file Legal Sex Female 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 Gender Identity Not on file Sexual Orientation Not on file Last Filed Vital Signs Vital Sign Reading Time Taken Comments Blood Pressure 178/70 05/06/2022 9:26 AM DISTILLERY SUPERVISOR Pulse 73 05/06/2022 9:26 AM DISTILLERY SUPERVISOR Temperature 36.6 C (97.8 F) 08/26/2021 2:10 PM CDT Respiratory Rate 18 03/19/2020 8:41 PM DISTILLERY SUPERVISOR Oxygen Saturation 90% 05/06/2022 9:26 AM DISTILLERY SUPERVISOR Inhaled Oxygen Concentration - - Weight 73.9 kg (163 lb) 05/06/2022 9:26 AM DISTILLERY SUPERVISOR Height 160 cm (5' 3) 05/06/2022 9:26 AM DISTILLERY SUPERVISOR Body Mass Index 28.87 05/06/2022 9:26 AM DISTILLERY SUPERVISOR Plan of Treatment Health Maintenance Due [...] Lipid Panel 07/29/2023 07/28/2022, 11/23/2020 Covid-19 Vaccine (4 - 2024-2 6 season) 2024 01/03/2021, 06/06/2020, 05/15/2020 Influenza [...] 90 - 130 mL/min/1.7 3 m2 [facility] Comment: Interpretive Data Reference Interval Normal [...] 5 PM CDT 11/23/2020 12:24 PM CDT Result [facility] Jani Rose MD LAB BLOOD ORDERABLES Final Result Performing Organization Address City/[facility] Co de Phone Number [facility] [place] [place] [address] * Hepatitis C antibody (11/23/2020 12:05 PM CDT) Pathologist [facility] Hep C Ab Nonreactive Nonreactive [facility] Comment:Antibodies to HCV no t detected. Does NOT exclude the possibility of recent exposure to HCV. Blood 11/23/2020 12:0 5 PM CDT 11/23/2020 12:20 PM CDT Result [facility] Jani Rose MD LAB MICROBIOLOGY - GENERAL ORDERABLES Edited Result - Final Performing Organization Address [facility] de Phone Number [facility] [place] [employer] [place] [address] * (ABNORMAL) Hemoglobin A1c (11/23/2020 12:05 PM CDT) [facility] Hgb A1C 6.1(H) 4.0 - 5.6 % [facility] Estimated Average Glucose 128 mg/dL [facility] Comment: The ADA recommends reporting an [...] BLOOD ORDERABLES Final Result Performing Organization Address [facility] Co de Phone Number [facility] [place] [place] [address] * (ABNORMAL) Lipid panel (11/23/2020 12:05 PM CDT) Cholesterol 148 30 - 199 mg/dL [facility] Comment: Interpretive Data Ages < or [...] revised on 2017. Triglycerides 303(H) <=149 mg/dL [facility] Comment: Interpretive Data Ages < or [...] revised on 2017. HDL 41 >=40 mg/dL [facility] Comment: Interpretive Data Ages < or [...] on 2017. LDL, calculated 46 <=129 mg/dL [facility] Comment: Interpretive [...] revised on 2017. Non-HDL Cholesterol 107 mg/dL [facility] Comment: Interpretive Data Ages < or [...] last revised on 2017. Chol/HDL ratio 4 [facility] Blood 11/23/2020 12:0 5 PM CDT 11/23/2020 12:20 PM CDT us Jani Rose MD LAB BLOOD ORDERABLES Final Result [facility] Department [place] [address] from Last 3 Months or Most Recently Relevant to Health Maintenance Insurance MEDICARE [facility] MEDICARE [facility] MEDICARE [facility] MEDICARE SUPPLEMENT Care Teams Developer Automatic Relationship Specialty Start Date End Date Justen Singer MD PCP - General Family Medicine 08/27/20 Jamshid Joe MD Referring Physician Nephrology 10/08/20 Alex Edgar MD Referring Physician Cardiology 10/08/20
--- NOTE | 2025-02-04 16:50 | PC.NURSE ---
RN attempted straight catheter on pt, met resistance and pt stated that it was painful.
[2025-02-04 16:54] LABS: Hematocrit 31.7 % (37.0-47.0); Hemoglobin 9.8 g/dL (12.0-15.0); Immature Granulocyte Percent A 2.8 % (0-0.5); Lymphocytes Absolute Auto 1.45 K/mm3 (0.9-3.2); Mean Corpuscular HGB Conc 30.9 g/dl (32-36); Mean Corpuscular Hemoglobin 29.7 pg (26-34); Mean Corpuscular Volume 96.1 fl (80-100); Nucleated Red Blood Cells Absolute Auto 0.000 K/mm3 (0.0-0.012); Nucleated Red Blood Cells Perc 0.0 % (0.0-0.2); Platelet Count Result 280 k/mm3 (150-375); Red Blood Count 3.30 M/mm3 (4.2-5.4); White Blood Count 9.2 K/mm3 (4.5-10.0)
--- NOTE | 2025-02-04 17:09 | ED.GENADULT ---
HPI - General Adult General Chief complaint: Urogenital-Female Stated complaint: UTI sx Time Seen by Provider: 02/04/25 16:02 History of Present Illness HPI narrative: Patient 79-year-old female who presents emergency department with chief complaint burning in the inguinal area possible UTI patient is a dialysis patient. Patient reports no fever reports that she has discomfort whenever she urinates about twice a week Related Data Home Medications ?Medication ?Instructions ?Recorded ?Confirmed ?Last Taken ?Type acetaminophen 325 mg capsule 650 mg PO QID PRN pain 03/11/24 01/17/25 Unknown History bisacodyl 10 mg rectal suppository 10 mg RECTAL DAILY PRN constipation 03/11/24 01/17/25 Unknown History ergocalciferol (vitamin D2) 1,250 1,250 mcg PO WEEKLY 03/11/24 01/17/25 03/09/24 History mcg (50,000 unit) capsule cholestyramine-aspartame 4 gram 1 ea PO TID 04/01/24 01/17/25 Unknown History oral powder for susp in a packet (Cholestyramine Light) magnesium citrate (Citrate of 296 ml PO DAILY PRN constipation 04/01/24 01/17/25 Unknown History Magnesia oral) magnesium hydroxide 400 mg/5 mL 30 ml PO DAILY PRN constipation 04/01/24 01/17/25 Unknown History oral suspension (Bo Milk of Magnesia) buspirone 5 mg tablet 5 mg PO TID 07/13/24 01/17/25 Unknown History Allergies Allergy/AdvReac Type Severity Reaction Status Date / Time cortisone Allergy Intermediate Dyspnea / Verified 01/29/25 09:09 SOB Penicillins Allergy Intermediate Dyspnea / Verified 01/29/25 09:09 SOB ceftriaxone (From Rocephin) Allergy Difficulty Verified 01/29/25 09:09 Breathing Review of Systems Review of Systems: A 10 system review of systems was completed on the patient and is negative except for what is stated in the HPI. Nursing and ancillary documentation was reviewed. [facility] Past Medical History Medical History Metatarsal fracture, pathologic Peroneal tendinitis of both lower legs Pubic ramus fracture Diastolic dysfunction Echocardiogram October 2022: EF greater than 70% mildly increased left ventricular wall thickness, grade 1 diastolic dysfunction, patent foramen ovale visualized on agitated saline mild mitral valve regurgitation, mild tricuspid valve regurgitation mild pulmonary hypertension with RVSP of 37 Peripheral autonomic neuropathy due to diabetes mellitus Osteomyelitis of toe of left foot COVID-19 virus infection Renal osteodystrophy Erythropoietin deficiency anemia End-stage renal disease on hemodialysis Thursday Normal colonoscopy (08/2019) Tushar (1991) Gastroesophageal reflux disease Restless leg syndrome Renal cell carcinoma (2004) Obstructive sleep apnea No longer using CPAP after 40 lb weight loss. Coronary artery disease History of stent x3. Anemia of chronic disease Pericardial effusion (01/2020) Small pericardial effusion on echocardiogram, felt to be related to uremia. Peripheral vascular disease Crohn's disease History of kidney stones Peritonitis (01/2020) Surgical History Surgical History Amputation toe Left 2nd toe. History of complete ray amputation of second toe of left foot History of complete ray amputation of second toe of right foot History of cholecystectomy History of appendectomy History of foot surgery Repair of left foot fracture with pinning. History of partial nephrectomy (2004) Left partial nephrectomy for kidney cancer. History of tonsillectomy History of bilateral carpal tunnel release History of hysterectomy (1976) With cystocele and rectocele repairs. History of cardiac catheterization With stent x3. History of cystoscopy With ureteral stents for kidney stones. History of colonoscopy Family History Family History Father Renal cell carcinoma Acute myocardial infarction Cerebrovascular accident Colon polyp Heart disease Hypertension Mother Lung cancer Acute myocardial infarction Cerebrovascular accident Depression Heart disease Hypertension Son Asthma Social History Social History Social History: Patient is retired. 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 She had 1 son who at 50 years old heart attack. She has a 2nd son who is still living and he was her surrogate decision maker. To smoke 1 pack of cigarettes per day for about 30 years. She quit smoking in 1995. She denies any alcohol use or illicit substance use. She is living in [facility]. Surrogate medical decision maker: Dong Maher, son. Code status: DNR/DNI Smoking packs per day: 0.5 Smoking cigarettes per day: 10.0 Years smoked: 10 Smoking pack-years: 5.00 Smoking status: Former smoker Tobacco type: cigarettes Second hand tobacco smoke exposure: No Smoking end date: 03/16/93 Alcohol intake: never Substance use: never Do You Feel Safe in your Home?: Yes Lack of Transportation: No Lack of Food: Never True Current Housing: I Have Housing Concerned About Future Housing: No Difficulty Paying Gas/Electric Bills: No Difficulty Paying for Meds: No Currently Unemployed: No Education: High School Diploma/GED Difficulty w/ Childcare or Family Care: No Living arrangements: alone Additional living arrangements comments: , lives in [place]. 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 Spiritual care concerns: No Agree to blood products: Yes Exam Narrative: GENERAL: Well-appearing, well-nourished, and in no acute distress. HEAD: Normocephalic, atraumatic. EYES: PERRLA and EOMI. ENT: Nares clear, no rhinorrhea or epistaxis. Mucous membranes moist. NECK: Supple. CHEST: Clear to auscultation. No respiratory distress. HEART: Regular rate and rhythm. No murmur heard. Normal peripheral pulses. ABDOMEN: Soft, nontender, nondistended, normal active bowel sounds. EXTREMITIES: Normal range of motion. No edema. SKIN: Warm, dry, there is a red rash present in the skin folds of the inguinal area. NEURO: No focal deficits. Alert and oriented x3. PSYCH: Normal mood and affect. Course Vital Signs Vital signs: Vital Signs Temperature 36.6 C 02/04/25 15:52 Pulse Rate 110 H 02/04/25 15:52 Respiratory Rate 14 02/04/25 15:52 Blood Pressure 138/67 02/04/25 15:52 Pulse Oximetry 97 02/04/25 15:52 Oxygen Delivery Room Air 02/04/25 15:52 Temperature 36.6 C 02/04/25 15:52 Pulse Rate 110 H 02/04/25 15:52 Respiratory Rate 14 02/04/25 15:52 Blood Pressure 138/67 02/04/25 15:52 Pulse Oximetry 97 02/04/25 15:52 Oxygen Delivery Room Air 02/04/25 15:52 Medical Decision Making Vital Signs Vital Signs: Vital Signs Temperature 36.6 C 02/04/25 15:52 Pulse Rate 110 H 02/04/25 15:52 Respiratory Rate 14 02/04/25 15:52 Blood Pressure 138/67 02/04/25 15:52 Pulse Oximetry 97 02/04/25 15:52 Oxygen Delivery Room Air 02/04/25 15:52 Temperature 36.6 C 02/04/25 15:52 Pulse Rate 110 H 02/04/25 15:52 Respiratory Rate 14 02/04/25 15:52 Blood Pressure 138/67 02/04/25 15:52 Pulse Oximetry 97 02/04/25 15:52 Oxygen Delivery Room Air 02/04/25 15:52 Lab Data 02/04/25 16:48 02/04/25 16:48 Labs: Lab Results 02/04/25 Range/Units 16:48 WBC 9.2 (4.5-10.0) K/mm3 RBC 3.30 L (4.2-5.4) M/mm3 Hgb 9.8 L (12.0-15.0) g/dL Hct 31.7 L (37.0-47.0) % MCV 96.1 (80-100) fl MCH 29.7 (26-34) pg MCHC 30.9 L (32-36) g/dl RDW 15.9 H (11.5-14.5) % Plt Count 280 (150-375) k/mm3 MPV 8.6 (7.4-10.4) fl Immature Gran % (Auto) 2.8 H (0-0.5) % Neut % (Auto) 66.7 (45.5-73.1) % Lymph % (Auto) 15.8 L (18.3-44.2) % [place] % (Auto) 11.1 H (2.6-8.5) % Eos % (Auto) 3.2 (0-4.4) % Baso % (Auto) 0.4 (0.2-1.2) % Lymph # (Auto) 1.45 (0.9-3.2) K/mm3 [place] # (Auto) 1.0 H (0.1-0.6) K/mm3 Eos # (Auto) 0.3 (0-0.3) K/mm3 Baso # (Auto) 0.0 (0.0-0.1) K/mm3 Abs Immat Gran (auto) 0.26 H (0.00-0.031) K/mm3 Absolute Neuts (auto) 6.1 (1.3-6.7) K/mm3 Absolute Nucleated RBC 0.000 (0.0-0.012) K/mm3 Nucleated RBC % 0.0 (0.0-0.2) % Sodium 142 (137-145) mmol/L Potassium 3.4 (3.4-5.0) mmol/L Chloride 100 (98-107) mmol/L Carbon Dioxide 31 H (22-30) mmol/L Anion Gap 11 (4-12) mmol/L BUN 25 H (7-17) mg/dL Creatinine 5.40 H (0.7-1.0) mg/dL Estim Creat Clear Calc 8 ml/min Estimated GFR 8 L (59 - ) Glucose 112 H (65-110) mg/dL Lactic Acid 1.9 (0.7-2.0) mmol/L Calcium 9.3 (8.4-10.2) mg/dL Magnesium 1.9 (1.6-2.3) mg/dL Total Bilirubin 0.5 (0.2-1.3) mg/dL AST 24 (14-36) U/L ALT 23 (6-35) U/L Alkaline Phosphatase 93 (38-126) U/L Total Protein 6.7 (6.3-8.2) g/dL Albumin 3.8 (3.5-5.1) g/dL Procalcitonin 0.4 ng/mL Discharge Plan Discharge Clinical Impression: Dysuria, Cellulitis, Skin yeast infection, Pancreatic mass, Pulmonary nodule Patient Disposition: Home Condition: Stable Instructions: Antibiotic Form, Cellulitis (ED), Pulmonary Nodules (ED), Skin Yeast Infection (ED) Additional Instructions: The CT scan showed a spot on your pancreas this may need further evaluation as an outpatient is recommended that you follow-up with your primary care provider and discuss options there also was a nodule on her lung may need further evaluation. Please return to the emergency department if you developed jaundice status (turning yellow) Patient Language: Divehi Prescriptions: New fluconazole 100 mg tablet 100 mg PO .Q72HR 9 Days Qty: 3 0RF levofloxacin 500 mg tablet 500 mg PO .q48hr 7 Days Qty: 3 0RF ketoconazole 2 % cream 1 applic topical BID Qty: 30 0RF Rx Instructions: apply to affected area twice daily No Action dicyclomine 20 mg tablet 20 mg PO TID Qty: 90 5RF Cholestyramine Light 4 gram powder 4 g PO TID Qty: 239.4 5RF Rx Instructions: administer w/meal; avoid other meds within 1hr before or 4-6hr after dose budesonide 9 mg tablet,delayed and ext.release 9 mg PO DAILY Qty: 30 1RF diclofenac sodium [Arthritis Pain (diclofenac)] 1 % gel 2 g topical QID Qty: 50 2RF Rx Instructions: Apply to bilateral feet daily as needed escitalopram oxalate 10 mg tablet 10 mg PO DAILY Qty: 30 5RF acetaminophen 325 mg capsule 650 mg PO QID PRN (Reason: pain) bisacodyl 10 mg suppository 10 mg RECTAL DAILY PRN (Reason: constipation) ergocalciferol (vitamin D2) 1,250 mcg (50,000 unit) capsule 1,250 mcg PO WEEKLY Patient Comments: On Wednesdays loperamide 2 mg tablet 2 mg PO QID PRN (Reason: loose stool) Qty: 20 0RF cyclobenzaprine 5 mg tablet 5 mg PO TID PRN (Reason: muscle spasm) Qty: 10 0RF magnesium citrate [Citrate of Magnesia] Solution 296 ml PO DAILY PRN (Reason: constipation) magnesium hydroxide [Bo Milk of Magnesia] 400 mg/5 mL suspension 30 ml PO DAILY PRN (Reason: constipation) cholestyramine-aspartame [Cholestyramine Light] 4 gram powder in packet 1 ea PO TID hydrocodone-acetaminophen 5-325 mg tablet 1 tablet PO Q6H PRN (Reason: pain) Qty: 14 0RF atorvastatin 40 mg tablet 40 mg PO DAILY Qty: 90 2RF bupropion HCl 150 mg tablet extended release 24 hr 150 mg PO QAM Qty: 90 1RF diclofenac sodium [Voltaren Arthritis Pain] 1 % gel 2 g topical BID PRN (Reason: knee pain) Qty: 200 5RF Rx Instructions: apply to single elbow, wrist or hand; for hand includes palm/fingers/back of hand levetiracetam 500 mg tablet 500 mg PO Q12H Qty: 180 1RF mirtazapine 30 mg tablet 30 mg PO QHS Qty: 90 1RF pantoprazole 40 mg tablet,delayed release (DR/EC) 40 mg PO QAM Qty: 90 1RF clobetasol 0.05 % cream See Rx Instructions .ROUTE .COMPLEX Qty: 30 0RF Dose Instruction: APPLY TO AFFECTED AREAS TWICE DAILY Rx Instructions: APPLY TO AFFECTED AREAS TWICE DAILY buspirone 5 mg tablet 5 mg PO TID ropinirole 1 mg tablet 1 mg PO BID Qty: 180 1RF loperamide 2 mg tablet 4 mg PO QID PRN (Reason: loose stool) Qty: 100 5RF hydrocodone-acetaminophen 5-325 mg tablet 1 tablet PO QID PRN (Reason: pain) Qty: 120 0RF Follow-up/Referrals: Justen Singer MD [Primary Care Provider, Family Practice]
[2025-02-04 17:16] LABS: Alanine Aminotransferase 23 U/L (6-35); Albumin Level 3.8 g/dL (3.5-5.1); Alkaline Phosphatase 93 U/L (38-126); Anion Gap 11 mmol/L (4-12); Aspartate Amino Transferase 24 U/L (14-36); Bilirubin,Total 0.5 mg/dL (0.2-1.3); Blood Urea Nitrogen 25 mg/dL (7-17); Calcium 9.3 mg/dL (8.4-10.2); Carbon Dioxide 31 mmol/L (22-30); Chloride 100 mmol/L (98-107); Estimated CRCL calculation 8 ml/min; Estimated Glomerular Filt Rate 8; Glucose 112 mg/dL (65-110); Magnesium 1.9 mg/dL (1.6-2.3); Potassium 3.4 mmol/L (3.4-5.0); Sodium 142 mmol/L (137-145); Total Protein 6.7 g/dL (6.3-8.2)
[2025-02-04 17:41] LABS: Procalcitonin 0.4 ng/mL
[2025-02-04] MEDS: MORPHINE SULFATE (*CRX) 4 MG/ML INJ 2 MG IV PUSH (18:09)
[2025-02-04] MEDS: FLUCONAZOLE 150 MG TABLET PO (18:55)
[2025-02-04 18:57] VITALS: BP 145/71; PULSE 89; RESP 20; O2SAT 94
== END 2025-02-04 19:57 ==
PROVIDERS: Emergency Provider Emergency Medicine; PCP Family Medicine Adolescent Medicine
DX: R30.0 Dysuria (principal); L03.314 Cellulitis of groin; B37.2 Candidiasis of skin and nail; K86.9 Disease of pancreas, unspecified; R91.1 Solitary pulmonary nodule; N18.6 End stage renal disease; E11.22 Type 2 diabetes mellitus with diabetic chronic kidney disease; I12.0 Hypertensive chronic kidney disease with stage 5 chronic kidney disease or end stage renal disease; D63.1 Anemia in chronic kidney disease; N25.0 Renal osteodystrophy; Z99.2 Dependence on renal dialysis; E11.43 Type 2 diabetes mellitus with diabetic autonomic (poly)neuropathy; E11.51 Type 2 diabetes mellitus with diabetic peripheral angiopathy without gangrene; I73.9 Peripheral vascular disease, unspecified; I25.10 Atherosclerotic heart disease of native coronary artery without angina pectoris; G25.81 Restless legs syndrome; K50.90 Crohn's disease, unspecified, without complications; K21.9 Gastro-esophageal reflux disease without esophagitis; Z66 Do not resuscitate; Z95.1 Presence of aortocoronary bypass graft; Z86.16 Personal history of COVID-19; Z87.442 Personal history of urinary calculi; Z87.891 Personal history of nicotine dependence; Z85.528 Personal history of other malignant neoplasm of kidney; Z89.422 Acquired absence of other left toe(s); Z89.421 Acquired absence of other right toe(s); Z90.49 Acquired absence of other specified parts of digestive tract; Z90.5 Acquired absence of kidney; Z90.710 Acquired absence of both cervix and uterus; Z79.899 Other long term (current) drug therapy
CPT/HCPCS: 36415; 74176; 80053; 83605; 83735; 84145; 85025; 96374; 99284; A9270; J2270

== ENCOUNTER 2025-02-18 07:06 | Emergency (ER) | payer MEDICARE, SELFPAY ==
--- OUTSIDE RECORDS SUMMARY | 2024-12-12 07:17 | XMS_ITS | Continuity of Care Document ---
Author Organization [facility] Address [address] [place] [address] Phone Care Team Providers Care Refinery Operator Alkylation Name Role Phone Tyree MODI, Veeral Unavailable [...] Diagnoses Date Provider Providers Copied on Encounter [facility], [address] [place] [address], [id number], [place] tel:[phone] [facility] No Information Nov- 5 Bhoot Veeral. [address], [place], [address], [place]. tel:[phone] [facility], [address] [place] [address], [id number], [place] tel:[phone] [facility] End stage renal disease Nov- 5 Bhoot Veeral. [address], [place], [address], [place]. tel:[phone] Referring Provider: Jamshid Owens, [address] [place] [address], [address]. tel:[phone] [facility], [address] [place] [address], [id number], [place] tel:[phone] [facility] End stage renal disease Nov-2 5 Bhoot Veeral. [address], [place], [address], [place]. tel:[phone] Referring Provider: Jamshid Owens, [address] [place] [address], [address]. tel:[phone] [facility], [address] [place] [address], [id number], [place] tel:[phone] [facility] No Information Nov- 5 Bhoot Veeral. [address], [place], [address], [place]. tel:[phone] [facility], [address] [place], [place], [id number], [place] tel:[phone] [facility] Compression of VeinEnd stage renal disease May-2 5 [place] Paulo . [address] [place], [place], [id number] , . tel:[phone] Referring Provider: Jamshid Owens, [address] [place] [address], [address]. tel:[phone] [facility], [address] [place] [address], [id number], [place] tel:[phone] [facility] End stage renal diseaseCompression of Vein May-2 5 [place] Paulo . [address] [place] [address], [id number] , [place]. [phone] Referring Provider: Jamshid Owens, [address] [place] [address], [address]. tel:[phone] [facility], [address] [place] [address], [id number], [place] tel:[phone] [facility] Stricture of ArteryEnd stage renal disease Dec-0 4 [place] Paulo . [address] [place] [address], [id number] , [place]. [phone] Referring Provider: Jamshid Owens, [address] [place] [address], [address]. tel:[phone] [facility], [address] [place] [address], [id number], [place] tel:[phone] [facility] Stricture of ArteryEnd stage renal disease Oct-0 4 [place] Paulo . [address] [place] [address], [id number] , [place]. tel:[phone] Referring Provider: Jamshid Owens, [address] [place] [address], [address]. tel:[phone] [facility], [address] [place] [address], [id number], tel:[phone] [facility] Compression of VeinEnd stage renal disease Sep-0 6 4 Fabián Fairo . [address] [place], [place], [id number] , [place]. [phone] Referring Provider: Jamshid Owens, [address] [place] [address], [address]. tel:[phone] [facility], [address] [place], [place], [id number], tel:[phone] [facility] End stage renal diseaseCompression of Vein Sep-0 4 [place] Paulo . [address] [place], [place], [id number] , [place]. tel:[phone] Referring Provider: Jamshid Owens, [address] [place] [address], [address]. tel:[phone] As per patient privacy policy some of the clinical information may not be visible. Family History Family Member Type Diagnosis Age At Onset No Information Payers Payer name Insurance type Covered alliance party ID Ok cisse(s) Medicare [place] MB [id number] [facility] Mcaid [id number] Social History Type Description Quantity Date Captured Comments Sex Female Smoking Status No Information Gender Identity Female Chief Complaint And Reason For Visit No Information Reason For Referral Reason For Referral No Information Plan Of Treatment Date Type Action Status Appointment Layla Maher // LILIA WINTER 6 Month F/u BOOKED Future Order: Radiology Order Up per Body Flouroscopy ([id number]), Ordered on: Ordered Future Order: Radiology Order Up per Body Flouroscopy ([id number]), Ordered on: Ordered Future Order: Radiology Order Up per Body Flouroscopy ([id number]), Ordered on: Ordered Future Order: Radiology Order Up per Body Flouroscopy ([id number]), Ordered on: Ordered History Of Present Illness Encounter Date Complaint History Of Prese nt Illness No Information Functional Status Date Functional Assessmen t No Information Instructions Date Instruction Additional Infor mation No Information Assessments Type Assessment Date No Information Patient Care Teams Name Effective Dates (start - stop) Status Members No Information
--- NOTE | ~2025-02-18 | CT_ITS ---
EXAMINATION: CT cervical spine wo con DATE: 02/18/2025 07:44 INDICATION: Neck injury. TECHNIQUE: Computed tomography (CT) of the cervical spine was performed without intravenous contrast. Automated exposure control and iterative reconstruction technique were employed. The dose-length product was 445.49 mGy-cm. COMPARISON: CT cervical spine 01/17/2025 FINDINGS: There is mild motion artifact. There is 4 degrees dextrocurvature of cervicothoracic spine. Vertebral body heights are normal. There is mildly decreased disc height at C4-C5 and severely decreased disc height at C5-C6 and C6-C7. There is multilevel [id number] facet joint osteoarthritis. There is severe bilateral uncovertebral joint osteoarthritis at C5-C6 and C6-C7. There is mild neural foraminal stenosis at multiple levels on either side. There is mild central canal stenosis at C5-C6 and C6-C7. IMPRESSION: 1. No fracture 2. Severe cervical spondylosis. Reviewed, dictated and finalized at location E. ER PLANTER
--- NOTE | ~2025-02-18 | CT_ITS ---
CT HEAD NON-CONTRAST Clinical History: trauma Comparison: CT brain 01/17/2025 Technique: Unenhanced axial images skull base to vertex Coronal, sagittal reformats CT images acquired with automatic exposure control for dose reduction DLP: 681 mGy-cm Findings: Age-related atrophy. 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 Unchanged small right frontal parafalcine meningioma. Sulci, ventricles: Unremarkable. No intracerebral hemorrhage. No evidence acute territorial infarct. No mass effect, midline shift, intra-/extra-axial fluid collection. Bony calvarium intact. Visualized paranasal sinuses: Clear. Mastoid air cells: Clear. IMPRESSION: 1. No acute intracranial findings. Reviewed, dictated and finalized at location R. MANAGER
[2025-02-18 07:13] VITALS: BP 96/58; PULSE 109; RESP 20; TEMP 36.8; O2SAT 98
--- NOTE | 2025-02-18 07:27 | ED.GENADULT ---
HPI - General Adult General Chief complaint: Fall Stated complaint: fall Time Seen by Provider: 02/18/25 07:20 History of Present Illness HPI narrative: 79-year-old female present to the emergency department for evaluation after having a fall from bed. Patient states she does often rule out of her bed reports her bed is quite high from the ground. Patient is unsure if she struck her head. Patient denies any acute pain or injury but states she is having chronic bilateral knee pain. Patient is well-appearing at time of evaluation. No external signs of injury. Patient is resting comfortably. Patient is being provided pain medication for chronic bilateral knee pain. Related Data Home Medications ?Medication ?Instructions ?Recorded ?Confirmed ?Last Taken ?Type acetaminophen 325 mg capsule 650 mg PO QID PRN pain 03/11/24 01/17/25 Unknown History bisacodyl 10 mg rectal suppository 10 mg RECTAL DAILY PRN constipation 03/11/24 01/17/25 Unknown History ergocalciferol (vitamin D2) 1,250 1,250 mcg PO WEEKLY 03/11/24 01/17/25 03/09/24 History mcg (50,000 unit) capsule cholestyramine-aspartame 4 gram 1 ea PO TID 04/01/24 01/17/25 Unknown History oral powder for susp in a packet (Cholestyramine Light) magnesium citrate (Citrate of 296 ml PO DAILY PRN constipation 04/01/24 01/17/25 Unknown History Magnesia oral) magnesium hydroxide 400 mg/5 mL 30 ml PO DAILY PRN constipation 04/01/24 01/17/25 Unknown History oral suspension (Bo Milk of Magnesia) buspirone 5 mg tablet 5 mg PO TID 07/13/24 01/17/25 Unknown History Allergies Allergy/AdvReac Type Severity Reaction Status Date / Time cortisone Allergy Intermediate Dyspnea / Verified 02/18/25 07:17 SOB Penicillins Allergy Intermediate Dyspnea / Verified 02/18/25 07:17 SOB ceftriaxone (From Rocephin) Allergy Difficulty Verified 02/18/25 07:17 Breathing Review of Systems Review of Systems: All systems reviewed & are unremarkable except as noted in HPI and below PMFSH Past Medical History Medical History Metatarsal fracture, pathologic Peroneal tendinitis of both lower legs Pubic ramus fracture Diastolic dysfunction Echocardiogram October 2022: EF greater than 70% mildly increased left ventricular wall thickness, grade 1 diastolic dysfunction, patent foramen ovale visualized on agitated saline mild mitral valve regurgitation, mild tricuspid valve regurgitation mild pulmonary hypertension with RVSP of 37 Peripheral autonomic neuropathy due to diabetes mellitus Osteomyelitis of toe of left foot COVID-19 virus infection Renal osteodystrophy Erythropoietin deficiency anemia End-stage renal disease on hemodialysis Thursday Normal colonoscopy (08/2019) Tushar (1991) Gastroesophageal reflux disease Restless leg syndrome Renal cell carcinoma (2004) Obstructive sleep apnea No longer using CPAP after 40 lb weight loss. Coronary artery disease History of stent x3. Anemia of chronic disease Pericardial effusion (01/2020) Small pericardial effusion on echocardiogram, felt to be related to uremia. Peripheral vascular disease Crohn's disease History of kidney stones Peritonitis (01/2020) Surgical History Surgical History Amputation toe Left 2nd toe. History of complete ray amputation of second toe of left foot History of complete ray amputation of second toe of right foot History of cholecystectomy History of appendectomy History of foot surgery Repair of left foot fracture with pinning. History of partial nephrectomy (2004) Left partial nephrectomy for kidney cancer. History of tonsillectomy History of bilateral carpal tunnel release History of hysterectomy (1976) With cystocele and rectocele repairs. History of cardiac catheterization With stent x3. History of cystoscopy With ureteral stents for kidney stones. History of colonoscopy Family History Family History Father Renal cell carcinoma Acute myocardial infarction Cerebrovascular accident Colon polyp Heart disease Hypertension Mother Lung cancer Acute myocardial infarction Cerebrovascular accident Depression Heart disease Hypertension Son Asthma Social History Social History Social History: Patient is retired. 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 She had 1 son who at 50 years old heart attack. She has a 2nd son who is still living and he was her surrogate decision maker. To smoke 1 pack of cigarettes per day for about 30 years. She quit smoking in 1995. She denies any alcohol use or illicit substance use. She is living in [facility]. Surrogate medical decision maker: Dong Maher, son. Code status: DNR/DNI Smoking packs per day: 0.5 Smoking cigarettes per day: 10.0 Years smoked: 10 Smoking pack-years: 5.00 Smoking status: Former smoker Tobacco type: cigarettes Second hand tobacco smoke exposure: No Smoking end date: 03/16/93 Alcohol intake: never Substance use: never Lack of Transportation: No Lack of Food: Never True Current Housing: I Have Housing Concerned About Future Housing: No Difficulty Paying Gas/Electric Bills: No Difficulty Paying for Meds: No Currently Unemployed: No Education: High School Diploma/GED Difficulty w/ Childcare or Family Care: No Living arrangements: alone Additional living arrangements comments: , lives in [place]. 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 Spiritual care concerns: No Agree to blood products: Yes Exam Narrative: APPEARANCE: Well appearing, no pain, no distress, well-nourished. HEAD: normocephalic, atraumatic. EYES: PERRLA/EOMI, conjunctivae clear. NOSE: Normal no drainage EARS:TMS clear with good light reflex. THROAT: Pharynx clear, no exudate. NECK: Supple. No adenopathy, no masses. RESPIRATORY: Airway patent, respirations nonlabored. Clear to auscultation bilaterally, no rales, rhonchi, wheezing. CARDIOVASCULAR: Regular rate and rhythm without murmurs rubs or gallops. ABDOMINAL: Soft, nontender, nondistended, normal bowel sounds MUSCULOSKELETAL: Moves all extremities. Strength/ROM intact, No edema, No calf tenderness. NEURO: Alert. Cranial nerves II through XII intact. Good gait. Good coordination SKIN: Warm, dry. Normal Color Course Vital Signs Vital signs: Vital Signs Temperature 98.2 F 02/18/25 07:13 Pulse Rate 109 H 02/18/25 07:13 Respiratory Rate 20 02/18/25 07:13 Blood Pressure 96/58 L 02/18/25 07:13 Pulse Oximetry 98 02/18/25 07:13 Oxygen Delivery Room Air 02/18/25 07:13 Temperature 98.2 F 02/18/25 07:13 Pulse Rate 109 H 02/18/25 07:13 Respiratory Rate 20 02/18/25 07:13 Blood Pressure 96/58 L 02/18/25 07:13 Pulse Oximetry 98 02/18/25 07:13 Oxygen Delivery Room Air 02/18/25 07:13 MDM MDM Narrative Medical decision making narrative: 79-year-old female present to the emergency department for evaluation after having a fall from bed. Patient had no complaints of any acute pain. Patient was unsure if she had struck her head so CT head and neck were ordered. These were negative for acute intracranial and cervical abnormalities. Patient was provided [place] for her chronic knee pain. Patient states she did not injure her knees during the fall. Patient was up to the results of workup patient will be discharged back to her care facility. All questions concerns were addressed. Differential Diagnosis Differential Diagnosis: subdural hematoma, subarachnoid hemorrhage, cervical spine fracture Imaging Data Radiologist's impression: ITS Impressions Head CT 02/18/25 08:04 IMPRESSION: 1. No acute intracranial findings. Cervical Spine CT 02/18/25 08:21 IMPRESSION: 1. No fracture 2. Severe cervical spondylosis. Discharge Plan Discharge Clinical Impression: Head injury, Fall from bed, Bilateral chronic knee pain Patient Disposition: NH Senior Living/Asst Living Condition: Stable Instructions: Antibiotic Form, Head Injury (ED) Additional Instructions: have close follow-up with your primary care physician. If you have any worsening symptoms please call or return to the emergency department. Patient Language: Bengali Prescriptions: No Action dicyclomine 20 mg tablet 20 mg PO TID Qty: 90 5RF Cholestyramine Light 4 gram powder 4 g PO TID Qty: 239.4 5RF Rx Instructions: administer w/meal; avoid other meds within 1hr before or 4-6hr after dose budesonide 9 mg tablet,delayed and ext.release 9 mg PO DAILY Qty: 30 1RF diclofenac sodium [Arthritis Pain (diclofenac)] 1 % gel 2 g topical QID Qty: 50 2RF Rx Instructions: Apply to bilateral feet daily as needed escitalopram oxalate 10 mg tablet 10 mg PO DAILY Qty: 30 5RF acetaminophen 325 mg capsule 650 mg PO QID PRN (Reason: pain) bisacodyl 10 mg suppository 10 mg RECTAL DAILY PRN (Reason: constipation) ergocalciferol (vitamin D2) 1,250 mcg (50,000 unit) capsule 1,250 mcg PO WEEKLY Patient Comments: On Wednesdays loperamide 2 mg tablet 2 mg PO QID PRN (Reason: loose stool) Qty: 20 0RF cyclobenzaprine 5 mg tablet 5 mg PO TID PRN (Reason: muscle spasm) Qty: 10 0RF magnesium citrate [Citrate of Magnesia] Solution 296 ml PO DAILY PRN (Reason: constipation) magnesium hydroxide [Bo Milk of Magnesia] 400 mg/5 mL suspension 30 ml PO DAILY PRN (Reason: constipation) cholestyramine-aspartame [Cholestyramine Light] 4 gram powder in packet 1 ea PO TID hydrocodone-acetaminophen 5-325 mg tablet 1 tablet PO Q6H PRN (Reason: pain) Qty: 14 0RF fluconazole 100 mg tablet 100 mg PO .Q72HR 9 Days Qty: 3 0RF levofloxacin 500 mg tablet 500 mg PO .q48hr 7 Days Qty: 3 0RF ketoconazole 2 % cream 1 applic topical BID Qty: 30 0RF Rx Instructions: apply to affected area twice daily atorvastatin 40 mg tablet 40 mg PO DAILY Qty: 90 2RF bupropion HCl 150 mg tablet extended release 24 hr 150 mg PO QAM Qty: 90 1RF diclofenac sodium [Voltaren Arthritis Pain] 1 % gel 2 g topical BID PRN (Reason: knee pain) Qty: 200 5RF Rx Instructions: apply to single elbow, wrist or hand; for hand includes palm/fingers/back of hand levetiracetam 500 mg tablet 500 mg PO Q12H Qty: 180 1RF mirtazapine 30 mg tablet 30 mg PO QHS Qty: 90 1RF pantoprazole 40 mg tablet,delayed release (DR/EC) 40 mg PO QAM Qty: 90 1RF clobetasol 0.05 % cream See Rx Instructions .ROUTE .COMPLEX Qty: 30 0RF Dose Instruction: APPLY TO AFFECTED AREAS TWICE DAILY Rx Instructions: APPLY TO AFFECTED AREAS TWICE DAILY buspirone 5 mg tablet 5 mg PO TID ropinirole 1 mg tablet 1 mg PO BID Qty: 180 1RF loperamide 2 mg tablet 4 mg PO QID PRN (Reason: loose stool) Qty: 100 5RF hydrocodone-acetaminophen 5-325 mg tablet 1 tablet PO QID PRN (Reason: pain) Qty: 120 0RF Follow-up/Referrals: Justen Singer MD [Primary Care Provider, Family Practice]
--- OUTSIDE RECORDS SUMMARY | 2025-02-18 07:31 | XMS_ITS | Clinical Summary ---
Author Organization [facility] Address [address], [place] [address] Phone Care Team Providers Care Manager Logistic Name Role Phone Justen Bonds MD Primary Care Provider [phone] Allergies Active Allergy Reactions Criticality Noted Date [...] Vaccine (#1) 2024 01/06/2019, 2012 Insurance MEDICARE [facility] PM INTERFACED INSURANCE Care Teams Manager Logistic Relationship Specialty Start Date End Date Justen Bonds MD [address] [address] PCP - General Family Medicine 01/10/19
--- OUTSIDE RECORDS SUMMARY | 2025-02-18 07:31 | XMS_ITS | Clinical Summary ---
Author Organization [facility] Address [address] [place] [address] Care Team Providers Care Vat Tender Name Role Phone Justen Singer MD Primary Care Provider + Source Comments [facility],non-owned Affiliates and Associated Physician Practices is amultiple site organization consisting of ambulatory clinics and hospital sitesin [place], [place], [place] and [place]. This disclosure is being madepursuant to the Care Everywhere program and may not contain all information available regarding this patient. 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 Treatment target values recommended by ADA and other clinical organizations should be used to evaluate metabolic control in patients. Reference: [place] Diabetes Association, Standards of Care in Diabetes [...] LAB - CHEMISTRY ORDERABLES Mai escalona Result [facility] [address] [place] [address], [facility] [phone] from Last 3 Months or Most Recently Relevant to Health Maintenance [place] [address] MEDICARE [facility] MEDICARE MEDICARE Advance Directives Documents on File Type Date Recorded Patient Rf Technician Expl anation Adv Directive/Living Will/POA 08/15/2022 11:36 [...] 3:50 PM 10/30/2021 11:48 AM Care Teams Vat Tender Relationship Specialty Start Date End Date Justen Singer MD [address] [address] PCP - General 02/14/20
--- OUTSIDE RECORDS SUMMARY | 2025-02-18 07:31 | XMS_ITS | Clinical Summary ---
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 Gender Identity Not on file Sexual Orientation Not on file Last Filed Vital Signs Vital Sign Reading Time Taken Comments Blood Pressure 178/70 05/06/2022 9:26 AM CARPENTER HELPER Pulse 73 05/06/2022 9:26 AM CARPENTER HELPER Temperature 36.6 C (97.8 F) 08/26/2021 2:10 PM CDT Respiratory Rate 18 03/19/2020 8:41 PM CARPENTER HELPER Oxygen Saturation 90% 05/06/2022 9:26 AM CARPENTER HELPER Inhaled Oxygen Concentration - - Weight 73.9 kg (163 lb) 05/06/2022 9:26 AM CARPENTER HELPER Height 160 cm (5' 3) 05/06/2022 9:26 AM CARPENTER HELPER Body Mass Index 28.87 05/06/2022 9:26 AM CARPENTER HELPER Plan of Treatment Health Maintenance Due Date [...] 90 - 130 mL/min/1.7 3 m2 [facility] Comment: Interpretive Data Reference Interval Normal [...] PM CDT 11/23/2020 12:24 PM CDT Result [facility] Jani Rose MD LAB BLOOD ORDERABLES Final Result Performing Organization Address City/[facility] Co de Phone Number [facility] [place] [employer] [place] [address] * Hepatitis C antibody (11/23/2020 12:05 PM CDT) Pathologist [facility] Hep C Ab Nonreactive Nonreactive [facility] Comment:Antibodies to HCV no t detected. Does NOT exclude the possibility of recent exposure to HCV. Blood 11/23/2020 12:0 5 PM CDT 11/23/2020 12:20 PM CDT Result [facility] Jani Rose MD LAB MICROBIOLOGY - GENERAL ORDERABLES Edited Result - Final Performing Organization Address [facility] de Phone Number [facility] [place] [employer] [address] * (ABNORMAL) Hemoglobin A1c (11/23/2020 12:05 PM CDT) [facility] Hgb A1C 6.1(H) 4.0 - 5.6 % [facility] Estimated Average Glucose 128 mg/dL [facility] Comment: The ADA recommends reporting an [...] BLOOD ORDERABLES Final Result Performing Organization Address [facility] Co de Phone Number [facility] [place] [employer] [place] [address] * (ABNORMAL) Lipid panel (11/23/2020 12:05 PM CDT) Cholesterol 148 30 - 199 mg/dL [facility] Comment: Interpretive Data Ages < or [...] revised on 2017. Triglycerides 303(H) <=149 mg/dL [facility] Comment: Interpretive Data Ages < or [...] revised on 2017. HDL 41 >=40 mg/dL [facility] Comment: Interpretive Data Ages < or [...] revised on 2017. Non-HDL Cholesterol 107 mg/dL [facility] Comment: Interpretive Data Ages < or [...] Final Result [facility] Department [place] [address] from Last 3 Months or Most Recently Relevant to Health Maintenance Insurance MEDICARE [facility]ICARE [facility] MEDICARE IDPA [facility] MEDICARE SUPPLEMENT Care Teams Fur Puller Relationship Specialty Start Date End Date Justen Singer MD PCP - General Family Medicine 08/27/20 Jamshid Joe MD Referring Physician Nephrology 10/08/20 Alex Edgar MD Referring Physician Cardiology 10/08/20
--- OUTSIDE RECORDS SUMMARY | 2025-02-18 07:31 | XMS_ITS | Encounter Summary ---
Author Organization [facility] Address [address] [place] [address] Phone Care Team Providers Care Director Public Name Role Phone Justne Singer MD Primary Care Prov ider Justen Singer MD Primary Care Prov ider Lita Elizabeth RN Unavailable Jamshid Joe MD Unavailable [phone] Alex Edgar MD Unavailable [phone] Encounter Details Date Type Department Care Team (Late st Contact Info) Description 12/15/2019 Telephone [facility] Cardiology [address] [place] [address] [place] [address] Alex Edgar MD [address] [facility] [address], [place] [id number] Social History Tobacco Use Types Packs/Day Years Used Date Smoking Tobacco: Former Smokeless Tobacco: Never Comments Unknown Sex and Gender Information Value Date Recorded Sex Assigned at Not on file Legal Sex Female 6:58 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 Gender Identity Not on file Sexual Orientation Not on file documented as of this encounter Plan of Treatment Not on file documented as of this encounter Visit Diagnoses Not on filedocumented in this encounter Additional Health Concerns Infection Onset Date Last Indicated Resolved Time COVID19 03/19/2020 03/19/2020 04/02/2020 3:07 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 documented as of this encounter Care Teams Director Public Relationship Specialty Start Date End Date Justen Singer MD PCP - General 03/27/17 08/26/20 Justen Singer MD PCP - General Family Medicine 08/27/20 Lita Elizabeth, RN [address] [id number] Registered Nurse Electrical Instrument Maker 08/27/20 Jamshid Joe MD [address] [address] Referring Physician Nephrology 10/08/20 Alex Edgar MD [address] [address] Referring Physician Cardiology 10/08/20 documented as of this encounter
--- OUTSIDE RECORDS SUMMARY | 2025-02-18 07:31 | XMS_ITS | Clinical Summary ---
Author Organization [facility] Address [address] [place] [place] [address] Phone Care Team Providers Care Joint Yarner Name Role Phone Justen Singer MD Primary Care Provider [phone] Allergies Active Allergy Reactions Criticality Noted Date [...] Comments Blood Pressure 173/60 04/24/2020 9:15 AM LEATHER POLISHER Pulse 59 04/24/2020 6:13 AM LEATHER POLISHER Temperature 36.6 C (97.8 F) 04/24/2020 6:13 AM LEATHER POLISHER Respiratory Rate 17 04/24/2020 9:15 AM LEATHER POLISHER Oxygen Saturation 97% 04/24/2020 9:15 AM LEATHER POLISHER Inhaled Oxygen Concentration - - Weight 68 kg (150 lb) 04/24/2020 6:13 AM LEATHER POLISHER Height 160 cm (5' 3) 04/24/2020 6:13 AM LEATHER POLISHER Body Mass Index 26.57 04/24/2020 6:13 AM LEATHER POLISHER Plan of Treatment Health Maintenance Due Date [...] history exists Medical Devices Implanted Type Area Document Controller Device Identifier Shelf Expiration Date Model / Serial / Lot 3 Cardiac Stents Left Renal Stent Explanted Type Area Document Controller Device Identifier Shelf Expiration Date Model / Serial / Lot Cath Pd Howard Curl 2cuff [id number] - [id number] Implanted:Qty : 1 on 01/25/2020 by Rafita Bartlett MD at [facility] Explanted:Qty : 1 on 04/24/2020 by Hawk Angel MD at [facility] Catheter N/A: Abdomen [employer] - COVIDIEN 09/12/2024 [id number] / / [id number] Insurance MEDICARE PART A AND B BCBS SUPP Advance Directives For more information, please contact: [phone] * Full Code (Latest Code Status on File) Date Activated Date Inactivated Comments 04/24/2020 7:08 AM 04/24/2020 11:55 AM * Full Code Date Activated Date Inactivated Comments 04/24/2020 5:39 AM 04/24/2020 7:07 AM * Full Code Date Activated Date Inactivated Comments 01/25/2020 5:51 AM 01/26/2020 7:33 PM Care Teams Joint Yarner Relationship Specialty Start Date End Date Justen Singer MD PCP - General Family Practice 01/25/20
[2025-02-18] MEDS: HYDROcodone/acetaminophen (*CRX) 5-325 MG TABLET 1 TAB PO (07:41)
--- NOTE | 2025-02-18 08:40 | PC.NURSE ---
pt's son will pick her up in about 1 hour.
== END 2025-02-18 09:00 ==
PROVIDERS: Emergency Provider Emergency Medicine; PCP Family Medicine Adolescent Medicine
DX: S09.90XA Unspecified injury of head, initial encounter (principal); M25.562 Pain in left knee; M25.561 Pain in right knee; G89.29 Other chronic pain; N18.6 End stage renal disease; E11.22 Type 2 diabetes mellitus with diabetic chronic kidney disease; I12.0 Hypertensive chronic kidney disease with stage 5 chronic kidney disease or end stage renal disease; D63.1 Anemia in chronic kidney disease; N25.0 Renal osteodystrophy; Z99.2 Dependence on renal dialysis; E11.43 Type 2 diabetes mellitus with diabetic autonomic (poly)neuropathy; E11.51 Type 2 diabetes mellitus with diabetic peripheral angiopathy without gangrene; I73.9 Peripheral vascular disease, unspecified; I25.10 Atherosclerotic heart disease of native coronary artery without angina pectoris; G25.81 Restless legs syndrome; K50.90 Crohn's disease, unspecified, without complications; K21.9 Gastro-esophageal reflux disease without esophagitis; Z66 Do not resuscitate; Z95.1 Presence of aortocoronary bypass graft; Z86.16 Personal history of COVID-19; Z87.442 Personal history of urinary calculi; Z87.891 Personal history of nicotine dependence; Z85.528 Personal history of other malignant neoplasm of kidney; Z89.422 Acquired absence of other left toe(s); Z89.421 Acquired absence of other right toe(s); Z90.49 Acquired absence of other specified parts of digestive tract; Z90.5 Acquired absence of kidney; Z90.710 Acquired absence of both cervix and uterus; Z79.899 Other long term (current) drug therapy; M47.812 Spondylosis without myelopathy or radiculopathy, cervical region; W06.XXXA Fall from bed, initial encounter
CPT/HCPCS: 70450; 72125; 99284; A9270

== ENCOUNTER 2025-02-22 16:54 | Emergency (ER) | payer MEDICARE, SELFPAY ==
[2025-02-22 16:56] VITALS: BP 118/69; PULSE 108; RESP 20; TEMP 36.1; O2SAT 98
--- NOTE | 2025-02-22 18:05 | ED.FEMALEGU ---
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 She reports she lives at [facility] and is on dialysis, Thursday/Thursday/Thursday. Patient is only mobile to transfer from wheelchair to bed. She endorses vaginal discharge and pain in her vaginal area but it is unclear when this started. Patient was asked if she had been sexually active recently and she replied not in 27 years but then laughed and said just kidding. She did not answer the question clearly after that. Patient denies any constipation, recent fevers, abdominal pain or acute back pain. She reports she does not make much urine. Related Data Home Medications ?Medication ?Instructions ?Recorded ?Confirmed ?Last Taken ?Type acetaminophen 325 mg capsule 650 mg PO QID PRN pain 03/11/24 01/17/25 Unknown History bisacodyl 10 mg rectal suppository 10 mg RECTAL DAILY PRN constipation 03/11/24 01/17/25 Unknown History ergocalciferol (vitamin D2) 1,250 1,250 mcg PO WEEKLY 03/11/24 01/17/25 03/09/24 History mcg (50,000 unit) capsule cholestyramine-aspartame 4 gram 1 ea PO TID 04/01/24 01/17/25 Unknown History oral powder for susp in a packet (Cholestyramine Light) magnesium citrate (Citrate of 296 ml PO DAILY PRN constipation 04/01/24 01/17/25 Unknown History Magnesia oral) magnesium hydroxide 400 mg/5 mL 30 ml PO DAILY PRN constipation 04/01/24 01/17/25 Unknown History oral suspension (Bo Milk of Magnesia) buspirone 5 mg tablet 5 mg PO TID 07/13/24 01/17/25 Unknown History Allergies Allergy/AdvReac Type Severity Reaction Status Date / Time cortisone Allergy Intermediate Dyspnea / Verified 02/18/25 07:17 SOB Penicillins Allergy Intermediate Dyspnea / Verified 02/18/25 07:17 SOB ceftriaxone (From Rocephin) Allergy Difficulty Verified 02/18/25 07:17 Breathing Review of Systems Review of Systems: All systems reviewed & are unremarkable except as noted in HPI and below PMFSH Past Medical History Medical History Metatarsal fracture, pathologic Peroneal tendinitis of both lower legs Pubic ramus fracture Diastolic dysfunction Echocardiogram October 2022: EF greater than 70% mildly increased left ventricular wall thickness, grade 1 diastolic dysfunction, patent foramen ovale visualized on agitated saline mild mitral valve regurgitation, mild tricuspid valve regurgitation mild pulmonary hypertension with RVSP of 37 Peripheral autonomic neuropathy due to diabetes mellitus Osteomyelitis of toe of left foot COVID-19 virus infection Renal osteodystrophy Erythropoietin deficiency anemia End-stage renal disease on hemodialysis Thursday Normal colonoscopy (08/2019) Tushar (1991) Gastroesophageal reflux disease Restless leg syndrome Renal cell carcinoma (2004) Obstructive sleep apnea No longer using CPAP after 40 lb weight loss. Coronary artery disease History of stent x3. Anemia of chronic disease Pericardial effusion (01/2020) Small pericardial effusion on echocardiogram, felt to be related to uremia. Peripheral vascular disease Crohn's disease History of kidney stones Peritonitis (01/2020) Surgical History Surgical History Amputation toe Left 2nd toe. History of complete ray amputation of second toe of left foot History of complete ray amputation of second toe of right foot History of cholecystectomy History of appendectomy History of foot surgery Repair of left foot fracture with pinning. History of partial nephrectomy (2004) Left partial nephrectomy for kidney cancer. History of tonsillectomy History of bilateral carpal tunnel release History of hysterectomy (1976) With cystocele and rectocele repairs. History of cardiac catheterization With stent x3. History of cystoscopy With ureteral stents for kidney stones. History of colonoscopy Family History Family History Father Renal cell carcinoma Acute myocardial infarction Cerebrovascular accident Colon polyp Heart disease Hypertension Mother Lung cancer Acute myocardial infarction Cerebrovascular accident Depression Heart disease Hypertension Son Asthma Social History Social History Social History: Patient is retired. 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 She had 1 son who at 50 years old heart attack. She has a 2nd son who is still living and he was her surrogate decision maker. To smoke 1 pack of cigarettes per day for about 30 years. She quit smoking in 1995. She denies any alcohol use or illicit substance use. She is living in [facility]. Surrogate medical decision maker: Dong Maher, son. Code status: DNR/DNI Smoking packs per day: 0.5 Smoking cigarettes per day: 10.0 Years smoked: 10 Smoking pack-years: 5.00 Smoking status: Former smoker Tobacco type: cigarettes Second hand tobacco smoke exposure: No Smoking end date: 03/16/93 Alcohol intake: never Substance use: never Lack of Transportation: No Lack of Food: Never True Current Housing: I Have Housing Concerned About Future Housing: No Difficulty Paying Gas/Electric Bills: No Difficulty Paying for Meds: No Currently Unemployed: No Education: High School Diploma/GED Difficulty w/ Childcare or Family Care: No Living arrangements: alone Additional living arrangements comments: , lives in [place]. 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 Spiritual care concerns: No Agree to blood products: Yes Exam Narrative: GENERAL: Well appearing, well-nourished, non-toxic, in no acute distress. HEAD: Normocephalic, atraumatic. NECK: Supple. No adenopathy, no masses. RESPIRATORY: Airway patent, respirations nonlabored. Clear to auscultation bilaterally, no rales, rhonchi, wheezing. CARDIOVASCULAR: Regular rate and rhythm without murmurs, rubs, or gallops. Peripheral pulses 2+ and equal bilaterally. ABDOMINAL: Soft, nontender, nondistended, no hepatosplenomegaly. Normoactive BS. MUSCULOSKELETAL: Moves all extremities. Strength/ROM intact without gross deformities. SKIN: Warm, dry, normal color. No rashes. Quarter-sized ulcer to R lower buttock, multiple tiny ulcers in vaginal area, no vaginal discharge noted NEURO: A&O X3. Speech clear. Cranial nerves II-XII intact. No ataxic movements. PSYCHIATRIC: Appropriate mood and affect. Normal interaction. Course Vital Signs Vital signs: Vital Signs Temperature 36.1 C L 02/22/25 16:56 Pulse Rate 108 H 02/22/25 16:56 Respiratory Rate 20 02/22/25 16:56 Blood Pressure 118/69 02/22/25 16:56 Pulse Oximetry 98 02/22/25 16:56 Oxygen Delivery Room Air 02/22/25 16:56 Temperature 36.1 C L 02/22/25 16:56 Pulse Rate 108 H 02/22/25 16:56 Respiratory Rate 20 02/22/25 16:56 Blood Pressure 118/69 02/22/25 16:56 Pulse Oximetry 98 02/22/25 16:56 Oxygen Delivery Room Air 02/22/25 16:56 [facility] MDM Narrative Medical decision making narrative: Patient is a 79-year-old female presents to the ER with complaints of vaginal discomfort and a wound on her right buttocks. She reports she lives at [facility] and is on dialysis, Thursday/Thursday/Thursday. Patient is only mobile to transfer from wheelchair to bed. She endorses vaginal discharge and pain in her vaginal area but it is unclear when this started. Patient was asked if she had been sexually active recently and she replied not in 27 years but then laughed and said just kidding. She did not answer the question clearly after that. Patient denies any constipation, recent fevers, abdominal pain or acute back pain. She reports she does not make much urine. Patient Education/Shared MDM: Results of examination shared with patient. She does not want to stay in the ER to wait for her STD results. Patient will be treated for herpes genitalis and advised to follow-up on her remaining STD panel with her primary care provider. She endorses improvement of symptoms following medication administration. Patient strongly advised to complete her full dose of anti-virals. She will be discharged home with a prescription for Acyclovir x 7 days and given her first dose here. Strict return precautions provided. Patient verbalized understanding and is in agreement with plan. Vital signs stable at time of discharge. All questions answered. 2129- All of pt's STD results came back negative. She will still be treated for herpes genitalis. Differential Diagnosis Differential Diagnosis: Chlamydia, gonorrhea, Trichomonas, herpes Lab Data [facility] Lab Attestation statement: I personally reviewed the patient's lab results. Labs: Lab Results 02/22/25 Range/Units 19:14 C. trachomatis (PCR) Not detected (NOT DETECTE) HSV I DNA PCR Pending HSV II DNA PCR Pending N. gonorrhoeae (PCR) Not detected (NOT DETECTE) T. vaginalis (PCR) Not detected (NOT DETECTE) Discharge Plan Discharge Clinical Impression: Genital herpes simplex Patient Disposition: NH Senior Care/Asst Living Condition: Stable Instructions: Antibiotic Form, Genital Herpes Infection (ED) Additional Instructions: Please return to the ER with any worsening symptoms. Follow-up with primary care provider in the next 2-3 days to ensure your sores are healing and review your STD results. Take all medications as prescribed, including regularly scheduled medications. Please complete your full dose of antiviral medication. Patient Language: Palauan Prescriptions: New acyclovir 400 mg tablet 400 mg PO TID 7 Days Qty: 21 0RF No Action dicyclomine 20 mg tablet 20 mg PO TID Qty: 90 5RF Cholestyramine Light 4 gram powder 4 g PO TID Qty: 239.4 5RF Rx Instructions: administer w/meal; avoid other meds within 1hr before or 4-6hr after dose budesonide 9 mg tablet,delayed and ext.release 9 mg PO DAILY Qty: 30 1RF diclofenac sodium [Arthritis Pain (diclofenac)] 1 % gel 2 g topical QID Qty: 50 2RF Rx Instructions: Apply to bilateral feet daily as needed escitalopram oxalate 10 mg tablet 10 mg PO DAILY Qty: 30 5RF acetaminophen 325 mg capsule 650 mg PO QID PRN (Reason: pain) bisacodyl 10 mg suppository 10 mg RECTAL DAILY PRN (Reason: constipation) ergocalciferol (vitamin D2) 1,250 mcg (50,000 unit) capsule 1,250 mcg PO WEEKLY Patient Comments: On Wednesdays loperamide 2 mg tablet 2 mg PO QID PRN (Reason: loose stool) Qty: 20 0RF cyclobenzaprine 5 mg tablet 5 mg PO TID PRN (Reason: muscle spasm) Qty: 10 0RF magnesium citrate [Citrate of Magnesia] Solution 296 ml PO DAILY PRN (Reason: constipation) magnesium hydroxide [Bo Milk of Magnesia] 400 mg/5 mL suspension 30 ml PO DAILY PRN (Reason: constipation) cholestyramine-aspartame [Cholestyramine Light] 4 gram powder in packet 1 ea PO TID hydrocodone-acetaminophen 5-325 mg tablet 1 tablet PO Q6H PRN (Reason: pain) Qty: 14 0RF fluconazole 100 mg tablet 100 mg PO .Q72HR 9 Days Qty: 3 0RF levofloxacin 500 mg tablet 500 mg PO .q48hr 7 Days Qty: 3 0RF ketoconazole 2 % cream 1 applic topical BID Qty: 30 0RF Rx Instructions: apply to affected area twice daily atorvastatin 40 mg tablet 40 mg PO DAILY Qty: 90 2RF bupropion HCl 150 mg tablet extended release 24 hr 150 mg PO QAM Qty: 90 1RF diclofenac sodium [Voltaren Arthritis Pain] 1 % gel 2 g topical BID PRN (Reason: knee pain) Qty: 200 5RF Rx Instructions: apply to single elbow, wrist or hand; for hand includes palm/fingers/back of hand levetiracetam 500 mg tablet 500 mg PO Q12H Qty: 180 1RF mirtazapine 30 mg tablet 30 mg PO QHS Qty: 90 1RF pantoprazole 40 mg tablet,delayed release (DR/EC) 40 mg PO QAM Qty: 90 1RF clobetasol 0.05 % cream See Rx Instructions .ROUTE .COMPLEX Qty: 30 0RF Dose Instruction: APPLY TO AFFECTED AREAS TWICE DAILY Rx Instructions: APPLY TO AFFECTED AREAS TWICE DAILY buspirone 5 mg tablet 5 mg PO TID ropinirole 1 mg tablet 1 mg PO BID Qty: 180 1RF loperamide 2 mg tablet 4 mg PO QID PRN (Reason: loose stool) Qty: 100 5RF hydrocodone-acetaminophen 5-325 mg tablet 1 tablet PO QID PRN (Reason: pain) Qty: 120 0RF Follow-up/Referrals: Justen Singer MD [Primary Care Provider, Family Practice] Stand Alone Forms: Longterm Discharge Time of Disposition: 20:35
[2025-02-22] MEDS: HYDROcodone/acetaminophen (*CRX) 5-325 MG TABLET 1 TAB PO ×2 (18:16→20:27)
[2025-02-22] MEDS: ACYCLOVIR 400 MG TABLET PO (20:26)
[2025-02-22 20:32] LABS: Trichomonas Vag PCR NOT DETECTED (NOT DETECTE)
--- OUTSIDE RECORDS SUMMARY | 2025-02-22 21:04 | XMS_ITS | Clinical Summary ---
Author Organization [facility] Address [facility] [place] [address] Care Team Providers Care Hand Packer/Packager Name Role Phone Justen Singer MD Primary Care Prov ider Jamshid Joe MD Unavailable [phone] Alex Edgar MD Unavailable [phone] Allergies Active Allergy Reactions Criticality Noted [...] mcg tablet Take 75 mcg by mouth post manager before breakfast Active Vitamin D2 1,250 [...] 03/26/2012 Surgical History Surgery Date Site/Laterality Comments [place] LAPAROSCOPY SURG PARTIAL NEPHRECTOMY Left Kidney Surgery Laparoscopic Partial Nephrectomy - oncocytoma (Added by TW Conv) APPENDECTOMY Appendectomy - (Added by TW Conv) HYSTERECTOMY Hysterectomy - (Added by TW Conv) FOOT FRACTURE SURGERY Treatment Of Foot Fracture - 2004 (Added by TW Conv) CHOLECYSTECTOMY Cholecystectomy - 2005 (Added by TW Conv) [place] PRQ TRLUML CORONARY STENT W/ANGIO ONE ART/BRNCH [...] TW Conv) Atherosclerotic heart diseas e of mechoopda coronary artery without angina pectoris Arteriosclerot ic [...] on file Legal Sex Female 6:58 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 Gender Identity Not on file Sexual Orientation Not on file Last Filed Vital Signs Vital Sign Reading Time Taken Comments Blood Pressure 178/70 05/06/2022 9:26 AM MANAGER MISSION Pulse 73 05/06/2022 9:26 AM MANAGER MISSION Temperature 36.6 C (97.8 F) 08/26/2021 2:10 PM CDT Respiratory Rate 18 03/19/2020 8:41 PM MANAGER MISSION Oxygen Saturation 90% 05/06/2022 9:26 AM MANAGER MISSION Inhaled Oxygen Concentration - - Weight 73.9 kg (163 lb) 05/06/2022 9:26 AM MANAGER MISSION Height 160 cm (5' 3) 05/06/2022 9:26 AM MANAGER MISSION Body Mass Index 28.87 05/06/2022 9:26 AM MANAGER MISSION Plan of Treatment Health Maintenance Due Date [...] 90 - 130 mL/min/1.7 3 m2 [facility] Comment: Interpretive Data Reference Interval [...] PM CDT 11/23/2020 12:24 PM CDT Result [facility] Jani Rose MD LAB BLOOD ORDERABLES Final Result Performing Organization Address City/[facility] Co de Phone Number [facility] Department [place] [place] [address] * Hepatitis C antibody (11/23/2020 12:05 PM CDT) Pathologist [facility] Hep C Ab Nonreactive Nonreactive [facility] Comment:Antibodies to HCV no t detected. Does NOT exclude the possibility of recent exposure to HCV. Blood 11/23/2020 12:0 5 PM CDT 11/23/2020 12:20 PM CDT Result [facility] Jani Rose MD LAB MICROBIOLOGY - GENERAL ORDERABLES Edited Result - Final Performing Organization Address [facility] de Phone Number [facility] [place] [address] * (ABNORMAL) Hemoglobin A1c (11/23/2020 12:05 PM CDT) [facility] Hgb A1C 6.1(H) 4.0 - 5.6 % [facility] Estimated Average Glucose 128 mg/dL [facility] Comment: The ADA recommends reporting [...] BLOOD ORDERABLES Final Result Performing Organization Address [facility] Co de Phone Number [facility] [place] [address] * (ABNORMAL) Lipid panel (11/23/2020 12:05 PM CDT) Cholesterol 148 30 - 199 mg/dL [facility] Comment: Interpretive Data Ages < [...] revised on 2017. Triglycerides 303(H) <=149 mg/dL [facility] Comment: Interpretive Data Ages < [...] revised on 2017. HDL 41 >=40 mg/dL [facility] Comment: Interpretive Data Ages < [...] 2017. LDL, calculated 46 <=129 mg/dL [facility] Comment: Interpretive Data Ages < [...] revised on 2017. Non-HDL Cholesterol 107 mg/dL [facility] Comment: Interpretive Data Ages < [...] revised on 2017. Chol/HDL ratio 4 [facility] Blood 11/23/2020 12:0 5 PM CDT 11/23/2020 12:20 PM CDT us Jani Rose MD LAB BLOOD ORDERABLES Final Result [facility] Department [place] [address] from Last 3 Months or Most Recently Relevant to Health Maintenance Insurance MEDICARE [facility] MEDICARE [facility] MEDICARE IDPA [facility] MEDICARE SUPPLEMENT Care Teams Hand Packer/Packager Relationship Specialty Start Date End Date Justen Singer MD PCP - General Family Medicine 08/27/20 Jamshid Joe MD Referring Physician Nephrology 10/08/20 Alex Edgar MD Referring Physician Cardiology 10/08/20
--- OUTSIDE RECORDS SUMMARY | 2025-02-22 21:04 | XMS_ITS | Encounter Summary ---
Author Organization [facility] Address [address] [place] [address] Phone Care Team Providers Care Prepress Operator Name Role Phone Justen Singer MD Primary Care Prov ider Justen Singer MD Primary Care Prov ider Lita Elizabeth RN Unavailable Jamshid Joe MD Unavailable [phone] Alex Edgar MD Unavailable [phone] Encounter Details Date Type Department Care Team (Late st Contact Info) Description 12/15/2019 Telephone [facility] Cardiology [address] [facility] Advanced Medicine [address]th [place] [address] [place] [address] Alex Edgar MD [address] [facility] [address] [place], [place] [id number] Social History Tobacco Use Types Packs/Day Years Used Date Smoking Tobacco: Former Smokeless Tobacco: Never Comments Unknown Sex and Gender Information Value Date Recorded Sex Assigned at Not on file 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 Gender Identity Not on file Sexual Orientation Not on file documented as of this encounter Plan of Treatment Not on file documented as of this encounter Visit Diagnoses Not on filedocumented in this encounter Additional Health Concerns Infection Onset Date Last Indicated Resolved Time COVID19 03/19/2020 03/19/2020 04/02/2020 3:07 AM WIRE WINDING MACHINE OPERATOR documented as of this encounter Care Teams Prepress Operator Relationship Specialty Start Date End Date Justen Singer MD PCP - General 03/27/17 08/26/20 Justen Singer MD PCP - General Family Medicine 08/27/20 Lita Elizabeth, RN [address] [id number] Registered Nurse Infrastructure Manager 08/27/20 Jamshid Joe MD [address] [address] Referring Physician Nephrology 10/08/20 Alex Edgar MD [address] [address] Referring Physician Cardiology 10/08/20 documented as of this encounter
[2025-02-22 23:16] VITALS: BP 107/52; PULSE 106; RESP 16; O2SAT 100
[2025-02-26 16:07] LABS: HSV-1 DNA Negative (Negative); HSV-2 DNA Negative (Negative)
== END 2025-02-22 23:17 ==
PROVIDERS: Emergency Provider Registered Nurse; PCP Family Medicine Adolescent Medicine
DX: A60.00 Herpesviral infection of urogenital system, unspecified (principal); K21.9 Gastro-esophageal reflux disease without esophagitis; N18.6 End stage renal disease; Z99.2 Dependence on renal dialysis; Z85.53 Personal history of malignant neoplasm of renal pelvis; G47.33 Obstructive sleep apnea (adult) (pediatric); I25.10 Atherosclerotic heart disease of native coronary artery without angina pectoris; K50.90 Crohn's disease, unspecified, without complications; Z90.5 Acquired absence of kidney; Z87.891 Personal history of nicotine dependence
CPT/HCPCS: 86615; 87491; 87529; 87591; 87661; 99283; A9270

== ENCOUNTER 2025-02-26 09:01 | Inpatient (IN) | payer MEDICARE, SELFPAY ==
--- OUTSIDE RECORDS SUMMARY | 2024-12-12 07:17 | XMS_ITS | Continuity of Care Document ---
Author Organization [facility] Address [address] [place] [address] Phone Care Team Providers Care Lamp Shade Sewer Name Role Phone Tyree MODI, Veeral Unavailable Unavailable Allergies, Adverse Reactions, Alerts Substance Reaction Status Criticality ceftriaxone Active No Information cortisone Active No Information PENICILLIN Active No Information Medications Medication Instructions Dosage Effective Dates (start - stop) Status Comments hydrocodone 5 mg-acetaminophen 325 mg tablet - Active budesonide DR-ER 9 mg tablet,delayed and extended release - Active furosemide 80 mg tablet - Ac tive losartan 50 mg tablet - Acti ve Anti-Diarrheal (loperamide) 2 mg tablet - Active clobetasol 0.05 % topical cream - Active loperamide 2 mg capsule - Ac tive levofloxacin 500 mg tablet - Active doxycycline monohydrate 100 mg capsule - Active atorvastatin 40 mg tablet - Active bupropion [...] Procedures Procedure Date CONTRAST, 300/ML, PER ML INTRO CATH DIALYSIS CIRCUIT Radiation Exposure Documented To Be Coded Intro cath dialysis circuit Intro cath dialysis circuit CONTRAST, 300/ML, PER ML MOD SED BY [...] Provider Providers Copied on Encounter [facility], [address] [place] [address], [id number], [place] tel:[phone] [facility] No Information Nov- 5 Bhoot Veeral. [address], [place], [address], [place]. tel:[phone] [facility], [address] [place] [address], [id number], [place] tel:[phone] [facility] End stage renal disease Nov- 5 Bhoot Veeral. [address], [place], [address], [place]. tel:[phone] Referring Provider: Jamshid Owens, [address] [place] [address], [id number]. tel:[phone] [facility], [address] [place] [address], [id number], [place] tel:[phone] [facility] End stage renal disease Nov-2 5 Bhoot Veeral. [address], [place], [address], [place]. tel:[phone] Referring Provider: Jamshid Owens, [address] [place] [address], [id number]. tel:[phone] [facility], [address] [place] [address], [id number], [place] tel:[phone] [facility] No Information Nov- 5 Bhoot Veeral. [address], [place], [address], [place]. tel:[phone] [facility], [address] [place], [place], [id number], [place] tel:[phone] [facility] Compression of VeinEnd stage renal disease May-2 5 [place] Paulo . [address] [place] [address], [id number] , . tel:[phone] Referring Provider: Jamshid Owens, [address] [place] [address], [address]. tel:[phone] [facility], [address] [place] [address], [id number], [place] tel:[phone] [facility] Compression of VeinEnd stage renal disease May-2 5 [place] Paulo . [address] [place] [address], [id number] , [place]. [phone] Referring Provider: Jamshid Owens, [address] [place] [address], [address]. tel:[phone] [facility], [address] [place] [address], [id number], [place] tel:[phone] [facility] Stricture of ArteryEnd stage renal disease Oct-0 4 [place] Paulo . [address] [place] [address], [id number] , [place]. tel:[phone] Referring Provider: Jamshid Owens, [address] [place] [address], [address]. tel:[phone] [facility], [address] [place] [address], [id number], [place] tel:[phone] [facility] End stage renal diseaseStricture of Artery Oct-0 4 [place] Paulo . [address] [place] [address], [id number] , [place]. tel:[phone] Referring Provider: Jamshid Owens, [address] [place] [address], [id number]. tel:[phone] [facility], [address] [place] [address], [id number], tel:[phone] [facility] Compression of VeinEnd stage renal disease Sep-0 6 4 Fabián Fairo . [address] [place], [place], [id number] , [place]. [phone] Referring Provider: Jamshid Owens, [address] [place] [address], [address]. tel:[phone] [facility], [address] [place], [place], [id number], tel:[phone] [facility] End stage renal diseaseCompression of Vein Sep-0 4 [place] Paulo . [address] [place], [place], [id number] , [place]. tel:[phone] Referring Provider: Jamshid Owens, [address] [place] [address], [address]. tel:[phone] As per patient privacy policy some of the clinical information may not be visible. Family History Family Member Type Diagnosis Age At Onset No Information Payers Payer name Insurance type Covered republican ID Ok cisse(s) Medicare [place] MB [id number] [facility] Mcaid [id number] Social History Type Description Quantity Date Captured Comments Sex Female Smoking Status No Information Gender Identity Female Chief Complaint And Reason For Visit No Information Reason For Referral Reason For Referral No Information Plan Of Treatment Date Type Action Status Appointment Layla Maher // LILIA WINTER 6 Month F/u BOOKED Future Order: Radiology Order Up per Body Flouroscopy ([id number]), Ordered on: Ordered Future Order: Radiology Order Up per Body Flouroscopy ([id number]), Ordered on: Ordered Future Order: Radiology Order Up per Body Flouroscopy ([id number]), Ordered on: Ordered Future Order: Radiology Order Up per Body Flouroscopy ([id number]), Ordered on: Ordered History Of Present Illness Encounter Date Complaint History Of Prese nt Illness No Information Functional Status Date Functional Assessmen t No Information Instructions Date Instruction Additional Infor mation No Information Assessments Type Assessment Date No Information Patient Care Teams Name Effective Dates (start - stop) Status Members No Information
[2025-02-26] VITALS (11 sets, daily range): BP systolic 126–148; BP diastolic 50–62; PULSE 79–113; RESP 13–17; TEMP 36.2–36.6; O2SAT 94–98; BMI 30.8
--- NOTE | ~2025-02-26 | CT_ITS ---
EXAMINATION: CT brain wo maryuri, 02/26/2025 14:30 RETAIL SALES ASSOCIATE SEASONAL HISTORY: ams COMPARISON: No comparisons available. Technique: Axial images obtained of the brain without contrast. One or more of the following dose reduction techniques were used: automated exposure control, adjustment of the mA and/or kV according to patient size, use of iterative reconstruction technique. 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 No acute infarct or hemorrhage. No midline shift or mass effect. There are no extra-axial fluid collections. Mastoid air cells unremarkable. Sinuses and orbits unremarkable. No acute fracture. No significant facial or scalp soft tissue swelling evident. No radiopaque foreign body is seen. Impression: 1.No acute intracranial abnormality. Reviewed, dictated and finalized at location P. [place] SALES ASSOCIATE SEASONAL Impression: 1.No acute intracranial abnormality.
--- NOTE | ~2025-02-26 | XR_ITS ---
EXAMINATION: XR chest 1V portable DATE: 02/26/2025 20:48 INDICATION: Altered mental status TECHNIQUE: A single frontal view of the chest was obtained. COMPARISON: November 12, 2024 FINDINGS: The lungs are marginally inflated. Scattered atelectatic appearing changes with possible small infiltrate in left lung base. No dillon pulmonary edema or large effusion. Heart size upper limits normal. No pneumothorax or subphrenic free air seen. Surgical clips right upper quadrant. IMPRESSION: 1. Mild atelectatic appearing changes and possible small left base infiltrate. Reviewed, dictated and finalized at location A. CTIONAL DRILL OPERATOR
--- NOTE | 2025-02-26 09:12 | ECG_ITS ---
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
--- OUTSIDE RECORDS SUMMARY | 2025-02-26 09:12 | XMS_ITS | Clinical Summary ---
Author Organization [facility] Address [facility] [place] [address] Care Team Providers Care Schedule Checker Name Role Phone Justen Singer MD Primary Care Prov ider Jamshid Joe MD Unavailable [phone] Alex Edgar MD Unavailable [phone] Allergies Active Allergy Reactions Criticality Noted [...] mcg tablet Take 75 mcg by mouth document review specialist before breakfast Active Vitamin D2 1,250 mcg [...] 03/26/2012 Surgical History Surgery Date Site/Laterality Comments [place] LAPAROSCOPY SURG PARTIAL NEPHRECTOMY Left Kidney Surgery Laparoscopic Partial Nephrectomy - oncocytoma (Added by TW Conv) APPENDECTOMY Appendectomy - (Added by TW Conv) HYSTERECTOMY Hysterectomy - (Added by TW Conv) FOOT FRACTURE SURGERY Treatment Of Foot Fracture - 2004 (Added by TW Conv) CHOLECYSTECTOMY Cholecystectomy - 2005 (Added by TW Conv) [place] PRQ TRLUML CORONARY STENT W/ANGIO ONE ART/BRNCH [...] TW Conv) Atherosclerotic heart diseas e of [place] coronary artery without angina pectoris Arteriosclerot ic [...] on file Legal Sex Female 6:[address] BAILIFF Gender Identity Not on file Sexual Orientation Not on file Last Filed Vital Signs Vital Sign Reading Time Taken Comments Blood Pressure 178/70 05/06/2022 9:[address] [place]AIL[place] Pulse 73 05/06/2022 9:[address] [place]AIL[place] Temperature 36.6 C (97.8 F) 08/26/2021 2:10 PM CDT Respiratory Rate 18 03/19/2020 8:[address] [place]AILIFF Oxygen Saturation 90% 05/06/2022 9:[address] [place]AIL[place] Inhaled Oxygen Concentration - - Weight 73.9 kg (163 lb) 05/06/2022 9:[address] [place]AIL[place] Height 160 cm (5' 3) 05/06/2022 9:[address] [place]AIL[place] Body Mass Index 28.87 05/06/2022 9:[address] [place]AIL[place] Plan of Treatment Health Maintenance Due Date [...] 90 - 130 mL/min/1.[address] [facility] Comment: Interpretive Data Reference Interval Normal [...] PM CDT 11/23/2020 12:24 PM CDT Result [facility] Jani Rose MD LAB BLOOD ORDERABLES Final Result Performing Organization Address City/[facility] Co de Phone Number [facility] [place] [address] * Hepatitis C antibody (11/23/2020 12:05 PM CDT) Pathologist [facility] Hep C Ab Nonreactive Nonreactive [facility] Comment:Antibodies to HCV no t detected. Does NOT exclude the possibility of recent exposure to HCV. Blood 11/23/2020 12:0 5 PM CDT 11/23/2020 12:20 PM CDT Result [facility] Jani Rose MD LAB MICROBIOLOGY - GENERAL ORDERABLES Edited Result - Final Performing Organization Address [facility] de Phone Number [facility] [place] [address] * (ABNORMAL) Hemoglobin A1c (11/23/2020 12:05 PM CDT) [facility] Hgb A1C 6.1(H) 4.0 - 5.6 % [facility] Estimated Average Glucose 128 mg/dL [facility] Comment: The ADA recommends reporting an [...] BLOOD ORDERABLES Final Result Performing Organization Address [facility] Co de Phone Number [facility] [place] [address] * (ABNORMAL) Lipid panel (11/23/2020 12:05 PM CDT) Cholesterol 148 30 - 199 mg/dL [facility] Comment: Interpretive Data Ages < or [...] revised on 2017. Triglycerides 303(H) <=149 mg/dL [facility] Comment: Interpretive Data Ages < or [...] revised on 2017. HDL 41 >=40 mg/dL [facility] Comment: Interpretive Data Ages < or [...] 2017. LDL, calculated 46 <=129 mg/dL [facility] Comment: Interpretive Data Ages < [...] revised on 2017. Non-HDL Cholesterol 107 mg/dL [facility] Comment: Interpretive Data Ages < or [...] revised on 2017. Chol/HDL ratio 4 [facility] Blood 11/23/2020 12:0 5 PM CDT 11/23/2020 12:20 PM CDT us Jani Rose MD LAB BLOOD ORDERABLES Final Result [facility] Department [place] [address] from Last 3 Months or Most Recently Relevant to Health Maintenance Insurance MEDICARE [facility] MEDICARE [facility] MEDICARE IDPA [facility] MEDICARE SUPPLEMENT Care Teams Schedule Checker Relationship Specialty Start Date End Date Justen Singer MD PCP - General Family Medicine 08/27/20 Jamshid Joe MD Referring Physician Nephrology 10/08/20 Alex Edgar MD Referring Physician Cardiology 10/08/20
--- OUTSIDE RECORDS SUMMARY | 2025-02-26 09:12 | XMS_ITS | Encounter Summary ---
Author Organization [facility] Address [address] [place] [address] Phone Care Team Providers Care Shop Tech Name Role Phone Justen Singer MD Primary Care Prov ider Justen Singer MD Primary Care Prov ider Lita Elizabeth RN Unavailable Jamshid Joe MD Unavailable [phone] Alex Edgar MD Unavailable Encounter Details Date Type Department Care Team (Late st Contact Info) Description 12/15/2019 Telephone [facility] Cardiology [address] [facility] [address] [place] [address] [place] [address] Alex Edgar MD [address] [facility] [address] [place], [place] [id number] Social History Tobacco Use Types Packs/Day Years Used Date Smoking Tobacco: Former Smokeless Tobacco: Never Comments Unknown Sex and Gender Information Value Date Recorded Sex Assigned at Not on file 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 [employer] Gender Identity Not on file Sexual Orientation Not on file documented as of this encounter Plan of Treatment Not on file documented as of this encounter Visit Diagnoses Not on filedocumented in this encounter Additional Health Concerns Infection Onset Date Last Indicated Resolved Time COVID19 03/19/2020 03/19/2020 04/02/2020 3:07 AM [employer]PERVIS[employer] documented as of this encounter Care Teams Shop Tech Relationship Specialty Start Date End Date Justen Singer MD PCP - General 03/27/17 08/26/20 Justen Singer MD PCP - General Family Medicine 08/27/20 Lita Elizabeth, RN [address] [phone] Registered Nurse Assistant Editor 08/27/20 Jamshid Joe MD [address] [address] Referring Physician Nephrology 10/08/20 Alex Edgar MD [address] [address] Referring Physician Cardiology 10/08/20 documented as of this encounter
[2025-02-26 09:25] LABS: Hematocrit 36.0 % (37.0-47.0); Hemoglobin 11.4 g/dL (12.0-15.0); Immature Granulocyte Percent A 1.5 % (0-0.5); Lymphocytes Absolute Auto 1.43 K/mm3 (0.9-3.2); Mean Corpuscular HGB Conc 31.7 g/dl (32-36); Mean Corpuscular Hemoglobin 30.0 pg (26-34); Mean Corpuscular Volume 94.7 fl (80-100); Nucleated Red Blood Cells Absolute Auto 0.000 K/mm3 (0.0-0.012); Nucleated Red Blood Cells Perc 0.0 % (0.0-0.2); Platelet Count Result 333 k/mm3 (150-375); Red Blood Count 3.80 M/mm3 (4.2-5.4); White Blood Count 10.0 K/mm3 (4.5-10.0)
[2025-02-26 09:39] LABS: INR 1.1; Prothrombin Time 14.4 Seconds (11.1-14.7)
[2025-02-26 09:40] LABS: Partial Thromboplastin Time 24.8 Seconds (22.3-36.8)
[2025-02-26 09:48] LABS: Alanine Aminotransferase 18 U/L (6-35); Albumin Level 3.9 g/dL (3.5-5.1); Alkaline Phosphatase 98 U/L (38-126); Anion Gap 9 mmol/L (4-12); Aspartate Amino Transferase 21 U/L (14-36); Bilirubin,Total 0.7 mg/dL (0.2-1.3); Blood Urea Nitrogen 28 mg/dL (7-17); Calcium 9.6 mg/dL (8.4-10.2); Carbon Dioxide 33 mmol/L (22-30); Chloride 99 mmol/L (98-107); Estimated CRCL calculation 7 ml/min; Estimated Glomerular Filt Rate 6; Glucose 110 mg/dL (65-110); Potassium 3.6 mmol/L (3.4-5.0); Sodium 141 mmol/L (137-145); Total Protein 6.9 g/dL (6.3-8.2)
[2025-02-26 10:09] LABS: Add Urine Microscopic? YES; Appearance Urine Turbid (Clear); Glucose Urine UA 1+ mg/dL (Negative); Leukocyte Esterase Ur 3+ LEU/UL (Negative); Need Manual Microscopic Reviewed; Nitrate Urine Negative (Negative); Non Pathogenic Casts >20; Specific Grav Ur 1.013 (1.001-1.035)
--- NOTE | 2025-02-26 12:34 | ED.AMS ---
HPI - Altered Mental Status General Chief Complaint: Altered Mental Status Stated Complaint: ams Time Seen by Provider: 02/26/25 09:04 Source: patient Mode of arrival: EMS Limitations: no limitations History of Present Illness HPI narrative: 79-year-old with a history of hypertension , ESRD on hemodialysis here with the complaints of not feeling well, confusion, hallucination since this morning. She denies having any headache or chest pain or shortness of breath. No history of nausea or vomiting. MD complaint: altered mental status Onset (ago): day(s) (1) Timing confirmed by: caregiver Severity: moderate Associated symptoms: denies other symptoms Related Data Home Medications ?Medication ?Instructions ?Recorded ?Confirmed ?Last Taken ?Type acetaminophen 325 mg capsule 650 mg PO QID PRN pain 03/11/24 01/17/25 Unknown History bisacodyl 10 mg rectal suppository 10 mg RECTAL DAILY PRN constipation 03/11/24 01/17/25 Unknown History ergocalciferol (vitamin D2) 1,250 1,250 mcg PO WEEKLY 03/11/24 01/17/25 03/09/24 History mcg (50,000 unit) capsule cholestyramine-aspartame 4 gram 1 ea PO TID 04/01/24 01/17/25 Unknown History oral powder for susp in a packet (Cholestyramine Light) magnesium citrate (Citrate of 296 ml PO DAILY PRN constipation 04/01/24 01/17/25 Unknown History Magnesia oral) magnesium hydroxide 400 mg/5 mL 30 ml PO DAILY PRN constipation 04/01/24 01/17/25 Unknown History oral suspension (Bo Milk of Magnesia) buspirone 5 mg tablet 5 mg PO TID 07/13/24 01/17/25 Unknown History Allergies Allergy/AdvReac Type Severity Reaction Status Date / Time cortisone Allergy Intermediate Dyspnea / Verified 02/26/25 09:15 SOB Penicillins Allergy Intermediate Dyspnea / Verified 02/26/25 09:15 SOB ceftriaxone (From Rocephin) Allergy Difficulty Verified 02/26/25 09:15 Breathing Review of Systems Review of Systems: All systems reviewed & are unremarkable except as noted in HPI and below Constitutional: Constitutional: Reports no additional constitutional complaints Eyes: Eyes: Reports no additional eye complaints ENT: Reports system reviewed and no additional complaints, except as documented Cardiovascular: Cardiovascular: Reports no additional cardiovascular complaints Respiratory: Respiratory: Reports no additional respiratory complaints Gastrointestinal: Gastrointestinal: Reports no additional gastrointestinal complaints Musculoskeletal: Musculoskeletal: Reports no additional musculoskeletal complaints Integumentary/Breasts: Skin/Breast: Reports system reviewed and no additional complaints, except as docu [facility] Past Medical History Medical History Metatarsal fracture, pathologic Peroneal tendinitis of both lower legs Pubic ramus fracture Diastolic dysfunction Echocardiogram October 2022: EF greater than 70% mildly increased left ventricular wall thickness, grade 1 diastolic dysfunction, patent foramen ovale visualized on agitated saline mild mitral valve regurgitation, mild tricuspid valve regurgitation mild pulmonary hypertension with RVSP of 37 Peripheral autonomic neuropathy due to diabetes mellitus Osteomyelitis of toe of left foot COVID-19 virus infection Renal osteodystrophy Erythropoietin deficiency anemia End-stage renal disease on hemodialysis Thursday Normal colonoscopy (08/2019) Shingles (1991) Gastroesophageal reflux disease Restless leg syndrome Renal cell carcinoma (2004) Obstructive sleep apnea No longer using CPAP after 40 lb weight loss. Coronary artery disease History of stent x3. Anemia of chronic disease Pericardial effusion (01/2020) Small pericardial effusion on echocardiogram, felt to be related to uremia. Peripheral vascular disease Crohn's disease History of kidney stones Peritonitis (01/2020) Surgical History Surgical History Amputation toe Left 2nd toe. History of complete ray amputation of second toe of left foot History of complete ray amputation of second toe of right foot History of cholecystectomy History of appendectomy History of foot surgery Repair of left foot fracture with pinning. History of partial nephrectomy (2004) Left partial nephrectomy for kidney cancer. History of tonsillectomy History of bilateral carpal tunnel release History of hysterectomy (1976) With cystocele and rectocele repairs. History of cardiac catheterization With stent x3. History of cystoscopy With ureteral stents for kidney stones. History of colonoscopy Family History Family History Father Renal cell carcinoma Acute myocardial infarction Cerebrovascular accident Colon polyp Heart disease Hypertension Mother Lung cancer Acute myocardial infarction Cerebrovascular accident Depression Heart disease Hypertension Son Asthma Social History Social History Social History: Patient is retired. 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 She had 1 son who at 50 years old heart attack. She has a 2nd son who is still living and he was her surrogate decision maker. To smoke 1 pack of cigarettes per day for about 30 years. She quit smoking in 1995. She denies any alcohol use or illicit substance use. She is living in [facility]. Surrogate medical decision maker: Dong Maher, son. Code status: DNR/DNI Smoking packs per day: 0.5 Smoking cigarettes per day: 10.0 Years smoked: 10 Smoking pack-years: 5.00 Smoking status: Former smoker Tobacco type: cigarettes Second hand tobacco smoke exposure: No Smoking end date: 03/16/93 Alcohol intake: never Substance use: never Lack of Transportation: No Lack of Food: Never True Current Housing: I Have Housing Concerned About Future Housing: No Difficulty Paying Gas/Electric Bills: No Difficulty Paying for Meds: No Currently Unemployed: No Education: High School Diploma/GED Difficulty w/ Childcare or Family Care: No Living arrangements: alone Additional living arrangements comments: , lives in [place]. 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 Spiritual care concerns: No Agree to blood products: Yes Exam Narrative: GENERAL: Well-appearing, well-nourished, and in no acute distress. HEAD: Normocephalic, atraumatic. EYES: PERRLA and EOMI. ENT: Nares clear, no rhinorrhea or epistaxis. Mucous membranes moist. NECK: Supple. CHEST: Clear to auscultation. No respiratory distress. HEART: Regular rate and rhythm. No murmur heard. Normal peripheral pulses. ABDOMEN: Soft, nontender, nondistended, normal active bowel sounds. EXTREMITIES: Normal range of motion. No edema. SKIN: Warm, dry, no rash. NEURO: No focal deficits. Alert and oriented x3. PSYCH: Normal mood and affect. Course Course Emergency Course: Patient is alert awake answers all the questions informed about the lab work her son is at the bedside and he does not not feel comfortable sending her to the assisted living facility will admit Vital Signs Vital signs: Vital Signs Temperature 36.5 C 02/26/25 09:02 Temperature 36.5 C 02/26/25 09:02 Pulse Rate 87 02/26/25 11:32 Respiratory Rate 17 02/26/25 11:32 Blood Pressure 148/62 H 02/26/25 11:32 Pulse Oximetry 97 02/26/25 11:32 Oxygen Delivery Room Air 02/26/25 09:20 MDM MDM Narrative Medical decision making narrative: 79-year-old with a history of ESRD on hemodialysis here with a complains of confusion, hallucination exam is unremarkable in a home a obtain lab work, EKG do not think CT is indicated patient has these episodes for quite frequently. Could be metabolic encephalopathy. Differential Diagnosis Differential Diagnosis: Metabolic encephalopathy, CVA, electrolyte imbalance UTI Lab Data 02/26/25 09:19 02/26/25 09:19 Labs: Lab Results 02/26/25 02/26/25 Range/Units 09:19 09:53 WBC 10.0 (4.5-10.0) K/mm3 RBC 3.80 L (4.2-5.4) M/mm3 Hgb 11.4 L (12.0-15.0) g/dL Hct 36.0 L (37.0-47.0) % MCV 94.7 (80-100) fl MCH 30.0 (26-34) pg MCHC 31.7 L (32-36) g/dl RDW 15.1 H (11.5-14.5) % Plt Count 333 (150-375) k/mm3 MPV 8.3 (7.4-10.4) fl Immature Gran % (Auto) 1.5 H (0-0.5) % Neut % (Auto) 71.8 (45.5-73.1) % Lymph % (Auto) 14.3 L (18.3-44.2) % [place] % (Auto) 8.8 H (2.6-8.5) % Eos % (Auto) 3.1 (0-4.4) % Baso % (Auto) 0.5 (0.2-1.2) % Lymph # (Auto) 1.43 (0.9-3.2) K/mm3 [place] # (Auto) 0.9 H (0.1-0.6) K/mm3 Eos # (Auto) 0.3 (0-0.3) K/mm3 Baso # (Auto) 0.1 (0.0-0.1) K/mm3 Abs Immat Gran (auto) 0.15 H (0.00-0.031) K/mm3 Absolute Neuts (auto) 7.2 H (1.3-6.7) K/mm3 Absolute Nucleated RBC 0.000 (0.0-0.012) K/mm3 Nucleated RBC % 0.0 (0.0-0.2) % PT 14.4 (11.1-14.7) Seconds INR 1.1 APTT 24.8 (22.3-36.8) Seconds Sodium 141 (137-145) mmol/L Potassium 3.6 (3.4-5.0) mmol/L Chloride 99 (98-107) mmol/L Carbon Dioxide 33 H (22-30) mmol/L Anion Gap 9 (4-12) mmol/L BUN 28 H (7-17) mg/dL Creatinine 6.32 H (0.7-1.0) mg/dL Estim Creat Clear Calc 7 ml/min Estimated GFR 6 L (59 - ) Glucose 110 (65-110) mg/dL Calcium 9.6 (8.4-10.2) mg/dL Total Bilirubin 0.7 (0.2-1.3) mg/dL AST 21 (14-36) U/L ALT 18 (6-35) U/L Alkaline Phosphatase 98 (38-126) U/L Total Protein 6.9 (6.3-8.2) g/dL Albumin 3.9 (3.5-5.1) g/dL Urine Color Yellow (Yellow) Urine Appearance Turbid H (Clear) Urine pH 8.5 (5.0-9.0) Ur Specific [place] 1.013 (1.001-1.035) Urine Protein 3+ H (Negative) mg/dL Urine Glucose (UA) 1+ H (Negative) mg/dL Urine Ketones Negative (Negative) mg/dL Ur Blood (Man) 1+ H (Negative) Urine Nitrate Negative (Negative) Urine Bilirubin Negative (Negative) Urine Urobilinogen 0.2 (<2.0) mg/dL Add Ur Microanalysis Reviewed Leukocyte Esterase Rfl 3+ H (Negative) AMY/UL Urine RBC 11-20 H (0-2) /hpf Urine WBC >100 H (0-3) /hpf Ur Squamous Epith Cells Many H (Few) /hpf Urine Bacteria 2+ H /hpf Urine Casts >20 ECG Data EKG #1: ECG completion date: 02/26/25 ECG completion time: 09:10 normal rate (90), atrial fibrillation, no ectopy, non-specific ST changes, no ST changes, normal QT and no acute changes Discharge Plan Discharge Clinical Impression: Altered mental status Qualifiers: Altered mental status type: unspecified Qualified Code(s): R41.82 - Altered mental status, unspecified Patient Disposition: Still a Patient Condition: Stable Patient Language: Thai Prescriptions: No Action dicyclomine 20 mg tablet 20 mg PO TID Qty: 90 5RF Cholestyramine Light 4 gram powder 4 g PO TID Qty: 239.4 5RF Rx Instructions: administer w/meal; avoid other meds within 1hr before or 4-6hr after dose budesonide 9 mg tablet,delayed and ext.release 9 mg PO DAILY Qty: 30 1RF diclofenac sodium [Arthritis Pain (diclofenac)] 1 % gel 2 g topical QID Qty: 50 2RF Rx Instructions: Apply to bilateral feet daily as needed escitalopram oxalate 10 mg tablet 10 mg PO DAILY Qty: 30 5RF acetaminophen 325 mg capsule 650 mg PO QID PRN (Reason: pain) bisacodyl 10 mg suppository 10 mg RECTAL DAILY PRN (Reason: constipation) ergocalciferol (vitamin D2) 1,250 mcg (50,000 unit) capsule 1,250 mcg PO WEEKLY Patient Comments: On Wednesdays loperamide 2 mg tablet 2 mg PO QID PRN (Reason: loose stool) Qty: 20 0RF acyclovir 400 mg tablet 400 mg PO TID 7 Days Qty: 21 0RF cyclobenzaprine 5 mg tablet 5 mg PO TID PRN (Reason: muscle spasm) Qty: 10 0RF magnesium citrate [Citrate of Magnesia] Solution 296 ml PO DAILY PRN (Reason: constipation) magnesium hydroxide [Bo Milk of Magnesia] 400 mg/5 mL suspension 30 ml PO DAILY PRN (Reason: constipation) cholestyramine-aspartame [Cholestyramine Light] 4 gram powder in packet 1 ea PO TID hydrocodone-acetaminophen 5-325 mg tablet 1 tablet PO Q6H PRN (Reason: pain) Qty: 14 0RF fluconazole 100 mg tablet 100 mg PO .Q72HR 9 Days Qty: 3 0RF levofloxacin 500 mg tablet 500 mg PO .q48hr 7 Days Qty: 3 0RF ketoconazole 2 % cream 1 applic topical BID Qty: 30 0RF Rx Instructions: apply to affected area twice daily atorvastatin 40 mg tablet 40 mg PO DAILY Qty: 90 2RF bupropion HCl 150 mg tablet extended release 24 hr 150 mg PO QAM Qty: 90 1RF diclofenac sodium [Voltaren Arthritis Pain] 1 % gel 2 g topical BID PRN (Reason: knee pain) Qty: 200 5RF Rx Instructions: apply to single elbow, wrist or hand; for hand includes palm/fingers/back of hand levetiracetam 500 mg tablet 500 mg PO Q12H Qty: 180 1RF mirtazapine 30 mg tablet 30 mg PO QHS Qty: 90 1RF pantoprazole 40 mg tablet,delayed release (DR/EC) 40 mg PO QAM Qty: 90 1RF clobetasol 0.05 % cream See Rx Instructions .ROUTE .COMPLEX Qty: 30 0RF Dose Instruction: APPLY TO AFFECTED AREAS TWICE DAILY Rx Instructions: APPLY TO AFFECTED AREAS TWICE DAILY buspirone 5 mg tablet 5 mg PO TID ropinirole 1 mg tablet 1 mg PO BID Qty: 180 1RF loperamide 2 mg tablet 4 mg PO QID PRN (Reason: loose stool) Qty: 100 5RF hydrocodone-acetaminophen 5-325 mg tablet 1 tablet PO QID PRN (Reason: pain) Qty: 120 0RF Follow-up/Referrals: Justen Singer MD [Primary Care Provider, Family Practice] Time of Disposition: 12:36
--- NOTE | 2025-02-26 13:53 | WPCEDHO ---
ED Hand Off Checklist All vitals saved: Y IV Site documented: Y All med administrations documented: Y Triage Note Triage Note Pt to ED via EMS from [facility] 02/26/25 09:02 /o AMS per staff. Staff reported she was in the halls naked not making sense. Ems reports upon their arrival pt a&ox4 and dressed. Pt is a&ox4 upon arrival to ED. Pt does receive dialysis MWF. Pt denies complaints currently. Allergies cortisone Allergy (Intermediate, Verified 02/26/25 09:15) Dyspnea / SOB Penicillins Allergy (Intermediate, Verified 02/26/25 09:15) Dyspnea / SOB PER CODED ALLERGIES ceftriaxone (From Rocephin) Allergy (Verified 02/26/25 09:15) Difficulty Breathing Family History (Last Reviewed 02/22/25 @ 18:13 by Saritha Smallwood, VP SOFTWARE SUPPORT) Father Renal cell carcinoma Acute myocardial infarction Cerebrovascular accident Colon polyp Heart disease Hypertension Mother Lung cancer Acute myocardial infarction Cerebrovascular accident Depression Heart disease Hypertension Son Asthma Interventions/Assessments Cardiac Monitoring Start: 02/26/25 08:58 Freq: Status: Active Protocol: Document 02/26/25 09:15 MLI (Rec: 02/26/25 09:15 MLI [id number]) Kiln Placer Assessment Kiln Placer Yes Applied Pulse Rate (60-100 87 beats/min) IV / Saline Lock, Insert Start: 02/26/25 09:12 Freq: STAT Status: Active Protocol: Document 02/26/25 09:20 MLI (Rec: 02/26/25 09:21 MLI [id number]) IV Assessment Peripheral Access Right Antecubital IV Catheter Access Initiated IV Insertion Date 02/26/25 IV Insertion Time 09:21 Catheter Gauge 18 IV Insertion 1 Attempts Ultrasound Used for No Placement IV Site Assessment WNL IV Care and WNL Maintenance PA: Cardiovascular Assessment Start: 02/26/25 08:58 Freq: Status: Active Protocol: Document 02/26/25 09:20 MLI (Rec: 02/26/25 09:21 MLI [id number]) Cardiovascular Assessment Cardiovascular None Symptoms Skin Description Normal Color Jugular Vein None Distention PA: Neurological Assessment Start: 02/26/25 08:58 Freq: Status: Active Protocol: Document 02/26/25 09:15 MLI (Rec: 02/26/25 09:16 MLI [id number]) Neurological Assessment Level of Alert,Awake Consciousness Arousable to Verbal Orientation Oriented to Person,Oriented to Place,Oriented to Time Neurological Weakness, General Symptoms Behavior Appropriate,Cooperative Patient Able to Comprehend Comprehension Memory Description Intact PA: Respiratory Assessment Start: 02/26/25 08:58 Freq: Status: Active Protocol: Document 02/26/25 09:20 MLI (Rec: 02/26/25 09:21 MLI [id number]) Respiratory Assessment Symptoms None Effort Normal Pattern Regular Depth Normal Chest Expansion Symmetrical Adult Capillary Normal/Less than 2 Seconds Refill Oxygen Delivery Oxygen Delivery Room Air Last Vital Signs Temperature 97.7 F 02/26/25 09:02 Pulse Rate 113 H 02/26/25 13:15 Respiratory Rate 15 02/26/25 13:15 Pulse Oximetry 98 02/26/25 13:15 Blood Pressure 148/62 H 02/26/25 13:15 Blood Pressure Mean 90 02/26/25 13:15 Blood Pressure Position Supine 02/26/25 09:14 Oxygen Delivery Room Air 02/26/25 09:20 Weight 81.4 kg 02/26/25 09:02 Last Result - Abnormals Only RBC 3.80 M/mm3 (4.2-5.4) L 02/26/25 09:19 Hgb 11.4 g/dL (12.0-15.0) L 02/26/25 09:19 Hct 36.0 % (37.0-47.0) L 02/26/25 09:19 MCHC 31.7 g/dl (32-36) L 02/26/25 09:19 RDW 15.1 % (11.5-14.5) H 02/26/25 09:19 Immature Gran % (Auto) 1.5 % (0-0.5) H 02/26/25 09:19 Lymph % (Auto) 14.3 % (18.3-44.2) L 02/26/25 09:19 [place] % (Auto) 8.8 % (2.6-8.5) H 02/26/25 09:19 [place] # (Auto) 0.9 K/mm3 (0.1-0.6) H 02/26/25 09:19 Abs Immat Gran (auto) 0.15 K/mm3 (0.00-0.031) H 02/26/25 09:19 Absolute Neuts (auto) 7.2 K/mm3 (1.3-6.7) H 02/26/25 09:19 Carbon Dioxide 33 mmol/L (22-30) H 02/26/25 09:19 BUN 28 mg/dL (7-17) H 02/26/25 09:19 Creatinine 6.32 mg/dL (0.7-1.0) H 02/26/25 09:19 Estimated GFR 6 (59-) L 02/26/25 09:19 Urine Appearance Turbid (Clear) H 02/26/25 09:53 Urine Protein 3+ mg/dL (Negative) H 02/26/25 09:53 Urine Glucose (UA) 1+ mg/dL (Negative) H 02/26/25 09:53 Ur Blood (Man) 1+ (Negative) H 02/26/25 09:53 Leukocyte Esterase Rfl 3+ AMY/UL (Negative) H 02/26/25 09:53 Urine RBC 11-20 /hpf (0-2) H 02/26/25 09:53 Urine WBC >100 /hpf (0-3) H 02/26/25 09:53 Ur Squamous Epith Cells Many /hpf (Few) H 02/26/25 09:53 Urine Bacteria 2+ /hpf H 02/26/25 09:53 Most Recent Suicide Severity Rating Suicide Severity Rating NO RISK INDICATED 02/26/25 09:02
--- NOTE | 2025-02-26 15:13 | P.HP_ITS ---
H&P: HPI History of Present Illness Date/Time: 02/26/25 15:13 Chief Complaint: Altered mental status Narrative: 79-year-old female past medical history of systolic heart function, diabetes, end-stage renal disease on dialysis, COPD brought in from a [facility] with altered mental status. Per patient she states that she has been having visual hallucinations and that her son thinks she is crazy. She states that they have been going on for a day or 2. She states that she was 1 around her facility make add in a cafeteria and was extremely embarrassing and at so she was brought to the hospital. Patient denies nausea of vomiting fever chills. She has chronic loose stools from colitis. WBC 10.0, hemoglobin 11.4, INR 1.1, sodium 141, carbon dioxide 33, BUN 28, creatinine 6.3 to, GFR 6 which is round baseline. UA shows turbid with negative nitrates 3+ leukocyte esterase over 100 wbc's and many epithelial cells and 2+ bacteria. Head CT shows no acute findings Review of Systems Review of Systems: 12 systems were reviewed and are negativ e except for as per HPI. [facility] Past Medical History Medical History Metatarsal fracture, pathologic Peroneal tendinitis of both lower legs Pubic ramus fracture Diastolic dysfunction Echocardiogram October 2022: EF greater than 70% mildly increased left ventricular wall thickness, grade 1 diastolic dysfunction, patent foramen ovale visualized on agitated saline mild mitral valve regurgitation, mild tricuspid valve regurgitation mild pulmonary hypertension with RVSP of 37 Peripheral autonomic neuropathy due to diabetes mellitus Osteomyelitis of toe of left foot COVID-19 virus infection Renal osteodystrophy Erythropoietin deficiency anemia End-stage renal disease on hemodialysis Thursday Normal colonoscopy (08/2019) Shingles (1991) Gastroesophageal reflux disease Restless leg syndrome Renal cell carcinoma (2004) Obstructive sleep apnea No longer using CPAP after 40 lb weight loss. Coronary artery disease History of stent x3. Anemia of chronic disease Pericardial effusion (01/2020) Small pericardial effusion on echocardiogram, felt to be related to uremia. Peripheral vascular disease Crohn's disease History of kidney stones Peritonitis (01/2020) Surgical History Surgical History Amputation toe Left 2nd toe. History of complete ray amputation of second toe of left foot History of complete ray amputation of second toe of right foot History of cholecystectomy History of appendectomy History of foot surgery Repair of left foot fracture with pinning. History of partial nephrectomy (2004) Left partial nephrectomy for kidney cancer. History of tonsillectomy History of bilateral carpal tunnel release History of hysterectomy (1976) With cystocele and rectocele repairs. History of cardiac catheterization With stent x3. History of cystoscopy With ureteral stents for kidney stones. History of colonoscopy Family History Family History Father Renal cell carcinoma Acute myocardial infarction Cerebrovascular accident Colon polyp Heart disease Hypertension Mother Lung cancer Acute myocardial infarction Cerebrovascular accident Depression Heart disease Hypertension Son Asthma Social History Social History Social History: Patient is retired. 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 She had 1 son who at 50 years old heart attack. She has a 2nd son who is still living and he was her surrogate decision maker. To smoke 1 pack of cigarettes per day for about 30 years. She quit smoking in 1995. She denies any alcohol use or illicit substance use. She is living in [facility]. Surrogate medical decision maker: Dong Maher, son. Code status: DNR/DNI Smoking packs per day: 0.5 Smoking cigarettes per day: 10.0 Years smoked: 10 Smoking pack-years: 5.00 Smoking status: Former smoker Second hand tobacco smoke exposure: No Alcohol intake: never Substance use: never Lack of Transportation: No Lack of Food: Never True Current Housing: I Have Housing Concerned About Future Housing: No Difficulty Paying Gas/Electric Bills: No Difficulty Paying for Meds: No Currently Unemployed: No Education: High School Diploma/GED Difficulty w/ Childcare or Family Care: No Living arrangements: alone Additional living arrangements comments: , lives in [place]. 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 Spiritual care concerns: No Agree to blood products: Yes Meds Home Medications and Allergies Home Medications ?Medication ?Instructions ?Recorded ?Confirmed ?Type atorvastatin 40 mg tablet 40 mg PO DAILY #90 tabs 02/1402/26/25 Rx bupropion HCl 150 mg 24 hr tablet, 150 mg PO QAM #90 t abs 03/11/23 02/26/25 Rx extended release diclofenac sodium 1 % topical gel 2 g topical BID PRN knee pain #200 03/11/23 02/26/25 Rx (Voltaren Arthritis Pain) grams levetiracetam 500 mg tablet 500 mg PO Q12H #180 tabs 1 05/12/22 02/26/25 Rx mirtazapine 30 mg tablet 30 mg PO QHS #90 tabs 02/26/25 Rx pantoprazole 40 mg tablet,delayed 40 mg PO QAM #90 tab s 03/11/23 02/26/25 Rx release cyclobenzaprine 5 mg tablet 5 mg PO TID PRN muscle spa sm #10 06/03/23 02/26/25 Rx tabs escitalopram oxalate 10 mg tablet 10 mg PO DAILY #30 t abs 06/17/23 02/26/25 Rx dicyclomine 20 mg tablet 20 mg PO TID #90 tabs 01/17/25 Rx Held on 10/14/24. Instructions: Patient Condition acetaminophen 325 mg capsule 650 mg PO QID PRN pain 02/26/25 History ergocalciferol (vitamin D2) 1,250 1,250 mcg PO WEEKLY 03/11/24 02/26/25 History mcg (50,000 unit) capsule buspirone 5 mg tablet 5 mg PO TID 07/13/24 5 History hydrocodone 5 mg-acetaminophen 325 1 tablet PO Q6H PRN pain #14 tabs 08/04/24 02/26/25 Rx mg tablet budesonide 9 mg tablet,delayed and 9 mg PO DAILY #30 e a 08/25/24 02/26/25 Rx extended release ropinirole 1 mg tablet 1 mg PO BID #180 tabs 02/26/25 Rx diclofenac sodium 1 % topical gel 2 g topical QID #50 grams 01/17/25 02/26/25 Rx (Arthritis Pain (diclofenac)) acyclovir 400 mg tablet 400 mg PO TID 7 days #21 tab s 02/22/25 02/26/25 Rx Allergies Allergy/AdvReac Type Severity Reaction Status Date / Time cortisone Allergy Intermediate Dyspnea / Verified 02/26/25 09:15 SOB Penicillins Allergy Intermediate Dyspnea / Verified 02/26/25 09:15 SOB ceftriaxone (From Rocephin) Allergy Difficulty Verified 02/26/25 09:15 Breathing Vital Signs Vital Signs - 24 hr 02/26/25 09:02 02/26/25 09:14 02/26/25 09:15 Temperature 97.7 F Pulse Rate 88 87 Respiratory Rate 13 Blood Pressure 131/54 L Pulse Oximetry 98 Oxygen Delivery 02/26/25 09:20 02/26/25 10:19 02/26/25 11:32 Temperature Pulse Rate 81 87 Respiratory Rate 14 17 Blood Pressure 126/61 148/62 H Pulse Oximetry 94 97 Oxygen Delivery Room Air 02/26/25 13:15 02/26/25 14:23 Temperature 97.1 F L Pulse Rate 113 H 85 Respiratory Rate 15 16 Blood Pressure 148/62 H 143/58 H Pulse Oximetry 98 97 Oxygen Delivery Exam Narrative: General: well appearing, appears stated age. HEENT: normocephalic, atraumatic. Mucous membranes moist. EOMI, PERRLA, bilateral sclera anicteric, no conjunctival injection. Neck supple without JVD, lymphadenopathy, or bruit. Respiratory: clear bilaterally. No rales/rhonic/wheezes. Cardiovascular: Regular rate and rhythm, normal S1-S2. No murmurs, rubs, or clicks. PMI is nondisplaced, capillary refill less than 3 second. Abdomen: Soft, round, no pulsatile masses, nondistended and nontender. No rebound, no guarding. Bowel sounds present to all four quadrants. No high pitch or tinkling sounds, resonant to percussion. Extremities: No cyanosis, clubbing, or edema present. Pulses are palpable 2/2. Active ROM to all four extremities. Left AV fistula positive bruit and thrill Neuro: Alert and orientated x 4. PERRLA. Cranial nerves 2-12 intact without focal deficit. Skin: Warm, dry, and intact, without rash, erythema, or lesion. Psych: pleasant, cooperative, normal speech, normal affect, no hallucinations, no dysarthia Results Labs Labs: Short CBC 02/26/25 Range/Units 09:19 WBC 10.0 (4.5-10.0) K/mm3 Hgb 11.4 L (12.0-15.0) g/dL Hct 36.0 L (37.0-47.0) % Plt Count 333 (150-375) k/mm3 BMP 02/26/25 09:19 Sodium 141 Potassium 3.6 Chloride 99 Carbon Dioxide 33 H BUN 28 H Creatinine 6.32 H Glucose 110 Calcium 9.6 Liver Function 02/26/25 Range/Units 09:19 Total Bilirubin 0.7 (0.2-1.3) mg/dL AST 21 (14-36) U/L ALT 18 (6-35) U/L Alkaline Phosphatase 98 (38-126) U/L Albumin 3.9 (3.5-5.1) g/dL Urine 02/26/25 Range/Units 09:53 Urine Color Yellow (Yellow) Urine Appearance Turbid H (Clear) Urine pH 8.5 (5.0-9.0) Ur Specific [place] 1.013 (1.001-1.035) Urine Protein 3+ H (Negative) mg/dL Urine Glucose (UA) 1+ H (Negative) mg/dL Quality VTE Prophylaxis VTE prophylaxis: mechanical ordered Assessment and Plan Assessment and plan (1) Altered mental status: Qualifiers: Altered mental status type: unspecified Qualified Code(s): R41.82 - Altered mental status, unspecified Code(s): R41.82 - Altered mental status, unspecified Status: Acute Assessment and Plan: Visual hallucinations CT head with no acute findings Possible UTI Monitor electrolytes (2) UTI (urinary tract infection): Code(s): N39.0 - Urinary tract infection, site not specified Status: Acute Assessment and Plan: Possible UTI Due to no other signs causing visual hallucinations or confusion at this time will start antibiotics Culture and sensitivity pending IV Levaquin (3) CHF (congestive heart failure): Code(s): I50.9 - Heart failure, unspecified Status: Acute Assessment and Plan: Chest x-ray pending Managed through dialysis (4) Type 2 diabetes mellitus with diabetic chronic kidney disease: Qualifiers: Diabetes mellitus predatory animal exterminator insulin use: without predatory animal exterminator use Chronic kidney disease stage: on chronic dialysis Qualified Code(s): E11.22 - Type 2 diabetes mellitus with diabetic chronic kidney disease; N18.6 - End stage renal disease; Z99.2 - Dependence on renal dialysis Code(s): E11.22 - Type 2 diabetes mellitus with diabetic chronic kidney disease Status: Acute Assessment and Plan: Lily BLAKELY SSI Not on home medications (5) End-stage renal disease on hemodialysis: Code(s): N18.6 - End stage renal disease; Z99.2 - Dependence on renal dialysis Status: Acute Assessment and Plan: Nephrology consulted Renal diet (6) Seizure: Code(s): R56.9 - Unspecified convulsions Status: Acute Assessment and Plan: Continue home Keppra Prior Studies I have reviewed the following patient records and this information was taken into consideration when formulating the assessment and plan.: previous labs and previous ER visits Time Spent with Patient Time with patient: less than 45 minutes Hospitalist MIPS Advance Care Plan I have confirmed that the patient's Advanced Care Plan is present, code status is documented, or surrogate decision maker is listed in patient medical record.: Yes Medication Reconciliation I have utilized all available resources to obtain, update and review the patients current medications (includes all prescriptions, OTC, herbals, cannabis, and nutritional supplements).: Yes
--- NOTE | 2025-02-26 17:14 | WNDPHOTO ---
PHOTO ONLY - See Nursing Notes and/ or assessments for documentation.
--- NOTE | 2025-02-26 17:52 | WNDPHOTO ---
PHOTO ONLY - See Nursing Notes and/ or assessments for documentation.
--- NOTE | 2025-02-26 17:53 | WNDPHOTO ---
PHOTO ONLY - See Nursing Notes and/ or assessments for documentation.
--- NOTE | 2025-02-26 17:53 | WNDPHOTO ---
PHOTO ONLY - See Nursing Notes and/ or assessments for documentation.
[2025-02-26] MEDS: ACETAMINOPHEN 325 MG TABLET 650 MG PO (18:08)
[2025-02-26] MEDS: MIRTAZAPINE 30 MG TABLET PO (20:21)
[2025-02-26] MEDS: levoFLOXacin 500 MG/D5W 100 ML 500 MG/100 ML BAG 100 MG IVPB (23:12)
[2025-02-27] VITALS (26 sets, daily range): BP systolic 97–150; BP diastolic 46–103; PULSE 63–121; RESP 16–18; TEMP 36.6–37.2; O2SAT 95–99; BMI 30.6
[2025-02-27] MEDS: HYDROcodone/acetaminophen (*CRX) 5-325 MG TABLET 1 TAB PO ×3 (00:18→21:26)
[2025-02-27 05:00] LABS: Hematocrit 30.3 % (37.0-47.0); Hemoglobin 9.0 g/dL (12.0-15.0); Immature Granulocyte Percent A 1.2 % (0-0.5); Lymphocytes Absolute Auto 1.49 K/mm3 (0.9-3.2); Mean Corpuscular HGB Conc 29.7 g/dl (32-36); Mean Corpuscular Hemoglobin 29.8 pg (26-34); Mean Corpuscular Volume 100.3 fl (80-100); Nucleated Red Blood Cells Absolute Auto 0.000 K/mm3 (0.0-0.012); Nucleated Red Blood Cells Perc 0.0 % (0.0-0.2); Platelet Count Result 290 k/mm3 (150-375); Red Blood Count 3.02 M/mm3 (4.2-5.4); White Blood Count 8.9 K/mm3 (4.5-10.0)
[2025-02-27] MEDS: CYCLOBENZAPRINE HCL 5 MG TABLET PO (05:25)
[2025-02-27 05:58] LABS: Alanine Aminotransferase 13 U/L (6-35); Albumin Level 3.1 g/dL (3.5-5.1); Alkaline Phosphatase 78 U/L (38-126); Anion Gap 7 mmol/L (4-12); Aspartate Amino Transferase 18 U/L (14-36); Bilirubin,Total 0.5 mg/dL (0.2-1.3); Blood Urea Nitrogen 35 mg/dL (7-17); Calcium 8.7 mg/dL (8.4-10.2); Carbon Dioxide 30 mmol/L (22-30); Chloride 102 mmol/L (98-107); Estimated CRCL calculation 6 ml/min; Estimated Glomerular Filt Rate 5; Glucose 81 mg/dL (65-110); Magnesium 2.1 mg/dL (1.6-2.3); Potassium 4.0 mmol/L (3.4-5.0); Sodium 139 mmol/L (137-145); Total Protein 5.7 g/dL (6.3-8.2)
[2025-02-27 06:42] LABS: Hepatitis B Surface Antigen Negative (Negative)
--- NOTE | 2025-02-27 06:56 | P.PNIM_ITS ---
Assessment and Plan Assessment and Plan (1) Altered mental status: Qualifiers: Altered mental status type: unspecified Qualified Code(s): R41.82 - Altered mental status, unspecified Code(s): R41.82 - Altered mental status, unspecified Status: Acute Assessment and Plan: - presented with visual hallucinations - CT head no acute process - may be secondary to UTI, management as below - patient recently started on acyclovir which is known to cause confusion especially in patients with renal failure - hold - monitor mental status (2) UTI (urinary tract infection): Code(s): N39.0 - Urinary tract infection, site not specified Status: Acute Assessment and Plan: - UA with1+ blood, 3+ LE >100 WBC, many squamous - afebrile, no leukocytosis - continue IV Levaquin (PCN and cephalosporin allergy) - urine culture pending (3) End-stage renal disease on hemodialysis: Code(s): N18.6 - End stage renal disease; Z99.2 - Dependence on renal dialysis Status: Acute Assessment and Plan: - on dialysis - nephrology consulted, appreciate assistance (4) CHF (congestive heart failure): Code(s): I50.9 - Heart failure, unspecified Status: Acute Assessment and Plan: Chest x-ray pending Managed through dialysis (5) Type 2 diabetes mellitus with diabetic chronic kidney disease: Qualifiers: Chronic kidney disease stage: on chronic dialysis Diabetes mellitus prison insulin use: without termite technician use Qualified Code(s): E11.22 - Type 2 diabetes mellitus with diabetic chronic kidney disease; N18.6 - End stage renal disease; Z99.2 - Dependence on renal dialysis Code(s): E11.22 - Type 2 diabetes mellitus with diabetic chronic kidney disease Status: Acute Assessment and Plan: Lily YANEZ Not on home medications (6) Seizure: Code(s): R56.9 - Unspecified convulsions Status: Chronic Assessment and Plan: -Continue home Keppra (7) Anemia: Code(s): D64.9 - Anemia, unspecified Status: Acute Assessment and Plan: - Hgb 9.0. Has anemia of chronic disease - monitor CBC (8) Pressure ulcer: Code(s): L89.90 - Pressure ulcer of unspecified site, unspecified stage Status: Acute Assessment and Plan: - stage III ulcer, consistent with pressure. HSV testing negative. - wound care following Plan DVT prophylaxis: heparin subQ Code status: full code Dispo: back to nursing facility Medical Record Review I have reviewed the following patient records and this information was taken into consideration when formulating the assessment and plan.: previous labs Subjective Date/time seen: 02/27/25 06:56 Interval history: Patient seen and examined at bedside. Alert and oriented to self, place, time, not to situation. Patient states hallucinations have resolved. district engineer at bedside - sore on ischium appears pressure related, not HSV. Patient denies specific urinary symptoms, but does not make much urine. Does report not feeling well. Review of Systems Review of Systems: All systems reviewed & are unremarkable except as noted in HPI and below Exam Narrative: General: NAD Eyes: EOMI ENT: neck supple Cardiovascular: Regular rate and rhythm Respiratory: Clear to auscultation, respirations even and unlabored on RA Gastrointestinal: Soft, non tender Genitourinary: no suprapubic tenderness Musculoskeletal: No edema Skin: warm, dry Neuro: Alert and oriented to self, place, time, not to situation. Face symmetric, speech clear. Psych: Mood appropriate Objective Data Vital Signs Vital Signs: Vital Signs - 24 hr 02/26/25 09:02 02/26/25 09:14 02/26/25 09:15 Temperature 97.7 F Pulse Rate 88 87 Respiratory Rate 13 Blood Pressure 131/54 L Pulse Oximetry 98 Oxygen Delivery 02/26/25 09:20 02/26/25 10:19 02/26/25 11:32 Temperature Pulse Rate 81 87 Respiratory Rate 14 17 Blood Pressure 126/61 148/62 H Pulse Oximetry 94 97 Oxygen Delivery Room Air 02/26/25 13:15 02/26/25 14:23 02/26/25 16:00 Temperature 97.1 F L Pulse Rate 113 H 85 79 Respiratory Rate 15 16 Blood Pressure 148/62 H 143/58 H Pulse Oximetry 98 97 Oxygen Delivery 02/26/25 20:00 02/26/25 20:00 02/26/25 21:21 Temperature Pulse Rate 111 H Respiratory Rate Blood Pressure Pulse Oximetry 95 Oxygen Delivery Room Air Room Air 02/26/25 22:00 02/27/25 00:00 02/27/25 04:00 Temperature 97.9 F Pulse Rate 100 82 71 Respiratory Rate 16 Blood Pressure 131/50 L Pulse Oximetry 95 Oxygen Delivery 02/27/25 06:00 Temperature 98.2 F Pulse Rate 95 Respiratory Rate 18 Blood Pressure 147/70 H Pulse Oximetry 97 Oxygen Delivery Intake/Output Intake/Output: Intake & Output 02/24/25 02/25/25 02/26/25 02/27/25 23:59 23:59 23:59 23:59 Intake Total 650 100 Output Total 0 0 Balance 650 100 Meds/Results Medications: Active Medications Generic Name Dose Route Start Last Admin Trade Name Freq PRN Reason Stop Dose Admin Acetaminophen 650 mg 02/26/25 12:20 02/26/25 18:08 Acetaminophen 325 Mg Tablet PO 650 mg Q4H PRN Administration Mild Pain (1-3) or Fever Hydrocodone Bitart/Acetaminophen 1 tab 02/26/25 19:56 02/27/25 00:18 Hydrocodone/Acetaminophen (*Crx) 5-325 Mg Tablet PO 1 tab Q6H PRN Administration Pain 4-6 Acyclovir 400 mg 02/27/25 09:00 Acyclovir 400 Mg Tablet PO 03/02/25 19:00 TID SUKI Atorvastatin Calcium 40 mg 02/27/25 09:00 Atorvastatin 40 Mg Tablet PO DAILY SUKI Bupropion HCl 150 mg 02/27/25 09:00 Bupropion Hcl Xl (24 Hr) 150 Mg Tabcr PO QAM SUKI Buspirone HCl 5 mg 02/27/25 09:00 Buspirone Hcl 5 Mg Tablet PO TID SUKI Cyclobenzaprine HCl 5 mg 02/26/25 19:56 02/27/25 05:25 Cyclobenzaprine Hcl 5 Mg Tablet PO 5 mg TID PRN Administration Muscle Spasm Dextrose 12.5 gm 02/26/25 21:48 Dextrose 50% 25 Gm/50 Ml Syringe IV PUSH PRN PRN Hypoglycemia Protocol Docusate Sodium 100 mg 02/26/25 17:00 02/26/25 18:09 Docusate Sodium 100 Mg Capsule PO Not Given BID SUKI Epoetin Kelechi-epbx 10,000 units 02/27/25 18:00 Epoetin Kelechi-Epbx 10,000 Units/Ml Vial IV PUSH 02/27/25 18:01 ONCE ONE Escitalopram Oxalate 10 mg 02/27/25 09:00 Escitalopram Oxalate 10 Mg Tablet PO DAILY SUKI Glucagon 1 mg 02/26/25 21:48 Glucagon For Inj 1 Mg Vial IM PRN PRN Hypoglycemia Protocol Glucose 15 gm 02/26/25 21:48 Glucose Oral Gel 15 Gm Of Glucse In 37.5 Gm Tube PO PRN PRN Hypoglycemia Protocol Albumin Human 50 mls @ 999 mls/hr 02/26/25 20:12 Albutein IVPB 03/28/25 20:11 Q10M PRN HYPOTENSION Dextrose 1,000 mls @ 100 mls/hr 02/26/25 21:48 Dextrose 5% 1,000 Ml IVPB PRN PRN Hypoglycemia Protocol Levofloxacin/Dextrose 250 mg in 50 mls @ 50 mls/hr 02/27/25 22:00 Levaquin 250 Mg/D5w 50 Ml IVPB Q48H [facility] Insulin Aspart 2 - 5 units 02/27/25 08:00 Insulin Aspart (*Bkc) 100 Units/Ml SUB-Q TIDWM [facility] Protocol Levetiracetam 500 mg 02/26/25 20:00 02/26/25 20:21 Levetiracetam 500 Mg Tablet PO 500 mg Q12HR SUKI Administration Mirtazapine 30 mg 02/26/25 21:00 02/26/25 20:21 Mirtazapine 30 Mg Tablet PO 30 mg QHS SUKI Administration Ondansetron HCl 4 mg 02/26/25 12:20 Ondansetron Inj 4 Mg/2 Ml Vial IV PUSH Q4H PRN Nausea Pantoprazole Sodium 40 mg 02/27/25 09:00 Pantoprazole 40 Mg Tablet PO QAM SUKI Ropinirole HCl 1 mg 02/27/25 09:00 Ropinirole Hcl 1 Mg Tablet PO BID [facility] Radiology Results: ITS Impressions Head CT 12/14/25 14:42 Impression: 1.No acute intracranial abnormality. Labs Labs: Laboratory Results - last 24 hr 02/26/25 02/26/25 02/26/25 09:19 09:53 20:20 WBC 10.0 RBC 3.80 L Hgb 11.4 L Hct 36.0 L MCV 94.7 MCH 30.0 MCHC 31.7 L RDW 15.1 H Plt Count 333 MPV 8.3 Immature Gran % (Auto) 1.5 H Neut % (Auto) 71.8 Lymph % (Auto) 14.3 L Luce % (Auto) 8.8 H Eos % (Auto) 3.1 Baso % (Auto) 0.5 Lymph # (Auto) 1.43 Luce # (Auto) 0.9 H Eos # (Auto) 0.3 Baso # (Auto) 0.1 Abs Immat Gran (auto) 0.15 H Absolute Neuts (auto) 7.2 H Absolute Nucleated RBC 0.000 Nucleated RBC % 0.0 PT 14.4 INR 1.1 APTT 24.8 Sodium 141 Potassium 3.6 Chloride 99 Carbon Dioxide 33 H Anion Gap 9 BUN 28 H Creatinine 6.32 H Estim Creat Clear Calc 7 Estimated GFR 6 L Glucose 110 POC Capillary Glucose 177 H Calcium 9.6 Phosphorus Magnesium Total Bilirubin 0.7 AST 21 ALT 18 Alkaline Phosphatase 98 Total Protein 6.9 Albumin 3.9 Urine Color Yellow Urine Appearance Turbid H Urine pH 8.5 Ur Specific [place] 1.013 Urine Protein 3+ H Urine Glucose (UA) 1+ H Urine Ketones Negative Ur Blood (Man) 1+ H Urine Nitrate Negative Urine Bilirubin Negative Urine Urobilinogen 0.2 Add Ur Microanalysis Reviewed Leukocyte Esterase Rfl 3+ H Urine RBC 11-20 H Urine WBC >100 H Ur Squamous Epith Cells Many H Urine Bacteria 2+ H Urine Casts >20 Hep Bs Antigen 02/27/25 04:28 WBC 8.9 RBC 3.02 L Hgb 9.0 L Hct 30.3 L MCV 100.3 H D MCH 29.8 MCHC 29.7 L RDW 15.1 H Plt Count 290 MPV 9.0 Immature Gran % (Auto) 1.2 H Neut % (Auto) 69.8 Lymph % (Auto) 16.7 L Luce % (Auto) 9.1 H Eos % (Auto) 2.9 Baso % (Auto) 0.3 Lymph # (Auto) 1.49 Luce # (Auto) 0.8 H Eos # (Auto) 0.3 Baso # (Auto) 0.0 Abs Immat Gran (auto) 0.11 H Absolute Neuts (auto) 6.2 Absolute Nucleated RBC 0.000 Nucleated RBC % 0.0 PT INR APTT Sodium 139 Potassium 4.0 Chloride 102 Carbon Dioxide 30 Anion Gap 7 BUN 35 H Creatinine 7.29 H Estim Creat Clear Calc 6 Estimated GFR 5 L Glucose 81 POC Capillary Glucose Calcium 8.7 Phosphorus 5.5 H Magnesium 2.1 Total Bilirubin 0.5 AST 18 ALT 13 Alkaline Phosphatase 78 Total Protein 5.7 L Albumin 3.1 L Urine Color Urine Appearance Urine pH Ur Specific [place] Urine Protein Urine Glucose (UA) Urine Ketones Ur Blood (Man) Urine Nitrate Urine Bilirubin Urine Urobilinogen Add Ur Microanalysis Leukocyte Esterase Rfl Urine RBC Urine WBC Ur Squamous Epith Cells Urine Bacteria Urine Casts Hep Bs Antigen Negative
[2025-02-27 06:59] LABS: Hepatitis B Surface Anti Res Negative
[2025-02-27] MEDS: EPOETIN ALFA-EPBX 10,000 UNITS/ML VIAL 10000 UNITS IV PUSH (10:58)
--- NOTE | 2025-02-27 12:34 | P.CONNP_ITS ---
Assessment and Plan Assessment and plan (1) End stage renal disease: Code(s): N18.6 - End stage renal disease Status: Chronic Assessment and Plan: * HD today * continue M/W/F outpatient dialysis schedule * follow electrolytes, volume status, and clearance (2) Altered mental status: Qualifiers: Altered mental status type: unspecified Qualified Code(s): R41.82 - Altered mental status, unspecified Code(s): R41.82 - Altered mental status, unspecified Status: Acute Assessment and Plan: * as noted by visual hallucinations * head CT scan negative * secondary to infection (UTI) versus medication (acyclovir) versus other(?) * follow mentation (3) UTI (urinary tract infection): Code(s): N39.0 - Urinary tract infection, site not specified Status: Acute Assessment and Plan: * admission UA highly suggestive * follow-up on urine culture * on antibiotics (4) Hypertension: Code(s): I10 - Essential (primary) hypertension Status: Chronic Assessment and Plan: * reasonable control at this time * resume home medications * follow trend of hemodynamics (5) Anemia: Code(s): D64.9 - Anemia, unspecified Status: Deleted Assessment and Plan: * due to ESRD * Retacrit with dialysis * follow trend of H/H (6) Crohn's disease: Code(s): K50.90 - Crohn's disease, unspecified, without complications Status: Chronic Assessment and Plan: * chronic issue * loose stools/diarrhea at baseline * continue supportive therapy I will continue to follow the patient with you while she remains hospitalized and make further recommendations as deemed necessary. Thank you for allowing me to participate in the care of this patient. L History of Present Illness Reason for Consult Consult date: 02/27/25 Reason for consult: end stage renal disease Chief Complaint Chief complaint: AMS History of Present Illness Narrative: The patient is a 79-year-old female with a past medical history as outlined below who presented to [facility] Emergency Room with complaints of altered mental status. According to the patient and facility records, she has been having visual hallucinations for the last couple of days. As these visual hallucinations continues to occurred without a clear etiology, she was transferred to the ER for further assessment. She gave no other symptoms with regard to Fevers, chills, nausea, vomiting, hematochezia, melena, abdominal pain, dizziness, lightheadedness, palpitations, or syncope. She does admit to chronic loose stools secondary to her known history of inflammatory bowel disease. Workup and evaluation emergency room demonstrated the patient be hemodynamically stable and in no acute distress. Routine blood work was notable for an unremarkable CBC other than relative anemia consistent with her baseline hemoglobin and a chemistry panel that was consistent with her known history of end-stage renal disease without any critical electrolyte abnormalities. Her UA was highly suggestive of urinary tract infection with turbid appearance, 3+ leukocyte esterase, greater than 100 white blood cells, 2+ bacteria but negative nitrite. CT scan of her head demonstrated no acute clinical findings. Given her constellation of symptoms as mentioned in association with a possible urinary tract infection, appropriate cultures were obtained and she was started on antibiotics and subsequently admitted to the hospital for further evaluation therapy. Since her admission, she reports no further hallucinations but is having significant discomfort laying in bed due to an apparent right ischium pressure ulcer. Renal consultation was requested due to her end-stage renal disease. The patient normally dialyzes on a Thursday, Thursday, Thursday dialysis schedule at [facility] under the care of Dr. Jamshid Joe. From a dialysis perspective, she has been doing reasonably well and has been compliant with her treatments. She has relative stability in her electrolytes, volume status, clearance as noted by monthly labs. Her last outpatient dialysis treatment was Thursday (on 02/24/25). She is due for dialysis today. Currently, at the time of my visit, she is tolerating her dialysis treatment without any issue or problems (seen on HD at 12:20pm). Review of Systems 2 Review of Systems: As per HPI. [facility] Past Medical History Medical History Metatarsal fracture, pathologic Peroneal tendinitis of both lower legs Pubic ramus fracture Diastolic dysfunction Echocardiogram October 2022: EF greater than 70% mildly increased left ventricular wall thickness, grade 1 diastolic dysfunction, patent foramen ovale visualized on agitated saline mild mitral valve regurgitation, mild tricuspid valve regurgitation mild pulmonary hypertension with RVSP of 37 Peripheral autonomic neuropathy due to diabetes mellitus Osteomyelitis of toe of left foot COVID-19 virus infection Renal osteodystrophy Erythropoietin deficiency anemia End-stage renal disease on hemodialysis Thursday Normal colonoscopy (08/2019) Tushar (1991) Gastroesophageal reflux disease Restless leg syndrome Renal cell carcinoma (2004) Obstructive sleep apnea No longer using CPAP after 40 lb weight loss. Coronary artery disease History of stent x3. Anemia of chronic disease Pericardial effusion (01/2020) Small pericardial effusion on echocardiogram, felt to be related to uremia. Peripheral vascular disease Crohn's disease History of kidney stones Peritonitis (01/2020) Surgical History Surgical History Amputation toe Left 2nd toe. History of complete ray amputation of second toe of left foot History of complete ray amputation of second toe of right foot History of cholecystectomy History of appendectomy History of foot surgery Repair of left foot fracture with pinning. History of partial nephrectomy (2004) Left partial nephrectomy for kidney cancer. History of tonsillectomy History of bilateral carpal tunnel release History of hysterectomy (1976) With cystocele and rectocele repairs. History of cardiac catheterization With stent x3. History of cystoscopy With ureteral stents for kidney stones. History of colonoscopy Family History Family History Father Renal cell carcinoma Acute myocardial infarction Cerebrovascular accident Colon polyp Heart disease Hypertension Mother Lung cancer Acute myocardial infarction Cerebrovascular accident Depression Heart disease Hypertension Son Asthma Social History Social History Social History: Patient is retired. 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 She had 1 son who at 50 years old heart attack. She has a 2nd son who is still living and he was her surrogate decision maker. To smoke 1 pack of cigarettes per day for about 30 years. She quit smoking in 1995. She denies any alcohol use or illicit substance use. She is living in [facility]. Surrogate medical decision maker: Dong Maher, son. Code status: DNR/DNI Smoking packs per day: 0.5 Smoking cigarettes per day: 10.0 Years smoked: 10 Smoking pack-years: 5.00 Smoking status: Former smoker Second hand tobacco smoke exposure: No Alcohol intake: never Substance use: never Lack of Transportation: No Lack of Food: Never True Current Housing: I Have Housing Concerned About Future Housing: No Difficulty Paying Gas/Electric Bills: No Difficulty Paying for Meds: No Currently Unemployed: No Education: High School Diploma/GED Difficulty w/ Childcare or Family Care: No Living arrangements: alone Additional living arrangements comments: , lives in [place]. 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 Spiritual care concerns: No Agree to blood products: Yes Meds Home Medications and Allergies Home Medications ?Medication ?Instructions ?Recorded ?Confirmed ?Type atorvastatin 40 mg tablet 40 mg PO DAILY #90 tabs 02/1402/26/25 Rx bupropion HCl 150 mg 24 hr tablet, 150 mg PO QAM #90 t abs 03/11/23 02/26/25 Rx extended release diclofenac sodium 1 % topical gel 2 g topical BID PRN knee pain #200 03/11/23 02/26/25 Rx (Voltaren Arthritis Pain) grams levetiracetam 500 mg tablet 500 mg PO Q12H #180 tabs 1 05/12/22 02/26/25 Rx mirtazapine 30 mg tablet 30 mg PO QHS #90 tabs 02/26/25 Rx pantoprazole 40 mg tablet,delayed 40 mg PO QAM #90 tab s 03/11/23 02/26/25 Rx release cyclobenzaprine 5 mg tablet 5 mg PO TID PRN muscle spa sm #10 06/03/23 02/26/25 Rx tabs escitalopram oxalate 10 mg tablet 10 mg PO DAILY #30 t abs 06/17/23 02/26/25 Rx dicyclomine 20 mg tablet 20 mg PO TID #90 tabs 01/17/25 Rx Held on 10/14/24. Instructions: Patient Condition acetaminophen 325 mg capsule 650 mg PO QID PRN pain 02/26/25 History ergocalciferol (vitamin D2) 1,250 1,250 mcg PO WEEKLY 03/11/24 02/26/25 History mcg (50,000 unit) capsule buspirone 5 mg tablet 5 mg PO TID 07/13/24 5 History hydrocodone 5 mg-acetaminophen 325 1 tablet PO Q6H PRN pain #14 tabs 08/04/24 02/26/25 Rx mg tablet budesonide 9 mg tablet,delayed and 9 mg PO DAILY #30 e a 06/12/25 12/14/25 Rx extended release ropinirole 1 mg tablet 1 mg PO BID #180 tabs 02/26/25 Rx diclofenac sodium 1 % topical gel 2 g topical QID #50 grams 01/17/25 02/26/25 Rx (Arthritis Pain (diclofenac)) acyclovir 400 mg tablet 400 mg PO TID 7 days #21 tab s 02/22/25 02/26/25 Rx Allergies Allergy/AdvReac Type Severity Reaction Status Date / Time cortisone Allergy Intermediate Dyspnea / Verified 02/26/25 09:15 SOB Penicillins Allergy Intermediate Dyspnea / Verified 02/26/25 09:15 SOB ceftriaxone (From Rocephin) Allergy Difficulty Verified 02/26/25 09:15 Breathing Vital Signs Vital Signs Temp Pulse Resp BP Pulse Ox O2 Del Method 02/27/25 12:30 118 H 116/61 02/27/25 12:15 118 H 97/53 L 02/27/25 12:00 121 H 02/27/25 12:00 93 131/69 02/27/25 11:45 116 H 117/67 02/27/25 11:30 118 H 105/66 02/27/25 11:15 88 127/75 02/27/25 11:00 74 106/65 02/27/25 10:45 79 116/59 L 02/27/25 10:30 78 122/61 02/27/25 10:15 63 105/56 L 02/27/25 10:00 78 127/61 02/27/25 09:45 94 132/67 02/27/25 09:30 100 134/63 02/27/25 09:21 86 139/103 H 02/27/25 08:59 98.2 F 98 18 146/70 H 96 02/27/25 08:29 82 02/27/25 08:29 Room Air 02/27/25 06:00 98.2 F 95 18 147/70 H 97 02/27/25 04:00 71 02/27/25 00:00 82 02/26/25 22:00 97.9 F 100 16 131/50 L 95 02/26/25 21:21 95 Room Air 02/26/25 20:00 Room Air 02/26/25 20:00 111 H Exam 2 Narrative: GENERAL APPEARANCE: elderly but WD/WN female in NAD HEENT: normocephalic, atraumatic, normal conjunctiva and sclera, nares patient NECK: no lymphadenopathy, thyromegaly, or JVD MOUTH: normal lips, teeth, and gums CARDIOVASCULAR: RRR, normal S1 and S2, no rub RESPIRATORY: clear anteriorly ABDOMEN: soft, nontender, nondistended, positive bowel sounds present EXTREMITIES: no evidence of cyanosis, clubbing; trace edema NEUROLOGICAL: awake and alert; CN II - XII intact; no focal deficits Results Lab Results 02/27/25 04:28 02/27/25 04:28 Lab results: Most recent lab results Calcium 8.7 mg/dL (8.4-10.2) 02/27/25 04:28 Phosphorus 5.5 mg/dL (2.5-4.5) H 02/27/25 04:28 Magnesium 2.1 mg/dL (1.6-2.3) 02/27/25 04:28
[2025-02-27] MEDS: ATORVASTATIN 40 MG TABLET PO (13:32)
[2025-02-27] MEDS: PANTOPRAZOLE 40 MG TABLET PO (13:33)
[2025-02-27] MEDS: DOCUSATE SODIUM 100 MG CAPSULE PO ×2 (13:33→17:45)
[2025-02-27] MEDS: ESCITALOPRAM OXALATE 10 MG TABLET PO (13:33)
[2025-02-27] MEDS: buPROPion HCL XL (24 HR) 150 MG TABCR PO (13:33)
[2025-02-27] MEDS: MIRTAZAPINE 30 MG TABLET PO (21:12)
[2025-02-27] MEDS: levoFLOXacin 250 MG/D5W 50 ML 250 MG/50 ML BAG 50 MG IVPB (21:16)
[2025-02-28] VITALS (9 sets, daily range): BP systolic 139–150; BP diastolic 50–76; PULSE 76–117; RESP 16; TEMP 36.5–36.6; O2SAT 94–98
[2025-02-28 05:07] LABS: Hematocrit 33.1 % (37.0-47.0); Hemoglobin 10.0 g/dL (12.0-15.0); Immature Granulocyte Percent A 4.1 % (0-0.5); Lymphocytes Absolute Auto 1.54 K/mm3 (0.9-3.2); Mean Corpuscular HGB Conc 30.2 g/dl (32-36); Mean Corpuscular Hemoglobin 29.7 pg (26-34); Mean Corpuscular Volume 98.2 fl (80-100); Nucleated Red Blood Cells Absolute Auto 0.000 K/mm3 (0.0-0.012); Nucleated Red Blood Cells Perc 0.0 % (0.0-0.2); Platelet Count Result 303 k/mm3 (150-375); Red Blood Count 3.37 M/mm3 (4.2-5.4); White Blood Count 8.3 K/mm3 (4.5-10.0)
[2025-02-28 05:37] LABS: Anion Gap 6 mmol/L (4-12); Blood Urea Nitrogen 13 mg/dL (7-17); Calcium 9.1 mg/dL (8.4-10.2); Carbon Dioxide 27 mmol/L (22-30); Chloride 107 mmol/L (98-107); Estimated CRCL calculation 10 ml/min; Estimated Glomerular Filt Rate 10; Glucose 88 mg/dL (65-110); Potassium 3.7 mmol/L (3.4-5.0); Sodium 140 mmol/L (137-145)
--- NOTE | 2025-02-28 08:22 | P.CDI_ITS ---
CDI Query Clarification Request 1)Please clarify the underlying possible/probable/suspected cause for the alte red mental status in the progress notes: ? Encephalopathy (metabolic, COVID, hepatic, hypoxic, uremic, Wernicke, other) ? Neurologic condition (CVA/TIA/NPH/seizure) ? Electrolyte/metabolic imbalance/dehydration ? Infectious process (i.e. meningitis/encephalitis) ? Psychiatric condition ? Respiratory condition ? Dementia ? Other, please specify ? Unknown/unable to determine 2) The current assessment and plan mentions a pressure ulcer; however the specific anatomical locations are not currently documented in the physician note. Wound care nursing notes from 02/27/25 identify three stage 3 pressure injuries located at the left heel, right heel and right ischium. To ensure coding accuracy and reflect the patiens full severity of illness for 2024 reporting, could you please clarify the specific sites of the injuries you are managing in your next progress note? Assessment and Plan (1) Altered mental status: Qualifiers: Altered mental status type: unspecified Qualified Code(s): R41.82 - Altered mental status, unspecified Code(s): R41.82 - Altered mental status, unspecified Status: Acute Assessment and Plan: - presented with visual hallucinations - CT head no acute process - may be secondary to UTI, management as below - patient recently started on acyclovir which is known to cause confusion especially in patients with renal failure - hold - monitor mental status (2) UTI (urinary tract infection): Code(s): N39.0 - Urinary tract infection, site not specified Status: Acute Assessment and Plan: - UA with1+ blood, 3+ LE >100 WBC, many squamous - afebrile, no leukocytosis - continue IV Levaquin (PCN and cephalosporin allergy) - urine culture pending (3) End-stage renal disease on hemodialysis: Code(s): N18.6 - End stage renal disease; Z99.2 - Dependence on renal dialysis Status: Acute Assessment and Plan: - on dialysis - nephrology consulted, appreciate assistance (4) CHF (congestive heart failure): Code(s): I50.9 - Heart failure, unspecified Status: Acute Assessment and Plan: Chest x-ray pending Managed through dialysis (5) Type 2 diabetes mellitus with diabetic chronic kidney disease: Qualifiers: Chronic kidney disease stage: on chronic dialysis Diabetes mellitus residential insulin use: without rn long term care use Qualified Code(s): E11.22 - Type 2 diabetes mellitus with diabetic chronic kidney disease; N18.6 - End stage renal disease; Z99.2 - Dependence on renal dialysis Code(s): E11.22 - Type 2 diabetes mellitus with diabetic chronic kidney disease Status: Acute Assessment and Plan: [place] sev[facility] HS SSI Not on home medications (6) Seizure: Code(s): R56.9 - Unspecified convulsions Status: Chronic Assessment and Plan: -Continue home Keppra (7) Anemia: Code(s): D64.9 - Anemia, unspecified Status: Acute Assessment and Plan: - Hgb 9.0. Has anemia of chronic disease - monitor CBC (8) Pressure ulcer: Code(s): L89.90 - Pressure ulcer of unspecified site, unspecified stage Status: Acute Assessment and Plan: - stage III ulcer, consistent with pressure. HSV testing negative. - wound care following <Karena Douglas RN - Last Filed: 02/28/25 08:32> Clarified Diagnosis Clarified Diagnosis: - acute metabolic encephalopathy secondary to UTI and side effects from acyclovir - pressure injuries of the at the left heel, right heel and right ischium <MAYRA Martinez - Last Filed: 02/28/25 12:17>
[2025-02-28] MEDS: buPROPion HCL XL (24 HR) 150 MG TABCR PO (09:42)
[2025-02-28] MEDS: BUDESONIDE 3 MG CAP.SR.24H 9 MG PO (09:42)
[2025-02-28] MEDS: PANTOPRAZOLE 40 MG TABLET PO (09:42)
[2025-02-28] MEDS: ESCITALOPRAM OXALATE 10 MG TABLET PO (09:42)
[2025-02-28] MEDS: DOCUSATE SODIUM 100 MG CAPSULE PO ×2 (09:42→17:15)
[2025-02-28] MEDS: ATORVASTATIN 40 MG TABLET PO (09:42)
[2025-02-28] MEDS: INSULIN ASPART (*BKC) 100 UNITS/ML SUB-Q (12:05)
--- NOTE | 2025-02-28 12:05 | P.PNNP_ITS ---
Progress Note: A&P Assessment and Plan (1) End stage renal disease: Code(s): N18.6 - End stage renal disease Status: Chronic Assessment and Plan: * HD tomorrow * continue M/W/F outpatient dialysis schedule * follow electrolytes, volume status, and clearance (2) Altered mental status: Qualifiers: Altered mental status type: unspecified Qualified Code(s): R41.82 - Altered mental status, unspecified Code(s): R41.82 - Altered mental status, unspecified Status: Acute Assessment and Plan: * as noted by visual hallucinations * head CT scan negative * secondary to infection (UTI) versus medication (acyclovir) versus other(?) * follow mentation (3) UTI (urinary tract infection): Code(s): N39.0 - Urinary tract infection, site not specified Status: Acute Assessment and Plan: * admission UA highly suggestive * follow-up on urine culture * on antibiotics (4) Hypertension: Code(s): I10 - Essential (primary) hypertension Status: Chronic Assessment and Plan: * reasonable control at this time * resume home medications * follow trend of hemodynamics (5) Anemia: Code(s): D64.9 - Anemia, unspecified Status: Deleted Assessment and Plan: * due to ESRD * Retacrit with dialysis * follow trend of H/H (6) Crohn's disease: Code(s): K50.90 - Crohn's disease, unspecified, without complications Status: Chronic Assessment and Plan: * chronic issue * loose stools/diarrhea at baseline * continue supportive therapy Will continue to follow. L Subjective Date/time seen: 02/28/25 12:05 Interval history: Follow-up for end stage renal disease on hemodialysis. Tolerated dialysis treatment yesterday without any issues or problems; no further hallucination reported per patient; no apparent dsitress voiced when seen; no issues/events overnight or earlier this morning. Exam 2 Narrative: General: elderly female in NAD Heart: tachycardic at times; normal S1 and S2; no rub Lungs: clear anteriorly; decreased at bases Abdomen: soft, nontender, nondistended, positive bowel sounds Extremities: no cyanosis or clubbing; no edema Skin: warm and dry Objective Data Vital Signs Vital Signs: Vital Signs Temp Pulse Resp BP Pulse Ox O2 Del Method 02/28/25 12:00 117 H 02/28/25 11:43 Room Air 02/28/25 10:55 Room Air 02/28/25 09:42 85 02/28/25 09:42 85 16 95 Room Air 02/28/25 06:00 97.7 F 101 H 16 148/58 H 94 02/28/25 04:00 111 H 02/28/25 00:00 81 02/27/25 22:00 98.1 F 102 H 18 111/46 L 98 02/27/25 20:00 102 H Intake/Output Intake/Output: Intake & Output 02/25/25 02/26/25 02/27/25 02/28/25 23:59 23:59 23:59 23:59 Intake Total 650 880 405 Output Total 0 1000 Balance 650 -120 405 Meds/Results Medications: Active Medications Generic Name Dose Route Start Last Admin Trade Name Freq PRN Reason Stop Dose Admin Acetaminophen 650 mg 02/26/25 12:20 02/28/25 12:11 Acetaminophen 325 Mg Tablet PO 650 mg Q4H PRN Administration Mild Pain (1-3) or Fever Hydrocodone Bitart/Acetaminophen 1 tab 02/26/25 19:56 02/27/25 21:26 Hydrocodone/Acetaminophen (*Crx) 5-325 Mg Tablet PO 1 tab Q6H PRN Administration Pain 4-6 Atorvastatin Calcium 40 mg 02/27/25 09:00 02/28/25 09:42 Atorvastatin 40 Mg Tablet PO 40 mg DAILY SUKI Administration Budesonide 9 mg 02/28/25 09:00 02/28/25 09:42 Budesonide 3 Mg Cap.Sr.24h PO 9 mg QAM SUKI Administration Bupropion HCl 150 mg 02/27/25 09:00 02/28/25 09:42 Bupropion Hcl Xl (24 Hr) 150 Mg Tabcr PO 150 mg QAM SUKI Administration Buspirone HCl 5 mg 02/27/25 09:00 02/28/25 17:15 Buspirone Hcl 5 Mg Tablet PO 5 mg TID SUKI Administration Cyclobenzaprine HCl 5 mg 02/26/25 19:56 02/27/25 05:25 Cyclobenzaprine Hcl 5 Mg Tablet PO 5 mg TID PRN Administration Muscle Spasm Dextrose 12.5 gm 02/26/25 21:48 Dextrose 50% 25 Gm/50 Ml Syringe IV PUSH PRN PRN Hypoglycemia Protocol Docusate Sodium 100 mg 02/26/25 17:00 02/28/25 17:15 Docusate Sodium 100 Mg Capsule PO 100 mg BID SUKI Administration Escitalopram Oxalate 10 mg 02/27/25 09:00 02/28/25 09:42 Escitalopram Oxalate 10 Mg Tablet PO 10 mg DAILY SUKI Administration Glucagon 1 mg 02/26/25 21:48 Glucagon For Inj 1 Mg Vial IM PRN PRN Hypoglycemia Protocol Glucose 15 gm 02/26/25 21:48 Glucose Oral Gel 15 Gm Of Glucse In 37.5 Gm Tube PO PRN PRN Hypoglycemia Protocol Heparin Sodium (Porcine) 5,000 units 02/27/25 21:00 02/28/25 09:49 Heparin Sodium 5,000 Units/Ml Vial SUB-Q 5,000 units Q12HR SUKI Administration Albumin Human 50 mls @ 999 mls/hr 02/26/25 20:12 Albutein IVPB 03/28/25 20:11 Q10M PRN HYPOTENSION Dextrose 1,000 mls @ 100 mls/hr 02/26/25 21:48 Dextrose 5% 1,000 Ml IVPB PRN PRN Hypoglycemia Protocol Insulin Aspart 2 - 5 units 02/27/25 08:00 02/28/25 17:11 Insulin Aspart (*Bkc) 100 Units/Ml SUB-Q Not Given TIDWM SUKI Protocol Levetiracetam 500 mg 02/26/25 20:00 02/28/25 09:42 Levetiracetam 500 Mg Tablet PO 500 mg Q12HR SUKI Administration Levofloxacin 500 mg 03/01/25 21:00 Levofloxacin 500 Mg Tablet PO 03/03/25 21:01 Q48H SUKI Mirtazapine 30 mg 02/26/25 21:00 02/27/25 21:12 Mirtazapine 30 Mg Tablet PO 30 mg QHS SUKI Administration Ondansetron HCl 4 mg 02/26/25 12:20 Ondansetron Inj 4 Mg/2 Ml Vial IV PUSH Q4H PRN Nausea Pantoprazole Sodium 40 mg 02/27/25 09:00 02/28/25 09:42 Pantoprazole 40 Mg Tablet PO 40 mg QAM SUKI Administration Ropinirole HCl 1 mg 02/27/25 09:00 02/28/25 17:15 Ropinirole Hcl 1 Mg Tablet PO 1 mg BID SUKI Administration Radiology Results: ITS Impressions Head CT 02/26/25 14:42 Impression: 1.No acute intracranial abnormality. Chest X-Ray 02/27/25 07:57 IMPRESSION: 1. Mild atelectatic appearing changes and possible small left base infiltrate. Labs Labs: Laboratory Tests 02/28/25 04:48 02/28/25 04:48 Calcium 9.1
[2025-02-28] MEDS: ACETAMINOPHEN 325 MG TABLET 650 MG PO (12:11)
--- NOTE | 2025-02-28 12:17 | P.PNIM_ITS ---
Assessment and Plan Assessment and Plan (1) Altered mental status: Qualifiers: Altered mental status type: unspecified Qualified Code(s): R41.82 - Altered mental status, unspecified Code(s): R41.82 - Altered mental status, unspecified Status: Acute Assessment and Plan: Acute metabolic encephalopathy - presented with visual hallucinations - CT head no acute process - likely secondary to inappropriate acyclovir dosing in renal failure patient vs. UTI - monitor mental status - now appears near baseline (2) UTI (urinary tract infection): Code(s): N39.0 - Urinary tract infection, site not specified Status: Acute Assessment and Plan: - UA with 1+ blood, 3+ LE >100 WBC, many squamous - afebrile, no leukocytosis - patient denies specific urinary symptoms, but hallucinations did stop after starting Levaquin - continue Levaquin (PCN and cephalosporin allergy), transition to PO - urine culture pending (3) End-stage renal disease on hemodialysis: Code(s): N18.6 - End stage renal disease; Z99.2 - Dependence on renal dialysis Status: Acute Assessment and Plan: - on dialysis - nephrology consulted, appreciate assistance (4) Seizure: Code(s): R56.9 - Unspecified convulsions Status: Chronic Assessment and Plan: -Continue home Keppra (5) Anemia: Code(s): D64.9 - Anemia, unspecified Status: Acute Assessment and Plan: - Hgb 10.0. Has anemia of chronic disease - monitor CBC (6) Pressure ulcer: Code(s): L89.90 - Pressure ulcer of unspecified site, unspecified stage Status: Acute Assessment and Plan: - stage III ulcer of the R ischium - consistent with pressure. HSV testing negative. Acyclovir stopped. Micon powder for groin intertrigo. - also with pressure injuries of left and right heel - wound care following Plan DVT prophylaxis: heparin subQ Code status: full code Dispo: lives in [place], likely needs SNF Medical Record Review I have reviewed the following patient records and this information was taken into consideration when formulating the assessment and plan.: previous labs Subjective Date/time seen: 02/28/25 12:17 Interval history: Patient seen and examined on commode. Patient states hallucinations have resolved. Still denies urinary symptoms, but does not make much urine. Patient will likely require SNF placement. Review of Systems Review of Systems: All systems reviewed & are unremarkable except as noted in HPI and below Exam Narrative: General: NAD Eyes: EOMI ENT: neck supple Cardiovascular: Regular rate and rhythm Respiratory: Clear to auscultation, respirations even and unlabored on RA Gastrointestinal: Soft, non tender Genitourinary: no suprapubic tenderness Musculoskeletal: No edema Skin: warm, dry Neuro: Alert and oriented to self, place, time. Face symmetric, speech clear. Psych: Mood appropriate Objective Data Vital Signs Vital Signs: Vital Signs - 24 hr 02/27/25 12:30 02/27/25 12:45 02/27/25 12:59 Temperature Pulse Rate 118 H 80 85 Respiratory Rate Blood Pressure 116/61 106/54 L 117/62 Pulse Oximetry Oxygen Delivery 02/27/25 13:11 02/27/25 14:00 02/27/25 16:06 Temperature 98.6 F 97.8 F Pulse Rate 90 82 107 H Respiratory Rate 18 16 Blood Pressure 150/63 H 126/50 L Pulse Oximetry 95 99 Oxygen Delivery 02/27/25 20:00 02/27/25 22:00 02/28/25 00:00 Temperature 98.1 F Pulse Rate 102 H 102 H 81 Respiratory Rate 18 Blood Pressure 111/46 L Pulse Oximetry 98 Oxygen Delivery 02/28/25 04:00 02/28/25 06:00 02/28/25 09:42 Temperature 97.7 F Pulse Rate 111 H 101 H 85 Respiratory Rate 16 16 Blood Pressure 148/58 H Pulse Oximetry 94 95 Oxygen Delivery Room Air 02/28/25 09:42 02/28/25 10:55 02/28/25 11:43 Temperature Pulse Rate 85 Respiratory Rate Blood Pressure Pulse Oximetry Oxygen Delivery Room Air Room Air Intake/Output Intake/Output: Intake & Output 02/25/25 02/26/25 02/27/25 02/28/25 23:59 23:59 23:59 23:59 Intake Total 650 880 25 Output Total 0 1000 Balance 650 -120 25 Meds/Results Medications: Active Medications Generic Name Dose Route Start Last Admin Trade Name Freq PRN Reason Stop Dose Admin Acetaminophen 650 mg 02/26/25 12:20 02/28/25 12:11 Acetaminophen 325 Mg Tablet PO 650 mg Q4H PRN Administration Mild Pain (1-3) or Fever Hydrocodone Bitart/Acetaminophen 1 tab 02/26/25 19:56 02/27/25 21:26 Hydrocodone/Acetaminophen (*Crx) 5-325 Mg Tablet PO 1 tab Q6H PRN Administration Pain 4-6 Atorvastatin Calcium 40 mg 02/27/25 09:00 02/28/25 09:42 Atorvastatin 40 Mg Tablet PO 40 mg DAILY SUKI Administration Budesonide 9 mg 02/28/25 09:00 02/28/25 09:42 Budesonide 3 Mg Cap.Sr.24h PO 9 mg QAM SUKI Administration Bupropion HCl 150 mg 02/27/25 09:00 02/28/25 09:42 Bupropion Hcl Xl (24 Hr) 150 Mg Tabcr PO 150 mg QAM SUKI Administration Buspirone HCl 5 mg 02/27/25 09:00 02/28/25 12:06 Buspirone Hcl 5 Mg Tablet PO 5 mg TID SUKI Administration Cyclobenzaprine HCl 5 mg 02/26/25 19:56 02/27/25 05:25 Cyclobenzaprine Hcl 5 Mg Tablet PO 5 mg TID PRN Administration Muscle Spasm Dextrose 12.5 gm 02/26/25 21:48 Dextrose 50% 25 Gm/50 Ml Syringe IV PUSH PRN PRN Hypoglycemia Protocol Docusate Sodium 100 mg 02/26/25 17:00 02/28/25 09:42 Docusate Sodium 100 Mg Capsule PO 100 mg BID SUKI Administration Escitalopram Oxalate 10 mg 02/27/25 09:00 02/28/25 09:42 Escitalopram Oxalate 10 Mg Tablet PO 10 mg DAILY SUKI Administration Glucagon 1 mg 02/26/25 21:48 Glucagon For Inj 1 Mg Vial IM PRN PRN Hypoglycemia Protocol Glucose 15 gm 02/26/25 21:48 Glucose Oral Gel 15 Gm Of Glucse In 37.5 Gm Tube PO PRN PRN Hypoglycemia Protocol Heparin Sodium (Porcine) 5,000 units 02/27/25 21:00 02/28/25 09:49 Heparin Sodium 5,000 Units/Ml Vial SUB-Q 5,000 units Q12HR SUKI Administration Albumin Human 50 mls @ 999 mls/hr 02/26/25 20:12 Albutein IVPB 03/28/25 20:11 Q10M PRN HYPOTENSION Dextrose 1,000 mls @ 100 mls/hr 02/26/25 21:48 Dextrose 5% 1,000 Ml IVPB PRN PRN Hypoglycemia Protocol Levofloxacin/Dextrose 250 mg in 50 mls @ 50 mls/hr 02/27/25 22:00 02/27/25 22:16 Levaquin 250 Mg/D5w 50 Ml IVPB Infused Q48H SUKI Infusion Insulin Aspart 2 - 5 units 02/27/25 08:00 02/28/25 12:05 Insulin Aspart (*Bkc) 100 Units/Ml SUB-Q 2 units TIDWM SUKI Administration Protocol Levetiracetam 500 mg 02/26/25 20:00 02/28/25 09:42 Levetiracetam 500 Mg Tablet PO 500 mg Q12HR SUKI Administration Mirtazapine 30 mg 02/26/25 21:00 02/27/25 21:12 Mirtazapine 30 Mg Tablet PO 30 mg QHS SUKI Administration Ondansetron HCl 4 mg 02/26/25 12:20 Ondansetron Inj 4 Mg/2 Ml Vial IV PUSH Q4H PRN Nausea Pantoprazole Sodium 40 mg 02/27/25 09:00 02/28/25 09:42 Pantoprazole 40 Mg Tablet PO 40 mg QAM SUKI Administration Ropinirole HCl 1 mg 02/27/25 09:00 02/28/25 09:42 Ropinirole Hcl 1 Mg Tablet PO 1 mg BID SUKI Administration Radiology Results: ITS Impressions Head CT 02/26/25 14:42 Impression: 1.No acute intracranial abnormality. Chest X-Ray 02/27/25 07:57 IMPRESSION: 1. Mild atelectatic appearing changes and possible small left base infiltrate. Labs Labs: Laboratory Results - last 24 hr 02/27/25 02/27/25 02/28/25 13:42 16:38 04:48 WBC 8.3 RBC 3.37 L Hgb 10.0 L Hct 33.1 L MCV 98.2 MCH 29.7 MCHC 30.2 L RDW 15.1 H Plt Count 303 MPV 8.3 Immature Gran % (Auto) 4.1 H Neut % (Auto) 63.4 Lymph % (Auto) 18.5 [place] % (Auto) 10.8 H Eos % (Auto) 2.8 Baso % (Auto) 0.4 Lymph # (Auto) 1.54 [place] # (Auto) 0.9 H Eos # (Auto) 0.2 Baso # (Auto) 0.0 Abs Immat Gran (auto) 0.34 H Absolute Neuts (auto) 5.3 Absolute Nucleated RBC 0.000 Nucleated RBC % 0.0 Sodium 140 Potassium 3.7 Chloride 107 Carbon Dioxide 27 Anion Gap 6 BUN 13 D Creatinine 4.20 H Estim Creat Clear Calc 10 Estimated GFR 10 L Glucose 88 POC Capillary Glucose 77 98 Calcium 9.1 02/28/25 02/28/25 07:31 11:36 WBC RBC Hgb Hct MCV MCH MCHC RDW Plt Count MPV Immature Gran % (Auto) Neut % (Auto) Lymph % (Auto) [place] % (Auto) Eos % (Auto) Baso % (Auto) Lymph # (Auto) [place] # (Auto) Eos # (Auto) Baso # (Auto) Abs Immat Gran (auto) Absolute Neuts (auto) Absolute Nucleated RBC Nucleated RBC % Sodium Potassium Chloride Carbon Dioxide Anion Gap BUN Creatinine Estim Creat Clear Calc Estimated GFR Glucose POC Capillary Glucose 85 206 H Calcium Quality VTE Prophylaxis VTE prophylaxis: pharmacologic ordered
[2025-02-28] MEDS: MIRTAZAPINE 30 MG TABLET PO (21:49)
[2025-03-01] VITALS (24 sets, daily range): BP systolic 100–181; BP diastolic 50–109; PULSE 68–119; RESP 16–18; TEMP 36.2–37; O2SAT 96–98
[2025-03-01 05:41] LABS: Hematocrit 32.0 % (37.0-47.0); Hemoglobin 9.7 g/dL (12.0-15.0); Immature Granulocyte Percent A 3.7 % (0-0.5); Lymphocytes Absolute Auto 1.65 K/mm3 (0.9-3.2); Mean Corpuscular HGB Conc 30.3 g/dl (32-36); Mean Corpuscular Hemoglobin 29.5 pg (26-34); Mean Corpuscular Volume 97.3 fl (80-100); Nucleated Red Blood Cells Absolute Auto 0.020 K/mm3 (0.0-0.012); Nucleated Red Blood Cells Perc 0.3 % (0.0-0.2); Platelet Count Result 299 k/mm3 (150-375); Red Blood Count 3.29 M/mm3 (4.2-5.4); White Blood Count 7.9 K/mm3 (4.5-10.0)
[2025-03-01 06:09] LABS: Anion Gap 9 mmol/L (4-12); Blood Urea Nitrogen 23 mg/dL (7-17); Calcium 9.1 mg/dL (8.4-10.2); Carbon Dioxide 27 mmol/L (22-30); Chloride 109 mmol/L (98-107); Estimated CRCL calculation 7 ml/min; Estimated Glomerular Filt Rate 6; Glucose 89 mg/dL (65-110); Potassium 4.4 mmol/L (3.4-5.0); Sodium 145 mmol/L (137-145)
[2025-03-01] MEDS: EPOETIN ALFA-EPBX 10,000 UNITS/ML VIAL 10000 UNITS IV PUSH (09:38)
--- NOTE | 2025-03-01 09:49 | PCPTNOTE ---
The patient treatment was not able to be completed due to patient out of room for dialysis. Will plan to continue treatment per plan of care.
--- NOTE | 2025-03-01 12:40 | P.PNNP_ITS ---
Progress Note: A&P Assessment and Plan (1) End stage renal disease: Code(s): N18.6 - End stage renal disease Status: Chronic Assessment and Plan: * HD today * continue M/W/F outpatient dialysis schedule * follow electrolytes, volume status, and clearance (2) Altered mental status: Qualifiers: Altered mental status type: unspecified Qualified Code(s): R41.82 - Altered mental status, unspecified Code(s): R41.82 - Altered mental status, unspecified Status: Acute Assessment and Plan: * clinical improvement noted * as noted by visual hallucinations * head CT scan negative * though to be secondary to infection (UTI) versus medication (acyclovir) * follow mentation (3) UTI (urinary tract infection): Code(s): N39.0 - Urinary tract infection, site not specified Status: Acute Assessment and Plan: * admission UA highly suggestive * follow-up on urine culture - no growth noted * however, improvement in mentation noted with antibiotic therapy * on antibiotics (4) Hypertension: Code(s): I10 - Essential (primary) hypertension Status: Chronic Assessment and Plan: * reasonable control at this time * resume home medications * follow trend of hemodynamics (5) Anemia: Code(s): D64.9 - Anemia, unspecified Status: Chronic Assessment and Plan: * due to ESRD * Epogen with dialysis * follow trend of H/H (6) Crohn's disease: Code(s): K50.90 - Crohn's disease, unspecified, without complications Status: Chronic Assessment and Plan: * chronic issue * loose stools/diarrhea at baseline * continue supportive therapy Will continue to follow. L Subjective Date/time seen: 03/01/25 12:40 Interval history: Follow-up for end stage renal disease on hemodialysis. Tolerating dialysis treatment at the time of my visit (seen on HD at 12:30pm); seems to be resting comfortably when seen; no apparent distress voiced other than fatigue; no other issues/events overnight or earlier this morning. Exam 2 Narrative: General: elderly female in NAD Heart: tachycardic at times; normal S1 and S2; no rub Lungs: clear anteriorly; decreased at bases Abdomen: soft, nontender, nondistended, positive bowel sounds Extremities: no cyanosis or clubbing; no edema Skin: warm and intact Objective Data Vital Signs Vital Signs: Vital Signs Temp Pulse Resp BP Pulse Ox O2 Del Method 03/01/25 12:30 95 119/61 03/01/25 12:15 93 130/54 L 03/01/25 12:00 93 132/60 03/01/25 11:45 82 104/70 03/01/25 11:30 96 131/100 H 03/01/25 11:15 89 143/66 H 03/01/25 11:00 88 140/60 03/01/25 10:45 86 143/109 H 03/01/25 10:30 92 127/67 03/01/25 10:15 81 126/56 L 03/01/25 10:00 88 136/78 03/01/25 09:45 119 H 173/88 H 03/01/25 09:30 93 155/73 H 03/01/25 09:15 82 143/71 H 03/01/25 09:03 111 H 181/96 H 03/01/25 08:17 98.6 F 75 16 119/92 H 98 03/01/25 08:00 76 03/01/25 06:26 97.6 F 73 16 100/50 L 96 03/01/25 04:00 78 03/01/25 00:00 75 02/28/25 21:56 97.7 F 80 16 139/50 L 96 02/28/25 21:20 Room Air 02/28/25 20:00 87 02/28/25 16:00 105 H 02/28/25 13:55 97.8 F 76 16 150/76 H 98 Intake/Output Intake/Output: Intake & Output 02/26/25 02/27/25 02/28/25 03/01/25 23:59 23:59 23:59 23:59 Intake Total 650 880 405 300 Output Total 0 1000 Balance 650 -120 405 300 Meds/Results Medications: Active Medications Generic Name Dose Route Start Last Admin Trade Name Freq PRN Reason Stop Dose Admin Acetaminophen 650 mg 02/26/25 12:20 02/28/25 12:11 Acetaminophen 325 Mg Tablet PO 650 mg Q4H PRN Administration Mild Pain (1-3) or Fever Hydrocodone Bitart/Acetaminophen 1 tab 02/26/25 19:56 02/27/25 21:26 Hydrocodone/Acetaminophen (*Crx) 5-325 Mg Tablet PO 1 tab Q6H PRN Administration Pain 4-6 Atorvastatin Calcium 40 mg 02/27/25 09:00 02/28/25 09:42 Atorvastatin 40 Mg Tablet PO 40 mg DAILY SUKI Administration Budesonide 9 mg 02/28/25 09:00 02/28/25 09:42 Budesonide 3 Mg Cap.Sr.24h PO 9 mg QAM SUKI Administration Bupropion HCl 150 mg 02/27/25 09:00 02/28/25 09:42 Bupropion Hcl Xl (24 Hr) 150 Mg Tabcr PO 150 mg QAM SUKI Administration Buspirone HCl 5 mg 02/27/25 09:00 03/01/25 12:32 Buspirone Hcl 5 Mg Tablet PO Not Given TID SUKI Cyclobenzaprine HCl 5 mg 02/26/25 19:56 02/27/25 05:25 Cyclobenzaprine Hcl 5 Mg Tablet PO 5 mg TID PRN Administration Muscle Spasm Dextrose 12.5 gm 02/26/25 21:48 Dextrose 50% 25 Gm/50 Ml Syringe IV PUSH PRN PRN Hypoglycemia Protocol Docusate Sodium 100 mg 02/26/25 17:00 02/28/25 17:15 Docusate Sodium 100 Mg Capsule PO 100 mg BID SUKI Administration Epoetin Kelechi-epbx 10,000 units 03/01/25 18:00 03/01/25 09:38 Epoetin Kelechi-Epbx 10,000 Units/Ml Vial IV PUSH 03/01/25 18:01 10,000 units ONCE ONE Administration Escitalopram Oxalate 10 mg 02/27/25 09:00 02/28/25 09:42 Escitalopram Oxalate 10 Mg Tablet PO 10 mg DAILY SUKI Administration Glucagon 1 mg 02/26/25 21:48 Glucagon For Inj 1 Mg Vial IM PRN PRN Hypoglycemia Protocol Glucose 15 gm 02/26/25 21:48 Glucose Oral Gel 15 Gm Of Glucse In 37.5 Gm Tube PO PRN PRN Hypoglycemia Protocol Heparin Sodium (Porcine) 5,000 units 02/27/25 21:00 02/28/25 21:49 Heparin Sodium 5,000 Units/Ml Vial SUB-Q 5,000 units Q12HR SUKI Administration Albumin Human 50 mls @ 999 mls/hr 02/26/25 20:12 Albutein IVPB 03/28/25 20:11 Q10M PRN HYPOTENSION Dextrose 1,000 mls @ 100 mls/hr 02/26/25 21:48 Dextrose 5% 1,000 Ml IVPB PRN PRN Hypoglycemia Protocol Insulin Aspart 2 - 5 units 02/27/25 08:00 03/01/25 09:57 Insulin Aspart (*Bkc) 100 Units/Ml SUB-Q Not Given TIDWM SUKI Protocol Levetiracetam 500 mg 02/26/25 20:00 02/28/25 21:49 Levetiracetam 500 Mg Tablet PO 500 mg Q12HR SUKI Administration Levofloxacin 500 mg 03/01/25 21:00 Levofloxacin 500 Mg Tablet PO 03/03/25 21:01 Q48H SUKI Mirtazapine 30 mg 02/26/25 21:00 02/28/25 21:49 Mirtazapine 30 Mg Tablet PO 30 mg QHS SUKI Administration Ondansetron HCl 4 mg 02/26/25 12:20 Ondansetron Inj 4 Mg/2 Ml Vial IV PUSH Q4H PRN Nausea Pantoprazole Sodium 40 mg 02/27/25 09:00 02/28/25 09:42 Pantoprazole 40 Mg Tablet PO 40 mg QAM SUKI Administration Ropinirole HCl 1 mg 02/27/25 09:00 02/28/25 17:15 Ropinirole Hcl 1 Mg Tablet PO 1 mg BID SUKI Administration Radiology Results: ITS Impressions Head CT 02/26/25 14:42 Impression: 1.No acute intracranial abnormality. Chest X-Ray 02/27/25 07:57 IMPRESSION: 1. Mild atelectatic appearing changes and possible small left base infiltrate. Labs Labs: Laboratory Tests 03/01/25 05:01 03/01/25 05:01 Calcium 9.1 Microbiology 02/26/25 09:53 Urine - Urine Urine Culture - Final
--- NOTE | 2025-03-01 12:57 | PM.DS ---
DS: Admitting Diagnosis Discharge Date 03/01/2025 Admitting Diagnosis Altered mental status DS: Discharge Diagnosis Discharge Diagnosis (1) Altered mental status: Qualifiers: Altered mental status type: unspecified Qualified Code(s): R41.82 - Altered mental status, unspecified Code(s): R41.82 - Altered mental status, unspecified Status: Acute (2) UTI (urinary tract infection): Code(s): N39.0 - Urinary tract infection, site not specified Status: Acute (3) End-stage renal disease on hemodialysis: Code(s): N18.6 - End stage renal disease; Z99.2 - Dependence on renal dialysis Status: Acute (4) Seizure: Code(s): R56.9 - Unspecified convulsions Status: Chronic (5) Anemia: Code(s): D64.9 - Anemia, unspecified Status: Acute (6) Pressure ulcer: Code(s): L89.90 - Pressure ulcer of unspecified site, unspecified stage Status: Acute DS: Summary Hospital Course Reason for hospitalization: Altered mental status Hospital Course: This 79-year-old female with a complex medical history including end-stage renal disease on hemodialysis (MWF), diabetes mellitus, coronary artery disease, COPD, Crohn?s disease, and seizure disorder was admitted from assisted living on 02/26/25 for acute altered mental status with visual hallucinations. Initial evaluation revealed stable vital signs, no focal neurologic deficits, and a non-contrast CT head without acute findings. Laboratory studies were notable for ESRD at baseline, mild chronic anemia, and a urinalysis suggestive of infection with significant pyuria, though contaminated with many epithelial cells. She was afebrile and without leukocytosis. Given concern for UTI in the setting of altered mentation and limited antibiotic options due to penicillin and cephalosporin allergies, she was started on renally dosed levofloxacin. Acyclovir, which had been recently prescribed, was discontinued due to concern for medication-induced neurotoxicity in the setting of renal failure. Nephrology was consulted, and the patient resumed her hemodialysis schedule with good tolerance and improvement in mental status following dialysis. Her hallucinations resolved, and she returned to near baseline mentation over the subsequent 48 hours, supporting a diagnosis of acute metabolic encephalopathy likely multifactorial from possible UTI and inappropriate acyclovir dosing. Urine cultures remained pending at the time of documentation. Chest X-ray showed mild atelectasis with a possible small left basilar infiltrate, though she remained without respiratory symptoms and required no additional intervention. Her chronic conditions, including seizure disorder, hypertension, diabetes, anemia of chronic disease, and Crohn?s disease, were managed with continuation of home therapies and supportive care. She was also noted to have a stage III pressure ulcer of the right ischium and bilateral heel pressure injuries, for which wound care was consulted; HSV testing was negative, and topical therapy was initiated. DVT prophylaxis was provided with subcutaneous heparin. Given her functional status and care needs, discharge planning focused on transition to a [facility] facility for ongoing rehabilitation, wound care, and dialysis coordination. Urine culture never showed growth of bacteria - antibiotics have been discontinued at this time. She is otherwise hemodynamically stable and can be discharged at this time. She has been accepted at [facility] who can take her today. Plan for discharge at this time. Status at Discharge Overall status at discharge: patient is back to baseline Time Spent with Patient Time attestation: Total time spent providing and/or coordinating discharge services: 29 Exam Narrative: General: NAD Eyes: EOMI ENT: neck supple Cardiovascular: Regular rate and rhythm Respiratory: Clear to auscultation, respirations even and unlabored on RA Gastrointestinal: Soft, non tender Genitourinary: no suprapubic tenderness Musculoskeletal: No edema Skin: warm, dry Neuro: Alert and oriented to self, place, time. Face symmetric, speech clear. Psych: Mood appropriate DS: Data Data Completed and Pending Labs on day of discharge: Labs from last 24 hours 03/01/25 03/01/25 02/28/25 07:16 05:01 21:27 WBC 7.9 RBC 3.29 L Hgb 9.7 L Hct 32.0 L MCV 97.3 MCH 29.5 MCHC 30.3 L RDW 15.3 H Plt Count 299 MPV 8.5 Immature Gran % (Auto) 3.7 H Neut % (Auto) 62.0 Lymph % (Auto) 20.9 [place] % (Auto) 10.0 H Eos % (Auto) 2.9 Baso % (Auto) 0.5 Lymph # (Auto) 1.65 [place] # (Auto) 0.8 H Eos # (Auto) 0.2 Baso # (Auto) 0.0 Abs Immat Gran (auto) 0.29 H Absolute Neuts (auto) 4.9 Absolute Nucleated RBC 0.020 H Nucleated RBC % 0.3 H Sodium 145 Potassium 4.4 Chloride 109 H Carbon Dioxide 27 Anion Gap 9 BUN 23 H D Creatinine 6.27 H Estim Creat Clear Calc 7 Estimated GFR 6 L Glucose 89 POC Capillary Glucose 80 132 H Calcium 9.1 02/28/25 16:25 WBC RBC Hgb Hct MCV MCH MCHC RDW Plt Count MPV Immature Gran % (Auto) Neut % (Auto) Lymph % (Auto) [place] % (Auto) Eos % (Auto) Baso % (Auto) Lymph # (Auto) [place] # (Auto) Eos # (Auto) Baso # (Auto) Abs Immat Gran (auto) Absolute Neuts (auto) Absolute Nucleated RBC Nucleated RBC % Sodium Potassium Chloride Carbon Dioxide Anion Gap BUN Creatinine Estim Creat Clear Calc Estimated GFR Glucose POC Capillary Glucose 79 Calcium Discharge Plan Discharge Attending physician on discharge: Demarcus Martinez Consulting providers: Marcelle Howard; Gauri Bernal; Elbert Jones Discharging Clinician: Elbert Jones Anticipated Discharge Date/Time: 03/01/25 11:29 Patient Disposition: [facility] Activity: as tolerated Diet: regular Discharge Instructions: Discharge disposition: [facility] Take medications as prescribed Monitor blood pressures Take caution while standing, rising, or moving Change positions slowly taking a break between each position change If you standing feel dizzy sit back down and take a break Encouraged to continue with yearly vaccinations Return to the emergency department if you develop sudden shortness of breath, chest pain, nausea, vomiting, upset stomach or intractable diarrhea Return to the emergency department if you develop fever greater than 101.5 Follow-up with the primary care physician within 1-2 weeks Thank you for choosing [facility] for your healthcare needs Patient Instructions: Antibiotic Form Patient Language: Austrian Stand Alone Forms: General Discharge Information Follow-up/Referrals: Justen Singer MD [Primary Care Provider, Family Practice] Discharge Medications: Continued dicyclomine 20 mg tablet 20 mg PO TID Qty: 90 5RF budesonide 9 mg tablet,delayed and ext.release 9 mg PO DAILY Qty: 30 1RF escitalopram oxalate 10 mg tablet 10 mg PO DAILY Qty: 30 5RF acetaminophen 325 mg capsule 650 mg PO QID PRN (Reason: pain) ergocalciferol (vitamin D2) 1,250 mcg (50,000 unit) capsule 1,250 mcg PO WEEKLY Patient Comments: On Wednesdays cyclobenzaprine 5 mg tablet 5 mg PO TID PRN (Reason: muscle spasm) Qty: 10 0RF hydrocodone-acetaminophen 5-325 mg tablet 1 tablet PO Q6H PRN (Reason: pain) Qty: 14 0RF atorvastatin 40 mg tablet 40 mg PO DAILY Qty: 90 2RF bupropion HCl 150 mg tablet extended release 24 hr 150 mg PO QAM Qty: 90 1RF diclofenac sodium [Voltaren Arthritis Pain] 1 % gel 2 g topical BID PRN (Reason: knee pain) Qty: 200 5RF Rx Instructions: apply to single elbow, wrist or hand; for hand includes palm/fingers/back of hand levetiracetam 500 mg tablet 500 mg PO Q12H Qty: 180 1RF mirtazapine 30 mg tablet 30 mg PO QHS Qty: 90 1RF pantoprazole 40 mg tablet,delayed release (DR/EC) 40 mg PO QAM Qty: 90 1RF buspirone 5 mg tablet 5 mg PO TID ropinirole 1 mg tablet 1 mg PO BID Qty: 180 1RF Discontinued diclofenac sodium [Arthritis Pain (diclofenac)] 1 % gel 2 g topical QID Qty: 50 2RF Rx Instructions: Apply to bilateral feet daily as needed acyclovir 400 mg tablet 400 mg PO TID 7 Days Qty: 21 0RF Date of admission: 02/27/25 11:36 Primary Care Provider: Justen Singer Admitting Provider: Malissa Banda Attending physician on admission: Malissa Banda Condition: Stable Quality VTE Prophylaxis VTE prophylaxis: pharmacologic ordered
[2025-03-01] MEDS: BUDESONIDE 3 MG CAP.SR.24H 9 MG PO (13:36)
[2025-03-01] MEDS: ESCITALOPRAM OXALATE 10 MG TABLET PO (13:36)
[2025-03-01] MEDS: buPROPion HCL XL (24 HR) 150 MG TABCR PO (13:36)
[2025-03-01] MEDS: ATORVASTATIN 40 MG TABLET PO (13:36)
[2025-03-01] MEDS: PANTOPRAZOLE 40 MG TABLET PO (13:36)
[2025-03-01] MEDS: DOCUSATE SODIUM 100 MG CAPSULE PO (13:36)
== END 2025-03-01 16:09 | DRG 917 ==
LOC: ANHED 12:42 → ANH3MEDSUR 13:50 → ANH2MED 14:01
PROVIDERS: Internal Medicine Nephrology; Nurse Practitioner Gerontology; Physician Assistant; Admitting Provider Internal Medicine; Emergency Provider Family Medicine; PCP Family Medicine Adolescent Medicine; Visit Provider Physician Assistant
DX: T37.5X1A Poisoning by antiviral drugs, accidental (unintentional), initial encounter (principal); G92.8 Other toxic encephalopathy; L89.313 Pressure ulcer of right buttock, stage 3; L89.623 Pressure ulcer of left heel, stage 3; L89.613 Pressure ulcer of right heel, stage 3; N18.6 End stage renal disease; N39.0 Urinary tract infection, site not specified; I13.2 Hypertensive heart and chronic kidney disease with heart failure and with stage 5 chronic kidney disease, or end stage renal disease; I50.22 Chronic systolic (congestive) heart failure; K50.90 Crohn's disease, unspecified, without complications; E11.22 Type 2 diabetes mellitus with diabetic chronic kidney disease; E11.43 Type 2 diabetes mellitus with diabetic autonomic (poly)neuropathy; N25.0 Renal osteodystrophy; D63.1 Anemia in chronic kidney disease; K52.9 Noninfective gastroenteritis and colitis, unspecified; K21.9 Gastro-esophageal reflux disease without esophagitis; G25.81 Restless legs syndrome; G40.909 Epilepsy, unspecified, not intractable, without status epilepticus; G47.33 Obstructive sleep apnea (adult) (pediatric); I25.10 Atherosclerotic heart disease of native coronary artery without angina pectoris; E11.51 Type 2 diabetes mellitus with diabetic peripheral angiopathy without gangrene; Z99.2 Dependence on renal dialysis; Z89.422 Acquired absence of other left toe(s); Z89.421 Acquired absence of other right toe(s); Z90.5 Acquired absence of kidney; Z95.5 Presence of coronary angioplasty implant and graft; Z85.528 Personal history of other malignant neoplasm of kidney; Z87.891 Personal history of nicotine dependence; T37.5X5A Adverse effect of antiviral drugs, initial encounter
CPT/HCPCS: 36415; 70450; 71045; 80048; 80053; 81001; 82948; 83735; 84100; 85025; 85610; 85730; 86706; 87086; 87340; 93005; 96374; 97162; 97166; 99285; A9270; G0257; G0378; J1644; J1815; J1956; J7030; Q5105